=== PATIENT | female | born 1935 | race American Indian/Alaskan Native ===

== ENCOUNTER 2016-08-09 17:29 | Inpatient (IN) | payer MEDICARE ==
[2016-08-09 17:34] VITALS: BMI 16.6
--- NOTE | 2016-08-09 18:07 | ED PDOC ---
Arrival/HPI - General Historian: Patient <Sawyer Phipps - Last Filed: 08/09/16 19:44> - History of Present Illness Symptom Onset: Sudden Symptom Course: Improving Activities at Onset: Rest Context: Home <Samina Alejandro - Last Filed: 08/09/16 19:49> - General Chief Complaint: Syncope Time Seen by Provider: 08/09/16 17:47 - History of Present Illness Narrative History of Present Illness (Text): 08/09/16 18:04 This is an 80 yo F with an extensive PMH that includes HTN, HLD, afib on coumadin, renal cell cancer s/p nephrectomy that presents s/p witnessed syncopal episode. She states that she has been feeling weaker with decreased PO intake lately and this morning she stayed home from jehov[employer] witness to rest. She had friends visit her and while they were there she syncopized upon standing when getting out of bed. She states she remembers feeling dizzy with the room spinning. She also claims that she did not hit her head. Currently she feels back to baseline. Denies SEGUNDO, vision changes, numbness/tingling, chest pain, sob , nausea, vomiting or urinary symptoms. PMD: Amador Crum (Sawyer Phipps) Past Medical History - Provider Review Nursing Documentation Reviewed: Yes - Infectious Disease Hx of Infectious Diseases: None - Reproductive Menopause: Yes - Cardiac Hx Cardiac Disorders: Yes Hx Atrial Fibrillation: Yes Hx Hypertension: Yes - Pulmonary Hx Respiratory Disorders: No - Neurological Hx Neurological Disorder: No - HEENT Hx HEENT Disorder: No - Renal Hx Renal Disorder: Yes Hx Renal Cancer: Yes Other/Comment: Right nephrectomy - Endocrine/Metabolic Hx Endocrine Disorders: No - Hematological/Oncological Hx Blood Disorders: No - Integumentary Hx Dermatological Disorder: No - Musculoskeletal/Rheumatological Hx Arthritis: Yes - Gastrointestinal Hx Gastrointestinal Disorders: No - Genitourinary/Gynecological Hx Genitourinary Disorders: No - Psychiatric Hx Psychophysiologic Disorder: Yes Hx Anxiety: Yes Hx Substance Use: No - Surgical History Other/Comment: Right nephrectomy - Anesthesia Hx Anesthesia: Yes Hx Anesthesia Reactions: No Hx Malignant Hyperthermia: No <MoiseSawyer - Last Filed: 08/09/16 19:44> Family/Social History - Physician Review Nursing Documentation Reviewed: Yes Family/Social History: Unknown Family HX Smoking Status: Former Smoker Hx Alcohol Use: No Hx Substance Use: No <Sawyer Phipps - Last Filed: 08/09/16 19:44> Allergies/Home Meds <Sawyer Phipps - Last Filed: 08/09/16 19:44> <Samina Alejandro - Last Filed: 08/09/16 19:49> Allergies/Adverse Reactions: Allergies No Known Allergies Allergy (Verified 08/09/16 17:34) Home Medications: Home Meds Medication Instructions Recorded Confirmed Atorvastatin [Lipitor] 20 mg PO DAILY 02/12/15 08/09/16 Review of Systems - Review of Systems Constitutional: Normal. absent: Fevers Eyes: Normal. absent: Vision Changes, Eye Pain ENT: Normal Respiratory: Normal. absent: SOB, Cough Cardiovascular: Normal. absent: Chest Pain, Palpitations Gastrointestinal: Normal. absent: Abdominal Pain, Nausea, Vomiting Genitourinary Female: Normal. absent: Dysuria, Frequency Musculoskeletal: Normal Skin: Normal. absent: Rash, Pruritis Neurological: Normal. absent: Headache, Dizziness Endocrine: Normal Hemo/Lymphatic: Normal Psychiatric: Normal <Sawyer Phipps - Last Filed: 08/09/16 19:44> Physical Exam Vital Signs Reviewed: Yes Temperature: Afebrile Blood Pressure: Hypotensive Pulse: Regular Respiratory Rate: Normal Appearance: Positive for: Well-Appearing, Non-Toxic, Comfortable Pain Distress: None Mental Status: Positive for: Alert and Oriented X 3 - Systems Exam Head: Present: Atraumatic, Normocephalic Pupils: Present: PERRL Respiratory/Chest: Present: Clear to Auscultation, Good Air Exchange. No: Respiratory Distress Cardiovascular: Present: Regular Rate and Rhythm, Normal S1, S2 Abdomen: Present: Normal Bowel Sounds. No: Tenderness, Distention Upper Extremity: Present: NORMAL PULSES Lower Extremity: Present: NORMAL PULSES. No: Swelling Neurological: Present: Speech Normal, Motor Func Grossly Intact Skin: Present: Warm, Dry Psychiatric: Present: Alert, Oriented x 3 <Sawyer Phipps - Last Filed: 08/09/16 19:44> Medical Decision Making <Sawyer Phipps - Last Filed: 08/09/16 19:44> <Samina Alejandro - Last Filed: 08/09/16 19:49> ED Course and Treatment: 08/09/16 18:20 This is an 80 F with extensive PMH that presents s/p syncopal event. Pt hemodynamically stable and asymptomatic currently Plan: - Labs - CXR, EKG - Head CT - UA - IVF - Reassess and dispo EKG - NSR with 1st degree AV block, RBB, no sig changes from previous EKG 08/09/16 19:37 CXR - No acute infiltrates or pleural effusions. HGB low. Stool guaiac test negative but she reports she has had some dark stools recently. Ordered type and screen Elevated BUN/Cr as well Case discussed with PMD Dr Crum who agrees with admission for further work up. Will admit to telemetry. (Sawyer Phipps) Patient Seen With Resident: In agreement with resident note which contains more details about the patient. Patient was seen and evaluated with resident. Came up with plan and treatment together. 08/09/16 19:46 Patient with noted history of syncope - vitals are unremarkable and ekg is unchanged with no focal acute findings on exam. Labs show acute on chronic renal insufficiency with Hgb down to 8.2 from higher baseline. She is guaiac negative, as rectal was performed by resident Dr. Phipps. Patient is on IVF here in the emergency department. Type and screen sent for possible transfusion. Will admit for syncope, renal insufficiency, and anema. Discussed with Dr. Crum. (Samina Alejandro) - Lab Interpretations Lab Results: 08/09/16 18:40 08/09/16 18:40 Lab Results 08/09/16 18:40: TSH 3rd Generation 0.37 L 08/09/16 18:40: Sodium 143, Potassium 5.2 H, Chloride 104, Carbon Dioxide 28, Anion Gap 16, BUN 49 H, Creatinine 2.2 H, Est GFR ( Amer) 26, Est GFR ( Non-Af Amer) 21, Random Glucose 109, Calcium 9.5, Total Bilirubin 0.5, AST 26, ALT 23, Alkaline Phosphatase 73, Lactate Dehydrogenase 496, Total Creatine Kinase 45, Troponin I 0.05 D, NT-Pro-B Natriuret Pep 2060 H, Total Protein 8.3 , Albumin 4.1, Globulin 4.2, Albumin/Globulin Ratio 1.0 L, Lipase 232 08/09/16 18:40: Urine Color Light yellow, Urine Appearance Clear, Urine pH 6.0, Ur Specific Anderson 1.020, Urine Protein 100 H, Urine Glucose (UA) Negative, Urine Ketones Negative, Urine Blood Negative, Urine Nitrate Negative, Urine Bilirubin Negative, Urine Urobilinogen 0.2, Ur Leukocyte Esterase Moderate H, Urine RBC 2 - 5, Urine WBC 5 - 10, Ur Epithelial Cells 6 - 8, Urine Bacteria Mod 08/09/16 18:40: PT 12.7 H, INR 1.18 H, APTT 24.3 08/09/16 18:40: WBC 4.6 D, RBC 3.65, Hgb 8.2 L, Hct 26.5 L, MCV 72.6 L, MCH 22.5 L, MCHC 30.9 L, RDW 20.6 H, Plt Count 261, MPV 9.4, Gran % 67.5, Lymph % ( Auto) 20.9 L, Kershaw % (Auto) 8.5 H, Eos % (Auto) 2.4, Baso % (Auto) 0.7, Gran # 3.10, Lymph # 1.0 L, Kershaw # 0.4, Eos # 0.1, Baso # 0.03 - RAD Interpretation Radiology Orders: 08/09/16 18:01 HEAD W/O CONTRAST [CT] Stat CHEST PORTABLE [RAD] Stat - Medication Orders Current Medication Orders: Sodium Chloride (Sodium Chloride 0.9%) 1,000 mls @ 100 mls/hr IV .Q10H STA Stop: 08/10/16 05:33 Ceftriaxone Sodium (Rocephin 1 Gram Ivpb) 1 g in 100 mls @ 200 mls/hr IV ONCE STA PRN Reason: Protocol Stop: 08/09/16 20:04 Discontinued Medications Sodium Chloride (Sodium Chloride 0.9%) 500 mls @ 999 mls/hr IV .Q31M STA Stop: 08/09/16 18:45 Last Admin: 08/09/16 19:21 Dose: 999 mls/hr Disposition/Present on Arrival - Present on Arrival Any Indicators Present on Arrival: No History of DVT/PE: No History of Uncontrolled Diabetes: No Urinary Catheter: No History of Decub. Ulcer: No History Surgical Site Infection Following: None - Disposition Have Diagnosis and Disposition been Completed?: Yes Disposition Time: 19:43 Patient Plan: Telemetry <Sawyer Phipps - Last Filed: 08/09/16 19:44> - Present on Arrival Any Indicators Present on Arrival: No - Disposition Have Diagnosis and Disposition been Completed?: Yes Disposition Time: 19:30 Patient Plan: Admission, Telemetry <Samina Alejandro - Last Filed: 08/09/16 19:49> - Disposition Diagnosis: Syncope, Acute on chronic renal insufficiency, Anemia Disposition: HOSPITALIZED Patient Problems: Current Active Problems Problem Status Onset Syncope Acute Condition: FAIR
[2016-08-09] MEDS ORDERED: Sodium Chloride 0.9% 500 ML IV STA (18:15)
[2016-08-09 18:48] LABS: ADD MANUAL DIFF? NO
[2016-08-09 18:53] LABS: BASO # 0.03 K/mm3 (0.0-2.0); BASO % 0.7 % (0.0-3.0); EOS # 0.1 (0.0-0.7); EOS % 2.4 % (1.5-5.0); GRAN % 67.5 % (50.0-68.0); HEMATOCRIT 26.5 % (36.0-48.0); LYMPH % 20.9 % (22.0-35.0); MEAN CELL VOLUME 72.6 fL (80.0-105.0); MEAN CORPUSCULAR HEMOGLOBIN 22.5 pg (25.0-35.0); MEAN CORPUSCULAR HGB CONC 30.9 g/dl (31.0-37.0); MEAN PLATELET VOLUME 9.4 fl (7.0-11.0); MONO # 0.4 (0.1-0.6); MONO % 8.5 % (1.0-6.0); PLATELET COUNT 261 10^3/uL (120.0-450.0); RED CELL DISTRIBUTION WIDTH 20.6 % (11.5-14.5); WHITE BLOOD COUNT 4.6 10^3/ul (4.5-11.0)
[2016-08-09 18:54] LABS: URINE APPEARANCE CLEAR (CLEAR); URINE BILIRUBIN NEGATIVE (NEGATIVE); URINE BLOOD NEGATIVE (NEGATIVE); URINE COLOR LIGHT YELLOW (YELLOW); URINE GLUCOSE (UA) NEGATIVE (NEGATIVE); URINE KETONE NEGATIVE (NEGATIVE); URINE LEUKOCYTE ESTERASE MODERATE Leu/uL (NEGATIVE); URINE PROTEIN 100 mg/dL (<30 mg/dL); URINE UROBILINOGEN 0.2 E.U./dL (<1 E.U./dL)
[2016-08-09 19:04] LABS: INR 1.18 (0.93-1.08); PARTIAL THROMBOPLASTIN TIME 24.3 Seconds (23.7-30.8)
[2016-08-09 19:05] LABS: BILIRUBIN,TOTAL 0.5 mg/dL (0.2-1.3); CALCIUM 9.5 mg/dL (8.4-10.5); POTASSIUM 5.2 mmol/L (3.6-5.0); TOTAL PROTEIN 8.3 g/dL (5.8-8.3)
[2016-08-09 19:16] LABS: TROPONIN I 0.05 ng/mL
[2016-08-09 19:17] LABS: URINE BACTERIA MOD (NEG)
[2016-08-09] MEDS ORDERED: Sodium Chloride 0.9% 1,000 ML IV STA (19:34)
[2016-08-09] MEDS ORDERED: cefTRIAXone 1 gm 1 G/100 ML BAG IV STA (19:35)
--- NOTE | 2016-08-10 00:56 | CP.PCM.PN ---
Subjective - Date & Time of Evaluation Date of Evaluation: 08/10/16 Time of Evaluation: 00:48 - Subjective Subjective: Patient was seen at bedside for her complaint of left leg pain. Complains of left mid thigh pain, mild pain, has been present for about one year ,has been getting oxycodone for pain, from her doctor, . Gives history of arthritis. Denies history of injury to left leg. Has no other complaints. Medical record was reviewed. This 80 year old woman is here after a syncopal episode, weakness, dizziness. Has PMH of HTN, atrial fibrillation, HLD, renal cell cancer, on coumadin, rightnephrectomy,arthritis,dyslipidemia,CVA. Objective - Vital Signs/Intake and Output Vital Signs (last 24 hours): Temp Pulse Resp BP Pulse Ox 97.8 F 70 16 118/63 100 08/09/16 17:58 08/09/16 22:38 08/09/16 22:38 08/09/16 22:38 08/09/16 22:38 - Medications Medications: Current Medications Sodium Chloride (Sodium Chloride 0.9%) 1,000 mls @ 100 mls/hr IV .Q10H STA Stop: 08/10/16 05:33 Last Admin: 08/09/16 20:09 Dose: 100 mls/hr - Labs Labs: PT 12.7 Seconds (9.9-11.8) H 08/09/16 18:40 INR 1.18 (0.93-1.08) H 08/09/16 18:40 APTT 24.3 Seconds (23.7-30.8) 08/09/16 18:40 - Constitutional Appears: Well, No Acute Distress - Head Exam Head Exam: ATRAUMATIC, NORMAL INSPECTION, NORMOCEPHALIC - Eye Exam Eye Exam: Normal appearance - ENT Exam ENT Exam: Normal External Ear Exam - Neck Exam Neck Exam: Normal Inspection - Respiratory Exam Respiratory Exam: NORMAL BREATHING PATTERN - Cardiovascular Exam Cardiovascular Exam: absent: JVD - GI/Abdominal Exam GI & Abdominal Exam: absent: Distended - Rectal Exam Rectal Exam: Deferred - Extremities Exam Extremities Exam: Normal Inspection. absent: Calf Tenderness, Pedal Edema Additional comments: Left thigh- non tender. Left calf - non tender. Left dorsalis pedis, posterior tibialis anterior pulse good. Skin warm. - Back Exam Back Exam: NORMAL INSPECTION - Neurological Exam Neurological Exam: Alert, Oriented x3 - Psychiatric Exam Psychiatric exam: Normal Affect, Normal Mood - Skin Skin Exam: Normal Color Assessment and Plan - Assessment and Plan (Free Text) Assessment: Left leg pain. Syncope. Arthritis. HTN. HLD. Atrial fibrillation. Renal cell cancer. Plan: Tylenol 650 mg po stat. More potent analgesic if that does not help. Continue present management.
[2016-08-10 01:41] LABS: TROPONIN I 0.06 ng/mL
--- NOTE | 2016-08-10 07:31 | CT ---
PROCEDURE: CT HEAD WITHOUT CONTRAST. HISTORY: Syncope COMPARISON: None available. TECHNIQUE: Axial computed tomography images were obtained through the head/brain without intravenous contrast. Radiation dose: Total exam DLP = 774.23 mGy-cm. This CT exam was performed using one or more of the following dose reduction techniques: Automated exposure control, adjustment of the mA and/or kV according to patient size, and/or use of iterative reconstruction technique. FINDINGS: HEMORRHAGE: No intracranial hemorrhage. BRAIN: There are mild chronic microangiopathic changes. There is no mass, mass effect or abnormal extra-axial fluid collection. There are coarse atherosclerotic calcifications in the cavernous carotid arteries. VENTRICLES: There is mild age-related global parenchymal volume loss and proportionate enlargement of the ventricles and cortical sulci. CALVARIUM: The skull base and calvarium are normal. PARANASAL SINUSES: There is a retention cyst/ polyp in the right maxillary sinus. The remaining included paranasal sinuses are predominantly clear. MASTOID AIR CELLS: Predominantly clear. OTHER FINDINGS: None. IMPRESSION: No acute intracranial abnormality. Age-related involutional changes and mild chronic microangiopathic changes. A preliminary report was provided by [facility].
--- NOTE | 2016-08-10 09:01 | RAD ---
HISTORY: Syncope COMPARISON: 04/09/2016. FINDINGS: LUNGS: The lungs are well inflated and clear. PLEURA: No significant pleural effusion identified, no pneumothorax apparent. CARDIOVASCULAR: There is moderate cardiomegaly. OSSEOUS STRUCTURES: No significant abnormalities. VISUALIZED UPPER ABDOMEN: Normal. OTHER FINDINGS: None. IMPRESSION: No active pulmonary disease. Moderate cardiomegaly.
[2016-08-10] MEDS: cefTRIAXone 1 gm 1 GM/100 ML BAG IVPB SCH (10:26)
[2016-08-10] MEDS ORDERED: Sodium Chloride 0.45% 1,000 ML IV SCH (10:30)
[2016-08-10 11:53] LABS: MEAN CELL VOLUME 72.9 fL (80.0-105.0); MEAN CORPUSCULAR HEMOGLOBIN 22.3 pg (25.0-35.0); MEAN CORPUSCULAR HGB CONC 30.6 g/dl (31.0-37.0); MEAN PLATELET VOLUME 9.9 fl (7.0-11.0); PLATELET COUNT 216 10^3/uL (120.0-450.0); RED CELL DISTRIBUTION WIDTH 21.7 % (11.5-14.5); WHITE BLOOD COUNT 4.6 10^3/ul (4.5-11.0)
[2016-08-10] MEDS: Sodium Chloride 0.45% 1,000 ML IV SCH (12:00)
[2016-08-10 12:01] LABS: HEMATOCRIT 22.9 % (36.0-48.0)
[2016-08-10 12:06] LABS: INR 1.14 (0.93-1.08)
[2016-08-10 12:10] LABS: ALB/GLOB RATIO 0.9 (1.1-1.8); BILIRUBIN,TOTAL 0.4 mg/dL (0.2-1.3); CALCIUM 8.8 mg/dL (8.4-10.5); POTASSIUM 4.5 mmol/L (3.6-5.0); TOTAL PROTEIN 7.3 g/dL (5.8-8.3)
[2016-08-10 13:32] LABS: RETIC% 1.84 % (0.5-1.5)
--- NOTE | 2016-08-10 13:52 | CARD ---
APPROVED REPORT EKG Measurement Heart [id number] DC 250P99 [id number] <Conclusion> Sinus rhythm with 1st degree AV block Right bundle branch block Left anterior fascicular block Bifascicular block Left ventricular hypertrophy with repolarization abnormality Anteroseptal infarct, age undetermined Abnormal ECG
[2016-08-10 19:55] LABS: FOLATE 9.7 ng/mL
--- NOTE | 2016-08-10 20:51 | CP.PCM.HP ---
History of Present Illness - History of Present Illness History of Present Illness: Internal Medicine/Infectious Disease H&P: August 10, 2016 History of Present Illness: 80 yo AA female with syncopal episode at home witnessed in front of friends. The patient found to be anemic in hospital. Unclear if the patient is taking her medications at home. The patient has worsening signs of dementia. It is known that she refuses her memory medications at home. She live alone but had family nearby. Transfused two units of PRBCs today. PMHx: Hypertension, Anxiety, history of renal cancer/mass, sciatica, hypercholesterolemia, prior tobacco use history, atrial fibrillation. Last hospitalization showed ventricular fibrillation although it appears that occurred only once. Mass in right kidney that led to nephrectomy done by Dr. Hannon several years ago. PSHx: Nephrectomy, right side Allergies: NKDA Social Hx: No recent tobacco, EtOH, or illicit drug use. Recent loss of her brother ( occurred almost a year ago). Prior tobacco user. Active Medications Atorvastatin Calcium (Lipitor) 20 mg PO DIN [facility] Last Admin: 08/10/16 16:55 Dose: 20 mg Donepezil HCl (Aricept) 10 mg PO HS ISAI Famotidine (Pepcid) 40 mg PO HS ISAI Ceftriaxone Sodium (Rocephin 1 Gram Ivpb) 1 gm in 100 mls @ 100 mls/hr IVPB DAILY ISAI PRN Reason: Protocol Last Admin: 08/10/16 10:26 Dose: 100 mls/hr Sodium Chloride (Sodium Chloride 0.45%) 1,000 mls @ 70 mls/hr IV .[id number] [facility] Last Admin: 08/10/16 12:00 Dose: 70 mls/hr Meclizine HCl (Antivert) 12.5 mg PO BID PRN PRN Reason: Dizziness Last Admin: 08/10/16 10:26 Dose: 12.5 mg Metoprolol Tartrate (Lopressor) 50 mg PO BID [facility] Last Admin: 08/10/16 10:37 Dose: Not Given Family Hx: CAD in multiple family members ROS: no fevers, chills, nausea, vomiting, diarrhea, headaches, dizziness, chest pain , abdominal pain, melena, hematuria, hematemesis, hematochezia, SOB, wheezing, vision loss, loss of consciousness, hearing loss. She has anxiety. Present on Admission - Present on Admission Any Indicators Present on Admission: No History of DVT/PE: No History of Uncontrolled Diabetes: No Urinary Catheter: No Decubitus Ulcer Present: No - Notes: Notes:: nephrectomy Review of Systems - Review of Systems Systems not reviewed;Unavailable: Altered Mental Status Past Patient History - Infectious Disease Hx of Infectious Diseases: None - Tetanus Immunizations Tetanus Immunization: >10 years Ago - Past Medical History & Family History Past Medical History?: Yes - Past Social History Smoking Status: Former Smoker Chewing Tobacco Use: No Cigar Use: No Alcohol: None Drugs: Denies - CARDIAC Hx Cardiac Disorders: Yes Hx Hypertension: Yes - PULMONARY Hx Respiratory Disorders: No - NEUROLOGICAL Hx Neurological Disorder: No - HEENT Hx HEENT Problems: No - RENAL Hx Chronic Kidney Disease: Yes Hx Renal (Kidney) Cancer: Yes Other/Comment: Right nephrectomy - ENDOCRINE/METABOLIC Hx Endocrine Disorders: No - HEMATOLOGICAL/ONCOLOGICAL Hx Blood Disorders: No - INTEGUMENTARY Hx Dermatological Problems: No - MUSCULOSKELETAL/RHEUMATOLOGICAL Hx Falls: No - GASTROINTESTINAL Hx Gastrointestinal Disorders: No - GENITOURINARY/GYNECOLOGICAL Hx Genitourinary Disorders: No - PSYCHIATRIC Hx Psychophysiologic Disorder: Yes Hx Anxiety: Yes Hx Substance Use: No - SURGICAL HISTORY Other/Comment: Right nephrectomy - ANESTHESIA Hx Anesthesia: Yes Hx Anesthesia Reactions: No Hx Malignant Hyperthermia: No Meds Allergies/Adverse Reactions: Allergies Allergy/AdvReac Type Severity Reaction Status Date / Time No Known Allergies Allergy Verified 08/09/16 17:34 Physical Exam - Constitutional Appears: Non-toxic, No Acute Distress, Confused, Chronically Ill - Head Exam Head Exam: ATRAUMATIC, NORMOCEPHALIC - Eye Exam Eye Exam: EOMI, PERRL Pupil Exam: NORMAL ACCOMODATION, PERRL - ENT Exam ENT Exam: Mucous Membranes Moist, Normal External Ear Exam, TM's Normal Bilaterally - Neck Exam Neck exam: Negative for: Lymphadenopathy - Respiratory Exam Respiratory Exam: Clear to Auscultation Bilateral, NORMAL BREATHING PATTERN. absent: Rales, Rhonchi, Wheezes - Cardiovascular Exam Cardiovascular Exam: REGULAR RHYTHM, RRR, +S1, +S2 - GI/Abdominal Exam GI & Abdominal Exam: Normal Bowel Sounds, Soft. absent: Distended, Tenderness - Extremities Exam Extremities exam: Positive for: full ROM, normal inspection - Neurological Exam Neurological exam: Alert, CN II-XII Intact, Normal Gait, Oriented x3 - Psychiatric Exam Psychiatric exam: Normal Affect, Normal Mood - Skin Skin Exam: Intact, Normal Color Results - Vital Signs Recent Vital Signs: Last Vital Signs Temp 98.5 F 08/10/16 18:53 Pulse 72 08/10/16 18:53 Resp 18 08/10/16 18:53 BP 141/70 08/10/16 18:53 Pulse Ox 100 08/10/16 05:48 - Labs Result Diagrams: 08/10/16 11:20 08/10/16 11:20 Labs: Laboratory Results - last 24 hr 08/09/16 08/09/16 08/10/16 20:30 21:55 00:59 WBC RBC Hgb Hct MCV MCH MCHC RDW Plt Count MPV Retic Count PT INR Sodium Potassium Chloride Carbon Dioxide Anion Gap BUN Creatinine Est GFR ( Amer) Est GFR (Non-Af Amer) Random Glucose Calcium Ferritin Total Bilirubin AST ALT Alkaline Phosphatase Lactate Dehydrogenase 457 Total Creatine Kinase 42 Troponin I 0.06 NT-Pro-B Natriuret Pep Total Protein Albumin Globulin Albumin/Globulin Ratio Vitamin B12 Folate Digoxin 2.0 Blood Type AB POSITIVE Antibody Screen Negative Crossmatch See Detail BBK History Checked Patient has bt 08/10/16 08/10/16 08/10/16 11:20 11:20 11:20 WBC 4.6 RBC 3.14 L Hgb 7.0 L Hct 22.9 L MCV 72.9 L MCH 22.3 L MCHC 30.6 L RDW 21.7 H Plt Count 216 MPV 9.9 Retic Count 1.84 H PT 12.3 H INR 1.14 H Sodium 141 Potassium 4.5 Chloride 107 Carbon Dioxide 24 Anion Gap 15 BUN 40 H Creatinine 1.9 H Est GFR ( Amer) 31 Est GFR (Non-Af Amer) 25 Random Glucose 148 H Calcium 8.8 Ferritin 9.1 Total Bilirubin 0.4 AST 22 ALT 24 Alkaline Phosphatase 65 Lactate Dehydrogenase Total Creatine Kinase Troponin I NT-Pro-B Natriuret Pep 2050 H Total Protein 7.3 Albumin 3.5 Globulin 3.8 Albumin/Globulin Ratio 0.9 L Vitamin B12 443 Folate 9.7 Digoxin Blood Type Antibody Screen Crossmatch BBK History Checked Assessment & Plan - Assessment and Plan (Free Text) Assessment: 80 yo AA female with failing memory at home presenting with witnessed syncopal episode at home in front of friends. Brought to [facility]. Patient found to be anemic with loss of a few pounds compared to visit in the office a few weeks ago. Patient with known renal insufficiency following with Dr. Garduno/Gamaliel. Anemia and previous renal mass followed by Heme/Onc Dr. Sanchez. Syncope evaluation with Dr. Olviera of Neurology and Dr. Fonseca of Cardiology. 2 units of PRBCs given for current anemia. Patient is significant dementia history that has worsened in the past 6-9 months. Patient known to miss doses of medication and sometimes takes medications twice. She lives alone but with some family nearby. - Date & Time Date: 08/10/16 Decision To Admit - Pt Status Changed To: Hospital Disposition Of: Inpatient Admission - Admit Certification Admit to Inpatient:: After my assessment, the patient will require hospitalization for at least two midnights. This is because of the severity of symptoms shown, intensity of services needed, and/or the medical risk in this patient being treated as an outpatient. - . Bed Request Type: Med/Surg Admitting Physician: Amador Crum
[2016-08-11] MEDS: Sodium Chloride 0.45% 1,000 ML IV SCH ×4 (05:13→23:53)
[2016-08-11 07:05] LABS: HEMATOCRIT 30.8 % (36.0-48.0); MEAN CELL VOLUME 75.9 fL (80.0-105.0); MEAN CORPUSCULAR HEMOGLOBIN 23.9 pg (25.0-35.0); MEAN CORPUSCULAR HGB CONC 31.5 g/dl (31.0-37.0); RED CELL DISTRIBUTION WIDTH 20.6 % (11.5-14.5); WHITE BLOOD COUNT 6.2 10^3/ul (4.5-11.0)
[2016-08-11 07:10] LABS: CALCIUM 8.6 mg/dL (8.4-10.5); POTASSIUM 4.8 mmol/L (3.6-5.0)
--- NOTE | 2016-08-11 08:44 | CP.PCM.CON ---
History of Present Illness - History of Present Illness History of Present Illness: 80 year old female with a history of HTN, HL, afib, renal cell carcinoma s/p surgery, admitted with syncopal episode, found to be anemic. She reports to feeling dizzy while getting ready for worship and eventually passed out for a few seconds. Her friends witnessed the event and called EMS. In the ER she was found to have a hgb of 7 and was transfused PRBC. She denies abnormal bleeding and bruising but notes her stools are sometimes black. She is also more forgetful and is unsure if she is still taking blood thinners for her afib. Past medical history: HTN, HL, afib on coumadin, renal cell carcinoma s/p surgery Past surgical history: Renal cell carcinoma resection Family history: Denies hematologic and oncologic problems Social history: Denies tobacco, alcohol, and illicit drug use. Allergies: NKA Review of systems: All remaining review of systems including HEENT, cardiovascular, respiratory, gastrointestinal, genitourinary, musculoskeletal, dermatologic, neurologic, and psychiatric are negative unless mentioned in the HPI. Past Patient History - Infectious Disease Hx of Infectious Diseases: None - Tetanus Immunizations Tetanus Immunization: >10 years Ago - Past Medical History & Family History Past Medical History?: Yes - Past Social History Smoking Status: Former Smoker Chewing Tobacco Use: No Cigar Use: No Alcohol: None Drugs: Denies - CARDIAC Hx Cardiac Disorders: Yes Hx Hypertension: Yes - PULMONARY Hx Respiratory Disorders: No - NEUROLOGICAL Hx Neurological Disorder: No - HEENT Hx HEENT Problems: No - RENAL Hx Chronic Kidney Disease: Yes Hx Renal (Kidney) Cancer: Yes Other/Comment: Right nephrectomy - ENDOCRINE/METABOLIC Hx Endocrine Disorders: No - HEMATOLOGICAL/ONCOLOGICAL Hx Blood Disorders: No - INTEGUMENTARY Hx Dermatological Problems: No - MUSCULOSKELETAL/RHEUMATOLOGICAL Hx Falls: No - GASTROINTESTINAL Hx Gastrointestinal Disorders: No - GENITOURINARY/GYNECOLOGICAL Hx Genitourinary Disorders: No - PSYCHIATRIC Hx Psychophysiologic Disorder: Yes Hx Anxiety: Yes Hx Substance Use: No - SURGICAL HISTORY Other/Comment: Right nephrectomy - ANESTHESIA Hx Anesthesia: Yes Hx Anesthesia Reactions: No Hx Malignant Hyperthermia: No Meds Allergies/Adverse Reactions: Allergies Allergy/AdvReac Type Severity Reaction Status Date / Time No Known Allergies Allergy Verified 08/09/16 17:34 - Medications Medications: Current Medications Atorvastatin Calcium (Lipitor) 20 mg PO DIN [facility] Last Admin: 08/10/16 16:55 Dose: 20 mg Digoxin (Lanoxin) 0.125 mg PO 1400 [facility] Donepezil HCl (Aricept) 10 mg PO HS [facility] Last Admin: 08/10/16 22:14 Dose: 10 mg Famotidine (Pepcid) 40 mg PO HS [facility] Last Admin: 08/10/16 22:14 Dose: 40 mg Ceftriaxone Sodium (Rocephin 1 Gram Ivpb) 1 gm in 100 mls @ 100 mls/hr IVPB DAILY [facility] PRN Reason: Protocol Last Admin: 08/10/16 10:26 Dose: 100 mls/hr Sodium Chloride (Sodium Chloride 0.45%) 1,000 mls @ 70 mls/hr IV .[id number] [facility] Last Admin: 08/11/16 05:13 Dose: 70 mls/hr Meclizine HCl (Antivert) 12.5 mg PO BID PRN PRN Reason: Dizziness Last Admin: 08/10/16 10:26 Dose: 12.5 mg Metoprolol Tartrate (Lopressor) 50 mg PO BID [facility] Last Admin: 08/10/16 10:37 Dose: Not Given Oxycodone/Acetaminophen (Percocet 5/325 Mg Tab) 1 tab PO Q6 PRN PRN Reason: Pain, moderate (4-7) Stop: 08/14/16 12:01 Physical Exam - Head Exam Head Exam: ATRAUMATIC - Eye Exam Eye Exam: Normal appearance - ENT Exam ENT Exam: Mucous Membranes Dry - Respiratory Exam Respiratory Exam: NORMAL BREATHING PATTERN - Cardiovascular Exam Cardiovascular Exam: +S1, +S2 - GI/Abdominal Exam GI & Abdominal Exam: Normal Bowel Sounds - Extremities Exam Extremities exam: Positive for: normal inspection - Neurological Exam Neurological exam: Oriented x3 - Psychiatric Exam Psychiatric exam: Normal Affect, Normal Mood - Skin Skin Exam: Warm Results - Vital Signs Recent Vital Signs: Last Vital Signs Temp 98.4 F 08/11/16 05:53 Pulse 104 H 08/11/16 05:53 Resp 18 08/11/16 05:53 BP 138/78 08/11/16 05:53 Pulse Ox 99 08/11/16 05:53 - Labs Result Diagrams: 08/12/16 06:30 08/12/16 06:30 Labs: Laboratory Results - last 24 hr 08/09/16 08/10/16 08/10/16 21:55 11:20 11:20 WBC 4.6 RBC 3.14 L Hgb 7.0 L Hct 22.9 L MCV 72.9 L MCH 22.3 L MCHC 30.6 L RDW 21.7 H Plt Count 216 MPV 9.9 Retic Count 1.84 H PT 12.3 H INR 1.14 H Sodium Potassium Chloride Carbon Dioxide Anion Gap BUN Creatinine Est GFR ( Amer) Est GFR (Non-Af Amer) Random Glucose Calcium Ferritin Total Bilirubin AST ALT Alkaline Phosphatase NT-Pro-B Natriuret Pep Total Protein Albumin Globulin Albumin/Globulin Ratio Vitamin B12 Folate Blood Type AB POSITIVE Antibody Screen Negative Crossmatch See Detail BBK History Checked Patient has bt 08/10/16 08/11/16 08/11/16 11:20 06:40 06:40 WBC 6.2 D RBC 4.06 Hgb 9.7 L Hct 30.8 L MCV 75.9 L MCH 23.9 L MCHC 31.5 RDW 20.6 H Plt Count 164 MPV 9.0 Retic Count PT INR Sodium 141 140 Potassium 4.5 4.8 Chloride 107 110 H Carbon Dioxide 24 22 Anion Gap 15 13 BUN 40 H 32 H Creatinine 1.9 H 1.6 H Est GFR ( Amer) 31 38 Est GFR (Non-Af Amer) 25 31 Random Glucose 148 H 96 Calcium 8.8 8.6 Ferritin 9.1 Total Bilirubin 0.4 AST 22 ALT 24 Alkaline Phosphatase 65 NT-Pro-B Natriuret Pep 2050 H Total Protein 7.3 Albumin 3.5 Globulin 3.8 Albumin/Globulin Ratio 0.9 L Vitamin B12 443 Folate 9.7 Blood Type Antibody Screen Crossmatch BBK History Checked Assessment & Plan (1) Anemia Assessment and Plan: work up consistent with iron deficiency likely occult GI bood loss; GI evaluation element of CKD s/p PRBC transfusion will start parenteral iron Thank you for this interesting consult. Status: Acute
[2016-08-11] MEDS: Oxycodone/Acetaminophen 5/325 mg Tab PO PRN ×2 (08:47→17:29)
[2016-08-11] MEDS: cefTRIAXone 1 gm 1 GM/100 ML BAG IVPB SCH (10:29)
[2016-08-11] MEDS ORDERED: Oxycodone/Acetaminophen 5/325 mg Tab PO SCH (12:00)
--- NOTE | 2016-08-11 13:36 | CON ---
DATE: 08/11/2016 HISTORY OF PRESENT ILLNESS: The patient is an 80-year-old woman who had an episode of dizziness with syncope. This is after a day of no p.o. intake including fluids. PAST MEDICAL HISTORY: Includes atrial fibrillation treated with anticoagulation, history of hyperten mariam, as well as a history of renal cell cancer treated with nephrectomy. She has had multiple synco pal episodes in the past. Workup has been nonfruitful. Her past medical history is notable for an echocardiogram that shows a dilated cardiomyopathy with an ejection fraction of 40% to 45% over a year ago. There is significant pulmonary hypertension noted. The patient denies chest pain, denies shortness of breath, no edema in the lower extremities. SOCIAL HISTORY: Without smoking. REVIEW OF SYSTEMS: A 14-point review of systems was reviewed. No cardiac symptomatology noted. PHYSICAL EXAMINATION: VITAL SIGNS: Blood pressure is 131/67, heart rate is in the 70s, atrial fibrillation. NECK: Negative JVD. LUNGS: Without rales. HEART: Reveals S1, S2. EXTREMITIES: Without edema. There are some orthostatic changes noted. LABORATORIES: Reveal hemoglobin of 9.7. Chemistries: The BUN and creatinine was 49/2.2 on admissio n and has improved with hydration to 33/1.6. IMPRESSION: 1. Syncope. 2. Likely dehydration. 3. Cardiomyopathy. 4. History of renal cell cancer. 5. Atrial fibrillation. 6. Hypertension. Given these findings, I have discussed with the patient and family about the need for hydration despi te poor p.o. intake. We will obtain an echocardiogram to evaluate the left ventricular function and rule out left ventricular outflow obstruction. Oswald Fonseca MD cc: [id number] TT: 08/11/2016 13:36:08 Confirmation # [id number] Dictation # [id number] kaela
--- NOTE | 2016-08-11 13:38 | CP.PCM.CON ---
History of Present Illness - History of Present Illness History of Present Illness: Initial Nephrology Consultation: Assessment: Acute kidney injury likely hemodynamic: improved Chronic Kidney Disease Stage 3 with ? proteinuria possibly due to HTN, age related decline, and s/p Rt nephrectomy due to hx of RCC Anemia s/p PRBC, Hypertension Plan Hypertension control with meds as ordered. Patient not on ACEI/ARB but BP controlled at this time Monitor Input/Output, daily weights and renal function with basic metabolic panel She is already on statin Check spot protein/creatinine and albumin/creatinine ratio Check for 25-OH vitamin D, iPTH, phosphorus level anemia management as per heme/onc. check iron indices Dose meds/antibiotics for reduced GFR. Avoid fleets enema/magnesium based laxatives. Avoid nephrotoxins/NSAIDs/ iodinated contrast (unless needed emergently) Further work up for anemia/dizziness as per primary team Thanks for allowing me to participate in care of your patient. Will follow patient with you. Please call if any Qs Dr Jt Lemon Office: [phone] Chief Complaint; dizziness HPI: Pt is a 80 y/o F with hx of hypertension (20 years) , renal cell cancer s/ p unilateral total nephrectomy, CKD stage 3 with baseline cr 1.4-1.7 since 2017 , anemia, A fib came with anemia and dizziness ? syncope. found to have anemia and got PRBC transfusion renal consult for elevated creatinine eval. Denies chest pain, palpitation, shortness of breath, leg swelling Denies blood or bubbles in urine denies NSAIDs. she feels better now. ROS: Constitutional Symptoms: Denies fever. No chills. No Recent Weight Changes Eyes: denies change in vision, denies watery eyes, denies double vision Ears/Nose/Mouth/Throat: Denies Abnormal Taste. No Bad breath or Bad Taste. Cardiovascular: No chest pain. There is no shortness of breath. No palpitations. Pulmonary: No shortness of breath or cough. Gastrointestinal: denies abdominal pain No nausea. No vomiting. Denies change in bowel habits. Denies Bleeding Genitourinary: No Change in force of strain when urinating. No increase in urinary frequency. No pain while urinating. Denies blood in urine. Neurological: Denies headaches. felt dizzy Dermatological: No Rash or Bruising or ulcers. Endocrine: had Fatigue.tiredness on wednesday and denies Heat/Cold Intolerance. Physical Examination: General Appearance: Comfortable, in no acute respiratory distress, co-operative Vitals reviewed and noted as below Head; Atraumatic, normocephalic ENT: no ulcers no thrush. Tongue is midline. Oropharynx: no rash or ulcers. EYES: Pupils are equal, round and reactive to light accommodation. Eye muscles and extraocular movement intact. Sclera is anicteric. Neck; supple no lymphadenopathy, no thyromegaly or bruit. has neck collar Lungs: Normal respiratory rate/effort. Breath sounds bilateral equal and clear Heart: Normal rate. s1s2 normal. No rub or gallop. Extremities:no edema. No varicose veins Neurological: Patient is Ao x 3 no focal deficit Skin: Warm and dry. Normal turgor. No rash. Palpitation: Normal elasticity for age Abdomen: Abdomen is soft. Bowel sounds +. There is no abdominal tenderness, no guarding/rigidity or organomegaly. Psych: normal insight and normal affect/mood MSK: no joint tenderness or swelling. Digits and nails normal, no deformity : kidney or bladder not palpable Labs/imaging reviewed. Past medical history, past surgical history, family history, social history, allergy reviewed and noted as below work up: CT head and CXR unremarkable BNP 2049 UA: [address] 2017: s/p Rt nephrectomy, left kidney unremarkable Past Patient History - Infectious Disease Hx of Infectious Diseases: None - Tetanus Immunizations Tetanus Immunization: >10 years Ago - Past Medical History & Family History Past Medical History?: Yes - Past Social History Smoking Status: Former Smoker Chewing Tobacco Use: No Cigar Use: No Alcohol: None Drugs: Denies - CARDIAC Hx Cardiac Disorders: Yes Hx Hypertension: Yes - PULMONARY Hx Respiratory Disorders: No - NEUROLOGICAL Hx Neurological Disorder: No - HEENT Hx HEENT Problems: No - RENAL Hx Chronic Kidney Disease: Yes Hx Renal (Kidney) Cancer: Yes Other/Comment: Right nephrectomy - ENDOCRINE/METABOLIC Hx Endocrine Disorders: No - HEMATOLOGICAL/ONCOLOGICAL Hx Blood Disorders: No - INTEGUMENTARY Hx Dermatological Problems: No - MUSCULOSKELETAL/RHEUMATOLOGICAL Hx Falls: No - GASTROINTESTINAL Hx Gastrointestinal Disorders: No - GENITOURINARY/GYNECOLOGICAL Hx Genitourinary Disorders: No - PSYCHIATRIC Hx Psychophysiologic Disorder: Yes Hx Anxiety: Yes Hx Substance Use: No - SURGICAL HISTORY Other/Comment: Right nephrectomy - ANESTHESIA Hx Anesthesia: Yes Hx Anesthesia Reactions: No Hx Malignant Hyperthermia: No Meds Allergies/Adverse Reactions: Allergies Allergy/AdvReac Type Severity Reaction Status Date / Time No Known Allergies Allergy Verified 08/09/16 17:34 - Medications Medications: Current Medications Atorvastatin Calcium (Lipitor) 20 mg PO DIN [facility] Last Admin: 08/10/16 16:55 Dose: 20 mg Digoxin (Lanoxin) 0.125 mg PO 1400 [facility] Docusate Sodium (Colace) 100 mg PO BID [facility] Donepezil HCl (Aricept) 10 mg PO HS [facility] Last Admin: 08/10/16 22:14 Dose: 10 mg Famotidine (Pepcid) 40 mg PO HS [facility] Last Admin: 08/10/16 22:14 Dose: 40 mg Ceftriaxone Sodium (Rocephin 1 Gram Ivpb) 1 gm in 100 mls @ 100 mls/hr IVPB DAILY [facility] PRN Reason: Protocol Last Admin: 08/11/16 10:29 Dose: 100 mls/hr Sodium Chloride (Sodium Chloride 0.45%) 1,000 mls @ 70 mls/hr IV .[id number] [facility] Last Admin: 08/11/16 05:13 Dose: 70 mls/hr Iron Sucrose 200 mg/ Sodium (Chloride) 110 mls @ 110 mls/hr IVPB DAILY [facility] Stop: 08/16/16 10:01 Last Admin: 08/11/16 10:29 Dose: 110 mls/hr Meclizine HCl (Antivert) 12.5 mg PO BID PRN PRN Reason: Dizziness Last Admin: 08/10/16 10:26 Dose: 12.5 mg Metoprolol Tartrate (Lopressor) 50 mg PO BID [facility] Last Admin: 08/11/16 10:30 Dose: 50 mg Oxycodone/Acetaminophen (Percocet 5/325 Mg Tab) 1 tab PO Q6 PRN PRN Reason: Pain, moderate (4-7) Stop: 08/14/16 12:01 Last Admin: 08/11/16 08:47 Dose: 1 tab Pantoprazole Sodium (Protonix Ec Tab) 40 mg PO ACB [facility] Results - Vital Signs Recent Vital Signs: Last Vital Signs Temp 98 F 08/11/16 12:00 Pulse 71 08/11/16 12:00 Resp 20 08/11/16 12:00 BP 131/67 08/11/16 12:00 Pulse Ox 99 08/11/16 05:53 - Labs Result Diagrams: 08/11/16 06:40 08/11/16 06:40 Labs: Laboratory Results - last 24 hr 08/09/16 08/10/16 08/10/16 21:55 11:20 11:20 WBC RBC Hgb Hct MCV MCH MCHC RDW Plt Count MPV Retic Count 1.84 H Sodium Potassium Chloride Carbon Dioxide Anion Gap BUN Creatinine Est GFR ( Amer) Est GFR (Non-Af Amer) Random Glucose Calcium Ferritin 9.1 Vitamin B12 443 Folate 9.7 Blood Type AB POSITIVE Antibody Screen Negative Crossmatch See Detail BBK History Checked Patient has bt 08/11/16 08/11/16 06:40 06:40 WBC 6.2 D RBC 4.06 Hgb 9.7 L Hct 30.8 L MCV 75.9 L MCH 23.9 L MCHC 31.5 RDW 20.6 H Plt Count 164 MPV 9.0 Retic Count Sodium 140 Potassium 4.8 Chloride 110 H Carbon Dioxide 22 Anion Gap 13 BUN 32 H Creatinine 1.6 H Est GFR ( Amer) 38 Est GFR (Non-Af Amer) 31 Random Glucose 96 Calcium 8.6 Ferritin Vitamin B12 Folate Blood Type Antibody Screen Crossmatch BBK History Checked
[2016-08-11] MEDS: Digoxin 125 mcg (0.125 mg) Tab PO SCH (14:23)
--- NOTE | 2016-08-11 17:38 | CON ---
DATE: 08/11/2016 CHIEF COMPLAINT: Syncope. HISTORY OF PRESENT ILLNESS: This is an 80-year-old woman, -Cypriot, history of hypertension for 20 years, renal cell cancer, status post unilateral nephrectomy, chronic kidney disease stage III , baseline creatinine 1.4 to 1.7 since 2017, history of anemia, AFib. Came with dizziness and a ques tionable syncopal event. Found to have low hemoglobin of 7. Status post transfusion and is now at 9 .7. She has history of cardiomyopathy with an EF of 40% to 45% and transient drop in blood pressures . She had some transient cerebral hypoperfusion looking at her vital signs currently. CT head showe d no acute intracranial abnormality. She is moving around, getting transfused and she was slightly d ehydrated ____ got some fluids. Cardiology is on board and reviewed and appreciated. PAST MEDICAL HISTORY: History of cardiomyopathy, chronic kidney stage III, hypertension, history of basal cell carcinoma status post nephrectomy, chronic kidney disease stage III, history of hyperchole sterolemia, atrial fibrillation. REVIEW OF SYSTEMS: A 14-point review of systems negative except for the HPI. FAMILY HISTORY: Noncontributory. SOCIAL HISTORY: No illicit drug use, smoking, or ETOH abuse. MEDICATIONS: Reviewed via nurse's reconciliation sheet. ALLERGIES: No known drug allergies. PHYSICAL EXAMINATION: VITAL SIGNS: Temperature of 98, pulse rate 71, blood pressure 131/67, respiratory rate 20, and oxyge n saturation 98% via room air. GENERAL: The patient is sitting up in bed in no acute distress. HEENT: Atraumatic, normocephalic. PERRLA. Extraocular muscles intact. NECK: Supple, no JVD, no adenopathy noted. LUNGS: Clear to auscultation. No adventitious sounds. HEART: S1, S2, normal rate and rhythm. No murmurs, rubs, or gallops. ABDOMEN: Soft, nontender, nondistended. Bowel sounds present. EXTREMITIES: No clubbing, no cyanosis. Peripheral pulses 2+ felt bilaterally. NEUROLOGIC: The patient is alert, orientated to person, place, month and year. Recall after 5 minut es is 0/3. Poor attention span, slow thought process. Judgment is fair. Cranial nerves II-XII inta ct. Speech is fluent without any errors. MOTOR: Slight increased tone throughout. Moves all extremities equally. No pronator drift seen. SENSORY: Light touch, pinprick, proprioception, vibration is intact. DTRs are 1+ throughout. COORDINATION: [id number] intact. Gait is slightly wide based, but Romberg negative. LABORATORY DATA: Hemoglobin is 9.7, hematocrit 30.8, platelet count of 164. Sodium is 140, potassiu m ____, chloride of 110, carbon dioxide 22, BUN of 33, creatinine 1.6, random glucose of 96. ASSESSMENT AND PLAN: This is an 80-year-old -Cypriot woman with history of anxiety, hyperten mariam, renal cell cancer, status post right nephrectomy, sciatica, hypercholesterolemia, history of pr ior tobacco, history of atrial fibrillation, history of cardiomyopathy, dilated, who had a syncopal e vent at home. Was found to have symptomatic anemia with an initial hemoglobin of 7 and transfused pa cked red blood cells and now hemoglobin is 9.7. She had transient cerebral hypoperfusion with drop i n systolic and diastolic blood pressures. Syncopal event was likely secondary to symptomatic anemia superimposed on underlying transient cerebral hypoperfusion superimposed on underlying mild dehydrati on. At this time, recommend: 1. Transfuse 2 PRBCs. 2. Hydrate the patient carefully. 3. Avoid any sedating medications. 4. She has evidence for orthostatic changes from lying to sitting. Recommend fluids and follow up w the [facility] cardiology. 5. She is to continue with her Aricept 10 mg p.o. q. daily for her cognitive impairment and continue with current present management and PT evaluation. At this time, continue with current present [facility] management. No further neurological workup needed at this time. We will sign off. Jayro Olivera MD cc: [id number] TT: 08/11/2016 17:38:28 Confirmation # [id number] Dictation # [id number]
--- NOTE | 2016-08-11 21:01 | CP.PCM.PN ---
Subjective - Date & Time of Evaluation Date of Evaluation: 08/11/16 Time of Evaluation: 19:30 - Subjective Subjective: Internal Medicine/Infectious Disease Follow Up: August 11, 2016 80 yo AA female with syncopal episode at home witnessed in front of friends. The patient found to be anemic in hospital. Unclear if the patient is taking her medications at home. The patient has worsening signs of dementia. It is known that she refuses her memory medications at home. She live alone but had family nearby. Transfused two units of PRBCs yesterday. For cardiac workup. GI evaluation pending. Guiaic pending. Chronic Kidney Disease stage III. Cleared by Neurology. Patient denies any complaints currently. Objective - Vital Signs/Intake and Output Vital Signs (last 24 hours): Temp Pulse Resp BP Pulse Ox 97.7 F 70 18 160/92 H 99 08/11/16 18:00 08/11/16 18:00 08/11/16 18:00 08/11/16 18:00 08/11/16 05:53 Intake and Output: 08/11/16 08/12/16 18:59 06:59 Intake Total 600 Output Total 400 Balance 200 - Medications Medications: Current Medications Atorvastatin Calcium (Lipitor) 20 mg PO DIN [facility] Last Admin: 08/11/16 17:26 Dose: 20 mg Digoxin (Lanoxin) 0.125 mg PO 1400 [facility] Last Admin: 08/11/16 14:23 Dose: 0.125 mg Docusate Sodium (Colace) 100 mg PO BID [facility] Last Admin: 08/11/16 17:27 Dose: Not Given Donepezil HCl (Aricept) 10 mg PO HS [facility] Last Admin: 08/10/16 22:14 Dose: 10 mg Famotidine (Pepcid) 40 mg PO HS [facility] Last Admin: 08/10/16 22:14 Dose: 40 mg Ceftriaxone Sodium (Rocephin 1 Gram Ivpb) 1 gm in 100 mls @ 100 mls/hr IVPB DAILY [facility] PRN Reason: Protocol Last Admin: 08/11/16 10:29 Dose: 100 mls/hr Sodium Chloride (Sodium Chloride 0.45%) 1,000 mls @ 70 mls/hr IV .[id number] [facility] Last Admin: 08/11/16 20:32 Dose: Not Given Iron Sucrose 200 mg/ Sodium (Chloride) 110 mls @ 110 mls/hr IVPB DAILY [facility] Stop: 08/16/16 10:01 Last Admin: 08/11/16 10:29 Dose: 110 mls/hr Meclizine HCl (Antivert) 12.5 mg PO BID PRN PRN Reason: Dizziness Last Admin: 08/10/16 10:26 Dose: 12.5 mg Metoprolol Tartrate (Lopressor) 50 mg PO BID [facility] Last Admin: 08/11/16 17:26 Dose: 50 mg Oxycodone/Acetaminophen (Percocet 5/325 Mg Tab) 1 tab PO Q6 PRN PRN Reason: Pain, moderate (4-7) Stop: 08/14/16 12:01 Last Admin: 08/11/16 17:29 Dose: 1 tab Pantoprazole Sodium (Protonix Ec Tab) 40 mg PO ACB [facility] - Labs Labs: 08/11/16 06:40 08/11/16 06:40 PT 12.3 Seconds (9.9-11.8) H 08/10/16 11:20 INR 1.14 (0.93-1.08) H 08/10/16 11:20 APTT 24.3 Seconds (23.7-30.8) 08/09/16 18:40 - Constitutional Appears: Non-toxic, No Acute Distress, Chronically Ill - Head Exam Head Exam: ATRAUMATIC, NORMOCEPHALIC - Eye Exam Eye Exam: EOMI, PERRL Pupil Exam: NORMAL ACCOMODATION, PERRL - ENT Exam ENT Exam: Mucous Membranes Moist, Normal External Ear Exam, TM's Normal Bilaterally - Neck Exam Neck Exam: Full ROM, Normal Inspection - Respiratory Exam Respiratory Exam: Clear to Ausculation Bilateral, NORMAL BREATHING PATTERN. absent: Rales, Rhonchi, Wheezes - Cardiovascular Exam Cardiovascular Exam: REGULAR RHYTHM, RRR, +S1, +S2 - GI/Abdominal Exam GI & Abdominal Exam: Soft, Normal Bowel Sounds. absent: Distended, Tenderness - Extremities Exam Extremities Exam: Full ROM, Normal Inspection - Neurological Exam Neurological Exam: Alert, Awake, CN II-XII Intact Additional comments: AAO x 2-3 - Psychiatric Exam Psychiatric exam: Normal Affect, Normal Mood - Skin Skin Exam: Intact, Normal Color Assessment and Plan - Assessment and Plan (Free Text) Assessment: 80 yo AA female with failing memory at home presenting with witnessed syncopal episode at home in front of friends. [place] [facility] [place]. Patient found to be anemic with loss of a few pounds compared to visit in the office a few weeks ago. Patient with known renal insufficiency following with Dr. Garduno/Gamaliel. Anemia and previous renal mass followed by Heme/Onc Dr. Sanchez. Syncope evaluation with Dr. Olivera of Neurology and Dr. Fonseca of Cardiology. GI evaluation with Dr. Gaytan as well. 2 units of PRBCs given for current anemia. Patient is significant dementia history that has worsened in the past 6-9 months. Patient known to miss doses of medication and sometimes takes medications twice. She lives alone but with some family nearby. Supportive care. Cardiac workup in progress.
[2016-08-12] MEDS: Sodium Chloride 0.45% 1,000 ML IV SCH (05:41)
[2016-08-12] MEDS: Oxycodone/Acetaminophen 5/325 mg Tab PO PRN (06:25)
[2016-08-12 06:54] LABS: ADD MANUAL DIFF? NO
[2016-08-12 07:15] LABS: BASO # 0.02 K/mm3 (0.0-2.0); BASO % 0.3 % (0.0-3.0); EOS # 0.2 (0.0-0.7); EOS % 3.5 % (1.5-5.0); GRAN # 4.49 (1.4-6.5); GRAN % 70.4 % (50.0-68.0); HEMATOCRIT 32.2 % (36.0-48.0); LYMPH # 1.3 (1.2-3.4); LYMPH % 20.3 % (22.0-35.0); MEAN CELL VOLUME 76.5 fL (80.0-105.0); MEAN CORPUSCULAR HGB CONC 31.4 g/dl (31.0-37.0); MEAN PLATELET VOLUME 9.6 fl (7.0-11.0); MONO # 0.4 (0.1-0.6); MONO % 5.5 % (1.0-6.0); PLATELET COUNT 168 10^3/uL (120.0-450.0); RED CELL DISTRIBUTION WIDTH 20.8 % (11.5-14.5); WHITE BLOOD COUNT 6.4 10^3/ul (4.5-11.0)
[2016-08-12 07:27] LABS: CALCIUM 8.7 mg/dL (8.4-10.5); POTASSIUM 4.5 mmol/L (3.6-5.0)
--- NOTE | 2016-08-12 07:38 | CON ---
DATE: 08/11/2016 This patient was seen and evaluated earlier today. This is an 80-year-old patient with a past medica l history of atrial fibrillation on warfarin, and was found to have a syncopal episode at home and br ought to the hospital. The patient was found to be anemic with a hemoglobin of 7.0. The patient den ies having bright red blood per rectum or melena or vomiting blood. Denies any abdominal pain. The patient received 2 units of packed RBCs; now the hemoglobin has improved to 9.7. The patient was hos pitalized in 10/2015 with rectal bleeding and she had an endoscopy and a colonoscopy done. Upper GI e ndoscopy revealed no source of blood loss but the colonoscopy revealed diverticulosis and also 2 lito odysplasias noticed in the cecum; they were cauterized with BICAP. The patient is on warfarin, not o n any iron supplement. OTHER PAST MEDICAL HISTORY: Is significant as above, history of renal cell carcinoma status post nep hrectomy, history of chronic kidney disease, cardiomyopathy, hypertension, and pulmonary hypertension . SOCIAL HISTORY: Denies for ex-smoker. Denies alcohol. ALLERGIES: No known drug allergy. REVIEW OF SYSTEMS: Positives as above. Other systems reviewed and negative. PHYSICAL EXAMINATION: GENERAL: The patient is lying on the bed, not in acute distress. VITAL SIGNS: Temperature 98, afebrile; blood pressure 131/67, respirations 20, O2 saturation ____. HEENT: Atraumatic, anicteric. NECK: Supple. HEART: S1, S2 heard, irregular. LUNGS: vesicular breath sounds. ABDOMEN: Soft. There is no mass palpable. No tenderness. EXTREMITIES: No edema, no cyanosis. NEUROLOGIC: Alert, moves all the extremities. LABORATORY DATA: Hemoglobin post-transfusion 9.7, platelets 164, WBC 6.2. Chemistry is essentially the BUN 32, creatinine 1.6. The patient's creatinine was 1.9 when she came in; creatinine was 2.2, B UN was 49. INR is 1.14. IMPRESSION: This 80-year-old patient with a history of atrial fibrillation on warfarin, was admitted with a syncopal episode. The patient was also dehydrated and given IV fluids and the patient was al so anemic and given 2 units of packed RBC. The patient did have a history of angiodysplasia of the c ecum, which was cauterized in 10/2015. The likely cause of the anemia could be due to chronic blood l oss, may be from the angiodysplasias. This patient will need to be on anticoagulation for a long adams e. Would also benefit from the long-term therapy with iron. There may be small arteriovenous malfor mations in the small bowel that could also be contributory. The reasonable thing to do for this joyce ent is to consider push endoscopy and also colonoscopy to further evaluate the colon before con sidering restarting the anticoagulation. The patient is also followed by cardiology and neurology. We will discuss with the primary prior to the GI workup. The patient did have a CAT scan done of the abdomen and pelvis with p.o. contrast about 4 months ago, which showed status post right nephrectomy , no recurrent tumor or metastatic disease. We will continue to closely follow up her care and sugge st further management based on the clinical course. Ryan Gaytan MD cc: [id number] TT: 08/11/2016 21:04:37 Confirmation # [id number] Dictation # [id number] kaela
[2016-08-12] MEDS: Pantoprazole 40 mg EC Tab PO SCH (07:52)
--- NOTE | 2016-08-12 09:13 | PN ---
DATE: 08/12/2016 The patient is feeling better after taking p.o. fluids and food. PHYSICAL EXAMINATION: VITAL SIGNS: Blood pressure is 148/90, heart rate is in the 70s, first degree heart block. NECK: Negative JVD. LUNGS: Without rales. HEART: Reveals S1, S2 with a II/ systolic ejection murmur. EXTREMITIES: Without edema. LABORATORIES: BUN and creatinine are much improved after hydration to 24 and 1.5. Hemoglobin is 10. 1. Preliminary echocardiogram reveals good LV function, no aortic stenosis, mitral regurgitation and tri cuspid regurg noted. IMPRESSION: 1. Status post syncope, likely due to dehydration. 2. No evidence for cardiac cause of syncope. 3. Anemia. 4. Hypertension. 5. Mitral regurgitation. 6. Tricuspid regurgitation. Given these findings, no further cardiac workup is necessary. We will discontinue telemetry. We will sign off the case today. Oswald Fonseca MD cc: [id number] TT: 08/12/2016 09:12:34 Confirmation # [id number] Dictation # [id number] tn
--- NOTE | 2016-08-12 09:17 | PN ---
DATE: 08/12/2016 Seen and examined at the bedside this morning. No acute overnight events are reported. The patient denies any nausea, vomiting, or abdominal pain. No reports of any overt GI bleed. VITAL SIGNS: Temperature 98, blood pressure 148/89, pulse 71, respirations 18, 99 on room air. LABORATORY DATA: WBC 6.4, H and H are hemoglobin 10.1 and hematocrit 32.2, platelets are 168. Sodiu m 136, K 4.5, BUN is 24, creatinine is 1.5. Iron is 330, TIBC, 364, percent saturation is 91. Roseanne tin is pending as well as vitamin D. PHYSICAL EXAMINATION: HEENT: Sclerae are anicteric. NECK: Supple. CARDIAC: S1, S2. LUNGS: With clear breath sounds. No rales or wheeze. ABDOMEN: With bowel sounds. Soft, nontender. No rebound or guarding. EXTREMITIES: Positive pulses. No edema. ASSESSMENT: This is an 80-year-old female with a history of atrial fibrillation, on Coumadin; status post syncopal episode. The patient was found to be dehydrated and given IV fluids. She does have a history of angiodysplasia in the cecum; she had cauterization done in 10/2015. History of diverticu losis, rule out gastrointestinal bleed. Her last endoscopy was negative for any blood loss at that t samia. The patient with anemia, status post blood transfusion. Other comorbidities are history of yuli al carcinoma status post nephrectomy and chronic kidney disease, pulmonary hypertension, cardiomyopat hy. PLAN: Continue to monitor H and H. She is getting iron, iron IV infusions. The patient does have h istory of dementia. Continue GI prophylaxis. She is on Pepcid. The patient is also on Pepcid in th e evening and Protonix in the morning. The patient is being seen by hematology, cardiology and neuro logy for evaluations. We will consider endoscopy evaluation when optimal. The patient was seen and discussed with Dr. Gaytan. Elyse BORRERO cc: [id number] TT: 08/12/2016 09:16:39 Confirmation # [id number] Dictation # [id number] mn
[2016-08-12] MEDS: cefTRIAXone 1 gm 1 GM/100 ML BAG IVPB SCH (10:26)
[2016-08-12 12:16] LABS: VITAMIN D 25 OH TOTAL 20.5 NG/ML (30.0-100.0)
--- NOTE | 2016-08-12 12:35 | CP.PCM.PN ---
Subjective - Date & Time of Evaluation Date of Evaluation: 08/12/16 Time of Evaluation: 12:29 - Subjective Subjective: Follow up Nephrology Consultation: Assessment: Acute kidney injury likely hemodynamic: improved Chronic Kidney Disease Stage 3 with ? proteinuria possibly due to HTN, age related decline, and s/p Rt nephrectomy due to hx of RCC Anemia s/p PRBC, Hypertension Vit D insufficiency Plan Hypertension control with meds as ordered. Patient not on ACEI/ARB but BP mostly controlled at this time. may add losartan 25 mg/day if needed for BP >150 /90 mm Hg She is already on statin will add vit D supplement 1000 unit/day she is getting IV iron ordered spot protein/creatinine and albumin/creatinine ratio anemia management as per heme/onc. Dose meds/antibiotics for reduced GFR ~ 40. Avoid fleets enema/magnesium based laxatives. Avoid nephrotoxins/NSAIDs/ iodinated contrast (unless needed emergently) Further work up for anemia/dizziness as per primary team Thanks for allowing me to participate in care of your patient. Will follow patient with you. Please call if any Qs Dr Jt Lemon Office: [phone] HPI: Pt is a 80 y/o F with hx of hypertension (20 years) , renal cell cancer s/ p unilateral total nephrectomy, CKD stage 3 with baseline cr 1.4-1.7 since 2017 , anemia, A fib came with anemia and dizziness ? syncope. found to have anemia and got PRBC transfusion renal consult for elevated creatinine eval. Subjective: noted events overnight Denies chest pain, palpitation, shortness of breath, leg swelling Denies blood or bubbles in urine denies NSAIDs. Physical Examination: General Appearance: Comfortable, in no acute respiratory distress, co-operative Vitals reviewed and noted as below Lungs: Normal respiratory rate/effort. Breath sounds bilateral equal and clear Heart: Normal rate. s1s2 normal. No rub or gallop. Extremities:no edema. No varicose veins Neurological: Patient is Ao x 3 no focal deficit Skin: Warm and dry. Normal turgor. No rash. Palpitation: Normal elasticity for age Abdomen: Abdomen is soft. Bowel sounds +. There is no abdominal tenderness, no guarding/rigidity or organomegaly. : kidney or bladder not palpable Labs/imaging reviewed. Past medical history, past surgical history, family history, social history, allergy reviewed work up: CT head and CXR unremarkable BNP 0 UA: [address] 2017: s/p Rt nephrectomy, left kidney unremarkable TSAT 91% Ferritin 9 Vit D 21 PTH pending Objective - Vital Signs/Intake and Output Vital Signs (last 24 hours): Temp Pulse Resp BP Pulse Ox 97.7 F 70 16 123/65 99 08/12/16 12:00 08/12/16 12:00 08/12/16 12:00 08/12/16 12:00 08/12/16 06:00 Intake and Output: 08/12/16 08/12/16 06:59 18:59 Intake Total 1200 Output Total 550 Balance 650 - Medications Medications: Current Medications Atorvastatin Calcium (Lipitor) 20 mg PO DIN [facility] Last Admin: 08/11/16 17:26 Dose: 20 mg Digoxin (Lanoxin) 0.125 mg PO 1400 [facility] Last Admin: 08/11/16 14:23 Dose: 0.125 mg Docusate Sodium (Colace) 100 mg PO BID [facility] Last Admin: 08/12/16 10:26 Dose: 100 mg Donepezil HCl (Aricept) 10 mg PO HS [facility] Last Admin: 08/11/16 21:57 Dose: 10 mg Ceftriaxone Sodium (Rocephin 1 Gram Ivpb) 1 gm in 100 mls @ 100 mls/hr IVPB DAILY [facility] PRN Reason: Protocol Last Admin: 08/12/16 10:26 Dose: 100 mls/hr Iron Sucrose 200 mg/ Sodium (Chloride) 110 mls @ 110 mls/hr IVPB DAILY [facility] Stop: 08/16/16 10:01 Last Admin: 08/12/16 11:48 Dose: 110 mls/hr Meclizine HCl (Antivert) 12.5 mg PO BID PRN PRN Reason: Dizziness Last Admin: 08/10/16 10:26 Dose: 12.5 mg Metoprolol Tartrate (Lopressor) 25 mg PO BID [facility] Last Admin: 08/12/16 10:26 Dose: 25 mg Oxycodone/Acetaminophen (Percocet 5/325 Mg Tab) 1 tab PO Q6 PRN PRN Reason: Pain, moderate (4-7) Stop: 08/14/16 12:01 Last Admin: 08/12/16 06:25 Dose: 1 tab Pantoprazole Sodium (Protonix Ec Tab) 40 mg PO ACB [facility] Last Admin: 08/12/16 07:52 Dose: 40 mg - Labs Labs: 08/12/16 06:30 08/12/16 06:30 PT 12.3 Seconds (9.9-11.8) H 08/10/16 11:20 INR 1.14 (0.93-1.08) H 08/10/16 11:20 APTT 24.3 Seconds (23.7-30.8) 08/09/16 18:40
--- NOTE | 2016-08-12 12:51 | CP.PCM.PN ---
Subjective - Date & Time of Evaluation Date of Evaluation: 08/12/16 Time of Evaluation: 11:45 - Subjective Subjective: Feeling better Objective - Vital Signs/Intake and Output Vital Signs (last 24 hours): Temp Pulse Resp BP Pulse Ox 97.7 F 70 16 123/65 99 08/12/16 12:00 08/12/16 12:00 08/12/16 12:00 08/12/16 12:00 08/12/16 06:00 Intake and Output: 08/12/16 08/12/16 06:59 18:59 Intake Total 1200 Output Total 550 Balance 650 - Medications Medications: Current Medications Atorvastatin Calcium (Lipitor) 20 mg PO DIN [facility] Last Admin: 08/11/16 17:26 Dose: 20 mg Cholecalciferol (Vitamin D) 1,000 iu PO DAILY [facility] Digoxin (Lanoxin) 0.125 mg PO 1400 [facility] Last Admin: 08/11/16 14:23 Dose: 0.125 mg Docusate Sodium (Colace) 100 mg PO BID [facility] Last Admin: 08/12/16 10:26 Dose: 100 mg Donepezil HCl (Aricept) 10 mg PO HS [facility] Last Admin: 08/11/16 21:57 Dose: 10 mg Ceftriaxone Sodium (Rocephin 1 Gram Ivpb) 1 gm in 100 mls @ 100 mls/hr IVPB DAILY [facility] PRN Reason: Protocol Last Admin: 08/12/16 10:26 Dose: 100 mls/hr Iron Sucrose 200 mg/ Sodium (Chloride) 110 mls @ 110 mls/hr IVPB DAILY [facility] Stop: 08/16/16 10:01 Last Admin: 08/12/16 11:48 Dose: 110 mls/hr Meclizine HCl (Antivert) 12.5 mg PO BID PRN PRN Reason: Dizziness Last Admin: 08/10/16 10:26 Dose: 12.5 mg Metoprolol Tartrate (Lopressor) 25 mg PO BID [facility] Last Admin: 08/12/16 10:26 Dose: 25 mg Oxycodone/Acetaminophen (Percocet 5/325 Mg Tab) 1 tab PO Q6 PRN PRN Reason: Pain, moderate (4-7) Stop: 08/14/16 12:01 Last Admin: 08/12/16 06:25 Dose: 1 tab Pantoprazole Sodium (Protonix Ec Tab) 40 mg PO ACB [facility] Last Admin: 08/12/16 07:52 Dose: 40 mg - Labs Labs: 08/12/16 06:30 08/12/16 06:30 PT 12.3 Seconds (9.9-11.8) H 08/10/16 11:20 INR 1.14 (0.93-1.08) H 08/10/16 11:20 APTT 24.3 Seconds (23.7-30.8) 08/09/16 18:40 - Head Exam Head Exam: ATRAUMATIC - Eye Exam Eye Exam: Normal appearance - ENT Exam ENT Exam: Mucous Membranes Dry - Respiratory Exam Respiratory Exam: NORMAL BREATHING PATTERN - Cardiovascular Exam Cardiovascular Exam: +S1, +S2 - GI/Abdominal Exam GI & Abdominal Exam: Normal Bowel Sounds - Extremities Exam Extremities Exam: Normal Inspection - Neurological Exam Neurological Exam: Oriented x3 - Psychiatric Exam Psychiatric exam: Normal Affect, Normal Mood - Skin Skin Exam: Warm Assessment and Plan (1) Anemia Assessment & Plan: Iron deficiency anemia rule out occult GI blood loss; GI evaluation s/p PRBC transfusion on IV iron element of anemia of CKD Status: Acute
[2016-08-12] MEDS: Digoxin 125 mcg (0.125 mg) Tab PO SCH (15:11)
--- NOTE | 2016-08-12 16:48 | CP.PCM.PN ---
Subjective - Date & Time of Evaluation Date of Evaluation: 08/12/16 Time of Evaluation: 14:15 - Subjective Subjective: Internal Medicine/Infectious Disease Follow Up: August 12, 2016 80 yo AA female with syncopal episode at home witnessed in front of friends. The patient found to be anemic in hospital. Unclear if the patient is taking her medications at home. The patient has worsening signs of dementia. It is known that she refuses her memory medications at home. She live alone but had family nearby. Transfused two units of PRBCs yesterday. For cardiac workup. GI evaluation pending. Guiaic pending. Chronic Kidney Disease stage III. Cleared by Neurology and Cardiology. Followed by Hematology and Gastroenterology. Patient denies any complaints currently. Objective - Vital Signs/Intake and Output Vital Signs (last 24 hours): Temp Pulse Resp BP Pulse Ox 97.7 F 70 16 123/65 99 08/12/16 12:00 08/12/16 12:00 08/12/16 12:00 08/12/16 12:00 08/12/16 06:00 Intake and Output: 08/12/16 08/12/16 06:59 18:59 Intake Total 1200 Output Total 550 Balance 650 - Medications Medications: Current Medications Atorvastatin Calcium (Lipitor) 20 mg PO DIN [facility] Last Admin: 08/11/16 17:26 Dose: 20 mg Cholecalciferol (Vitamin D) 1,000 iu PO DAILY [facility] Digoxin (Lanoxin) 0.125 mg PO 1400 [facility] Last Admin: 08/12/16 15:11 Dose: 0.125 mg Docusate Sodium (Colace) 100 mg PO BID [facility] Last Admin: 08/12/16 10:26 Dose: 100 mg Donepezil HCl (Aricept) 10 mg PO HS [facility] Last Admin: 08/11/16 21:57 Dose: 10 mg Ceftriaxone Sodium (Rocephin 1 Gram Ivpb) 1 gm in 100 mls @ 100 mls/hr IVPB DAILY [facility] PRN Reason: Protocol Last Admin: 08/12/16 10:26 Dose: 100 mls/hr Iron Sucrose 200 mg/ Sodium (Chloride) 110 mls @ 110 mls/hr IVPB DAILY [facility] Stop: 08/16/16 10:01 Last Admin: 08/12/16 11:48 Dose: 110 mls/hr Meclizine HCl (Antivert) 12.5 mg PO BID PRN PRN Reason: Dizziness Last Admin: 08/10/16 10:26 Dose: 12.5 mg Metoprolol Tartrate (Lopressor) 25 mg PO BID [facility] Last Admin: 08/12/16 10:26 Dose: 25 mg Oxycodone/Acetaminophen (Percocet 5/325 Mg Tab) 1 tab PO Q6 PRN PRN Reason: Pain, moderate (4-7) Stop: 08/14/16 12:01 Last Admin: 08/12/16 06:25 Dose: 1 tab Pantoprazole Sodium (Protonix Ec Tab) 40 mg PO ACB [facility] Last Admin: 08/12/16 07:52 Dose: 40 mg - Labs Labs: 08/12/16 06:30 08/12/16 06:30 PT 12.3 Seconds (9.9-11.8) H 08/10/16 11:20 INR 1.14 (0.93-1.08) H 08/10/16 11:20 APTT 24.3 Seconds (23.7-30.8) 08/09/16 18:40 - Constitutional Appears: Non-toxic, No Acute Distress, Chronically Ill - Head Exam Head Exam: ATRAUMATIC, NORMOCEPHALIC - Eye Exam Eye Exam: EOMI, PERRL Pupil Exam: NORMAL ACCOMODATION, PERRL - ENT Exam ENT Exam: Mucous Membranes Moist, Normal External Ear Exam, TM's Normal Bilaterally - Neck Exam Neck Exam: Full ROM, Normal Inspection - Respiratory Exam Respiratory Exam: Clear to Ausculation Bilateral, NORMAL BREATHING PATTERN. absent: Rales, Rhonchi, Wheezes - Cardiovascular Exam Cardiovascular Exam: REGULAR RHYTHM, RRR, +S1, +S2 - GI/Abdominal Exam GI & Abdominal Exam: Soft, Normal Bowel Sounds. absent: Distended, Tenderness - Extremities Exam Extremities Exam: Full ROM, Normal Inspection - Neurological Exam Neurological Exam: Alert, Awake, CN II-XII Intact, Oriented x3 Additional comments: AAO x 2-3 - Psychiatric Exam Psychiatric exam: Normal Affect, Normal Mood - Skin Skin Exam: Intact, Normal Color Assessment and Plan - Assessment and Plan (Free Text) Assessment: 80 yo AA female with failing memory at home presenting with witnessed syncopal episode at home in front of friends. Brought to [facility] [place] [place] for further evaluation. Patient found to be anemic with loss of a few pounds compared to visit in the office a few weeks ago. Patient with known renal insufficiency following with Dr. Garduno/Gamaliel. Anemia and previous renal mass followed by Heme/Onc Dr. Sanchez. Syncope evaluation with Dr. Olivera of Neurology and Dr. Fonseca of Cardiology. GI evaluation with Dr. Gaytan as well. 2 units of PRBCs given for current anemia. Patient is significant dementia history that has worsened in the past 6-9 months. Patient known to miss doses of medication and sometimes takes medications twice. She lives alone but with some family nearby. Supportive care. Cleared by Neurology and Cardiology. Followed by Hematology and Nephrology. Gastroenterology following. When cleared by Gastroenterology, will discharge home. Will see on risk versus benefit for anticoagulation.
--- NOTE | 2016-08-12 19:10 | PN ---
DATE: 08/12/2016 ADDENDUM This is an addendum to the GI progress report dictated by Elyse Moran APN. The patient's previous r ecord was reviewed and discussed with also Dr. Crum. The patient did have a nephrectomy for a renal tu mor. Not proven to be malignancy for definite. The patient's previous GI workup was reviewed. The plan is to consider the long-term anticoagulation. In that condition it is reasonable to do the GI w orkup, but the problem is the patient admitted with acute kidney injury on the top of chronic kidney disease. It is reasonable to hydrate the patient to preparing the patient for a colonoscopy. The luc black's INR is subtherapeutic at the present time. We will review the labs in the morning and then c onsider preparing for a colonoscopy for Wednesday. We will change the diet to a clear liquid diet. The patient has a history of angiodysplasia in the cecum, which was cauterized. There is a possibility that the patient may have smaller angiodysplasias which could be also a contributory factor. She tommy l be scheduled for the push enteroscopy and also colonoscopic evaluation. We will discuss with the p nickie again in the a.m. Thank you very much for allowing us to participate in the care of the patient. Ryan Gaytan MD cc: [id number] TT: 08/12/2016 19:09:39 Confirmation # [id number] Dictation # [id number] mone
--- NOTE | 2016-08-13 09:50 | CARD ---
APPROVED REPORT EXAM: Two-dimensional and M-mode echocardiogram with Doppler and color Doppler. Other Information Quality : AverageRhythm : INDICATION Syncope 2D DIMENSIONS IVSd1.4 (0.7-1.1cm)LVDd3.3 (3.9-5.9cm) PWd1.3 (0.7-1.1cm)LVDs2.0 (2.5-4.0cm) FS (%) 41.0 %LVEF (%)73.0 (>50%) M-Mode DIMENSIONS Left Atrium (MM)4.50 (2.5-4.0cm)Aortic Root3.20 (2.2-3.7cm) Aortic Cusp Exc.1.50 (1.5-2.0cm) Aortic Valve AoV Peak Wuikhanw879.0cm/sAoV VTI20.4cmLVOT Peak Qirfvrhv18.7cm/s LVOT VTI17.30cm Mitral Valve MV E Chplrboa870.0cm/sMV E Peak Gr.111mmHgMV A Kfokpipr98.1cm/s E/A ratio2.9 TDI Lateral E' Peak V5.46cm/sMedial E' Peak V3.81cm/sE/Lateral E'27.5 E/Medial E'39.4 Tricuspid Valve TR Peak Zdwssqbb757ur/sRAP [id number] Peak Gr.71mmHg EFTS38wqHi LEFT VENTRICLE The left ventricle is normal size. There is moderate to severe concentric left ventricular hypertrophy. The left ventricular function is normal. The left ventricular ejection fraction is within the normal range. There is normal LV segmental wall motion. RIGHT VENTRICLE The right ventricle is normal size. ATRIA The left atrium is moderately dilated. The right atrium is moderately dilated. The interatrial septum is intact with no evidence for an atrial septal defect. AORTIC VALVE The aortic valve is mildly to moderately calcified. MITRAL VALVE The mitral valve is mildly thickened but opens well. Mitral regurgitation is mild. TRICUSPID VALVE The tricuspid valve is normal in structure. There is moderate tricuspid regurgitation. There is severe pulmonary hypertension. PULMONIC VALVE The pulmonary valve is normal in structure. GREAT VESSELS The aortic root is normal in size. PERICARDIAL EFFUSION There is no pericardial effusion. <Conclusion> The left ventricle is normal size. There is moderate to severe concentric left ventricular hypertrophy. The left ventricular function is normal. Mitral regurgitation is mild. There is moderate tricuspid regurgitation. There is severe pulmonary hypertension.
[2016-08-13] MEDS: Pantoprazole 40 mg EC Tab PO SCH (10:15)
[2016-08-13] MEDS: cefTRIAXone 1 gm 1 GM/100 ML BAG IVPB SCH (12:45)
--- NOTE | 2016-08-13 13:16 | PN ---
DATE: 08/13/2016 Denies any nausea, vomiting, or abdominal pain. No acute overnight events reported. VITAL SIGNS: Temperature is 98.3, blood pressure is 176/101, pulse rate is 75, respirations 20, 100% room air. No new labs are noted for today. PHYSICAL EXAMINATION: HEENT: Sclera is anicteric. NECK: Supple. CARDIAC: S1, S2. LUNG SOUNDS: With decreased breath sounds, but clear, no rales or wheeze, good air entry. ABDOMEN: With bowel sounds, soft, nontender. EXTREMITIES: No edema. NEUROLOGIC: Awake, alert, oriented. ASSESSMENT: An 80-year-old female with history of atrial fibrillation on Coumadin, had syncopal epis ode, status post dehydration. The patient found to have anemia. She does have a history of angiodys plasia in the cecum, history of diverticulosis, history of renal mass, negative for cancer, status po st nephrectomy, chronic kidney disease, pulmonary hypertension and cardiomyopathy. PLAN: Discussed with patient again. She is going to be prepared for endoscopy and colonoscopy tomor row. On clear liquid diet. Start GoLYTELY prep in the afternoon and n.p.o. after midnight except me dications. We will repeat her labs in the a.m. Continue GI prophylaxis. The patient is on IV iron and is started on gentle hydration of half normal saline at 50 mL an hour. The patient was seen and case discussed with Dr. Gaytan. Elyse BORRERO cc: 451 TT: 08/13/2016 13:15:47 Confirmation # [id number] Dictation # [id number]
--- NOTE | 2016-08-13 14:07 | PN ---
DATE: 08/13/2016 The patient is without distress. PHYSICAL EXAMINATION: VITAL SIGNS: Blood pressure 176/101, the heart rate is in the 70s. NECK: Negative JVD. LUNGS: Without rales. HEART: Reveals S1, S2. EXTREMITIES: Without edema. LABORATORIES: Hemoglobin is 10.1. Chemistries are unremarkable. IMPRESSION: 1. Status post syncope. 2. Anemia. 3. Chronic atrial fibrillation. 4. Anemia. 5. Hypertension. PLAN: Given these findings, I agree with adding Cozaar for better blood pressure control. The patient is for endoscopy. Oswald Fonseca MD cc: [id number] TT: 08/13/2016 14:07:20 Confirmation # [id number] Dictation # [id number] jodee
--- NOTE | 2016-08-13 14:11 | CP.PCM.PN ---
Subjective - Date & Time of Evaluation Date of Evaluation: 08/13/16 Time of Evaluation: 14:09 - Subjective Subjective: Follow up Nephrology Consultation: Assessment: Acute kidney injury likely hemodynamic: improved Chronic Kidney Disease Stage 3 with ? proteinuria possibly due to HTN, age related decline, and s/p Rt nephrectomy due to hx of RCC Anemia s/p PRBC, Hypertension Vit D insufficiency with secondary hyperparathyroidism Plan Hypertension control with meds as ordered. added losartan 50 mg/day She is already on statin started on vit D supplement 1000 unit/day she is getting IV iron ordered spot protein/creatinine and albumin/creatinine ratio anemia management as per heme/onc. planned for colonoscopy tomorrow, stable from renal perspective. Dose meds/antibiotics for reduced GFR ~ 40. Avoid fleets enema/magnesium based laxatives. Avoid nephrotoxins/NSAIDs/ iodinated contrast (unless needed emergently) Further work up for anemia/dizziness as per primary team Thanks for allowing me to participate in care of your patient. Will follow patient with you. Please call if any Qs Dr Jt Lemon Office: [phone] HPI: Pt is a 80 y/o F with hx of hypertension (20 years) , renal cell cancer s/ p unilateral total nephrectomy, CKD stage 3 with baseline cr 1.4-1.7 since 2017 , anemia, A fib came with anemia and dizziness ? syncope. found to have anemia and got PRBC transfusion renal consult for elevated creatinine eval. Subjective: noted events overnight Denies chest pain, palpitation, shortness of breath, leg swelling Denies blood or bubbles in urine denies NSAIDs. going for colonoscopy tomorrow Physical Examination: General Appearance: Comfortable, in no acute respiratory distress, co-operative Vitals reviewed and noted as below Lungs: Normal respiratory rate/effort. Breath sounds bilateral equal and clear Heart: Normal rate. s1s2 normal. No rub or gallop. Extremities:no edema. No varicose veins Neurological: Patient is Ao x 3 no focal deficit Skin: Warm and dry. Normal turgor. No rash. Palpitation: Normal elasticity for age Abdomen: Abdomen is soft. Bowel sounds +. There is no abdominal tenderness, no guarding/rigidity or organomegaly. : kidney or bladder not palpable Labs/imaging reviewed. Past medical history, past surgical history, family history, social history, allergy reviewed work up: CT head and CXR unremarkable BNP 0 UA: [address] 2017: s/p Rt nephrectomy, left kidney unremarkable TSAT 91% Ferritin 9 Vit D 21 PTH 229 Objective - Vital Signs/Intake and Output Vital Signs (last 24 hours): Temp Pulse Resp BP Pulse Ox 98.3 F 75 20 176/101 H 100 08/13/16 07:30 08/13/16 07:30 08/13/16 07:30 08/13/16 07:30 08/13/16 07:30 Intake and Output: 08/13/16 08/13/16 06:59 18:59 Intake Total 180 Balance 180 - Medications Medications: Current Medications Atorvastatin Calcium (Lipitor) 20 mg PO DIN [facility] Last Admin: 08/12/16 17:13 Dose: 20 mg Bisacodyl (Dulcolax) 10 mg PO ONCE ONE Stop: 08/14/16 06:01 Cholecalciferol (Vitamin D) 1,000 iu PO DAILY [facility] Digoxin (Lanoxin) 0.125 mg PO 1400 [facility] Last Admin: 08/12/16 15:11 Dose: 0.125 mg Docusate Sodium (Colace) 100 mg PO BID [facility] Last Admin: 08/12/16 17:13 Dose: 100 mg Donepezil HCl (Aricept) 10 mg PO HS [facility] Last Admin: 08/12/16 21:31 Dose: 10 mg Ceftriaxone Sodium (Rocephin 1 Gram Ivpb) 1 gm in 100 mls @ 100 mls/hr IVPB DAILY [facility] PRN Reason: Protocol Last Admin: 08/12/16 10:26 Dose: 100 mls/hr Iron Sucrose 200 mg/ Sodium (Chloride) 110 mls @ 110 mls/hr IVPB DAILY [facility] Stop: 08/16/16 10:01 Last Admin: 08/12/16 11:48 Dose: 110 mls/hr Sodium Chloride (Sodium Chloride 0.45%) 1,000 mls @ 50 mls/hr IV .Q20H [facility] Losartan Potassium (Cozaar) 50 mg PO DAILY [facility] Meclizine HCl (Antivert) 12.5 mg PO BID PRN PRN Reason: Dizziness Last Admin: 08/10/16 10:26 Dose: 12.5 mg Metoprolol Tartrate (Lopressor) 25 mg PO BID [facility] Last Admin: 08/13/16 05:32 Dose: 25 mg Oxycodone/Acetaminophen (Percocet 5/325 Mg Tab) 1 tab PO Q6 PRN PRN Reason: Pain, moderate (4-7) Stop: 08/14/16 12:01 Last Admin: 08/12/16 06:25 Dose: 1 tab Pantoprazole Sodium (Protonix Ec Tab) 40 mg PO ACB [facility] Last Admin: 08/12/16 07:52 Dose: 40 mg Polyethylene Glycol/Electrolytes (Golytely) 4,000 ml PO ONCE ONE Stop: 08/13/16 15:01 - Labs Labs: 08/12/16 06:30 08/12/16 06:30 PT 12.3 Seconds (9.9-11.8) H 08/10/16 11:20 INR 1.14 (0.93-1.08) H 08/10/16 11:20 APTT 24.3 Seconds (23.7-30.8) 08/09/16 18:40
--- NOTE | 2016-08-13 14:46 | CP.PCM.PN ---
Subjective - Date & Time of Evaluation Date of Evaluation: 08/13/16 Time of Evaluation: 14:00 - Subjective Subjective: No complaints, feeling better Objective - Vital Signs/Intake and Output Vital Signs (last 24 hours): Temp Pulse Resp BP Pulse Ox 98.3 F 75 20 176/101 H 100 08/13/16 07:30 08/13/16 07:30 08/13/16 07:30 08/13/16 07:30 08/13/16 07:30 Intake and Output: 08/13/16 08/13/16 06:59 18:59 Intake Total 180 Balance 180 - Medications Medications: Current Medications Atorvastatin Calcium (Lipitor) 20 mg PO DIN [facility] Last Admin: 08/12/16 17:13 Dose: 20 mg Bisacodyl (Dulcolax) 10 mg PO ONCE ONE Stop: 08/14/16 06:01 Cholecalciferol (Vitamin D) 1,000 iu PO DAILY [facility] Digoxin (Lanoxin) 0.125 mg PO 1400 [facility] Last Admin: 08/12/16 15:11 Dose: 0.125 mg Docusate Sodium (Colace) 100 mg PO BID [facility] Last Admin: 08/12/16 17:13 Dose: 100 mg Donepezil HCl (Aricept) 10 mg PO HS [facility] Last Admin: 08/12/16 21:31 Dose: 10 mg Ceftriaxone Sodium (Rocephin 1 Gram Ivpb) 1 gm in 100 mls @ 100 mls/hr IVPB DAILY [facility] PRN Reason: Protocol Last Admin: 08/12/16 10:26 Dose: 100 mls/hr Iron Sucrose 200 mg/ Sodium (Chloride) 110 mls @ 110 mls/hr IVPB DAILY [facility] Stop: 08/16/16 10:01 Last Admin: 08/12/16 11:48 Dose: 110 mls/hr Sodium Chloride (Sodium Chloride 0.45%) 1,000 mls @ 50 mls/hr IV .Q20H [facility] Losartan Potassium (Cozaar) 50 mg PO DAILY [facility] Meclizine HCl (Antivert) 12.5 mg PO BID PRN PRN Reason: Dizziness Last Admin: 08/10/16 10:26 Dose: 12.5 mg Metoprolol Tartrate (Lopressor) 25 mg PO BID [facility] Last Admin: 08/13/16 05:32 Dose: 25 mg Oxycodone/Acetaminophen (Percocet 5/325 Mg Tab) 1 tab PO Q6 PRN PRN Reason: Pain, moderate (4-7) Stop: 08/14/16 12:01 Last Admin: 08/12/16 06:25 Dose: 1 tab Pantoprazole Sodium (Protonix Ec Tab) 40 mg PO ACB [facility] Last Admin: 08/12/16 07:52 Dose: 40 mg Polyethylene Glycol/Electrolytes (Golytely) 4,000 ml PO ONCE ONE Stop: 08/13/16 15:01 - Labs Labs: 08/12/16 06:30 08/12/16 06:30 PT 12.3 Seconds (9.9-11.8) H 08/10/16 11:20 INR 1.14 (0.93-1.08) H 08/10/16 11:20 APTT 24.3 Seconds (23.7-30.8) 08/09/16 18:40 - Head Exam Head Exam: ATRAUMATIC - Eye Exam Eye Exam: Normal appearance - ENT Exam ENT Exam: Mucous Membranes Dry - Respiratory Exam Respiratory Exam: NORMAL BREATHING PATTERN - Cardiovascular Exam Cardiovascular Exam: +S1, +S2 - GI/Abdominal Exam GI & Abdominal Exam: Normal Bowel Sounds - Extremities Exam Extremities Exam: Normal Inspection - Neurological Exam Neurological Exam: Oriented x3 - Psychiatric Exam Psychiatric exam: Normal Affect, Normal Mood - Skin Skin Exam: Warm Assessment and Plan (1) Anemia Assessment & Plan: iron deficiency s/p PRBC transfusion IV iron endoscopy per GI element of anemia of CKD Status: Acute
[2016-08-13] MEDS ORDERED: Peg-Electrolyte Oral Soln 4L (Golytely) PO ONE (15:00)
[2016-08-13] MEDS: Digoxin 125 mcg (0.125 mg) Tab PO SCH (18:27)
--- NOTE | 2016-08-13 19:15 | CP.PCM.PN ---
Subjective - Date & Time of Evaluation Date of Evaluation: 08/13/16 Time of Evaluation: 18:15 - Subjective Subjective: Internal Medicine/Infectious Disease Follow Up: August 13, 2016 80 yo AA female with syncopal episode at home witnessed in front of friends. The patient found to be anemic in hospital. Unclear if the patient is taking her medications at home. The patient has worsening signs of dementia. It is known that she refuses her memory medications at home. She live alone but had family nearby. Transfused two units of PRBCs yesterday. For cardiac workup. GI evaluation pending. Guiaic pending. Chronic Kidney Disease stage III. Cleared by Neurology and Cardiology. Followed by Hematology and Gastroenterology. For colonoscopy tomorrow. Patient denies any complaints currently. Objective - Vital Signs/Intake and Output Vital Signs (last 24 hours): Temp Pulse Resp BP Pulse Ox 98 F 72 20 139/72 100 08/13/16 16:00 08/13/16 18:27 08/13/16 16:00 08/13/16 18:27 08/13/16 16:00 - Medications Medications: Current Medications Atorvastatin Calcium (Lipitor) 20 mg PO DIN [facility] Last Admin: 08/13/16 18:27 Dose: 20 mg Bisacodyl (Dulcolax) 10 mg PO ONCE ONE Stop: 08/14/16 06:01 Cholecalciferol (Vitamin D) 1,000 iu PO DAILY [facility] Last Admin: 08/13/16 10:15 Dose: 1,000 iu Digoxin (Lanoxin) 0.125 mg PO 1400 [facility] Last Admin: 08/13/16 18:27 Dose: 0.125 mg Docusate Sodium (Colace) 100 mg PO BID [facility] Last Admin: 08/13/16 18:27 Dose: Not Given Donepezil HCl (Aricept) 10 mg PO HS [facility] Last Admin: 08/12/16 21:31 Dose: 10 mg Ceftriaxone Sodium (Rocephin 1 Gram Ivpb) 1 gm in 100 mls @ 100 mls/hr IVPB DAILY [facility] PRN Reason: Protocol Last Admin: 08/13/16 12:45 Dose: 100 mls/hr Iron Sucrose 200 mg/ Sodium (Chloride) 110 mls @ 110 mls/hr IVPB DAILY [facility] Stop: 08/16/16 10:01 Last Admin: 08/13/16 11:45 Dose: 110 mls/hr Sodium Chloride (Sodium Chloride 0.45%) 1,000 mls @ 50 mls/hr IV .Q20H [facility] Losartan Potassium (Cozaar) 50 mg PO DAILY [facility] Last Admin: 08/13/16 15:32 Dose: 50 mg Meclizine HCl (Antivert) 12.5 mg PO BID PRN PRN Reason: Dizziness Last Admin: 08/10/16 10:26 Dose: 12.5 mg Metoprolol Tartrate (Lopressor) 25 mg PO BID [facility] Last Admin: 08/13/16 18:27 Dose: 25 mg Oxycodone/Acetaminophen (Percocet 5/325 Mg Tab) 1 tab PO Q6 PRN PRN Reason: Pain, moderate (4-7) Stop: 08/14/16 12:01 Last Admin: 08/12/16 06:25 Dose: 1 tab Pantoprazole Sodium (Protonix Ec Tab) 40 mg PO ACB [facility] Last Admin: 08/13/16 10:15 Dose: 40 mg - Labs Labs: 08/12/16 06:30 08/12/16 06:30 PT 12.3 Seconds (9.9-11.8) H 08/10/16 11:20 INR 1.14 (0.93-1.08) H 08/10/16 11:20 APTT 24.3 Seconds (23.7-30.8) 08/09/16 18:40 - Constitutional Appears: Non-toxic, No Acute Distress, Chronically Ill - Head Exam Head Exam: ATRAUMATIC, NORMOCEPHALIC - Eye Exam Eye Exam: EOMI, PERRL Pupil Exam: NORMAL ACCOMODATION, PERRL - ENT Exam ENT Exam: Mucous Membranes Moist, Normal External Ear Exam, TM's Normal Bilaterally - Neck Exam Neck Exam: Full ROM, Normal Inspection - Respiratory Exam Respiratory Exam: Clear to Ausculation Bilateral, NORMAL BREATHING PATTERN. absent: Rales, Rhonchi, Wheezes - Cardiovascular Exam Cardiovascular Exam: REGULAR RHYTHM, RRR, +S1, +S2 - GI/Abdominal Exam GI & Abdominal Exam: Soft, Normal Bowel Sounds. absent: Distended, Tenderness - Extremities Exam Extremities Exam: Full ROM, Normal Capillary Refill - Neurological Exam Neurological Exam: Alert, Awake, CN II-XII Intact Additional comments: AAO x 2-3 - Psychiatric Exam Psychiatric exam: Normal Affect, Normal Mood - Skin Skin Exam: Intact, Normal Color Assessment and Plan - Assessment and Plan (Free Text) Assessment: 80 yo AA female with failing memory at home presenting with witnessed syncopal episode at home in front of friends. Brought to [facility] for further evaluation. Patient found to be anemic with loss of a few pounds compared to visit in the office a few weeks ago. Patient with known renal insufficiency following with Dr. Garduno/Gamaliel. Anemia and previous renal mass followed by Heme/Onc Dr. Sanchez. Syncope evaluation with Dr. Olivera of Neurology and Dr. Fonseca of Cardiology. GI evaluation with Dr. Gaytan as well. 2 units of PRBCs given for current anemia. Patient is significant dementia history that has worsened in the past 6-9 months. Patient known to miss doses of medication and sometimes takes medications twice. She lives alone but with some family nearby. For colonoscopy tomorrow. Supportive care. Cleared by Neurology and Cardiology. Followed by Hematology and Nephrology. Gastroenterology following.
[2016-08-13] MEDS ORDERED: Magnesium Citrate Oral SOL (300 ml) PO ONE (21:00)
[2016-08-13] MEDS: Sodium Chloride 0.45% 1,000 ML IV SCH (22:50)
--- NOTE | 2016-08-13 23:03 | PN ---
DATE: 08/13/2016 ADDENDUM This is an addendum to the GI progress report dictated by Elyse Moran APN. Discussed with the patient at length. The patient needs to be on long-term anticoagulation. Did come with dehydration with acute kidney injury on top of chronic kidney disease. The patient did have significant drop in blood count and history of anemia, history of GI bleeding in the past status post BICAP treatment of angiodysplasia. Poorly noncompliant with followup. I discuss with Dr. Crum. The reasonable thing is to consider inpatient GI evaluation and further optimization. The patient has been restarted on IV fluids now and will be prepared for a colonoscopy and she is scheduled for both EGD and colonoscopy in the a.m. Thank you very much for allowing us to participate in the care of the patient. Ryan Gaytan MD cc: [phone] TT: 08/13/2016 23:03:01 Confirmation # [id number] Dictation # [id number] ln MTDD
[2016-08-14] MEDS: Oxycodone/Acetaminophen 5/325 mg Tab PO PRN ×3 (00:40→18:19)
[2016-08-14] MEDS ORDERED: Bisacodyl 5mg EC Tab PO ONE (06:00)
[2016-08-14 06:49] LABS: ADD MANUAL DIFF? NO
[2016-08-14 07:08] LABS: BASO # 0.02 K/mm3 (0.0-2.0); BASO % 0.3 % (0.0-3.0); EOS # 0.2 (0.0-0.7); EOS % 3.3 % (1.5-5.0); GRAN # 4.59 (1.4-6.5); GRAN % 71.8 % (50.0-68.0); HEMATOCRIT 29.1 % (36.0-48.0); LYMPH # 1.1 (1.2-3.4); LYMPH % 17.3 % (22.0-35.0); MEAN CELL VOLUME 76.2 fL (80.0-105.0); MEAN CORPUSCULAR HEMOGLOBIN 23.3 pg (25.0-35.0); MEAN CORPUSCULAR HGB CONC 30.6 g/dl (31.0-37.0); MEAN PLATELET VOLUME 9.3 fl (7.0-11.0); MONO # 0.5 (0.1-0.6); MONO % 7.3 % (1.0-6.0); PLATELET COUNT 129 10^3/uL (120.0-450.0); RED CELL DISTRIBUTION WIDTH 21.9 % (11.5-14.5); WHITE BLOOD COUNT 6.4 10^3/ul (4.5-11.0)
[2016-08-14 07:15] LABS: ALB/GLOB RATIO 0.9 (1.1-1.8); BILIRUBIN,TOTAL 0.6 mg/dL (0.2-1.3); CALCIUM 8.6 mg/dL (8.4-10.5); POTASSIUM 4.7 mmol/L (3.6-5.0); TOTAL PROTEIN 6.4 g/dL (5.8-8.3)
[2016-08-14] MEDS: Pantoprazole 40 mg EC Tab PO SCH (07:55)
[2016-08-14] MEDS ORDERED: Propofol 10 mg/ml Inj (20 ML) ONE (13:58)
[2016-08-14] MEDS: Digoxin 125 mcg (0.125 mg) Tab PO SCH (14:11)
[2016-08-14] MEDS ORDERED: Sodium Chloride 0.9% 1,000 ML IV SCH (15:15)
--- NOTE | 2016-08-14 16:41 | CP.PCM.PN ---
Subjective - Date & Time of Evaluation Date of Evaluation: 08/14/16 Time of Evaluation: 16:38 - Subjective Subjective: Follow up Nephrology Consultation: Assessment: Acute kidney injury likely hemodynamic: improved Chronic Kidney Disease Stage 3 with ? proteinuria possibly due to HTN, age related decline, and s/p Rt nephrectomy due to hx of RCC Anemia s/p PRBC, Hypertension uncontrolled Vit D insufficiency with secondary hyperparathyroidism Plan Hypertension control with meds as ordered. added norvasc 5 mg/day, increased losartan 100 mg/day and PRN hydralazine. She is already on statin started on vit D supplement 1000 unit/day she is getting IV iron ordered spot protein/creatinine and albumin/creatinine ratio Dose meds/antibiotics for reduced GFR ~ 40. Avoid fleets enema/magnesium based laxatives. Avoid nephrotoxins/NSAIDs/ iodinated contrast (unless needed emergently) Further work up for anemia/dizziness as per primary team Thanks for allowing me to participate in care of your patient. Will follow patient with you. Please call if any Qs Dr Jt Lemon Office: [phone] HPI: Pt is a 80 y/o F with hx of hypertension (20 years) , renal cell cancer s/ p unilateral total nephrectomy, CKD stage 3 with baseline cr 1.4-1.7 since 2017 , anemia, A fib came with anemia and dizziness ? syncope. found to have anemia and got PRBC transfusion renal consult for elevated creatinine eval. Subjective: noted events overnight Denies chest pain, palpitation, shortness of breath, leg swelling Denies blood or bubbles in urine denies NSAIDs. had colonoscopy today Physical Examination: General Appearance: Comfortable, in no acute respiratory distress, co-operative Vitals reviewed and noted as below Lungs: Normal respiratory rate/effort. Breath sounds bilateral equal and clear Heart: Normal rate. s1s2 normal. No rub or gallop. Skin: Warm and dry. Normal turgor. No rash. Palpitation: Normal elasticity for age Abdomen: Abdomen is soft. Bowel sounds +. There is no abdominal tenderness, no guarding/rigidity or organomegaly. : kidney or bladder not palpable Labs/imaging reviewed. Past medical history, past surgical history, family history, social history, allergy reviewed work up: CT head and CXR unremarkable BNP 2050 UA: [address] 2017: s/p Rt nephrectomy, left kidney unremarkable TSAT 91% Ferritin 9 Vit D 21 PTH 229 Objective - Vital Signs/Intake and Output Vital Signs (last 24 hours): Temp Pulse Resp BP Pulse Ox 98.8 F 77 16 181/76 H 98 08/14/16 16:01 08/14/16 16:01 08/14/16 16:01 08/14/16 16:01 08/14/16 16:01 Intake and Output: 08/14/16 08/14/16 06:59 18:59 Intake Total 1520 Balance 1520 - Medications Medications: Current Medications Amlodipine Besylate (Norvasc) 5 mg PO DAILY [facility] Atorvastatin Calcium (Lipitor) 20 mg PO DIN [facility] Last Admin: 08/13/16 18:27 Dose: 20 mg Cholecalciferol (Vitamin D) 1,000 iu PO DAILY [facility] Last Admin: 08/13/16 10:15 Dose: 1,000 iu Digoxin (Lanoxin) 0.125 mg PO 1400 [facility] Last Admin: 08/13/16 18:27 Dose: 0.125 mg Docusate Sodium (Colace) 100 mg PO BID [facility] Last Admin: 08/14/16 11:10 Dose: Not Given Donepezil HCl (Aricept) 10 mg PO HS [facility] Last Admin: 08/13/16 22:39 Dose: 10 mg Hydralazine HCl (Apresoline) 25 mg PO QID PRN PRN Reason: Other Ceftriaxone Sodium (Rocephin 1 Gram Ivpb) 1 gm in 100 mls @ 100 mls/hr IVPB DAILY [facility] PRN Reason: Protocol Last Admin: 08/13/16 12:45 Dose: 100 mls/hr Iron Sucrose 200 mg/ Sodium (Chloride) 110 mls @ 110 mls/hr IVPB DAILY [facility] Stop: 08/16/16 10:01 Last Admin: 08/13/16 11:45 Dose: 110 mls/hr Sodium Chloride (Sodium Chloride 0.45%) 1,000 mls @ 50 mls/hr IV .Q20H [facility] Last Admin: 08/13/16 22:50 Dose: 50 mls/hr Sodium Chloride (Sodium Chloride 0.9%) 1,000 mls @ 75 mls/hr IV .[id number] [facility] Stop: 08/14/16 17:16 Losartan Potassium (Cozaar) 50 mg PO DAILY [facility] Stop: 08/14/16 16:46 Losartan Potassium (Cozaar) 100 mg PO DAILY [facility] Meclizine HCl (Antivert) 12.5 mg PO BID PRN PRN Reason: Dizziness Last Admin: 08/10/16 10:26 Dose: 12.5 mg Metoprolol Tartrate (Lopressor) 25 mg PO BID [facility] Last Admin: 08/14/16 06:08 Dose: 25 mg Pantoprazole Sodium (Protonix Ec Tab) 40 mg PO ACB [facility] Last Admin: 08/13/16 10:15 Dose: 40 mg - Labs Labs: 08/14/16 06:30 08/14/16 06:30 PT 12.3 Seconds (9.9-11.8) H 08/10/16 11:20 INR 1.14 (0.93-1.08) H 08/10/16 11:20 APTT 24.3 Seconds (23.7-30.8) 08/09/16 18:40
--- NOTE | 2016-08-14 16:42 | CP.PCM.PN ---
Subjective - Date & Time of Evaluation Date of Evaluation: 08/14/16 Time of Evaluation: 15:15 - Subjective Subjective: Internal Medicine/Infectious Disease Follow Up: August 14, 2016 80 yo AA female with syncopal episode at home witnessed in front of friends. The patient found to be anemic in hospital. Unclear if the patient is taking her medications at home. The patient has worsening signs of dementia. It is known that she refuses her memory medications at home. She live alone but had family nearby. Transfused two units of PRBCs yesterday. For cardiac workup. GI evaluation pending. Guiaic pending. Chronic Kidney Disease stage III. Cleared by Neurology and Cardiology. Followed by Hematology and Gastroenterology. In recovery s/p colonoscopy. Will discuss findings with Dr. Gaytan. Discussed renal issues with Dr. Lemon especially difficult to control blood pressure. Patient denies any complaints currently is groggy after procedure. Objective - Vital Signs/Intake and Output Vital Signs (last 24 hours): Temp Pulse Resp BP Pulse Ox 98.8 F 77 16 181/76 H 98 08/14/16 16:01 08/14/16 16:01 08/14/16 16:01 08/14/16 16:01 08/14/16 16:01 Intake and Output: 08/14/16 08/14/16 06:59 18:59 Intake Total 1520 Balance 1520 - Medications Medications: Current Medications Amlodipine Besylate (Norvasc) 5 mg PO DAILY [facility] Atorvastatin Calcium (Lipitor) 20 mg PO DIN [facility] Last Admin: 08/13/16 18:27 Dose: 20 mg Cholecalciferol (Vitamin D) 1,000 iu PO DAILY [facility] Last Admin: 08/13/16 10:15 Dose: 1,000 iu Digoxin (Lanoxin) 0.125 mg PO 1400 [facility] Last Admin: 08/13/16 18:27 Dose: 0.125 mg Docusate Sodium (Colace) 100 mg PO BID [facility] Last Admin: 08/14/16 11:10 Dose: Not Given Donepezil HCl (Aricept) 10 mg PO HS [facility] Last Admin: 08/13/16 22:39 Dose: 10 mg Hydralazine HCl (Apresoline) 25 mg PO QID PRN PRN Reason: Other Ceftriaxone Sodium (Rocephin 1 Gram Ivpb) 1 gm in 100 mls @ 100 mls/hr IVPB DAILY [facility] PRN Reason: Protocol Last Admin: 08/13/16 12:45 Dose: 100 mls/hr Iron Sucrose 200 mg/ Sodium (Chloride) 110 mls @ 110 mls/hr IVPB DAILY [facility] Stop: 08/16/16 10:01 Last Admin: 08/13/16 11:45 Dose: 110 mls/hr Sodium Chloride (Sodium Chloride 0.45%) 1,000 mls @ 50 mls/hr IV .Q20H [facility] Last Admin: 08/13/16 22:50 Dose: 50 mls/hr Sodium Chloride (Sodium Chloride 0.9%) 1,000 mls @ 75 mls/hr IV .[id number] [facility] Stop: 08/14/16 17:16 Losartan Potassium (Cozaar) 50 mg PO DAILY [facility] Last Admin: 08/13/16 15:32 Dose: 50 mg Meclizine HCl (Antivert) 12.5 mg PO BID PRN PRN Reason: Dizziness Last Admin: 08/10/16 10:26 Dose: 12.5 mg Metoprolol Tartrate (Lopressor) 25 mg PO BID [facility] Last Admin: 08/14/16 06:08 Dose: 25 mg Pantoprazole Sodium (Protonix Ec Tab) 40 mg PO ACB [facility] Last Admin: 08/13/16 10:15 Dose: 40 mg - Labs Labs: 08/14/16 06:30 08/14/16 06:30 PT 12.3 Seconds (9.9-11.8) H 08/10/16 11:20 INR 1.14 (0.93-1.08) H 08/10/16 11:20 APTT 24.3 Seconds (23.7-30.8) 08/09/16 18:40 - Constitutional Appears: Non-toxic, No Acute Distress, Chronically Ill - Head Exam Head Exam: ATRAUMATIC, NORMOCEPHALIC - Eye Exam Eye Exam: EOMI, PERRL Pupil Exam: NORMAL ACCOMODATION, PERRL - ENT Exam ENT Exam: Mucous Membranes Moist, Normal External Ear Exam, TM's Normal Bilaterally - Neck Exam Neck Exam: Full ROM, Normal Inspection - Respiratory Exam Respiratory Exam: Clear to Ausculation Bilateral, NORMAL BREATHING PATTERN. absent: Rales, Rhonchi, Wheezes - Cardiovascular Exam Cardiovascular Exam: REGULAR RHYTHM, RRR, +S1, +S2 - GI/Abdominal Exam GI & Abdominal Exam: Soft, Normal Bowel Sounds. absent: Distended, Tenderness - Extremities Exam Extremities Exam: Full ROM, Normal Capillary Refill, Normal Inspection - Neurological Exam Neurological Exam: Alert, Awake, CN II-XII Intact Additional comments: AAO x 2-3 - Psychiatric Exam Psychiatric exam: Normal Affect, Normal Mood - Skin Skin Exam: Intact, Normal Color Assessment and Plan - Assessment and Plan (Free Text) Assessment: 80 yo AA female with failing memory at home presenting with witnessed syncopal episode at home in front of friends. Brought to [facility] [facility] for further evaluation. Patient found to be anemic with loss of a few pounds compared to visit in the office a few weeks ago. Patient with known renal insufficiency following with Dr. Garduno/Gamaliel. Anemia and previous renal mass followed by Heme/Onc Dr. Sanchez. Syncope evaluation with Dr. Olivera of Neurology and Dr. Fonseca of Cardiology. GI evaluation with Dr. Gaytan as well. 2 units of PRBCs given for current anemia. Patient is significant dementia history that has worsened in the past 6-9 months. Patient known to miss doses of medication and sometimes takes medications twice. She lives alone but with some family nearby. Coloscopy just done... awaiting results... will talk to Dr. Gaytan. Supportive care. Cleared by Neurology and Cardiology. Followed by Hematology and Nephrology. Gastroenterology following.
[2016-08-14] MEDS: cefTRIAXone 1 gm 1 GM/100 ML BAG IVPB SCH (17:45)
--- NOTE | 2016-08-14 21:16 | CP.PCM.PN ---
Subjective - Date & Time of Evaluation Date of Evaluation: 08/14/16 Time of Evaluation: 18:00 - Subjective Subjective: S/p colonoscopy Objective - Vital Signs/Intake and Output Vital Signs (last 24 hours): Temp Pulse Resp BP Pulse Ox 98.8 F 77 16 181/76 H 98 08/14/16 16:01 08/14/16 18:21 08/14/16 16:01 08/14/16 18:21 08/14/16 16:01 - Medications Medications: Current Medications Amlodipine Besylate (Norvasc) 5 mg PO DAILY [facility] Atorvastatin Calcium (Lipitor) 20 mg PO DIN [facility] Last Admin: 08/13/16 18:27 Dose: 20 mg Cholecalciferol (Vitamin D) 1,000 iu PO DAILY [facility] Last Admin: 08/13/16 10:15 Dose: 1,000 iu Digoxin (Lanoxin) 0.125 mg PO 1400 [facility] Last Admin: 08/13/16 18:27 Dose: 0.125 mg Docusate Sodium (Colace) 100 mg PO BID [facility] Last Admin: 08/14/16 18:19 Dose: Not Given Donepezil HCl (Aricept) 10 mg PO HS [facility] Last Admin: 08/13/16 22:39 Dose: 10 mg Hydralazine HCl (Apresoline) 25 mg PO QID PRN PRN Reason: Other Ceftriaxone Sodium (Rocephin 1 Gram Ivpb) 1 gm in 100 mls @ 100 mls/hr IVPB DAILY [facility] PRN Reason: Protocol Last Admin: 08/13/16 12:45 Dose: 100 mls/hr Iron Sucrose 200 mg/ Sodium (Chloride) 110 mls @ 110 mls/hr IVPB DAILY [facility] Stop: 08/16/16 10:01 Last Admin: 08/13/16 11:45 Dose: 110 mls/hr Sodium Chloride (Sodium Chloride 0.45%) 1,000 mls @ 50 mls/hr IV .Q20H [facility] Last Admin: 08/13/16 22:50 Dose: 50 mls/hr Losartan Potassium (Cozaar) 100 mg PO DAILY [facility] Meclizine HCl (Antivert) 12.5 mg PO BID PRN PRN Reason: Dizziness Last Admin: 08/10/16 10:26 Dose: 12.5 mg Metoprolol Tartrate (Lopressor) 25 mg PO BID [facility] Last Admin: 08/14/16 18:21 Dose: 25 mg Oxycodone/Acetaminophen (Percocet 5/325 Mg Tab) 1 tab PO Q6H PRN PRN Reason: Pain, moderate (4-7) Stop: 08/17/16 17:14 Last Admin: 08/14/16 18:19 Dose: 1 tab Pantoprazole Sodium (Protonix Ec Tab) 40 mg PO ACB [facility] Last Admin: 08/13/16 10:15 Dose: 40 mg - Labs Labs: 08/14/16 06:30 08/14/16 06:30 PT 12.3 Seconds (9.9-11.8) H 08/10/16 11:20 INR 1.14 (0.93-1.08) H 08/10/16 11:20 APTT 24.3 Seconds (23.7-30.8) 08/09/16 18:40 - Head Exam Head Exam: ATRAUMATIC - Eye Exam Eye Exam: Normal appearance - ENT Exam ENT Exam: Mucous Membranes Dry - Respiratory Exam Respiratory Exam: NORMAL BREATHING PATTERN - Cardiovascular Exam Cardiovascular Exam: +S1, +S2 - GI/Abdominal Exam GI & Abdominal Exam: Normal Bowel Sounds - Extremities Exam Extremities Exam: Normal Inspection Assessment and Plan (1) Anemia Assessment & Plan: iron deficiency s/p PRBC transfusion and IV iron s/p colonoscopy; f/u results Status: Acute
[2016-08-15] MEDS: Sodium Chloride 0.45% 1,000 ML IV SCH (03:50)
[2016-08-15] MEDS: Oxycodone/Acetaminophen 5/325 mg Tab PO PRN ×3 (05:35→19:04)
[2016-08-15] MEDS: Pantoprazole 40 mg EC Tab PO SCH (08:17)
[2016-08-15] MEDS: cefTRIAXone 1 gm 1 GM/100 ML BAG IVPB SCH (11:12)
[2016-08-15] MEDS: Digoxin 125 mcg (0.125 mg) Tab PO SCH (13:54)
--- NOTE | 2016-08-15 18:05 | PN ---
DATE: 08/15/2016 SUBJECTIVE: This patient was seen and evaluated earlier today. The patient remains still on a liqui d diet. No complaints of any abdominal pain. PHYSICAL EXAMINATION: VITAL SIGNS: Temperature 98.4, pulse is 75, blood pressure 136/80. HEENT: Atraumatic, anicteric. NECK: Supple. HEART: S1, S2 heard. LUNGS: Bilateral air entry present. ABDOMEN: Soft. There is no mass palpable. No tenderness. LABORATORY DATA: Hemoglobin, no recent labs today. IMPRESSION: This is an 80-year-old patient with a history of atrial fibrillation, admitted with anem ia as well as syncopal episode, history of angiodysplasias in the past, status post BICAP treatment i n the past, had recently undergone an upper GI endoscopy and also colonoscopy yesterday. The scope w as advanced only this time to the ascending colon. Multiple angiodysplasias were seen. Not am enable for endoscopic therapy at that time. 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 The patient also was found to have gastric ulcerations. I did discuss with Dr. Crum earlier yesterday. The plan is to continue the proton pump inhibitor, close followup of the hemoglobin and hematocrit. If the anticoagulation needs to be started, needs to be s tarted on heparin with close monitoring of the hemoglobin and hematocrit. The aspects of that, patient would benefit from long-term iron supplement. Thank you very much for allowing us to participate in the care of the patient. Ryan Gaytan MD cc: [id number] TT: 08/15/2016 18:04:34 Confirmation # [id number] Dictation # [id number] dn
--- NOTE | 2016-08-15 20:32 | CP.PCM.PN ---
Subjective - Date & Time of Evaluation Date of Evaluation: 08/15/16 Time of Evaluation: 13:15 - Subjective Subjective: No complaints Objective - Vital Signs/Intake and Output Vital Signs (last 24 hours): Temp Pulse Resp BP Pulse Ox 97.3 F L 74 20 143/75 99 08/15/16 16:00 08/15/16 16:00 08/15/16 16:00 08/15/16 16:00 08/15/16 16:00 Intake and Output: 08/15/16 08/16/16 18:59 06:59 Intake Total 120 Balance 120 - Medications Medications: Current Medications Amlodipine Besylate (Norvasc) 5 mg PO DAILY [facility] Last Admin: 08/15/16 09:18 Dose: 5 mg Atorvastatin Calcium (Lipitor) 20 mg PO DIN [facility] Last Admin: 08/15/16 17:24 Dose: 20 mg Cholecalciferol (Vitamin D) 1,000 iu PO DAILY [facility] Last Admin: 08/15/16 09:18 Dose: 1,000 iu Digoxin (Lanoxin) 0.125 mg PO 1400 [facility] Last Admin: 08/15/16 13:54 Dose: 0.125 mg Docusate Sodium (Colace) 100 mg PO BID [facility] Last Admin: 08/15/16 17:23 Dose: 100 mg Donepezil HCl (Aricept) 10 mg PO HS [facility] Last Admin: 08/14/16 22:18 Dose: 10 mg Hydralazine HCl (Apresoline) 25 mg PO QID PRN PRN Reason: Other Ceftriaxone Sodium (Rocephin 1 Gram Ivpb) 1 gm in 100 mls @ 100 mls/hr IVPB DAILY [facility] PRN Reason: Protocol Last Admin: 08/15/16 11:12 Dose: 100 mls/hr Iron Sucrose 200 mg/ Sodium (Chloride) 110 mls @ 110 mls/hr IVPB DAILY [facility] Stop: 08/16/16 10:01 Last Admin: 08/15/16 09:17 Dose: 110 mls/hr Losartan Potassium (Cozaar) 100 mg PO DAILY [facility] Last Admin: 08/15/16 09:18 Dose: 100 mg Meclizine HCl (Antivert) 12.5 mg PO BID PRN PRN Reason: Dizziness Last Admin: 08/10/16 10:26 Dose: 12.5 mg Metoprolol Tartrate (Lopressor) 25 mg PO BID [facility] Last Admin: 08/15/16 17:24 Dose: 25 mg Oxycodone/Acetaminophen (Percocet 5/325 Mg Tab) 1 tab PO Q6H PRN PRN Reason: Pain, moderate (4-7) Stop: 08/17/16 17:14 Last Admin: 08/15/16 19:04 Dose: 1 tab Pantoprazole Sodium (Protonix Ec Tab) 40 mg PO ACB [facility] Last Admin: 08/15/16 08:17 Dose: 40 mg - Labs Labs: 08/14/16 06:30 08/14/16 06:30 PT 12.3 Seconds (9.9-11.8) H 08/10/16 11:20 INR 1.14 (0.93-1.08) H 08/10/16 11:20 APTT 24.3 Seconds (23.7-30.8) 08/09/16 18:40 - Head Exam Head Exam: ATRAUMATIC - Eye Exam Eye Exam: Normal appearance - ENT Exam ENT Exam: Mucous Membranes Dry - Respiratory Exam Respiratory Exam: NORMAL BREATHING PATTERN - Cardiovascular Exam Cardiovascular Exam: +S1, +S2 - GI/Abdominal Exam GI & Abdominal Exam: Normal Bowel Sounds - Extremities Exam Extremities Exam: Normal Inspection Assessment and Plan (1) Anemia Assessment & Plan: iron deficiency from GI bleeding; s/p endoscopy s/p PRBC transfusion IV iron mild CKD Status: Acute
[2016-08-15] MEDS ORDERED: Heparin25000 units/250ml 1/2NS 25,000 UNITS/250 ML BAG IV PRN (21:40)
--- NOTE | 2016-08-15 23:25 | CP.PCM.PN ---
Subjective - Date & Time of Evaluation Date of Evaluation: 08/15/16 Time of Evaluation: 23:00 - Subjective Subjective: Internal Medicine/Infectious Disease Follow Up: August 15, 2016 80 yo AA female with syncopal episode at home witnessed in front of friends. The patient found to be anemic in hospital. Unclear if the patient is taking her medications at home. The patient has worsening signs of dementia. It is known that she refuses her memory medications at home. She live alone but had family nearby. Transfused two units of PRBCs yesterday. For cardiac workup. GI evaluation pending. Guiaic pending. Chronic Kidney Disease stage III. Cleared by Neurology and Cardiology. Followed by Hematology and Gastroenterology. In recovery s/p colonoscopy. Discussed with Dr. Gaytan. Discussed renal issues with Dr. Lemon especially difficult to control blood pressure. The patient with decrease in Hgb. Started heparin. TCU evaluation. Patient denies any complaints currently is groggy after procedure. Objective - Vital Signs/Intake and Output Vital Signs (last 24 hours): Temp Pulse Resp BP Pulse Ox 97.3 F L 74 20 143/75 99 08/15/16 16:00 08/15/16 16:00 08/15/16 16:00 08/15/16 16:00 08/15/16 16:00 Intake and Output: 08/15/16 08/16/16 18:59 06:59 Intake Total 120 Balance 120 - Medications Medications: Current Medications Amlodipine Besylate (Norvasc) 5 mg PO DAILY [facility] Last Admin: 08/15/16 09:18 Dose: 5 mg Atorvastatin Calcium (Lipitor) 20 mg PO DIN [facility] Last Admin: 08/15/16 17:24 Dose: 20 mg Cholecalciferol (Vitamin D) 1,000 iu PO DAILY [facility] Last Admin: 08/15/16 09:18 Dose: 1,000 iu Digoxin (Lanoxin) 0.125 mg PO 1400 [facility] Last Admin: 08/15/16 13:54 Dose: 0.125 mg Docusate Sodium (Colace) 100 mg PO BID [facility] Last Admin: 08/15/16 17:23 Dose: 100 mg Donepezil HCl (Aricept) 10 mg PO HS [facility] Last Admin: 08/15/16 21:17 Dose: 10 mg Hydralazine HCl (Apresoline) 25 mg PO QID PRN PRN Reason: Other Ceftriaxone Sodium (Rocephin 1 Gram Ivpb) 1 gm in 100 mls @ 100 mls/hr IVPB DAILY [facility] PRN Reason: Protocol Last Admin: 08/15/16 11:12 Dose: 100 mls/hr Iron Sucrose 200 mg/ Sodium (Chloride) 110 mls @ 110 mls/hr IVPB DAILY [facility] Stop: 08/16/16 10:01 Last Admin: 08/15/16 09:17 Dose: 110 mls/hr Heparin Sodium/Sodium Chloride (Heparin 70495 Units/250ml 1/2 Normal Saline) 25 ,000 units in 250 mls @ 10.581 mls/hr IV .[id number] PRN; Protocol; 18 UNITS/KG/HR PRN Reason: ADJUST RATE PER PROTOCOL Last Admin: 08/15/16 23:01 Dose: 18 units/kg/hr, 10.581 mls/hr Losartan Potassium (Cozaar) 100 mg PO DAILY [facility] Last Admin: 08/15/16 09:18 Dose: 100 mg Meclizine HCl (Antivert) 12.5 mg PO BID PRN PRN Reason: Dizziness Last Admin: 08/10/16 10:26 Dose: 12.5 mg Metoprolol Tartrate (Lopressor) 25 mg PO BID [facility] Last Admin: 08/15/16 17:24 Dose: 25 mg Oxycodone/Acetaminophen (Percocet 5/325 Mg Tab) 1 tab PO Q6H PRN PRN Reason: Pain, moderate (4-7) Stop: 08/17/16 17:14 Last Admin: 08/15/16 19:04 Dose: 1 tab Pantoprazole Sodium (Protonix Ec Tab) 40 mg PO ACB [facility] Last Admin: 08/15/16 08:17 Dose: 40 mg - Labs Labs: 08/14/16 06:30 08/14/16 06:30 PT 12.3 Seconds (9.9-11.8) H 08/10/16 11:20 INR 1.14 (0.93-1.08) H 08/10/16 11:20 APTT 24.3 Seconds (23.7-30.8) 08/09/16 18:40 - Constitutional Appears: Non-toxic, No Acute Distress, Chronically Ill - Head Exam Head Exam: ATRAUMATIC, NORMOCEPHALIC - Eye Exam Eye Exam: EOMI, PERRL Pupil Exam: NORMAL ACCOMODATION, PERRL - ENT Exam ENT Exam: Mucous Membranes Moist, Normal External Ear Exam, TM's Normal Bilaterally - Neck Exam Neck Exam: Full ROM, Normal Inspection - Respiratory Exam Respiratory Exam: Clear to Ausculation Bilateral, NORMAL BREATHING PATTERN. absent: Rales, Rhonchi, Wheezes - Cardiovascular Exam Cardiovascular Exam: REGULAR RHYTHM, RRR, +S1, +S2 - GI/Abdominal Exam GI & Abdominal Exam: Soft, Normal Bowel Sounds. absent: Distended, Tenderness - Extremities Exam Extremities Exam: Full ROM, Normal Inspection - Neurological Exam Neurological Exam: Alert, Awake, CN II-XII Intact, Oriented x3 - Psychiatric Exam Psychiatric exam: Normal Affect, Normal Mood - Skin Skin Exam: Intact, Normal Color Assessment and Plan - Assessment and Plan (Free Text) Assessment: 80 yo AA female with failing memory at home presenting with witnessed syncopal episode at home in front of friends. Brought to [facility] for further evaluation. Patient found to be anemic with loss of a few pounds compared to visit in the office a few weeks ago. Patient with known renal insufficiency following with Dr. Garduno/Gamaliel. Anemia and previous renal mass followed by Heme/Onc Dr. Sanchez. Syncope evaluation with Dr. Olivera of Neurology and Dr. Fonseca of Cardiology. GI evaluation with Dr. Gaytan as well. 2 units of PRBCs given for current anemia. Patient is significant dementia history that has worsened in the past 6-9 months. Patient known to miss doses of medication and sometimes takes medications twice. She lives alone but with some family nearby. Coloscopy done... discussed with Dr. Gaytan. Heparin started. TCU evaluation. Hgb dropped today over 1 pt. Supportive care. Cleared by Neurology and Cardiology. Followed by Hematology and Nephrology. Gastroenterology following.
[2016-08-16 00:09] LABS: URINE BILIRUBIN NEGATIVE (NEGATIVE); URINE BLOOD SMALL (NEGATIVE); URINE GLUCOSE (UA) NEGATIVE (NEGATIVE); URINE KETONE NEGATIVE (NEGATIVE); URINE LEUKOCYTE ESTERASE NEGATIVE Leu/uL (NEGATIVE); URINE PROTEIN 30 mg/dL (<30 mg/dL); URINE UROBILINOGEN 0.2 E.U./dL (<1 E.U./dL)
[2016-08-16 00:19] LABS: URINE APPEARANCE CLEAR (CLEAR); URINE COLOR YELLOW (YELLOW)
[2016-08-16 00:42] LABS: URINE EPITHELIAL CELLS 0 - 2 /hpf (0-5); URINE RBC 0 - 2 /hpf (0-2); URINE WBC 0 - 2 /hpf (0-6)
[2016-08-16 00:43] LABS: URINE BACTERIA SMALL (NEG)
[2016-08-16] MEDS: Oxycodone/Acetaminophen 5/325 mg Tab PO PRN ×2 (01:43→09:05)
[2016-08-16 05:28] LABS: HEMATOCRIT 30.1 % (36.0-48.0); MEAN CELL VOLUME 76.6 fL (80.0-105.0); MEAN CORPUSCULAR HEMOGLOBIN 24.2 pg (25.0-35.0); MEAN CORPUSCULAR HGB CONC 31.6 g/dl (31.0-37.0); MEAN PLATELET VOLUME 9.3 fl (7.0-11.0); WHITE BLOOD COUNT 8.7 10^3/ul (4.5-11.0)
[2016-08-16 05:36] LABS: CALCIUM 8.4 mg/dL (8.4-10.5)
[2016-08-16 06:26] LABS: INR 1.18 (0.93-1.08)
[2016-08-16 06:33] LABS: PARTIAL THROMBOPLASTIN TIME 153.6 Seconds (23.7-30.8)
[2016-08-16 07:18] VITALS: RESP 18; TEMP 98.2; O2SAT 93
[2016-08-16] MEDS: cefTRIAXone 1 gm 1 GM/100 ML BAG IVPB SCH (09:37)
[2016-08-16] MEDS: Pantoprazole 40 mg EC Tab PO SCH (09:38)
[2016-08-16 09:43] VITALS: PULSE 94
[2016-08-16 11:57] VITALS: BP 139/70
[2016-08-16] MEDS: Digoxin 125 mcg (0.125 mg) Tab PO SCH (15:18)
[2016-08-16 15:22] VITALS: PULSE 82
--- NOTE | 2016-08-16 17:24 | PN ---
DATE: 08/16/2016 SUBJECTIVE: This patient was seen and evaluated earlier. The patient is now tolerating the diet, on IV heparin now. PHYSICAL EXAMINATION: VITAL SIGNS: Temperature is 98.2, blood pressure is 139/70, pulse 84. HEENT: Atraumatic, anicteric. NECK: Supple. HEART: S1, S2 heard. LUNGS: Bilateral air entry present. ABDOMEN: Soft. There is no mass palpable. No tenderness. EXTREMITIES: No edema. LABORATORY DATA: Hemoglobin 9.5, hematocrit 30.1, WBC is 8.7, and platelets 135. BUN 13, creatinine 1.2. IMPRESSION: This is an 80-year-old patient with severe anemia, admitted with anemia and a syncopal e pisode. The patient was started on a diet, tolerating. The heparin was discontinued. The patient i s planned to be discharged to home. The patient needs to have close follow up of the hemoglobin and hematocrit with the anticoagulation is resumed. Would benefit from a repeat endoscopy in about 2 mo nths' time to assess the clearing of the ulcer. Ryan Gaytan MD cc: [id number] TT: 08/16/2016 17:23:19 Confirmation # [id number] Dictation # [id number] dn
--- NOTE | 2016-08-16 20:12 | CP.PCM.DIS ---
Provider - Provider Date of Admission: 08/09/16 19:31 Attending physician: Amador Crum MD Primary care physician: Amador Crum MD Consults: Neurology, Cardiology, Heme/Onc, Nephrology, Gastroenterology Time Spent in preparation of Discharge (in minutes): 30 Diagnosis - Discharge Diagnosis (1) GI bleed Status: Acute Priority: High Comment: performed colonoscopy and held anticoagulation. Hospital Course - Lab Results Lab Results: Micro Results 08/09/16 20:30 Blood-Venous Blood Culture - Final NO GROWTH AFTER 5 DAYS 08/09/16 20:30 Blood-Venous Gram Stain - Final TEST NOT PERFORMED 08/09/16 20:00 Blood-Venous Blood Culture - Final NO GROWTH AFTER 5 DAYS 08/09/16 20:00 Blood-Venous Gram Stain - Final TEST NOT PERFORMED Most Recent Lab Values WBC 8.7 10^3/ul (4.5-11.0) D 08/16/16 05:15 RBC 3.93 10^6/uL (3.5-6.1) 08/16/16 05:15 Hgb 9.5 gm/dL (12.0-16.0) L 08/16/16 05:15 Hct 30.1 % (36.0-48.0) L 08/16/16 05:15 MCV 76.6 fL (80.0-105.0) L 08/16/16 05:15 MCH 24.2 pg (25.0-35.0) L 08/16/16 05:15 MCHC 31.6 g/dl (31.0-37.0) 08/16/16 05:15 RDW 23.0 % (11.5-14.5) H 08/16/16 05:15 Plt Count 135 10^3/uL (120.0-450.0) 08/16/16 05:15 MPV 9.3 fl (7.0-11.0) 08/16/16 05:15 Gran % 71.8 % (50.0-68.0) H 08/14/16 06:30 Lymph % (Auto) 17.3 % (22.0-35.0) L 08/14/16 06:30 Alfalfa % (Auto) 7.3 % (1.0-6.0) H 08/14/16 06:30 Eos % (Auto) 3.3 % (1.5-5.0) 08/14/16 06:30 Baso % (Auto) 0.3 % (0.0-3.0) 08/14/16 06:30 Gran # 4.59 (1.4-6.5) 08/14/16 06:30 Lymph # 1.1 (1.2-3.4) L 08/14/16 06:30 Alfalfa # 0.5 (0.1-0.6) 08/14/16 06:30 Eos # 0.2 (0.0-0.7) 08/14/16 06:30 Baso # 0.02 K/mm3 (0.0-2.0) 08/14/16 06:30 Retic Count 1.84 % (0.5-1.5) H 08/10/16 11:20 PT 12.7 Seconds (9.9-11.8) H 08/16/16 05:15 INR 1.18 (0.93-1.08) H 08/16/16 05:15 APTT 150.1 Seconds (23.7-30.8) H* 08/16/16 14:21 Sodium 137 mmol/L (132-148) 08/16/16 05:15 Potassium 4.0 mmol/L (3.6-5.0) 08/16/16 05:15 Chloride 109 mmol/L (95-110) 08/16/16 05:15 Carbon Dioxide 19 mmol/L (21-33) L 08/16/16 05:15 Anion Gap 13 (10-20) 08/16/16 05:15 BUN 13 mg/dL (7-21) 08/16/16 05:15 Creatinine 1.2 mg/dL (0.5-1.4) 08/16/16 05:15 Est GFR ( Amer) 52 08/16/16 05:15 Est GFR (Non-Af Amer) 43 08/16/16 05:15 POC Glucose (mg/dL) 238 mg/dL (65-110) H 08/09/16 17:43 Random Glucose 92 mg/dL (70-110) 08/16/16 05:15 Calcium 8.4 mg/dL (8.4-10.5) 08/16/16 05:15 Iron 330 ug/dL (45-180) H 08/12/16 06:30 TIBC 364 ug/dL (265-497) 08/12/16 06:30 % Saturation 91 % (20-55) H 08/12/16 06:30 Ferritin 88.7 ng/mL 08/12/16 06:30 Total Bilirubin 0.6 mg/dL (0.2-1.3) 08/14/16 06:30 AST 35 U/L (15-39) 08/14/16 06:30 ALT 31 U/L (7-56) 08/14/16 06:30 Alkaline Phosphatase 81 U/L (38-133) 08/14/16 06:30 Lactate Dehydrogenase 457 U/L (333-699) 08/10/16 00:59 Total Creatine Kinase 42 U/L (35-230) 08/10/16 00:59 Troponin I 0.06 ng/mL 08/10/16 00:59 NT-Pro-B Natriuret Pep 2050 pg/mL (0-450) H 08/10/16 11:20 Total Protein 6.4 g/dL (5.8-8.3) 08/14/16 06:30 Albumin 3.0 g/dL (3.0-4.8) 08/14/16 06:30 Globulin 3.4 gm/dL 08/14/16 06:30 Albumin/Globulin Ratio 0.9 (1.1-1.8) L 08/14/16 06:30 Lipase 232 U/L (23-300) 08/09/16 18:40 Vitamin B12 443 pg/mL (239-931) 08/10/16 11:20 25-OH Vitamin D Total 20.5 NG/ML (30.0-100.0) L 08/12/16 06:30 Folate 9.7 ng/mL 08/10/16 11:20 TSH 3rd Generation 0.37 mIU/mL (0.46-4.68) L 08/09/16 18:40 PTH Intact Whole Molec 229 pg/mL (14-64) H 08/12/16 06:30 Urine Color Yellow (YELLOW) 08/15/16 11:59 Urine Appearance Clear (CLEAR) 08/15/16 11:59 Urine pH 6.0 (4.7-8.0) 08/15/16 11:59 Ur Specific [place] 1.020 (1.005-1.035) 08/15/16 11:59 Urine Protein 30 mg/dL (<30 mg/dL) H 08/15/16 11:59 Urine Glucose (UA) Negative mg/dL (NEGATIVE) 08/15/16 11:59 Urine Ketones Negative mg/dL (NEGATIVE) 08/15/16 11:59 Urine Blood Small (NEGATIVE) H 08/15/16 11:59 Urine Nitrate Negative (NEGATIVE) 08/15/16 11:59 Urine Bilirubin Negative (NEGATIVE) 08/15/16 11:59 Urine Urobilinogen 0.2 E.U./dL (<1 E.U./dL) 08/15/16 11:59 Ur Leukocyte Esterase Negative Chidi/uL (NEGATIVE) 08/15/16 11:59 Urine RBC 0 - 2 /hpf (0-2) 08/15/16 11:59 Urine WBC 0 - 2 /hpf (0-6) 08/15/16 11:59 Ur Epithelial Cells 0 - 2 /hpf (0-5) 08/15/16 11:59 Urine Bacteria Small (NEG) 08/15/16 11:59 Digoxin 2.0 ng/mL (0.8-2.0) 08/09/16 20:30 Blood Type AB POSITIVE 08/09/16 21:55 Antibody Screen Negative 08/09/16 21:55 Crossmatch See Detail 08/09/16 21:55 BBK History Checked Patient has bt 08/09/16 21:55 - Hospital Course Hospital Course: Internal Medicine/Infectious Disease Follow Up: August 16, 2016 80 yo AA female with syncopal episode at home witnessed in front of friends. The patient found to be anemic in hospital. Unclear if the patient is taking her medications at home. The patient has worsening signs of dementia. It is known that she refuses her memory medications at home. She live alone but had family nearby. Transfused two units of PRBCs yesterday. For cardiac workup. GI evaluation pending. Guiaic pending. Chronic Kidney Disease stage III. Cleared by Neurology and Cardiology. Followed by Hematology and Gastroenterology. In recovery s/p colonoscopy. Discussed with Dr. Gaytan. Patient found to have gastric ulcerations and AV malformations. Discussed renal issues with Dr. Lemon especially difficult to control blood pressure. The patient with decrease in Hgb. Started heparin. TCU evaluation. - Date & Time of H&P Date of H&P: 08/10/16 Time of H&P: 20:22 Discharge Exam - Head Exam Head Exam: ATRAUMATIC, NORMOCEPHALIC - Eye Exam Eye Exam: EOMI, PERRL Pupil Exam: NORMAL ACCOMODATION, PERRL - ENT Exam ENT Exam: Mucous Membranes Moist, Normal External Ear Exam, TM's Normal Bilaterally - Neck Exam Neck exam: Full Rom, Normal Inspection - Respiratory Exam Respiratory Exam: Clear to PA & Lateral, NORMAL BREATHING PATTERN. absent: Rales, Rhonchi, Wheezes - Cardiovascular Exam Cardiovascular Exam: REGULAR RHYTHM, RRR, +S1, +S2 - GI/Abdominal Exam GI & Abdominal Exam: Normal Bowel Sounds, Soft. absent: Distended, Tenderness - Extremities Exam Extremities exam: full ROM, normal inspection - Neurological Exam Neurological exam: Alert, Normal Gait - Skin Skin Exam: Intact, Normal Color Discharge Plan - Follow Up Plan Condition: FAIR Disposition: REHAB FACILITY/REHAB UNIT Instructions: Heart Healthy Diet (DC), Syncope (DC), Anemia (DC), Hypertension (DC), Hypertension (GEN), Renal Failure Diet (DC) Additional Instructions: patient being discharged to TCU.
== END 2016-08-16 16:01 | DRG 378 ==
LOC: ED 17:29 → ERH 19:31 → 2RNO 22:45 → 5RNO 08-12 22:59
PROVIDERS: ADMIT Internal Medicine Infectious Disease; ATTEND Internal Medicine Infectious Disease
PROC: 30233N1 Transfusion of Nonautologous Red Blood Cells into Peripheral Vein, Percutaneous Approach (ICD-10-PCS; 2016-08-10)
PROC: 0W3P8ZZ Control Bleeding in Gastrointestinal Tract, Via Natural or Artificial Opening Endoscopic (ICD-10-PCS; principal; 2016-08-14 15:30)
PROC: 0DB68ZX Excision of Stomach, Via Natural or Artificial Opening Endoscopic, Diagnostic (ICD-10-PCS; 2016-08-14 15:30)
DX: K55.21 Angiodysplasia of colon with hemorrhage (principal); D50.0 Iron deficiency anemia secondary to blood loss (chronic); N17.9 Acute kidney failure, unspecified; I42.0 Dilated cardiomyopathy; K25.9 Gastric ulcer, unspecified as acute or chronic, without hemorrhage or perforation; F03.90 Unspecified dementia, unspecified severity, without behavioral disturbance, psychotic disturbance, mood disturbance, and anxiety; I27.2 Other secondary pulmonary hypertension; I48.2 Chronic atrial fibrillation; E86.0 Dehydration; I12.9 Hypertensive chronic kidney disease with stage 1 through stage 4 chronic kidney disease, or unspecified chronic kidney disease; N25.81 Secondary hyperparathyroidism of renal origin; N18.3 Chronic kidney disease, stage 3 (moderate); E55.9 Vitamin D deficiency, unspecified; I08.1 Rheumatic disorders of both mitral and tricuspid valves; K55.20 Angiodysplasia of colon without hemorrhage; E78.5 Hyperlipidemia, unspecified; K57.30 Diverticulosis of large intestine without perforation or abscess without bleeding; E78.00 Pure hypercholesterolemia, unspecified; K64.8 Other hemorrhoids; F41.9 Anxiety disorder, unspecified; M19.90 Unspecified osteoarthritis, unspecified site; Z79.01 Long term (current) use of anticoagulants; Z85.528 Personal history of other malignant neoplasm of kidney; Z90.5 Acquired absence of kidney; Z85.828 Personal history of other malignant neoplasm of skin; Z86.73 Personal history of transient ischemic attack (TIA), and cerebral infarction without residual deficits; Z91.19 Patient's noncompliance with other medical treatment and regimen; Z82.49 Family history of ischemic heart disease and other diseases of the circulatory system

== ENCOUNTER 2016-08-16 16:01 | Inpatient (IN) | payer OTHER, MEDICARE ==
--- NOTE | 2016-08-16 19:24 | CP.PCM.HP ---
History of Present Illness - History of Present Illness History of Present Illness: Internal Medicine/Infectious Disease H&P: August 16, 2016 80 yo AA female with syncopal episode at home witnessed in front of friends. The patient found to be anemic in hospital. Unclear if the patient is taking her medications at home. The patient has worsening signs of dementia. It is known that she refuses her memory medications at home. She live alone but had family nearby. Transfused two units of PRBCs yesterday. For cardiac workup. GI evaluation pending. Guiaic pending. Chronic Kidney Disease stage III. Cleared by Neurology and Cardiology. Followed by Hematology and Gastroenterology. In recovery s/p colonoscopy. Discussed with Dr. Gaytan. Discussed renal issues with Dr. Lemon especially difficult to control blood pressure. The patient with decrease in Hgb. Started heparin. In TCU. Heparin on hold to adjust levels... watch for bleeding. Checking CBC values. PMHx: Hypertension, Anxiety, history of renal cancer/mass, sciatica, hypercholesterolemia, prior tobacco use history, atrial fibrillation. Last hospitalization showed ventricular fibrillation although it appears that occurred only once. Mass in right kidney that led to nephrectomy done by Dr. Hannon several years ago. PSHx: Nephrectomy, right side Allergies: NKDA Social Hx: No recent tobacco, EtOH, or illicit drug use. Recent loss of her brother ( occurred almost a year ago). Prior tobacco user. Active Medications Amlodipine Besylate (Norvasc) 5 mg PO DAILY [facility] PRN Reason: Protocol Atorvastatin Calcium (Lipitor) 20 mg PO DIN [facility] PRN Reason: Protocol Cholecalciferol (Vitamin D) 1,000 iu PO DAILY [facility] PRN Reason: Protocol Digoxin (Lanoxin) 0.125 mg PO 1400 [facility] PRN Reason: Protocol Docusate Sodium (Colace) 100 mg PO BID [facility] PRN Reason: Protocol Donepezil HCl (Aricept) 5 mg PO HS [facility] PRN Reason: Protocol Hydralazine HCl (Apresoline) 25 mg PO QID PRN; Protocol PRN Reason: Systolic Blood Pressure Heparin Sodium/Sodium Chloride (Heparin 42626 Units/250ml 1/2 Normal Saline) 25 ,000 units in 250 mls @ 6.831 mls/hr IV .Q24H PRN; Protocol; 11.62 UNITS/KG/HR PRN Reason: ADJUST RATE PER PROTOCOL Losartan Potassium (Cozaar) 100 mg PO DAILY [facility] PRN Reason: Protocol Meclizine HCl (Antivert) 12.5 mg PO BID PRN; Protocol PRN Reason: Dizziness Metoprolol Tartrate (Lopressor) 25 mg PO BID [facility] PRN Reason: Protocol Oxycodone/Acetaminophen (Percocet 5/325 Mg Tab) 1 tab PO Q6H PRN; Protocol PRN Reason: Pain, moderate (4-7) Pantoprazole Sodium (Protonix Ec Tab) 40 mg PO 0600 [facility] PRN Reason: Protocol Family Hx: CAD in multiple family members ROS: no fevers, chills, nausea, vomiting, diarrhea, headaches, dizziness, chest pain , abdominal pain, melena, hematuria, hematemesis, hematochezia, SOB, wheezing, vision loss, loss of consciousness, hearing loss. She has anxiety. Present on Admission - Present on Admission Any Indicators Present on Admission: No Past Patient History - Infectious Disease Hx of Infectious Diseases: None - Tetanus Immunizations Tetanus Immunization: >10 years Ago - Past Medical History & Family History Past Medical History?: Yes - Past Social History Smoking Status: Former Smoker Chewing Tobacco Use: No - CARDIAC Hx Cardiac Disorders: Yes Hx Hypertension: Yes - PULMONARY Hx Respiratory Disorders: No - NEUROLOGICAL Hx Neurological Disorder: No - HEENT Hx HEENT Problems: No - RENAL Hx Chronic Kidney Disease: Yes Hx Renal (Kidney) Cancer: Yes Other/Comment: Right nephrectomy - ENDOCRINE/METABOLIC Hx Endocrine Disorders: No - HEMATOLOGICAL/ONCOLOGICAL Hx Blood Transfusions: Yes Hx Blood Transfusion Reaction: No - INTEGUMENTARY Hx Dermatological Problems: No - MUSCULOSKELETAL/RHEUMATOLOGICAL Hx Falls: No - GASTROINTESTINAL Hx Gastrointestinal Disorders: No - GENITOURINARY/GYNECOLOGICAL Hx Genitourinary Disorders: No - PSYCHIATRIC Hx Psychophysiologic Disorder: Yes Hx Anxiety: Yes Hx Substance Use: No - SURGICAL HISTORY Hx Surgeries: Yes - ANESTHESIA Hx Anesthesia Reactions: No Hx Malignant Hyperthermia: No Meds Allergies/Adverse Reactions: Allergies Allergy/AdvReac Type Severity Reaction Status Date / Time No Known Allergies Allergy Verified 08/09/16 17:34 Physical Exam - Constitutional Appears: Non-toxic, No Acute Distress, Chronically Ill - Head Exam Head Exam: ATRAUMATIC, NORMOCEPHALIC - Eye Exam Eye Exam: EOMI, PERRL Pupil Exam: NORMAL ACCOMODATION, PERRL - ENT Exam ENT Exam: Mucous Membranes Moist, Normal External Ear Exam, TM's Normal Bilaterally - Neck Exam Neck exam: Positive for: Full Rom, Normal Inspection - Respiratory Exam Respiratory Exam: Clear to Auscultation Bilateral, NORMAL BREATHING PATTERN. absent: Rales, Rhonchi, Wheezes - Cardiovascular Exam Cardiovascular Exam: REGULAR RHYTHM, RRR, +S1, +S2 - GI/Abdominal Exam GI & Abdominal Exam: Normal Bowel Sounds, Soft. absent: Distended, Tenderness - Extremities Exam Extremities exam: Positive for: full ROM, normal inspection - Neurological Exam Neurological exam: Alert, CN II-XII Intact, Oriented x3 - Psychiatric Exam Psychiatric exam: Normal Affect, Normal Mood - Skin Skin Exam: Intact, Normal Color Results - Vital Signs Recent Vital Signs: Last Vital Signs Temp 98 F 08/16/16 17:00 Pulse 69 08/16/16 17:00 Resp 18 08/16/16 17:00 BP 146/91 H 08/16/16 17:00 Pulse Ox 96 08/16/16 17:00 Assessment & Plan - Assessment and Plan (Free Text) Assessment: 80 yo AA female with failing memory at home presenting with witnessed syncopal episode at home in front of friends. Brought to [facility] for further evaluation. Patient found to be anemic with loss of a few pounds compared to visit in the office a few weeks ago. Patient with known renal insufficiency following with Dr. Garduno/Gamaliel. Anemia and previous renal mass followed by Heme/Onc Dr. Sanchez. Syncope evaluation with Dr. Olivera of Neurology and Dr. Fonseca of Cardiology. GI evaluation with Dr. Gaytan as well. 2 units of PRBCs given for current anemia. Patient is significant dementia history that has worsened in the past 6-9 months. Patient known to miss doses of medication and sometimes takes medications twice. She lives alone but with some family nearby. Coloscopy done... discussed with Dr. Gaytan. Heparin started. Transferred to TCU. Hgb stable. Heparin on hold for elevated PTT. Supportive care. Cleared by Neurology and Cardiology. Followed by Hematology and Nephrology. Gastroenterology following.
[2016-08-16] MEDS: Oxycodone/Acetaminophen 5/325 mg Tab PO PRN (19:59)
--- NOTE | 2016-08-16 20:40 | CON ---
DATE: 08/16/2016 CHIEF COMPLAINT: History of recent syncope on 08/09/2016. HISTORY OF PRESENT ILLNESS: This is an 80-year-old -[place] woman with past medical history of hypertension for 20 years, renal cell cancer status post right nephrectomy, sciatica, hypercholest erolemia, history of prior tobacco use, history of atrial fibrillation on anticoagulation, history of dilated cardiomyopathy, who recently had a syncopal event on 08/09/2016 while she was at home. She was found to have symptomatic anemia. Her initial hemoglobin was 7, was transfused PRBCs and her hem oglobin eventually became stabilized and she had transient cerebral hypoperfusion to the brain with d rop in her systolic and diastolic blood pressure all contributing to her underlying syncopal event. GI was consulted and found to have some angiodysplasia indicating a possible risk for bleed in the GI tract from her being on anticoagulation, but she has afib which puts her at more risk for strokes. I was called to evaluate. She is on TRCU for underlying management for physical therapy for her deco nditioned state. Her hemoglobin is 9.5. She is getting 2 units of PRBCs right now, no further synco pal events. PAST MEDICAL HISTORY: History of renal cell carcinoma, status post right nephrectomy, sciatica, hype rcholesterolemia, history of prior tobacco use, history of afib, history of dilated cardiomyopathy. REVIEW OF SYSTEMS: A 14-point review of systems is negative except for HPI. SOCIAL HISTORY: No illicit drug use, smoking, or EtOH abuse. FAMILY HISTORY: Noncontributory. MEDICATIONS: Reviewed via nurse's reconciliation sheet. ALLERGIES: No known drug allergies. PHYSICAL EXAMINATION: VITAL SIGNS: Temperature 98, pulse rate is 69, blood pressure 146/91, respiratory rate of 18, oxygen 96% via room air. GENERAL: The patient is sitting up in bed, in no acute distress. HEENT: Atraumatic, normocephalic. PERRLA. Extraocular muscles intact. NECK: Supple, no JVD, no adenopathy noted. LUNGS: Clear to auscultation. No adventitious sounds. HEART: S1, S2, normal rate and rhythm. No murmurs, rubs, or gallops. ABDOMEN: Soft, nontender, nondistended. Bowel sounds are present. EXTREMITIES: No clubbing, no cyanosis. Peripheral pulses 2+ felt bilaterally. NEUROLOGIC: The patient is alert, oriented to person, place, month and year. Speech is fluent witho ut any errors. Recall after 5 minutes is 0/3. Poor attention span, slow thought process. Judgment is fair. Cranial nerves II-XII intact. Speech is fluent without any errors. Motor: Slight increas ed tone throughout. Moves all extremities equally. No pronator drift seen. Sensory: Light touch, p inprick, proprioception and vibration intact. DTRs was 1+ throughout. Coordination: Onstei-un-dbvh intact. Gait: Slightly wide-based, but Romberg negative. LABORATORIES: Sodium is 137, potassium 4, chloride of 109, carbon dioxide 19, BUN of 13, creatinine 1.2, random glucose of 92. ASSESSMENT AND PLAN: This is an 80-year-old -[place] woman with history of anxiety, hyperten mariam, renal cell cancer status post nephrectomy, sciatica, hypercholesterolemia, history of tobacco u se, history of atrial fibrillation on anticoagulation, history of dilated cardiomyopathy, had a synco pal event at home. During the hospital course was found to have symptomatic anemia, initially with a hemoglobin of 7, was transfused packed red blood cells and hemoglobin was brought back up. She had transient cerebral hypoperfusion with a drop in systolic and diastolic blood pressures which all in c ombination correspond to a syncopal event. She underwent GI evaluation for anemia where she was foun d to have some angiodysplasia where there is risk for GI bleeding for being on Coumadin, but neurolog ical clearance. At this time, I believe that given the risk of atrial fibrillation which is paroxysm al she would need to be on anticoagulation if she is not on any antiplatelet, as antiplatelet has a h igh risk of bleeding from angiodysplasia compared to an anticoagulant. I feel like we should take th e risks for benefit ratio in terms of her risk for stroke could be higher given her past medical hist ory and if cardiology clears as well as GI that I am okay with her being on anticoagulation. At this time, continue with physical and occupational therapy for deconditioned state and hydrate and contin ue to follow her H and H. Thank you for this consult. Please re-consult if necessary. Jayro Olivera MD cc: [phone] TT: 08/16/2016 20:39:47 Confirmation # [id number] Dictation # [id number] mn
[2016-08-17] MEDS: Pantoprazole 40 mg EC Tab PO SCH (05:32)
[2016-08-17] MEDS: Oxycodone/Acetaminophen 5/325 mg Tab PO PRN ×2 (06:42→13:00)
[2016-08-17 07:27] LABS: ADD MANUAL DIFF? NO
[2016-08-17 07:34] LABS: BASO # 0.05 K/mm3 (0.0-2.0); BASO % 0.7 % (0.0-3.0); EOS # 0.3 (0.0-0.7); EOS % 4.8 % (1.5-5.0); GRAN # 4.62 (1.4-6.5); GRAN % 67.6 % (50.0-68.0); HEMATOCRIT 29.3 % (36.0-48.0); LYMPH # 1.4 (1.2-3.4); LYMPH % 19.9 % (22.0-35.0); MEAN CELL VOLUME 76.7 fL (80.0-105.0); MEAN CORPUSCULAR HEMOGLOBIN 24.1 pg (25.0-35.0); MEAN CORPUSCULAR HGB CONC 31.4 g/dl (31.0-37.0); MEAN PLATELET VOLUME 9.8 fl (7.0-11.0); MONO # 0.5 (0.1-0.6); PLATELET COUNT 157 10^3/uL (120.0-450.0); RED CELL DISTRIBUTION WIDTH 23.5 % (11.5-14.5); WHITE BLOOD COUNT 6.8 10^3/ul (4.5-11.0)
[2016-08-17 07:49] LABS: INR 1.13 (0.93-1.08); PARTIAL THROMBOPLASTIN TIME 57.6 Seconds (23.7-30.8)
[2016-08-17 08:37] LABS: NEUTROPHIL 83 % (50.0-70.0)
[2016-08-17 08:39] LABS: EOSINOPHIL 6 % (0.0-3.0)
[2016-08-17 08:40] LABS: CORRECTED WBC 6.1 K/mm3 (4.5-11.0); HYPOCHROMIA 1+; MICROCYTOSIS SLIGHT; NUCLEATED RED BLOOD CELL 12 %; OVALOCYTES SLIGHT; PLATELET ESTIMATE NORMAL (NORMAL); POIKILOCYTOSIS SLIGHT
--- NOTE | 2016-08-17 14:18 | CP.PCM.PN ---
Subjective - Date & Time of Evaluation Date of Evaluation: 08/17/16 Time of Evaluation: 14:16 - Subjective Subjective: Follow up Nephrology Consultation: Assessment: Acute kidney injury likely hemodynamic: resolved Chronic Kidney Disease Stage 3 with ? proteinuria possibly due to HTN, age related decline, and s/p Rt nephrectomy due to hx of RCC Anemia s/p PRBC, Hypertension better controlled Vit D insufficiency with secondary hyperparathyroidism Plan Hypertension control with meds as ordered. She is already on statin started on vit D supplement 1000 unit/day ordered spot protein/creatinine and albumin/creatinine ratio Dose meds/antibiotics for reduced GFR ~ 40. Avoid fleets enema/magnesium based laxatives. Avoid nephrotoxins/NSAIDs/ iodinated contrast (unless needed emergently) Further work up as per primary team Thanks for allowing me to participate in care of your patient. Will follow patient with you. Please call if any Qs Dr Jt Lemon Office: [phone] HPI: Pt is a 80 y/o F with hx of hypertension (20 years) , renal cell cancer s/ p unilateral total nephrectomy, CKD stage 3 with baseline cr 1.4-1.7 since 2017 , anemia, A fib came with anemia and dizziness ? syncope. found to have anemia and got PRBC transfusion renal consult for elevated creatinine eval. Subjective: noted events overnight Denies chest pain, palpitation, shortness of breath, leg swelling Denies blood or bubbles in urine denies NSAIDs. had colonoscopy wednesday Physical Examination: General Appearance: Comfortable, in no acute respiratory distress, co-operative Vitals reviewed and noted as below Lungs: Normal respiratory rate/effort. Breath sounds bilateral equal and clear Heart: Normal rate. s1s2 normal. No rub or gallop. Skin: Warm and dry. Normal turgor. No rash. Palpitation: Normal elasticity for age Abdomen: Abdomen is soft. Bowel sounds +. There is no abdominal tenderness, no guarding/rigidity or organomegaly. : kidney or bladder not palpable Labs/imaging reviewed. Past medical history, past surgical history, family history, social history, allergy reviewed work up: CT head and CXR unremarkable BNP 2049 UA: [address] 2017: s/p Rt nephrectomy, left kidney unremarkable TSAT 91% Ferritin 9 Vit D 21 PTH 229 Objective - Vital Signs/Intake and Output Vital Signs (last 24 hours): Temp Pulse Resp BP Pulse Ox 98.1 F 51 L 16 122/54 L 94 L 08/17/16 10:00 08/17/16 10:00 08/17/16 10:00 08/17/16 10:00 08/17/16 10:00 Intake and Output: 08/17/16 08/17/16 06:59 18:59 Intake Total 420 Balance 420 - Medications Medications: Current Medications Alprazolam (Xanax) 0.5 mg PO Q12H PRN; Protocol PRN Reason: Anxiety Last Admin: 08/17/16 11:11 Dose: 0.5 mg Amlodipine Besylate (Norvasc) 5 mg PO DAILY [facility] PRN Reason: Protocol Last Admin: 08/17/16 09:49 Dose: 5 mg Atorvastatin Calcium (Lipitor) 20 mg PO DIN [facility] PRN Reason: Protocol Cholecalciferol (Vitamin D) 1,000 iu PO DAILY [facility] PRN Reason: Protocol Last Admin: 08/17/16 09:49 Dose: 1,000 iu Digoxin (Lanoxin) 0.125 mg PO 1400 [facility] PRN Reason: Protocol Docusate Sodium (Colace) 100 mg PO BID [facility] PRN Reason: Protocol Last Admin: 08/17/16 09:47 Dose: 100 mg Donepezil HCl (Aricept) 5 mg PO HS [facility] PRN Reason: Protocol Last Admin: 08/16/16 22:13 Dose: 5 mg Hydralazine HCl (Apresoline) 25 mg PO QID PRN; Protocol PRN Reason: Systolic Blood Pressure Heparin Sodium/Sodium Chloride (Heparin 65052 Units/250ml 1/2 Normal Saline) 25 ,000 units in 250 mls @ 6.831 mls/hr IV .Q24H PRN; Protocol; 11.62 UNITS/KG/HR PRN Reason: ADJUST RATE PER PROTOCOL Losartan Potassium (Cozaar) 100 mg PO DAILY [facility] PRN Reason: Protocol Last Admin: 08/17/16 09:48 Dose: 100 mg Meclizine HCl (Antivert) 12.5 mg PO BID PRN; Protocol PRN Reason: Dizziness Metoprolol Tartrate (Lopressor) 25 mg PO BID [facility] PRN Reason: Protocol Last Admin: 08/17/16 09:48 Dose: 25 mg Oxycodone/Acetaminophen (Percocet 5/325 Mg Tab) 1 tab PO Q6H PRN; Protocol PRN Reason: Pain, moderate (4-7) Last Admin: 08/17/16 13:00 Dose: 1 tab Pantoprazole Sodium (Protonix Ec Tab) 40 mg PO 0600 [facility] PRN Reason: Protocol Last Admin: 08/17/16 05:32 Dose: 40 mg - Labs Labs: 08/17/16 07:00 PT 12.2 Seconds (9.9-11.8) H 08/17/16 07:00 INR 1.13 (0.93-1.08) H 08/17/16 07:00 APTT 57.6 Seconds (23.7-30.8) H 08/17/16 07:00
[2016-08-17] MEDS: Digoxin 125 mcg (0.125 mg) Tab PO SCH (14:42)
--- NOTE | 2016-08-17 16:21 | PN ---
DATE: 08/17/2016 Seen and examined at the bedside earlier today. No acute overnight events reported. The patient is currently on heparin. No reports of any overt GI bleed. VITAL SIGNS: Temperature is 98.1, blood pressure 122/54, pulse 51, respirations 16, 94 on room air. PHYSICAL EXAMINATION: HEENT: Sclerae are anicteric. NECK: Supple. CARDIAC: S1, S2. LUNGS: Decreased breath sounds, but good air entry. No rales or wheeze. ABDOMEN: With bowel sounds, soft. No tenderness. No rebound, guarding, or organomegaly. ASSESSMENT: This is an 80-year-old female who came with syncopal episode and found to have severe an emia, status post blood transfusion. She has history of AVMs. The patient underwent an endoscopy an d colonoscopy and found to have peptic ulcer disease and AVMs that were BICAP'd. The patient also stroud s a history of atrial fibrillation as well as history of renal mass and a right nephrectomy. PLAN: The patient is back on her heparin drip per protocol for anticoagulation and should continue t o follow her H and H closely and signs for any overt GI bleed. The patient is on stool softeners. C ontinue GI prophylaxis. She is on Protonix 40 daily. The patient also needs a repeat endoscopy to f ollow up the ulcers in 2 months' time. The patient was seen and case discussed with Dr. Gaytan. Elyse BORRERO cc: [id number] TT: 08/17/2016 16:07:42 Confirmation # [id number] Dictation # [id number] mn
--- NOTE | 2016-08-17 18:48 | CP.PCM.PN ---
Subjective - Date & Time of Evaluation Date of Evaluation: 08/17/16 Time of Evaluation: 17:30 - Subjective Subjective: Internal Medicine/Infectious Disease H&P: August 17, 2016 80 yo AA female with syncopal episode at home witnessed in front of friends. The patient found to be anemic in hospital. Unclear if the patient is taking her medications at home. The patient has worsening signs of dementia. It is known that she refuses her memory medications at home. She live alone but had family nearby. Transfused two units of PRBCs yesterday. For cardiac workup. GI evaluation pending. Guiaic pending. Chronic Kidney Disease stage III. Cleared by Neurology and Cardiology. Followed by Hematology and Gastroenterology. In recovery s/p colonoscopy. Discussed with Dr. Gaytan. Discussed renal issues with Dr. Lemon especially difficult to control blood pressure. The patient with decrease in Hgb. Started heparin. In TCU. Heparin restarted and adjusting levels... watch for bleeding. Checking CBC values. To restart Coumadin. Hgb is holding steady. Supportive care. Objective - Vital Signs/Intake and Output Vital Signs (last 24 hours): Temp Pulse Resp BP Pulse Ox 97.2 F L 74 18 119/74 100 08/17/16 16:00 08/17/16 17:25 08/17/16 16:00 08/17/16 17:25 08/17/16 16:00 Intake and Output: 08/17/16 08/17/16 06:59 18:59 Intake Total 420 Balance 420 - Medications Medications: Current Medications Alprazolam (Xanax) 0.5 mg PO Q12H PRN; Protocol PRN Reason: Anxiety Last Admin: 08/17/16 11:11 Dose: 0.5 mg Amlodipine Besylate (Norvasc) 5 mg PO DAILY [facility] PRN Reason: Protocol Last Admin: 08/17/16 09:49 Dose: 5 mg Atorvastatin Calcium (Lipitor) 20 mg PO DIN [facility] PRN Reason: Protocol Last Admin: 08/17/16 17:25 Dose: 20 mg Cholecalciferol (Vitamin D) 1,000 iu PO DAILY [facility] PRN Reason: Protocol Last Admin: 08/17/16 09:49 Dose: 1,000 iu Digoxin (Lanoxin) 0.125 mg PO 1400 [facility] PRN Reason: Protocol Last Admin: 08/17/16 14:42 Dose: Not Given Docusate Sodium (Colace) 100 mg PO BID [facility] PRN Reason: Protocol Last Admin: 08/17/16 17:24 Dose: 100 mg Donepezil HCl (Aricept) 5 mg PO HS [facility] PRN Reason: Protocol Last Admin: 08/16/16 22:13 Dose: 5 mg Hydralazine HCl (Apresoline) 25 mg PO QID PRN; Protocol PRN Reason: Systolic Blood Pressure Heparin Sodium/Sodium Chloride (Heparin 15765 Units/250ml 1/2 Normal Saline) 25 ,000 units in 250 mls @ 6.831 mls/hr IV .Q24H PRN; Protocol; 11.62 UNITS/KG/HR PRN Reason: ADJUST RATE PER PROTOCOL Losartan Potassium (Cozaar) 100 mg PO DAILY [facility] PRN Reason: Protocol Last Admin: 08/17/16 09:48 Dose: 100 mg Meclizine HCl (Antivert) 12.5 mg PO BID PRN; Protocol PRN Reason: Dizziness Metoprolol Tartrate (Lopressor) 25 mg PO BID [facility] PRN Reason: Protocol Last Admin: 08/17/16 17:25 Dose: 25 mg Oxycodone/Acetaminophen (Percocet 5/325 Mg Tab) 1 tab PO Q6H PRN; Protocol PRN Reason: Pain, moderate (4-7) Last Admin: 08/17/16 13:00 Dose: 1 tab Pantoprazole Sodium (Protonix Ec Tab) 40 mg PO 0600 [facility] PRN Reason: Protocol Last Admin: 08/17/16 05:32 Dose: 40 mg Warfarin Sodium (Coumadin) 4 mg PO 1800 [facility] PRN Reason: Protocol - Labs Labs: 08/17/16 07:00 PT 12.2 Seconds (9.9-11.8) H 08/17/16 07:00 INR 1.13 (0.93-1.08) H 08/17/16 07:00 APTT 50.5 Seconds (23.7-30.8) H 08/17/16 14:05 - Constitutional Appears: Non-toxic, No Acute Distress, Chronically Ill - Head Exam Head Exam: ATRAUMATIC, NORMOCEPHALIC - Eye Exam Eye Exam: EOMI, PERRL Pupil Exam: NORMAL ACCOMODATION, PERRL - ENT Exam ENT Exam: Mucous Membranes Moist, Normal External Ear Exam, TM's Normal Bilaterally - Neck Exam Neck Exam: Full ROM, Normal Inspection - Respiratory Exam Respiratory Exam: Clear to Ausculation Bilateral, NORMAL BREATHING PATTERN. absent: Rales, Rhonchi, Wheezes - Cardiovascular Exam Cardiovascular Exam: REGULAR RHYTHM, RRR, +S1, +S2 - GI/Abdominal Exam GI & Abdominal Exam: Soft, Normal Bowel Sounds. absent: Distended, Tenderness - Extremities Exam Extremities Exam: Full ROM, Normal Inspection - Neurological Exam Neurological Exam: Alert, Awake, CN II-XII Intact, Oriented x3 - Psychiatric Exam Psychiatric exam: Normal Affect, Normal Mood - Skin Skin Exam: Intact, Normal Color Assessment and Plan - Assessment and Plan (Free Text) Assessment: 80 yo AA female with failing memory at home presenting with witnessed syncopal episode at home in front of friends. [place] [facility] [place]. Patient found to be anemic with loss of a few pounds compared to visit in the office a few weeks ago. Patient with known renal insufficiency following with Dr. Garduno/Gamaliel. Anemia and previous renal mass followed by Heme/Onc Dr. Sanchez. Syncope evaluation with Dr. Olivera of Neurology and Dr. Fonseca of Cardiology. GI evaluation with Dr. Gaytan as well. 2 units of PRBCs given for current anemia. Patient is significant dementia history that has worsened in the past 6-9 months. Patient known to miss doses of medication and sometimes takes medications twice. She lives alone but with some family nearby. Coloscopy done... discussed with Dr. Gaytan. Heparin started. Transferred to TCU. Hgb stable. Heparin restarted. Coumadin to restart. Supportive care. Cleared by Neurology and Cardiology. Followed by Hematology and Nephrology. Gastroenterology following. Patient remains forgetful.
--- NOTE | 2016-08-17 18:59 | PN ---
DATE: 08/17/2016 ADDENDUM This is an addendum to the GI progress report dictated by Elyse Moran APN. The patient is presently on IV heparin. The patient did have the endoscopy and also colonoscopy done up to ascending colon. Multiple hairline AVMs are noticed. One AVM in the hepatic flexure was treated. Other AVMs are too small and diffuse, not treated. The patient did have a gastric ulcer biopsy, pathology is still pen ding. We will continue to closely follow up the patient. We need to follow up the hemoglobin and he matocrit and follow up the pathology. Thank you very much for allowing us to participate in the care of the patient. The patient would amilcar efit from repeating the EGD in about 2 months' time to evaluate the healing of the ulcer and biopsy f robbi. Thank you very much for allowing us to participate in the care of the patient. Ryan Gaytan MD cc: [id number] TT: 08/17/2016 18:58:53 Confirmation # [id number] Dictation # [id number] mone
[2016-08-18] MEDS: Oxycodone/Acetaminophen 5/325 mg Tab PO PRN ×2 (03:01→17:21)
[2016-08-18] MEDS: Pantoprazole 40 mg EC Tab PO SCH (05:54)
[2016-08-18 07:01] LABS: HEMATOCRIT 29.8 % (36.0-48.0); MEAN CELL VOLUME 77.4 fL (80.0-105.0); MEAN CORPUSCULAR HEMOGLOBIN 24.7 pg (25.0-35.0); MEAN CORPUSCULAR HGB CONC 31.9 g/dl (31.0-37.0); MEAN PLATELET VOLUME 9.7 fl (7.0-11.0); RED CELL DISTRIBUTION WIDTH 24.2 % (11.5-14.5)
[2016-08-18 07:21] LABS: INR 1.06 (0.93-1.08); PARTIAL THROMBOPLASTIN TIME 49.8 Seconds (23.7-30.8)
--- NOTE | 2016-08-18 12:52 | CP.PCM.PN ---
Subjective - Date & Time of Evaluation Date of Evaluation: 08/18/16 Time of Evaluation: 12:51 - Subjective Subjective: Follow up Nephrology Consultation: Assessment: Acute kidney injury likely hemodynamic: resolved Chronic Kidney Disease Stage 3 with ? proteinuria possibly due to HTN, age related decline, and s/p Rt nephrectomy due to hx of RCC Anemia s/p PRBC, Hypertension better controlled Vit D insufficiency with secondary hyperparathyroidism Plan Hypertension control with meds as ordered. increased norvasc to 10 mg/day She is already on statin started on vit D supplement 1000 unit/day ordered spot protein/creatinine and albumin/creatinine ratio Dose meds/antibiotics for reduced GFR ~ 40. Avoid fleets enema/magnesium based laxatives. Avoid nephrotoxins/NSAIDs/ iodinated contrast (unless needed emergently) Further work up as per primary team Thanks for allowing me to participate in care of your patient. Will follow patient with you. Please call if any Qs Dr Jt Lemon Office: [phone] HPI: Pt is a 80 y/o F with hx of hypertension (20 years) , renal cell cancer s/ p unilateral total nephrectomy, CKD stage 3 with baseline cr 1.4-1.7 since 2017 , anemia, A fib came with anemia and dizziness ? syncope. found to have anemia and got PRBC transfusion renal consult for elevated creatinine eval and HTN control Subjective: noted events overnight Denies chest pain, palpitation, shortness of breath, leg swelling Denies blood or bubbles in urine denies NSAIDs. had colonoscopy wednesday wants to go home Physical Examination: General Appearance: Comfortable, in no acute respiratory distress, co-operative Vitals reviewed and noted as below Lungs: Normal respiratory rate/effort. Breath sounds bilateral equal and clear Heart: Normal rate. s1s2 normal. No rub or gallop. Skin: Warm and dry. Normal turgor. No rash. Palpitation: Normal elasticity for age Abdomen: Abdomen is soft. Bowel sounds +. There is no abdominal tenderness, no guarding/rigidity or organomegaly. : kidney or bladder not palpable Labs/imaging reviewed. Past medical history, past surgical history, family history, social history, allergy reviewed work up: CT head and CXR unremarkable BNP 2050 UA: [address] 2017: s/p Rt nephrectomy, left kidney unremarkable TSAT 91% Ferritin 9 Vit D 21 PTH 229 Objective - Vital Signs/Intake and Output Vital Signs (last 24 hours): Temp Pulse Resp BP Pulse Ox 97.2 F L 93 H 18 191/91 H 100 08/17/16 16:00 08/18/16 10:10 08/17/16 16:00 08/18/16 10:10 08/17/16 16:00 - Medications Medications: Current Medications Alprazolam (Xanax) 0.5 mg PO Q12H PRN; Protocol PRN Reason: Anxiety Last Admin: 08/17/16 11:11 Dose: 0.5 mg Amlodipine Besylate (Norvasc) 5 mg PO ONCE [facility] Amlodipine Besylate (Norvasc) 10 mg PO DAILY [facility] PRN Reason: Protocol Atorvastatin Calcium (Lipitor) 20 mg PO DIN [facility] PRN Reason: Protocol Last Admin: 08/17/16 17:25 Dose: 20 mg Cholecalciferol (Vitamin D) 1,000 iu PO DAILY [facility] PRN Reason: Protocol Last Admin: 08/18/16 10:11 Dose: 1,000 iu Digoxin (Lanoxin) 0.125 mg PO 1400 [facility] PRN Reason: Protocol Last Admin: 08/17/16 14:42 Dose: Not Given Docusate Sodium (Colace) 100 mg PO BID [facility] PRN Reason: Protocol Last Admin: 08/18/16 10:09 Dose: 100 mg Donepezil HCl (Aricept) 5 mg PO HS [facility] PRN Reason: Protocol Last Admin: 08/17/16 21:41 Dose: 5 mg Hydralazine HCl (Apresoline) 25 mg PO QID PRN; Protocol PRN Reason: Systolic Blood Pressure Heparin Sodium/Sodium Chloride (Heparin 61388 Units/250ml 1/2 Normal Saline) 25 ,000 units in 250 mls @ 6.831 mls/hr IV .Q24H PRN; Protocol; 11.62 UNITS/KG/HR PRN Reason: ADJUST RATE PER PROTOCOL Linezolid (Zyvox 600mg/300ml D5w) 600 mg in 300 mls @ 200 mls/hr IVPB 0600, 1800 [facility] PRN Reason: Protocol Stop: 08/22/16 07:29 Losartan Potassium (Cozaar) 100 mg PO DAILY [facility] PRN Reason: Protocol Last Admin: 08/18/16 10:10 Dose: 100 mg Meclizine HCl (Antivert) 12.5 mg PO BID PRN; Protocol PRN Reason: Dizziness Metoprolol Tartrate (Lopressor) 25 mg PO BID [facility] PRN Reason: Protocol Last Admin: 08/18/16 10:10 Dose: 25 mg Oxycodone/Acetaminophen (Percocet 5/325 Mg Tab) 1 tab PO Q6H PRN; Protocol PRN Reason: Pain, moderate (4-7) Last Admin: 08/18/16 03:01 Dose: 1 tab Pantoprazole Sodium (Protonix Ec Tab) 40 mg PO 0600 [facility] PRN Reason: Protocol Last Admin: 08/18/16 05:54 Dose: 40 mg Warfarin Sodium (Coumadin) 4 mg PO 1800 [facility] PRN Reason: Protocol - Labs Labs: 08/18/16 06:30 PT 11.5 Seconds (9.9-11.8) 08/18/16 06:30 INR 1.06 (0.93-1.08) 08/18/16 06:30 APTT 49.8 Seconds (23.7-30.8) H 08/18/16 06:30
[2016-08-18] MEDS: Linezolid 600 mg in D5W 300 ml 600 MG/300 ML BAG IVPB SCH (12:56)
[2016-08-18] MEDS: Digoxin 125 mcg (0.125 mg) Tab PO SCH (13:23)
--- NOTE | 2016-08-18 16:40 | CP.PCM.CON ---
History of Present Illness - History of Present Illness History of Present Illness: 80 year old female with a history of HTN, HL, afib, renal cell carcinoma s/p surgery, recently discharged to TCU after a syncopal episode and iron deficiency anemia. She underwent PRBC transfusion support and parenteral iron. She underwent GI work up and endoscopy which revealed multiple AVMs and gastric ulcer s/p biopsy. SHe is curently feeling better and notes her appetite is improved. Past medical history: HTN, HL, afib, renal cell carcinoma s/p surgery Past surgical history: Renal cell carcinoma resection Family history: Denies hematologic and oncologic problems Social history: Denies tobacco, alcohol, and illicit drug use. Allergies: NKA Review of systems: All remaining review of systems including HEENT, cardiovascular, respiratory, gastrointestinal, genitourinary, musculoskeletal, dermatologic, neurologic, and psychiatric are negative unless mentioned in the HPI. Past Patient History - Infectious Disease Hx of Infectious Diseases: None - Tetanus Immunizations Tetanus Immunization: >10 years Ago - Past Medical History & Family History Past Medical History?: Yes - Past Social History Smoking Status: Former Smoker - CARDIAC Hx Cardiac Disorders: Yes Hx Hypertension: Yes - PULMONARY Hx Respiratory Disorders: No - NEUROLOGICAL HX Cerebrovascular Accident: Yes - HEENT Hx HEENT Problems: No - RENAL Hx Chronic Kidney Disease: Yes Hx Renal (Kidney) Cancer: Yes Other/Comment: Right nephrectomy - ENDOCRINE/METABOLIC Hx Endocrine Disorders: No - HEMATOLOGICAL/ONCOLOGICAL Hx Blood Disorders: No - INTEGUMENTARY Hx Dermatological Problems: No - MUSCULOSKELETAL/RHEUMATOLOGICAL Hx Arthritis: Yes - GASTROINTESTINAL Hx Gastrointestinal Disorders: No - GENITOURINARY/GYNECOLOGICAL Hx Genitourinary Disorders: No - PSYCHIATRIC Hx Psychophysiologic Disorder: Yes Hx Anxiety: Yes - SURGICAL HISTORY Hx Surgeries: Yes - ANESTHESIA Hx Anesthesia Reactions: No Hx Malignant Hyperthermia: No Meds Allergies/Adverse Reactions: Allergies Allergy/AdvReac Type Severity Reaction Status Date / Time No Known Allergies Allergy Verified 08/09/16 17:34 - Medications Medications: Current Medications Alprazolam (Xanax) 0.5 mg PO Q12H PRN; Protocol PRN Reason: Anxiety Last Admin: 08/17/16 11:11 Dose: 0.5 mg Amlodipine Besylate (Norvasc) 5 mg PO ONCE [facility]AI Last Admin: 08/18/16 12:51 Dose: 5 mg Amlodipine Besylate (Norvasc) 10 mg PO DAILY [facility] PRN Reason: Protocol Atorvastatin Calcium (Lipitor) 20 mg PO DIN [facility] PRN Reason: Protocol Last Admin: 08/17/16 17:25 Dose: 20 mg Cholecalciferol (Vitamin D) 1,000 iu PO DAILY [facility] PRN Reason: Protocol Last Admin: 08/18/16 10:11 Dose: 1,000 iu Digoxin (Lanoxin) 0.125 mg PO 1400 [facility] PRN Reason: Protocol Last Admin: 08/18/16 13:23 Dose: 0.125 mg Docusate Sodium (Colace) 100 mg PO BID [facility] PRN Reason: Protocol Last Admin: 08/18/16 10:09 Dose: 100 mg Donepezil HCl (Aricept) 5 mg PO HS [facility] PRN Reason: Protocol Last Admin: 08/17/16 21:41 Dose: 5 mg Hydralazine HCl (Apresoline) 25 mg PO QID PRN; Protocol PRN Reason: Systolic Blood Pressure Heparin Sodium/Sodium Chloride (Heparin 92514 Units/250ml 1/2 Normal Saline) 25 ,000 units in 250 mls @ 6.831 mls/hr IV .Q24H PRN; Protocol; 11.62 UNITS/KG/HR PRN Reason: ADJUST RATE PER PROTOCOL Linezolid (Zyvox 600mg/300ml D5w) 600 mg in 300 mls @ 200 mls/hr IVPB 0600, 1800 [facility] PRN Reason: Protocol Stop: 08/22/16 07:29 Last Admin: 08/18/16 12:56 Dose: 200 mls/hr Losartan Potassium (Cozaar) 100 mg PO DAILY [facility] PRN Reason: Protocol Last Admin: 08/18/16 10:10 Dose: 100 mg Meclizine HCl (Antivert) 12.5 mg PO BID PRN; Protocol PRN Reason: Dizziness Metoprolol Tartrate (Lopressor) 25 mg PO BID [facility] PRN Reason: Protocol Last Admin: 08/18/16 10:10 Dose: 25 mg Oxycodone/Acetaminophen (Percocet 5/325 Mg Tab) 1 tab PO Q6H PRN; Protocol PRN Reason: Pain, moderate (4-7) Last Admin: 08/18/16 03:01 Dose: 1 tab Pantoprazole Sodium (Protonix Ec Tab) 40 mg PO 0600 [facility] PRN Reason: Protocol Last Admin: 08/18/16 05:54 Dose: 40 mg Warfarin Sodium (Coumadin) 4 mg PO 1800 [facility] PRN Reason: Protocol Physical Exam - Head Exam Head Exam: ATRAUMATIC - Eye Exam Eye Exam: Normal appearance - ENT Exam ENT Exam: Mucous Membranes Dry - Respiratory Exam Respiratory Exam: NORMAL BREATHING PATTERN - Cardiovascular Exam Cardiovascular Exam: +S1, +S2 - GI/Abdominal Exam GI & Abdominal Exam: Normal Bowel Sounds - Extremities Exam Extremities exam: Positive for: normal inspection - Neurological Exam Neurological exam: Oriented x3 - Psychiatric Exam Psychiatric exam: Normal Affect, Normal Mood - Skin Skin Exam: Warm Results - Vital Signs Recent Vital Signs: Last Vital Signs Temp 97.2 F L 08/17/16 16:00 Pulse 91 H 08/18/16 12:51 Resp 18 08/17/16 16:00 BP 191/95 H 08/18/16 12:51 Pulse Ox 100 08/17/16 16:00 - Labs Result Diagrams: 08/18/16 06:30 Labs: Laboratory Results - last 24 hr 08/17/16 08/18/16 08/18/16 22:10 06:30 06:30 WBC 7.0 RBC 3.85 Hgb 9.5 L Hct 29.8 L MCV 77.4 L MCH 24.7 L MCHC 31.9 RDW 24.2 H Plt Count 187 MPV 9.7 PT 11.5 INR 1.06 APTT 53.7 H 49.8 H Assessment & Plan (1) Anemia Assessment and Plan: work up consistent with iron deficiency anemia s/p PRBC transfusion and parenteral iron H/H stable on anticoagulation outpatient evaluation of iron stores and PRN Venofer Status: Acute
--- NOTE | 2016-08-18 19:35 | CP.PCM.PN ---
Subjective - Date & Time of Evaluation Date of Evaluation: 08/18/16 Time of Evaluation: 18:30 - Subjective Subjective: Internal Medicine/Infectious Disease Follow Up: August 18, 2016 80 yo AA female with syncopal episode at home witnessed in front of friends. The patient found to be anemic in hospital. Unclear if the patient is taking her medications at home. The patient has worsening signs of dementia. It is known that she refuses her memory medications at home. She live alone but had family nearby. Transfused two units of PRBCs yesterday. For cardiac workup. GI evaluation pending. Guiaic pending. Chronic Kidney Disease stage III. Cleared by Neurology and Cardiology. Followed by Hematology and Gastroenterology. In recovery s/p colonoscopy. Discussed with Dr. Gaytan. Discussed renal issues with Dr. Lemon especially difficult to control blood pressure. The patient with decrease in Hgb. Started heparin. In TCU. Heparin restarted and adjusting levels... watch for bleeding. Checking CBC values. To restart Coumadin. Hgb is holding steady. Supportive care. Objective - Vital Signs/Intake and Output Vital Signs (last 24 hours): Temp Pulse Resp BP Pulse Ox 98.3 F 79 15 126/59 L 92 L 08/18/16 16:00 08/18/16 16:00 08/18/16 16:00 08/18/16 16:00 08/18/16 16:00 - Medications Medications: Current Medications Alprazolam (Xanax) 0.5 mg PO Q12H PRN; Protocol PRN Reason: Anxiety Last Admin: 08/17/16 11:11 Dose: 0.5 mg Amlodipine Besylate (Norvasc) 5 mg PO ONCE [facility]AI Last Admin: 08/18/16 12:51 Dose: 5 mg Amlodipine Besylate (Norvasc) 10 mg PO DAILY [facility] PRN Reason: Protocol Atorvastatin Calcium (Lipitor) 20 mg PO DIN [facility] PRN Reason: Protocol Last Admin: 08/18/16 17:23 Dose: 20 mg Cholecalciferol (Vitamin D) 1,000 iu PO DAILY [facility] PRN Reason: Protocol Last Admin: 08/18/16 10:11 Dose: 1,000 iu Digoxin (Lanoxin) 0.125 mg PO 1400 [facility] PRN Reason: Protocol Last Admin: 08/18/16 13:23 Dose: 0.125 mg Docusate Sodium (Colace) 100 mg PO BID [facility] PRN Reason: Protocol Last Admin: 08/18/16 17:21 Dose: 100 mg Donepezil HCl (Aricept) 5 mg PO HS [facility] PRN Reason: Protocol Last Admin: 08/17/16 21:41 Dose: 5 mg Hydralazine HCl (Apresoline) 25 mg PO QID PRN; Protocol PRN Reason: Systolic Blood Pressure Heparin Sodium/Sodium Chloride (Heparin 91389 Units/250ml 1/2 Normal Saline) 25 ,000 units in 250 mls @ 6.831 mls/hr IV .Q24H PRN; Protocol; 11.62 UNITS/KG/HR PRN Reason: ADJUST RATE PER PROTOCOL Linezolid (Zyvox 600mg/300ml D5w) 600 mg in 300 mls @ 200 mls/hr IVPB 0600, 1800 [facility] PRN Reason: Protocol Stop: 08/22/16 07:29 Last Admin: 08/18/16 12:56 Dose: 200 mls/hr Losartan Potassium (Cozaar) 100 mg PO DAILY [facility] PRN Reason: Protocol Last Admin: 08/18/16 10:10 Dose: 100 mg Meclizine HCl (Antivert) 12.5 mg PO BID PRN; Protocol PRN Reason: Dizziness Metoprolol Tartrate (Lopressor) 25 mg PO BID [facility] PRN Reason: Protocol Last Admin: 08/18/16 17:20 Dose: 25 mg Oxycodone/Acetaminophen (Percocet 5/325 Mg Tab) 1 tab PO Q6H PRN; Protocol PRN Reason: Pain, moderate (4-7) Last Admin: 08/18/16 17:21 Dose: 1 tab Pantoprazole Sodium (Protonix Ec Tab) 40 mg PO 0600 [facility] PRN Reason: Protocol Last Admin: 08/18/16 05:54 Dose: 40 mg Warfarin Sodium (Coumadin) 4 mg PO 1800 [facility] PRN Reason: Protocol Last Admin: 08/18/16 17:22 Dose: 4 mg - Labs Labs: 08/18/16 06:30 PT 11.5 Seconds (9.9-11.8) 08/18/16 06:30 INR 1.06 (0.93-1.08) 08/18/16 06:30 APTT 49.8 Seconds (23.7-30.8) H 08/18/16 06:30 - Constitutional Appears: Non-toxic, No Acute Distress, Chronically Ill - Head Exam Head Exam: ATRAUMATIC, NORMOCEPHALIC - Eye Exam Eye Exam: EOMI, PERRL Pupil Exam: NORMAL ACCOMODATION, PERRL - ENT Exam ENT Exam: Mucous Membranes Moist, Normal External Ear Exam, TM's Normal Bilaterally - Neck Exam Neck Exam: Full ROM, Normal Inspection - Respiratory Exam Respiratory Exam: Clear to Ausculation Bilateral, NORMAL BREATHING PATTERN. absent: Rales, Rhonchi, Wheezes - Cardiovascular Exam Cardiovascular Exam: REGULAR RHYTHM, RRR, +S1, +S2 - GI/Abdominal Exam GI & Abdominal Exam: Soft, Normal Bowel Sounds. absent: Distended, Tenderness - Extremities Exam Extremities Exam: Full ROM, Normal Inspection - Neurological Exam Neurological Exam: Alert, Awake, CN II-XII Intact, Oriented x3 - Psychiatric Exam Psychiatric exam: Normal Affect, Normal Mood - Skin Skin Exam: Intact, Normal Color Assessment and Plan - Assessment and Plan (Free Text) Assessment: 80 yo AA female with failing memory at home presenting with witnessed syncopal episode at home in front of friends. Brought to [facility] for further evaluation. Patient found to be anemic with loss of a few pounds compared to visit in the office a few weeks ago. Patient with known renal insufficiency following with Dr. Garduno/Gamaliel. Anemia and previous renal mass followed by Heme/Onc Dr. Sanchez. Syncope evaluation with Dr. Olivera of Neurology and Dr. Fonseca of Cardiology. GI evaluation with Dr. Gaytan as well. 2 units of PRBCs given for current anemia. Patient is significant dementia history that has worsened in the past 6-9 months. Patient known to miss doses of medication and sometimes takes medications twice. She lives alone but with some family nearby. Coloscopy done... discussed with Dr. Gaytan. Heparin started. Transferred to TCU. Hgb stable. Heparin continued. Coumadin restarted. Supportive care. Cleared by Neurology and Cardiology. Followed by Hematology and Nephrology. Gastroenterology following. Patient remains forgetful.
[2016-08-19] MEDS: Oxycodone/Acetaminophen 5/325 mg Tab PO PRN ×4 (04:07→21:53)
[2016-08-19] MEDS: Heparin25000 units/250ml 1/2NS 25,000 UNITS/250 ML BAG IV PRN (04:17)
[2016-08-19] MEDS: Pantoprazole 40 mg EC Tab PO SCH (05:50)
[2016-08-19] MEDS: Linezolid 600 mg in D5W 300 ml 600 MG/300 ML BAG IVPB SCH ×2 (05:50→17:26)
[2016-08-19 07:09] LABS: ADD MANUAL DIFF? NO
[2016-08-19 07:22] LABS: BASO # 0.03 K/mm3 (0.0-2.0); BASO % 0.5 % (0.0-3.0); EOS # 0.2 (0.0-0.7); EOS % 3.7 % (1.5-5.0); GRAN # 3.83 (1.4-6.5); GRAN % 65.2 % (50.0-68.0); HEMATOCRIT 28.8 % (36.0-48.0); LYMPH # 1.3 (1.2-3.4); LYMPH % 22.8 % (22.0-35.0); MEAN CELL VOLUME 77.6 fL (80.0-105.0); MEAN CORPUSCULAR HEMOGLOBIN 24.8 pg (25.0-35.0); MEAN CORPUSCULAR HGB CONC 31.9 g/dl (31.0-37.0); MEAN PLATELET VOLUME 9.6 fl (7.0-11.0); MONO # 0.5 (0.1-0.6); MONO % 7.8 % (1.0-6.0); PLATELET COUNT 212 10^3/uL (120.0-450.0); RED CELL DISTRIBUTION WIDTH 25.2 % (11.5-14.5); WHITE BLOOD COUNT 5.9 10^3/ul (4.5-11.0)
[2016-08-19 07:27] LABS: INR 1.06 (0.93-1.08); PARTIAL THROMBOPLASTIN TIME 44.2 Seconds (23.7-30.8)
--- NOTE | 2016-08-19 13:40 | PN ---
DATE: 08/19/2016 SUBJECTIVE: The patient is in the TCU. Her diarrhea has resolved. She is feeling well. PHYSICAL EXAMINATION: VITAL SIGNS: Blood pressure is 141/67, heart rate is in the 70s, atrial fibrillation. NECK: Negative JVD. LUNGS: Without rales. HEART: Revealed S1, S2. EXTREMITIES: Without edema. LABORATORY DATA: Hemoglobin is 9.2. Chemistries are unremarkable. IMPRESSION: 1. Resolution of diarrhea from Clostridium difficile after fecal transplant. 2. Atrial fibrillation. 3. Anemia. 4. Hypertension. PLAN: Given these findings, the patient is doing remarkably well. She is participating with physica [employer] therapy well. Oswald Fonseca MD cc: [id number] TT: 08/19/2016 13:39:59 Confirmation # [id number] Dictation # [id number] jodee
[2016-08-19] MEDS: Digoxin 125 mcg (0.125 mg) Tab PO SCH (14:08)
--- NOTE | 2016-08-19 14:25 | PN ---
DATE: 08/19/2016 Seen and examined at the bedside this morning. The patient denies any nausea, vomiting, abdominal pa in or any overt GI bleed. She is moving her bowels, formed stool. Does not notice any melena or linh ght red blood and tolerating oral intake. VITAL SIGNS: Temperature is 98.7, blood pressure 141/67, pulse 74, respirations 20, 95 on room air. LABORATORY DATA: WBC is 5.9, hemoglobin is 9.2, hematocrit 28.8, platelets are 212. PT is 11.4, INR is 1.06, PTT 44.2. The patient's hemoglobin has remained stable, steady. PHYSICAL EXAMINATION: HEENT: Sclerae are anicteric. NECK: Supple. CARDIAC: S1, S2. LUNGS: Sounds are clear. ABDOMEN: With bowel sounds, soft, nontender. EXTREMITIES: No edema. NEUROLOGIC: Awake, alert, and oriented. ASSESSMENT: This is an 80-year-old female who came with syncopal episode, found to have severe anemi a, status post blood transfusion. She had EGD, colonoscopy, found to have peptic ulcer disease and a rteriovenous malformation, status post BICAP. She also has atrial fibrillation and is back on Coumad in, history of renal mass with right nephrectomy. PLAN: Continue to follow H and H, which has remained stable. No signs of overt GI bleed. She is cu rrently on heparin drip and on Coumadin. Continue PPI. The patient is also on IV antibiotics, is on bowel regimen, stool softener. The patient, in view of peptic ulcers, would benefit from repeating endoscopy in 2 months' time to evaluate healing of ulcers. The patient was seen and discussed with Dr. Gaytan. Elyse BORRERO cc: [id number] TT: 08/19/2016 14:24:33 Confirmation # [id number] Dictation # [id number] jodee
--- NOTE | 2016-08-19 14:39 | CP.PCM.PN ---
Subjective - Date & Time of Evaluation Date of Evaluation: 08/19/16 Time of Evaluation: 11:15 - Subjective Subjective: Follow up Nephrology Consultation: Assessment: Acute kidney injury likely hemodynamic: resolved Chronic Kidney Disease Stage 3 with ? proteinuria possibly due to HTN, age related decline, and s/p Rt nephrectomy due to hx of RCC Anemia s/p PRBC, Hypertension uncontrolled Vit D insufficiency with secondary hyperparathyroidism Plan Hypertension control with meds as ordered. increased norvasc to 10 mg/day, on losartan 100 mg/day She is already on statin started on vit D supplement 1000 unit/day, iron 324 mg TID ordered spot protein/creatinine and albumin/creatinine ratio Dose meds/antibiotics for reduced GFR ~ 40. Avoid fleets enema/magnesium based laxatives. Avoid nephrotoxins/NSAIDs Further work up as per primary team Thanks for allowing me to participate in care of your patient. Will follow patient with you. Please call if any Qs Dr Jt Lemon Office: [phone] HPI: Pt is a 80 y/o F with hx of hypertension (20 years) , renal cell cancer s/ p unilateral total nephrectomy, CKD stage 3 with baseline cr 1.4-1.7 since 2017 , anemia, A fib came with anemia and dizziness ? syncope. found to have anemia and got PRBC transfusion renal consult for elevated creatinine eval and HTN control Subjective: noted events overnight Denies chest pain, palpitation, shortness of breath, leg swelling Denies blood or bubbles in urine denies NSAIDs. had colonoscopy wednesday Physical Examination: General Appearance: Comfortable, in no acute respiratory distress, co-operative Vitals reviewed and noted as below Lungs: Normal respiratory rate/effort. Breath sounds bilateral equal and clear Heart: Normal rate. s1s2 normal. No rub or gallop. Skin: Warm and dry. Normal turgor. No rash. Palpitation: Normal elasticity for age Abdomen: Abdomen is soft. Bowel sounds +. There is no abdominal tenderness, no guarding/rigidity or organomegaly. : kidney or bladder not palpable Labs/imaging reviewed. Past medical history, past surgical history, family history, social history, allergy reviewed work up: CT head and CXR unremarkable BNP 2050 UA: [address] 2017: s/p Rt nephrectomy, left kidney unremarkable TSAT 91% Ferritin 9 Vit D 21 PTH 229 Objective - Vital Signs/Intake and Output Vital Signs (last 24 hours): Temp Pulse Resp BP Pulse Ox 98.7 F 74 20 141/67 95 08/19/16 10:00 08/19/16 10:00 08/19/16 10:00 08/19/16 10:00 08/19/16 10:00 Intake and Output: 08/19/16 08/19/16 06:59 18:59 Intake Total 0 Balance 0 - Medications Medications: Current Medications Alprazolam (Xanax) 0.5 mg PO Q12H PRN; Protocol PRN Reason: Anxiety Last Admin: 08/19/16 01:39 Dose: 0.5 mg Amlodipine Besylate (Norvasc) 5 mg PO ONCE [facility] Last Admin: 08/19/16 12:51 Dose: 5 mg Amlodipine Besylate (Norvasc) 10 mg PO DAILY [facility] PRN Reason: Protocol Last Admin: 08/19/16 09:41 Dose: 10 mg Atorvastatin Calcium (Lipitor) 20 mg PO DIN [facility] PRN Reason: Protocol Last Admin: 08/18/16 17:23 Dose: 20 mg Cholecalciferol (Vitamin D) 1,000 iu PO DAILY [facility] PRN Reason: Protocol Last Admin: 08/19/16 09:37 Dose: 1,000 iu Digoxin (Lanoxin) 0.125 mg PO 1400 [facility] PRN Reason: Protocol Last Admin: 08/19/16 14:08 Dose: 0.125 mg Docusate Sodium (Colace) 100 mg PO BID [facility] PRN Reason: Protocol Last Admin: 08/19/16 09:37 Dose: 100 mg Donepezil HCl (Aricept) 5 mg PO HS [facility] PRN Reason: Protocol Last Admin: 08/18/16 23:05 Dose: 5 mg Hydralazine HCl (Apresoline) 25 mg PO QID PRN; Protocol PRN Reason: Systolic Blood Pressure Heparin Sodium/Sodium Chloride (Heparin 14155 Units/250ml 1/2 Normal Saline) 25 ,000 units in 250 mls @ 6.831 mls/hr IV .Q24H PRN; Protocol; 11.62 UNITS/KG/HR PRN Reason: ADJUST RATE PER PROTOCOL Last Titration: 08/19/16 07:56 Dose: 13.6 units/kg/hr, 8 mls/hr Linezolid (Zyvox 600mg/300ml D5w) 600 mg in 300 mls @ 200 mls/hr IVPB 0600, 1800 [facility] PRN Reason: Protocol Stop: 08/22/16 07:29 Last Admin: 08/19/16 05:50 Dose: 200 mls/hr Losartan Potassium (Cozaar) 100 mg PO DAILY [facility] PRN Reason: Protocol Last Admin: 08/19/16 09:36 Dose: 100 mg Meclizine HCl (Antivert) 12.5 mg PO BID PRN; Protocol PRN Reason: Dizziness Metoprolol Tartrate (Lopressor) 25 mg PO BID [facility] PRN Reason: Protocol Last Admin: 08/19/16 09:36 Dose: 25 mg Oxycodone/Acetaminophen (Percocet 5/325 Mg Tab) 1 tab PO Q6H PRN; Protocol PRN Reason: Pain, moderate (4-7) Last Admin: 08/19/16 09:46 Dose: 1 tab Pantoprazole Sodium (Protonix Ec Tab) 40 mg PO 0600 [facility] PRN Reason: Protocol Last Admin: 08/19/16 05:50 Dose: 40 mg Warfarin Sodium (Coumadin) 4 mg PO 1800 [facility] PRN Reason: Protocol Last Admin: 08/18/16 17:22 Dose: 4 mg - Labs Labs: 08/19/16 05:30 PT 11.4 Seconds (9.9-11.8) 08/19/16 05:30 INR 1.06 (0.93-1.08) 08/19/16 05:30 APTT 44.2 Seconds (23.7-30.8) H 08/19/16 05:30
--- NOTE | 2016-08-19 15:53 | CP.PCM.PN ---
Subjective - Date & Time of Evaluation Date of Evaluation: 08/19/16 Time of Evaluation: 14:00 - Subjective Subjective: Internal Medicine/Infectious Disease Follow Up: August 19, 2016 80 yo AA female with syncopal episode at home witnessed in front of friends. The patient found to be anemic in hospital. Unclear if the patient is taking her medications at home. The patient has worsening signs of dementia. It is known that she refuses her memory medications at home. She live alone but had family nearby. Transfused two units of PRBCs yesterday. For cardiac workup. GI evaluation pending. Guiaic pending. Chronic Kidney Disease stage III. Cleared by Neurology and Cardiology. Followed by Hematology and Gastroenterology. In recovery s/p colonoscopy. Discussed with Dr. Gaytan. Discussed renal issues with Dr. Lemon especially difficult to control blood pressure. The patient with decrease in Hgb. Started heparin. In TCU. Heparin restarted and adjusting levels... watch for bleeding. Checking CBC values. Increasing Coumadin doses. Hgb is holding steady. Supportive care. VRE in urine cultures. Zyvox started for therapy yesterday. Objective - Vital Signs/Intake and Output Vital Signs (last 24 hours): Temp Pulse Resp BP Pulse Ox 98.7 F 74 20 141/67 95 08/19/16 10:00 08/19/16 10:00 08/19/16 10:00 08/19/16 10:00 08/19/16 10:00 Intake and Output: 08/19/16 08/19/16 06:59 18:59 Intake Total 0 Balance 0 - Medications Medications: Current Medications Alprazolam (Xanax) 0.5 mg PO Q12H PRN; Protocol PRN Reason: Anxiety Last Admin: 08/19/16 01:39 Dose: 0.5 mg Amlodipine Besylate (Norvasc) 5 mg PO ONCE [facility] Last Admin: 08/19/16 12:51 Dose: 5 mg Amlodipine Besylate (Norvasc) 10 mg PO DAILY [facility] PRN Reason: Protocol Last Admin: 08/19/16 09:41 Dose: 10 mg Atorvastatin Calcium (Lipitor) 20 mg PO DIN [facility] PRN Reason: Protocol Last Admin: 08/18/16 17:23 Dose: 20 mg Cholecalciferol (Vitamin D) 1,000 iu PO DAILY [facility] PRN Reason: Protocol Last Admin: 08/19/16 09:37 Dose: 1,000 iu Digoxin (Lanoxin) 0.125 mg PO 1400 [facility] PRN Reason: Protocol Last Admin: 08/19/16 14:08 Dose: 0.125 mg Docusate Sodium (Colace) 100 mg PO BID [facility] PRN Reason: Protocol Last Admin: 08/19/16 09:37 Dose: 100 mg Donepezil HCl (Aricept) 5 mg PO HS [facility] PRN Reason: Protocol Last Admin: 08/18/16 23:05 Dose: 5 mg Ferrous Gluconate (Fergon) 324 mg PO TID [facility] Hydralazine HCl (Apresoline) 25 mg PO QID PRN; Protocol PRN Reason: Systolic Blood Pressure Heparin Sodium/Sodium Chloride (Heparin 72812 Units/250ml 1/2 Normal Saline) 25 ,000 units in 250 mls @ 6.831 mls/hr IV .Q24H PRN; Protocol; 11.62 UNITS/KG/HR PRN Reason: ADJUST RATE PER PROTOCOL Last Titration: 08/19/16 07:56 Dose: 13.6 units/kg/hr, 8 mls/hr Linezolid (Zyvox 600mg/300ml D5w) 600 mg in 300 mls @ 200 mls/hr IVPB 0600, 1800 [facility] PRN Reason: Protocol Stop: 08/22/16 07:29 Last Admin: 08/19/16 05:50 Dose: 200 mls/hr Losartan Potassium (Cozaar) 100 mg PO DAILY [facility] PRN Reason: Protocol Last Admin: 08/19/16 09:36 Dose: 100 mg Meclizine HCl (Antivert) 12.5 mg PO BID PRN; Protocol PRN Reason: Dizziness Metoprolol Tartrate (Lopressor) 25 mg PO BID [facility] PRN Reason: Protocol Last Admin: 08/19/16 09:36 Dose: 25 mg Oxycodone/Acetaminophen (Percocet 5/325 Mg Tab) 1 tab PO Q6H PRN; Protocol PRN Reason: Pain, moderate (4-7) Last Admin: 08/19/16 09:46 Dose: 1 tab Pantoprazole Sodium (Protonix Ec Tab) 40 mg PO 0600 [facility] PRN Reason: Protocol Last Admin: 08/19/16 05:50 Dose: 40 mg Warfarin Sodium (Coumadin) 7.5 mg PO 1600 [facility] PRN Reason: Protocol - Labs Labs: 08/19/16 05:30 PT 11.4 Seconds (9.9-11.8) 08/19/16 05:30 INR 1.06 (0.93-1.08) 08/19/16 05:30 APTT 80.1 Seconds (23.7-30.8) H* 08/19/16 14:00 - Constitutional Appears: Non-toxic, No Acute Distress, Chronically Ill - Head Exam Head Exam: ATRAUMATIC, NORMOCEPHALIC - Eye Exam Eye Exam: EOMI, PERRL Pupil Exam: NORMAL ACCOMODATION, PERRL - ENT Exam ENT Exam: Mucous Membranes Moist, Normal External Ear Exam, TM's Normal Bilaterally - Neck Exam Neck Exam: Full ROM, Normal Inspection - Respiratory Exam Respiratory Exam: Clear to Ausculation Bilateral, NORMAL BREATHING PATTERN. absent: Rales, Rhonchi, Wheezes - Cardiovascular Exam Cardiovascular Exam: REGULAR RHYTHM, RRR, +S1, +S2 - GI/Abdominal Exam GI & Abdominal Exam: Soft, Normal Bowel Sounds. absent: Distended, Tenderness - Extremities Exam Extremities Exam: Full ROM, Normal Inspection - Back Exam Back Exam: Full ROM, NORMAL INSPECTION - Neurological Exam Neurological Exam: Alert, Awake, CN II-XII Intact, Oriented x3 Additional comments: can be forgetful. - Psychiatric Exam Psychiatric exam: Normal Affect, Normal Mood - Skin Skin Exam: Intact, Normal Color Assessment and Plan - Assessment and Plan (Free Text) Assessment: 80 yo AA female with failing memory at home presenting with witnessed syncopal episode at home in front of friends. Brought to [facility] for further evaluation. Patient found to be anemic with loss of a few pounds compared to visit in the office a few weeks ago. Patient with known renal insufficiency following with Dr. Garduno/Gamaliel. Anemia and previous renal mass followed by Heme/Onc Dr. Sanchez. Syncope evaluation with Dr. Olivera of Neurology and Dr. Fonseca of Cardiology. GI evaluation with Dr. Gaytan as well. 2 units of PRBCs given for current anemia. Patient is significant dementia history that has worsened in the past 6-9 months. Patient known to miss doses of medication and sometimes takes medications twice. She lives alone but with some family nearby. Coloscopy done... discussed with Dr. Lukas. Heparin started. Transferred to TCU. Hgb stable. Heparin continued. Coumadin restarted. Increased coumadin dosing. VRE found in the urine. Zyvox started for treatment yesterday. Supportive care. Cleared by Neurology and Cardiology. Followed by Hematology and Nephrology. Gastroenterology following. Patient remains forgetful.
[2016-08-20] MEDS: Linezolid 600 mg in D5W 300 ml 600 MG/300 ML BAG IVPB SCH ×2 (05:07→17:26)
[2016-08-20] MEDS: Pantoprazole 40 mg EC Tab PO SCH (05:08)
[2016-08-20] MEDS: Oxycodone/Acetaminophen 5/325 mg Tab PO PRN ×3 (05:23→21:29)
[2016-08-20] MEDS: Heparin25000 units/250ml 1/2NS 25,000 UNITS/250 ML BAG IV PRN (06:37)
[2016-08-20 07:25] LABS: INR 1.18 (0.93-1.08); PARTIAL THROMBOPLASTIN TIME 67.4 Seconds (23.7-30.8)
[2016-08-20] MEDS: Digoxin 125 mcg (0.125 mg) Tab PO SCH (13:58)
--- NOTE | 2016-08-20 14:19 | CP.PCM.PN ---
Subjective - Date & Time of Evaluation Date of Evaluation: 08/20/16 Time of Evaluation: 10:00 - Subjective Subjective: Follow up Nephrology Consultation: Assessment: Acute kidney injury likely hemodynamic: resolved Chronic Kidney Disease Stage 3 with ? proteinuria possibly due to HTN, age related decline, and s/p Rt nephrectomy due to hx of RCC Anemia s/p PRBC, Hypertension uncontrolled Vit D insufficiency with secondary hyperparathyroidism Plan Hypertension control with meds as ordered. increased norvasc to 10 mg/day, on losartan 100 mg/day and lopressor 25 bid, prn hydralazine. She is already on statin started on vit D supplement 1000 unit/day, iron 324 mg TID Re-ordered spot protein/creatinine and albumin/creatinine ratio Dose meds/antibiotics for reduced GFR ~ 40. Avoid fleets enema/magnesium based laxatives. Avoid nephrotoxins/NSAIDs Further work up as per primary team Thanks for allowing me to participate in care of your patient. Will follow patient with you. Please call if any Qs Dr Jt Lemon Office: [phone] HPI: Pt is a 80 y/o F with hx of hypertension (20 years) , renal cell cancer s/ p unilateral total nephrectomy, CKD stage 3 with baseline cr 1.4-1.7 since 2017 , anemia, A fib came with anemia and dizziness ? syncope. found to have anemia and got PRBC transfusion renal consult for elevated creatinine eval and HTN control Subjective: noted events overnight Denies chest pain, palpitation, shortness of breath, leg swelling Denies blood or bubbles in urine denies NSAIDs. had colonoscopy wednesday Physical Examination: General Appearance: Comfortable, in no acute respiratory distress, co-operative Vitals reviewed and noted as below Lungs: Normal respiratory rate/effort. Breath sounds bilateral equal and few basal crackles Heart: Normal rate. s1s2 normal. No rub or gallop. Skin: Warm and dry. Normal turgor. No rash. Palpitation: Normal elasticity for age Abdomen: Abdomen is soft. Bowel sounds +. There is no abdominal tenderness, no guarding/rigidity or organomegaly. : kidney or bladder not palpable Labs/imaging reviewed. Past medical history, past surgical history, family history, social history, allergy reviewed work up: CT head and CXR unremarkable BNP 0 UA: [address] 2017: s/p Rt nephrectomy, left kidney unremarkable TSAT 91% Ferritin 9 Vit D 21 PTH 229 Objective - Vital Signs/Intake and Output Vital Signs (last 24 hours): Temp Pulse Resp BP Pulse Ox 97.8 F 84 14 138/81 97 08/19/16 16:00 08/20/16 10:36 08/19/16 16:00 08/20/16 10:36 08/19/16 16:00 Intake and Output: 08/20/16 08/20/16 06:59 18:59 Intake Total 250 Balance 250 - Medications Medications: Current Medications Alprazolam (Xanax) 0.5 mg PO Q12H PRN; Protocol PRN Reason: Anxiety Last Admin: 08/20/16 05:07 Dose: 0.5 mg Amlodipine Besylate (Norvasc) 10 mg PO DAILY [facility] PRN Reason: Protocol Last Admin: 08/20/16 10:36 Dose: 10 mg Atorvastatin Calcium (Lipitor) 20 mg PO DIN [facility] PRN Reason: Protocol Last Admin: 08/19/16 17:25 Dose: 20 mg Cholecalciferol (Vitamin D) 1,000 iu PO DAILY [facility] PRN Reason: Protocol Last Admin: 08/20/16 10:37 Dose: 1,000 iu Digoxin (Lanoxin) 0.125 mg PO 1400 [facility] PRN Reason: Protocol Last Admin: 08/20/16 13:58 Dose: 0.125 mg Docusate Sodium (Colace) 100 mg PO BID [facility] PRN Reason: Protocol Last Admin: 08/20/16 10:35 Dose: 100 mg Donepezil HCl (Aricept) 5 mg PO HS [facility] PRN Reason: Protocol Last Admin: 08/19/16 21:42 Dose: 5 mg Ferrous Gluconate (Fergon) 324 mg PO TID [facility] Last Admin: 08/20/16 13:58 Dose: 324 mg Hydralazine HCl (Apresoline) 25 mg PO QID PRN; Protocol PRN Reason: Systolic Blood Pressure Heparin Sodium/Sodium Chloride (Heparin 31291 Units/250ml 1/2 Normal Saline) 25 ,000 units in 250 mls @ 6.831 mls/hr IV .Q24H PRN; Protocol; 11.62 UNITS/KG/HR PRN Reason: ADJUST RATE PER PROTOCOL Last Admin: 08/20/16 06:37 Dose: 13.6 units/kg/hr, 7.995 mls/hr Linezolid (Zyvox 600mg/300ml D5w) 600 mg in 300 mls @ 200 mls/hr IVPB 0600, 1800 [facility] PRN Reason: Protocol Stop: 08/22/16 07:29 Last Admin: 08/20/16 05:07 Dose: 200 mls/hr Losartan Potassium (Cozaar) 100 mg PO DAILY [facility] PRN Reason: Protocol Last Admin: 08/20/16 10:35 Dose: 100 mg Meclizine HCl (Antivert) 12.5 mg PO BID PRN; Protocol PRN Reason: Dizziness Metoprolol Tartrate (Lopressor) 25 mg PO BID [facility] PRN Reason: Protocol Last Admin: 08/20/16 10:36 Dose: 25 mg Oxycodone/Acetaminophen (Percocet 5/325 Mg Tab) 1 tab PO Q6H PRN; Protocol PRN Reason: Pain, moderate (4-7) Last Admin: 08/20/16 05:23 Dose: 1 tab Pantoprazole Sodium (Protonix Ec Tab) 40 mg PO 0600 [facility] PRN Reason: Protocol Last Admin: 08/20/16 05:08 Dose: 40 mg Warfarin Sodium (Coumadin) 7.5 mg PO 1600 [facility] PRN Reason: Protocol Last Admin: 08/19/16 17:25 Dose: 7.5 mg - Labs Labs: 08/19/16 05:30 PT 12.7 Seconds (9.9-11.8) H 08/20/16 06:10 INR 1.18 (0.93-1.08) H 08/20/16 06:10 APTT 67.4 Seconds (23.7-30.8) H 08/20/16 06:10
--- NOTE | 2016-08-20 18:47 | CP.PCM.PN ---
Subjective - Date & Time of Evaluation Date of Evaluation: 08/20/16 Time of Evaluation: 16:45 - Subjective Subjective: Internal Medicine/Infectious Disease Follow Up: August 19, 2016 80 yo AA female with syncopal episode at home witnessed in front of friends. The patient found to be anemic in hospital. Unclear if the patient is taking her medications at home. The patient has worsening signs of dementia. It is known that she refuses her memory medications at home. She live alone but had family nearby. Transfused two units of PRBCs yesterday. For cardiac workup. GI evaluation pending. Guiaic pending. Chronic Kidney Disease stage III. Cleared by Neurology and Cardiology. Followed by Hematology and Gastroenterology. In recovery s/p colonoscopy. Discussed with Dr. Gaytan. Discussed renal issues with Dr. Lemon especially difficult to control blood pressure. The patient with decrease in Hgb. Started heparin. In TCU. Heparin restarted and adjusting levels... watch for bleeding. Checking CBC values. Increasing Coumadin doses. Hgb is holding steady. Supportive care. VRE in urine cultures. Zyvox day 3. Still trying to increase Coumadin to therapeutic levels. Current meds: Active Medications Alprazolam (Xanax) 0.5 mg PO Q12H PRN; Protocol PRN Reason: Anxiety Last Admin: 08/20/16 05:07 Dose: 0.5 mg Amlodipine Besylate (Norvasc) 10 mg PO DAILY [facility] PRN Reason: Protocol Last Admin: 08/20/16 10:36 Dose: 10 mg Atorvastatin Calcium (Lipitor) 20 mg PO DIN [facility] PRN Reason: Protocol Last Admin: 08/20/16 17:23 Dose: 20 mg Cholecalciferol (Vitamin D) 1,000 iu PO DAILY [facility] PRN Reason: Protocol Last Admin: 08/20/16 10:37 Dose: 1,000 iu Digoxin (Lanoxin) 0.125 mg PO 1400 [facility] PRN Reason: Protocol Last Admin: 08/20/16 13:58 Dose: 0.125 mg Docusate Sodium (Colace) 100 mg PO BID [facility] PRN Reason: Protocol Last Admin: 08/20/16 17:23 Dose: 100 mg Donepezil HCl (Aricept) 5 mg PO HS [facility] PRN Reason: Protocol Last Admin: 08/19/16 21:42 Dose: 5 mg Ferrous Gluconate (Fergon) 324 mg PO TID [facility] Last Admin: 08/20/16 17:23 Dose: 324 mg Hydralazine HCl (Apresoline) 25 mg PO QID PRN; Protocol PRN Reason: Systolic Blood Pressure Heparin Sodium/Sodium Chloride (Heparin 88378 Units/250ml 1/2 Normal Saline) 25 ,000 units in 250 mls @ 6.831 mls/hr IV .Q24H PRN; Protocol; 11.62 UNITS/KG/HR PRN Reason: ADJUST RATE PER PROTOCOL Last Admin: 08/20/16 06:37 Dose: 13.6 units/kg/hr, 7.995 mls/hr Linezolid (Zyvox 600mg/300ml D5w) 600 mg in 300 mls @ 200 mls/hr IVPB 0600, 1800 [facility] PRN Reason: Protocol Stop: 08/22/16 07:29 Last Admin: 08/20/16 17:26 Dose: 200 mls/hr Losartan Potassium (Cozaar) 100 mg PO DAILY [facility] PRN Reason: Protocol Last Admin: 08/20/16 10:35 Dose: 100 mg Meclizine HCl (Antivert) 12.5 mg PO BID PRN; Protocol PRN Reason: Dizziness Metoprolol Tartrate (Lopressor) 25 mg PO BID [facility] PRN Reason: Protocol Last Admin: 08/20/16 17:23 Dose: 25 mg Oxycodone/Acetaminophen (Percocet 5/325 Mg Tab) 1 tab PO Q6H PRN; Protocol PRN Reason: Pain, moderate (4-7) Last Admin: 08/20/16 15:54 Dose: 1 tab Pantoprazole Sodium (Protonix Ec Tab) 40 mg PO 0600 [facility] PRN Reason: Protocol Last Admin: 08/20/16 05:08 Dose: 40 mg Warfarin Sodium (Coumadin) 7.5 mg PO 1600 [facility] PRN Reason: Protocol Last Admin: 08/20/16 17:22 Dose: 7.5 mg Objective - Vital Signs/Intake and Output Vital Signs (last 24 hours): Temp Pulse Resp BP Pulse Ox 98.7 F 73 18 127/75 96 08/20/16 16:00 08/20/16 17:23 08/20/16 16:00 08/20/16 17:23 08/20/16 16:00 Intake and Output: 08/20/16 08/20/16 06:59 18:59 Intake Total 250 Balance 250 - Medications Medications: Current Medications Alprazolam (Xanax) 0.5 mg PO Q12H PRN; Protocol PRN Reason: Anxiety Last Admin: 08/20/16 05:07 Dose: 0.5 mg Amlodipine Besylate (Norvasc) 10 mg PO DAILY [facility] PRN Reason: Protocol Last Admin: 08/20/16 10:36 Dose: 10 mg Atorvastatin Calcium (Lipitor) 20 mg PO DIN [facility] PRN Reason: Protocol Last Admin: 08/20/16 17:23 Dose: 20 mg Cholecalciferol (Vitamin D) 1,000 iu PO DAILY [facility] PRN Reason: Protocol Last Admin: 08/20/16 10:37 Dose: 1,000 iu Digoxin (Lanoxin) 0.125 mg PO 1400 [facility] PRN Reason: Protocol Last Admin: 08/20/16 13:58 Dose: 0.125 mg Docusate Sodium (Colace) 100 mg PO BID [facility] PRN Reason: Protocol Last Admin: 08/20/16 17:23 Dose: 100 mg Donepezil HCl (Aricept) 5 mg PO HS [facility] PRN Reason: Protocol Last Admin: 08/19/16 21:42 Dose: 5 mg Ferrous Gluconate (Fergon) 324 mg PO TID [facility] Last Admin: 08/20/16 17:23 Dose: 324 mg Hydralazine HCl (Apresoline) 25 mg PO QID PRN; Protocol PRN Reason: Systolic Blood Pressure Heparin Sodium/Sodium Chloride (Heparin 01285 Units/250ml 1/2 Normal Saline) 25 ,000 units in 250 mls @ 6.831 mls/hr IV .Q24H PRN; Protocol; 11.62 UNITS/KG/HR PRN Reason: ADJUST RATE PER PROTOCOL Last Admin: 08/20/16 06:37 Dose: 13.6 units/kg/hr, 7.995 mls/hr Linezolid (Zyvox 600mg/300ml D5w) 600 mg in 300 mls @ 200 mls/hr IVPB 0600, 1800 [facility] PRN Reason: Protocol Stop: 08/22/16 07:29 Last Admin: 08/20/16 17:26 Dose: 200 mls/hr Losartan Potassium (Cozaar) 100 mg PO DAILY [facility] PRN Reason: Protocol Last Admin: 08/20/16 10:35 Dose: 100 mg Meclizine HCl (Antivert) 12.5 mg PO BID PRN; Protocol PRN Reason: Dizziness Metoprolol Tartrate (Lopressor) 25 mg PO BID [facility] PRN Reason: Protocol Last Admin: 08/20/16 17:23 Dose: 25 mg Oxycodone/Acetaminophen (Percocet 5/325 Mg Tab) 1 tab PO Q6H PRN; Protocol PRN Reason: Pain, moderate (4-7) Last Admin: 08/20/16 15:54 Dose: 1 tab Pantoprazole Sodium (Protonix Ec Tab) 40 mg PO 0600 [facility] PRN Reason: Protocol Last Admin: 08/20/16 05:08 Dose: 40 mg Warfarin Sodium (Coumadin) 7.5 mg PO 1600 [facility] PRN Reason: Protocol Last Admin: 08/20/16 17:22 Dose: 7.5 mg - Labs Labs: 08/19/16 05:30 PT 12.7 Seconds (9.9-11.8) H 08/20/16 06:10 INR 1.18 (0.93-1.08) H 08/20/16 06:10 APTT 67.4 Seconds (23.7-30.8) H 08/20/16 06:10 - Constitutional Appears: Non-toxic, No Acute Distress, Chronically Ill - Head Exam Head Exam: ATRAUMATIC, NORMOCEPHALIC - Eye Exam Eye Exam: EOMI, PERRL Pupil Exam: NORMAL ACCOMODATION, PERRL - ENT Exam ENT Exam: Mucous Membranes Moist, Normal External Ear Exam, TM's Normal Bilaterally - Neck Exam Neck Exam: Full ROM, Normal Inspection. absent: Lymphadenopathy - Respiratory Exam Respiratory Exam: Clear to Ausculation Bilateral, NORMAL BREATHING PATTERN. absent: Rales, Rhonchi, Wheezes - Cardiovascular Exam Cardiovascular Exam: REGULAR RHYTHM, RRR, +S1, +S2 - GI/Abdominal Exam GI & Abdominal Exam: Soft, Normal Bowel Sounds. absent: Distended, Tenderness - Extremities Exam Extremities Exam: Full ROM, Normal Inspection - Neurological Exam Neurological Exam: Alert, Awake, CN II-XII Intact, Oriented x3 Additional comments: Can be forgetful - Psychiatric Exam Psychiatric exam: Normal Affect, Normal Mood - Skin Skin Exam: Intact, Normal Color Assessment and Plan - Assessment and Plan (Free Text) Assessment: 80 yo AA female with failing memory at home presenting with witnessed syncopal episode at home in front of friends. Brought to [facility] [place] for further evaluation. Patient found to be anemic with loss of a few pounds compared to visit in the office a few weeks ago. Patient with known renal insufficiency following with Dr. Garduno/Gamaliel. Anemia and previous renal mass followed by Heme/Onc Dr. Sanchez. Syncope evaluation with Dr. Olivera of Neurology and Dr. Fonseca of Cardiology. GI evaluation with Dr. Gaytan as well. 2 units of PRBCs given for current anemia. Patient is significant dementia history that has worsened in the past 6-9 months. Patient known to miss doses of medication and sometimes takes medications twice. She lives alone but with some family nearby. Coloscopy done... discussed with Dr. Gaytan. Heparin started. Transferred to TCU. Hgb stable. Heparin continued. Coumadin restarted. Increased coumadin dosing as INR has been very slow to reach therapeutic levels. Supportive care. VRE found in the urine. Zyvox started for treatment now on day 3. Supportive care. Cleared by Neurology and Cardiology. Followed by Hematology and Nephrology. Gastroenterology following. Patient remains forgetful.
[2016-08-21] MEDS: Linezolid 600 mg in D5W 300 ml 600 MG/300 ML BAG IVPB SCH (05:10)
[2016-08-21] MEDS: Pantoprazole 40 mg EC Tab PO SCH (05:10)
[2016-08-21] MEDS: Oxycodone/Acetaminophen 5/325 mg Tab PO PRN ×3 (05:14→21:22)
[2016-08-21 07:11] LABS: ADD MANUAL DIFF? NO; BASO # 0.03 K/mm3 (0.0-2.0); BASO % 0.5 % (0.0-3.0); EOS # 0.2 (0.0-0.7); EOS % 3.1 % (1.5-5.0); GRAN # 4.05 (1.4-6.5); GRAN % 73.1 % (50.0-68.0); HEMATOCRIT 29.2 % (36.0-48.0); LYMPH # 0.9 (1.2-3.4); LYMPH % 16.6 % (22.0-35.0); MEAN CELL VOLUME 79.3 fL (80.0-105.0); MEAN CORPUSCULAR HEMOGLOBIN 24.5 pg (25.0-35.0); MEAN CORPUSCULAR HGB CONC 30.8 g/dl (31.0-37.0); MEAN PLATELET VOLUME 9.5 fl (7.0-11.0); MONO # 0.4 (0.1-0.6); MONO % 6.7 % (1.0-6.0); PLATELET COUNT 277 10^3/uL (120.0-450.0); RED CELL DISTRIBUTION WIDTH 26.7 % (11.5-14.5); WHITE BLOOD COUNT 5.5 10^3/ul (4.5-11.0)
[2016-08-21 07:21] LABS: INR 1.97 (0.93-1.08); PARTIAL THROMBOPLASTIN TIME 69.2 Seconds (23.7-30.8)
--- NOTE | 2016-08-21 09:45 | CP.PCM.PN ---
Subjective - Date & Time of Evaluation Date of Evaluation: 08/20/16 Time of Evaluation: 20:00 - Subjective Subjective: No complaints. Objective - Vital Signs/Intake and Output Vital Signs (last 24 hours): Temp Pulse Resp BP Pulse Ox 98.7 F 72 18 133/65 96 08/20/16 16:00 08/21/16 08:01 08/20/16 16:00 08/21/16 08:01 08/20/16 16:00 - Medications Medications: Current Medications Alprazolam (Xanax) 0.5 mg PO Q12H PRN; Protocol PRN Reason: Anxiety Last Admin: 08/20/16 18:41 Dose: 0.5 mg Amlodipine Besylate (Norvasc) 10 mg PO DAILY [facility] PRN Reason: Protocol Last Admin: 08/20/16 10:36 Dose: 10 mg Atorvastatin Calcium (Lipitor) 20 mg PO DIN [facility] PRN Reason: Protocol Last Admin: 08/20/16 17:23 Dose: 20 mg Cholecalciferol (Vitamin D) 1,000 iu PO DAILY [facility] PRN Reason: Protocol Last Admin: 08/20/16 10:37 Dose: 1,000 iu Digoxin (Lanoxin) 0.125 mg PO 1400 [facility] PRN Reason: Protocol Last Admin: 08/20/16 13:58 Dose: 0.125 mg Docusate Sodium (Colace) 100 mg PO BID [facility] PRN Reason: Protocol Last Admin: 08/20/16 17:23 Dose: 100 mg Donepezil HCl (Aricept) 5 mg PO HS [facility] PRN Reason: Protocol Last Admin: 08/20/16 21:23 Dose: 5 mg Ferrous Gluconate (Fergon) 324 mg PO TID [facility] Last Admin: 08/20/16 17:23 Dose: 324 mg Hydralazine HCl (Apresoline) 25 mg PO QID PRN; Protocol PRN Reason: Systolic Blood Pressure Heparin Sodium/Sodium Chloride (Heparin 29938 Units/250ml 1/2 Normal Saline) 25 ,000 units in 250 mls @ 6.831 mls/hr IV .Q24H PRN; Protocol; 11.62 UNITS/KG/HR PRN Reason: ADJUST RATE PER PROTOCOL Last Admin: 08/20/16 06:37 Dose: 13.6 units/kg/hr, 7.995 mls/hr Linezolid (Zyvox 600mg/300ml D5w) 600 mg in 300 mls @ 200 mls/hr IVPB 0600, 1800 [facility] PRN Reason: Protocol Stop: 08/22/16 07:29 Last Admin: 08/21/16 05:10 Dose: 200 mls/hr Losartan Potassium (Cozaar) 100 mg PO DAILY [facility] PRN Reason: Protocol Last Admin: 08/20/16 10:35 Dose: 100 mg Meclizine HCl (Antivert) 12.5 mg PO BID PRN; Protocol PRN Reason: Dizziness Metoprolol Tartrate (Lopressor) 25 mg PO BID [facility] PRN Reason: Protocol Last Admin: 08/21/16 08:01 Dose: 25 mg Oxycodone/Acetaminophen (Percocet 5/325 Mg Tab) 1 tab PO Q6H PRN; Protocol PRN Reason: Pain, moderate (4-7) Last Admin: 08/21/16 05:14 Dose: 1 tab Pantoprazole Sodium (Protonix Ec Tab) 40 mg PO 0600 [facility] PRN Reason: Protocol Last Admin: 08/21/16 05:10 Dose: 40 mg Warfarin Sodium (Coumadin) 7.5 mg PO 1600 [facility] PRN Reason: Protocol Last Admin: 08/20/16 17:22 Dose: 7.5 mg - Labs Labs: 08/21/16 05:00 PT 21.3 Seconds (9.9-11.8) H 08/21/16 07:00 INR 1.97 (0.93-1.08) H 08/21/16 07:00 APTT 69.2 Seconds (23.7-30.8) H 08/21/16 07:00 - Head Exam Head Exam: ATRAUMATIC - Eye Exam Eye Exam: Normal appearance - ENT Exam ENT Exam: Mucous Membranes Dry - Respiratory Exam Respiratory Exam: NORMAL BREATHING PATTERN - Cardiovascular Exam Cardiovascular Exam: +S1, +S2 - GI/Abdominal Exam GI & Abdominal Exam: Normal Bowel Sounds - Extremities Exam Extremities Exam: Normal Inspection Assessment and Plan (1) Anemia Assessment & Plan: iron deficiency 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
--- NOTE | 2016-08-21 11:39 | CP.PCM.PN ---
Subjective - Date & Time of Evaluation Date of Evaluation: 08/21/16 Time of Evaluation: 11:37 - Subjective Subjective: Follow up Nephrology Consultation: Assessment: Acute kidney injury likely hemodynamic: resolved Chronic Kidney Disease Stage 3 (N18.3) with ? proteinuria possibly due to HTN, age related decline, and s/p Rt nephrectomy due to hx of RCC Anemia s/p PRBC, Hypertension controlled (I12.9) Vit D insufficiency with secondary hyperparathyroidism Plan Hypertension control with meds as ordered. norvasc 10 mg/day, on losartan 100 mg /day and lopressor 25 bid, prn hydralazine. She is already on statin started on vit D supplement 1000 unit/day, iron 324 mg TID Re-ordered spot protein/creatinine and albumin/creatinine ratio Dose meds/antibiotics for reduced GFR ~ 40. Avoid fleets enema/magnesium based laxatives. Avoid nephrotoxins/NSAIDs Further work up as per primary team Thanks for allowing me to participate in care of your patient. Will follow patient with you. Please call if any Qs Dr Jt Lemon Office: [phone] HPI: Pt is a 80 y/o F with hx of hypertension (20 years) , renal cell cancer s/ p unilateral total nephrectomy, CKD stage 3 with baseline cr 1.4-1.7 since 2017 , anemia, A fib came with anemia and dizziness ? syncope. found to have anemia and got PRBC transfusion renal consult for elevated creatinine eval and HTN control Subjective: noted events overnight Denies chest pain, palpitation, shortness of breath, leg swelling Denies blood or bubbles in urine denies NSAIDs. had colonoscopy Physical Examination: General Appearance: Comfortable, in no acute respiratory distress, co-operative Vitals reviewed and noted as below Lungs: Normal respiratory rate/effort. Breath sounds bilateral equal and few basal crackles Heart: Normal rate. s1s2 normal. No rub or gallop. Skin: Warm and dry. Normal turgor. No rash. Palpitation: Normal elasticity for age Abdomen: Abdomen is soft. Bowel sounds +. There is no abdominal tenderness, no guarding/rigidity or organomegaly. : kidney or bladder not palpable Labs/imaging reviewed. Past medical history, past surgical history, family history, social history, allergy reviewed work up: CT head and CXR unremarkable BNP 2049 UA: [address] 2017: s/p Rt nephrectomy, left kidney unremarkable TSAT 91% Ferritin 9 Vit D 21 PTH 229 Objective - Vital Signs/Intake and Output Vital Signs (last 24 hours): Temp Pulse Resp BP Pulse Ox 98.7 F 70 18 128/68 94 L 08/21/16 10:00 08/21/16 10:00 08/21/16 10:00 08/21/16 10:09 08/21/16 10:00 - Medications Medications: Current Medications Alprazolam (Xanax) 0.5 mg PO Q12H PRN; Protocol PRN Reason: Anxiety Last Admin: 08/21/16 10:09 Dose: 0.5 mg Amlodipine Besylate (Norvasc) 10 mg PO DAILY [facility] PRN Reason: Protocol Last Admin: 08/21/16 10:09 Dose: 10 mg Atorvastatin Calcium (Lipitor) 20 mg PO DIN [facility] PRN Reason: Protocol Last Admin: 08/20/16 17:23 Dose: 20 mg Cholecalciferol (Vitamin D) 1,000 iu PO DAILY [facility] PRN Reason: Protocol Last Admin: 08/21/16 10:09 Dose: 1,000 iu Digoxin (Lanoxin) 0.125 mg PO 1400 [facility] PRN Reason: Protocol Last Admin: 08/20/16 13:58 Dose: 0.125 mg Docusate Sodium (Colace) 100 mg PO BID [facility] PRN Reason: Protocol Last Admin: 08/21/16 10:08 Dose: 100 mg Donepezil HCl (Aricept) 5 mg PO HS [facility] PRN Reason: Protocol Last Admin: 08/20/16 21:23 Dose: 5 mg Ferrous Gluconate (Fergon) 324 mg PO TID [facility] Last Admin: 08/21/16 10:08 Dose: 324 mg Hydralazine HCl (Apresoline) 25 mg PO QID PRN; Protocol PRN Reason: Systolic Blood Pressure Heparin Sodium/Sodium Chloride (Heparin 43591 Units/250ml 1/2 Normal Saline) 25 ,000 units in 250 mls @ 6.831 mls/hr IV .Q24H PRN; Protocol; 11.62 UNITS/KG/HR PRN Reason: ADJUST RATE PER PROTOCOL Last Admin: 08/20/16 06:37 Dose: 13.6 units/kg/hr, 7.995 mls/hr Linezolid (Zyvox 600mg/300ml D5w) 600 mg in 300 mls @ 200 mls/hr IVPB 0600, 1800 [facility] PRN Reason: Protocol Stop: 08/22/16 07:29 Last Admin: 08/21/16 05:10 Dose: 200 mls/hr Losartan Potassium (Cozaar) 100 mg PO DAILY [facility] PRN Reason: Protocol Last Admin: 08/21/16 10:08 Dose: 100 mg Meclizine HCl (Antivert) 12.5 mg PO BID PRN; Protocol PRN Reason: Dizziness Metoprolol Tartrate (Lopressor) 25 mg PO BID [facility] PRN Reason: Protocol Last Admin: 08/21/16 10:09 Dose: Not Given Oxycodone/Acetaminophen (Percocet 5/325 Mg Tab) 1 tab PO Q6H PRN; Protocol PRN Reason: Pain, moderate (4-7) Last Admin: 08/21/16 05:14 Dose: 1 tab Pantoprazole Sodium (Protonix Ec Tab) 40 mg PO 0600 [facility] PRN Reason: Protocol Last Admin: 08/21/16 05:10 Dose: 40 mg Warfarin Sodium (Coumadin) 7.5 mg PO 1600 [facility] PRN Reason: Protocol Last Admin: 08/20/16 17:22 Dose: 7.5 mg - Labs Labs: 08/21/16 05:00 PT 21.3 Seconds (9.9-11.8) H 08/21/16 07:00 INR 1.97 (0.93-1.08) H 08/21/16 07:00 APTT 69.2 Seconds (23.7-30.8) H 08/21/16 07:00
[2016-08-21] MEDS: Heparin25000 units/250ml 1/2NS 25,000 UNITS/250 ML BAG IV PRN (13:45)
[2016-08-21] MEDS: Digoxin 125 mcg (0.125 mg) Tab PO SCH (13:52)
--- NOTE | 2016-08-21 16:43 | CP.PCM.PN ---
Subjective - Date & Time of Evaluation Date of Evaluation: 08/21/16 Time of Evaluation: 15:00 - Subjective Subjective: Internal Medicine/Infectious Disease Follow Up: August 21, 2016 80 yo AA female with syncopal episode at home witnessed in front of friends. The patient found to be anemic in hospital. Unclear if the patient is taking her medications at home. The patient has worsening signs of dementia. It is known that she refuses her memory medications at home. She live alone but had family nearby. Transfused two units of PRBCs yesterday. For cardiac workup. GI evaluation pending. Guiaic pending. Chronic Kidney Disease stage III. Cleared by Neurology and Cardiology. Followed by Hematology and Gastroenterology. In recovery s/p colonoscopy. Discussed with Dr. Gaytan. Discussed renal issues with Dr. Lemon especially difficult to control blood pressure. The patient with decrease in Hgb. Started heparin. In TCU. Heparin restarted and adjusting levels... watch for bleeding. Checking CBC values. Increasing Coumadin doses. Hgb is holding steady. Supportive care. VRE in urine cultures. Zyvox day 4. Would need 5-7 days of treatment in total. Still trying to increase Coumadin to therapeutic levels. Hgb has been stable. Objective - Vital Signs/Intake and Output Vital Signs (last 24 hours): Temp Pulse Resp BP Pulse Ox 98.7 F 70 18 128/68 94 L 08/21/16 10:00 08/21/16 10:00 08/21/16 10:00 08/21/16 10:09 08/21/16 10:00 Intake and Output: 08/21/16 08/21/16 06:59 18:59 Intake Total 250 Balance 250 - Medications Medications: Current Medications Alprazolam (Xanax) 0.5 mg PO Q12H PRN; Protocol PRN Reason: Anxiety Last Admin: 08/21/16 10:09 Dose: 0.5 mg Amlodipine Besylate (Norvasc) 10 mg PO DAILY [facility] PRN Reason: Protocol Last Admin: 08/21/16 10:09 Dose: 10 mg Atorvastatin Calcium (Lipitor) 20 mg PO DIN [facility] PRN Reason: Protocol Last Admin: 08/20/16 17:23 Dose: 20 mg Cholecalciferol (Vitamin D) 1,000 iu PO DAILY [facility] PRN Reason: Protocol Last Admin: 08/21/16 10:09 Dose: 1,000 iu Digoxin (Lanoxin) 0.125 mg PO 1400 [facility] PRN Reason: Protocol Last Admin: 08/21/16 13:52 Dose: 0.125 mg Docusate Sodium (Colace) 100 mg PO BID [facility] PRN Reason: Protocol Last Admin: 08/21/16 10:08 Dose: 100 mg Donepezil HCl (Aricept) 5 mg PO HS [facility] PRN Reason: Protocol Last Admin: 08/20/16 21:23 Dose: 5 mg Ferrous Gluconate (Fergon) 324 mg PO TID [facility] Last Admin: 08/21/16 13:52 Dose: 324 mg Hydralazine HCl (Apresoline) 25 mg PO QID PRN; Protocol PRN Reason: Systolic Blood Pressure Heparin Sodium/Sodium Chloride (Heparin 83726 Units/250ml 1/2 Normal Saline) 25 ,000 units in 250 mls @ 6.831 mls/hr IV .Q24H PRN; Protocol; 11.62 UNITS/KG/HR PRN Reason: ADJUST RATE PER PROTOCOL Last Admin: 08/21/16 13:45 Dose: 13.6 units/kg/hr, 7.995 mls/hr Linezolid (Zyvox) 600 mg PO 0600,1800 [facility] Stop: 08/22/16 06:01 Losartan Potassium (Cozaar) 100 mg PO DAILY [facility] PRN Reason: Protocol Last Admin: 08/21/16 10:08 Dose: 100 mg Meclizine HCl (Antivert) 12.5 mg PO BID PRN; Protocol PRN Reason: Dizziness Metoprolol Tartrate (Lopressor) 25 mg PO BID [facility] PRN Reason: Protocol Last Admin: 08/21/16 10:09 Dose: Not Given Oxycodone/Acetaminophen (Percocet 5/325 Mg Tab) 1 tab PO Q6H PRN; Protocol PRN Reason: Pain, moderate (4-7) Last Admin: 08/21/16 13:54 Dose: 1 tab Pantoprazole Sodium (Protonix Ec Tab) 40 mg PO 0600 [facility] PRN Reason: Protocol Last Admin: 08/21/16 05:10 Dose: 40 mg Warfarin Sodium (Coumadin) 7.5 mg PO 1600 [facility] PRN Reason: Protocol Last Admin: 08/20/16 17:22 Dose: 7.5 mg - Labs Labs: 06/16/17 05:00 PT 21.3 Seconds (9.9-11.8) H 08/21/16 07:00 INR 1.97 (0.93-1.08) H 08/21/16 07:00 APTT 69.2 Seconds (23.7-30.8) H 08/21/16 07:00 - Constitutional Appears: Non-toxic, No Acute Distress, Chronically Ill - Head Exam Head Exam: ATRAUMATIC, NORMOCEPHALIC - Eye Exam Eye Exam: EOMI, PERRL Pupil Exam: NORMAL ACCOMODATION, PERRL - ENT Exam ENT Exam: Mucous Membranes Moist, Normal External Ear Exam, TM's Normal Bilaterally - Neck Exam Neck Exam: Full ROM, Normal Inspection - Respiratory Exam Respiratory Exam: Clear to Ausculation Bilateral, NORMAL BREATHING PATTERN. absent: Rales, Rhonchi, Wheezes - Cardiovascular Exam Cardiovascular Exam: REGULAR RHYTHM, RRR, +S1, +S2 - GI/Abdominal Exam GI & Abdominal Exam: Soft, Normal Bowel Sounds. absent: Distended, Tenderness - Extremities Exam Extremities Exam: Full ROM, Normal Inspection - Neurological Exam Neurological Exam: Alert, Awake, CN II-XII Intact, Oriented x3 Additional comments: Can be forgetful - Psychiatric Exam Psychiatric exam: Normal Affect, Normal Mood - Skin Skin Exam: Intact, Normal Color Assessment and Plan - Assessment and Plan (Free Text) Assessment: 80 yo AA female with failing memory at home presenting with witnessed syncopal episode at home in front of friends. Brought to [facility] for further evaluation. Patient found to be anemic with loss of a few pounds compared to visit in the office a few weeks ago. Patient with known renal insufficiency following with Dr. Garduno/Gamaliel. Anemia and previous renal mass followed by Heme/Onc Dr. Sanchez. Syncope evaluation with Dr. Olivera of Neurology and Dr. Fonseca of Cardiology. GI evaluation with Dr. Gaytan as well. 2 units of PRBCs given for current anemia. Patient is significant dementia history that has worsened in the past 6-9 months. Patient known to miss doses of medication and sometimes takes medications twice. She lives alone but with some family nearby. Coloscopy done... discussed with Dr. Gaytan. Heparin started. Transferred to TCU. Hgb stable. Heparin continued. Coumadin restarted. Increased coumadin dosing as INR has been very slow to reach therapeutic levels. Supportive care. Plan to discharge once therapeutics. Checking for any GI bleeds during this time. VRE found in the urine. Zyvox started for treatment now on day 4. To complete 5-7 days of Zyvox in total. Zyvox switched to PO today. Supportive care. Cleared by Neurology and Cardiology. Followed by Hematology and Nephrology. Gastroenterology following. Patient remains forgetful. I will be away from 08/22 to 08/30, Dr. Bryan will be covering for me during this time.
--- NOTE | 2016-08-22 00:01 | PN ---
DATE: 08/21/2016 SUBJECTIVE: This patient was seen and evaluated earlier. The patient had status post inferior vena cava filter placement. PHYSICAL EXAMINATION: VITAL SIGNS: Temperature is 97.9, pulse 70, blood pressure 115/66. HEENT: Atraumatic, anicteric. NECK: Supple. HEART: S1, S2 heard. LUNGS: Bilateral air entry present. ABDOMEN: Soft. There is no tenderness. LABORATORY DATA: Hemoglobin 8.7, hematocrit 38.3. Coagulation: INR is 2.211. IMPRESSION: 1. Anemia. 2. Occult gastrointestinal bleeding. 3. Pulmonary embolism. 4. History of pneumonia. 5. History of cellulitis. 6. History of CHF. RECOMMENDATIONS: 1. Followup of the hemoglobin and hematocrit. 2. Empiric therapy with the PPI. 3. The patient's endoscopy scheduled earlier was canceled because felt to be higher risk as the joyce ent did have desaturation at that time. Thank you very much for allowing us to participate in the care of the patient. Ryan Gaytan MD cc: [id number] TT: 08/22/2016 00:01:14 Confirmation # [id number] Dictation # [id number] an
--- NOTE | 2016-08-22 00:06 | PN ---
DATE: 08/21/2016 This patient was seen and evaluated earlier today. The patient is on Coumadin now. No complaints of abdominal pain, tolerating the diet. PHYSICAL EXAMINATION: VITAL SIGNS: Afebrile, blood pressure is 128/68, respirations 18, pulse 70, O2 saturation is 94%. HEENT: Atraumatic. NECK: Supple. HEART: S1, S2 heard. LUNGS: Bilateral air entry present. ABDOMEN: Soft. There is no mass palpable. EXTREMITIES: No tenderness. IMPRESSION: This 80-year-old patient was found to be anemic with occult blood positive. Endoscopy r evealed a gastric ulcer and also colonic angiodysplasias. One angiodysplasia in the hepatic flexure was treated. There are also multiple small hairline angiodysplasias noticed in the right colon. The patient has a history of atrial fibrillation. The plan was to continue the anticoagulation with wong se followup of the hemoglobin and hematocrit. The patient's stool for occult blood was positive, but hemoglobin more or less remained stable. Would recommend to continue the anticoagulation with close followup of the hemoglobin and hematocrit. If there is any significant drop would consider di scontinuing it. These small hairline angiodysplasias in the right colon are not amenable for endosc opic management at the present time. Thank you very much for allowing us to participate in the care of the patient. Ryan Gaytan MD cc: [id number] TT: 08/22/2016 00:05:43 Confirmation # [id number] Dictation # [id number] an
[2016-08-22] MEDS: Oxycodone/Acetaminophen 5/325 mg Tab PO PRN ×3 (04:51→19:56)
[2016-08-22] MEDS: Pantoprazole 40 mg EC Tab PO SCH (05:42)
[2016-08-22 08:51] LABS: HEMATOCRIT 29.9 % (36.0-48.0); MEAN CELL VOLUME 79.5 fL (80.0-105.0); MEAN CORPUSCULAR HGB CONC 31.4 g/dl (31.0-37.0); MEAN PLATELET VOLUME 8.9 fl (7.0-11.0); RED CELL DISTRIBUTION WIDTH 27.2 % (11.5-14.5)
[2016-08-22 08:57] LABS: INR 1.82 (0.93-1.08); PARTIAL THROMBOPLASTIN TIME 36.6 Seconds (23.7-30.8)
[2016-08-22] MEDS: Digoxin 125 mcg (0.125 mg) Tab PO SCH (13:09)
--- NOTE | 2016-08-22 13:44 | PN ---
DATE: 08/22/2016 The patient seen and examined in TCU. Currently being treated for GI bleed as well as anemia. At th is point, she is currently stable. No complaints of any chest pain, no nausea, vomiting. No shortne ss of breath; however, has had multiple episodes of red blood in stool at this point. PHYSICAL EXAMINATION: VITAL SIGNS: Blood pressure is 132/61, pulse rate of 75, temperature is 99 orally. O2 saturation is within normal limits. HEENT: Normocephalic, atraumatic. Pale conjunctivae. Nonicteric sclerae. NECK: No JVD, no thyromegaly. CARDIOVASCULAR: Irregular rate and rhythm. S1, S2 appreciated. No S3 noted. LUNGS: Bilateral air entry is positive with decreased breath sounds at the bases at this point. ABDOMEN: Nondistended, nontender. Positive bowel sounds. EXTREMITIES: Peripheral pulses +2 with no pitting edema. LABORATORY DATA: WBCs of 6.0, hemoglobin of 9.4, hematocrit of 29.9, platelets of 300.0, INR current ly is 1.82. Chemistry within normal limits. Urine is within normal limits; however, she did have sto ol occult blood that was positive. ASSESSMENT: 1. Syncope. 2. Gastrointestinal bleed. 3. Anemia. 4. Coronary artery disease with atrial fibrillation. PLAN: At this time, did note a consult with Dr. Garduno as well as Dr. Suresh for anemia, Dr. Jarod koenig or syncope and Dr. Gaytan. At this point, we will hold her Coumadin due to gastrointestinal bleed and will call in for Dr. Oswald Lee for possible IVC filter. We will continue her pain medication a s well as medication reconciliation. Khari Maldonado MD cc: [id number] TT: 08/22/2016 13:43:33 Confirmation # [id number] Dictation # [id number] dn
--- NOTE | 2016-08-23 00:09 | PN ---
DATE: 08/22/2016 SUBJECTIVE: This patient was seen and evaluated earlier. PHYSICAL EXAMINATION: GENERAL: The patient is lying on the bed, not in acute distress. VITAL SIGNS: Pulse of 76, blood pressure 132/82, ____ and respirations 18. HEENT: Atraumatic and anicteric. NECK: Supple. HEART: S1, S2 heard. LUNGS: Bilateral air entry present. ABDOMEN: Soft. There is no mass palpable. No tenderness. EXTREMITIES: No edema. LABORATORY DATA: Hemoglobin has gone up to 9.4 with hematocrit 28.9. IMPRESSION: Paroxysmal atrial fibrillation. The patient had a syncopal episode and history of atria l fibrillation, initially was on anticoagulation and presently on hold. The patient was on ____ anti coagulation which has been on hold now. The patient did receive some vitamin K. The patient had an upper endoscopy and a colonoscopy done earlier. EGD revealed gastric ulcers. Colonoscopy revealed a ngiodysplasias. One of the angiodysplasias was treated. The anticoagulation is continued. Will need close monitoring the hemoglobin and hematocrit. The patient will need a repeat endoscopy in about 2 months' time to evaluate the healing of the ulcer. Thank you very much for allowing us to participate in the care of the patient. Ryan Gaytan MD cc: [id number] TT: 08/23/2016 00:08:51 Confirmation # [id number] Dictation # [id number] sn
[2016-08-23] MEDS: Oxycodone/Acetaminophen 5/325 mg Tab PO PRN ×4 (02:08→21:31)
[2016-08-23] MEDS: Pantoprazole 40 mg EC Tab PO SCH (05:27)
[2016-08-23 08:28] LABS: ADD MANUAL DIFF? NO
[2016-08-23 08:52] LABS: INR 1.26 (0.93-1.08)
[2016-08-23 09:00] LABS: ALB/GLOB RATIO 0.8 (1.1-1.8); BILIRUBIN,TOTAL 0.7 mg/dL (0.2-1.3); CALCIUM 8.9 mg/dL (8.4-10.5); POTASSIUM 4.2 mmol/L (3.6-5.0); TOTAL PROTEIN 7.2 g/dL (5.8-8.3)
[2016-08-23 09:32] LABS: BASO # 0.02 K/mm3 (0.0-2.0); BASO % 0.3 % (0.0-3.0); EOS # 0.1 (0.0-0.7); EOS % 1.3 % (1.5-5.0); GRAN # 5.54 (1.4-6.5); GRAN % 82.1 % (50.0-68.0); HEMATOCRIT 29.8 % (36.0-48.0); LYMPH # 0.7 (1.2-3.4); MEAN CELL VOLUME 79.5 fL (80.0-105.0); MEAN CORPUSCULAR HEMOGLOBIN 25.3 pg (25.0-35.0); MEAN CORPUSCULAR HGB CONC 31.9 g/dl (31.0-37.0); MEAN PLATELET VOLUME 8.6 fl (7.0-11.0); MONO # 0.4 (0.1-0.6); MONO % 5.3 % (1.0-6.0); PLATELET COUNT 304 10^3/uL (120.0-450.0); RED CELL DISTRIBUTION WIDTH 27.6 % (11.5-14.5); WHITE BLOOD COUNT 6.8 10^3/ul (4.5-11.0)
--- NOTE | 2016-08-23 11:45 | PN ---
DATE: 08/23/2016 The patient is seen and examined in the TCU. Currently is comfortable. No complaints of any chest p ain, no shortness of breath, no nausea, no vomiting. PHYSICAL EXAMINATION: VITAL SIGNS: Blood pressure is currently 128/65, pulse rate of 76. HEENT: Normocephalic, atraumatic. Pale conjunctivae, nonicteric sclerae. CARDIOVASCULAR: Irregular rate and rhythm. S1, S2 appreciated. No S3 noted. LUNGS: Bilateral air entry is positive. No wheezes or rhonchi. ABDOMEN: Nondistended, nontender. Positive bowel sounds. EXTREMITIES: Peripheral pulses +2 with no pitting edema. LABORATORY DATA: At this point, hemoglobin is currently 9.4, hematocrit of 29.9. INR is 1.26 down f rom 1.82. Chemistry within normal limits. She does have a Hemoccult positive, which was ordered. ASSESSMENT: 1. Syncope. 2. Gastrointestinal bleed. 3. Anemia. 4. History of paroxysmal atrial fibrillation. PLAN: At this time, we will consider discussing with Dr. Oswald Lee for possible IVC filter. GI is on board. We have been evaluating her. We will follow up in the morning for possible evaluation fo r IVC filter, and we will follow up the patient's CBC in the morning. Khari Maldonado MD cc: [id number] TT: 08/23/2016 11:44:58 Confirmation # [id number] Dictation # [id number] mone
[2016-08-23] MEDS: Digoxin 125 mcg (0.125 mg) Tab PO SCH (13:45)
--- NOTE | 2016-08-23 16:58 | PN ---
DATE: 08/23/2016 ADDENDUM This patient was seen and evaluated earlier today. The patient has no specific GI complaints. PHYSICAL EXAMINATION: VITAL SIGNS: He is afebrile. Temperature is 99.1, pulse 70, blood pressure is 135/61. HEENT: Atraumatic, anicteric. NECK: Supple. HEART: S1, S2 heard. LUNGS: Bilateral air entry present. ABDOMEN: Soft. There is no tenderness. LABORATORY DATA: No labs today except chemistry: BUN 16, creatinine is 1.3. IMPRESSION: This is an 80-year-old patient with a past medical history of paroxysmal atrial fibrilla tion, initially admitted following a syncopal episode. The patient was found to be anemic with a sto ol for occult blood positive. The patient did have a transfusion. Had an esophagogastroduodenoscopy and colonoscopy done. Esophagogastroduodenoscopy showed a gastric ulcer and colonoscopy had angiody splasia. One of the angiodysplasias was cauterized. There were a few angiodysplasias noticed in the ascending colon. The patient was initially started on heparin, then Coumadin, which has been now discontinued. Dr. Maldonado's notes reviewed. We will discuss with Dr. Maldonado who is covering fo r Dr. Crum. Continue to closely follow up the hemoglobin and hematocrit. Thank you very much for allowing us to participate in the care of the patient. Ryan Gaytan MD cc: [id number] TT: 08/23/2016 16:57:42 Confirmation # [id number] Dictation # [id number] jodee
[2016-08-24] MEDS: Oxycodone/Acetaminophen 5/325 mg Tab PO PRN ×3 (02:31→16:11)
[2016-08-24] MEDS: Pantoprazole 40 mg EC Tab PO SCH (05:18)
[2016-08-24 07:03] LABS: ADD MANUAL DIFF? NO
[2016-08-24 07:20] LABS: BASO # 0.02 K/mm3 (0.0-2.0); BASO % 0.3 % (0.0-3.0); EOS # 0.1 (0.0-0.7); EOS % 1.1 % (1.5-5.0); GRAN # 6.05 (1.4-6.5); HEMATOCRIT 29.3 % (36.0-48.0); LYMPH # 0.9 (1.2-3.4); LYMPH % 12.5 % (22.0-35.0); MEAN CELL VOLUME 79.8 fL (80.0-105.0); MEAN CORPUSCULAR HEMOGLOBIN 24.8 pg (25.0-35.0); MEAN CORPUSCULAR HGB CONC 31.1 g/dl (31.0-37.0); MEAN PLATELET VOLUME 9.5 fl (7.0-11.0); MONO # 0.4 (0.1-0.6); MONO % 5.1 % (1.0-6.0); PLATELET COUNT 369 10^3/uL (120.0-450.0); WHITE BLOOD COUNT 7.5 10^3/ul (4.5-11.0)
[2016-08-24 07:24] LABS: ALB/GLOB RATIO 0.8 (1.1-1.8); BILIRUBIN,TOTAL 0.7 mg/dL (0.2-1.3); POTASSIUM 4.1 mmol/L (3.6-5.0)
--- NOTE | 2016-08-24 11:14 | CP.PCM.PN ---
Subjective - Date & Time of Evaluation Date of Evaluation: 08/24/16 Time of Evaluation: 11:12 - Subjective Subjective: Follow up Nephrology Consultation: Assessment: Acute kidney injury likely hemodynamic: resolved Chronic Kidney Disease Stage 3 (N18.3) with ? proteinuria possibly due to HTN, age related decline, and s/p Rt nephrectomy due to hx of RCC Anemia s/p PRBC, Hypertension controlled (I12.9) Vit D insufficiency with secondary hyperparathyroidism Plan Hypertension control with meds as ordered. norvasc 10 mg/day, on losartan 100 mg /day and lopressor 25 bid, prn hydralazine. She is already on statin started on vit D supplement 1000 unit/day, iron 324 mg TID Re-ordered spot protein/creatinine and albumin/creatinine ratio Dose meds/antibiotics for reduced GFR ~ 40. Avoid fleets enema/magnesium based laxatives. Avoid nephrotoxins/NSAIDs Further work up as per primary team Thanks for allowing me to participate in care of your patient. Will follow patient with you. Please call if any Qs Dr Jt Lemon Office: [phone] HPI: Pt is a 80 y/o F with hx of hypertension (20 years) , renal cell cancer s/ p unilateral total nephrectomy, CKD stage 3 with baseline cr 1.4-1.7 since 2017 , anemia, A fib came with anemia and dizziness ? syncope. found to have anemia and got PRBC transfusion renal consult for elevated creatinine eval and HTN control Subjective: noted events overnight Denies chest pain, palpitation, shortness of breath, leg swelling had colonoscopy Physical Examination: General Appearance: Comfortable, in no acute respiratory distress, co-operative Vitals reviewed and noted as below Lungs: Normal respiratory rate/effort. Breath sounds bilateral equal and few basal crackles Heart: Normal rate. s1s2 normal. No rub or gallop. Skin: Warm and dry. Normal turgor. No rash. Palpitation: Normal elasticity for age Abdomen: Abdomen is soft. Bowel sounds +. There is no abdominal tenderness, no guarding/rigidity or organomegaly. : kidney or bladder not palpable Labs/imaging reviewed. Past medical history, past surgical history, family history, social history, allergy reviewed work up: CT head and CXR unremarkable BNP 0 UA: [address] 2017: s/p Rt nephrectomy, left kidney unremarkable TSAT 91% Ferritin 9 Vit D 21 PTH 229 Objective - Vital Signs/Intake and Output Vital Signs (last 24 hours): Temp Pulse Resp BP Pulse Ox 98.7 F 73 20 128/83 95 08/24/16 10:00 08/24/16 10:05 08/24/16 10:00 08/24/16 10:06 08/24/16 10:00 - Medications Medications: Current Medications Alprazolam (Xanax) 0.5 mg PO Q12H PRN; Protocol PRN Reason: Anxiety Last Admin: 08/23/16 00:32 Dose: 0.5 mg Amlodipine Besylate (Norvasc) 10 mg PO DAILY [facility] PRN Reason: Protocol Last Admin: 08/24/16 10:06 Dose: 10 mg Atorvastatin Calcium (Lipitor) 20 mg PO DIN [facility] PRN Reason: Protocol Last Admin: 08/23/16 17:03 Dose: 20 mg Cholecalciferol (Vitamin D) 1,000 iu PO DAILY [facility] PRN Reason: Protocol Last Admin: 08/24/16 10:06 Dose: 1,000 iu Digoxin (Lanoxin) 0.125 mg PO 1400 [facility] PRN Reason: Protocol Last Admin: 08/23/16 13:45 Dose: 0.125 mg Docusate Sodium (Colace) 100 mg PO BID [facility] PRN Reason: Protocol Last Admin: 08/24/16 10:04 Dose: 100 mg Donepezil HCl (Aricept) 5 mg PO HS [facility] PRN Reason: Protocol Last Admin: 08/23/16 21:31 Dose: 5 mg Ferrous Gluconate (Fergon) 324 mg PO TID [facility] Last Admin: 08/24/16 10:05 Dose: 324 mg Hydralazine HCl (Apresoline) 25 mg PO QID PRN; Protocol PRN Reason: Systolic Blood Pressure Losartan Potassium (Cozaar) 100 mg PO DAILY [facility] PRN Reason: Protocol Last Admin: 08/24/16 10:05 Dose: 100 mg Meclizine HCl (Antivert) 12.5 mg PO BID PRN; Protocol PRN Reason: Dizziness Metoprolol Tartrate (Lopressor) 25 mg PO BID [facility] PRN Reason: Protocol Last Admin: 08/24/16 10:05 Dose: 25 mg Oxycodone/Acetaminophen (Percocet 5/325 Mg Tab) 1 tab PO Q6H PRN; Protocol PRN Reason: Pain, moderate (4-7) Last Admin: 08/24/16 08:20 Dose: 1 tab Pantoprazole Sodium (Protonix Ec Tab) 40 mg PO 0600 [facility] PRN Reason: Protocol Last Admin: 08/24/16 05:18 Dose: 40 mg - Labs Labs: 08/24/16 06:15 08/24/16 06:15 PT 13.6 Seconds (9.9-11.8) H 08/23/16 08:26 INR 1.26 (0.93-1.08) H 08/23/16 08:26 APTT 36.6 Seconds (23.7-30.8) H 08/22/16 08:39
--- NOTE | 2016-08-24 13:12 | PN ---
DATE: 08/24/2016 The patient is in a chair, comfortable, without shortness of breath in the TCU. PHYSICAL EXAMINATION: VITAL SIGNS: Blood pressure 128/83. The heart rate is in the 70s. NECK: Negative JVD. LUNGS: Without rales. HEART: Reveals S1, S2. EXTREMITIES: Without edema. LABORATORY DATA: The hemoglobin is 9.1. Chemistries are unremarkable other than a glucose of 148. IMPRESSION: 1. Resolution of Clostridium difficile. 2. Atrial fibrillation. 3. Anemia. 4. History of gastrointestinal bleed. 5. Hypertension. Given these findings, the patient is hemodynamically doing well. I am concerned that the patient may not be able to be anticoagulated safely given her multiple comorbidities. Oswald Fonseca MD cc: [id number] TT: 08/24/2016 13:11:51 Confirmation # [id number] Dictation # [id number] mn
[2016-08-24] MEDS: Digoxin 125 mcg (0.125 mg) Tab PO SCH (13:39)
--- NOTE | 2016-08-24 14:16 | PN ---
DATE: 08/24/2016 Seen and examined at the bedside earlier today. The patient denies any nausea, vomiting, abdominal p ain. No acute overnight events reported. Tolerating oral intake and moving her bowels. No reports of any overt GI bleed. VITAL SIGNS: Temperature is 98.7, blood pressure is 128/83, pulse 73, respirations 20, 95% nasal can nula. LABORATORIES: WBC is 7.5, H and H is 9.1 and 29.3, platelets are 369. Sodium is 136, K 4.1, BUN is 18, creatinine is 1.3. Total bilirubin is 0.7, AST 46, ALT 62, alk phos is 115. AST/ALT are improvi ng. PHYSICAL EXAMINATION: HEENT: Sclera is anicteric. NECK: Supple. CARDIAC: S1, S2. LUNG SOUNDS: With decreased breath sounds at the bases, but good air entry, no rales or wheeze. ABDOMEN: With bowel sounds, soft, nontender, no rebound or guarding. ASSESSMENT: An 80-year-old patient with a past medical history of paroxysmal atrial fibrillation, ca me status post syncopal episode. The patient was found to have anemia and was guaiac positive. She had endoscopy, which showed gastric ulcers and colonoscopy with angiodysplasia and had cautery. She also did have a blood transfusion. The patient also history of renal mass with a right nephrectomy. PLAN: Continue to monitor H and H. The patient is currently off anticoagulants. Continue iron supp lements and stool softener. The patient is on Lopressor. The patient was seen and case discussed with Dr. Gaytan. Elyse Sandersones GISSELL cc: [id number] TT: 08/24/2016 14:16:30 Confirmation # [id number] Dictation # [id number]
--- NOTE | 2016-08-24 20:30 | PN ---
DATE: 08/24/2016 ADDENDUM: This is an addendum to the GI progress report dictated by Elyse Moran APN. I did discuss with Dr. Maldonado earlier. On examination, the patient comfortable, no complaints of any abdominal pain. The patient is off the anticoagulation now. The patient has guaiac positive stool, anemia. The patient is off the anticoa gulation. History of atrial fibrillation. The patient had an endoscopy that showed gastric ulcer. Colonoscopy had angiodysplasia . Discussed with Dr. Maldonado the concern about recurrent fall, r isk of fall. The patient did have a near syncopal episode while in the druze. the risk of fa ll with anticoagulation and compliance was a concern. RECOMMENDATIONS: Would recommend GI perspective the patient needs to be closely followed up of the h emoglobin and hematocrit if the anticoagulation is resumed. Thank you very much for allowing us to participate in the care of the patient. Ryan Gaytan MD cc: [id number] TT: 08/24/2016 20:29:26 Confirmation # [id number] Dictation # [id number] mn
--- NOTE | 2016-08-24 22:59 | CP.PCM.PN ---
Subjective - Date & Time of Evaluation Date of Evaluation: 08/24/16 Time of Evaluation: 18:15 - Subjective Subjective: Appears comfortable anticoagulation held due to GI bleeding Objective - Vital Signs/Intake and Output Vital Signs (last 24 hours): Temp Pulse Resp BP Pulse Ox 98.6 F 76 20 123/66 98 08/24/16 16:00 08/24/16 17:37 08/24/16 16:00 08/24/16 17:37 08/24/16 16:00 - Medications Medications: Current Medications Alprazolam (Xanax) 0.5 mg PO Q12H PRN; Protocol PRN Reason: Anxiety Last Admin: 08/23/16 00:32 Dose: 0.5 mg Amlodipine Besylate (Norvasc) 10 mg PO DAILY [facility] PRN Reason: Protocol Last Admin: 08/24/16 10:06 Dose: 10 mg Atorvastatin Calcium (Lipitor) 20 mg PO DIN [facility] PRN Reason: Protocol Last Admin: 08/24/16 17:36 Dose: 20 mg Cholecalciferol (Vitamin D) 1,000 iu PO DAILY [facility] PRN Reason: Protocol Last Admin: 08/24/16 10:06 Dose: 1,000 iu Digoxin (Lanoxin) 0.125 mg PO 1400 [facility] PRN Reason: Protocol Last Admin: 08/24/16 13:39 Dose: 0.125 mg Docusate Sodium (Colace) 100 mg PO BID [facility] PRN Reason: Protocol Last Admin: 08/24/16 17:36 Dose: 100 mg Donepezil HCl (Aricept) 5 mg PO HS [facility] PRN Reason: Protocol Last Admin: 08/24/16 21:35 Dose: 5 mg Ferrous Gluconate (Fergon) 324 mg PO TID [facility] Last Admin: 08/24/16 17:37 Dose: 324 mg Hydralazine HCl (Apresoline) 25 mg PO QID PRN; Protocol PRN Reason: Systolic Blood Pressure Losartan Potassium (Cozaar) 100 mg PO DAILY [facility] PRN Reason: Protocol Last Admin: 08/24/16 10:05 Dose: 100 mg Meclizine HCl (Antivert) 12.5 mg PO BID PRN; Protocol PRN Reason: Dizziness Metoprolol Tartrate (Lopressor) 25 mg PO BID [facility] PRN Reason: Protocol Last Admin: 08/24/16 17:37 Dose: 25 mg Oxycodone/Acetaminophen (Percocet 5/325 Mg Tab) 1 tab PO Q6H PRN; Protocol PRN Reason: Pain, moderate (4-7) Last Admin: 08/24/16 16:11 Dose: 1 tab Pantoprazole Sodium (Protonix Ec Tab) 40 mg PO 0600 [facility] PRN Reason: Protocol Last Admin: 08/24/16 05:18 Dose: 40 mg - Labs Labs: 08/24/16 06:15 08/24/16 06:15 PT 13.6 Seconds (9.9-11.8) H 08/23/16 08:26 INR 1.26 (0.93-1.08) H 08/23/16 08:26 APTT 36.6 Seconds (23.7-30.8) H 08/22/16 08:39 - Head Exam Head Exam: ATRAUMATIC - Eye Exam Eye Exam: Normal appearance - ENT Exam ENT Exam: Mucous Membranes Dry - Respiratory Exam Respiratory Exam: NORMAL BREATHING PATTERN - Cardiovascular Exam Cardiovascular Exam: +S1, +S2 - GI/Abdominal Exam GI & Abdominal Exam: Normal Bowel Sounds - Extremities Exam Extremities Exam: Normal Inspection Assessment and Plan (1) Anemia Assessment & Plan: iron deficiency from chronic GI blood loss anticoagulation for afib held treated with prior PRBC transfusion and IV iron currently on oral iron will repeat ferritin and redose IV iron if needed element of anemia of CKD Status: Acute
[2016-08-25] MEDS: Oxycodone/Acetaminophen 5/325 mg Tab PO PRN ×3 (02:00→15:53)
[2016-08-25] MEDS: Pantoprazole 40 mg EC Tab PO SCH (06:02)
[2016-08-25 11:22] VITALS: RESP 18
--- NOTE | 2016-08-25 13:06 | CP.PCM.PN ---
Subjective - Date & Time of Evaluation Date of Evaluation: 08/25/16 Time of Evaluation: 13:05 - Subjective Subjective: Follow up Nephrology Consultation: Assessment: Chronic Kidney Disease Stage 3 (N18.3) with ? proteinuria possibly due to HTN, age related decline, and s/p Rt nephrectomy due to hx of RCC Anemia s/p PRBC, Hypertension controlled (I12.9) Vit D insufficiency with secondary hyperparathyroidism Acute kidney injury likely hemodynamic: resolved Plan Hypertension control with meds as ordered. norvasc 10 mg/day, on losartan 100 mg /day and lopressor 25 bid, prn hydralazine. She is already on statin started on vit D supplement 1000 unit/day, iron 324 mg TID Re-ordered spot protein/creatinine and albumin/creatinine ratio Dose meds/antibiotics for reduced GFR ~ 40. Avoid fleets enema/magnesium based laxatives. Avoid nephrotoxins/NSAIDs Further work up as per primary team Thanks for allowing me to participate in care of your patient. Will follow patient with you. Please call if any Qs Dr Jt Lemon Office: [phone] HPI: Pt is a 80 y/o F with hx of hypertension (20 years) , renal cell cancer s/ p unilateral total nephrectomy, CKD stage 3 with baseline cr 1.4-1.7 since 2017 , anemia, A fib came with anemia and dizziness ? syncope. found to have anemia and got PRBC transfusion renal consult for elevated creatinine eval and HTN control Subjective: noted events overnight Denies chest pain, palpitation, shortness of breath, leg swelling had colonoscopy Physical Examination: General Appearance: Comfortable, in no acute respiratory distress, co-operative Vitals reviewed and noted as below Lungs: Normal respiratory rate/effort. Breath sounds bilateral equal and few basal crackles Heart: Normal rate. s1s2 normal. No rub or gallop. Skin: Warm and dry. Normal turgor. No rash. Palpitation: Normal elasticity for age Abdomen: Abdomen is soft. Bowel sounds +. There is no abdominal tenderness, no guarding/rigidity or organomegaly. : kidney or bladder not palpable Labs/imaging reviewed. Past medical history, past surgical history, family history, social history, allergy reviewed work up: CT head and CXR unremarkable BNP 0 UA: [address] 2017: s/p Rt nephrectomy, left kidney unremarkable TSAT 91% Ferritin 9 Vit D 21 PTH 229 Objective - Vital Signs/Intake and Output Vital Signs (last 24 hours): Temp Pulse Resp BP Pulse Ox 98.5 F 72 18 130/76 98 08/25/16 10:00 08/25/16 10:11 08/25/16 10:00 08/25/16 10:11 08/25/16 10:00 - Medications Medications: Current Medications Alprazolam (Xanax) 0.5 mg PO Q12H PRN; Protocol PRN Reason: Anxiety Last Admin: 08/23/16 00:32 Dose: 0.5 mg Amlodipine Besylate (Norvasc) 10 mg PO DAILY [facility] PRN Reason: Protocol Last Admin: 08/25/16 10:11 Dose: 10 mg Atorvastatin Calcium (Lipitor) 20 mg PO DIN [facility] PRN Reason: Protocol Last Admin: 08/24/16 17:36 Dose: 20 mg Cholecalciferol (Vitamin D) 1,000 iu PO DAILY [facility] PRN Reason: Protocol Last Admin: 08/25/16 10:11 Dose: 1,000 iu Digoxin (Lanoxin) 0.125 mg PO 1400 [facility] PRN Reason: Protocol Last Admin: 08/24/16 13:39 Dose: 0.125 mg Docusate Sodium (Colace) 100 mg PO BID [facility] PRN Reason: Protocol Last Admin: 08/25/16 10:10 Dose: 100 mg Donepezil HCl (Aricept) 5 mg PO HS [facility] PRN Reason: Protocol Last Admin: 08/24/16 21:35 Dose: 5 mg Ferrous Gluconate (Fergon) 324 mg PO TID [facility] Last Admin: 08/25/16 10:11 Dose: 324 mg Hydralazine HCl (Apresoline) 25 mg PO QID PRN; Protocol PRN Reason: Systolic Blood Pressure Losartan Potassium (Cozaar) 100 mg PO DAILY [facility] PRN Reason: Protocol Last Admin: 08/25/16 10:10 Dose: 100 mg Meclizine HCl (Antivert) 12.5 mg PO BID PRN; Protocol PRN Reason: Dizziness Metoprolol Tartrate (Lopressor) 25 mg PO BID [facility] PRN Reason: Protocol Last Admin: 08/25/16 10:11 Dose: 25 mg Oxycodone/Acetaminophen (Percocet 5/325 Mg Tab) 1 tab PO Q6H PRN; Protocol PRN Reason: Pain, moderate (4-7) Last Admin: 08/25/16 08:19 Dose: 1 tab Pantoprazole Sodium (Protonix Ec Tab) 40 mg PO 0600 [facility] PRN Reason: Protocol Last Admin: 08/25/16 06:02 Dose: 40 mg - Labs Labs: 08/24/16 06:15 08/24/16 06:15 PT 13.6 Seconds (9.9-11.8) H 08/23/16 08:26 INR 1.26 (0.93-1.08) H 08/23/16 08:26 APTT 36.6 Seconds (23.7-30.8) H 08/22/16 08:39
[2016-08-25] MEDS: Digoxin 125 mcg (0.125 mg) Tab PO SCH (14:18)
[2016-08-25 14:20] VITALS: PULSE 76
--- NOTE | 2016-08-25 16:04 | CP.PCM.DIS ---
Provider - Provider Date of Admission: 08/16/16 16:01 Attending physician: Amador Crum MD Primary care physician: Amador Crum MD Consults: Nephro: Garduno Cardio: Raymundo Neuro: Kelsey Olivera Heme-onc: Daniel GI: Lukas IR: Oswald Lee Time Spent in preparation of Discharge (in minutes): 50 Hospital Course - Lab Results Lab Results: Most Recent Lab Values WBC 7.5 10^3/ul (4.5-11.0) 08/24/16 06:15 RBC 3.67 10^6/uL (3.5-6.1) 08/24/16 06:15 Hgb 9.1 gm/dL (12.0-16.0) L 08/24/16 06:15 Hct 29.3 % (36.0-48.0) L 08/24/16 06:15 MCV 79.8 fL (80.0-105.0) L 08/24/16 06:15 MCH 24.8 pg (25.0-35.0) L 08/24/16 06:15 MCHC 31.1 g/dl (31.0-37.0) 08/24/16 06:15 RDW 28.0 % (11.5-14.5) H 08/24/16 06:15 Plt Count 369 10^3/uL (120.0-450.0) 08/24/16 06:15 MPV 9.5 fl (7.0-11.0) 08/24/16 06:15 Gran % 81.0 % (50.0-68.0) H 08/24/16 06:15 Lymph % (Auto) 12.5 % (22.0-35.0) L 08/24/16 06:15 [place] % (Auto) 5.1 % (1.0-6.0) 08/24/16 06:15 Eos % (Auto) 1.1 % (1.5-5.0) L 08/24/16 06:15 Baso % (Auto) 0.3 % (0.0-3.0) 08/24/16 06:15 Gran # 6.05 (1.4-6.5) 08/24/16 06:15 Lymph # 0.9 (1.2-3.4) L 08/24/16 06:15 [place] # 0.4 (0.1-0.6) 08/24/16 06:15 Eos # 0.1 (0.0-0.7) 08/24/16 06:15 Baso # 0.02 K/mm3 (0.0-2.0) 08/24/16 06:15 Corrected WBC (Man) 6.1 K/mm3 (4.5-11.0) 08/17/16 07:00 Neutrophils % (Manual) 83 % (50.0-70.0) H 08/17/16 07:00 Lymphocytes % (Manual) 9 % (22.0-35.0) L 08/17/16 07:00 Monocytes % (Manual) 2 % (1.0-6.0) 08/17/16 07:00 Eosinophils % (Manual) 6 % (0.0-3.0) H 08/17/16 07:00 Nucleated RBC % 12 % 08/17/16 07:00 Platelet Evaluation Normal (NORMAL) 08/17/16 07:00 Hypochromasia 1+ 08/17/16 07:00 Poikilocytosis (manual Slight 08/17/16 07:00 Microcytosis (manual) Slight 08/17/16 07:00 Ovalocytes Slight 08/17/16 07:00 PT 13.6 Seconds (9.9-11.8) H 08/23/16 08:26 INR 1.26 (0.93-1.08) H 08/23/16 08:26 APTT 36.6 Seconds (23.7-30.8) H 08/22/16 08:39 Sodium 136 mmol/L (132-148) 08/24/16 06:15 Potassium 4.1 mmol/L (3.6-5.0) 08/24/16 06:15 Chloride 106 mmol/L (95-110) 08/24/16 06:15 Carbon Dioxide 23 mmol/L (21-33) 08/24/16 06:15 Anion Gap 11 (10-20) 08/24/16 06:15 BUN 18 mg/dL (7-21) 08/24/16 06:15 Creatinine 1.3 mg/dL (0.5-1.4) 08/24/16 06:15 Est GFR ( Amer) 48 08/24/16 06:15 Est GFR (Non-Af Amer) 39 08/24/16 06:15 POC Glucose (mg/dL) 108 mg/dL (65-110) 08/18/16 17:19 Random Glucose 148 mg/dL (70-110) H 08/24/16 06:15 Calcium 9.0 mg/dL (8.4-10.5) 08/24/16 06:15 Ferritin 566.0 ng/mL 08/25/16 06:30 Total Bilirubin 0.7 mg/dL (0.2-1.3) 08/24/16 06:15 AST 46 U/L (15-39) H 08/24/16 06:15 ALT 62 U/L (7-56) H 08/24/16 06:15 Alkaline Phosphatase 115 U/L (38-133) 08/24/16 06:15 Total Protein 7.0 g/dL (5.8-8.3) 08/24/16 06:15 Albumin 3.2 g/dL (3.0-4.8) 08/24/16 06:15 Globulin 3.8 gm/dL 08/24/16 06:15 Albumin/Globulin Ratio 0.8 (1.1-1.8) L 08/24/16 06:15 Ur Random Creatinine 65 mg/dL 08/25/16 06:20 Stool Occult Blood Positive (NEGATIVE) H 08/21/16 10:30 - Hospital Course Hospital Course: This is an 80 yo AA F with PMH of HTN, Anxiety, history of renal cancer/mass s/ p R nephrectomy, sciatica, hypercholesterolemia, prior tobacco use history, and atrial fibrillation who initially presented to [facility] due to a syncopal episode determined to be 2/2 blood loss anemia. Patient was later discharged to the TCU for conditioning and further workup, during which time she was restarted on anticoagulation (Coumadin bridged by heparin). However, she developed bright red blood per rectum, so her anticoagulation was stopped, and GI assessed the patient for EGD/Colonoscopy. Multiple hairline AVMs were found on colonoscopy, as well as one that was amenable to cauterization. Post endoscopy/colonoscopy, the patient was restarted on anticoagulation therapy, but redeveloped bleeding, so all anticoagulation was stopped. IR was consulted for possible IVC filter placement given patient's inability to tolerate anticoagulation, but it was decided that the risks of IVC filter placement did not outweigh the benefits. Patient continues to have all Anticoagulation held, and her H&H has been stable since that time, with no further reports of rectal bleeding. Patient was instructed to stop taking her home Warfarin, and to follow up with her PMD within 1 week of discharge. She was also instructed to call the office or present to the ED if she experienced any new near-syncopal/syncopal symptoms, or if she developed persistent bleeding per rectum. She expressed understanding and agreement. All medications were transmitted to the in-house pharmacy so as to be available to the patient on discharge. She was instructed to take all medications as prescribed (except for the Warfarin). Patient expressed understanding and agreement. Patient was then discharged. Patient discussed and reviewed with attending. Discharge Exam - Head Exam Head Exam: ATRAUMATIC, NORMAL INSPECTION, NORMOCEPHALIC - Eye Exam Eye Exam: EOMI, Normal appearance. absent: Conjunctival injection, Scleral icterus Pupil Exam: absent: Irregular, Unequal - ENT Exam ENT Exam: Mucous Membranes Moist. absent: Mucous Membranes Dry - Neck Exam Neck exam: Normal Inspection - Respiratory Exam Respiratory Exam: Clear to PA & Lateral, NORMAL BREATHING PATTERN, UNREMARKABLE. absent: Rales, Rhonchi, Wheezes, Respiratory Distress - Cardiovascular Exam Cardiovascular Exam: REGULAR RHYTHM, RRR, +S1, +S2. absent: Bradycardia, Tachycardia, Irregular Rhythm, +S4 - GI/Abdominal Exam GI & Abdominal Exam: Normal Bowel Sounds, Soft, Unremarkable. absent: Diminished Bowel Sounds, Distended, Firm, Hyperactive Bowel Sounds, Hypoactive Bowel Sounds, Rigid, Tenderness - Extremities Exam Additional comments: No calf tenderness, pedal edema, or erythema bilaterally +1 dorsalis pedis pulses bilaterally, +2 radial pulses bilaterally - Neurological Exam Additional comments: Awake and alert, oriented to self and location, no oriented to year, high functioning (not oriented to year, but knows to check the paper to see the date) - Psychiatric Exam Psychiatric exam: Normal Affect, Normal Mood Additional comments: high functioning (not oriented to year, but knows to check the paper to see the date) - Skin Skin Exam: Dry, Intact, Normal Color (some chronic age-related skin changes in bilateral lower extremities), Warm Discharge Plan - Discharge Medications Prescriptions: Atorvastatin [Lipitor] 20 mg PO DAILY #30 Digoxin [Lanoxin] 0.125 mg PO DAILY #30 tab Docusate Sodium [Colace] 100 mg PO BID #60 capsule Donepezil [Aricept] 10 mg PO HS #30 tab Ferrous Gluconate [Fergon] 324 mg PO TID #90 tab Furosemide [Lasix] 20 mg PO DAILY #30 tab Metoprolol Tartrate [Lopressor] 50 mg PO BID #60 tab Pantoprazole [Protonix] 40 mg PO DAILY #30 ect - Follow Up Plan Condition: GOOD Disposition: HOME/ ROUTINE Patient education suggested?: Yes Instructions: Atrial Fibrillation (DC), Pain Management in the Elderly (DC), Heart Healthy Diet (DC), Syncope (DC), Chronic Hypertension (DC), Anxiety (DC), Fall Prevention (DC) Additional Instructions: Please stop taking your Coumadin/Warfarin (blood thinner medication). Do not resume any blood thinning medication until directed to do so by your Primary Medical Doctor. Please take all medications provided as prescribed. Please follow up with your Primary Medical Doctor (Dr. Crum) within 1 week of discharge Please go to your PMD's office or present to the ED with persisting or worsening symptoms of weakness, dizziness, or nearly passing out. Referrals: Amador Crum MD [Primary Care Provider] - 1 Week
[2016-08-25 16:17] VITALS: BP 125/65; PULSE 76; TEMP 98.2; O2SAT 95
--- NOTE | 2016-08-25 20:06 | CP.PCM.PN ---
Subjective - Date & Time of Evaluation Date of Evaluation: 08/25/16 Time of Evaluation: 13:00 - Subjective Subjective: No complaints. Objective - Vital Signs/Intake and Output Vital Signs (last 24 hours): Temp Pulse Resp BP Pulse Ox 98.2 F 76 18 125/65 95 08/25/16 16:00 08/25/16 18:15 08/25/16 16:00 08/25/16 18:15 08/25/16 16:00 - Medications Medications: Current Medications Alprazolam (Xanax) 0.5 mg PO Q12H PRN; Protocol PRN Reason: Anxiety Last Admin: 08/23/16 00:32 Dose: 0.5 mg Amlodipine Besylate (Norvasc) 10 mg PO DAILY [facility] PRN Reason: Protocol Last Admin: 08/25/16 10:11 Dose: 10 mg Atorvastatin Calcium (Lipitor) 20 mg PO DIN [facility] PRN Reason: Protocol Last Admin: 08/25/16 18:15 Dose: 20 mg Cholecalciferol (Vitamin D) 1,000 iu PO DAILY [facility] PRN Reason: Protocol Last Admin: 08/25/16 10:11 Dose: 1,000 iu Digoxin (Lanoxin) 0.125 mg PO 1400 [facility] PRN Reason: Protocol Last Admin: 08/25/16 14:18 Dose: 0.125 mg Docusate Sodium (Colace) 100 mg PO BID [facility] PRN Reason: Protocol Last Admin: 08/25/16 18:14 Dose: 100 mg Donepezil HCl (Aricept) 5 mg PO HS [facility] PRN Reason: Protocol Last Admin: 08/24/16 21:35 Dose: 5 mg Ferrous Gluconate (Fergon) 324 mg PO TID [facility] Last Admin: 08/25/16 18:16 Dose: 324 mg Hydralazine HCl (Apresoline) 25 mg PO QID PRN; Protocol PRN Reason: Systolic Blood Pressure Losartan Potassium (Cozaar) 100 mg PO DAILY [facility] PRN Reason: Protocol Last Admin: 08/25/16 10:10 Dose: 100 mg Meclizine HCl (Antivert) 12.5 mg PO BID PRN; Protocol PRN Reason: Dizziness Metoprolol Tartrate (Lopressor) 25 mg PO BID [facility] PRN Reason: Protocol Last Admin: 08/25/16 18:15 Dose: 25 mg Oxycodone/Acetaminophen (Percocet 5/325 Mg Tab) 1 tab PO Q6H PRN; Protocol PRN Reason: Pain, moderate (4-7) Last Admin: 08/25/16 15:53 Dose: 1 tab Pantoprazole Sodium (Protonix Ec Tab) 40 mg PO 0600 [facility] PRN Reason: Protocol Last Admin: 08/25/16 06:02 Dose: 40 mg - Labs Labs: 08/24/16 06:15 08/24/16 06:15 PT 13.6 Seconds (9.9-11.8) H 08/23/16 08:26 INR 1.26 (0.93-1.08) H 08/23/16 08:26 APTT 36.6 Seconds (23.7-30.8) H 08/22/16 08:39 - Head Exam Head Exam: ATRAUMATIC - Eye Exam Eye Exam: Normal appearance - ENT Exam ENT Exam: Mucous Membranes Dry - Respiratory Exam Respiratory Exam: NORMAL BREATHING PATTERN - Cardiovascular Exam Cardiovascular Exam: +S1, +S2 - GI/Abdominal Exam GI & Abdominal Exam: Normal Bowel Sounds - Extremities Exam Extremities Exam: Normal Inspection Assessment and Plan (1) Anemia Assessment & Plan: iron deficiency and CKD s/p PRBC transfusion and parenteral iron outpatient iron Status: Acute
== END 2016-08-25 19:50 | disposition home health service (06) | DRG 394 ==
LOC: TRCU 16:01
PROVIDERS: ADMIT Internal Medicine Infectious Disease; ATTEND Internal Medicine Infectious Disease
PROC: F07Z9ZZ Gait Training/Functional Ambulation Treatment (ICD-10-PCS; principal; 2016-08-18)
PROC: F07Z8ZZ Transfer Training Treatment (ICD-10-PCS; 2016-08-18)
PROC: F08Z2ZZ Grooming/Personal Hygiene Treatment (ICD-10-PCS; 2016-08-18)
PROC: F07L6YZ Therapeutic Exercise Treatment of Musculoskeletal System - Lower Back / Lower Extremity using Other Equipment (ICD-10-PCS; 2016-08-19)
PROC: F08Z1ZZ Dressing Techniques Treatment (ICD-10-PCS; 2016-08-19)
DX: K55.20 Angiodysplasia of colon without hemorrhage (principal); K25.9 Gastric ulcer, unspecified as acute or chronic, without hemorrhage or perforation; D50.0 Iron deficiency anemia secondary to blood loss (chronic); I42.0 Dilated cardiomyopathy; I48.0 Paroxysmal atrial fibrillation; N25.81 Secondary hyperparathyroidism of renal origin; I13.0 Hypertensive heart and chronic kidney disease with heart failure and stage 1 through stage 4 chronic kidney disease, or unspecified chronic kidney disease; I50.9 Heart failure, unspecified; N18.3 Chronic kidney disease, stage 3 (moderate); F03.90 Unspecified dementia, unspecified severity, without behavioral disturbance, psychotic disturbance, mood disturbance, and anxiety; E78.00 Pure hypercholesterolemia, unspecified; F41.9 Anxiety disorder, unspecified; E55.9 Vitamin D deficiency, unspecified; I25.10 Atherosclerotic heart disease of native coronary artery without angina pectoris; D63.1 Anemia in chronic kidney disease; Z72.0 Tobacco use; R55 Syncope and collapse; Z90.5 Acquired absence of kidney; Z85.528 Personal history of other malignant neoplasm of kidney; Z79.01 Long term (current) use of anticoagulants

== ENCOUNTER 2016-08-26 05:45 | Inpatient (IN) | payer MEDICARE ==
--- NOTE | 2016-08-26 06:13 | ED PDOC ---
Arrival/HPI <Meek Barr - Last Filed: 08/26/16 12:54> - General Historian: Patient - History of Present Illness Time/Duration: Prior to Arrival <Marsha Wooten - Last Filed: 08/26/16 19:16> <Alberto Marroquin - Last Filed: 08/27/16 05:08> - General Chief Complaint: Shortness Of Breath Time Seen by Provider: 08/26/16 05:48 - History of Present Illness Narrative History of Present Illness (Text): 08/26/16 06:08 80 yo AA F with PMH of a. fib, GI bleed, HTN, Anxiety, history of renal cancer/ mass s/p R nephrectomy, sciatica, hypercholesterolemia presented to ED with SOB. Patient was discharged from TCU yesterday after being treated for GI bleed and a. fib. Patient states that the SOB started in the evening while she was at rest. It continued throughout the night and she was unable to sleep. Patient states that it was somewhat better when sitting up. She states that she did previously have sob while in the hospital but it was improved with O2. She denies any fever, chill, abd pain, n/v. She does report chronic pain on her left side. PMD: Dr. Crum (Marsha Wooten) Past Medical History - Provider Review Nursing Documentation Reviewed: Yes - Infectious Disease Hx of Infectious Diseases: None - Tetanus Immunization Tetanus Immunization: >10 years Ago - Cardiac Hx Cardiac Disorders: Yes Hx Hypertension: Yes - Pulmonary Hx Respiratory Disorders: No - Neurological HX Cerebrovascular Accident: Yes - HEENT Hx HEENT Disorder: No - Renal Hx Renal Disorder: Yes Hx Renal Cancer: Yes Other/Comment: Right nephrectomy - Endocrine/Metabolic Hx Endocrine Disorders: No - Hematological/Oncological Hx Blood Disorders: No - Integumentary Hx Dermatological Disorder: No - Musculoskeletal/Rheumatological Hx Arthritis: Yes - Gastrointestinal Hx Gastrointestinal Disorders: No - Genitourinary/Gynecological Hx Genitourinary Disorders: No - Psychiatric Hx Psychophysiologic Disorder: Yes Hx Anxiety: Yes Hx Substance Use: No - Surgical History Other/Comment: Right nephrectomy - Anesthesia Hx Anesthesia Reactions: No Hx Malignant Hyperthermia: No <Marsha Wooten - Last Filed: 08/26/16 19:16> Family/Social History - Physician Review Nursing Documentation Reviewed: Yes Family/Social History: CAD/NE Smoking Status: Former Smoker Hx Alcohol Use: No Hx Substance Use: No <Marsha Wooten - Last Filed: 08/26/16 19:16> Allergies/Home Meds <Meek Barr - Last Filed: 08/26/16 12:54> <Marsha Wooten - Last Filed: 08/26/16 19:16> <Alberto Marroquin - Last Filed: 08/27/16 05:08> Allergies/Adverse Reactions: Allergies No Known Allergies Allergy (Verified 08/19/16 23:01) Home Medications: Home Meds Medication Instructions Recorded Confirmed oxyCODONE/Acetaminophen [Percocet 1 tab PO Q6 PRN 08/26/16 08/26/16 5/325 mg Tab] Review of Systems - Review of Systems Constitutional: Normal. absent: Fatigue, Fevers Eyes: Normal. absent: Vision Changes ENT: Normal. absent: Sore Throat, Rhinorrhea, Sinus Congestion Respiratory: SOB. absent: Cough, Wheezing Cardiovascular: Normal. absent: Chest Pain, Palpitations, Edema, Calf Pain, Syncope Gastrointestinal: Normal. absent: Abdominal Pain, Constipation, Diarrhea, Nausea, Vomiting Genitourinary Female: Normal. absent: Dysuria, Frequency, Hematuria Musculoskeletal: Normal, Myalgias. absent: Arthralgias, Back Pain Skin: Normal. absent: Rash, Pruritis, Laceration Neurological: Normal. absent: Headache, Dizziness Endocrine: Normal. absent: Diaphoresis Hemo/Lymphatic: Normal. absent: Adenopathy, Easy Bleeding, Easy Bruising Psychiatric: Normal <Marsha Wooten - Last Filed: 08/26/16 19:16> Physical Exam - Systems Exam Head: Present: Atraumatic, Normocephalic Pupils: Present: PERRL Extroacular Muscles: Present: EOMI. No: Gaze Palsy, Entrapment Conjunctiva: Present: Normal Mouth: Present: Moist Mucous Membranes Neck: Present: Normal Range of Motion Respiratory/Chest: Present: Clear to Auscultation, Good Air Exchange, Rhonchi. No: Respiratory Distress, Accessory Muscle Use, Wheezes, Rales, Tachypneic Cardiovascular: Present: Irregular Rhythm (a. fib). No: Murmurs, Tachycardic, Bradycardic Abdomen: Present: Normal Bowel Sounds. No: Tenderness, Distention, Peritoneal Signs Back: Present: Normal Inspection Upper Extremity: Present: Normal Inspection. No: Cyanosis, Edema Lower Extremity: Present: Normal Inspection. No: Edema Neurological: Present: GCS=15, CN II-XII Intact, Speech Normal Skin: Present: Warm, Dry, Normal Color. No: Rashes Psychiatric: Present: Alert, Oriented x 3, Normal Insight, Normal Concentration <Marsha Wooten - Last Filed: 08/26/16 19:16> Medical Decision Making <Meek Barr - Last Filed: 08/26/16 12:54> - EKG Interpretation Interpreted by ED Physician: Yes Type: 12 lead EKG <JeMarsha - Last Filed: 08/26/16 19:16> <Alberto Marroquin - Last Filed: 08/27/16 05:08> ED Course and Treatment: 08/26/16 07:00 Patient signed out to me by Dr. Marroquin pending final disposition. 08/26/16 12:54 Dr. Maldonado at bedside, accepts patient (Meek Barr) 08/26/16 06:16 Impression: 80 yo AA F with PMH of a. fib, GI bleed, HTN, Anxiety, history of renal cancer/ mass s/p R nephrectomy, sciatica, hypercholesterolemia presented with SOB. differential diagnoses include but not limited to: - CHF exacerbation, PNE Plan - O2 - cbc, cmp - cardiac iso, bnp - cxr - ekg - EKG showed rate 92 bpm, a. flutter with RBBB, and left anterior fascicular block, unchanged from previous EKG. (JeMarsha) Patient Seen With Resident: In agreement with resident note which contains more details about the patient. Patient was seen and evaluated with resident. Came up with plan and treatment together. 08/26/16 06:32 (Alberto Marroquin) - Lab Interpretations Lab Results: 08/26/16 06:45 08/26/16 07:05 Lab Results 08/26/16 07:05: Iron 26 L, TIBC 296, % Saturation 9 L 08/26/16 07:05: Free T4 1.63, Thyroxine (T4) 11.0, Total T3 1.24, TSH 3rd Generation 0.56 08/26/16 07:05: Ferritin 540.0, Vitamin B12 411 08/26/16 07:05: Procalcitonin 0.18 L 08/26/16 07:05: Digoxin 1.1 08/26/16 07:05: Sodium 136, Potassium 4.2, Chloride 104, Carbon Dioxide 25, Anion Gap 11, BUN 20, Creatinine 1.4, Est GFR ( Amer) 44, Est GFR (Non- Af Amer) 36, Random Glucose 111 H, Calcium 9.1, Total Bilirubin 0.7, AST 41 H, ALT 44, Alkaline Phosphatase 126, Lactate Dehydrogenase 620, Total Creatine Kinase 43, Troponin I 0.06, NT-Pro-B Natriuret Pep 5030 H, Total Protein 7.2, Albumin 3.2, Globulin 4.0, Albumin/Globulin Ratio 0.8 L 08/26/16 06:45: WBC 7.5, RBC 3.80, Hgb 9.6 L, Hct 30.7 L, MCV 80.8, MCH 25.3, MCHC 31.3, RDW 28.6 H, Plt Count 379, MPV 9.3, Neutrophils % (Manual) 81 H, Lymphocytes % (Manual) 14 L, Monocytes % (Manual) 4, Eosinophils % (Manual) 1, Platelet Evaluation Normal, Hypochromasia 1+, Poikilocytosis (manual Slight, Anisocytosis (manual) 1+, Microcytosis (manual) 1+, Tear Drop Cells Slight, Ovalocytes Slight, [place] Cells Slight 08/26/16 06:20: Urine Color Yellow, Urine Appearance Sl cloudy, Urine pH 6.0, Ur Specific [place] 1.015, Urine Protein 100 H, Urine Glucose (UA) Negative, Urine Ketones Negative, Urine Blood Small H, Urine Nitrate Negative, Urine Bilirubin Negative, Urine Urobilinogen 0.2, Ur Leukocyte Esterase Small H, Urine RBC 1 - 3, Urine WBC 1 - 3, Ur Epithelial Cells 1 - 3, Urine Bacteria Few - RAD Interpretation Radiology Orders: 08/26/16 06:04 CHEST PORTABLE [RAD] Stat - EKG Interpretation EKG Interpretation (Text): 08/26/16 06:20 rate 92 bpm a. flutter with RBBB, and left anterior fascicular block, unchanged from previous EKG. (Je,Marsha) - Medication Orders Current Medication Orders: Atorvastatin Calcium (Lipitor) 20 mg PO DAILY [facility] Last Admin: 08/26/16 10:52 Dose: 20 mg Digoxin (Lanoxin) 0.125 mg PO DAILY [facility] Last Admin: 08/26/16 10:51 Dose: 0.125 mg Donepezil HCl (Aricept) 10 mg PO HS [facility] Last Admin: 08/26/16 21:26 Dose: Not Given Non-Admin Reason: Patient Refused Ferrous Gluconate (Fergon) 324 mg PO TID [facility] Last Admin: 08/26/16 18:21 Dose: 324 mg Furosemide (Lasix) 20 mg PO DAILY [facility] Ceftriaxone Sodium (Rocephin 1 Gram Ivpb) 1 gm in 100 mls @ 100 mls/hr IVPB DAILY [facility] PRN Reason: Protocol Last Admin: 08/26/16 21:02 Dose: 100 mls/hr Metoprolol Tartrate (Lopressor) 50 mg PO BID [facility] Last Admin: 08/26/16 18:21 Dose: 50 mg Oxycodone HCl (Oxycodone Immediate Release Tab) 5 mg PO Q6H PRN PRN Reason: Pain, severe (8-10) Last Admin: 08/26/16 23:47 Dose: 5 mg Pantoprazole Sodium (Protonix Ec Tab) 40 mg PO DAILY [facility] Last Admin: 08/26/16 10:51 Dose: 40 mg Tramadol HCl (Ultram) 50 mg PO TID PRN PRN Reason: Pain, moderate (4-7) Last Admin: 08/26/16 19:24 Dose: 50 mg Discontinued Medications Furosemide (Lasix) 20 mg IVP ONCE ONE Stop: 08/26/16 06:19 Last Admin: 08/26/16 09:28 Dose: 20 mg Pneumococcal Polyvalent Vaccine (Pneumovax 23 Vaccine) 0.5 ml IM .ONCE ONE Stop: 08/26/16 13:43 Last Admin: 08/26/16 15:04 Dose: - PA / GROCERY BU[employer]ER / Resident Statement KRISTINA has reviewed & agrees with the documentation as recorded. KRISTINA has examined the patient and agrees with the treatment plan. <Alberto Marroquin - Last Filed: 08/27/16 05:08> Disposition/Present on Arrival <Meek Barr - Last Filed: 08/26/16 12:54> - Present on Arrival Any Indicators Present on Arrival: No History of DVT/PE: No History of Uncontrolled Diabetes: No Urinary Catheter: No History of Decub. Ulcer: No History Surgical Site Infection Following: None - Disposition Have Diagnosis and Disposition been Completed?: Yes Disposition Time: 07:00 Patient Plan: Admission <Marsha Wooten - Last Filed: 08/26/16 19:16> - Present on Arrival Any Indicators Present on Arrival: No - Disposition Have Diagnosis and Disposition been Completed?: Yes <Alberto Marroquin - Last Filed: 08/27/16 05:08> - Disposition Diagnosis: CHF exacerbation Disposition: HOSPITALIZED Patient Problems: Current Active Problems Problem Status Onset CHF exacerbation Acute Condition: FAIR
[2016-08-26 06:35] LABS: URINE BILIRUBIN NEGATIVE (NEGATIVE); URINE BLOOD SMALL (NEGATIVE); URINE GLUCOSE (UA) NEGATIVE (NEGATIVE); URINE KETONE NEGATIVE (NEGATIVE); URINE LEUKOCYTE ESTERASE SMALL Leu/uL (NEGATIVE); URINE PROTEIN 100 mg/dL (<30 mg/dL); URINE UROBILINOGEN 0.2 E.U./dL (<1 E.U./dL)
[2016-08-26 06:39] LABS: URINE APPEARANCE SL CLOUDY (CLEAR); URINE COLOR YELLOW (YELLOW)
[2016-08-26 06:55] LABS: HEMATOCRIT 30.7 % (36.0-48.0); MEAN CELL VOLUME 80.8 fL (80.0-105.0); MEAN CORPUSCULAR HEMOGLOBIN 25.3 pg (25.0-35.0); MEAN CORPUSCULAR HGB CONC 31.3 g/dl (31.0-37.0); MEAN PLATELET VOLUME 9.3 fl (7.0-11.0); PLATELET COUNT 379 10^3/uL (120.0-450.0); RED CELL DISTRIBUTION WIDTH 28.6 % (11.5-14.5); WHITE BLOOD COUNT 7.5 10^3/ul (4.5-11.0)
[2016-08-26 06:58] LABS: URINE BACTERIA FEW (NEG)
[2016-08-26 07:01] LABS: ADD MANUAL DIFF? YES
[2016-08-26 08:01] LABS: ALB/GLOB RATIO 0.8 (1.1-1.8); BILIRUBIN,TOTAL 0.7 mg/dL (0.2-1.3); CALCIUM 9.1 mg/dL (8.4-10.5); POTASSIUM 4.2 mmol/L (3.6-5.0); TOTAL PROTEIN 7.2 g/dL (5.8-8.3)
[2016-08-26 08:13] LABS: TROPONIN I 0.06 ng/mL
[2016-08-26 08:33] LABS: NEUTROPHIL 81 % (50.0-70.0)
[2016-08-26 08:34] LABS: ANISOCYTOSIS 1+; EOSINOPHIL 1 % (0.0-3.0); HYPOCHROMIA 1+; MICROCYTOSIS 1+; PLATELET ESTIMATE NORMAL (NORMAL); TEAR DROP CELLS SLIGHT
[2016-08-26 08:35] LABS: BURR CELLS SLIGHT; OVALOCYTES SLIGHT; POIKILOCYTOSIS SLIGHT
[2016-08-26 09:40] LABS: INR 2.18 (0.93-1.08); PARTIAL THROMBOPLASTIN TIME 40.1 Seconds (23.7-30.8)
--- NOTE | 2016-08-26 09:41 | RAD ---
HISTORY: Shortness of breath COMPARISON: 08/09/2016. FINDINGS: LUNGS: The lungs are hyperinflated and there is peribronchial thickening with chronic changes in both lungs. . There is no focal consolidation. There is bibasilar subsegmental atelectasis, more confluent on the left. There is mild pulmonary venous congestion. PLEURA: No significant pleural effusion identified, no pneumothorax apparent. CARDIOVASCULAR: There is persistent moderate cardiomegaly. OSSEOUS STRUCTURES: Arch. VISUALIZED UPPER ABDOMEN: Normal. OTHER FINDINGS: None. IMPRESSION: 1. Persistent moderate cardiomegaly and mild pulmonary venous congestion 2. COPD. Bibasilar atelectasis, more confluent on the left. Left lower lobe pneumonia cannot be excluded. Follow-up is advised.
[2016-08-26] MEDS: Digoxin 125 mcg (0.125 mg) Tab PO SCH (10:51)
[2016-08-26] MEDS: Pantoprazole 40 mg EC Tab PO SCH (10:51)
[2016-08-26 11:42] LABS: IRON 26 ug/dL (45-180)
[2016-08-26 11:54] LABS: FREE T4 1.63 ng/dL (0.78-2.19)
[2016-08-26 12:07] LABS: T3 1.24 ng/mL (0.97-1.69); THYROID STIMULATING HORMONE 0.56 mIU/mL (0.46-4.68)
--- NOTE | 2016-08-26 13:02 | US ---
PROCEDURE: Bilateral lower extremity venous duplex Doppler. HISTORY: tachypnic, short of breath, r/o DVT COMPARISON: None available. TECHNIQUE: Bilateral common femoral, superficial femoral, popliteal and posterior tibial veins were evaluated. Flow was assessed with color Doppler, compressibility, assessment of phasic flow and augmentation response. FINDINGS: COMMON FEMORAL VEIN: Right CFV: Unremarkable. Left CFV: Unremarkable. SUPERFICIAL FEMORAL VEIN: Right SFV: Unremarkable. Left SFV: Unremarkable. POPLITEAL VEIN: Right Popliteal: Unremarkable. Left Popliteal: Unremarkable. POSTERIOR TIBIAL VEIN: Right PTV: Unremarkable. Left PTV: Unremarkable. OTHER FINDINGS: None. IMPRESSION: No evidence of deep venous thrombosis.
[2016-08-26 13:42] VITALS: BMI 23.3
[2016-08-26] MEDS ORDERED: Pneumococcal 23-Valent Vaccine IM ONE (13:42)
--- NOTE | 2016-08-26 15:29 | CARD ---
APPROVED REPORT EKG Measurement Heart [id number] <Conclusion> Atrial flutter with variable AV block with premature ventricular or aberrantly conducted complexes Right bundle branch block Left anterior fascicular block Bifascicular block Left ventricular hypertrophy with repolarization abnormality Cannot rule out Septal infarct, age undetermined Abnormal ECG
--- NOTE | 2016-08-26 18:15 | CP.PCM.HP ---
History of Present Illness - History of Present Illness History of Present Illness: Internal Medicine H&P for Dr. Akins/Dr. Maldonado service (covering for Dr. Crum) . CC: shortness of breath HPI: This is an 80 yo AA F with PMH of HTN, Anxiety, history of renal cancer/ mass s/p R nephrectomy, sciatica, hypercholesterolemia, prior tobacco use history, and atrial fibrillation who was just discharged from [facility] after syncopal episode 2/2 blood loss anemia who represents to [facility] ED this AM with complaints of shortness of breath. As per ED staff, patient desatted on room air to mid 80's, but corrected to normal with supplemental O2. Patient has poor insight into condition and is demented as baseline (AAOx2, self and location only), so ROS and history limited. She denies shortness of breath, chest pain, weakness, syncopal/near-syncopal episode, or other complaints. Per ED charting the SOB began overnight after discharge, and persisted today, improved when sitting up. Her BNP on arrival was 5030 (2050 on 08/10). Of note, during last admission, patient was unable to be restarted on her anticoagulation (coumadin) due to recurrence of rectal bleeding both times restarting anticoagulation was attempted. IVC filter was not placed as per IR, instead anticoagulation was held (last dose of coumadin on 08/22, given 2 doses of vitamin K then) and patient was instructed not to resume on discharge. However, her INR today in the ED was 2.18 (was 1.26 on 08/23). PMH: as above PSH: R-Nephrectomy SHx: Prior tobacco use (as per charting, pt has no recall of tobacco use), denies EtOH/illicits FHx: CAD/NE as per ED charting (patient does not recall) PMD: Dr. Crum Present on Admission - Present on Admission Any Indicators Present on Admission: No History of DVT/PE: No History of Uncontrolled Diabetes: No Review of Systems - Review of Systems Systems not reviewed;Unavailable: Other (patient with some dementia, has no recall of symptoms or reason for presentation) Past Patient History - Infectious Disease Hx of Infectious Diseases: None - Tetanus Immunizations Tetanus Immunization: >10 years Ago - Past Medical History & Family History Past Medical History?: Yes - Past Social History Smoking Status: Former Smoker - CARDIAC Hx Cardiac Disorders: Yes Hx Cardia Arrhythmia: Yes Hx Congestive Heart Failure: Yes Hx Hypercholesterolemia: Yes Hx Hypertension: Yes - PULMONARY Hx Respiratory Disorders: No - NEUROLOGICAL Hx Neurological Disorder: Yes (syncope) HX Cerebrovascular Accident: Yes (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 r nephrectomy dr young) Hx Chemotherapy: (uncertain) - INTEGUMENTARY Hx Dermatological Problems: Yes Other/Comment: discolored dry skin ble - MUSCULOSKELETAL/RHEUMATOLOGICAL Hx Arthritis: Yes Hx Back Pain: Yes (sciatica) Hx Falls: Yes (past) Hx Unsteady Gait: Yes - GASTROINTESTINAL Hx Gastrointestinal Disorders: Yes (gi bleed) Hx Gastroesophageal Reflux: Yes Other/Comment: colonoscopy 08/14/16 dx redundant colon, diverticulosis, antral ulcer, avm colon - GENITOURINARY/GYNECOLOGICAL Hx Genitourinary Disorders: No - PSYCHIATRIC Hx Psychophysiologic Disorder: Yes Hx Anxiety: Yes - SURGICAL HISTORY Other/Comment: Right nephrectomy - ANESTHESIA Hx Anesthesia Reactions: No Hx Malignant Hyperthermia: No Meds Allergies/Adverse Reactions: Allergies Allergy/AdvReac Type Severity Reaction Status Date / Time No Known Allergies Allergy Verified 08/19/16 23:01 Physical Exam - Constitutional Appears: Well, Non-toxic, No Acute Distress, Other (Resting comfortably in bed) - Additional Findings Additional findings: - Head Exam Head Exam: ATRAUMATIC, NORMAL INSPECTION, NORMOCEPHALIC - Eye Exam Eye Exam: EOMI, Normal appearance. absent: Conjunctival injection, Scleral icterus Pupil Exam: absent: Irregular, Unequal - ENT Exam ENT Exam: Mucous Membranes Moist. absent: Mucous Membranes Dry - Neck Exam Neck exam: Normal Inspection - Respiratory Exam Respiratory Exam: Clear to PA & Lateral, Normal breathing pattern at rest but unable to take full deep breaths when instructed for ausculatation, Wearing NC at 2L. absent: Rales, Rhonchi, Wheezes, Respiratory Distress, [place] Cyanosis, Tachypnea - Cardiovascular Exam Cardiovascular Exam: REGULAR RHYTHM, RRR, +S1, +S2. absent: Bradycardia, Tachycardia, Irregular Rhythm, +S4 - GI/Abdominal Exam GI & Abdominal Exam: Normal Bowel Sounds, Soft, Unremarkable. absent: Diminished Bowel Sounds, Distended, Firm, Hyperactive Bowel Sounds, Hypoactive Bowel Sounds, Rigid, Tenderness - Extremities Exam Extremities Exam: No calf tenderness/pedal edema/erythema bilaterally, +1 dorsalis pedis pulses bilaterally, +2 radial pulses bilaterally - Neurological Exam Neurological Exam: Awake and alert, oriented to self and location but not to year, moving all extremities spontaneously - Psychiatric Exam Psychiatric exam: Normal Affect, Normal Mood, high functioning dementia (not oriented to year, but knows to check the paper to see the date) - Skin Skin Exam: Dry, Intact, Normal Color (some chronic age-related skin changes in bilateral lower extremities), Warm Results - Vital Signs Recent Vital Signs: Last Vital Signs Temp 98.7 F 08/26/16 13:19 Pulse 83 08/26/16 13:19 Resp 16 08/26/16 13:19 BP 136/78 08/26/16 13:19 Pulse Ox 92 L 08/26/16 10:55 - Labs Result Diagrams: 08/26/16 06:45 08/26/16 07:05 Labs: Laboratory Results - last 24 hr 08/26/16 08/26/16 09:00 09:22 PT 23.5 H INR 2.18 H APTT 40.1 H D-Dimer, Quantitative 0.97 H Assessment & Plan - Assessment and Plan (Free Text) Assessment: This is an 80 yo AA F with PMH of HTN, Anxiety, history of renal cancer/mass s/ p R nephrectomy, sciatica, hypercholesterolemia, prior tobacco use history, and atrial fibrillation who was just discharged from [facility] after syncopal episode 2/2 blood loss anemia who represents to [facility] ED this AM with complaints of shortness of breath. Plan: 1) Dyspnea with O2 desaturation on room air -unclear etiology, PE vs 2/2 anemia vs deconditioning vs hypovolemia/ hypotension vs CHF vs COPD vs infectious etiology -Patient previously on anticoagulation for afib/aflutter, but stopped during last admission due to persisting bleed on AC, last dose of coumadin (7.5mg) on , got 2x doses of Vitamin K 5mg after. INR on 08/23 1.28, INR in ED today 2.18; repeat coags in AM and f/u, risk of patient taking meds from home supply despite instructions otherwise -BP in ED on arrival 103/66, but improved to 145/75 within 1 hour, remains 130's -140's/70's since admission -Hgb stable, was 9.6 in ED, 9.1 on 08/24 (last check in TCU) -Unclear tobacco history, reported in prior charting as tobacco history, not active user, but patient has no recall regarding tobacco use -D-dimer 0.97 -Trop #1 0.06, two more trending q8 -EKG shows aflutter with variable AV block, RBBB, Left anterior fasicular block ; when compared to EKG 08/09/16, appears unchanged -Echo on 08/13/16: LVEF 73%, mod-severe LVH, Mild MR, Mod TR, Severe Pulm HTN, moderate LA and RA dilation, no wall motion abnormalities reported -LE Duplex obtained, negative for DVT -Given R-nephrectomy and Cr 1.4 in ED (was 1.3 at last check in TCU), would seek to avoid contrast exposure, but patient's breathing pattern currently suggests she would not be able to have reliable V/Q scan, and given elevated BNP (>5000) concerned about trying to prehydrate before IV contrast study; patient is hemodynamically stable and satting well on 2L NC so not emergent, will defer to Pulm for appropriate scan -Pulm (Dr. Smith) consulted, appreciate all recs -Cardio (Dr. Fonseca) consulted, appreciate all recs -continue home lasix, got 1x 20mg IV Lasix in the ED -Continue supplemental O2 as needed, maintain SaO2 > 90% -ABG in AM, f/u -6 minute walk test with pulse ox ordered -Urine notable for small leuk esterase, no white count and afebrile, but will cover empirically with rocephin, blood/urine cultures and procal ordered -Continue home Metoprolol, Digoxin, Iron -Iron and thyroid panels ordered, B12/folate levels ordered 2) Dementia -continue aricept 3) HTN -continue metoprolol and lasix 4) Anemia -appears stable, continue to monitor -no indication to transfuse at this time, type and cross ordered in case of bleed -stool occult ordered 5) HLD -continue statin Dispo: Telemetry obs, pending Cardio and Pulm input FEN: Heart-healthy diet Access: Peripheral IV Consults: Pulm and Cardio Ppx: Protonix covers GI, SCDs for DVT (avoid AC given recurrent bleeds) Patient seen, reviewed, and discussed with attending, Dr. Maldonado. - Date & Time Date: 08/26/16 Time: 09:00 Decision To Admit - Pt Status Changed To: Hospital Disposition Of: Observation - . Bed Request Type: Telemetry
[2016-08-26] MEDS: cefTRIAXone 1 gm 1 GM/100 ML BAG IVPB SCH (21:02)
[2016-08-26] MEDS: oxyCODONE 5 mg Immediate Release Tab PO PRN (23:47)
[2016-08-27 03:25] LABS: ADD MANUAL DIFF? NO
[2016-08-27 03:32] LABS: BASO # 0.06 K/mm3 (0.0-2.0); EOS # 0.2 (0.0-0.7); EOS % 3.6 % (1.5-5.0); GRAN # 4.17 (1.4-6.5); GRAN % 71.4 % (50.0-68.0); HEMATOCRIT 31.1 % (36.0-48.0); LYMPH % 16.8 % (22.0-35.0); MEAN CORPUSCULAR HEMOGLOBIN 25.3 pg (25.0-35.0); MEAN CORPUSCULAR HGB CONC 31.2 g/dl (31.0-37.0); MEAN PLATELET VOLUME 8.3 fl (7.0-11.0); MONO # 0.4 (0.1-0.6); MONO % 7.2 % (1.0-6.0); PLATELET COUNT 446 10^3/uL (120.0-450.0); RED CELL DISTRIBUTION WIDTH 28.5 % (11.5-14.5); WHITE BLOOD COUNT 5.8 10^3/ul (4.5-11.0)
[2016-08-27 03:37] LABS: ALB/GLOB RATIO 0.8 (1.1-1.8); BILIRUBIN,TOTAL 0.7 mg/dL (0.2-1.3); CALCIUM 9.2 mg/dL (8.4-10.5); MAGNESIUM 1.7 mg/dL (1.7-2.2); PHOSPHOROUS 3.1 mg/dL (2.5-4.5); POTASSIUM 4.3 mmol/L (3.6-5.0); TOTAL PROTEIN 7.7 g/dL (5.8-8.3)
[2016-08-27 03:48] LABS: TROPONIN I 0.06 ng/mL
[2016-08-27 05:48] LABS: ARTERIAL BLOOD GAS HCO3 28.5 mmol/L (21-28); ARTERIAL BLOOD GAS O2 CAPACITY 18.3 mL/dl (16-24); ARTERIAL BLOOD GAS O2 CONTENT 18.1 ML/dl (15-23); ARTERIAL BLOOD HGB O2 SAT 95.9 % (95.0-98.0); HHB 0.9 % (0-5); METHEMOGLOBIN 1.2 % (0.0-3.0)
[2016-08-27] MEDS: oxyCODONE 5 mg Immediate Release Tab PO PRN ×3 (07:40→21:32)
[2016-08-27] MEDS: cefTRIAXone 1 gm 1 GM/100 ML BAG IVPB SCH (09:15)
[2016-08-27] MEDS: Digoxin 125 mcg (0.125 mg) Tab PO SCH (09:15)
[2016-08-27] MEDS: Pantoprazole 40 mg EC Tab PO SCH (09:15)
--- NOTE | 2016-08-27 09:32 | CON ---
DATE: 08/27/2016 PULMONARY CONSULTATION We were asked by Dr. Akins, radiation control health physicist, to evaluate and treat this 80-year- old female who was admitted with complaint of chest pain and chest tightness. The patient underwent chest x-ray, CT scan of chest, and extremity ultrasound. HISTORY OF PRESENT ILLNESS: The patient with known history of smoking, history of renal cell cancer, history of hypertension, anxiety, nephrectomy, and atrial fibrillation. She was discharged from [facility] after syncopal episode a few months ago. She came to Emergency Room with complaints of shortness of breath. Her oxygen saturation on admission was in the mid 80s. She denied cough. Denied sputum production. Complains of shortness of breath and weakness. Also reported a history of problems with anticoagulation due to bleeding. SOCIAL HISTORY: Prior tobacco use. No alcohol, no drugs. FAMILY HISTORY: Negative for inherited diseases. PAST MEDICAL HISTORY: As above. REVIEW OF SYSTEMS: Conducted by reviewing all sources. GENERAL: No fever. Positive fatigue. RESPIRATORY: Positive for shortness of breath. CARDIOVASCULAR: Positive for atrial fibrillation. RENAL: Positive for nephrectomy due to kidney cancer. GASTROINTESTINAL: Where there is a history of recurrent GI bleeding. SKIN: No rashes. Dry; intact NEUROLOGIC: No memory loss All other systems negative ALLERGIES: No known allergies. PHYSICAL EXAMINATION: GENERAL: She is awake, alert, in no acute distress. HEAD, EARS, NOSE, AND THROAT: Atraumatic and normocephalic. NECK: Supple with no jugular vein distention. CARDIOVASCULAR: Irregular. HEART: S1, S2. PULMONARY: Clear to auscultation. Few basilar rhonchi. No wheezes. GASTROINTESTINAL: Soft, nontender. No organomegaly. EXTREMITIES: No pedal edema. SKIN: No acute skin rashes. NEUROLOGIC: Limited at the present time. VITAL SIGNS: Temperature 98, pulse 83, respirations 16, blood pressure 130/70. Pulse oximetry is 92. ASSESSMENT AND PLAN: The patient had a chest x-ray, which was nonrevealing - negative for congestive heart failure or infiltrates. CT scan is being done right now. I will review the CT scan of the chest when available and advise. In the interim, the patient was started on appropriate bronchodilator, nasal oxygen, and antibiotics. ASSESSMENT: 1. Hypoxia. 2. Rule out chronic obstructive pulmonary disease. 3. Low probability of pulmonary emboli. Advised to continue with current medical therapy, and review the latest labs and CT scan of chest. There is no report on the chart. Will continue with pulmonary intervention. Driss Alas MD cc: [id number] TT: 08/27/2016 09:31:19 Confirmation # [id number] Dictation # [id number] [id number]
--- NOTE | 2016-08-27 10:38 | PN ---
DATE: 08/27/2016 CARDIOLOGY FOLLOWUP The patient was transferred from the TCU for dyspnea. PAST MEDICAL HISTORY: Notable for history of chronic atrial fibrillation, Clostridium difficile diar lizzie, which was treated with gastric fecal transplant. The patient's Lasix was decreased because of her diarrhea and prerenal azotemia, which are now improv ed. Her cardiac workup, during this admission, reveals an echocardiogram that shows an ejection fraction of 73%. There is severe pulmonary hypertension noted. Her proBNP was elevated. PHYSICAL EXAMINATION: VITAL SIGNS: Blood pressure is 127/88. The heart rate is in the 70s, atrial fibrillation. NECK: Negative JVD. LUNGS: Decreased breath sounds. HEART: Revealed S1, S2. EXTREMITIES: Without edema. LABORATORIES: Noted. IMPRESSION: 1. Mild congestive heart failure. 2. Normal left ventricular function. 3. Chronic atrial fibrillation. 4. Severe pulmonary hypertension. PLAN: Given these findings, we will give a trial of IV Lasix for the next day or 2. Need to rule ou t exacerbation of COPD. Oswald Fonseca MD cc: [id number] TT: 08/27/2016 10:38:05 Confirmation # [id number] Dictation # [id number] amisha
[2016-08-27] MEDS: Nystatin 100,000 Units/gm Topical Pow(15 gm) TOP SCH ×2 (10:40→17:21)
--- NOTE | 2016-08-27 11:48 | RAD ---
HISTORY: shortness of breath COMPARISON: 08/26/2016 FINDINGS: LUNGS: There is mild pulmonary venous congestion. There is no focal consolidation. PLEURA: Suspect small right pleural effusion. No significant left pleural effusion identified, no pneumothorax apparent. CARDIOVASCULAR: The heart is enlarged. There is interval prominence of the aortic arch and a aortic arch calcification appears positioned more medially. OSSEOUS STRUCTURES: No significant abnormalities. VISUALIZED UPPER ABDOMEN: Normal. OTHER FINDINGS: None. IMPRESSION: Interval prominence of the aortic arch with medial position of the aortic arch calcification. Aortic aneurysm/dissection cannot be entirely excluded. If there is a clinical concern, a CT angiogram of the aorta may be performed for further evaluation. Persistent mild cardiomegaly, pulmonary venous congestion and right pleural effusion. Findings were discussed with nurse Rose on 08/27/2016 at 11:40 a.m.
--- NOTE | 2016-08-27 12:18 | CON ---
DATE: 08/27/2016 GI CONSULT Seen and examined at the bedside earlier this morning. REQUEST FOR CONSULT: For history of GI bleed with anticoagulation. HISTORY OF PRESENT ILLNESS: This is an 80-year-old female with a past medical history of renal cell carcinoma status post nephrectomy, history of atrial fibrillation, angiodysplasia, and peptic ulcer ankush fernández, was recently discharged from [facility], originally admitted for a syncopal episode secondary to blood loss from anemia. During her hospital stay, the patient underwent and was found to have low hemoglobin, was guaiac posi tive with a history of atrial fibrillation on Coumadin. She was guaiac positive, and underwent an en doscopy and a colonoscopy on 08/14/2016. On colonoscopy, she was found to have angioectasia in the hepatic flexure, as well as angioectasia in the ascending colon. This had multiple hairline patchy angioectasia and not amenable for endo thera py. On endoscopy, she was found to have a few nonbleeding gastric ulcers, and she was restarted on her an ticoagulants, but there was concern of falls and compliance, also risks of recurrent bleeding. So th e patient's Coumadin was not restarted. Her hemoglobin did remain stable. Even after discharge, no complaints of any melena or bright red blood. The patient comes to the Emergency Room at this time with complaints of shortness of breath. In the Emergency Room, her O2 saturation was noted to be in the 80s. She was given O2 with relief. The patient denies any nausea, vomiting, any hematemesis or bleeding per rectum. No complaints of ab dominal pain. PAST MEDICAL HISTORY: As stated above, history of renal cell carcinoma status post nephrectomy, hist ory of chronic kidney disease, peptic ulcer disease, angiodysplasia, cardiomyopathy, hypertension, pu lmonary hypertension. SURGICAL HISTORY: As stated above, she had a right nephrectomy - the patient history of gallstones. SOCIAL HISTORY: The patient was a former smoker. Denies ETOH or drug use. FAMILY HISTORY: Noncontributory at this time. ALLERGIES: No known drug allergies. REVIEW OF SYSTEMS: Systems reviewed with positive findings, see HPI. VITAL SIGNS: Temperature is 98.0, blood pressure 127/88, pulse 77, respirations 18, 100% on room air . LABORATORY DATA: Today, WBC is 5.8. The hemoglobin is 9.7; on admission, it was 9.6. Hematocrit 31 .1, platelets of 446. PT on admission on 08/26 is 2____.5. INR is 2.18. PTT is 40.1. D-dimer was 0.97. Sodium 138, K 4.3. BUN 22. Creatinine is 1.4. Total bilirubin 0.7, AST 37, ALT 47. Alk phos is 12 8. Troponin is negative x 2. The patient had digoxin level drawn; it was 1.1. DIAGNOSTICS: She had a chest x-ray, and that showed persistent moderate cardiomegaly, persistent mod erate cardiomegaly and mild pulmonary venous congestion, COPD, bibasilar atelectasis. Left lower lob e pneumonia cannot be excluded. Extremity ultrasound: No evidence of DVT. The patient did have a CT scan of the chest, and that report is pending. PHYSICAL EXAMINATION: HEENT: Sclerae are anicteric. NECK: Supple. CARDIAC: S1, S2. LUNGS: Lung sounds with decreased breath sounds at the bases, but good air entry. No rales or wheez e. ABDOMEN: With bowel sounds, soft, not distended, nontender on palpation. No rebound, guarding, or o rganomegaly. NEUROLOGIC: Awake, alert, oriented. ASSESSMENT: This is an 80-year-old female with history of renal cancer/mass status post right nephre ctomy, atrial fibrillation, hypertension, anemia, status post recent EGD, colonoscopy with peptic ulc er disease and angiodysplasia, recently released from [facility] post-syncopal episod e secondary to anemia. The patient returns back to the Emergency Room with complaints of shortness o f breath. Rule out any pulmonary embolus, her chest CT result is pending. The patient is not in any respiratory distress now. She does have history of atrial fibrillation rule out congestive heart fa ilure versus chronic obstructive pulmonary disease, anemia, although her hemoglobin and hematocrit stroud ve been stable. No overt gastrointestinal bleed. History of cardiomyopathy, hypertension, chronic k idney disease, and pulmonary hypertension. PLAN: Continue to monitor her H and H. The patient remains on iron supplements. Continue PPI on Pro tonix daily, and follow up CT scan of the chest, as per cardiology, pulmonary. Thank you for this consult and for allowing us to participate in your patient's care. We will make f nikita recommendations based upon the patient's clinical course. The patient was seen and case discu ssed with Dr. Gaytan. Elyse BORRERO cc: [id number] TT: 08/27/2016 12:17:45 Confirmation # [id number] Dictation # [id number] amisha
--- NOTE | 2016-08-27 12:49 | CP.PCM.PN ---
Subjective - Date & Time of Evaluation Date of Evaluation: 08/27/16 Time of Evaluation: 07:15 - Subjective Subjective: Internal Medicine Progress Note for Dr. Akins/Dr. Maldonado service Patient seen and examined at bedside. Today is hospital day 2. Denies any complaints today, remains pleasantly disoriented today (oriented to self and location, not to time). Per discussion with vp digital marketing social media and crm/case management, some local family sees patient regularly in the week, but not every day. They state patient makes her own decisions; they have no role in her healthcare. Patient adamantly refusing any temporary or long-term care placement, but continues to have poor understanding/insight into her conditions and health status. Addendum: CXR today reviewed by radiology, and in comparison to yesterday's CXR , is concerning for possible Aortic arch dissection. After discussion with Nephrology, patient to receive CTA to assess for dissection despite single kidney with Cr of 1.4, as this is an emergent situation. Nephrology to follow. Objective - Vital Signs/Intake and Output Vital Signs (last 24 hours): Temp Pulse Resp BP Pulse Ox 97.4 F L 77 18 129/73 95 08/27/16 12:00 08/27/16 12:00 08/27/16 12:00 08/27/16 12:00 08/27/16 11:09 Intake and Output: 08/27/16 08/27/16 06:59 18:59 Intake Total 120 Output Total 100 Balance 20 - Medications Medications: Current Medications Atorvastatin Calcium (Lipitor) 20 mg PO DAILY [facility] Last Admin: 08/27/16 09:15 Dose: 20 mg Digoxin (Lanoxin) 0.125 mg PO DAILY [facility] Last Admin: 08/27/16 09:15 Dose: 0.125 mg Donepezil HCl (Aricept) 10 mg PO HS [facility] Last Admin: 08/26/16 21:26 Dose: Not Given Ferrous Gluconate (Fergon) 324 mg PO TID [facility] Last Admin: 08/27/16 09:15 Dose: 324 mg Furosemide (Lasix) 40 mg IVP DAILY [facility] Last Admin: 08/27/16 11:00 Dose: 40 mg Ceftriaxone Sodium (Rocephin 1 Gram Ivpb) 1 gm in 100 mls @ 100 mls/hr IVPB DAILY [facility] PRN Reason: Protocol Last Admin: 08/27/16 09:15 Dose: 100 mls/hr Metoprolol Tartrate (Lopressor) 50 mg PO BID [facility] Last Admin: 08/27/16 09:15 Dose: 50 mg Nystatin (Nystop Topical Powder) 0 gm TOP BID [facility] Last Admin: 08/27/16 10:40 Dose: 1 applic Oxycodone HCl (Oxycodone Immediate Release Tab) 5 mg PO Q6H PRN PRN Reason: Pain, severe (8-10) Last Admin: 08/27/16 07:40 Dose: 5 mg Pantoprazole Sodium (Protonix Ec Tab) 40 mg PO DAILY [facility] Last Admin: 08/27/16 09:15 Dose: 40 mg Tramadol HCl (Ultram) 50 mg PO TID PRN PRN Reason: Pain, moderate (4-7) Last Admin: 08/26/16 19:24 Dose: 50 mg - Labs Labs: 08/27/16 03:20 08/27/16 03:20 PT 23.5 Seconds (9.9-11.8) H 08/26/16 09:00 INR 2.18 (0.93-1.08) H 08/26/16 09:00 APTT 40.1 Seconds (23.7-30.8) H 08/26/16 09:00 - Additional Findings Additional findings: - Constitutional Appears: Well, Non-toxic, No Acute Distress, Other (Resting comfortably in bed) - Head Exam Head Exam: ATRAUMATIC, NORMAL INSPECTION, NORMOCEPHALIC - Eye Exam Eye Exam: EOMI, Normal appearance. absent: Conjunctival injection, Scleral icterus Pupil Exam: absent: Irregular, Unequal - ENT Exam ENT Exam: Mucous Membranes Moist. absent: Mucous Membranes Dry - Neck Exam Neck exam: Normal Inspection - Respiratory Exam Respiratory Exam: Clear to PA & Lateral, Normal breathing pattern at rest but unable to take full deep breaths when instructed for ausculatation, Wearing NC at 2L. absent: Rales, Rhonchi, Wheezes, Respiratory Distress, Naren Cyanosis, Tachypnea - Cardiovascular Exam Cardiovascular Exam: REGULAR RHYTHM, RRR, +S1, +S2. absent: Bradycardia, Tachycardia, Irregular Rhythm, +S4 - GI/Abdominal Exam GI & Abdominal Exam: Normal Bowel Sounds, Soft, Unremarkable. absent: Diminished Bowel Sounds, Distended, Firm, Hyperactive Bowel Sounds, Hypoactive Bowel Sounds, Rigid, Tenderness - Extremities Exam Extremities Exam: No calf tenderness/pedal edema/erythema bilaterally, +1 dorsalis pedis pulses bilaterally, +2 radial pulses bilaterally - Neurological Exam Neurological Exam: Awake and alert, oriented to self and location but not to year, moving all extremities spontaneously - Psychiatric Exam Psychiatric exam: Normal Affect, Normal Mood, Some disorientation (not oriented to year, but knows to check the paper to see the date; poor understanding/ insight into medical conditions), forgetful/confused intermittently, poor historian, possible dementia - Skin Skin Exam: Dry, Intact, Normal Color (some chronic age-related skin changes in bilateral lower extremities), Warm Assessment and Plan - Assessment and Plan (Free Text) Assessment: This is an 80 yo AA F with PMH of HTN, Anxiety, history of renal cancer/mass s/ p R nephrectomy, sciatica, hypercholesterolemia, prior tobacco use history, and atrial fibrillation who was just discharged from [facility] after syncopal episode 2/2 blood loss anemia who represents to [facility] ED this AM with complaints of shortness of breath with desaturations on room air. Plan: 1) Widening aortic arch on CXR -As per radiology, arch widened on CXR today as compared to yesterday -acute concern for possible aortic dissection, radiology recs CTA -Discussed with Nephrology (Dr. Lemon) needing CTA despite R-nephrectomy and persisting Cr of 1.4; as per Nephro, ok to obtain CTA given severity of possible condition, will follow the patient as well -CTA chest/abd/pelvis ordered STAT, will f/u -Currently hemodynamically stable, BP 120's/70's-80s this AM; need to actively avoid BP > 140's if this is dissection, adding PRN hydralazine for SBP > 140 2) Dyspnea with O2 desaturation on room air -unclear etiology, PE vs 2/2 anemia vs deconditioning vs CHF vs COPD vs infectious etiology -Patient previously on anticoagulation for afib/aflutter, but stopped during last admission due to persisting bleed on AC, last dose of coumadin (7.5mg) on , got 2x doses of Vitamin K 5mg after. INR on 08/23 1.28, INR in ED 2.18; coags this AM -Hgb stable, was 9.6 in ED, 9.7 today -As per Family members, former smoker, no use in > 1 year -D-dimer 0.97 -Trops 0.06, 0.05, 0.06 -ED EKG: aflutter with variable AV block, RBBB, Left ant fasicular block; when compared to EKG 08/09/16, appears unchanged; similar EKG today with 4:1 block -Echo on 08/13/16: LVEF 73%, mod-severe LVH, Mild MR, Mod TR, Severe Pulm HTN, moderate LA and RA dilation, no wall motion abnormalities reported -LE Duplex obtained, negative for DVT -Pending CTA due to concern for possible dissection/aneurysm, will f/u -Pulm (Dr. Smith), Cardio (Dr. Fonseca), GI (Dr. Gaytan), and Nephro (Dr. Lemon ) consulted, appreciate all recs -continue home lasix, got 1x 20mg IV Lasix in the ED -Continue supplemental O2 as needed, maintain SaO2 > 90%; AM ABG reviewed, unremarkable -6 minute walk test with pulse ox ordered -Crackles at bases on lung exam, covered with empiric rocephin, if worsening leukocytosis/fevers/saturation will consider adding doxycycline (no zithromax due to borderline prolonged QTc and arrhythmia) -Urine notable for small leuk esterase, continue empiric coverage with rocephin , blood/urine cultures pending, procal 0.18 -Continue home Metoprolol, Digoxin, Iron -Iron and Iron sat low, elevated Ferritin, and elevated RDW, consistent with iron def. anemia -Normal range thyroid panel -B12 normal range, folate pending 3) Dementia -continue aricept -question as to degree of dementia, if patient has capacity for informed medical decision making; Psych consulted (Dr. Rabago), appreciate their recs 4) HTN -continue metoprolol and lasix 5) Anemia -appears stable, continue to monitor -no indication to transfuse at this time, type and screen ordered in case of bleed -stool occult ordered 5) HLD -continue statin Dispo: Telemetry, pending CTA to assess for dissection, pending Pulm input, pending placement FEN: Heart-healthy diet Access: Peripheral IV Consults: Pulm, Cardio, Nephro, Psych Ppx: Protonix covers GI, SCDs for DVT (avoid AC given recurrent bleeds) Patient seen, reviewed, and discussed with attending, Dr. Maldonado.
[2016-08-27 13:40] LABS: INR 1.86 (0.93-1.08)
--- NOTE | 2016-08-27 13:48 | CT ---
PROCEDURE: CT Angiography Chest, Abdomen and Pelvis with and without intravenous contrast HISTORY: r/o aortic dissection COMPARISON: None. TECHNIQUE: Contiguous axial images of the chest, abdomen and pelvis were obtained in the phase of aortic enhancement. A noncontrast enhanced CT of the chest was also obtained to evaluate for possible intramural thrombus. Coronal and sagittal reformats were generated. This CT exam was performed using one or more of the following dose reduction techniques: Automated exposure control, adjustment of the mA and/or kV according to patient size, and/or use of iterative reconstruction technique. Intravenous contrast dose: 150 cc of Omnipaque 300 Radiation dose: Total exam DLP = 912 mGy-cm. FINDINGS: CT ANGIOGRAPHY OF THE CHEST WITH & WITHOUT CONTRAST: AORTA (CHEST AND ABDOMEN): The thoracic and abdominal aorta are unremarkable, without aneurysm, dissection or rupture. No intramural thrombus identified in the thoracic aorta on the non-contrast ct of the chest. The celiac axis, superior mesenteric artery, inferior mesenteric artery and the renal arteries are widely patent. The pelvic arteries are unremarkable. LUNGS: Clear. No nodule, mass or consolidation. MEDIASTINUM: Unremarkable. Normal caliber aorta and pulmonary arterial trunk. No aortic dissection. Normal size heart. LYMPH NODES: Unremarkable. PLEURA: Small bilateral pleural effusions with mild compressive atelectasis at the lung bases. BONES: Unremarkable. OTHER FINDINGS: None. CT ANGIOGRAPHY OF THE ABDOMEN AND PELVIS WITH CONTRAST: LIVER: Unremarkable. No gross lesion or ductal dilatation. GALLBLADDER AND BILE DUCTS: Unremarkable. PANCREAS: Unremarkable. No gross lesion or ductal dilatation. SPLEEN: Unremarkable. ADRENALS: Unremarkable. No mass. KIDNEYS AND URETERS: Unremarkable. No hydronephrosis. No solid mass. VASCULATURE: Unremarkable. No aortic aneurysm. STOMACH AND BOWEL: Unremarkable. No obstruction. No gross mural thickening. APPENDIX: Normal appendix. PERITONEUM: Unremarkable. No free fluid. No free air. LYMPH NODES: Unremarkable. No enlarged lymph nodes. BLADDER: Unremarkable. REPRODUCTIVE: Unremarkable. BONES: No acute fracture. OTHER FINDINGS: None. IMPRESSION: Small bilateral pleural effusions with compressive atelectasis. No aortic dissection or aneurysm.
--- NOTE | 2016-08-27 14:54 | CP.PCM.CON ---
History of Present Illness - History of Present Illness History of Present Illness: Initial Nephrology Consultation: Assessment: Chronic Kidney Disease Stage 3 (N18.3) with ? proteinuria possibly due to HTN, age related decline, and s/p Rt nephrectomy due to hx of RCC Anemia chronic, Hypertension controlled (I12.9) Vit D insufficiency with secondary hyperparathyroidism Hypoxia ? CHF with severe pulmonary HTN (RVSP 81 mm Hg) and moderate to severe LVH hx of dementia Plan She was in need of CTA to r/o dissection and risk of missed diagnosis were grave as compared to risk of contrast nephropathy hence agreed with team to proceed with CTA without prior preventive preparation. Post-procedure IVF would have been ideal but with her CHF and pleural effusion, could be detrimental hence no IVF. consider to hold her lasix 24-48 hrs post CTA. Hypertension control with meds as ordered. lopressor 50 mg bid, prn hydralazine. hold losartan at this time She is already on statin started on vit D supplement 1000 unit/day, iron 324 mg TID ordered spot protein/creatinine and albumin/creatinine ratio Dose meds/antibiotics for reduced GFR ~ 40. Avoid fleets enema/magnesium based laxatives. Avoid nephrotoxins/NSAIDs anemia management as per jazlyn Further work up as per primary team Thanks for allowing me to participate in care of your patient. Will follow patient with you. Please call if any Qs Dr Jt Lemon Office: [phone] Chief Complaint: Shortness of breath Reason for consult: CKD and need for contrast study HPI: Pt is a 80 y/o F with hx of hypertension (20 years) , renal cell cancer s/ p unilateral total nephrectomy, CKD stage 3 with baseline cr 1.4-1.7 since 2017 , anemia, A fib recently admitted with dizziness ? syncope. found to have anemia and got PRBC transfusion and had GI work up with EGD/colonoscopy. she was seen by jazlyn and given IV iron. later she got d/c to rehab and then home. She came with shortness of breath and hypoxia, seen by cardio, pulmonary. has abnormal CXR concerns for aortic aneurysm/dissection and plan for STAT CTA study hence renal consulted since she has CKD and will need contrast exposure. I went to see her but she went for CTA so I evaluated her after she is back from imaging she feels fien now. denies SOB/chest pain/nausea or urinary complaints ROS: Constitutional Symptoms: Denies fever. No chills. No Recent Weight Changes Eyes: denies change in vision, denies watery eyes, denies double vision Ears/Nose/Mouth/Throat: Denies Abnormal Taste. No Bad breath or Bad Taste. Cardiovascular: No chest pain. There is improved shortness of breath. No palpitations. Pulmonary: improved shortness of breath no cough. Gastrointestinal: denies abdominal pain No nausea. No vomiting. Denies change in bowel habits. Denies Bleeding Genitourinary: No Change in force of strain when urinating. No increase in urinary frequency. No pain while urinating. Denies blood in urine. Neurological: Denies headaches. No dizziness. Denies loss of balance. Denies weakness, denies tingling/numbness Dermatological: No Rash or Bruising or ulcers. Psychiatric: Denies Anxiety. No depression. Denies hallucinations. Rheumatological: No joint pain. Denies Joint swelling Endocrine: Denies over tiredness. Denies Fatigue and Heat/Cold Intolerance. Physical Examination: General Appearance: Comfortable, in no acute respiratory distress, co-operative . Vitals reviewed and noted as below Head; Atraumatic, normocephalic ENT: no ulcers no thrush. Tongue is midline. Oropharynx: no rash or ulcers. EYES: Pupils are equal, round and reactive to light accommodation. Eye muscles and extraocular movement intact. Sclera is anicteric. Neck; supple no lymphadenopathy, no thyromegaly or bruit Lungs: Normal respiratory rate/effort. Breath sounds bilateral equal and clear Heart: Normal rate. s1s2 normal. No rub or gallop. Extremities: no edema. No varicose veins Neurological: Patient is alert, awake and oriented but forgetful. No focal deficit. Strength bilateral appropriate and equal Skin: Warm and dry. Normal turgor. No rash. Palpitation: Normal elasticity for age Abdomen: Abdomen is soft. Bowel sounds +. There is no abdominal tenderness, no guarding/rigidity or organomegaly Psych: lack insight and has normal affect/mood MSK: no joint tenderness or swelling. Digits and nails normal, no deformity : kidney or bladder not palpable Labs/imaging/EKG reviewed. Past medical history, past surgical history,social history, allergy reviewed and noted as below FAMILy HX; no hx of CKD. non contributory work up: UA: [address] 2017: s/p Rt nephrectomy, left kidney unremarkable TSAT 1% Ferritin 540 Vit D 21 PTH 229 CTA: no aneurysm or dissection but has pleural effusion Past Patient History - Infectious Disease Hx of Infectious Diseases: None - Tetanus Immunizations Tetanus Immunization: >10 years Ago - Past Medical History & Family History Past Medical History?: Yes - Past Social History Smoking Status: Former Smoker - CARDIAC Hx Cardiac Disorders: Yes Hx Hypertension: Yes - PULMONARY Hx Respiratory Disorders: No - NEUROLOGICAL HX Cerebrovascular Accident: Yes - HEENT Hx HEENT Problems: No - RENAL Hx Chronic Kidney Disease: Yes Hx Renal (Kidney) Cancer: Yes Other/Comment: Right nephrectomy - ENDOCRINE/METABOLIC Hx Endocrine Disorders: No - HEMATOLOGICAL/ONCOLOGICAL Hx Blood Disorders: No - INTEGUMENTARY Hx Dermatological Problems: No - MUSCULOSKELETAL/RHEUMATOLOGICAL Hx Arthritis: Yes - GASTROINTESTINAL Hx Gastrointestinal Disorders: No - GENITOURINARY/GYNECOLOGICAL Hx Genitourinary Disorders: No - PSYCHIATRIC Hx Psychophysiologic Disorder: Yes Hx Anxiety: Yes Hx Substance Use: No - SURGICAL HISTORY Other/Comment: Right nephrectomy - ANESTHESIA Hx Anesthesia Reactions: No Hx Malignant Hyperthermia: No Meds Allergies/Adverse Reactions: Allergies Allergy/AdvReac Type Severity Reaction Status Date / Time No Known Allergies Allergy Verified 08/19/16 23:01 - Medications Medications: Current Medications Atorvastatin Calcium (Lipitor) 20 mg PO DAILY [facility] Last Admin: 08/27/16 09:15 Dose: 20 mg Digoxin (Lanoxin) 0.125 mg PO DAILY [facility] Last Admin: 08/27/16 09:15 Dose: 0.125 mg Donepezil HCl (Aricept) 10 mg PO HS [facility] Last Admin: 08/26/16 21:26 Dose: Not Given Ferrous Gluconate (Fergon) 324 mg PO TID [facility] Last Admin: 08/27/16 09:15 Dose: 324 mg Furosemide (Lasix) 40 mg IVP DAILY [facility] Last Admin: 08/27/16 11:00 Dose: 40 mg Hydralazine HCl (Apresoline) 5 mg IVP Q6 [facility] Ceftriaxone Sodium (Rocephin 1 Gram Ivpb) 1 gm in 100 mls @ 100 mls/hr IVPB DAILY [facility] PRN Reason: Protocol Last Admin: 08/27/16 09:15 Dose: 100 mls/hr Metoprolol Tartrate (Lopressor) 50 mg PO BID [facility] Last Admin: 08/27/16 09:15 Dose: 50 mg Nystatin (Nystop Topical Powder) 0 gm TOP BID [facility] Last Admin: 08/27/16 10:40 Dose: 1 applic Oxycodone HCl (Oxycodone Immediate Release Tab) 5 mg PO Q6H PRN PRN Reason: Pain, severe (8-10) Last Admin: 08/27/16 07:40 Dose: 5 mg Pantoprazole Sodium (Protonix Ec Tab) 40 mg PO DAILY [facility] Last Admin: 08/27/16 09:15 Dose: 40 mg Tramadol HCl (Ultram) 50 mg PO TID PRN PRN Reason: Pain, moderate (4-7) Last Admin: 08/26/16 19:24 Dose: 50 mg Results - Vital Signs Recent Vital Signs: Last Vital Signs Temp 97.4 F L 08/27/16 12:00 Pulse 77 08/27/16 12:00 Resp 18 08/27/16 12:00 BP 129/73 08/27/16 12:00 Pulse Ox 95 08/27/16 11:09 - Labs Result Diagrams: 08/27/16 03:20 08/27/16 03:20
--- NOTE | 2016-08-27 16:28 | CT ---
PROCEDURE: CT Chest without contrast HISTORY: shortness of breath, elevated BNP COMPARISON: Chest radiograph from 08/26/2016 TECHNIQUE: Contiguous axial images were obtained through the chest without intravenous contrast enhancement. Sagittal and coronal reconstructions were performed. Radiation dose (DLP): 263.29 mGy-cm. This CT exam was performed using one or more of the following dose reduction techniques: Automated exposure control, adjustment of the mA and/or kV according to patient size, and/or use of iterative reconstruction technique. FINDINGS: LUNGS: There is no focal consolidation. There is subsegmental atelectasis in the left lower lobe. There is mild biapical pleural parenchymal scarring. There are no endobronchial lesions. MEDIASTINUM: The aorta is not dilated. There is mild cardiomegaly. There are advanced atherosclerotic calcifications in the coronary arteries with No pericardial effusion. Main pulmonary artery unremarkable. No vascular congestion. No pathologic lymphadenopathy. Subcentimeter mediastinal lymph nodes are likely reactive in etiology. PLEURA: There are moderate bilateral pleural effusions with compressive atelectasis in the lower lobes. No pneumothorax. BONES: No fracture. No destructive lesion. Multilevel degenerative changes in the spine. UPPER ABDOMEN: Grossly unremarkable. OTHER FINDINGS: None. IMPRESSION: 1. No evidence of consolidation, mass or pneumothorax. 2. Moderate bilateral pleural effusions with compressive atelectasis in the lower lobes.
--- NOTE | 2016-08-27 23:47 | CARD ---
APPROVED REPORT EKG Measurement Heart [id number] P96 [id number] <Conclusion> Atrial flutter with 4:1 AV conduction Right bundle branch block Left anterior fascicular block Bifascicular block Left ventricular hypertrophy with repolarization abnormality Cannot rule out Septal infarct, age undetermined Abnormal ECG
[2016-08-28 07:27] LABS: ADD MANUAL DIFF? NO
[2016-08-28 07:31] LABS: BASO # 0.07 K/mm3 (0.0-2.0); BASO % 1.1 % (0.0-3.0); EOS # 0.2 (0.0-0.7); EOS % 3.3 % (1.5-5.0); GRAN # 4.67 (1.4-6.5); GRAN % 70.5 % (50.0-68.0); HEMATOCRIT 30.3 % (36.0-48.0); LYMPH # 1.2 (1.2-3.4); LYMPH % 17.8 % (22.0-35.0); MEAN CORPUSCULAR HEMOGLOBIN 25.1 pg (25.0-35.0); MONO # 0.5 (0.1-0.6); MONO % 7.3 % (1.0-6.0); PLATELET COUNT 459 10^3/uL (120.0-450.0); RED CELL DISTRIBUTION WIDTH 28.4 % (11.5-14.5); WHITE BLOOD COUNT 6.6 10^3/ul (4.5-11.0)
[2016-08-28 07:58] LABS: ALB/GLOB RATIO 0.8 (1.1-1.8); BILIRUBIN,TOTAL 0.6 mg/dL (0.2-1.3); CALCIUM 9.1 mg/dL (8.4-10.5); MAGNESIUM 1.7 mg/dL (1.7-2.2); PHOSPHOROUS 2.6 mg/dL (2.5-4.5); POTASSIUM 4.4 mmol/L (3.6-5.0); TOTAL PROTEIN 7.2 g/dL (5.8-8.3)
[2016-08-28] MEDS: oxyCODONE 5 mg Immediate Release Tab PO PRN ×2 (08:02→21:33)
[2016-08-28] MEDS ORDERED: Cholecalciferol 400 Intl Units Tab PO SCH (10:00)
--- NOTE | 2016-08-28 10:23 | PN ---
DATE: 08/28/2016 The patient is feeling well. She is off oxygen. She denies shortness of breath. PHYSICAL EXAMINATION: VITAL SIGNS: Blood pressure is 129/65, the heart rate is in the 70s, sinus rhythm. NECK: Negative JVD. LUNGS: Without rales. HEART: Revealed S1, S2. EXTREMITIES: Without edema. LABORATORIES: BUN and creatinine are 27 and 1.7, potassium is 4.4. Hemoglobin is 9.4. IMPRESSION: 1. Mild congestive heart failure, which is now resolved. 2. First degree heart block. 3. Anemia. 4. Paroxysmal atrial fibrillation. The patient is now in normal sinus rhythm. 5. Pulmonary hypertension. Given these findings, we will discontinue the IV Lasix. We will change to p.o. Lasix 40 daily. We will discontinue the beta blockers, especially given her first degree heart block. Oswald Fonseca MD cc: [id number] TT: 08/28/2016 10:23:42 Confirmation # [id number] Dictation # [id number]
[2016-08-28] MEDS ORDERED: Digoxin 125 mcg (0.125 mg) Tab ONE (10:27)
[2016-08-28] MEDS ORDERED: Pantoprazole 40 mg EC Tab PO ONE (10:27)
[2016-08-28] MEDS ORDERED: cefTRIAXone 1 gm 1 GM/100 ML BAG IVPB ONE (10:28)
[2016-08-28] MEDS: Digoxin 125 mcg (0.125 mg) Tab PO SCH (10:30)
[2016-08-28] MEDS: Pantoprazole 40 mg EC Tab PO SCH (10:31)
[2016-08-28] MEDS: Nystatin 100,000 Units/gm Topical Pow(15 gm) TOP SCH ×2 (10:31→18:15)
[2016-08-28] MEDS: cefTRIAXone 1 gm 1 GM/100 ML BAG IVPB SCH (10:32)
--- NOTE | 2016-08-28 10:39 | PN ---
DATE: 08/28/2016 The patient was seen by Dr. Alas in consultation yesterday. The evaluation has been reviewed. The patient has had hypoxia with low probability for pulmonary emboli. She is on medical therapy at this time. She probably has some chronic obstructive pulmonary disease. After speaking to Dr. Alas about this case, she came in to the hospital with hypertension, anxiety, atrial fibrillation. She was recently discharged from [facility] for syncope. She is resting comfortably today with no acute distress. PHYSICAL EXAMINATION: GENERAL: She is awake and alert, in no distress. HEENT: Normal. NECK: Supple, no JVD, no lymphadenopathy. CARDIOVASCULAR: Regular rhythm. S1, S2 without murmur, gallop or rub. PULMONARY: Lungs are clear to percussion and auscultation. I do not auscultate any adventitious sounds at this time. ABDOMEN: Soft, bowel sounds normoactive without mass, guarding, rebound or organomegaly. EXTREMITIES: Reveal no edema. No swelling, no clubbing or cyanosis. There is no Homans sign. SKIN: No acute rash or excoriation. NEUROLOGIC: Stable. Motor, sensory and coordination appear to be normal. Deep tendon reflexes normal as well. ASSESSMENT: There are a few abnormalities. To determine an exact etiology at this time, we will review the CAT scan and discuss with Dr. Akins. We will adjust our notes once these films are reviewed and decide on the need further intervention. Thank you for the opportunity to evaluate this patient. Matt Clifton MD cc: [id number] TT: 08/28/2016 10:38:16 Confirmation # [id number] Dictation # [id number] [id number]
--- NOTE | 2016-08-28 11:27 | CP.PCM.PN ---
Subjective - Date & Time of Evaluation Date of Evaluation: 08/28/16 Time of Evaluation: 11:23 - Subjective Subjective: FOllow up Nephrology Consultation: Assessment: Acute Kidney Injury likely contrast nephropathy and hemodynamic Chronic Kidney Disease Stage 3 (N18.3) with ? proteinuria possibly due to HTN, age related decline, and s/p Rt nephrectomy due to hx of RCC Anemia chronic, Hypertension controlled (I12.9) Vit D insufficiency with secondary hyperparathyroidism Hypoxia ? CHF with severe pulmonary HTN (RVSP 81 mm Hg) and moderate to severe LVH hx of dementia Plan hold her lasix 24-48 hrs post CTA due to rise in serum creatinine Hypertension control with meds as ordered. lopressor 25 mg bid, prn hydralazine. hold losartan at this time. may add norvasc 5 mg/day if needed but BP controlled at this time She is already on statin started on vit D supplement 1000 unit/day, iron 324 mg TID ordered spot protein/creatinine and albumin/creatinine ratio Dose meds/antibiotics for reduced GFR. Avoid fleets enema/magnesium based laxatives. Avoid nephrotoxins/NSAIDs anemia management as per jazlyn Further work up as per primary team Thanks for allowing me to participate in care of your patient. Will follow patient with you. Please call if any Qs Dr Jt Lemon Office: [phone] Reason for consult: CKD and need for contrast study, PATRICIA HPI: Pt is a 80 y/o F with hx of hypertension (20 years) , renal cell cancer s/ p unilateral total nephrectomy, CKD stage 3 with baseline cr 1.4-1.7 since 2017 , anemia, A fib recently admitted with dizziness ? syncope. found to have anemia and got PRBC transfusion and had GI work up with EGD/colonoscopy. she was seen by heme and given IV iron. later she got d/c to rehab and then home. She came with shortness of breath and hypoxia, seen by cardio, pulmonary. has abnormal CXR concerns for aortic aneurysm/dissection and plan for STAT CTA study hence renal consulted since she has CKD and needed contrast exposure. ROS: she feels fine now. denies SOB/chest pain/nausea or urinary complaints Physical Examination: General Appearance: Comfortable, in no acute respiratory distress, co-operative . Vitals reviewed and noted as below Lungs: Normal respiratory rate/effort. Breath sounds bilateral equal and clear except few basal crackle Heart: Normal rate. s1s2 normal. No rub or gallop. Extremities: no edema. No varicose veins Neurological: Patient is alert, awake and oriented but forgetful. No focal deficit. Strength bilateral appropriate and equal Skin: Warm and dry. Normal turgor. No rash. Palpitation: Normal elasticity for age Abdomen: Abdomen is soft. Bowel sounds +. There is no abdominal tenderness, no guarding/rigidity or organomegaly Psych: lack insight and has normal affect/mood MSK: no joint tenderness or swelling. Digits and nails normal, no deformity : kidney or bladder not palpable Labs/imaging/EKG reviewed. Past medical history, past surgical history,social history, allergy reviewed and noted as below FAMILy HX; no hx of CKD. non contributory work up: UA: [address] 2017: s/p Rt nephrectomy, left kidney unremarkable TSAT 9% Ferritin 540 Vit D 21 PTH 229 CTA: no aneurysm or dissection but has pleural effusion Objective - Vital Signs/Intake and Output Vital Signs (last 24 hours): Temp Pulse Resp BP Pulse Ox 98.3 F 78 20 135/54 L 99 08/28/16 06:00 08/28/16 10:31 08/28/16 06:00 08/28/16 10:31 08/28/16 06:00 Intake and Output: 08/28/16 08/28/16 06:59 18:59 Intake Total 240 Output Total 500 Balance -260 - Medications Medications: Current Medications Atorvastatin Calcium (Lipitor) 20 mg PO DAILY [facility] Last Admin: 08/28/16 10:30 Dose: 20 mg Cholecalciferol (Vitamin D) 1,000 iu PO DAILY [facility] Last Admin: 08/28/16 10:32 Dose: 1,000 iu Digoxin (Lanoxin) 0.125 mg PO DAILY [facility] Last Admin: 08/28/16 10:30 Dose: 0.125 mg Donepezil HCl (Aricept) 10 mg PO HS [facility] Last Admin: 08/27/16 21:33 Dose: Not Given Ferrous Gluconate (Fergon) 324 mg PO TID [facility] Last Admin: 08/28/16 10:30 Dose: 324 mg Furosemide (Lasix) 40 mg PO DAILY [facility] Hydralazine HCl (Apresoline) 5 mg IVP Q6 [facility] Last Admin: 08/27/16 17:20 Dose: Not Given Ceftriaxone Sodium (Rocephin 1 Gram Ivpb) 1 gm in 100 mls @ 100 mls/hr IVPB DAILY [facility] PRN Reason: Protocol Last Admin: 08/28/16 10:32 Dose: 100 mls/hr Metoprolol Tartrate (Lopressor) 25 mg PO BID [facility] Last Admin: 08/28/16 10:31 Dose: 25 mg Nystatin (Nystop Topical Powder) 0 gm TOP BID [facility] Last Admin: 08/28/16 10:31 Dose: 1 applic Oxycodone HCl (Oxycodone Immediate Release Tab) 5 mg PO Q6H PRN PRN Reason: Pain, severe (8-10) Last Admin: 08/28/16 08:02 Dose: 5 mg Pantoprazole Sodium (Protonix Ec Tab) 40 mg PO DAILY [facility] Last Admin: 08/28/16 10:31 Dose: 40 mg Tramadol HCl (Ultram) 50 mg PO TID PRN PRN Reason: Pain, moderate (4-7) Last Admin: 08/26/16 19:24 Dose: 50 mg - Labs Labs: 08/28/16 05:30 08/28/16 05:30 PT 20.1 Seconds (9.9-11.8) H 08/27/16 13:15 INR 1.86 (0.93-1.08) H 08/27/16 13:15 APTT 37.0 Seconds (23.7-30.8) H 08/27/16 13:15
--- NOTE | 2016-08-28 14:36 | CON ---
DATE: 08/28/2016 HISTORY OF PRESENT ILLNESS: Shortly, the patient is an 80-year-old with reported history of dementia . The patient has multiple medical issues including atrial fibrillation, gastrointestinal bleed, hyp ertension. The patient also has history of renal cancer mass status post right nephrectomy. The john rodrigues has hypercholesterolemia and sciatica. The patient was recently discharged from the [facility] and was readmitted on the medical side for evaluation of shortness of breath. Circumstan rae of the patient's admission on the medical side this time is uncertain. What this technical report writer meant is , this technical report writer is not sure who called 911 and how the patient ended up in the hospital because Emergen cy Room documentation did not indicate that. Psych consult was called for evaluation of capacity to make decisions about her treatment plan. The patient was seen and examined today. The patient prese nted to be alert, pleasant and cooperative. The patient was oriented in self, place. The patient kn ows that she is in the hospital, knows that now is August, but she is not aware about the year. The luc black reported she lives alone. She does not have family who lives with her, but patient reported to have her [id number] who lives nearby. The patient reported that she has 2 kids and they are melissa ng not in [place]. The patient said that she is functioning well. She lives independently. The patient reported no episodes of being lost in the community. The patient said that she is paying all of her rent, all of her expenses as well as able to cook, and able to do shopping by herself. The p atravi said that she does not want to have extra help at home. The patient denied being depressed, d enied hearing voices, denied seeing things. The patient also denied thoughts of harming herself or o thers. The patient denied using drugs. Reported to have good appetite and sleep. This technical report writer is no t sure how true is this information, and patient lives independently and collateral information needs to be obtained from the family. The patient denied history of mental illness and denied history of being admitted to the psychiatric inpatient unit. VITAL SIGNS: Reviewed. LABORATORIES: Reviewed. MENTAL STATUS EXAMINATION: The patient presented to be alert, pleasant, cooperative, oriented to ino f, place, but was not sure what year now. The patient's eye contact was fair. Speech was kind of ov er-productive. The patient is hard of hearing. Mood described as, "I'm not depressed, why should I be depressed?"." Affect was reactive, mood congruent. Thought process: The patient seemed to confa bulate a little bit, but seems to be logical. Thought content: The patient denied visual, auditory, tactile hallucinations. Denied paranoid ideations. The patient denied thoughts of harming herself or others, denied intent or plan. Insight and judgment: The patient had a basic understanding of he r circumstances of her admission on the medical side. Impulses are well controlled. IMPRESSION: As per history, the patient has dementia. As per Dr. Crum's note, dementia is progressive ly worsening lately. The patient has multiple medical issues including acute kidney injury with chronic disease manager collins kidney disease, anemia, vitamin D deficiency, hypoxia, congestive heart failure with severe pulmo nary hypertension, history of dementia, syncopal episode. PLAN: This technical report writer is not sure what the patient's functionality is at home. The patient has reported history of dementia. The patient is an 80-year-old, lives independently. This technical report writer suggests fami ly involvement as per case loader operator, with whom this technical report writer had prolonged conversation. The patient's son is coming in order to have family meeting. This technical report writer also had prolonged conversation with medi ismael resident and as per medical staff specialist, the patient seems to be confabulating and there is mismatch with history of the patient being admitted to the medical side. On top of that, in regard to medica tions, the medical team is not sure if patient is able to manage her medications correctly. Meanwhil e, the patient also does not have an advanced directive. needs to be involved. Family dialogu e needs to be initiated. Meanwhile, the patient is compliant with the treatment and not agitated, no t aggressive, but family needs to be involved in order to figure out about advanced directives, about a power of senior attorney, but capacity to make decisions at present moment will not be able to be determi debra because additional information needs to be obtained from the family and family meeting needs to b e scheduled. The case was discussed with the case management as well as medical staff specialist. Should yo u have any questions, give me a call back. Dr. Herring will be covering over the weekend as well as Dr Mariia Briseno will be back next week. Should you have any questions, give me a call back. Thank you very much for letting me participate in the care of your patient. Clarita Rabago MD cc: [id number] TT: 08/28/2016 14:35:24 Confirmation # [id number] Dictation # [id number]
--- NOTE | 2016-08-28 15:15 | PN ---
DATE: 08/28/2016 SUBJECTIVE: The patient was seen and examined earlier today. The patient denies any further shortne ss of breath. No complaints of nausea, vomiting or abdominal pain. The patient had CT angio yesterd ay showing small bilateral pleural effusions. The patient reports having good bowel movement. No re ports of any bleeding. VITAL SIGNS: Temperature 98.3, blood pressure is 135/54, pulse 78, respirations 20, 99 on room air. LABORATORY DATA: WBC is 6.6, H and H are hemoglobin 9.4, hematocrit is 30.3, platelets are 459. Sod ium 138, K is 4.4, BUN 27, creatinine is 1.7. Total bilirubin is 0.6, AST 35, ALT 41, alk phos is 12 6. The patient's urine is positive for enterobacter. PHYSICAL EXAMINATION: HEENT: Sclerae are anicteric. NECK: Supple. CARDIAC: S1 and S2. LUNGS: Sounds are clear. ABDOMEN: With bowel sounds. Soft, no tenderness. No rebound or guarding. EXTREMITIES: No edema. ASSESSMENT: An 80-year-old female with history of renal cell carcinoma status post nephrectomy, hist ory of chronic kidney disease, peptic ulcer disease, angiodysplasia. Came with complaints of shortne ss of breath. She had a CT angio showing small bilateral pleural effusion. History of anemia, synco pe, history of cardiomyopathy, pulmonary hypertension. The patient went for a lung scan; results are pending - rule out pulmonary embolism. PLAN: Continue to monitor H and H. Also, she has a urinary tract infection. She is on Rocephin, is on iron supplements, Lopressor and PPI as per pulmonology and cardiology and renal. The patient was seen and case discussed with Dr. Gaytan. Elyse BORRERO cc: [id number] TT: 08/28/2016 15:14:24 Confirmation # [id number] Dictation # [id number] mn
--- NOTE | 2016-08-28 16:49 | CP.PCM.PN ---
Subjective - Date & Time of Evaluation Date of Evaluation: 08/28/16 Time of Evaluation: 07:30 - Subjective Subjective: Internal Medicine Progress Note for Dr. Akins/Dr. Maldonado service Patient seen and examined at bedside. Today is hospital day 3. No acute events overnight. Denies any complaints today, remains pleasantly disoriented ( oriented to self and location, not to time). Patient agitated later in afternoon, insisting that she is independent and in charge of all medical decision making. She is concerned that her sons (both live out of state) are trying to go behind her back, and she wants all conversations with family to go through her. Objective - Vital Signs/Intake and Output Vital Signs (last 24 hours): Temp Pulse Resp BP Pulse Ox 98.3 F 78 20 135/54 L 99 08/28/16 06:00 08/28/16 10:31 08/28/16 06:00 08/28/16 10:31 08/28/16 06:00 Intake and Output: 08/28/16 08/28/16 06:59 18:59 Intake Total 240 Output Total 500 Balance -260 - Medications Medications: Current Medications Atorvastatin Calcium (Lipitor) 20 mg PO DAILY [facility] Last Admin: 08/28/16 10:30 Dose: 20 mg Cholecalciferol (Vitamin D) 1,000 iu PO DAILY [facility] Last Admin: 08/28/16 10:32 Dose: 1,000 iu Digoxin (Lanoxin) 0.125 mg PO DAILY [facility] Last Admin: 08/28/16 10:30 Dose: 0.125 mg Donepezil HCl (Aricept) 10 mg PO HS [facility] Last Admin: 08/27/16 21:33 Dose: Not Given Ferrous Gluconate (Fergon) 324 mg PO TID [facility] Last Admin: 08/28/16 14:09 Dose: 324 mg Furosemide (Lasix) 40 mg PO DAILY [facility] Hydralazine HCl (Apresoline) 5 mg IVP Q6 [facility] Last Admin: 08/28/16 13:50 Dose: Not Given Ceftriaxone Sodium (Rocephin 1 Gram Ivpb) 1 gm in 100 mls @ 100 mls/hr IVPB DAILY [facility] PRN Reason: Protocol Last Admin: 08/28/16 10:32 Dose: 100 mls/hr Metoprolol Tartrate (Lopressor) 25 mg PO BID [facility] Last Admin: 08/28/16 10:31 Dose: 25 mg Nystatin (Nystop Topical Powder) 0 gm TOP BID [facility] Last Admin: 08/28/16 10:31 Dose: 1 applic Oxycodone HCl (Oxycodone Immediate Release Tab) 5 mg PO Q6H PRN PRN Reason: Pain, severe (8-10) Last Admin: 08/28/16 08:02 Dose: 5 mg Pantoprazole Sodium (Protonix Ec Tab) 40 mg PO DAILY [facility] Last Admin: 08/28/16 10:31 Dose: 40 mg Tramadol HCl (Ultram) 50 mg PO TID PRN PRN Reason: Pain, moderate (4-7) Last Admin: 08/26/16 19:24 Dose: 50 mg - Labs Labs: 08/28/16 05:30 08/28/16 05:30 PT 20.1 Seconds (9.9-11.8) H 08/27/16 13:15 INR 1.86 (0.93-1.08) H 08/27/16 13:15 APTT 37.0 Seconds (23.7-30.8) H 08/27/16 13:15 - Additional Findings Additional findings: - Constitutional Appears: Well, Non-toxic, No Acute Distress, Other (Resting comfortably in bed) - Head Exam Head Exam: ATRAUMATIC, NORMAL INSPECTION, NORMOCEPHALIC - Eye Exam Eye Exam: EOMI, Normal appearance. absent: Conjunctival injection, Scleral icterus Pupil Exam: absent: Irregular, Unequal - ENT Exam ENT Exam: Mucous Membranes Moist. absent: Mucous Membranes Dry - Neck Exam Neck exam: Normal Inspection - Respiratory Exam Respiratory Exam: Clear to PA & Lateral, Normal breathing pattern at rest but unable to take full deep breaths when instructed for ausculatation, Wearing NC at 2L. absent: Rales, Rhonchi, Wheezes, Respiratory Distress, Naren Cyanosis, Tachypnea - Cardiovascular Exam Cardiovascular Exam: REGULAR RHYTHM, RRR, +S1, +S2. absent: Bradycardia, Tachycardia, Irregular Rhythm, +S4 - GI/Abdominal Exam GI & Abdominal Exam: Normal Bowel Sounds, Soft, Unremarkable. absent: Diminished Bowel Sounds, Distended, Firm, Hyperactive Bowel Sounds, Hypoactive Bowel Sounds, Rigid, Tenderness, Pulsatile mass - Extremities Exam Extremities Exam: No calf tenderness/pedal edema/erythema bilaterally, +1 dorsalis pedis pulses bilaterally, +2 radial pulses bilaterally - Neurological Exam Neurological Exam: Awake and alert, oriented to self and location but not to year, moving all extremities spontaneously - Psychiatric Exam Psychiatric exam: Normal Affect, Normal Mood, Some disorientation (not oriented to year, but knows to check the paper to see the date; poor understanding/ insight into medical conditions), forgetful/confused intermittently, poor historian, some agitation 2/2 concern that family is attempting to manage her affairs behind her back - Skin Skin Exam: Dry, Intact, Normal Color (some chronic age-related skin changes in bilateral lower extremities), Warm Assessment and Plan - Assessment and Plan (Free Text) Assessment: This is an 80 yo AA F with PMH of HTN, Anxiety, history of renal cancer/mass s/ p R nephrectomy, sciatica, hypercholesterolemia, prior tobacco use history, and atrial fibrillation who was just discharged from [facility] after syncopal episode 2/2 blood loss anemia who represents to [facility] ED this AM with complaints of shortness of breath with desaturations on room air. She is s/p CTA study 1 day prior due to concern for acute aortic dissection, and is undergoing close monitoring of renal function given history of CKD and R-nephrectomy in setting of recent contrast study. Plan: 1) Dyspnea with O2 desaturation on room air -unclear etiology, PE vs 2/2 anemia vs deconditioning vs CHF vs COPD vs infectious etiology -Patient previously on anticoagulation for afib/aflutter, but stopped during last admission due to persisting bleed on AC, last dose of coumadin (7.5mg) on , got 2x doses of Vitamin K 5mg after. INR on 08/23 1.28, INR in ED 2.18; repeat INR 1.86 -Hgb stable, was 9.6 in ED, 9.4 today (9.7 yesterday) -As per Family members, former smoker, no use in > 1 year -D-dimer 0.97, Trops 0.06 -> 0.05 -> 0.06 -CTA negative for PE, negative for dissection -ED EKG: aflutter with variable AV block, RBBB, Left ant fasicular block; when compared to EKG 08/09/16, appears unchanged -Echo on 08/13/16: LVEF 73%, mod-severe LVH, Mild MR, Mod TR, Severe Pulm HTN, moderate LA and RA dilation, no wall motion abnormalities reported -LE Duplex obtained, negative for DVT -6 minute walk test with pulse ox ordered -Urine notable for small leuk esterase, urine culture positive for Enterobacter Cloacae resistant to Rocephin, starting on Cefepime -Cefepime covers for possible pneumonia -Blood cultures negative x24 hours, procal 0.18 -Continue Digoxin, Iron; Metoprolol decreased to 25mg PO BID as per Cardio -Continue supplemental O2 as needed, maintain SaO2 > 90%; AM ABG reviewed, unremarkable -Iron and Iron sat low, elevated Ferritin, and elevated RDW, consistent with iron def. anemia -Normal range thyroid panel -B12 normal range, folate pending -As per Nephro, holding Lasix for 24-48 hours given increased Cr after CTA -Pulm (Dr. Smith), Cardio (Dr. Fonseca), GI (Dr. Gaytan), and Nephro (Dr. Lemon ) consulted, appreciate all recs 2) Dementia -continue aricept; reports in prior charting that patient refuses to take at home due to feeling that her memory is fine -question as to degree of dementia, if patient has capacity for informed medical decision making; Psych consulted (Dr. Rabago), appreciate their recs -As per Psych, there may be an element of confabulation present, need colateral information from family to further assess and determine patient's decision making capabilities. -Discussed with patient's son Benjamin in [facility] (Cell ), family discussion recommended by phone conference, he will reach out to other family members, determine a time convenient for them -As per Psych's recs, Palliative care consult placed, appreciate all assistance 3) PATRICIA on CKD -Cr 1.7 today, was 1.4 yesterday; likely 2/2 contrast-study yesterday -Nephro (Dr. Lemon) following, appreciate all recs; hold Lasix for 24-48 hours, continue to monitor 4) Widening aortic arch on CXR: RESOLVED -As per radiology, arch widened on CXR 08/27 as compared to 08/26 -CTA negative for acute dissection -Discussed with Nephrology (Dr. Lemon) needing CTA despite R-nephrectomy and persisting Cr of 1.4; as per Nephro, ok to obtain CTA given severity of possible condition, will follow the patient as well 5) HTN -holding Lasix for 24-48 hrs per Nephro, Metoprolol decreased as per Cardio 6) Anemia -appears stable, continue to monitor -no indication to transfuse at this time, type and screen ordered in case of bleed -stool occult ordered 7) HLD -continue statin Dispo: Med/Surg, Pending family conference with [place]/Psych/Palliative services, continue monitoring of renal fxn s/p contrast study FEN: Heart-healthy diet Access: Peripheral IV Consults: Pulm, Cardio, Nephro, Psych, Palliative Ppx: Protonix covers GI, SCDs for DVT (avoid AC given recurrent bleeds) Patient seen, reviewed, and discussed with attending, Dr. Maldonado.
--- NOTE | 2016-08-28 18:34 | NM ---
COMPARISON: Comparison is made to the previous study dated 02/12/2015 TECHNIQUE: 30 mCi technetium 99-m DTPA aerosol 3.6 mCI technetium 99-m MAA administered intravenously. FINDINGS: VENTILATION COMPONENT: Markedly heterogeneous suggestive of COPD PERFUSION COMPONENT: No evidence of segmental or subsegmental perfusion defect to suggest PE. IMPRESSION: Lowprobability ventilation perfusion scan for pulmonary embolism.
[2016-08-28] MEDS: Cefepime 1gm in NS 100ml 1 GM/100 ML BAG IVPB SCH (21:27)
[2016-08-29 02:09] LABS: URINE BILIRUBIN NEGATIVE (NEGATIVE); URINE BLOOD TRACE-LYSED (NEGATIVE); URINE GLUCOSE (UA) NEGATIVE (NEGATIVE); URINE KETONE NEGATIVE (NEGATIVE); URINE LEUKOCYTE ESTERASE NEGATIVE Leu/uL (NEGATIVE); URINE PROTEIN 100 mg/dL (<30 mg/dL); URINE UROBILINOGEN 0.2 E.U./dL (<1 E.U./dL)
[2016-08-29 02:16] LABS: URINE APPEARANCE CLEAR (CLEAR); URINE COLOR YELLOW (YELLOW)
[2016-08-29 02:21] LABS: URINE BACTERIA RARE (NEG)
[2016-08-29 05:32] LABS: CREATININE, RANDOM URINE 81 mg/dL (20-320)
[2016-08-29 06:48] LABS: BASO # 0.05 K/mm3 (0.0-2.0); BASO % 0.6 % (0.0-3.0); EOS # 0.2 (0.0-0.7); EOS % 2.6 % (1.5-5.0); GRAN # 7.01 (1.4-6.5); GRAN % 77.1 % (50.0-68.0); LYMPH # 1.2 (1.2-3.4); LYMPH % 13.1 % (22.0-35.0); MEAN CELL VOLUME 81.4 fL (80.0-105.0); MEAN CORPUSCULAR HEMOGLOBIN 25.2 pg (25.0-35.0); MONO # 0.6 (0.1-0.6); MONO % 6.6 % (1.0-6.0); PLATELET COUNT 469 10^3/uL (120.0-450.0); RED CELL DISTRIBUTION WIDTH 28.3 % (11.5-14.5); WHITE BLOOD COUNT 9.1 10^3/ul (4.5-11.0)
[2016-08-29 06:55] LABS: ALB/GLOB RATIO 0.8 (1.1-1.8); BILIRUBIN,TOTAL 0.7 mg/dL (0.2-1.3); CALCIUM 8.9 mg/dL (8.4-10.5); MAGNESIUM 1.7 mg/dL (1.7-2.2); PHOSPHOROUS 2.3 mg/dL (2.5-4.5); POTASSIUM 4.5 mmol/L (3.6-5.0); TOTAL PROTEIN 7.6 g/dL (5.8-8.3)
[2016-08-29 06:57] LABS: ADD MANUAL DIFF? NO
--- NOTE | 2016-08-29 08:19 | PN ---
DATE: 08/28/2016 ADDENDUM This is an addendum to the GI progress report dictated by Elyse Moran APN. Discussed with nursing staff. CT was reviewed. On examination, abdomen soft. There is no tenderness, tolerating a diet. off anticoagulation. Hct stable. No bleeding per rectum or melena, no abdominal pain. We will continue to closely follow up. Thank you very much for allowing us to participate in the care of the patient. Ryan Gaytan MD cc: [id number] TT: 08/29/2016 08:18:32 Confirmation # [id number] Dictation # [id number] tn MTDD
--- NOTE | 2016-08-29 08:50 | CP.PCM.PN ---
Subjective - Date & Time of Evaluation Date of Evaluation: 08/29/16 Time of Evaluation: 07:40 - Subjective Subjective: Internal Medicine Progress Note for Dr. Akins/Dr. Maldonado service Patient seen and examined at bedside. Today is hospital day 4. Overnight, patient developed tachycardia up to 150's, but as per nursing denied any symptomatic complaints at that time. Tachycardia was resolved with 25mg PO Metoprolol given stat (HR 75 on recheck 1 hr later). Denies any complaints today, but seemingly subdued today in the morning; more awake and alert this afternoon on repeat exam. Remains disoriented (oriented to self and location, not to time, knows who the president is). Denies chest pain, palpitations, shortness of breath, or nausea/emesis. Objective - Vital Signs/Intake and Output Vital Signs (last 24 hours): Temp Pulse Resp BP Pulse Ox 97.7 F 75 20 119/69 100 08/28/16 16:00 08/29/16 06:00 08/28/16 16:00 08/29/16 06:19 08/28/16 16:00 Intake and Output: 08/29/16 08/29/16 06:59 18:59 Intake Total 640 Output Total 250 Balance 390 - Medications Medications: Current Medications Atorvastatin Calcium (Lipitor) 20 mg PO DAILY [facility] Last Admin: 08/28/16 10:30 Dose: 20 mg Cholecalciferol (Vitamin D) 1,000 iu PO DAILY [facility] Last Admin: 08/28/16 10:32 Dose: 1,000 iu Digoxin (Lanoxin) 0.125 mg PO DAILY [facility] Last Admin: 08/28/16 10:30 Dose: 0.125 mg Donepezil HCl (Aricept) 10 mg PO [facility] Last Admin: 08/28/16 21:28 Dose: 10 mg Ferrous Gluconate (Fergon) 324 mg PO TID [facility] Last Admin: 08/28/16 17:56 Dose: 324 mg Furosemide (Lasix) 40 mg PO DAILY [facility] Hydralazine HCl (Apresoline) 5 mg IVP Q6 [facility] Last Admin: 08/29/16 06:19 Dose: Not Given Cefepime HCl (Maxipime 1gm) 1 gm in 100 mls @ 100 mls/hr IVPB [facility] PRN Reason: Protocol Last Admin: 08/28/16 21:27 Dose: 100 mls/hr Metoprolol Tartrate (Lopressor) 25 mg PO BID [facility] Last Admin: 08/28/16 17:55 Dose: 25 mg Nystatin (Nystop Topical Powder) 0 gm TOP BID [facility] Last Admin: 08/28/16 18:15 Dose: 1 applic Oxycodone HCl (Oxycodone Immediate Release Tab) 5 mg PO Q6H PRN PRN Reason: Pain, severe (8-10) Last Admin: 08/28/16 21:33 Dose: 5 mg Pantoprazole Sodium (Protonix Ec Tab) 40 mg PO DAILY [facility] Last Admin: 08/28/16 10:31 Dose: 40 mg Tramadol HCl (Ultram) 50 mg PO TID PRN PRN Reason: Pain, moderate (4-7) Last Admin: 08/26/16 19:24 Dose: 50 mg - Labs Labs: 08/29/16 06:36 08/29/16 06:36 PT 20.1 Seconds (9.9-11.8) H 08/27/16 13:15 INR 1.86 (0.93-1.08) H 08/27/16 13:15 APTT 37.0 Seconds (23.7-30.8) H 08/27/16 13:15 - Additional Findings Additional findings: - Constitutional Appears: Well, Non-toxic, No Acute Distress, Other (Resting comfortably in bed) - Head Exam Head Exam: ATRAUMATIC, NORMAL INSPECTION, NORMOCEPHALIC - Eye Exam Eye Exam: EOMI, Normal appearance. absent: Conjunctival injection, Scleral icterus Pupil Exam: absent: Irregular, Unequal - ENT Exam ENT Exam: Mucous Membranes Moist. absent: Mucous Membranes Dry - Neck Exam Neck exam: Normal Inspection - Respiratory Exam Respiratory Exam: Clear to PA & Lateral, Normal breathing pattern at rest but unable to take full deep breaths when instructed for ausculatation, Wearing NC at 2L. absent: Rales, Rhonchi, Wheezes, Respiratory Distress, Naren Cyanosis, Tachypnea - Cardiovascular Exam Cardiovascular Exam: REGULAR RHYTHM, RRR, +S1, +S2. absent: Bradycardia, Tachycardia, Irregular Rhythm, +S4 - GI/Abdominal Exam GI & Abdominal Exam: Normal Bowel Sounds, Soft, Unremarkable. absent: Diminished Bowel Sounds, Distended, Firm, Hyperactive Bowel Sounds, Hypoactive Bowel Sounds, Rigid, Tenderness, Pulsatile mass - Extremities Exam Extremities Exam: No calf tenderness/pedal edema/erythema bilaterally, +1 dorsalis pedis pulses bilaterally, +2 radial pulses bilaterally - Neurological Exam Neurological Exam: Awake and alert, moving all extremities spontaneously, Following all commands - Psychiatric Exam Psychiatric exam: Subdued mood, Normal affect, Some disorientation (not oriented to year, but knows to check the paper to see the date; poor understanding/insight into medical conditions), forgetful/confused intermittently, poor historian - Skin Skin Exam: Dry, Intact, Normal Color (some chronic age-related skin changes in bilateral lower extremities), Warm Assessment and Plan - Assessment and Plan (Free Text) Assessment: This is an 80 yo AA F with PMH of HTN, Anxiety, history of renal cancer/mass s/ p R nephrectomy, sciatica, hypercholesterolemia, prior tobacco use history, and atrial fibrillation readmitted to [facility] after discharge 1 day prior with shortness of breath with desaturations on room air. She is 2 days s/p CTA study due to concern for acute aortic dissection, and is undergoing close monitoring of renal function given history of CKD and R-nephrectomy in setting of recent contrast study. Plan: 1) Dyspnea with O2 desaturation on room air -unclear etiology, 2/2 anemia vs deconditioning vs CHF vs COPD vs infectious etiology -Patient previously on anticoagulation for afib/aflutter, but stopped during last admission due to persisting bleed on AC, last dose of coumadin (7.5mg) on , got 2x doses of Vitamin K 5mg after. INR on 08/23 1.28, INR in ED 2.18; repeat INR 1.86 -Hgb stable, was 9.6 in ED, 9.6 today (9.4 yesterday) -former smoker, no use in > 1 year -D-dimer 0.97, Trops 0.06 -> 0.05 -> 0.06; unlikely ACS -ED EKG: aflutter with variable AV block, RBBB, Left ant fasicular block; when compared to EKG 08/09/16, appears unchanged; repeat EKG ordered due to overnight tachycardic episode, f/u -Echo on 08/13/16: LVEF 73%, mod-severe LVH, Mild MR, Mod TR, Severe Pulm HTN, moderate LA and RA dilation, no wall motion abnormalities reported -LE Duplex obtained, negative for DVT; CTA negative for PE, negative for dissection -6 minute walk test with pulse ox ordered -Urine notable for small leuk esterase, urine culture positive for Enterobacter Cloacae resistant to Rocephin, continue Cefepime -Cefepime covers for possible pneumonia -Blood cultures negative x48 hours, procal 0.18 -Continue Digoxin, Iron; Metoprolol decreased to 25mg PO BID as per Cardio -Continue supplemental O2 as needed, maintain SaO2 > 90%; AM ABG reviewed, unremarkable -Iron and Iron sat low, elevated Ferritin, and elevated RDW, consistent with iron def. anemia -Normal range thyroid panel, b12, and folate -As per Nephro, holding Lasix for 24-48 hours given increased Cr after CTA -Pulm (Dr. Smith), Cardio (Dr. Fonseca), GI (Dr. Gaytan), and Nephro (Dr. Lemon ) consulted, appreciate all recs 2) Dementia -continue aricept; reports in prior charting that patient refuses to take at home due to feeling that her memory is fine -question as to degree of dementia, if patient has capacity for informed medical decision making; Psych consulted (Dr. Rabago), appreciate their recs -As per Psych, there may be an element of confabulation present, need colateral information from family to further assess and determine patient's decision making capabilities. -Discussed with patient's son Benjamin in [facility] (Cell ), family discussion recommended by phone conference, he will reach out to other family members, determine a time convenient for them -As per Psych's recs, Palliative care consult placed, appreciate all assistance 3) PATRICIA on CKD -Cr 1.5 today, was 1.7 yesterday; likely 2/2 contrast-study yesterday -Nephro (Dr. Lemon) following, appreciate all recs; hold Lasix for 24-48 hours, continue to monitor 4) Widening aortic arch on CXR: RESOLVED -As per radiology, arch widened on CXR 08/27 as compared to 08/26 -CTA negative for acute dissection -Discussed with Nephrology (Dr. Lemon) needing CTA despite R-nephrectomy and persisting Cr of 1.4; as per Nephro, ok to obtain CTA given severity of possible condition, will follow the patient as well 5) HTN -holding Lasix for 24-48 hrs per Nephro, Metoprolol decreased as per Cardio 6) Anemia -appears stable, continue to monitor -no indication to transfuse at this time, type and screen ordered in case of bleed -stool occult ordered 7) HLD -continue statin Dispo: Med/Surg, Pending family conference with [employer] [facility]/Psych/Palliative services, continue monitoring of renal fxn s/p contrast study FEN: Heart-healthy diet Access: Peripheral IV Consults: Pulm, Cardio, Nephro, Psych, Palliative Ppx: Protonix covers GI, SCDs for DVT (avoid AC given recurrent bleeds) Patient seen, reviewed, and discussed with attending, Dr. Maldonado.
--- NOTE | 2016-08-29 09:28 | PN ---
DATE: 08/29/2016 The patient was seen and examined at bedside. She is not in any respiratory distress. She is receiv ing cefepime intravenously. She is not on oxygen. PHYSICAL EXAMINATION: VITAL SIGNS: Temperature is 98.4, respirations 20, blood pressure 134/75, pulse oximetry is 95 on ro om air. HEAD, EARS, NOSE AND THROAT: Within normal limits. NECK: Supple with no jugular vein distensions. CARDIOVASCULAR: S1, S2, no S3. PULMONARY: Diminished breath sounds at both lung bases with no wheezing. GASTROINTESTINAL: Soft, nontender. No organomegaly. EXTREMITIES: No edema, no cyanosis. SKIN: Clear with no skin rash, no cyanosis. NEUROLOGIC: No focal deficits. The patient's pulmonary status has improved. She is no longer short of breath. The lungs appear rel atively clear on auscultation. Her chest x-ray on admission was nonrevealing, negative for congestiv e heart failure or infiltrate. ASSESSMENT AND PLAN: Mild hypoxia on admission, rule out chronic obstructive pulmonary disease and l ow probability of pulmonary emboli. We will recheck the patient on a p.r.n. basis. Driss Alas MD cc: [id number] TT: 08/29/2016 09:26:58 Confirmation # [id number] Dictation # [id number] amisha
[2016-08-29] MEDS: Digoxin 125 mcg (0.125 mg) Tab PO SCH (09:55)
[2016-08-29] MEDS: Nystatin 100,000 Units/gm Topical Pow(15 gm) TOP SCH ×2 (09:58→17:28)
[2016-08-29] MEDS: Pantoprazole 40 mg EC Tab PO SCH (09:58)
--- NOTE | 2016-08-29 13:53 | CARD ---
APPROVED REPORT EKG Measurement Heart [id number] NM P94 [id number] <Conclusion> Atrial flutter with 4:1 AV conduction Right bundle branch block Left anterior fascicular block Bifascicular block Left ventricular hypertrophy with repolarization abnormality Cannot rule out Septal infarct, age undetermined Abnormal ECG
[2016-08-29] MEDS: oxyCODONE 5 mg Immediate Release Tab PO PRN ×2 (15:02→21:28)
[2016-08-29] MEDS: Cefepime 1gm in NS 100ml 1 GM/100 ML BAG IVPB SCH (21:29)
[2016-08-30] MEDS: oxyCODONE 5 mg Immediate Release Tab PO PRN (05:19)
[2016-08-30 07:21] LABS: ADD MANUAL DIFF? NO
[2016-08-30 07:32] LABS: BASO # 0.04 K/mm3 (0.0-2.0); BASO % 0.4 % (0.0-3.0); EOS # 0.1 (0.0-0.7); EOS % 1.1 % (1.5-5.0); GRAN # 6.97 (1.4-6.5); GRAN % 77.9 % (50.0-68.0); HEMATOCRIT 31.8 % (36.0-48.0); LYMPH # 1.2 (1.2-3.4); LYMPH % 13.6 % (22.0-35.0); MEAN CELL VOLUME 80.9 fL (80.0-105.0); MEAN CORPUSCULAR HEMOGLOBIN 26.2 pg (25.0-35.0); MEAN CORPUSCULAR HGB CONC 32.4 g/dl (31.0-37.0); MEAN PLATELET VOLUME 8.9 fl (7.0-11.0); MONO # 0.6 (0.1-0.6); PLATELET COUNT 445 10^3/uL (120.0-450.0); RED CELL DISTRIBUTION WIDTH 27.9 % (11.5-14.5)
[2016-08-30 07:47] LABS: MAGNESIUM 1.8 mg/dL (1.7-2.2); PHOSPHOROUS 3.5 mg/dL (2.5-4.5)
--- NOTE | 2016-08-30 09:05 | PN ---
DATE: 08/30/2016 The patient was seen and examined at bedside. She states she is not short of breath. She complains of occasional cough. I reviewed today's laboratory data. WBCs are 9.0, hemoglobin of 10.3, and platelet count is 445,000. PHYSICAL EXAMINATION: VITAL SIGNS: Her temperature is 98, pulse 74, respirations 18, pulse oximetry is 98% on nasal cannul a, blood pressure is 123/75. HEAD, EARS, NOSE AND THROAT: Within normal limits. NECK: Supple with no jugular vein distention. CHEST: Symmetrical. CARDIOVASCULAR: S1, S2, no S3, regular. PULMONARY: Diminished breath sounds at both lung bases. No wheezing. GASTROINTESTINAL: Soft, nontender, no organomegaly. EXTREMITIES: No edema, no cyanosis. SKIN: Clear with no skin rashes, no cyanosis. NEUROLOGIC: Limited at present time. ASSESSMENT AND PLAN: Mild hypoxia on admission, rule out chronic obstructive pulmonary disease, low probability of pulmonary emboli. The chest x-ray on admission was nonrevealing. I reviewed the x-ra y and found it negative for congestive heart failure and no infiltrates. [facility] and recheck on a p.r.n. basis. Driss Alas MD cc: [id number] TT: 08/30/2016 09:04:23 Confirmation # [id number] Dictation # [id number] en
[2016-08-30] MEDS: Digoxin 125 mcg (0.125 mg) Tab PO SCH (09:40)
[2016-08-30] MEDS: Pantoprazole 40 mg EC Tab PO SCH (09:40)
[2016-08-30] MEDS: Nystatin 100,000 Units/gm Topical Pow(15 gm) TOP SCH ×2 (09:42→18:00)
[2016-08-30] MEDS: Cefepime 1gm in NS 100ml 1 GM/100 ML BAG IVPB SCH (21:45)
[2016-08-31 00:51] VITALS: O2SAT 100
[2016-08-31] MEDS ORDERED: DiphenhydrAMINE 50 mg/ml Inj IVP ONE (01:50)
[2016-08-31 07:27] LABS: ADD MANUAL DIFF? NO
[2016-08-31 07:33] LABS: BASO # 0.06 K/mm3 (0.0-2.0); BASO % 0.8 % (0.0-3.0); EOS # 0.3 (0.0-0.7); GRAN # 4.43 (1.4-6.5); GRAN % 59.8 % (50.0-68.0); HEMATOCRIT 32.1 % (36.0-48.0); LYMPH % 26.5 % (22.0-35.0); MEAN CELL VOLUME 81.5 fL (80.0-105.0); MEAN CORPUSCULAR HEMOGLOBIN 25.1 pg (25.0-35.0); MEAN CORPUSCULAR HGB CONC 30.8 g/dl (31.0-37.0); MEAN PLATELET VOLUME 9.1 fl (7.0-11.0); MONO # 0.7 (0.1-0.6); MONO % 8.9 % (1.0-6.0); PLATELET COUNT 462 10^3/uL (120.0-450.0); RED CELL DISTRIBUTION WIDTH 27.4 % (11.5-14.5); WHITE BLOOD COUNT 7.4 10^3/ul (4.5-11.0)
[2016-08-31 07:50] LABS: MAGNESIUM 1.9 mg/dL (1.7-2.2); PHOSPHOROUS 3.9 mg/dL (2.5-4.5)
[2016-08-31 08:07] VITALS: RESP 18
--- NOTE | 2016-08-31 08:27 | PN ---
DATE: 08/31/2016 PULMONARY NOTE SUBJECTIVE: The patient appears comfortable this morning. She is not short of breath at rest. PHYSICAL EXAMINATION: VITAL SIGNS: Temperature is 98.1, pulse 72, respirations 18, blood pressure 124 /68. Oxygen saturation on nasal cannula is 100%. HEENT: Normocephalic, atraumatic. No JVD. CARDIOVASCULAR: Systolic ejection murmur at the lower left sternal border. Questionable S3 gallop. LUNGS: Decreased breath sounds at the bases. Otherwise, clear. EXTREMITIES: Mild edema. No cyanosis, no clubbing. Calves are nontender to palpation. GASTROINTESTINAL: Abdomen is soft, nontender, nondistended. Bowel sounds are positive. SKIN: No acute rash. NEUROLOGIC: Limited at the present time. IMPRESSION: 1. Mild congestive heart failure. 2. Small bilateral pleural effusions. 3. Cardiac arrhythmias. 4. Rule out chronic obstructive pulmonary disease. 5. Anemia. PLAN: The patient appears very comfortable this morning. She is not short of breath at rest. She states she is feeling much better overall. On physical exam, no significant bronchospasm is noted. In addition, the oxygen saturation on nasal cannula is now 100%. I would continue with the treatment for congestive heart failure, as per cardiology. Input by Dr. Fonseca as noted. The patient remains on Lasix/afterload reduction. GI evaluation is also ongoing. Input by Dr. Gaytan is also noted. Clinical status of the patient is certainly improved - compared to the initial presentation. I would like to obtain a pulmonary function test - in the near future - when the patient is at a quiescence stage. I will discuss the above with the attending physician. Jake Smith MD cc: [id number] TT: 08/31/2016 08:27:05 Confirmation # [id number] Dictation # [id number] [id number] CONSTANZA
--- NOTE | 2016-08-31 08:30 | PN ---
DATE: 08/30/2016 The patient seen and examined at bedside. Currently, is complaining of mild shortness of breath. Enriquez s not been ambulating at this point, but no chest pain, no nausea, no vomiting. PHYSICAL EXAMINATION: VITAL SIGNS: Blood pressure is 128/75, pulse rate of 75, temperature is 98.8, O2 saturation is 98 on 2 liters nasal cannula. HEENT: Normocephalic, atraumatic. CARDIOVASCULAR: Regular rate and rhythm. S1, S2 appreciated. No S3 noted. LUNGS: Bilateral air entry is decreased at the base with some mild crackles. ABDOMEN: Nondistended, nontender. Positive bowel sounds. EXTREMITIES: Pulses +2, no pitting edema. LABORATORY DATA: WBCs of 9.0, hemoglobin of 10.3, hematocrit of 31.8, platelets of 445. Chemistry w ithin normal limits except for creatinine of 1.5. Blood cultures are negative at this point. She di d have a V/Q scan done, which showed low probability. ASSESSMENT: 1. Shortness of breath. 2. Hypoxia. 3. Congestive heart failure. 4. Acute renal insufficiency. 5. Urinary tract infection. 6. Hypertension. 7. Anemia. PLAN: At this time, we will work her up for physical therapy and at that point, we will send her for subacute rehab if accepted. At this point, we will continue her current treatment that she is receiv ing, which includes her digoxin, her Lasix, her pain medication, as well as cefepime at this point. Khari Maldonado MD cc: [id number] TT: 08/30/2016 14:22:58 Confirmation # [id number] Dictation # [id number] jodee
[2016-08-31 09:15] VITALS: TEMP 98.5
[2016-08-31] MEDS: Digoxin 125 mcg (0.125 mg) Tab PO SCH (10:27)
--- NOTE | 2016-08-31 10:27 | CP.PCM.CON ---
History of Present Illness - History of Present Illness History of Present Illness: Palliative consult requested By Dr Yovany Vital Attending Dr Nakul Akins Reason: Goals of care 80 year old female who became short of breath and hypoxic. O2 saturation stabilized after she was given oxygen therapy. She was recently discharged from acute care(08/16/16) after being treated for GI bleed and rapid atrial fibrillation. PMHx: renal cancer s/p right nephrectomy,CHF, PAT, pulminary hypertension, CVA, HTN,dementia, GI bleed,Clostridium difficile ,sciatica Social History: Former smoker, no alcohol or drug use.Lives alone Family History: Unknown, patient is poor historian. Advance Care Planning: The patient does not have an Advanced Directive Review of Systems: A 14 point review of systems is negative. Past Patient History - Infectious Disease Hx of Infectious Diseases: None - Tetanus Immunizations Tetanus Immunization: >10 years Ago - Past Medical History & Family History Past Medical History?: Yes - Past Social History Smoking Status: Former Smoker - CARDIAC Hx Cardiac Disorders: Yes Hx Hypertension: Yes - PULMONARY Hx Respiratory Disorders: No - NEUROLOGICAL HX Cerebrovascular Accident: Yes - HEENT Hx HEENT Problems: No - RENAL Hx Chronic Kidney Disease: Yes Hx Renal (Kidney) Cancer: Yes Other/Comment: Right nephrectomy - ENDOCRINE/METABOLIC Hx Endocrine Disorders: No - HEMATOLOGICAL/ONCOLOGICAL Hx Blood Disorders: No - INTEGUMENTARY Hx Dermatological Problems: No - MUSCULOSKELETAL/RHEUMATOLOGICAL Hx Arthritis: Yes - GASTROINTESTINAL Hx Gastrointestinal Disorders: No - GENITOURINARY/GYNECOLOGICAL Hx Genitourinary Disorders: No - PSYCHIATRIC Hx Psychophysiologic Disorder: Yes Hx Anxiety: Yes Hx Substance Use: No - SURGICAL HISTORY Other/Comment: Right nephrectomy - ANESTHESIA Hx Anesthesia Reactions: No Hx Malignant Hyperthermia: No Meds Allergies/Adverse Reactions: Allergies Allergy/AdvReac Type Severity Reaction Status Date / Time No Known Allergies Allergy Verified 08/19/16 23:01 - Medications Medications: Current Medications Atorvastatin Calcium (Lipitor) 20 mg PO DAILY [facility] Last Admin: 08/30/16 09:40 Dose: 20 mg Cholecalciferol (Vitamin D) 1,000 iu PO DAILY [facility] Last Admin: 08/30/16 09:41 Dose: 1,000 iu Digoxin (Lanoxin) 0.125 mg PO DAILY [facility] Last Admin: 08/30/16 09:40 Dose: 0.125 mg Donepezil HCl (Aricept) 10 mg PO HS [facility] Last Admin: 08/30/16 21:43 Dose: 10 mg Ferrous Gluconate (Fergon) 324 mg PO TID [facility] Last Admin: 08/30/16 18:00 Dose: 324 mg Furosemide (Lasix) 40 mg PO DAILY [facility] Last Admin: 08/30/16 09:41 Dose: 40 mg Hydralazine HCl (Apresoline) 5 mg IVP Q6 [facility] Last Admin: 08/31/16 06:17 Dose: Not Given Cefepime HCl (Maxipime 1gm) 1 gm in 100 mls @ 100 mls/hr IVPB [facility] PRN Reason: Protocol Last Admin: 08/30/16 21:45 Dose: 100 mls/hr Metoprolol Tartrate (Lopressor) 25 mg PO BID [facility] Last Admin: 08/30/16 18:00 Dose: 25 mg Nystatin (Nystop Topical Powder) 0 gm TOP BID [facility] Last Admin: 08/30/16 18:00 Dose: 1 applic Pantoprazole Sodium (Protonix Ec Tab) 40 mg PO DAILY [facility] Last Admin: 08/30/16 09:40 Dose: 40 mg Tramadol HCl (Ultram) 50 mg PO TID PRN PRN Reason: Pain, moderate (4-7) Last Admin: 08/30/16 21:43 Dose: 50 mg Physical Exam - Constitutional Appears: No Acute Distress - Head Exam Head Exam: NORMOCEPHALIC - Eye Exam Eye Exam: Normal appearance Pupil Exam: NORMAL ACCOMODATION - ENT Exam ENT Exam: Mucous Membranes Moist, Normal Oropharynx - Neck Exam Neck exam: Positive for: Normal Inspection - Respiratory Exam Respiratory Exam: Clear to Auscultation Bilateral, NORMAL BREATHING PATTERN - Cardiovascular Exam Cardiovascular Exam: REGULAR RHYTHM, +S1, +S2 - GI/Abdominal Exam GI & Abdominal Exam: Normal Bowel Sounds, Soft Additional comments: no tenderness - Extremities Exam Extremities exam: Positive for: full ROM, normal inspection - Back Exam Back exam: NORMAL INSPECTION - Neurological Exam Neurological exam: Alert Additional comments: oriented to place and self - Skin Skin Exam: Dry, Warm - Additional Findings Additional findings: Palliative performance scale rating 60% Results - Vital Signs Recent Vital Signs: Last Vital Signs Temp 98.5 F 08/31/16 09:15 Pulse 74 08/31/16 09:15 Resp 18 08/31/16 09:15 BP 134/69 08/31/16 09:15 Pulse Ox 100 08/31/16 09:15 - Labs Result Diagrams: 08/31/16 07:00 08/29/16 06:36 Labs: Laboratory Results - last 24 hr 08/31/16 08/31/16 07:00 07:00 WBC 7.4 RBC 3.94 Hgb 9.9 L Hct 32.1 L MCV 81.5 MCH 25.1 MCHC 30.8 L RDW 27.4 H Plt Count 462 H MPV 9.1 Gran % 59.8 Lymph % (Auto) 26.5 [place] % (Auto) 8.9 H Eos % (Auto) 4.0 Baso % (Auto) 0.8 Gran # 4.43 Lymph # 2.0 [place] # 0.7 H Eos # 0.3 Baso # 0.06 Phosphorus 3.9 Magnesium 1.9 Assessment & Plan - Assessment and Plan (Free Text) Assessment: 80 year old female admitted with shortness of breath and hypoxemia which has since resolved. She has a history of recent GI bleed, atrial fibrillation with RVR, dementia, CVA, RCC s/p right nephrectomy. The patient is alert and oriented to place and self. She is forgetful. She was able to focus on the conversation at hand and did ask for clarification of things when she did not understand. The patient and I spoke about advance care planning. I explained the purpose of an Advanced Directive. She states she does not have a directive nor does she have a health care proxy. We spoke specifically about resuscitation wishes. Benefits and burdens of CPR/intubation explained .The patient states she would not want to have CPR or to be intubated. I asked if she wanted to assign a health care proxy. She is unsure of whom she would designate as her health care surrogate. I will speak with her again tomorrow. If she is consistent in her wishes, I will complete a POLST with her. Time spent in goals of care and advance care planning discussion, 30 minutes Plan: Will assist with advance care planning
[2016-08-31] MEDS: Pantoprazole 40 mg EC Tab PO SCH (10:28)
[2016-08-31] MEDS: Nystatin 100,000 Units/gm Topical Pow(15 gm) TOP SCH (10:28)
[2016-08-31 10:30] VITALS: PULSE 69
--- NOTE | 2016-08-31 10:39 | PN ---
DATE: 08/31/2016 The patient is asymptomatic. PHYSICAL EXAMINATION: VITAL SIGNS: Blood pressure is 134/69, heart rate is in the 70s. NECK: Negative JVD. LUNGS: Without rales. HEART: Reveals S1, S2. EXTREMITIES: Without edema. LABORATORIES: The hemoglobin is 9.9. Chemistries: BUN and creatinine are 26 and 1.5. IMPRESSION: 1. Resolution of Clostridium difficile after fecal transplantation. 2. Congestive heart failure symptoms are resolved. 3. Paroxysmal atrial fibrillation, now back in normal sinus rhythm. 4. Pulmonary hypertension. 5. Anemia. Given these findings, we will discontinue her metoprolol. Given her first degree heart block, we tommy l continue low-dose digoxin. Lasix is once a day. Oswald Fonseca MD cc: [id number] TT: 08/31/2016 10:38:57 Confirmation # [id number] Dictation # [id number] en
--- NOTE | 2016-08-31 14:20 | CP.PCM.PN ---
Subjective - Date & Time of Evaluation Date of Evaluation: 08/31/16 Time of Evaluation: 11:30 - Subjective Subjective: Follow up Nephrology Consultation: Assessment: Acute Kidney Injury likely contrast nephropathy and hemodynamic: resolving Chronic Kidney Disease Stage 3 (N18.3) with 1,3 gram proteinuria possibly due to HTN, age related decline, and s/p Rt nephrectomy due to hx of RCC Anemia chronic, Hypertension controlled (I12.9) Vit D insufficiency with secondary hyperparathyroidism Hypoxia ? CHF with severe pulmonary HTN (RVSP 81 mm Hg) and moderate to severe LVH hx of dementia Plan continue with her lasix Hypertension control with meds as ordered. resume losartan 50 mg at this time. she is off beta-khloe due to AV block as per cardiology She is already on statin started on vit D supplement 1000 unit/day, iron 324 mg TID Dose meds/antibiotics for reduced GFR. Avoid fleets enema/magnesium based laxatives. Avoid nephrotoxins/NSAIDs anemia management as per jazlyn Further work up as per primary team Thanks for allowing me to participate in care of your patient. Will follow patient with you. Please call if any Qs Dr Jt Lemon Office: [phone] Reason for consult: CKD and need for contrast study, PATRICIA HPI: Pt is a 80 y/o F with hx of hypertension (20 years) , renal cell cancer s/ p unilateral total nephrectomy, CKD stage 3 with baseline cr 1.4-1.7 since 2017 , anemia, A fib recently admitted with dizziness ? syncope. found to have anemia and got PRBC transfusion and had GI work up with EGD/colonoscopy. she was seen by [facility] and given IV iron. later she got d/c to rehab and then home. She came with shortness of breath and hypoxia, seen by cardio, pulmonary. has abnormal CXR concerns for aortic aneurysm/dissection and plan for STAT CTA study hence renal consulted since she has CKD and needed contrast exposure. ROS: she feels fine now. denies SOB/chest pain/nausea or urinary complaints Physical Examination: General Appearance: Comfortable, in no acute respiratory distress, co-operative . Vitals reviewed and noted as below Lungs: Normal respiratory rate/effort. Breath sounds bilateral equal and clear except few basal crackle Heart: Normal rate. s1s2 normal. No rub or gallop. Extremities: no edema. No varicose veins Neurological: Patient is alert, awake and oriented but forgetful. No focal deficit. Strength bilateral appropriate and equal Skin: Warm and dry. Normal turgor. No rash. Palpitation: Normal elasticity for age Abdomen: Abdomen is soft. Bowel sounds +. There is no abdominal tenderness, no guarding/rigidity or organomegaly Psych: lack insight and has normal affect/mood MSK: no joint tenderness or swelling. Digits and nails normal, no deformity : kidney or bladder not palpable Labs/imaging/EKG reviewed. Past medical history, past surgical history,social history, allergy reviewed and noted as below FAMILy HX; no hx of CKD. non contributory work up: UA: [address] 2017: s/p Rt nephrectomy, left kidney unremarkable TSAT 9% Ferritin 540 Vit D 21 PTH 229 CTA: no aneurysm or dissection but has pleural effusion Objective - Vital Signs/Intake and Output Vital Signs (last 24 hours): Temp Pulse Resp BP Pulse Ox 98.5 F 74 18 134/69 100 08/31/16 09:15 08/31/16 09:15 08/31/16 09:15 08/31/16 10:27 08/31/16 09:15 Intake and Output: 08/31/16 08/31/16 06:59 18:59 Intake Total 780 Output Total 500 Balance 280 - Medications Medications: Current Medications Atorvastatin Calcium (Lipitor) 20 mg PO DAILY [facility] Last Admin: 08/31/16 10:28 Dose: 20 mg Cholecalciferol (Vitamin D) 1,000 iu PO DAILY [facility] Last Admin: 08/31/16 10:28 Dose: 1,000 iu Digoxin (Lanoxin) 0.125 mg PO DAILY [facility] Last Admin: 08/31/16 10:27 Dose: 0.125 mg Donepezil HCl (Aricept) 10 mg PO HS [facility] Last Admin: 08/30/16 21:43 Dose: 10 mg Ferrous Gluconate (Fergon) 324 mg PO TID [facility] Last Admin: 08/31/16 10:27 Dose: 324 mg Furosemide (Lasix) 40 mg PO DAILY [facility] Last Admin: 08/31/16 10:27 Dose: 40 mg Hydralazine HCl (Apresoline) 5 mg IVP Q6 [facility] Last Admin: 08/31/16 06:17 Dose: Not Given Cefepime HCl (Maxipime 1gm) 1 gm in 100 mls @ 100 mls/hr IVPB [facility] PRN Reason: Protocol Last Admin: 08/30/16 21:45 Dose: 100 mls/hr Losartan Potassium (Cozaar) 50 mg PO DAILY [facility] Nystatin (Nystop Topical Powder) 0 gm TOP BID [facility] Last Admin: 08/31/16 10:28 Dose: 1 applic Pantoprazole Sodium (Protonix Ec Tab) 40 mg PO DAILY [facility] Last Admin: 08/31/16 10:28 Dose: 40 mg Tramadol HCl (Ultram) 50 mg PO TID PRN PRN Reason: Pain, moderate (4-7) Last Admin: 08/30/16 21:43 Dose: 50 mg - Labs Labs: 08/31/16 07:00 08/29/16 06:36 PT 20.1 Seconds (9.9-11.8) H 08/27/16 13:15 INR 1.86 (0.93-1.08) H 08/27/16 13:15 APTT 37.0 Seconds (23.7-30.8) H 08/27/16 13:15
--- NOTE | 2016-08-31 14:39 | PN ---
DATE: 08/31/2016 Seen and examined at the bedside earlier today. The patient has no new complaints. She did report h aving a bowel movement that was formed. No reports of any melena or bright red blood. She has O2 on p.r.n. Denies any shortness of breath or chest pain. VITAL SIGNS: Temperature is 98.5, blood pressure 134/69, pulse 74, respirations 18, 100% nasal cannu la. LABORATORIES: Today, H and H is 9.9, hematocrit is 32.1, platelets of 462. Her phos is 3.9, mag 1.9 . PHYSICAL EXAMINATION: HEENT: Sclera is anicteric. NECK: Supple. CARDIAC: S1, S2. LUNG SOUNDS: Decreased breath sounds at the bases, but no wheezing. ABDOMEN: With bowel sounds, soft, not distended, nontender on palpation. EXTREMITIES: No edema. NEUROLOGIC: Awake, alert, and oriented. ASSESSMENT: An 80-year-old female with history of renal cell carcinoma, status post nephrectomy, chr onic kidney disease, peptic ulcer disease and angiodysplasia. Came with shortness of breath. CT ang io showing small bilateral pleural effusion. Also had lung scan that showed low probability for pulm onary embolism, with anemia. H and H has been stable. She just had recent colonoscopy, found to hav e angiodysplasia bipolar coagulation probe and some ulcers, history of pulmonary hypertension a nd urinary tract infection. PLAN: Continue to monitor H and H. It has been steady. The patient is on IV antibiotics, cefepime. She is on iron supplements, on PPI. History of atrial fibrillation, now in sinus. The patient is waiting for subacute rehab. The patient was seen and case discussed with Dr. Gaytan. Elyse BORRERO cc: [id number] TT: 08/31/2016 14:38:34 Confirmation # [id number] Dictation # [id number] en
--- NOTE | 2016-08-31 16:30 | IP.NPCORE ---
Heart Failure Core Measure - Heart Failure Ejection Fraction: 40 % or Greater Left Ventricular Function to be assessed after discharge: No [id number] Inhibitor Prescribed: No Contraindication/Reason for not providing: patient ef normal, >40%, currently on ARB Beta-Adrian Prescribed: Bisoprolol, Carvedilol, Metoprolol Succinate (patient on Metoprolol 25mg bid), None Contraindication/Reason for not providing: patient is on beta adrian, Metoprolol tartrate 25 mg bid Angiotensin II Receptor Adrian Prescribed: Yes AnticoagulationTherapy for Atrial Fibrillation/Atrialflutter: No Contraindication/Reason for not providing: not being treated for afib, Aldosterone Antagonist Prescribed: No Contraindication/Reason for not providing: not systolic chf, appears to be diastolic with normal ef Hydralazine Nitrate Prescribed: Yes Implantable Cardioverter Defibrillator Therapy: No Contraindication/Reason for not providing: ef > 40% not indicated Cardiac Resynchronization Therapy Prescribed: No Contraindication/Reason for not providing: ef >40% - Follow up Will be discharged to: Home Follow Up Date (must be within 7 days from discharge): 09/04/16 Follow Up Time: 09:00
[2016-08-31 16:31] VITALS: BP 140/72; PULSE 80
--- NOTE | 2016-08-31 22:11 | CP.PCM.DIS ---
Provider - Provider Date of Admission: 08/27/16 14:18 Attending physician: Alberto Akins MD Primary care physician: Amador Crum MD Consults: Cardio: Raymundo Pulm: Luis GI: Lukas Nephro: Xochilt Psych: [place]urton Palliatve: Paramonte Time Spent in preparation of Discharge (in minutes): 45 Diagnosis - Discharge Diagnosis (1) A-fib Status: Chronic Priority: Medium Comment: No anticoagulation due to bleeding risk (2) Acute on chronic renal insufficiency Status: Acute Priority: High Comment: Secondary to necessary contrast-study (3) Anemia Status: Chronic Priority: Medium (4) CHF exacerbation Status: Suspected Priority: High (5) Dyspnea Status: Resolved Priority: Medium Hospital Course - Lab Results Lab Results: Most Recent Lab Values WBC 7.4 10^3/ul (4.5-11.0) 08/31/16 07:00 RBC 3.94 10^6/uL (3.5-6.1) 08/31/16 07:00 Hgb 9.9 gm/dL (12.0-16.0) L 08/31/16 07:00 Hct 32.1 % (36.0-48.0) L 08/31/16 07:00 MCV 81.5 fL (80.0-105.0) 08/31/16 07:00 MCH 25.1 pg (25.0-35.0) 08/31/16 07:00 MCHC 30.8 g/dl (31.0-37.0) L 08/31/16 07:00 RDW 27.4 % (11.5-14.5) H 08/31/16 07:00 Plt Count 462 10^3/uL (120.0-450.0) H 08/31/16 07:00 MPV 9.1 fl (7.0-11.0) 08/31/16 07:00 Gran % 59.8 % (50.0-68.0) 08/31/16 07:00 Lymph % (Auto) 26.5 % (22.0-35.0) 08/31/16 07:00 [place] % (Auto) 8.9 % (1.0-6.0) H 08/31/16 07:00 Eos % (Auto) 4.0 % (1.5-5.0) 08/31/16 07:00 Baso % (Auto) 0.8 % (0.0-3.0) 08/31/16 07:00 Gran # 4.43 (1.4-6.5) 08/31/16 07:00 Lymph # 2.0 (1.2-3.4) 08/31/16 07:00 [place] # 0.7 (0.1-0.6) H 08/31/16 07:00 Eos # 0.3 (0.0-0.7) 08/31/16 07:00 Baso # 0.06 K/mm3 (0.0-2.0) 08/31/16 07:00 Neutrophils % (Manual) 81 % (50.0-70.0) H 08/26/16 06:45 Lymphocytes % (Manual) 14 % (22.0-35.0) L 08/26/16 06:45 Monocytes % (Manual) 4 % (1.0-6.0) 08/26/16 06:45 Eosinophils % (Manual) 1 % (0.0-3.0) 08/26/16 06:45 Platelet Evaluation Normal (NORMAL) 08/26/16 06:45 Hypochromasia 1+ 08/26/16 06:45 Poikilocytosis (manual Slight 08/26/16 06:45 Anisocytosis (manual) 1+ 08/26/16 06:45 Microcytosis (manual) 1+ 08/26/16 06:45 Tear Drop Cells Slight 08/26/16 06:45 Ovalocytes Slight 08/26/16 06:45 Muir Cells Slight 08/26/16 06:45 PT 20.1 Seconds (9.9-11.8) H 08/27/16 13:15 INR 1.86 (0.93-1.08) H 08/27/16 13:15 APTT 37.0 Seconds (23.7-30.8) H 08/27/16 13:15 D-Dimer, Quantitative 0.97 mg/L FEU (0-0.50) H 08/26/16 09:22 pCO2 46 mm/Hg (35-45) H 08/27/16 05:40 pO2 117.0 mm/Hg (80-100) H 08/27/16 05:40 HCO3 28.5 mmol/L (21-28) H 08/27/16 05:40 ABG pH 7.40 (7.35-7.45) 08/27/16 05:40 ABG Total CO2 29.9 mmol.L (22-28) H 08/27/16 05:40 ABG O2 Saturation 99.1 % (95-98) H 08/27/16 05:40 ABG O2 Content 18.1 ML/dl (15-23) 08/27/16 05:40 ABG Base Excess 3.0 mmol/L (-2.0-3.0) 08/27/16 05:40 ABG Hemoglobin 13.3 g/dL (11.7-17.4) 08/27/16 05:40 ABG Carboxyhemoglobin 2.0 % (0.5-1.5) H 08/27/16 05:40 POC ABG HHb (Measured) 0.9 % (0-5) 08/27/16 05:40 ABG Methemoglobin 1.2 % (0.0-3.0) 08/27/16 05:40 ABG O2 Capacity 18.3 mL/dl (16-24) 08/27/16 05:40 Hgb O2 Saturation 95.9 % (95.0-98.0) 08/27/16 05:40 FiO2 36.0 % 08/27/16 05:40 Sodium 136 mmol/L (132-148) 08/29/16 06:36 Potassium 4.5 mmol/L (3.6-5.0) 08/29/16 06:36 Chloride 101 mmol/L (98-107) 08/29/16 06:36 Carbon Dioxide 25 mmol/L (21-33) 08/29/16 06:36 Anion Gap 15 (10-20) 08/29/16 06:36 BUN 26 mg/dL (7-21) H 08/29/16 06:36 Creatinine 1.5 mg/dL (0.5-1.4) H 08/29/16 06:36 Est GFR ( Amer) 40 08/29/16 06:36 Est GFR (Non-Af Amer) 33 08/29/16 06:36 Random Glucose 102 mg/dL (70-110) 08/29/16 06:36 Calcium 8.9 mg/dL (8.4-10.5) 08/29/16 06:36 Phosphorus 3.9 mg/dL (2.5-4.5) 08/31/16 07:00 Magnesium 1.9 mg/dL (1.7-2.2) 08/31/16 07:00 Iron 26 ug/dL (45-180) L 08/26/16 07:05 TIBC 296 ug/dL (265-497) 08/26/16 07:05 % Saturation 9 % (20-55) L 08/26/16 07:05 Ferritin 540.0 ng/mL 08/26/16 07:05 Total Bilirubin 0.7 mg/dL (0.2-1.3) 08/29/16 06:36 AST 37 U/L (15-39) 08/29/16 06:36 ALT 35 U/L (7-56) 08/29/16 06:36 Alkaline Phosphatase 117 U/L (38-133) 08/29/16 06:36 Lactate Dehydrogenase 620 U/L (333-699) 08/26/16 07:05 Total Creatine Kinase 43 U/L (35-230) 08/26/16 07:05 Troponin I 0.06 ng/mL 08/27/16 03:20 NT-Pro-B Natriuret Pep 5030 pg/mL (0-450) H 08/26/16 07:05 Total Protein 7.6 g/dL (5.8-8.3) 08/29/16 06:36 Albumin 3.4 g/dL (3.0-4.8) 08/29/16 06:36 Globulin 4.2 gm/dL 08/29/16 06:36 Albumin/Globulin Ratio 0.8 (1.1-1.8) L 08/29/16 06:36 Vitamin B12 411 pg/mL (239-931) 08/26/16 07:05 RBC Folate 827 ng/mL RBC (>280) 08/26/16 07:05 Procalcitonin 0.18 NG/ML (0.19-0.49) L 08/26/16 07:05 Free T4 1.63 ng/dL (0.78-2.19) 08/26/16 07:05 Thyroxine (T4) 11.0 ug/dL (5.5-11.0) 08/26/16 07:05 Total T3 1.24 ng/mL (0.97-1.69) 08/26/16 07:05 TSH 3rd Generation 0.56 mIU/mL (0.46-4.68) 08/26/16 07:05 Urine Color Yellow (YELLOW) 08/29/16 01:45 Urine Appearance Clear (CLEAR) 08/29/16 01:45 Urine pH 7.0 (4.7-8.0) 08/29/16 01:45 Ur Specific [place] 1.015 (1.005-1.035) 08/29/16 01:45 Urine Protein 100 mg/dL (<30 mg/dL) H 08/29/16 01:45 Urine Glucose (UA) Negative mg/dL (NEGATIVE) 08/29/16 01:45 Urine Ketones Negative mg/dL (NEGATIVE) 08/29/16 01:45 Urine Blood Trace-lysed (NEGATIVE) H 08/29/16 01:45 Urine Nitrate Negative (NEGATIVE) 08/29/16 01:45 Urine Bilirubin Negative (NEGATIVE) 08/29/16 01:45 Urine Urobilinogen 0.2 E.U./dL (<1 E.U./dL) 08/29/16 01:45 Ur Leukocyte Esterase Negative Chidi/uL (NEGATIVE) 08/29/16 01:45 Urine RBC 1 - 3 /hpf (0-2) 08/29/16 01:45 Urine WBC 1 - 3 /hpf (0-6) 08/29/16 01:45 Ur Epithelial Cells 1 - 3 /hpf (0-5) 08/29/16 01:45 Urine Bacteria Rare (NEG) 08/29/16 01:45 Ur Random Creatinine 82 mg/dL 08/29/16 01:45 U Random Total Protein 1355 mg/g creat (21-161) H 08/28/16 04:44 Urine Microalbumin 298.2 mg/L (0.0-16.6) H 08/28/16 04:44 Digoxin 1.1 ng/mL (0.8-2.0) 08/26/16 07:05 Blood Type AB POSITIVE 08/27/16 13:55 Antibody Screen Negative 08/27/16 13:55 BBK History Checked Patient has bt 08/27/16 13:55 - Hospital Course Hospital Course: This is an 80 yo AA F with PMH of HTN, Anxiety, history of renal cancer/mass s/ p R nephrectomy, sciatica, hypercholesterolemia, prior tobacco use history, and atrial fibrillation readmitted to [facility] after discharge 1 day prior with shortness of breath with desaturations on room air. While here, suspicion was raised for possible acute aortic dissection by radiology, so after discussion with Nephro, a CTA was obtained despite patient having only one kidney in the setting of CKD. While here, she was also seen by Cardio, Pulm, GI, Nephro, Psych, and Palliative. As per Cardio, patient's metoprolol was stopped due to pauses. As per Nephro, she was restarted on Losartan 50mg PO daily for blood pressure control. As per GI, patient should follow up as an outpatient for repeat scoping in ~1 month. As per Pulm, patient should obtain PFTs as an outpatient in the future for further pulmonary assessment. While here, patient initially continued to exhibit some disorientation (always oriented to self and location, but frequently not oriented to year, and unclear as to her causes/ presentations for prior admissions), so Psych was asked to assess for capacity. As per Psych, collateral information from family would be required for further assessment. However, later in the admission, patient regained full orientation, and was cleared to return home. She was also found to have Enterococcus faecalis in her urine, resistant to Rocephin, so she was switched to Cefepime while inpatient, and transitioned to PO Cipro at time of discharge. She was instructed to continue to hold home anticoagulation with coumadin, to stop taking her metoprolol, to take a 1-week course of ciprofloxacin for her UTI , and to resume her Losartan for blood pressure (new script provided). Scripts were electronically transmitted to the in-house pharmacy for availability on discharge. Patient was also instructed to follow up with her PMD (Dr. Crum) within 1 week of discharge. She expressed understanding and agreement with these instructions. All questions were answered to her satisfaction, and then patient was discharged. Patient seen, examined, and discussed with attending, Dr. Maldonado. Discharge Exam - Additional Findings Additional findings: - Constitutional Appears: Well, Non-toxic, No Acute Distress, Other (Resting comfortably in bed) - Head Exam Head Exam: ATRAUMATIC, NORMAL INSPECTION, NORMOCEPHALIC - Eye Exam Eye Exam: EOMI, Normal appearance. absent: Conjunctival injection, Scleral icterus Pupil Exam: absent: Irregular, Unequal - ENT Exam ENT Exam: Mucous Membranes Moist. absent: Mucous Membranes Dry - Neck Exam Neck exam: Normal Inspection - Respiratory Exam Respiratory Exam: Clear to PA & Lateral, Normal breathing pattern at rest but unable to take full deep breaths when instructed for ausculatation, Wearing NC at 2L. absent: Rales, Rhonchi, Wheezes, Respiratory Distress, Naren Cyanosis, Tachypnea - Cardiovascular Exam Cardiovascular Exam: REGULAR RHYTHM, RRR, +S1, +S2. absent: Bradycardia, Tachycardia, Irregular Rhythm, +S4 - GI/Abdominal Exam GI & Abdominal Exam: Normal Bowel Sounds, Soft, Unremarkable. absent: Diminished Bowel Sounds, Distended, Firm, Hyperactive Bowel Sounds, Hypoactive Bowel Sounds, Rigid, Tenderness, Pulsatile mass - Extremities Exam Extremities Exam: No calf tenderness/pedal edema/erythema bilaterally, +1 dorsalis pedis pulses bilaterally, +2 radial pulses bilaterally - Neurological Exam Neurological Exam: Awake and alert, moving all extremities spontaneously, Following all commands - Psychiatric Exam Psychiatric exam: Normal affect, Normal mood, some forgetfulness - Skin Skin Exam: Dry, Intact, Normal Color (some chronic age-related skin changes in bilateral lower extremities), Warm Discharge Plan - Discharge Medications Prescriptions: Ciprofloxacin HCl [Cipro] 500 mg PO Q12 #14 tablet Losartan [Cozaar] 50 mg PO DAILY #30 tab - Follow Up Plan Condition: FAIR Disposition: HOME/ ROUTINE Instructions: Atrial Flutter (DC), Atrial Fibrillation (DC), Urinary Tract Infection in Women (DC), Chronic Kidney Disease (DC), Impaired Kidney Function ( DC) Additional Instructions: Stop taking your home Metoprolol (also called Lopressor). Do NOT resume your Warfarin (also called Coumadin). Restart Losartan 50mg once a day; a prescription has been filled for 1 month. You have been given a prescription for Ciprofloxacin (an antibiotic). Take 1 pill twice a day, for 7 days. Take with food. Do not stop taking the antibiotic early. Take all other medications as prescribed. Please follow up with your Primary Medical Doctor (Dr. Crum) within 1 week. Follow up with Dr. Gaytan (GI) in one month. If you experience worsening shortness of breath, or other concerning symptoms, please call your PMD's office or return to the hospital immediately. Referrals: Amador Crum MD [Primary Care Provider] - 7 Days Ryan Gaytan MD [Medical Doctor] - 4 Week
--- NOTE | 2016-09-01 01:05 | PN ---
DATE: 08/31/2016 ADDENDUM: SUBJECTIVE: This patient was seen and evaluated earlier. This is an addendum to gastrointestinal pr ogress report dictated by Elyse Moran APN. The patient is scheduled to be discharged today. Discus sed with the patient at length today. PHYSICAL EXAMINATION: ABDOMEN: Soft. There is no mass palpable. IMPRESSION AND PLAN: Discussed with the patient at length. History of gastric ulcers. Needs a repe at endoscopy in about 6-8 weeks' time. Advised to continue the PPI and given the contact information for her to schedule the procedure for the repeat endoscopy. Thank you very much for allowing us to participate in the care of the patient Ryan Gaytan MD cc: [id number] TT: 09/01/2016 01:04:16 Confirmation # [id number] Dictation # [id number]
== END 2016-08-31 18:02 | disposition home or self-care (01) | DRG 292 ==
LOC: ED 05:45 → ERH 08:27 → 2RSO 13:53 → OBSVTOIN 08-27 14:18 → 2RSO 08-27 23:32 → 3RNO 08-28 13:30
PROVIDERS: ADMIT Internal Medicine; ATTEND Internal Medicine
DX: I13.0 Hypertensive heart and chronic kidney disease with heart failure and stage 1 through stage 4 chronic kidney disease, or unspecified chronic kidney disease (principal); I50.30 Unspecified diastolic (congestive) heart failure; N17.9 Acute kidney failure, unspecified; F03.90 Unspecified dementia, unspecified severity, without behavioral disturbance, psychotic disturbance, mood disturbance, and anxiety; I27.2 Other secondary pulmonary hypertension; I48.92 Unspecified atrial flutter; I42.9 Cardiomyopathy, unspecified; N39.0 Urinary tract infection, site not specified; I45.2 Bifascicular block; N25.81 Secondary hyperparathyroidism of renal origin; I50.9 Heart failure, unspecified; I48.0 Paroxysmal atrial fibrillation; N18.3 Chronic kidney disease, stage 3 (moderate); J44.9 Chronic obstructive pulmonary disease, unspecified; F41.9 Anxiety disorder, unspecified; E78.00 Pure hypercholesterolemia, unspecified; M54.30 Sciatica, unspecified side; E78.5 Hyperlipidemia, unspecified; R09.02 Hypoxemia; K55.20 Angiodysplasia of colon without hemorrhage; D50.0 Iron deficiency anemia secondary to blood loss (chronic); Z85.528 Personal history of other malignant neoplasm of kidney; I44.0 Atrioventricular block, first degree; Z90.5 Acquired absence of kidney; B96.89 Other specified bacterial agents as the cause of diseases classified elsewhere; E55.9 Vitamin D deficiency, unspecified; I48.2 Chronic atrial fibrillation; Z79.01 Long term (current) use of anticoagulants; Z87.891 Personal history of nicotine dependence

== ENCOUNTER 2016-09-03 09:35 | Observation (INO) | payer MEDICARE ==
[2016-09-03 09:35] VITALS: PULSE 69
[2016-09-03 09:43] VITALS: BMI 22.8
--- NOTE | 2016-09-03 10:02 | ED PDOC ---
Arrival/HPI - General Historian: Patient - History of Present Illness Time/Duration: 4-6 hours Symptom Onset: Sudden Symptom Course: Worsening Context: Home <Bri Esparza - Last Filed: 09/03/16 14:43> <Huan Szymanski - Last Filed: 09/03/16 16:19> - General Chief Complaint: Shortness Of Breath Time Seen by Provider: 09/03/16 09:38 - History of Present Illness Narrative History of Present Illness (Text): 09/03/16 10:14 Patient is an 80 y/o with pmh of afib, RCC s/p right nephrectomy, HTN, PATRICIA on CKD, sciatica, hypercholesterolemia, Anemia and chf presenting with sob. Patient was recently discharged home on 08/31/16), patient states when he got home, things were fine until last night when she was sleeping she felt sob. The sob continued this AM, thus patient decided to come in. Patient denies cp, n/v/d , denies abdominal pain, denies dysuria. Denies cough. (Bri Esparza) Past Medical History - Provider Review Nursing Documentation Reviewed: Yes - Travel History Have you recently traveled outside [place] w/in the past 3 mons?: No - Infectious Disease Hx of Infectious Diseases: None - Tetanus Immunization Tetanus Immunization: >10 years Ago - Reproductive Menopause: Yes - Cardiac Hx Cardiac Disorders: Yes Hx Hypertension: Yes - Pulmonary Hx Respiratory Disorders: No - Neurological HX Cerebrovascular Accident: Yes - HEENT Hx HEENT Disorder: No - Renal Hx Renal Disorder: Yes Hx Renal Cancer: Yes Other/Comment: Right nephrectomy - Endocrine/Metabolic Hx Endocrine Disorders: No - Hematological/Oncological Hx Blood Disorders: No - Integumentary Hx Dermatological Disorder: No - Musculoskeletal/Rheumatological Hx Arthritis: Yes - Gastrointestinal Hx Gastrointestinal Disorders: No - Genitourinary/Gynecological Hx Genitourinary Disorders: No - Psychiatric Hx Psychophysiologic Disorder: Yes Hx Anxiety: Yes Hx Substance Use: No - Surgical History Other/Comment: Right nephrectomy - Anesthesia Hx Anesthesia: Yes Hx Anesthesia Reactions: No Hx Malignant Hyperthermia: No <Bri Esparza - Last Filed: 09/03/16 14:43> Family/Social History - Physician Review Nursing Documentation Reviewed: Yes Family/Social History: Hypertension, CAD/DE Smoking Status: Former Smoker Hx Alcohol Use: No Hx Substance Use: No <IsaiasBri - Last Filed: 09/03/16 14:43> Allergies/Home Meds <NildageraldineBri - Last Filed: 09/03/16 14:43> <Huan Szymanski Britta - Last Filed: 09/03/16 16:19> Allergies/Adverse Reactions: Allergies No Known Allergies Allergy (Verified 09/03/16 14:05) Home Medications: Home Meds Medication Instructions Recorded Confirmed oxyCODONE/Acetaminophen [Percocet 1 tab PO Q6 PRN 08/26/16 09/03/16 5/325 mg Tab] Review of Systems - Review of Systems Constitutional: Normal Eyes: Normal ENT: Normal Respiratory: SOB. absent: Cough, Sputum, Wheezing Cardiovascular: Normal Gastrointestinal: Normal Genitourinary Female: Normal Musculoskeletal: Normal Skin: Normal Neurological: Normal Endocrine: Normal Hemo/Lymphatic: Normal Psychiatric: Normal <NildaluciaBri banuelos - Last Filed: 09/03/16 14:43> Physical Exam Temperature: Afebrile Blood Pressure: Normal Pulse: Regular Respiratory Rate: Normal Appearance: Positive for: Well-Appearing, Non-Toxic, Comfortable Pain Distress: None Mental Status: Positive for: Alert and Oriented X 3 - Systems Exam Head: Present: Atraumatic, Normocephalic Mouth: Present: Dry Neck: Present: Normal Range of Motion. No: JVD Respiratory/Chest: Present: Clear to Auscultation, Good Air Exchange. No: Respiratory Distress, Accessory Muscle Use, Wheezes, Rales, Retracting, Rhonchi , Tachypneic Cardiovascular: Present: Regular Rate and Rhythm, Normal S1, S2. No: Murmurs, Tachycardic, Bradycardic Abdomen: Present: Normal Bowel Sounds. No: Tenderness, Distention, Rebound, Guarding Upper Extremity: Present: Normal Inspection. No: Cyanosis, Edema Lower Extremity: Present: Normal Inspection. No: Edema Neurological: Present: GCS=15 Skin: Present: Warm, Dry, Rashes, Normal Color Psychiatric: Present: Alert, Oriented x 3, Normal Insight, Normal Concentration <Aliyah Esparzala - Last Filed: 09/03/16 14:43> Medical Decision Making Re-evaluation Time: 11:45 Reassessment Condition: Improving,but remains with symptoms - RAD Interpretation [employer]aire[employer]: Radiologist - EKG Interpretation Interpreted by ED Physician: Yes Type: 12 lead EKG Comparison: Similar to previous EKG (except more pronouced V2 St depression) <Bri Esparza - Last Filed: 09/03/16 14:43> <Huan Szymanski - Last Filed: 09/03/16 16:19> ED Course and Treatment: 09/03/16 10:25 Patient is an 80 y/o with pmh of afib, RCC s/p right nephrectomy, HTN, PATRICIA on CKD, sciatica, hypercholesterolemia, Anemia and CHF presenting with sob. Differentials: chf exacerbation, pneumonia, bronchitis. r/o PE Plan: cbc, cmp, pt/ptt, cardiac iso, bnp chest x-ray and ekg and reevaluate. 09/03/16 11:34 probnp 3120, troponin of 0.09, ekg with no significant changes from prior ekg ( 08/29/16) , with more pronounced V2 ST depression on EKG. No active disease on chest x-ray. 09/03/16 12:[address] Crum, patient to be admitted for observation under Dr Crum's service. (Bri Esparza) Patient Seen With Resident: In agreement with resident note. Patient was seen and evaluated with resident, came up with plan and treatment together. (Huan Szymanski) - Lab Interpretations Lab Results: 09/03/16 10:46 09/03/16 10:46 Lab Results 09/03/16 11:50: Urine Color Yellow, Urine Appearance Clear, Urine pH 6.0, Ur Specific [place] 1.025, Urine Protein 100 H, Urine Glucose (UA) Negative, Urine Ketones Negative, Urine Blood Small H, Urine Nitrate Negative, Urine Bilirubin Negative, Urine Urobilinogen 0.2, Ur Leukocyte Esterase Trace H, Urine RBC 5 - 10, Urine WBC 2 - 5, Ur Epithelial Cells 6 - 8, Amorphous Sediment Few, Urine Bacteria Many, Coarse Granular Casts Small H, Urine Other Fiber 09/03/16 10:46: PT 12.3 H, INR 1.14 H, APTT 27.3 09/03/16 10:46: Sodium 142, Potassium 4.2, Chloride 105, Carbon Dioxide 25, Anion Gap 16, BUN 37 H, Creatinine 1.9 H, Est GFR ( Amer) 31, Est GFR ( Non-Af Amer) 25, Random Glucose 113 H, Calcium 9.7, Total Bilirubin 0.5, AST 44 H, ALT 38, Alkaline Phosphatase 122, Lactate Dehydrogenase 541, Total Creatine Kinase 34 L, Troponin I 0.09 D, NT-Pro-B Natriuret Pep 3120 H, Total Protein 8.6 H, Albumin 3.9, Globulin 4.8, Albumin/Globulin Ratio 0.8 L 09/03/16 10:46: WBC 7.2, RBC 4.37, Hgb 11.3 L, Hct 35.4 L, MCV 81.0, MCH 25.9, MCHC 31.9, RDW 26.2 H, Plt Count 411, MPV 9.5, Gran % 58.8, Lymph % (Auto) 29.9 , [place] % (Auto) 8.4 H, Eos % (Auto) 1.9, Baso % (Auto) 1.0, Gran # 4.24, Lymph # 2.2, [place] # 0.6, Eos # 0.1, Baso # 0.07 - RAD Interpretation Narrative RAD Interpretations (Text): 09/03/16 12:19 No active disease. (Bri Esparza) Radiology Orders: 09/03/16 10:01 CHEST ONE VIEW [RAD] Stat - Medication Orders Current Medication Orders: Furosemide (Lasix) 40 mg IVP DAILY ISAI Last Admin: 09/03/16 15:49 Dose: 40 mg <Bri Esparza - Last Filed: 09/03/16 14:43> - Scribe Statement The provider has reviewed the documentation as recorded by the Scribe <Huan Szymanski - Last Filed: 09/03/16 16:19> - Scribe Statement Mumtaz Fuentes Provider Scribe Attestation: All medical record entries made by the Scribe were at my direction and personally dictated by me. I have reviewed the chart and agree that the record accurately reflects my personal performance of the history, physical exam, medical decision making, and the department course for this patient. I have also personally directed, reviewed, and agree with the discharge instructions and disposition. (Huan Szymanski) Disposition/Present on Arrival - Present on Arrival Any Indicators Present on Arrival: No History of DVT/PE: No History of Uncontrolled Diabetes: No Urinary Catheter: No History of Decub. Ulcer: No History Surgical Site Infection Following: None - Disposition Have Diagnosis and Disposition been Completed?: Yes Disposition Time: 12:15 Patient Plan: Observation, Telemetry <Bri Esparza - Last Filed: 09/03/16 14:43> <Huan Szymanski - Last Filed: 09/03/16 16:19> - Disposition Diagnosis: SOB (shortness of breath), CHF (congestive heart failure) Disposition: HOSPITALIZED Patient Problems: Current Active Problems Problem Status Onset CHF (congestive heart failure) Acute SOB (shortness of breath) Acute Condition: STABLE
--- NOTE | 2016-09-03 10:48 | RAD ---
PROCEDURE: CHEST RADIOGRAPH, 1 VIEW HISTORY: sob COMPARISON: 08/27/2016 FINDINGS: LUNGS: Clear. PLEURA: No pneumothorax or pleural fluid seen. CARDIOVASCULAR: Mild cardiomegaly and aortic tortuosity OSSEOUS STRUCTURES: No significant abnormalities. VISUALIZED UPPER ABDOMEN: Normal. OTHER FINDINGS: None. IMPRESSION: No active disease.
[2016-09-03 10:49] LABS: BASO # 0.07 K/mm3 (0.0-2.0); EOS # 0.1 (0.0-0.7); EOS % 1.9 % (1.5-5.0); GRAN # 4.24 (1.4-6.5); GRAN % 58.8 % (50.0-68.0); HEMOGLOBIN 11.3 gm/dL (12.0-16.0); LYMPH # 2.2 (1.2-3.4); LYMPH % 29.9 % (22.0-35.0); MEAN CORPUSCULAR HEMOGLOBIN 25.9 pg (25.0-35.0); MEAN CORPUSCULAR HGB CONC 31.9 g/dl (31.0-37.0); MEAN PLATELET VOLUME 9.5 fl (7.0-11.0); MONO # 0.6 (0.1-0.6); MONO % 8.4 % (1.0-6.0); PLATELET COUNT 411 10^3/uL (120.0-450.0); RBC 4.37 10^6/uL (3.5-6.1); RED CELL DISTRIBUTION WIDTH 26.2 % (11.5-14.5); WHITE BLOOD COUNT 7.2 10^3/ul (4.5-11.0)
[2016-09-03 10:59] LABS: ALB/GLOB RATIO 0.8 (1.1-1.8); ALBUMIN 3.9 g/dL (3.0-4.8); CALCIUM 9.7 mg/dL (8.4-10.5)
[2016-09-03 11:00] LABS: INR 1.14 (0.93-1.08); PARTIAL THROMBOPLASTIN TIME 27.3 Seconds (23.7-30.8); PROTHROMBIN TIME 12.3 Seconds (9.9-11.8)
[2016-09-03 11:11] LABS: TROPONIN I 0.09 ng/mL
[2016-09-03 11:59] LABS: URINE APPEARANCE CLEAR (CLEAR); URINE BILIRUBIN NEGATIVE (NEGATIVE); URINE BLOOD SMALL (NEGATIVE); URINE COLOR YELLOW (YELLOW); URINE GLUCOSE (UA) NEGATIVE (NEGATIVE); URINE LEUKOCYTE ESTERASE TRACE Leu/uL (NEGATIVE); URINE NITRATE NEGATIVE (NEGATIVE); URINE PROTEIN 100 mg/dL (<30 mg/dL); URINE UROBILINOGEN 0.2 E.U./dL (<1 E.U./dL)
[2016-09-03 12:57] LABS: URINE BACTERIA MANY (NEG)
[2016-09-03 12:59] LABS: URINE AMORPHOUS SEDIMENT FEW; URINE COARSE GRANULAR CAST SMALL /hpf (0-2)
--- NOTE | 2016-09-03 15:43 | CP.PCM.CON ---
History of Present Illness - History of Present Illness History of Present Illness: Cardiology consult 09/03/16 the patient is an 80 y old woman who presents with SOB PMH Pt was recently discharged for antibiotic caused diarrhea, which resolved with fecal transplant. Her cardiac evaluation reveals EF of 75% with severe pulmonary hypertension Hx of hypertension, neg DM No pedal edema. no angina SH: former smoker ROS....14 pt ROS ....Sob which is now resolved. No angina PE woman in NAD BP 114/80 HR 90 reg neck: pos JVD lungs decreased BS, no rales noted Cor: S1S2 w 04/13 sys m Ext: No edema Labs: EKG LAHB, RBBB NS ST T changes Neg trop elevated bnp Impressions: Acute diastolic CHF Pulmonary Hypertension Hypertension COPD Hx of fecal transplant Plan IV lasix 40 BID for 48hrs Past Patient History - Infectious Disease Hx of Infectious Diseases: None - Tetanus Immunizations Tetanus Immunization: >10 years Ago - Past Medical History & Family History Past Medical History?: Yes - Past Social History Smoking Status: Former Smoker - CARDIAC Hx Cardiac Disorders: Yes Hx Hypertension: Yes - PULMONARY Hx Respiratory Disorders: No - NEUROLOGICAL HX Cerebrovascular Accident: Yes - HEENT Hx HEENT Problems: No - RENAL Hx Chronic Kidney Disease: Yes Hx Renal (Kidney) Cancer: Yes Other/Comment: Right nephrectomy - ENDOCRINE/METABOLIC Hx Endocrine Disorders: No - HEMATOLOGICAL/ONCOLOGICAL Hx Blood Disorders: No - INTEGUMENTARY Hx Dermatological Problems: No - MUSCULOSKELETAL/RHEUMATOLOGICAL Hx Arthritis: Yes - GASTROINTESTINAL Hx Gastrointestinal Disorders: No - GENITOURINARY/GYNECOLOGICAL Hx Genitourinary Disorders: No - PSYCHIATRIC Hx Psychophysiologic Disorder: Yes Hx Anxiety: Yes Hx Substance Use: No - SURGICAL HISTORY Other/Comment: Right nephrectomy - ANESTHESIA Hx Anesthesia: Yes Hx Anesthesia Reactions: No Hx Malignant Hyperthermia: No Meds Allergies/Adverse Reactions: Allergies Allergy/AdvReac Type Severity Reaction Status Date / Time No Known Allergies Allergy Verified 09/03/16 14:05 - Medications Medications: Current Medications Furosemide (Lasix) 40 mg IVP DAILY [facility] Results - Vital Signs Recent Vital Signs: Last Vital Signs Temp 98 F 09/03/16 13:30 Pulse 95 H 09/03/16 15:14 Resp 16 09/03/16 13:30 BP 114/72 09/03/16 13:30 Pulse Ox 99 09/03/16 13:30 - Labs Result Diagrams: 09/03/16 10:46 09/03/16 10:46
[2016-09-03] MEDS ORDERED: Pneumococcal 23-Valent Vaccine IM ONE (17:09)
--- NOTE | 2016-09-03 18:45 | CP.PCM.HP ---
History of Present Illness - History of Present Illness History of Present Illness: Internal Medicine/Infectious Disease H&P: September 03, 2016 80 yo AA female presenting with SOB at home brought in for observation at this time. Recent discharged from the hospital last week. PMHx: Hypertension, Anxiety, history of renal cancer/mass, sciatica, hypercholesterolemia, prior tobacco use history, atrial fibrillation. Last hospitalization showed ventricular fibrillation although it appears that occurred only once. Mass in right kidney that led to nephrectomy done by Dr. Hannon several years ago. PSHx: Nephrectomy, right side Allergies: NKDA Social Hx: No recent tobacco, EtOH, or illicit drug use. Recent loss of her brother ( occurred almost a year ago). Prior tobacco user. Active Medications Furosemide (Lasix) 40 mg IVP DAILY [facility] Last Admin: 09/03/16 15:49 Dose: 40 mg Family Hx: CAD in multiple family members ROS: no fevers, chills, nausea, vomiting, diarrhea, headaches, dizziness, chest pain , abdominal pain, melena, hematuria, hematemesis, hematochezia, SOB, wheezing, vision loss, loss of consciousness, hearing loss. She has anxiety. Present on Admission - Present on Admission Any Indicators Present on Admission: No Review of Systems - Review of Systems Systems not reviewed;Unavailable: Respiratory Distress - Constitutional Constitutional: As Per HPI - EENT Eyes: Requires Corrective Lenses Ears: As Per HPI Nose/Mouth/Throat: As Per HPI - Breasts Breasts: As Per HPI - Cardiovascular Cardiovascular: As Per HPI - Respiratory Respiratory: As Per HPI, Dyspnea ( ) - Gastrointestinal Gastrointestinal: As Per HPI - Menstruation Menstruation: Menopausal - Musculoskeletal Musculoskeletal: As Per HPI - Integumentary Integumentary: As Per HPI - Neurological Neurological: As Per HPI - Psychiatric Psychiatric: As Per HPI - Endocrine Endocrine: As Per HPI - Hematologic/Lymphatic Hematologic: Easy Bleeding, Easy Bruising Past Patient History - Infectious Disease Hx of Infectious Diseases: None - Tetanus Immunizations Tetanus Immunization: >10 years Ago - Past Medical History & Family History Past Medical History?: Yes - Past Social History Smoking Status: Former Smoker - CARDIAC Hx Cardiac Disorders: Yes Hx Cardia Arrhythmia: Yes (AFIB) Hx Congestive Heart Failure: Yes Hx Hypercholesterolemia: Yes Hx Hypertension: Yes - PULMONARY Hx Respiratory Disorders: Yes (SMOKES CIGARETTES) - NEUROLOGICAL Hx Neurological Disorder: Yes (SYNCOPE) HX Cerebrovascular Accident: Yes - HEENT Hx HEENT Problems: No - RENAL Hx Chronic Kidney Disease: Yes Hx Renal (Kidney) Cancer: Yes Other/Comment: Right nephrectomy - ENDOCRINE/METABOLIC Hx Endocrine Disorders: No - HEMATOLOGICAL/ONCOLOGICAL Hx Blood Disorders: Yes Hx Cancer: Yes (RENAL CELL CA) - INTEGUMENTARY Hx Dermatological Problems: No - MUSCULOSKELETAL/RHEUMATOLOGICAL Hx Arthritis: Yes Hx Falls: Yes - GASTROINTESTINAL Hx Gastrointestinal Disorders: Yes (CONSTIPATION) Hx Gastroesophageal Reflux: Yes - GENITOURINARY/GYNECOLOGICAL Hx Genitourinary Disorders: No - PSYCHIATRIC Hx Psychophysiologic Disorder: Yes Hx Anxiety: Yes Hx Substance Use: No - SURGICAL HISTORY Hx Surgeries: Yes Other/Comment: Right nephrectomy - ANESTHESIA Hx Anesthesia: Yes Hx Anesthesia Reactions: No Hx Malignant Hyperthermia: No Meds Allergies/Adverse Reactions: Allergies Allergy/AdvReac Type Severity Reaction Status Date / Time No Known Allergies Allergy Verified 09/03/16 14:05 Physical Exam - Constitutional Appears: Non-toxic, No Acute Distress, Chronically Ill - Head Exam Head Exam: ATRAUMATIC, NORMOCEPHALIC - Eye Exam Eye Exam: EOMI, PERRL Pupil Exam: NORMAL ACCOMODATION, PERRL - ENT Exam ENT Exam: Mucous Membranes Moist, Normal External Ear Exam, TM's Normal Bilaterally - Neck Exam Neck exam: Positive for: Full Rom, Normal Inspection - Respiratory Exam Respiratory Exam: Clear to Auscultation Bilateral, NORMAL BREATHING PATTERN. absent: Rales, Rhonchi - Cardiovascular Exam Cardiovascular Exam: REGULAR RHYTHM, JVD, Systolic Murmur - GI/Abdominal Exam GI & Abdominal Exam: Normal Bowel Sounds, Soft. absent: Distended, Tenderness - Extremities Exam Extremities exam: Positive for: full ROM, normal inspection - Neurological Exam Neurological exam: Alert, CN II-XII Intact, Oriented x3 - Psychiatric Exam Psychiatric exam: Normal Affect, Normal Mood - Skin Skin Exam: Intact, Normal Color Results - Vital Signs Recent Vital Signs: Last Vital Signs Temp 98 F 09/03/16 17:53 Pulse 104 H 09/03/16 18:00 Resp 14 09/03/16 16:46 BP 110/49 L 09/03/16 17:53 Pulse Ox 99 09/03/16 13:30 - Labs Result Diagrams: 09/03/16 10:46 09/03/16 10:46 Assessment & Plan - Assessment and Plan (Free Text) Assessment: 80 yo AA female with SOB with extensive past medical history with Acute diastolic CHF, Pulmonary hypertension, Hypertension, COPD, ulcers in the intestine (no fecal transplant history). Started on diurectics. Awaiting pulmonology evaluation. Supportive care. Monitor patient. In fluid overload leading to respiratory distress. Continue medications for hypertension, hyperlipidemia, Atrial fibrillation, and gastric ulcers.
[2016-09-03] MEDS: Oxycodone/Acetaminophen 5/325 mg Tab PO PRN (21:02)
[2016-09-04 00:22] VITALS: O2SAT 100
[2016-09-04] MEDS: Oxycodone/Acetaminophen 5/325 mg Tab PO PRN (05:11)
[2016-09-04] MEDS ORDERED: Pantoprazole 40 mg EC Tab PO SCH (06:00)
[2016-09-04 07:52] LABS: INR 1.15 (0.93-1.08); PARTIAL THROMBOPLASTIN TIME 30.1 Seconds (23.7-30.8); PROTHROMBIN TIME 12.4 Seconds (9.9-11.8)
[2016-09-04 08:03] LABS: ALB/GLOB RATIO 0.9 (1.1-1.8); ALBUMIN 3.6 g/dL (3.0-4.8); CALCIUM 9.1 mg/dL (8.4-10.5)
--- NOTE | 2016-09-04 11:02 | CP.PCM.PN ---
Subjective - Date & Time of Evaluation Date of Evaluation: 09/04/16 Time of Evaluation: 10:30 - Subjective Subjective: Cardiology fu c/o of dyspnea BP 130/ 100 Hr AFib at 116 neck jvd lungs decreased BS cor neg m ext without edema labs noted Impressions Pulmonary hypertension Afib hx of c diff resolution of CHF Plan add diltiazem for better HR control cont IV lasix Objective - Vital Signs/Intake and Output Vital Signs (last 24 hours): Temp Pulse Resp BP Pulse Ox 98.4 F 106 H 20 123/62 100 09/04/16 05:54 09/04/16 10:33 09/04/16 05:54 09/04/16 10:33 09/04/16 05:54 Intake and Output: 09/04/16 09/04/16 06:59 18:59 Intake Total 420 Output Total 600 Balance -180 - Medications Medications: Current Medications Amlodipine Besylate (Norvasc) 5 mg PO DAILY [facility] Last Admin: 09/04/16 10:33 Dose: 5 mg Atorvastatin Calcium (Lipitor) 20 mg PO DIN [facility] Last Admin: 09/03/16 19:50 Dose: 20 mg Cholecalciferol (Vitamin D) 1,000 iu PO DAILY [facility] Last Admin: 09/04/16 10:32 Dose: 1,000 iu Digoxin (Lanoxin) 0.125 mg PO 1400 [facility] Diltiazem HCl (Cardizem) 60 mg PO TID [facility] Docusate Sodium (Colace) 100 mg PO BID [facility] Last Admin: 09/04/16 10:32 Dose: 100 mg Donepezil HCl (Aricept) 5 mg PO HS [facility] Last Admin: 09/03/16 21:02 Dose: 5 mg Furosemide (Lasix) 40 mg IVP DAILY [facility] Last Admin: 09/04/16 10:11 Dose: 40 mg Hydralazine HCl (Apresoline) 25 mg PO QID [facility] Last Admin: 09/04/16 10:32 Dose: 25 mg Losartan Potassium (Cozaar) 100 mg PO DAILY [facility] Last Admin: 09/04/16 10:32 Dose: 100 mg Metoprolol Tartrate (Lopressor) 25 mg PO BID [facility] Last Admin: 09/04/16 10:33 Dose: 25 mg Oxycodone/Acetaminophen (Percocet 5/325 Mg Tab) 1 tab PO Q6H PRN PRN Reason: Pain, moderate (4-7) Stop: 09/06/16 20:14 Last Admin: 09/04/16 05:11 Dose: 1 tab Pantoprazole Sodium (Protonix Ec Tab) 40 mg PO 0600 [facility] Last Admin: 09/04/16 05:11 Dose: 40 mg - Labs Labs: 09/04/16 06:35 PT 12.4 Seconds (9.9-11.8) H 09/04/16 06:30 INR 1.15 (0.93-1.08) H 09/04/16 06:30 APTT 30.1 Seconds (23.7-30.8) 09/04/16 06:30 Assessment and Plan - Assessment and Plan (Free Text) Assessment: bbbb
[2016-09-04 11:32] VITALS: BP 117/76; PULSE 91; RESP 16; TEMP 97
--- NOTE | 2016-09-04 11:46 | CARD ---
APPROVED REPORT EKG Measurement Heart [id number] <Conclusion> Atrial flutter Right bundle branch block Left anterior fascicular block Bifascicular block Left ventricular hypertrophy with repolarization abnormality Cannot rule out Septal infarct, age undetermined Abnormal ECG
[2016-09-04] MEDS ORDERED: Digoxin 125 mcg (0.125 mg) Tab PO SCH (14:00)
== END 2016-09-04 13:38 ==
LOC: ED 09:35 → ERH 12:25 → 2RSO 13:38
PROVIDERS: ADMIT Internal Medicine Infectious Disease; ATTEND Internal Medicine Infectious Disease
DX: I13.0 Hypertensive heart and chronic kidney disease with heart failure and stage 1 through stage 4 chronic kidney disease, or unspecified chronic kidney disease (principal); I50.31 Acute diastolic (congestive) heart failure; I48.91 Unspecified atrial fibrillation; N17.9 Acute kidney failure, unspecified; N18.9 Chronic kidney disease, unspecified; I27.2 Other secondary pulmonary hypertension; J44.9 Chronic obstructive pulmonary disease, unspecified; K25.9 Gastric ulcer, unspecified as acute or chronic, without hemorrhage or perforation; M54.30 Sciatica, unspecified side; E78.5 Hyperlipidemia, unspecified; E78.00 Pure hypercholesterolemia, unspecified; D64.9 Anemia, unspecified; Z87.891 Personal history of nicotine dependence; Z85.528 Personal history of other malignant neoplasm of kidney; Z82.49 Family history of ischemic heart disease and other diseases of the circulatory system; Z86.73 Personal history of transient ischemic attack (TIA), and cerebral infarction without residual deficits; Z90.5 Acquired absence of kidney; M19.90 Unspecified osteoarthritis, unspecified site; F41.9 Anxiety disorder, unspecified; R40.2412 Glasgow coma scale score 13-15, at arrival to emergency department; R55 Syncope and collapse; K59.00 Constipation, unspecified
CPT/HCPCS: 36415; 71010; 80053; 80162; 81001; 82550; 83615; 83880; 84484; 85025; 85610; 85730; 87086; 93005; 96374; 96376; 99285; G0378; J1940

== ENCOUNTER 2016-09-04 13:40 | Inpatient (IN) | payer OTHER, MEDICARE ==
[2016-09-04 14:18] VITALS: BMI 20.4
[2016-09-04] MEDS: Lubricant Eye Drops UD OU PRN (16:27)
[2016-09-04] MEDS: Digoxin 125 mcg (0.125 mg) Tab PO SCH (16:44)
--- NOTE | 2016-09-04 16:53 | CP.PCM.HP ---
History of Present Illness - History of Present Illness History of Present Illness: Internal Medicine/Infectious Disease H&P: September 04, 2016 80 yo AA female presenting with SOB at home brought in for observation at this time. Recent discharged from the hospital last week. Improved after admission with diuretics. Transferred to [facility] for further care. PMHx: Hypertension, Anxiety, history of renal cancer/mass, sciatica, hypercholesterolemia, prior tobacco use history, atrial fibrillation. Last hospitalization showed ventricular fibrillation although it appears that occurred only once. Mass in right kidney that led to nephrectomy done by Dr. Hannon several years ago. PSHx: Nephrectomy, right side Allergies: NKDA Social Hx: No recent tobacco, EtOH, or illicit drug use. Recent loss of her brother ( occurred almost a year ago). Prior tobacco user. Active Medications Amlodipine Besylate (Norvasc) 5 mg PO DAILY [facility] PRN Reason: Protocol Artificial Tears (Refresh Opth Soln) 0 ml OU QID PRN; Protocol PRN Reason: Dry eyes Last Admin: 09/04/16 16:27 Dose: 0.3 ml Atorvastatin Calcium (Lipitor) 20 mg PO 1800 [facility] PRN Reason: Protocol Cholecalciferol (Vitamin D) 1,000 iu PO DAILY [facility] PRN Reason: Protocol Digoxin (Lanoxin) 0.125 mg PO 1400 [facility] PRN Reason: Protocol Diltiazem HCl (Cardizem) 60 mg PO TID [facility] PRN Reason: Protocol Docusate Sodium (Colace) 100 mg PO BID [facility] PRN Reason: Protocol Donepezil HCl (Aricept) 10 mg PO HS [facility] PRN Reason: Protocol Furosemide (Lasix) 40 mg IVP DAILY [facility] PRN Reason: Protocol Hydralazine HCl (Apresoline) 25 mg PO QID [facility] PRN Reason: Protocol Losartan Potassium (Cozaar) 100 mg PO DAILY [facility] PRN Reason: Protocol Metoprolol Tartrate (Lopressor) 25 mg PO 0800,1800 [facility] PRN Reason: Protocol Oxycodone/Acetaminophen (Percocet 5/325 Mg Tab) 1 tab PO Q6 PRN; Protocol PRN Reason: Pain, moderate (4-7) Stop: 09/07/16 14:30 Pantoprazole Sodium (Protonix Ec Tab) 40 mg PO 0630 [facility] PRN Reason: Protocol Family Hx: CAD in multiple family members ROS: no fevers, chills, nausea, vomiting, diarrhea, headaches, dizziness, chest pain , abdominal pain, melena, hematuria, hematemesis, hematochezia, SOB, wheezing, vision loss, loss of consciousness, hearing loss. She has anxiety. Present on Admission - Present on Admission Any Indicators Present on Admission: No Review of Systems - Review of Systems Systems not reviewed;Unavailable: Respiratory Distress - Constitutional Constitutional: As Per HPI - EENT Eyes: As Per HPI Ears: As Per HPI Nose/Mouth/Throat: As Per HPI - Breasts Breasts: As Per HPI - Cardiovascular Cardiovascular: As Per HPI - Respiratory Respiratory: As Per HPI, Dyspnea - Gastrointestinal Gastrointestinal: As Per HPI - Genitourinary Genitourinary: As Per HPI - Reproductive: Female Reproductive:Female: Menopausal - Menstruation Menstruation: Menopausal - Musculoskeletal Musculoskeletal: As Per HPI - Integumentary Integumentary: As Per HPI - Neurological Neurological: As Per HPI - Psychiatric Psychiatric: As Per HPI - Endocrine Endocrine: As Per HPI - Hematologic/Lymphatic Hematologic: As Per HPI Past Patient History - Infectious Disease Hx of Infectious Diseases: None - Tetanus Immunizations Tetanus Immunization: >10 years Ago - Past Medical History & Family History Past Medical History?: Yes - Past Social History Smoking Status: Former Smoker - CARDIAC Hx Cardiac Disorders: Yes Hx Cardia Arrhythmia: Yes (AFIB) Hx Congestive Heart Failure: Yes Hx Hypercholesterolemia: Yes Hx Hypertension: Yes - PULMONARY Hx Respiratory Disorders: Yes (SMOKES CIGARETTES) - NEUROLOGICAL Hx Neurological Disorder: Yes (SYNCOPE) HX Cerebrovascular Accident: Yes - HEENT Hx HEENT Problems: No - RENAL Hx Chronic Kidney Disease: Yes Hx Renal (Kidney) Cancer: Yes Other/Comment: Right nephrectomy - ENDOCRINE/METABOLIC Hx Endocrine Disorders: No - HEMATOLOGICAL/ONCOLOGICAL Hx Blood Disorders: Yes Hx Cancer: Yes (RENAL CELL CA) - INTEGUMENTARY Hx Dermatological Problems: No - MUSCULOSKELETAL/RHEUMATOLOGICAL Hx Falls: No - GASTROINTESTINAL Hx Gastrointestinal Disorders: No - GENITOURINARY/GYNECOLOGICAL Hx Genitourinary Disorders: No Hx Reproductive Disorders: No - PSYCHIATRIC Hx Psychophysiologic Disorder: Yes Hx Anxiety: Yes Hx Substance Use: No - SURGICAL HISTORY Hx Surgeries: Yes Other/Comment: Right nephrectomy - ANESTHESIA Hx Anesthesia: Yes Hx Anesthesia Reactions: No Hx Malignant Hyperthermia: No Meds Allergies/Adverse Reactions: Allergies Allergy/AdvReac Type Severity Reaction Status Date / Time No Known Allergies Allergy Verified 09/03/16 14:05 Physical Exam - Constitutional Appears: Non-toxic, No Acute Distress, Chronically Ill - Head Exam Head Exam: ATRAUMATIC, NORMOCEPHALIC - Eye Exam Eye Exam: EOMI, PERRL Pupil Exam: NORMAL ACCOMODATION, PERRL - ENT Exam ENT Exam: Mucous Membranes Moist, Normal External Ear Exam, TM's Normal Bilaterally - Neck Exam Neck exam: Positive for: Full Rom, Normal Inspection - Respiratory Exam Respiratory Exam: Decreased Breath Sounds, Clear to Auscultation Bilateral, NORMAL BREATHING PATTERN. absent: Rales, Rhonchi, Wheezes - Cardiovascular Exam Cardiovascular Exam: Irregular Rhythm, +S1, +S2 - GI/Abdominal Exam GI & Abdominal Exam: Normal Bowel Sounds, Soft. absent: Distended, Tenderness - Extremities Exam Extremities exam: Positive for: full ROM, normal inspection - Neurological Exam Neurological exam: Alert, CN II-XII Intact, Oriented x3 - Psychiatric Exam Psychiatric exam: Normal Affect, Normal Mood - Skin Skin Exam: Intact, Normal Color Results - Vital Signs Recent Vital Signs: Last Vital Signs Temp 97.8 F 09/04/16 14:01 Pulse 74 09/04/16 14:01 Resp 18 09/04/16 14:01 BP 105/57 L 09/04/16 14:01 Pulse Ox Assessment & Plan - Assessment and Plan (Free Text) Assessment: 80 yo AA female with SOB with extensive past medical history with Acute diastolic CHF, Pulmonary hypertension, Hypertension, COPD, ulcers in the intestine (no fecal transplant history). Started on diurectics. Awaiting pulmonology evaluation. Supportive care. Monitor patient. In fluid overload leading to respiratory distress. Still with issues with hypertension. The patient was started on Cardizem (diltiazem) 60 mg PO TID to improve hypertension control. Spoke with the patient's son this afternoon. Continue medications for hypertension, hyperlipidemia, Atrial fibrillation, and gastric ulcers.
[2016-09-04] MEDS: Oxycodone/Acetaminophen 5/325 mg Tab PO PRN (20:09)
[2016-09-05] MEDS: Oxycodone/Acetaminophen 5/325 mg Tab PO PRN ×3 (01:51→22:35)
[2016-09-05] MEDS: Pantoprazole 40 mg EC Tab PO SCH (05:57)
--- NOTE | 2016-09-05 22:00 | CP.PCM.PN ---
Subjective - Date & Time of Evaluation Date of Evaluation: 09/05/16 Time of Evaluation: 17:15 - Subjective Subjective: Internal Medicine/Infectious Disease H&P: September 05, 2016 80 yo AA female presenting with SOB at home brought in for observation at this time. Recent discharged from the hospital last week. Improved after admission with diuretics. Transferred to [facility] for further care. Spoke with Dr. Gaytan today. Objective - Vital Signs/Intake and Output Vital Signs (last 24 hours): Temp Pulse Resp BP Pulse Ox 99.1 F 72 16 106/55 L 98 09/05/16 06:00 09/05/16 21:26 09/05/16 06:00 09/05/16 21:26 09/04/16 16:00 - Medications Medications: Current Medications Amlodipine Besylate (Norvasc) 5 mg PO DAILY [facility] PRN Reason: Protocol Last Admin: 09/05/16 10:25 Dose: Not Given Artificial Tears (Refresh Opth Soln) 0 ml OU QID PRN; Protocol PRN Reason: Dry eyes Last Admin: 09/04/16 16:27 Dose: 0.3 ml Atorvastatin Calcium (Lipitor) 20 mg PO 1800 [facility] PRN Reason: Protocol Last Admin: 09/04/16 19:05 Dose: 20 mg Cholecalciferol (Vitamin D) 1,000 iu PO DAILY [facility] PRN Reason: Protocol Last Admin: 09/05/16 10:23 Dose: 1,000 iu Digoxin (Lanoxin) 0.125 mg PO 1400 [facility] PRN Reason: Protocol Last Admin: 09/04/16 16:44 Dose: 0.125 mg Diltiazem HCl (Cardizem) 60 mg PO TID [facility] PRN Reason: Protocol Last Admin: 09/05/16 10:26 Dose: Not Given Docusate Sodium (Colace) 100 mg PO BID [facility] PRN Reason: Protocol Last Admin: 09/05/16 10:21 Dose: 100 mg Donepezil HCl (Aricept) 10 mg PO HS [facility] PRN Reason: Protocol Last Admin: 09/05/16 21:26 Dose: 10 mg Furosemide (Lasix) 40 mg IVP DAILY [facility] PRN Reason: Protocol Last Admin: 09/05/16 10:25 Dose: Not Given Hydralazine HCl (Apresoline) 25 mg PO QID [facility] PRN Reason: Protocol Last Admin: 09/05/16 21:26 Dose: Not Given Losartan Potassium (Cozaar) 100 mg PO DAILY [facility] PRN Reason: Protocol Last Admin: 09/05/16 10:27 Dose: Not Given Metoprolol Tartrate (Lopressor) 25 mg PO 0800,1800 [facility] PRN Reason: Protocol Last Admin: 09/05/16 08:31 Dose: 25 mg Oxycodone/Acetaminophen (Percocet 5/325 Mg Tab) 1 tab PO Q6 PRN; Protocol PRN Reason: Pain, moderate (4-7) Stop: 09/07/16 14:30 Last Admin: 09/05/16 10:23 Dose: 1 tab Pantoprazole Sodium (Protonix Ec Tab) 40 mg PO 0630 [facility] PRN Reason: Protocol Last Admin: 09/05/16 05:57 Dose: 40 mg - Constitutional Appears: Non-toxic, No Acute Distress, Chronically Ill - Head Exam Head Exam: ATRAUMATIC, NORMOCEPHALIC - Eye Exam Eye Exam: EOMI, PERRL Pupil Exam: NORMAL ACCOMODATION, PERRL - ENT Exam ENT Exam: Mucous Membranes Moist, Normal External Ear Exam, TM's Normal Bilaterally - Neck Exam Neck Exam: Full ROM, Normal Inspection - Respiratory Exam Respiratory Exam: Clear to Ausculation Bilateral, Respiratory Distress. absent : Rales, Rhonchi, Wheezes - Cardiovascular Exam Cardiovascular Exam: REGULAR RHYTHM, RRR, +S1, +S2 - GI/Abdominal Exam GI & Abdominal Exam: Soft, Normal Bowel Sounds. absent: Distended, Tenderness - Extremities Exam Extremities Exam: Full ROM, Normal Inspection - Neurological Exam Neurological Exam: Alert, Awake, CN II-XII Intact, Oriented x3 - Psychiatric Exam Psychiatric exam: Normal Affect, Normal Mood - Skin Skin Exam: Intact, Normal Color Assessment and Plan - Assessment and Plan (Free Text) Assessment: 80 yo AA female with SOB with extensive past medical history with Acute diastolic CHF, Pulmonary hypertension, Hypertension, COPD, ulcers in the intestine (no fecal transplant history). Started on diurectics. Awaiting pulmonology evaluation. Supportive care. Monitor patient. In fluid overload leading to respiratory distress. Still with issues with hypertension. The patient was started on Cardizem (diltiazem) 60 mg PO TID to improve hypertension control. Spoke with the patient's son yesterday afternoon. Discussed with Dr. Gaytan regarding risk benefits for anticoagulation. Continue medications for hypertension, hyperlipidemia, Atrial fibrillation, and gastric ulcers.
[2016-09-06] MEDS: Pantoprazole 40 mg EC Tab PO SCH (05:48)
[2016-09-06] MEDS: Oxycodone/Acetaminophen 5/325 mg Tab PO PRN ×2 (09:04→17:52)
[2016-09-06] MEDS: Lubricant Eye Drops UD OU PRN (12:28)
[2016-09-06] MEDS: Digoxin 125 mcg (0.125 mg) Tab PO SCH (14:08)
[2016-09-06] MEDS: Clotrimazole/Betamethasone Cream(15 gm) TOP SCH (17:46)
--- NOTE | 2016-09-06 18:35 | CP.PCM.PN ---
Subjective - Date & Time of Evaluation Date of Evaluation: 09/06/16 Time of Evaluation: 18:00 - Subjective Subjective: Internal Medicine/Infectious Disease Follow Up: September 06, 2016 80 yo AA female presenting with SOB at home brought in for observation at this time. Recent discharged from the hospital last week. Improved after admission with diuretics. Transferred to [facility] for further care. New rash in pelvic area that appears fungal. Lotrisome started. Objective - Vital Signs/Intake and Output Vital Signs (last 24 hours): Temp Pulse Resp BP Pulse Ox 98.3 F 72 12 104/52 L 98 09/06/16 11:32 09/06/16 11:32 09/06/16 11:32 09/06/16 17:49 09/04/16 16:00 - Medications Medications: Current Medications Amlodipine Besylate (Norvasc) 5 mg PO DAILY [facility] PRN Reason: Protocol Last Admin: 09/06/16 09:03 Dose: Not Given Artificial Tears (Refresh Opth Soln) 0 ml OU QID PRN; Protocol PRN Reason: Dry eyes Last Admin: 09/06/16 12:28 Dose: 1 ml Atorvastatin Calcium (Lipitor) 20 mg PO 1800 [facility] PRN Reason: Protocol Last Admin: 09/06/16 17:46 Dose: 20 mg Betamethasone/Clotrimazole (Lotrisone) 0 gm TOP BID [facility] Last Admin: 09/06/16 17:46 Dose: 1 applic Cholecalciferol (Vitamin D) 1,000 iu PO DAILY [facility] PRN Reason: Protocol Last Admin: 09/06/16 09:03 Dose: 1,000 iu Digoxin (Lanoxin) 0.125 mg PO 1400 [facility] PRN Reason: Protocol Last Admin: 09/06/16 14:08 Dose: 0.125 mg Diltiazem HCl (Cardizem) 60 mg PO TID [facility] PRN Reason: Protocol Last Admin: 09/06/16 17:49 Dose: Not Given Docusate Sodium (Colace) 100 mg PO BID [facility] PRN Reason: Protocol Last Admin: 09/06/16 17:45 Dose: 100 mg Donepezil HCl (Aricept) 10 mg PO HS [facility] PRN Reason: Protocol Last Admin: 09/05/16 21:26 Dose: 10 mg Furosemide (Lasix) 40 mg IVP DAILY [facility] PRN Reason: Protocol Last Admin: 09/06/16 09:02 Dose: Not Given Hydralazine HCl (Apresoline) 25 mg PO QID [facility] PRN Reason: Protocol Last Admin: 09/06/16 17:48 Dose: Not Given Losartan Potassium (Cozaar) 100 mg PO DAILY [facility] PRN Reason: Protocol Last Admin: 09/06/16 09:02 Dose: Not Given Metoprolol Tartrate (Lopressor) 25 mg PO 0800,1800 [facility] PRN Reason: Protocol Last Admin: 09/06/16 17:49 Dose: Not Given Oxycodone/Acetaminophen (Percocet 5/325 Mg Tab) 1 tab PO Q6 PRN; Protocol PRN Reason: Pain, moderate (4-7) Stop: 09/07/16 14:30 Last Admin: 09/06/16 17:52 Dose: 1 tab Pantoprazole Sodium (Protonix Ec Tab) 40 mg PO 0630 [facility] PRN Reason: Protocol Last Admin: 09/06/16 05:48 Dose: 40 mg - Constitutional Appears: Non-toxic, No Acute Distress, Chronically Ill - Head Exam Head Exam: ATRAUMATIC, NORMOCEPHALIC - Eye Exam Eye Exam: EOMI, PERRL Pupil Exam: NORMAL ACCOMODATION, PERRL - ENT Exam ENT Exam: Mucous Membranes Moist, Normal External Ear Exam, TM's Normal Bilaterally - Neck Exam Neck Exam: Full ROM, Normal Inspection - Respiratory Exam Respiratory Exam: Clear to Ausculation Bilateral, NORMAL BREATHING PATTERN. absent: Rales, Rhonchi, Wheezes - Cardiovascular Exam Cardiovascular Exam: REGULAR RHYTHM, RRR, +S1, +S2 - GI/Abdominal Exam GI & Abdominal Exam: Soft, Normal Bowel Sounds. absent: Distended, Tenderness - Extremities Exam Extremities Exam: Full ROM, Normal Inspection - Neurological Exam Neurological Exam: Alert, Awake, CN II-XII Intact Additional comments: AAO x 2-3 - Psychiatric Exam Psychiatric exam: Normal Affect, Normal Mood - Skin Skin Exam: Intact, Normal Color Additional comments: new rash in pelvic area... appears to be tinea. Assessment and Plan - Assessment and Plan (Free Text) Assessment: 80 yo AA female with SOB with extensive past medical history with Acute diastolic CHF, Pulmonary hypertension, Hypertension, COPD, ulcers in the intestine (no fecal transplant history). Started on diurectics. Awaiting pulmonology evaluation. Supportive care. Monitor patient. In fluid overload leading to respiratory distress. Still with issues with hypertension. The patient was started on Cardizem (diltiazem) 60 mg PO TID to improve hypertension control. Spoke with the patient's son yesterday afternoon. Discussed with Dr. Gaytan regarding risk benefits for anticoagulation. New rash in pelvic area. Started on Lotrisome cream for treatment. Continue medications for hypertension, hyperlipidemia, Atrial fibrillation, and gastric ulcers.
[2016-09-07] MEDS: Oxycodone/Acetaminophen 5/325 mg Tab PO PRN ×2 (02:28→21:04)
[2016-09-07] MEDS: Pantoprazole 40 mg EC Tab PO SCH (05:43)
[2016-09-07] MEDS: Clotrimazole/Betamethasone Cream(15 gm) TOP SCH ×2 (09:52→17:26)
[2016-09-07] MEDS: Digoxin 125 mcg (0.125 mg) Tab PO SCH (13:30)
[2016-09-07] MEDS: Lubricant Eye Drops UD OU PRN (13:31)
--- NOTE | 2016-09-07 18:05 | CP.PCM.PN ---
Subjective - Date & Time of Evaluation Date of Evaluation: 09/07/16 Time of Evaluation: 17:15 - Subjective Subjective: Internal Medicine/Infectious Disease Follow Up: September 07, 2016 80 yo AA female presenting with SOB at home brought in for observation at this time. Recent discharged from the hospital last week. Improved after admission with diuretics. Transferred to [facility] for further care. New rash in pelvic area that appears fungal. Lotrisome started yesterday. Objective - Vital Signs/Intake and Output Vital Signs (last 24 hours): Temp Pulse Resp BP Pulse Ox 97.8 F 72 18 105/53 L 98 09/07/16 10:39 09/07/16 17:25 09/07/16 10:39 09/07/16 17:25 09/04/16 16:00 - Medications Medications: Current Medications Amlodipine Besylate (Norvasc) 5 mg PO DAILY [facility] PRN Reason: Protocol Last Admin: 09/07/16 12:00 Dose: 5 mg Artificial Tears (Refresh Opth Soln) 0 ml OU QID PRN; Protocol PRN Reason: Dry eyes Last Admin: 09/07/16 13:31 Dose: 0.3 ml Atorvastatin Calcium (Lipitor) 20 mg PO 1800 [facility] PRN Reason: Protocol Last Admin: 09/06/16 17:46 Dose: 20 mg Betamethasone/Clotrimazole (Lotrisone) 0 gm TOP BID [facility] Last Admin: 09/07/16 17:26 Dose: 1 applic Cholecalciferol (Vitamin D) 1,000 iu PO DAILY [facility] PRN Reason: Protocol Last Admin: 09/07/16 09:53 Dose: 1,000 iu Digoxin (Lanoxin) 0.125 mg PO 1400 [facility] PRN Reason: Protocol Last Admin: 09/07/16 13:30 Dose: 0.125 mg Diltiazem HCl (Cardizem) 60 mg PO TID [facility] PRN Reason: Protocol Last Admin: 09/07/16 17:25 Dose: Not Given Docusate Sodium (Colace) 100 mg PO BID [facility] PRN Reason: Protocol Last Admin: 09/07/16 17:26 Dose: 100 mg Donepezil HCl (Aricept) 10 mg PO HS [facility] PRN Reason: Protocol Last Admin: 09/06/16 21:23 Dose: 10 mg Furosemide (Lasix) 40 mg PO DAILY [facility] Last Admin: 09/07/16 12:00 Dose: 40 mg Hydralazine HCl (Apresoline) 25 mg PO QID [facility] PRN Reason: Protocol Last Admin: 09/07/16 17:25 Dose: Not Given Losartan Potassium (Cozaar) 100 mg PO DAILY [facility] PRN Reason: Protocol Last Admin: 09/07/16 09:51 Dose: 100 mg Metoprolol Tartrate (Lopressor) 25 mg PO 0800,1800 [facility] PRN Reason: Protocol Last Admin: 09/07/16 09:00 Dose: Not Given Pantoprazole Sodium (Protonix Ec Tab) 40 mg PO 0630 [facility] PRN Reason: Protocol Last Admin: 09/07/16 05:43 Dose: 40 mg - Constitutional Appears: Non-toxic, No Acute Distress, Chronically Ill - Head Exam Head Exam: ATRAUMATIC, NORMOCEPHALIC - Eye Exam Eye Exam: EOMI, PERRL Pupil Exam: NORMAL ACCOMODATION, PERRL - ENT Exam ENT Exam: Mucous Membranes Moist, Normal External Ear Exam, TM's Normal Bilaterally - Neck Exam Neck Exam: Full ROM, Normal Inspection - Respiratory Exam Respiratory Exam: Clear to Ausculation Bilateral, NORMAL BREATHING PATTERN. absent: Rales, Rhonchi, Wheezes - Cardiovascular Exam Cardiovascular Exam: REGULAR RHYTHM, RRR, +S1, +S2 - GI/Abdominal Exam GI & Abdominal Exam: Soft, Normal Bowel Sounds. absent: Distended, Tenderness - Extremities Exam Extremities Exam: Full ROM, Normal Inspection - Neurological Exam Neurological Exam: Alert, Awake, CN II-XII Intact, Oriented x3 - Psychiatric Exam Psychiatric exam: Normal Affect, Normal Mood - Skin Skin Exam: Intact, Normal Color Assessment and Plan - Assessment and Plan (Free Text) Assessment: 80 yo AA female with SOB with extensive past medical history with Acute diastolic CHF, Pulmonary hypertension, Hypertension, COPD, ulcers in the intestine (no fecal transplant history). Started on diurectics. Awaiting pulmonology evaluation. Supportive care. Monitor patient. In fluid overload leading to respiratory distress. Still with issues with hypertension. The patient was started on Cardizem (diltiazem) 60 mg PO TID to improve hypertension control. She appears to be tolerating Spoke with the patient's son yesterday afternoon. Discussed with Dr. Gaytan regarding risk benefits for anticoagulation. New rash in pelvic area. Started on Lotrisome cream for treatment yesterday. Continue medications for hypertension, hyperlipidemia, Atrial fibrillation, and gastric ulcers.
[2016-09-08] MEDS: Pantoprazole 40 mg EC Tab PO SCH (05:52)
[2016-09-08] MEDS: Clotrimazole/Betamethasone Cream(15 gm) TOP SCH ×2 (10:56→17:23)
[2016-09-08] MEDS: Oxycodone/Acetaminophen 5/325 mg Tab PO PRN ×2 (14:55→21:33)
[2016-09-08] MEDS: Digoxin 125 mcg (0.125 mg) Tab PO SCH (15:00)
--- NOTE | 2016-09-08 16:45 | CP.PCM.PN ---
Subjective - Date & Time of Evaluation Date of Evaluation: 09/08/16 Time of Evaluation: 16:00 - Subjective Subjective: Internal Medicine/Infectious Disease Follow Up: September 08, 2016 80 yo AA female presenting with SOB at home brought in for observation at this time. Recent discharged from the hospital last week. Improved after admission with diuretics. Transferred to [facility] for further care. New rash in pelvic area that appears fungal. Lotrisome in use. No further complaints. Objective - Vital Signs/Intake and Output Vital Signs (last 24 hours): Temp Pulse Resp BP Pulse Ox 97.9 F 71 18 99/57 L 99 09/08/16 16:00 09/08/16 16:00 09/08/16 16:00 09/08/16 16:00 09/08/16 16:00 - Medications Medications: Current Medications Alprazolam (Xanax) 0.5 mg PO HS PRN; Protocol PRN Reason: Anxiety Amlodipine Besylate (Norvasc) 5 mg PO DAILY [facility] PRN Reason: Protocol Last Admin: 09/08/16 10:55 Dose: 5 mg Artificial Tears (Refresh Opth Soln) 0 ml OU QID PRN; Protocol PRN Reason: Dry eyes Last Admin: 09/07/16 13:31 Dose: 0.3 ml Atorvastatin Calcium (Lipitor) 20 mg PO 1800 [facility] PRN Reason: Protocol Last Admin: 09/07/16 18:00 Dose: 20 mg Betamethasone/Clotrimazole (Lotrisone) 0 gm TOP BID [facility] Last Admin: 09/08/16 10:56 Dose: 1 applic Cholecalciferol (Vitamin D) 1,000 iu PO DAILY [facility] PRN Reason: Protocol Last Admin: 09/08/16 10:55 Dose: 1,000 iu Digoxin (Lanoxin) 0.125 mg PO 1400 [facility] PRN Reason: Protocol Last Admin: 09/08/16 15:00 Dose: Not Given Diltiazem HCl (Cardizem) 60 mg PO TID [facility] PRN Reason: Protocol Last Admin: 09/08/16 14:16 Dose: Not Given Docusate Sodium (Colace) 100 mg PO BID [facility] PRN Reason: Protocol Last Admin: 09/08/16 10:51 Dose: 100 mg Donepezil HCl (Aricept) 10 mg PO HS [facility] PRN Reason: Protocol Last Admin: 09/07/16 21:04 Dose: 10 mg Furosemide (Lasix) 40 mg PO DAILY [facility] Last Admin: 09/08/16 12:55 Dose: 40 mg Hydralazine HCl (Apresoline) 25 mg PO QID [facility] PRN Reason: Protocol Last Admin: 09/08/16 14:16 Dose: Not Given Losartan Potassium (Cozaar) 100 mg PO DAILY [facility] PRN Reason: Protocol Last Admin: 09/08/16 10:52 Dose: 100 mg Metoprolol Tartrate (Lopressor) 25 mg PO 0800,1800 [facility] PRN Reason: Protocol Last Admin: 09/08/16 08:01 Dose: 25 mg Oxycodone/Acetaminophen (Percocet 5/325 Mg Tab) 1 tab PO Q6H PRN PRN Reason: Pain, moderate (4-7) Stop: 09/10/16 20:48 Last Admin: 09/08/16 14:55 Dose: 1 tab Pantoprazole Sodium (Protonix Ec Tab) 40 mg PO 0630 [facility] PRN Reason: Protocol Last Admin: 09/08/16 05:52 Dose: 40 mg - Constitutional Appears: Non-toxic, No Acute Distress, Chronically Ill - Head Exam Head Exam: ATRAUMATIC, NORMOCEPHALIC - Eye Exam Eye Exam: EOMI, PERRL Pupil Exam: NORMAL ACCOMODATION, PERRL - ENT Exam ENT Exam: Mucous Membranes Moist, Normal External Ear Exam, TM's Normal Bilaterally - Neck Exam Neck Exam: Full ROM, Normal Inspection - Respiratory Exam Respiratory Exam: Clear to Ausculation Bilateral, NORMAL BREATHING PATTERN. absent: Rales, Rhonchi, Wheezes - Cardiovascular Exam Cardiovascular Exam: REGULAR RHYTHM, RRR, +S1, +S2 - GI/Abdominal Exam GI & Abdominal Exam: Soft, Normal Bowel Sounds. absent: Distended, Tenderness - Extremities Exam Extremities Exam: Full ROM, Normal Inspection - Neurological Exam Neurological Exam: Alert, Awake, CN II-XII Intact, Oriented x3 - Psychiatric Exam Psychiatric exam: Normal Affect, Normal Mood - Skin Skin Exam: Intact, Normal Color Assessment and Plan - Assessment and Plan (Free Text) Assessment: 80 yo AA female with SOB with extensive past medical history with Acute diastolic CHF, Pulmonary hypertension, Hypertension, COPD, ulcers in the intestine (no fecal transplant history). Started on diurectics. Awaiting pulmonology evaluation. Supportive care. Monitor patient. In fluid overload leading to respiratory distress. Still with issues with hypertension. The patient was started on Cardizem (diltiazem) 60 mg PO TID to improve hypertension control. She appears to be tolerating Spoke with the patient's son yesterday afternoon. Discussed with Dr. Gaytan regarding risk benefits for anticoagulation. New rash in pelvic area. Continuing with Lotrisome cream for treatment. Patient received dose of Xanax for anxiety issues. Continue medications for hypertension, hyperlipidemia, Atrial fibrillation, and gastric ulcers.
[2016-09-09] MEDS: Oxycodone/Acetaminophen 5/325 mg Tab PO PRN (05:15)
[2016-09-09] MEDS: Pantoprazole 40 mg EC Tab PO SCH (05:50)
[2016-09-09] MEDS: Clotrimazole/Betamethasone Cream(15 gm) TOP SCH ×2 (11:13→17:37)
[2016-09-09] MEDS: Digoxin 125 mcg (0.125 mg) Tab PO SCH (14:34)
--- NOTE | 2016-09-09 17:27 | CP.PCM.PN ---
Subjective - Date & Time of Evaluation Date of Evaluation: 09/09/16 Time of Evaluation: 16:30 - Subjective Subjective: Internal Medicine/Infectious Disease Follow Up: September 09, 2016 80 yo AA female presenting with SOB at home brought in for observation at this time. Recent discharged from the hospital last week. Improved after admission with diuretics. Transferred to [facility] for further care. New rash in pelvic area that appears fungal. Lotrisome in use. No further complaints. Objective - Vital Signs/Intake and Output Vital Signs (last 24 hours): Temp Pulse Resp BP Pulse Ox 98 F 55 L 14 105/61 95 09/09/16 16:00 09/09/16 16:00 09/09/16 16:00 09/09/16 16:00 09/09/16 10:00 - Medications Medications: Current Medications Alprazolam (Xanax) 0.5 mg PO HS PRN; Protocol PRN Reason: Anxiety Last Admin: 09/09/16 11:30 Dose: 0.5 mg Amlodipine Besylate (Norvasc) 5 mg PO DAILY [facility] PRN Reason: Protocol Last Admin: 09/09/16 11:14 Dose: 5 mg Artificial Tears (Refresh Opth Soln) 0 ml OU QID PRN; Protocol PRN Reason: Dry eyes Last Admin: 09/07/16 13:31 Dose: 0.3 ml Atorvastatin Calcium (Lipitor) 20 mg PO 1800 [facility] PRN Reason: Protocol Last Admin: 09/08/16 17:22 Dose: 20 mg Betamethasone/Clotrimazole (Lotrisone) 0 gm TOP BID [facility] Last Admin: 09/09/16 11:13 Dose: 1 applic Cholecalciferol (Vitamin D) 1,000 iu PO DAILY [facility] PRN Reason: Protocol Last Admin: 09/09/16 11:14 Dose: 1,000 iu Digoxin (Lanoxin) 0.125 mg PO 1400 [facility] PRN Reason: Protocol Last Admin: 09/08/16 15:00 Dose: Not Given Diltiazem HCl (Cardizem) 60 mg PO TID [facility] PRN Reason: Protocol Last Admin: 09/09/16 11:11 Dose: 60 mg Docusate Sodium (Colace) 100 mg PO BID [facility] PRN Reason: Protocol Last Admin: 09/09/16 11:11 Dose: 100 mg Donepezil HCl (Aricept) 10 mg PO HS [facility] PRN Reason: Protocol Last Admin: 09/08/16 21:33 Dose: 10 mg Furosemide (Lasix) 40 mg PO DAILY [facility] Last Admin: 09/09/16 11:12 Dose: 40 mg Hydralazine HCl (Apresoline) 25 mg PO QID [facility] PRN Reason: Protocol Last Admin: 09/09/16 14:36 Dose: Not Given Losartan Potassium (Cozaar) 100 mg PO DAILY [facility] PRN Reason: Protocol Last Admin: 09/09/16 11:12 Dose: 100 mg Metoprolol Tartrate (Lopressor) 25 mg PO 0800,1800 [facility] PRN Reason: Protocol Last Admin: 09/09/16 08:38 Dose: 25 mg Oxycodone/Acetaminophen (Percocet 5/325 Mg Tab) 1 tab PO Q6H PRN PRN Reason: Pain, moderate (4-7) Stop: 09/10/16 20:48 Last Admin: 09/09/16 05:15 Dose: 1 tab Pantoprazole Sodium (Protonix Ec Tab) 40 mg PO 0630 [facility] PRN Reason: Protocol Last Admin: 09/09/16 05:50 Dose: 40 mg - Constitutional Appears: Non-toxic, No Acute Distress, Chronically Ill - Head Exam Head Exam: ATRAUMATIC, NORMOCEPHALIC - Eye Exam Eye Exam: EOMI, PERRL Pupil Exam: NORMAL ACCOMODATION, PERRL - ENT Exam ENT Exam: Mucous Membranes Moist, Normal External Ear Exam, TM's Normal Bilaterally - Neck Exam Neck Exam: Full ROM, Normal Inspection - Respiratory Exam Respiratory Exam: Clear to Ausculation Bilateral, NORMAL BREATHING PATTERN. absent: Rales, Rhonchi, Wheezes - Cardiovascular Exam Cardiovascular Exam: REGULAR RHYTHM, RRR, +S1, +S2 - GI/Abdominal Exam GI & Abdominal Exam: Soft, Normal Bowel Sounds. absent: Distended, Tenderness - Extremities Exam Extremities Exam: Full ROM, Normal Inspection - Neurological Exam Neurological Exam: Alert, Awake, CN II-XII Intact, Oriented x3 - Psychiatric Exam Psychiatric exam: Normal Affect, Normal Mood - Skin Skin Exam: Intact, Normal Color Assessment and Plan - Assessment and Plan (Free Text) Assessment: 80 yo AA female with SOB with extensive past medical history with Acute diastolic CHF, Pulmonary hypertension, Hypertension, COPD, ulcers in the intestine (no fecal transplant history). Started on diurectics. Awaiting pulmonology evaluation. Supportive care. Monitor patient. In fluid overload leading to respiratory distress. Still with issues with hypertension. The patient was started on Cardizem (diltiazem) 60 mg PO TID to improve hypertension control. She appears to be tolerating Spoke with the patient's son yesterday afternoon. Discussed with Dr. Gaytan regarding risk benefits for anticoagulation. New rash in pelvic area. Continuing with Lotrisome cream for treatment. Rash appears to have resolved. Patient received dose of Xanax for anxiety issues. Continue medications for hypertension, hyperlipidemia, Atrial fibrillation, and gastric ulcers.
[2016-09-10] MEDS: Pantoprazole 40 mg EC Tab PO SCH (05:46)
[2016-09-10] MEDS: Clotrimazole/Betamethasone Cream(15 gm) TOP SCH ×2 (09:58→17:26)
[2016-09-10] MEDS: Oxycodone/Acetaminophen 5/325 mg Tab PO PRN ×2 (10:15→16:00)
[2016-09-10] MEDS: Digoxin 125 mcg (0.125 mg) Tab PO SCH (13:20)
--- NOTE | 2016-09-10 19:39 | CP.PCM.PN ---
Subjective - Date & Time of Evaluation Date of Evaluation: 09/10/16 Time of Evaluation: 19:00 - Subjective Subjective: Internal Medicine/Infectious Disease Follow Up: September 10, 2016 80 yo AA female presenting with SOB at home brought in for observation at this time. Recent discharged from the hospital last week. Improved after admission with diuretics. In TRCU for further care. New rash in pelvic area that appears fungal. Lotrisome in use which has resolved the rash. No further complaints. Objective - Vital Signs/Intake and Output Vital Signs (last 24 hours): Temp Pulse Resp BP Pulse Ox 97.7 F 69 18 96/53 L 96 09/10/16 16:00 09/10/16 16:00 09/10/16 16:00 09/10/16 16:00 09/10/16 16:00 - Medications Medications: Current Medications Alprazolam (Xanax) 0.5 mg PO HS PRN; Protocol PRN Reason: Anxiety Last Admin: 09/10/16 16:00 Dose: 0.5 mg Amlodipine Besylate (Norvasc) 5 mg PO DAILY [facility] PRN Reason: Protocol Last Admin: 09/10/16 09:59 Dose: 5 mg Artificial Tears (Refresh Opth Soln) 0 ml OU QID PRN; Protocol PRN Reason: Dry eyes Last Admin: 09/07/16 13:31 Dose: 0.3 ml Atorvastatin Calcium (Lipitor) 20 mg PO 1800 [facility] PRN Reason: Protocol Last Admin: 09/10/16 17:25 Dose: 20 mg Betamethasone/Clotrimazole (Lotrisone) 0 gm TOP BID [facility] Last Admin: 09/10/16 17:26 Dose: 1 applic Cholecalciferol (Vitamin D) 1,000 iu PO DAILY [facility] PRN Reason: Protocol Last Admin: 09/10/16 09:59 Dose: 1,000 iu Digoxin (Lanoxin) 0.125 mg PO 1400 [facility] PRN Reason: Protocol Last Admin: 09/10/16 13:20 Dose: Not Given Diltiazem HCl (Cardizem) 60 mg PO TID [facility] PRN Reason: Protocol Last Admin: 09/10/16 17:25 Dose: Not Given Docusate Sodium (Colace) 100 mg PO BID [facility] PRN Reason: Protocol Last Admin: 09/10/16 17:24 Dose: 100 mg Donepezil HCl (Aricept) 10 mg PO HS [facility] PRN Reason: Protocol Last Admin: 09/09/16 22:09 Dose: 10 mg Furosemide (Lasix) 40 mg PO DAILY [facility] Last Admin: 09/10/16 09:59 Dose: 40 mg Hydralazine HCl (Apresoline) 25 mg PO QID [facility] PRN Reason: Protocol Last Admin: 09/10/16 17:25 Dose: Not Given Losartan Potassium (Cozaar) 100 mg PO DAILY [facility] PRN Reason: Protocol Last Admin: 09/10/16 10:01 Dose: 100 mg Metoprolol Tartrate (Lopressor) 25 mg PO 0800,1800 [facility] PRN Reason: Protocol Last Admin: 09/10/16 17:26 Dose: Not Given Oxycodone/Acetaminophen (Percocet 5/325 Mg Tab) 1 tab PO Q6H PRN PRN Reason: Pain, moderate (4-7) Stop: 09/10/16 20:48 Last Admin: 09/10/16 16:00 Dose: 1 tab Pantoprazole Sodium (Protonix Ec Tab) 40 mg PO 0630 [facility] PRN Reason: Protocol Last Admin: 09/10/16 05:46 Dose: 40 mg - Constitutional Appears: Non-toxic, No Acute Distress, Chronically Ill - Head Exam Head Exam: ATRAUMATIC, NORMOCEPHALIC - Eye Exam Eye Exam: EOMI, PERRL Pupil Exam: NORMAL ACCOMODATION, PERRL - ENT Exam ENT Exam: Mucous Membranes Moist, Normal External Ear Exam, TM's Normal Bilaterally - Neck Exam Neck Exam: Full ROM, Normal Inspection - Respiratory Exam Respiratory Exam: Clear to Ausculation Bilateral, NORMAL BREATHING PATTERN. absent: Rales, Rhonchi, Wheezes - Cardiovascular Exam Cardiovascular Exam: REGULAR RHYTHM, RRR, +S1, +S2 - GI/Abdominal Exam GI & Abdominal Exam: Soft, Normal Bowel Sounds. absent: Distended, Tenderness - Extremities Exam Extremities Exam: Full ROM, Normal Inspection - Neurological Exam Neurological Exam: Alert, Awake, CN II-XII Intact Additional comments: AAO x 2-3 - Psychiatric Exam Psychiatric exam: Normal Affect, Normal Mood - Skin Skin Exam: Intact, Normal Color Assessment and Plan - Assessment and Plan (Free Text) Assessment: 80 yo AA female with SOB with extensive past medical history with Acute diastolic CHF, Pulmonary hypertension, Hypertension, COPD, ulcers in the intestine (no fecal transplant history). Started on diurectics. Awaiting pulmonology evaluation. Supportive care. Monitor patient. In fluid overload leading to respiratory distress. Still with issues with hypertension. The patient was started on Cardizem (diltiazem) 60 mg PO TID to improve hypertension control. She appears to be tolerating Spoke with the patient's son. Discussed with Dr. Gaytan regarding risk benefits for anticoagulation. New rash in pelvic area. Continuing with Lotrisome cream for treatment. Rash appears to have resolved. Patient received dose of Xanax for anxiety issues. Potential discharge this weekend. Continue medications for hypertension, hyperlipidemia, Atrial fibrillation, and gastric ulcers.
[2016-09-10] MEDS ORDERED: Oxycodone/Acetaminophen 5/325 mg Tab PO STA (23:28)
[2016-09-11] MEDS: Pantoprazole 40 mg EC Tab PO SCH (05:53)
[2016-09-11] MEDS: Clotrimazole/Betamethasone Cream(15 gm) TOP SCH ×2 (11:51→17:30)
[2016-09-11] MEDS: Digoxin 125 mcg (0.125 mg) Tab PO SCH ×2 (13:41→13:42)
[2016-09-11] MEDS: Oxycodone/Acetaminophen 5/325 mg Tab PO PRN (13:49)
--- NOTE | 2016-09-11 16:57 | CP.PCM.PN ---
Subjective - Date & Time of Evaluation Date of Evaluation: 09/11/16 Time of Evaluation: 16:30 - Subjective Subjective: Internal Medicine/Infectious Disease Follow Up: September 11, 2016 80 yo AA female presenting with SOB at home brought in for observation at this time. Recent discharged from the hospital last week. Improved after admission with diuretics. In TRCU for further care. New rash in pelvic area that appears fungal. Lotrisome in use which has resolved the rash. No further complaints. She is taking perocet about twice a day. Objective - Vital Signs/Intake and Output Vital Signs (last 24 hours): Temp Pulse Resp BP Pulse Ox 97.5 F L 70 18 114/62 98 09/11/16 10:00 09/11/16 10:00 09/11/16 10:00 09/11/16 10:00 09/11/16 10:00 Intake and Output: 09/11/16 09/11/16 06:59 18:59 Intake Total 480 Output Total 1200 Balance -720 - Medications Medications: Current Medications Alprazolam (Xanax) 0.5 mg PO HS PRN; Protocol PRN Reason: Anxiety Last Admin: 09/10/16 16:00 Dose: 0.5 mg Amlodipine Besylate (Norvasc) 5 mg PO DAILY [facility] PRN Reason: Protocol Last Admin: 09/11/16 09:45 Dose: 5 mg Artificial Tears (Refresh Opth Soln) 0 ml OU QID PRN; Protocol PRN Reason: Dry eyes Last Admin: 09/07/16 13:31 Dose: 0.3 ml Atorvastatin Calcium (Lipitor) 20 mg PO 1800 [facility] PRN Reason: Protocol Last Admin: 09/10/16 17:25 Dose: 20 mg Betamethasone/Clotrimazole (Lotrisone) 0 gm TOP BID [facility] Last Admin: 09/11/16 11:51 Dose: 1 applic Cholecalciferol (Vitamin D) 1,000 iu PO DAILY [facility] PRN Reason: Protocol Last Admin: 09/11/16 09:46 Dose: 1,000 iu Digoxin (Lanoxin) 0.125 mg PO 1400 [facility] PRN Reason: Protocol Last Admin: 09/11/16 13:42 Dose: 0.125 mg Diltiazem HCl (Cardizem) 60 mg PO TID [facility] PRN Reason: Protocol Last Admin: 09/11/16 13:40 Dose: 60 mg Docusate Sodium (Colace) 100 mg PO BID [facility] PRN Reason: Protocol Last Admin: 09/11/16 09:46 Dose: 100 mg Donepezil HCl (Aricept) 10 mg PO HS [facility] PRN Reason: Protocol Last Admin: 09/10/16 21:39 Dose: Not Given Furosemide (Lasix) 40 mg PO DAILY [facility] Last Admin: 09/11/16 09:45 Dose: 40 mg Hydralazine HCl (Apresoline) 25 mg PO QID [facility] PRN Reason: Protocol Last Admin: 09/11/16 13:40 Dose: 25 mg Losartan Potassium (Cozaar) 100 mg PO DAILY [facility] PRN Reason: Protocol Last Admin: 09/11/16 09:46 Dose: 100 mg Metoprolol Tartrate (Lopressor) 25 mg PO 0800,1800 [facility] PRN Reason: Protocol Last Admin: 09/11/16 09:48 Dose: 25 mg Oxycodone/Acetaminophen (Percocet 5/325 Mg Tab) 1 tab PO Q6H PRN PRN Reason: Pain, moderate (4-7) Stop: 09/14/16 12:39 Last Admin: 09/11/16 13:49 Dose: 1 tab Pantoprazole Sodium (Protonix Ec Tab) 40 mg PO 0630 [facility] PRN Reason: Protocol Last Admin: 09/11/16 05:53 Dose: 40 mg - Constitutional Appears: Non-toxic, No Acute Distress, Chronically Ill - Head Exam Head Exam: ATRAUMATIC, NORMOCEPHALIC - Eye Exam Eye Exam: EOMI, PERRL Pupil Exam: NORMAL ACCOMODATION, PERRL - ENT Exam ENT Exam: Mucous Membranes Moist, Normal External Ear Exam, TM's Normal Bilaterally - Neck Exam Neck Exam: Full ROM, Normal Inspection - Respiratory Exam Respiratory Exam: Clear to Ausculation Bilateral, NORMAL BREATHING PATTERN. absent: Rales, Rhonchi, Wheezes - Cardiovascular Exam Cardiovascular Exam: REGULAR RHYTHM, RRR, +S1, +S2 - GI/Abdominal Exam GI & Abdominal Exam: Soft, Normal Bowel Sounds. absent: Distended, Tenderness - Extremities Exam Extremities Exam: Full ROM, Normal Inspection - Neurological Exam Neurological Exam: Alert, Awake, CN II-XII Intact, Oriented x3 - Psychiatric Exam Psychiatric exam: Normal Affect, Normal Mood - Skin Skin Exam: Intact, Normal Color Assessment and Plan - Assessment and Plan (Free Text) Assessment: 80 yo AA female with SOB with extensive past medical history with Acute diastolic CHF, Pulmonary hypertension, Hypertension, COPD, ulcers in the intestine (no fecal transplant history). Started on diurectics. Awaiting pulmonology evaluation. Supportive care. Monitor patient. In fluid overload leading to respiratory distress. Still with issues with hypertension. The patient was started on Cardizem (diltiazem) 60 mg PO TID to improve hypertension control. She appears to be tolerating Spoke with the patient's son. Discussed with Dr. Gaytan regarding risk benefits for anticoagulation. New rash in pelvic area. Continuing with Lotrisome cream for treatment. Rash appears to have resolved. Patient received dose of Xanax for anxiety issues. Potential discharge this weekend. Continue medications for hypertension, hyperlipidemia, Atrial fibrillation, and gastric ulcers.
[2016-09-12] MEDS: Pantoprazole 40 mg EC Tab PO SCH (06:21)
[2016-09-12] MEDS: Clotrimazole/Betamethasone Cream(15 gm) TOP SCH ×2 (10:24→17:35)
[2016-09-12] MEDS: Oxycodone/Acetaminophen 5/325 mg Tab PO PRN (11:45)
[2016-09-12] MEDS: Digoxin 125 mcg (0.125 mg) Tab PO SCH (14:26)
[2016-09-12 14:27] VITALS: PULSE 64
[2016-09-12 16:04] VITALS: RESP 20; O2SAT 99
[2016-09-12 16:22] VITALS: BP 102/54; PULSE 63; TEMP 98
--- NOTE | 2016-09-12 17:17 | CP.PCM.DIS ---
Provider - Provider Date of Admission: 09/04/16 13:40 Attending physician: Amador Crum MD Primary care physician: Amador Crum MD Consults: MD Virgilio Patricio MD Time Spent in preparation of Discharge (in minutes): 45 Hospital Course - Lab Results Lab Results: Most Recent Lab Values POC Glucose (mg/dL) 141 mg/dL (65-110) H 09/11/16 11:16 - Hospital Course Hospital Course: Internal Medicine/Infectious Disease Follow Up: September 12, 2016 80 yo AA female presenting with SOB at home brought in for observation at this time. Recent discharged from the hospital last week. Improved after admission with diuretics. In TRCU for further care. New rash in pelvic area that appears fungal. Lotrisome in use which has resolved the rash. No further complaints. She is taking perocet about twice a day. - Date & Time of H&P Date of H&P: 09/04/16 Discharge Exam - Head Exam Head Exam: ATRAUMATIC, NORMOCEPHALIC - Eye Exam Eye Exam: EOMI, PERRL Pupil Exam: NORMAL ACCOMODATION, PERRL - ENT Exam ENT Exam: Mucous Membranes Moist, Normal External Ear Exam, TM's Normal Bilaterally - Neck Exam Neck exam: Full Rom, Normal Inspection - Respiratory Exam Respiratory Exam: Clear to PA & Lateral, NORMAL BREATHING PATTERN. absent: Rales, Rhonchi, Wheezes - Cardiovascular Exam Cardiovascular Exam: REGULAR RHYTHM, RRR, +S1, +S2 - GI/Abdominal Exam GI & Abdominal Exam: Normal Bowel Sounds, Soft. absent: Distended, Tenderness - Extremities Exam Extremities exam: full ROM, normal inspection - Neurological Exam Neurological exam: Alert, CN II-XII Intact, Oriented x3 - Psychiatric Exam Psychiatric exam: Normal Affect, Normal Mood - Skin Skin Exam: Intact, Normal Color Discharge Plan - Follow Up Plan Condition: GOOD Disposition: HOME/ ROUTINE Instructions: Renal Failure Diet (DC), Heart Failure (DC), Heart Failure (GEN) , Pacemaker (DC), Pacemaker (GEN), Pulmonary Edema (DC), Pulmonary Edema (GEN), Ascites (DC), Ascites (GEN) Additional Instructions: Please take your medications as prescribed by your doctor. Referrals: Amador Crum MD [Primary Care Provider] -
--- NOTE | 2016-09-16 15:38 | CP.PCM.CON ---
History of Present Illness - History of Present Illness History of Present Illness: The patient is an 80 y/o woman in the TCU. She denies shortness of breath; no chest pains. Review of Systems - Cardiovascular Cardiovascular: absent: Chest Pain - Respiratory Respiratory: absent: Dyspnea Past Patient History - Infectious Disease Hx of Infectious Diseases: None - Tetanus Immunizations Tetanus Immunization: >10 years Ago - Past Medical History & Family History Past Medical History?: Yes - Past Social History Smoking Status: Former Smoker - CARDIAC Hx Cardiac Disorders: Yes Hx Hypertension: Yes - PULMONARY Hx Respiratory Disorders: Yes (SMOKES CIGARETTES) - NEUROLOGICAL HX Cerebrovascular Accident: Yes - HEENT Hx HEENT Problems: No - RENAL Hx Chronic Kidney Disease: Yes Hx Renal (Kidney) Cancer: Yes Other/Comment: Right nephrectomy - ENDOCRINE/METABOLIC Hx Endocrine Disorders: No - HEMATOLOGICAL/ONCOLOGICAL Hx Blood Disorders: Yes Hx Cancer: Yes (RENAL CELL CA) - INTEGUMENTARY Hx Dermatological Problems: No - MUSCULOSKELETAL/RHEUMATOLOGICAL Hx Arthritis: Yes - GASTROINTESTINAL Hx Gastrointestinal Disorders: No - GENITOURINARY/GYNECOLOGICAL Hx Genitourinary Disorders: No Hx Reproductive Disorders: No - PSYCHIATRIC Hx Psychophysiologic Disorder: Yes Hx Anxiety: Yes Hx Substance Use: No - SURGICAL HISTORY Hx Surgeries: Yes Other/Comment: Right nephrectomy - ANESTHESIA Hx Anesthesia: Yes Hx Anesthesia Reactions: No Hx Malignant Hyperthermia: No Meds Home Medications: Home Medication List Medication Instructions Recorded Confirmed Type ALPRAZolam [Xanax] 0.5 mg PO DAILY PRN #30 tab 09/12/16 Rx Atorvastatin [Lipitor] 20 mg PO DAILY #30 09/12/16 Rx Digoxin [Lanoxin] 0.125 mg PO DAILY #30 tab 09/12/16 Rx Donepezil [Aricept] 10 mg PO HS #30 tab 09/12/16 Rx Furosemide [Lasix] 40 mg PO DAILY #30 tab 09/12/16 Rx Metoprolol Tartrate [Lopressor] 25 mg PO BID #60 tab 09/12/16 Rx Pantoprazole [Protonix EC Tab] 40 mg PO DAILY #30 ect 09/12/16 Rx amLODIPine [Norvasc] 5 mg PO DAILY #30 tab 09/12/16 Rx hydrALAZINE [Apresoline] 25 mg PO QID #120 tab 09/12/16 Rx oxyCODONE/Acetaminophen [Percocet 1 tab PO Q12 PRN #20 09/12/16 Rx 5/325 mg Tab] oxyCODONE/Acetaminophen [Percocet 1 tab PO Q12 PRN #20 tab 09/12/16 Rx 5/325 mg Tab] Allergies/Adverse Reactions: Allergies Allergy/AdvReac Type Severity Reaction Status Date / Time No Known Allergies Allergy Verified 09/03/16 14:05 Physical Exam - Neck Exam Additional comments: Negative JVD - Respiratory Exam Respiratory Exam: absent: Rales - Cardiovascular Exam Cardiovascular Exam: +S1, +S2 - Extremities Exam Extremities exam: Negative for: pedal edema Results - Vital Signs Recent Vital Signs: 09/07/16: BP: 132/70. HR: 70s. Last Vital Signs Temp 98 F 09/12/16 16:00 Pulse 63 09/12/16 17:34 Resp 20 09/12/16 16:00 BP 102/54 L 09/12/16 17:34 Pulse Ox 99 09/12/16 16:00 - Labs Labs: 09/07/16: Laboratories reveal hemoglobin that has not been measured for several days. No chemistries were done. Assessment & Plan (1) CHF (congestive heart failure) Status: Acute Comment: resolution (2) Pulmonary hypertension Status: Acute (3) COPD, severe Status: Acute (4) Anemia Status: Chronic Priority: Medium (5) HTN (hypertension) Status: Chronic Priority: Medium - Assessment and Plan (Free Text) Plan: Given these findings, we will continue her Digoxin and will change her Lasix to PO. - Date & Time Date: 09/07/16
== END 2016-09-12 19:23 | disposition home or self-care (01) | DRG 293 ==
LOC: TRCU 13:40
PROVIDERS: ADMIT Internal Medicine Infectious Disease; ATTEND Internal Medicine Infectious Disease
PROC: F07Z9FZ Gait Training/Functional Ambulation Treatment using Assistive, Adaptive, Supportive or Protective Equipment (ICD-10-PCS; principal; 2016-09-07)
PROC: F07M6ZZ Therapeutic Exercise Treatment of Musculoskeletal System - Whole Body (ICD-10-PCS; 2016-09-07)
PROC: F08Z4ZZ Home Management Treatment (ICD-10-PCS; 2016-09-07)
DX: I11.0 Hypertensive heart disease with heart failure (principal); I27.2 Other secondary pulmonary hypertension; J44.9 Chronic obstructive pulmonary disease, unspecified; K25.9 Gastric ulcer, unspecified as acute or chronic, without hemorrhage or perforation; I48.91 Unspecified atrial fibrillation; B35.6 Tinea cruris; R55 Syncope and collapse; E78.5 Hyperlipidemia, unspecified; E78.00 Pure hypercholesterolemia, unspecified; I50.31 Acute diastolic (congestive) heart failure; F41.9 Anxiety disorder, unspecified; Z79.899 Other long term (current) drug therapy; Z85.528 Personal history of other malignant neoplasm of kidney; Z82.49 Family history of ischemic heart disease and other diseases of the circulatory system; F17.210 Nicotine dependence, cigarettes, uncomplicated; Z90.5 Acquired absence of kidney

== ENCOUNTER 2016-10-30 23:25 | Inpatient (IN) | payer MEDICARE ==
[2016-10-30 23:32] VITALS: BMI 24.9
[2016-10-31] MEDS ORDERED: Sodium Chloride 0.9% 1,000 ML IV STA ×2 (00:09→02:07)
--- NOTE | 2016-10-31 00:14 | ED PDOC ---
Arrival/HPI - General Chief Complaint: GI Problem Time Seen by Provider: 10/30/16 23:32 Historian: Patient - History of Present Illness Narrative History of Present Illness (Text): 10/31/16 00:03 A 80 year old female, whose past medical history includes afib, RCC s/p right nephrectomy, HTN, PATRICIA on CKD, sciatica, hypercholesterolemia, Anemia and CHF, presents to the emergency department complaining of diarrhea prior to arrival. Patient reports experiencing abdominal cramping but denies any fever, chills, nausea, vomiting, constipation, or any other complaints. Time/Duration: Prior to Arrival Symptom Onset: Sudden Symptom Course: Unchanged Quality: Cramping Activities at Onset: Rest, Light Past Medical History - Provider Review Nursing Documentation Reviewed: Yes - Infectious Disease Hx of Infectious Diseases: None - Tetanus Immunization Tetanus Immunization: >10 years Ago - Cardiac Hx Cardiac Disorders: Yes Hx Hypertension: Yes - Pulmonary Hx Respiratory Disorders: Yes (SMOKES CIGARETTES) - Neurological HX Cerebrovascular Accident: Yes - HEENT Hx HEENT Disorder: No - Renal Hx Renal Disorder: Yes Hx Renal Cancer: Yes Other/Comment: Right nephrectomy - Endocrine/Metabolic Hx Endocrine Disorders: No - Hematological/Oncological Hx Blood Disorders: Yes Hx Cancer: Yes (RENAL CELL CA) - Integumentary Hx Dermatological Disorder: No - Musculoskeletal/Rheumatological Hx Arthritis: Yes - Gastrointestinal Hx Gastrointestinal Disorders: No - Genitourinary/Gynecological Hx Genitourinary Disorders: No Hx Reproductive Disorders: No - Psychiatric Hx Psychophysiologic Disorder: Yes Hx Anxiety: Yes Hx Substance Use: No - Surgical History Other/Comment: Right nephrectomy - Anesthesia Hx Anesthesia: Yes Hx Anesthesia Reactions: No Hx Malignant Hyperthermia: No Family/Social History - Physician Review Nursing Documentation Reviewed: Yes Family/Social History: No Known Family HX Smoking Status: Former Smoker Hx Alcohol Use: No Hx Substance Use: No Allergies/Home Meds Allergies/Adverse Reactions: Allergies No Known Allergies Allergy (Verified 10/30/16 23:32) Home Medications: Home Meds Medication Instructions Recorded Confirmed ALPRAZolam [Xanax] 0.5 mg PO BID PRN 10/31/16 10/31/16 Metoprolol Tartrate [Lopressor] 100 mg PO BID 10/31/16 10/31/16 Warfarin [Coumadin] 3 mg PO DAILY 10/31/16 10/31/16 Review of Systems - Physician Review All systems were reviewed & negative as marked: Yes - Review of Systems Constitutional: absent: Fevers, Night Sweats Gastrointestinal: Abdominal Pain (cramping sensation), Diarrhea. absent: Constipation, Nausea, Vomiting Physical Exam Vital Signs Reviewed: Yes Vital Signs Temp Pulse Resp BP Pulse Ox 10/31/16 02:50 62 18 137/78 98 10/30/16 23:33 97.7 F 50 L 17 152/60 H 98 Temperature: Afebrile Blood Pressure: Normal Pulse: Bradycardic Respiratory Rate: Normal Appearance: Positive for: Well-Appearing Pain Distress: None Mental Status: Positive for: Alert and Oriented X 3 - Systems Exam Head: Present: Atraumatic, Normocephalic Pupils: Present: PERRL Extroacular Muscles: Present: EOMI Conjunctiva: Present: Normal Mouth: Present: Moist Mucous Membranes Neck: Present: Normal Range of Motion Respiratory/Chest: Present: Clear to Auscultation, Good Air Exchange. No: Respiratory Distress, Accessory Muscle Use Cardiovascular: Present: Regular Rate and Rhythm, Normal S1, S2. No: Murmurs Abdomen: Present: Normal Bowel Sounds. No: Tenderness, Distention, Peritoneal Signs Back: Present: Normal Inspection Upper Extremity: Present: Normal Inspection. No: Cyanosis, Edema Lower Extremity: Present: Normal Inspection. No: Edema Neurological: Present: GCS=15, CN II-XII Intact, Speech Normal Skin: Present: Warm, Dry, Normal Color. No: Rashes Psychiatric: Present: Alert, Oriented x 3, Normal Insight, Normal Concentration Medical Decision Making ED Course and Treatment: 10/31/16 00:09 Impression: 80 year old female with diarrhea and abdominal cramping. Normal physical exam. Plan: -- EKG -- Abd/Pelvis CT -- Labs -- IV Fluids -- Blood Culture -- Urinalysis -- Reassess and disposition Prior Visits: Notes and results from previous visits were reviewed. Patient was last seen in the emergency department on 09/03/2016 for shortness of breath. Patient was admitted. Progress Notes: 10/31/16 00:37 EKG: Ordered, reviewed, and independently interpreted the EKG. Rate : 56 BPM Rhythm : Atrial flutter with variable AV block, RBBB, Left anterior fascicular block, Bifascicular block. Interpretation : Left ventricular hypertrophy with repolarization abnormality. Anterolateral infarct, age undetermined. Abnormal ECG. Comparison : No previous EKG for comparison. 10/31/2016 01:26 Abd/Pelvis CT FINDINGS: Lower thorax: The bilateral lung bases are clear. ABDOMEN: Liver: No acute findings Gallbladder and bile ducts: Multiple stones are identified within the gallbladder, which is otherwise unremarkable. No intra-extrahepatic biliary ductal dilation. Pancreas: Limited evaluation secondary to the lack of intravenous contrast. Spleen: No acute findings. Adrenals: No acute findings. Kidneys and ureters: The right kidney is absent. No obstructing stones. No hydronephrosis. PELVIS: Bladder: No acute findings. Reproductive: The uterus is surgically absent. Appendix: The appendix is not definitively visualized, however no pericecal inflammatory changes identified to suggest the presence of acute appendicitis. ABDOMEN and PELVIS: Stomach and bowel: No acute findings. Fat containing umbilical hernia is noted. Peritoneum: No acute findings. Lymph nodes: Limited evaluation without intravenous contrast. Vasculature: Heavily calcified atherosclerotic disease. Bones: No acute fracture. Levoscoliotic curvature of the lumbar spine is detected. Moderate degenerative disease is noted, with osteophyte formation, disc space narrowing, endplate changes and vacuum phenomena. IMPRESSION: Absence of the right kidney. Cholelithiasis. Multiple nonacute findings, as detailed above. Dictated and Authenticated by: Marcela Holden MD 10/31/16 02:[address] Crum. will admit for pancreatitis 11/04/16 01:10 - Lab Interpretations Microbiology Results: Microbiology Results 10/31/16 00:50 Blood-Venous Blood Culture - Preliminary NO GROWTH AFTER 3 DAYS 10/31/16 00:30 Blood-Venous Blood Culture - Preliminary NO GROWTH AFTER 3 DAYS Lab Results: 10/31/16 00:30 10/31/16 00:30 Lab Results 10/31/16 00:30: Sodium 144, Potassium 5.5 H, Chloride 109 H, Carbon Dioxide 24, Anion Gap 17, BUN 65 H, Creatinine 1.9 H, Est GFR ( Amer) 31, Est GFR ( Non-Af Amer) 25, Random Glucose 91, Calcium 9.3, Total Bilirubin 0.2, AST 34, ALT 28, Alkaline Phosphatase 69, Lactate Dehydrogenase 658, Total Creatine Kinase 56, Troponin I 0.04 D, Total Protein 8.0, Albumin 4.0, Globulin 4.0, Albumin/Globulin Ratio 1.0 L, Amylase 184 H, Lipase 528 H 10/31/16 00:30: PT 45.1 H*, INR 4.18 H*, APTT 39.8 H 10/31/16 00:30: WBC 6.2, RBC 3.95, Hgb 10.7 L, Hct 34.5 L, MCV 87.3, MCH 27.1, MCHC 31.0, RDW 22.6 H, Plt Count 232, MPV 10.3, Gran % 57.2, Lymph % (Auto) 32.6 , Harding % (Auto) 8.3 H, Eos % (Auto) 1.6, Baso % (Auto) 0.3, Gran # 3.52, Lymph # 2.0, Harding # 0.5, Eos # 0.1, Baso # 0.02 I have reviewed the lab results: Yes - RAD Interpretation Radiology Orders: 10/31/16 00:09 ABD & PELVIS W/O PO OR IV CONT [CT] Stat - Medication Orders Current Medication Orders: Discontinued Medications Acetaminophen (Tylenol 325mg Tab) 650 mg PO Q4H PRN PRN Reason: Pain, Mild (1-3) Last Admin: 11/02/16 21:27 Dose: 650 mg Alprazolam (Xanax) 0.5 mg PO HS PRN; Protocol PRN Reason: Anxiety Last Admin: 11/02/16 21:28 Dose: 0.5 mg Amlodipine Besylate (Norvasc) 5 mg PO DAILY REPLACED BY [facility] Last Admin: 11/03/16 10:31 Dose: 5 mg Atorvastatin Calcium (Lipitor) 20 mg PO DIN REPLACED BY [facility] Last Admin: 11/02/16 17:19 Dose: 20 mg Digoxin (Lanoxin) 0.125 mg PO 1400 REPLACED BY [facility] Last Admin: 11/03/16 13:58 Dose: 0.125 mg Diltiazem HCl (Cardizem) 60 mg PO Q8 REPLACED BY [facility] Last Admin: 11/03/16 06:54 Dose: Not Given Non-Admin Reason: BP Parameters Not Met Diphenhydramine HCl (Benadryl) 25 mg PO STAT STA Stop: 11/03/16 01:12 Last Admin: 11/03/16 01:22 Dose: 25 mg Donepezil HCl (Aricept) 10 mg PO HS REPLACED BY [facility] Last Admin: 11/02/16 21:25 Dose: 10 mg Sodium Chloride (Sodium Chloride 0.9%) 1,000 mls @ 100 mls/hr IV .Q10H STA Stop: 10/31/16 10:08 Last Admin: 10/31/16 00:35 Dose: 100 mls/hr Sodium Chloride (Sodium Chloride 0.9%) 1,000 mls @ 100 mls/hr IV .Q10H STA Stop: 10/31/16 12:06 Last Admin: 10/31/16 02:37 Dose: Sodium Chloride (Sodium Chloride 0.45%) 1,000 mls @ 75 mls/hr IV .[id number] REPLACED BY [facility] Last Admin: 11/02/16 23:00 Dose: 75 mls/hr Losartan Potassium (Cozaar) 100 mg PO DAILY REPLACED BY [facility] Last Admin: 11/03/16 10:31 Dose: 100 mg Ondansetron HCl (Zofran Inj) 4 mg IVP Q6H PRN PRN Reason: Nausea/Vomiting Oxycodone/Acetaminophen (Percocet 5/325 Mg Tab) 1 tab PO STAT STA Stop: 11/01/16 06:50 Last Admin: 11/01/16 07:04 Dose: 1 tab Oxycodone/Acetaminophen (Percocet 5/325 Mg Tab) 1 tab PO Q12H PRN PRN Reason: Pain, severe (8-10) Stop: 11/04/16 11:23 Last Admin: 11/03/16 06:06 Dose: 1 tab Pantoprazole Sodium (Protonix Ec Tab) 40 mg PO 0600 REPLACED BY [facility] Last Admin: 11/03/16 06:06 Dose: 40 mg Sodium Polystyrene Sulfonate (Kayexalate Oral Susp) 15 gm PO STAT STA Stop: 10/31/16 02:45 Last Admin: 10/31/16 02:53 Dose: 15 gm - Scribe Statement The provider has reviewed the documentation as recorded by the [facility] Provider Luliibe Attestation: All medical record entries made by the Luliibnoemi were at my direction and personally dictated by me. I have reviewed the chart and agree that the record accurately reflects my personal performance of the history, physical exam, medical decision making, and the department course for this patient. I have also personally directed, reviewed, and agree with the discharge instructions and disposition. Disposition/Present on Arrival - Present on Arrival Any Indicators Present on Arrival: No History of DVT/PE: No History of Uncontrolled Diabetes: No Urinary Catheter: No History of Decub. Ulcer: No History Surgical Site Infection Following: None - Disposition Have Diagnosis and Disposition been Completed?: Yes Diagnosis: Pancreatitis Disposition: HOSPITALIZED Disposition Time: 02:00 Condition: GOOD
[2016-10-31 01:04] LABS: BASO # 0.02 K/mm3 (0.0-2.0); BASO % 0.3 % (0.0-3.0); EOS # 0.1 (0.0-0.7); EOS % 1.6 % (1.5-5.0); GRAN # 3.52 (1.4-6.5); GRAN % 57.2 % (50.0-68.0); HEMATOCRIT 34.5 % (36.0-48.0); LYMPH % 32.6 % (22.0-35.0); MEAN CELL VOLUME 87.3 fl (80.0-105.0); MEAN CORPUSCULAR HEMOGLOBIN 27.1 pg (25.0-35.0); MEAN PLATELET VOLUME 10.3 fl (7.0-11.0); MONO # 0.5 (0.1-0.6); MONO % 8.3 % (1.0-6.0); RED CELL DISTRIBUTION WIDTH 22.6 % (11.5-14.5); WHITE BLOOD COUNT 6.2 10^3/ul (4.5-11.0)
[2016-10-31 01:09] LABS: BILIRUBIN,TOTAL 0.2 mg/dL (0.2-1.3); CALCIUM 9.3 mg/dL (8.4-10.5); POTASSIUM 5.5 mmol/L (3.6-5.0)
[2016-10-31 01:16] LABS: PARTIAL THROMBOPLASTIN TIME 39.8 Seconds (23.7-30.8)
[2016-10-31 01:19] LABS: INR 4.18 (0.93-1.08)
[2016-10-31 01:20] LABS: TROPONIN I 0.04 ng/mL
--- NOTE | 2016-10-31 01:27 | CT ---
EXAM: CT Abdomen and Pelvis Without Intravenous Contrast CLINICAL HISTORY: 80 years old, female; Pain; Abdominal pain; Additional info: Abd pain TECHNIQUE: Axial computed tomography images of the abdomen and pelvis without intravenous contrast. All CT scans at this facility use one or more dose reduction techniques, viz.: automated exposure control; ma/kV adjustment per patient size (including targeted exams where dose is matched to indication; i.e. head); or iterative reconstruction technique. Coronal and sagittal reformatted images were created and reviewed. COMPARISON: CT - ABD PELVIS PO CONTRAST ONLY 04/11/2016 1:45:25 PM FINDINGS: Lower thorax: The bilateral lung bases are clear. ABDOMEN: Liver: No acute findings Gallbladder and bile ducts: Multiple stones are identified within the gallbladder, which is otherwise unremarkable. No intra-extrahepatic biliary ductal dilation. Pancreas: Limited evaluation secondary to the lack of intravenous contrast. Spleen: No acute findings. Adrenals: No acute findings. Kidneys and ureters: The right kidney is absent. No obstructing stones. No hydronephrosis. PELVIS: Bladder: No acute findings. Reproductive: The uterus is surgically absent. Appendix: The appendix is not definitively visualized, however no pericecal inflammatory changes identified to suggest the presence of acute appendicitis. ABDOMEN and PELVIS: Stomach and bowel: No acute findings. Fat containing umbilical hernia is noted. Peritoneum: No acute findings. Lymph nodes: Limited evaluation without intravenous contrast. Vasculature: Heavily calcified atherosclerotic disease. Bones: No acute fracture. Levoscoliotic curvature of the lumbar spine is detected. Moderate degenerative disease is noted, with osteophyte formation, disc space narrowing, endplate changes and vacuum phenomena. IMPRESSION: Absence of the right kidney. Cholelithiasis. Multiple nonacute findings, as detailed above.
[2016-10-31] MEDS ORDERED: Sod Polystyrene Sulf 15 gm/60 ml Oral Susp PO STA (02:44)
[2016-10-31 15:55] LABS: MEAN CELL VOLUME 87.9 fl (80.0-105.0); MEAN CORPUSCULAR HEMOGLOBIN 27.4 pg (25.0-35.0); MEAN CORPUSCULAR HGB CONC 31.2 g/dl (31.0-37.0); RED CELL DISTRIBUTION WIDTH 22.7 % (11.5-14.5); WHITE BLOOD COUNT 5.2 10^3/ul (4.5-11.0)
[2016-10-31 16:03] LABS: BILIRUBIN,TOTAL 0.4 mg/dL (0.2-1.3); POTASSIUM 4.9 mmol/L (3.6-5.0); TOTAL PROTEIN 7.9 g/dL (5.8-8.3)
[2016-10-31 16:06] LABS: PARTIAL THROMBOPLASTIN TIME 40.8 Seconds (23.7-30.8)
[2016-10-31 16:20] LABS: INR 3.96 (0.93-1.08)
[2016-10-31] MEDS ORDERED: Digoxin 0.05 mg/mL Elixir 5mL PO SCH (17:15)
--- NOTE | 2016-10-31 17:55 | CP.PCM.HP ---
History of Present Illness - History of Present Illness History of Present Illness: Internal Medicine/Infectious Disease H&P: October 31, 2016 80 yo AA female presenting with diarrhea and abdominal pain/cramping. No other complaints. When laboratories performed, the patient was found to have abnormal electrolytes and significant dehydration. Elevated Amylase and Lipase. Decreased renal function. PMHx: Hypertension, Anxiety, history of renal cancer/mass, sciatica, hypercholesterolemia, prior tobacco use history, atrial fibrillation. Last hospitalization showed ventricular fibrillation although it appears that occurred only once. Mass in right kidney that led to nephrectomy done by Dr. Hannon several years ago. PSHx: Nephrectomy, right side Allergies: NKDA Social Hx: No recent tobacco, EtOH, or illicit drug use. Recent loss of her brother ( occurred almost a year ago). Prior tobacco user. Active Medications Acetaminophen (Tylenol 325mg Tab) 650 mg PO Q4H PRN PRN Reason: Pain, Mild (1-3) Last Admin: 10/31/16 08:21 Dose: 650 mg Alprazolam (Xanax) 0.5 mg PO HS PRN; Protocol PRN Reason: Anxiety Amlodipine Besylate (Norvasc) 5 mg PO DAILY [facility] Atorvastatin Calcium (Lipitor) 20 mg PO DIN [facility] Digoxin (Lanoxin) 0.125 mg PO 1400 [facility] Diltiazem HCl (Cardizem) 60 mg PO Q8 [facility] Donepezil HCl (Aricept) 10 mg PO HS [facility] Sodium Chloride (Sodium Chloride 0.45%) 1,000 mls @ 75 mls/hr IV .[id number] [facility] Losartan Potassium (Cozaar) 100 mg PO DAILY [facility] Ondansetron HCl (Zofran Inj) 4 mg IVP Q6H PRN PRN Reason: Nausea/Vomiting Pantoprazole Sodium (Protonix Ec Tab) 40 mg PO 0600 [facility] Family Hx: CAD in multiple family members ROS: no fevers, chills, nausea, vomiting, diarrhea, headaches, dizziness, chest pain , abdominal pain, melena, hematuria, hematemesis, hematochezia, SOB, wheezing, vision loss, loss of consciousness, hearing loss. She has anxiety. Present on Admission - Present on Admission Any Indicators Present on Admission: No Past Patient History - Infectious Disease Hx of Infectious Diseases: None - Tetanus Immunizations Tetanus Immunization: >10 years Ago - Past Medical History & Family History Past Medical History?: Yes - Past Social History Smoking Status: Former Smoker - CARDIAC Hx Cardiac Disorders: Yes (a-fib) Hx Congestive Heart Failure: Yes Hx Hypercholesterolemia: Yes Hx Hypertension: Yes - PULMONARY Hx Respiratory Disorders: Yes (SMOKES CIGARETTES) - NEUROLOGICAL HX Cerebrovascular Accident: Yes - HEENT Hx HEENT Problems: No - RENAL Hx Chronic Kidney Disease: Yes Hx Renal (Kidney) Cancer: Yes Hx Renal Failure: Yes (ckd) Other/Comment: Right nephrectomy - ENDOCRINE/METABOLIC Hx Endocrine Disorders: No - HEMATOLOGICAL/ONCOLOGICAL Hx Blood Disorders: Yes Hx Cancer: Yes (RENAL CELL CA) - INTEGUMENTARY Hx Dermatological Problems: No - MUSCULOSKELETAL/RHEUMATOLOGICAL Hx Falls: No - GASTROINTESTINAL Hx Gastrointestinal Disorders: No - GENITOURINARY/GYNECOLOGICAL Hx Genitourinary Disorders: No - PSYCHIATRIC Hx Anxiety: Yes - SURGICAL HISTORY Other/Comment: Right nephrectomy - ANESTHESIA Hx Anesthesia: Yes Hx Anesthesia Reactions: No Hx Malignant Hyperthermia: No Meds Allergies/Adverse Reactions: Allergies Allergy/AdvReac Type Severity Reaction Status Date / Time No Known Allergies Allergy Verified 10/30/16 23:32 Physical Exam - Constitutional Appears: Non-toxic, No Acute Distress, Chronically Ill - Head Exam Head Exam: ATRAUMATIC, NORMOCEPHALIC - Eye Exam Eye Exam: EOMI, PERRL Pupil Exam: NORMAL ACCOMODATION, PERRL - ENT Exam ENT Exam: Mucous Membranes Moist, Normal External Ear Exam, TM's Normal Bilaterally - Neck Exam Neck exam: Positive for: Full Rom, Normal Inspection - Respiratory Exam Respiratory Exam: Clear to Auscultation Bilateral, NORMAL BREATHING PATTERN. absent: Rales, Rhonchi, Wheezes - Cardiovascular Exam Cardiovascular Exam: REGULAR RHYTHM, RRR, +S1, +S2 - GI/Abdominal Exam GI & Abdominal Exam: Normal Bowel Sounds, Soft. absent: Distended, Tenderness - Extremities Exam Extremities exam: Positive for: full ROM, normal inspection - Neurological Exam Neurological exam: Alert, CN II-XII Intact, Oriented x3 - Psychiatric Exam Psychiatric exam: Normal Affect, Normal Mood - Skin Skin Exam: Intact, Normal Color Results - Vital Signs Recent Vital Signs: Last Vital Signs Temp 97.8 F 10/31/16 03:09 Pulse 56 L 10/31/16 03:09 Resp 20 10/31/16 03:09 BP 149/73 10/31/16 03:09 Pulse Ox 98 10/31/16 02:50 - Labs Result Diagrams: 10/31/16 15:05 10/31/16 15:05 Labs: Laboratory Results - last 24 hr 10/31/16 10/31/16 10/31/16 15:05 15:05 15:05 WBC 5.2 RBC 3.87 Hgb 10.6 L Hct 34.0 L MCV 87.9 MCH 27.4 MCHC 31.2 RDW 22.7 H Plt Count 224 MPV 10.0 PT 42.8 H* INR 3.96 H* APTT 40.8 H Sodium 147 Potassium 4.9 Chloride 114 H Carbon Dioxide 23 Anion Gap 15 BUN 51 H Creatinine 1.6 H Est GFR ( Amer) 38 Est GFR (Non-Af Amer) 31 Random Glucose 85 Calcium 9.0 Total Bilirubin 0.4 AST 34 ALT 28 Alkaline Phosphatase 71 Total Protein 7.9 Albumin 3.9 Globulin 4.0 Albumin/Globulin Ratio 1.0 L Assessment & Plan - Assessment and Plan (Free Text) Assessment: 80 with diarrhea and abdominal cramping. Found to be dehydrated. Multiple electrolyte abnormalities and elevated amylase and lipase levels. Supportive care. GI evaluation. CT of the abdomen showed no particular abnormalities. Recheck labs in the morning. Discharge planning. Thank you for allowing me to participate in the care of the patient, we will follow with you. Decision To Admit - Pt Status Changed To: Hospital Disposition Of: Inpatient Admission - Admit Certification Admit to Inpatient:: After my assessment, the patient will require hospitalization for at least two midnights. This is because of the severity of symptoms shown, intensity of services needed, and/or the medical risk in this patient being treated as an outpatient. - . Bed Request Type: Med/Surg Admitting Physician: Amador Crum
[2016-10-31] MEDS: Sodium Chloride 0.45% 1,000 ML IV SCH (18:11)
--- NOTE | 2016-11-01 01:32 | CARD ---
APPROVED REPORT EKG Measurement Heart [id number] <Conclusion> Atrial flutter with variable AV block Right bundle branch block Left anterior fascicular block Bifascicular block Left ventricular hypertrophy with repolarization abnormality Anterolateral infarct, age undetermined Abnormal ECG
[2016-11-01 03:14] LABS: URINE BILIRUBIN NEGATIVE (NEGATIVE); URINE BLOOD NEGATIVE (NEGATIVE); URINE GLUCOSE (UA) NEGATIVE (NEGATIVE); URINE KETONE NEGATIVE (NEGATIVE); URINE LEUKOCYTE ESTERASE SMALL Leu/uL (NEGATIVE); URINE PROTEIN 30 mg/dL (<30 mg/dL); URINE UROBILINOGEN 0.2 E.U./dL (<1 E.U./dL)
[2016-11-01 03:18] LABS: URINE APPEARANCE SL CLOUDY (CLEAR); URINE COLOR YELLOW (YELLOW)
[2016-11-01 03:29] LABS: URINE BACTERIA RARE (NEG); URINE EPITHELIAL CELLS 0 - 2 /hpf (0-5); URINE RBC 0 - 2 /hpf (0-2)
[2016-11-01] MEDS: Pantoprazole 40 mg EC Tab PO SCH (06:00)
[2016-11-01 06:31] LABS: HEMATOCRIT 29.4 % (36.0-48.0); MEAN CELL VOLUME 86.5 fl (80.0-105.0); MEAN CORPUSCULAR HEMOGLOBIN 27.4 pg (25.0-35.0); MEAN CORPUSCULAR HGB CONC 31.6 g/dl (31.0-37.0); PLATELET COUNT 246 10^3/uL (120.0-450.0); RED CELL DISTRIBUTION WIDTH 23.3 % (11.5-14.5); WHITE BLOOD COUNT 5.5 10^3/ul (4.5-11.0)
[2016-11-01] MEDS ORDERED: Oxycodone/Acetaminophen 5/325 mg Tab PO STA (06:49)
--- NOTE | 2016-11-01 07:02 | CP.PCM.PN ---
Subjective - Date & Time of Evaluation Date of Evaluation: 11/01/16 Time of Evaluation: 07:00 - Subjective Subjective: She complains of pain in left thigh and hip. Denies injury.Admits to have arthritis. States that she always gets percocet from her Doctor, . Has no other complaints now. Medical record was reviewed. This 80 year old woman was admitted with cramping abdominal pain, diarrhoea, dehydration, renal insufficiency. Has PMH of HTN, renal cancer/mass, anxiety, sciatica, HLD,atrial fibrillation, right nephrectomy. Objective - Vital Signs/Intake and Output Vital Signs (last 24 hours): Temp Pulse Resp BP Pulse Ox 98.7 F 63 20 136/66 100 10/31/16 23:34 11/01/16 06:01 10/31/16 23:34 11/01/16 06:01 10/31/16 23:34 Intake and Output: 11/01/16 11/01/16 06:59 18:59 Intake Total 1800 Balance 1800 - Medications Medications: Current Medications Acetaminophen (Tylenol 325mg Tab) 650 mg PO Q4H PRN PRN Reason: Pain, Mild (1-3) Last Admin: 11/01/16 02:53 Dose: 650 mg Alprazolam (Xanax) 0.5 mg PO HS PRN; Protocol PRN Reason: Anxiety Last Admin: 10/31/16 22:34 Dose: 0.5 mg Amlodipine Besylate (Norvasc) 5 mg PO DAILY [facility] Last Admin: 10/31/16 18:10 Dose: 5 mg Atorvastatin Calcium (Lipitor) 20 mg PO DIN [facility] Last Admin: 10/31/16 18:10 Dose: 20 mg Digoxin (Lanoxin) 0.125 mg PO 1400 [facility] Diltiazem HCl (Cardizem) 60 mg PO Q8 [facility] Last Admin: 11/01/16 06:01 Dose: 60 mg Donepezil HCl (Aricept) 10 mg PO HS [facility] Last Admin: 10/31/16 21:44 Dose: 10 mg Sodium Chloride (Sodium Chloride 0.45%) 1,000 mls @ 75 mls/hr IV .[id number] [facility] Last Admin: 10/31/16 18:11 Dose: 75 mls/hr Losartan Potassium (Cozaar) 100 mg PO DAILY [facility] Last Admin: 10/31/16 18:10 Dose: 100 mg Ondansetron HCl (Zofran Inj) 4 mg IVP Q6H PRN PRN Reason: Nausea/Vomiting Pantoprazole Sodium (Protonix Ec Tab) 40 mg PO 0600 [facility] Last Admin: 11/01/16 06:00 Dose: 40 mg - Labs Labs: 11/01/16 06:00 10/31/16 15:05 PT 42.8 Seconds (9.9-11.8) H* 10/31/16 15:05 INR 3.96 (0.93-1.08) H* 10/31/16 15:05 APTT 40.8 Seconds (23.7-30.8) H 10/31/16 15:05 Laboratory Last Values WBC 5.5 10^3/ul (4.5-11.0) 11/01/16 06:00 RBC 3.40 10^6/uL (3.5-6.1) L 11/01/16 06:00 Hgb 9.3 g/dL (12.0-16.0) L 11/01/16 06:00 Hct 29.4 % (36.0-48.0) L 11/01/16 06:00 MCV 86.5 fl (80.0-105.0) 11/01/16 06:00 MCH 27.4 pg (25.0-35.0) 11/01/16 06:00 MCHC 31.6 g/dl (31.0-37.0) 11/01/16 06:00 RDW 23.3 % (11.5-14.5) H 11/01/16 06:00 Plt Count 246 10^3/uL (120.0-450.0) 11/01/16 06:00 MPV 10.0 fl (7.0-11.0) 10/31/16 15:05 Gran % 57.2 % (50.0-68.0) 10/31/16 00:30 Lymph % (Auto) 32.6 % (22.0-35.0) 10/31/16 00:30 [place] % (Auto) 8.3 % (1.0-6.0) H 10/31/16 00:30 Eos % (Auto) 1.6 % (1.5-5.0) 10/31/16 00:30 Baso % (Auto) 0.3 % (0.0-3.0) 10/31/16 00:30 Gran # 3.52 (1.4-6.5) 10/31/16 00:30 Lymph # 2.0 (1.2-3.4) 10/31/16 00:30 [place] # 0.5 (0.1-0.6) 10/31/16 00:30 Eos # 0.1 (0.0-0.7) 10/31/16 00:30 Baso # 0.02 K/mm3 (0.0-2.0) 10/31/16 00:30 PT 42.8 Seconds (9.9-11.8) H* 10/31/16 15:05 INR 3.96 (0.93-1.08) H* 10/31/16 15:05 APTT 40.8 Seconds (23.7-30.8) H 10/31/16 15:05 Sodium 147 mmol/L (132-148) 10/31/16 15:05 Potassium 4.9 mmol/L (3.6-5.0) 10/31/16 15:05 Chloride 114 mmol/L (98-107) H 10/31/16 15:05 Carbon Dioxide 23 mmol/L (21-33) 10/31/16 15:05 Anion Gap 15 (10-20) 10/31/16 15:05 BUN 51 mg/dL (7-21) H 10/31/16 15:05 Creatinine 1.6 mg/dL (0.5-1.4) H 10/31/16 15:05 Est GFR ( Amer) 38 10/31/16 15:05 Est GFR (Non-Af Amer) 31 10/31/16 15:05 Random Glucose 85 mg/dL (70-110) 10/31/16 15:05 Calcium 9.0 mg/dL (8.4-10.5) 10/31/16 15:05 Total Bilirubin 0.4 mg/dL (0.2-1.3) 10/31/16 15:05 AST 34 U/L (15-39) 10/31/16 15:05 ALT 28 U/L (7-56) 10/31/16 15:05 Alkaline Phosphatase 71 U/L (38-133) 10/31/16 15:05 Lactate Dehydrogenase 658 U/L (333-699) 10/31/16 00:30 Total Creatine Kinase 56 U/L (35-230) 10/31/16 00:30 Troponin I 0.04 ng/mL D 10/31/16 00:30 Total Protein 7.9 g/dL (5.8-8.3) 10/31/16 15:05 Albumin 3.9 g/dL (3.0-4.8) 10/31/16 15:05 Globulin 4.0 gm/dL 10/31/16 15:05 Albumin/Globulin Ratio 1.0 (1.1-1.8) L 10/31/16 15:05 Amylase 184 U/L (35-125) H 10/31/16 00:30 Lipase 528 U/L (23-300) H 10/31/16 00:30 Urine Color Yellow (YELLOW) 11/01/16 03:00 Urine Appearance Sl cloudy (CLEAR) 11/01/16 03:00 Urine pH 6.0 (4.7-8.0) 11/01/16 03:00 Ur Specific [place] 1.020 (1.005-1.035) 11/01/16 03:00 Urine Protein 30 mg/dL (<30 mg/dL) H 11/01/16 03:00 Urine Glucose (UA) Negative mg/dL (NEGATIVE) 11/01/16 03:00 Urine Ketones Negative mg/dL (NEGATIVE) 11/01/16 03:00 Urine Blood Negative (NEGATIVE) 11/01/16 03:00 Urine Nitrate Negative (NEGATIVE) 11/01/16 03:00 Urine Bilirubin Negative (NEGATIVE) 11/01/16 03:00 Urine Urobilinogen 0.2 E.U./dL (<1 E.U./dL) 11/01/16 03:00 Ur Leukocyte Esterase Small Chidi/uL (NEGATIVE) H 11/01/16 03:00 Urine RBC 0 - 2 /hpf (0-2) 11/01/16 03:00 Urine WBC 2 - 5 /hpf (0-6) 11/01/16 03:00 Ur Epithelial Cells 0 - 2 /hpf (0-5) 11/01/16 03:00 Urine Bacteria Rare (NEG) 11/01/16 03:00 Digoxin 1.3 ng/mL (0.8-2.0) 10/31/16 15:05 - Constitutional Appears: Well, No Acute Distress - Head Exam Head Exam: ATRAUMATIC, NORMAL INSPECTION, NORMOCEPHALIC - Eye Exam Eye Exam: Normal appearance - ENT Exam ENT Exam: Normal External Ear Exam - Neck Exam Neck Exam: Normal Inspection - Respiratory Exam Respiratory Exam: NORMAL BREATHING PATTERN - Cardiovascular Exam Cardiovascular Exam: absent: JVD - GI/Abdominal Exam GI & Abdominal Exam: absent: Distended - Rectal Exam Rectal Exam: Deferred - Exam Additional comments: Deferred. - Extremities Exam Extremities Exam: Normal Inspection - Back Exam Back Exam: NORMAL INSPECTION - Neurological Exam Neurological Exam: Alert, Oriented x3 - Psychiatric Exam Psychiatric exam: Normal Affect, Normal Mood - Skin Skin Exam: Normal Color Assessment and Plan - Assessment and Plan (Free Text) Assessment: Left leg pain. Anemia. Coagulopathy. Renal insufficiency. Dehydration. Right renal mass, S/P nephrectomy. Ex tobacco user. Plan: Percocet I PO now. Continue present management.
[2016-11-01] MEDS: Sodium Chloride 0.45% 1,000 ML IV SCH (07:07)
[2016-11-01 07:21] LABS: BILIRUBIN,TOTAL 0.3 mg/dL (0.2-1.3); CALCIUM 8.3 mg/dL (8.4-10.5); POTASSIUM 4.6 mmol/L (3.6-5.0); TOTAL PROTEIN 6.3 g/dL (5.8-8.3)
[2016-11-01] MEDS: Digoxin 125 mcg (0.125 mg) Tab PO SCH (14:32)
--- NOTE | 2016-11-01 18:41 | CP.PCM.PN ---
Subjective - Date & Time of Evaluation Date of Evaluation: 11/01/16 Time of Evaluation: 17:30 - Subjective Subjective: Internal Medicine/Infectious Disease H&P: November 01, 2016 80 yo AA female presenting with diarrhea and abdominal pain/cramping. No other complaints. When laboratories performed, the patient was found to have abnormal electrolytes and significant dehydration. Elevated Amylase and Lipase. Decreased renal function. Amylase and Lipase improving. Renal function showing improvement towards her normal. No new complaints. Objective - Vital Signs/Intake and Output Vital Signs (last 24 hours): Temp Pulse Resp BP Pulse Ox 97.7 F 63 18 110/62 98 11/01/16 17:22 11/01/16 17:22 11/01/16 17:22 11/01/16 17:22 11/01/16 17:22 Intake and Output: 11/01/16 11/01/16 06:59 18:59 Intake Total 1800 580 Balance 1800 580 - Medications Medications: Current Medications Acetaminophen (Tylenol 325mg Tab) 650 mg PO Q4H PRN PRN Reason: Pain, Mild (1-3) Last Admin: 11/01/16 02:53 Dose: 650 mg Alprazolam (Xanax) 0.5 mg PO HS PRN; Protocol PRN Reason: Anxiety Last Admin: 10/31/16 22:34 Dose: 0.5 mg Amlodipine Besylate (Norvasc) 5 mg PO DAILY [facility] Last Admin: 11/01/16 10:14 Dose: 5 mg Atorvastatin Calcium (Lipitor) 20 mg PO DIN [facility] Last Admin: 11/01/16 17:34 Dose: 20 mg Digoxin (Lanoxin) 0.125 mg PO 1400 [facility] Last Admin: 11/01/16 14:32 Dose: 0.125 mg Diltiazem HCl (Cardizem) 60 mg PO Q8 [facility] Last Admin: 11/01/16 14:31 Dose: 60 mg Donepezil HCl (Aricept) 10 mg PO HS [facility] Last Admin: 10/31/16 21:44 Dose: 10 mg Sodium Chloride (Sodium Chloride 0.45%) 1,000 mls @ 75 mls/hr IV .[id number] [facility] Last Admin: 11/01/16 07:07 Dose: 75 mls/hr Losartan Potassium (Cozaar) 100 mg PO DAILY [facility] Last Admin: 11/01/16 10:14 Dose: 100 mg Ondansetron HCl (Zofran Inj) 4 mg IVP Q6H PRN PRN Reason: Nausea/Vomiting Oxycodone/Acetaminophen (Percocet 5/325 Mg Tab) 1 tab PO Q12H PRN PRN Reason: Pain, severe (8-10) Stop: 11/04/16 11:23 Pantoprazole Sodium (Protonix Ec Tab) 40 mg PO 0600 [facility] Last Admin: 11/01/16 06:00 Dose: 40 mg - Labs Labs: 11/01/16 06:00 11/01/16 06:55 PT 42.8 Seconds (9.9-11.8) H* 10/31/16 15:05 INR 3.96 (0.93-1.08) H* 10/31/16 15:05 APTT 40.8 Seconds (23.7-30.8) H 10/31/16 15:05 - Constitutional Appears: Non-toxic, No Acute Distress, Chronically Ill - Head Exam Head Exam: ATRAUMATIC, NORMOCEPHALIC - Eye Exam Eye Exam: EOMI, PERRL Pupil Exam: NORMAL ACCOMODATION, PERRL - ENT Exam ENT Exam: Mucous Membranes Moist, Normal External Ear Exam, TM's Normal Bilaterally - Neck Exam Neck Exam: Full ROM, Normal Inspection - Respiratory Exam Respiratory Exam: Clear to Ausculation Bilateral, NORMAL BREATHING PATTERN. absent: Rales, Rhonchi, Wheezes - Cardiovascular Exam Cardiovascular Exam: REGULAR RHYTHM, RRR, +S1, +S2 - GI/Abdominal Exam GI & Abdominal Exam: Soft, Normal Bowel Sounds. absent: Distended, Tenderness - Extremities Exam Extremities Exam: Full ROM, Normal Inspection - Neurological Exam Neurological Exam: Alert, Awake, CN II-XII Intact, Oriented x3 - Psychiatric Exam Psychiatric exam: Normal Affect, Normal Mood - Skin Skin Exam: Intact, Normal Color Assessment and Plan - Assessment and Plan (Free Text) Assessment: 80 with diarrhea and abdominal cramping. Found to be dehydrated. Multiple electrolyte abnormalities and elevated amylase and lipase levels. Supportive care. Awaiting GI evaluation. CT of the abdomen showed no particular abnormalities. Recheck labs in the morning. Discharge planning. Continue IV fluids. Monitor oral intake. Electrolytes improving. Thank you for allowing me to participate in the care of the patient, we will follow with you.
[2016-11-01] MEDS: Oxycodone/Acetaminophen 5/325 mg Tab PO PRN (20:37)
[2016-11-02] MEDS: Sodium Chloride 0.45% 1,000 ML IV SCH ×3 (02:08→23:00)
[2016-11-02 02:57] VITALS: RESP 20
[2016-11-02] MEDS: Pantoprazole 40 mg EC Tab PO SCH (05:56)
[2016-11-02 07:18] LABS: HEMATOCRIT 29.4 % (36.0-48.0); MEAN CELL VOLUME 85.5 fl (80.0-105.0); MEAN CORPUSCULAR HEMOGLOBIN 26.7 pg (25.0-35.0); MEAN CORPUSCULAR HGB CONC 31.3 g/dl (31.0-37.0); PLATELET COUNT 220 10^3/uL (120.0-450.0); RED CELL DISTRIBUTION WIDTH 22.3 % (11.5-14.5); WHITE BLOOD COUNT 8.1 10^3/ul (4.5-11.0)
[2016-11-02 07:26] LABS: INR 2.43 (0.93-1.08); PARTIAL THROMBOPLASTIN TIME 36.1 Seconds (23.7-30.8)
[2016-11-02 07:32] LABS: BILIRUBIN,TOTAL 0.3 mg/dL (0.2-1.3); CALCIUM 8.4 mg/dL (8.4-10.5); POTASSIUM 4.6 mmol/L (3.6-5.0); TOTAL PROTEIN 6.7 g/dL (5.8-8.3)
--- NOTE | 2016-11-02 09:12 | US ---
HISTORY: PANCREATITIS COMPARISON: CT abdomen and pelvis from 10/31/2016 TECHNIQUE: Grayscale imaging was performed. FINDINGS: LIVER: Measures 12.9 cm. Normal echogenicity of the liver parenchyma. No mass. No intrahepatic bile duct dilatation. GALLBLADDER: There are multiple gallstones. No gallbladder wall thickening, pericholecystic fluid or positive sonographic Benson's sign. COMMON BILE DUCT: Measures 6.4 mm. There is mild diffuse dilatation of the common bile duct however in keeping with patient's age. PANCREAS: Pancreas is normal in size and echotexture without evidence of ductal dilatation or pseudocyst. RIGHT KIDNEY: Surgically absent. LEFT KIDNEY: Measures 10.6cm. Normal echogenicity. No calculus, mass, or hydronephrosis. There is a 2.7 x 1.9 x 2.5 cm cyst in the upper pole, a 1.2 x 1.0 x 1.1 cm cyst in the upper pole and a 1.2 x 0.8 x 1.1 cm cyst in the interpolar region. SPLEEN: Normal in size and contour. No mass. AORTA: No aneurysmal dilatation. IVC: Unremarkable. OTHER FINDINGS: None. IMPRESSION: 1. Cholelithiasis. 2. Status post right nephrectomy. 3. Three simple cysts in the left kidney, the largest in the upper pole measures 2.7 cm. No nephrolithiasis or hydronephrosis.
--- NOTE | 2016-11-02 09:59 | PQF RENAL ---
This form is a permanent part of the medical record Dr. Crum, Your H&P notes patient has hx renal cell cancer, s/p nephrectomy with CKD. BUN/ creatinine on admission elevated due to dehydration. Could you be more specific about stage of CKD? Clarification of your documentation is requested to better reflect the severity of illness and intensity of treatment of your patient. Indicators present [] Oliguria/anuria [] Edema/weight gain [] Hyponatremia [] Confusion/mental status changes [] Increased Blood Urea Nitrogen/Creatinine [] Increased Potassium/Decreased potassium [] Anemia (male <13.5, female <12.0) [] Proteinuria [] Metabolic Acidosis OR Alkalosis [] Hypotension/shock [] Decreased GFR [] Other: [] Location in the medical record that reflects the above clinical findings: PHYSICIAN'S RESPONSE Based on your medical judgment of the clinical indicators outlined above, are you treating this patient for a known or suspected: [] Acute Renal Failure [] Acute Kidney Injury [] Azotemia/prerenal azotemia [] Chronic kidney disease Stage I [] Stage II [] Stage III [X] Stage IV [] [] Other condition/diagnosis:[] [] If Unable to Determine, please check the box, sign and date. Present On Admission (POA) Indicator: [] Present at the time of admission [] Not present at the time of admission [] Clinically Undetermined In responding to this query, please exercise your independent professional judgment. The fact that a question is asked does not imply that any particular answer is desired or expected. Thank you for your clarification on this documentation. If you have any questions please call:[ ] * Thank you, [ ]Kelsey Hassan [facility] #[id number] rigging up worker Chronic Kidney Disease Stages *[employer]* Stage I GFR >90 Stage II GFR 60-89 Stage III GFR 30-59 Stage IV GFR 15-29 Stage V~~~~~~~~~~ GFR <15~~~~~~~~~~~~~ MTDD
--- NOTE | 2016-11-02 13:21 | CP.PCM.PN ---
<Elyse Moran - Last Filed: 11/02/16 13:22> Subjective - Date & Time of Evaluation Date of Evaluation: 11/02/16 Time of Evaluation: 09:15 - Subjective Subjective: S&E at bedside, patient complain of diarrhea. No reports of overt GI bleed.Denies abdominal pain, last BM was last night. Tolerating oral intake. Abdominal ultrasound report reviewed: showed gallbladder stone, simple renal cysts, CBD measures 6.4 mm, slight dilation and consistent with patient's age. Objective - Vital Signs/Intake and Output Vital Signs (last 24 hours): Temp Pulse Resp BP Pulse Ox 97.9 F 62 20 130/65 95 11/02/16 08:44 11/02/16 10:00 11/02/16 08:44 11/02/16 10:00 11/02/16 08:44 Intake and Output: 11/02/16 11/02/16 06:59 18:59 Intake Total 1800 Balance 1800 - Medications Medications: Current Medications Acetaminophen (Tylenol 325mg Tab) 650 mg PO Q4H PRN PRN Reason: Pain, Mild (1-3) Last Admin: 11/01/16 02:53 Dose: 650 mg Alprazolam (Xanax) 0.5 mg PO HS PRN; Protocol PRN Reason: Anxiety Last Admin: 11/02/16 02:12 Dose: 0.5 mg Amlodipine Besylate (Norvasc) 5 mg PO DAILY [facility] Last Admin: 11/02/16 10:00 Dose: 5 mg Atorvastatin Calcium (Lipitor) 20 mg PO DIN [facility] Last Admin: 11/01/16 17:34 Dose: 20 mg Digoxin (Lanoxin) 0.125 mg PO 1400 [facility] Last Admin: 11/01/16 14:32 Dose: 0.125 mg Diltiazem HCl (Cardizem) 60 mg PO Q8 [facility] Last Admin: 11/02/16 05:55 Dose: 60 mg Donepezil HCl (Aricept) 10 mg PO HS [facility] Last Admin: 11/01/16 21:03 Dose: 10 mg Sodium Chloride (Sodium Chloride 0.45%) 1,000 mls @ 75 mls/hr IV .[id number] [facility] Last Admin: 11/02/16 02:08 Dose: 75 mls/hr Losartan Potassium (Cozaar) 100 mg PO DAILY [facility] Last Admin: 11/02/16 10:04 Dose: 100 mg Ondansetron HCl (Zofran Inj) 4 mg IVP Q6H PRN PRN Reason: Nausea/Vomiting Oxycodone/Acetaminophen (Percocet 5/325 Mg Tab) 1 tab PO Q12H PRN PRN Reason: Pain, severe (8-10) Stop: 11/04/16 11:23 Last Admin: 11/01/16 20:37 Dose: 1 tab Pantoprazole Sodium (Protonix Ec Tab) 40 mg PO 0600 [facility] Last Admin: 11/02/16 05:56 Dose: 40 mg - Labs Labs: 11/02/16 05:50 11/02/16 05:50 PT 26.2 Seconds (9.9-11.8) H 11/02/16 05:50 INR 2.43 (0.93-1.08) H 11/02/16 05:50 APTT 36.1 Seconds (23.7-30.8) H 11/02/16 05:50 - Constitutional Appears: No Acute Distress - Head Exam Head Exam: NORMOCEPHALIC - Eye Exam Eye Exam: Normal appearance. absent: Scleral icterus - ENT Exam ENT Exam: Mucous Membranes Moist - Neck Exam Neck Exam: Normal Inspection - Respiratory Exam Respiratory Exam: Decreased Breath Sounds, NORMAL BREATHING PATTERN. absent: Rales, Wheezes, Respiratory Distress - Cardiovascular Exam Cardiovascular Exam: +S1, +S2 - GI/Abdominal Exam GI & Abdominal Exam: Soft, Normal Bowel Sounds. absent: Distended, Guarding, Tenderness, Rebound - Extremities Exam Extremities Exam: Normal Capillary Refill. absent: Calf Tenderness - Neurological Exam Neurological Exam: Alert, Awake, Oriented x3 - Skin Skin Exam: Dry, Warm Assessment and Plan - Assessment and Plan (Free Text) Assessment: Assessment: Dehydration Pancreatitis, elevated amylase lipase, patient no abdominal pain. History of gastric ulcer Coagulopathy, currently off Coumadin History of renal cancer/mass History of hypertension History of atrial fibrillation Plan: Pending stool for C. difficile Continue IV fluids Continue regular diet as tolerated Continue PPI Consider endoscopy if INR is optimal, recheck PT/INR in a.m. NPO 12 midnight for possible egd Seen and discussed with Dr. Gaytan <Ryan Gaytan V - Last Filed: 11/02/16 22:57> Objective - Vital Signs/Intake and Output Vital Signs (last 24 hours): Temp Pulse Resp BP Pulse Ox 97.3 F L 61 20 152/67 H 98 11/02/16 16:00 11/02/16 21:19 11/02/16 16:00 11/02/16 21:19 11/02/16 16:00 Intake and Output: 11/02/16 11/03/16 18:59 06:59 Intake Total 420 Balance 420 - Medications Medications: Current Medications Acetaminophen (Tylenol 325mg Tab) 650 mg PO Q4H PRN PRN Reason: Pain, Mild (1-3) Last Admin: 11/02/16 21:27 Dose: 650 mg Alprazolam (Xanax) 0.5 mg PO HS PRN; Protocol PRN Reason: Anxiety Last Admin: 11/02/16 21:28 Dose: 0.5 mg Amlodipine Besylate (Norvasc) 5 mg PO DAILY [facility] Last Admin: 11/02/16 10:00 Dose: 5 mg Atorvastatin Calcium (Lipitor) 20 mg PO DIN [facility] Last Admin: 11/02/16 17:19 Dose: 20 mg Digoxin (Lanoxin) 0.125 mg PO 1400 [facility] Last Admin: 11/02/16 15:27 Dose: 0.125 mg Diltiazem HCl (Cardizem) 60 mg PO Q8 [facility] Last Admin: 11/02/16 21:19 Dose: 60 mg Donepezil HCl (Aricept) 10 mg PO HS [facility] Last Admin: 11/02/16 21:25 Dose: 10 mg Sodium Chloride (Sodium Chloride 0.45%) 1,000 mls @ 75 mls/hr IV .[id number] [facility] Last Admin: 11/02/16 17:22 Dose: 75 mls/hr Losartan Potassium (Cozaar) 100 mg PO DAILY [facility] Last Admin: 11/02/16 10:04 Dose: 100 mg Ondansetron HCl (Zofran Inj) 4 mg IVP Q6H PRN PRN Reason: Nausea/Vomiting Oxycodone/Acetaminophen (Percocet 5/325 Mg Tab) 1 tab PO Q12H PRN PRN Reason: Pain, severe (8-10) Stop: 11/04/16 11:23 Last Admin: 11/02/16 15:32 Dose: 1 tab Pantoprazole Sodium (Protonix Ec Tab) 40 mg PO 0600 [facility] Last Admin: 11/02/16 05:56 Dose: 40 mg - Labs Labs: 11/02/16 05:50 11/02/16 05:50 PT 26.2 Seconds (9.9-11.8) H 11/02/16 05:50 INR 2.43 (0.93-1.08) H 11/02/16 05:50 APTT 36.1 Seconds (23.7-30.8) H 11/02/16 05:50 Attending/Attestation - Attestation Notes (Text): 11/02/16 22:57 p
[2016-11-02] MEDS: Digoxin 125 mcg (0.125 mg) Tab PO SCH (15:27)
[2016-11-02] MEDS: Oxycodone/Acetaminophen 5/325 mg Tab PO PRN (15:32)
--- NOTE | 2016-11-02 23:50 | CP.PCM.PN ---
Subjective - Date & Time of Evaluation Date of Evaluation: 11/02/16 Time of Evaluation: 23:00 - Subjective Subjective: Internal Medicine/Infectious Disease Follow Up: November 02, 2016 80 yo AA female presenting with diarrhea and abdominal pain/cramping. No other complaints. When laboratories performed, the patient was found to have abnormal electrolytes and significant dehydration. Elevated Amylase and Lipase. Decreased renal function. Amylase and Lipase improving. Renal function showing improvement towards her normal. No new complaints. Abdominal Ultrasound showing cholelithiasis. Supportive care. Potential EGD in AM. Objective - Vital Signs/Intake and Output Vital Signs (last 24 hours): Temp Pulse Resp BP Pulse Ox 97.3 F L 61 20 152/67 H 98 11/02/16 16:00 11/02/16 21:19 11/02/16 16:00 11/02/16 21:19 11/02/16 16:00 Intake and Output: 11/02/16 11/03/16 18:59 06:59 Intake Total 420 Balance 420 - Medications Medications: Current Medications Acetaminophen (Tylenol 325mg Tab) 650 mg PO Q4H PRN PRN Reason: Pain, Mild (1-3) Last Admin: 11/02/16 21:27 Dose: 650 mg Alprazolam (Xanax) 0.5 mg PO HS PRN; Protocol PRN Reason: Anxiety Last Admin: 11/02/16 21:28 Dose: 0.5 mg Amlodipine Besylate (Norvasc) 5 mg PO DAILY [facility] Last Admin: 11/02/16 10:00 Dose: 5 mg Atorvastatin Calcium (Lipitor) 20 mg PO DIN [facility] Last Admin: 11/02/16 17:19 Dose: 20 mg Digoxin (Lanoxin) 0.125 mg PO 1400 [facility] Last Admin: 11/02/16 15:27 Dose: 0.125 mg Diltiazem HCl (Cardizem) 60 mg PO Q8 [facility] Last Admin: 11/02/16 21:19 Dose: 60 mg Donepezil HCl (Aricept) 10 mg PO HS [facility] Last Admin: 11/02/16 21:25 Dose: 10 mg Sodium Chloride (Sodium Chloride 0.45%) 1,000 mls @ 75 mls/hr IV .[id number] [facility] Last Admin: 11/02/16 17:22 Dose: 75 mls/hr Losartan Potassium (Cozaar) 100 mg PO DAILY [facility] Last Admin: 11/02/16 10:04 Dose: 100 mg Ondansetron HCl (Zofran Inj) 4 mg IVP Q6H PRN PRN Reason: Nausea/Vomiting Oxycodone/Acetaminophen (Percocet 5/325 Mg Tab) 1 tab PO Q12H PRN PRN Reason: Pain, severe (8-10) Stop: 11/04/16 11:23 Last Admin: 11/02/16 15:32 Dose: 1 tab Pantoprazole Sodium (Protonix Ec Tab) 40 mg PO 0600 [facility] Last Admin: 11/02/16 05:56 Dose: 40 mg - Labs Labs: 11/02/16 05:50 11/02/16 05:50 PT 26.2 Seconds (9.9-11.8) H 11/02/16 05:50 INR 2.43 (0.93-1.08) H 11/02/16 05:50 APTT 36.1 Seconds (23.7-30.8) H 11/02/16 05:50 - Constitutional Appears: Non-toxic, No Acute Distress, Chronically Ill - Head Exam Head Exam: ATRAUMATIC, NORMOCEPHALIC - Eye Exam Eye Exam: EOMI, PERRL Pupil Exam: NORMAL ACCOMODATION, PERRL - ENT Exam ENT Exam: Mucous Membranes Moist, Normal External Ear Exam, TM's Normal Bilaterally - Neck Exam Neck Exam: Full ROM, Normal Inspection - Respiratory Exam Respiratory Exam: Clear to Ausculation Bilateral, NORMAL BREATHING PATTERN. absent: Rales, Rhonchi, Wheezes - Cardiovascular Exam Cardiovascular Exam: REGULAR RHYTHM, RRR, +S1, +S2 - GI/Abdominal Exam GI & Abdominal Exam: Soft, Normal Bowel Sounds. absent: Distended, Tenderness - Extremities Exam Extremities Exam: Full ROM, Normal Inspection - Neurological Exam Neurological Exam: Alert, Awake, CN II-XII Intact, Oriented x3 - Psychiatric Exam Psychiatric exam: Normal Affect, Normal Mood - Skin Skin Exam: Intact, Normal Color Assessment and Plan - Assessment and Plan (Free Text) Assessment: 80 with diarrhea and abdominal cramping. Found to be dehydrated. Multiple electrolyte abnormalities and elevated amylase and lipase levels. Supportive care. Awaiting GI evaluation. CT of the abdomen showed no particular abnormalities. Recheck labs in the morning. Discharge planning. Continue IV fluids. Monitor oral intake. Electrolytes improving. Amylase and Lipase levels very slowly improving. Abdominal ultrasound showing cholelithiasis. Possible EGD in AM. Supportive care. Thank you for allowing me to participate in the care of the patient, we will follow with you.
[2016-11-03] MEDS ORDERED: DiphenhydrAMINE 12.5 mg/5 ml LIQ UD (5 ml) PO STA (01:11)
--- NOTE | 2016-11-03 01:11 | CP.PCM.PN ---
Subjective - Date & Time of Evaluation Date of Evaluation: 11/03/16 Time of Evaluation: 01:10 - Subjective Subjective: S:Nurse calls and tells that patient is upset ,crying , wants something to sleep, received xanax earlier, not helping. Seen at bedside. Has no other complaints. States that she might be anxzious. Denies that she has pain anywhere. Medical record was reviewed. O: Last Vital Signs 3 Temp 97.3 F L 11/02/16 16:00 Pulse 61 11/02/16 21:19 Resp 20 11/02/16 16:00 BP 152/67 H 11/02/16 21:19 Pulse Ox 98 11/02/16 16:00 Awake, alert. Not in distress. LUNGS:Normal breathing pattern. NEURO: Speech normal. A:Adjustment insomnia. P:Benadryl 25 mg PO STAT. Objective - Vital Signs/Intake and Output Vital Signs (last 24 hours): Temp Pulse Resp BP Pulse Ox 97.3 F L 61 20 152/67 H 98 11/02/16 16:00 11/02/16 21:19 11/02/16 16:00 11/02/16 21:19 11/02/16 16:00 Intake and Output: 11/02/16 11/03/16 18:59 06:59 Intake Total 420 Balance 420 - Medications Medications: Current Medications Acetaminophen (Tylenol 325mg Tab) 650 mg PO Q4H PRN PRN Reason: Pain, Mild (1-3) Last Admin: 11/02/16 21:27 Dose: 650 mg Alprazolam (Xanax) 0.5 mg PO HS PRN; Protocol PRN Reason: Anxiety Last Admin: 11/02/16 21:28 Dose: 0.5 mg Amlodipine Besylate (Norvasc) 5 mg PO DAILY [facility] Last Admin: 11/02/16 10:00 Dose: 5 mg Atorvastatin Calcium (Lipitor) 20 mg PO DIN [facility] Last Admin: 11/02/16 17:19 Dose: 20 mg Digoxin (Lanoxin) 0.125 mg PO 1400 [facility] Last Admin: 11/02/16 15:27 Dose: 0.125 mg Diltiazem HCl (Cardizem) 60 mg PO Q8 [facility] Last Admin: 11/02/16 21:19 Dose: 60 mg Donepezil HCl (Aricept) 10 mg PO HS [facility] Last Admin: 11/02/16 21:25 Dose: 10 mg Sodium Chloride (Sodium Chloride 0.45%) 1,000 mls @ 75 mls/hr IV .[id number] [facility] Last Admin: 11/02/16 17:22 Dose: 75 mls/hr Losartan Potassium (Cozaar) 100 mg PO DAILY [facility] Last Admin: 11/02/16 10:04 Dose: 100 mg Ondansetron HCl (Zofran Inj) 4 mg IVP Q6H PRN PRN Reason: Nausea/Vomiting Oxycodone/Acetaminophen (Percocet 5/325 Mg Tab) 1 tab PO Q12H PRN PRN Reason: Pain, severe (8-10) Stop: 11/04/16 11:23 Last Admin: 11/02/16 15:32 Dose: 1 tab Pantoprazole Sodium (Protonix Ec Tab) 40 mg PO 0600 [facility] Last Admin: 11/02/16 05:56 Dose: 40 mg - Labs Labs: 11/02/16 05:50 11/02/16 05:50 PT 26.2 Seconds (9.9-11.8) H 11/02/16 05:50 INR 2.43 (0.93-1.08) H 11/02/16 05:50 APTT 36.1 Seconds (23.7-30.8) H 11/02/16 05:50
[2016-11-03] MEDS: Pantoprazole 40 mg EC Tab PO SCH (06:06)
[2016-11-03] MEDS: Oxycodone/Acetaminophen 5/325 mg Tab PO PRN (06:06)
[2016-11-03 07:06] LABS: INR 2.1 (0.93-1.08)
[2016-11-03 07:07] LABS: BILIRUBIN,TOTAL 0.7 mg/dL (0.2-1.3); POTASSIUM 5.1 mmol/L (3.6-5.0); TOTAL PROTEIN 7.4 g/dL (5.8-8.3)
--- NOTE | 2016-11-03 11:48 | CP.PCM.PN ---
Subjective - Date & Time of Evaluation Date of Evaluation: 11/03/16 Time of Evaluation: 09:55 - Subjective Subjective: Seen and examined at the bedside this morning, chart reviewed. The patient denies nausea, vomiting, or abdominal pain. She is tolerating oral intake, denies any episode of diarrhea. She had soft BM, no reports of overt GI bleed or acute overnight events. EGD cancelled, INR elevated. Objective - Vital Signs/Intake and Output Vital Signs (last 24 hours): Temp Pulse Resp BP Pulse Ox 98.7 F 80 20 140/53 L 96 11/03/16 08:31 11/03/16 08:31 11/03/16 08:31 11/03/16 08:31 11/03/16 08:31 Intake and Output: 11/03/16 11/03/16 06:59 18:59 Intake Total 480 Balance 480 - Medications Medications: Current Medications Acetaminophen (Tylenol 325mg Tab) 650 mg PO Q4H PRN PRN Reason: Pain, Mild (1-3) Last Admin: 11/02/16 21:27 Dose: 650 mg Alprazolam (Xanax) 0.5 mg PO HS PRN; Protocol PRN Reason: Anxiety Last Admin: 11/02/16 21:28 Dose: 0.5 mg Amlodipine Besylate (Norvasc) 5 mg PO DAILY [facility] Last Admin: 11/03/16 10:31 Dose: 5 mg Atorvastatin Calcium (Lipitor) 20 mg PO DIN [facility] Last Admin: 11/02/16 17:19 Dose: 20 mg Digoxin (Lanoxin) 0.125 mg PO 1400 [facility] Last Admin: 11/02/16 15:27 Dose: 0.125 mg Diltiazem HCl (Cardizem) 60 mg PO Q8 [facility] Last Admin: 11/03/16 06:54 Dose: Not Given Donepezil HCl (Aricept) 10 mg PO HS [facility] Last Admin: 11/02/16 21:25 Dose: 10 mg Sodium Chloride (Sodium Chloride 0.45%) 1,000 mls @ 75 mls/hr IV .[id number] [facility] Last Admin: 11/02/16 23:00 Dose: 75 mls/hr Losartan Potassium (Cozaar) 100 mg PO DAILY [facility] Last Admin: 11/03/16 10:31 Dose: 100 mg Ondansetron HCl (Zofran Inj) 4 mg IVP Q6H PRN PRN Reason: Nausea/Vomiting Oxycodone/Acetaminophen (Percocet 5/325 Mg Tab) 1 tab PO Q12H PRN PRN Reason: Pain, severe (8-10) Stop: 11/04/16 11:23 Last Admin: 11/03/16 06:06 Dose: 1 tab Pantoprazole Sodium (Protonix Ec Tab) 40 mg PO 0600 [facility] Last Admin: 11/03/16 06:06 Dose: 40 mg - Labs Labs: 11/02/16 05:50 11/03/16 06:40 PT 22.7 Seconds (9.9-11.8) H 11/03/16 06:40 INR 2.10 (0.93-1.08) H 11/03/16 06:40 APTT 36.1 Seconds (23.7-30.8) H 11/02/16 05:50 - Constitutional Appears: No Acute Distress - Head Exam Head Exam: NORMOCEPHALIC - Eye Exam Eye Exam: Normal appearance. absent: Scleral icterus - ENT Exam ENT Exam: Mucous Membranes Moist - Neck Exam Neck Exam: Normal Inspection - Respiratory Exam Respiratory Exam: NORMAL BREATHING PATTERN. absent: Respiratory Distress - Cardiovascular Exam Cardiovascular Exam: +S1, +S2 - GI/Abdominal Exam GI & Abdominal Exam: Soft, Normal Bowel Sounds. absent: Guarding, Tenderness, Rebound - Extremities Exam Extremities Exam: Normal Capillary Refill. absent: Calf Tenderness, Pedal Edema - Neurological Exam Neurological Exam: Alert, Awake, Oriented x3 - Skin Skin Exam: Dry, Warm Assessment and Plan - Assessment and Plan (Free Text) Assessment: Assessment: s/p Dehydration Pancreatitis, elevated amylase lipase, patient no abdominal pain. History of gastric ulcer Coagulopathy, currently off Coumadin History of renal cancer/mass History of hypertension History of atrial fibrillation Plan: Pending stool for C. difficile Continue IV fluids Continue regular diet as tolerated Continue PPI elective outpatient EGD FU gastric ulcer Seen and discussed with Dr. Gaytan
[2016-11-03] MEDS: Digoxin 125 mcg (0.125 mg) Tab PO SCH (13:58)
[2016-11-03 14:02] VITALS: PULSE 64
--- NOTE | 2016-11-03 18:19 | CP.PCM.DIS ---
Provider - Provider Date of Admission: 10/31/16 02:05 Attending physician: Amador Crum MD Primary care physician: Amador Crum MD Consults: Ryan Gaytan MD Time Spent in preparation of Discharge (in minutes): 45 Hospital Course - Lab Results Lab Results: Most Recent Lab Values WBC 8.1 10^3/ul (4.5-11.0) D 11/02/16 05:50 RBC 3.44 10^6/uL (3.5-6.1) L 11/02/16 05:50 Hgb 9.2 g/dL (12.0-16.0) L 11/02/16 05:50 Hct 29.4 % (36.0-48.0) L 11/02/16 05:50 MCV 85.5 fl (80.0-105.0) 11/02/16 05:50 MCH 26.7 pg (25.0-35.0) 11/02/16 05:50 MCHC 31.3 g/dl (31.0-37.0) 11/02/16 05:50 RDW 22.3 % (11.5-14.5) H 11/02/16 05:50 Plt Count 220 10^3/uL (120.0-450.0) 11/02/16 05:50 MPV 10.0 fl (7.0-11.0) 10/31/16 15:05 Gran % 57.2 % (50.0-68.0) 10/31/16 00:30 Lymph % (Auto) 32.6 % (22.0-35.0) 10/31/16 00:30 [place] % (Auto) 8.3 % (1.0-6.0) H 10/31/16 00:30 Eos % (Auto) 1.6 % (1.5-5.0) 10/31/16 00:30 Baso % (Auto) 0.3 % (0.0-3.0) 10/31/16 00:30 Gran # 3.52 (1.4-6.5) 10/31/16 00:30 Lymph # 2.0 (1.2-3.4) 10/31/16 00:30 [place] # 0.5 (0.1-0.6) 10/31/16 00:30 Eos # 0.1 (0.0-0.7) 10/31/16 00:30 Baso # 0.02 K/mm3 (0.0-2.0) 10/31/16 00:30 PT 22.7 Seconds (9.9-11.8) H 11/03/16 06:40 INR 2.10 (0.93-1.08) H 11/03/16 06:40 APTT 36.1 Seconds (23.7-30.8) H 11/02/16 05:50 Sodium 145 mmol/L (132-148) 11/03/16 06:40 Potassium 5.1 mmol/L (3.6-5.0) H 11/03/16 06:40 Chloride 114 mmol/L (98-107) H 11/03/16 06:40 Carbon Dioxide 20 mmol/L (21-33) L 11/03/16 06:40 Anion Gap 16 (10-20) 11/03/16 06:40 BUN 24 mg/dL (7-21) H 11/03/16 06:40 Creatinine 1.3 mg/dL (0.5-1.4) 11/03/16 06:40 Est GFR ( Amer) 48 11/03/16 06:40 Est GFR (Non-Af Amer) 39 11/03/16 06:40 Random Glucose 113 mg/dL (70-110) H 11/03/16 06:40 Calcium 9.0 mg/dL (8.4-10.5) 11/03/16 06:40 Total Bilirubin 0.7 mg/dL (0.2-1.3) 11/03/16 06:40 AST 28 U/L (15-39) 11/03/16 06:40 ALT 26 U/L (7-56) 11/03/16 06:40 Alkaline Phosphatase 69 U/L (38-133) 11/03/16 06:40 Lactate Dehydrogenase 658 U/L (333-699) 10/31/16 00:30 Total Creatine Kinase 56 U/L (35-230) 10/31/16 00:30 Troponin I 0.04 ng/mL D 10/31/16 00:30 Total Protein 7.4 g/dL (5.8-8.3) 11/03/16 06:40 Albumin 3.7 g/dL (3.0-4.8) 11/03/16 06:40 Globulin 3.7 gm/dL 11/03/16 06:40 Albumin/Globulin Ratio 1.0 (1.1-1.8) L 11/03/16 06:40 Amylase 127 U/L (35-125) H 11/03/16 06:40 Lipase 144 U/L (23-300) 11/03/16 06:40 Urine Color Yellow (YELLOW) 11/01/16 03:00 Urine Appearance Sl cloudy (CLEAR) 11/01/16 03:00 Urine pH 6.0 (4.7-8.0) 11/01/16 03:00 Ur Specific [place] 1.020 (1.005-1.035) 11/01/16 03:00 Urine Protein 30 mg/dL (<30 mg/dL) H 11/01/16 03:00 Urine Glucose (UA) Negative mg/dL (NEGATIVE) 11/01/16 03:00 Urine Ketones Negative mg/dL (NEGATIVE) 11/01/16 03:00 Urine Blood Negative (NEGATIVE) 11/01/16 03:00 Urine Nitrate Negative (NEGATIVE) 11/01/16 03:00 Urine Bilirubin Negative (NEGATIVE) 11/01/16 03:00 Urine Urobilinogen 0.2 E.U./dL (<1 E.U./dL) 11/01/16 03:00 Ur Leukocyte Esterase Small Chidi/uL (NEGATIVE) H 11/01/16 03:00 Urine RBC 0 - 2 /hpf (0-2) 11/01/16 03:00 Urine WBC 2 - 5 /hpf (0-6) 11/01/16 03:00 Ur Epithelial Cells 0 - 2 /hpf (0-5) 11/01/16 03:00 Urine Bacteria Rare (NEG) 11/01/16 03:00 Digoxin 1.3 ng/mL (0.8-2.0) 10/31/16 15:05 - Hospital Course Hospital Course: Internal Medicine/Infectious Disease Follow Up and Discharge Summary: November 03, 2016 80 yo AA female presenting with diarrhea and abdominal pain/cramping. No other complaints. When laboratories performed, the patient was found to have abnormal electrolytes and significant dehydration. Elevated Amylase and Lipase. Decreased renal function. Amylase and Lipase improving. Renal function showing improvement towards her normal. No new complaints. Abdominal Ultrasound showing cholelithiasis. Supportive care. EGD could not be done due to elevated PT/INR. 80 with diarrhea and abdominal cramping. Found to be dehydrated. Multiple electrolyte abnormalities and elevated amylase and lipase levels. Supportive care. Awaiting GI evaluation. CT of the abdomen showed no particular abnormalities. Recheck labs in the morning. Discharge planning. Continue IV fluids. Monitor oral intake. Electrolytes improving. Amylase and Lipase levels very slowly improving. Abdominal ultrasound showing cholelithiasis. Supportive care. Follow Up in office in 1 week. Discharge Exam - Head Exam Head Exam: ATRAUMATIC, NORMOCEPHALIC - Eye Exam Eye Exam: EOMI, PERRL Pupil Exam: NORMAL ACCOMODATION, PERRL - ENT Exam ENT Exam: Mucous Membranes Moist, Normal External Ear Exam, TM's Normal Bilaterally - Neck Exam Neck exam: Full Rom, Normal Inspection - Respiratory Exam Respiratory Exam: Clear to PA & Lateral, Rales, NORMAL BREATHING PATTERN. absent: Rhonchi, Wheezes - Cardiovascular Exam Cardiovascular Exam: REGULAR RHYTHM, RRR, +S1, +S2 - GI/Abdominal Exam GI & Abdominal Exam: Normal Bowel Sounds, Soft. absent: Distended, Tenderness - Extremities Exam Extremities exam: full ROM, normal inspection - Neurological Exam Neurological exam: Alert, CN II-XII Intact, Oriented x3 - Psychiatric Exam Psychiatric exam: Normal Affect, Normal Mood - Skin Skin Exam: Intact, Normal Color Discharge Plan - Discharge Medications Prescriptions: Pantoprazole [Protonix EC Tab] 40 mg PO 0600 #30 ect - Follow Up Plan Condition: GOOD Disposition: HOME/ ROUTINE Instructions: Dehydration (DC), Heart Healthy Diet (DC), Acute Diarrhea (GEN) Additional Instructions: Folllow-up with Dr. Amador Crum within one week. Call office to make appointment . Come back to the ER if you experience sudden pain or fever. Referrals: Amador Crum MD [Family Provider] -
[2016-11-03 18:43] VITALS: BP 150/75; PULSE 89; TEMP 98.4; O2SAT 94
== END 2016-11-03 18:47 | disposition home health service (06) | DRG 640 ==
LOC: ED 23:25 → ERH 10-31 02:05 → 5RNO 10-31 02:58
PROVIDERS: ADMIT Internal Medicine Infectious Disease; ATTEND Internal Medicine Infectious Disease
DX: E86.0 Dehydration (principal); K85.90 Acute pancreatitis without necrosis or infection, unspecified; I48.91 Unspecified atrial fibrillation; I13.0 Hypertensive heart and chronic kidney disease with heart failure and stage 1 through stage 4 chronic kidney disease, or unspecified chronic kidney disease; N18.3 Chronic kidney disease, stage 3 (moderate); I50.9 Heart failure, unspecified; D64.9 Anemia, unspecified; F41.9 Anxiety disorder, unspecified; F51.02 Adjustment insomnia; K80.20 Calculus of gallbladder without cholecystitis without obstruction; M54.30 Sciatica, unspecified side; E78.00 Pure hypercholesterolemia, unspecified; R79.1 Abnormal coagulation profile; Z79.01 Long term (current) use of anticoagulants; Z85.528 Personal history of other malignant neoplasm of kidney; Z87.11 Personal history of peptic ulcer disease

== ENCOUNTER 2016-12-17 10:55 | Inpatient (IN) | payer MEDICARE ==
--- NOTE | 2016-12-17 11:28 | ED PDOC ---
Arrival/HPI - General Time Seen by Provider: 12/17/16 11:09 Historian: Patient - History of Present Illness Narrative History of Present Illness (Text): 12/17/16 11:16 A 81 year old female, whose past medical history includes atrial fibrillation ( takes Coumadin), renal mass s/p right nephrectomy, hypertension, PATRICIA on CKD, sciatica, hyperlipidemia, anemia, and CHF, presents to the emergency department complaining of generalized weakness and left hip pain. Patient reports she has been experiencing symptoms for a few days now. She describes as feeling "terrible and not right". Also, patient regularly experiences shortness of breath during early mornings or late evenings and has been for years. Patient denies of any chest pain, palpitations, cough, abdominal pain, appetite changes , rhinorrhea, sinus congestion, back pain, urinary output changes, or any other complaints. She also notes she has no allergies to any food or medications. PMD: Dr. Crum Time/Duration: > week (few days) Symptom Onset: Sudden Symptom Course: Unchanged Past Medical History - Provider Review Nursing Documentation Reviewed: Yes - Infectious Disease Hx of Infectious Diseases: None - Tetanus Immunization Tetanus Immunization: >10 years Ago - Cardiac Hx Cardiac Disorders: Yes Hx Hypertension: Yes - Pulmonary Hx Respiratory Disorders: Yes (SMOKES CIGARETTES) - Neurological HX Cerebrovascular Accident: Yes - HEENT Hx HEENT Disorder: No - Renal Hx Renal Disorder: Yes Hx Renal Cancer: Yes Other/Comment: Right nephrectomy - Endocrine/Metabolic Hx Endocrine Disorders: No - Hematological/Oncological Hx Blood Disorders: Yes Hx Cancer: Yes (RENAL CELL CA) - Integumentary Hx Dermatological Disorder: No - Musculoskeletal/Rheumatological Hx Arthritis: Yes - Gastrointestinal Hx Gastrointestinal Disorders: No - Genitourinary/Gynecological Hx Genitourinary Disorders: No Hx Reproductive Disorders: No - Psychiatric Hx Psychophysiologic Disorder: Yes Hx Anxiety: Yes Hx Substance Use: No - Surgical History Other/Comment: Right nephrectomy - Anesthesia Hx Anesthesia: Yes Hx Anesthesia Reactions: No Hx Malignant Hyperthermia: No Family/Social History - Physician Review Nursing Documentation Reviewed: Yes Family/Social History: No Known Family HX Smoking Status: Former Smoker Hx Alcohol Use: No Hx Substance Use: No Allergies/Home Meds Allergies/Adverse Reactions: Allergies No Known Allergies Allergy (Verified 10/30/16 23:32) Home Medications: Home Meds Medication Instructions Recorded Confirmed ALPRAZolam [Xanax] 0.5 mg PO BID PRN 10/31/16 12/17/16 Metoprolol Tartrate [Lopressor] 100 mg PO BID 10/31/16 12/17/16 Warfarin [Coumadin] 3 mg PO DAILY 10/31/16 12/17/16 Review of Systems - Physician Review All systems were reviewed & negative as marked: Yes - Review of Systems Constitutional: Other (generalized weakness) ENT: absent: Rhinorrhea, Sinus Congestion Respiratory: SOB (regularly during early mornings and late evenings). absent: Cough Cardiovascular: absent: Chest Pain Gastrointestinal: absent: Abdominal Pain, Appetite Changes Musculoskeletal: Other (left hip pain). absent: Back Pain Physical Exam Vital Signs Temp Pulse Resp BP Pulse Ox 12/17/16 11:31 98.7 F 64 18 161/87 H 100 Appearance: Positive for: Well-Appearing Pain Distress: None Mental Status: Positive for: Alert and Oriented X 3 - Systems Exam Head: Present: Atraumatic, Normocephalic Pupils: Present: PERRL Extroacular Muscles: Present: EOMI Conjunctiva: Present: Normal Mouth: Present: Moist Mucous Membranes Neck: Present: Normal Range of Motion Respiratory/Chest: Present: Clear to Auscultation, Good Air Exchange. No: Respiratory Distress, Accessory Muscle Use Cardiovascular: Present: Regular Rate and Rhythm, Normal S1, S2. No: Murmurs Abdomen: Present: Normal Bowel Sounds. No: Tenderness, Distention, Peritoneal Signs Back: Present: Normal Inspection Upper Extremity: Present: Normal Inspection. No: Cyanosis, Edema Lower Extremity: Present: Normal Inspection. No: Edema Neurological: Present: GCS=15, CN II-XII Intact, Speech Normal Skin: Present: Warm, Dry, Normal Color. No: Rashes Psychiatric: Present: Alert, Oriented x 3, Normal Insight, Normal Concentration Medical Decision Making ED Course and Treatment: 12/17/16 11:20 Impression: 81 year old female with generalized weakness and left hip pain. No acute findings on physical exam. Differential Diagnosis included but are not limited to: Electrolyte Abnormality vs. Dehydration vs. Chronic Arthritis pain Plan: -- EKG -- Chest X-ray -- Labs -- Urinalysis -- Reassess and disposition Prior Visits: Notes and results from previous visits were reviewed. Patient was last seen here in the emergency department on 10/31/2016 for diarrhea and abdominal pain. Patient was admitted. Progress Notes: EKG: Ordered, reviewed, and independently interpreted the EKG. Rate : 63 BPM Rhythm : Atrial flutter with 4:1 AV block Interpretation : Right Bundle Branch Block, left anterior fascicular block, left ventricular hypertrophy with repolarization abnormality Comparison : No change from previous EKG on 10/31/2016. 12/17/2016 12:49 Chest X-ray IMPRESSION: No active disease. Dictator: Kayden Pepe MD 12/17/16 14:53 Patient's labs reviewed. Troponin and BNP elevated. Creatinine elevated. Case discussed with Dr. Crum who agrees to place on telemetry observation. Case discussed with Dr. Fonseca, whom does not recommend any medications at this time. Patient is on Coumadin. \\ - Lab Interpretations Lab Results: 12/17/16 11:35 12/17/16 13:10 Lab Results 12/17/16 13:10: Sodium 144, Potassium 4.7, Chloride 111 H, Carbon Dioxide 20 L, Anion Gap 18, BUN 36 H, Creatinine 1.4 H, Est GFR ( Amer) 44, Est GFR ( Non-Af Amer) 36, Random Glucose 94, Calcium 9.3, Magnesium 1.9, Total Bilirubin 0.5, AST 29, ALT 35, Alkaline Phosphatase 76, Lactate Dehydrogenase 635, Total Creatine Kinase 58, Troponin I 0.34 H* D, NT-Pro-B Natriuret Pep 2090 H, Total Protein 7.8, Albumin 4.1, Globulin 3.7, Albumin/Globulin Ratio 1.1 12/17/16 11:35: PT 22.6 H, INR 2.09 H, APTT 31.1 H 12/17/16 11:35: WBC 5.4 D, RBC 3.94, Hgb 10.8 L, Hct 34.9 L, MCV 88.6 D, MCH 27.4, MCHC 30.9 L, RDW 18.4 H, Plt Count 217, MPV 10.6, Gran % 60.8, Lymph % ( Auto) 29.2, Yates % (Auto) 7.6 H, Eos % (Auto) 2.2, Baso % (Auto) 0.2, Gran # 3.30, Lymph # 1.6, Yates # 0.4, Eos # 0.1, Baso # 0.01 I have reviewed the lab results: Yes - RAD Interpretation Radiology Orders: 12/17/16 11:24 CHEST PORTABLE [RAD] Stat - Medication Orders Current Medication Orders: Discontinued Medications Tramadol HCl (Ultram) 50 mg PO STAT STA Stop: 12/17/16 11:48 Last Admin: 12/17/16 12:15 Dose: 50 mg MAR Pain Assessment Document 12/17/16 12:15 EQ (Rec: 12/17/16 14:09 EQ [id number]) Pain Reassessment Is this a pain reassessment? Yes - Scribe Statement The provider has reviewed the documentation as recorded by the Main [facility] Provider Scribe Attestation: All medical record entries made by the Scribe were at my direction and personally dictated by me. I have reviewed the chart and agree that the record accurately reflects my personal performance of the history, physical exam, medical decision making, and the department course for this patient. I have also personally directed, reviewed, and agree with the discharge instructions and disposition. Disposition/Present on Arrival - Present on Arrival Any Indicators Present on Arrival: No History of DVT/PE: No History of Uncontrolled Diabetes: No Urinary Catheter: No History Surgical Site Infection Following: None - Disposition Have Diagnosis and Disposition been Completed?: Yes Diagnosis: NSTEMI (non-ST elevated myocardial infarction), Hip pain Disposition: HOSPITALIZED Disposition Time: 17:12 Patient Plan: Admission Condition: FAIR
[2016-12-17 12:48] LABS: BASO # 0.01 K/mm3 (0.0-2.0); BASO % 0.2 % (0.0-3.0); EOS # 0.1 (0.0-0.7); EOS % 2.2 % (1.5-5.0); GRAN # 3.3 (1.4-6.5); GRAN % 60.8 % (50.0-68.0); HEMATOCRIT 34.9 % (36.0-48.0); LYMPH # 1.6 (1.2-3.4); LYMPH % 29.2 % (22.0-35.0); MEAN CELL VOLUME 88.6 fl (80.0-105.0); MEAN CORPUSCULAR HEMOGLOBIN 27.4 pg (25.0-35.0); MEAN CORPUSCULAR HGB CONC 30.9 g/dl (31.0-37.0); MEAN PLATELET VOLUME 10.6 fl (7.0-11.0); MONO # 0.4 (0.1-0.6); MONO % 7.6 % (1.0-6.0); RED CELL DISTRIBUTION WIDTH 18.4 % (11.5-14.5); WHITE BLOOD COUNT 5.4 10^3/ul (4.5-11.0)
--- NOTE | 2016-12-17 12:52 | RAD ---
HISTORY: sob COMPARISON: 09/03/2016 FINDINGS: LUNGS: No active pulmonary disease. PLEURA: No significant pleural effusion identified, no pneumothorax apparent. CARDIOVASCULAR: Moderate cardiomegaly OSSEOUS STRUCTURES: No significant abnormalities. VISUALIZED UPPER ABDOMEN: Normal. OTHER FINDINGS: None. IMPRESSION: No active disease.
[2016-12-17 12:53] LABS: INR 2.09 (0.93-1.08); PARTIAL THROMBOPLASTIN TIME 31.1 Seconds (23.7-30.8)
[2016-12-17 13:35] LABS: ALB/GLOB RATIO 1.1 (1.1-1.8); BILIRUBIN,TOTAL 0.5 mg/dL (0.2-1.3); CALCIUM 9.3 mg/dL (8.4-10.5); MAGNESIUM 1.9 mg/dL (1.7-2.2); POTASSIUM 4.7 mmol/L (3.6-5.0); TOTAL PROTEIN 7.8 g/dL (5.8-8.3)
[2016-12-17 14:06] LABS: TROPONIN I 0.34 ng/mL
[2016-12-17 17:27] LABS: URINE BILIRUBIN NEGATIVE (NEGATIVE); URINE BLOOD NEGATIVE (NEGATIVE); URINE GLUCOSE (UA) NEGATIVE (NEGATIVE); URINE KETONE NEGATIVE (NEGATIVE); URINE LEUKOCYTE ESTERASE NEGATIVE Leu/uL (NEGATIVE); URINE PROTEIN 30 mg/dL (<30 mg/dL); URINE UROBILINOGEN 0.2 E.U./dL (<1 E.U./dL)
[2016-12-17 17:30] LABS: URINE APPEARANCE SL CLOUDY (CLEAR); URINE COLOR YELLOW (YELLOW)
--- NOTE | 2016-12-17 17:37 | CARD ---
APPROVED REPORT EKG Measurement Heart [id number] P255 [id number] <Conclusion> Atrial flutter with 4:1 AV conduction Right bundle branch block Left anterior fascicular block Bifascicular block Left ventricular hypertrophy with repolarization abnormality Anteroseptal infarct, age undetermined Abnormal ECG
[2016-12-17 17:41] LABS: URINE EPITHELIAL CELLS 0 - 2 /hpf (0-5); URINE RBC 0 - 2 /hpf (0-2)
--- NOTE | 2016-12-17 18:31 | CP.PCM.HP ---
History of Present Illness - History of Present Illness History of Present Illness: Internal Medicine/Infectious Disease H&P: December 17, 2016 81 yo AA female presenting with generalized weakness, left hip pain, and fatigue. She can only say that she "feels terrible and not right". She states that the symptoms have been there for a few days. The patient's hip pain has been present for several weeks now and noted in her visits to my office. Found to have an elevated troponin in ER. PMHx: Hypertension, Anxiety, history of renal cancer/mass, sciatica, hypercholesterolemia, prior tobacco use history, atrial fibrillation. Last hospitalization showed ventricular fibrillation although it appears that occurred only once. Mass in right kidney that led to nephrectomy done by Dr. Hannon several years ago. PSHx: Nephrectomy, right side Allergies: NKDA Social Hx: No recent tobacco, EtOH, or illicit drug use. Recent loss of her brother ( occurred almost a year ago). Prior tobacco user. Active Medications Aspirin (Aspirin Chewable) 81 mg PO DAILY ISAI Metoprolol Tartrate (Lopressor) 50 mg PO BID ISAI Warfarin Sodium (Coumadin) 3 mg PO 1800 ISAI PRN Reason: Protocol Family Hx: CAD in multiple family members ROS: no fevers, chills, nausea, vomiting, diarrhea, headaches, dizziness, chest pain , abdominal pain, melena, hematuria, hematemesis, hematochezia, SOB, wheezing, vision loss, loss of consciousness, hearing loss. She has anxiety. Present on Admission - Present on Admission Any Indicators Present on Admission: No Past Patient History - Infectious Disease Hx of Infectious Diseases: None - Tetanus Immunizations Tetanus Immunization: >10 years Ago - Past Medical History & Family History Past Medical History?: Yes - Past Social History Smoking Status: Former Smoker - CARDIAC Hx Cardiac Disorders: Yes Hx Hypertension: Yes - PULMONARY Hx Respiratory Disorders: Yes (SMOKES CIGARETTES) - NEUROLOGICAL HX Cerebrovascular Accident: Yes - HEENT Hx HEENT Problems: No - RENAL Hx Chronic Kidney Disease: Yes Hx Renal (Kidney) Cancer: Yes Other/Comment: Right nephrectomy - ENDOCRINE/METABOLIC Hx Endocrine Disorders: No - HEMATOLOGICAL/ONCOLOGICAL Hx Blood Disorders: Yes Hx Cancer: Yes (RENAL CELL CA) - INTEGUMENTARY Hx Dermatological Problems: No - MUSCULOSKELETAL/RHEUMATOLOGICAL Hx Arthritis: Yes - GASTROINTESTINAL Hx Gastrointestinal Disorders: No - GENITOURINARY/GYNECOLOGICAL Hx Genitourinary Disorders: No Hx Reproductive Disorders: No - PSYCHIATRIC Hx Psychophysiologic Disorder: Yes Hx Anxiety: Yes Hx Substance Use: No - SURGICAL HISTORY Other/Comment: Right nephrectomy - ANESTHESIA Hx Anesthesia: Yes Hx Anesthesia Reactions: No Hx Malignant Hyperthermia: No Meds Allergies/Adverse Reactions: Allergies Allergy/AdvReac Type Severity Reaction Status Date / Time No Known Allergies Allergy Verified 10/30/16 23:32 Physical Exam - Constitutional Appears: Non-toxic, No Acute Distress, Chronically Ill - Head Exam Head Exam: NORMOCEPHALIC - Eye Exam Eye Exam: EOMI, PERRL Pupil Exam: NORMAL ACCOMODATION, PERRL - ENT Exam ENT Exam: Mucous Membranes Moist, Normal External Ear Exam, TM's Normal Bilaterally - Neck Exam Neck exam: Positive for: Full Rom, Normal Inspection - Respiratory Exam Respiratory Exam: Clear to Auscultation Bilateral, NORMAL BREATHING PATTERN. absent: Rales, Rhonchi, Wheezes - Cardiovascular Exam Cardiovascular Exam: REGULAR RHYTHM, RRR, +S1, +S2 - GI/Abdominal Exam GI & Abdominal Exam: Normal Bowel Sounds, Soft. absent: Distended, Tenderness - Extremities Exam Extremities exam: Positive for: full ROM - Neurological Exam Neurological exam: Alert, CN II-XII Intact, Oriented x3 - Psychiatric Exam Psychiatric exam: Agitated, Anxious - Skin Skin Exam: Intact, Normal Color Results - Vital Signs Recent Vital Signs: Last Vital Signs Temp 98.7 F 12/17/16 11:31 Pulse 65 12/17/16 17:12 Resp 18 12/17/16 17:12 BP 158/97 H 12/17/16 17:12 Pulse Ox 100 12/17/16 17:12 - Labs Result Diagrams: 12/17/16 11:35 12/17/16 13:10 Labs: Laboratory Results - last 24 hr 12/17/16 17:17 Urine Color Yellow Urine Appearance Sl cloudy Urine pH 6.0 Ur Specific [place] 1.020 Urine Protein 30 H Urine Glucose (UA) Negative Urine Ketones Negative Urine Blood Negative Urine Nitrate Negative Urine Bilirubin Negative Urine Urobilinogen 0.2 Ur Leukocyte Esterase Negative Urine RBC 0 - 2 Urine WBC 1 - 3 Ur Epithelial Cells 0 - 2 Assessment & Plan - Assessment and Plan (Free Text) Assessment: 81 yo AA female feeling generally unwell with left hip pain and fatigue. The patient is awake and alert. Troponin found to be elevated somewhat. Patient's past medical history includes HTN, Anxiety, Renal Insufficiency, history of renal mass, ventricular fibrillation, and atrial fibrillation. Dr. Fonseca called for cardiology consult. Serial troponins. Patient may need home services in general. Supportive care. Continue home medications.
[2016-12-17 23:47] VITALS: BMI 24.1
[2016-12-17] MEDS ORDERED: Pneumococcal 23-Valent Vaccine IM ONE (23:47)
[2016-12-17] MEDS ORDERED: Influenza Vaccine 60 mcg/0.5 mL SYR (4YR UP) IM ONE (23:47)
--- NOTE | 2016-12-18 04:47 | CON ---
DATE: 12/17/2016 CARDIOLOGY CONSULTATION HISTORY OF PRESENT ILLNESS: The patient is an 81-year-old woman who presents with mild dyspnea and left hip pain. She denies chest pain. PAST MEDICAL HISTORY: The patient's past medical history is notable for history of atrial fibrillation/atrial flutter, severe pulmonary hypertension, renal insufficiency, hyperlipidemia, as well as history of right and right nephrectomy for renal mass. MEDICATIONS: Her home medications includes Coumadin as well as beta blockers and digoxin for heart rate control for atrial flutter, as well as Lipitor for her hypercholesterolemia. SOCIAL HISTORY: She is a former smoker but denies it now. REVIEW OF SYSTEMS: A 14-point review of systems was free of cardiac symptomatology. PHYSICAL EXAMINATION: VITAL SIGNS: Blood pressure is 158/97 and heart rates in the 60s. GENERAL: The patient is in no acute distress and complaining of hunger. NECK: Negative JVD. LUNGS: Without rales. HEART: Reveals S1 and S2. EXTREMITIES: Without edema. LABORATORY DATA: Hemoglobin is 10.8. Chemistries: BUN and creatinine are 36 and 1.4. Her troponin is 0.34. Her INR is 2.09. IMPRESSION 1. Heu-AP-[id number] elevation myocardial infarction. 2. Mild dyspnea. 3. Severe pulmonary hypertension. 4. Renal insufficiency. 5. Chronic atrial fibrillation on Coumadin 6. Hypertension. PLAN: 1. Given these findings, her borderline elevated troponin likely represents a non-STEMI. 2. We will add an aspirin to her regimen. We will continue anticoagulation at this time. Given her comorbidities, we will treat her acute coronary syndrome medically. Oswald Fonseca MD
[2016-12-18] MEDS: Pantoprazole 40 mg EC Tab PO SCH (05:42)
[2016-12-18] MEDS: POLYETHYLENE GLYCOL 3350 17 GM/Dose PACKET PO SCH ×2 (09:58→10:00)
[2016-12-18] MEDS: Simethicone 80 mg Chewtab PO PRN (11:33)
[2016-12-18] MEDS ORDERED: Oxycodone/Acetaminophen 5/325 mg Tab PO ONE (13:42)
--- NOTE | 2016-12-18 15:39 | CP.PCM.PN ---
Subjective - Date & Time of Evaluation Date of Evaluation: 12/18/16 Time of Evaluation: 14:00 - Subjective Subjective: Internal Medicine/Infectious Disease Follow Up: December 18, 2016 81 yo AA female presenting with generalized weakness, left hip pain, and fatigue. She can only say that she "feels terrible and not right". She states that the symptoms have been there for a few days. The patient's hip pain has been present for several weeks now and noted in her visits to my office. Found to have an elevated troponin in ER. Repeat troponin 0.24. ASA added to regimen. Monitor PT/PTT as patient on Coumadin. Objective - Vital Signs/Intake and Output Vital Signs (last 24 hours): Temp Pulse Resp BP Pulse Ox 98.3 F 56 L 16 155/76 H 100 12/18/16 11:23 12/18/16 14:00 12/18/16 11:23 12/18/16 11:23 12/18/16 05:56 Intake and Output: 12/18/16 12/18/16 06:59 18:59 Intake Total 240 Output Total 0 Balance 240 - Medications Medications: Current Medications Acetaminophen (Tylenol 325mg Tab) 650 mg PO Q4H PRN PRN Reason: Pain, moderate (4-7) Last Admin: 12/18/16 11:34 Dose: 650 mg Alprazolam (Xanax) 0.5 mg PO BID PRN; Protocol PRN Reason: Anxiety Last Admin: 12/17/16 21:59 Dose: 0.5 mg Aspirin (Aspirin Chewable) 81 mg PO DAILY [facility] Last Admin: 12/18/16 09:58 Dose: 81 mg Atorvastatin Calcium (Lipitor) 20 mg PO DIN [facility] Last Admin: 12/17/16 18:53 Dose: 20 mg Digoxin (Lanoxin) 0.125 mg PO 1400 ISAI Donepezil HCl (Aricept) 10 mg PO HS [facility] Last Admin: 12/17/16 21:59 Dose: 10 mg Metoprolol Tartrate (Lopressor) 50 mg PO BID [facility] Last Admin: 12/18/16 09:58 Dose: 50 mg Pantoprazole Sodium (Protonix Ec Tab) 40 mg PO 0600 [facility] Last Admin: 12/18/16 05:42 Dose: 40 mg Polyethylene Glycol (Miralax) 17 gm PO DAILY [facility] Last Admin: 12/18/16 10:00 Dose: Not Given Simethicone (Mylicon Chew Tab) 80 mg PO PCHS PRN PRN Reason: GI distress Last Admin: 12/18/16 11:33 Dose: 80 mg Warfarin Sodium (Coumadin) 3 mg PO 1800 ISAI PRN Reason: Protocol Last Admin: 12/17/16 18:53 Dose: 3 mg - Labs Labs: PT 22.6 Seconds (9.9-11.8) H 12/17/16 11:35 INR 2.09 (0.93-1.08) H 12/17/16 11:35 APTT 31.1 Seconds (23.7-30.8) H 12/17/16 11:35 - Constitutional Appears: Non-toxic, No Acute Distress, Chronically Ill - Head Exam Head Exam: ATRAUMATIC, NORMOCEPHALIC - Eye Exam Eye Exam: EOMI, PERRL Pupil Exam: NORMAL ACCOMODATION, PERRL - ENT Exam ENT Exam: Mucous Membranes Moist, Normal External Ear Exam, TM's Normal Bilaterally - Neck Exam Neck Exam: Full ROM, Normal Inspection - Respiratory Exam Respiratory Exam: Clear to Ausculation Bilateral, NORMAL BREATHING PATTERN. absent: Rales, Rhonchi, Wheezes - Cardiovascular Exam Cardiovascular Exam: REGULAR RHYTHM, RRR, +S1, +S2 - GI/Abdominal Exam GI & Abdominal Exam: Soft, Normal Bowel Sounds. absent: Distended, Tenderness - Extremities Exam Extremities Exam: Full ROM, Normal Inspection - Neurological Exam Neurological Exam: Alert, Awake, CN II-XII Intact, Oriented x3 - Psychiatric Exam Psychiatric exam: Normal Affect, Normal Mood - Skin Skin Exam: Intact, Normal Color Assessment and Plan - Assessment and Plan (Free Text) Assessment: 81 yo AA female feeling generally unwell with left hip pain and fatigue. The patient is awake and alert. Troponin found to be elevated somewhat. Patient's past medical history includes HTN, Anxiety, Renal Insufficiency, history of renal mass, ventricular fibrillation, and atrial fibrillation. Dr. Fonseca called for cardiology consult. Serial troponins. Patient may need home services in general. Supportive care. Continue home medications. Started on ASA yesterday. Medical management.
[2016-12-18] MEDS: Digoxin 125 mcg (0.125 mg) Tab PO SCH (17:13)
[2016-12-18] MEDS: Oxycodone/Acetaminophen 5/325 mg Tab PO PRN (21:11)
[2016-12-19] MEDS: Pantoprazole 40 mg EC Tab PO SCH (06:47)
[2016-12-19 08:07] LABS: BASO # 0.02 K/mm3 (0.0-2.0); BASO % 0.3 % (0.0-3.0); EOS # 0.2 (0.0-0.7); GRAN # 3.54 (1.4-6.5); GRAN % 59.9 % (50.0-68.0); HEMATOCRIT 34.1 % (36.0-48.0); LYMPH # 1.7 (1.2-3.4); LYMPH % 28.9 % (22.0-35.0); MEAN CELL VOLUME 86.8 fl (80.0-105.0); MEAN CORPUSCULAR HGB CONC 31.1 g/dl (31.0-37.0); MEAN PLATELET VOLUME 10.2 fl (7.0-11.0); MONO # 0.5 (0.1-0.6); MONO % 7.9 % (1.0-6.0); RED CELL DISTRIBUTION WIDTH 17.9 % (11.5-14.5); WHITE BLOOD COUNT 5.9 10^3/ul (4.5-11.0)
[2016-12-19 08:11] LABS: INR 2.05 (0.93-1.08); PARTIAL THROMBOPLASTIN TIME 24.5 Seconds (23.7-30.8)
[2016-12-19 08:20] LABS: BILIRUBIN,TOTAL 0.5 mg/dL (0.2-1.3); CALCIUM 9.1 mg/dL (8.4-10.5); POTASSIUM 5.1 mmol/L (3.6-5.0); TOTAL PROTEIN 7.5 g/dL (5.8-8.3)
[2016-12-19] MEDS: Oxycodone/Acetaminophen 5/325 mg Tab PO PRN ×2 (09:10→21:04)
[2016-12-19] MEDS: POLYETHYLENE GLYCOL 3350 17 GM/Dose PACKET PO SCH (09:11)
--- NOTE | 2016-12-19 14:25 | PN ---
DATE: 12/19/2016 REASON FOR DICTATION: Covering Dr. Oswald Fonseca. REASON FOR CONSULTATION: Coronary artery disease, [id number] elevation myocardial infarction due to an exertion, pulmonary hypertension. SUBJECTIVE: The patient denies any chest pain, shortness of breath, and denies any palpitation. OBJECTIVE: GENERAL: Lying flat in the bed, not in apparent distress. VITAL SIGNS: As follows: Temperature afebrile, heart rate 53, blood pressure 170/90. HEENT: PERRLA. Extraocular muscles Intact. NECK: Supple. No carotid bruit or thyromegaly. CHEST: Clear to auscultation. HEART: S1 and S2 regular. ABDOMEN: Soft. EXTREMITIES: Clubbing and cyanosis negative. LABORATORY DATA: Blood workup as follows: WBC 5, hemoglobin 10.6, hematocrit 34.1, platelet count 219. Chemistry shows sodium 139, potassium 5.1, chloride 108, carbon dioxide 21, anion gap of 15, BUN 39 and creatinine 1.4. Troponin 0.34 and 0.24. IMPRESSION: [id number] myocardial infarction, mild dyspnea, pulmonary hypertension, renal insufficiency, hyperlipidemia, atrial fibrillation, chronic on Coumadin, hypertension, troponin is trending down, INR is 2.05. The patient is asymptomatic and as was discussed with Dr. Fonseca, the patient is going to be treated medically, so far no evidence of chest pain or ischemia. Troponin is trending down. Continue Coumadin. Continue baby aspirin. Continue beta khloe. Continue atorvastatin. We will follow with you. Repeat the lab in the morning. We will transfer care on Wednesday to Dr. Oswald Fonseca. Thank you doctor for providing me the opportunity in taking care of the patient, Samuel Smith. Sulema Don MD
[2016-12-19] MEDS: Digoxin 125 mcg (0.125 mg) Tab PO SCH (17:02)
[2016-12-19 17:03] VITALS: PULSE 45
--- NOTE | 2016-12-19 17:26 | CP.PCM.PN ---
Subjective - Date & Time of Evaluation Date of Evaluation: 12/19/16 Time of Evaluation: 16:00 - Subjective Subjective: Internal Medicine/Infectious Disease Follow Up: December 19, 2016 81 yo AA female presenting with generalized weakness, left hip pain, and fatigue. She can only say that she "feels terrible and not right". She states that the symptoms have been there for a few days. The patient's hip pain has been present for several weeks now and noted in her visits to my office. Found to have an elevated troponin in ER. Repeat troponin 0.24. ASA added to regimen. Monitor PT/PTT as patient on Coumadin. Objective - Vital Signs/Intake and Output Vital Signs (last 24 hours): Temp Pulse Resp BP Pulse Ox 98.8 F 60 20 136/71 98 12/19/16 12:00 12/19/16 12:00 12/19/16 12:00 12/19/16 12:00 12/19/16 06:00 Intake and Output: 12/19/16 12/19/16 06:59 18:59 Intake Total 240 Output Total 0 Balance 240 - Medications Medications: Current Medications Acetaminophen (Tylenol 325mg Tab) 650 mg PO Q4H PRN PRN Reason: Pain, moderate (4-7) Last Admin: 12/18/16 11:34 Dose: 650 mg Alprazolam (Xanax) 0.5 mg PO BID PRN; Protocol PRN Reason: Anxiety Last Admin: 12/19/16 11:14 Dose: 0.5 mg Aspirin (Aspirin Chewable) 81 mg PO DAILY [facility] Last Admin: 12/19/16 09:10 Dose: 81 mg Atorvastatin Calcium (Lipitor) 20 mg PO DIN [facility] Last Admin: 12/19/16 17:03 Dose: 20 mg Digoxin (Lanoxin) 0.125 mg PO 1400 [facility] Last Admin: 12/19/16 17:02 Dose: Not Given Donepezil HCl (Aricept) 10 mg PO HS [facility] Last Admin: 12/18/16 21:11 Dose: 10 mg Metoprolol Tartrate (Lopressor) 50 mg PO BID [facility] Last Admin: 12/19/16 17:00 Dose: Not Given Oxycodone/Acetaminophen (Percocet 5/325 Mg Tab) 1 tab PO Q12 PRN PRN Reason: Pain, moderate (4-7) Stop: 12/21/16 22:01 Last Admin: 12/19/16 09:10 Dose: 1 tab Pantoprazole Sodium (Protonix Ec Tab) 40 mg PO 0600 [facility] Last Admin: 12/19/16 06:47 Dose: 40 mg Polyethylene Glycol (Miralax) 17 gm PO DAILY [facility] Last Admin: 12/19/16 09:11 Dose: 17 gm Simethicone (Mylicon Chew Tab) 80 mg PO [facility] PRN PRN Reason: GI distress Last Admin: 12/18/16 11:33 Dose: 80 mg Warfarin Sodium (Coumadin) 3 mg PO 1800 [facility] PRN Reason: Protocol Last Admin: 12/19/16 17:03 Dose: 3 mg - Labs Labs: 12/19/16 07:30 12/19/16 07:30 PT 22.1 Seconds (9.9-11.8) H 12/19/16 07:30 INR 2.05 (0.93-1.08) H 12/19/16 07:30 APTT 24.5 Seconds (23.7-30.8) 12/19/16 07:30 - Constitutional Appears: Non-toxic, No Acute Distress, Chronically Ill - Head Exam Head Exam: ATRAUMATIC, NORMOCEPHALIC - Eye Exam Eye Exam: EOMI, PERRL Pupil Exam: NORMAL ACCOMODATION, PERRL - ENT Exam ENT Exam: Mucous Membranes Moist, Normal External Ear Exam, TM's Normal Bilaterally - Neck Exam Neck Exam: Full ROM, Normal Inspection - Respiratory Exam Respiratory Exam: Clear to Ausculation Bilateral, NORMAL BREATHING PATTERN. absent: Rales, Rhonchi, Wheezes - Cardiovascular Exam Cardiovascular Exam: REGULAR RHYTHM, RRR, +S1, +S2 - GI/Abdominal Exam GI & Abdominal Exam: Soft, Normal Bowel Sounds. absent: Distended, Tenderness - Extremities Exam Extremities Exam: Full ROM, Normal Inspection - Neurological Exam Neurological Exam: Alert, Awake, CN II-XII Intact, Oriented x3 - Psychiatric Exam Psychiatric exam: Normal Affect, Normal Mood - Skin Skin Exam: Intact, Normal Color Assessment and Plan - Assessment and Plan (Free Text) Assessment: 81 yo AA female feeling generally unwell with left hip pain and fatigue. The patient is awake and alert. Troponin found to be elevated somewhat. Patient's past medical history includes HTN, Anxiety, Renal Insufficiency, history of renal mass, ventricular fibrillation, and atrial fibrillation. Dr. Fonseca called for cardiology consult. Serial troponins. Patient may need home services in general. Supportive care. Continue home medications. Continue on ASA. Medical management. Plan for discharge in the next 24-48 hours.
[2016-12-20] MEDS: Pantoprazole 40 mg EC Tab PO SCH (06:00)
[2016-12-20 07:43] LABS: BASO # 0.03 K/mm3 (0.0-2.0); BASO % 0.6 % (0.0-3.0); EOS # 0.2 (0.0-0.7); EOS % 3.3 % (1.5-5.0); GRAN # 2.81 (1.4-6.5); HEMATOCRIT 32.5 % (36.0-48.0); LYMPH # 1.9 (1.2-3.4); LYMPH % 34.9 % (22.0-35.0); MEAN CORPUSCULAR HEMOGLOBIN 27.2 pg (25.0-35.0); MEAN CORPUSCULAR HGB CONC 31.7 g/dl (31.0-37.0); MEAN PLATELET VOLUME 10.3 fl (7.0-11.0); MONO # 0.5 (0.1-0.6); MONO % 9.2 % (1.0-6.0); RED CELL DISTRIBUTION WIDTH 17.7 % (11.5-14.5); WHITE BLOOD COUNT 5.4 10^3/ul (4.5-11.0)
[2016-12-20 07:48] LABS: INR 2.25 (0.93-1.08)
[2016-12-20 07:57] LABS: CALCIUM 9.1 mg/dL (8.4-10.5); MAGNESIUM 1.9 mg/dL (1.7-2.2); PHOSPHOROUS 3.4 mg/dL (2.5-4.5)
[2016-12-20 08:23] LABS: TROPONIN I 0.22 ng/mL
[2016-12-20] MEDS: Oxycodone/Acetaminophen 5/325 mg Tab PO PRN ×2 (09:48→21:42)
[2016-12-20] MEDS: POLYETHYLENE GLYCOL 3350 17 GM/Dose PACKET PO SCH (13:07)
--- NOTE | 2016-12-20 15:19 | RAD ---
PROCEDURE: Left Hip X-ray Radiographs. AP view of the pelvis and AP/frogleg lateral views left hip performed HISTORY: Left hip pain. COMPARISON: Comparison made with prior CT scan of the abdomen and pelvis dated 10/31/2016 which imaged the pelvis and both hips in 3 planes. FINDINGS: BONES: No definitive evidence of acute displaced fracture nor dislocation. Osseous structures appear intact. Both femoral heads are appropriately located within the respective acetabula. . JOINTS: Joint spaces are relatively preserved. SOFT TISSUES: Normal. OTHER FINDINGS: Re- demonstrated are metallic surgical clips right lower quadrant of the abdomen. . Mild multilevel degenerative spondylosis of the visualized lower lumbosacral spine. IMPRESSION: No definitive evidence of acute displaced fracture nor dislocation. If symptoms persist or occult fracture suspected clinically recommend follow-up of CT scan of the left hip
--- NOTE | 2016-12-20 17:50 | CP.PCM.PN ---
Subjective - Date & Time of Evaluation Date of Evaluation: 12/20/16 Time of Evaluation: 15:45 - Subjective Subjective: Internal Medicine/Infectious Disease Follow Up: December 20, 2016 81 yo AA female presenting with generalized weakness, left hip pain, and fatigue. She can only say that she "feels terrible and not right". She states that the symptoms have been there for a few days. The patient's hip pain has been present for several weeks now and noted in her visits to my office. Found to have an elevated troponin in ER. Repeat troponin 0.22. ASA on regimen. Monitor PT/PTT as patient on Coumadin. Left hip X-ray shows no acute fracture. Patient with mild multilevel degenerative spondylosis of the visualized lower lumbosacral spine. Objective - Vital Signs/Intake and Output Vital Signs (last 24 hours): Temp Pulse Resp BP Pulse Ox 97.7 F 58 L 20 127/66 100 12/20/16 12:00 12/20/16 14:00 12/20/16 12:00 12/20/16 12:00 12/20/16 06:00 Intake and Output: 12/20/16 12/20/16 06:59 18:59 Intake Total 240 Output Total 0 Balance 240 - Medications Medications: Current Medications Acetaminophen (Tylenol 325mg Tab) 650 mg PO Q4H PRN PRN Reason: Pain, moderate (4-7) Last Admin: 12/18/16 11:34 Dose: 650 mg Alprazolam (Xanax) 0.5 mg PO BID PRN; Protocol PRN Reason: Anxiety Last Admin: 12/19/16 11:14 Dose: 0.5 mg Aspirin (Aspirin Chewable) 81 mg PO DAILY [facility] Last Admin: 12/20/16 09:48 Dose: 81 mg Atorvastatin Calcium (Lipitor) 20 mg PO DIN [facility] Last Admin: 12/19/16 17:03 Dose: 20 mg Donepezil HCl (Aricept) 10 mg PO HS [facility] Last Admin: 12/19/16 21:04 Dose: 10 mg Oxycodone/Acetaminophen (Percocet 5/325 Mg Tab) 1 tab PO Q12 PRN PRN Reason: Pain, moderate (4-7) Stop: 12/21/16 22:01 Last Admin: 12/20/16 09:48 Dose: 1 tab Pantoprazole Sodium (Protonix Ec Tab) 40 mg PO 0600 [facility] Last Admin: 12/20/16 06:00 Dose: 40 mg Polyethylene Glycol (Miralax) 17 gm PO DAILY [facility] Last Admin: 12/20/16 13:07 Dose: 17 gm Simethicone (Mylicon Chew Tab) 80 mg PO [facility] PRN PRN Reason: GI distress Last Admin: 12/18/16 11:33 Dose: 80 mg Warfarin Sodium (Coumadin) 3 mg PO 1800 [facility] PRN Reason: Protocol Last Admin: 12/19/16 17:03 Dose: 3 mg - Labs Labs: 12/20/16 07:34 12/20/16 07:34 PT 24.3 Seconds (9.9-11.8) H 12/20/16 07:34 INR 2.25 (0.93-1.08) H 12/20/16 07:34 APTT 24.5 Seconds (23.7-30.8) 12/19/16 07:30 - Constitutional Appears: Non-toxic, No Acute Distress, Chronically Ill - Head Exam Head Exam: ATRAUMATIC, NORMOCEPHALIC - Eye Exam Eye Exam: EOMI, PERRL Pupil Exam: NORMAL ACCOMODATION, PERRL - ENT Exam ENT Exam: Mucous Membranes Moist, Normal External Ear Exam, TM's Normal Bilaterally - Neck Exam Neck Exam: Full ROM, Normal Inspection - Respiratory Exam Respiratory Exam: Clear to Ausculation Bilateral, NORMAL BREATHING PATTERN. absent: Rales, Rhonchi, Wheezes - Cardiovascular Exam Cardiovascular Exam: REGULAR RHYTHM, RRR, +S1, +S2 - GI/Abdominal Exam GI & Abdominal Exam: Soft, Normal Bowel Sounds. absent: Distended, Tenderness - Extremities Exam Extremities Exam: Full ROM, Normal Inspection - Neurological Exam Neurological Exam: Alert, Awake, CN II-XII Intact, Oriented x3 - Psychiatric Exam Psychiatric exam: Normal Affect, Normal Mood - Skin Skin Exam: Intact, Normal Color Assessment and Plan - Assessment and Plan (Free Text) Assessment: 81 yo AA female feeling generally unwell with left hip pain and fatigue. The patient is awake and alert. Troponin found to be elevated somewhat. Patient's past medical history includes HTN, Anxiety, Renal Insufficiency, history of renal mass, ventricular fibrillation, and atrial fibrillation. Dr. Fonseca called for cardiology consult. Serial troponins. Patient may need home services in general. Supportive care. Continue home medications. Continue on ASA. Medical management. Plan for discharge in the next 24 hours. Will have social work/ case picker check into home nursing/homemaker services before discharge. Left hip x-ray showing mild multilevel degenerative spondylosis of the visualized lower lumbosacral spine. Troponin improved to 0.22.
--- NOTE | 2016-12-20 20:49 | PN ---
DATE: 12/20/2016 TYPE OF DICTATION: A consult for the cardiology division. REASON FOR DICTATION: Covering for Dr. Oswald Fonseca. REASON FOR CONSULTATION: Followup coronary artery disease, pmd-BD-oldypbh elevation myocardial infarction, atrial fibrillation, slow ventricular rate, pulmonary hypertension. SUBJECTIVE: The patient denies any chest pain, shortness of breath, and denies any palpitation. OBJECTIVE: VITAL SIGNS: Temperature afebrile, heart rate 80, blood pressure 127/66. HEENT: PERRLA. Extraocular muscles Intact. NECK: Supple. No carotid bruit or thyromegaly. CHEST: Clear to auscultation. HEART: S1 and S2 regular. ABDOMEN: Soft. EXTREMITIES: Clubbing and cyanosis negative. LABORATORY DATA: Blood workup as follows: WBC 5.0, hemoglobin 10.6, hematocrit 32.5, platelet count 241. Chemistry shows sodium 137, potassium 5, chloride 106, carbon dioxide 25, anion gap of 13, BUN 39 and creatinine 1.6. Troponin is 0.22. Telemetry shows heart rate 32 with a pause. IMPRESSION: Lwt-ML-cjgvcfl myocardial infarction, mild dyspnea, pulmonary hypertension, renal insufficiency, hyperlipidemia, atrial fibrillation, slow ventricular rate, INR 2.25 today. The patient is asymptomatic and from a cardiology point of view decided to treat medically. The patient has atrial fibrillation with slow ventricular rate. RECOMMENDATIONS: Hold beta-khloe, discontinue digoxin, wait for 24 hours after the washout and offer a beta-khloe, if still remains low may require a cardiac pacemaker depending upon further heart rate. We will discontinue digoxin and get the digoxin level tomorrow. If remained bradycardic or long pause after 24 to 48 hours, then consider a pacemaker. I will transfer care tomorrow to Dr. Oswald Fonseca. Thank you Dr. Farris for providing me the opportunity in taking care of the patient, Sarah Baker. Sulema Don MD
[2016-12-21] MEDS: Pantoprazole 40 mg EC Tab PO SCH (05:31)
[2016-12-21 06:21] VITALS: O2SAT 100
[2016-12-21 07:54] LABS: BASO # 0.03 K/mm3 (0.0-2.0); BASO % 0.5 % (0.0-3.0); EOS # 0.2 (0.0-0.7); EOS % 2.8 % (1.5-5.0); GRAN # 3.23 (1.4-6.5); GRAN % 55.7 % (50.0-68.0); HEMATOCRIT 32.5 % (36.0-48.0); LYMPH # 1.8 (1.2-3.4); LYMPH % 31.8 % (22.0-35.0); MEAN CELL VOLUME 85.8 fl (80.0-105.0); MEAN CORPUSCULAR HEMOGLOBIN 26.9 pg (25.0-35.0); MEAN CORPUSCULAR HGB CONC 31.4 g/dl (31.0-37.0); MEAN PLATELET VOLUME 9.8 fl (7.0-11.0); MONO # 0.5 (0.1-0.6); MONO % 9.2 % (1.0-6.0); RED CELL DISTRIBUTION WIDTH 17.3 % (11.5-14.5); WHITE BLOOD COUNT 5.8 10^3/ul (4.5-11.0)
[2016-12-21 08:03] LABS: INR 2.31 (0.93-1.08)
[2016-12-21 08:19] LABS: CALCIUM 9.4 mg/dL (8.4-10.5); POTASSIUM 5.5 mmol/L (3.6-5.0)
[2016-12-21] MEDS: POLYETHYLENE GLYCOL 3350 17 GM/Dose PACKET PO SCH (09:16)
--- NOTE | 2016-12-21 09:59 | PN ---
DATE: 12/18/2016 SUBJECTIVE: The patient's nausea is resolved. She is walking to the bathroom without issues. PHYSICAL EXAMINATION VITAL SIGNS: Blood pressure is 150/87, heart rate in the 60s. NECK: Negative JVD. LUNGS: Without rales. HEART: Reveals S1, S2. EXTREMITIES: Without edema. LABORATORY DATA: Troponins decreasing from 0.34 to 0.24. Hemoglobin is 10.8. IMPRESSION 1. Lpe-DV-gjznlrlay myocardial infarction. 2. High probability for coronary artery disease. 3. Severe pulmonary hypertension. 4. Left ventricular hypertrophy. 5. Renal insufficiency. 6. Chronic atrial fibrillation. PLAN: Given these findings, I have discussed with the patient the alternatives of medical therapy versus cardiac catheterization. Risks and benefits were discussed. The patient would only agree to medical therapy. I would agree given her age and comorbidities. We will give a trial of medical therapy first. Oswald Fonseca MD
[2016-12-21] MEDS: Oxycodone/Acetaminophen 5/325 mg Tab PO PRN ×2 (10:30→22:35)
--- NOTE | 2016-12-21 17:27 | PN ---
CARDIOLOGY FOLLOWUP DATE: 12/21/2016 SUBJECTIVE: The patient is in bed without shortness of breath, without chest pain. PHYSICAL EXAMINATION: VITAL SIGNS: Blood pressure is 110/60. The heart rate in the 60s, atrial flutter. NECK: Negative JVD. LUNGS: Without rales. HEART: S1 and S2. EXTREMITIES: Without edema. LABORATORY DATA: Hemoglobin is 10.2. Chemistries: Troponin is 0.22 with a BUN and creatinine of 43 and 1.5. IMPRESSION: 1. Atrial flutter with periods of heart block pauses as well as tachycardia. 2. Recent lmy-FE-gakmjggdy myocardial infarction. 3. Coronary artery disease. 4. Severe pulmonary hypertension. 5. Renal insufficiency. PLAN: Given these findings, her beta-blockers were held because of her marked pauses, we will re-institute at 25 b.i.d. instead of high doses of beta-blockers. We will observe on telemetry for 24 hours. Oswald Fonseca MD
--- NOTE | 2016-12-21 17:27 | CP.PCM.PN ---
Subjective - Date & Time of Evaluation Date of Evaluation: 12/21/16 Time of Evaluation: 16:00 - Subjective Subjective: Internal Medicine/Infectious Disease Follow Up: December 21, 2016 81 yo AA female presenting with generalized weakness, left hip pain, and fatigue. She can only say that she "feels terrible and not right". She states that the symptoms have been there for a few days. The patient's hip pain has been present for several weeks now and noted in her visits to my office. Found to have an elevated troponin in ER. Repeat troponin 0.22. ASA on regimen. Monitor PT/PTT as patient on Coumadin. Left hip X-ray shows no acute fracture. Patient with mild multilevel degenerative spondylosis of the visualized lower lumbosacral spine. Episodes of bradycardia on Wednesday down to 40s. Patient is showing pauses in heartrate today up to 3 seconds but with no new symptoms. Objective - Vital Signs/Intake and Output Vital Signs (last 24 hours): Temp Pulse Resp BP Pulse Ox 98.3 F 60 19 128/57 L 100 12/21/16 12:00 12/21/16 14:00 12/21/16 12:00 12/21/16 12:00 12/21/16 06:00 Intake and Output: 12/21/16 12/21/16 06:59 18:59 Intake Total 400 Output Total 0 Balance 400 - Medications Medications: Current Medications Acetaminophen (Tylenol 325mg Tab) 650 mg PO Q4H PRN PRN Reason: Pain, moderate (4-7) Last Admin: 12/21/16 05:34 Dose: 650 mg Alprazolam (Xanax) 0.5 mg PO BID PRN; Protocol PRN Reason: Anxiety Last Admin: 12/21/16 00:12 Dose: 0.5 mg Aspirin (Aspirin Chewable) 81 mg PO DAILY [facility] Last Admin: 12/21/16 09:16 Dose: 81 mg Atorvastatin Calcium (Lipitor) 20 mg PO DIN [facility] Last Admin: 12/20/16 18:06 Dose: 20 mg Donepezil HCl (Aricept) 10 mg PO HS [facility] Last Admin: 12/20/16 21:42 Dose: 10 mg Metoprolol Tartrate (Lopressor) 12.5 mg PO BID [facility] Oxycodone/Acetaminophen (Percocet 5/325 Mg Tab) 1 tab PO Q12 PRN PRN Reason: Pain, moderate (4-7) Stop: 12/21/16 22:01 Last Admin: 12/21/16 10:30 Dose: 1 tab Pantoprazole Sodium (Protonix Ec Tab) 40 mg PO 0600 [facility] Last Admin: 12/21/16 05:31 Dose: 40 mg Polyethylene Glycol (Miralax) 17 gm PO DAILY [facility] Last Admin: 12/21/16 09:16 Dose: 17 gm Simethicone (Mylicon Chew Tab) 80 mg PO [facility] PRN PRN Reason: GI distress Last Admin: 12/18/16 11:33 Dose: 80 mg Warfarin Sodium (Coumadin) 3 mg PO 1800 [facility] PRN Reason: Protocol Last Admin: 12/20/16 18:06 Dose: 3 mg - Labs Labs: 12/21/16 07:50 12/21/16 08:11 PT 25.0 Seconds (9.9-11.8) H 12/21/16 07:50 INR 2.31 (0.93-1.08) H 12/21/16 07:50 APTT 24.5 Seconds (23.7-30.8) 12/19/16 07:30 - Constitutional Appears: Non-toxic, No Acute Distress, Chronically Ill - Head Exam Head Exam: ATRAUMATIC, NORMOCEPHALIC - Eye Exam Eye Exam: EOMI, PERRL Pupil Exam: NORMAL ACCOMODATION, PERRL - ENT Exam ENT Exam: Mucous Membranes Moist, Normal External Ear Exam, TM's Normal Bilaterally - Neck Exam Neck Exam: Full ROM, Normal Inspection - Respiratory Exam Respiratory Exam: Clear to Ausculation Bilateral, NORMAL BREATHING PATTERN. absent: Rales, Rhonchi, Wheezes - Cardiovascular Exam Cardiovascular Exam: Irregular Rhythm, +S1, +S2 - GI/Abdominal Exam GI & Abdominal Exam: Soft, Normal Bowel Sounds. absent: Distended, Tenderness - Extremities Exam Extremities Exam: Full ROM, Normal Inspection - Back Exam Back Exam: Full ROM, NORMAL INSPECTION - Neurological Exam Neurological Exam: Alert, Awake, CN II-XII Intact, Oriented x3 - Psychiatric Exam Psychiatric exam: Normal Affect, Normal Mood - Skin Skin Exam: Intact, Normal Color Assessment and Plan - Assessment and Plan (Free Text) Assessment: 81 yo AA female feeling generally unwell with left hip pain and fatigue. The patient is awake and alert. Troponin found to be elevated somewhat. Patient's past medical history includes HTN, Anxiety, Renal Insufficiency, history of renal mass, ventricular fibrillation, and atrial fibrillation. Dr. Fonseca called for cardiology consult. Serial troponins. Patient may need home services in general. Supportive care. Continue home medications. Continue on ASA. Medical management. Will have social work/case management assistant check into home nursing/ homemaker services before discharge. Episode of bradycardia on Wednesday with rate down to 40s. Pauses in heartrate up to 3 sec. Physical Therapy recommended TRCU placement but patient is not agreeable to that at this time. Left hip x-ray showing mild multilevel degenerative spondylosis of the visualized lower lumbosacral spine. Troponin improved to 0.22 on last check. Awaiting clearance by cardiology... monitor heartrate. Recheck Potassium levels.
[2016-12-21] MEDS ORDERED: Sod Polystyrene Sulf 15 gm/60 ml Susp PO ONE (22:06)
[2016-12-22] MEDS: Pantoprazole 40 mg EC Tab PO SCH (05:59)
[2016-12-22 07:25] LABS: POTASSIUM 4.7 mmol/L (3.6-5.0)
[2016-12-22] MEDS: Simethicone 80 mg Chewtab PO PRN (09:20)
[2016-12-22] MEDS: POLYETHYLENE GLYCOL 3350 17 GM/Dose PACKET PO SCH (09:20)
[2016-12-22] MEDS: Oxycodone/Acetaminophen 5/325 mg Tab PO PRN (09:26)
--- NOTE | 2016-12-22 09:40 | PQF RENAL ---
This form is a permanent part of the medical record Dr. 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 BUN and creatinine elevated on admission. Your documentation notes renal insufficiency. Could you specify stage of CKD? Was ARF present on admission as noted in ER notes? Clarification of your documentation is requested to better reflect the severity of illness and intensity of treatment of your patient. Indicators present [] Oliguria/anuria [] Edema/weight gain [] Hyponatremia [X] Confusion/mental status changes [] Increased Blood Urea Nitrogen/Creatinine [X] Increased Potassium/Decreased potassium [] Anemia (male <13.5, female <12.0) [] Proteinuria [] Metabolic Acidosis OR Alkalosis [] Hypotension/shock [X] Decreased GFR [] Other: [] Location in the medical record that reflects the above clinical findings: PHYSICIAN'S RESPONSE Based on your medical judgment of the clinical indicators outlined above, are you treating this patient for a known or suspected: [] Acute Renal Failure [X] Acute Kidney Injury [] Azotemia/prerenal azotemia [X] Chronic kidney disease Stage I [] Stage II [] Stage III [X] Stage IV [] [] Other condition/diagnosis:[] [] If Unable to Determine, please check the box, sign and date. Present On Admission (POA) Indicator: [X] Present at the time of admission [] Not present at the time of admission [] Clinically Undetermined In responding to this query, please exercise your independent professional judgment. The fact that a question is asked does not imply that any particular answer is desired or expected. Thank you for your clarification on this documentation. 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
[2016-12-22 12:30] VITALS: BP 139/72; PULSE 60; RESP 20; TEMP 98.1
--- NOTE | 2016-12-22 13:59 | PN ---
DATE: 12/22/2016 SUBJECTIVE: The patient's pauses have improved. OBJECTIVE: VITAL SIGNS: Blood pressure 130/72, heart rate is in the 60s. NECK: Negative JVD. LUNGS: Without rales. HEART: Revealed S1 and S2. EXTREMITIES: Without edema. LABORATORY DATA: Hemoglobin was not done today. Chemistries revealed a BUN and creatinine of 40 and 1.5 with a potassium of 4.7. IMPRESSION: 1. Vib-UF-lslgbhdvs myocardial infarction. 2. Atrial fibrillation/flutter with periods of pauses which is better on lower doses of beta blockers. 3. Coronary artery disease. 4. History of hypertension. 5. Severe pulmonary hypertension. 6. Renal insufficiency. Given these findings, her dosage is appropriate at this time to help control the heart rate without her pauses. May discontinue telemetry today. Oswald Fonseca MD
--- NOTE | 2016-12-22 14:51 | IP.NPCORE ---
Acute [place] Core Measure PNote - LVF prior to this hospilization,if known LVF prior to this hospilization: Election Fraction greater than 40% - Ejection Fraction % Fraction %: 73 - Source Source: Echo - Date Date: 08/11/16 - Medications Aspirin Name/Dose/Frequency:: ASA 81mg PO Daily Beta Adrian prescribed: Name/dose/frequency: Lopressor 12.5mg BID Lipid Lowering Agent: Name/Dose/Frequency: Lipitor 20mg PO every evening LDL:: pending Date of test:: 12/22/16
[2016-12-22 16:01] LABS: CHOLESTEROL 110 mg/dL (130-200)
--- NOTE | 2016-12-22 18:24 | CP.PCM.DIS ---
Provider - Provider Date of Admission: 12/18/16 15:05 Attending physician: Amador Crum MD Primary care physician: Amador Crum MD Consults: Oswald Fonseca MD Time Spent in preparation of Discharge (in minutes): 35 Diagnosis - Discharge Diagnosis (1) AMI (acute myocardial infarction) Status: Acute Priority: High Onset Date: ~12/18/16 Hospital Course - Lab Results Lab Results: Most Recent Lab Values WBC 5.8 10^3/ul (4.5-11.0) 12/21/16 07:50 RBC 3.79 10^6/uL (3.5-6.1) 12/21/16 07:50 Hgb 10.2 g/dL (12.0-16.0) L 12/21/16 07:50 Hct 32.5 % (36.0-48.0) L 12/21/16 07:50 MCV 85.8 fl (80.0-105.0) 12/21/16 07:50 MCH 26.9 pg (25.0-35.0) 12/21/16 07:50 MCHC 31.4 g/dl (31.0-37.0) 12/21/16 07:50 RDW 17.3 % (11.5-14.5) H 12/21/16 07:50 Plt Count 237 10^3/uL (120.0-450.0) 12/21/16 07:50 MPV 9.8 fl (7.0-11.0) 12/21/16 07:50 Gran % 55.7 % (50.0-68.0) 12/21/16 07:50 Lymph % (Auto) 31.8 % (22.0-35.0) 12/21/16 07:50 Charles % (Auto) 9.2 % (1.0-6.0) H 12/21/16 07:50 Eos % (Auto) 2.8 % (1.5-5.0) 12/21/16 07:50 Baso % (Auto) 0.5 % (0.0-3.0) 12/21/16 07:50 Gran # 3.23 (1.4-6.5) 12/21/16 07:50 Lymph # 1.8 (1.2-3.4) 12/21/16 07:50 Charles # 0.5 (0.1-0.6) 12/21/16 07:50 Eos # 0.2 (0.0-0.7) 12/21/16 07:50 Baso # 0.03 K/mm3 (0.0-2.0) 12/21/16 07:50 PT 25.0 Seconds (9.9-11.8) H 12/21/16 07:50 INR 2.31 (0.93-1.08) H 12/21/16 07:50 APTT 24.5 Seconds (23.7-30.8) 12/19/16 07:30 Sodium 142 mmol/L (132-148) 12/22/16 06:59 Potassium 4.7 mmol/L (3.6-5.0) 12/22/16 06:59 Chloride 107 mmol/L (98-107) 12/22/16 06:59 Carbon Dioxide 26 mmol/L (21-33) 12/22/16 06:59 Anion Gap 14 (10-20) 12/22/16 06:59 BUN 40 mg/dL (7-21) H 12/22/16 06:59 Creatinine 1.5 mg/dL (0.7-1.2) H 12/22/16 06:59 Est GFR ( Amer) 40 12/22/16 06:59 Est GFR (Non-Af Amer) 33 12/22/16 06:59 Random Glucose 110 mg/dL (70-110) 12/22/16 06:59 Calcium 9.0 mg/dL (8.4-10.5) 12/22/16 06:59 Phosphorus 3.4 mg/dL (2.5-4.5) 12/20/16 07:34 Magnesium 1.9 mg/dL (1.7-2.2) 12/20/16 07:34 Total Bilirubin 0.5 mg/dL (0.2-1.3) 12/19/16 07:30 AST 30 U/L (14-36) 12/19/16 07:30 ALT 28 U/L (7-56) 12/19/16 07:30 Alkaline Phosphatase 68 U/L (38-126) 12/19/16 07:30 Lactate Dehydrogenase 544 U/L (333-699) 12/20/16 07:34 Total Creatine Kinase 44 U/L (35-230) 12/20/16 07:34 Troponin I 0.22 ng/mL H* 12/20/16 07:34 NT-Pro-B Natriuret Pep 2090 pg/mL (0-450) H 12/17/16 13:10 Total Protein 7.5 g/dL (5.8-8.3) 12/19/16 07:30 Albumin 3.8 g/dL (3.0-4.8) 12/19/16 07:30 Globulin 3.8 gm/dL 12/19/16 07:30 Albumin/Globulin Ratio 1.0 (1.1-1.8) L 12/19/16 07:30 Triglycerides 70 mg/dL (35-160) 12/22/16 06:59 Cholesterol 110 mg/dL (130-200) L 12/22/16 06:59 LDL Cholesterol Direct 42 mg/dL (0-129) 12/22/16 06:59 HDL Cholesterol 43 mg/dL (29-60) 12/22/16 06:59 Urine Color Yellow (YELLOW) 12/17/16 17:17 Urine Appearance Sl cloudy (CLEAR) 12/17/16 17:17 Urine pH 6.0 (4.7-8.0) 12/17/16 17:17 Ur Specific [place] 1.020 (1.005-1.035) 12/17/16 17:17 Urine Protein 30 mg/dL (<30 mg/dL) H 12/17/16 17:17 Urine Glucose (UA) Negative mg/dL (NEGATIVE) 12/17/16 17:17 Urine Ketones Negative mg/dL (NEGATIVE) 12/17/16 17:17 Urine Blood Negative (NEGATIVE) 12/17/16 17:17 Urine Nitrate Negative (NEGATIVE) 12/17/16 17:17 Urine Bilirubin Negative (NEGATIVE) 12/17/16 17:17 Urine Urobilinogen 0.2 E.U./dL (<1 E.U./dL) 12/17/16 17:17 Ur Leukocyte Esterase Negative Chidi/uL (NEGATIVE) 12/17/16 17:17 Urine RBC 0 - 2 /hpf (0-2) 12/17/16 17:17 Urine WBC 1 - 3 /hpf (0-6) 12/17/16 17:17 Ur Epithelial Cells 0 - 2 /hpf (0-5) 12/17/16 17:17 Digoxin 0.9 ng/mL (0.8-2.0) 12/21/16 07:50 Influenza Typ A,B (EIA) Negative for flu a/b (NEGATIVE) 12/18/16 08:20 - Hospital Course Hospital Course: Internal Medicine/Infectious Disease Follow Up: December 22, 2016 81 yo AA female presenting with generalized weakness, left hip pain, and fatigue. She can only say that she "feels terrible and not right". She states that the symptoms have been there for a few days. The patient's hip pain has been present for several weeks now and noted in her visits to my office. Found to have an elevated troponin in ER. Repeat troponin 0.22. Assumed AMI despite low to moderate troponin levels. ASA on regimen. Monitor PT/PTT as patient on Coumadin. Left hip X-ray shows no acute fracture. Patient with mild multilevel degenerative spondylosis of the visualized lower lumbosacral spine. Episodes of bradycardia on Wednesday down to 40s. Patient is showing pauses in heartrate yesterday up to 3 seconds but with no new symptoms. Readjusted to metoprolol 12.5 mg BID and stoppage of digoxin. No pauses today and heartrate stable in 50s so far today. Hyperkalemia up to 5.5. Monitor potassium levels closely. Today potassium down to 4.7 but the patient had Kayexalate last night. - Date & Time of H&P Date of H&P: 12/17/16 Time of H&P: 18:04 Discharge Exam - Head Exam Head Exam: ATRAUMATIC, NORMOCEPHALIC - Eye Exam Eye Exam: EOMI, PERRL Pupil Exam: NORMAL ACCOMODATION, PERRL - ENT Exam ENT Exam: Mucous Membranes Moist, Normal External Ear Exam, TM's Normal Bilaterally - Neck Exam Neck exam: Normal Inspection - Respiratory Exam Respiratory Exam: Clear to PA & Lateral, NORMAL BREATHING PATTERN. absent: Rales, Rhonchi, Wheezes - Cardiovascular Exam Cardiovascular Exam: REGULAR RHYTHM, RRR, +S1, +S2 - GI/Abdominal Exam GI & Abdominal Exam: Normal Bowel Sounds, Soft. absent: Distended, Tenderness - Extremities Exam Extremities exam: full ROM, normal inspection - Neurological Exam Neurological exam: Alert, CN II-XII Intact, Oriented x3 - Psychiatric Exam Psychiatric exam: Normal Affect, Normal Mood - Skin Skin Exam: Intact, Normal Color Discharge Plan - Discharge Medications Prescriptions: Aspirin [Aspirin Chewable] 81 mg PO DAILY #30 chew Metoprolol Tartrate [Lopressor] 12.5 mg PO BID #60 tab - Follow Up Plan Condition: FAIR Disposition: HOME/ ROUTINE Instructions: Warfarin (By mouth), Myocardial Infarction (DC), Heart Failure ( DC), Heart Healthy Diet (DC), Dyspnea (GEN), Hip Pain (GEN), Heart Failure (GEN) , Pacemaker (DC), Pacemaker (GEN), Pulmonary Edema (DC), Pulmonary Edema (GEN), Ascites (DC), Ascites (GEN) Additional Instructions: 81 yo AA female feeling generally unwell with left hip pain and fatigue. The patient is awake and alert. Troponin found to be elevated somewhat. Patient's past medical history includes HTN, Anxiety, Renal Insufficiency, history of renal mass, ventricular fibrillation, and atrial fibrillation. Dr. Fonseca called for cardiology consult. Serial troponins. Patient may need home services in general. Supportive care. Continue home medications. Continue on ASA. Medical management. Will have social work/casework specialist check into home nursing/ homemaker services before discharge. Episode of bradycardia on Wednesday with rate down to 40s. Pauses in heartrate up to 3 sec yesterday. Physical Therapy recommended TRCU placement but patient is not agreeable to that at this time. Left hip x-ray showing mild multilevel degenerative spondylosis of the visualized lower lumbosacral spine. Troponin improved to 0.22 on last check. Monitor Potassium levels. Metoprolol decreased to 12.5mg BID and ASA added to the regimen during this hospitalization. Supportive care. Will follow as outpatient. Adjustments in medications with stoppage of digoxin appear to have stabilized heartrate in the 50s and taken care of the pauses present earlier.
== END 2016-12-22 16:35 | disposition home or self-care (01) | DRG 281 ==
LOC: ED 10:55 → ERH 14:24 → 2RSO 17:36 → OBSVTOIN 12-18 15:05
PROVIDERS: ADMIT Internal Medicine Infectious Disease; ATTEND Internal Medicine Infectious Disease
DX: I21.4 Non-ST elevation (NSTEMI) myocardial infarction (principal); I13.0 Hypertensive heart and chronic kidney disease with heart failure and stage 1 through stage 4 chronic kidney disease, or unspecified chronic kidney disease; N17.9 Acute kidney failure, unspecified; I48.92 Unspecified atrial flutter; I50.9 Heart failure, unspecified; I27.20 Pulmonary hypertension, unspecified; N18.3 Chronic kidney disease, stage 3 (moderate); I48.2 Chronic atrial fibrillation; E78.00 Pure hypercholesterolemia, unspecified; I25.10 Atherosclerotic heart disease of native coronary artery without angina pectoris; E87.5 Hyperkalemia; D64.9 Anemia, unspecified; M47.817 Spondylosis without myelopathy or radiculopathy, lumbosacral region; R00.1 Bradycardia, unspecified; M54.32 Sciatica, left side; F41.9 Anxiety disorder, unspecified; Z86.73 Personal history of transient ischemic attack (TIA), and cerebral infarction without residual deficits; Z79.01 Long term (current) use of anticoagulants; Z85.528 Personal history of other malignant neoplasm of kidney; Z90.5 Acquired absence of kidney; Z87.891 Personal history of nicotine dependence

== ENCOUNTER 2017-03-18 15:34 | Inpatient (IN) | payer MEDICARE ==
[2017-03-18 15:34] VITALS: PULSE 45
[2017-03-18 15:39] VITALS: BMI 20.7
--- NOTE | 2017-03-18 16:30 | ED PDOC ---
Arrival/HPI - General Chief Complaint: Shortness Of Breath Time Seen by Provider: 03/18/17 15:48 Historian: Patient - History of Present Illness Narrative History of Present Illness (Text): 03/18/17 16:24 A 81 year old female, whose past medical history includes atrial fibrillation, presents to the emergency department complaining of dyspnea on exertion since last night. Patient reports her symptoms began at midnight after waking up to walk to the bathroom. She notes her symptom worsens when laying down flat. Patient denies any fever, chills, nausea, vomiting, abdominal pain, chest pain or any other complaints. Time/Duration: Other (last night at midnight) Symptom Course: Unchanged Context: Home Past Medical History - Provider Review Nursing Documentation Reviewed: Yes - Infectious Disease Hx of Infectious Diseases: None - Tetanus Immunization Tetanus Immunization: >10 years Ago - Reproductive Menopause: Yes - Cardiac Hx Cardiac Disorders: Yes Hx Congestive Heart Failure: Yes Hx Hypertension: Yes - Pulmonary Hx Respiratory Disorders: Yes - Neurological HX Cerebrovascular Accident: (pt denies) - HEENT Hx HEENT Disorder: Yes (eyeglasses) - Renal Hx Renal Disorder: Yes Hx Renal Cancer: (pt denies) Other/Comment: Right nephrectomy 25 or 30 yrs ago as per pt - Endocrine/Metabolic Hx Endocrine Disorders: No - Hematological/Oncological Hx Blood Disorders: Yes (blood transfusion) Hx Anemia: Yes Hx Cancer: (pt denies) Other/Comment: pt denies renal cell ca - Integumentary Hx Dermatological Disorder: No - Musculoskeletal/Rheumatological Hx Arthritis: Yes - Gastrointestinal Hx Gastroesophageal Reflux: Yes - Genitourinary/Gynecological Hx Genitourinary Disorders: No - Psychiatric Hx Psychophysiologic Disorder: Yes Hx Anxiety: Yes Hx Substance Use: No - Surgical History Other/Comment: Right nephrectomy - Anesthesia Hx Anesthesia: Yes Hx Anesthesia Reactions: No Hx Malignant Hyperthermia: No Family/Social History - Physician Review Nursing Documentation Reviewed: Yes Family/Social History: No Known Family HX Smoking Status: Former Smoker Hx Alcohol Use: No Hx Substance Use: No Allergies/Home Meds Allergies/Adverse Reactions: Allergies No Known Allergies Allergy (Verified 03/18/17 15:43) Home Medications: Home Meds Medication Instructions Recorded Confirmed ALPRAZolam [Xanax] 0.5 mg PO BID PRN 10/31/16 03/18/17 Warfarin [Coumadin] 3 mg PO DAILY 10/31/16 03/18/17 Review of Systems - Physician Review All systems were reviewed & negative as marked: Yes - Review of Systems Constitutional: absent: Fevers, Night Sweats Cardiovascular: ALVA. absent: Chest Pain Gastrointestinal: absent: Abdominal Pain, Nausea, Vomiting Physical Exam Vital Signs Reviewed: Yes Vital Signs Temp Pulse Resp BP Pulse Ox 03/18/17 16:02 97.7 F 41 L 18 136/65 100 Temperature: Afebrile Blood Pressure: Normal Pulse: Bradycardic Respiratory Rate: Normal Appearance: Positive for: Well-Appearing, Non-Toxic, Comfortable Pain Distress: None Mental Status: Positive for: Alert and Oriented X 3 - Systems Exam Head: Present: Atraumatic, Normocephalic Pupils: Present: PERRL Extroacular Muscles: Present: EOMI Conjunctiva: Present: Normal Mouth: Present: Moist Mucous Membranes Neck: Present: Normal Range of Motion, JVD Respiratory/Chest: Present: Good Air Exchange, Rales (to bilateral bases). No: Respiratory Distress, Accessory Muscle Use Cardiovascular: Present: Regular Rate and Rhythm, Normal S1, S2. No: Murmurs Abdomen: Present: Normal Bowel Sounds. No: Tenderness, Distention, Peritoneal Signs Back: Present: Normal Inspection Upper Extremity: Present: Normal Inspection, NORMAL PULSES. No: Cyanosis, Edema Lower Extremity: Present: Normal Inspection. No: Edema, CALF TENDERNESS, NORMAL PULSES Neurological: Present: GCS=15, CN II-XII Intact, Speech Normal Skin: Present: Warm, Dry, Normal Color. No: Rashes Psychiatric: Present: Alert, Oriented x 3, Normal Insight, Normal Concentration Medical Decision Making ED Course and Treatment: 03/18/17 16:24 Impression: A 81 year old female with dyspnea on exertion. No chest pain. Plan: -- Chest xray -- EKG -- Labs -- Urinalysis -- Reassess and disposition Progress Notes: EKG shows sinus bradycardia at 38 BPM with no change in rhythm from prior EKG on 12/2016, but changes in QRS morphology, down going T-waves in V4-6. Interpreted by me. 03/18/17 17:56 Discussed the case with Dr. VELÁSQUEZ, ADMIT TELE CONSULT TANISHA REILLY - Lab Interpretations Lab Results: 03/18/17 16:54 03/18/17 16:54 Lab Results 03/18/17 16:54: Digoxin < 0.4 L 03/18/17 16:54: Sodium 144, Potassium 4.4, Chloride 112 H, Carbon Dioxide 17 L, Anion Gap 20, BUN 34 H, Creatinine 2.4 H, Est GFR ( Amer) 23, Est GFR ( Non-Af Amer) 19, Random Glucose 100, Calcium 9.7, Total Bilirubin 0.4, AST 36, ALT 34, Alkaline Phosphatase 78, Lactate Dehydrogenase 718 H, Total Creatine Kinase 79, Troponin I 0.05 D, NT-Pro-B Natriuret Pep 7220 H, Total Protein 7.9 , Albumin 3.8, Globulin 4.1, Albumin/Globulin Ratio 0.9 L 03/18/17 16:54: PT 22.7 H, INR 1.96 H 03/18/17 16:54: WBC 5.1, RBC 4.00, Hgb 7.8 L D, Hct 27.3 L, MCV 68.3 L D, MCH 19.5 L, MCHC 28.6 L, RDW 21.0 H, Plt Count 353, MPV 9.0, Gran % 67.7, Lymph % ( Auto) 21.2 L, Casey % (Auto) 9.9 H, Eos % (Auto) 0.6 L, Baso % (Auto) 0.6, Gran # 3.47, Lymph # 1.1 L, Casey # 0.5, Eos # 0.0, Baso # 0.03 I have reviewed the lab results: Yes - RAD Interpretation Radiology Orders: 03/18/17 16:17 CHEST PORTABLE [RAD] Stat - Medication Orders Current Medication Orders: Discontinued Medications Oxycodone/Acetaminophen (Percocet 5/325 Mg Tab) 1 tab PO STAT STA Stop: 03/18/17 17:01 Last Admin: 03/18/17 17:35 Dose: 1 tab MAR Pain Assessment Document 03/18/17 17:35 HI (Rec: 03/18/17 17:35 NC [id number]) Pain Reassessment Is this a pain reassessment? No - Scribe Statement The provider has reviewed the documentation as recorded by the Scribe Shruthi Hilario Provider Scribe Attestation: All medical record entries made by the Scribe were at my direction and personally dictated by me. I have reviewed the chart and agree that the record accurately reflects my personal performance of the history, physical exam, medical decision making, and the department course for this patient. I have also personally directed, reviewed, and agree with the discharge instructions and disposition. Disposition/Present on Arrival - Present on Arrival Any Indicators Present on Arrival: No History of DVT/PE: No History of Uncontrolled Diabetes: No Urinary Catheter: No History of Decub. Ulcer: No History Surgical Site Infection Following: None - Disposition Have Diagnosis and Disposition been Completed?: Yes Diagnosis: CHF (congestive heart failure), Bradycardia, Profound anemia Disposition: HOSPITALIZED Disposition Time: 17:58 Patient Plan: Admission, Telemetry Condition: IMPROVED Discharge Instructions (ExitCare): Heart Failure (ED) Referrals: Sopiha Ball, [Primary Care Provider] - Follow up with primary Forms: [facility] (Guatemalan), WORK NOTE
[2017-03-18] MEDS ORDERED: Oxycodone/Acetaminophen 5/325 mg Tab PO STA (17:00)
[2017-03-18 17:21] LABS: BASO # 0.03 K/mm3 (0.0-2.0); BASO % 0.6 % (0.0-3.0); EOS % 0.6 % (1.5-5.0); GRAN # 3.47 (1.4-6.5); GRAN % 67.7 % (50.0-68.0); LYMPH # 1.1 (1.2-3.4); LYMPH % 21.2 % (22.0-35.0); MEAN CELL VOLUME 68.3 fl (80.0-105.0); MEAN CORPUSCULAR HEMOGLOBIN 19.5 pg (25.0-35.0); MEAN CORPUSCULAR HGB CONC 28.6 g/dl (31.0-37.0); MONO # 0.5 (0.1-0.6); MONO % 9.9 % (1.0-6.0); WHITE BLOOD COUNT 5.1 10^3/ul (4.5-11.0)
--- NOTE | 2017-03-18 17:23 | RAD ---
HISTORY: Dyspnea on exertion COMPARISON: 12/17/2016 FINDINGS: LUNGS: No active pulmonary disease. PLEURA: No significant pleural effusion identified, no pneumothorax apparent. CARDIOVASCULAR: Moderate cardiomegaly OSSEOUS STRUCTURES: No significant abnormalities. VISUALIZED UPPER ABDOMEN: Normal. OTHER FINDINGS: None. IMPRESSION: No active disease.
[2017-03-18 17:30] LABS: ALB/GLOB RATIO 0.9 (1.1-1.8); ALBUMIN 3.8 g/dL (3.0-4.8); CALCIUM 9.7 mg/dL (8.4-10.5)
[2017-03-18 17:32] LABS: HEMOGLOBIN 7.8 g/dL (12.0-16.0)
[2017-03-18 17:34] LABS: INR 1.96 (0.93-1.08); PROTHROMBIN TIME 22.7 SECONDS (9.4-12.5)
[2017-03-18 17:38] LABS: TROPONIN I 0.05 ng/mL
[2017-03-18 17:51] LABS: PH,URINE 5.5 (4.7-8.0); URINE BILIRUBIN NEGATIVE (NEGATIVE); URINE BLOOD NEGATIVE (NEGATIVE); URINE GLUCOSE (UA) NEGATIVE (NEGATIVE); URINE LEUKOCYTE ESTERASE SMALL Leu/uL (NEGATIVE); URINE NITRATE NEGATIVE (NEGATIVE); URINE PROTEIN 100 mg/dL (<30 mg/dL); URINE UROBILINOGEN 0.2 E.U./dL (<1 E.U./dL)
[2017-03-18 18:06] LABS: URINE APPEARANCE CLEAR (CLEAR); URINE COLOR YELLOW (YELLOW)
[2017-03-18 18:18] LABS: URINE BACTERIA MANY (NEG); URINE RBC 0 - 2 /hpf (0-2); URINE WBC 20 - 25 /hpf (0-6)
--- NOTE | 2017-03-18 23:06 | CP.PCM.HP ---
History of Present Illness - History of Present Illness History of Present Illness: Internal Medicine/Infectious Disease H&P: March 18, 2017 81 yo AA female presenting with Dyspnea on Exertion. Recently discharged from [facility]. No fevers, chills, nausea, vomiting, or diarrhea. Mental lability the past 2 weeks. I do not feel that the patient is able to care for herself at home. I also am unable to evaluate if the patient is taking her medications properly at home. PMHx: Hypertension, Anxiety, history of renal cancer/mass, sciatica, hypercholesterolemia, prior tobacco use history, atrial fibrillation. Last hospitalization showed ventricular fibrillation although it appears that occurred only once. Mass in right kidney that led to nephrectomy done by Dr. Hannon several years ago. PSHx: Nephrectomy, right side Allergies: NKDA Social Hx: No recent tobacco, EtOH, or illicit drug use. Recent loss of her brother ( occurred almost a year ago). Prior tobacco user. Active Medications Aspirin (Aspirin Chewable) 81 mg PO DAILY ISAI Atorvastatin Calcium (Lipitor) 20 mg PO DIN ISAI Donepezil HCl (Aricept) 10 mg PO HS ISAI Pantoprazole Sodium (Protonix 40mg Ivpb) 40 mg in 100 mls @ 200 mls/hr IVPB 0600 ISAI Metoprolol Succinate (Toprol Xl) 12.5 mg PO BRK ISAI Warfarin Sodium (Coumadin) 3 mg PO 1800 ISAI PRN Reason: Protocol Family Hx: CAD in multiple family members ROS: no fevers, chills, nausea, vomiting, diarrhea, headaches, dizziness, chest pain , abdominal pain, melena, hematuria, hematemesis, hematochezia, SOB, wheezing, vision loss, loss of consciousness, hearing loss. She has anxiety. Present on Admission - Present on Admission Any Indicators Present on Admission: No Past Patient History - Infectious Disease Hx of Infectious Diseases: None - Tetanus Immunizations Tetanus Immunization: >10 years Ago - Past Medical History & Family History Past Medical History?: Yes - Past Social History Smoking Status: Former Smoker - CARDIAC Hx Cardiac Disorders: Yes Hx Congestive Heart Failure: Yes Hx Hypertension: Yes - PULMONARY Hx Respiratory Disorders: Yes - NEUROLOGICAL HX Cerebrovascular Accident: (pt denies) - HEENT Hx HEENT Problems: Yes (eyeglasses) - RENAL Hx Chronic Kidney Disease: Yes Hx Renal (Kidney) Cancer: (pt denies) Other/Comment: Right nephrectomy 25 or 30 yrs ago as per pt - ENDOCRINE/METABOLIC Hx Endocrine Disorders: No - HEMATOLOGICAL/ONCOLOGICAL Hx Blood Disorders: Yes (blood transfusion) Hx Anemia: Yes Hx Cancer: (pt denies) Other/Comment: pt denies renal cell ca - INTEGUMENTARY Hx Dermatological Problems: No - MUSCULOSKELETAL/RHEUMATOLOGICAL Hx Arthritis: Yes - GASTROINTESTINAL Hx Gastroesophageal Reflux: Yes - GENITOURINARY/GYNECOLOGICAL Hx Genitourinary Disorders: No - PSYCHIATRIC Hx Psychophysiologic Disorder: Yes Hx Anxiety: Yes Hx Substance Use: No - SURGICAL HISTORY Other/Comment: Right nephrectomy - ANESTHESIA Hx Anesthesia: Yes Hx Anesthesia Reactions: No Hx Malignant Hyperthermia: No Meds Allergies/Adverse Reactions: Allergies Allergy/AdvReac Type Severity Reaction Status Date / Time No Known Allergies Allergy Verified 03/18/17 15:43 Physical Exam - Constitutional Appears: Confused - Head Exam Head Exam: ATRAUMATIC, NORMOCEPHALIC - Eye Exam Eye Exam: EOMI, PERRL Pupil Exam: NORMAL ACCOMODATION, PERRL - ENT Exam ENT Exam: Mucous Membranes Moist, Normal External Ear Exam, TM's Normal Bilaterally - Neck Exam Neck exam: Positive for: Full Rom, Normal Inspection - Respiratory Exam Respiratory Exam: Clear to Auscultation Bilateral, NORMAL BREATHING PATTERN. absent: Rales, Rhonchi, Wheezes - Cardiovascular Exam Cardiovascular Exam: REGULAR RHYTHM, RRR, +S1, +S2 - GI/Abdominal Exam GI & Abdominal Exam: Normal Bowel Sounds, Soft. absent: Distended, Tenderness - Extremities Exam Extremities exam: Positive for: full ROM, normal inspection - Neurological Exam Neurological exam: Alert, CN II-XII Intact Additional comments: Confusion - Psychiatric Exam Psychiatric exam: Agitated, Depressed - Skin Skin Exam: Intact, Normal Color Results - Vital Signs Recent Vital Signs: Last Vital Signs Temp 97.7 F 03/18/17 16:02 Pulse 36 L 03/18/17 20:28 Resp 18 03/18/17 20:28 BP 136/58 L 03/18/17 20:28 Pulse Ox 97 03/18/17 20:28 - Labs Result Diagrams: 03/18/17 16:54 03/18/17 16:54 Labs: Laboratory Results - last 24 hr 03/18/17 18:35 Blood Type AB POSITIVE Antibody Screen Negative Crossmatch See Detail BBK History Checked Patient has bt Assessment & Plan - Assessment and Plan (Free Text) Assessment: 81 yo AA female with complaints of Dyspnea on Exertion. Unclear if the patient takes her medication properly at home. The patient has run off previous home nursing help in the past few months. Recent hospitalizations to [facility] and [facility] [place]. Chronically low heart rate. Periods of confusion. Evaluations by Cardiology, Nephrology, and Psychiatry. Consider Subacute care if patient is a candidate. CHF?
[2017-03-19] MEDS ORDERED: Pantoprazole 40mg/100ml IVPB 40 MG/100 ML BAG IVPB SCH (06:00)
[2017-03-19] MEDS ORDERED: Metoprolol Succinate 25 mg XL Tab PO SCH ×2 (08:00→09:20)
[2017-03-19 10:28] LABS: BASO # 0.05 K/mm3 (0.0-2.0); BASO % 0.8 % (0.0-3.0); EOS % 0.2 % (1.5-5.0); GRAN # 4.29 (1.4-6.5); GRAN % 72.8 % (50.0-68.0); HEMOGLOBIN 8.1 g/dL (12.0-16.0); LYMPH # 1.2 (1.2-3.4); LYMPH % 19.8 % (22.0-35.0); MEAN CELL VOLUME 67.5 fl (80.0-105.0); MEAN CORPUSCULAR HEMOGLOBIN 19.5 pg (25.0-35.0); MEAN CORPUSCULAR HGB CONC 28.8 g/dl (31.0-37.0); MEAN PLATELET VOLUME 9.5 fl (7.0-11.0); MONO # 0.4 (0.1-0.6); MONO % 6.4 % (1.0-6.0); RBC 4.16 10^6/uL (3.5-6.1); RED CELL DISTRIBUTION WIDTH 20.7 % (11.5-14.5); WHITE BLOOD COUNT 5.9 10^3/ul (4.5-11.0)
[2017-03-19] MEDS: Levalbuterol 0.63 MG/3 ML Inhal Soln UD IH PRN (10:32)
[2017-03-19] MEDS: Oxycodone/Acetaminophen 2.5/325 mg Tab PO PRN ×2 (14:25→21:17)
[2017-03-19] MEDS ORDERED: Dextrose 5%/0.9% NS 1,000 ML IV SCH (15:45)
--- NOTE | 2017-03-19 15:54 | CP.PCM.CON ---
History of Present Illness - History of Present Illness History of Present Illness: Initial Nephrology Consultation: Assessment: acute Kidney injury with high anion gap acidosis likely starvation ketoacidosis and pre-renal state as urine very concentrated Chronic Kidney Disease Stage 3 (N18.3) with ? proteinuria possibly due to HTN, age related decline, and s/p Rt nephrectomy due to hx of RCC ? symptomatic Anemia chronic, Hypertension controlled (I12.9) Vit D insufficiency with secondary hyperparathyroidism hx of severe pulmonary HTN (RVSP 81 mm Hg) and moderate to severe LVH hx of dementia Plan no acute need of renal replacement therapy at this time Hypertension control with meds as ordered. no ACEI/ARB due to PATRICIA She is already on statin started on iron 324 mg TID and MVI will start IVF as D5NS anemia management as per primary team. consider heme eval. check TSAT/Ferritin/ B12/folate/FOBT ordered spot protein/creatinine and urine lytes check lactic acid if gap remains high Dose meds/antibiotics for reduced GFR. Avoid fleets enema/magnesium based laxatives. Avoid nephrotoxins/NSAIDs anemia management as per heme Further work up as per primary team Thanks for allowing me to participate in care of your patient. Will follow patient with you. Please call if any Qs Dr Jt Lemon Office: [phone] Chief Complaint: Shortness of breath Reason for consult: CKD and PATRICIA HPI: Pt is a 81 y/o F with hx of hypertension (20 years) , renal cell cancer s/ p unilateral total nephrectomy, CKD stage 3 with baseline cr 1.4-1.7 since 2017 but intermittent episodes of PATRICIA, chronic anemia, A fib recently admitted to [facility] now here with c/o SOB for last 1 day. now she feels better. denies SOB/ chest pain/nausea or urinary complaints. denies nsaids ROS: Constitutional Symptoms: Denies fever. No chills. No Recent Weight Changes Eyes: denies change in vision, denies watery eyes, denies double vision Ears/Nose/Mouth/Throat: Denies Abnormal Taste. No Bad breath or Bad Taste. Cardiovascular: No chest pain. There is improved shortness of breath. No palpitations. Pulmonary: improved shortness of breath no cough. Gastrointestinal: denies abdominal pain No nausea. No vomiting. Denies change in bowel habits. Denies Bleeding rest all other negative Physical Examination: General Appearance: Comfortable, in no acute respiratory distress, co-operative . Vitals reviewed and noted as below Head; Atraumatic, normocephalic ENT: no ulcers no thrush. Tongue is midline. Oropharynx: no rash or ulcers. EYES: Pupils are equal, round and reactive to light accommodation. Eye muscles and extraocular movement intact. Sclera is anicteric. Neck; supple no lymphadenopathy, no thyromegaly or bruit Lungs: Normal respiratory rate/effort. Breath sounds bilateral equal and clear except occasional crackle left base Heart: Normal rate. s1s2 normal. No rub or gallop. Extremities: no edema. No varicose veins Neurological: Patient is alert, awake and oriented x3 but seems forgetful, sometime trying to make up for it. No other focal deficit. Strength bilateral appropriate and equal Skin: Warm and dry. Normal turgor. No rash. Palpitation: Normal elasticity for age Abdomen: Abdomen is soft. Bowel sounds +. There is no abdominal tenderness, no guarding/rigidity or organomegaly Psych: lack insight and has normal affect/mood MSK: no joint tenderness or swelling. Digits and nails normal, no deformity : kidney or bladder not palpable Labs/imaging/EKG reviewed. Past medical history, past surgical history,social history, allergy reviewed and noted as below FAMILy HX; no hx of CKD. non contributory work up: UA: SG >1.[address] 2017: s/p Rt nephrectomy, left kidney unremarkable TSAT 1% Ferritin 540 Vit D 21 PTH 229 Past Patient History - Infectious Disease Hx of Infectious Diseases: None - Tetanus Immunizations Tetanus Immunization: >10 years Ago - Past Medical History & Family History Past Medical History?: Yes - Past Social History Smoking Status: Former Smoker - CARDIAC Hx Cardiac Disorders: Yes Hx Congestive Heart Failure: Yes Hx Hypertension: Yes - PULMONARY Hx Respiratory Disorders: Yes - NEUROLOGICAL HX Cerebrovascular Accident: (pt denies) - HEENT Hx HEENT Problems: Yes (eyeglasses) - RENAL Hx Chronic Kidney Disease: Yes Hx Renal (Kidney) Cancer: (pt denies) Other/Comment: Right nephrectomy 25 or 30 yrs ago as per pt - ENDOCRINE/METABOLIC Hx Endocrine Disorders: No - HEMATOLOGICAL/ONCOLOGICAL Hx Blood Disorders: Yes (blood transfusion) Hx Anemia: Yes Hx Cancer: (pt denies) Other/Comment: pt denies renal cell ca - INTEGUMENTARY Hx Dermatological Problems: No - MUSCULOSKELETAL/RHEUMATOLOGICAL Hx Arthritis: Yes - GASTROINTESTINAL Hx Gastroesophageal Reflux: Yes - GENITOURINARY/GYNECOLOGICAL Hx Genitourinary Disorders: No - PSYCHIATRIC Hx Psychophysiologic Disorder: Yes Hx Anxiety: Yes Hx Substance Use: No - SURGICAL HISTORY Other/Comment: Right nephrectomy - ANESTHESIA Hx Anesthesia: Yes Hx Anesthesia Reactions: No Hx Malignant Hyperthermia: No Meds Allergies/Adverse Reactions: Allergies Allergy/AdvReac Type Severity Reaction Status Date / Time No Known Allergies Allergy Verified 03/18/17 15:43 - Medications Medications: Current Medications Acetaminophen (Tylenol 325mg Tab) 650 mg PO Q6H PRN PRN Reason: Pain, moderate (4-7) Last Admin: 03/19/17 10:21 Dose: 650 mg Alprazolam (Xanax) 0.25 mg PO BID PRN PRN Reason: Anxiety Stop: 03/26/17 11:02 Amlodipine Besylate (Norvasc) 5 mg PO DAILY [facility] Last Admin: 03/19/17 14:25 Dose: 5 mg Aspirin (Aspirin Chewable) 81 mg PO DAILY [facility] Last Admin: 03/19/17 10:21 Dose: 81 mg Atorvastatin Calcium (Lipitor) 20 mg PO DIN [facility] Donepezil HCl (Aricept) 10 mg PO HS [facility] Ferrous Gluconate (Fergon) 324 mg PO TID [facility] Last Admin: 03/19/17 14:25 Dose: 324 mg Dextrose/Sodium Chloride (Dextrose 5%/0.9% Ns 1000 Ml) 1,000 mls @ 60 mls/hr IV .[id number] [facility] Stop: 03/21/17 15:46 Levalbuterol HCl (Xopenex) 0.63 mg IH [id number] PRN PRN Reason: Shortness of Breath Last Admin: 03/19/17 10:32 Dose: 0.63 mg Metoprolol Succinate (Toprol Xl) 12.5 mg PO BRK [facility] Multivitamins (Thera Tab) 1 tab PO 0800 [facility] Oxycodone/Acetaminophen (Percocet 2.5/325 Mg Tab) 1 tab PO Q6H PRN PRN Reason: Pain, moderate (4-7) Last Admin: 03/19/17 14:25 Dose: 1 tab Pantoprazole Sodium (Protonix Ec Tab) 40 mg PO 0600 [facility] Warfarin Sodium (Coumadin) 3 mg PO 1800 [facility] PRN Reason: Protocol Results - Vital Signs Recent Vital Signs: Last Vital Signs Temp 98.2 F 03/19/17 06:00 Pulse 43 L 03/19/17 14:25 Resp 20 03/19/17 06:00 BP 166/71 H 03/19/17 14:25 Pulse Ox 99 03/19/17 06:00 - Labs Result Diagrams: 03/19/17 10:20 03/18/17 16:54 Labs: Laboratory Results - last 24 hr 03/18/17 03/19/17 18:35 10:20 WBC 5.9 RBC 4.16 Hgb 8.1 L Hct 28.1 L MCV 67.5 L MCH 19.5 L MCHC 28.8 L RDW 20.7 H Plt Count 376 MPV 9.5 Gran % 72.8 H Lymph % (Auto) 19.8 L [place] % (Auto) 6.4 H Eos % (Auto) 0.2 L Baso % (Auto) 0.8 Gran # 4.29 Lymph # 1.2 [place] # 0.4 Eos # 0.0 Baso # 0.05 Blood Type AB POSITIVE Antibody Screen Negative Crossmatch See Detail BBK History Checked Patient has bt
--- NOTE | 2017-03-19 20:41 | CARD ---
APPROVED REPORT EKG Measurement Heart [id number] <Conclusion> Atrial Flutter with complete AV Block Right bundle branch block Left anterior fascicular block Bifascicular block Left ventricular hypertrophy with repolarization abnormality Cannot rule out Septal infarct, age undetermined Abnormal ECG
--- NOTE | 2017-03-19 22:03 | CP.PCM.PN ---
Subjective - Date & Time of Evaluation Date of Evaluation: 03/19/17 Time of Evaluation: 21:55 - Subjective Subjective: Internal Medicine/Infectious Disease Follow Up: March 19, 2017 81 yo AA female presenting with Dyspnea on Exertion. Recently discharged from [facility]. No fevers, chills, nausea, vomiting, or diarrhea. Mental lability the past 2 weeks. I do not feel that the patient is able to care for herself at home. I also am unable to evaluate if the patient is taking her medications properly at home. Given the laboratories, the patient is showing signs of dehydration and malnutrition. Multiple hospital admissions in the past 2 months. Objective - Vital Signs/Intake and Output Vital Signs (last 24 hours): Temp Pulse Resp BP Pulse Ox 98.2 F 44 L 20 158/67 H 99 03/19/17 19:15 03/19/17 19:15 03/19/17 19:15 03/19/17 19:16 03/19/17 17:27 Intake and Output: 03/19/17 03/20/17 18:59 06:59 Intake Total 40 685 Output Total 400 Balance 40 285 - Medications Medications: Current Medications Acetaminophen (Tylenol 325mg Tab) 650 mg PO Q6H PRN PRN Reason: Pain, moderate (4-7) Last Admin: 03/19/17 10:21 Dose: 650 mg Alprazolam (Xanax) 0.25 mg PO BID PRN PRN Reason: Anxiety Stop: 03/26/17 11:02 Amlodipine Besylate (Norvasc) 5 mg PO DAILY [facility] Last Admin: 03/19/17 14:25 Dose: 5 mg Aspirin (Aspirin Chewable) 81 mg PO DAILY [facility] Last Admin: 03/19/17 10:21 Dose: 81 mg Atorvastatin Calcium (Lipitor) 20 mg PO DIN [facility] Last Admin: 03/19/17 18:24 Dose: 20 mg Donepezil HCl (Aricept) 10 mg PO HS [facility] Last Admin: 03/19/17 21:17 Dose: 10 mg Ferrous Gluconate (Fergon) 324 mg PO TID [facility] Last Admin: 03/19/17 19:16 Dose: 324 mg Dextrose/Sodium Chloride (Dextrose 5%/0.9% Ns 1000 Ml) 1,000 mls @ 60 mls/hr IV .[id number] [facility] Stop: 03/21/17 15:46 Last Admin: 03/19/17 18:26 Dose: 60 mls/hr Levalbuterol HCl (Xopenex) 0.63 mg IH [id number] PRN PRN Reason: Shortness of Breath Last Admin: 03/19/17 10:32 Dose: 0.63 mg Multivitamins (Thera Tab) 1 tab PO 0800 [facility] Oxycodone/Acetaminophen (Percocet 2.5/325 Mg Tab) 1 tab PO Q6H PRN PRN Reason: Pain, moderate (4-7) Last Admin: 03/19/17 21:17 Dose: 1 tab Pantoprazole Sodium (Protonix Ec Tab) 40 mg PO 0600 [facility] Warfarin Sodium (Coumadin) 3 mg PO 1800 [facility] PRN Reason: Protocol Last Admin: 03/19/17 18:25 Dose: 3 mg - Labs Labs: 03/19/17 10:20 PT 22.7 SECONDS (9.4-12.5) H 03/18/17 16:54 INR 1.96 (0.93-1.08) H 03/18/17 16:54 - Constitutional Appears: Confused - Head Exam Head Exam: ATRAUMATIC, NORMOCEPHALIC - Eye Exam Eye Exam: EOMI, PERRL Pupil Exam: NORMAL ACCOMODATION, PERRL - ENT Exam ENT Exam: Mucous Membranes Moist, Normal External Ear Exam, TM's Normal Bilaterally - Neck Exam Neck Exam: Full ROM, Normal Inspection - Respiratory Exam Respiratory Exam: Clear to Ausculation Bilateral, NORMAL BREATHING PATTERN. absent: Rales, Rhonchi, Wheezes - Cardiovascular Exam Cardiovascular Exam: REGULAR RHYTHM, RRR, +S1, +S2 - GI/Abdominal Exam GI & Abdominal Exam: Soft, Normal Bowel Sounds. absent: Distended, Tenderness - Extremities Exam Extremities Exam: Full ROM, Normal Inspection - Neurological Exam Neurological Exam: Alert, CN II-XII Intact Additional comments: confusion - Psychiatric Exam Psychiatric exam: Agitated, Depressed - Skin Skin Exam: Intact, Normal Color Assessment and Plan - Assessment and Plan (Free Text) Assessment: 81 yo AA female with complaints of Dyspnea on Exertion. Unclear if the patient takes her medication properly at home. The patient has run off previous home nursing help in the past few months. Recent hospitalizations to [facility] and [facility] [place]. Chronically low heart rate. Periods of confusion. Evaluations by Cardiology, Nephrology, and Psychiatry. Consider Subacute care if patient is a candidate. CHF? Dehydration and malnutrition. The patient appears to have difficulty in caring for herself at home.
--- NOTE | 2017-03-20 04:23 | CON ---
DATE: REASON FOR CONSULTATION: Slow atrial fibrillation. HISTORY OF PRESENT ILLNESS: The patient is an 81-year-old female, who presented to the emergency room because of shortness of breath, which gets worse when she is lying flat. The patient is unaware of any prior cardiac history. The patient is a poor historian, and she does not recall seeing a nursing informatics specialist in the past; however, the patient seems to have multiple prior admissions to the hospital and was seen repeatedly by Dr. Oswald Fonseca, most recently in December this year. At that time, the patient had [id number] elevation myocardial infarction with severe pulmonary hypertension and renal insufficiency and as per Dr. Fonseca because of the patient's comorbidity, the medical management was the preferred one, and the patient denies any chest pain at this time. SOCIAL HISTORY: Nonsmoker. She lives by herself according to her with her nephew nearby. The patient has two sons; one in [place] and one in [place], [place]. MEDICATIONS: Aricept 10 mg q.h.s., aspirin 81 mg once a day, Coumadin 3 mg once a day, Lipitor 20 mg once a day, ferrous gluconate 325 mg b.i.d., Norvasc 5 mg once a day, Percocet one tablet q.6h.p.r.n., Toprol-XL 12.5 mg once a day, and Xopenex inhaler q.6h. p.r.n. REVIEW OF SYSTEMS: No nausea or vomiting. No fever or chills. PHYSICAL EXAMINATION: GENERAL: The patient is an elderly female, who does not appear to be in acute distress. VITAL SIGNS: Blood pressure 153/64, heart rate 46, temperature 98.2, and respirations 20. HEENT: Pale conjunctivae. CHEST: Diffuse bilateral rhonchi. HEART: S1, S2 regular. ABDOMEN: Soft. EXTREMITIES: No edema. LABORATORY DATA: Hemoglobin and hematocrit 8.1 and 28.1. White count and platelet count are within normal limits. Today's SMA-7: Sodium 144, potassium 4.4, chloride 112, CO2 of 17, glucose 100, BUN 34, creatinine 2.4. One set of troponin yesterday 0.05, the troponin in December of last year was 0.22. Digoxin level less than 0.4. INR is 1.96. EKG revealed atrial flutter with atrioventricular rhythm at the age of 38. [address]-T wave changes and prolonged QT interval. The most recent echo was in August of last year and revealed [id number] concentric LVH with normal systolic function and severe pulmonary hypertension. EKG on August was still atrial flutter at the rate of 92 with bifascicular block, i.e., right bundle-branch block with left anterior fascicular block. Chest x-ray revealed mild cardiomegaly and no infiltrate or effusion. Ventilation/perfusion scan in August last year with low probability for PE. Venous Doppler of the lower extremities in August of last year, no evidence of DVT. ASSESSMENT: 1. Chronic atrial flutter. The patient is currently in atrioventricular rhythm. 2. Hypertension. 3. History of coronary artery disease, status post non-ST elevation myocardial infarction in December of last . RECOMMENDATIONS: Discontinue any future beta-blockers. Continue Coumadin 3 mg daily, Lipitor 20 mg once a day, aspirin 81 mg once a day. Obtain TSH level. Percy Poole MD
[2017-03-20] MEDS: Levalbuterol 0.63 MG/3 ML Inhal Soln UD IH PRN (04:45)
[2017-03-20] MEDS ORDERED: Naloxone 0.4 mg/ml Inj (Adult) ONE (05:51)
--- NOTE | 2017-03-20 06:09 | CP.PCM.PN ---
Subjective - Date & Time of Evaluation Date of Evaluation: 03/20/17 Time of Evaluation: 06:02 - Subjective Subjective: Responded to HEAD LIBRARIAN. It was announced because patient was unresponsive . BP:173/59. HR 54/min, T: 98.2*F, RR 18/min, FSBS 182 mg %., monitor shows atrial flutter. Pupils were both pinpoint. Last percocet was given yesterday 9:25 PM. She became somewhat alert after Narcan 0.4 mg IV was given. Patient was given Lasix 40 mg IV . She has questionable facial asymmetry and started to have twitching of Right upper and lower extremities. This 81 year old woman was admitted with mentation changes, weakness. Has PMH of Renal cell cancer/mass, dementia, HLD, CHF, bradycardia, HTN, anxiety , atrial fibrillation. Objective - Vital Signs/Intake and Output Vital Signs (last 24 hours): Temp Pulse Resp BP Pulse Ox 98.8 F 45 L 20 151/74 H 99 03/20/17 00:01 03/20/17 02:00 03/20/17 00:01 03/20/17 00:01 03/19/17 23:14 Intake and Output: 03/19/17 03/20/17 18:59 06:59 Intake Total 40 685 Output Total 400 Balance 40 285 - Medications Medications: Current Medications Acetaminophen (Tylenol 325mg Tab) 650 mg PO Q6H PRN PRN Reason: Pain, moderate (4-7) Last Admin: 03/19/17 10:21 Dose: 650 mg Alprazolam (Xanax) 0.25 mg PO BID PRN PRN Reason: Anxiety Stop: 03/26/17 11:02 Amlodipine Besylate (Norvasc) 5 mg PO DAILY [facility] Last Admin: 03/19/17 14:25 Dose: 5 mg Aspirin (Aspirin Chewable) 81 mg PO DAILY [facility] Last Admin: 03/19/17 10:21 Dose: 81 mg Atorvastatin Calcium (Lipitor) 20 mg PO DIN [facility] Last Admin: 03/19/17 18:24 Dose: 20 mg Donepezil HCl (Aricept) 10 mg PO HS [facility] Last Admin: 03/19/17 21:17 Dose: 10 mg Ferrous Gluconate (Fergon) 324 mg PO TID [facility] Last Admin: 03/19/17 19:16 Dose: 324 mg Dextrose/Sodium Chloride (Dextrose 5%/0.9% Ns 1000 Ml) 1,000 mls @ 60 mls/hr IV .[id number] [facility] Stop: 03/21/17 15:46 Last Admin: 03/19/17 18:26 Dose: 60 mls/hr Levalbuterol HCl (Xopenex) 0.63 mg IH [id number] PRN PRN Reason: Shortness of Breath Last Admin: 03/20/17 04:45 Dose: 0.63 mg Multivitamins (Thera Tab) 1 tab PO 0800 [facility] Oxycodone/Acetaminophen (Percocet 2.5/325 Mg Tab) 1 tab PO Q6H PRN PRN Reason: Pain, moderate (4-7) Last Admin: 03/19/17 21:17 Dose: 1 tab Pantoprazole Sodium (Protonix Ec Tab) 40 mg PO 0600 [facility] Warfarin Sodium (Coumadin) 3 mg PO 1800 [facility] PRN Reason: Protocol Last Admin: 03/19/17 18:25 Dose: 3 mg - Labs Labs: 03/19/17 10:20 PT 22.7 SECONDS (9.4-12.5) H 03/18/17 16:54 INR 1.96 (0.93-1.08) H 03/18/17 16:54 Most Recent Lab Values WBC 5.9 10^3/ul (4.5-11.0) 03/19/17 10:20 RBC 4.16 10^6/uL (3.5-6.1) 03/19/17 10:20 Hgb 8.1 g/dL (12.0-16.0) L 03/19/17 10:20 Hct 28.1 % (36.0-48.0) L 03/19/17 10:20 MCV 67.5 fl (80.0-105.0) L 03/19/17 10:20 MCH 19.5 pg (25.0-35.0) L 03/19/17 10:20 MCHC 28.8 g/dl (31.0-37.0) L 03/19/17 10:20 RDW 20.7 % (11.5-14.5) H 03/19/17 10:20 Plt Count 376 10^3/uL (120.0-450.0) 03/19/17 10:20 MPV 9.5 fl (7.0-11.0) 03/19/17 10:20 Gran % 72.8 % (50.0-68.0) H 03/19/17 10:20 Lymph % (Auto) 19.8 % (22.0-35.0) L 03/19/17 10:20 [place] % (Auto) 6.4 % (1.0-6.0) H 03/19/17 10:20 Eos % (Auto) 0.2 % (1.5-5.0) L 03/19/17 10:20 Baso % (Auto) 0.8 % (0.0-3.0) 03/19/17 10:20 Gran # 4.29 (1.4-6.5) 03/19/17 10:20 Lymph # 1.2 (1.2-3.4) 03/19/17 10:20 [place] # 0.4 (0.1-0.6) 03/19/17 10:20 Eos # 0.0 (0.0-0.7) 03/19/17 10:20 Baso # 0.05 K/mm3 (0.0-2.0) 03/19/17 10:20 PT 22.7 SECONDS (9.4-12.5) H 03/18/17 16:54 INR 1.96 (0.93-1.08) H 03/18/17 16:54 Sodium 144 mmol/L (132-148) 03/18/17 16:54 Potassium 4.4 mmol/L (3.6-5.0) 03/18/17 16:54 Chloride 112 mmol/L (98-107) H 03/18/17 16:54 Carbon Dioxide 17 mmol/L (21-33) L 03/18/17 16:54 Anion Gap 20 (10-20) 03/18/17 16:54 BUN 34 mg/dL (7-21) H 03/18/17 16:54 Creatinine 2.4 mg/dl (0.7-1.2) H 03/18/17 16:54 Est GFR ( Amer) 23 03/18/17 16:54 Est GFR (Non-Af Amer) 19 03/18/17 16:54 Random Glucose 100 mg/dL (70-110) 03/18/17 16:54 Calcium 9.7 mg/dL (8.4-10.5) 03/18/17 16:54 Total Bilirubin 0.4 mg/dL (0.2-1.3) 03/18/17 16:54 AST 36 U/L (14-36) 03/18/17 16:54 ALT 34 U/L (7-56) 03/18/17 16:54 Alkaline Phosphatase 78 U/L (38-126) 03/18/17 16:54 Lactate Dehydrogenase 718 U/L (333-699) H 03/18/17 16:54 Total Creatine Kinase 79 U/L (35-230) 03/18/17 16:54 Troponin I 0.05 ng/mL D 03/18/17 16:54 NT-Pro-B Natriuret Pep 7220 pg/mL (0-450) H 03/18/17 16:54 Total Protein 7.9 g/dL (5.8-8.3) 03/18/17 16:54 Albumin 3.8 g/dL (3.0-4.8) 03/18/17 16:54 Globulin 4.1 gm/dL 03/18/17 16:54 Albumin/Globulin Ratio 0.9 (1.1-1.8) L 03/18/17 16:54 Urine Color Yellow (YELLOW) 03/18/17 17:33 Urine Appearance Clear (CLEAR) 03/18/17 17:33 Urine pH 5.5 (4.7-8.0) 03/18/17 17:33 Ur Specific [place] >= 1.030 (1.005-1.035) 03/18/17 17:33 Urine Protein 100 mg/dL (<30 mg/dL) H 03/18/17 17:33 Urine Glucose (UA) Negative mg/dL (NEGATIVE) 03/18/17 17:33 Urine Ketones Trace mg/dL (NEGATIVE) H 03/18/17 17:33 Urine Blood Negative (NEGATIVE) 03/18/17 17:33 Urine Nitrate Negative (NEGATIVE) 03/18/17 17:33 Urine Bilirubin Negative (NEGATIVE) 03/18/17 17:33 Urine Urobilinogen 0.2 E.U./dL (<1 E.U./dL) 03/18/17 17:33 Ur Leukocyte Esterase Small Chidi/uL (NEGATIVE) H 03/18/17 17:33 Urine RBC 0 - 2 /hpf (0-2) 03/18/17 17:33 Urine WBC 20 - 25 /hpf (0-6) 03/18/17 17:33 Ur Epithelial Cells 1 - 3 /hpf (0-5) 03/18/17 17:33 Urine Bacteria Many (NEG) 03/18/17 17:33 Digoxin < 0.4 ng/mL (0.8-2.0) L 03/18/17 16:54 Blood Type AB POSITIVE 03/18/17 18:35 Antibody Screen Negative 03/18/17 18:35 Crossmatch See Detail 03/18/17 18:35 BBK History Checked Patient has bt 03/18/17 18:35 - Constitutional Appears: Other (Unresponsive.) - Head Exam Head Exam: ATRAUMATIC, NORMAL INSPECTION, NORMOCEPHALIC - Eye Exam Additional comments: Pupils pinpoint bilaterally. - ENT Exam ENT Exam: Normal External Ear Exam - Neck Exam Neck Exam: Normal Inspection - Respiratory Exam Respiratory Exam: NORMAL BREATHING PATTERN Additional comments: Upper respiratory congestion present. - Cardiovascular Exam Cardiovascular Exam: Bradycardia. absent: JVD - GI/Abdominal Exam GI & Abdominal Exam: Normal Bowel Sounds. absent: Distended - Rectal Exam Rectal Exam: Deferred - Exam Additional comments: Deferred. - Extremities Exam Extremities Exam: Normal Inspection. absent: Pedal Edema Additional comments: Momentary twitching of right upper and lower extremities. - Back Exam Back Exam: NORMAL INSPECTION - Neurological Exam Neurological Exam: Altered Neuro motor strength exam: Right Upper Extremity: 0 (Twitching), Right Lower Extremity: 0 (Twitching) Assessment and Plan - Assessment and Plan (Free Text) Assessment: AMS. Facial asymmetry. Twitching. Metabolic acidosis. Dementia. Atrial fibrillation/Flutter. CHF. Bradyarrhythmia. Anemia. Renal insufficiency. HTN. HLD. Anxiety. Plan: Lasix 40 mg IV. Narcan 0.4 mg IV stat. CBC with diff, CMP, troponin, EKG, CXR, ABG, CT head without contrast stat. blood culture, mag, phos, ammonia level. Cefepime 1 GM IV x1. Vancomycin 1 GM IV x 1. [place]. Neuroconsult as per PMD. Attempted to notify . 7./10.3 on 2L/min by nasal canula. Lactic acid level :7.9. CRITICAL CARE TIME SPENT : 45 MINUTES.
[2017-03-20 06:14] LABS: ARTERIAL BLOOD GAS HCO3 10.3 mmol/L (21-28); ARTERIAL BLOOD GAS HEMOGLOBIN 10.1 g/dL (11.7-17.4); ARTERIAL BLOOD GAS O2 CAPACITY 13.8 mL/dl (16-24); ARTERIAL BLOOD GAS O2 CONTENT 13.6 ML/dl (15-23); ARTERIAL BLOOD GAS O2 SAT 98.2 % (95-98); ARTERIAL BLOOD GAS PCO2 24 mm/Hg (35-45); ARTERIAL BLOOD GAS PH 7.24 (7.35-7.45)
[2017-03-20 06:24] LABS: HEMOGLOBIN 10.4 g/dL (12.0-16.0); RBC 4.91 10^6/uL (3.5-6.1); WHITE BLOOD COUNT 13.4 10^3/ul (4.5-11.0)
[2017-03-20 06:26] LABS: GRAN % 66.8 % (50.0-68.0); LYMPH % 23.6 % (22.0-35.0); MEAN CELL VOLUME 67.4 fl (80.0-105.0); MEAN CORPUSCULAR HEMOGLOBIN 21.2 pg (25.0-35.0); MEAN CORPUSCULAR HGB CONC 31.4 g/dl (31.0-37.0); MEAN PLATELET VOLUME 9.8 fl (7.0-11.0); MONO % 8.9 % (1.0-6.0); RED CELL DISTRIBUTION WIDTH 23.7 % (11.5-14.5)
[2017-03-20 06:27] LABS: BASO # 0.04 K/mm3 (0.0-2.0); BASO % 0.3 % (0.0-3.0); EOS # 0.1 (0.0-0.7); EOS % 0.4 % (1.5-5.0); GRAN # 8.96 (1.4-6.5); LYMPH # 3.2 (1.2-3.4); MONO # 1.2 (0.1-0.6)
[2017-03-20 06:33] LABS: IRON 24 ug/dL (45-180)
[2017-03-20] MEDS ORDERED: Sodium Bicarbonate (8.4%) 50 Meq Syringe IVP ONE (06:34)
[2017-03-20] MEDS ORDERED: Cefepime 1gm in NS 100ml 1 GM/100 ML BAG IVPB ONE (06:36)
[2017-03-20 06:38] LABS: ALB/GLOB RATIO 0.9 (1.1-1.8); ALBUMIN 4.1 g/dL (3.0-4.8); ALT/SGPT 58 U/L (7-56); AST/SGOT 74 U/L (14-36); BLOOD UREA NITROGEN 32 mg/dL (7-21); CALCIUM 10.3 mg/dL (8.4-10.5); GFR AFRICAN-AMERICAN 25; GFR NON-AFRICAN AMERICAN 20
[2017-03-20] MEDS ORDERED: Vancomycin 1gm in NS 250ml 1 GM/250 ML BAG IVPB STA (06:38)
[2017-03-20 06:39] LABS: INR 2.7 (0.93-1.08); PROTHROMBIN TIME 31.7 SECONDS (9.4-12.5)
[2017-03-20 06:45] LABS: TOTAL IRON BINDING CAPACITY 468 ug/dL (265-497)
[2017-03-20 06:51] LABS: % IRON SATURATION 5 % (20-55)
--- NOTE | 2017-03-20 07:48 | CP.PCM.CON ---
History of Present Illness - History of Present Illness History of Present Illness: The patient is an 81 year old woman with a history of HTN, paroxysmal atrial fibrillation (on Coumadin), CKD stage III, a history of RCC (s/p nephrectomy), sciatica, hypercholesterolemia, chronic opioid use, and severe pulmonary HTN ( RSVP=81mmHg), who was [place] [facility] [place] on [place] with increased ALVA/SOB.Early this morning around 6am, a rapid response was called after the patient was found to be unresponsive in bed and intermittent twitching of her arms. Stat labs, CXR and CT-head were done which showed increased pulmonary vascular congestion +/- infiltrate, an elevated lactic acid (9.4) and worsening anion gap metabolic acidosis (serum bicarb=15). Currently, the patient is markedly altered and barely withdraws to pain sensation. She continues to exhibit intermittent arm twitching. As a result of the patients sudden unstable state, an ICU evaluation was requested this morning, by the nighttime tv production assistant, Dr. Montanez. Review of Systems - Review of Systems Review of Systems: Unable to assess due to altered mentation of patient Past Patient History - Infectious Disease Hx of Infectious Diseases: None - Tetanus Immunizations Tetanus Immunization: >10 years Ago - Past Medical History & Family History Past Medical History?: Yes - Past Social History Smoking Status: Former Smoker - CARDIAC Hx Cardiac Disorders: Yes Hx Congestive Heart Failure: Yes Hx Hypertension: Yes - PULMONARY Hx Respiratory Disorders: Yes - NEUROLOGICAL HX Cerebrovascular Accident: (pt denies) - HEENT Hx HEENT Problems: Yes (eyeglasses) - RENAL Hx Chronic Kidney Disease: Yes Hx Renal (Kidney) Cancer: (pt denies) Other/Comment: Right nephrectomy 25 or 30 yrs ago as per pt - ENDOCRINE/METABOLIC Hx Endocrine Disorders: No - HEMATOLOGICAL/ONCOLOGICAL Hx Blood Disorders: Yes (blood transfusion) Hx Anemia: Yes Hx Cancer: (pt denies) Other/Comment: pt denies renal cell ca - INTEGUMENTARY Hx Dermatological Problems: No - MUSCULOSKELETAL/RHEUMATOLOGICAL Hx Arthritis: Yes - GASTROINTESTINAL Hx Gastroesophageal Reflux: Yes - GENITOURINARY/GYNECOLOGICAL Hx Genitourinary Disorders: No - PSYCHIATRIC Hx Psychophysiologic Disorder: Yes Hx Anxiety: Yes Hx Substance Use: No - SURGICAL HISTORY Other/Comment: Right nephrectomy - ANESTHESIA Hx Anesthesia: Yes Hx Anesthesia Reactions: No Hx Malignant Hyperthermia: No Meds Allergies/Adverse Reactions: Allergies Allergy/AdvReac Type Severity Reaction Status Date / Time No Known Allergies Allergy Verified 03/18/17 15:43 - Medications Medications: Current Medications Acetaminophen (Tylenol 325mg Tab) 650 mg PO Q6H PRN PRN Reason: Pain, moderate (4-7) Last Admin: 03/19/17 10:21 Dose: 650 mg Alprazolam (Xanax) 0.25 mg PO BID PRN PRN Reason: Anxiety Stop: 03/26/17 11:02 Amlodipine Besylate (Norvasc) 5 mg PO DAILY [facility] Last Admin: 03/19/17 14:25 Dose: 5 mg Aspirin (Aspirin Chewable) 81 mg PO DAILY [facility] Last Admin: 03/19/17 10:21 Dose: 81 mg Atorvastatin Calcium (Lipitor) 20 mg PO DIN [facility] Last Admin: 03/19/17 18:24 Dose: 20 mg Donepezil HCl (Aricept) 10 mg PO HS [facility] Last Admin: 03/19/17 21:17 Dose: 10 mg Ferrous Gluconate (Fergon) 324 mg PO TID [facility] Last Admin: 03/19/17 19:16 Dose: 324 mg Furosemide (Lasix) 20 mg IVP ONCE ONE Stop: 03/20/17 07:38 Dextrose/Sodium Chloride (Dextrose 5%/0.9% Ns 1000 Ml) 1,000 mls @ 60 mls/hr IV .[id number] [facility] Stop: 03/21/17 15:46 Last Admin: 03/19/17 18:26 Dose: 60 mls/hr Vancomycin HCl (Vancomycin 1gm) 1 gm in 250 mls @ 167 mls/hr IVPB STAT STA PRN Reason: Protocol Stop: 03/20/17 08:07 Levalbuterol HCl (Xopenex) 0.63 mg IH [id number] PRN PRN Reason: Shortness of Breath Last Admin: 03/20/17 04:45 Dose: 0.63 mg Lorazepam (Ativan) 2 mg IVP Q4H PRN; Protocol PRN Reason: Seizure activity Multivitamins (Thera Tab) 1 tab PO 0800 [facility] Oxycodone/Acetaminophen (Percocet 2.5/325 Mg Tab) 1 tab PO Q6H PRN PRN Reason: Pain, moderate (4-7) Last Admin: 03/19/17 21:17 Dose: 1 tab Pantoprazole Sodium (Protonix Ec Tab) 40 mg PO 0600 [facility] Warfarin Sodium (Coumadin) 3 mg PO 1800 [facility] PRN Reason: Protocol Last Admin: 03/19/17 18:25 Dose: 3 mg Physical Exam - Constitutional Additional comments: Markedly altered; Barely withdraws to pain sensation; Otherwise A&Ox0; No spontaneous eye opening - Head Exam Head Exam: ATRAUMATIC - Eye Exam Additional comments: Pinpoint pupils bilaterall; Unable to assess EOM due to patient's altered mentation - Neck Exam Neck exam: Positive for: Normal Inspection Additional comments: No signs of meningitis - Respiratory Exam Additional comments: Scattered crackles bilaterally; No accessory muscle use - Cardiovascular Exam Additional comments: Bradycardic; regular rhythm; No JVD - GI/Abdominal Exam GI & Abdominal Exam: Soft - Rectal Exam Rectal Exam: Deferred - Extremities Exam Extremities exam: Positive for: normal inspection - Neurological Exam Additional comments: Unable to assess neuro exam due to patient's altered mental status Results - Vital Signs Recent Vital Signs: Last Vital Signs Temp 98.8 F 03/20/17 00:01 Pulse 45 L 03/20/17 02:00 Resp 20 03/20/17 00:01 BP 173/59 H 03/20/17 05:49 Pulse Ox 99 03/19/17 23:14 - Labs Result Diagrams: 03/20/17 06:15 03/20/17 06:15 Labs: Laboratory Results - last 24 hr 03/18/17 03/19/17 03/20/17 18:35 10:20 05:45 WBC 5.9 RBC 4.16 Hgb 8.1 L Hct 28.1 L MCV 67.5 L MCH 19.5 L MCHC 28.8 L RDW 20.7 H Plt Count 376 MPV 9.5 Gran % 72.8 H Lymph % (Auto) 19.8 L [place] % (Auto) 6.4 H Eos % (Auto) 0.2 L Baso % (Auto) 0.8 Gran # 4.29 Lymph # 1.2 [place] # 0.4 Eos # 0.0 Baso # 0.05 PT INR pCO2 pO2 HCO3 ABG pH ABG Total CO2 ABG O2 Saturation ABG O2 Content ABG Base Excess ABG Hemoglobin ABG Carboxyhemoglobin POC ABG HHb (Measured) ABG Methemoglobin ABG O2 Capacity Hgb O2 Saturation FiO2 Sodium Potassium Chloride Carbon Dioxide Anion Gap BUN Creatinine Est GFR ( Amer) Est GFR (Non-Af Amer) POC Glucose (mg/dL) 183 H Random Glucose Lactic Acid Calcium Iron TIBC % Saturation Total Bilirubin AST ALT Alkaline Phosphatase Ammonia Total Protein Albumin Globulin Albumin/Globulin Ratio TSH 3rd Generation Blood Type AB POSITIVE Antibody Screen Negative Crossmatch See Detail BBK History Checked Patient has bt 03/20/17 03/20/17 03/20/17 06:01 06:15 06:15 WBC RBC Hgb Hct MCV MCH MCHC RDW Plt Count MPV Gran % Lymph % (Auto) [place] % (Auto) Eos % (Auto) Baso % (Auto) Gran # Lymph # [place] # Eos # Baso # PT INR pCO2 24 L pO2 95.0 HCO3 10.3 L ABG pH 7.24 L ABG Total CO2 11.0 L ABG O2 Saturation 98.2 H ABG O2 Content 13.6 L ABG Base Excess -15.5 L ABG Hemoglobin 10.1 L ABG Carboxyhemoglobin 2.3 H POC ABG HHb (Measured) 1.7 ABG Methemoglobin 1.1 ABG O2 Capacity 13.8 L Hgb O2 Saturation 94.9 L FiO2 28.0 Sodium 149 H Potassium 4.7 Chloride 114 H Carbon Dioxide 15 L Anion Gap 26 H BUN 32 H Creatinine 2.3 H Est GFR ( Amer) 25 Est GFR (Non-Af Amer) 20 POC Glucose (mg/dL) Random Glucose 214 H Lactic Acid Calcium 10.3 Iron 24 L TIBC 468 % Saturation 5 L Total Bilirubin 1.0 AST 74 H D ALT 58 H Alkaline Phosphatase 86 Ammonia Total Protein 8.5 H Albumin 4.1 Globulin 4.4 Albumin/Globulin Ratio 0.9 L TSH 3rd Generation Blood Type Antibody Screen Crossmatch BBK History Checked 03/20/17 03/20/17 03/20/17 06:15 06:15 06:15 WBC 13.4 H D RBC 4.91 Hgb 10.4 L D Hct 33.1 L MCV 67.4 L MCH 21.2 L MCHC 31.4 RDW 23.7 H Plt Count 390 MPV 9.8 Gran % 66.8 Lymph % (Auto) 23.6 [place] % (Auto) 8.9 H Eos % (Auto) 0.4 L Baso % (Auto) 0.3 Gran # 8.96 H Lymph # 3.2 [place] # 1.2 H Eos # 0.1 Baso # 0.04 PT 31.7 H INR 2.70 H pCO2 pO2 HCO3 ABG pH ABG Total CO2 ABG O2 Saturation ABG O2 Content ABG Base Excess ABG Hemoglobin ABG Carboxyhemoglobin POC ABG HHb (Measured) ABG Methemoglobin ABG O2 Capacity Hgb O2 Saturation FiO2 Sodium Potassium Chloride Carbon Dioxide Anion Gap BUN Creatinine Est GFR ( Amer) Est GFR (Non-Af Amer) POC Glucose (mg/dL) Random Glucose Lactic Acid 9.4 H* Calcium Iron TIBC % Saturation Total Bilirubin AST ALT Alkaline Phosphatase Ammonia Total Protein Albumin Globulin Albumin/Globulin Ratio TSH 3rd Generation Blood Type Antibody Screen Crossmatch BBK History Checked 03/20/17 03/20/17 06:15 06:15 WBC RBC Hgb Hct MCV MCH MCHC RDW Plt Count MPV Gran % Lymph % (Auto) [place] % (Auto) Eos % (Auto) Baso % (Auto) Gran # Lymph # [place] # Eos # Baso # PT INR pCO2 pO2 HCO3 ABG pH ABG Total CO2 ABG O2 Saturation ABG O2 Content ABG Base Excess ABG Hemoglobin ABG Carboxyhemoglobin POC ABG HHb (Measured) ABG Methemoglobin ABG O2 Capacity Hgb O2 Saturation FiO2 Sodium Potassium Chloride Carbon Dioxide Anion Gap BUN Creatinine Est GFR ( Amer) Est GFR (Non-Af Amer) POC Glucose (mg/dL) Random Glucose Lactic Acid Calcium Iron TIBC % Saturation Total Bilirubin AST ALT Alkaline Phosphatase Ammonia 44 H Total Protein Albumin Globulin Albumin/Globulin Ratio TSH 3rd Generation 1.45 Blood Type Antibody Screen Crossmatch BBK History Checked - Imaging and Cardiology CT scan - head Status: Report reviewed by me Assessment & Plan - Assessment and Plan (Free Text) Plan: A/P: The patient is an 81 year old woman with a history of HTN, paroxysmal atrial fibrillation (on Coumadin), CKD stage III, a history of RCC (s/p nephrectomy), sciatica, hypercholesterolemia, chronic opioid use, and severe pulmonary HTN (RSVP=81mmHg), who will be upgraded to the ICU due to significantly altered mental status, worsening metabolic acidosis and possible sepsis/SIRS due to pneumonia. 1. Altered Metal Status: -DDx: Sepsis vs Seizure (post-ictal) vs Ischemic CVA vs OK -CT-head is negative for acute bleed -neuro checks Q1hour -HOB>30 degrees -seizure and fall precautions -on-call neurologist consulted (Dr. Hassan) -CPK ordered and troponins ordered -PRN IV Ativan for seizure-like activity -Narcan given during rapid response with minimal improvement 2. Sepsis/SIRS: -possibly due to aspiration PNA (during unresponsiveness) -empiric IV antibiotics given during rapid response -procalcitonin ordered -blood and urine cultures ordered during rapid response -defer to primary to consider ID consult 3. Increased Pulmonary Edema: -patient has history of severe pulmonary HTN -IV Lasix x 1 4. Metabolic Acidosis (increased anion gap): -likely multifactorial etiology, due to combination of sepsis, renal failure and seizure -stat IV Bicarb x 1 given during rapid response -nephrology already on board -neurology consulted (as stated above) 5. Paroxysmal Atrial Fibrillation: -continue Coumadin (INR therapeutic) 6. CKD Stage III: -nephrology on board -renally dose all meds -monitor strict I/Os GI PPx: Protonix
--- NOTE | 2017-03-20 07:52 | CT ---
EXAM: CT Head Without Intravenous Contrast CLINICAL HISTORY: 81 years old, female; Signs and symptoms; Altered mental status/memory loss; Additional info: Change in mental status TECHNIQUE: Axial computed tomography images of the head/brain without intravenous contrast. All CT scans at this facility use one or more dose reduction techniques, viz.: automated exposure control; ma/kV adjustment per patient size (including targeted exams where dose is matched to indication; i.e. head); or iterative reconstruction technique. 363 images are submitted. Coronal and sagittal reformatted images were created and reviewed. COMPARISON: CT - HEAD W/O CONTRAST 2016-08-09 19:00 FINDINGS: Brain: Limited evaluation of almeida-white differentiation secondary to motion. Cerebral and cerebellar volume loss. Patchy hypodensity is seen in the periventricular and subcortical white matter. Right frontal encephalomalacia. This is likely due to remote infarct. Bilateral basal ganglia calcifications. No hemorrhage. Ventricles: Unremarkable. No ventriculomegaly. Bones/joints: Unremarkable. No acute fracture. Soft tissues: Unremarkable. Vasculature: Vascular calcifications. Sinuses: Right maxillary sinus and left mid ethmoid air cell mucus retention cyst and/or polyp. Mastoid air cells: Unremarkable. No mastoid effusion. Dental: Edentulous maxilla and mandible. IMPRESSION: No evidence of an acute intracranial hemorrhage, midline shift or mass effect is identified.
[2017-03-20 08:09] LABS: MAGNESIUM 1.8 mg/dL (1.7-2.2)
--- NOTE | 2017-03-20 08:48 | RAD ---
HISTORY: unresposive COMPARISON: 03/18/2017 FINDINGS: LUNGS: Increasing vascular and perihilar congestion. PLEURA: No significant pleural effusion identified, no pneumothorax apparent. CARDIOVASCULAR: Mild cardiomegaly OSSEOUS STRUCTURES: No significant abnormalities. VISUALIZED UPPER ABDOMEN: Normal. OTHER FINDINGS: None. IMPRESSION: Increasing vascular and perihilar congestion
[2017-03-20 09:07] LABS: TROPONIN I 0.16 ng/mL
[2017-03-20] MEDS ORDERED: levETIRAcetam 1,000 MG in Sodium Chloride 0.9% 100 ML IV ONE (09:28)
[2017-03-20] MEDS: Multivitamin Therapeutic Tab PO SCH (09:41)
[2017-03-20] MEDS: Pantoprazole 40 mg EC Tab PO SCH (09:42)
--- NOTE | 2017-03-20 11:05 | CP.PCM.CON ---
History of Present Illness - History of Present Illness History of Present Illness: Neurology Consult for Miss Sarah Baker, 81 yr old woman with pmh of paroxysmal afib, on coumadin, htn, RCC, s/p nephrectomy, chronic opiod use, severe pulmonary htn, who was admitted to [facility] on 01/16/18 with what appears to be worsening pulmonary hypertension. The patient was found to be unresponsive at 6 am, with focal twitching of her right arm, right face and decreased loc. On my history she was able to speak with dysarthria, but had some paraphasic errors, ideamotor and constructional apraxia, and expressive aphasia. Please see dictation for full consult, exam and plan. Past Patient History - Infectious Disease Hx of Infectious Diseases: None - Tetanus Immunizations Tetanus Immunization: >10 years Ago - Past Medical History & Family History Past Medical History?: Yes - Past Social History Smoking Status: Former Smoker - CARDIAC Hx Cardiac Disorders: Yes Hx Congestive Heart Failure: Yes Hx Hypertension: Yes - PULMONARY Hx Respiratory Disorders: Yes - NEUROLOGICAL HX Cerebrovascular Accident: (pt denies) - HEENT Hx HEENT Problems: Yes (eyeglasses) - RENAL Hx Chronic Kidney Disease: Yes Hx Renal (Kidney) Cancer: (pt denies) Other/Comment: Right nephrectomy 25 or 30 yrs ago as per pt - ENDOCRINE/METABOLIC Hx Endocrine Disorders: No - HEMATOLOGICAL/ONCOLOGICAL Hx Blood Disorders: Yes (blood transfusion) Hx Anemia: Yes Hx Cancer: (pt denies) Other/Comment: pt denies renal cell ca - INTEGUMENTARY Hx Dermatological Problems: No - MUSCULOSKELETAL/RHEUMATOLOGICAL Hx Arthritis: Yes - GASTROINTESTINAL Hx Gastroesophageal Reflux: Yes - GENITOURINARY/GYNECOLOGICAL Hx Genitourinary Disorders: No - PSYCHIATRIC Hx Psychophysiologic Disorder: Yes Hx Anxiety: Yes Hx Substance Use: No - SURGICAL HISTORY Other/Comment: Right nephrectomy - ANESTHESIA Hx Anesthesia: Yes Hx Anesthesia Reactions: No Hx Malignant Hyperthermia: No Meds Allergies/Adverse Reactions: Allergies Allergy/AdvReac Type Severity Reaction Status Date / Time No Known Allergies Allergy Verified 03/18/17 15:43 - Medications Medications: Current Medications Acetaminophen (Tylenol 325mg Tab) 650 mg PO Q6H PRN PRN Reason: Pain, moderate (4-7) Last Admin: 03/19/17 10:21 Dose: 650 mg Amlodipine Besylate (Norvasc) 5 mg PO DAILY [facility] Last Admin: 03/20/17 09:42 Dose: Not Given Aspirin (Aspirin Chewable) 81 mg PO DAILY [facility] Last Admin: 03/19/17 10:21 Dose: 81 mg Atorvastatin Calcium (Lipitor) 20 mg PO DIN [facility] Last Admin: 03/19/17 18:24 Dose: 20 mg Donepezil HCl (Aricept) 10 mg PO HS [facility] Last Admin: 03/19/17 21:17 Dose: 10 mg Ferrous Gluconate (Fergon) 324 mg PO TID [facility] Last Admin: 03/20/17 09:41 Dose: 324 mg Dextrose/Sodium Chloride (Dextrose 5%/0.9% Ns 1000 Ml) 1,000 mls @ 60 mls/hr IV .[id number] [facility] Stop: 03/21/17 15:46 Last Admin: 03/19/17 18:26 Dose: 60 mls/hr Levalbuterol HCl (Xopenex) 0.63 mg IH [id number] PRN PRN Reason: Shortness of Breath Last Admin: 03/20/17 04:45 Dose: 0.63 mg Levetiracetam (Keppra) 500 mg PO BID [facility] Last Admin: 03/20/17 10:41 Dose: 500 mg Lorazepam (Ativan) 2 mg IVP Q4H PRN; Protocol PRN Reason: Seizure activity Multivitamins (Thera Tab) 1 tab PO 0800 [facility] Last Admin: 03/20/17 09:41 Dose: 1 tab Oxycodone/Acetaminophen (Percocet 2.5/325 Mg Tab) 1 tab PO Q6H PRN PRN Reason: Pain, moderate (4-7) Last Admin: 03/19/17 21:17 Dose: 1 tab Pantoprazole Sodium (Protonix Ec Tab) 40 mg PO 0600 [facility] Last Admin: 03/20/17 09:42 Dose: 40 mg Warfarin Sodium (Coumadin) 3 mg PO 1800 [facility] PRN Reason: Protocol Last Admin: 03/19/17 18:25 Dose: 3 mg Results - Vital Signs Recent Vital Signs: Last Vital Signs Temp 98.8 F 03/20/17 00:01 Pulse 46 L 03/20/17 10:20 Resp 20 03/20/17 10:20 BP 107/59 L 03/20/17 10:00 Pulse Ox 99 03/20/17 10:20 - Labs Result Diagrams: 03/20/17 06:15 03/20/17 06:15 Labs: Laboratory Results - last 24 hr 03/18/17 03/20/17 03/20/17 18:35 05:45 06:01 WBC RBC Hgb Hct MCV MCH MCHC RDW Plt Count MPV Gran % Lymph % (Auto) [place] % (Auto) Eos % (Auto) Baso % (Auto) Gran # Lymph # [place] # Eos # Baso # PT INR pCO2 24 L pO2 95.0 HCO3 10.3 L ABG pH 7.24 L ABG Total CO2 11.0 L ABG O2 Saturation 98.2 H ABG O2 Content 13.6 L ABG Base Excess -15.5 L ABG Hemoglobin 10.1 L ABG Carboxyhemoglobin 2.3 H POC ABG HHb (Measured) 1.7 ABG Methemoglobin 1.1 ABG O2 Capacity 13.8 L Hgb O2 Saturation 94.9 L FiO2 28.0 Sodium Potassium Chloride Carbon Dioxide Anion Gap BUN Creatinine Est GFR ( Amer) Est GFR (Non-Af Amer) POC Glucose (mg/dL) 183 H Random Glucose Lactic Acid Calcium Phosphorus Magnesium Iron TIBC % Saturation Total Bilirubin AST ALT Alkaline Phosphatase Ammonia Total Creatine Kinase Troponin I Total Protein Albumin Globulin Albumin/Globulin Ratio TSH 3rd Generation Blood Type AB POSITIVE Antibody Screen Negative Crossmatch See Detail BBK History Checked Patient has bt 03/20/17 03/20/17 03/20/17 06:15 06:15 06:15 WBC RBC Hgb Hct MCV MCH MCHC RDW Plt Count MPV Gran % Lymph % (Auto) [place] % (Auto) Eos % (Auto) Baso % (Auto) Gran # Lymph # [place] # Eos # Baso # PT INR pCO2 pO2 HCO3 ABG pH ABG Total CO2 ABG O2 Saturation ABG O2 Content ABG Base Excess ABG Hemoglobin ABG Carboxyhemoglobin POC ABG HHb (Measured) ABG Methemoglobin ABG O2 Capacity Hgb O2 Saturation FiO2 Sodium 149 H Potassium 4.7 Chloride 114 H Carbon Dioxide 15 L Anion Gap 26 H BUN 32 H Creatinine 2.3 H Est GFR ( Amer) 25 Est GFR (Non-Af Amer) 20 POC Glucose (mg/dL) Random Glucose 214 H Lactic Acid 9.4 H* Calcium 10.3 Phosphorus Magnesium Iron 24 L TIBC 468 % Saturation 5 L Total Bilirubin 1.0 AST 74 H D ALT 58 H Alkaline Phosphatase 86 Ammonia Total Creatine Kinase Troponin I Total Protein 8.5 H Albumin 4.1 Globulin 4.4 Albumin/Globulin Ratio 0.9 L [facility] 3rd Generation Blood Type Antibody Screen Crossmatch BBK History Checked 03/20/17 03/20/17 03/20/17 06:15 06:15 06:15 WBC 13.4 H D RBC 4.91 Hgb 10.4 L D Hct 33.1 L MCV 67.4 L MCH 21.2 L MCHC 31.4 RDW 23.7 H Plt Count 390 MPV 9.8 Gran % 66.8 Lymph % (Auto) 23.6 [place] % (Auto) 8.9 H Eos % (Auto) 0.4 L Baso % (Auto) 0.3 Gran # 8.96 H Lymph # 3.2 [place] # 1.2 H Eos # 0.1 Baso # 0.04 PT 31.7 H INR 2.70 H pCO2 pO2 HCO3 ABG pH ABG Total CO2 ABG O2 Saturation ABG O2 Content ABG Base Excess ABG Hemoglobin ABG Carboxyhemoglobin POC ABG HHb (Measured) ABG Methemoglobin ABG O2 Capacity Hgb O2 Saturation FiO2 Sodium Potassium Chloride Carbon Dioxide Anion Gap BUN Creatinine Est GFR ( Amer) Est GFR (Non-Af Amer) POC Glucose (mg/dL) Random Glucose Lactic Acid Calcium Phosphorus Magnesium Iron TIBC % Saturation Total Bilirubin AST ALT Alkaline Phosphatase Ammonia Total Creatine Kinase Troponin I Total Protein Albumin Globulin Albumin/Globulin Ratio [address] 1.45 Blood Type Antibody Screen Crossmatch BBK History Checked 03/20/17 03/20/17 06:15 07:10 WBC RBC Hgb Hct MCV MCH MCHC RDW Plt Count MPV Gran % Lymph % (Auto) [place] % (Auto) Eos % (Auto) Baso % (Auto) Gran # Lymph # [place] # Eos # Baso # PT INR pCO2 pO2 HCO3 ABG pH ABG Total CO2 ABG O2 Saturation ABG O2 Content ABG Base Excess ABG Hemoglobin ABG Carboxyhemoglobin POC ABG HHb (Measured) ABG Methemoglobin ABG O2 Capacity Hgb O2 Saturation FiO2 Sodium Potassium Chloride Carbon Dioxide Anion Gap BUN Creatinine Est GFR ( Amer) Est GFR (Non-Af Amer) POC Glucose (mg/dL) Random Glucose Lactic Acid Calcium Phosphorus 4.1 Magnesium 1.8 Iron TIBC % Saturation Total Bilirubin AST ALT Alkaline Phosphatase Ammonia 44 H Total Creatine Kinase 102 Troponin I 0.16 H* D Total Protein Albumin Globulin Albumin/Globulin Ratio TSH 3rd Generation Blood Type Antibody Screen Crossmatch BBK History Checked Assessment & Plan - Assessment and Plan (Free Text) Assessment: 81 yr old woman with focal seizure, 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 Recommend MRI Brain with contrast, EEG, and load with IV keppra 1000 mg now and 500 mg IV bid until she can tolerate po. Please see dictation
[2017-03-20 11:59] LABS: URINE BILIRUBIN NEGATIVE (NEGATIVE); URINE BLOOD SMALL (NEGATIVE); URINE GLUCOSE (UA) NEGATIVE (NEGATIVE); URINE LEUKOCYTE ESTERASE NEGATIVE Leu/uL (NEGATIVE); URINE NITRATE NEGATIVE (NEGATIVE); URINE PROTEIN TRACE mg/dL (<30 mg/dL); URINE UROBILINOGEN 0.2 E.U./dL (<1 E.U./dL)
[2017-03-20 12:02] LABS: URINE APPEARANCE CLEAR (CLEAR); URINE COLOR YELLOW (YELLOW)
[2017-03-20 12:10] LABS: FERRITIN 32.8 ng/mL
[2017-03-20 12:13] LABS: URINE EPITHELIAL CELLS 0 - 2 /hpf (0-5); URINE WBC 0 - 2 /hpf (0-6)
[2017-03-20 12:41] LABS: FOLATE > 20.0 ng/mL
--- NOTE | 2017-03-20 15:03 | MRI ---
PROCEDURE: MRI BRAIN WITHOUT CONTRAST HISTORY: SEIZURE COMPARISON: MRI 04/10/2016 TECHNIQUE: Multiplanar, multisequence MR images of the brain were obtained without intravenous contrast enhancement. FINDINGS: HEMORRHAGE: None DWI: There is an area of mildly increased signal intensity on diffusion imaging in the left medial parietal lobe image 15 series 3. This probably represents a subacute infarct. This can also be seen on FLAIR image 15. This was not present on the previous study. BRAIN PARENCHYMA: No mass effect or edema. Microvascular ischemic changes are seen bilaterally. There is focal encephalomalacia in the right frontal lobe. VENTRICLES: Unremarkable. No hydrocephalus. CRANIUM: Unremarkable. ORBITS: Grossly unremarkable. PARANASAL SINUSES/MASTOIDS: Clear VASCULAR SYSTEM: Skull base flow voids intact. OTHER FINDINGS: None. IMPRESSION: Probable small subacute infarct in the left medial parietal lobe
--- NOTE | 2017-03-20 15:16 | CARD ---
APPROVED REPORT EXAM: Two-dimensional and M-mode echocardiogram with Doppler and color Doppler. INDICATION Pulmonary Hypertention 2D DIMENSIONS Left Atrium (2D)4.0 (1.6-4.0cm)IVSd1.4 (0.7-1.1cm) Aortic Root (2D)3.0 (2.0-3.7cm)LVDd3.6 (3.9-5.9cm) PWd1.5 (0.7-1.1cm)LVDs1.6 (2.5-4.0cm) FS (%) 56.2 %LVEF (%)87.3 (>50%) M-Mode DIMENSIONS Aortic Cusp Exc.1.70 (1.5-2.0cm) TDI Lateral E' Peak V8.09cm/sMedial E' Peak V4.39cm/s Pulmonary Valve PV Peak [id number]/sPV Peak Grad.7mmHg Tricuspid Valve TR Peak [id number] [id number] Peak Gr.95mmHg [id number] LEFT VENTRICLE The left ventricle is normal size. There is mild to moderate concentric left ventricular hypertrophy. The left ventricular function is normal. The left ventricular ejection fraction is within the normal range. There is normal LV segmental wall motion. RIGHT VENTRICLE The right ventricle is normal size. There is normal right ventricular wall thickness. The right ventricular systolic function is normal. ATRIA The left atrium is borderline dilated. The right atrium is moderately dilated. AORTIC VALVE The aortic valve is moderately thickened. No aortic regurgitation is present. MITRAL VALVE The mitral valve is moderately thickened. Mitral regurgitation is mild to moderate. The mitral regurgitant jet is eccentrically directed. TRICUSPID VALVE There is severe tricuspid regurgitation. There is severe pulmonary hypertension. GREAT VESSELS The aortic root is normal in size. The IVC collapses <50% with inspiration. <Conclusion> The left ventricle is normal size. There is mild to moderate concentric left ventricular hypertrophy. The left ventricular function is normal. The left ventricular ejection fraction is within the normal range. There is normal LV segmental wall motion. Mitral regurgitation is mild to moderate. There is severe tricuspid regurgitation. There is severe pulmonary hypertension.
--- NOTE | 2017-03-20 19:08 | CP.PCM.PN ---
Subjective - Date & Time of Evaluation Date of Evaluation: 03/20/17 Time of Evaluation: 18:15 - Subjective Subjective: Internal Medicine/Infectious Disease Follow Up: March 20, 2017 81 yo AA female presenting with Dyspnea on Exertion. [place] [facility] [place] No fevers, chills, nausea, vomiting, or diarrhea. Mental lability the past 2 weeks. I do not feel that the patient is able to care for herself at home. I also am unable to evaluate if the patient is taking her medications properly at home. Given the laboratories, the patient is showing signs of dehydration and malnutrition. Multiple hospital admissions in the past 2 months. This morning the patient was found unresponsive by nursing staff. Rapid response initiated. The patient was also found to have intermittent arm twitching. Evaluated by House Doctor (Dr. Montanez) and consults to MICU and Neurology requested. As far as patient's opioid use is concerned, she is written for 20 Percocet doses each month. Checking [employer] website in [place] shows no other prescriptions for opioids filled by the patient. She lives alone. Noted Keppra started. Leukocytosis likely secondary to epilepsy episode. 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 The patient is currently arousable. Still with some dysarthria with paraphasic errors, ideamotor and construction apraxia as well as expressive aphasia. The patient is noted to have right facial weakness as well. Objective - Vital Signs/Intake and Output Vital Signs (last 24 hours): Temp Pulse Resp BP Pulse Ox 98.8 F 46 L 20 124/49 L 99 03/20/17 00:01 03/20/17 10:20 03/20/17 10:20 03/20/17 16:15 03/20/17 10:20 Intake and Output: 03/20/17 03/20/17 06:59 18:59 Intake Total 685 Output Total 400 Balance 285 - Medications Medications: Current Medications Acetaminophen (Tylenol 325mg Tab) 650 mg PO Q6H PRN PRN Reason: Pain, moderate (4-7) Last Admin: 03/19/17 10:21 Dose: 650 mg Amlodipine Besylate (Norvasc) 5 mg PO DAILY [facility] Last Admin: 03/20/17 09:42 Dose: Not Given Aspirin (Aspirin Chewable) 81 mg PO DAILY [facility] Last Admin: 03/20/17 09:41 Dose: 81 mg Atorvastatin Calcium (Lipitor) 20 mg PO DIN [facility] Last Admin: 03/20/17 17:17 Dose: 20 mg Donepezil HCl (Aricept) 10 mg PO HS [facility] Last Admin: 03/19/17 21:17 Dose: 10 mg Ferrous Gluconate (Fergon) 324 mg PO TID [facility] Last Admin: 03/20/17 17:17 Dose: 324 mg Furosemide (Lasix) 40 mg IV DAILY [facility] Dextrose/Sodium Chloride (Dextrose 5%/0.9% Ns 1000 Ml) 1,000 mls @ 60 mls/hr IV .[id number] [facility] Stop: 03/21/17 15:46 Last Admin: 03/19/17 18:26 Dose: 60 mls/hr Levalbuterol HCl (Xopenex) 0.63 mg IH [id number] PRN PRN Reason: Shortness of Breath Last Admin: 03/20/17 04:45 Dose: 0.63 mg Levetiracetam (Keppra) 500 mg PO BID [facility] Last Admin: 03/20/17 17:17 Dose: 500 mg Lorazepam (Ativan) 2 mg IVP Q4H PRN; Protocol PRN Reason: Seizure activity Multivitamins (Thera Tab) 1 tab PO 0800 [facility] Last Admin: 03/20/17 09:41 Dose: 1 tab Oxycodone/Acetaminophen (Percocet 2.5/325 Mg Tab) 1 tab PO Q6H PRN PRN Reason: Pain, moderate (4-7) Last Admin: 03/19/17 21:17 Dose: 1 tab Pantoprazole Sodium (Protonix Ec Tab) 40 mg PO 0600 [facility] Last Admin: 03/20/17 09:42 Dose: 40 mg Warfarin Sodium (Coumadin) 3 mg PO 1800 [facility] PRN Reason: Protocol Last Admin: 03/20/17 17:17 Dose: 3 mg - Labs Labs: 03/20/17 06:15 03/20/17 06:15 PT 31.7 SECONDS (9.4-12.5) H 03/20/17 06:15 INR 2.70 (0.93-1.08) H 03/20/17 06:15 - Constitutional Appears: Chronically Ill - Head Exam Additional comments: right facial weakness. - Eye Exam Eye Exam: EOMI, PERRL Pupil Exam: NORMAL ACCOMODATION, PERRL - ENT Exam ENT Exam: Mucous Membranes Moist, Normal External Ear Exam, TM's Normal Bilaterally - Neck Exam Neck Exam: Full ROM, Normal Inspection - Respiratory Exam Respiratory Exam: Clear to Ausculation Bilateral, NORMAL BREATHING PATTERN. absent: Rales, Rhonchi, Wheezes - Cardiovascular Exam Cardiovascular Exam: REGULAR RHYTHM, RRR, +S1, +S2 - GI/Abdominal Exam GI & Abdominal Exam: Soft, Normal Bowel Sounds. absent: Distended, Tenderness - Extremities Exam Extremities Exam: Full ROM, Normal Inspection - Neurological Exam Neurological Exam: Alert, Awake, CN II-XII Intact, Oriented x3 - Psychiatric Exam Psychiatric exam: Normal Affect, Normal Mood - Skin Skin Exam: Intact, Normal Color Assessment and Plan - Assessment and Plan (Free Text) Assessment: 81 yo AA female with complaints of Dyspnea on Exertion. Unclear if the patient takes her medication properly at home. The patient has run off previous home nursing help in the past few months. [place] [facility] [place] [facility] [place] Chronically low heart rate. Periods of confusion. Evaluations by Cardiology Dr. Fonseca, Nephrology Dr. Lemon, and Psychiatry (on hold given recent events). Dehydration and malnutrition. The patient appears to have difficulty in caring for herself at home. This morning the patient found poorly responsive with epilepsy episode. The patient required transfer to MICU and was also seen by Neurology. The patient had leukocytosis which is likely transient to the epilepsy episode. Supportive care. Still awaing Heme/Onc evaluation with Dr. Sanchez. Transferred to MICU. NO need for antibiotics at this time.
--- NOTE | 2017-03-20 20:37 | PN ---
DATE: 03/20/2017 LOCATION: The patient in ICU room 128, bed 2. This progress note is being written on behalf of Dr. Fonseca whom I am covering. REASON FOR CONSULTATION: Slow atrial fibrillation. The patient was admitted with shortness of breath, found to have atrial fibrillation, slow heart rate and troponin were elevated. SUBJECTIVE: The patient is lying flat in bed without chest pain or palpitation. Current breathing symptom is stable. The patient at time is confused. PHYSICAL EXAMINATION: VITAL SIGNS: Blood pressure 107/59, respirations 20, pulse 49. The patient afebrile. HEENT: Head is normocephalic. Eyes, pupils normal. Conjunctivae slightly pale. NECK: JVP low. Carotids equal. THORAX: AP diameter normal. LUNGS: No significant rales. CARDIOVASCULAR: S1 and S2. ABDOMEN: Soft. No tenderness. No organomegaly. Bowel sounds normal. EXTREMITIES: No clubbing. No cyanosis. LABORATORY DATA: WBC 13.4, hemoglobin 10.4, hematocrit 33.1 and platelets 390. Sodium 149, potassium 4.7, BUN 32 and creatinine 2.3. AST 74, ALT 54. Total protein 8.5, albumin 4.1. NT-pro B-natriuretic peptide 7220 on 03/18/2017. Troponin 0.16, second troponin 0.25, another troponin level 0.16 and TSH is 1.45, TSH is normal. MRI of brain, probable small subacute infarction in the left medial parietal lobe. Echo was done today it showed LV ejection fraction around 87%. LV size is normal. [id number] concentric left ventricular hypertrophy. LV systolic function is normal with normal ejection fraction, mitral regurgitation [id number], severe tricuspid regurgitation and severe pulmonary hypertension with RVSP of 105 mmHg. Today's chest x-ray suggestive of congestive changes. DIAGNOSES: Chronic atrial flutter/fibrillation, hypertension, possible non-ST elevation myocardial infarction and congestive changes on x-ray. The patient's prothrombin time today is 31.7 and INR 2.70 which is therapeutic. The patient on aspirin 81 mg daily, Warfarin 3 mg p.o. daily, ferrous gluconate 324 mg p.o. t.i.d., Keppra 500 mg b.i.d. The patient got Lasix 20 mg IV today, we will give another 20 mg IV now and will change 40 mg IV daily, amlodipine 5 mg daily, Xopenex hand nebulizer therapy. Sulema Garcia MD
--- NOTE | 2017-03-20 22:07 | CP.PCM.CON ---
History of Present Illness - History of Present Illness History of Present Illness: 81 year old female with a history of HTN, HL, afib on coumadin, renal cell carcinoma s/p surgery, CKD, admitted with shortness of breath, subacute CVA, possible seizure, with anemia s/p PRBC transfusion. The patient is drowsy and a history is difficult to obtain. Her hgb trish was 7.8 and appears to have received a PRBC transfusion. Her iron stores are low. In the past, she has undergone GI work up with endoscopy which revealed multiple AVMs and gastric ulcer. Past medical history: HTN, HL, afib, renal cell carcinoma s/p surgery Past surgical history: Renal cell carcinoma resection Family history: Denies hematologic and oncologic problems Social history: Denies tobacco, alcohol, and illicit drug use. Allergies: NKA Review of systems: All remaining review of systems including HEENT, cardiovascular, respiratory, gastrointestinal, genitourinary, musculoskeletal, dermatologic, neurologic, and psychiatric are negative unless mentioned in the HPI. Past Patient History - Infectious Disease Hx of Infectious Diseases: None - Tetanus Immunizations Tetanus Immunization: >10 years Ago - Past Medical History & Family History Past Medical History?: Yes - Past Social History Smoking Status: Former Smoker - CARDIAC Hx Cardiac Disorders: Yes Hx Congestive Heart Failure: Yes Hx Hypertension: Yes - PULMONARY Hx Respiratory Disorders: Yes - NEUROLOGICAL HX Cerebrovascular Accident: (pt denies) - HEENT Hx HEENT Problems: Yes (eyeglasses) - RENAL Hx Chronic Kidney Disease: Yes Hx Renal (Kidney) Cancer: (pt denies) Other/Comment: Right nephrectomy 25 or 30 yrs ago as per pt - ENDOCRINE/METABOLIC Hx Endocrine Disorders: No - HEMATOLOGICAL/ONCOLOGICAL Hx Blood Disorders: Yes (blood transfusion) Hx Anemia: Yes Hx Cancer: (pt denies) Other/Comment: pt denies renal cell ca - INTEGUMENTARY Hx Dermatological Problems: No - MUSCULOSKELETAL/RHEUMATOLOGICAL Hx Arthritis: Yes - GASTROINTESTINAL Hx Gastroesophageal Reflux: Yes - GENITOURINARY/GYNECOLOGICAL Hx Genitourinary Disorders: No - PSYCHIATRIC Hx Psychophysiologic Disorder: Yes Hx Anxiety: Yes Hx Substance Use: No - SURGICAL HISTORY Other/Comment: Right nephrectomy - ANESTHESIA Hx Anesthesia: Yes Hx Anesthesia Reactions: No Hx Malignant Hyperthermia: No Meds Allergies/Adverse Reactions: Allergies Allergy/AdvReac Type Severity Reaction Status Date / Time No Known Allergies Allergy Verified 03/18/17 15:43 - Medications Medications: Current Medications Acetaminophen (Tylenol 325mg Tab) 650 mg PO Q6H PRN PRN Reason: Pain, moderate (4-7) Last Admin: 03/19/17 10:21 Dose: 650 mg Amlodipine Besylate (Norvasc) 5 mg PO DAILY [facility] Last Admin: 03/20/17 09:42 Dose: Not Given Aspirin (Aspirin Chewable) 81 mg PO DAILY [facility] Last Admin: 03/20/17 09:41 Dose: 81 mg Atorvastatin Calcium (Lipitor) 20 mg PO DIN [facility] Last Admin: 03/20/17 17:17 Dose: 20 mg Donepezil HCl (Aricept) 10 mg PO HS [facility] Last Admin: 03/19/17 21:17 Dose: 10 mg Ferrous Gluconate (Fergon) 324 mg PO TID [facility] Last Admin: 03/20/17 17:17 Dose: 324 mg Furosemide (Lasix) 40 mg IV DAILY [facility] Dextrose/Sodium Chloride (Dextrose 5%/0.9% Ns 1000 Ml) 1,000 mls @ 60 mls/hr IV .[id number] [facility] Stop: 03/21/17 15:46 Last Admin: 03/19/17 18:26 Dose: 60 mls/hr Levalbuterol HCl (Xopenex) 0.63 mg IH [id number] PRN PRN Reason: Shortness of Breath Last Admin: 03/20/17 04:45 Dose: 0.63 mg Levetiracetam (Keppra) 500 mg PO BID [facility] Last Admin: 03/20/17 17:17 Dose: 500 mg Lorazepam (Ativan) 2 mg IVP Q4H PRN; Protocol PRN Reason: Seizure activity Multivitamins (Thera Tab) 1 tab PO 0800 [facility] Last Admin: 03/20/17 09:41 Dose: 1 tab Oxycodone/Acetaminophen (Percocet 2.5/325 Mg Tab) 1 tab PO Q6H PRN PRN Reason: Pain, moderate (4-7) Last Admin: 03/19/17 21:17 Dose: 1 tab Pantoprazole Sodium (Protonix Ec Tab) 40 mg PO 0600 [facility] Last Admin: 03/20/17 09:42 Dose: 40 mg Warfarin Sodium (Coumadin) 3 mg PO 1800 [facility] PRN Reason: Protocol Last Admin: 03/20/17 17:17 Dose: 3 mg Physical Exam - Head Exam Head Exam: ATRAUMATIC - Eye Exam Eye Exam: Normal appearance - ENT Exam ENT Exam: Mucous Membranes Dry - Respiratory Exam Respiratory Exam: NORMAL BREATHING PATTERN - Cardiovascular Exam Cardiovascular Exam: +S1, +S2 - GI/Abdominal Exam GI & Abdominal Exam: Normal Bowel Sounds - Extremities Exam Extremities exam: Positive for: normal inspection - Neurological Exam Neurological exam: Altered - Psychiatric Exam Psychiatric exam: Depressed - Skin Skin Exam: Warm Results - Vital Signs Recent Vital Signs: Last Vital Signs Temp 98.8 F 03/20/17 00:01 Pulse 48 L 03/20/17 19:10 Resp 39 H 03/20/17 19:10 BP 104/40 L 03/20/17 19:00 Pulse Ox 100 03/20/17 13:30 - Labs Result Diagrams: 03/20/17 06:15 03/20/17 06:15 Labs: Laboratory Results - last 24 hr 03/20/17 03/20/17 03/20/17 05:45 06:01 06:15 WBC RBC Hgb Hct MCV MCH MCHC RDW Plt Count MPV Gran % Lymph % (Auto) [place] % (Auto) Eos % (Auto) Baso % (Auto) Gran # Lymph # [place] # Eos # Baso # PT INR pCO2 24 L pO2 95.0 HCO3 10.3 L ABG pH 7.24 L ABG Total CO2 11.0 L ABG O2 Saturation 98.2 H ABG O2 Content 13.6 L ABG Base Excess -15.5 L ABG Hemoglobin 10.1 L ABG Carboxyhemoglobin 2.3 H POC ABG HHb (Measured) 1.7 ABG Methemoglobin 1.1 ABG O2 Capacity 13.8 L Hgb O2 Saturation 94.9 L FiO2 28.0 Sodium 149 H Potassium 4.7 Chloride 114 H Carbon Dioxide 15 L Anion Gap 26 H BUN 32 H Creatinine 2.3 H Est GFR ( Amer) 25 Est GFR (Non-Af Amer) 20 POC Glucose (mg/dL) 183 H Random Glucose 214 H Lactic Acid Calcium 10.3 Phosphorus Magnesium Iron TIBC % Saturation Ferritin 32.8 Total Bilirubin 1.0 AST 74 H D ALT 58 H Alkaline Phosphatase 86 Ammonia Total Creatine Kinase Troponin I Total Protein 8.5 H Albumin 4.1 Globulin 4.4 Albumin/Globulin Ratio 0.9 L Vitamin B12 718 Folate > 20.0 Procalcitonin TSH 3rd Generation Urine Color Urine Appearance Urine pH Ur Specific [place] Urine Protein Urine Glucose (UA) Urine Ketones Urine Blood Urine Nitrate Urine Bilirubin Urine Urobilinogen Ur Leukocyte Esterase Urine RBC Urine WBC Ur Epithelial Cells 03/20/17 03/20/17 03/20/17 06:15 06:15 06:15 WBC RBC Hgb Hct MCV MCH MCHC RDW Plt Count MPV Gran % Lymph % (Auto) [place] % (Auto) Eos % (Auto) Baso % (Auto) Gran # Lymph # [place] # Eos # Baso # PT 31.7 H INR 2.70 H pCO2 pO2 HCO3 ABG pH ABG Total CO2 ABG O2 Saturation ABG O2 Content ABG Base Excess ABG Hemoglobin ABG Carboxyhemoglobin POC ABG HHb (Measured) ABG Methemoglobin ABG O2 Capacity Hgb O2 Saturation FiO2 Sodium Potassium Chloride Carbon Dioxide Anion Gap BUN Creatinine Est GFR ( Amer) Est GFR (Non-Af Amer) POC Glucose (mg/dL) Random Glucose Lactic Acid 9.4 H* Calcium Phosphorus Magnesium Iron 24 L TIBC 468 % Saturation 5 L Ferritin Total Bilirubin AST ALT Alkaline Phosphatase Ammonia Total Creatine Kinase Troponin I Total Protein Albumin Globulin Albumin/Globulin Ratio Vitamin B12 Folate Procalcitonin TSH 3rd Generation Urine Color Urine Appearance Urine pH Ur Specific [place] Urine Protein Urine Glucose (UA) Urine Ketones Urine Blood Urine Nitrate Urine Bilirubin Urine Urobilinogen Ur Leukocyte Esterase Urine RBC Urine WBC Ur Epithelial Cells 03/20/17 03/20/17 03/20/17 06:15 06:15 06:15 WBC 13.4 H D RBC 4.91 Hgb 10.4 L D Hct 33.1 L MCV 67.4 L MCH 21.2 L MCHC 31.4 RDW 23.7 H Plt Count 390 MPV 9.8 Gran % 66.8 Lymph % (Auto) 23.6 [place] % (Auto) 8.9 H Eos % (Auto) 0.4 L Baso % (Auto) 0.3 Gran # 8.96 H Lymph # 3.2 [place] # 1.2 H Eos # 0.1 Baso # 0.04 PT INR pCO2 pO2 HCO3 ABG pH ABG Total CO2 ABG O2 Saturation ABG O2 Content ABG Base Excess ABG Hemoglobin ABG Carboxyhemoglobin POC ABG HHb (Measured) ABG Methemoglobin ABG O2 Capacity Hgb O2 Saturation FiO2 Sodium Potassium Chloride Carbon Dioxide Anion Gap BUN Creatinine Est GFR ( Amer) Est GFR (Non-Af Amer) POC Glucose (mg/dL) Random Glucose Lactic Acid Calcium Phosphorus Magnesium Iron TIBC % Saturation Ferritin Total Bilirubin AST ALT Alkaline Phosphatase Ammonia 44 H Total Creatine Kinase Troponin I Total Protein Albumin Globulin Albumin/Globulin Ratio Vitamin B12 Folate Procalcitonin TSH 3rd Generation 1.45 Urine Color Urine Appearance Urine pH Ur Specific [place] Urine Protein Urine Glucose (UA) Urine Ketones Urine Blood Urine Nitrate Urine Bilirubin Urine Urobilinogen Ur Leukocyte Esterase Urine RBC Urine WBC Ur Epithelial Cells 03/20/17 03/20/17 03/20/17 06:30 07:10 07:35 WBC RBC Hgb Hct MCV MCH MCHC RDW Plt Count MPV Gran % Lymph % (Auto) [place] % (Auto) Eos % (Auto) Baso % (Auto) Gran # Lymph # [place] # Eos # Baso # PT INR pCO2 pO2 HCO3 ABG pH ABG Total CO2 ABG O2 Saturation ABG O2 Content ABG Base Excess ABG Hemoglobin ABG Carboxyhemoglobin POC ABG HHb (Measured) ABG Methemoglobin ABG O2 Capacity Hgb O2 Saturation FiO2 Sodium Potassium Chloride Carbon Dioxide Anion Gap BUN Creatinine Est GFR ( Amer) Est GFR (Non-Af Amer) POC Glucose (mg/dL) 174 H Random Glucose Lactic Acid Calcium Phosphorus 4.1 Magnesium 1.8 Iron TIBC % Saturation Ferritin Total Bilirubin AST ALT Alkaline Phosphatase Ammonia Total Creatine Kinase 102 Troponin I 0.16 H* D Total Protein Albumin Globulin Albumin/Globulin Ratio Vitamin B12 Folate Procalcitonin 0.16 L TSH 3rd Generation Urine Color Urine Appearance Urine pH Ur Specific [place] Urine Protein Urine Glucose (UA) Urine Ketones Urine Blood Urine Nitrate Urine Bilirubin Urine Urobilinogen Ur Leukocyte Esterase Urine RBC Urine WBC Ur Epithelial Cells 03/20/17 03/20/17 03/20/17 11:22 11:30 11:50 WBC RBC Hgb Hct MCV MCH MCHC RDW Plt Count MPV Gran % Lymph % (Auto) [place] % (Auto) Eos % (Auto) Baso % (Auto) Gran # Lymph # [place] # Eos # Baso # PT INR pCO2 pO2 HCO3 ABG pH ABG Total CO2 ABG O2 Saturation ABG O2 Content ABG Base Excess ABG Hemoglobin ABG Carboxyhemoglobin POC ABG HHb (Measured) ABG Methemoglobin ABG O2 Capacity Hgb O2 Saturation FiO2 Sodium Potassium Chloride Carbon Dioxide Anion Gap BUN Creatinine Est GFR ( Amer) Est GFR (Non-Af Amer) POC Glucose (mg/dL) 83 Random Glucose Lactic Acid Calcium Phosphorus Magnesium Iron TIBC % Saturation Ferritin Total Bilirubin AST ALT Alkaline Phosphatase Ammonia Total Creatine Kinase Troponin I 0.25 H* D Total Protein Albumin Globulin Albumin/Globulin Ratio Vitamin B12 Folate Procalcitonin TSH 3rd Generation Urine Color Yellow Urine Appearance Clear Urine pH 6.0 Ur Specific [place] 1.010 Urine Protein Trace H Urine Glucose (UA) Negative Urine Ketones Negative Urine Blood Small H Urine Nitrate Negative Urine Bilirubin Negative Urine Urobilinogen 0.2 Ur Leukocyte Esterase Negative Urine RBC 1 - 3 Urine WBC 0 - 2 Ur Epithelial Cells 0 - 2 03/20/17 16:29 WBC RBC Hgb Hct MCV MCH MCHC RDW Plt Count MPV Gran % Lymph % (Auto) [place] % (Auto) Eos % (Auto) Baso % (Auto) Gran # Lymph # [place] # Eos # Baso # PT INR pCO2 pO2 HCO3 ABG pH ABG Total CO2 ABG O2 Saturation ABG O2 Content ABG Base Excess ABG Hemoglobin ABG Carboxyhemoglobin POC ABG HHb (Measured) ABG Methemoglobin ABG O2 Capacity Hgb O2 Saturation FiO2 Sodium Potassium Chloride Carbon Dioxide Anion Gap BUN Creatinine Est GFR ( Amer) Est GFR (Non-Af Amer) POC Glucose (mg/dL) 106 Random Glucose Lactic Acid Calcium Phosphorus Magnesium Iron TIBC % Saturation Ferritin Total Bilirubin AST ALT Alkaline Phosphatase Ammonia Total Creatine Kinase Troponin I Total Protein Albumin Globulin Albumin/Globulin Ratio Vitamin B12 Folate Procalcitonin TSH 3rd Generation Urine Color Urine Appearance Urine pH Ur Specific [place] Urine Protein Urine Glucose (UA) Urine Ketones Urine Blood Urine Nitrate Urine Bilirubin Urine Urobilinogen Ur Leukocyte Esterase Urine RBC Urine WBC Ur Epithelial Cells Assessment & Plan (1) Anemia Assessment and Plan: w/u consistent with iron deficiency and anemia of CKD likely occult GI blood loss s/p PRBC transfusion will start Venofer Status: Chronic Priority: Medium (2) Leukocytosis Assessment and Plan: likely reactive Status: Acute (3) Coagulopathy Assessment and Plan: secondary to anticoagulation Thank you for this interesting consult. Status: Acute Priority: Medium
--- NOTE | 2017-03-20 23:33 | CP.PCM.PN ---
Subjective - Date & Time of Evaluation Date of Evaluation: 03/20/17 Time of Evaluation: 13:00 - Subjective Subjective: renal follow up note no events overnight Physical Examination: General Appearance: Comfortable, in no acute respiratory distress Head; Atraumatic, normocephalic ENT: no ulcers no thrush.cers. EYES: Eye muscles and extraocular movement intact. Sclera is anicteric. Neck; supple Lungs: Normal respiratory rate/effort. Breath sounds bilateral equal and clear except occasional crackle left base Heart: Normal rate. s1s2 normal. No rub or gallop. Extremities: no edema. No varicose veins Neurological: Patient is alert, awake and oriented x3 but seems forgetful, sometime trying to make up for it. No other focal deficit. Skin: Warm and dry. Abdomen: Abdomen is soft. Bowel sounds +. Psych: lack insight and has normal affect/mood MSK: no joint tenderness or swelling. A&P: acute Kidney injury with high anion gap acidosis Chronic Kidney Disease Stage 3 (N18.3) with ? proteinuria possibly due to HTN, age related decline, and s/p Rt nephrectomy due to hx of RCC ? 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 Objective - Vital Signs/Intake and Output Vital Signs (last 24 hours): Temp Pulse Resp BP Pulse Ox 98.8 F 48 L 39 H 104/40 L 100 03/20/17 00:01 03/20/17 19:10 03/20/17 19:10 03/20/17 19:00 03/20/17 13:30 Intake and Output: 03/20/17 03/21/17 18:59 06:59 Intake Total 650 Output Total 1950 Balance -1300 - Medications Medications: Current Medications Acetaminophen (Tylenol 325mg Tab) 650 mg PO Q6H PRN PRN Reason: Pain, moderate (4-7) Last Admin: 03/19/17 10:21 Dose: 650 mg Amlodipine Besylate (Norvasc) 5 mg PO DAILY [facility] Last Admin: 03/20/17 09:42 Dose: Not Given Aspirin (Aspirin Chewable) 81 mg PO DAILY [facility] Last Admin: 03/20/17 09:41 Dose: 81 mg Atorvastatin Calcium (Lipitor) 20 mg PO DIN [facility] Last Admin: 03/20/17 17:17 Dose: 20 mg Donepezil HCl (Aricept) 10 mg PO HS [facility] Last Admin: 03/20/17 22:54 Dose: 10 mg Ferrous Gluconate (Fergon) 324 mg PO TID [facility] Last Admin: 03/20/17 17:17 Dose: 324 mg Furosemide (Lasix) 40 mg IV DAILY [facility] Dextrose/Sodium Chloride (Dextrose 5%/0.9% Ns 1000 Ml) 1,000 mls @ 60 mls/hr IV .[id number] [facility] Stop: 03/21/17 15:46 Last Admin: 03/19/17 18:26 Dose: 60 mls/hr Iron Sucrose 200 mg/ Sodium (Chloride) 110 mls @ 110 mls/hr IVPB DAILY [facility] Stop: 03/26/17 10:01 Levalbuterol HCl (Xopenex) 0.63 mg IH [id number] PRN PRN Reason: Shortness of Breath Last Admin: 03/20/17 04:45 Dose: 0.63 mg Levetiracetam (Keppra) 500 mg PO BID [facility] Last Admin: 03/20/17 17:17 Dose: 500 mg Lorazepam (Ativan) 2 mg IVP Q4H PRN; Protocol PRN Reason: Seizure activity Multivitamins (Thera Tab) 1 tab PO 0800 [facility] Last Admin: 03/20/17 09:41 Dose: 1 tab Oxycodone/Acetaminophen (Percocet 2.5/325 Mg Tab) 1 tab PO Q6H PRN PRN Reason: Pain, moderate (4-7) Last Admin: 03/19/17 21:17 Dose: 1 tab Pantoprazole Sodium (Protonix Ec Tab) 40 mg PO 0600 [facility] Last Admin: 03/20/17 09:42 Dose: 40 mg Warfarin Sodium (Coumadin) 3 mg PO 1800 [facility] PRN Reason: Protocol Last Admin: 03/20/17 17:17 Dose: 3 mg - Labs Labs: 03/20/17 06:15 03/20/17 06:15 PT 31.7 SECONDS (9.4-12.5) H 03/20/17 06:15 INR 2.70 (0.93-1.08) H 03/20/17 06:15
--- NOTE | 2017-03-20 23:56 | PN ---
DATE: BINDER AND WRAPPER PACKER NOTE SUBJECTIVE: The patient had MRI to evaluate for possible stroke, it showed probable small subparietal infarct in the left medial parietal lobe. This note is to do the NIH Stroke Scale. Level of consciousness, the patient is alert and keenly responsive, asked and month and age, the patient answered both questions incorrect. She blinks eyes and squeeze hands. The patient is able to do and perform both task, horizontal, extraocular movement is normal. Visual chow are seem to be normal. Facial palsy, normal symmetry. Left arm motor drift, no drift for 10 seconds. Right arm motor drift, no drift for 10 seconds. Left leg motor drift, no drift for 5 seconds and right leg motor drift, no drift for 5 seconds. No ataxia and sensations are normal. No sensory loss. Language and aphasia normal. No aphasia and dysarthria normal. Extension and inattention, no abnormality. The results total of 2, no points for the NIH Stroke Scale. Virgilio Amanda MD
[2017-03-21 06:23] LABS: ALB/GLOB RATIO 0.9 (1.1-1.8); ALBUMIN 3.6 g/dL (3.0-4.8); CALCIUM 9.4 mg/dL (8.4-10.5)
--- NOTE | 2017-03-21 06:36 | CP.PCM.PN ---
Subjective - Date & Time of Evaluation Date of Evaluation: 03/21/17 Time of Evaluation: 06:31 - Subjective Subjective: Ms. Baker was seen and examined at the bedside in ICU. She is alert, oriented to place with confusion to person (Garner) and time (1927). She is able to answer simple questions, but slow. She denies any dizziness, blurred vision, numbness, lightheadedness, nausea, or vomiting.She is able to follow simple commands. She is able to verbalize to staff her needs. The MRI of the brain showed that there is a probable small subacute infarct in the left medial parietal lobe. The patient is on anti-platelet therapy.There was no untoward events overnight. Objective - Vital Signs/Intake and Output Vital Signs (last 24 hours): Temp Pulse Resp BP Pulse Ox 98.7 F 41 L 29 H 135/46 L 100 03/21/17 04:00 03/21/17 06:10 03/21/17 06:10 03/21/17 06:00 03/21/17 06:10 Intake and Output: 03/20/17 03/21/17 18:59 06:59 Intake Total 650 Output Total 1950 Balance -1300 - Medications Medications: Current Medications Acetaminophen (Tylenol 325mg Tab) 650 mg PO Q6H PRN PRN Reason: Pain, moderate (4-7) Last Admin: 03/19/17 10:21 Dose: 650 mg Amlodipine Besylate (Norvasc) 5 mg PO DAILY [facility] Last Admin: 03/20/17 09:42 Dose: Not Given Aspirin (Aspirin Chewable) 81 mg PO DAILY [facility] Last Admin: 03/20/17 09:41 Dose: 81 mg Atorvastatin Calcium (Lipitor) 20 mg PO DIN [facility] Last Admin: 03/20/17 17:17 Dose: 20 mg Donepezil HCl (Aricept) 10 mg PO HS [facility] Last Admin: 03/20/17 22:54 Dose: 10 mg Ferrous Gluconate (Fergon) 324 mg PO TID [facility] Last Admin: 03/20/17 17:17 Dose: 324 mg Furosemide (Lasix) 40 mg IV DAILY [facility] Dextrose/Sodium Chloride (Dextrose 5%/0.9% Ns 1000 Ml) 1,000 mls @ 60 mls/hr IV .[id number] [facility] Stop: 03/21/17 15:46 Last Admin: 03/19/17 18:26 Dose: 60 mls/hr Iron Sucrose 200 mg/ Sodium (Chloride) 110 mls @ 110 mls/hr IVPB DAILY [facility] Stop: 03/26/17 10:01 Levalbuterol HCl (Xopenex) 0.63 mg IH [id number] PRN PRN Reason: Shortness of Breath Last Admin: 03/20/17 04:45 Dose: 0.63 mg Levetiracetam (Keppra) 500 mg PO BID [facility] Last Admin: 03/20/17 17:17 Dose: 500 mg Lorazepam (Ativan) 2 mg IVP Q4H PRN; Protocol PRN Reason: Seizure activity Multivitamins (Thera Tab) 1 tab PO 0800 [facility] Last Admin: 03/20/17 09:41 Dose: 1 tab Oxycodone/Acetaminophen (Percocet 2.5/325 Mg Tab) 1 tab PO Q6H PRN PRN Reason: Pain, moderate (4-7) Last Admin: 03/19/17 21:17 Dose: 1 tab Pantoprazole Sodium (Protonix Ec Tab) 40 mg PO 0600 [facility] Last Admin: 03/20/17 09:42 Dose: 40 mg Warfarin Sodium (Coumadin) 3 mg PO 1800 [facility] PRN Reason: Protocol Last Admin: 03/20/17 17:17 Dose: 3 mg - Labs Labs: 03/20/17 06:15 03/21/17 05:00 PT 31.7 SECONDS (9.4-12.5) H 03/20/17 06:15 INR 2.70 (0.93-1.08) H 03/20/17 06:15 - Constitutional Appears: No Acute Distress - Head Exam Head Exam: NORMAL INSPECTION - Eye Exam Pupil Exam: Miosis Additional comments: sluggish to react - Cardiovascular Exam Cardiovascular Exam: Irregular Rhythm - Neurological Exam Neurological Exam: Alert, Awake Neuro motor strength exam: Left Upper Extremity: 4, Right Upper Extremity: 4, Left Lower Extremity: 4, Right Lower Extremity: 4 Additional comments: She is able to answer questions and follow commands. Sensation remains intact. Assessment and Plan (1) Seizure Assessment & Plan: Case discussed with Dr. Alston, continue all current medical, physical, occupational, and speech therapy. Follows up EEG and echocardiogram. Status: Acute
[2017-03-21] MEDS: Pantoprazole 40 mg EC Tab PO SCH (07:02)
[2017-03-21 08:43] LABS: HDL CHOLESTEROL 36 mg/dL (29-60)
[2017-03-21 09:08] LABS: LDL CHOLESTEROL 38 mg/dL (0-129)
[2017-03-21] MEDS: Multivitamin Therapeutic Tab PO SCH (09:27)
--- NOTE | 2017-03-21 11:22 | PN ---
DATE: 03/21/2017 SERVICE DEPARTMENT MANAGER NOTE SUBJECTIVE: The patient is resting in bed, respond appropriately to the spoken word. She is moving all extremities. No complaints of obvious pain. No nausea or vomiting. No diarrhea. No abdominal pain. No shortness of breath, cough or wheezing. PHYSICAL EXAMINATION: VITAL SIGNS: Her temperature is 98.7, pulse is 42, respirations are 26, and BP is 155/60. SKIN: Warm and dry. HEENT: Head is atraumatic, normocephalic. Eyes are reactive to light. Ears, nose, and throat seemed to be within normal limits. NECK: Supple. No JVD. No thyroid enlargement, no lymph nodes. HEART: Regular rate and rhythm. Normal S1 and S2. LUNGS: Reveal good breath sounds bilaterally. ABDOMEN: Soft. Decreased bowel sounds. GENITALIA AND RECTAL: Deferred. MUSCULOSKELETAL: No joint deformities. EXTREMITIES: Reveal no significant lower extremity edema. NEUROLOGIC: The patient is moving all extremities. He is awake and alert. LABORATORY DATA: As far as laboratories, her white count is 13.4, hemoglobin is 10.4, and hematocrit 33.1 with platelets of 390,000. The patient's sodium is 148, potassium is 3.8, chloride is 107, CO2 of 27 with BUN of 36, creatinine of 2.2, and glucose of 101. The patient's last troponin was 0.25. IMPRESSION: This patient has parietal stroke, but no obvious deficits. She has history of severe pulmonary hypertension, renal insufficiency, atrial fibrillation, dementia, anemia as well as possible seizure disorder, and possible pneumonia. PLAN: We will continue with the CVA protocol and continue with her aspirin and Aricept. The patient is getting Ativan and Coumadin as well. I will continue with the Keppra and Lasix as well as Lipitor. The patient is getting Xopenex and Protonix as well as Tylenol for any temperature. We will continue to treat aggressively along with the other consultants and the primary care doctor. Virgilio Amanda MD
[2017-03-21 12:09] LABS: INR 3.03 (0.93-1.08); PARTIAL THROMBOPLASTIN TIME 40.1 Seconds (25.1-36.5); PROTHROMBIN TIME 35.7 SECONDS (9.4-12.5)
--- NOTE | 2017-03-21 14:04 | PN ---
DATE: 03/21/2017 LOCATION: The patient is in ICU 128, bed 2. This note being dictated on behalf of Dr. Fonseca, who I am covering. REASON FOR CONSULTATION AND FOLLOWUP: Atrial fibrillation, shortness of breath, troponin elevated, anemia. SUBJECTIVE: The patient lying comfortably in bed without chest pain, shortness of breath, or palpation. PHYSICAL EXAMINATION VITAL SIGNS: Blood pressure 132/74, respirations 26, pulse 44. The patient is afebrile. HEENT: Head is normocephalic. Eyes: Pupils normal. Conjunctivae slightly pale. NECK: JVP low. Carotids equal. THORAX: AP diameter normal. LUNGS: Clear. CARDIOVASCULAR: S1, S2. ABDOMEN: Soft. No tenderness. No organomegaly. Bowel sounds normal. EXTREMITIES: No clubbing, no cyanosis. LABORATORY DATA: WBC 13.4, hemoglobin 10.4, hematocrit 33.1, platelets 390. Sodium 148, potassium 3.8, BUN 36, creatinine 2.2. AST 64, ALT 68. Total protein 7.4, albumin 3.6. The patient's hemoglobin on admission was 7.8, hematocrit 27.3. Now it has improved to 10.4 hemoglobin and hematocrit 33.1. Echo showed LV ejection fraction of 87%. LV size normal, [id number] concentric left ventricular hypertrophy, kytw-ce-nbrrftiu mitral regurg, severe tricuspid regurg, and severe pulmonary hypertension with RVSP of 105 mmHg. DIAGNOSES: Chronic atrial fibrillation with slow heart rate, hypertension, possible non-ST elevation myocardial infarction, congestive changes on chest x-ray, anemia. PLAN: We will also add isosorbide mononitrate 30 mg daily to therapy and we will increase Norvasc from 5 mg to 10 mg daily. The patient on aspirin 81 mg daily, warfarin 3 mg p.o. daily, ferous gluconate 324 mg p.o. t.i.d. The patient getting IV iron sucrose therapy, Keppra 500 mg b.i.d., Lasix 40 mg IV daily, atorvastatin 20 mg daily, Protonix 40 daily, Xopenex nebulized therapy. From tomorrow, Dr. Fonseca will see the patient. Sulema Garcia MD
--- NOTE | 2017-03-21 17:44 | CP.PCM.PN ---
Subjective - Date & Time of Evaluation Date of Evaluation: 03/21/17 Time of Evaluation: 11:00 - Subjective Subjective: no events overnight Physical Examination: General Appearance: Comfortable Head; Atraumatic, normocephalic ENT: no ulcers no thrush. EYES: Sclera is anicteric. Neck; supple Lungs: Normal respiratory rate/effort. Breath sounds Heart: Normal rate. s1s2 normal. No rub or gallop. Extremities: no edema. No varicose veins Neurological: Patient is alert, awake and oriented x3 Skin: Warm and dry. Abdomen: Abdomen is soft. Bowel sounds +. Psych: lack insight and has normal affect/mood MSK: no joint tenderness or swelling A&P: acute Kidney injury initially with high anion gap acidosis 2/2 prerenal state AMS Chronic Kidney Disease Stage 3 Anemia chronic, Hypertension controlled (I12.9) secondary hyperparathyroidism severe pulmonary HTN hx of dementia Bradycardia ( A fib with slow ventricular rate) Plan no acute need of renal replacement therapy at this time lytes reviewed anemia monitor Objective - Vital Signs/Intake and Output Vital Signs (last 24 hours): Temp Pulse Resp BP Pulse Ox 98.1 F 47 L 26 H 104/41 L 100 03/21/17 16:00 03/21/17 16:40 03/21/17 15:40 03/21/17 16:00 03/21/17 16:40 Intake and Output: 03/21/17 03/21/17 06:59 18:59 Intake Total 2760 Output Total 2849 Balance -89 - Medications Medications: Current Medications Acetaminophen (Tylenol 325mg Tab) 650 mg PO Q6H PRN PRN Reason: Pain, moderate (4-7) Last Admin: 03/19/17 10:21 Dose: 650 mg Amlodipine Besylate (Norvasc) 10 mg PO DAILY [facility] Last Admin: 03/21/17 10:45 Dose: 10 mg Aspirin (Aspirin Chewable) 81 mg PO DAILY [facility] Last Admin: 03/21/17 09:26 Dose: 81 mg Atorvastatin Calcium (Lipitor) 20 mg PO DIN [facility] Last Admin: 03/21/17 17:37 Dose: 20 mg Donepezil HCl (Aricept) 10 mg PO HS [facility] Last Admin: 03/20/17 22:54 Dose: 10 mg Ferrous Gluconate (Fergon) 324 mg PO TID [facility] Last Admin: 03/21/17 17:37 Dose: 324 mg Furosemide (Lasix) 40 mg IV DAILY [facility] Last Admin: 03/21/17 09:27 Dose: 40 mg Iron Sucrose 200 mg/ Sodium (Chloride) 110 mls @ 110 mls/hr IVPB DAILY [facility] Stop: 03/26/17 10:01 Last Admin: 03/21/17 09:26 Dose: 110 mls/hr Isosorbide Mononitrate (Imdur Er) 30 mg PO DAILY [facility] Last Admin: 03/21/17 17:37 Dose: 30 mg Levalbuterol HCl (Xopenex) 0.63 mg IH [id number] PRN PRN Reason: Shortness of Breath Last Admin: 03/20/17 04:45 Dose: 0.63 mg Levetiracetam (Keppra) 500 mg PO BID [facility] Last Admin: 03/21/17 17:37 Dose: 500 mg Lorazepam (Ativan) 2 mg IVP Q4H PRN; Protocol PRN Reason: Seizure activity Multivitamins (Thera Tab) 1 tab PO 0800 [facility] Last Admin: 03/21/17 09:27 Dose: 1 tab Oxycodone/Acetaminophen (Percocet 2.5/325 Mg Tab) 1 tab PO Q6H PRN PRN Reason: Pain, moderate (4-7) Last Admin: 03/19/17 21:17 Dose: 1 tab Pantoprazole Sodium (Protonix Ec Tab) 40 mg PO 0600 [facility] Last Admin: 03/21/17 07:02 Dose: 40 mg Warfarin Sodium (Coumadin) 3 mg PO 1800 [facility] PRN Reason: Protocol Last Admin: 03/21/17 17:38 Dose: 3 mg - Labs Labs: 03/20/17 06:15 03/21/17 05:00 PT 35.7 SECONDS (9.4-12.5) H 03/21/17 11:40 INR 3.03 (0.93-1.08) H 03/21/17 11:40 APTT 40.1 Seconds (25.1-36.5) H 03/21/17 11:40
--- NOTE | 2017-03-21 18:14 | CP.PCM.PN ---
Subjective - Date & Time of Evaluation Date of Evaluation: 03/21/17 Time of Evaluation: 18:00 - Subjective Subjective: Internal Medicine/Infectious Disease Follow Up: March 21, 2017 81 yo AA female presenting with Dyspnea on Exertion. Recently discharged from [facility] [place]. No fevers, chills, nausea, vomiting, or diarrhea. Mental lability the past 2 weeks. I do not feel that the patient is able to care for herself at home. I also am unable to evaluate if the patient is taking her medications properly at home. Given the laboratories, the patient is showing signs of dehydration and malnutrition. Multiple hospital admissions in the past 2 months. This morning the patient was found unresponsive by nursing staff. Rapid response initiated. The patient was also found to have intermittent arm twitching. Evaluated by House Doctor (Dr. Montanez) and consults to MICU and Neurology requested. As far as patient's opioid use is concerned, she is written for 20 Percocet doses each month. Checking [employer] website in [place] shows no other prescriptions for opioids filled by the patient. She lives alone. Noted Keppra started. Leukocytosis likely secondary to epilepsy episode. 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 The patient is currently arousable. Had some dysarthria with paraphasic errors , ideamotor and construction apraxia as well as expressive aphasia but seems to be resolved today. The patient is noted to have right facial weakness yesterday but this seems to have resolved today as well. Noted all managing consultant notes today. Objective - Vital Signs/Intake and Output Vital Signs (last 24 hours): Temp Pulse Resp BP Pulse Ox 98.1 F 47 L 26 H 104/41 L 100 03/21/17 16:00 03/21/17 16:40 03/21/17 15:40 03/21/17 16:00 03/21/17 16:40 Intake and Output: 03/21/17 03/21/17 06:59 18:59 Intake Total 2760 Output Total 2849 Balance -89 - Medications Medications: Current Medications Acetaminophen (Tylenol 325mg Tab) 650 mg PO Q6H PRN PRN Reason: Pain, moderate (4-7) Last Admin: 03/19/17 10:21 Dose: 650 mg Amlodipine Besylate (Norvasc) 10 mg PO DAILY [facility] Last Admin: 01/14/18 10:45 Dose: 10 mg Aspirin (Aspirin Chewable) 81 mg PO DAILY [facility] Last Admin: 03/21/17 09:26 Dose: 81 mg Atorvastatin Calcium (Lipitor) 20 mg PO DIN [facility] Last Admin: 03/21/17 17:37 Dose: 20 mg Donepezil HCl (Aricept) 10 mg PO HS [facility] Last Admin: 03/20/17 22:54 Dose: 10 mg Ferrous Gluconate (Fergon) 324 mg PO TID [facility] Last Admin: 03/21/17 17:37 Dose: 324 mg Furosemide (Lasix) 40 mg IV DAILY [facility] Last Admin: 03/21/17 09:27 Dose: 40 mg Iron Sucrose 200 mg/ Sodium (Chloride) 110 mls @ 110 mls/hr IVPB DAILY [facility] Stop: 03/26/17 10:01 Last Admin: 03/21/17 09:26 Dose: 110 mls/hr Isosorbide Mononitrate (Imdur Er) 30 mg PO DAILY [facility] Last Admin: 03/21/17 17:37 Dose: 30 mg Levalbuterol HCl (Xopenex) 0.63 mg IH [id number] PRN PRN Reason: Shortness of Breath Last Admin: 03/20/17 04:45 Dose: 0.63 mg Levetiracetam (Keppra) 500 mg PO BID [facility] Last Admin: 03/21/17 17:37 Dose: 500 mg Lorazepam (Ativan) 2 mg IVP Q4H PRN; Protocol PRN Reason: Seizure activity Multivitamins (Thera Tab) 1 tab PO 0800 [facility] Last Admin: 03/21/17 09:27 Dose: 1 tab Oxycodone/Acetaminophen (Percocet 2.5/325 Mg Tab) 1 tab PO Q6H PRN PRN Reason: Pain, moderate (4-7) Last Admin: 03/19/17 21:17 Dose: 1 tab Pantoprazole Sodium (Protonix Ec Tab) 40 mg PO 0600 [facility] Last Admin: 03/21/17 07:02 Dose: 40 mg Warfarin Sodium (Coumadin) 3 mg PO 1800 [facility] PRN Reason: Protocol Last Admin: 03/21/17 17:38 Dose: 3 mg - Labs Labs: 03/20/17 06:15 03/21/17 05:00 PT 35.7 SECONDS (9.4-12.5) H 03/21/17 11:40 INR 3.03 (0.93-1.08) H 03/21/17 11:40 APTT 40.1 Seconds (25.1-36.5) H 03/21/17 11:40 - Constitutional Appears: No Acute Distress, Chronically Ill - Head Exam Head Exam: ATRAUMATIC, NORMOCEPHALIC - Eye Exam Eye Exam: EOMI, PERRL Pupil Exam: NORMAL ACCOMODATION, PERRL - ENT Exam ENT Exam: Mucous Membranes Moist, Normal External Ear Exam, TM's Normal Bilaterally - Neck Exam Neck Exam: Full ROM, Normal Inspection - Respiratory Exam Respiratory Exam: Clear to Ausculation Bilateral, NORMAL BREATHING PATTERN. absent: Rales, Rhonchi, Wheezes - Cardiovascular Exam Cardiovascular Exam: REGULAR RHYTHM, RRR, +S1, +S2 - GI/Abdominal Exam GI & Abdominal Exam: Soft, Normal Bowel Sounds. absent: Distended, Tenderness - Extremities Exam Extremities Exam: Full ROM, Normal Inspection - Neurological Exam Neurological Exam: Alert, Awake, CN II-XII Intact, Oriented x3 - Psychiatric Exam Psychiatric exam: Normal Affect, Normal Mood - Skin Skin Exam: Intact, Normal Color Assessment and Plan - Assessment and Plan (Free Text) Assessment: 81 yo AA female with complaints of Dyspnea on Exertion. Unclear if the patient takes her medication properly at home. The patient has run off previous home nursing help in the past few months. Recent hospitalizations to [facility] [place] [facility] [place] [facility] [place] Chronically low heart rate. Periods of confusion. Evaluations by Cardiology Dr. Fonseca, Nephrology Dr. Lemon, and Psychiatry (on hold given recent events). Dehydration and malnutrition. The patient appears to have difficulty in caring for herself at home. This morning the patient found poorly responsive with epilepsy episode. The patient required transfer to MICU and was also seen by Neurology. The patient had leukocytosis which is likely transient to the epilepsy episode. Supportive care. Seen by Dr. Sanchez. Neurologic sequela appears to have improved from yesterday. Evaluation for seizures in progress. Recheck CBC and CMP in AM. Noted adjustment to medications. Transferred to MICU.
--- NOTE | 2017-03-21 19:57 | CP.PCM.PN ---
Subjective - Date & Time of Evaluation Date of Evaluation: 03/21/17 Time of Evaluation: 18:00 - Subjective Subjective: More alert today Objective - Vital Signs/Intake and Output Vital Signs (last 24 hours): Temp Pulse Resp BP Pulse Ox 98.1 F 45 L 28 H 105/42 L 92 L 03/21/17 16:00 03/21/17 18:50 03/21/17 18:50 03/21/17 18:00 03/21/17 18:50 Intake and Output: 03/21/17 03/22/17 18:59 06:59 Intake Total 1060 Output Total 450 Balance 610 - Medications Medications: Current Medications Acetaminophen (Tylenol 325mg Tab) 650 mg PO Q6H PRN PRN Reason: Pain, moderate (4-7) Last Admin: 03/19/17 10:21 Dose: 650 mg Amlodipine Besylate (Norvasc) 10 mg PO DAILY [facility] Last Admin: 03/21/17 10:45 Dose: 10 mg Aspirin (Aspirin Chewable) 81 mg PO DAILY [facility] Last Admin: 03/21/17 09:26 Dose: 81 mg Atorvastatin Calcium (Lipitor) 20 mg PO DIN [facility] Last Admin: 03/21/17 17:37 Dose: 20 mg Donepezil HCl (Aricept) 10 mg PO HS [facility] Last Admin: 03/20/17 22:54 Dose: 10 mg Ferrous Gluconate (Fergon) 324 mg PO TID [facility] Last Admin: 03/21/17 17:37 Dose: 324 mg Furosemide (Lasix) 40 mg IV DAILY [facility] Last Admin: 03/21/17 09:27 Dose: 40 mg Iron Sucrose 200 mg/ Sodium (Chloride) 110 mls @ 110 mls/hr IVPB DAILY [facility] Stop: 03/26/17 10:01 Last Admin: 03/21/17 09:26 Dose: 110 mls/hr Isosorbide Mononitrate (Imdur Er) 30 mg PO DAILY [facility] Last Admin: 03/21/17 17:37 Dose: 30 mg Levalbuterol HCl (Xopenex) 0.63 mg IH [id number] PRN PRN Reason: Shortness of Breath Last Admin: 03/20/17 04:45 Dose: 0.63 mg Levetiracetam (Keppra) 500 mg PO BID [facility] Last Admin: 03/21/17 17:37 Dose: 500 mg Lorazepam (Ativan) 2 mg IVP Q4H PRN; Protocol PRN Reason: Seizure activity Multivitamins (Thera Tab) 1 tab PO 0800 [facility] Last Admin: 03/21/17 09:27 Dose: 1 tab Oxycodone/Acetaminophen (Percocet 2.5/325 Mg Tab) 1 tab PO Q6H PRN PRN Reason: Pain, moderate (4-7) Last Admin: 03/19/17 21:17 Dose: 1 tab Pantoprazole Sodium (Protonix Ec Tab) 40 mg PO 0600 [facility] Last Admin: 03/21/17 07:02 Dose: 40 mg Warfarin Sodium (Coumadin) 3 mg PO 1800 [facility] PRN Reason: Protocol Last Admin: 03/21/17 17:38 Dose: 3 mg - Labs Labs: 03/20/17 06:15 03/21/17 05:00 PT 35.7 SECONDS (9.4-12.5) H 03/21/17 11:40 INR 3.03 (0.93-1.08) H 03/21/17 11:40 APTT 40.1 Seconds (25.1-36.5) H 03/21/17 11:40 - Head Exam Head Exam: ATRAUMATIC - Eye Exam Eye Exam: Normal appearance - ENT Exam ENT Exam: Mucous Membranes Dry - Respiratory Exam Respiratory Exam: NORMAL BREATHING PATTERN - Cardiovascular Exam Cardiovascular Exam: +S1, +S2 - GI/Abdominal Exam GI & Abdominal Exam: Normal Bowel Sounds - Extremities Exam Extremities Exam: Normal Inspection - Skin Skin Exam: Warm Assessment and Plan (1) Anemia Assessment & Plan: iron deficiency s/p PRBC transfusion on IV iron Status: Chronic (2) Leukocytosis Status: Acute (3) Coagulopathy Status: Acute
[2017-03-22] MEDS: Oxycodone/Acetaminophen 2.5/325 mg Tab PO PRN (02:31)
--- NOTE | 2017-03-22 06:37 | CP.PCM.PN ---
Subjective - Date & Time of Evaluation Date of Evaluation: 03/22/17 Time of Evaluation: 06:36 - Subjective Subjective: Ms. Baker was seen and examined at the bedside in ICU. She is alert, oriented with episode of confusion person (Garner), and time (1949), but knows the month March. She denies any headache, dizziness, lightheadedness, blurred vision, nausea, or vomiting. She is able to follow simple commands. Her heart rate remains below 40 but denies any chest pain or shortness of breath. She has SCD' s on. There was no untoward events overnight. Objective - Vital Signs/Intake and Output Vital Signs (last 24 hours): Temp Pulse Resp BP Pulse Ox 98.8 F 38 L 24 111/42 L 98 03/22/17 00:00 03/22/17 06:00 03/22/17 06:00 03/22/17 06:00 03/22/17 06:00 Intake and Output: 03/21/17 03/22/17 18:59 06:59 Intake Total 1060 400 Output Total 450 300 Balance 610 100 - Medications Medications: Current Medications Acetaminophen (Tylenol 325mg Tab) 650 mg PO Q6H PRN PRN Reason: Pain, moderate (4-7) Last Admin: 03/19/17 10:21 Dose: 650 mg Amlodipine Besylate (Norvasc) 10 mg PO DAILY [facility] Last Admin: 03/21/17 10:45 Dose: 10 mg Aspirin (Aspirin Chewable) 81 mg PO DAILY [facility] Last Admin: 03/21/17 09:26 Dose: 81 mg Atorvastatin Calcium (Lipitor) 20 mg PO DIN [facility] Last Admin: 03/21/17 17:37 Dose: 20 mg Donepezil HCl (Aricept) 10 mg PO HS [facility] Last Admin: 03/21/17 21:50 Dose: 10 mg Ferrous Gluconate (Fergon) 324 mg PO TID [facility] Last Admin: 03/21/17 17:37 Dose: 324 mg Furosemide (Lasix) 40 mg IV DAILY [facility] Last Admin: 03/21/17 09:27 Dose: 40 mg Iron Sucrose 200 mg/ Sodium (Chloride) 110 mls @ 110 mls/hr IVPB DAILY [facility] Stop: 03/26/17 10:01 Last Admin: 03/21/17 09:26 Dose: 110 mls/hr Isosorbide Mononitrate (Imdur Er) 30 mg PO DAILY [facility] Last Admin: 03/21/17 17:37 Dose: 30 mg Levalbuterol HCl (Xopenex) 0.63 mg IH [id number] PRN PRN Reason: Shortness of Breath Last Admin: 03/20/17 04:45 Dose: 0.63 mg Levetiracetam (Keppra) 500 mg PO BID [facility] Last Admin: 03/21/17 17:37 Dose: 500 mg Lorazepam (Ativan) 2 mg IVP Q4H PRN; Protocol PRN Reason: Seizure activity Multivitamins (Thera Tab) 1 tab PO 0800 [facility] Last Admin: 03/21/17 09:27 Dose: 1 tab Oxycodone/Acetaminophen (Percocet 2.5/325 Mg Tab) 1 tab PO Q6H PRN PRN Reason: Pain, moderate (4-7) Last Admin: 03/22/17 02:31 Dose: 1 tab Pantoprazole Sodium (Protonix Ec Tab) 40 mg PO 0600 [facility] Last Admin: 03/21/17 07:02 Dose: 40 mg Warfarin Sodium (Coumadin) 3 mg PO 1800 [facility] PRN Reason: Protocol Last Admin: 03/21/17 17:38 Dose: 3 mg - Labs Labs: 03/20/17 06:15 03/21/17 05:00 PT 35.7 SECONDS (9.4-12.5) H 03/21/17 11:40 INR 3.03 (0.93-1.08) H 03/21/17 11:40 APTT 40.1 Seconds (25.1-36.5) H 03/21/17 11:40 - Constitutional Appears: No Acute Distress - Head Exam Head Exam: NORMAL INSPECTION - Neurological Exam Neurological Exam: Alert, Awake Neuro motor strength exam: Left Upper Extremity: 4, Right Upper Extremity: 4, Left Lower Extremity: 4, Right Lower Extremity: 4 Additional comments: Neurological unchanged from previous examination. Assessment and Plan (1) Seizure Assessment & Plan: Case discussed with Dr. Alston, continue all current medical regimen. Pending EEG and echocardiogram. With the result of MRI, patient is on anti-platelet therapy and statin. Status: Acute
[2017-03-22] MEDS: Pantoprazole 40 mg EC Tab PO SCH (07:26)
[2017-03-22] MEDS: Multivitamin Therapeutic Tab PO SCH (07:26)
[2017-03-22 07:40] LABS: ALB/GLOB RATIO 0.9 (1.1-1.8); ALBUMIN 3.2 g/dL (3.0-4.8); CALCIUM 9.2 mg/dL (8.4-10.5)
[2017-03-22 07:58] LABS: INR 2.85 (0.93-1.08); PROTHROMBIN TIME 33.5 SECONDS (9.4-12.5)
[2017-03-22 08:05] LABS: BASO # 0.01 K/mm3 (0.0-2.0); BASO % 0.1 % (0.0-3.0); EOS # 0.3 (0.0-0.7); EOS % 3.2 % (1.5-5.0); GRAN # 5.5 (1.4-6.5); HEMOGLOBIN 8.8 g/dL (12.0-16.0); LYMPH % 22.7 % (22.0-35.0); MEAN CELL VOLUME 67.9 fl (80.0-105.0); MEAN CORPUSCULAR HEMOGLOBIN 20.9 pg (25.0-35.0); MEAN CORPUSCULAR HGB CONC 30.8 g/dl (31.0-37.0); MEAN PLATELET VOLUME 10.8 fl (7.0-11.0); RBC 4.21 10^6/uL (3.5-6.1); RED CELL DISTRIBUTION WIDTH 24.7 % (11.5-14.5); WHITE BLOOD COUNT 8.7 10^3/ul (4.5-11.0)
--- NOTE | 2017-03-22 09:23 | PN ---
DATE: 03/20/2017 CUSTOMER GREETER NOTE SUBJECTIVE: The patient is resting in bed with O2 via nasal cannula, in no respiratory distress, but continues to be unresponsive. The patient was moved to deep pain stimuli, but that is all the response we get. The patient had a rapid response this morning and was transferred to the Intensive Care Unit. CT scan of the head has been done and no acute abnormalities. The patient has no obvious fever or chills. It is noted that she does have severe metabolic acidosis, possible seizure this morning and there may have been a component of aspiration with pneumonia. At this time, she is hemodynamically stable on oxygen. Neurology has been consulted. PHYSICAL EXAMINATION: VITAL SIGNS: Note that her temperature is 98.8, her pulse is 51, respirations are 20, and BP is 136/53. SKIN: Warm and dry. HEENT: Head atraumatic, normocephalic. Eyes, they are fairly pinpoint bilaterally. Ears, nose, and throat seemed to be within normal limits. NECK: Supple. No JVD. No thyroid enlargement, no lymph nodes. HEART: Regular rate and rhythm. Normal S1 and S2. LUNGS: Reveal good breath sounds bilaterally. ABDOMEN: Soft. Decreased bowel sounds. GENITALIA AND RECTAL: Deferred. MUSCULOSKELETAL: No joint deformities. EXTREMITIES: Reveal no significant edema. NEUROLOGIC: The patient is unresponsive, only fairly responsive to deep pain stimuli. LABORATORY DATA: As far as her laboratories are concerned, the patient's white count is 13.4, hemoglobin is 10.4, and hematocrit is 33.1 with platelets of 390,000. Arterial blood gas reveals pH of 7.24, pCO2 of 24, and pO2 of 95. The patient's sodium is 149, potassium is 4.7, chloride is 114, CO2 of 15 with anion gap of 26, which is high, BUN of 32, creatinine of 2.3, and her lactate is 9.4 with glucose of 214. Chest x-ray reveals no obvious infiltrates, this is unofficial reading. IMPRESSION: The patient is unresponsive, etiology unclear. There may have been a seizure. This morning, the patient was given Atrovent. The patient initially presented with shortness of breath, considered to have pulmonary edema, we must rule out pneumonia and aspiration. At this time, the patient does have severe metabolic acidosis. She has a history of pulmonary hypertension and renal disease as well as atrial fibrillation, dementia, and opioid use. The patient also has a history of congestive heart failure and anemia. PLAN: We will continue to monitor the patient closely. Neurology has been consulted and we will follow his advice. The patient is on Aricept as well as the aspirin. She will continue with her Coumadin and is getting IV fluids. She is on Lipitor and Protonix and continues to get her blood pressure medication. The patient is getting bronchodilators of Xopenex. We will continue to treat aggressively along with the other consultants and primary care doctor. Virgilio Amanda MD
[2017-03-22] MEDS ORDERED: Phytonadione 10 MG in Sodium Chloride 0.9% 50 ML IV ONE (10:09)
--- NOTE | 2017-03-22 10:12 | CARD ---
APPROVED REPORT EKG Measurement Heart [id number] P260 [id number] <Conclusion> A. Flutter Probable limb lead reversal STTW changes
[2017-03-22] MEDS: POLYETHYLENE GLYCOL 3350 17 GM/Dose PACKET PO SCH ×2 (10:38→17:48)
--- NOTE | 2017-03-22 10:42 | PN ---
DATE: 03/22/2017 CARDIOLOGY FOLLOWUP SUBJECTIVE: The patient presents with shortness of breath and noted to have a heart rate that is down to the 30s. There is intermittent dizziness. PHYSICAL EXAMINATION: GENERAL: The patient is in no acute distress. VITAL SIGNS: Blood pressure is 119/52, the heart rate is 38. NECK: Negative JVD. LUNGS: Without rales. HEART: With S1, S2. EXTREMITIES: Without edema. LABORATORIES: INR is 2.85. Chemistries: BUN and creatinine are 53 and 3.0 with a hemoglobin of 8.8. IMPRESSION: 1. Baseline atrial fibrillation with marked gin escape with marked bradycardia. 2. Severe pulmonary hypertension. 3. Normal left ventricular function. 4. Intermittent dizziness. Given these findings, we will reverse her Coumadin today with vitamin K. The patient will need a pacemaker. Her dyspnea is likely due to her severe pulmonary hypertension. The pacemaker will hopefully avoid periods of syncope as well as perhaps help for dizziness. Oswald Fonseca MD
--- NOTE | 2017-03-22 10:50 | CP.PCM.PN ---
<Lola Miranda - Last Filed: 03/22/17 10:40> Subjective - Date & Time of Evaluation Date of Evaluation: 03/22/17 Time of Evaluation: 10:40 - Subjective Subjective: ICU Progress Note for Ivette Wells PGY2 Patient seen and examined at bedside. As per nursing staff, there were no acute overnight events. Patient reports feeling well today. She denies chest pain, shortness of breath, nausea/vomiting/diarrhea, numbness/tingling, fever or chills. She does complain of constipation. Patient is A&O x2 which is baseline. Objective - Vital Signs/Intake and Output Vital Signs (last 24 hours): Temp Pulse Resp BP Pulse Ox 98.8 F 36 L 14 119/52 L 100 03/22/17 00:00 03/22/17 08:00 03/22/17 08:00 03/22/17 09:50 03/22/17 08:00 Intake and Output: 03/22/17 03/22/17 06:59 18:59 Intake Total 400 Output Total 300 Balance 100 - Medications Medications: Current Medications Acetaminophen (Tylenol 325mg Tab) 650 mg PO Q6H PRN PRN Reason: Pain, moderate (4-7) Last Admin: 03/19/17 10:21 Dose: 650 mg Amlodipine Besylate (Norvasc) 10 mg PO DAILY [facility] Last Admin: 03/22/17 09:50 Dose: 10 mg Aspirin (Aspirin Chewable) 81 mg PO DAILY [facility] Last Admin: 03/22/17 09:48 Dose: 81 mg Atorvastatin Calcium (Lipitor) 20 mg PO DIN [facility] Last Admin: 03/21/17 17:37 Dose: 20 mg Docusate Sodium (Colace) 100 mg PO DAILY [facility] Donepezil HCl (Aricept) 10 mg PO HS [facility] Last Admin: 03/21/17 21:50 Dose: 10 mg Ferrous Gluconate (Fergon) 324 mg PO TID [facility] Last Admin: 03/21/17 17:37 Dose: 324 mg Furosemide (Lasix) 40 mg IV DAILY [facility] Last Admin: 03/22/17 09:48 Dose: 40 mg Isosorbide Mononitrate (Imdur Er) 30 mg PO DAILY [facility] Last Admin: 03/22/17 09:48 Dose: Not Given Levalbuterol HCl (Xopenex) 0.63 mg IH [id number] PRN PRN Reason: Shortness of Breath Last Admin: 03/20/17 04:45 Dose: 0.63 mg Levetiracetam (Keppra) 500 mg PO BID [facility] Last Admin: 03/22/17 09:48 Dose: 500 mg Lorazepam (Ativan) 2 mg IVP Q4H PRN; Protocol PRN Reason: Seizure activity Multivitamins (Thera Tab) 1 tab PO 0800 [facility] Last Admin: 03/22/17 07:26 Dose: 1 tab Oxycodone/Acetaminophen (Percocet 2.5/325 Mg Tab) 1 tab PO Q6H PRN PRN Reason: Pain, moderate (4-7) Last Admin: 03/22/17 02:31 Dose: 1 tab Pantoprazole Sodium (Protonix Ec Tab) 40 mg PO 0600 [facility] Last Admin: 03/22/17 07:26 Dose: 40 mg Polyethylene Glycol (Miralax) 17 gm PO BID [facility] Warfarin Sodium (Coumadin) 3 mg PO 1800 [facility] PRN Reason: Protocol Last Admin: 03/21/17 17:38 Dose: 3 mg - Labs Labs: 03/22/17 05:48 03/22/17 05:48 PT 33.5 SECONDS (9.4-12.5) H 03/22/17 07:30 INR 2.85 (0.93-1.08) H 03/22/17 07:30 APTT 40.1 Seconds (25.1-36.5) H 03/21/17 11:40 - Constitutional Appears: No Acute Distress - Head Exam Head Exam: ATRAUMATIC, NORMAL INSPECTION, NORMOCEPHALIC - Eye Exam Eye Exam: Normal appearance, PERRL Pupil Exam: NORMAL ACCOMODATION, PERRL - ENT Exam ENT Exam: Mucous Membranes Moist - Respiratory Exam Respiratory Exam: Clear to Ausculation Bilateral, NORMAL BREATHING PATTERN. absent: Rales, Rhonchi, Wheezes - Cardiovascular Exam Cardiovascular Exam: Bradycardia, REGULAR RHYTHM, +S1, +S2. absent: Gallop, Rubs, Murmur - GI/Abdominal Exam GI & Abdominal Exam: Soft, Normal Bowel Sounds. absent: Rigid, Tenderness, Mass , Rebound - Extremities Exam Extremities Exam: Normal Inspection. absent: Calf Tenderness, Pedal Edema - Neurological Exam Neurological Exam: Alert, Awake, CN II-XII Intact. absent: Oriented x3 (A&O x 2 ) Neuro motor strength exam: Left Upper Extremity: 5, Right Upper Extremity: 5, Left Lower Extremity: 5, Right Lower Extremity: 5 - Psychiatric Exam Psychiatric exam: Normal Affect, Normal Mood - Skin Skin Exam: Dry, Warm Assessment and Plan - Assessment and Plan (Free Text) Assessment: This is an 81yo Female with HTN, paroxysmal a.fib (on Coumadin), RCC s/p nephrectomy, Sciatica, CKD stage III, HLD, severe pulmonary HTN who was brought to ICU for AMS which has resolved. Brain MRI showed possible small L subacute parietal infarct. Patient noted to have bradycardia as well. Patient is planned for pacemaker placement tomorrow. Plan: Neuro: Small L parietal CVA Pt A&O x 2 (baseline) Neuro consulted-recs appreciated EEG to r/o seizure activity Pt on Keppra as per neuro Continue Aricept CV: Bradycardia, severe pulm HTN and hx of a.fib on coumadin Echo showed EF 87%, RSVP 105 Troponin mildly elevated- but in setting of PATRICIA Cardio consulted- recommend pacemaker placement tomorrow Hold Coumadin INR: 2.8- will reverse prior to procure with Vit K and recheck INR Continue ASA, Norvasc, Lasix, Imdur, and Lipitor Resp: Patient on room air HOB elevated, aspiration precaution Maintain spO2>90% GI: Clear liquid diet in AM then NPO tomorrow for lunch Constipated- IV iron stopped. Added Colace and Miralax Continue GI ppx Heme: Anemia secondary to chronic disease and iron deficiency Pt was on Venofer and Ferragon. Venofer stopped. s/p 1U PRBC on 03/20. Continue to monitor H/H Heme consulted- recs appreciated Neuro: PATRICIA on CKD Cr increased from 2.2 to 3.0 Cannot give IV fluids due to severe pulm HTN Nephro consulted- recs appreciated Continue to monitor I&O and BUN/Cr ID: Afebrile, no leukocytosis PCT 0.16 Endo: Maintain euglycemia GI ppx: Protonix DVT ppx: SCDs. Was on Coumadin Case seen, discussed and reviewed with Dr. Sapp. Cheo PGY2 <Kaz Sapp - Last Filed: 03/22/17 11:55> Objective - Vital Signs/Intake and Output Vital Signs (last 24 hours): Temp Pulse Resp BP Pulse Ox 98.8 F 39 L 14 119/52 L 100 03/22/17 00:00 03/22/17 10:00 03/22/17 08:00 03/22/17 09:50 03/22/17 08:00 Intake and Output: 03/22/17 03/22/17 06:59 18:59 Intake Total 400 Output Total 300 Balance 100 - Medications Medications: Current Medications Acetaminophen (Tylenol 325mg Tab) 650 mg PO Q6H PRN PRN Reason: Pain, moderate (4-7) Last Admin: 03/19/17 10:21 Dose: 650 mg Amlodipine Besylate (Norvasc) 10 mg PO DAILY [facility] Last Admin: 03/22/17 09:50 Dose: 10 mg Aspirin (Aspirin Chewable) 81 mg PO DAILY [facility] Last Admin: 03/22/17 09:48 Dose: 81 mg Atorvastatin Calcium (Lipitor) 20 mg PO DIN [facility] Last Admin: 03/21/17 17:37 Dose: 20 mg Docusate Sodium (Colace) 100 mg PO DAILY [facility] Last Admin: 03/22/17 10:37 Dose: 100 mg Donepezil HCl (Aricept) 10 mg PO HS [facility] Last Admin: 03/21/17 21:50 Dose: 10 mg Ferrous Gluconate (Fergon) 324 mg PO TID [facility] Last Admin: 03/22/17 10:38 Dose: 324 mg Furosemide (Lasix) 40 mg IV DAILY [facility] Last Admin: 03/22/17 09:48 Dose: 40 mg Isosorbide Mononitrate (Imdur Er) 30 mg PO DAILY [facility] Last Admin: 03/22/17 09:48 Dose: Not Given Levalbuterol HCl (Xopenex) 0.63 mg IH [id number] PRN PRN Reason: Shortness of Breath Last Admin: 03/20/17 04:45 Dose: 0.63 mg Levetiracetam (Keppra) 500 mg PO BID [facility] Last Admin: 03/22/17 09:48 Dose: 500 mg Lorazepam (Ativan) 2 mg IVP Q4H PRN; Protocol PRN Reason: Seizure activity Multivitamins (Thera Tab) 1 tab PO 0800 [facility] Last Admin: 03/22/17 07:26 Dose: 1 tab Oxycodone/Acetaminophen (Percocet 2.5/325 Mg Tab) 1 tab PO Q6H PRN PRN Reason: Pain, moderate (4-7) Last Admin: 03/22/17 02:31 Dose: 1 tab Pantoprazole Sodium (Protonix Ec Tab) 40 mg PO 0600 [facility] Last Admin: 03/22/17 07:26 Dose: 40 mg Polyethylene Glycol (Miralax) 17 gm PO BID [facility] Last Admin: 03/22/17 10:38 Dose: 17 gm Warfarin Sodium (Coumadin) 3 mg PO 1800 [facility] PRN Reason: Protocol Last Admin: 03/21/17 17:38 Dose: 3 mg - Labs Labs: 03/22/17 05:48 03/22/17 05:48 PT 33.5 SECONDS (9.4-12.5) H 03/22/17 07:30 INR 2.85 (0.93-1.08) H 03/22/17 07:30 APTT 40.1 Seconds (25.1-36.5) H 03/21/17 11:40 Assessment and Plan - Assessment and Plan (Free Text) Plan: Pt seen and examined, on rounds with resident, agree with note with following additions/exceptions: Patient is 81yo Female with HTN, paroxysmal a.fib (on Coumadin), RCC s/p nephrectomy, Sciatica, CKD stage III, HLD, severe pulmonary HTN admitted to ICU for AMS which has resolved, has episodes of bradycardia, awaiting PPM tomorrow. AMS, resolved Subacute CVA Renal failure Severe Pulm HTN Afib/Bradycardia Recommend: - supp o2 as needed - follow up cultures - hold rate controlling agents - follow up cardiology - VitK today, to reverse INR for tomorrow, PPM placement - monitor electrolytes - follow up renal - would give gentle IVF hydraiton, rising Cr - DC Lasix - FS control - follow up neurology, follow up EGG - GI ppx, PPI - DVT ppx, SCDs - monitor in MICU
--- NOTE | 2017-03-22 12:01 | CP.PCM.PN ---
Subjective - Date & Time of Evaluation Date of Evaluation: 03/22/17 Time of Evaluation: 11:55 - Subjective Subjective: Follow up Nephrology Consultation: Assessment: acute Kidney injury initially with high anion gap acidosis likely starvation ketoacidosis and pre-renal state as urine very concentrated, now hemodynamic as with low BP AMS possible seizure, lactic acidosis Chronic Kidney Disease Stage 3 (N18.3) possibly due to HTN, age related decline , and s/p Rt nephrectomy due to hx of RCC ? symptomatic Anemia chronic, Hypertension controlled (I12.9) Vit D insufficiency with secondary hyperparathyroidism severe pulmonary HTN and moderate to severe LVH hx of dementia Bradycardia ( A fib with slow ventricular rate) Plan no acute need of renal replacement therapy at this time no ACEI/ARB due to PATRICIA. BP tightly controlled, on low side likely resulting in impaired renal perfusion. suggest to d/c norvasc and also to hold lasix She is already on statin anemia management as per heme. continue with iron supplements and MVI Dose meds/antibiotics for reduced GFR. Avoid fleets enema/magnesium based laxatives. Avoid nephrotoxins/NSAIDs anemia management as per heme Further work up as per primary team Thanks for allowing me to participate in care of your patient. Will follow patient with you. Please call if any Qs. d/w team Dr Jt Lemon Office: [phone] Chief Complaint: Shortness of breath Reason for consult: CKD and PATRICIA HPI: Pt is a 81 y/o F with hx of hypertension (20 years) , renal cell cancer s/ p unilateral total nephrectomy, CKD stage 3 with baseline cr 1.4-1.7 since 2017 but intermittent episodes of PATRICIA, chronic anemia, A fib recently [place] [facility] now here with c/o SOB for last 1 day. transferred to ICU due to AMS and possible seizures now she feels better. denies SOB/chest pain/nausea or urinary complaints. Physical Examination: General Appearance: Comfortable, in no acute respiratory distress, co-operative . Vitals reviewed and noted as below Head; Atraumatic, normocephalic ENT: no ulcers no thrush. Tongue is midline. Oropharynx: no rash or ulcers. EYES: Pupils are equal, round and reactive to light accommodation. Eye muscles and extraocular movement intact. Sclera is anicteric. Neck; supple no lymphadenopathy, no thyromegaly or bruit Lungs: Normal respiratory rate/effort. Breath sounds bilateral equal and clear except occasional crackle left base Heart: Normal rate. s1s2 normal. No rub or gallop. Extremities: no edema. No varicose veins Neurological: Patient is alert, awake and oriented x3 but seems forgetful, sometime trying to make up for it. No other focal deficit. Strength bilateral appropriate and equal Skin: Warm and dry. Normal turgor. No rash. Palpitation: Normal elasticity for age Abdomen: Abdomen is soft. Bowel sounds +. There is no abdominal tenderness, no guarding/rigidity or organomegaly Psych: lack insight and has normal affect/mood MSK: no joint tenderness or swelling. Digits and nails normal, no deformity : kidney or bladder not palpable Labs/imaging/EKG reviewed. Past medical history, past surgical history,social history, allergy reviewed and noted as below FAMILy HX; no hx of CKD. non contributory work up: UA: SG >1.030 with ketones TSTA 5% Ferritin 32 MRI brain left infarct Echo severe pulm HTn with TR and IVC <50% collapses CT 2017: s/p Rt nephrectomy, left kidney unremarkable Vit D 21 PTH 229 Objective - Vital Signs/Intake and Output Vital Signs (last 24 hours): Temp Pulse Resp BP Pulse Ox 98.8 F 39 L 14 119/52 L 100 03/22/17 00:00 03/22/17 10:00 03/22/17 08:00 03/22/17 09:50 03/22/17 08:00 Intake and Output: 03/22/17 03/22/17 06:59 18:59 Intake Total 400 Output Total 300 Balance 100 - Medications Medications: Current Medications Acetaminophen (Tylenol 325mg Tab) 650 mg PO Q6H PRN PRN Reason: Pain, moderate (4-7) Last Admin: 03/19/17 10:21 Dose: 650 mg Amlodipine Besylate (Norvasc) 10 mg PO DAILY [facility] Last Admin: 03/22/17 09:50 Dose: 10 mg Aspirin (Aspirin Chewable) 81 mg PO DAILY [facility] Last Admin: 03/22/17 09:48 Dose: 81 mg Atorvastatin Calcium (Lipitor) 20 mg PO DIN [facility] Last Admin: 03/21/17 17:37 Dose: 20 mg Docusate Sodium (Colace) 100 mg PO DAILY [facility] Last Admin: 03/22/17 10:37 Dose: 100 mg Donepezil HCl (Aricept) 10 mg PO HS [facility] Last Admin: 03/21/17 21:50 Dose: 10 mg Ferrous Gluconate (Fergon) 324 mg PO TID [facility] Last Admin: 03/22/17 10:38 Dose: 324 mg Furosemide (Lasix) 40 mg IV DAILY [facility] Last Admin: 03/22/17 09:48 Dose: 40 mg Isosorbide Mononitrate (Imdur Er) 30 mg PO DAILY [facility] Last Admin: 03/22/17 09:48 Dose: Not Given Levalbuterol HCl (Xopenex) 0.63 mg IH [id number] PRN PRN Reason: Shortness of Breath Last Admin: 03/20/17 04:45 Dose: 0.63 mg Levetiracetam (Keppra) 500 mg PO BID [facility] Last Admin: 03/22/17 09:48 Dose: 500 mg Lorazepam (Ativan) 2 mg IVP Q4H PRN; Protocol PRN Reason: Seizure activity Multivitamins (Thera Tab) 1 tab PO 0800 [facility] Last Admin: 03/22/17 07:26 Dose: 1 tab Oxycodone/Acetaminophen (Percocet 2.5/325 Mg Tab) 1 tab PO Q6H PRN PRN Reason: Pain, moderate (4-7) Last Admin: 03/22/17 02:31 Dose: 1 tab Pantoprazole Sodium (Protonix Ec Tab) 40 mg PO 0600 [facility] Last Admin: 03/22/17 07:26 Dose: 40 mg Polyethylene Glycol (Miralax) 17 gm PO BID [facility] Last Admin: 03/22/17 10:38 Dose: 17 gm Warfarin Sodium (Coumadin) 3 mg PO 1800 [facility] PRN Reason: Protocol Last Admin: 03/21/17 17:38 Dose: 3 mg - Labs Labs: 03/22/17 05:48 03/22/17 05:48 PT 33.5 SECONDS (9.4-12.5) H 03/22/17 07:30 INR 2.85 (0.93-1.08) H 03/22/17 07:30 APTT 40.1 Seconds (25.1-36.5) H 03/21/17 11:40
[2017-03-22 14:32] LABS: INR 2.21 (0.93-1.08); PROTHROMBIN TIME 25.8 SECONDS (9.4-12.5)
--- NOTE | 2017-03-22 20:24 | CP.PCM.PN ---
Subjective - Date & Time of Evaluation Date of Evaluation: 03/22/17 Time of Evaluation: 19:15 - Subjective Subjective: Internal Medicine/Infectious Disease Follow Up: March 22, 2017 81 yo AA female presenting with Dyspnea on Exertion. [place] [facility] No fevers, chills, nausea, vomiting, or diarrhea. Mental lability the past 2 weeks. I do not feel that the patient is able to care for herself at home. I also am unable to evaluate if the patient is taking her medications properly at home. Given the laboratories, the patient is showing signs of dehydration and malnutrition. Multiple hospital admissions in the past 2 months. This morning the patient was found unresponsive by nursing staff. Rapid response initiated. The patient was also found to have intermittent arm twitching. Evaluated by House Doctor (Dr. Montanez) and consults to MICU and Neurology requested. As far as patient's opioid use is concerned, she is written for 20 Percocet doses each month. Checking [employer] website in [place] shows no other prescriptions for opioids filled by the patient. She lives alone. Noted Keppra started. Leukocytosis likely secondary to epilepsy episode. 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 The patient is currently arousable. Had some dysarthria with paraphasic errors , ideamotor and construction apraxia as well as expressive aphasia but seems to be resolved today. The patient is noted to have right facial weakness yesterday but this seems to have resolved today as well. Noted all windows consultant notes today. Marked bradycardia down to the 30s now. Discussed with Dr. Fonseca. Patient requires pacemaker for the chronic atrial fibrillation with marked bradycardia. Neurologically, the patient is back to baseline again. Objective - Vital Signs/Intake and Output Vital Signs (last 24 hours): Temp Pulse Resp BP Pulse Ox 97.6 F 39 L 25 H 102/37 L 100 03/22/17 16:00 03/22/17 18:00 03/22/17 18:00 03/22/17 18:00 03/22/17 18:00 Intake and Output: 03/22/17 03/23/17 18:59 06:59 Intake Total 770 Output Total 350 Balance 420 - Medications Medications: Current Medications Acetaminophen (Tylenol 325mg Tab) 650 mg PO Q6H PRN PRN Reason: Pain, moderate (4-7) Last Admin: 03/22/17 15:37 Dose: 650 mg Amlodipine Besylate (Norvasc) 10 mg PO DAILY [facility] Last Admin: 03/22/17 09:50 Dose: 10 mg Aspirin (Aspirin Chewable) 81 mg PO DAILY [facility] Last Admin: 03/22/17 09:48 Dose: 81 mg Atorvastatin Calcium (Lipitor) 20 mg PO DIN [facility] Last Admin: 03/22/17 17:48 Dose: 20 mg Docusate Sodium (Colace) 100 mg PO DAILY [facility] Last Admin: 03/22/17 10:37 Dose: 100 mg Donepezil HCl (Aricept) 10 mg PO HS [facility] Last Admin: 03/21/17 21:50 Dose: 10 mg Ferrous Gluconate (Fergon) 324 mg PO TID [facility] Last Admin: 03/22/17 17:47 Dose: 324 mg Furosemide (Lasix) 40 mg IV DAILY [facility] Last Admin: 03/22/17 09:48 Dose: 40 mg Isosorbide Mononitrate (Imdur Er) 30 mg PO DAILY [facility] Last Admin: 03/22/17 09:48 Dose: Not Given Levalbuterol HCl (Xopenex) 0.63 mg IH [id number] PRN PRN Reason: Shortness of Breath Last Admin: 03/20/17 04:45 Dose: 0.63 mg Levetiracetam (Keppra) 500 mg PO BID [facility] Last Admin: 03/22/17 17:48 Dose: 500 mg Lorazepam (Ativan) 2 mg IVP Q4H PRN; Protocol PRN Reason: Seizure activity Multivitamins (Thera Tab) 1 tab PO 0800 [facility] Last Admin: 03/22/17 07:26 Dose: 1 tab Oxycodone/Acetaminophen (Percocet 2.5/325 Mg Tab) 1 tab PO Q6H PRN PRN Reason: Pain, moderate (4-7) Last Admin: 03/22/17 02:31 Dose: 1 tab Pantoprazole Sodium (Protonix Ec Tab) 40 mg PO 0600 [facility] Last Admin: 03/22/17 07:26 Dose: 40 mg Polyethylene Glycol (Miralax) 17 gm PO BID [facility] Last Admin: 03/22/17 17:48 Dose: 17 gm Warfarin Sodium (Coumadin) 3 mg PO 1800 [facility] PRN Reason: Protocol Last Admin: 03/21/17 17:38 Dose: 3 mg - Labs Labs: 03/22/17 05:48 03/22/17 05:48 PT 25.8 SECONDS (9.4-12.5) H 03/22/17 14:20 INR 2.21 (0.93-1.08) H 03/22/17 14:20 APTT 40.1 Seconds (25.1-36.5) H 03/21/17 11:40 - Constitutional Appears: Non-toxic, No Acute Distress, Chronically Ill - Head Exam Head Exam: ATRAUMATIC, NORMOCEPHALIC - Eye Exam Eye Exam: EOMI, PERRL Pupil Exam: NORMAL ACCOMODATION, PERRL - ENT Exam ENT Exam: Mucous Membranes Moist, Normal External Ear Exam, TM's Normal Bilaterally - Neck Exam Neck Exam: Full ROM, Normal Inspection - Respiratory Exam Respiratory Exam: Clear to Ausculation Bilateral, NORMAL BREATHING PATTERN. absent: Rales, Rhonchi, Wheezes - Cardiovascular Exam Cardiovascular Exam: REGULAR RHYTHM, RRR, +S1, +S2 - GI/Abdominal Exam GI & Abdominal Exam: Soft, Normal Bowel Sounds. absent: Distended, Tenderness - Extremities Exam Extremities Exam: Full ROM, Normal Inspection - Neurological Exam Neurological Exam: Alert, Awake, CN II-XII Intact, Oriented x3 - Psychiatric Exam Psychiatric exam: Normal Affect, Normal Mood - Skin Skin Exam: Intact, Normal Color Assessment and Plan - Assessment and Plan (Free Text) Assessment: 81 yo AA female with complaints of Dyspnea on Exertion. Unclear if the patient takes her medication properly at home. The patient has run off previous home nursing help in the past few months. [place] [facility] [place] [facility] [place]. Chronically low heart rate. Periods of confusion. Evaluations by Cardiology Dr. Fonseca, Nephrology Dr. Lemon, and Psychiatry (on hold given recent events). Dehydration and malnutrition. The patient appears to have difficulty in caring for herself at home. This morning the patient found poorly responsive with epilepsy episode. The patient required transfer to MICU and was also seen by Neurology. The patient had leukocytosis which is likely transient to the epilepsy episode. Supportive care. Seen by Dr. Sanchez. Neurologic sequela appears to have improved from yesterday. Evaluation for seizures in progress. Recheck CBC and CMP in AM. Noted adjustment to medications. Remains in MICU. For pacemaker. Severe Pulmonary HTN. Spoke with patient's son Benjamin who is the POA.
[2017-03-23] MEDS: Pantoprazole 40 mg EC Tab PO SCH (06:22)
--- NOTE | 2017-03-23 06:37 | CP.PCM.PN ---
<Lola Miranda - Last Filed: 03/23/17 09:25> Subjective - Date & Time of Evaluation Date of Evaluation: 03/23/17 Time of Evaluation: 06:33 - Subjective Subjective: ICU Progress Note for Ivette Wells PGY2 Patient seen and examined at bedside. As per nursing staff, there were no acute overnight events. Patient did have some generalized pain last night which was relieved by Tylenol. She was tearful on exam saying she feels constipated and would like an enema. She denies chest pain, shortness of breath, nausea/vomiting /diarrhea, numbness/tingling, fever or chills. She is on Xanax and Percocet at home and requests pain medication for her generalized pain, but it was explained she cannot have any sedation due bradycardia. Objective - Vital Signs/Intake and Output Vital Signs (last 24 hours): Temp Pulse Resp BP Pulse Ox 98.5 F 36 L 38 H 120/46 L 100 03/23/17 06:20 03/23/17 05:59 03/23/17 05:59 03/23/17 06:00 03/23/17 03:00 Intake and Output: 03/22/17 03/23/17 18:59 06:59 Intake Total 770 200 Output Total 350 325 Balance 420 -125 - Medications Medications: Current Medications Acetaminophen (Tylenol 325mg Tab) 650 mg PO Q6H PRN PRN Reason: Pain, moderate (4-7) Last Admin: 03/23/17 06:20 Dose: 650 mg Amlodipine Besylate (Norvasc) 10 mg PO DAILY [facility] Last Admin: 03/22/17 09:50 Dose: 10 mg Aspirin (Aspirin Chewable) 81 mg PO DAILY [facility] Last Admin: 03/22/17 09:48 Dose: 81 mg Atorvastatin Calcium (Lipitor) 20 mg PO DIN [facility] Last Admin: 03/22/17 17:48 Dose: 20 mg Docusate Sodium (Colace) 100 mg PO DAILY [facility] Last Admin: 03/22/17 10:37 Dose: 100 mg Donepezil HCl (Aricept) 10 mg PO HS [facility] Last Admin: 03/22/17 21:02 Dose: 10 mg Ferrous Gluconate (Fergon) 324 mg PO TID [facility] Last Admin: 03/22/17 17:47 Dose: 324 mg Furosemide (Lasix) 40 mg IV DAILY [facility] Last Admin: 03/22/17 09:48 Dose: 40 mg Isosorbide Mononitrate (Imdur Er) 30 mg PO DAILY [facility] Last Admin: 03/22/17 09:48 Dose: Not Given Levalbuterol HCl (Xopenex) 0.63 mg IH [id number] PRN PRN Reason: Shortness of Breath Last Admin: 03/20/17 04:45 Dose: 0.63 mg Levetiracetam (Keppra) 500 mg PO BID [facility] Last Admin: 03/22/17 17:48 Dose: 500 mg Lorazepam (Ativan) 2 mg IVP Q4H PRN; Protocol PRN Reason: Seizure activity Multivitamins (Thera Tab) 1 tab PO 0800 [facility] Last Admin: 03/22/17 07:26 Dose: 1 tab Oxycodone/Acetaminophen (Percocet 2.5/325 Mg Tab) 1 tab PO Q6H PRN PRN Reason: Pain, moderate (4-7) Last Admin: 03/22/17 02:31 Dose: 1 tab Pantoprazole Sodium (Protonix Ec Tab) 40 mg PO 0600 [facility] Last Admin: 03/23/17 06:22 Dose: 40 mg Polyethylene Glycol (Miralax) 17 gm PO BID [facility] Last Admin: 03/22/17 17:48 Dose: 17 gm Warfarin Sodium (Coumadin) 3 mg PO 1800 [facility] PRN Reason: Protocol Last Admin: 03/21/17 17:38 Dose: 3 mg - Labs Labs: 03/22/17 05:48 03/22/17 05:48 PT 25.8 SECONDS (9.4-12.5) H 03/22/17 14:20 INR 2.21 (0.93-1.08) H 03/22/17 14:20 APTT 40.1 Seconds (25.1-36.5) H 03/21/17 11:40 - Constitutional Appears: No Acute Distress - Head Exam Head Exam: ATRAUMATIC, NORMAL INSPECTION, NORMOCEPHALIC - Eye Exam Eye Exam: Normal appearance, PERRL Pupil Exam: NORMAL ACCOMODATION, PERRL - ENT Exam ENT Exam: Mucous Membranes Moist - Neck Exam Neck Exam: Full ROM - Respiratory Exam Respiratory Exam: Clear to Ausculation Bilateral, NORMAL BREATHING PATTERN. absent: Rales, Rhonchi - Cardiovascular Exam Cardiovascular Exam: Bradycardia, REGULAR RHYTHM, +S1, +S2. absent: Gallop, Rubs - GI/Abdominal Exam GI & Abdominal Exam: Soft, Hypoactive Bowel Sounds. absent: Rigid, Tenderness, Mass, Rebound - Extremities Exam Extremities Exam: Normal Inspection. absent: Calf Tenderness, Pedal Edema - Neurological Exam Neurological Exam: Alert, Awake, CN II-XII Intact. absent: Oriented x3 (A&O x 2 ) - Psychiatric Exam Psychiatric exam: Normal Affect, Normal Mood - Skin Skin Exam: Dry, Warm Assessment and Plan - Assessment and Plan (Free Text) Assessment: This is an 81yo Female with HTN, paroxysmal a.fib (on Coumadin), RCC s/p nephrectomy, Sciatica, CKD stage III, HLD, severe pulmonary HTN who was brought to ICU for AMS which has resolved. Brain MRI showed possible small L subacute parietal infarct. She has bradycardia and is planned for pacemaker placement today. Plan: Neuro: AMS- resolved Small L parietal CVA- no neuro deficits noted Pt A&O x 2 (baseline) Neuro consulted-recs appreciated EEG done- pending read - continue Keppra as per neuro Continue Aricept CV: Bradycardia, severe pulm HTN and hx of a.fib on coumadin Pacemaker placement today Coumadin on hold INR: 1.3 Cardio consulted-recs appreciated Echo showed EF 87%, RSVP 105 Troponin mildly elevated- but in setting of PATRICIA Continue ASA, Norvasc, Imdur, and Lipitor Avoid medications that lower heart rate Resp: Maintain SpO2>90% On Room air GI: Clear liquid diet, NPO for lunch- restart diet after PPM placement Constipation- on Colace and Miralax (Pt had BM last night) Fleet enema ordered Heme: Anemia secondary to chronic disease and iron deficiency s/p 1U PRBC on 03/20. Hgb Stable- no overt signs of bleeding Continue Fergon Heme consulted- recs appreciated Neuro: PATRICIA on CKD (improving) Cr: 2.8, baseline around 1.6 Nephro consulted- recs appreciated No IV fluids due to severe pulm HTN Continue to monitor I&O, renal function and electrolytes ID: No sign of infection at this time Afebrile, no leukocytosis PCT 0.16 Endo: Maintain euglycemia GI ppx: Protonix DVT ppx: SCDs. Case seen, discussed and reviewed with Dr. Sapp. Cheo PGY2 <Kaz Sapp - Last Filed: 03/23/17 10:27> Objective - Vital Signs/Intake and Output Vital Signs (last 24 hours): Temp Pulse Resp BP Pulse Ox 98.4 F 36 L 13 114/44 L 77 L 03/23/17 08:00 03/23/17 08:00 03/23/17 08:00 03/23/17 08:00 03/23/17 08:00 Intake and Output: 03/23/17 03/23/17 06:59 18:59 Intake Total 200 Output Total 325 Balance -125 - Medications Medications: Current Medications Acetaminophen (Tylenol 325mg Tab) 650 mg PO Q6H PRN PRN Reason: Pain, moderate (4-7) Last Admin: 03/23/17 06:20 Dose: 650 mg Amlodipine Besylate (Norvasc) 10 mg PO DAILY [facility] Last Admin: 03/22/17 09:50 Dose: 10 mg Aspirin (Aspirin Chewable) 81 mg PO DAILY [facility] Last Admin: 03/23/17 09:37 Dose: Not Given Atorvastatin Calcium (Lipitor) 20 mg PO DIN [facility] Last Admin: 03/22/17 17:48 Dose: 20 mg Docusate Sodium (Colace) 100 mg PO DAILY [facility] Last Admin: 03/23/17 09:37 Dose: Not Given Donepezil HCl (Aricept) 10 mg PO HS [facility] Last Admin: 03/22/17 21:02 Dose: 10 mg Ferrous Gluconate (Fergon) 324 mg PO TID [facility] Last Admin: 03/23/17 09:37 Dose: Not Given Furosemide (Lasix) 40 mg IV DAILY [facility] Last Admin: 03/22/17 09:48 Dose: 40 mg Isosorbide Mononitrate (Imdur Er) 30 mg PO DAILY [facility] Last Admin: 03/23/17 09:37 Dose: Not Given Levalbuterol HCl (Xopenex) 0.63 mg IH [id number] PRN PRN Reason: Shortness of Breath Last Admin: 03/20/17 04:45 Dose: 0.63 mg Levetiracetam (Keppra) 500 mg PO BID [facility] Last Admin: 03/23/17 09:38 Dose: Not Given Multivitamins (Thera Tab) 1 tab PO 0800 [facility] Last Admin: 03/23/17 08:00 Dose: 1 tab Oxycodone/Acetaminophen (Percocet 2.5/325 Mg Tab) 1 tab PO Q6H PRN PRN Reason: Pain, moderate (4-7) Last Admin: 03/22/17 02:31 Dose: 1 tab Pantoprazole Sodium (Protonix Ec Tab) 40 mg PO 0600 [facility] Last Admin: 03/23/17 06:22 Dose: 40 mg Polyethylene Glycol (Miralax) 17 gm PO BID [facility] Last Admin: 03/23/17 09:38 Dose: Not Given Warfarin Sodium (Coumadin) 3 mg PO 1800 [facility] PRN Reason: Protocol Last Admin: 03/21/17 17:38 Dose: 3 mg - Labs Labs: 03/23/17 05:45 03/23/17 05:45 PT 15.1 SECONDS (9.4-12.5) H 03/23/17 05:45 INR 1.31 (0.93-1.08) H 03/23/17 05:45 APTT 40.1 Seconds (25.1-36.5) H 03/21/17 11:40 Assessment and Plan - Assessment and Plan (Free Text) Plan: Pt seen and examined, on rounds with resident, agree with note with following additions/exceptions: Patient is 81yo Female with HTN, paroxysmal a.fib (on Coumadin), RCC s/p nephrectomy, Sciatica, CKD stage III, HLD, severe pulmonary HTN admitted to ICU for AMS which has resolved, has episodes of bradycardia, awaiting PPM today at 3pm. INR acceptable today for procedure AMS, resolved Subacute CVA Renal failure Severe Pulm HTN Afib/Bradycardia Recommend: - supp o2 as needed - follow up cultures - hold rate controlling agents - follow up cardiology - monitor electrolytes - follow up renal - would give gentle IVF hydration, rising Cr - Hold Lasix - FS control - follow up neurology, follow up EGG - GI ppx, PPI - DVT ppx, SCDs - if stable after PPM, transfer to telemetry
[2017-03-23 07:04] LABS: MEAN CELL VOLUME 70.4 fl (80.0-105.0); MEAN CORPUSCULAR HEMOGLOBIN 20.6 pg (25.0-35.0); MEAN CORPUSCULAR HGB CONC 29.3 g/dl (31.0-37.0); PLATELET COUNT 267 10^3/uL (120.0-450.0); RBC 4.36 10^6/uL (3.5-6.1); RED CELL DISTRIBUTION WIDTH 22.9 % (11.5-14.5); WHITE BLOOD COUNT 7.1 10^3/ul (4.5-11.0)
[2017-03-23 07:12] LABS: INR 1.31 (0.93-1.08); PROTHROMBIN TIME 15.1 SECONDS (9.4-12.5)
[2017-03-23 07:48] LABS: ALB/GLOB RATIO 0.9 (1.1-1.8); ALBUMIN 3.3 g/dL (3.0-4.8); CALCIUM 9.1 mg/dL (8.4-10.5)
[2017-03-23] MEDS: Multivitamin Therapeutic Tab PO SCH (08:00)
[2017-03-23] MEDS: POLYETHYLENE GLYCOL 3350 17 GM/Dose PACKET PO SCH ×2 (09:38→17:56)
[2017-03-23] MEDS ORDERED: Liquid Adhesive TOP ONE (15:30)
--- NOTE | 2017-03-23 16:09 | CP.PCM.PN ---
Subjective - Date & Time of Evaluation Date of Evaluation: 03/22/17 Time of Evaluation: 18:40 - Subjective Subjective: Feeling better, conversational Objective - Vital Signs/Intake and Output Vital Signs (last 24 hours): Temp Pulse Resp BP Pulse Ox 98.5 F 37 L 11 L 125/44 L 77 L 03/23/17 12:00 03/23/17 14:00 03/23/17 14:00 03/23/17 14:00 03/23/17 08:00 Intake and Output: 03/23/17 03/23/17 06:59 18:59 Intake Total 200 Output Total 325 Balance -125 - Medications Medications: Current Medications Acetaminophen (Tylenol 325mg Tab) 650 mg PO Q6H PRN PRN Reason: Pain, Mild (1-3) Amlodipine Besylate (Norvasc) 10 mg PO DAILY [facility] Last Admin: 03/22/17 09:50 Dose: 10 mg Apixaban (Eliquis) 2.5 mg PO BID [facility] PRN Reason: Protocol Aspirin (Aspirin Chewable) 81 mg PO DAILY [facility] Last Admin: 03/23/17 09:37 Dose: Not Given Atorvastatin Calcium (Lipitor) 20 mg PO DIN [facility] Last Admin: 03/22/17 17:48 Dose: 20 mg Docusate Sodium (Colace) 100 mg PO DAILY [facility] Last Admin: 03/23/17 09:37 Dose: Not Given Donepezil HCl (Aricept) 10 mg PO HS [facility] Last Admin: 03/22/17 21:02 Dose: 10 mg Ferrous Gluconate (Fergon) 324 mg PO TID [facility] Last Admin: 03/23/17 14:00 Dose: Not Given Furosemide (Lasix) 40 mg IV DAILY [facility] Last Admin: 03/22/17 09:48 Dose: 40 mg Isosorbide Mononitrate (Imdur Er) 30 mg PO DAILY [facility] Last Admin: 03/23/17 09:37 Dose: Not Given Levalbuterol HCl (Xopenex) 0.63 mg IH [id number] PRN PRN Reason: Shortness of Breath Last Admin: 03/20/17 04:45 Dose: 0.63 mg Levetiracetam (Keppra) 500 mg PO BID [facility] Last Admin: 03/23/17 09:38 Dose: Not Given Multivitamins (Thera Tab) 1 tab PO 0800 [facility] Last Admin: 03/23/17 08:00 Dose: 1 tab Oxycodone/Acetaminophen (Percocet 2.5/325 Mg Tab) 1 tab PO Q6H PRN PRN Reason: Pain, moderate (4-7) Last Admin: 03/22/17 02:31 Dose: 1 tab Pantoprazole Sodium (Protonix Ec Tab) 40 mg PO 0600 [facility] Last Admin: 03/23/17 06:22 Dose: 40 mg Polyethylene Glycol (Miralax) 17 gm PO BID [facility] Last Admin: 03/23/17 09:38 Dose: Not Given - Labs Labs: 03/23/17 05:45 03/23/17 05:45 PT 15.1 SECONDS (9.4-12.5) H 03/23/17 05:45 INR 1.31 (0.93-1.08) H 03/23/17 05:45 APTT 40.1 Seconds (25.1-36.5) H 03/21/17 11:40 - Head Exam Head Exam: ATRAUMATIC - Eye Exam Eye Exam: Normal appearance - ENT Exam ENT Exam: Mucous Membranes Dry - Respiratory Exam Respiratory Exam: NORMAL BREATHING PATTERN - Cardiovascular Exam Cardiovascular Exam: +S1, +S2 - GI/Abdominal Exam GI & Abdominal Exam: Normal Bowel Sounds - Extremities Exam Extremities Exam: Normal Inspection - Neurological Exam Neurological Exam: Oriented x3 Assessment and Plan (1) Anemia Assessment & Plan: iron deficiency s/p PRBC transfusion on iron Status: Chronic (2) Coagulopathy Assessment & Plan: anticoagulation Status: Acute
--- NOTE | 2017-03-23 16:12 | CP.PCM.PN ---
Subjective - Date & Time of Evaluation Date of Evaluation: 03/23/17 Time of Evaluation: 15:00 - Subjective Subjective: No complaints. Objective - Vital Signs/Intake and Output Vital Signs (last 24 hours): Temp Pulse Resp BP Pulse Ox 98.5 F 37 L 11 L 125/44 L 77 L 03/23/17 12:00 03/23/17 14:00 03/23/17 14:00 03/23/17 14:00 03/23/17 08:00 Intake and Output: 03/23/17 03/23/17 06:59 18:59 Intake Total 200 Output Total 325 Balance -125 - Medications Medications: Current Medications Acetaminophen (Tylenol 325mg Tab) 650 mg PO Q6H PRN PRN Reason: Pain, Mild (1-3) Amlodipine Besylate (Norvasc) 10 mg PO DAILY [facility] Last Admin: 03/22/17 09:50 Dose: 10 mg Apixaban (Eliquis) 2.5 mg PO BID [facility] PRN Reason: Protocol Aspirin (Aspirin Chewable) 81 mg PO DAILY [facility] Last Admin: 03/23/17 09:37 Dose: Not Given Atorvastatin Calcium (Lipitor) 20 mg PO DIN [facility] Last Admin: 03/22/17 17:48 Dose: 20 mg Docusate Sodium (Colace) 100 mg PO DAILY [facility] Last Admin: 03/23/17 09:37 Dose: Not Given Donepezil HCl (Aricept) 10 mg PO HS [facility] Last Admin: 03/22/17 21:02 Dose: 10 mg Ferrous Gluconate (Fergon) 324 mg PO TID [facility] Last Admin: 03/23/17 14:00 Dose: Not Given Furosemide (Lasix) 40 mg IV DAILY [facility] Last Admin: 03/22/17 09:48 Dose: 40 mg Isosorbide Mononitrate (Imdur Er) 30 mg PO DAILY [facility] Last Admin: 03/23/17 09:37 Dose: Not Given Levalbuterol HCl (Xopenex) 0.63 mg IH [id number] PRN PRN Reason: Shortness of Breath Last Admin: 03/20/17 04:45 Dose: 0.63 mg Levetiracetam (Keppra) 500 mg PO BID [facility] Last Admin: 03/23/17 09:38 Dose: Not Given Multivitamins (Thera Tab) 1 tab PO 0800 [facility] Last Admin: 03/23/17 08:00 Dose: 1 tab Oxycodone/Acetaminophen (Percocet 2.5/325 Mg Tab) 1 tab PO Q6H PRN PRN Reason: Pain, moderate (4-7) Last Admin: 03/22/17 02:31 Dose: 1 tab Pantoprazole Sodium (Protonix Ec Tab) 40 mg PO 0600 [facility] Last Admin: 03/23/17 06:22 Dose: 40 mg Polyethylene Glycol (Miralax) 17 gm PO BID [facility] Last Admin: 03/23/17 09:38 Dose: Not Given - Labs Labs: 03/23/17 05:45 03/23/17 05:45 PT 15.1 SECONDS (9.4-12.5) H 03/23/17 05:45 INR 1.31 (0.93-1.08) H 03/23/17 05:45 APTT 40.1 Seconds (25.1-36.5) H 03/21/17 11:40 - Head Exam Head Exam: ATRAUMATIC - Eye Exam Eye Exam: Normal appearance - ENT Exam ENT Exam: Mucous Membranes Dry - Respiratory Exam Respiratory Exam: NORMAL BREATHING PATTERN - Cardiovascular Exam Cardiovascular Exam: +S1, +S2 - GI/Abdominal Exam GI & Abdominal Exam: Normal Bowel Sounds Assessment and Plan (1) Anemia Assessment & Plan: iron deficiency anemia s/p PRBC transfusion on iron Status: Chronic (2) Coagulopathy Assessment & Plan: anticoagulation Status: Acute
[2017-03-23] MEDS ORDERED: Midazolam 2 MG/2 ML VIAL ONE (16:14)
[2017-03-23] MEDS: Lidocaine 2% Inj (20ml) ONE ×2 (16:30→17:56)
[2017-03-23] MEDS: Oxycodone/Acetaminophen 2.5/325 mg Tab PO PRN (18:00)
--- NOTE | 2017-03-23 18:39 | RAD ---
HISTORY: post ppm implant COMPARISON: 03/20/2017. FINDINGS: LUNGS: No active pulmonary disease. PLEURA: No significant pleural effusion identified, no pneumothorax apparent. CARDIOVASCULAR: No radiographic findings to suggest acute or significant cardiovascular disease. Position/ configuration of pacemaker device: Satisfactory. OSSEOUS STRUCTURES: No significant abnormalities. VISUALIZED UPPER ABDOMEN: Normal. OTHER FINDINGS: None. IMPRESSION: Satisfactory position recently placed pacemaker device. Resolved pulmonary vascular congestion.
--- NOTE | 2017-03-23 18:55 | CP.PCM.PN ---
Subjective - Date & Time of Evaluation Date of Evaluation: 03/23/17 Time of Evaluation: 13:00 - Subjective Subjective: Follow up Nephrology Consultation: Assessment: stable acute Kidney injury initially with high anion gap acidosis likely starvation ketoacidosis and pre-renal state as urine very concentrated, now hemodynamic as with low BP AMS possible seizure, lactic acidosis Chronic Kidney Disease Stage 3 (N18.3) possibly due to HTN, age related decline , and s/p Rt nephrectomy due to hx of RCC ? symptomatic Anemia chronic, Hypertension controlled (I12.9) Vit D insufficiency with secondary hyperparathyroidism severe pulmonary HTN and moderate to severe LVH hx of dementia Bradycardia ( A fib with slow ventricular rate) Plan no acute need of renal replacement therapy at this time no ACEI/ARB due to PATRICIA. BP tightly controlled, on low side likely resulting in impaired renal perfusion. d/c norvasc and also to hold lasix. Consider IVF if serum creatinine remains high She is already on statin anemia management as per heme. continue with iron supplements and MVI pt for PPM 03/23/17 Dose meds/antibiotics for reduced GFR. Avoid fleets enema/magnesium based laxatives. Avoid nephrotoxins/NSAIDs anemia management as per heme Further work up as per primary team Thanks for allowing me to participate in care of your patient. Will follow patient with you. Please call if any Qs. d/w team Dr Jt Lemon Office: [phone] Reason for consult: CKD and PATRICIA HPI: Pt is a 81 y/o F with hx of hypertension (20 years) , renal cell cancer s/ p unilateral total nephrectomy, CKD stage 3 with baseline cr 1.4-1.7 since 2017 but intermittent episodes of PATRICIA, chronic anemia, A fib recently admitted to [facility] now here with c/o SOB for last 1 day. transferred to ICU due to AMS and possible seizures now she feels better. denies SOB/chest pain/nausea or urinary complaints. Physical Examination: General Appearance: Comfortable, in no acute respiratory distress, co-operative . Vitals reviewed and noted as below Head; Atraumatic, normocephalic ENT: no ulcers no thrush. Tongue is midline. Oropharynx: no rash or ulcers. EYES: Pupils are equal, round and reactive to light accommodation. Eye muscles and extraocular movement intact. Sclera is anicteric. Neck; supple no lymphadenopathy, no thyromegaly or bruit Lungs: Normal respiratory rate/effort. Breath sounds bilateral equal and clear Heart: Normal rate. s1s2 normal. No rub or gallop. Extremities: no edema. No varicose veins Neurological: Patient is alert, awake and oriented x3 but seems forgetful, sometime trying to make up for it. No other focal deficit. Strength bilateral appropriate and equal Skin: Warm and dry. Normal turgor. No rash. Palpitation: Normal elasticity for age Abdomen: Abdomen is soft. Bowel sounds +. There is no abdominal tenderness, no guarding/rigidity or organomegaly Psych: lack insight and has normal affect/mood MSK: no joint tenderness or swelling. Digits and nails normal, no deformity : kidney or bladder not palpable Labs/imaging/EKG reviewed. Past medical history, past surgical history,social history, allergy reviewed and noted as below FAMILy HX; no hx of CKD. non contributory work up: UA: SG >1.030 with ketones TSTA 5% Ferritin 32 MRI brain left infarct Echo severe pulm HTn with TR and IVC <50% collapses CT 2017: s/p Rt nephrectomy, left kidney unremarkable Vit D 21 PTH 229 Objective - Vital Signs/Intake and Output Vital Signs (last 24 hours): Temp Pulse Resp BP Pulse Ox 98.5 F 37 L 11 L 125/44 L 77 L 03/23/17 12:00 03/23/17 14:00 03/23/17 14:00 03/23/17 14:00 03/23/17 08:00 Intake and Output: 03/23/17 03/23/17 06:59 18:59 Intake Total 200 Output Total 325 Balance -125 - Medications Medications: Current Medications Acetaminophen (Tylenol 325mg Tab) 650 mg PO Q6H PRN PRN Reason: Pain, Mild (1-3) Amlodipine Besylate (Norvasc) 10 mg PO DAILY [facility] Last Admin: 03/22/17 09:50 Dose: 10 mg Apixaban (Eliquis) 2.5 mg PO BID [facility] PRN Reason: Protocol Aspirin (Aspirin Chewable) 81 mg PO DAILY [facility] Last Admin: 03/23/17 09:37 Dose: Not Given Atorvastatin Calcium (Lipitor) 20 mg PO DIN [facility] Last Admin: 03/23/17 18:00 Dose: 20 mg Docusate Sodium (Colace) 100 mg PO DAILY [facility] Last Admin: 03/23/17 09:37 Dose: Not Given Donepezil HCl (Aricept) 10 mg PO HS [facility] Last Admin: 03/22/17 21:02 Dose: 10 mg Ferrous Gluconate (Fergon) 324 mg PO TID [facility] Last Admin: 03/23/17 17:55 Dose: 324 mg Furosemide (Lasix) 40 mg IV DAILY [facility] Last Admin: 03/22/17 09:48 Dose: 40 mg Acetaminophen (Ofirmev) 1,000 mg in 100 mls @ 400 mls/hr IVPB Q6H PRN PRN Reason: Pain, severe (8-10) Stop: 03/25/17 17:53 Isosorbide Mononitrate (Imdur Er) 30 mg PO DAILY [facility] Last Admin: 03/23/17 09:37 Dose: Not Given Ketorolac Tromethamine (Toradol) 30 mg IVP Q6 PRN PRN Reason: Pain, moderate (4-7) Levalbuterol HCl (Xopenex) 0.63 mg IH [id number] PRN PRN Reason: Shortness of Breath Last Admin: 03/20/17 04:45 Dose: 0.63 mg Levetiracetam (Keppra) 500 mg PO BID [facility] Last Admin: 03/23/17 17:55 Dose: 500 mg Multivitamins (Thera Tab) 1 tab PO 0800 [facility] Last Admin: 03/23/17 08:00 Dose: 1 tab Oxycodone/Acetaminophen (Percocet 2.5/325 Mg Tab) 1 tab PO Q6H PRN PRN Reason: Pain, moderate (4-7) Last Admin: 03/23/17 18:00 Dose: 1 tab Pantoprazole Sodium (Protonix Ec Tab) 40 mg PO 0600 [facility] Last Admin: 03/23/17 06:22 Dose: 40 mg Polyethylene Glycol (Miralax) 17 gm PO BID [facility] Last Admin: 03/23/17 17:56 Dose: Not Given Warfarin Sodium (Coumadin) 5 mg PO 1800 [facility] PRN Reason: Protocol Last Admin: 03/23/17 18:51 Dose: 5 mg - Labs Labs: 03/23/17 05:45 03/23/17 05:45 PT 15.1 SECONDS (9.4-12.5) H 03/23/17 05:45 INR 1.31 (0.93-1.08) H 03/23/17 05:45 APTT 40.1 Seconds (25.1-36.5) H 03/21/17 11:40
--- NOTE | 2017-03-23 19:23 | PN ---
CARDIOLOGY FOLLOWUP DATE: 03/23/2017 SUBJECTIVE: The patient remains asymptomatic in bed. OBJECTIVE: VITAL SIGNS: Blood pressure is 125/44 and heart rate in the 30s. NECK: Negative JVD. LUNGS: Without rales. HEART: Reveals S1 and S2. EXTREMITIES: Without edema. LABORATORY DATA: Hemoglobin is 9.0. Chemistries, BUN and creatinine is 59 and 2.8. The INR is 1.3. IMPRESSION: 1. Marked bradycardia. 2. Atrial fibrillation. 3. Severe pulmonary hypertension. 4. Intermittent dizziness. PLAN: Given these findings, the patient's coagulopathy is corrected with vitamin K. The patient is now scheduled for pacemaker today. Oswald Fonseca MD
--- NOTE | 2017-03-23 19:24 | CP.PCM.PN ---
Subjective - Date & Time of Evaluation Date of Evaluation: 03/23/17 Time of Evaluation: 19:15 - Subjective Subjective: Internal Medicine/Infectious Disease Follow Up: March 23, 2017 81 yo AA female presenting with Dyspnea on Exertion. Recently discharged from [facility]. No fevers, chills, nausea, vomiting, or diarrhea. Mental lability the past 2 weeks. I do not feel that the patient is able to care for herself at home. I also am unable to evaluate if the patient is taking her medications properly at home. Given the laboratories, the patient is showing signs of dehydration and malnutrition. Multiple hospital admissions in the past 2 months. This morning the patient was found unresponsive by nursing staff. Rapid response initiated. The patient was also found to have intermittent arm twitching. Evaluated by House Doctor (Dr. Montanez) and consults to MICU and Neurology requested. As far as patient's opioid use is concerned, she is written for 20 Percocet doses each month. Checking [employer] website in [place] shows no other prescriptions for opioids filled by the patient. She lives alone. Noted Keppra started. Leukocytosis likely secondary to epilepsy episode. 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 The patient is currently arousable. Had some dysarthria with paraphasic errors , ideamotor and construction apraxia as well as expressive aphasia but seems to be resolved today. The patient is noted to have right facial weakness yesterday but this seems to have resolved today as well. Noted all business transformation consultant notes today. Marked bradycardia down to the 30s now. Discussed with Dr. Fonseca. Patient requires pacemaker for the chronic atrial fibrillation with marked bradycardia. Pacemaker placed this afternoon. Creatinine still remains elevated at 2.8 ( 3.0 yesterday) Neurologically, the patient is back to baseline again. AAO x 2 at baseline. She has been emotionally labile for the last few months. Objective - Vital Signs/Intake and Output Vital Signs (last 24 hours): Temp Pulse Resp BP Pulse Ox 98.5 F 37 L 11 L 125/44 L 77 L 03/23/17 12:00 03/23/17 14:00 03/23/17 14:00 03/23/17 14:00 03/23/17 08:00 - Medications Medications: Current Medications Acetaminophen (Tylenol 325mg Tab) 650 mg PO Q6H PRN PRN Reason: Pain, Mild (1-3) Amlodipine Besylate (Norvasc) 10 mg PO DAILY [facility] Last Admin: 03/22/17 09:50 Dose: 10 mg Apixaban (Eliquis) 2.5 mg PO BID [facility] PRN Reason: Protocol Aspirin (Aspirin Chewable) 81 mg PO DAILY [facility] Last Admin: 03/23/17 09:37 Dose: Not Given Atorvastatin Calcium (Lipitor) 20 mg PO DIN [facility] Last Admin: 03/23/17 18:00 Dose: 20 mg Docusate Sodium (Colace) 100 mg PO DAILY [facility] Last Admin: 03/23/17 09:37 Dose: Not Given Donepezil HCl (Aricept) 10 mg PO HS [facility] Last Admin: 03/22/17 21:02 Dose: 10 mg Ferrous Gluconate (Fergon) 324 mg PO TID [facility] Last Admin: 03/23/17 17:55 Dose: 324 mg Furosemide (Lasix) 40 mg IV DAILY [facility] Last Admin: 03/22/17 09:48 Dose: 40 mg Acetaminophen (Ofirmev) 1,000 mg in 100 mls @ 400 mls/hr IVPB Q6H PRN PRN Reason: Pain, severe (8-10) Stop: 03/25/17 17:53 Isosorbide Mononitrate (Imdur Er) 30 mg PO DAILY [facility] Last Admin: 03/23/17 09:37 Dose: Not Given Ketorolac Tromethamine (Toradol) 30 mg IVP Q6 PRN PRN Reason: Pain, moderate (4-7) Levalbuterol HCl (Xopenex) 0.63 mg IH [id number] PRN PRN Reason: Shortness of Breath Last Admin: 03/20/17 04:45 Dose: 0.63 mg Levetiracetam (Keppra) 500 mg PO BID [facility] Last Admin: 03/23/17 17:55 Dose: 500 mg Multivitamins (Thera Tab) 1 tab PO 0800 [facility] Last Admin: 03/23/17 08:00 Dose: 1 tab Oxycodone/Acetaminophen (Percocet 2.5/325 Mg Tab) 1 tab PO Q6H PRN PRN Reason: Pain, moderate (4-7) Last Admin: 03/23/17 18:00 Dose: 1 tab Pantoprazole Sodium (Protonix Ec Tab) 40 mg PO 0600 [facility] Last Admin: 03/23/17 06:22 Dose: 40 mg Polyethylene Glycol (Miralax) 17 gm PO BID [facility] Last Admin: 03/23/17 17:56 Dose: Not Given Warfarin Sodium (Coumadin) 5 mg PO 1800 [facility] PRN Reason: Protocol Last Admin: 03/23/17 18:51 Dose: 5 mg - Labs Labs: 03/23/17 05:45 03/23/17 05:45 PT 15.1 SECONDS (9.4-12.5) H 03/23/17 05:45 INR 1.31 (0.93-1.08) H 03/23/17 05:45 APTT 40.1 Seconds (25.1-36.5) H 03/21/17 11:40 - Constitutional Appears: Non-toxic, No Acute Distress, Chronically Ill - Head Exam Head Exam: ATRAUMATIC, NORMOCEPHALIC - Eye Exam Eye Exam: EOMI, PERRL Pupil Exam: NORMAL ACCOMODATION, PERRL - ENT Exam ENT Exam: Mucous Membranes Moist, Normal External Ear Exam, TM's Normal Bilaterally - Neck Exam Neck Exam: Full ROM, Normal Inspection - Respiratory Exam Respiratory Exam: Clear to Ausculation Bilateral, NORMAL BREATHING PATTERN. absent: Rales, Rhonchi, Wheezes - Cardiovascular Exam Cardiovascular Exam: REGULAR RHYTHM, RRR, +S1, +S2 - GI/Abdominal Exam GI & Abdominal Exam: Soft, Normal Bowel Sounds. absent: Distended, Tenderness - Extremities Exam Extremities Exam: Full ROM, Normal Inspection - Neurological Exam Neurological Exam: Alert, Awake, CN II-XII Intact - Psychiatric Exam Psychiatric exam: Anxious, Depressed - Skin Skin Exam: Intact, Normal Color Assessment and Plan - Assessment and Plan (Free Text) Assessment: 81 yo AA female with complaints of Dyspnea on Exertion. Unclear if the patient takes her medication properly at home. The patient has run off previous home nursing help in the past few months. Recent hospitalizations to [facility] and [facility]. Chronically low heart rate. Periods of confusion. Evaluations by Cardiology Dr. Fonseca, Nephrology Dr. Lemon, and Psychiatry (on hold given recent events). Dehydration and malnutrition. The patient appears to have difficulty in caring for herself at home. This morning the patient found poorly responsive with epilepsy episode. The patient required transfer to MICU and was also seen by Neurology. The patient had leukocytosis which is likely transient to the epilepsy episode. Supportive care. Seen by Dr. Sanchez. Neurologic sequela appears to have improved from yesterday. Evaluation for seizures in progress. Recheck CBC and CMP in AM. Noted adjustment to medications. Remains in MICU. For pacemaker. Severe Pulmonary HTN. Pacemaker placed today. Still with elevated creatinine. Spoke with patient's son Benjamin who is the POA.
[2017-03-24 06:47] LABS: HEMOGLOBIN 9.8 g/dL (12.0-16.0); MEAN CELL VOLUME 71.1 fl (80.0-105.0); MEAN CORPUSCULAR HEMOGLOBIN 20.8 pg (25.0-35.0); MEAN CORPUSCULAR HGB CONC 29.3 g/dl (31.0-37.0); MEAN PLATELET VOLUME 9.6 fl (7.0-11.0); RBC 4.71 10^6/uL (3.5-6.1); WHITE BLOOD COUNT 8.2 10^3/ul (4.5-11.0)
[2017-03-24 06:53] LABS: INR 1.22 (0.93-1.08); PROTHROMBIN TIME 14.1 SECONDS (9.4-12.5)
--- NOTE | 2017-03-24 07:05 | CP.PCM.PN ---
Subjective - Date & Time of Evaluation Date of Evaluation: 03/24/17 Time of Evaluation: 07:02 - Subjective Subjective: Ms. Baker was seen and examined at the bedside in ICU. She is alert, oriented with episodes of forgetfulness and crying. She denies any headache, but pain at her back and pacemaker site. She denies any blurred vision, dizziness, lightheadedness, nausea, or vomiting. She is able to follow simple commands. She has bilateral lower extremities SCD's. There was no untoward events overnight. Objective - Vital Signs/Intake and Output Vital Signs (last 24 hours): Temp Pulse Resp BP Pulse Ox 98.2 F 65 21 132/60 95 03/23/17 18:00 03/24/17 04:59 03/24/17 04:59 03/24/17 05:00 03/23/17 18:21 - Medications Medications: Current Medications Acetaminophen (Tylenol 325mg Tab) 650 mg PO Q6H PRN PRN Reason: Pain, Mild (1-3) Amlodipine Besylate (Norvasc) 10 mg PO DAILY [facility] Last Admin: 03/22/17 09:50 Dose: 10 mg Apixaban (Eliquis) 2.5 mg PO BID [facility] PRN Reason: Protocol Aspirin (Aspirin Chewable) 81 mg PO DAILY [facility] Last Admin: 03/23/17 09:37 Dose: Not Given Atorvastatin Calcium (Lipitor) 20 mg PO DIN [facility] Last Admin: 03/23/17 18:00 Dose: 20 mg Docusate Sodium (Colace) 100 mg PO DAILY [facility] Last Admin: 03/23/17 09:37 Dose: Not Given Donepezil HCl (Aricept) 10 mg PO HS [facility] Last Admin: 03/23/17 21:46 Dose: 10 mg Ferrous Gluconate (Fergon) 324 mg PO TID [facility] Last Admin: 03/23/17 17:55 Dose: 324 mg Furosemide (Lasix) 40 mg IV DAILY [facility] Last Admin: 03/22/17 09:48 Dose: 40 mg Acetaminophen (Ofirmev) 1,000 mg in 100 mls @ 400 mls/hr IVPB Q6H PRN PRN Reason: Pain, severe (8-10) Stop: 03/25/17 17:53 Isosorbide Mononitrate (Imdur Er) 30 mg PO DAILY [facility] Last Admin: 03/23/17 09:37 Dose: Not Given Ketorolac Tromethamine (Toradol) 30 mg IVP Q6 PRN PRN Reason: Pain, moderate (4-7) Last Admin: 03/23/17 20:24 Dose: 30 mg Levalbuterol HCl (Xopenex) 0.63 mg IH [id number] PRN PRN Reason: Shortness of Breath Last Admin: 03/20/17 04:45 Dose: 0.63 mg Levetiracetam (Keppra) 500 mg PO BID [facility] Last Admin: 03/23/17 17:55 Dose: 500 mg Multivitamins (Thera Tab) 1 tab PO 0800 [facility] Last Admin: 03/23/17 08:00 Dose: 1 tab Oxycodone/Acetaminophen (Percocet 2.5/325 Mg Tab) 1 tab PO Q6H PRN PRN Reason: Pain, moderate (4-7) Last Admin: 03/23/17 18:00 Dose: 1 tab Pantoprazole Sodium (Protonix Ec Tab) 40 mg PO 0600 [facility] Last Admin: 03/23/17 06:22 Dose: 40 mg Polyethylene Glycol (Miralax) 17 gm PO BID [facility] Last Admin: 03/23/17 17:56 Dose: Not Given Warfarin Sodium (Coumadin) 5 mg PO 1800 [facility] PRN Reason: Protocol Last Admin: 03/23/17 18:51 Dose: 5 mg - Labs Labs: 03/23/17 05:45 03/23/17 05:45 PT 14.1 SECONDS (9.4-12.5) H 03/24/17 05:30 INR 1.22 (0.93-1.08) H 03/24/17 05:30 APTT 40.1 Seconds (25.1-36.5) H 03/21/17 11:40 - Constitutional Appears: No Acute Distress - Head Exam Head Exam: NORMAL INSPECTION - Neurological Exam Neurological Exam: Alert, Awake, Oriented x3 Neuro motor strength exam: Left Upper Extremity: 5, Right Upper Extremity: 5, Left Lower Extremity: 5, Right Lower Extremity: 5 Additional comments: Neurological unchanged from previous examination. Assessment and Plan (1) Seizure Assessment & Plan: Case discussed with Dr. Alston, continue all current medical, physical, and occupational therapies. Pending EEG result. Status: Acute
[2017-03-24 07:27] LABS: ALB/GLOB RATIO 0.9 (1.1-1.8); ALBUMIN 3.8 g/dL (3.0-4.8); CALCIUM 9.3 mg/dL (8.4-10.5)
--- NOTE | 2017-03-24 08:22 | OP ---
PROCEDURE DATE: 03/23/2017 PREPROCEDURE DIAGNOSES: Symptomatic bradycardia, atrial fibrillation. PROCEDURE: Insertion of a single lead permanent pacemaker. REFERRING PHYSICIAN: Oswald Fonseca MD. BRIEF HISTORY: Mrs. Sarah Baker is a 81-year-old -[place] female with past medical history significant for paroxysmal atrial fibrillation, sick sinus syndrome, maintained on Coumadin, hypertension, renal cell carcinoma status post nephrectomy, chronic opioid use, severe pulmonary hypertension, who was admitted to [facility] on 01/16/2018 with what appeared to be worsening respiratory status, found to be unresponsive, found twitching. She required ICU admission. The patient was found to be persistently bradycardic in the mid-30s with underlying rhythm, coarse atrial fibrillation, possible left sided atrial flutter. I was contacted by Dr. Fonseca. Structural heart disease workup in the form of an echocardiogram showed an ejection fraction of 87% with a right ventricular systolic pressure of 105. Troponins had been elevated, but it was in the setting of acute kidney injury. The patient was treated for high blood pressure using known rate-slowing agents. Decision for permanent pacemaker was made. The case was discussed with the patient's son, Benjamin, in [facility], who was able to give informed consent. His who is a nurse was able to listen in and answer questions as well. We had a nurse and RN to witness the signature for procedure as well as conscious sedation, of which she only received 1 mg of versed during the procedure. DESCRIPTION OF PROCEDURE: Mrs. Sarah Baker came to the cardiac phlebotomist lab assistant here at [facility] on today, 03/23/2017, for implantation of a single lead permanent pacemaker. The right pectoral area was draped and prepped in a sterile fashion. 2% lidocaine solution was injected into the surgical site. A 3.5 cm incision was made 2 fingerbreadths below the clavicle. Using blunt dissection and electrocautery, the pressure points were dissected and the cephalic vein was identified. A cephalic vein cut-down was then performed without difficulty. A 7-[place] [employer] SafeSheath was inserted once a wire was kept and maintained for venous access. The sheath and wire were then removed. The lead, which is a biventricular lead, a 45 cm serial number [id number] was inserted via the sheath and manipulated to the right ventricular apex without difficulty. The active tip was extended. Parameters on this lead through the Program System Analyzer and similarly through the device were as follows: Threshold of 0.6 volts at 0.5 milliseconds at a current of 1.0 milliamps, impedance of 685, R-wave is measured 9.9. The lead was then sutured down into place. Additional ligatures were applied to achieve hemostasis. The lead was then connected to the pulse generator, which is a [employer], SRIS1 device, serial number [id number]. The lead system was then coiled and placed in a subfascial pocket, which was made with blunt dissection and electrocautery. Prior to insertion of device and lead system, the pocket was irrigated. Retention sutures were applied to prevent device migration. The fascia and skin layers were brought together using 2-0 Vicryl. The final area was closed with Mastisol and Steri-Strips. A small pressure dressing was then placed. IMPRESSION: Successful implantation of a single lead permanent pacemaker. PLAN: The patient should undergo a 12-lead EKG and chest x-ray. Coumadin may be restarted as early as this evening if re-anticoagulation is applied at this point from a critical care/general medical stand point. The patient may be restarted on rate-slowing agents if required for management of hypertension/empiric therapy for coronary artery disease. Thank you for allowing me to participate in the care of your patient. Please do not hesitate to call for any questions in regards to her care. Cory Villa MD
--- NOTE | 2017-03-24 08:29 | CARD ---
APPROVED REPORT EKG Measurement Heart [id number] <Conclusion> Electronic ventricular pacemaker
[2017-03-24] MEDS: POLYETHYLENE GLYCOL 3350 17 GM/Dose PACKET PO SCH ×3 (08:53→17:34)
[2017-03-24] MEDS: Multivitamin Therapeutic Tab PO SCH (08:54)
[2017-03-24] MEDS: Oxycodone/Acetaminophen 2.5/325 mg Tab PO PRN ×3 (08:57→22:44)
[2017-03-24] MEDS: Pantoprazole 40 mg EC Tab PO SCH (09:00)
--- NOTE | 2017-03-24 14:56 | CP.PCM.PN ---
Subjective - Date & Time of Evaluation Date of Evaluation: 03/24/17 Time of Evaluation: 14:54 - Subjective Subjective: Follow up Nephrology Consultation: Assessment: stable acute Kidney injury initially with high anion gap acidosis likely starvation ketoacidosis and pre-renal state as urine very concentrated, now hemodynamic as with low BP AMS possible seizure, lactic acidosis Chronic Kidney Disease Stage 3 (N18.3) possibly due to HTN, age related decline , and s/p Rt nephrectomy due to hx of RCC ? symptomatic Anemia chronic, Hypertension controlled (I12.9) Vit D insufficiency with secondary hyperparathyroidism severe pulmonary HTN and moderate to severe LVH hx of dementia Bradycardia ( A fib with slow ventricular rate) s/p PPM Plan no acute need of renal replacement therapy at this time no ACEI/ARB due to PATRICIA. BP stable. d/c norvasc and also to hold lasix. serum cr better She is already on statin anemia management as per heme. continue with iron supplements and MVI pt had PPM 03/23/17 d/c toradol. no nsaids Dose meds/antibiotics for reduced GFR. Avoid fleets enema/magnesium based laxatives. Avoid nephrotoxins/NSAIDs anemia management as per heme Further work up as per primary team Thanks for allowing me to participate in care of your patient. Will follow patient with you. Please call if any Qs. d/w team Dr Jt Lemon Office: [phone] Reason for consult: CKD and PATRICIA HPI: Pt is a 81 y/o F with hx of hypertension (20 years) , renal cell cancer s/ p unilateral total nephrectomy, CKD stage 3 with baseline cr 1.4-1.7 since 2017 but intermittent episodes of PATRICIA, chronic anemia, A fib recently admitted to [facility] [place] now here with c/o SOB for last 1 day. transferred to ICU due to AMS and possible seizures now she feels better. denies SOB/chest pain/nausea or urinary complaints. Physical Examination: General Appearance: Comfortable, in no acute respiratory distress, co-operative . Vitals reviewed and noted as below Head; Atraumatic, normocephalic ENT: no ulcers no thrush. Tongue is midline. Oropharynx: no rash or ulcers. EYES: Pupils are equal, round and reactive to light accommodation. Eye muscles and extraocular movement intact. Sclera is anicteric. Neck; supple no lymphadenopathy, no thyromegaly or bruit Lungs: Normal respiratory rate/effort. Breath sounds bilateral equal and clear Heart: Normal rate. s1s2 normal. No rub or gallop. Extremities: no edema. No varicose veins Neurological: Patient is alert, awake and oriented x3 but seems forgetful, sometime trying to make up for it. No other focal deficit. Strength bilateral appropriate and equal Skin: Warm and dry. Normal turgor. No rash. Palpitation: Normal elasticity for age Abdomen: Abdomen is soft. Bowel sounds +. There is no abdominal tenderness, no guarding/rigidity or organomegaly Psych: lack insight and has normal affect/mood MSK: no joint tenderness or swelling. Digits and nails normal, no deformity : kidney or bladder not palpable Labs/imaging/EKG reviewed. Past medical history, past surgical history,social history, allergy reviewed and noted as below FAMILy HX; no hx of CKD. non contributory work up: UA: SG >1.030 with ketones TSTA 5% Ferritin 32 MRI brain left infarct Echo severe pulm HTn with TR and IVC <50% collapses CT 2017: s/p Rt nephrectomy, left kidney unremarkable Vit D 21 PTH 229 Objective - Vital Signs/Intake and Output Vital Signs (last 24 hours): Temp Pulse Resp BP Pulse Ox 98.2 F 60 27 H 121/48 L 100 03/23/17 18:00 03/24/17 14:00 03/24/17 14:00 03/24/17 14:00 03/24/17 14:00 - Medications Medications: Current Medications Acetaminophen (Tylenol 325mg Tab) 650 mg PO Q6H PRN PRN Reason: Pain, Mild (1-3) Amlodipine Besylate (Norvasc) 10 mg PO DAILY [facility] Last Admin: 03/22/17 09:50 Dose: 10 mg Apixaban (Eliquis) 2.5 mg PO BID [facility] PRN Reason: Protocol Aspirin (Aspirin Chewable) 81 mg PO DAILY [facility] Last Admin: 03/23/17 09:37 Dose: Not Given Atorvastatin Calcium (Lipitor) 20 mg PO DIN [facility] Last Admin: 03/23/17 18:00 Dose: 20 mg Docusate Sodium (Colace) 100 mg PO DAILY [facility] Last Admin: 03/24/17 08:54 Dose: 100 mg Donepezil HCl (Aricept) 10 mg PO HS [facility] Last Admin: 03/23/17 21:46 Dose: 10 mg Ferrous Gluconate (Fergon) 324 mg PO TID [facility] Last Admin: 03/24/17 08:54 Dose: 324 mg Furosemide (Lasix) 40 mg IV DAILY [facility] Last Admin: 03/22/17 09:48 Dose: 40 mg Acetaminophen (Ofirmev) 1,000 mg in 100 mls @ 400 mls/hr IVPB Q6H PRN PRN Reason: Pain, severe (8-10) Stop: 03/25/17 17:53 Isosorbide Mononitrate (Imdur Er) 30 mg PO DAILY [facility] Last Admin: 03/23/17 09:37 Dose: Not Given Levalbuterol HCl (Xopenex) 0.63 mg IH [id number] PRN PRN Reason: Shortness of Breath Last Admin: 03/20/17 04:45 Dose: 0.63 mg Levetiracetam (Keppra) 500 mg PO BID [facility] Last Admin: 03/23/17 17:55 Dose: 500 mg Multivitamins (Thera Tab) 1 tab PO 0800 [facility] Last Admin: 03/24/17 08:54 Dose: 1 tab Oxycodone/Acetaminophen (Percocet 2.5/325 Mg Tab) 1 tab PO Q6H PRN PRN Reason: Pain, moderate (4-7) Last Admin: 03/24/17 13:40 Dose: 1 tab Pantoprazole Sodium (Protonix Ec Tab) 40 mg PO 0600 [facility] Last Admin: 03/23/17 06:22 Dose: 40 mg Polyethylene Glycol (Miralax) 17 gm PO BID [facility] Last Admin: 03/24/17 08:53 Dose: 17 gm - Labs Labs: 03/24/17 05:30 03/24/17 05:30 PT 14.1 SECONDS (9.4-12.5) H 03/24/17 05:30 INR 1.22 (0.93-1.08) H 03/24/17 05:30 APTT 40.1 Seconds (25.1-36.5) H 03/21/17 11:40
--- NOTE | 2017-03-24 15:00 | CP.PCM.PN ---
Subjective - Date & Time of Evaluation Date of Evaluation: 03/24/17 Time of Evaluation: 14:30 - Subjective Subjective: Internal Medicine/Infectious Disease Follow Up: March 24, 2017 81 yo AA female presenting with Dyspnea on Exertion. Recently discharged from [facility] [place]. No fevers, chills, nausea, vomiting, or diarrhea. Mental lability the past 2 weeks. I do not feel that the patient is able to care for herself at home. I also am unable to evaluate if the patient is taking her medications properly at home. Given the laboratories, the patient is showing signs of dehydration and malnutrition. Multiple hospital admissions in the past 2 months. This morning the patient was found unresponsive by nursing staff. Rapid response initiated. The patient was also found to have intermittent arm twitching. Evaluated by House Doctor (Dr. Montanez) and consults to MICU and Neurology requested. As far as patient's opioid use is concerned, she is written for 20 Percocet doses each month. Checking [employer] website in [place] shows no other prescriptions for opioids filled by the patient. She lives alone. Noted Keppra started. Leukocytosis likely secondary to epilepsy episode. 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 The patient is currently arousable. Had some dysarthria with paraphasic errors , ideamotor and construction apraxia as well as expressive aphasia but seems to be resolved today. The patient is noted to have right facial weakness yesterday but this seems to have resolved today as well. Noted all cycle consultant notes today. Marked bradycardia down to the 30s now. Discussed with Dr. Fonseca. Patient requires pacemaker for the chronic atrial fibrillation with marked bradycardia. Pacemaker placed yesterday afternoon. Pulse at 60s today. Creatinine still remains elevated at 2.4 (2.8 yesterday) Neurologically, the patient is back to baseline again. AAO x 2 at baseline. She has been emotionally labile for the last few months. Requested TCU and Psychiatry evaluations. Objective - Vital Signs/Intake and Output Vital Signs (last 24 hours): Temp Pulse Resp BP Pulse Ox 98.2 F 60 27 H 121/48 L 100 03/23/17 18:00 03/24/17 14:00 03/24/17 14:00 03/24/17 14:00 03/24/17 14:00 - Medications Medications: Current Medications Acetaminophen (Tylenol 325mg Tab) 650 mg PO Q6H PRN PRN Reason: Pain, Mild (1-3) Amlodipine Besylate (Norvasc) 10 mg PO DAILY [facility] Last Admin: 03/22/17 09:50 Dose: 10 mg Apixaban (Eliquis) 2.5 mg PO BID [facility] PRN Reason: Protocol Aspirin (Aspirin Chewable) 81 mg PO DAILY [facility] Last Admin: 03/23/17 09:37 Dose: Not Given Atorvastatin Calcium (Lipitor) 20 mg PO DIN [facility] Last Admin: 03/23/17 18:00 Dose: 20 mg Docusate Sodium (Colace) 100 mg PO DAILY [facility] Last Admin: 03/24/17 08:54 Dose: 100 mg Donepezil HCl (Aricept) 10 mg PO HS [facility] Last Admin: 03/23/17 21:46 Dose: 10 mg Ferrous Gluconate (Fergon) 324 mg PO TID [facility] Last Admin: 03/24/17 08:54 Dose: 324 mg Furosemide (Lasix) 40 mg IV DAILY [facility] Last Admin: 03/22/17 09:48 Dose: 40 mg Acetaminophen (Ofirmev) 1,000 mg in 100 mls @ 400 mls/hr IVPB Q6H PRN PRN Reason: Pain, severe (8-10) Stop: 03/25/17 17:53 Isosorbide Mononitrate (Imdur Er) 30 mg PO DAILY [facility] Last Admin: 03/23/17 09:37 Dose: Not Given Levalbuterol HCl (Xopenex) 0.63 mg IH [id number] PRN PRN Reason: Shortness of Breath Last Admin: 03/20/17 04:45 Dose: 0.63 mg Levetiracetam (Keppra) 500 mg PO BID [facility] Last Admin: 03/23/17 17:55 Dose: 500 mg Multivitamins (Thera Tab) 1 tab PO 0800 [facility] Last Admin: 03/24/17 08:54 Dose: 1 tab Oxycodone/Acetaminophen (Percocet 2.5/325 Mg Tab) 1 tab PO Q6H PRN PRN Reason: Pain, moderate (4-7) Last Admin: 03/24/17 13:40 Dose: 1 tab Pantoprazole Sodium (Protonix Ec Tab) 40 mg PO 0600 [facility] Last Admin: 01/16/18 06:22 Dose: 40 mg Polyethylene Glycol (Miralax) 17 gm PO BID [facility] Last Admin: 03/24/17 08:53 Dose: 17 gm - Labs Labs: 03/24/17 05:30 03/24/17 05:30 PT 14.1 SECONDS (9.4-12.5) H 03/24/17 05:30 INR 1.22 (0.93-1.08) H 03/24/17 05:30 APTT 40.1 Seconds (25.1-36.5) H 03/21/17 11:40 - Constitutional Appears: Non-toxic, No Acute Distress, Chronically Ill - Head Exam Head Exam: ATRAUMATIC, NORMOCEPHALIC - Eye Exam Eye Exam: EOMI, PERRL Pupil Exam: NORMAL ACCOMODATION, PERRL - ENT Exam ENT Exam: Mucous Membranes Moist, Normal External Ear Exam, TM's Normal Bilaterally - Neck Exam Neck Exam: Full ROM, Normal Inspection - Respiratory Exam Respiratory Exam: Clear to Ausculation Bilateral, NORMAL BREATHING PATTERN. absent: Rales, Rhonchi, Wheezes - Cardiovascular Exam Cardiovascular Exam: REGULAR RHYTHM, RRR, +S1, +S2 - GI/Abdominal Exam GI & Abdominal Exam: Soft, Normal Bowel Sounds. absent: Distended, Tenderness - Extremities Exam Extremities Exam: Full ROM, Normal Inspection - Neurological Exam Neurological Exam: Alert, Awake, CN II-XII Intact - Psychiatric Exam Psychiatric exam: Agitated, Depressed Additional comments: Emotionally labile. - Skin Skin Exam: Intact, Normal Color Assessment and Plan - Assessment and Plan (Free Text) Assessment: 81 yo AA female with complaints of Dyspnea on Exertion. Unclear if the patient takes her medication properly at home. The patient has run off previous home nursing help in the past few months. Recent hospitalizations to [facility] and [facility] [place]. Chronically low heart rate. Periods of confusion. Evaluations by Cardiology Dr. Fonseca, Nephrology Dr. Lemon, and Psychiatry (on hold given recent events). Dehydration and malnutrition. The patient appears to have difficulty in caring for herself at home. This morning the patient found poorly responsive with epilepsy episode. The patient required transfer to MICU and was also seen by Neurology. The patient had leukocytosis which is likely transient to the epilepsy episode. Supportive care. Seen by Dr. Sanchez. Neurologic sequela appears to have improved from yesterday. Evaluation for seizures in progress. Recheck CBC and CMP in AM. Noted adjustment to medications. Remains in MICU. For pacemaker. Severe Pulmonary HTN. Pacemaker placed yesterday. Still with elevated creatinine but slowly improving. Heart rate after pacemaker in 60s. Spoke with patient's son Benjamin who is the POA. TCU and Psychiatry evaluations ordered.
--- NOTE | 2017-03-24 19:12 | PN ---
CARDIOLOGY FOLLOWUP DATE: 03/24/2017 SUBJECTIVE: The patient is asymptomatic. PHYSICAL EXAMINATION: VITAL SIGNS: Blood pressure is 132/60 and heart rate paced rhythm. NECK: Negative JVD. LUNGS: Without rales. HEART: S1 and S2. EXTREMITIES: Without edema. LABORATORY DATA: BUN and creatinine 57 and 2.4. Hemoglobin is 9.8. IMPRESSION: 1. Status post symptomatic bradycardia. 2. Status post pacemaker placement. 3. Anemia. 4. Renal insufficiency. 5. Weakness. 6. Severe pulmonary hypertension. PLAN: Given these findings, the patient will need extensive physical therapy. We will transfer to Med-Surg floor. Oswald Fonseca MD
[2017-03-25 03:15] VITALS: TEMP 98.2
[2017-03-25] MEDS: Pantoprazole 40 mg EC Tab PO SCH (06:45)
[2017-03-25 07:54] LABS: HEMOGLOBIN 9.1 g/dL (12.0-16.0); MEAN CELL VOLUME 70.9 fl (80.0-105.0); MEAN CORPUSCULAR HEMOGLOBIN 20.9 pg (25.0-35.0); MEAN CORPUSCULAR HGB CONC 29.4 g/dl (31.0-37.0); PLATELET COUNT 225 10^3/uL (120.0-450.0); RBC 4.36 10^6/uL (3.5-6.1); RED CELL DISTRIBUTION WIDTH 23.5 % (11.5-14.5); WHITE BLOOD COUNT 7.5 10^3/ul (4.5-11.0)
[2017-03-25 08:09] LABS: INR 1.97 (0.93-1.08)
--- NOTE | 2017-03-25 08:15 | CP.PCM.PN ---
Subjective - Date & Time of Evaluation Date of Evaluation: 03/25/17 Time of Evaluation: 08:12 - Subjective Subjective: Ms. hair was seen and examined at the bedside. She is alert, oriented with episodes of crying spell. She states of experiencing pain in her PPM site. There is no redness, drainage, but mild tenderness. She states of experiencing poor appetite. She is able to follow simple commands and answer questions appropriately. There was no untoward events overnight. Objective - Vital Signs/Intake and Output Vital Signs (last 24 hours): Temp Pulse Resp BP Pulse Ox 98.2 F 59 L 20 127/64 100 03/25/17 00:00 03/25/17 00:00 03/25/17 00:00 03/25/17 00:00 03/25/17 00:00 Intake and Output: 03/25/17 03/25/17 06:59 18:59 Intake Total 240 Balance 240 - Medications Medications: Current Medications Acetaminophen (Tylenol 325mg Tab) 650 mg PO Q6H PRN PRN Reason: Pain, Mild (1-3) Amlodipine Besylate (Norvasc) 10 mg PO DAILY [facility] Last Admin: 03/22/17 09:50 Dose: 10 mg Apixaban (Eliquis) 2.5 mg PO BID [facility] PRN Reason: Protocol Last Admin: 03/24/17 17:27 Dose: 2.5 mg Aspirin (Aspirin Chewable) 81 mg PO DAILY [facility] Last Admin: 03/24/17 10:00 Dose: 81 mg Atorvastatin Calcium (Lipitor) 20 mg PO DIN [facility] Last Admin: 03/24/17 17:32 Dose: 20 mg Docusate Sodium (Colace) 100 mg PO DAILY [facility] Last Admin: 03/24/17 17:36 Dose: Not Given Donepezil HCl (Aricept) 10 mg PO HS [facility] Last Admin: 03/24/17 22:44 Dose: 10 mg Ferrous Gluconate (Fergon) 324 mg PO TID [facility] Last Admin: 03/24/17 17:35 Dose: Not Given Furosemide (Lasix) 40 mg IV DAILY [facility] Last Admin: 03/22/17 09:48 Dose: 40 mg Acetaminophen (Ofirmev) 1,000 mg in 100 mls @ 400 mls/hr IVPB Q6H PRN PRN Reason: Pain, severe (8-10) Stop: 03/25/17 17:53 Isosorbide Mononitrate (Imdur Er) 30 mg PO DAILY [facility] Last Admin: 03/24/17 10:00 Dose: 30 mg Levalbuterol HCl (Xopenex) 0.63 mg IH [id number] PRN PRN Reason: Shortness of Breath Last Admin: 03/20/17 04:45 Dose: 0.63 mg Levetiracetam (Keppra) 500 mg PO BID [facility] Last Admin: 03/24/17 17:35 Dose: 500 mg Multivitamins (Thera Tab) 1 tab PO 0800 [facility] Last Admin: 03/24/17 08:54 Dose: 1 tab Oxycodone/Acetaminophen (Percocet 2.5/325 Mg Tab) 1 tab PO Q6H PRN PRN Reason: Pain, moderate (4-7) Last Admin: 03/24/17 22:44 Dose: 1 tab Pantoprazole Sodium (Protonix Ec Tab) 40 mg PO 0600 [facility] Last Admin: 03/25/17 06:45 Dose: 40 mg Polyethylene Glycol (Miralax) 17 gm PO BID [facility] Last Admin: 03/24/17 17:34 Dose: Not Given - Labs Labs: 03/25/17 07:00 03/24/17 05:30 PT 23.0 SECONDS (9.4-12.5) H 03/25/17 07:00 INR 1.97 (0.93-1.08) H 03/25/17 07:00 APTT 40.1 Seconds (25.1-36.5) H 03/21/17 11:40 - Constitutional Appears: No Acute Distress - Head Exam Head Exam: NORMAL INSPECTION - Neurological Exam Neurological Exam: Alert, Awake Neuro motor strength exam: Left Upper Extremity: 5, Right Upper Extremity: 4 ( due to PPM), Left Lower Extremity: 5, Right Lower Extremity: 5 Additional comments: Neurologcal unchanged from previous examination. Assessment and Plan (1) Seizure Assessment & Plan: Case discussed with Dr. Alston, continue all current medical regimen. Pending EEG result. Status: Acute
[2017-03-25 08:22] VITALS: BP 159/62; PULSE 70; RESP 18; O2SAT 96
[2017-03-25] MEDS: Oxycodone/Acetaminophen 2.5/325 mg Tab PO PRN ×2 (08:55→17:28)
[2017-03-25 09:02] LABS: ALB/GLOB RATIO 0.9 (1.1-1.8); ALBUMIN 3.4 g/dL (3.0-4.8); CALCIUM 9.3 mg/dL (8.4-10.5)
[2017-03-25] MEDS: POLYETHYLENE GLYCOL 3350 17 GM/Dose PACKET PO SCH ×2 (09:52→17:28)
[2017-03-25] MEDS: Multivitamin Therapeutic Tab PO SCH (09:53)
--- NOTE | 2017-03-25 15:39 | CP.PCM.PN ---
Subjective - Date & Time of Evaluation Date of Evaluation: 03/25/17 Time of Evaluation: 15:38 - Subjective Subjective: Follow up Nephrology Consultation: Assessment: stable acute Kidney injury initially with high anion gap acidosis likely starvation ketoacidosis and pre-renal state as urine very concentrated, now hemodynamic as with low BP AMS possible seizure, lactic acidosis Chronic Kidney Disease Stage 3 (N18.3) possibly due to HTN, age related decline , and s/p Rt nephrectomy due to hx of RCC ? symptomatic Anemia chronic, Hypertension controlled (I12.9) Vit D insufficiency with secondary hyperparathyroidism severe pulmonary HTN and moderate to severe LVH hx of dementia Bradycardia ( A fib with slow ventricular rate) s/p PPM Plan no acute need of renal replacement therapy at this time no ACEI/ARB due to PATRICIA. BP stable. serum cr better and improving each day She is already on statin anemia management as per heme. continue with iron supplements and MVI pt had PPM 03/23/17 Dose meds/antibiotics for reduced GFR. Avoid fleets enema/magnesium based laxatives. Avoid nephrotoxins/NSAIDs anemia management as per heme Further work up as per primary team pt stable for d/c from renal perspective when planned Thanks for allowing me to participate in care of your patient. Will follow patient with you. Please call if any Qs. d/w team Dr Jt Lemon Office: [phone] Reason for consult: CKD and PATRICIA HPI: Pt is a 81 y/o F with hx of hypertension (20 years) , renal cell cancer s/ p unilateral total nephrectomy, CKD stage 3 with baseline cr 1.4-1.7 since 2017 but intermittent episodes of PATRICIA, chronic anemia, A fib recently admitted to [facility] [place] now here with c/o SOB for last 1 day. transferred to ICU due to AMS and possible seizures now she feels better. denies SOB/chest pain/nausea or urinary complaints. Physical Examination: General Appearance: Comfortable, in no acute respiratory distress, co-operative . Vitals reviewed and noted as below Head; Atraumatic, normocephalic ENT: no ulcers no thrush. Tongue is midline. Oropharynx: no rash or ulcers. EYES: Pupils are equal, round and reactive to light accommodation. Eye muscles and extraocular movement intact. Sclera is anicteric. Neck; supple no lymphadenopathy, no thyromegaly or bruit Lungs: Normal respiratory rate/effort. Breath sounds bilateral equal and clear Heart: Normal rate. s1s2 normal. No rub or gallop. Extremities: no edema. No varicose veins Neurological: Patient is alert, awake and oriented x3 but seems forgetful, sometime trying to make up for it. No other focal deficit. Strength bilateral appropriate and equal Skin: Warm and dry. Normal turgor. No rash. Palpitation: Normal elasticity for age Abdomen: Abdomen is soft. Bowel sounds +. There is no abdominal tenderness, no guarding/rigidity or organomegaly Psych: lack insight and has normal affect/mood MSK: no joint tenderness or swelling. Digits and nails normal, no deformity : kidney or bladder not palpable Labs/imaging/EKG reviewed. Past medical history, past surgical history,social history, allergy reviewed and noted as below FAMILy HX; no hx of CKD. non contributory work up: UA: SG >1.030 with ketones TSTA 5% Ferritin 32 MRI brain left infarct Echo severe pulm HTn with TR and IVC <50% collapses CT 2017: s/p Rt nephrectomy, left kidney unremarkable Vit D 21 PTH 229 Objective - Vital Signs/Intake and Output Vital Signs (last 24 hours): Temp Pulse Resp BP Pulse Ox 98.2 F 70 18 159/62 H 96 03/25/17 08:22 03/25/17 08:22 03/25/17 08:22 03/25/17 08:22 03/25/17 08:22 Intake and Output: 03/25/17 03/25/17 06:59 18:59 Intake Total 240 640 Balance 240 640 - Medications Medications: Current Medications Acetaminophen (Tylenol 325mg Tab) 650 mg PO Q6H PRN PRN Reason: Pain, Mild (1-3) Amlodipine Besylate (Norvasc) 10 mg PO DAILY [facility] Last Admin: 03/22/17 09:50 Dose: 10 mg Apixaban (Eliquis) 2.5 mg PO BID [facility] PRN Reason: Protocol Last Admin: 03/25/17 09:52 Dose: 2.5 mg Aspirin (Aspirin Chewable) 81 mg PO DAILY [facility] Last Admin: 03/25/17 09:53 Dose: 81 mg Atorvastatin Calcium (Lipitor) 20 mg PO DIN [facility] Last Admin: 03/24/17 17:32 Dose: 20 mg Docusate Sodium (Colace) 100 mg PO DAILY [facility] Last Admin: 03/25/17 09:52 Dose: 100 mg Donepezil HCl (Aricept) 10 mg PO HS [facility] Last Admin: 03/24/17 22:44 Dose: 10 mg Ferrous Gluconate (Fergon) 324 mg PO TID [facility] Last Admin: 03/25/17 13:23 Dose: 324 mg Furosemide (Lasix) 40 mg IV DAILY [facility] Last Admin: 03/22/17 09:48 Dose: 40 mg Acetaminophen (Ofirmev) 1,000 mg in 100 mls @ 400 mls/hr IVPB Q6H PRN PRN Reason: Pain, severe (8-10) Stop: 03/25/17 17:53 Isosorbide Mononitrate (Imdur Er) 30 mg PO DAILY [facility] Last Admin: 03/25/17 09:52 Dose: 30 mg Levalbuterol HCl (Xopenex) 0.63 mg IH [id number] PRN PRN Reason: Shortness of Breath Last Admin: 03/20/17 04:45 Dose: 0.63 mg Levetiracetam (Keppra) 500 mg PO BID [facility] Last Admin: 03/25/17 09:52 Dose: 500 mg Multivitamins (Thera Tab) 1 tab PO 0800 [facility] Last Admin: 03/25/17 09:53 Dose: 1 tab Oxycodone/Acetaminophen (Percocet 2.5/325 Mg Tab) 1 tab PO Q6H PRN PRN Reason: Pain, moderate (4-7) Last Admin: 03/25/17 08:55 Dose: 1 tab Pantoprazole Sodium (Protonix Ec Tab) 40 mg PO 0600 [facility] Last Admin: 03/25/17 06:45 Dose: 40 mg Polyethylene Glycol (Miralax) 17 gm PO BID [facility] Last Admin: 03/25/17 09:52 Dose: 17 gm - Labs Labs: 03/25/17 07:00 03/25/17 07:00 PT 23.0 SECONDS (9.4-12.5) H 03/25/17 07:00 INR 1.97 (0.93-1.08) H 03/25/17 07:00 APTT 40.1 Seconds (25.1-36.5) H 03/21/17 11:40
--- NOTE | 2017-03-25 17:21 | CP.PCM.PN ---
Subjective - Date & Time of Evaluation Date of Evaluation: 03/24/17 Time of Evaluation: 18:15 - Subjective Subjective: Feeling better Objective - Vital Signs/Intake and Output Vital Signs (last 24 hours): Temp Pulse Resp BP Pulse Ox 98.2 F 70 18 159/62 H 96 03/25/17 08:22 03/25/17 08:22 03/25/17 08:22 03/25/17 08:22 03/25/17 08:22 Intake and Output: 03/25/17 03/25/17 06:59 18:59 Intake Total 240 640 Balance 240 640 - Medications Medications: Current Medications Acetaminophen (Tylenol 325mg Tab) 650 mg PO Q6H PRN PRN Reason: Pain, Mild (1-3) Amlodipine Besylate (Norvasc) 10 mg PO DAILY [facility] Last Admin: 03/22/17 09:50 Dose: 10 mg Apixaban (Eliquis) 2.5 mg PO BID [facility] PRN Reason: Protocol Last Admin: 03/25/17 09:52 Dose: 2.5 mg Aspirin (Aspirin Chewable) 81 mg PO DAILY [facility] Last Admin: 03/25/17 09:53 Dose: 81 mg Atorvastatin Calcium (Lipitor) 20 mg PO DIN [facility] Last Admin: 03/24/17 17:32 Dose: 20 mg Docusate Sodium (Colace) 100 mg PO DAILY [facility] Last Admin: 03/25/17 09:52 Dose: 100 mg Donepezil HCl (Aricept) 10 mg PO HS [facility] Last Admin: 03/24/17 22:44 Dose: 10 mg Ferrous Gluconate (Fergon) 324 mg PO TID [facility] Last Admin: 03/25/17 13:23 Dose: 324 mg Furosemide (Lasix) 40 mg IV DAILY [facility] Last Admin: 03/22/17 09:48 Dose: 40 mg Acetaminophen (Ofirmev) 1,000 mg in 100 mls @ 400 mls/hr IVPB Q6H PRN PRN Reason: Pain, severe (8-10) Stop: 03/25/17 17:53 Isosorbide Mononitrate (Imdur Er) 30 mg PO DAILY [facility] Last Admin: 03/25/17 09:52 Dose: 30 mg Levalbuterol HCl (Xopenex) 0.63 mg IH [id number] PRN PRN Reason: Shortness of Breath Last Admin: 03/20/17 04:45 Dose: 0.63 mg Levetiracetam (Keppra) 500 mg PO BID [facility] Last Admin: 03/25/17 09:52 Dose: 500 mg Multivitamins (Thera Tab) 1 tab PO 0800 [facility] Last Admin: 03/25/17 09:53 Dose: 1 tab Oxycodone/Acetaminophen (Percocet 2.5/325 Mg Tab) 1 tab PO Q6H PRN PRN Reason: Pain, moderate (4-7) Last Admin: 03/25/17 08:55 Dose: 1 tab Pantoprazole Sodium (Protonix Ec Tab) 40 mg PO 0600 [facility] Last Admin: 03/25/17 06:45 Dose: 40 mg Polyethylene Glycol (Miralax) 17 gm PO BID [facility] Last Admin: 03/25/17 09:52 Dose: 17 gm - Labs Labs: 03/25/17 07:00 03/25/17 07:00 PT 23.0 SECONDS (9.4-12.5) H 03/25/17 07:00 INR 1.97 (0.93-1.08) H 03/25/17 07:00 APTT 40.1 Seconds (25.1-36.5) H 03/21/17 11:40 - Head Exam Head Exam: ATRAUMATIC - Eye Exam Eye Exam: Normal appearance - ENT Exam ENT Exam: Mucous Membranes Dry - Respiratory Exam Respiratory Exam: NORMAL BREATHING PATTERN - Cardiovascular Exam Cardiovascular Exam: +S1, +S2 - GI/Abdominal Exam GI & Abdominal Exam: Normal Bowel Sounds Assessment and Plan (1) Anemia Assessment & Plan: iron deficiency s/p IV iron and currently on PO iron Status: Chronic (2) Coagulopathy Assessment & Plan: on anticoagulation Status: Acute
--- NOTE | 2017-03-25 17:23 | CP.PCM.PN ---
Subjective - Date & Time of Evaluation Date of Evaluation: 03/25/17 Time of Evaluation: 17:00 - Subjective Subjective: Feels better Objective - Vital Signs/Intake and Output Vital Signs (last 24 hours): Temp Pulse Resp BP Pulse Ox 98.2 F 70 18 159/62 H 96 03/25/17 08:22 03/25/17 08:22 03/25/17 08:22 03/25/17 08:22 03/25/17 08:22 Intake and Output: 03/25/17 03/25/17 06:59 18:59 Intake Total 240 640 Balance 240 640 - Medications Medications: Current Medications Acetaminophen (Tylenol 325mg Tab) 650 mg PO Q6H PRN PRN Reason: Pain, Mild (1-3) Amlodipine Besylate (Norvasc) 10 mg PO DAILY [facility] Last Admin: 03/22/17 09:50 Dose: 10 mg Apixaban (Eliquis) 2.5 mg PO BID [facility] PRN Reason: Protocol Last Admin: 03/25/17 09:52 Dose: 2.5 mg Aspirin (Aspirin Chewable) 81 mg PO DAILY [facility] Last Admin: 03/25/17 09:53 Dose: 81 mg Atorvastatin Calcium (Lipitor) 20 mg PO DIN [facility] Last Admin: 03/24/17 17:32 Dose: 20 mg Docusate Sodium (Colace) 100 mg PO DAILY [facility] Last Admin: 03/25/17 09:52 Dose: 100 mg Donepezil HCl (Aricept) 10 mg PO HS [facility] Last Admin: 03/24/17 22:44 Dose: 10 mg Ferrous Gluconate (Fergon) 324 mg PO TID [facility] Last Admin: 03/25/17 13:23 Dose: 324 mg Furosemide (Lasix) 40 mg IV DAILY [facility] Last Admin: 03/22/17 09:48 Dose: 40 mg Acetaminophen (Ofirmev) 1,000 mg in 100 mls @ 400 mls/hr IVPB Q6H PRN PRN Reason: Pain, severe (8-10) Stop: 03/25/17 17:53 Isosorbide Mononitrate (Imdur Er) 30 mg PO DAILY [facility] Last Admin: 03/25/17 09:52 Dose: 30 mg Levalbuterol HCl (Xopenex) 0.63 mg IH [id number] PRN PRN Reason: Shortness of Breath Last Admin: 03/20/17 04:45 Dose: 0.63 mg Levetiracetam (Keppra) 500 mg PO BID [facility] Last Admin: 03/25/17 09:52 Dose: 500 mg Multivitamins (Thera Tab) 1 tab PO 0800 [facility] Last Admin: 03/25/17 09:53 Dose: 1 tab Oxycodone/Acetaminophen (Percocet 2.5/325 Mg Tab) 1 tab PO Q6H PRN PRN Reason: Pain, moderate (4-7) Last Admin: 03/25/17 08:55 Dose: 1 tab Pantoprazole Sodium (Protonix Ec Tab) 40 mg PO 0600 [facility] Last Admin: 03/25/17 06:45 Dose: 40 mg Polyethylene Glycol (Miralax) 17 gm PO BID [facility] Last Admin: 03/25/17 09:52 Dose: 17 gm - Labs Labs: 03/25/17 07:00 03/25/17 07:00 PT 23.0 SECONDS (9.4-12.5) H 03/25/17 07:00 INR 1.97 (0.93-1.08) H 03/25/17 07:00 APTT 40.1 Seconds (25.1-36.5) H 03/21/17 11:40 - Head Exam Head Exam: ATRAUMATIC - Eye Exam Eye Exam: Normal appearance - ENT Exam ENT Exam: Mucous Membranes Dry - Respiratory Exam Respiratory Exam: NORMAL BREATHING PATTERN - Cardiovascular Exam Cardiovascular Exam: +S1, +S2 - GI/Abdominal Exam GI & Abdominal Exam: Normal Bowel Sounds Assessment and Plan (1) Anemia Assessment & Plan: iron deficiency s/p IV iron, now on oral iron s/p PRBC transfusion Status: Chronic (2) Coagulopathy Assessment & Plan: secondary to anticoagulation Status: Acute
--- NOTE | 2017-03-25 18:56 | PN ---
DATE: 03/25/2017 CARDIOLOGY FOLLOWUP SUBJECTIVE: The patient is in no distress, but is mostly upset. OBJECTIVE: VITAL SIGNS: Blood pressure 127/64, the heart rate in the 60s. NECK: Negative JVD. LUNGS: Without rales. HEART: S1, S2. EXTREMITIES: Without edema. LABORATORY DATA: Hemoglobin is 9.1, BUN and creatinine is 53 and 1.8. IMPRESSION: 1. Status post symptomatic bradycardia. 2. Status post pacemaker placement. 3. Renal insufficiency. 4. Severe pulmonary hypertension. 5. Weakness. 6. Anemia. Given these findings, the patient is stable post pacemaker placement. The patient will need a stay in the TCU. Oswald Fonseca MD
--- NOTE | 2017-03-25 19:10 | CP.PCM.DIS ---
Provider - Provider Date of Admission: 03/18/17 18:06 Attending physician: Amador Crum MD Primary care physician: Amador Crum MD Consults: Dr. Fonseca - Cardiology Dr. Lemon - Nephrology Dr. Sanchez - Hematology Dr. Alston - Neurology Time Spent in preparation of Discharge (in minutes): 30 Hospital Course - Lab Results Lab Results: Micro Results 03/20/17 07:10 Blood-Venous Blood Culture - Final NO GROWTH AFTER 5 DAYS 03/20/17 07:10 Blood-Venous Gram Stain - Final TEST NOT PERFORMED 03/20/17 06:45 Blood-Venous Blood Culture - Final NO GROWTH AFTER 5 DAYS 03/20/17 06:45 Blood-Venous Gram Stain - Final TEST NOT PERFORMED 03/21/17 11:20 Nose MRSA Culture (Admit) - Final MRSA NOT DETECTED 03/18/17 22:05 Urine,Clean Catch Urine Culture - Final MULTIPLE SPECIES. SUGGEST REPEAT SPECIMEN. Most Recent Lab Values WBC 7.5 10^3/ul (4.5-11.0) 03/25/17 07:00 RBC 4.36 10^6/uL (3.5-6.1) 03/25/17 07:00 Hgb 9.1 g/dL (12.0-16.0) L 03/25/17 07:00 Hct 30.9 % (36.0-48.0) L 03/25/17 07:00 MCV 70.9 fl (80.0-105.0) L 03/25/17 07:00 MCH 20.9 pg (25.0-35.0) L 03/25/17 07:00 MCHC 29.4 g/dl (31.0-37.0) L 03/25/17 07:00 RDW 23.5 % (11.5-14.5) H 03/25/17 07:00 Plt Count 225 10^3/uL (120.0-450.0) 03/25/17 07:00 MPV 9.6 fl (7.0-11.0) 03/24/17 05:30 Gran % 63.0 % (50.0-68.0) 03/22/17 05:48 Lymph % (Auto) 22.7 % (22.0-35.0) 03/22/17 05:48 Caroline % (Auto) 11.0 % (1.0-6.0) H 03/22/17 05:48 Eos % (Auto) 3.2 % (1.5-5.0) 03/22/17 05:48 Baso % (Auto) 0.1 % (0.0-3.0) 03/22/17 05:48 Gran # 5.50 (1.4-6.5) 03/22/17 05:48 Lymph # 2.0 (1.2-3.4) 03/22/17 05:48 Caroline # 1.0 (0.1-0.6) H 03/22/17 05:48 Eos # 0.3 (0.0-0.7) 03/22/17 05:48 Baso # 0.01 K/mm3 (0.0-2.0) 03/22/17 05:48 PT 23.0 SECONDS (9.4-12.5) H 03/25/17 07:00 INR 1.97 (0.93-1.08) H 03/25/17 07:00 APTT 40.1 Seconds (25.1-36.5) H 03/21/17 11:40 pCO2 24 mm/Hg (35-45) L 03/20/17 06:01 pO2 95.0 mm/Hg (80-100) 03/20/17 06:01 HCO3 10.3 mmol/L (21-28) L 03/20/17 06:01 ABG pH 7.24 (7.35-7.45) L 03/20/17 06:01 ABG Total CO2 11.0 mmol.L (22-28) L 03/20/17 06:01 ABG O2 Saturation 98.2 % (95-98) H 03/20/17 06:01 ABG O2 Content 13.6 ML/dl (15-23) L 03/20/17 06:01 ABG Base Excess -15.5 mmol/L (-2.0-3.0) L 03/20/17 06:01 ABG Hemoglobin 10.1 g/dL (11.7-17.4) L 03/20/17 06:01 ABG Carboxyhemoglobin 2.3 % (0.5-1.5) H 03/20/17 06:01 POC ABG HHb (Measured) 1.7 % (0-5) 03/20/17 06:01 ABG Methemoglobin 1.1 % (0.0-3.0) 03/20/17 06:01 ABG O2 Capacity 13.8 mL/dl (16-24) L 03/20/17 06:01 Hgb O2 Saturation 94.9 % (95.0-98.0) L 03/20/17 06:01 FiO2 28.0 % 03/20/17 06:01 Sodium 138 mmol/L (132-148) 03/25/17 07:00 Potassium 4.6 mmol/L (3.6-5.0) 03/25/17 07:00 Chloride 104 mmol/L (98-107) 03/25/17 07:00 Carbon Dioxide 26 mmol/L (21-33) 03/25/17 07:00 Anion Gap 13 (10-20) 03/25/17 07:00 BUN 53 mg/dL (7-21) H 03/25/17 07:00 Creatinine 1.8 mg/dl (0.7-1.2) H 03/25/17 07:00 Est GFR ( Amer) 33 03/25/17 07:00 Est GFR (Non-Af Amer) 27 03/25/17 07:00 POC Glucose (mg/dL) 125 mg/dL (65-110) H 03/22/17 11:19 Random Glucose 105 mg/dL (70-110) 03/25/17 07:00 Hemoglobin A1c 6.0 % (4.2-6.5) 03/21/17 06:00 Lactic Acid 9.4 mmol/L (0.7-2.1) H* 03/20/17 06:15 Calcium 9.3 mg/dL (8.4-10.5) 03/25/17 07:00 Phosphorus 4.1 mg/dL (2.5-4.5) 03/20/17 07:10 Magnesium 1.8 mg/dL (1.7-2.2) 03/20/17 07:10 Iron 24 ug/dL (45-180) L 03/20/17 06:15 TIBC 468 ug/dL (265-497) 03/20/17 06:15 % Saturation 5 % (20-55) L 03/20/17 06:15 Ferritin 32.8 ng/mL 03/20/17 06:15 Total Bilirubin 0.8 mg/dL (0.2-1.3) 03/25/17 07:00 AST 33 U/L (14-36) 03/25/17 07:00 ALT 34 U/L (7-56) 03/25/17 07:00 Alkaline Phosphatase 79 U/L (38-126) 03/25/17 07:00 Ammonia 44 umol/L (9-33) H 03/20/17 06:15 Lactate Dehydrogenase 718 U/L (333-699) H 03/18/17 16:54 Total Creatine Kinase 102 U/L (35-230) 03/20/17 07:10 Troponin I 0.25 ng/mL H* D 03/20/17 11:30 NT-Pro-B Natriuret Pep 7220 pg/mL (0-450) H 03/18/17 16:54 Total Protein 7.2 g/dL (5.8-8.3) 03/25/17 07:00 Albumin 3.4 g/dL (3.0-4.8) 03/25/17 07:00 Globulin 3.9 gm/dL 03/25/17 07:00 Albumin/Globulin Ratio 0.9 (1.1-1.8) L 03/25/17 07:00 Triglycerides 41 mg/dL (35-160) 03/21/17 06:00 Cholesterol 87 mg/dL (130-200) L 03/21/17 06:00 LDL Cholesterol Direct 38 mg/dL (0-129) 03/21/17 06:00 HDL Cholesterol 36 mg/dL (29-60) 03/21/17 06:00 Vitamin B12 718 pg/mL (239-931) 03/20/17 06:15 Folate > 20.0 ng/mL 03/20/17 06:15 Procalcitonin 0.16 NG/ML (0.19-0.49) L 03/20/17 06:30 TSH 3rd Generation 1.45 mIU/mL (0.46-4.68) 03/20/17 06:15 Urine Color Yellow (YELLOW) 03/20/17 11:50 Urine Appearance Clear (CLEAR) 03/20/17 11:50 Urine pH 6.0 (4.7-8.0) 03/20/17 11:50 Ur Specific [place] 1.010 (1.005-1.035) 03/20/17 11:50 Urine Protein Trace mg/dL (<30 mg/dL) H 03/20/17 11:50 Urine Glucose (UA) Negative mg/dL (NEGATIVE) 03/20/17 11:50 Urine Ketones Negative mg/dL (NEGATIVE) 03/20/17 11:50 Urine Blood Small (NEGATIVE) H 03/20/17 11:50 Urine Nitrate Negative (NEGATIVE) 03/20/17 11:50 Urine Bilirubin Negative (NEGATIVE) 03/20/17 11:50 Urine Urobilinogen 0.2 E.U./dL (<1 E.U./dL) 03/20/17 11:50 Ur Leukocyte Esterase Negative Chidi/uL (NEGATIVE) 03/20/17 11:50 Urine RBC 1 - 3 /hpf (0-2) 03/20/17 11:50 Urine WBC 0 - 2 /hpf (0-6) 03/20/17 11:50 Ur Epithelial Cells 0 - 2 /hpf (0-5) 03/20/17 11:50 Urine Bacteria Many (NEG) 03/18/17 17:33 Ur Random Creatinine 134 mg/dL 03/22/17 12:10 U Random Total Protein 322 mg/g creat (21-161) H 03/22/17 12:10 Ur Random Sodium 41 meq/L 03/22/17 12:10 Stool Occult Blood Negative (NEGATIVE) 03/23/17 08:00 Digoxin < 0.4 ng/mL (0.8-2.0) L 03/18/17 16:54 Blood Type AB POSITIVE 03/18/17 18:35 Antibody Screen Negative 03/18/17 18:35 Crossmatch See Detail 03/18/17 18:35 BBK History Checked Patient has bt 03/18/17 18:35 - Hospital Course Hospital Course: 81 yo AA female presenting with Dyspnea on Exertion. Recently discharged from [facility]. No fevers, chills, nausea, vomiting, or diarrhea. Mental lability the past 2 weeks. I do not feel that the patient is able to care for herself at home. I also am unable to evaluate if the patient is taking her medications properly at home. Given the laboratories, the patient is showing signs of dehydration and malnutrition. Multiple hospital admissions in the past 2 months. This morning the patient was found unresponsive by nursing staff. Rapid response initiated. The patient was also found to have intermittent arm twitching. Evaluated by House Doctor (Dr. Montanez) and consults to MICU and Neurology requested. As far as patient's opioid use is concerned, she is written for 20 Percocet doses each month. Checking [employer] website in [place] shows no other prescriptions for opioids filled by the patient. She lives alone. Noted Keppra started. Leukocytosis likely secondary to epilepsy episode. 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 The patient is currently arousable. Had some dysarthria with paraphasic errors , ideamotor and construction apraxia as well as expressive aphasia but seems to be resolved today. The patient is noted to have right facial weakness yesterday but this seems to have resolved today as well. Noted all employment consultant notes today. Marked bradycardia down to the 30s now. Discussed with Dr. Fonseca. Patient requires pacemaker for the chronic atrial fibrillation with marked bradycardia. Pacemaker placed yesterday afternoon. Pulse at 60s today. Creatinine still remains elevated at 2.4 (2.8 yesterday) Neurologically, the patient is back to baseline again. AAO x 2 at baseline. She has been emotionally labile for the last few months. Requested TCU and Psychiatry evaluations. Accepted to TCU. Psychiatry stated that patient was competent to make her own decisions. - Date & Time of H&P Date of H&P: 03/18/17 Time of H&P: 23:05 Discharge Exam - Head Exam Head Exam: ATRAUMATIC, NORMOCEPHALIC - Eye Exam Eye Exam: EOMI, PERRL Pupil Exam: NORMAL ACCOMODATION, PERRL - ENT Exam ENT Exam: Mucous Membranes Moist, Normal External Ear Exam, TM's Normal Bilaterally - Neck Exam Neck exam: Full Rom, Normal Inspection - Respiratory Exam Respiratory Exam: Clear to PA & Lateral, NORMAL BREATHING PATTERN. absent: Rales, Rhonchi, Wheezes - Cardiovascular Exam Cardiovascular Exam: REGULAR RHYTHM, RRR, +S1, +S2 - GI/Abdominal Exam GI & Abdominal Exam: Normal Bowel Sounds, Soft. absent: Distended, Tenderness - Extremities Exam Extremities exam: full ROM, normal inspection - Neurological Exam Neurological exam: Alert, CN II-XII Intact, Oriented x3 - Psychiatric Exam Psychiatric exam: Agitated, Depressed Additional comments: Emotionally Labile. - Skin Skin Exam: Intact, Normal Color Discharge Plan - Follow Up Plan Condition: IMPROVED Disposition: REHAB FACILITY/REHAB UNIT Instructions: Heart Failure (DC), Pacemaker (GEN), Pneumococcal Vaccine for Adults (DC), Heart Healthy Diet (GEN), Influenza Vaccine (DC), Bradycardia (DC) , Fall Prevention (GEN), Myocardial Infarction (DC), Myocardial Infarction (GEN) , Altered Mental Status (GEN) Additional Instructions: 81 yo AA female with complaints of Dyspnea on Exertion. Unclear if the patient takes her medication properly at home. The patient has run off previous home nursing help in the past few months. Recent hospitalizations to [facility] and [facility]. Chronically low heart rate. Periods of confusion. Evaluations by Cardiology Dr. Fonseca, Nephrology Dr. Lemon, and Psychiatry. Dehydration and malnutrition. The patient appears to have difficulty in caring for herself at home. This morning the patient found poorly responsive with epilepsy episode. The patient required transfer to MICU and was also seen by Neurology. The patient had leukocytosis which is likely transient to the epilepsy episode. Supportive care. Seen by Dr. Sanchez. Neurologic sequela appears to have improved from yesterday. Evaluation for seizures in progress. Recheck CBC and CMP in AM. Noted adjustment to medications. Remains in MICU. For pacemaker. Severe Pulmonary HTN. Pacemaker placed yesterday. Still with elevated creatinine but slowly improving. Heart rate after pacemaker in 60s. Spoke with patient's son Benjamin who is the POA. TCU and Psychiatry evaluations done.
--- NOTE | 2017-03-26 03:15 | CON ---
DATE: HISTORY OF PRESENT ILLNESS: The patient is an 81-year-old female with multiple medical problems including atrial fibrillation. The patient came to the hospital for evaluation of dyspnea on exertion. Psych consult was called for evaluation of capacity to make decision about disposition plan and living independently. This junior copywriter is very familiar with this patient from the previous admission on the medical side and this junior copywriter was datapower consultant on this case in 08/2016. This junior copywriter recommended back then for the family to be involved as well as initiate dialogue about advanced directive. I feel that it was not done from the previous admission and this junior copywriter is facing the same problem at this time as well. The patient was seen and examined. The patient presented to be alert. The patient knows the name of the hospital. The patient knows the circumstances of her admission to the medical side and it seems to be consistent. The patient was off with the years. The patient said that now is 2015, but the patient was able to give the correct month and date. The patient said she lives independently. She is able to manage her finances. The patient also said that she is able to pay her bills, never had history of being lost in the community. The patient denied any history of memory problems. The patient denied being depressed. The patient denied feeling hopeless or helpless. The patient denied suicidal ideation, denied thoughts of harming herself. The patient does not present to be psychotic. The patient denied previous history of mental illness. The patient denied being admitted to the psychiatric inpatient unit. The patient denied suicidal attempts in the past, never been evaluated by psychiatrist besides elevation of the capacity in 08/2016. The patient reports that she has supportive family. She has [id number] and 2 nephews who are close to her and at times checking up on her. The patient also reported that her two sons are living out of state. The patient gave permission to this junior copywriter to provide information and contact number to the adoption social worker for her son, Benjamin Garza. His phone number is [phone]. The patient has another son, Barrington Snyder, but the patient was not able to find his phone number. PHYSICAL EXAMINATION: Vital signs reviewed, seems to be stable. Temperature 98.2, pulse 70, blood pressure 159/62, respirations 18, oxygen saturation is 96. MEDICATIONS: Reviewed. Tylenol, Ofirmev, acetaminophen, Norvasc, Eliquis, aspirin, Lipitor, Colace, Aricept 10 mg at the nighttime, Fergon, Lasix, isosorbide, Keppra, multivitamins, Percocet, Protonix, and MiraLax. LABS: Reviewed and seems to be stable. Chemistry also reviewed. MENTAL STATUS EXAM: The patient presented to be alert and oriented, pleasant, cooperative, intermittent eye contact. Speech was monotonic, low volume. Mood described, "I am fine, why should I be depressed?" Affect was reactive, mood congruent. Thought process seems to be goal directed. Thought content, the patient denied visual, auditory, or tactile hallucinations. Denied paranoid ideation. The patient denied thoughts of harming herself or others. Denied intent or plan. Insight and judgment seems to be fair. Impulses are well controlled. IMPRESSION: This junior copywriter could not find any pathology but possible normal aging. The patient has multiple medical issues. No signs of depression, psychosis or anxiety. The patient has fair appetite and sleep. PLAN: This junior copywriter had prolonged conversation with case management, advised to contact the patient's son, Benjamin Garza, phone number [phone], also the patient reported that she has a [id number] and 2 nephews, which lives in [place]. This junior copywriter would recommend to make an effort to contact the patient's family and find out what is the patient's level of functioning and if she is able to take care of herself in the community. The patient does not present depressed, does not present to be psychotic. The patient is willing to participate in treatment plan, but we need to initiate the dialogue with the family and discuss advanced directives in the future and if the patient is willing to point anyone from her family to be her POA, it will give us hope in the future. The patient will have family who is able to help the patient with decisions. Meanwhile continue current management. Taking care of this case took more than 40 minutes. Social work also need to be involved for additional services in the community. Home health aide or any day treatment program would be beneficial. The patient is not suicidal, not homicidal, but additional information needs to be obtained from the patient's family. Should you have any questions, give me a call back. Thank you very much for letting me participate in care of your patient. Clarita Rabago MD [facility] # [id number] [place]
== END 2017-03-25 18:45 | DRG 242 ==
LOC: ED 15:34 → ERH 18:06 → 3RSO 21:26 → ICU 03-20 07:28 → 5RSO 03-24 18:32
PROVIDERS: ADMIT Internal Medicine Infectious Disease; ATTEND Internal Medicine Infectious Disease
PROC: 0JH604Z Insertion of Pacemaker, Single Chamber into Chest Subcutaneous Tissue and Fascia, Open Approach (ICD-10-PCS; principal; 2017-03-23)
PROC: 02HK3JZ Insertion of Pacemaker Lead into Right Ventricle, Percutaneous Approach (ICD-10-PCS; 2017-03-23)
DX: R00.1 Bradycardia, unspecified (principal); I63.9 Cerebral infarction, unspecified; N17.9 Acute kidney failure, unspecified; E87.2 Acidosis; E46 Unspecified protein-calorie malnutrition; I13.0 Hypertensive heart and chronic kidney disease with heart failure and stage 1 through stage 4 chronic kidney disease, or unspecified chronic kidney disease; I50.9 Heart failure, unspecified; N18.3 Chronic kidney disease, stage 3 (moderate); N25.81 Secondary hyperparathyroidism of renal origin; R47.01 Aphasia; G40.89 Other seizures; I27.20 Pulmonary hypertension, unspecified; F03.90 Unspecified dementia, unspecified severity, without behavioral disturbance, psychotic disturbance, mood disturbance, and anxiety; I48.0 Paroxysmal atrial fibrillation; I48.92 Unspecified atrial flutter; D63.1 Anemia in chronic kidney disease; D50.9 Iron deficiency anemia, unspecified; E86.0 Dehydration; I48.2 Chronic atrial fibrillation; I25.10 Atherosclerotic heart disease of native coronary artery without angina pectoris; E55.9 Vitamin D deficiency, unspecified; M54.30 Sciatica, unspecified side; E78.00 Pure hypercholesterolemia, unspecified; K21.9 Gastro-esophageal reflux disease without esophagitis; R47.1 Dysarthria and anarthria; K59.00 Constipation, unspecified; R25.3 Fasciculation; F41.9 Anxiety disorder, unspecified; I25.2 Old myocardial infarction; Z85.528 Personal history of other malignant neoplasm of kidney; Z79.82 Long term (current) use of aspirin; Z79.01 Long term (current) use of anticoagulants; Z79.891 Long term (current) use of opiate analgesic; Z90.5 Acquired absence of kidney

== ENCOUNTER 2017-03-25 18:45 | Inpatient (IN) | payer OTHER, MEDICARE ==
[2017-03-25] MEDS ORDERED: Levalbuterol 0.63 MG/3 ML Inhal Soln UD IH PRN (19:23)
[2017-03-25] MEDS: Oxycodone/Acetaminophen 2.5/325 mg Tab PO PRN (23:45)
[2017-03-26] MEDS: Pantoprazole 40 mg EC Tab PO SCH (05:13)
[2017-03-26] MEDS: Multivitamin Therapeutic Tab PO SCH (08:49)
[2017-03-26] MEDS: POLYETHYLENE GLYCOL 3350 17 GM/Dose PACKET PO SCH ×2 (10:33→17:43)
[2017-03-26] MEDS: Oxycodone/Acetaminophen 2.5/325 mg Tab PO PRN (10:35)
--- NOTE | 2017-03-26 15:57 | CP.PCM.CON ---
History of Present Illness - History of Present Illness History of Present Illness: Initial Nephrology Consultation: Assessment: Recent acute Kidney injury: improved Chronic Kidney Disease Stage 3 (N18.3) proteinuria possibly due to HTN, age related decline, and s/p Rt nephrectomy due to hx of RCC ? symptomatic Anemia chronic, Hypertension controlled (I12.9) Vit D insufficiency with secondary hyperparathyroidism hx of severe pulmonary HTN (RVSP 81 mm Hg) and moderate to severe LVH hx of dementia bradycardia s/p PPM Plan no acute need of renal replacement therapy at this time Hypertension control with meds as ordered. no ACEI/ARB due to PATRICIA She is already on statin started on iron 324 mg TID and MVI d/c IV lasix and norvasc as BP controlled and pt not fluid overloaded anemia management as per primary team and heme Dose meds/antibiotics for reduced GFR. Avoid fleets enema/magnesium based laxatives. Avoid nephrotoxins/NSAIDs anemia management as per heme Further work up as per primary team Thanks for allowing me to participate in care of your patient. Will follow patient with you. Please call if any Qs Dr Jt Lemon Office: [phone] Chief Complaint: none Reason for consult: CKD and PATRICIA HPI: Pt is a 81 y/o F with hx of hypertension (20 years) , renal cell cancer s/ p unilateral total nephrectomy, CKD stage 3 with baseline cr 1.4-1.7 since 2017 but intermittent episodes of PATRICIA, chronic anemia, A fib admitted with SOB, PATRICIA, bradycardia s/p PPM, anemia now in rehab. seen for renal consult now she feels better. denies SOB/chest pain/nausea or urinary complaints. denies nsaids ROS: Constitutional Symptoms: Denies fever. No chills. No Recent Weight Changes Eyes: denies change in vision, denies watery eyes, denies double vision Ears/Nose/Mouth/Throat: Denies Abnormal Taste. No Bad breath or Bad Taste. Cardiovascular: No chest pain. There is no shortness of breath. No palpitations. Pulmonary: improved shortness of breath no cough. Gastrointestinal: denies abdominal pain No nausea. No vomiting. Denies change in bowel habits. Denies Bleeding rest all other negative Physical Examination: General Appearance: Comfortable, in no acute respiratory distress, co-operative . Vitals reviewed and noted as below Head; Atraumatic, normocephalic ENT: no ulcers no thrush. Tongue is midline. Oropharynx: no rash or ulcers. EYES: Pupils are equal, round and reactive to light accommodation. Eye muscles and extraocular movement intact. Sclera is anicteric. Neck; supple no lymphadenopathy, no thyromegaly or bruit Lungs: Normal respiratory rate/effort. Breath sounds bilateral equal and clear Heart: Normal rate. s1s2 normal. No rub or gallop. Extremities: no edema. No varicose veins Neurological: Patient is alert, awake and oriented x3 but seems forgetful, sometime trying to make up for it. No other focal deficit. Strength bilateral appropriate and equal Skin: Warm and dry. Normal turgor. No rash. Palpitation: Normal elasticity for age Abdomen: Abdomen is soft. Bowel sounds +. There is no abdominal tenderness, no guarding/rigidity or organomegaly Psych: lack insight and has normal affect/mood MSK: no joint tenderness or swelling. Digits and nails normal, no deformity : kidney or bladder not palpable Labs/imaging/EKG reviewed. Past medical history, past surgical history,social history, allergy reviewed and noted as below FAMILy HX; no hx of CKD. non contributory work up: CT 2017: s/p Rt nephrectomy, left kidney unremarkable Vit D 21 PTH 229 Past Patient History - Infectious Disease Hx of Infectious Diseases: None - Tetanus Immunizations Tetanus Immunization: >10 years Ago - Past Medical History & Family History Past Medical History?: Yes - Past Social History Smoking Status: Never Smoked - CARDIAC Hx Cardiac Disorders: Yes Hx Congestive Heart Failure: Yes Hx Hypertension: Yes - PULMONARY Hx Respiratory Disorders: No - NEUROLOGICAL Hx Dementia: Yes - HEENT Hx HEENT Problems: Yes (glasses) - RENAL Hx Chronic Kidney Disease: Yes - ENDOCRINE/METABOLIC Hx Endocrine Disorders: No - HEMATOLOGICAL/ONCOLOGICAL Hx Blood Disorders: Yes Hx Anemia: Yes - INTEGUMENTARY Hx Dermatological Problems: No - MUSCULOSKELETAL/RHEUMATOLOGICAL Hx Arthritis: Yes - GASTROINTESTINAL Hx Gastroesophageal Reflux: Yes - GENITOURINARY/GYNECOLOGICAL Hx Genitourinary Disorders: No - PSYCHIATRIC Hx Psychophysiologic Disorder: Yes Hx Anxiety: Yes - SURGICAL HISTORY Hx Surgeries: No - ANESTHESIA Hx Anesthesia Reactions: No Hx Malignant Hyperthermia: No Meds Allergies/Adverse Reactions: Allergies Allergy/AdvReac Type Severity Reaction Status Date / Time No Known Allergies Allergy Verified 03/26/17 04:42 - Medications Medications: Current Medications Acetaminophen (Tylenol 325mg Tab) 650 mg PO Q6H PRN; Protocol PRN Reason: Pain, Mild (1-3) Last Admin: 03/25/17 20:37 Dose: 650 mg Alprazolam (Xanax) 0.5 mg PO Q24H PRN; Protocol PRN Reason: Anxiety Stop: 04/01/17 19:19 Apixaban (Eliquis) 2.5 mg PO BID ISAI PRN Reason: Protocol Last Admin: 03/26/17 10:31 Dose: 2.5 mg Aspirin (Aspirin Chewable) 81 mg PO 0800 ISAI PRN Reason: Protocol Last Admin: 03/26/17 08:49 Dose: 81 mg Atorvastatin Calcium (Lipitor) 20 mg PO DAILY ISAI PRN Reason: Protocol Last Admin: 03/26/17 10:33 Dose: 20 mg Docusate Sodium (Colace) 100 mg PO DAILY ISAI PRN Reason: Protocol Last Admin: 03/26/17 10:30 Dose: 100 mg Ferrous Gluconate (Fergon) 324 mg PO TID ISAI PRN Reason: Protocol Last Admin: 03/26/17 14:16 Dose: 324 mg Isosorbide Mononitrate (Imdur Er) 30 mg PO DAILY ISAI PRN Reason: Protocol Last Admin: 03/26/17 10:31 Dose: 30 mg Levalbuterol HCl (Xopenex) 0.63 mg IH [id number] PRN; Protocol PRN Reason: Shortness of Breath Levetiracetam (Keppra) 500 mg PO BID ISAI PRN Reason: Protocol Last Admin: 03/26/17 10:32 Dose: 500 mg Multivitamins (Thera Tab) 1 tab PO 0800 ISAI PRN Reason: Protocol Last Admin: 03/26/17 08:49 Dose: 1 tab Oxycodone/Acetaminophen (Percocet 2.5/325 Mg Tab) 1 tab PO Q12H PRN; Protocol PRN Reason: Pain, severe (8-10) Last Admin: 03/26/17 10:35 Dose: 1 tab Pantoprazole Sodium (Protonix Ec Tab) 40 mg PO 0600 ISAI PRN Reason: Protocol Last Admin: 03/26/17 05:13 Dose: 40 mg Polyethylene Glycol (Miralax) 17 gm PO BID ISAI PRN Reason: Protocol Last Admin: 03/26/17 10:33 Dose: 17 gm Results - Vital Signs Recent Vital Signs: Last Vital Signs Temp 98.2 F 03/25/17 21:46 Pulse 66 03/25/17 21:46 Resp 18 03/25/17 21:46 BP 152/73 H 03/26/17 10:34 Pulse Ox
--- NOTE | 2017-03-26 17:46 | CP.PCM.HP ---
History of Present Illness - History of Present Illness History of Present Illness: Internal Medicine/Infectious Disease H&P: March 26, 2017 81 yo AA female presenting with Dyspnea on Exertion. Recently discharged from [facility]. No fevers, chills, nausea, vomiting, or diarrhea. Mental lability the past 2 weeks. I do not feel that the patient is able to care for herself at home. I also am unable to evaluate if the patient is taking her medications properly at home. Given the laboratories, the patient is showing signs of dehydration and malnutrition. Multiple hospital admissions in the past 2 months. This morning the patient was found unresponsive by nursing staff. Rapid response initiated. The patient was also found to have intermittent arm twitching. Evaluated by House Doctor (Dr. Montanez) and consults to MICU and Neurology requested. As far as patient's opioid use is concerned, she is written for 20 Percocet doses each month. Checking [employer] website in [place] shows no other prescriptions for opioids filled by the patient. She lives alone. Noted Keppra started. Leukocytosis likely secondary to epilepsy episode. 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 The patient is currently arousable. Had some dysarthria with paraphasic errors , ideamotor and construction apraxia as well as expressive aphasia but seems to be resolved today. The patient is noted to have right facial weakness yesterday but this seems to have resolved today as well. Noted all it consultant notes today. Marked bradycardia down to the 30s now. Discussed with Dr. Fonseca. Patient requires pacemaker for the chronic atrial fibrillation with marked bradycardia. Pacemaker placed yesterday afternoon. Pulse at 60s today. Creatinine still remains elevated at 2.4 (2.8 yesterday) Neurologically, the patient is back to baseline again. AAO x 2 at baseline. She has been emotionally labile for the last few months. In TCU now. Present on Admission - Present on Admission Any Indicators Present on Admission: No Past Patient History - Infectious Disease Hx of Infectious Diseases: None - Tetanus Immunizations Tetanus Immunization: >10 years Ago - Past Medical History & Family History Past Medical History?: Yes - Past Social History Smoking Status: Never Smoked - CARDIAC Hx Cardiac Disorders: Yes Hx Congestive Heart Failure: Yes Hx Hypertension: Yes - PULMONARY Hx Respiratory Disorders: No - NEUROLOGICAL Hx Dementia: Yes - HEENT Hx HEENT Problems: Yes (glasses) - RENAL Hx Chronic Kidney Disease: Yes - ENDOCRINE/METABOLIC Hx Endocrine Disorders: No - HEMATOLOGICAL/ONCOLOGICAL Hx Blood Disorders: Yes Hx Anemia: Yes - INTEGUMENTARY Hx Dermatological Problems: No - MUSCULOSKELETAL/RHEUMATOLOGICAL Hx Arthritis: Yes - GASTROINTESTINAL Hx Gastroesophageal Reflux: Yes - GENITOURINARY/GYNECOLOGICAL Hx Genitourinary Disorders: No - PSYCHIATRIC Hx Psychophysiologic Disorder: Yes Hx Anxiety: Yes - SURGICAL HISTORY Hx Surgeries: No - ANESTHESIA Hx Anesthesia Reactions: No Hx Malignant Hyperthermia: No Meds Allergies/Adverse Reactions: Allergies Allergy/AdvReac Type Severity Reaction Status Date / Time No Known Allergies Allergy Verified 03/26/17 04:42 Physical Exam - Constitutional Appears: Non-toxic, No Acute Distress, Chronically Ill - Head Exam Head Exam: ATRAUMATIC, NORMOCEPHALIC - Eye Exam Eye Exam: EOMI, PERRL Pupil Exam: NORMAL ACCOMODATION, PERRL - ENT Exam ENT Exam: Mucous Membranes Moist, Normal External Ear Exam, TM's Normal Bilaterally - Neck Exam Neck exam: Positive for: Full Rom, Normal Inspection - Respiratory Exam Respiratory Exam: Clear to Auscultation Bilateral, NORMAL BREATHING PATTERN. absent: Rales, Rhonchi, Wheezes - Cardiovascular Exam Cardiovascular Exam: REGULAR RHYTHM, RRR, +S1, +S2 - GI/Abdominal Exam GI & Abdominal Exam: Normal Bowel Sounds, Soft. absent: Distended, Tenderness - Extremities Exam Extremities exam: Positive for: full ROM, normal inspection - Neurological Exam Neurological exam: Alert, CN II-XII Intact, Oriented x3 Additional comments: but very forgetful - Psychiatric Exam Psychiatric exam: Agitated, Depressed Additional comments: Emotionally labile. - Skin Skin Exam: Intact, Normal Color Results - Vital Signs Recent Vital Signs: Last Vital Signs Temp 98.4 F 03/26/17 10:00 Pulse 62 03/26/17 10:00 Resp 16 03/26/17 10:00 BP 152/73 H 03/26/17 10:34 Pulse Ox Assessment & Plan - Assessment and Plan (Free Text) Assessment: 81 yo AA female with complaints of Dyspnea on Exertion. Unclear if the patient takes her medication properly at home. The patient has run off previous home nursing help in the past few months. Recent hospitalizations to [facility] and [facility]. Chronically low heart rate. Periods of confusion. Evaluations by Cardiology Dr. Fonseca, Nephrology Dr. Lemon, and Psychiatry (on hold given recent events). Dehydration and malnutrition. The patient appears to have difficulty in caring for herself at home. This morning the patient found poorly responsive with epilepsy episode. The patient required transfer to MICU and was also seen by Neurology. The patient had leukocytosis which is likely transient to the epilepsy episode. Supportive care. Seen by Dr. Sanchez. Neurologic sequela appears to have resolved. Evaluation for seizures in progress. Recheck CBC and CMP in AM. Noted adjustment to medications. Remains in MICU. For pacemaker. Severe Pulmonary HTN. Pacemaker placed yesterday. Still with elevated creatinine but slowly improving. Heart rate after pacemaker in 60s. Patient is very forgetful. Lasix and Norvasc stopped by Nephrology. Concerns for patient's ability to care for herself at home. Spoke with patient's son Benjamin who is the POA. TCU and Psychiatry evaluations ordered.
--- NOTE | 2017-03-26 19:14 | PN ---
DATE: SUBJECTIVE: The patient was seen yesterday. Please see initial consultation note for more detailed information. The patient is not on any psychotropic medications. The patient is compliant with the treatment. The patient denied being depressed. The patient denied thoughts of harming herself or others. The patient denied intents or plan to harm herself or others. The patient is not psychotic. This consumer loan underwriter recommended to have family to be involved and initiate a look about advanced directives. The patient pose no imminent danger to self or others. Should you have any questions, give me a call back. Thank you very much for letting me to participate in the care of your patient. This consumer loan underwriter signed off yesterday. Clarita Rabago MD
[2017-03-27] MEDS: Oxycodone/Acetaminophen 2.5/325 mg Tab PO PRN ×3 (01:48→22:06)
[2017-03-27] MEDS: Pantoprazole 40 mg EC Tab PO SCH (05:23)
[2017-03-27] MEDS: Multivitamin Therapeutic Tab PO SCH (08:34)
[2017-03-27 09:00] LABS: BASO # 0.03 K/mm3 (0.0-2.0); BASO % 0.4 % (0.0-3.0); EOS # 0.2 (0.0-0.7); EOS % 2.6 % (1.5-5.0); GRAN # 5.13 (1.4-6.5); GRAN % 75.3 % (50.0-68.0); HEMOGLOBIN 9.5 g/dL (12.0-16.0); LYMPH # 1.2 (1.2-3.4); MEAN CELL VOLUME 71.7 fl (80.0-105.0); MEAN CORPUSCULAR HEMOGLOBIN 21.5 pg (25.0-35.0); MONO # 0.3 (0.1-0.6); MONO % 4.7 % (1.0-6.0); PLATELET COUNT 216 10^3/uL (120.0-450.0); RBC 4.42 10^6/uL (3.5-6.1); WHITE BLOOD COUNT 6.8 10^3/ul (4.5-11.0)
[2017-03-27 09:05] LABS: CALCIUM 9.5 mg/dL (8.4-10.5)
[2017-03-27] MEDS: POLYETHYLENE GLYCOL 3350 17 GM/Dose PACKET PO SCH ×2 (10:06→17:01)
--- NOTE | 2017-03-27 11:07 | CP.PCM.PN ---
Subjective - Date & Time of Evaluation Date of Evaluation: 03/27/17 Time of Evaluation: 11:06 - Subjective Subjective: RENAL FOLLOWUP IMPRESSION: PATRICIA Chronic Kidney Disease Stage 3 (N18.3) proteinuria possibly due to HTN, age related decline, and s/p Rt nephrectomy due to hx of RCC ? symptomatic Anemia chronic, Hypertension controlled (I12.9) Vit D insufficiency with secondary hyperparathyroidism hx of severe pulmonary HTN (RVSP 81 mm Hg) and moderate to severe LVH hx of dementia bradycardia s/p PPM Plan PATRICIA improved today BP stable contine iron and mvi holding lasix and norvasc S: seen and examined complaitns of Physical Examination: General Appearance: Comfortable, in no acute respiratory distress, co-operative . Vitals reviewed and noted as below Head; Atraumatic, normocephalic ENT: no ulcers no thrush. Tongue is midline. Oropharynx: no rash or ulcers. EYES: Pupils are equal, round and reactive to light accommodation. Eye muscles and extraocular movement intact. Sclera is anicteric. Neck; supple no lymphadenopathy, no thyromegaly or bruit Lungs: Normal respiratory rate/effort. Breath sounds bilateral equal and clear Heart: Normal rate. s1s2 normal. No rub or gallop. Extremities: no edema. No varicose veins Neurological: A+OX3 follows commands Skin: Warm and dry. Normal turgor. No rash. Palpitation: Normal elasticity for age Abdomen: Abdomen is soft. Bowel sounds +. There is no abdominal tenderness, no guarding/rigidity or organomegaly Psych: FLAT MSK: no joint tenderness or swelling. Digits and nails normal, no deformity : kidney or bladder not palpable Labs/imaging/EKG reviewed. Past medical history, past surgical history,social history, allergy reviewed and noted as below FAMILy HX; no hx of CKD. non contributory work up: CT 2017: s/p Rt nephrectomy, left kidney unremarkable Vit D 21 PTH 229 Objective - Vital Signs/Intake and Output Vital Signs (last 24 hours): Temp Pulse Resp BP Pulse Ox 98.4 F 62 16 152/73 H 03/26/17 10:00 03/26/17 10:00 03/26/17 10:00 03/26/17 10:34 Intake and Output: 03/27/17 03/27/17 06:59 18:59 Intake Total 120 Output Total 200 Balance -80 - Medications Medications: Current Medications Acetaminophen (Tylenol 325mg Tab) 650 mg PO Q6H PRN; Protocol PRN Reason: Pain, Mild (1-3) Last Admin: 03/27/17 05:23 Dose: 650 mg Alprazolam (Xanax) 0.5 mg PO Q24H PRN; Protocol PRN Reason: Anxiety Stop: 04/01/17 19:19 Apixaban (Eliquis) 2.5 mg PO BID ISAI PRN Reason: Protocol Last Admin: 03/27/17 10:06 Dose: 2.5 mg Aspirin (Aspirin Chewable) 81 mg PO 0800 ISAI PRN Reason: Protocol Last Admin: 03/27/17 08:34 Dose: 81 mg Atorvastatin Calcium (Lipitor) 20 mg PO DAILY ISAI PRN Reason: Protocol Last Admin: 03/27/17 10:06 Dose: 20 mg Docusate Sodium (Colace) 100 mg PO DAILY ISAI PRN Reason: Protocol Last Admin: 03/27/17 10:06 Dose: 100 mg Ferrous Gluconate (Fergon) 324 mg PO TID ISAI PRN Reason: Protocol Last Admin: 03/27/17 10:06 Dose: 324 mg Isosorbide Mononitrate (Imdur Er) 30 mg PO DAILY ISAI PRN Reason: Protocol Last Admin: 03/27/17 10:08 Dose: 30 mg Levalbuterol HCl (Xopenex) 0.63 mg IH [id number] PRN; Protocol PRN Reason: Shortness of Breath Levetiracetam (Keppra) 500 mg PO BID ISAI PRN Reason: Protocol Last Admin: 03/27/17 10:06 Dose: 500 mg Multivitamins (Thera Tab) 1 tab PO 0800 ISAI PRN Reason: Protocol Last Admin: 03/27/17 08:34 Dose: 1 tab Oxycodone/Acetaminophen (Percocet 2.5/325 Mg Tab) 1 tab PO Q12H PRN; Protocol PRN Reason: Pain, severe (8-10) Last Admin: 03/27/17 01:48 Dose: 1 tab Pantoprazole Sodium (Protonix Ec Tab) 40 mg PO 0600 ISAI PRN Reason: Protocol Last Admin: 03/27/17 05:23 Dose: 40 mg Polyethylene Glycol (Miralax) 17 gm PO BID ISAI PRN Reason: Protocol Last Admin: 03/27/17 10:06 Dose: Not Given - Labs Labs: 03/27/17 08:00 03/27/17 08:00
--- NOTE | 2017-03-27 17:41 | CP.PCM.PN ---
Subjective - Date & Time of Evaluation Date of Evaluation: 03/27/17 Time of Evaluation: 16:00 - Subjective Subjective: Internal Medicine/Infectious Disease Follow Up: March 27, 2017 81 yo AA female presenting with Dyspnea on Exertion. [place] [facility] No fevers, chills, nausea, vomiting, or diarrhea. Mental lability the past 2 weeks. I do not feel that the patient is able to care for herself at home. I also am unable to evaluate if the patient is taking her medications properly at home. Given the laboratories, the patient is showing signs of dehydration and malnutrition. Multiple hospital admissions in the past 2 months. This morning the patient was found unresponsive by nursing staff. Rapid response initiated. The patient was also found to have intermittent arm twitching. Evaluated by House Doctor (Dr. Montanez) and consults to MICU and Neurology requested. As far as patient's opioid use is concerned, she is written for 20 Percocet doses each month. Checking [employer] website in [place] shows no other prescriptions for opioids filled by the patient. She lives alone. Noted Keppra started. Leukocytosis likely secondary to epilepsy episode. 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 The patient is currently arousable. Had some dysarthria with paraphasic errors , ideamotor and construction apraxia as well as expressive aphasia but seems to be resolved today. The patient is noted to have right facial weakness yesterday but this seems to have resolved today as well. Noted all systems development consultant notes today. Marked bradycardia down to the 30s during this hospitalization. Discussed with Dr. Fonseca. Patient requires pacemaker for the chronic atrial fibrillation with marked bradycardia. Pacemaker placed. Pulse at 60s today. Creatinine still remains elevated at 1.5 (2.4 yesterday) Neurologically, the patient is back to baseline again. AAO x 2 at baseline. She has been emotionally labile for the last few months. In TCU now. Long discussion with the patient yesterday. Unfortunately, the patient does NOT want to involve her family. She is very forgetful with a poor short term memory. She has done well in the hospital given that here she has 24/7 care. The patient fails to understand some of the root cause of her problems and the importance of involving family in aiding with her care. The patient does not recall how long she has been in the hospital, how many times she has been in the hospital, and even if she ate or taken her medications. Objective - Vital Signs/Intake and Output Vital Signs (last 24 hours): Temp Pulse Resp BP Pulse Ox 98.4 F 62 16 152/73 H 03/26/17 10:00 03/26/17 10:00 03/26/17 10:00 03/26/17 10:34 Intake and Output: 03/27/17 03/27/17 06:59 18:59 Intake Total 120 Output Total 200 Balance -80 - Medications Medications: Current Medications Acetaminophen (Tylenol 325mg Tab) 650 mg PO Q6H PRN; Protocol PRN Reason: Pain, Mild (1-3) Last Admin: 03/27/17 05:23 Dose: 650 mg Alprazolam (Xanax) 0.5 mg PO Q24H PRN; Protocol PRN Reason: Anxiety Stop: 04/01/17 19:19 Apixaban (Eliquis) 2.5 mg PO BID ISAI PRN Reason: Protocol Last Admin: 03/27/17 17:01 Dose: 2.5 mg Aspirin (Aspirin Chewable) 81 mg PO 0800 ISAI PRN Reason: Protocol Last Admin: 03/27/17 08:34 Dose: 81 mg Atorvastatin Calcium (Lipitor) 20 mg PO DAILY ISAI PRN Reason: Protocol Last Admin: 03/27/17 10:06 Dose: 20 mg Docusate Sodium (Colace) 100 mg PO DAILY ISAI PRN Reason: Protocol Last Admin: 03/27/17 10:06 Dose: 100 mg Ferrous Gluconate (Fergon) 324 mg PO TID ISAI PRN Reason: Protocol Last Admin: 03/27/17 17:01 Dose: 324 mg Isosorbide Mononitrate (Imdur Er) 30 mg PO DAILY ISAI PRN Reason: Protocol Last Admin: 03/27/17 10:08 Dose: 30 mg Levalbuterol HCl (Xopenex) 0.63 mg IH [id number] PRN; Protocol PRN Reason: Shortness of Breath Levetiracetam (Keppra) 500 mg PO BID ISAI PRN Reason: Protocol Last Admin: 03/27/17 17:01 Dose: 500 mg Multivitamins (Thera Tab) 1 tab PO 0800 ISAI PRN Reason: Protocol Last Admin: 01/20/18 08:34 Dose: 1 tab Oxycodone/Acetaminophen (Percocet 2.5/325 Mg Tab) 1 tab PO Q12H PRN; Protocol PRN Reason: Pain, severe (8-10) Last Admin: 03/27/17 13:26 Dose: 1 tab Pantoprazole Sodium (Protonix Ec Tab) 40 mg PO 0600 ISAI PRN Reason: Protocol Last Admin: 03/27/17 05:23 Dose: 40 mg Polyethylene Glycol (Miralax) 17 gm PO BID ISAI PRN Reason: Protocol Last Admin: 03/27/17 17:01 Dose: Not Given - Labs Labs: 03/27/17 08:00 03/27/17 08:00 - Constitutional Appears: Non-toxic, No Acute Distress, Chronically Ill - Head Exam Head Exam: ATRAUMATIC, NORMOCEPHALIC - Eye Exam Eye Exam: EOMI, PERRL Pupil Exam: NORMAL ACCOMODATION, PERRL - ENT Exam ENT Exam: Mucous Membranes Moist, Normal External Ear Exam, TM's Normal Bilaterally - Neck Exam Neck Exam: Full ROM, Normal Inspection - Respiratory Exam Respiratory Exam: Clear to Ausculation Bilateral, NORMAL BREATHING PATTERN. absent: Rales, Rhonchi, Wheezes - Cardiovascular Exam Cardiovascular Exam: REGULAR RHYTHM, RRR, +S1, +S2 - GI/Abdominal Exam GI & Abdominal Exam: Soft, Normal Bowel Sounds. absent: Distended, Tenderness - Extremities Exam Extremities Exam: Full ROM, Normal Inspection - Neurological Exam Neurological Exam: Alert, Awake, CN II-XII Intact Additional comments: AAO x 2, forgetful. - Psychiatric Exam Psychiatric exam: Normal Affect, Normal Mood - Skin Skin Exam: Intact, Normal Color Assessment and Plan - Assessment and Plan (Free Text) Assessment: 81 yo AA female with complaints of Dyspnea on Exertion. Unclear if the patient takes her medication properly at home. The patient has run off previous home nursing help in the past few months. [place] [facility] [place] [facility] Chronically low heart rate. Periods of confusion. Evaluations by Cardiology Dr. Fonseca, Nephrology Dr. Lemon, and Psychiatry (on hold given recent events). Dehydration and malnutrition. The patient appears to have difficulty in caring for herself at home. This morning the patient found poorly responsive with epilepsy episode. The patient required transfer to MICU and was also seen by Neurology. The patient had leukocytosis which is likely transient to the epilepsy episode. Supportive care. Seen by Dr. Sanchez. Neurologic sequela appears to have resolved. Evaluation for seizures in progress. Recheck CBC and CMP in AM. Noted adjustment to medications. Remains in MICU. For pacemaker. Severe Pulmonary HTN. Pacemaker placed yesterday. Still with elevated creatinine but slowly improving. Heart rate after pacemaker in 60s. Patient is very forgetful. Lasix and Norvasc stopped by Nephrology. Concerns for patient's ability to care for herself at home given the patient's forgetfulness and unwillingness to involve her family in her care. Creatinine is improving. Spoke with patient's son Benjamin who is the POA. TCU and Psychiatry evaluations ordered.
--- NOTE | 2017-03-28 02:48 | CP.PCM.CON ---
History of Present Illness - History of Present Illness History of Present Illness: 81 year old female with a history of HTN, HL, afib on coumadin, renal cell carcinoma s/p surgery, CKD, recently discharged with subacute stroke and iron deficiency anemia, now admitted to TCU. She did require PRBC tranfusion and IV iron. She currently reports to feeling better. She denies abnormal bleeding and bruising. In the past, she has undergone GI work up with endoscopy which revealed multiple AVMs and gastric ulcer. Past medical history: HTN, HL, afib, renal cell carcinoma s/p surgery Past surgical history: Renal cell carcinoma resection Family history: Denies hematologic and oncologic problems Social history: Denies tobacco, alcohol, and illicit drug use. Allergies: NKA Review of systems: All remaining review of systems including HEENT, cardiovascular, respiratory, gastrointestinal, genitourinary, musculoskeletal, dermatologic, neurologic, and psychiatric are negative unless mentioned in the HPI. Past Patient History - Infectious Disease Hx of Infectious Diseases: None - Tetanus Immunizations Tetanus Immunization: >10 years Ago - Past Medical History & Family History Past Medical History?: Yes - Past Social History Smoking Status: Never Smoked - CARDIAC Hx Cardiac Disorders: Yes Hx Congestive Heart Failure: Yes Hx Hypertension: Yes - PULMONARY Hx Respiratory Disorders: No - NEUROLOGICAL Hx Dementia: Yes - HEENT Hx HEENT Problems: Yes (glasses) - RENAL Hx Chronic Kidney Disease: Yes - ENDOCRINE/METABOLIC Hx Endocrine Disorders: No - HEMATOLOGICAL/ONCOLOGICAL Hx Blood Disorders: Yes Hx Anemia: Yes - INTEGUMENTARY Hx Dermatological Problems: No - MUSCULOSKELETAL/RHEUMATOLOGICAL Hx Arthritis: Yes - GASTROINTESTINAL Hx Gastroesophageal Reflux: Yes - GENITOURINARY/GYNECOLOGICAL Hx Genitourinary Disorders: No - PSYCHIATRIC Hx Psychophysiologic Disorder: Yes Hx Anxiety: Yes - SURGICAL HISTORY Hx Surgeries: No - ANESTHESIA Hx Anesthesia Reactions: No Hx Malignant Hyperthermia: No Meds Allergies/Adverse Reactions: Allergies Allergy/AdvReac Type Severity Reaction Status Date / Time No Known Allergies Allergy Verified 03/26/17 04:42 - Medications Medications: Current Medications Acetaminophen (Tylenol 325mg Tab) 650 mg PO Q6H PRN; Protocol PRN Reason: Pain, Mild (1-3) Last Admin: 03/27/17 05:23 Dose: 650 mg Alprazolam (Xanax) 0.5 mg PO Q24H PRN; Protocol PRN Reason: Anxiety Stop: 04/01/17 19:19 Apixaban (Eliquis) 2.5 mg PO BID ISAI PRN Reason: Protocol Last Admin: 03/27/17 17:01 Dose: 2.5 mg Aspirin (Aspirin Chewable) 81 mg PO 0800 ISAI PRN Reason: Protocol Last Admin: 03/27/17 08:34 Dose: 81 mg Atorvastatin Calcium (Lipitor) 20 mg PO DAILY ISAI PRN Reason: Protocol Last Admin: 03/27/17 10:06 Dose: 20 mg Docusate Sodium (Colace) 100 mg PO DAILY ISAI PRN Reason: Protocol Last Admin: 03/27/17 10:06 Dose: 100 mg Ferrous Gluconate (Fergon) 324 mg PO TID ISAI PRN Reason: Protocol Last Admin: 03/27/17 17:01 Dose: 324 mg Isosorbide Mononitrate (Imdur Er) 30 mg PO DAILY ISAI PRN Reason: Protocol Last Admin: 03/27/17 10:08 Dose: 30 mg Levalbuterol HCl (Xopenex) 0.63 mg IH [id number] PRN; Protocol PRN Reason: Shortness of Breath Levetiracetam (Keppra) 500 mg PO BID ISAI PRN Reason: Protocol Last Admin: 03/27/17 17:01 Dose: 500 mg Multivitamins (Thera Tab) 1 tab PO 0800 ISAI PRN Reason: Protocol Last Admin: 03/27/17 08:34 Dose: 1 tab Oxycodone/Acetaminophen (Percocet 2.5/325 Mg Tab) 1 tab PO Q12H PRN; Protocol PRN Reason: Pain, severe (8-10) Last Admin: 03/27/17 22:06 Dose: 1 tab Pantoprazole Sodium (Protonix Ec Tab) 40 mg PO 0600 ISAI PRN Reason: Protocol Last Admin: 03/27/17 05:23 Dose: 40 mg Polyethylene Glycol (Miralax) 17 gm PO BID ISAI PRN Reason: Protocol Last Admin: 03/27/17 17:01 Dose: Not Given Physical Exam - Head Exam Head Exam: ATRAUMATIC - Eye Exam Eye Exam: Normal appearance - ENT Exam ENT Exam: Mucous Membranes Dry - Respiratory Exam Respiratory Exam: NORMAL BREATHING PATTERN - Cardiovascular Exam Cardiovascular Exam: +S1, +S2 - GI/Abdominal Exam GI & Abdominal Exam: Normal Bowel Sounds Results - Vital Signs Recent Vital Signs: Last Vital Signs Temp 98.3 F 03/27/17 17:34 Pulse 59 L 03/27/17 17:34 Resp 20 03/27/17 17:34 BP 127/68 03/27/17 17:34 Pulse Ox - Labs Result Diagrams: 03/27/17 08:00 03/27/17 08:00 Labs: Laboratory Results - last 24 hr 03/27/17 03/27/17 03/27/17 08:00 08:00 08:00 WBC 6.8 RBC 4.42 Hgb 9.5 L Hct 31.7 L MCV 71.7 L MCH 21.5 L MCHC 30.0 L RDW 25.0 H Plt Count 216 Gran % 75.3 H Lymph % (Auto) 17.0 L Hitchcock % (Auto) 4.7 Eos % (Auto) 2.6 Baso % (Auto) 0.4 Gran # 5.13 Lymph # 1.2 Hitchcock # 0.3 Eos # 0.2 Baso # 0.03 Sodium 139 Potassium 4.7 Chloride 106 Carbon Dioxide 23 Anion Gap 15 BUN 47 H Creatinine 1.5 H Est GFR ( Amer) 40 Est GFR (Non-Af Amer) 33 POC Glucose (mg/dL) Random Glucose 108 Calcium 9.5 25-OH Vitamin D Total 35.1 03/27/17 11:08 WBC RBC Hgb Hct MCV MCH MCHC RDW Plt Count Gran % Lymph % (Auto) Hitchcock % (Auto) Eos % (Auto) Baso % (Auto) Gran # Lymph # Hitchcock # Eos # Baso # Sodium Potassium Chloride Carbon Dioxide Anion Gap BUN Creatinine Est GFR ( Amer) Est GFR (Non-Af Amer) POC Glucose (mg/dL) 117 H Random Glucose Calcium 25-OH Vitamin D Total Assessment & Plan (1) Iron deficiency anemia Assessment and Plan: cont. oral iron Status: Acute (2) Renal cell cancer Assessment and Plan: s/p nephrectomy in remission Thank you for this interesting consult. Status: Acute
[2017-03-28] MEDS: Pantoprazole 40 mg EC Tab PO SCH (05:06)
[2017-03-28] MEDS: Multivitamin Therapeutic Tab PO SCH (08:22)
[2017-03-28] MEDS: Oxycodone/Acetaminophen 2.5/325 mg Tab PO PRN (08:35)
[2017-03-28] MEDS: POLYETHYLENE GLYCOL 3350 17 GM/Dose PACKET PO SCH ×2 (09:56→18:35)
--- NOTE | 2017-03-28 15:24 | CP.PCM.PN ---
Subjective - Date & Time of Evaluation Date of Evaluation: 03/28/17 Time of Evaluation: 15:23 - Subjective Subjective: RENAL FOLLOWUP IMPRESSION: PATRICIA Chronic Kidney Disease Stage 3 (N18.3) proteinuria possibly due to HTN, age related decline, and s/p Rt nephrectomy due to hx of RCC ? symptomatic Anemia chronic, Hypertension controlled (I12.9) Vit D insufficiency with secondary hyperparathyroidism hx of severe pulmonary HTN (RVSP 81 mm Hg) and moderate to severe LVH hx of dementia bradycardia s/p PPM Plan PATRICIA improved and stable BP stable continue iron and mvi holding lasix and norvasc S: seen and examined complaitns of SEGUNDO Physical Examination: General Appearance: Comfortable, in no acute respiratory distress, co-operative . Vitals reviewed and noted as below Head; Atraumatic, normocephalic ENT: no ulcers no thrush. Tongue is midline. Oropharynx: no rash or ulcers. EYES: Pupils are equal, round and reactive to light accommodation. Eye muscles and extraocular movement intact. Sclera is anicteric. Neck; supple no lymphadenopathy, no thyromegaly or bruit Lungs: Normal respiratory rate/effort. Breath sounds bilateral equal and clear Heart: Normal rate. s1s2 normal. No rub or gallop. Extremities: no edema. No varicose veins Neurological: A+OX3 follows commands Skin: Warm and dry. Normal turgor. No rash. Palpitation: Normal elasticity for age Abdomen: Abdomen is soft. Bowel sounds +. There is no abdominal tenderness, no guarding/rigidity or organomegaly Psych: FLAT MSK: no joint tenderness or swelling. Digits and nails normal, no deformity : kidney or bladder not palpable Objective - Vital Signs/Intake and Output Vital Signs (last 24 hours): Temp Pulse Resp BP Pulse Ox 98.2 F 60 18 138/63 97 03/28/17 11:31 03/28/17 11:31 03/28/17 11:31 03/28/17 11:31 03/28/17 11:31 - Medications Medications: Current Medications Acetaminophen (Tylenol 325mg Tab) 650 mg PO Q6H PRN; Protocol PRN Reason: Pain, Mild (1-3) Last Admin: 03/28/17 05:06 Dose: 650 mg Alprazolam (Xanax) 0.5 mg PO Q24H PRN; Protocol PRN Reason: Anxiety Stop: 04/01/17 19:19 Last Admin: 03/28/17 10:03 Dose: 0.5 mg Apixaban (Eliquis) 2.5 mg PO BID ISAI PRN Reason: Protocol Last Admin: 03/28/17 09:55 Dose: 2.5 mg Aspirin (Aspirin Chewable) 81 mg PO 0800 ISAI PRN Reason: Protocol Last Admin: 03/28/17 08:22 Dose: 81 mg Atorvastatin Calcium (Lipitor) 20 mg PO DAILY ISAI PRN Reason: Protocol Last Admin: 03/28/17 09:55 Dose: 20 mg Docusate Sodium (Colace) 100 mg PO DAILY ISAI PRN Reason: Protocol Last Admin: 03/28/17 09:55 Dose: 100 mg Ferrous Gluconate (Fergon) 324 mg PO TID ISAI PRN Reason: Protocol Last Admin: 03/28/17 13:23 Dose: 324 mg Isosorbide Mononitrate (Imdur Er) 30 mg PO DAILY ISAI PRN Reason: Protocol Last Admin: 03/28/17 09:55 Dose: 30 mg Levalbuterol HCl (Xopenex) 0.63 mg IH [id number] PRN; Protocol PRN Reason: Shortness of Breath Levetiracetam (Keppra) 500 mg PO BID ISAI PRN Reason: Protocol Last Admin: 03/28/17 09:55 Dose: 500 mg Multivitamins (Thera Tab) 1 tab PO 0800 ISAI PRN Reason: Protocol Last Admin: 03/28/17 08:22 Dose: 1 tab Oxycodone/Acetaminophen (Percocet 2.5/325 Mg Tab) 1 tab PO Q12H PRN; Protocol PRN Reason: Pain, severe (8-10) Last Admin: 03/27/17 22:06 Dose: 1 tab Pantoprazole Sodium (Protonix Ec Tab) 40 mg PO 0600 ISAI PRN Reason: Protocol Last Admin: 03/28/17 05:06 Dose: 40 mg Polyethylene Glycol (Miralax) 17 gm PO BID ISAI PRN Reason: Protocol Last Admin: 03/28/17 09:56 Dose: Not Given - Labs Labs: 03/27/17 08:00 03/27/17 08:00
--- NOTE | 2017-03-28 18:35 | CP.PCM.PN ---
Subjective - Date & Time of Evaluation Date of Evaluation: 03/28/17 Time of Evaluation: 18:30 - Subjective Subjective: Internal Medicine/Infectious Disease Follow Up: March 28, 2017 81 yo AA female presenting with Dyspnea on Exertion. [place] [facility] No fevers, chills, nausea, vomiting, or diarrhea. Mental lability the past 2 weeks. I do not feel that the patient is able to care for herself at home. I also am unable to evaluate if the patient is taking her medications properly at home. Given the laboratories, the patient is showing signs of dehydration and malnutrition. Multiple hospital admissions in the past 2 months. This morning the patient was found unresponsive by nursing staff. Rapid response initiated. The patient was also found to have intermittent arm twitching. Evaluated by House Doctor (Dr. Montanez) and consults to MICU and Neurology requested. As far as patient's opioid use is concerned, she is written for 20 Percocet doses each month. Checking [employer] website in [place] shows no other prescriptions for opioids filled by the patient. She lives alone. Noted Keppra started. Leukocytosis likely secondary to epilepsy episode. 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 The patient is currently arousable. Had some dysarthria with paraphasic errors , ideamotor and construction apraxia as well as expressive aphasia but seems to be resolved today. The patient is noted to have right facial weakness yesterday but this seems to have resolved today as well. Noted all philatelic consultant notes today. Marked bradycardia down to the 30s during this hospitalization. Discussed with Dr. Fonseca. Patient requires pacemaker for the chronic atrial fibrillation with marked bradycardia. Pacemaker placed. Pulse at 60s today. Creatinine still remains elevated at 1.5 (2.4 yesterday) Neurologically, the patient is back to baseline again. AAO x 2 at baseline. She has been emotionally labile for the last few months. In TCU now. Long discussion with the patient Wednesday. Unfortunately, the patient does NOT want to involve her family. She is very forgetful with a poor short term memory. She has done well in the hospital given that here she has 24/7 care. The patient fails to understand some of the root cause of her problems and the importance of involving family in aiding with her care. The patient does not recall how long she has been in the hospital, how many times she has been in the hospital, and even if she ate or taken her medications. Repeat conversations shows the same issues of poor short term memory. Objective - Vital Signs/Intake and Output Vital Signs (last 24 hours): Temp Pulse Resp BP Pulse Ox 98.4 F 59 L 18 98/53 L 97 03/28/17 18:17 03/28/17 18:17 03/28/17 18:17 03/28/17 18:17 03/28/17 18:17 - Medications Medications: Current Medications Acetaminophen (Tylenol 325mg Tab) 650 mg PO Q6H PRN; Protocol PRN Reason: Pain, Mild (1-3) Last Admin: 03/28/17 05:06 Dose: 650 mg Alprazolam (Xanax) 0.5 mg PO Q24H PRN; Protocol PRN Reason: Anxiety Stop: 04/01/17 19:19 Last Admin: 03/28/17 10:03 Dose: 0.5 mg Apixaban (Eliquis) 2.5 mg PO BID ISAI PRN Reason: Protocol Last Admin: 03/28/17 09:55 Dose: 2.5 mg Aspirin (Aspirin Chewable) 81 mg PO 0800 ISAI PRN Reason: Protocol Last Admin: 03/28/17 08:22 Dose: 81 mg Atorvastatin Calcium (Lipitor) 20 mg PO DAILY ISAI PRN Reason: Protocol Last Admin: 03/28/17 09:55 Dose: 20 mg Docusate Sodium (Colace) 100 mg PO DAILY ISAI PRN Reason: Protocol Last Admin: 03/28/17 09:55 Dose: 100 mg Ferrous Gluconate (Fergon) 324 mg PO TID ISAI PRN Reason: Protocol Last Admin: 03/28/17 13:23 Dose: 324 mg Isosorbide Mononitrate (Imdur Er) 30 mg PO DAILY ISAI PRN Reason: Protocol Last Admin: 03/28/17 09:55 Dose: 30 mg Levalbuterol HCl (Xopenex) 0.63 mg IH [id number] PRN; Protocol PRN Reason: Shortness of Breath Levetiracetam (Keppra) 500 mg PO BID ISAI PRN Reason: Protocol Last Admin: 03/28/17 09:55 Dose: 500 mg Multivitamins (Thera Tab) 1 tab PO 0800 ISAI PRN Reason: Protocol Last Admin: 03/28/17 08:22 Dose: 1 tab Oxycodone/Acetaminophen (Percocet 2.5/325 Mg Tab) 1 tab PO Q12H PRN; Protocol PRN Reason: Pain, severe (8-10) Last Admin: 03/27/17 22:06 Dose: 1 tab Pantoprazole Sodium (Protonix Ec Tab) 40 mg PO 0600 ISAI PRN Reason: Protocol Last Admin: 03/28/17 05:06 Dose: 40 mg Polyethylene Glycol (Miralax) 17 gm PO BID ISAI PRN Reason: Protocol Last Admin: 03/28/17 09:56 Dose: Not Given - Labs Labs: 03/27/17 08:00 03/27/17 08:00 - Constitutional Appears: Non-toxic, No Acute Distress, Chronically Ill - Head Exam Head Exam: ATRAUMATIC, NORMOCEPHALIC - Eye Exam Eye Exam: EOMI, PERRL Pupil Exam: NORMAL ACCOMODATION, PERRL - ENT Exam ENT Exam: Mucous Membranes Moist, Normal External Ear Exam, TM's Normal Bilaterally - Neck Exam Neck Exam: Full ROM, Normal Inspection - Respiratory Exam Respiratory Exam: Clear to Ausculation Bilateral, NORMAL BREATHING PATTERN. absent: Rales, Rhonchi, Wheezes - Cardiovascular Exam Cardiovascular Exam: REGULAR RHYTHM, RRR, +S1, +S2 - GI/Abdominal Exam GI & Abdominal Exam: Soft, Normal Bowel Sounds. absent: Distended, Tenderness - Extremities Exam Extremities Exam: Full ROM, Normal Inspection - Neurological Exam Neurological Exam: Alert, Awake, CN II-XII Intact Additional comments: AAO x 2. Poor concept of time. - Psychiatric Exam Psychiatric exam: Normal Affect, Normal Mood - Skin Skin Exam: Intact, Normal Color Assessment and Plan - Assessment and Plan (Free Text) Assessment: 81 yo AA female with complaints of Dyspnea on Exertion. Unclear if the patient takes her medication properly at home. The patient has run off previous home nursing help in the past few months. Recent [place] [facility] [place] [facility] [place]. Chronically low heart rate. Periods of confusion. Evaluations by Cardiology Dr. Fonseca, Nephrology Dr. Lemon, and Psychiatry (on hold given recent events). Dehydration and malnutrition. The patient appears to have difficulty in caring for herself at home. This morning the patient found poorly responsive with epilepsy episode. The patient required transfer to MICU and was also seen by Neurology. The patient had leukocytosis which is likely transient to the epilepsy episode. Supportive care. Seen by Dr. Sanchez. Neurologic sequela appears to have resolved. Evaluation for seizures in progress. Recheck CBC and CMP in AM. Noted adjustment to medications. Remains in MICU. For pacemaker. Severe Pulmonary HTN. Pacemaker placed yesterday. Still with elevated creatinine but slowly improving. Heart rate after pacemaker in 60s. Patient is very forgetful. Lasix and Norvasc stopped by Nephrology. Concerns for patient's ability to care for herself at home given the patient's forgetfulness and unwillingness to involve her family in her care. Will have to try to maximize her time with home nursing and possibly a funeral home attendant. Creatinine is improving. Spoke with patient's son Benjamin who is the POA. TCU and Psychiatry evaluations ordered.
[2017-03-29] MEDS: Pantoprazole 40 mg EC Tab PO SCH (05:09)
[2017-03-29] MEDS: Oxycodone/Acetaminophen 2.5/325 mg Tab PO PRN ×2 (05:09→20:06)
[2017-03-29] MEDS: Multivitamin Therapeutic Tab PO SCH (08:15)
[2017-03-29] MEDS: POLYETHYLENE GLYCOL 3350 17 GM/Dose PACKET PO SCH ×2 (10:52→17:25)
[2017-03-29] MEDS: Calcium-Vit D 250 mg-125 Units Tab UD PO SCH (17:25)
--- NOTE | 2017-03-29 17:25 | CP.PCM.PN ---
Subjective - Date & Time of Evaluation Date of Evaluation: 03/29/17 Time of Evaluation: 11:00 - Subjective Subjective: Follow up Nephrology Consultation: Assessment: Recent acute Kidney injury: improved Chronic Kidney Disease Stage 3 (N18.3) proteinuria possibly due to HTN, age related decline, and s/p Rt nephrectomy due to hx of RCC ? symptomatic Anemia chronic, Hypertension controlled (I12.9) Vit D insufficiency with secondary hyperparathyroidism hx of severe pulmonary HTN (RVSP 81 mm Hg) and moderate to severe LVH hx of dementia bradycardia s/p PPM Plan no acute need of renal replacement therapy at this time Hypertension control with meds as ordered. no ACEI/ARB due to PATRICIA and BP controlled She is already on statin started on iron 324 mg TID and MVI d/c IV lasix and norvasc as BP controlled and pt not fluid overloaded anemia management as per primary team and heme added oscal/D 1 tab bid Dose meds/antibiotics for reduced GFR. Avoid fleets enema/magnesium based laxatives. Avoid nephrotoxins/NSAIDs anemia management as per heme Further work up as per primary team Thanks for allowing me to participate in care of your patient. Will follow patient with you. Please call if any Qs Dr Jt Lemon Office: [phone] Chief Complaint: none Reason for consult: CKD and PATRICIA HPI: Pt is a 81 y/o F with hx of hypertension (20 years) , renal cell cancer s/ p unilateral total nephrectomy, CKD stage 3 with baseline cr 1.4-1.7 since 2017 but intermittent episodes of PATRICIA, chronic anemia, A fib admitted with SOB, PATRICIA, bradycardia s/p PPM, anemia now in rehab. seen for renal consult now she feels better. denies SOB/chest pain/nausea or urinary complaints. denies nsaids ROS: Constitutional Symptoms: Denies fever. No chills. No Recent Weight Changes Eyes: denies change in vision, denies watery eyes, denies double vision Ears/Nose/Mouth/Throat: Denies Abnormal Taste. No Bad breath or Bad Taste. Cardiovascular: No chest pain. There is no shortness of breath. No palpitations. Pulmonary: improved shortness of breath no cough. Gastrointestinal: denies abdominal pain No nausea. No vomiting. Denies change in bowel habits. Denies Bleeding rest all other negative Physical Examination: General Appearance: Comfortable, in no acute respiratory distress, co-operative . Vitals reviewed and noted as below Head; Atraumatic, normocephalic ENT: no ulcers no thrush. Tongue is midline. Oropharynx: no rash or ulcers. EYES: Pupils are equal, round and reactive to light accommodation. Eye muscles and extraocular movement intact. Sclera is anicteric. Neck; supple no lymphadenopathy, no thyromegaly or bruit Lungs: Normal respiratory rate/effort. Breath sounds bilateral equal and clear Heart: Normal rate. s1s2 normal. No rub or gallop. Extremities: no edema. No varicose veins Neurological: Patient is alert, awake and oriented x3 but seems forgetful, sometime trying to make up for it. No other focal deficit. Strength bilateral appropriate and equal Skin: Warm and dry. Normal turgor. No rash. Palpitation: Normal elasticity for age Abdomen: Abdomen is soft. Bowel sounds +. There is no abdominal tenderness, no guarding/rigidity or organomegaly Psych: lack insight and has normal affect/mood MSK: no joint tenderness or swelling. Digits and nails normal, no deformity : kidney or bladder not palpable Labs/imaging/EKG reviewed. Past medical history, past surgical history,social history, allergy reviewed and noted as below FAMILy HX; no hx of CKD. non contributory work up: CT 2017: s/p Rt nephrectomy, left kidney unremarkable Vit D 35 PTH 70 Objective - Vital Signs/Intake and Output Vital Signs (last 24 hours): Temp Pulse Resp BP Pulse Ox 98 F 60 20 134/64 98 03/29/17 10:00 03/29/17 10:00 03/29/17 10:00 03/29/17 10:00 03/29/17 06:00 Intake and Output: 03/29/17 03/29/17 06:59 18:59 Intake Total 420 Balance 420 - Medications Medications: Current Medications Acetaminophen (Tylenol 325mg Tab) 650 mg PO Q6H PRN; Protocol PRN Reason: Pain, Mild (1-3) Last Admin: 03/29/17 08:19 Dose: 650 mg Alprazolam (Xanax) 0.5 mg PO Q24H PRN; Protocol PRN Reason: Anxiety Stop: 04/01/17 19:19 Last Admin: 03/29/17 12:01 Dose: 0.5 mg Apixaban (Eliquis) 2.5 mg PO BID ISAI PRN Reason: Protocol Last Admin: 03/29/17 10:43 Dose: 2.5 mg Aspirin (Aspirin Chewable) 81 mg PO 0800 ISAI PRN Reason: Protocol Last Admin: 03/29/17 08:14 Dose: 81 mg Atorvastatin Calcium (Lipitor) 20 mg PO DAILY ISAI PRN Reason: Protocol Last Admin: 03/29/17 10:51 Dose: 20 mg Calcium/Vitamin D (Oscal-D 250 Mg-125 Units Tab) 1 tab PO BID [facility] Docusate Sodium (Colace) 100 mg PO DAILY ISAI PRN Reason: Protocol Last Admin: 03/29/17 10:43 Dose: 100 mg Ferrous Gluconate (Fergon) 324 mg PO TID ISAI PRN Reason: Protocol Last Admin: 03/29/17 14:40 Dose: 324 mg Isosorbide Mononitrate (Imdur Er) 30 mg PO DAILY ISAI PRN Reason: Protocol Last Admin: 03/29/17 10:51 Dose: 30 mg Levalbuterol HCl (Xopenex) 0.63 mg IH [id number] PRN; Protocol PRN Reason: Shortness of Breath Levetiracetam (Keppra) 500 mg PO BID ISAI PRN Reason: Protocol Last Admin: 03/29/17 10:51 Dose: 500 mg Multivitamins (Thera Tab) 1 tab PO 0800 ISAI PRN Reason: Protocol Last Admin: 03/29/17 08:15 Dose: 1 tab Oxycodone/Acetaminophen (Percocet 2.5/325 Mg Tab) 1 tab PO Q12H PRN; Protocol PRN Reason: Pain, severe (8-10) Last Admin: 03/29/17 05:09 Dose: 1 tab Pantoprazole Sodium (Protonix Ec Tab) 40 mg PO 0600 ISAI PRN Reason: Protocol Last Admin: 03/29/17 05:09 Dose: 40 mg Polyethylene Glycol (Miralax) 17 gm PO BID ISAI PRN Reason: Protocol Last Admin: 03/29/17 10:52 Dose: 17 gm - Labs Labs: 03/27/17 08:00 03/27/17 08:00
--- NOTE | 2017-03-29 19:13 | PN ---
DATE: 03/29/2017 SUBJECTIVE: The patient is currently in the TCU. The patient is in a chair without shortness of breath, without chest pain. PHYSICAL EXAMINATION: VITAL SIGNS: Blood pressure is 149/63, heart rates in the 60s. NECK: Negative JVD. LUNGS: Without rales. HEART: With S1, S2. EXTREMITIES: Without edema. Hemoglobin is 9.5. Chemistries, BUN and creatinine 47 and 1.5. IMPRESSION: 1. Status post pacemaker placement. 2. Near-syncope. 3. Recurrent bradycardia. 4. Renal insufficiency. 5. History of hypertension. Given these findings, the patient is hemodynamically stable. The pacemaker is working well. Oswald Fonseca MD
--- NOTE | 2017-03-29 19:31 | CP.PCM.PN ---
Subjective - Date & Time of Evaluation Date of Evaluation: 03/29/17 Time of Evaluation: 19:00 - Subjective Subjective: Internal Medicine/Infectious Disease Follow Up: March 29, 2017 81 yo AA female presenting with Dyspnea on Exertion. [place] [facility] No fevers, chills, nausea, vomiting, or diarrhea. Mental lability the past 2 weeks. I do not feel that the patient is able to care for herself at home. I also am unable to evaluate if the patient is taking her medications properly at home. Given the laboratories, the patient is showing signs of dehydration and malnutrition. Multiple hospital admissions in the past 2 months. This morning the patient was found unresponsive by nursing staff. Rapid response initiated. The patient was also found to have intermittent arm twitching. Evaluated by House Doctor (Dr. Montanez) and consults to MICU and Neurology requested. As far as patient's opioid use is concerned, she is written for 20 Percocet doses each month. Checking [employer] website in [place] shows no other prescriptions for opioids filled by the patient. She lives alone. Noted Keppra started. Leukocytosis likely secondary to epilepsy episode. 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 The patient is currently arousable. Had some dysarthria with paraphasic errors , ideamotor and construction apraxia as well as expressive aphasia but seems to be resolved today. The patient is noted to have right facial weakness yesterday but this seems to have resolved today as well. Noted all consultant dietitian notes today. Marked bradycardia down to the 30s during this hospitalization. Discussed with Dr. Fonseca. Patient requires pacemaker for the chronic atrial fibrillation with marked bradycardia. Pacemaker placed. Pulse at 60s today. Creatinine still remains elevated at 1.5 (2.4 yesterday) Neurologically, the patient is back to baseline again. AAO x 2 at baseline. She has been emotionally labile for the last few months. Pacemaker functioning normally. In TCU now. Long discussion with the patient Wednesday. Unfortunately, the patient does NOT want to involve her family. She is very forgetful with a poor short term memory. She has done well in the hospital given that here she has 24/7 care. The patient fails to understand some of the root cause of her problems and the importance of involving family in aiding with her care. The patient does not recall how long she has been in the hospital, how many times she has been in the hospital, and even if she ate or taken her medications. Repeat conversations shows the same issues of poor short term memory. Objective - Vital Signs/Intake and Output Vital Signs (last 24 hours): Temp Pulse Resp BP Pulse Ox 98 F 60 20 134/64 98 03/29/17 10:00 03/29/17 10:00 03/29/17 10:00 03/29/17 10:00 03/29/17 06:00 Intake and Output: 03/29/17 03/30/17 18:59 06:59 Intake Total 420 Balance 420 - Medications Medications: Current Medications Acetaminophen (Tylenol 325mg Tab) 650 mg PO Q6H PRN; Protocol PRN Reason: Pain, Mild (1-3) Last Admin: 03/29/17 08:19 Dose: 650 mg Alprazolam (Xanax) 0.5 mg PO Q24H PRN; Protocol PRN Reason: Anxiety Stop: 04/01/17 19:19 Last Admin: 03/29/17 12:01 Dose: 0.5 mg Apixaban (Eliquis) 2.5 mg PO BID [facility] PRN Reason: Protocol Last Admin: 03/29/17 17:36 Dose: 2.5 mg Aspirin (Aspirin Chewable) 81 mg PO 0800 [facility] PRN Reason: Protocol Last Admin: 03/29/17 08:14 Dose: 81 mg Atorvastatin Calcium (Lipitor) 20 mg PO DAILY [facility] PRN Reason: Protocol Last Admin: 03/29/17 10:51 Dose: 20 mg Calcium/Vitamin D (Oscal-D 250 Mg-125 Units Tab) 1 tab PO BID [facility] Last Admin: 03/29/17 17:25 Dose: 1 tab Docusate Sodium (Colace) 100 mg PO DAILY [facility] PRN Reason: Protocol Last Admin: 03/29/17 10:43 Dose: 100 mg Ferrous Gluconate (Fergon) 324 mg PO TID [facility] PRN Reason: Protocol Last Admin: 03/29/17 17:24 Dose: 324 mg Isosorbide Mononitrate (Imdur Er) 30 mg PO DAILY [facility] PRN Reason: Protocol Last Admin: 03/29/17 10:51 Dose: 30 mg Levalbuterol HCl (Xopenex) 0.63 mg IH [id number] PRN; Protocol PRN Reason: Shortness of Breath Levetiracetam (Keppra) 500 mg PO BID [facility] PRN Reason: Protocol Last Admin: 03/29/17 17:24 Dose: 500 mg Multivitamins (Thera Tab) 1 tab PO 0800 [facility] PRN Reason: Protocol Last Admin: 03/29/17 08:15 Dose: 1 tab Oxycodone/Acetaminophen (Percocet 2.5/325 Mg Tab) 1 tab PO Q12H PRN; Protocol PRN Reason: Pain, severe (8-10) Last Admin: 03/29/17 05:09 Dose: 1 tab Pantoprazole Sodium (Protonix Ec Tab) 40 mg PO 0600 [facility] PRN Reason: Protocol Last Admin: 03/29/17 05:09 Dose: 40 mg Polyethylene Glycol (Miralax) 17 gm PO BID [facility] PRN Reason: Protocol Last Admin: 03/29/17 17:25 Dose: 17 gm - Labs Labs: 03/27/17 08:00 03/27/17 08:00 - Constitutional Appears: Non-toxic, No Acute Distress, Chronically Ill - Head Exam Head Exam: ATRAUMATIC, NORMOCEPHALIC - Eye Exam Eye Exam: EOMI, PERRL Pupil Exam: NORMAL ACCOMODATION, PERRL - ENT Exam ENT Exam: Mucous Membranes Moist, Normal External Ear Exam, TM's Normal Bilaterally - Neck Exam Neck Exam: Full ROM, Normal Inspection - Respiratory Exam Respiratory Exam: Clear to Ausculation Bilateral, NORMAL BREATHING PATTERN. absent: Rales, Rhonchi, Wheezes - Cardiovascular Exam Cardiovascular Exam: REGULAR RHYTHM, RRR, +S1, +S2 - GI/Abdominal Exam GI & Abdominal Exam: Soft, Normal Bowel Sounds. absent: Distended, Tenderness - Extremities Exam Extremities Exam: Full ROM, Normal Inspection - Neurological Exam Neurological Exam: Alert, Awake, CN II-XII Intact Additional comments: AAO x 2, poor concept of time. - Psychiatric Exam Psychiatric exam: Normal Affect, Normal Mood - Skin Skin Exam: Intact, Normal Color Assessment and Plan - Assessment and Plan (Free Text) Assessment: 81 yo AA female with complaints of Dyspnea on Exertion. Unclear if the patient takes her medication properly at home. The patient has run off previous home nursing help in the past few months. [place] [facility] [place] [facility] Chronically low heart rate. Periods of confusion. Evaluations by Cardiology Dr. Fonseca, Nephrology Dr. Lemon, and Psychiatry (on hold given recent events). Dehydration and malnutrition. The patient appears to have difficulty in caring for herself at home. This morning the patient found poorly responsive with epilepsy episode. The patient required transfer to MICU and was also seen by Neurology. The patient had leukocytosis which is likely transient to the epilepsy episode. Supportive care. Seen by Dr. Sanchez. Neurologic sequela appears to have resolved. Evaluation for seizures in progress. Recheck CBC and CMP in AM. Noted adjustment to medications. Remains in MICU. For pacemaker. Severe Pulmonary HTN. Pacemaker placed yesterday. Still with elevated creatinine but slowly improving. Heart rate after pacemaker in 60s. Patient is very forgetful. Lasix and Norvasc stopped by Nephrology. Concerns for patient's ability to care for herself at home given the patient's forgetfulness and unwillingness to involve her family in her care. Will have to try to maximize her time with home nursing and possibly a home day care provider. Creatinine is improving. In TRCU. Pacemaker functioning well.
--- NOTE | 2017-03-29 23:45 | CP.PCM.PN ---
Subjective - Date & Time of Evaluation Date of Evaluation: 03/29/17 Time of Evaluation: 17:30 - Subjective Subjective: Feeling better Objective - Vital Signs/Intake and Output Vital Signs (last 24 hours): Temp Pulse Resp BP Pulse Ox 98 F 60 20 134/64 98 03/29/17 10:00 03/29/17 10:00 03/29/17 10:00 03/29/17 10:00 03/29/17 06:00 Intake and Output: 03/29/17 03/30/17 18:59 06:59 Intake Total 420 Balance 420 - Medications Medications: Current Medications Acetaminophen (Tylenol 325mg Tab) 650 mg PO Q6H PRN; Protocol PRN Reason: Pain, Mild (1-3) Last Admin: 03/29/17 08:19 Dose: 650 mg Alprazolam (Xanax) 0.5 mg PO Q24H PRN; Protocol PRN Reason: Anxiety Stop: 04/01/17 19:19 Last Admin: 03/29/17 12:01 Dose: 0.5 mg Apixaban (Eliquis) 2.5 mg PO BID [facility] PRN Reason: Protocol Last Admin: 03/29/17 17:36 Dose: 2.5 mg Aspirin (Aspirin Chewable) 81 mg PO 0800 [facility] PRN Reason: Protocol Last Admin: 03/29/17 08:14 Dose: 81 mg Atorvastatin Calcium (Lipitor) 20 mg PO DAILY [facility] PRN Reason: Protocol Last Admin: 03/29/17 10:51 Dose: 20 mg Calcium/Vitamin D (Oscal-D 250 Mg-125 Units Tab) 1 tab PO BID [facility] Last Admin: 03/29/17 17:25 Dose: 1 tab Docusate Sodium (Colace) 100 mg PO DAILY [facility] PRN Reason: Protocol Last Admin: 03/29/17 10:43 Dose: 100 mg Ferrous Gluconate (Fergon) 324 mg PO TID [facility] PRN Reason: Protocol Last Admin: 03/29/17 17:24 Dose: 324 mg Isosorbide Mononitrate (Imdur Er) 30 mg PO DAILY [facility] PRN Reason: Protocol Last Admin: 03/29/17 10:51 Dose: 30 mg Levalbuterol HCl (Xopenex) 0.63 mg IH [id number] PRN; Protocol PRN Reason: Shortness of Breath Levetiracetam (Keppra) 500 mg PO BID [facility] PRN Reason: Protocol Last Admin: 03/29/17 17:24 Dose: 500 mg Multivitamins (Thera Tab) 1 tab PO 0800 [facility] PRN Reason: Protocol Last Admin: 03/29/17 08:15 Dose: 1 tab Pantoprazole Sodium (Protonix Ec Tab) 40 mg PO 0600 [facility] PRN Reason: Protocol Last Admin: 03/29/17 05:09 Dose: 40 mg Polyethylene Glycol (Miralax) 17 gm PO BID [facility] PRN Reason: Protocol Last Admin: 03/29/17 17:25 Dose: 17 gm - Labs Labs: 03/27/17 08:00 03/27/17 08:00 - Head Exam Head Exam: ATRAUMATIC - Eye Exam Eye Exam: Normal appearance - ENT Exam ENT Exam: Mucous Membranes Dry - Respiratory Exam Respiratory Exam: NORMAL BREATHING PATTERN - Cardiovascular Exam Cardiovascular Exam: +S1, +S2 - GI/Abdominal Exam GI & Abdominal Exam: Normal Bowel Sounds Assessment and Plan (1) Iron deficiency anemia Assessment & Plan: s/p PRBC transfusion and IV iron on PO iron Status: Acute (2) Renal cell cancer Assessment & Plan: in remission Status: Acute
[2017-03-30] MEDS: Pantoprazole 40 mg EC Tab PO SCH (05:42)
[2017-03-30] MEDS: Multivitamin Therapeutic Tab PO SCH (08:42)
[2017-03-30] MEDS: Oxycodone/Acetaminophen 2.5/325 mg Tab PO PRN ×2 (09:42→18:15)
[2017-03-30] MEDS: Calcium-Vit D 250 mg-125 Units Tab UD PO SCH ×2 (09:43→17:30)
[2017-03-30] MEDS: POLYETHYLENE GLYCOL 3350 17 GM/Dose PACKET PO SCH ×2 (09:43→17:30)
--- NOTE | 2017-03-30 12:06 | CP.PCM.PN ---
Subjective - Date & Time of Evaluation Date of Evaluation: 03/30/17 Time of Evaluation: 12:06 - Subjective Subjective: Follow up Nephrology Consultation: Assessment: Recent acute Kidney injury: improved Chronic Kidney Disease Stage 3 (N18.3) proteinuria possibly due to HTN, age related decline, and s/p Rt nephrectomy due to hx of RCC ? symptomatic Anemia chronic, Hypertension controlled (I12.9) Vit D insufficiency with secondary hyperparathyroidism hx of severe pulmonary HTN (RVSP 81 mm Hg) and moderate to severe LVH hx of dementia bradycardia s/p PPM Plan no acute need of renal replacement therapy at this time Hypertension control with meds as ordered. no ACEI/ARB due to PATRICIA and BP controlled She is already on statin started on iron 324 mg TID and MVI d/c IV lasix and norvasc as BP controlled and pt not fluid overloaded anemia management as per primary team and heme added oscal/D 1 tab bid Dose meds/antibiotics for reduced GFR. Avoid fleets enema/magnesium based laxatives. Avoid nephrotoxins/NSAIDs anemia management as per heme Further work up as per primary team Thanks for allowing me to participate in care of your patient. Will follow patient with you. Please call if any Qs Dr Jt Lemon Office: [phone] Chief Complaint: none Reason for consult: CKD and PATRICIA HPI: Pt is a 81 y/o F with hx of hypertension (20 years) , renal cell cancer s/ p unilateral total nephrectomy, CKD stage 3 with baseline cr 1.4-1.7 since 2017 but intermittent episodes of PATRICIA, chronic anemia, A fib admitted with SOB, PATRICIA, bradycardia s/p PPM, anemia now in rehab. seen for renal consult now she feels better. denies SOB/chest pain/nausea or urinary complaints. denies nsaids ROS: Constitutional Symptoms: Denies fever. No chills. No Recent Weight Changes Eyes: denies change in vision, denies watery eyes, denies double vision Ears/Nose/Mouth/Throat: Denies Abnormal Taste. No Bad breath or Bad Taste. Cardiovascular: No chest pain. There is no shortness of breath. No palpitations. Pulmonary: improved shortness of breath no cough. Gastrointestinal: denies abdominal pain No nausea. No vomiting. Denies change in bowel habits. Denies Bleeding rest all other negative Physical Examination: General Appearance: Comfortable, in no acute respiratory distress, co-operative . Vitals reviewed and noted as below Head; Atraumatic, normocephalic ENT: no ulcers no thrush. Tongue is midline. Oropharynx: no rash or ulcers. EYES: Pupils are equal, round and reactive to light accommodation. Eye muscles and extraocular movement intact. Sclera is anicteric. Neck; supple no lymphadenopathy, no thyromegaly or bruit Lungs: Normal respiratory rate/effort. Breath sounds bilateral equal and clear Heart: Normal rate. s1s2 normal. No rub or gallop. Extremities: no edema. No varicose veins Neurological: Patient is alert, awake and oriented x3 but seems forgetful, sometime trying to make up for it. No other focal deficit. Strength bilateral appropriate and equal Skin: Warm and dry. Normal turgor. No rash. Palpitation: Normal elasticity for age Abdomen: Abdomen is soft. Bowel sounds +. There is no abdominal tenderness, no guarding/rigidity or organomegaly Psych: lack insight and has normal affect/mood MSK: no joint tenderness or swelling. Digits and nails normal, no deformity : kidney or bladder not palpable Labs/imaging/EKG reviewed. Past medical history, past surgical history,social history, allergy reviewed and noted as below FAMILy HX; no hx of CKD. non contributory work up: CT 2017: s/p Rt nephrectomy, left kidney unremarkable Vit D 35 PTH 70 Objective - Vital Signs/Intake and Output Vital Signs (last 24 hours): Temp Pulse Resp BP Pulse Ox 98 F 60 19 134/64 98 03/29/17 10:00 03/29/17 10:00 03/30/17 10:00 03/29/17 10:00 03/29/17 06:00 Intake and Output: 03/30/17 03/30/17 06:59 18:59 Output Total 200 Balance -200 - Medications Medications: Current Medications Acetaminophen (Tylenol 325mg Tab) 650 mg PO Q6H PRN; Protocol PRN Reason: Pain, Mild (1-3) Last Admin: 03/30/17 05:45 Dose: 650 mg Alprazolam (Xanax) 0.5 mg PO Q24H PRN; Protocol PRN Reason: Anxiety Stop: 04/01/17 19:19 Last Admin: 03/29/17 12:01 Dose: 0.5 mg Apixaban (Eliquis) 2.5 mg PO BID [facility] PRN Reason: Protocol Last Admin: 03/30/17 09:42 Dose: 2.5 mg Aspirin (Aspirin Chewable) 81 mg PO 0800 [facility] PRN Reason: Protocol Last Admin: 03/30/17 08:42 Dose: 81 mg Atorvastatin Calcium (Lipitor) 20 mg PO DAILY [facility] PRN Reason: Protocol Last Admin: 03/30/17 09:43 Dose: 20 mg Calcium/Vitamin D (Oscal-D 250 Mg-125 Units Tab) 1 tab PO BID [facility] Last Admin: 03/30/17 09:43 Dose: 1 tab Docusate Sodium (Colace) 100 mg PO DAILY [facility] PRN Reason: Protocol Last Admin: 03/30/17 09:42 Dose: 100 mg Ferrous Gluconate (Fergon) 324 mg PO TID [facility] PRN Reason: Protocol Last Admin: 03/30/17 09:42 Dose: 324 mg Isosorbide Mononitrate (Imdur Er) 30 mg PO DAILY [facility] PRN Reason: Protocol Last Admin: 03/30/17 09:43 Dose: 30 mg Levalbuterol HCl (Xopenex) 0.63 mg IH [id number] PRN; Protocol PRN Reason: Shortness of Breath Levetiracetam (Keppra) 500 mg PO BID [facility] PRN Reason: Protocol Last Admin: 03/30/17 09:43 Dose: 500 mg Multivitamins (Thera Tab) 1 tab PO 0800 [facility] PRN Reason: Protocol Last Admin: 03/30/17 08:42 Dose: 1 tab Oxycodone/Acetaminophen (Percocet 2.5/325 Mg Tab) 1 tab PO Q12H PRN PRN Reason: Pain, moderate (4-7) Last Admin: 03/30/17 09:42 Dose: 1 tab Pantoprazole Sodium (Protonix Ec Tab) 40 mg PO 0600 [facility] PRN Reason: Protocol Last Admin: 03/30/17 05:42 Dose: 40 mg Polyethylene Glycol (Miralax) 17 gm PO BID [facility] PRN Reason: Protocol Last Admin: 03/30/17 09:43 Dose: 17 gm - Labs Labs: 03/27/17 08:00 03/27/17 08:00
--- NOTE | 2017-03-30 13:21 | CP.PCM.CON ---
History of Present Illness - History of Present Illness History of Present Illness: 81 yr old woman, well known to our service, who was initially in the ICU, had a seizure presenting with word finding difficulty, found to have a left parietal lobe stroke, now stable. She has a pmh of dyspnea, renal disease, and opiod use. She has marked bradycardia, who had pacemaker placed for chronic afibMarked bradycardia down to the 30s now. mRI : shows left parietal stroke, small PMH/PSH: as above FH/SH: noncontirbutory All: nkda. ON exam: normal neurological exam. AAOX3. Pupils 3mm-2mm with light. CN 2-12 intact. EOMI. Speech fluent. Normal strenght. Sensory: decreased vibration sense. Gait not tested. +1 dtr ul and ll bl. Toes downgoing. No clonus. Past Patient History - Infectious Disease Hx of Infectious Diseases: None - Tetanus Immunizations Tetanus Immunization: >10 years Ago - Past Medical History & Family History Past Medical History?: Yes - Past Social History Smoking Status: Never Smoked - CARDIAC Hx Cardiac Disorders: Yes Hx Congestive Heart Failure: Yes Hx Hypertension: Yes - PULMONARY Hx Respiratory Disorders: No - NEUROLOGICAL Hx Dementia: Yes - HEENT Hx HEENT Problems: Yes (glasses) - RENAL Hx Chronic Kidney Disease: Yes - ENDOCRINE/METABOLIC Hx Endocrine Disorders: No - HEMATOLOGICAL/ONCOLOGICAL Hx Blood Disorders: Yes Hx Anemia: Yes - INTEGUMENTARY Hx Dermatological Problems: No - MUSCULOSKELETAL/RHEUMATOLOGICAL Hx Arthritis: Yes - GASTROINTESTINAL Hx Gastroesophageal Reflux: Yes - GENITOURINARY/GYNECOLOGICAL Hx Genitourinary Disorders: No - PSYCHIATRIC Hx Psychophysiologic Disorder: Yes Hx Anxiety: Yes - SURGICAL HISTORY Hx Surgeries: No - ANESTHESIA Hx Anesthesia Reactions: No Hx Malignant Hyperthermia: No Meds Allergies/Adverse Reactions: Allergies Allergy/AdvReac Type Severity Reaction Status Date / Time No Known Allergies Allergy Verified 03/26/17 04:42 - Medications Medications: Current Medications Acetaminophen (Tylenol 325mg Tab) 650 mg PO Q6H PRN; Protocol PRN Reason: Pain, Mild (1-3) Last Admin: 03/30/17 05:45 Dose: 650 mg Alprazolam (Xanax) 0.5 mg PO Q24H PRN; Protocol PRN Reason: Anxiety Stop: 04/01/17 19:19 Last Admin: 03/29/17 12:01 Dose: 0.5 mg Apixaban (Eliquis) 2.5 mg PO BID [facility] PRN Reason: Protocol Last Admin: 03/30/17 09:42 Dose: 2.5 mg Aspirin (Aspirin Chewable) 81 mg PO 0800 [facility] PRN Reason: Protocol Last Admin: 03/30/17 08:42 Dose: 81 mg Atorvastatin Calcium (Lipitor) 20 mg PO DAILY [facility] PRN Reason: Protocol Last Admin: 03/30/17 09:43 Dose: 20 mg Calcium/Vitamin D (Oscal-D 250 Mg-125 Units Tab) 1 tab PO BID [facility] Last Admin: 03/30/17 09:43 Dose: 1 tab Docusate Sodium (Colace) 100 mg PO DAILY [facility] PRN Reason: Protocol Last Admin: 03/30/17 09:42 Dose: 100 mg Ferrous Gluconate (Fergon) 324 mg PO TID [facility] PRN Reason: Protocol Last Admin: 03/30/17 09:42 Dose: 324 mg Isosorbide Mononitrate (Imdur Er) 30 mg PO DAILY [facility] PRN Reason: Protocol Last Admin: 03/30/17 09:43 Dose: 30 mg Levalbuterol HCl (Xopenex) 0.63 mg IH [id number] PRN; Protocol PRN Reason: Shortness of Breath Levetiracetam (Keppra) 500 mg PO BID [facility] PRN Reason: Protocol Last Admin: 03/30/17 09:43 Dose: 500 mg Multivitamins (Thera Tab) 1 tab PO 0800 [facility] PRN Reason: Protocol Last Admin: 03/30/17 08:42 Dose: 1 tab Oxycodone/Acetaminophen (Percocet 2.5/325 Mg Tab) 1 tab PO Q12H PRN PRN Reason: Pain, moderate (4-7) Last Admin: 03/30/17 09:42 Dose: 1 tab Pantoprazole Sodium (Protonix Ec Tab) 40 mg PO 0600 [facility] PRN Reason: Protocol Last Admin: 03/30/17 05:42 Dose: 40 mg Polyethylene Glycol (Miralax) 17 gm PO BID [facility] PRN Reason: Protocol Last Admin: 03/30/17 09:43 Dose: 17 gm Results - Vital Signs Recent Vital Signs: Last Vital Signs Temp 98 F 03/29/17 10:00 Pulse 60 03/29/17 10:00 Resp 19 03/30/17 10:00 BP 134/64 03/29/17 10:00 Pulse Ox 98 03/29/17 06:00 - Labs Result Diagrams: 03/27/17 08:00 03/27/17 08:00 Labs: Laboratory Results - last 24 hr 03/26/17 12:40 PTH Intact Whole Molec 70 H Assessment & Plan - Assessment and Plan (Free Text) Assessment: 81 yr old woman with past stroke, normal EEG, who had an isolated seizure, and is now stable. She should remain on antiepileptic medications for several months.
--- NOTE | 2017-03-30 18:06 | CP.PCM.PN ---
Subjective - Date & Time of Evaluation Date of Evaluation: 03/30/17 Time of Evaluation: 15:45 - Subjective Subjective: Internal Medicine/Infectious Disease Follow Up: March 30, 2017 81 yo AA female presenting with Dyspnea on Exertion. Recently discharged from [facility]. No fevers, chills, nausea, vomiting, or diarrhea. Mental lability the past 2 weeks. I do not feel that the patient is able to care for herself at home. I also am unable to evaluate if the patient is taking her medications properly at home. Given the laboratories, the patient is showing signs of dehydration and malnutrition. Multiple hospital admissions in the past 2 months. This morning the patient was found unresponsive by nursing staff. Rapid response initiated. The patient was also found to have intermittent arm twitching. Evaluated by House Doctor (Dr. Montanez) and consults to MICU and Neurology requested. As far as patient's opioid use is concerned, she is written for 20 Percocet doses each month. Checking [employer] website in [place] shows no other prescriptions for opioids filled by the patient. She lives alone. Noted Keppra started. Leukocytosis likely secondary to epilepsy episode. 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 The patient is currently arousable. Had some dysarthria with paraphasic errors , ideamotor and construction apraxia as well as expressive aphasia but seems to be resolved today. The patient is noted to have right facial weakness yesterday but this seems to have resolved today as well. Noted all erp implementation consultant notes today. Marked bradycardia down to the 30s during this hospitalization. Discussed with Dr. Fonseca. Patient requires pacemaker for the chronic atrial fibrillation with marked bradycardia. Pacemaker placed. Pulse at 60s today. Creatinine still remains elevated at 1.5 (2.4 yesterday) Neurologically, the patient is back to baseline again. AAO x 2 at baseline. She has been emotionally labile for the last few months. Pacemaker functioning normally. In TCU now. Long discussion with the patient Wednesday. Unfortunately, the patient does NOT want to involve her family. She is very forgetful with a poor short term memory. She has done well in the hospital given that here she has 24/7 care. The patient fails to understand some of the root cause of her problems and the importance of involving family in aiding with her care. The patient does not recall how long she has been in the hospital, how many times she has been in the hospital, and even if she ate or taken her medications. Repeat conversations shows the same issues of poor short term memory. Objective - Vital Signs/Intake and Output Vital Signs (last 24 hours): Temp Pulse Resp BP Pulse Ox 98.6 F 60 18 119/56 L 96 03/30/17 16:00 03/30/17 16:00 03/30/17 16:00 03/30/17 16:00 03/30/17 16:00 Intake and Output: 03/30/17 03/30/17 06:59 18:59 Output Total 200 Balance -200 - Medications Medications: Current Medications Acetaminophen (Tylenol 325mg Tab) 650 mg PO Q6H PRN; Protocol PRN Reason: Pain, Mild (1-3) Last Admin: 03/30/17 05:45 Dose: 650 mg Alprazolam (Xanax) 0.5 mg PO Q24H PRN; Protocol PRN Reason: Anxiety Stop: 04/01/17 19:19 Last Admin: 03/29/17 12:01 Dose: 0.5 mg Apixaban (Eliquis) 2.5 mg PO BID ISAI PRN Reason: Protocol Last Admin: 03/30/17 17:29 Dose: 2.5 mg Aspirin (Aspirin Chewable) 81 mg PO 0800 ISAI PRN Reason: Protocol Last Admin: 03/30/17 08:42 Dose: 81 mg Atorvastatin Calcium (Lipitor) 20 mg PO DAILY ISAI PRN Reason: Protocol Last Admin: 03/30/17 09:43 Dose: 20 mg Calcium/Vitamin D (Oscal-D 250 Mg-125 Units Tab) 1 tab PO BID ISAI Last Admin: 03/30/17 17:30 Dose: 1 tab Docusate Sodium (Colace) 100 mg PO DAILY ISAI PRN Reason: Protocol Last Admin: 03/30/17 09:42 Dose: 100 mg Ferrous Gluconate (Fergon) 324 mg PO TID ISAI PRN Reason: Protocol Last Admin: 03/30/17 17:29 Dose: 324 mg Isosorbide Mononitrate (Imdur Er) 30 mg PO DAILY ISAI PRN Reason: Protocol Last Admin: 03/30/17 09:43 Dose: 30 mg Levalbuterol HCl (Xopenex) 0.63 mg IH [id number] PRN; Protocol PRN Reason: Shortness of Breath Levetiracetam (Keppra) 500 mg PO BID ISAI PRN Reason: Protocol Last Admin: 03/30/17 17:30 Dose: 500 mg Multivitamins (Thera Tab) 1 tab PO 0800 ISAI PRN Reason: Protocol Last Admin: 03/30/17 08:42 Dose: 1 tab Oxycodone/Acetaminophen (Percocet 2.5/325 Mg Tab) 1 tab PO Q12H PRN PRN Reason: Pain, moderate (4-7) Last Admin: 03/30/17 09:42 Dose: 1 tab Pantoprazole Sodium (Protonix Ec Tab) 40 mg PO 0600 ISAI PRN Reason: Protocol Last Admin: 03/30/17 05:42 Dose: 40 mg Polyethylene Glycol (Miralax) 17 gm PO BID ISAI PRN Reason: Protocol Last Admin: 03/30/17 17:30 Dose: 17 gm - Labs Labs: 03/27/17 08:00 03/27/17 08:00 - Constitutional Appears: Non-toxic, No Acute Distress, Chronically Ill - Head Exam Head Exam: ATRAUMATIC, NORMOCEPHALIC - Eye Exam Eye Exam: EOMI, PERRL Pupil Exam: NORMAL ACCOMODATION, PERRL - ENT Exam ENT Exam: Mucous Membranes Moist, Normal External Ear Exam, TM's Normal Bilaterally - Neck Exam Neck Exam: Full ROM, Normal Inspection - Respiratory Exam Respiratory Exam: Clear to Ausculation Bilateral, NORMAL BREATHING PATTERN. absent: Rales, Rhonchi, Wheezes - Cardiovascular Exam Cardiovascular Exam: REGULAR RHYTHM, RRR, +S1, +S2 - GI/Abdominal Exam GI & Abdominal Exam: Soft, Normal Bowel Sounds. absent: Distended, Tenderness - Extremities Exam Extremities Exam: Full ROM, Normal Inspection - Neurological Exam Neurological Exam: Alert, Awake, CN II-XII Intact Additional comments: AAO x 2, poor concept of time. - Psychiatric Exam Psychiatric exam: Normal Affect, Normal Mood - Skin Skin Exam: Intact, Normal Color Assessment and Plan - Assessment and Plan (Free Text) Assessment: 81 yo AA female with complaints of Dyspnea on Exertion. Unclear if the patient takes her medication properly at home. The patient has run off previous home nursing help in the past few months. Recent hospitalizations to [facility] [place] [facility] Chronically low heart rate. Periods of confusion. Evaluations by Cardiology Dr. Fonseca, Nephrology Dr. Lemon, and Psychiatry (on hold given recent events). Dehydration and malnutrition. The patient appears to have difficulty in caring for herself at home. This morning the patient found poorly responsive with epilepsy episode. The patient required transfer to MICU and was also seen by Neurology. The patient had leukocytosis which is likely transient to the epilepsy episode. Supportive care. Seen by Dr. Sanchez. Neurologic sequela appears to have resolved. Evaluation for seizures in progress. Recheck CBC and CMP in AM. Noted adjustment to medications. On Keppra. Remains in MICU. For pacemaker. Severe Pulmonary HTN. Pacemaker placed yesterday. Still with elevated creatinine but slowly improving. Heart rate after pacemaker in 60s. Patient is very forgetful. Lasix and Norvasc stopped by Nephrology. Concerns for patient's ability to care for herself at home given the patient's forgetfulness and unwillingness to involve her family in her care. Will have to try to maximize her time with home nursing and possibly a supervisor home energy consultant. Creatinine is improving. In TRCU. Pacemaker functioning well. No new issues.
--- NOTE | 2017-03-30 20:56 | PN ---
DATE: 03/30/2017 CARDIOLOGY FOLLOWUP SUBJECTIVE: The patient is in bed without distress. PHYSICAL EXAMINATION VITAL SIGNS: Blood pressure 134/64, heart rate is paced in the 60s. NECK: Negative JVD. LUNGS: Without rales. HEART: S1, S2. EXTREMITIES: Without edema. LABORATORY DATA: No labs were drawn today. IMPRESSION: 1. Status post symptomatic bradycardia. 2. Status post syncope. 3. Status post pacemaker placement. 4. Fatigue. Given these findings, her pacemaker will protect her bradycardia. We will continue Physical Therapy. Oswald Fonseca MD
[2017-03-31] MEDS: Oxycodone/Acetaminophen 2.5/325 mg Tab PO PRN ×2 (05:06→17:16)
[2017-03-31] MEDS: Pantoprazole 40 mg EC Tab PO SCH (05:06)
[2017-03-31] MEDS: Multivitamin Therapeutic Tab PO SCH (07:51)
[2017-03-31] MEDS: POLYETHYLENE GLYCOL 3350 17 GM/Dose PACKET PO SCH ×2 (09:39→17:17)
[2017-03-31] MEDS: Calcium-Vit D 250 mg-125 Units Tab UD PO SCH ×2 (09:40→17:18)
--- NOTE | 2017-03-31 14:25 | CP.PCM.PN ---
Subjective - Date & Time of Evaluation Date of Evaluation: 03/31/17 Time of Evaluation: 14:25 - Subjective Subjective: Follow up Nephrology Consultation: Assessment: Recent acute Kidney injury: improved Chronic Kidney Disease Stage 3 (N18.3) proteinuria possibly due to HTN, age related decline, and s/p Rt nephrectomy due to hx of RCC ? symptomatic Anemia chronic, Hypertension controlled (I12.9) Vit D insufficiency with secondary hyperparathyroidism hx of severe pulmonary HTN (RVSP 81 mm Hg) and moderate to severe LVH hx of dementia bradycardia s/p PPM Plan no acute need of renal replacement therapy at this time Hypertension control with meds as ordered. no ACEI/ARB due to PATRICIA and BP controlled She is already on statin started on iron 324 mg TID and MVI d/c IV lasix and norvasc as BP controlled and pt not fluid overloaded anemia management as per primary team and heme added oscal/D 1 tab bid Dose meds/antibiotics for reduced GFR. Avoid fleets enema/magnesium based laxatives. Avoid nephrotoxins/NSAIDs anemia management as per heme Further work up as per primary team Thanks for allowing me to participate in care of your patient. Will follow patient with you. Please call if any Qs Dr Jt Lemon Office: [phone] Chief Complaint: none Reason for consult: CKD and PATRICIA HPI: Pt is a 81 y/o F with hx of hypertension (20 years) , renal cell cancer s/ p unilateral total nephrectomy, CKD stage 3 with baseline cr 1.4-1.7 since 2017 but intermittent episodes of PATRICIA, chronic anemia, A fib admitted with SOB, PATRICIA, bradycardia s/p PPM, anemia now in rehab. seen for renal consult now she feels better. denies SOB/chest pain/nausea or urinary complaints. denies nsaids ROS: Constitutional Symptoms: Denies fever. No chills. No Recent Weight Changes Eyes: denies change in vision, denies watery eyes, denies double vision Ears/Nose/Mouth/Throat: Denies Abnormal Taste. No Bad breath or Bad Taste. Cardiovascular: No chest pain. There is no shortness of breath. No palpitations. Pulmonary: improved shortness of breath no cough. Gastrointestinal: denies abdominal pain No nausea. No vomiting. Denies change in bowel habits. Denies Bleeding rest all other negative Physical Examination: General Appearance: Comfortable, in no acute respiratory distress, co-operative . Vitals reviewed and noted as below Head; Atraumatic, normocephalic ENT: no ulcers no thrush. Tongue is midline. Oropharynx: no rash or ulcers. EYES: Pupils are equal, round and reactive to light accommodation. Eye muscles and extraocular movement intact. Sclera is anicteric. Neck; supple no lymphadenopathy, no thyromegaly or bruit Lungs: Normal respiratory rate/effort. Breath sounds bilateral equal and clear Heart: Normal rate. s1s2 normal. No rub or gallop. Extremities: no edema. No varicose veins Neurological: Patient is alert, awake and oriented x3 but seems forgetful, sometime trying to make up for it. No other focal deficit. Strength bilateral appropriate and equal Skin: Warm and dry. Normal turgor. No rash. Palpitation: Normal elasticity for age Abdomen: Abdomen is soft. Bowel sounds +. There is no abdominal tenderness, no guarding/rigidity or organomegaly Psych: lack insight and has normal affect/mood MSK: no joint tenderness or swelling. Digits and nails normal, no deformity : kidney or bladder not palpable Labs/imaging/EKG reviewed. Past medical history, past surgical history,social history, allergy reviewed and noted as below FAMILy HX; no hx of CKD. non contributory work up: CT 2017: s/p Rt nephrectomy, left kidney unremarkable Vit D 35 PTH 70 Objective - Vital Signs/Intake and Output Vital Signs (last 24 hours): Temp Pulse Resp BP Pulse Ox 98.6 F 60 18 119/56 L 96 03/30/17 16:00 03/30/17 16:00 03/30/17 16:00 03/30/17 16:00 03/30/17 16:00 - Medications Medications: Current Medications Acetaminophen (Tylenol 325mg Tab) 650 mg PO Q6H PRN; Protocol PRN Reason: Pain, Mild (1-3) Last Admin: 03/30/17 05:45 Dose: 650 mg Alprazolam (Xanax) 0.5 mg PO Q24H PRN; Protocol PRN Reason: Anxiety Stop: 04/01/17 19:19 Last Admin: 03/31/17 02:28 Dose: 0.5 mg Apixaban (Eliquis) 2.5 mg PO BID ISAI PRN Reason: Protocol Last Admin: 03/31/17 09:38 Dose: 2.5 mg Aspirin (Aspirin Chewable) 81 mg PO 0800 ISAI PRN Reason: Protocol Last Admin: 03/31/17 07:50 Dose: 81 mg Atorvastatin Calcium (Lipitor) 20 mg PO DAILY ISAI PRN Reason: Protocol Last Admin: 03/31/17 09:39 Dose: 20 mg Calcium/Vitamin D (Oscal-D 250 Mg-125 Units Tab) 1 tab PO BID ISAI Last Admin: 03/31/17 09:40 Dose: 1 tab Docusate Sodium (Colace) 100 mg PO DAILY ISAI PRN Reason: Protocol Last Admin: 03/31/17 09:38 Dose: 100 mg Ferrous Gluconate (Fergon) 324 mg PO 0800,1200,1800 ISAI PRN Reason: Protocol Last Admin: 03/31/17 12:09 Dose: 324 mg Isosorbide Mononitrate (Imdur Er) 30 mg PO 0630 ISAI PRN Reason: Protocol Levalbuterol HCl (Xopenex) 0.63 mg IH [id number] PRN; Protocol PRN Reason: Shortness of Breath Levetiracetam (Keppra) 500 mg PO BID ISAI PRN Reason: Protocol Last Admin: 03/31/17 09:39 Dose: 500 mg Multivitamins (Thera Tab) 1 tab PO 0800 ISAI PRN Reason: Protocol Last Admin: 03/31/17 07:51 Dose: 1 tab Oxycodone/Acetaminophen (Percocet 2.5/325 Mg Tab) 1 tab PO Q12H PRN PRN Reason: Pain, moderate (4-7) Last Admin: 03/31/17 05:06 Dose: 1 tab Pantoprazole Sodium (Protonix Ec Tab) 40 mg PO 0600 ISAI PRN Reason: Protocol Last Admin: 03/31/17 05:06 Dose: 40 mg Polyethylene Glycol (Miralax) 17 gm PO BID ISAI PRN Reason: Protocol Last Admin: 03/31/17 09:39 Dose: 17 gm - Labs Labs: 03/27/17 08:00 03/27/17 08:00
--- NOTE | 2017-03-31 20:16 | PN ---
DATE: 03/31/2017 CARDIOLOGY FOLLOWUP SUBJECTIVE: The patient is in the TCU complaining of diffuse body aches. OBJECTIVE: VITAL SIGNS: Blood pressure 119/56, heart rate in the 60s. NECK: Negative JVD. LUNGS: Without rales. HEART: S1, S2. EXTREMITIES: Without edema. LABORATORIES AND CHEMISTRIES: Not done. IMPRESSION: 1. Renal insufficiency. 2. Resolution of sinus of a sinus bradycardia. 3. Pacemaker placement. 4. No further near-syncopal episodes. Given these findings, we will continue physical therapy in the TCU. In the dictation Neck: Oswald Fonseca MD
--- NOTE | 2017-03-31 20:21 | CP.PCM.PN ---
Subjective - Date & Time of Evaluation Date of Evaluation: 03/31/17 Time of Evaluation: 18:00 - Subjective Subjective: Internal Medicine/Infectious Disease Follow Up: March 31, 2017 81 yo AA female presenting with Dyspnea on Exertion. Recently [place] [facility] No fevers, chills, nausea, vomiting, or diarrhea. Mental lability the past 2 weeks. I do not feel that the patient is able to care for herself at home. I also am unable to evaluate if the patient is taking her medications properly at home. Given the laboratories, the patient is showing signs of dehydration and malnutrition. Multiple hospital admissions in the past 2 months. This morning the patient was found unresponsive by nursing staff. Rapid response initiated. The patient was also found to have intermittent arm twitching. Evaluated by House Doctor (Dr. Montanez) and consults to MICU and Neurology requested. As far as patient's opioid use is concerned, she is written for 20 Percocet doses each month. Checking [employer] website in [place] shows no other prescriptions for opioids filled by the patient. She lives alone. Noted Keppra started. Leukocytosis likely secondary to epilepsy episode. 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 The patient is currently arousable. Had some dysarthria with paraphasic errors , ideamotor and construction apraxia as well as expressive aphasia but seems to be resolved today. The patient is noted to have right facial weakness yesterday but this seems to have resolved today as well. Noted all surgery consultant notes today. Marked bradycardia down to the 30s during this hospitalization. Discussed with Dr. Fonseca. Patient requires pacemaker for the chronic atrial fibrillation with marked bradycardia. Pacemaker placed. Pulse at 60s today. Creatinine still remains elevated at 1.5 (2.4 yesterday) Neurologically, the patient is back to baseline again. AAO x 2 at baseline. She has been emotionally labile for the last few months. Pacemaker functioning normally. In TCU now. Long discussion with the patient Wednesday. Unfortunately, the patient does NOT want to involve her family. She is very forgetful with a poor short term memory. She has done well in the hospital given that here she has 24/7 care. The patient fails to understand some of the root cause of her problems and the importance of involving family in aiding with her care. The patient does not recall how long she has been in the hospital, how many times she has been in the hospital, and even if she ate or taken her medications. Repeat conversations shows the same issues of poor short term memory. For some reason, the patient is trusting relative strangers to help with her care over her relatives. Discussed care with the patient's son. Supportive care. Objective - Vital Signs/Intake and Output Vital Signs (last 24 hours): Temp Pulse Resp BP Pulse Ox 98.5 F 63 15 136/74 100 03/31/17 17:42 03/31/17 17:42 03/31/17 17:42 03/31/17 17:42 03/31/17 17:42 - Medications Medications: Current Medications Acetaminophen (Tylenol 325mg Tab) 650 mg PO Q6H PRN; Protocol PRN Reason: Pain, Mild (1-3) Last Admin: 03/30/17 05:45 Dose: 650 mg Alprazolam (Xanax) 0.5 mg PO Q24H PRN; Protocol PRN Reason: Anxiety Stop: 04/01/17 19:19 Last Admin: 03/31/17 02:28 Dose: 0.5 mg Apixaban (Eliquis) 2.5 mg PO BID ISAI PRN Reason: Protocol Last Admin: 03/31/17 17:17 Dose: 2.5 mg Aspirin (Aspirin Chewable) 81 mg PO 0800 ISAI PRN Reason: Protocol Last Admin: 03/31/17 07:50 Dose: 81 mg Atorvastatin Calcium (Lipitor) 20 mg PO DAILY ISAI PRN Reason: Protocol Last Admin: 03/31/17 09:39 Dose: 20 mg Calcium/Vitamin D (Oscal-D 250 Mg-125 Units Tab) 1 tab PO BID ISAI Last Admin: 03/31/17 17:18 Dose: 1 tab Docusate Sodium (Colace) 100 mg PO DAILY ISAI PRN Reason: Protocol Last Admin: 03/31/17 09:38 Dose: 100 mg Ferrous Gluconate (Fergon) 324 mg PO 0800,1200,1800 ISAI PRN Reason: Protocol Last Admin: 03/31/17 17:17 Dose: 324 mg Isosorbide Mononitrate (Imdur Er) 30 mg PO 0630 ISAI PRN Reason: Protocol Levalbuterol HCl (Xopenex) 0.63 mg IH [id number] PRN; Protocol PRN Reason: Shortness of Breath Levetiracetam (Keppra) 500 mg PO BID ISAI PRN Reason: Protocol Last Admin: 03/31/17 17:17 Dose: 500 mg Multivitamins (Thera Tab) 1 tab PO 0800 ISAI PRN Reason: Protocol Last Admin: 03/31/17 07:51 Dose: 1 tab Oxycodone/Acetaminophen (Percocet 2.5/325 Mg Tab) 1 tab PO Q12H PRN PRN Reason: Pain, moderate (4-7) Last Admin: 03/31/17 17:16 Dose: 1 tab Pantoprazole Sodium (Protonix Ec Tab) 40 mg PO 0600 ISAI PRN Reason: Protocol Last Admin: 03/31/17 05:06 Dose: 40 mg Polyethylene Glycol (Miralax) 17 gm PO BID ISAI PRN Reason: Protocol Last Admin: 03/31/17 17:17 Dose: 17 gm - Labs Labs: 03/27/17 08:00 03/27/17 08:00 - Constitutional Appears: Non-toxic, No Acute Distress, Chronically Ill - Head Exam Head Exam: ATRAUMATIC, NORMOCEPHALIC - Eye Exam Eye Exam: EOMI, PERRL Pupil Exam: NORMAL ACCOMODATION, PERRL - ENT Exam ENT Exam: Mucous Membranes Moist, Normal External Ear Exam, TM's Normal Bilaterally - Neck Exam Neck Exam: Full ROM, Normal Inspection - Respiratory Exam Respiratory Exam: Clear to Ausculation Bilateral, Wheezes, NORMAL BREATHING PATTERN. absent: Rales, Rhonchi - Cardiovascular Exam Cardiovascular Exam: REGULAR RHYTHM, RRR, +S1, +S2 - GI/Abdominal Exam GI & Abdominal Exam: Soft, Normal Bowel Sounds. absent: Distended, Tenderness - Extremities Exam Extremities Exam: Full ROM, Normal Inspection - Back Exam Back Exam: Full ROM, NORMAL INSPECTION - Neurological Exam Neurological Exam: Alert, Awake, CN II-XII Intact, Oriented x3 - Psychiatric Exam Psychiatric exam: Normal Affect, Normal Mood - Skin Skin Exam: Intact, Normal Color Assessment and Plan - Assessment and Plan (Free Text) Assessment: 81 yo AA female with complaints of Dyspnea on Exertion. Unclear if the patient takes her medication properly at home. The patient has run off previous home nursing help in the past few months. [place] [facility] [place] [facility] [place]. Chronically low heart rate. Periods of confusion. Evaluations by Cardiology Dr. Fonseca, Nephrology Dr. Lemon, and Psychiatry (on hold given recent events). Dehydration and malnutrition. The patient appears to have difficulty in caring for herself at home. This morning the patient found poorly responsive with epilepsy episode. The patient required transfer to MICU and was also seen by Neurology. The patient had leukocytosis which is likely transient to the epilepsy episode. Supportive care. Seen by Dr. Sanchez. Neurologic sequela appears to have resolved. Evaluation for seizures in progress. Recheck CBC and CMP in AM. Noted adjustment to medications. On Keppra. Remains in MICU. For pacemaker. Severe Pulmonary HTN. Pacemaker placed yesterday. Still with elevated creatinine but slowly improving. Heart rate after pacemaker in 60s. Patient is very forgetful. Lasix and Norvasc stopped by Nephrology. Concerns for patient's ability to care for herself at home given the patient's forgetfulness and unwillingness to involve her family in her care. Will have to try to maximize her time with home nursing and possibly a nursing home assistant administrator. Creatinine is improving. In TRCU. Pacemaker functioning well. No new issues.
--- NOTE | 2017-03-31 21:56 | CP.PCM.PN ---
Subjective - Date & Time of Evaluation Date of Evaluation: 03/31/17 Time of Evaluation: 12:00 - Subjective Subjective: No complaints. Objective - Vital Signs/Intake and Output Vital Signs (last 24 hours): Temp Pulse Resp BP Pulse Ox 98.5 F 63 15 136/74 100 03/31/17 17:42 03/31/17 17:42 03/31/17 17:42 03/31/17 17:42 03/31/17 17:42 - Medications Medications: Current Medications Acetaminophen (Tylenol 325mg Tab) 650 mg PO Q6H PRN; Protocol PRN Reason: Pain, Mild (1-3) Last Admin: 03/30/17 05:45 Dose: 650 mg Alprazolam (Xanax) 0.5 mg PO Q24H PRN; Protocol PRN Reason: Anxiety Stop: 04/01/17 19:19 Last Admin: 03/31/17 02:28 Dose: 0.5 mg Apixaban (Eliquis) 2.5 mg PO BID ISAI PRN Reason: Protocol Last Admin: 03/31/17 17:17 Dose: 2.5 mg Aspirin (Aspirin Chewable) 81 mg PO 0800 ISAI PRN Reason: Protocol Last Admin: 03/31/17 07:50 Dose: 81 mg Atorvastatin Calcium (Lipitor) 20 mg PO DAILY ISAI PRN Reason: Protocol Last Admin: 03/31/17 09:39 Dose: 20 mg Calcium/Vitamin D (Oscal-D 250 Mg-125 Units Tab) 1 tab PO BID [facility] Last Admin: 03/31/17 17:18 Dose: 1 tab Docusate Sodium (Colace) 100 mg PO DAILY ISAI PRN Reason: Protocol Last Admin: 03/31/17 09:38 Dose: 100 mg Ferrous Gluconate (Fergon) 324 mg PO 0800,1200,1800 ISAI PRN Reason: Protocol Last Admin: 03/31/17 17:17 Dose: 324 mg Isosorbide Mononitrate (Imdur Er) 30 mg PO 0630 ISAI PRN Reason: Protocol Levalbuterol HCl (Xopenex) 0.63 mg IH [id number] PRN; Protocol PRN Reason: Shortness of Breath Levetiracetam (Keppra) 500 mg PO BID ISAI PRN Reason: Protocol Last Admin: 03/31/17 17:17 Dose: 500 mg Multivitamins (Thera Tab) 1 tab PO 0800 ISAI PRN Reason: Protocol Last Admin: 03/31/17 07:51 Dose: 1 tab Oxycodone/Acetaminophen (Percocet 2.5/325 Mg Tab) 1 tab PO Q12H PRN PRN Reason: Pain, moderate (4-7) Last Admin: 03/31/17 17:16 Dose: 1 tab Pantoprazole Sodium (Protonix Ec Tab) 40 mg PO 0600 ISAI PRN Reason: Protocol Last Admin: 03/31/17 05:06 Dose: 40 mg Polyethylene Glycol (Miralax) 17 gm PO BID ISAI PRN Reason: Protocol Last Admin: 03/31/17 17:17 Dose: 17 gm - Labs Labs: 03/27/17 08:00 03/27/17 08:00 - Head Exam Head Exam: ATRAUMATIC - Eye Exam Eye Exam: Normal appearance - ENT Exam ENT Exam: Mucous Membranes Dry - Respiratory Exam Respiratory Exam: NORMAL BREATHING PATTERN - Cardiovascular Exam Cardiovascular Exam: +S1, +S2 - GI/Abdominal Exam GI & Abdominal Exam: Normal Bowel Sounds Assessment and Plan (1) Iron deficiency anemia Assessment & Plan: s/p PRBC transfusion s/p IV iron on PO iron Status: Acute (2) Renal cell cancer Assessment & Plan: in remission Status: Acute
[2017-04-01] MEDS: Oxycodone/Acetaminophen 2.5/325 mg Tab PO PRN ×2 (05:02→17:25)
[2017-04-01] MEDS: Pantoprazole 40 mg EC Tab PO SCH (05:02)
[2017-04-01] MEDS: Multivitamin Therapeutic Tab PO SCH (08:09)
[2017-04-01] MEDS: Calcium-Vit D 250 mg-125 Units Tab UD PO SCH ×2 (09:35→17:26)
[2017-04-01] MEDS: POLYETHYLENE GLYCOL 3350 17 GM/Dose PACKET PO SCH ×2 (09:36→17:26)
--- NOTE | 2017-04-01 12:23 | PN ---
DATE: 04/01/2017 CARDIOLOGY FOLLOWUP SUBJECTIVE: The patient in the TCU. She is sitting in a chair, awake, alert. Her back pain is improved. No shortness of breath. PHYSICAL EXAMINATION: VITAL SIGNS: Blood pressure 136/74, heart rate is paced in the 60s. NECK: Negative JVD. LUNGS: Without rales. HEART: S1, S2. EXTREMITIES: Without edema. LABORATORY DATA: Hemoglobin is 9.5. Chemistries: BUN and creatinine is 47 and 1.5. IMPRESSION: 1. Resolution of back pain. 2. Status post pacemaker placement. 3. Symptomatic bradycardia. 4. Resolution of syncope since placement of pacemaker. 5. Renal insufficiency. 6. Diabetes mellitus. Given these findings, the patient is hemodynamically as well as mental status farmer is much improved today. No issues related to her pacemaker. Oswald Fonseca MD
--- NOTE | 2017-04-01 14:24 | CP.PCM.PN ---
Subjective - Date & Time of Evaluation Date of Evaluation: 04/01/17 Time of Evaluation: 14:24 - Subjective Subjective: Follow up Nephrology Consultation: Assessment: Recent acute Kidney injury: improved Chronic Kidney Disease Stage 3 (N18.3) proteinuria possibly due to HTN, age related decline, and s/p Rt nephrectomy due to hx of RCC ? symptomatic Anemia chronic, Hypertension controlled (I12.9) Vit D insufficiency with secondary hyperparathyroidism hx of severe pulmonary HTN (RVSP 81 mm Hg) and moderate to severe LVH hx of dementia bradycardia s/p PPM Plan no acute need of renal replacement therapy at this time Hypertension control with meds as ordered. no ACEI/ARB due to PATRICIA and BP controlled She is already on statin started on iron 324 mg TID and MVI d/c IV lasix and norvasc as BP controlled and pt not fluid overloaded anemia management as per primary team and heme added oscal/D 1 tab bid Dose meds/antibiotics for reduced GFR. Avoid fleets enema/magnesium based laxatives. Avoid nephrotoxins/NSAIDs anemia management as per heme Further work up as per primary team Thanks for allowing me to participate in care of your patient. Will follow patient with you. Please call if any Qs Dr Jt Lemon Office: [phone] Chief Complaint: none Reason for consult: CKD and PATRICIA HPI: Pt is a 81 y/o F with hx of hypertension (20 years) , renal cell cancer s/ p unilateral total nephrectomy, CKD stage 3 with baseline cr 1.4-1.7 since 2017 but intermittent episodes of PATRICIA, chronic anemia, A fib admitted with SOB, PATRICIA, bradycardia s/p PPM, anemia now in rehab. seen for renal consult now she feels better. denies SOB/chest pain/nausea or urinary complaints. rest all other negative Physical Examination: General Appearance: Comfortable, in no acute respiratory distress, co-operative . Vitals reviewed and noted as below Head; Atraumatic, normocephalic ENT: no ulcers no thrush. Tongue is midline. Oropharynx: no rash or ulcers. EYES: Pupils are equal, round and reactive to light accommodation. Eye muscles and extraocular movement intact. Sclera is anicteric. Neck; supple no lymphadenopathy, no thyromegaly or bruit Lungs: Normal respiratory rate/effort. Breath sounds bilateral equal and clear Heart: Normal rate. s1s2 normal. No rub or gallop. Extremities: no edema. No varicose veins Neurological: Patient is alert, awake and oriented x3 but seems forgetful, sometime trying to make up for it. No other focal deficit. Strength bilateral appropriate and equal Skin: Warm and dry. Normal turgor. No rash. Palpitation: Normal elasticity for age Abdomen: Abdomen is soft. Bowel sounds +. There is no abdominal tenderness, no guarding/rigidity or organomegaly Psych: lack insight and has normal affect/mood MSK: no joint tenderness or swelling. Digits and nails normal, no deformity : kidney or bladder not palpable Labs/imaging/EKG reviewed. Past medical history, past surgical history,social history, allergy reviewed and noted as below FAMILy HX; no hx of CKD. non contributory work up: CT 2017: s/p Rt nephrectomy, left kidney unremarkable Vit D 35 PTH 70 Objective - Vital Signs/Intake and Output Vital Signs (last 24 hours): Temp Pulse Resp BP Pulse Ox 97.0 F L 18 L 98 H 136/57 L 100 04/01/17 10:00 04/01/17 10:00 04/01/17 10:00 04/01/17 10:00 03/31/17 17:42 Intake and Output: 04/01/17 04/01/17 06:59 18:59 Intake Total 300 Balance 300 - Medications Medications: Current Medications Acetaminophen (Tylenol 325mg Tab) 650 mg PO Q6H PRN; Protocol PRN Reason: Pain, Mild (1-3) Last Admin: 04/01/17 08:13 Dose: 650 mg Alprazolam (Xanax) 0.5 mg PO Q24H PRN; Protocol PRN Reason: Anxiety Stop: 04/01/17 19:19 Last Admin: 04/01/17 08:14 Dose: 0.5 mg Apixaban (Eliquis) 2.5 mg PO BID [facility] PRN Reason: Protocol Last Admin: 04/01/17 09:35 Dose: 2.5 mg Aspirin (Aspirin Chewable) 81 mg PO 0800 [facility] PRN Reason: Protocol Last Admin: 04/01/17 08:09 Dose: 81 mg Atorvastatin Calcium (Lipitor) 20 mg PO DAILY [facility] PRN Reason: Protocol Last Admin: 04/01/17 09:34 Dose: 20 mg Calcium/Vitamin D (Oscal-D 250 Mg-125 Units Tab) 1 tab PO BID [facility] Last Admin: 04/01/17 09:35 Dose: 1 tab Docusate Sodium (Colace) 100 mg PO DAILY [facility] PRN Reason: Protocol Last Admin: 04/01/17 09:34 Dose: 100 mg Ferrous Gluconate (Fergon) 324 mg PO 0800,1200,1800 [facility] PRN Reason: Protocol Last Admin: 04/01/17 12:14 Dose: 324 mg Isosorbide Mononitrate (Imdur Er) 30 mg PO 0630 [facility] PRN Reason: Protocol Last Admin: 04/01/17 05:31 Dose: 30 mg Levalbuterol HCl (Xopenex) 0.63 mg IH [id number] PRN; Protocol PRN Reason: Shortness of Breath Levetiracetam (Keppra) 500 mg PO BID [facility] PRN Reason: Protocol Last Admin: 04/01/17 09:35 Dose: 500 mg Multivitamins (Thera Tab) 1 tab PO 0800 [facility] PRN Reason: Protocol Last Admin: 04/01/17 08:09 Dose: 1 tab Oxycodone/Acetaminophen (Percocet 2.5/325 Mg Tab) 1 tab PO Q12H PRN PRN Reason: Pain, moderate (4-7) Last Admin: 04/01/17 05:02 Dose: 1 tab Pantoprazole Sodium (Protonix Ec Tab) 40 mg PO 0600 [facility] PRN Reason: Protocol Last Admin: 04/01/17 05:02 Dose: 40 mg Polyethylene Glycol (Miralax) 17 gm PO BID [facility] PRN Reason: Protocol Last Admin: 04/01/17 09:36 Dose: 17 gm - Labs Labs: 03/27/17 08:00 03/27/17 08:00
--- NOTE | 2017-04-01 19:25 | CP.PCM.PN ---
Subjective - Date & Time of Evaluation Date of Evaluation: 04/01/17 Time of Evaluation: 18:30 - Subjective Subjective: Internal Medicine/Infectious Disease Follow Up: April 01, 2017 81 yo AA female presenting with Dyspnea on Exertion. Recently discharged from [facility] [place]. No fevers, chills, nausea, vomiting, or diarrhea. Mental lability the past 2 weeks. I do not feel that the patient is able to care for herself at home. I also am unable to evaluate if the patient is taking her medications properly at home. Given the laboratories, the patient is showing signs of dehydration and malnutrition. Multiple hospital admissions in the past 2 months. This morning the patient was found unresponsive by nursing staff. Rapid response initiated. The patient was also found to have intermittent arm twitching. Evaluated by House Doctor (Dr. Montanez) and consults to MICU and Neurology requested. As far as patient's opioid use is concerned, she is written for 20 Percocet doses each month. Checking [employer] website in [place] shows no other prescriptions for opioids filled by the patient. She lives alone. Noted Keppra started. Leukocytosis likely secondary to epilepsy episode. 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 The patient is currently arousable. Had some dysarthria with paraphasic errors , ideamotor and construction apraxia as well as expressive aphasia but seems to be resolved today. The patient is noted to have right facial weakness yesterday but this seems to have resolved today as well. Noted all [employer] consultant notes today. Marked bradycardia down to the 30s during this hospitalization. Discussed with Dr. Fonseca. Patient requires pacemaker for the chronic atrial fibrillation with marked bradycardia. Pacemaker placed. Pulse at 60s today. Creatinine still remains elevated at 1.5 (2.4 yesterday) Neurologically, the patient is back to baseline again. AAO x 2 at baseline. She has been emotionally labile for the last few months. Pacemaker functioning normally. In TCU now. Long discussion with the patient Wednesday. Unfortunately, the patient does NOT want to involve her family. She is very forgetful with a poor short term memory. She has done well in the hospital given that here she has 24/7 care. The patient fails to understand some of the root cause of her problems and the importance of involving family in aiding with her care. The patient does not recall how long she has been in the hospital, how many times she has been in the hospital, and even if she ate or taken her medications. Repeat conversations shows the same issues of poor short term memory. For some reason, the patient is trusting relative strangers to help with her care over her relatives. Discussed care with the patient's son. Supportive care. Objective - Vital Signs/Intake and Output Vital Signs (last 24 hours): Temp Pulse Resp BP Pulse Ox 98.5 F 71 19 135/80 93 L 04/01/17 18:05 04/01/17 18:05 04/01/17 18:05 04/01/17 18:05 04/01/17 18:05 Intake and Output: 04/01/17 04/02/17 18:59 06:59 Intake Total 300 Balance 300 - Medications Medications: Current Medications Acetaminophen (Tylenol 325mg Tab) 650 mg PO Q6H PRN; Protocol PRN Reason: Pain, Mild (1-3) Last Admin: 04/01/17 08:13 Dose: 650 mg Alprazolam (Xanax) 0.5 mg PO Q24H PRN; Protocol PRN Reason: Anxiety Stop: 04/01/17 19:19 Last Admin: 04/01/17 08:14 Dose: 0.5 mg Apixaban (Eliquis) 2.5 mg PO BID [facility] PRN Reason: Protocol Last Admin: 04/01/17 17:27 Dose: 2.5 mg Aspirin (Aspirin Chewable) 81 mg PO 0800 [facility] PRN Reason: Protocol Last Admin: 04/01/17 08:09 Dose: 81 mg Atorvastatin Calcium (Lipitor) 20 mg PO DAILY [facility] PRN Reason: Protocol Last Admin: 04/01/17 09:34 Dose: 20 mg Calcium/Vitamin D (Oscal-D 250 Mg-125 Units Tab) 1 tab PO BID [facility] Last Admin: 04/01/17 17:26 Dose: 1 tab Docusate Sodium (Colace) 100 mg PO DAILY [facility] PRN Reason: Protocol Last Admin: 04/01/17 09:34 Dose: 100 mg Ferrous Gluconate (Fergon) 324 mg PO 0800,1200,1800 [facility] PRN Reason: Protocol Last Admin: 04/01/17 17:27 Dose: 324 mg Isosorbide Mononitrate (Imdur Er) 30 mg PO 0630 [facility] PRN Reason: Protocol Last Admin: 04/01/17 05:31 Dose: 30 mg Levalbuterol HCl (Xopenex) 0.63 mg IH [id number] PRN; Protocol PRN Reason: Shortness of Breath Levetiracetam (Keppra) 500 mg PO BID [facility] PRN Reason: Protocol Last Admin: 04/01/17 17:26 Dose: 500 mg Multivitamins (Thera Tab) 1 tab PO 0800 [facility] PRN Reason: Protocol Last Admin: 04/01/17 08:09 Dose: 1 tab Oxycodone/Acetaminophen (Percocet 2.5/325 Mg Tab) 1 tab PO Q12H PRN PRN Reason: Pain, moderate (4-7) Last Admin: 04/01/17 17:25 Dose: 1 tab Pantoprazole Sodium (Protonix Ec Tab) 40 mg PO 0600 [facility] PRN Reason: Protocol Last Admin: 04/01/17 05:02 Dose: 40 mg Polyethylene Glycol (Miralax) 17 gm PO BID [facility] PRN Reason: Protocol Last Admin: 04/01/17 17:26 Dose: 17 gm - Labs Labs: 03/27/17 08:00 03/27/17 08:00 - Constitutional Appears: Non-toxic, No Acute Distress, Chronically Ill - Head Exam Head Exam: ATRAUMATIC, NORMOCEPHALIC - Eye Exam Eye Exam: EOMI, PERRL Pupil Exam: NORMAL ACCOMODATION, PERRL - ENT Exam ENT Exam: Mucous Membranes Moist, Normal External Ear Exam, TM's Normal Bilaterally - Neck Exam Neck Exam: Full ROM, Normal Inspection - Respiratory Exam Respiratory Exam: Clear to Ausculation Bilateral, NORMAL BREATHING PATTERN. absent: Rales, Rhonchi, Wheezes - Cardiovascular Exam Cardiovascular Exam: REGULAR RHYTHM, RRR, +S1, +S2 - GI/Abdominal Exam GI & Abdominal Exam: Soft, Normal Bowel Sounds. absent: Distended, Tenderness - Extremities Exam Extremities Exam: Full ROM, Normal Inspection - Neurological Exam Neurological Exam: Alert, Awake, CN II-XII Intact, Oriented x3 - Psychiatric Exam Psychiatric exam: Normal Affect, Normal Mood - Skin Skin Exam: Intact, Normal Color Assessment and Plan - Assessment and Plan (Free Text) Assessment: 81 yo AA female with complaints of Dyspnea on Exertion. Unclear if the patient takes her medication properly at home. The patient has run off previous home nursing help in the past few months. Recent hospitalizations to [facility] [place] and [facility] [place]. Chronically low heart rate. Periods of confusion. Evaluations by Cardiology Dr. Fonseca, Nephrology Dr. Lemon, and Psychiatry (on hold given recent events). Dehydration and malnutrition. The patient appears to have difficulty in caring for herself at home. This morning the patient found poorly responsive with epilepsy episode. The patient required transfer to MICU and was also seen by Neurology. The patient had leukocytosis which is likely transient to the epilepsy episode. Supportive care. Seen by Dr. Sanchez. Neurologic sequela appears to have resolved. Evaluation for seizures in progress. Recheck CBC and CMP in AM. Noted adjustment to medications. On Keppra. Remains in MICU. For pacemaker. Severe Pulmonary HTN. Pacemaker placed yesterday. Still with elevated creatinine but slowly improving. Heart rate after pacemaker in 60s. Patient is very forgetful. Lasix and Norvasc stopped by Nephrology. Concerns for patient's ability to care for herself at home given the patient's forgetfulness and unwillingness to involve her family in her care. Will have to try to maximize her time with home nursing and possibly a psychometric examiner. Creatinine is improving. In TRCU. Pacemaker functioning well. No new issues.
[2017-04-02] MEDS: Pantoprazole 40 mg EC Tab PO SCH (05:33)
[2017-04-02 06:15] VITALS: RESP 18
[2017-04-02] MEDS: Oxycodone/Acetaminophen 2.5/325 mg Tab PO PRN (08:22)
[2017-04-02] MEDS: Multivitamin Therapeutic Tab PO SCH (08:24)
[2017-04-02] MEDS: Calcium-Vit D 250 mg-125 Units Tab UD PO SCH (09:05)
[2017-04-02] MEDS: POLYETHYLENE GLYCOL 3350 17 GM/Dose PACKET PO SCH (09:10)
[2017-04-02 11:20] VITALS: BP 131/69; PULSE 60; TEMP 98.1; O2SAT 95
--- NOTE | 2017-04-02 12:00 | PN ---
DATE: 04/02/2017 CARDIOLOGY FOLLOWUP SUBJECTIVE: The patient is comfortable in the bed without shortness of breath, without chest pain. PHYSICAL EXAMINATION VITAL SIGNS: Blood pressure 136/77, heart rate is in the 60s, paced. NECK: Negative JVD. LUNGS: Without rales. HEART: S1, S2. EXTREMITIES: Without edema. LABORATORY DATA: No laboratories were drawn today. IMPRESSION: 1. Weakness. 2. Resolution of sinus bradycardia. 3. History of syncope secondary to sinus bradycardia. 4. Status post pacemaker placement. 5. Renal insufficiency. 6. Diabetes mellitus. Given these findings, the patient is doing well in the TCU. Oswald Fonseca MD
--- NOTE | 2017-04-02 13:15 | CP.PCM.PN ---
Subjective - Date & Time of Evaluation Date of Evaluation: 04/02/17 Time of Evaluation: 13:14 - Subjective Subjective: Follow up Nephrology Consultation: Assessment: Recent acute Kidney injury: improved Chronic Kidney Disease Stage 3 (N18.3) proteinuria possibly due to HTN, age related decline, and s/p Rt nephrectomy due to hx of RCC ? symptomatic Anemia chronic, Hypertension controlled (I12.9) Vit D insufficiency with secondary hyperparathyroidism hx of severe pulmonary HTN (RVSP 81 mm Hg) and moderate to severe LVH hx of dementia bradycardia s/p PPM Plan no acute need of renal replacement therapy at this time Hypertension control with meds as ordered. no ACEI/ARB due to PATRICIA and BP controlled She is already on statin started on iron 324 mg TID and MVI d/c IV lasix and norvasc as BP controlled and pt not fluid overloaded anemia management as per primary team and heme added oscal/D 1 tab bid Dose meds/antibiotics for reduced GFR. Avoid fleets enema/magnesium based laxatives. Avoid nephrotoxins/NSAIDs anemia management as per heme Further work up as per primary team pt planned for d/c today, stable from renal perspective with outpt renal follow up 1-2 weeks Thanks for allowing me to participate in care of your patient. Please call if any Qs Dr Jt Lemon Office: [phone] Chief Complaint: none Reason for consult: CKD and PATRICIA HPI: Pt is a 81 y/o F with hx of hypertension (20 years) , renal cell cancer s/ p unilateral total nephrectomy, CKD stage 3 with baseline cr 1.4-1.7 since 2017 but intermittent episodes of PATRICIA, chronic anemia, A fib admitted with SOB, PATRICIA, bradycardia s/p PPM, anemia now in rehab. seen for renal consult now she feels better. denies SOB/chest pain/nausea or urinary complaints. rest all other negative. says going home today Physical Examination: General Appearance: Comfortable, in no acute respiratory distress, co-operative . Vitals reviewed and noted as below Head; Atraumatic, normocephalic ENT: no ulcers no thrush. Tongue is midline. Oropharynx: no rash or ulcers. EYES: Pupils are equal, round and reactive to light accommodation. Eye muscles and extraocular movement intact. Sclera is anicteric. Neck; supple no lymphadenopathy, no thyromegaly or bruit Lungs: Normal respiratory rate/effort. Breath sounds bilateral equal and clear Heart: Normal rate. s1s2 normal. No rub or gallop. Extremities: no edema. No varicose veins Neurological: Patient is alert, awake and oriented x3 but seems forgetful, sometime trying to make up for it. No other focal deficit. Strength bilateral appropriate and equal Skin: Warm and dry. Normal turgor. No rash. Palpitation: Normal elasticity for age Abdomen: Abdomen is soft. Bowel sounds +. There is no abdominal tenderness, no guarding/rigidity or organomegaly Psych: lack insight and has normal affect/mood MSK: no joint tenderness or swelling. Digits and nails normal, no deformity : kidney or bladder not palpable Labs/imaging/EKG reviewed. Past medical history, past surgical history,social history, allergy reviewed and noted as below FAMILy HX; no hx of CKD. non contributory work up: CT 2017: s/p Rt nephrectomy, left kidney unremarkable Vit D 35 PTH 70 Objective - Vital Signs/Intake and Output Vital Signs (last 24 hours): Temp Pulse Resp BP Pulse Ox 98.1 F 60 18 131/69 95 04/02/17 11:19 04/02/17 11:19 04/02/17 11:19 04/02/17 11:19 04/02/17 11:19 Intake and Output: 04/02/17 04/02/17 06:59 18:59 Intake Total 320 Output Total 2 Balance 318 - Medications Medications: Current Medications Acetaminophen (Tylenol 325mg Tab) 650 mg PO Q6H PRN; Protocol PRN Reason: Pain, Mild (1-3) Last Admin: 04/01/17 08:13 Dose: 650 mg Apixaban (Eliquis) 2.5 mg PO BID [facility] PRN Reason: Protocol Last Admin: 04/02/17 09:06 Dose: 2.5 mg Aspirin (Aspirin Chewable) 81 mg PO 0800 [facility] PRN Reason: Protocol Last Admin: 04/02/17 08:22 Dose: 81 mg Atorvastatin Calcium (Lipitor) 20 mg PO DAILY [facility] PRN Reason: Protocol Last Admin: 04/02/17 09:04 Dose: 20 mg Calcium/Vitamin D (Oscal-D 250 Mg-125 Units Tab) 1 tab PO BID [facility] Last Admin: 04/02/17 09:05 Dose: 1 tab Docusate Sodium (Colace) 100 mg PO DAILY [facility] PRN Reason: Protocol Last Admin: 04/02/17 09:05 Dose: 100 mg Ferrous Gluconate (Fergon) 324 mg PO 0800,1200,1800 [facility] PRN Reason: Protocol Last Admin: 04/02/17 08:23 Dose: 324 mg Isosorbide Mononitrate (Imdur Er) 30 mg PO 0630 [facility] PRN Reason: Protocol Last Admin: 04/02/17 05:33 Dose: 30 mg Levalbuterol HCl (Xopenex) 0.63 mg [facility] [id number] PRN; Protocol PRN Reason: Shortness of Breath Levetiracetam (Keppra) 500 mg PO BID [facility] PRN Reason: Protocol Last Admin: 04/02/17 09:06 Dose: 500 mg Multivitamins (Thera Tab) 1 tab PO 0800 [facility] PRN Reason: Protocol Last Admin: 04/02/17 08:24 Dose: 1 tab Oxycodone/Acetaminophen (Percocet 2.5/325 Mg Tab) 1 tab PO Q12H PRN PRN Reason: Pain, moderate (4-7) Last Admin: 04/02/17 08:22 Dose: 1 tab Pantoprazole Sodium (Protonix Ec Tab) 40 mg PO 0600 [facility] PRN Reason: Protocol Last Admin: 04/02/17 05:33 Dose: 40 mg Polyethylene Glycol (Miralax) 17 gm PO BID [facility] PRN Reason: Protocol Last Admin: 04/02/17 09:10 Dose: 17 gm - Labs Labs: 03/27/17 08:00 03/27/17 08:00
--- NOTE | 2017-04-02 16:44 | CP.PCM.DIS ---
Provider - Provider Date of Admission: 03/25/17 18:45 Attending physician: Amador Curm MD Primary care physician: Amador Crum MD Consults: Cardiology - Dr. Fonseca Renal - Dr. Lemon Heme/Onc - Dr. Sanchez Neuro - Dr. Alston Time Spent in preparation of Discharge (in minutes): 45 Hospital Course - Lab Results Lab Results: Most Recent Lab Values WBC 6.8 10^3/ul (4.5-11.0) 03/27/17 08:00 RBC 4.42 10^6/uL (3.5-6.1) 03/27/17 08:00 Hgb 9.5 g/dL (12.0-16.0) L 03/27/17 08:00 Hct 31.7 % (36.0-48.0) L 03/27/17 08:00 MCV 71.7 fl (80.0-105.0) L 03/27/17 08:00 MCH 21.5 pg (25.0-35.0) L 03/27/17 08:00 MCHC 30.0 g/dl (31.0-37.0) L 03/27/17 08:00 RDW 25.0 % (11.5-14.5) H 03/27/17 08:00 Plt Count 216 10^3/uL (120.0-450.0) 03/27/17 08:00 Gran % 75.3 % (50.0-68.0) H 03/27/17 08:00 Lymph % (Auto) 17.0 % (22.0-35.0) L 03/27/17 08:00 [place] % (Auto) 4.7 % (1.0-6.0) 03/27/17 08:00 Eos % (Auto) 2.6 % (1.5-5.0) 03/27/17 08:00 Baso % (Auto) 0.4 % (0.0-3.0) 03/27/17 08:00 Gran # 5.13 (1.4-6.5) 03/27/17 08:00 Lymph # 1.2 (1.2-3.4) 03/27/17 08:00 [place] # 0.3 (0.1-0.6) 03/27/17 08:00 Eos # 0.2 (0.0-0.7) 03/27/17 08:00 Baso # 0.03 K/mm3 (0.0-2.0) 03/27/17 08:00 Sodium 139 mmol/L (132-148) 03/27/17 08:00 Potassium 4.7 mmol/L (3.6-5.0) 03/27/17 08:00 Chloride 106 mmol/L (98-107) 03/27/17 08:00 Carbon Dioxide 23 mmol/L (21-33) 03/27/17 08:00 Anion Gap 15 (10-20) 03/27/17 08:00 BUN 47 mg/dL (7-21) H 03/27/17 08:00 Creatinine 1.5 mg/dl (0.7-1.2) H 03/27/17 08:00 Est GFR ( Amer) 40 03/27/17 08:00 Est GFR (Non-Af Amer) 33 03/27/17 08:00 POC Glucose (mg/dL) 86 mg/dL (65-110) 03/31/17 17:10 Random Glucose 108 mg/dL (70-110) 03/27/17 08:00 Calcium 9.5 mg/dL (8.4-10.5) 03/27/17 08:00 25-OH Vitamin D Total 35.1 NG/ML (30.0-100.0) 03/27/17 08:00 PTH Intact Whole M[place] 70 pg/mL (14-64) H 03/26/17 12:40 - Hospital Course Hospital Course: Internal Medicine/Infectious Disease Follow Up: April 02, 2017 81 yo AA female presenting with Dyspnea on Exertion. Recently discharged from [facility] [place]. No fevers, chills, nausea, vomiting, or diarrhea. Mental lability the past 2 weeks. I do not feel that the patient is able to care for herself at home. I also am unable to evaluate if the patient is taking her medications properly at home. Given the laboratories, the patient is showing signs of dehydration and malnutrition. Multiple hospital admissions in the past 2 months. This morning the patient was found unresponsive by nursing staff. Rapid response initiated. The patient was also found to have intermittent arm twitching. Evaluated by House Doctor (Dr. Montanez) and consults to MICU and Neurology requested. As far as patient's opioid use is concerned, she is written for 20 Percocet doses each month. Checking [facility] website in [place] shows no other prescriptions for opioids filled by the patient. She lives alone. Noted Keppra started. Leukocytosis likely secondary to epilepsy episode. 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 The patient is currently arousable. Had some dysarthria with paraphasic errors , ideamotor and construction apraxia as well as expressive aphasia but seems to be resolved today. The patient is noted to have right facial weakness yesterday but this seems to have resolved today as well. Noted all new vehicle sales consultant notes today. Marked bradycardia down to the 30s during this hospitalization. Discussed with Dr. Fonseca. Patient requires pacemaker for the chronic atrial fibrillation with marked bradycardia. Pacemaker placed. Pulse at 60s today. Creatinine still remains elevated at 1.5 (2.4 yesterday) Neurologically, the patient is back to baseline again. AAO x 2 at baseline. She has been emotionally labile for the last few months. Pacemaker functioning normally. In TCU now. Long discussion with the patient Wednesday. Unfortunately, the patient does NOT want to involve her family. She is very forgetful with a poor short term memory. She has done well in the hospital given that here she has / care. The patient fails to understand some of the root cause of her problems and the importance of involving family in aiding with her care. The patient does not recall how long she has been in the hospital, how many times she has been in the hospital, and even if she ate or taken her medications. Repeat conversations shows the same issues of poor short term memory. For some reason, the patient is trusting relative strangers to help with her care over her relatives. Discussed care with the patient's son. Supportive care. - Date & Time of H&P Date of H&P: 03/26/17 Time of H&P: 17:33 Discharge Exam - Head Exam Head Exam: ATRAUMATIC, NORMOCEPHALIC - Eye Exam Eye Exam: EOMI, PERRL Pupil Exam: NORMAL ACCOMODATION, PERRL - ENT Exam ENT Exam: Mucous Membranes Moist, Normal External Ear Exam, TM's Normal Bilaterally - Neck Exam Neck exam: Full Rom, Normal Inspection - Respiratory Exam Respiratory Exam: Clear to PA & Lateral, NORMAL BREATHING PATTERN. absent: Rhonchi, Wheezes, Respiratory Distress - Cardiovascular Exam Cardiovascular Exam: REGULAR RHYTHM, RRR, +S1, +S2 - GI/Abdominal Exam GI & Abdominal Exam: Normal Bowel Sounds, Soft. absent: Distended, Tenderness - Extremities Exam Extremities exam: full ROM, normal inspection - Neurological Exam Neurological exam: Alert, CN II-XII Intact, Oriented x3 - Psychiatric Exam Psychiatric exam: Normal Affect, Normal Mood - Skin Skin Exam: Intact, Normal Color Discharge Plan - Follow Up Plan Condition: GOOD Disposition: HOME/ ROUTINE Instructions: Pacemaker (DC), Fall Prevention for Older Adults (GEN), Hypertension (DC), Anemia (DC), Myocardial Infarction (DC), Myocardial Infarction (GEN), Altered Mental Status (GEN) Additional Instructions: 81 yo AA female with complaints of Dyspnea on Exertion. Unclear if the patient takes her medication properly at home. The patient has run off previous home nursing help in the past few months. Recent hospitalizations to [facility] [place] and [facility]. Chronically low heart rate. Periods of confusion. Evaluations by Cardiology Dr. Fonseca, Nephrology Dr. Lemon, and Psychiatry (on hold given recent events). Dehydration and malnutrition. The patient appears to have difficulty in caring for herself at home. This morning the patient found poorly responsive with epilepsy episode. The patient required transfer to MICU and was also seen by Neurology. The patient had leukocytosis which is likely transient to the epilepsy episode. Supportive care. Seen by Dr. Sanchez. Neurologic sequela appears to have resolved. Evaluation for seizures in progress. Recheck CBC and CMP in AM. Noted adjustment to medications. On Keppra. Remains in MICU. For pacemaker. Severe Pulmonary HTN. Pacemaker placed yesterday. Still with elevated creatinine but slowly improving. Heart rate after pacemaker in 60s. Patient is very forgetful. Lasix and Norvasc stopped by Nephrology. Concerns for patient's ability to care for herself at home given the patient's forgetfulness and unwillingness to involve her family in her care. Will have to try to maximize her time with home nursing and possibly a home hospice aide. Creatinine is improving. In TRCU. Pacemaker functioning well. No new issues. Follow up in my office in one week. Clinical Quality Measures - CQM - Stroke Antithrombotic Prescribed: Yes - Date & Time of Discharge Summary Date of Discharge Summary: 04/02/17
--- NOTE | 2017-04-02 22:18 | CP.PCM.PN ---
Subjective - Date & Time of Evaluation Date of Evaluation: 04/02/17 Time of Evaluation: 13:00 - Subjective Subjective: No complaints. Objective - Vital Signs/Intake and Output Vital Signs (last 24 hours): Temp Pulse Resp BP Pulse Ox 98.1 F 60 18 131/69 95 04/02/17 11:19 04/02/17 11:19 04/02/17 11:19 04/02/17 11:19 04/02/17 11:19 Intake and Output: 04/02/17 04/03/17 18:59 06:59 Intake Total 320 Output Total 2 Balance 318 - Labs Labs: 03/27/17 08:00 03/27/17 08:00 - Head Exam Head Exam: ATRAUMATIC - Eye Exam Eye Exam: Normal appearance - ENT Exam ENT Exam: Mucous Membranes Dry - Respiratory Exam Respiratory Exam: NORMAL BREATHING PATTERN - Cardiovascular Exam Cardiovascular Exam: +S1, +S2 - GI/Abdominal Exam GI & Abdominal Exam: Normal Bowel Sounds Assessment and Plan (1) Iron deficiency anemia Assessment & Plan: s/p PRBC and iron outpatient PO iron Status: Acute (2) Renal cell cancer Assessment & Plan: in remission Status: Acute
== END 2017-04-02 14:09 | disposition home or self-care (01) | DRG 57 ==
LOC: TRCU 18:45
PROVIDERS: ADMIT Internal Medicine Infectious Disease; ATTEND Internal Medicine Infectious Disease
PROC: F07Z9ZZ Gait Training/Functional Ambulation Treatment (ICD-10-PCS; principal; 2017-03-27)
PROC: F07Z5ZZ Bed Mobility Treatment (ICD-10-PCS; 2017-03-27)
PROC: F07Z8ZZ Transfer Training Treatment (ICD-10-PCS; 2017-03-27)
PROC: F07L6YZ Therapeutic Exercise Treatment of Musculoskeletal System - Lower Back / Lower Extremity using Other Equipment (ICD-10-PCS; 2017-03-29)
PROC: F08Z2ZZ Grooming/Personal Hygiene Treatment (ICD-10-PCS; 2017-03-29)
PROC: F08Z1FZ Dressing Techniques Treatment using Assistive, Adaptive, Supportive or Protective Equipment (ICD-10-PCS; 2017-03-31)
DX: I69.320 Aphasia following cerebral infarction (principal); I69.390 Apraxia following cerebral infarction; I69.322 Dysarthria following cerebral infarction; E46 Unspecified protein-calorie malnutrition; N25.81 Secondary hyperparathyroidism of renal origin; G40.909 Epilepsy, unspecified, not intractable, without status epilepticus; I13.0 Hypertensive heart and chronic kidney disease with heart failure and stage 1 through stage 4 chronic kidney disease, or unspecified chronic kidney disease; E11.22 Type 2 diabetes mellitus with diabetic chronic kidney disease; I27.20 Pulmonary hypertension, unspecified; I50.9 Heart failure, unspecified; I48.2 Chronic atrial fibrillation; D50.9 Iron deficiency anemia, unspecified; E55.9 Vitamin D deficiency, unspecified; N18.3 Chronic kidney disease, stage 3 (moderate); E86.0 Dehydration; R53.83 Other fatigue; R00.1 Bradycardia, unspecified; F03.90 Unspecified dementia, unspecified severity, without behavioral disturbance, psychotic disturbance, mood disturbance, and anxiety; Z85.528 Personal history of other malignant neoplasm of kidney; Z68.20 Body mass index [BMI] 20.0-20.9, adult; Z90.5 Acquired absence of kidney; Z95.0 Presence of cardiac pacemaker; Z79.01 Long term (current) use of anticoagulants; Z79.82 Long term (current) use of aspirin; I69.992 Facial weakness following unspecified cerebrovascular disease

== ENCOUNTER 2017-04-25 15:38 | Inpatient (IN) | payer MEDICARE ==
[2017-04-25 15:38] VITALS: PULSE 45; BMI 20.7
[2017-04-25] MEDS ORDERED: Albuterol-Ipratrop 3 mg / 0.5 (3 ml) UD IH STA (16:32)
--- NOTE | 2017-04-25 16:53 | ED PDOC ---
Arrival/HPI - General Chief Complaint: Shortness Of Breath Time Seen by Provider: 04/25/17 16:20 Historian: Patient - History of Present Illness Narrative History of Present Illness (Text): 04/25/17 16:49 Patient is an 81 yo female past medical history of bradycardia, chf, recent pacemaker placement, presents to the Emergency Department via ALS with history of shortness of breath "for a few days" and "got worse when I was at [employer]". She denies chest pain. Denies headache. Denies arm numbness or weakness. Denies abdominal pain. Denies vomiting or back pain. Time/Duration: Prior to Arrival Past Medical History - Infectious Disease Hx of Infectious Diseases: None - Tetanus Immunization Tetanus Immunization: >10 years Ago - Cardiac Hx Cardiac Disorders: Yes Hx Congestive Heart Failure: Yes Hx Hypertension: Yes Other/Comment: + R sided pacemaker - Pulmonary Hx Respiratory Disorders: No - Neurological Hx Dementia: Yes - HEENT Hx HEENT Disorder: Yes (glasses) - Renal Hx Renal Disorder: Yes - Endocrine/Metabolic Hx Endocrine Disorders: No - Hematological/Oncological Hx Blood Disorders: Yes Hx Anemia: Yes - Integumentary Hx Dermatological Disorder: No - Musculoskeletal/Rheumatological Hx Arthritis: Yes - Gastrointestinal Hx Gastroesophageal Reflux: Yes - Genitourinary/Gynecological Hx Genitourinary Disorders: No - Psychiatric Hx Psychophysiologic Disorder: Yes Hx Anxiety: Yes Hx Substance Use: No - Surgical History Other/Comment: Pacemaker placement - Anesthesia Hx Anesthesia: Yes Hx Anesthesia Reactions: No Hx Malignant Hyperthermia: No Family/Social History Family/Social History: Unknown Family HX Smoking Status: Never Smoked Hx Alcohol Use: No Hx Substance Use: No Allergies/Home Meds Allergies/Adverse Reactions: Allergies No Known Allergies Allergy (Verified 03/26/17 04:42) Home Medications: Home Meds Medication Instructions Recorded Confirmed ALPRAZolam [Xanax] 0.5 mg PO BID PRN 10/31/16 03/26/17 Review of Systems - Review of Systems Constitutional: Fatigue. absent: Fevers Eyes: absent: Vision Changes Respiratory: SOB. absent: Cough, Wheezing Cardiovascular: ALVA. absent: Chest Pain Gastrointestinal: absent: Abdominal Pain, Nausea, Vomiting Genitourinary Female: absent: Dysuria Musculoskeletal: absent: Back Pain Skin: absent: Rash Neurological: absent: Headache, Dizziness, Focal Weakness, Gait Changes, Facial Droop, Disequilibrium Endocrine: absent: Polyuria Hemo/Lymphatic: absent: Easy Bleeding Psychiatric: absent: Depression Physical Exam Vital Signs Reviewed: Yes Vital Signs Temp Pulse Resp BP Pulse Ox 04/25/17 18:33 98.6 F 04/25/17 16:20 97.4 F L 81 18 141/64 97 Temperature: Afebrile Appearance: Positive for: Uncomfortable Pain Distress: Mild Mental Status: Positive for: Alert and Oriented X 3 - Systems Exam Head: Present: Atraumatic, Normocephalic Pupils: Present: PERRL Extroacular Muscles: Present: EOMI Mouth: Present: Moist Mucous Membranes Pharnyx: No: ERYTHEMA Neck: Present: Normal Range of Motion, JVD Respiratory/Chest: Present: Rales, Tachypneic Cardiovascular: Present: Regular Rate and Rhythm, Murmurs Abdomen: No: Tenderness, Distention Rectal: No: Gross Blood, Melena, Hemorrhoids Upper Extremity: Present: NORMAL PULSES. No: Edema Lower Extremity: Present: Edema, NORMAL PULSES, Neurovascularly Intact. No: CALF TENDERNESS Neurological: Present: Motor Func Grossly Intact, Normal Sensory Function, Normal Cerebellar Funct Skin: Present: Warm Psychiatric: Present: Alert, Normal Insight, Normal Concentration Medical Decision Making ED Course and Treatment: 04/25/17 16:52 Patient on initial examination mildly tachypneic although alert and mentating well with oxygen saturations 98% on nasal cannula. She has prior hx of pacemaker placement, EKG reveals paced rhythm. BP stable. Will obtain cxr, card isos, influenza, labs. 04/25/17 20:05 CXR consistent with congestive heart failure. She is not hypoxic on oxygen, respiratory rate 18-20. Lasix ordered. She denies chest pain. Blood pressure stable. Patient noted to be anemic. When compared to last admission this is lower than baseline. She denies bleeding or bloody stools or melena. Rectal exam reveals no melena or gross bleeding. She denies abdominal pain. I feel sob likely exacerbated by acute anemia, and patient type and crossed and will be transfused one unit of prbc. Patient has consented to blood transfusion , risks/benefits reviewed. When reexamined patient at 1830 noted to have ?slurred speech. She states that she feels fine and that is her normal speech. She had no focal deficits or weakness, no facial droop. She denied headache. CT head ordered as patient reportedly with possible prior hx of tia, although episode resolved quickly and speech normalized. CT head endorsed to oncoming physician and psychometric examiner for follow-up. INR pending. She denies taking blood thinners but preliminary report from lab reportedly was that INR was elevated. INR follow-up endorsed to oncoming physician. At this time not hypotensive, not tachycardic, no acute respiratory distress. Caser evaluation requested due to anemia, chf, re-evaluate neuro status. - Lab Interpretations Lab Results: 04/25/17 17:30 04/25/17 17:30 Lab Results 04/25/17 18:20: Urine Color Yellow, Urine Appearance Clear, Urine pH 6.0, Ur Specific [place] 1.025, Urine Protein 30 H, Urine Glucose (UA) Negative, Urine Ketones Negative, Urine Blood Negative, Urine Nitrate Negative, Urine Bilirubin Negative, Urine Urobilinogen 0.2, Ur Leukocyte Esterase Negative, Urine RBC Negative, Urine WBC 2 - 5, Ur Epithelial Cells 3 - 4, Urine Bacteria Few 04/25/17 17:50: Influenza Typ A,B (EIA) Negative for flu a/b 04/25/17 17:30: Sodium 148, Potassium 4.5, Chloride 113 H, Carbon Dioxide 24, Anion Gap 15, BUN 42 H, Creatinine 1.6 H, Est GFR ( Amer) 37, Est GFR ( Non-Af Amer) 31, Random Glucose 91, Calcium 10.2, Total Bilirubin 0.9, AST 23, ALT 30, Alkaline Phosphatase 91, Lactate Dehydrogenase 705 H, Total Creatine Kinase 48, Troponin I 0.04 D, NT-Pro-B Natriuret Pep 2950 H, Total Protein 7.6 , Albumin 3.7, Globulin 3.9, Albumin/Globulin Ratio 0.9 L 04/25/17 17:30: WBC 7.9, RBC 3.39 L, Hgb 7.7 L, Hct 26.2 L, MCV 77.3 L D, MCH 22.7 L, MCHC 29.4 L, RDW 29.3 H, Plt Count 199, Gran % 79.6 H, Lymph % (Auto) 14.1 L, [place] % (Auto) 4.2, Eos % (Auto) 1.8, Baso % (Auto) 0.3, Gran # 6.30, Lymph # (Auto) 1.1 L, [place] # (Auto) 0.3, Eos # (Auto) 0.1, Baso # (Auto) 0.02 - RAD Interpretation Radiology Orders: 04/25/17 16:31 CHEST PORTABLE [RAD] Stat - EKG Interpretation EKG Interpretation (Text): 04/25/17 16:53 EKG at 16:40 electronic ventricular pacemaker Interpreted by ED Physician: Yes Type: 12 lead EKG Comparison: Com.w/previous EKG - Medication Orders Current Medication Orders: Discontinued Medications Albuterol/Ipratropium (Duoneb 3 Mg/0.5 Mg (3 Ml) Ud) 3 ml IH STAT STA Stop: 04/25/17 16:33 Last Admin: 04/25/17 17:55 Dose: 3 ml Furosemide (Lasix) 40 mg IVP ONCE ONE Stop: 04/25/17 18:09 Disposition/Present on Arrival - Present on Arrival Any Indicators Present on Arrival: No History of DVT/PE: No History of Uncontrolled Diabetes: No Urinary Catheter: No History of Decub. Ulcer: No History Surgical Site Infection Following: None - Disposition Have Diagnosis and Disposition been Completed?: Yes Diagnosis: Anemia, Congestive heart failure, Renal insufficiency Disposition: HOSPITALIZED Disposition Time: 18:00 Patient Plan: Admission, Telemetry Patient Problems: Current Active Problems Problem Status Onset CHF (congestive heart failure) Acute Anemia Chronic Condition: FAIR
--- NOTE | 2017-04-25 17:38 | RAD ---
HISTORY: SOB COMPARISON: Comparison chest dated 03/23/2017. FINDINGS: LUNGS: Mild central pulmonary vascular congestive changes are felt to be present. There may also be some minor bibasilar atelectasis left greater than right. . PLEURA: No significant pleural effusion identified, no pneumothorax apparent. CARDIOVASCULAR: Heart remains enlarged. No change single lead pacemaker. OSSEOUS STRUCTURES: No significant abnormalities. VISUALIZED UPPER ABDOMEN: Normal. OTHER FINDINGS: None. IMPRESSION: Pulmonary vascular congestion with bibasilar atelectasis left greater than right Cardiomegaly.
[2017-04-25 17:50] LABS: BASO # 0.02 K/mm3 (0.0-2.0); BASO % 0.3 % (0.0-3.0); EOS # 0.1 (0.0-0.7); EOS % 1.8 % (1.5-5.0); GRAN % 79.6 % (50.0-68.0); HEMOGLOBIN 7.7 g/dL (12.0-16.0); LYMPH # 1.1 (1.2-3.4); LYMPH % 14.1 % (22.0-35.0); MEAN CELL VOLUME 77.3 fl (80.0-105.0); MEAN CORPUSCULAR HEMOGLOBIN 22.7 pg (25.0-35.0); MEAN CORPUSCULAR HGB CONC 29.4 g/dl (31.0-37.0); MONO # 0.3 (0.1-0.6); MONO % 4.2 % (1.0-6.0); PLATELET COUNT 199 10^3/uL (120.0-450.0); RBC 3.39 10^6/uL (3.5-6.1); RED CELL DISTRIBUTION WIDTH 29.3 % (11.5-14.5); WHITE BLOOD COUNT 7.9 10^3/ul (4.5-11.0)
[2017-04-25 17:56] LABS: ALB/GLOB RATIO 0.9 (1.1-1.8); ALBUMIN 3.7 g/dL (3.0-4.8); CALCIUM 10.2 mg/dL (8.4-10.5)
[2017-04-25 18:07] LABS: TROPONIN I 0.04 ng/mL
[2017-04-25 18:32] LABS: URINE APPEARANCE CLEAR (CLEAR); URINE BILIRUBIN NEGATIVE (NEGATIVE); URINE BLOOD NEGATIVE (NEGATIVE); URINE COLOR YELLOW (YELLOW); URINE GLUCOSE (UA) NEGATIVE (NEGATIVE); URINE LEUKOCYTE ESTERASE NEGATIVE Leu/uL (NEGATIVE); URINE NITRATE NEGATIVE (NEGATIVE); URINE PROTEIN 30 mg/dL (<30 mg/dL); URINE UROBILINOGEN 0.2 E.U./dL (<1 E.U./dL)
[2017-04-25 18:43] LABS: URINE BACTERIA FEW (NEG); URINE RBC NEGATIVE /hpf (0-2)
[2017-04-25 20:57] LABS: PROTHROMBIN TIME 65.1 SECONDS (9.4-12.5)
[2017-04-25 20:59] LABS: INR 5.51 (0.93-1.08); PARTIAL THROMBOPLASTIN TIME 49.4 Seconds (25.1-36.5)
--- NOTE | 2017-04-25 21:23 | CP.PCM.CON ---
<Harpal Ann - Last Filed: 04/25/17 21:17> History of Present Illness - History of Present Illness History of Present Illness: 81 year old woman with a history of HTN, paroxysmal atrial fibrillation (on Coumadin), CKD stage III, a history of Renal Cell Carcinoma (s/p nephrectomy), sciatica, hypercholesterolemia, chronic opioid use, and pulmonary HTN presents to the hospital for 3 days history of worsening shortness of breath. Patient states she noticed her shortness of breath becoming worse as she would perform her normal daily activities. Patient states she [place] and noticed her shortness of breath become much worse so she came to the hospital. Patient states she has been compliant with all her medications. Patient denies chest pain, nausea, vomiting, diarrhea, fever, chills, changes in vision, dysuria, confusion, recent sick contacts. PMH: HTN, paroxysmal atrial fibrillation, CKD stage III, a history of Renal Cell Carcinoma, sciatica, hypercholesterolemia, chronic opioid use, and pulmonary HTN Surgical Hx: Nephrectomy, Hysterectomy Family Hx: Noncontributory Allergies: NKDA Medications: Reviewed, as per MAR Social Hx: Former smoker, denies alcohol or illicit drug use. Review of Systems - Review of Systems Review of Systems: 12 point ROS as per HPI, otherwise negative Past Patient History - Infectious Disease Hx of Infectious Diseases: None - Tetanus Immunizations Tetanus Immunization: >10 years Ago - Past Medical History & Family History Past Medical History?: Yes - Past Social History Smoking Status: Never Smoked - CARDIAC Hx Cardiac Disorders: Yes Hx Congestive Heart Failure: Yes Hx Hypertension: Yes Other/Comment: + R sided pacemaker - PULMONARY Hx Respiratory Disorders: No - NEUROLOGICAL Hx Dementia: Yes - HEENT Hx HEENT Problems: Yes (glasses) - RENAL Hx Chronic Kidney Disease: Yes - ENDOCRINE/METABOLIC Hx Endocrine Disorders: No - HEMATOLOGICAL/ONCOLOGICAL Hx Blood Disorders: Yes Hx Anemia: Yes - INTEGUMENTARY Hx Dermatological Problems: No - MUSCULOSKELETAL/RHEUMATOLOGICAL Hx Arthritis: Yes - GASTROINTESTINAL Hx Gastroesophageal Reflux: Yes - GENITOURINARY/GYNECOLOGICAL Hx Genitourinary Disorders: No - PSYCHIATRIC Hx Psychophysiologic Disorder: Yes Hx Anxiety: Yes Hx Substance Use: No - SURGICAL HISTORY Other/Comment: Pacemaker placement - ANESTHESIA Hx Anesthesia: Yes Hx Anesthesia Reactions: No Hx Malignant Hyperthermia: No Meds Allergies/Adverse Reactions: Allergies Allergy/AdvReac Type Severity Reaction Status Date / Time No Known Allergies Allergy Verified 03/26/17 04:42 Physical Exam - Constitutional Appears: Non-toxic, No Acute Distress - Head Exam Head Exam: ATRAUMATIC, NORMAL INSPECTION, NORMOCEPHALIC - Eye Exam Eye Exam: EOMI, Normal appearance - ENT Exam ENT Exam: Mucous Membranes Moist, Normal Exam - Neck Exam Neck exam: Positive for: Normal Inspection. Negative for: Lymphadenopathy - Respiratory Exam Respiratory Exam: Rales (Diffuse, b/l), NORMAL BREATHING PATTERN. absent: Rhonchi, Wheezes - Cardiovascular Exam Cardiovascular Exam: RRR, +S1, +S2 - GI/Abdominal Exam GI & Abdominal Exam: Normal Bowel Sounds, Soft. absent: Tenderness - Extremities Exam Extremities exam: Positive for: normal inspection. Negative for: calf tenderness, pedal edema - Neurological Exam Neurological exam: Alert, CN II-XII Intact, Oriented x3 - Psychiatric Exam Psychiatric exam: Normal Affect, Normal Mood - Skin Skin Exam: Intact, Normal Color, Warm Results - Vital Signs Recent Vital Signs: Last Vital Signs Temp 98.6 F 04/25/17 18:33 Pulse 81 04/25/17 16:20 Resp 18 04/25/17 16:20 BP 141/64 04/25/17 16:20 Pulse Ox 97 04/25/17 16:20 - Labs Result Diagrams: 04/25/17 17:30 04/25/17 17:30 Labs: Laboratory Results - last 24 hr 04/25/17 20:40 PT 65.1 H INR 5.51 H* APTT 49.4 H Assessment & Plan - Assessment and Plan (Free Text) Plan: 81 year old female with past medical history of HTN, paroxysmal atrial fibrillation (on Coumadin), CKD stage III, a history of Renal Cell Carcinoma (s/ p nephrectomy), sciatica, hypercholesterolemia, chronic opioid use, and pulmonary HTN presents with CHF exacerbation. Patient is currently hemodynamically stable and is in no respiratory distress. Patient does not require ICU level of care at this time. We will recommend diuresis of the patient along with completion of Head CT, which the patient refused because she states "she had one done recently." Monitor H and H, as patient has supratherapeutic INR. Monitor electrolytes and replete as needed. If patient's status deteriorates, we will evaluate as needed. Seth, PGY-2 <Celsa MERA,Cedric - Last Filed: 04/26/17 07:56> Meds - Medications Medications: Current Medications Alprazolam (Xanax) 0.5 mg PO BID PRN; Protocol PRN Reason: Anxiety Stop: 05/03/17 07:25 Aspirin (Aspirin Chewable) 81 mg PO DAILY ISAI Atorvastatin Calcium (Lipitor) 20 mg PO DAILY ISAI Donepezil HCl (Aricept) 10 mg PO HS ISAI Furosemide (Lasix) 40 mg IVP DAILY ISAI Ketorolac Tromethamine (Toradol) 30 mg IVP Q6H PRN PRN Reason: Pain, severe (8-10) Levalbuterol HCl (Xopenex) 0.63 mg IH [id number] PRN PRN Reason: Shortness of Breath Metoprolol Tartrate (Lopressor) 12.5 mg PO BID ISAI Pantoprazole Sodium (Protonix Ec Tab) 40 mg PO 0600 ISAI Tramadol HCl (Ultram) 50 mg PO TID PRN PRN Reason: Pain, moderate (4-7) Results - Vital Signs Recent Vital Signs: Last Vital Signs Temp 98.6 F 04/25/17 18:33 Pulse 60 04/26/17 03:14 Resp 18 04/26/17 00:29 BP 134/82 04/25/17 22:42 Pulse Ox 98 04/25/17 23:01 - Labs Result Diagrams: 04/25/17 17:30 04/25/17 17:30 Labs: Laboratory Results - last 24 hr 04/25/17 20:40 PT 65.1 H INR 5.51 H* APTT 49.4 H Attending/Attestation - Attestation I have personally seen and examined this patient.: Yes I have fully participated in the care of the patient.: Yes I have reviewed all pertinent clinical information: Yes Notes (Text): -I agree with the above ICU evaluation note completed by the resident physician with the following additions and/or changes: -The patient is an 81 year old woman with a history of HTN, chronic atrial fibrillation (on Coumadin), a history of bradycardia (s/p recent pacemaker placement), CKD stage III, a history of Renal Cell Carcinoma (s/p nephrectomy), sciatica, hypercholesterolemia, chronic opioid use, and pulmonary HTN who presents with SOB due to acute pulmonary edema. Incidentally, she was also noted to have a supra-therapeutic INR and anemia on ED labs. However, she has no signs or symptoms of overt bleeding and her rectal exam (per ED physician) is normal. Because she has essentially normal vital signs and no signs or symptoms of overt bleeding, she doesn't require ICU level of care at this time. If her condition deteriorates, please feel free to re-consult. Thank you.
[2017-04-25] MEDS ORDERED: Phytonadione 10 MG in Sodium Chloride 0.9% 50 ML IV ONE (21:36)
--- NOTE | 2017-04-25 21:57 | CP.PCM.PN ---
Subjective - Date & Time of Evaluation Date of Evaluation: 04/25/17 Time of Evaluation: 21:53 - Subjective Subjective: S: Patient is anemic . Needs blood transfusion , nurse asked me to insert heparin lock. She also mentioned to me that INR is 5.51. Patient has no acute symptom now. Medical record was reviewed. O: Last Vital Signs 3 Temp 98.6 F 04/25/17 18:33 Pulse 81 04/25/17 16:20 Resp 18 04/25/17 16:20 BP 141/64 04/25/17 16:20 Pulse Ox 97 04/25/17 16:20 Alert, awake, not in distress. LUNGS:Normal breathing pattern. A: Poor venous access. Coagulopathy. Anemia. P:# 22 angiocath was inserted in right hand. Vit K 10 mg IV ordered. Objective - Vital Signs/Intake and Output Vital Signs (last 24 hours): Temp Pulse Resp BP Pulse Ox 98.6 F 81 18 141/64 97 04/25/17 18:33 04/25/17 16:20 04/25/17 16:20 04/25/17 16:20 04/25/17 16:20 - Medications Medications: Current Medications Phytonadione 10 mg/ Sodium (Chloride) 51 mls @ 100 mls/hr IV ONCE ONE Stop: 04/25/17 22:06 - Labs Labs: PT 65.1 SECONDS (9.4-12.5) H 04/25/17 20:40 INR 5.51 (0.93-1.08) H* 04/25/17 20:40 APTT 49.4 Seconds (25.1-36.5) H 04/25/17 20:40
[2017-04-26] MEDS ORDERED: Oxycodone/Acetaminophen 5/325 mg Tab PO STA (01:04)
[2017-04-26] MEDS ORDERED: Levalbuterol 0.63 MG/3 ML Inhal Soln UD IH PRN (07:36)
--- NOTE | 2017-04-26 10:00 | CARD ---
APPROVED REPORT EKG Measurement Heart [id number] MT 210P [id number] <Conclusion> Electronic ventricular pacemaker: 100% V. Paced Atrial Flutter
--- NOTE | 2017-04-26 11:16 | CON ---
DATE: 04/26/2017 PULMONARY CONSULTATION REASON FOR CONSULTATION: Shortness of breath. REFERRING PHYSICIAN: Marco Farris DO HISTORY OF PRESENT ILLNESS: The patient is an 81-year-old female, with past medical history significant for paroxysmal atrial fibrillation (on Coumadin), chronic kidney disease, renal cell carcinoma, hyperlipidemia, hypertension, who presents to [facility] with a 3-day history of worsening shortness of breath at rest and dyspnea on exertion. The patient denies cough or sputum production. The patient also denies chest pain, coughing up of blood, or chest pain - made worse with deep respirations. There is no history of temperatures, chills or infectious exposure. There is no history of night sweats, weight loss or appetite change prior to the above events. No history of calf pains. No history of syncope or diaphoresis. No history of recent travel or trauma. REVIEW OF SYSTEMS: No history of nausea, vomiting or diarrhea. No acute urinary symptoms. No new neurologic or musculoskeletal complaints. Rest of the review of systems is negative. ALLERGIES: NO KNOWN ALLERGIES. SOCIAL HISTORY: Positive for former tobacco usage. No alcohol. FAMILY HISTORY: No inheritable diseases. HOME MEDICATIONS: Include Protonix, Lopressor, Aricept, Lipitor, aspirin, Xanax. PHYSICAL EXAMINATION GENERAL: The patient is not short of breath at rest this morning. She is not using accessory muscles for breathing. VITAL SIGNS: Temperature is 98.6, pulse is 60, respirations 18, blood pressure 134/82. Oxygen saturation on nasal cannula is 98%. HEENT: Normocephalic, atraumatic. No JVD. CARDIOVASCULAR: Systolic ejection murmur at the lower left sternal border. Positive S3 gallop. LUNGS: Minimal crackles at the bases. Minimal bilateral rhonchi. No wheezing. EXTREMITIES: No clubbing, cyanosis or edema. Calves are nontender to palpation. GI: Abdomen is soft, nontender and nondistended. Bowel sounds are positive. SKIN: No acute rash. NEUROLOGIC: Limited at the present time. PERTINENT LABORATORY DATA: Chest x-ray was done yesterday and reviewed. There is teug-th-sgkyxwgo pulmonary edema noted. CBC: White count 7.9, hemoglobin 7.7, hematocrit 26.2, platelets of 199,000. INR 5.51. Complete metabolic profile: Chloride 113, BUN 42, creatinine 1.6, LDH 705. B-type natriuretic peptide 2950. Troponin 0.04. Rest of the metabolic profile is within normal limits. IMPRESSION: 1. Acute congestive heart failure. 2. Mild bronchospasm. 3. Severe anemia. 4. Renal insufficiency. PLAN: The patient presents to [facility] with a 3-day history of worsening shortness of breath at rest and dyspnea on exertion. The patient offers no other pulmonary complaints. I did review the chest x-ray as above. The chest x-ray is consistent with abfs-sd-eowtahtp pulmonary edema. I have also reviewed the laboratory data. There is a significant rise in the B-type natriuretic peptide. Cardiology evaluation with Dr. Fonseca has been ordered. The patient was given Lasix in the emergency room. On physical exam, there is mild bronchospasm noted. However, there is no significant alveolar-arterial gradient. Oxygen saturation on nasal cannula is 98%. I will continue the Xopenex nebulizer treatments(scheduled) for now. Renal evaluation has also been ordered. The patient does feel better, and is clinically improved this morning - compared to the past few days. Additional pulmonary intervention will be based on the clinical status of the patient. I did discuss the above with Dr. Farris earlier this morning. Thank you very much for this pulmonary consultation. Jake Smith MD MTDD
[2017-04-26] MEDS: Levalbuterol 1.25 MG/3 ML Inhal Soln UD IH SCH ×3 (11:28→22:46)
[2017-04-26 11:33] LABS: IRON 36 ug/dL (45-180)
[2017-04-26 11:44] LABS: % IRON SATURATION 10 % (20-55); TOTAL IRON BINDING CAPACITY 372 ug/dL (265-497)
[2017-04-26 11:51] LABS: INR 1.96 (0.93-1.08); PROTHROMBIN TIME 22.8 SECONDS (9.4-12.5)
[2017-04-26] MEDS ORDERED: Darbepoetin Alfa 60 mcg/ml Inj SC ONE (15:18)
--- NOTE | 2017-04-26 15:18 | CP.PCM.CON ---
History of Present Illness - History of Present Illness History of Present Illness: Nephrology Consultation: Assessment: severe anemia and CHF exacerbation Chronic Kidney Disease Stage 3 (N18.3) with 322 mg proteinuria possibly due to HTN, age related decline, and s/p Rt nephrectomy due to hx of RCC Hypertension controlled (I12.9) Vit D insufficiency with secondary hyperparathyroidism hx of severe pulmonary HTN (RVSP 81 mm Hg) and moderate to severe LVH hx of dementia bradycardia s/p PPM Plan no acute need of renal replacement therapy at this time Hypertension control with meds as ordered. consider ACEI or ARB once CHF exacerbation optimized with diuretics She is already on statin agree with lasix anemia management: PRBC 04/26/17: started on iron 324 mg TID and MVI. dose of aransep 60 mcg on 04/26/17 Cardiology and pulmonary following Dose meds/antibiotics for reduced GFR. Avoid fleets enema/magnesium based laxatives. Avoid nephrotoxins/NSAIDs/IV iodinated contrast (unless emergent) Further work up as per primary team Thanks for allowing me to participate in care of your patient. will follow with you. Please call if any Qs Dr Jt Lemon Office: [phone] Chief Complaint: SOB Reason for consult: CKD and PATRICIA HPI: Pt is a 81 y/o F with hx of hypertension (20 years) , renal cell cancer s/ p unilateral total nephrectomy, CKD stage 3 with baseline cr 1.4-1.7 since 2017 but intermittent episodes of PATRICIA, chronic anemia, A fib, bradycardia s/p PPM admitted with SOB, CHF exacerbation and anemia. seen for renal consult now she feels better. improved SOB. denies chest pain/nausea or urinary complaints. rest all other negative. ROS: denies CP/nausea/vomitting/pain abdomen or urine complaints all other negative except as in HPI Physical Examination: General Appearance: Comfortable, in no acute respiratory distress, co-operative . Vitals reviewed and noted as below Head; Atraumatic, normocephalic ENT: no ulcers no thrush. Tongue is midline. Oropharynx: no rash or ulcers. EYES: Pupils are equal, round and reactive to light accommodation. Eye muscles and extraocular movement intact. Sclera is anicteric. Neck; supple no lymphadenopathy, no thyromegaly or bruit Lungs: Normal respiratory rate/effort. Breath sounds bilateral equal and with left basal crackles Heart: Normal rate. s1s2 normal. No rub or gallop. has PPM Extremities: no edema. No varicose veins Neurological: Patient is alert, awake and oriented x3 but seems forgetful, sometime trying to make up for it. No other focal deficit. Strength bilateral appropriate and equal Skin: Warm and dry. Normal turgor. No rash. Palpitation: Normal elasticity for age Abdomen: Abdomen is soft. Bowel sounds +. There is no abdominal tenderness, no guarding/rigidity or organomegaly Psych: limited insight and has normal affect/mood MSK: no joint tenderness or swelling. Digits and nails normal, no deformity : kidney or bladder not palpable Labs/imaging/EKG reviewed. Past medical history, past surgical history,social history, allergy reviewed and noted as below FAMILy HX; no hx of CKD. non contributory work up: CT 2017: s/p Rt nephrectomy, left kidney unremarkable Vit D 35 PTH 70 Past Patient History - Infectious Disease Hx of Infectious Diseases: None - Tetanus Immunizations Tetanus Immunization: >10 years Ago - Past Medical History & Family History Past Medical History?: Yes - Past Social History Smoking Status: Never Smoked - CARDIAC Hx Cardiac Disorders: Yes Hx Congestive Heart Failure: Yes Hx Hypertension: Yes Other/Comment: + R sided pacemaker - PULMONARY Hx Respiratory Disorders: No - NEUROLOGICAL Hx Dementia: Yes - HEENT Hx HEENT Problems: Yes (glasses) - RENAL Hx Chronic Kidney Disease: Yes - ENDOCRINE/METABOLIC Hx Endocrine Disorders: No - HEMATOLOGICAL/ONCOLOGICAL Hx Blood Disorders: Yes Hx Anemia: Yes - INTEGUMENTARY Hx Dermatological Problems: No - MUSCULOSKELETAL/RHEUMATOLOGICAL Hx Falls: No - GASTROINTESTINAL Hx Gastroesophageal Reflux: Yes - GENITOURINARY/GYNECOLOGICAL Hx Genitourinary Disorders: No - PSYCHIATRIC Hx Psychophysiologic Disorder: Yes Hx Anxiety: Yes Hx Substance Use: No - SURGICAL HISTORY Other/Comment: Pacemaker placement - ANESTHESIA Hx Anesthesia: Yes Hx Anesthesia Reactions: No Hx Malignant Hyperthermia: No Meds Allergies/Adverse Reactions: Allergies Allergy/AdvReac Type Severity Reaction Status Date / Time No Known Allergies Allergy Verified 03/26/17 04:42 - Medications Medications: Current Medications Alprazolam (Xanax) 0.5 mg PO BID PRN; Protocol PRN Reason: Anxiety Stop: 05/03/17 07:25 Aspirin (Aspirin Chewable) 81 mg PO DAILY [facility] Last Admin: 04/26/17 09:58 Dose: 81 mg Atorvastatin Calcium (Lipitor) 20 mg PO DAILY [facility] Last Admin: 04/26/17 10:01 Dose: 20 mg Donepezil HCl (Aricept) 10 mg PO HS [facility] Ferrous Gluconate (Fergon) 324 mg PO TID [facility] Last Admin: 04/26/17 14:44 Dose: 324 mg Furosemide (Lasix) 40 mg IVP DAILY [facility] Last Admin: 04/26/17 09:30 Dose: 40 mg Levalbuterol HCl (Xopenex) 1.25 mg IH TID [facility] Last Admin: 04/26/17 13:12 Dose: Not Given Metoprolol Tartrate (Lopressor) 12.5 mg PO BID [facility] Last Admin: 04/26/17 09:58 Dose: 12.5 mg Multivitamins/Minerals (Therapeutic-M Tab) 1 tab PO 0800 [facility] Pantoprazole Sodium (Protonix Ec Tab) 40 mg PO 0600 [facility] Tramadol HCl (Ultram) 50 mg PO TID PRN PRN Reason: Pain, moderate (4-7) Last Admin: 04/26/17 15:03 Dose: 50 mg Results - Vital Signs Recent Vital Signs: Last Vital Signs Temp 98.0 F 04/26/17 13:50 Pulse 80 04/26/17 13:50 Resp 16 04/26/17 13:50 BP 137/77 04/26/17 13:50 Pulse Ox 98 04/25/17 23:01 - Labs Result Diagrams: 04/25/17 17:30 04/25/17 17:30 Labs: Laboratory Results - last 24 hr 04/25/17 04/26/17 04/26/17 20:40 06:30 11:21 PT 65.1 H 22.8 H INR 5.51 H* 1.96 H APTT 49.4 H Iron TIBC % Saturation Blood Type AB POSITIVE Antibody Screen Negative Crossmatch See Detail BBK History Checked Patient has bt 04/26/17 11:21 PT INR APTT Iron 36 L TIBC 372 % Saturation 10 L Blood Type Antibody Screen Crossmatch BBK History Checked
[2017-04-26 16:20] LABS: BASO # 0.02 K/mm3 (0.0-2.0); BASO % 0.3 % (0.0-3.0); EOS # 0.3 (0.0-0.7); EOS % 3.5 % (1.5-5.0); GRAN # 5.28 (1.4-6.5); GRAN % 68.9 % (50.0-68.0); LYMPH # 1.7 (1.2-3.4); LYMPH % 21.9 % (22.0-35.0); MEAN CORPUSCULAR HEMOGLOBIN 24.6 pg (25.0-35.0); MEAN CORPUSCULAR HGB CONC 31.1 g/dl (31.0-37.0); MONO # 0.4 (0.1-0.6); MONO % 5.4 % (1.0-6.0); PLATELET COUNT 165 10^3/uL (120.0-450.0); RBC 4.19 10^6/uL (3.5-6.1); RED CELL DISTRIBUTION WIDTH 24.7 % (11.5-14.5); WHITE BLOOD COUNT 7.7 10^3/ul (4.5-11.0)
[2017-04-26 16:24] LABS: HEMOGLOBIN 10.3 g/dL (12.0-16.0)
--- NOTE | 2017-04-26 22:45 | CON ---
DATE: 04/26/2017 CARDIOLOGY FOLLOWUP HISTORY OF PRESENT ILLNESS: The patient is an 81-year-old woman with one of multiple admissions. This admission is for dyspnea. PAST MEDICAL HISTORY: Includes a recent pacemaker for chronic symptomatic bradycardia. She has had no dizziness. No issues related to her heart rate since the pacemaker has been placed. Her past medical history is notable for an echocardiogram, which reveals normal LV function with severe pulmonary hypertension. In addition, her past medical history is notable for CAD and hypercholesterolemia. She denies chest pain, denies shortness of breath now. SOCIAL HISTORY: Does not smoke. REVIEW OF SYSTEMS: A 14-point review of systems is reviewed in detail. There were no cardiac symptoms noted. PHYSICAL EXAMINATION: VITAL SIGNS: The heart rate is paced at 64. Blood pressure 132/68. NECK: Negative JVD. LUNGS: Without rales. HEART: S1, S2. EXTREMITIES: Without edema. LABORATORY DATA: Hemoglobin is 7.7. Chemistries, BUN and creatinine is 42 and 1.6. IMPRESSION: 1. Marked anemia. 2. Dyspnea, which is now resolved. 3. Severe pulmonary hypertension. 4. Status post pacemaker placement for symptomatic bradycardia. 5. Marked anemia. Given these findings, there is no evidence for congestive heart failure at this time. The patient is receiving packed red blood cells. Oswald Fonseca MD
--- NOTE | 2017-04-26 22:47 | HP ---
HISTORY OF PRESENT ILLNESS: I was supposed to house call on her this afternoon, but she could not hold out. She has been short of breath for about 3 days, not feeling well. She got worse when she went to [facility] and she to the emergency room. PAST MEDICAL HISTORY: Bradycardia, CHF, recent pacemaker placement, hypertension, right-sided pacemaker. She has dementia. She wears glasses. Anemia history, arthritis, reflux, anxiety. Also, atrial fibrillation, chronic kidney disease, COPD, history of renal cell carcinoma, sciatica, high cholesterol, chronic opioid use, pulmonary hypertension. PAST SURGICAL HISTORY: She has had a nephrectomy, hysterectomy. FAMILY HISTORY: There is hypertension in the family. ALLERGIES: NO KNOWN DRUG ALLERGIES. SOCIAL HISTORY: Former smoker. No alcohol. No drugs. MEDICATIONS: She is currently on Aricept, aspirin, Lasix now, Lipitor, Lopressor, Protonix. I am going to try Toradol and Ultram before I go back to OxyContin. She is on Xanax. REVIEW OF SYSTEMS: No apparent vision issues or hearing issues. No sore throat. She is very short of breath. No cough or wheezing. Dyspnea on exertion. No chest pain. No abdominal pain. No nausea, vomiting, constipation, or diarrhea. No problems urinating. No back pain. No rashes appreciated. No headache, dizziness, or focal weakness. Denies any easy bleeding. No anxiety or depression at this time. She is comfortable. No tremors or headaches. PHYSICAL EXAMINATION: VITAL SIGNS: She has a 98.6 temperature, 81 pulse, 18 respiratory rate, 141/64 blood pressure, 97% O2 sat. GENERAL: She is alert and oriented. She is comfortable. She is feeling much better after I gave her some Lasix IV. HEENT: Head is atraumatic, normocephalic. Extraocular muscles are intact. Throat is moist. NECK: Supple. Mild JVD. Thyroid midline. HEART: Regular rhythm. LUNGS: Decreased breath sounds, but clear to auscultation. There were rales, but none at this time. ABDOMEN: Soft, nontender. Positive bowel sounds. No guarding, no rebound, no CVA tenderness. EXTREMITIES: Have no edema. RECTAL: I did a rectal in the ER, it was normal, some hemorrhoids, but no gross blood, no melena. NEUROLOGIC: She is alert, oriented. Cranial nerves II-XII grossly intact. She is comfortable. No anxiety or depression at this time. SKIN: For the most part is intact that I can tell, no apparent rashes or ulcers. LYMPHATICS: No palpable appreciable lymphadenopathy. LABORATORY DATA: She had a chest x-ray, was consistent with congestive heart failure. She is short of breath. She has a urine, which is negative. Negative for the flu. Sodium 148, potassium 4.5, BUN 42, creatinine 1.6, sugar is 91, calcium is 10.2. Total bilirubin is 0.9, AST is 23, ALT is 30, alkaline phosphatase 91, lactate dehydrogenase 705. Troponin I is 0.04. BNP is high at 2150. She will be on Lasix. Total protein 7.6. INR is very high at 5.5. She is on Coumadin for her AFib, but I am putting it on hold for right now because the INR is elevated. She has a 7.9 white count, 7.7 hemoglobin, given her 2 units packed red blood cells, hematocrit is 26.2, platelets of 199. ASSESSMENT AND PLAN: She will have consults with Cardiology, Pulmonary, Renal and Physical Therapy. She might need rehab or TCU to get physical therapy and get her out of bed to chair. She is here for congestive heart failure, anemia, atrial fibrillation, coagulopathy. She was short of breath. Thank you very much. Marco Farris DO MTDD
[2017-04-27 04:01] VITALS: RESP 18
[2017-04-27] MEDS ORDERED: Pantoprazole 40 mg EC Tab PO SCH (06:00)
[2017-04-27 06:38] VITALS: O2SAT 100
[2017-04-27 07:38] LABS: HEMOGLOBIN 10.2 g/dL (12.0-16.0); MEAN CELL VOLUME 77.7 fl (80.0-105.0); MEAN CORPUSCULAR HEMOGLOBIN 24.5 pg (25.0-35.0); MEAN CORPUSCULAR HGB CONC 31.5 g/dl (31.0-37.0); PLATELET COUNT 164 10^3/uL (120.0-450.0); RBC 4.17 10^6/uL (3.5-6.1); RED CELL DISTRIBUTION WIDTH 24.2 % (11.5-14.5)
[2017-04-27 07:53] LABS: INR 1.41 (0.93-1.08); PROTHROMBIN TIME 16.3 SECONDS (9.4-12.5)
--- NOTE | 2017-04-27 07:53 | PN ---
DATE: 04/27/2017 PULMONARY NOTE SUBJECTIVE: The patient appears comfortable this morning. She is not short of breath at rest. PHYSICAL EXAMINATION VITAL SIGNS: Temperature is 97.9, pulse is 64, respirations 18, blood pressure 124/69. Oxygen saturation on nasal cannula is 100%. HEENT: Normocephalic, atraumatic. No JVD. CARDIOVASCULAR: Systolic ejection murmur at the lower left sternal border. Positive S3 gallop. LUNGS: Minimal crackles at the bases. Very minimal/less rhonchi. No wheezing. EXTREMITIES: No clubbing, cyanosis or edema. Calves are nontender to palpation. GI: Abdomen is soft, nontender and nondistended. Bowel sounds are positive. SKIN: No acute rash. NEUROLOGIC: Limited at the present time. IMPRESSION: 1. Acute congestive heart failure. 2. Mild bronchospasm. 3. Severe anemia. 4. Renal insufficiency. PLAN: The patient appears comfortable this morning. She is not short of breath at rest. She does state to feeling much better overall. On physical exam, there is certainly less bronchospasm noted. In addition, the oxygen saturation on nasal cannula is now 100%. I will continue the current nebulizer treatments for now. I would continue with the treatment for congestive heart failure as per Cardiology. Input by Dr. Fonseca is noted. Clinical status of the patient is improved. I will discuss the above with Dr. Farris. Jake Smith MD MTDEugene
[2017-04-27] MEDS ORDERED: Multivitamin With Minerals Tab PO SCH (08:00)
[2017-04-27 08:16] LABS: ALB/GLOB RATIO 0.9 (1.1-1.8); ALBUMIN 3.5 g/dL (3.0-4.8); CALCIUM 9.3 mg/dL (8.4-10.5)
[2017-04-27] MEDS: Levalbuterol 1.25 MG/3 ML Inhal Soln UD IH SCH ×2 (08:24→13:36)
[2017-04-27 09:12] VITALS: TEMP 96.7
--- NOTE | 2017-04-27 09:50 | PQF ANEMIA ---
This form is a permanent part of the medical record Clarification of your documentation is requested to better reflect the severity of illness and intensity of treatment of your patient. Indicators present Admitted with anemia, Hx nephrectomy dt RCC. Dr Fonseca states " no evidence of CHF in consult of 04/26. Please clarify type of anemia present on admission & treated w/ 2 UPRBC. Anemia of CKD? x[] Anemia [] Drop in H&H from [x]__7.2/26.2_on admission [] Hypotension [] GI Bleed [x] Transfusion(s) 2UPRBC [] Acute bleed other sites [] Tachycardia [] Surgical Procedure Blood Loss (expected not a complication) Other:[] Location in the medical record that reflects the above clinical findings: [x] Admitting DX Treatment Provided: [x] 2 UPRBC PHYSICIAN'S RESPONSE Based on your medical judgment of the clinical indicators outlined above, are you treating this patient for a known or suspected: [] Acute blood loss anemia [] Chronic blood loss anemia [] Acute on Chronic blood loss anemia [] Anemia due to malignancy [] Anemia due to chemotherapy or radiation therapy [zzz] Anemia of Chronic Disease, please specify: [] [] Other, please indicate type of anemia []____ [] If Unable to Determine, please check the box, sign and date. Present On Admission (POA) Indicator: [] Present at the time of admission [] Not present at the time of admission [] Clinically Undetermined In responding to this query, please exercise your independent professional judgment. The fact that a question is asked does not imply that any particular answer is desired or expected. Thank you for your clarification on this documentation. If you have any questions please call:[ ] [phone] * Thank you, [ ]Kate Prescott RN CDS php developer [employer]
--- NOTE | 2017-04-27 09:59 | CP.PCM.PN ---
Subjective - Date & Time of Evaluation Date of Evaluation: 04/27/17 Time of Evaluation: 09:58 - Subjective Subjective: Nephrology Consultation: Assessment: severe anemia and CHF exacerbation Chronic Kidney Disease Stage 3 (N18.3) with 322 mg proteinuria possibly due to HTN, age related decline, and s/p Rt nephrectomy due to hx of RCC Hypertension controlled (I12.9) Vit D insufficiency with secondary hyperparathyroidism hx of severe pulmonary HTN (RVSP 81 mm Hg) and moderate to severe LVH hx of dementia bradycardia s/p PPM Plan no acute need of renal replacement therapy at this time Hypertension control with meds as ordered. consider ACEI or ARB once CHF exacerbation optimized with diuretics She is already on statin agree with lasix, can switch to PO from tomorrow anemia management: PRBC 04/26/17: started on iron 324 mg TID and MVI. dose of aransep 60 mcg on 04/26/17 Cardiology and pulmonary following Dose meds/antibiotics for reduced GFR. Avoid fleets enema/magnesium based laxatives. Avoid nephrotoxins/NSAIDs/IV iodinated contrast (unless emergent) Further work up as per primary team Thanks for allowing me to participate in care of your patient. will follow with you. Please call if any Qs Dr Jt Lemon Office: [phone] Reason for consult: CKD and PATRICIA HPI: Pt is a 81 y/o F with hx of hypertension (20 years) , renal cell cancer s/ p unilateral total nephrectomy, CKD stage 3 with baseline cr 1.4-1.7 since 2017 but intermittent episodes of PATRICIA, chronic anemia, A fib, bradycardia s/p PPM admitted with SOB, CHF exacerbation and anemia. seen for renal consult now she feels better. improved SOB. denies chest pain/nausea or urinary complaints. rest all other negative. ROS: denies CP/nausea/vomitting/pain abdomen or urine complaints. SOB resolved all other negative except as in HPI Physical Examination: General Appearance: Comfortable, in no acute respiratory distress, co-operative . Vitals reviewed and noted as below Head; Atraumatic, normocephalic ENT: no ulcers no thrush. Tongue is midline. Oropharynx: no rash or ulcers. EYES: Pupils are equal, round and reactive to light accommodation. Eye muscles and extraocular movement intact. Sclera is anicteric. Neck; supple no lymphadenopathy, no thyromegaly or bruit Lungs: Normal respiratory rate/effort. Breath sounds bilateral equal and with bibasal crackles Heart: Normal rate. s1s2 normal. No rub or gallop. has PPM Extremities: no edema. No varicose veins Neurological: Patient is alert, awake and oriented x3 but seems forgetful, sometime trying to make up for it. No other focal deficit. Strength bilateral appropriate and equal Skin: Warm and dry. Normal turgor. No rash. Palpitation: Normal elasticity for age Abdomen: Abdomen is soft. Bowel sounds +. There is no abdominal tenderness, no guarding/rigidity or organomegaly Psych: limited insight and has normal affect/mood MSK: no joint tenderness or swelling. Digits and nails normal, no deformity : kidney or bladder not palpable Labs/imaging/EKG reviewed. Past medical history, past surgical history,social history, allergy reviewed and noted as below FAMILy HX; no hx of CKD. non contributory work up: CT 2017: s/p Rt nephrectomy, left kidney unremarkable Vit D 35 PTH 70 Objective - Vital Signs/Intake and Output Vital Signs (last 24 hours): Temp Pulse Resp BP Pulse Ox 96.7 F L 77 18 137/80 100 04/27/17 08:00 04/27/17 08:00 04/27/17 08:00 04/27/17 08:00 04/27/17 08:00 Intake and Output: 04/27/17 04/27/17 06:59 18:59 Intake Total 360 Output Total 600 Balance -240 - Medications Medications: Current Medications Alprazolam (Xanax) 0.5 mg PO BID PRN; Protocol PRN Reason: Anxiety Stop: 05/03/17 07:25 Last Admin: 04/26/17 19:39 Dose: 0.5 mg Aspirin (Aspirin Chewable) 81 mg PO DAILY [facility] Last Admin: 04/26/17 09:58 Dose: 81 mg Atorvastatin Calcium (Lipitor) 20 mg PO DAILY [facility] Last Admin: 04/26/17 10:01 Dose: 20 mg Donepezil HCl (Aricept) 10 mg PO HS [facility] Last Admin: 04/26/17 22:59 Dose: 10 mg Ferrous Gluconate (Fergon) 324 mg PO TID [facility] Last Admin: 04/26/17 18:24 Dose: 324 mg Furosemide (Lasix) 40 mg IVP DAILY [facility] Last Admin: 04/26/17 09:30 Dose: 40 mg Levalbuterol HCl (Xopenex) 1.25 mg IH TID [facility] Last Admin: 04/27/17 08:24 Dose: 1.25 mg Metoprolol Tartrate (Lopressor) 12.5 mg PO BID [facility] Last Admin: 04/26/17 18:25 Dose: 12.5 mg Multivitamins/Minerals (Therapeutic-M Tab) 1 tab PO 0800 [facility] Last Admin: 04/27/17 08:05 Dose: 1 tab Pantoprazole Sodium (Protonix Ec Tab) 40 mg PO 0600 [facility] Last Admin: 04/27/17 05:13 Dose: 40 mg Tramadol HCl (Ultram) 50 mg PO TID PRN PRN Reason: Pain, moderate (4-7) Last Admin: 04/27/17 04:01 Dose: 50 mg Warfarin Sodium (Coumadin) 3 mg PO 1800 [facility] PRN Reason: Protocol - Labs Labs: 04/27/17 07:00 04/27/17 07:00 PT 16.3 SECONDS (9.4-12.5) H 04/27/17 07:00 INR 1.41 (0.93-1.08) H 04/27/17 07:00 APTT 49.4 Seconds (25.1-36.5) H 04/25/17 20:40
--- NOTE | 2017-04-27 13:07 | PN ---
DATE: SUBJECTIVE: I saw her resting comfortably in bed. She slept fairly well. She is in fairly good spirits. No chest pain or shortness of breath and she is smiling. She looks and feels a lot better, I think, after the transfusion. MEDICATIONS: She is on Aranesp, Aricept, aspirin, Coumadin, Fergon, Lasix, Lipitor, Lopressor, Percocet, Protonix, Thera-Tabs, Ultram, Xanax and Xopenex. PHYSICAL EXAMINATION: VITAL SIGNS: She has a 97.9 temperature, 64 pulse, 124/69 blood pressure, 18 respiratory rate, and 100% O2 sat on nasal cannula. HEENT: Head is atraumatic, normocephalic. Throat is moist. NECK: Supple. HEART: Regular rate. LUNGS: Clear to auscultation bilaterally. ABDOMEN: Soft. EXTREMITIES: No edema. She is being seen by Cardiology and Pulmonary. She is still being diuresed. She was transfused. LABORATORY DATA: Today, she is negative for the flu. She has a white count of 6, hemoglobin up to 10.2, hematocrit 32.4, platelets 164. INR is 1.41. Chemistries: Sodium 142, potassium 4.3, BUN 50, creatinine 1.8, GFR is 37, total bilirubin is 1, AST is 27, ALT is 19, alkaline phosphatase is 79. Urine is clean. ASSESSMENT AND PLAN: She is here for severe anemia status post transfusions. She congestive heart failure, shortness of breath. Awaiting for physical therapy. now, she can go home or she needs to rehab or TCU. She is definitely improving. I will check her labs tomorrow, managing her Coumadin and INR. She is being seen by Pulmonary, Cardiology and Renal. Marco Farris DO MTDD
--- NOTE | 2017-04-27 17:25 | PN ---
DATE: 04/27/2017 CARDIOLOGY FOLLOWUP SUBJECTIVE: The patient complained of transient chest discomfort which the patient was unable to describe. Her symptoms are now gone. She does admit to mild shortness of breath during this episode. PHYSICAL EXAMINATION: VITAL SIGNS: Blood pressure is 137/80, the heart rate is paced in the 60s. NECK: Negative JVD. LUNGS: Clear to auscultation. HEART: S1, S2. EXTREMITIES: Without edema. LABORATORY DATA: Hemoglobin is 10.2. Chemistries: BUN and creatinine are 50 and 1.8. IMPRESSION: 1. Transient chest pain. 2. EKG is non helpful given that the patient has a paced rhythm. 3. Renal insufficiency. 4. Pulmonary hypertension. 5. Dyspnea. Given these findings, we will increase her beta-blockers to 25 b.i.d. In addition, we will add Imdur to her regimen to see whether we can resolve her chest discomfort. Oswald Fonseca MD
[2017-04-27 17:36] VITALS: BP 148/84; PULSE 60
--- NOTE | 2017-04-28 02:32 | CARD ---
APPROVED REPORT EKG Measurement Heart [id number] <Conclusion> Electronic ventricular pacemaker
== END 2017-04-27 19:05 | disposition home or self-care (01) | DRG 292 ==
LOC: ED 15:38 → ERH 18:31 → 3RSO 23:09
PROVIDERS: ADMIT Family Medicine; ATTEND Family Medicine
PROC: 30233N1 Transfusion of Nonautologous Red Blood Cells into Peripheral Vein, Percutaneous Approach (ICD-10-PCS; principal; 2017-04-26)
DX: I13.0 Hypertensive heart and chronic kidney disease with heart failure and stage 1 through stage 4 chronic kidney disease, or unspecified chronic kidney disease (principal); N17.9 Acute kidney failure, unspecified; D68.9 Coagulation defect, unspecified; I27.20 Pulmonary hypertension, unspecified; I48.0 Paroxysmal atrial fibrillation; N18.3 Chronic kidney disease, stage 3 (moderate); N25.81 Secondary hyperparathyroidism of renal origin; J44.9 Chronic obstructive pulmonary disease, unspecified; D63.1 Anemia in chronic kidney disease; I50.9 Heart failure, unspecified; I48.2 Chronic atrial fibrillation; I25.10 Atherosclerotic heart disease of native coronary artery without angina pectoris; E78.00 Pure hypercholesterolemia, unspecified; E55.9 Vitamin D deficiency, unspecified; E78.5 Hyperlipidemia, unspecified; F03.90 Unspecified dementia, unspecified severity, without behavioral disturbance, psychotic disturbance, mood disturbance, and anxiety; J98.01 Acute bronchospasm; K21.9 Gastro-esophageal reflux disease without esophagitis; M54.30 Sciatica, unspecified side; Z79.01 Long term (current) use of anticoagulants; Z79.891 Long term (current) use of opiate analgesic; Z82.49 Family history of ischemic heart disease and other diseases of the circulatory system; Z85.528 Personal history of other malignant neoplasm of kidney; Z87.891 Personal history of nicotine dependence; Z90.5 Acquired absence of kidney; Z90.710 Acquired absence of both cervix and uterus; Z95.0 Presence of cardiac pacemaker; M19.90 Unspecified osteoarthritis, unspecified site; F41.9 Anxiety disorder, unspecified

== ENCOUNTER 2017-05-13 09:57 | Inpatient (IN) | payer MEDICARE ==
[2017-05-13 09:57] VITALS: PULSE 45
--- NOTE | 2017-05-13 11:27 | ED PDOC ---
Arrival/HPI - General Chief Complaint: Shortness Of Breath Time Seen by Provider: 05/13/17 11:06 Historian: Patient - History of Present Illness Narrative History of Present Illness (Text): 05/13/17 11:26 Patient is an 81 y/o F with afib, on coumadin, chf, copd, dementia, renal insufficiency, presenting with shortness of breath, x 3 days. Reports recent pacemaker insertion. Denies chest pain. Denies cough, fever. Denies leg swelling PMD: K[place] 05/13/17 11:27 Past Medical History - Provider Review Nursing Documentation Reviewed: Yes - Infectious Disease Hx of Infectious Diseases: None - Tetanus Immunization Tetanus Immunization: >10 years Ago - Reproductive Menopause: Yes - Cardiac Hx Cardiac Disorders: Yes Hx Congestive Heart Failure: Yes Hx Hypertension: Yes Other/Comment: + R sided pacemaker - Pulmonary Hx Respiratory Disorders: No - Neurological Hx Dementia: Yes - HEENT Hx HEENT Disorder: Yes (glasses) - Renal Hx Renal Disorder: Yes - Endocrine/Metabolic Hx Endocrine Disorders: No - Hematological/Oncological Hx Blood Disorders: Yes Hx Anemia: Yes - Integumentary Hx Dermatological Disorder: No - Musculoskeletal/Rheumatological Hx Arthritis: Yes - Gastrointestinal Hx Gastroesophageal Reflux: Yes - Genitourinary/Gynecological Hx Genitourinary Disorders: No - Psychiatric Hx Psychophysiologic Disorder: Yes Hx Anxiety: Yes Hx Substance Use: No - Surgical History Other/Comment: Pacemaker placement - Anesthesia Hx Anesthesia: Yes Hx Anesthesia Reactions: No Hx Malignant Hyperthermia: No Family/Social History - Physician Review Nursing Documentation Reviewed: Yes Family/Social History: No Known Family HX Smoking Status: Never Smoked Hx Alcohol Use: No Hx Substance Use: No Allergies/Home Meds Allergies/Adverse Reactions: Allergies No Known Allergies Allergy (Verified 05/13/17 09:59) Home Medications: Home Meds Medication Instructions Recorded Confirmed ALPRAZolam [Xanax] 0.5 mg PO BID PRN 10/31/16 05/13/17 Review of Systems - Physician Review All systems were reviewed & negative as marked: Yes - Review of Systems Constitutional: absent: Fevers, Night Sweats Respiratory: SOB. absent: Cough Cardiovascular: absent: Chest Pain Gastrointestinal: absent: Abdominal Pain, Diarrhea, Nausea, Vomiting Neurological: absent: Headache, Dizziness Physical Exam Vital Signs Reviewed: Yes Vital Signs Temp Pulse Resp BP Pulse Ox 05/13/17 13:12 110 H 16 102/64 100 05/13/17 12:54 16 100 05/13/17 11:20 105 H 18 102/65 95 05/13/17 10:08 97.9 F 92 H 18 100/63 98 Temperature: Afebrile Blood Pressure: Normal Pulse: Regular Respiratory Rate: Normal Appearance: Positive for: Well-Appearing Pain Distress: None Mental Status: Positive for: Alert and Oriented X 3 - Systems Exam Head: Present: Atraumatic, Normocephalic Pupils: Present: PERRL Extroacular Muscles: Present: EOMI Conjunctiva: Present: Normal Mouth: Present: Moist Mucous Membranes Neck: Present: Normal Range of Motion Respiratory/Chest: Present: Clear to Auscultation, Good Air Exchange, Other ( pacemaker site is clean and dry). No: Respiratory Distress, Accessory Muscle Use Cardiovascular: Present: Irregular Rhythm Abdomen: Present: Normal Bowel Sounds. No: Tenderness, Distention, Peritoneal Signs Upper Extremity: Present: Normal Inspection. No: Edema Lower Extremity: Present: Normal Inspection. No: Edema Skin: Present: Warm, Dry Psychiatric: Present: Alert, Oriented x 3 Medical Decision Making ED Course and Treatment: 05/13/17 11:25 Impression: 81 year old female with shortness of breath. Plan: -- Chest X-ray -- Labs -- Urinalysis -- Urine Culture -- Aspiring -- Reassess and disposition Progress Notes: 05/13/2017 12:33 Chest X-ray IMPRESSION: No acute findings. Dictator: Gaby Montanez MD EKG: Ordered, reviewed, and independently interpreted the EKG. Rate : 100 BPM Rhythm : Sinus tachycardia Interpretation : Right Bundle Branch Block, LVH, nonspecific ST changes. Comparison : unchanged from prior EKG. 05/13/17 15:06 Trop x 1 negative. BNP mildly elevated. INR elevated to 15. No active bleeding but anemia. Spoke to Dr. Farris who evaluated patient in ED. Will give vitamin K and will need observation. Requesting percocet for chronic pain. - Lab Interpretations Lab Results: 05/13/17 11:33 05/13/17 11:33 Lab Results 05/13/17 12:24: Urine Color Yellow, Urine Appearance Clear, Urine pH 6.0, Ur Specific [place] 1.020, Urine Protein Negative, Urine Glucose (UA) Negative, Urine Ketones Negative, Urine Blood Moderate H, Urine Nitrate Negative, Urine Bilirubin Negative, Urine Urobilinogen 0.2, Ur Leukocyte Esterase Trace H, Urine RBC 0 - 2, Urine WBC 2 - 5, Ur Epithelial Cells 4 - 5, Amorphous Sediment Few, Urine Bacteria Many, Urine Other [place]yeast 05/13/17 11:33: Sodium 143, Potassium 5.0, Chloride 114 H, Carbon Dioxide 19 L, Anion Gap 15, BUN 98 H, Creatinine 1.8 H, Est GFR ( Amer) 33, Est GFR ( Non-Af Amer) 27, Random Glucose 93, Calcium 9.6, Magnesium 2.3 H, Total Bilirubin 0.2, AST 29, ALT 26, Alkaline Phosphatase 61, Lactate Dehydrogenase 683, Total Creatine Kinase 69, Troponin I 0.05 D, NT-Pro-B Natriuret Pep 2900 H , Total Protein 7.3, Albumin 3.5, Globulin 3.9, Albumin/Globulin Ratio 0.9 L 05/13/17 11:33: PT 182.4 H, INR 15.01 H*, APTT 72.4 H 05/13/17 11:33: WBC 7.4 D, RBC 3.31 L, Hgb 8.1 L D, Hct 27.1 L, MCV 81.9 D, MCH 24.5 L, MCHC 29.9 L, RDW 24.2 H, Plt Count 272, MPV 9.7, Gran % 74.2 H, Lymph % (Auto) 20.6 L, Garvin % (Auto) 4.3, Eos % (Auto) 0.4 L, Baso % (Auto) 0.5 , Gran # 5.46, Lymph # (Auto) 1.5, Garvin # (Auto) 0.3, Eos # (Auto) 0.0, Baso # ( Auto) 0.04 I have reviewed the lab results: Yes - RAD Interpretation Radiology Orders: 05/13/17 11:24 CHEST PORTABLE [RAD] Stat - Medication Orders Current Medication Orders: Discontinued Medications Aspirin (Aspirin) 325 mg PO STAT STA Stop: 05/13/17 11:24 Last Admin: 05/13/17 11:57 Dose: 325 mg Oxycodone/Acetaminophen (Percocet 5/325 Mg Tab) 1 tab PO STAT STA Stop: 05/13/17 12:54 Last Admin: 05/13/17 13:16 Dose: 1 tab MAR Pain Assessment Document 05/13/17 13:16 HI (Rec: 05/13/17 13:17 HI [id number]) Pain Reassessment Is this a pain reassessment? No Phytonadione (Vitamin K Tab) 5 mg PO ONCE ONE Stop: 05/13/17 12:39 Last Admin: 05/13/17 13:17 Dose: 5 mg - Scribe Statement The provider has reviewed the documentation as recorded by the Main [place] Provider Scribe Attestation: All medical record entries made by the Main were at my direction and personally dictated by me. I have reviewed the chart and agree that the record accurately reflects my personal performance of the history, physical exam, medical decision making, and the department course for this patient. I have also personally directed, reviewed, and agree with the discharge instructions and disposition. Disposition/Present on Arrival - Present on Arrival Any Indicators Present on Arrival: No History of DVT/PE: No History of Uncontrolled Diabetes: No Urinary Catheter: No History of Decub. Ulcer: No History Surgical Site Infection Following: None - Disposition Have Diagnosis and Disposition been Completed?: Yes Diagnosis: Anemia, Supratherapeutic INR Disposition: HOSPITALIZED Disposition Time: 12:55 Patient Plan: Observation Patient Problems: Current Active Problems Problem Status Onset Anemia Chronic Supratherapeutic INR Acute 11/06/15 Condition: FAIR
[2017-05-13 12:15] LABS: BASO # 0.04 K/mm3 (0.0-2.0); BASO % 0.5 % (0.0-3.0); EOS % 0.4 % (1.5-5.0); GRAN # 5.46 (1.4-6.5); GRAN % 74.2 % (50.0-68.0); HEMOGLOBIN 8.1 g/dL (12.0-16.0); LYMPH # 1.5 (1.2-3.4); LYMPH % 20.6 % (22.0-35.0); MEAN CELL VOLUME 81.9 fl (80.0-105.0); MEAN CORPUSCULAR HEMOGLOBIN 24.5 pg (25.0-35.0); MEAN CORPUSCULAR HGB CONC 29.9 g/dl (31.0-37.0); MEAN PLATELET VOLUME 9.7 fl (7.0-11.0); MONO # 0.3 (0.1-0.6); MONO % 4.3 % (1.0-6.0); RBC 3.31 10^6/uL (3.5-6.1); RED CELL DISTRIBUTION WIDTH 24.2 % (11.5-14.5); WHITE BLOOD COUNT 7.4 10^3/ul (4.5-11.0)
[2017-05-13 12:17] LABS: ALB/GLOB RATIO 0.9 (1.1-1.8); ALBUMIN 3.5 g/dL (3.0-4.8); CALCIUM 9.6 mg/dL (8.4-10.5)
[2017-05-13 12:25] LABS: TROPONIN I 0.05 ng/mL
[2017-05-13 12:27] LABS: PARTIAL THROMBOPLASTIN TIME 72.4 Seconds (25.1-36.5); PROTHROMBIN TIME 182.4 SECONDS (9.4-12.5)
[2017-05-13 12:29] LABS: INR 15.01 (0.93-1.08)
[2017-05-13 12:31] LABS: URINE BILIRUBIN NEGATIVE (NEGATIVE); URINE BLOOD MODERATE (NEGATIVE); URINE GLUCOSE (UA) NEGATIVE (NEGATIVE); URINE LEUKOCYTE ESTERASE TRACE Leu/uL (NEGATIVE); URINE PROTEIN NEGATIVE mg/dL (<30 mg/dL); URINE UROBILINOGEN 0.2 E.U./dL (<1 E.U./dL)
[2017-05-13 12:33] LABS: URINE APPEARANCE CLEAR (CLEAR); URINE COLOR YELLOW (YELLOW)
--- NOTE | 2017-05-13 12:35 | RAD ---
HISTORY: Shortness of breath COMPARISON: 04/25/2017. FINDINGS: LUNGS: The lungs are well inflated and clear. PLEURA: No significant pleural effusion identified, no pneumothorax apparent. CARDIOVASCULAR: There is mild cardiomegaly. There is stable position of a right-sided unipolar permanent pacing device. OSSEOUS STRUCTURES: Within normal limits for the patient's age. VISUALIZED UPPER ABDOMEN: Normal. OTHER FINDINGS: None. IMPRESSION: No acute findings.
[2017-05-13 12:37] LABS: URINE AMORPHOUS SEDIMENT FEW; URINE BACTERIA MANY (NEG); URINE RBC 0 - 2 /hpf (0-2)
[2017-05-13] MEDS ORDERED: Oxycodone/Acetaminophen 5/325 mg Tab PO STA (12:53)
[2017-05-13] MEDS ORDERED: Sodium Chloride 0.45% 1,000 ML IV SCH (17:15)
[2017-05-13 18:47] LABS: PROTHROMBIN TIME 206.6 SECONDS (9.4-12.5)
[2017-05-13 18:50] LABS: INR 17.1 (0.93-1.08)
[2017-05-13 19:14] VITALS: BMI 21.2
[2017-05-13] MEDS ORDERED: Pneumococcal 23-Valent Vaccine IM ONE (19:14)
[2017-05-13] MEDS ORDERED: Influenza Vaccine 60 mcg/0.5 mL SYR (4YR UP) IM ONE (19:14)
--- NOTE | 2017-05-13 21:59 | CP.PCM.CON ---
History of Present Illness - History of Present Illness History of Present Illness: Surgery: Dr. Jackson CC: Poor peripheral access HPI: 81F w. pmh of afib, HTN, CHF, CKD, dementia, renal CA, GERD, and recent pacemaker placement presents to ED for SOB x 3 days. Pt was found to have supratherapeutic INR 17, elevated BNP, and poor peripheral IV access for which surgery was consulted for. PMH: see above PSH: pacemaker, R nephrectomy Meds: MAR reviewed NKDA Social: former smoker, no ETOH/drugs Fhx: non-contributory Review of Systems - Review of Systems All systems: reviewed and no additional remarkable complaints except (hpi) Past Patient History - Infectious Disease Hx of Infectious Diseases: None - Tetanus Immunizations Tetanus Immunization: >10 years Ago - Past Medical History & Family History Past Medical History?: Yes - Past Social History Smoking Status: Former Smoker - CARDIAC Hx Cardiac Disorders: Yes Hx Cardia Arrhythmia: Yes (AFIB) Hx Congestive Heart Failure: Yes Hx Hypertension: Yes Other/Comment: + R sided pacemaker - PULMONARY Hx Respiratory Disorders: Yes (USED TO SMOKE 6 CIG A DAY) - NEUROLOGICAL Hx Neurological Disorder: Yes Hx Dementia: Yes Hx Dizziness: Yes (SYNCOPE) - HEENT Hx HEENT Problems: Yes (glasses) - RENAL Hx Chronic Kidney Disease: Yes - ENDOCRINE/METABOLIC Hx Endocrine Disorders: No - HEMATOLOGICAL/ONCOLOGICAL Hx Blood Disorders: Yes Hx Anemia: Yes - INTEGUMENTARY Hx Dermatological Problems: No - MUSCULOSKELETAL/RHEUMATOLOGICAL Hx Musculoskeletal Disorders: Yes Hx Arthritis: Yes Hx Falls: Yes Hx Unsteady Gait: Yes (CANE) - GASTROINTESTINAL Hx Gastrointestinal Disorders: Yes Hx Gastroesophageal Reflux: Yes - GENITOURINARY/GYNECOLOGICAL Hx Genitourinary Disorders: No - PSYCHIATRIC Hx Psychophysiologic Disorder: Yes Hx Anxiety: Yes Hx Substance Use: No - SURGICAL HISTORY Hx Surgeries: Yes Other/Comment: Pacemaker placement - ANESTHESIA Hx Anesthesia: Yes Hx Anesthesia Reactions: No Hx Malignant Hyperthermia: No Meds Allergies/Adverse Reactions: Allergies Allergy/AdvReac Type Severity Reaction Status Date / Time No Known Allergies Allergy Verified 05/13/17 15:40 - Medications Medications: Current Medications Alprazolam (Xanax) 0.5 mg PO BID PRN; Protocol PRN Reason: Anxiety Stop: 05/20/17 17:14 Last Admin: 05/13/17 18:34 Dose: 0.5 mg Aspirin (Aspirin Chewable) 81 mg PO DAILY [facility] Atorvastatin Calcium (Lipitor) 20 mg PO DAILY [facility] Donepezil HCl (Aricept) 10 mg PO HS [facility] Last Admin: 05/13/17 21:20 Dose: 10 mg Ferrous Gluconate (Fergon) 324 mg PO TID [facility] Last Admin: 05/13/17 18:37 Dose: 324 mg Furosemide (Lasix) 20 mg IVP DAILY [facility] Last Admin: 05/13/17 18:37 Dose: Not Given Sodium Chloride (Sodium Chloride 0.45%) 1,000 mls @ 30 mls/hr IV .Q24H [facility] Last Admin: 05/13/17 18:40 Dose: Not Given Ketorolac Tromethamine (Toradol) 30 mg IVP Q8 PRN PRN Reason: Pain, moderate (4-7) Metoprolol Tartrate (Lopressor) 12.5 mg PO BID [facility] Last Admin: 05/13/17 18:34 Dose: 12.5 mg Pantoprazole Sodium (Protonix Ec Tab) 40 mg PO 0600 [facility] Physical Exam - Constitutional Appears: Non-toxic, No Acute Distress - Head Exam Head Exam: ATRAUMATIC, NORMOCEPHALIC - Eye Exam Eye Exam: EOMI - ENT Exam ENT Exam: Mucous Membranes Moist - Respiratory Exam Respiratory Exam: NORMAL BREATHING PATTERN. absent: Accessory Muscle Use, Respiratory Distress - Cardiovascular Exam Cardiovascular Exam: REGULAR RHYTHM - GI/Abdominal Exam GI & Abdominal Exam: Soft. absent: Distended, Tenderness - Extremities Exam Extremities exam: Negative for: calf tenderness, pedal edema - Neurological Exam Neurological exam: Alert, Oriented x3 - Psychiatric Exam Psychiatric exam: Normal Affect, Normal Mood - Skin Skin Exam: Dry, Normal Color, Warm Results - Vital Signs Recent Vital Signs: Last Vital Signs Temp 97.8 F 05/13/17 18:48 Pulse 110 H 05/13/17 18:48 Resp 16 05/13/17 18:48 BP 100/69 05/13/17 21:25 Pulse Ox 100 05/13/17 13:12 - Labs Result Diagrams: 05/13/17 11:33 05/13/17 11:33 Labs: Laboratory Results - last 24 hr 05/13/17 05/13/17 18:18 18:18 PT 206.6 H INR 17.10 H* Troponin I 0.05 Assessment & Plan - Assessment and Plan (Free Text) Assessment: 81F w. poor peripheral access Plan: -Multiple unsuccessful attempts at U/S guided PIV placement in B/L UE -Lower extremities assessed, no adequate veins found -Pt had dressings in place on neck from prior attempts at EJ -will not attempt CVC given INR of 17 -Recommend PICC placement tomorrow -d/w attending Gaudencio PGY3
--- NOTE | 2017-05-14 02:32 | HP ---
HISTORY OF PRESENT ILLNESS: I saw Sarah at [facility]. I was called because she is in for an elevated INR of 15, supratherapeutic. She is an 81-year-old female that was taking her medicines too much. She has a history of AFib, CHF, COPD, dementia, renal insufficiency. She has some shortness of breath. PAST MEDICAL HISTORY: She has a recent pacemaker insertion. She has CHF history, right-sided pacemaker, dementia, she wears glasses, renal disorder, anemia history, arthritis, reflux, anxiety, pacemaker placement. FAMILY HISTORY: Hypertension in the family. SOCIAL HISTORY: Never smoked. No alcohol. No drugs. She is an 81-year-old female. ALLERGIES: NO KNOWN DRUG ALLERGIES. MEDICATIONS: She is on Xanax, warfarin, Lasix, vitamins, tramadol, Aricept, aspirin, iron, atorvastatin, metoprolol, pantoprazole. REVIEW OF SYSTEMS: No acute vision or hearing changes. She is pleasant. No headaches. No sore throat. No chest pain or palpitations at this time. No shortness of breath or cough. No abdominal pain, diarrhea, nausea, vomiting, constipation. No skin ulcers or rashes. No headache or dizziness. No anxiety at this time. PHYSICAL EXAMINATION: VITAL SIGNS: She has a 97.9 temp, 110 pulse, 16 respiratory rate, 102/64 blood pressure, 100% O2 sat. GENERAL: She is comfortable, well appearing, alert and smiling. HEENT: Her head is atraumatic, normocephalic. Extraocular muscles are intact. Pupils equal, reactive to light and accommodation. Throat is moist. NECK: Supple. HEART: Irregular rate. LUNGS: Decreased breath sounds. Clear to auscultation. ABDOMEN: Soft, nontender. Positive bowel sounds. No guarding. No rebound. No CVA tenderness. EXTREMITIES: Have no edema. SKIN: Warm and dry. No apparent rashes or ulcers. Thyroid midline. No palpable appreciable lymphadenopathy. LABORATORY DATA: EKG showed right bundle-branch block, LVH. Chest x-ray showed no acute findings. She has a 7.4 white count, 8.1 hemoglobin, 27.1 hematocrit with 272 platelets. I will put her back on her iron. Sodium is 143, potassium is 5, chloride is 114, BUN 98, creatinine 1.8. I will put her on some IV fluids. GFR is 27, random sugar is 93, calcium is 9.6, magnesium is high at 2.3, total bili is 0.2, AST is 29, ALT is 26, alk phos is 61, lactate dehydrogenase is 683, total creatine kinase 69. Troponin I is indeterminate at 0.05. BNP is 2900. She had some issues with a 15.01 INR. IMPRESSION: She was given vitamin K. She is having very bad IV access. I called in Surgery after about 7 or 8 stick. We will try and get IV access. If we cannot do it, see if they can put a central line in. Also, I will put an order for a peripherally inserted central catheter line, central line, any kind of line. We are going to recheck a stat troponin and a stat INR now. She was given vitamin K 5 one time dose. She is going to need more than that. We will also check her labs tomorrow. She is here for supratherapeutic INR, renal insufficiency, post congestive heart failure. Marco Farris DO
[2017-05-14] MEDS ORDERED: Naloxone 0.4 mg/ml Inj (Adult) ONE ×2 (03:20→03:29)
[2017-05-14 03:49] LABS: ARTERIAL BLOOD GAS HCO3 16.4 mmol/L (21-28); ARTERIAL BLOOD GAS HEMOGLOBIN 6.5 g/dL (11.7-17.4); ARTERIAL BLOOD GAS O2 CAPACITY 9.4 mL/dl (16-24); ARTERIAL BLOOD GAS O2 CONTENT 9.4 ML/dl (15-23); ARTERIAL BLOOD GAS O2 SAT 99.6 % (95-98); ARTERIAL BLOOD GAS PCO2 35 mm/Hg (35-45); ARTERIAL BLOOD GAS PH 7.28 (7.35-7.45); ARTERIAL BLOOD GAS TCO2 17.5 mmol.L (22-28)
[2017-05-14 03:52] LABS: MEAN CORPUSCULAR HEMOGLOBIN 25.4 pg (25.0-35.0); MEAN CORPUSCULAR HGB CONC 30.2 g/dl (31.0-37.0); MEAN PLATELET VOLUME 9.6 fl (7.0-11.0); RBC 2.44 10^6/uL (3.5-6.1); RED CELL DISTRIBUTION WIDTH 24.8 % (11.5-14.5); WHITE BLOOD COUNT 8.3 10^3/ul (4.5-11.0)
[2017-05-14 03:58] LABS: HEMOGLOBIN 6.2 g/dL (12.0-16.0)
[2017-05-14 04:03] LABS: ARTERIAL BLOOD GAS O2 SAT 98.9 % (95-98); ARTERIAL BLOOD GAS PCO2 34 mm/Hg (35-45); ARTERIAL BLOOD GAS PH 7.28 (7.35-7.45)
[2017-05-14 04:11] LABS: RBC 2.22 10^6/uL (3.5-6.1); WHITE BLOOD COUNT 7.1 10^3/ul (4.5-11.0)
[2017-05-14 04:13] LABS: HEMOGLOBIN 5.6 g/dL (12.0-16.0); MEAN CELL VOLUME 82.9 fl (80.0-105.0); MEAN CORPUSCULAR HEMOGLOBIN 25.2 pg (25.0-35.0); MEAN CORPUSCULAR HGB CONC 30.4 g/dl (31.0-37.0); MEAN PLATELET VOLUME 9.9 fl (7.0-11.0); RED CELL DISTRIBUTION WIDTH 24.8 % (11.5-14.5)
[2017-05-14 04:25] LABS: PROTHROMBIN TIME 162.3 SECONDS (9.4-12.5)
[2017-05-14 04:27] LABS: INR 13.5 (0.93-1.08)
--- NOTE | 2017-05-14 04:27 | PCM.RRT ---
<Nighat Flores - Last Filed: 05/14/17 04:32> COST CONTROL SPECIALIST Nurse Assessment - Situation Date: 05/14/17 Time COST CONTROL SPECIALIST was called: 03:06 COST CONTROL SPECIALIST Responder Arrival Time: 03:10 COST CONTROL SPECIALIST Location:: [address] [place] [address] Room Number: [id number] COST CONTROL SPECIALIST Reason for Call: Hypotension COST CONTROL SPECIALIST Called By: RN - IV IV Inserted during COST CONTROL SPECIALIST?: No - Respiratory Oxygen Delivery Method: Nasal Cannula @L/min Oxygen Flow Rate: 2 Received Nebulizer Treatments:: No Was the Patient Ventilated with Bag/Mask 100% O2?: No Secretions Suctioned?: No Was the Patient Intubated?: No Was the Patient Placed on a Ventilator?: No - Medication Medications Administered During COST CONTROL SPECIALIST: 2 dose of Narcan 0.4mg. 1 Bolus of 0.9 NS - Diagnostic Test Ordered EKG: Yes CT Scan: Yes - Stat Labs Ordered COST CONTROL SPECIALIST Stat Labs Ordered: CBC, BMP, PT/PTT, TROPONIN, LACTIC ACID, ABG CPR started during COST CONTROL SPECIALIST?: No - Vital Signs Vital Sign: Rapid Response Vital Sign Blood Pressure 84/44 Pulse Rate 127 - Finger Stick Blood Glucose Finger Stick Blood Glucose: 109 - Sepsis Screen Part 1 Sepsis Screen Part 1: Hypotensive - Time COST CONTROL SPECIALIST Ended Time COST CONTROL SPECIALIST Ended: 04:15 - Vital Signs at end of COST CONTROL SPECIALIST Vital Signs at end of COST CONTROL SPECIALIST: Rapid Response End Vital Sign Blood Pressure 102/59 Pulse Rate 121 O2 Sat by Pulse Oximetry 100 - Recommendations Notifications: Attending Physician, Consultations, Family or Designated Caregiver I.Reason for COST CONTROL SPECIALIST - A) Acute Change in Patient: (Select all that apply): Acute change in SBP below - Respiratory Oxygen Delivery Method: Nasal Cannula @L/min Oxygen Flow Rate: 2 - Constitutional Appears: Toxic, Older Than Stated Age, Confused - Head Head Exam: ATRAUMATIC, NORMOCEPHALIC - Eyes Eye Exam: EOMI, PERRL. absent: Conjunctival injection, Nystagmus, Scleral icterus - Respiratory Exam Respiratory Exam: Clear to Ausculation Bilateral, NORMAL BREATHING PATTERN. absent: Accessory Muscle Use, Chest Wall Tenderness, Decreased Breath Sounds, Rales, Rhonchi, Wheezes, Respiratory Distress, Stridor - Cardiovascular Exam Cardiovascular Exam: Tachycardia. absent: Murmur - GI/Abdominal Exam GI & Abdominal Exam: Soft, Normal Bowel Sounds. absent: Distended, Rigid, Tenderness, Mass, Organomegaly, Rebound - Neurological Exam Neurological Exam: Altered - Extremities Exam Extremities Exam: Normal Capillary Refill, Normal Inspection. absent: Calf Tenderness, Pedal Edema, Tenderness Plan - Assessment of Findings&Treatment Plan This is a 81 y/o F with PMH afib on coumadin, chf with EF 87% (03/2017), copd, dementia, renal insufficiency, presenting to [facility] ED this morning with shortness of breath x 3 days, admitted for supratherapuetic INR 15. COST CONTROL SPECIALIST was called this morning for low BP 82/44. Pt mildly lethargic but responsive, had no peripheral IV access. Pt diaphoretic, verbalized pain at left flank side. Denies cp, sob, cough, abdominal pain, urinary symptoms, leg swelling, jamie bleeding, hematemesis, hemtochezia/melena. - CBC, CMP, troponin, PT/PTT, BNP, ABG with shock panel - CXR, EKG - CT head, chest, abdomen, pelvis Peripheral IV access obtained in the foot (after multiple attempts in upper extremities and EJ), given 1L NS bolus. 2 doses of Narcan administered. After fluid resuscitation, BP improved 105/66. Hgb 5.6 (AM hgb 8.1), ABG shows metabolic acidosis. Pt type and cross matched, will be given 2 units prbcs. - Communicated the findings to Dr Farris, [place]. - ICU consult placed, communicated case with Dr Pederson. - Follow up results. Dr Bolanos at bedside. <Gloria Bolanos - Last Filed: 05/14/17 05:52> COST CONTROL SPECIALIST Nurse Assessment - Vital Signs Vital Sign: Rapid Response Vital Sign Blood Pressure 84/44 Pulse Rate 127 - Vital Signs at end of COST CONTROL SPECIALIST Vital Signs at end of COST CONTROL SPECIALIST: Rapid Response End Vital Sign Blood Pressure 102/59 Pulse Rate 121 O2 Sat by Pulse Oximetry 100
[2017-05-14 04:38] LABS: VENOUS BLOOD GAS BASE EXCESS -8.1 mmol/L (0.0-2.0); VENOUS BLOOD GAS PO2 240 mm/Hg (30-55); VENOUS BLOOD PH 7.32 (7.32-7.43)
[2017-05-14 04:42] LABS: ALB/GLOB RATIO 0.8 (1.1-1.8); ALBUMIN 2.5 g/dL (3.0-4.8); CALCIUM 8.3 mg/dL (8.4-10.5); TROPONIN I 0.05 ng/mL
[2017-05-14 04:47] LABS: URINE BILIRUBIN NEGATIVE (NEGATIVE); URINE BLOOD MODERATE (NEGATIVE); URINE GLUCOSE (UA) NEGATIVE (NEGATIVE); URINE LEUKOCYTE ESTERASE TRACE Leu/uL (NEGATIVE); URINE PROTEIN NEGATIVE mg/dL (<30 mg/dL); URINE UROBILINOGEN 0.2 E.U./dL (<1 E.U./dL)
--- NOTE | 2017-05-14 04:56 | CT ---
EXAM: CT Head Without Intravenous Contrast CLINICAL HISTORY: 81 years old, female; Screening exam; Additional info: [employer] TECHNIQUE: Axial computed tomography images of the head/brain without intravenous contrast. All CT scans at this facility use one or more dose reduction techniques, viz.: automated exposure control; ma/kV adjustment per patient size (including targeted exams where dose is matched to indication; i.e. head); or iterative reconstruction technique. 350 images are submitted. Coronal and sagittal reformatted images were created and reviewed. Axial reformatted images were created and reviewed. COMPARISON: CT - HEAD W/O CONTRAST 2017-03-20 06:30 FINDINGS: Brain: Cerebral and cerebellar volume loss. Patchy hypodensity is seen in the periventricular and subcortical white matter. 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 Bilateral basal ganglia calcifications. No hemorrhage. Ventricles: Unremarkable. No ventriculomegaly. Bones/joints: Unremarkable. No acute fracture. Soft tissues: Unremarkable. Vasculature: Vascular calcifications. Sinuses: Right maxillary and left mid ethmoid air cell mucous retention cyst and/or polyp. Mastoid air cells: Unremarkable. No mastoid effusion. Dental: Edentulous maxilla. Mandibular partial denture in place. IMPRESSION: No evidence of an acute intracranial hemorrhage, midline shift or mass effect is identified.
[2017-05-14 05:09] LABS: URINE APPEARANCE CLEAR (CLEAR); URINE COLOR YELLOW (YELLOW)
[2017-05-14 05:20] LABS: URINE EPITHELIAL CELLS 0 - 2 /hpf (0-5); URINE RBC 0 - 2 /hpf (0-2); URINE WBC 0 - 2 /hpf (0-6)
--- NOTE | 2017-05-14 05:31 | CP.PCM.CON ---
<Stan Palacios - Last Filed: 05/14/17 06:35> History of Present Illness - History of Present Illness History of Present Illness: ICU Consult note HPI: Patient is an 81 year old female with past medical history of atrial fibrillation, CHF, COPD, dementia, renal insufficiency who presented to [facility] on with complaints of shortness of breath and later found to have supratheraputic INR due to patient taking higher than prescribed doses of her anticoagulation medications. During before school babysitter of 05/14/2017 BINDERY CHIEF was called for patient being hypotensive with BP of 84/64 and without IV access. Peripheral IV access x2 in her feet was established by house physician, 1 Liter of normal saline were given with appropriate response in her blood pressure. Labs were drawn indicating a drop in her hemoglobin from 8.1 on admission to 5.6 and hematocrit from 27.1 to 18.4. Head, chest, abdomen, pelvis CT were preformed. Preliminary reading indicates Head CT to be negative for acute hemorrhage. Abdomen and pelvis PMH: Afib, CHF, COPD, Dementia, Renal insufficiency, Renal CA PSH: Pacemaker SOcHx: Denies Tobacco, ETOH, ID All: NKDA Meds: MAR reviewed PMD: Dr. Farris Review of Systems - Constitutional Constitutional: absent: Chills, Fever, Headache, Weakness - EENT Eyes: absent: Blurred Vision, Change in Vision Ears: absent: Ear Discharge Nose/Mouth/Throat: absent: Epistaxis, Bleeding Gums - Cardiovascular Cardiovascular: absent: Chest Pain, Dyspnea, Edema - Respiratory Respiratory: absent: Cough, Dyspnea, Hemoptysis - Gastrointestinal Gastrointestinal: absent: Abdominal Pain, Coffee Ground Emesis, Diarrhea, Hematochezia - Genitourinary Genitourinary: Hematuria. absent: Dysuria - Musculoskeletal Additional comments: Right sided rib pain - Integumentary Integumentary: absent: Bleeding Lesions - Neurological Neurological: Dizziness. absent: Focal Weakness, Syncope, Weakness - Psychiatric Psychiatric: absent: Anxiety, Depression Past Patient History - Infectious Disease Hx of Infectious Diseases: None - Tetanus Immunizations Tetanus Immunization: >10 years Ago - Past Medical History & Family History Past Medical History?: Yes - Past Social History Smoking Status: Former Smoker Alcohol: None Drugs: Denies - CARDIAC Hx Cardiac Disorders: Yes Hx Cardia Arrhythmia: Yes (AFIB) Hx Congestive Heart Failure: Yes Hx Hypertension: Yes Other/Comment: + R sided pacemaker - PULMONARY Hx Respiratory Disorders: Yes (USED TO SMOKE 6 CIG A DAY) - NEUROLOGICAL Hx Neurological Disorder: Yes Hx Dementia: Yes Hx Dizziness: Yes (SYNCOPE) - HEENT Hx HEENT Problems: Yes (glasses) - RENAL Hx Chronic Kidney Disease: Yes - ENDOCRINE/METABOLIC Hx Endocrine Disorders: No - HEMATOLOGICAL/ONCOLOGICAL Hx Blood Disorders: Yes Hx Anemia: Yes - INTEGUMENTARY Hx Dermatological Problems: No - MUSCULOSKELETAL/RHEUMATOLOGICAL Hx Musculoskeletal Disorders: Yes Hx Arthritis: Yes Hx Falls: Yes Hx Unsteady Gait: Yes (CANE) - GASTROINTESTINAL Hx Gastrointestinal Disorders: Yes Hx Gastroesophageal Reflux: Yes - GENITOURINARY/GYNECOLOGICAL Hx Genitourinary Disorders: No - PSYCHIATRIC Hx Psychophysiologic Disorder: Yes Hx Anxiety: Yes Hx Substance Use: No - SURGICAL HISTORY Hx Surgeries: Yes Other/Comment: Pacemaker placement - ANESTHESIA Hx Anesthesia: Yes Hx Anesthesia Reactions: No Hx Malignant Hyperthermia: No Meds Allergies/Adverse Reactions: Allergies Allergy/AdvReac Type Severity Reaction Status Date / Time No Known Allergies Allergy Verified 05/13/17 15:40 - Medications Medications: Current Medications Alprazolam (Xanax) 0.5 mg PO BID PRN; Protocol PRN Reason: Anxiety Stop: 05/20/17 17:14 Last Admin: 05/13/17 18:34 Dose: 0.5 mg Aspirin (Aspirin Chewable) 81 mg PO DAILY [facility] Atorvastatin Calcium (Lipitor) 20 mg PO DAILY [facility] Donepezil HCl (Aricept) 10 mg PO HS [facility] Last Admin: 05/13/17 21:20 Dose: 10 mg Ferrous Gluconate (Fergon) 324 mg PO TID [facility] Last Admin: 05/13/17 18:37 Dose: 324 mg Furosemide (Lasix) 20 mg IVP DAILY [facility] Last Admin: 05/13/17 18:37 Dose: Not Given Sodium Chloride (Sodium Chloride 0.45%) 1,000 mls @ 30 mls/hr IV .Q24H [facility] Last Admin: 05/13/17 18:40 Dose: Not Given Ibuprofen (Motrin Tab) 400 mg PO Q8H PRN PRN Reason: Pain, Mild (1-3) Last Admin: 05/13/17 23:00 Dose: 400 mg Ketorolac Tromethamine (Toradol) 30 mg IVP Q8 PRN PRN Reason: Pain, moderate (4-7) Metoprolol Tartrate (Lopressor) 12.5 mg PO BID [facility] Last Admin: 05/13/17 18:34 Dose: 12.5 mg Pantoprazole Sodium (Protonix Ec Tab) 40 mg PO 0600 [facility] Physical Exam - Constitutional Appears: Non-toxic - Head Exam Head Exam: ATRAUMATIC, NORMAL INSPECTION, NORMOCEPHALIC - Eye Exam Eye Exam: EOMI, PERRL - ENT Exam ENT Exam: Mucous Membranes Moist - Respiratory Exam Respiratory Exam: Clear to Auscultation Bilateral, NORMAL BREATHING PATTERN. absent: Rales, Rhonchi, Wheezes - Cardiovascular Exam Cardiovascular Exam: REGULAR RHYTHM, +S1, +S2 - GI/Abdominal Exam GI & Abdominal Exam: Normal Bowel Sounds, Soft. absent: Guarding, Rigid, Tenderness - Extremities Exam Extremities exam: Positive for: normal inspection, pedal pulses present. Negative for: calf tenderness - Back Exam Back exam: NORMAL INSPECTION - Neurological Exam Neurological exam: Alert, Oriented x3 - Psychiatric Exam Psychiatric exam: Normal Affect, Normal Mood - Skin Skin Exam: Dry, Normal Color Results - Vital Signs Recent Vital Signs: Last Vital Signs Temp 97.8 F 05/13/17 18:48 Pulse 113 H 05/13/17 22:00 Resp 16 05/13/17 18:48 BP 100/69 05/13/17 21:25 Pulse Ox 100 05/13/17 13:12 - Labs Result Diagrams: 05/14/17 04:00 05/14/17 04:00 Labs: Laboratory Results - last 24 hr 05/13/17 05/13/17 05/14/17 18:18 18:18 03:40 WBC 8.3 RBC 2.44 L Hgb 6.2 L* Hct 20.5 L* MCV 84.0 MCH 25.4 MCHC 30.2 L RDW 24.8 H Plt Count 213 MPV 9.6 PT 206.6 H INR 17.10 H* APTT pCO2 pO2 HCO3 ABG pH ABG Total CO2 ABG O2 Saturation ABG O2 Content ABG Base Excess ABG Hemoglobin ABG Carboxyhemoglobin POC ABG HHb (Measured) ABG Methemoglobin ABG O2 Capacity ABG Potassium VBG pH VBG pCO2 VBG HCO3 VBG Total CO2 VBG O2 Sat (Calc) VBG Base Excess VBG Potassium Hgb O2 Saturation Sodium Chloride Glucose Lactate FiO2 Potassium Carbon Dioxide Anion Gap BUN Creatinine Est GFR ( Amer) Est GFR (Non-Af Amer) Random Glucose Calcium Phosphorus Magnesium Total Bilirubin AST ALT Alkaline Phosphatase Troponin I 0.05 Total Protein Albumin Globulin Albumin/Globulin Ratio Arterial Blood Potassium Venous Blood Potassium Urine Color Urine Appearance Urine pH Ur Specific [place] Urine Protein Urine Glucose (UA) Urine Ketones Urine Blood Urine Nitrate Urine Bilirubin Urine Urobilinogen Ur Leukocyte Esterase Urine RBC Urine WBC Ur Epithelial Cells Crossmatch BBK History Checked 05/14/17 05/14/17 05/14/17 03:40 04:00 04:00 WBC RBC Hgb Hct MCV MCH MCHC RDW Plt Count MPV PT 162.3 H INR 13.50 H* APTT 67.0 H pCO2 35 pO2 176.0 H HCO3 16.4 L ABG pH 7.28 L ABG Total CO2 17.5 L ABG O2 Saturation 99.6 H ABG O2 Content 9.4 L ABG Base Excess -9.5 L ABG Hemoglobin 6.5 L ABG Carboxyhemoglobin 1.7 H POC ABG HHb (Measured) 0.4 ABG Methemoglobin 0.1 ABG O2 Capacity 9.4 L ABG Potassium VBG pH VBG pCO2 VBG HCO3 VBG Total CO2 VBG O2 Sat (Calc) VBG Base Excess VBG Potassium Hgb O2 Saturation 97.8 Sodium 141 Chloride 118 H Glucose Lactate FiO2 32.0 Potassium 4.8 Carbon Dioxide 16 L Anion Gap 12 BUN 98 H Creatinine 1.7 H Est GFR ( Amer) 35 Est GFR (Non-Af Amer) 29 Random Glucose 108 Calcium 8.3 L Phosphorus 3.9 Magnesium 2.0 Total Bilirubin 0.1 L AST 23 ALT 26 Alkaline Phosphatase 42 Troponin I 0.05 Total Protein 5.4 L Albumin 2.5 L Globulin 2.9 Albumin/Globulin Ratio 0.8 L Arterial Blood Potassium Venous Blood Potassium Urine Color Urine Appearance Urine pH Ur Specific [place] Urine Protein Urine Glucose (UA) Urine Ketones Urine Blood Urine Nitrate Urine Bilirubin Urine Urobilinogen Ur Leukocyte Esterase Urine RBC Urine WBC Ur Epithelial Cells Crossmatch BBK History Checked 05/14/17 05/14/17 05/14/17 04:00 04:00 04:00 WBC 7.1 RBC 2.22 L Hgb 5.6 L* Hct 18.4 L* MCV 82.9 MCH 25.2 MCHC 30.4 L RDW 24.8 H Plt Count 226 MPV 9.9 PT INR APTT pCO2 34 L pO2 187.0 H 240 H HCO3 16.0 L ABG pH 7.28 L ABG Total CO2 17.0 L ABG O2 Saturation 98.9 H ABG O2 Content ABG Base Excess -9.8 L ABG Hemoglobin ABG Carboxyhemoglobin POC ABG HHb (Measured) ABG Methemoglobin ABG O2 Capacity ABG Potassium 4.7 VBG pH 7.32 VBG pCO2 33.0 L VBG HCO3 17.0 L VBG Total CO2 18.0 L VBG O2 Sat (Calc) 100.0 H VBG Base Excess -8.1 L VBG Potassium 4.9 Hgb O2 Saturation Sodium 140.0 140.0 Chloride 120.0 H 118.0 H Glucose 102 107 H Lactate 0.5 L 0.6 L FiO2 32.0 21.0 Potassium Carbon Dioxide Anion Gap BUN Creatinine Est GFR ( Amer) Est GFR (Non-Af Amer) Random Glucose Calcium Phosphorus Magnesium Total Bilirubin AST ALT Alkaline Phosphatase Troponin I Total Protein Albumin Globulin Albumin/Globulin Ratio Arterial Blood Potassium 4.7 Venous Blood Potassium 4.9 Urine Color Urine Appearance Urine pH Ur Specific [place] Urine Protein Urine Glucose (UA) Urine Ketones Urine Blood Urine Nitrate Urine Bilirubin Urine Urobilinogen Ur Leukocyte Esterase Urine RBC Urine WBC Ur Epithelial Cells Crossmatch BBK History Checked 05/14/17 05/14/17 04:00 04:41 WBC RBC Hgb Hct MCV MCH MCHC RDW Plt Count MPV PT INR APTT pCO2 pO2 HCO3 ABG pH ABG Total CO2 ABG O2 Saturation ABG O2 Content ABG Base Excess ABG Hemoglobin ABG Carboxyhemoglobin POC ABG HHb (Measured) ABG Methemoglobin ABG O2 Capacity ABG Potassium VBG pH VBG pCO2 VBG HCO3 VBG Total CO2 VBG O2 Sat (Calc) VBG Base Excess VBG Potassium Hgb O2 Saturation Sodium Chloride Glucose Lactate FiO2 Potassium Carbon Dioxide Anion Gap BUN Creatinine Est GFR ( Amer) Est GFR (Non-Af Amer) Random Glucose Calcium Phosphorus Magnesium Total Bilirubin AST ALT Alkaline Phosphatase Troponin I Total Protein Albumin Globulin Albumin/Globulin Ratio Arterial Blood Potassium Venous Blood Potassium Urine Color Yellow Urine Appearance Clear Urine pH 6.0 Ur Specific [place] 1.010 Urine Protein Negative Urine Glucose (UA) Negative Urine Ketones Negative Urine Blood Moderate H Urine Nitrate Negative Urine Bilirubin Negative Urine Urobilinogen 0.2 Ur Leukocyte Esterase Trace H Urine RBC 0 - 2 Urine WBC 0 - 2 Ur Epithelial Cells 0 - 2 Crossmatch See Detail BBK History Checked Patient has bt Assessment & Plan - Assessment and Plan (Free Text) Assessment: 81 year old female with past medical history of atrial fibrillation, CHF, COPD, dementia, renal insufficiency who originally presented to [facility] with shortness of breath, later found to have supratheraputic INR and anemia. During AM of 05/14/17 a BINDERY CHIEF was called for patient due to hypotension likely secondary to hypovolemic shock and poor peripheral IV access. Patient evaluated and labs showed drop of Hemoglobin from 8.1 on admission to 5.6 on repeat labs. Peripheral IV access was established and patient BP was responsive to 1 liter IV NS. Patient planned to have 2 units pRBC, FFP transfused with monitoring of H/H. Patient is to be admitted to ICU for further monitoring and observation. Plan: Neuro AAO3 Stable - Head CT negative for acute hemmorhage - hx of dementia at baseline Pulm - Stable - NC 2L with goal SaO2 >90%, COPD Cardio Hypotension - Likely secondary to hypovolemic state, anemia - 1 liter given IVF, BP responds to SBP 105 - continue to monitor - Maintain MAP >65 - Holding metoprolol - Recent Echo showing EF 84%, severe MR, pulmonary hypertension GI - Elevated BUN, suspicious for GI bleed - protonix gtt - hemoglobin of 8.1 drop to 5.6 - monitor H/H Q6H - CT chest/abdomen/pelvis: thickening of the gallbladder wall, no acute hemmorhage - f/u FOBT Renal - Avoid nephrotoxic medicaiton - monitor I/O - daily weights - replete electrolytes as needed Heme Supratheraputic INR - Likely secondary patient taking more than prescribed doses of warfarin - Vitamin K - 2 units of FFP Anemia - Transfuse 2 units pRBC - monitor H/H Q6H ID: Possibly UTI- elevated Leuk Est, No leukocytosis, afebrile Consider antibioitcs GI/DVT ppx - Supratheraputic INR - Protonix gtt Case and plan discussed with attending - Date & Time Date: 05/14/17 Time: 06:36 <Virgilio Pederson Q - Last Filed: 05/15/17 19:48> Meds - Medications Medications: Current Medications Alprazolam (Xanax) 0.5 mg PO BID PRN; Protocol PRN Reason: Anxiety Stop: 05/20/17 17:14 Last Admin: 05/15/17 13:50 Dose: 0.5 mg Atorvastatin Calcium (Lipitor) 20 mg PO DAILY [facility] Last Admin: 05/15/17 10:39 Dose: 20 mg Diltiazem HCl (Cardizem) 60 mg PO TID [facility] Last Admin: 05/15/17 17:15 Dose: Not Given Donepezil HCl (Aricept) 10 mg PO HS [facility] Last Admin: 05/14/17 22:45 Dose: 10 mg Enoxaparin Sodium (Lovenox) 30 mg SC DAILY [facility] PRN Reason: Protocol Ferrous Gluconate (Fergon) 324 mg PO TID [facility] Last Admin: 05/15/17 17:16 Dose: 324 mg Furosemide (Lasix) 20 mg IVP DAILY [facility] Last Admin: 05/13/17 18:37 Dose: Not Given Sodium Chloride (Sodium Chloride 0.9%) 1,000 mls @ 60 mls/hr IV .[id number] [facility] Last Admin: 05/15/17 10:42 Dose: 60 mls/hr Acetaminophen (Ofirmev) 1,000 mg in 100 mls @ 400 mls/hr IVPB Q6H PRN PRN Reason: Pain, moderate (4-7) Stop: 05/16/17 17:36 Last Admin: 05/14/17 17:46 Dose: 400 mls/hr Metoprolol Tartrate (Lopressor) 12.5 mg PO BID [facility] Last Admin: 05/15/17 17:17 Dose: 12.5 mg Oxycodone/Acetaminophen (Percocet 2.5/325 Mg Tab) 1 tab PO Q4H PRN PRN Reason: Pain, moderate (4-7) Last Admin: 05/15/17 17:17 Dose: 1 tab Pantoprazole Sodium (Protonix Inj) 40 mg IVP Q12 [facility] Last Admin: 05/15/17 10:42 Dose: 40 mg Sodium Bicarbonate (Sodium Bicarbonate Tab) 1,300 mg PO BID [facility] Last Admin: 05/15/17 17:15 Dose: 1,300 mg Vitamin B Complex/Vit C/Folic Acid (Nephro-Haider) 1 tab PO 0800 [facility] Last Admin: 05/15/17 10:39 Dose: 1 tab Results - Vital Signs Recent Vital Signs: Last Vital Signs Temp 98.4 F 05/15/17 17:34 Pulse 64 05/15/17 17:34 Resp 16 05/15/17 17:34 BP 99/57 L 05/15/17 17:34 Pulse Ox 100 05/15/17 17:00 - Labs Result Diagrams: 05/15/17 05:30 05/15/17 05:30 Labs: Laboratory Results - last 24 hr 05/14/17 05/14/17 05/15/17 15:35 22:28 05:30 WBC 7.2 RBC 2.78 L Hgb 7.6 L Hct 23.3 L MCV 83.8 MCH 27.3 MCHC 32.6 RDW 20.0 H Plt Count 159 MPV 9.3 Gran % 69.2 H Lymph % (Auto) 19.5 L Hughes % (Auto) 9.1 H Eos % (Auto) 1.9 Baso % (Auto) 0.3 Gran # 4.99 Lymph # (Auto) 1.4 Hughes # (Auto) 0.7 H Eos # (Auto) 0.1 Baso # (Auto) 0.02 Haptoglobin 80 Sodium 143 Potassium 4.3 Chloride 110 H Carbon Dioxide 28 Anion Gap 9 L BUN 81 H Creatinine 1.6 H Est GFR ( Amer) 37 Est GFR (Non-Af Amer) 31 Random Glucose 105 Calcium 9.3 Phosphorus 3.9 Magnesium 2.0 Total Bilirubin 0.6 AST 25 ALT 26 Alkaline Phosphatase 51 Total Protein 5.7 L Albumin 2.8 L Globulin 2.9 Albumin/Globulin Ratio 1.0 L 05/15/17 05:30 WBC 6.2 RBC 2.79 L Hgb 7.6 L Hct 23.7 L MCV 84.9 MCH 27.2 MCHC 32.1 RDW 20.2 H Plt Count 155 MPV 9.5 Gran % Lymph % (Auto) Hughes % (Auto) Eos % (Auto) Baso % (Auto) Gran # Lymph # (Auto) Hughes # (Auto) Eos # (Auto) Baso # (Auto) Haptoglobin Sodium Potassium Chloride Carbon Dioxide Anion Gap BUN Creatinine Est GFR ( Amer) Est GFR (Non-Af Amer) Random Glucose Calcium Phosphorus Magnesium Total Bilirubin AST ALT Alkaline Phosphatase Total Protein Albumin Globulin Albumin/Globulin Ratio Attending/Attestation - Attestation I have personally seen and examined this patient.: Yes I have fully participated in the care of the patient.: Yes I have reviewed all pertinent clinical information: Yes
[2017-05-14] MEDS ORDERED: Pantoprazole 40 mg EC Tab PO SCH (06:00)
[2017-05-14] MEDS ORDERED: Phytonadione 10 mg/ml Inj (Adult) SC ONE (06:03)
--- NOTE | 2017-05-14 06:06 | CT ---
EXAM: CT Chest Without Intravenous Contrast CT Abdomen and Pelvis Without Intravenous Contrast CLINICAL HISTORY: 81 years old, female; Screening exam; Other: Rapid response; Other screening; Additional info: Anemia, bleed TECHNIQUE: Axial computed tomography images of the chest, abdomen and pelvis without intravenous contrast. All CT scans at this facility use one or more dose reduction techniques, viz.: automated exposure control; ma/kV adjustment per patient size (including targeted exams where dose is matched to indication; i.e. head); or iterative reconstruction technique. 936 images are submitted.Limitations: Absence of IV contrast decreases sensitivity for detecting vascular and visceral injury and abnormality. Coronal and sagittal reformatted images were created and reviewed. MIP reconstruction images are submitted. uSmit Portillo, rug sample beveler re: Sarah Waller COMPARISON: CT - ABD PELVIS W/O PO OR IV CONT 2016-10-31 00:38 FINDINGS: Artifacts: Limited due to motion and misregistration artifacts.Limited due to pulsation artifact. CHEST: Lungs: Nonspecific biapical pleural-parenchymal changes representing sequela of infectious or inflammatory etiology. Pleural space: Unremarkable. No significant effusion. No pneumothorax. Heart: Cardiomegaly. No significant pericardial effusion. ABDOMEN: Liver: Unremarkable. Gallbladder and bile ducts: Contracted gallbladder with gallstones and gallbladder wall thickening. Pancreas: Unremarkable. No ductal dilation. Spleen: Unremarkable. No splenomegaly. Adrenals: Unremarkable. No mass. Kidneys and ureters: Right nephrectomy. There are renal hypodensities too small to characterize. Stomach and bowel: Diverticulosis. Moderate amount of stool in the colon. Nonspecific colonic wall thickening. Correlation with patient's clinical history of constipation versus stool related colitis versus under distention is recommended. Appendix: No findings to suggest acute appendicitis. PELVIS: Bladder: Partially distended bladder. Reproductive: Hysterectomy. CHEST, ABDOMEN and PELVIS: Intraperitoneal space: Unremarkable. No significant fluid collection. No free air. Bones/joints: Unremarkable. No acute fracture. No dislocation. Soft tissues: There is a fat-containing umbilical hernia. Vasculature: Unremarkable. No aortic aneurysm. Lymph nodes: Unremarkable. No enlarged lymph nodes. Tubes, lines and devices: There are cardiac leads from a cardiac rhythm maintenance device. IMPRESSION: 1. Contracted gallbladder with gallstones and gallbladder wall thickening. 2.No acute abnormality on this noncontrast CT examination of the chest abdomen and pelvis .
[2017-05-14] MEDS ORDERED: Pantoprazole 40mg/100mL NS 40 MG/100 ML BAG IVPB SCH (06:30)
--- NOTE | 2017-05-14 07:17 | CP.CCUPN ---
<Jesse Arthur - Last Filed: 05/14/17 10:37> CCU Subjective - Physician Review Subjective (Free Text): Jesse Arthur PGY1 ICU Note for Dr. Beltran Patient was seen and examined in ICU. she states that she is feeling better than before. she denies any n/v or blood in stools. she is weak and is complaining of L hip pain that she states she has been told was arthritis pain before. she denies any chest pain, shortness of breath, abdominal pain. CCU Objective - Vital Signs / Intake & Output Vital Signs (Last 4 hours): Vital Signs Temp Pulse Resp BP 05/14/17 06:58 98 F 112 H 25 H 106/51 L 05/14/17 06:13 97.4 F L 115 H 18 87/57 L 05/14/17 05:55 79.8 F L 124 H 18 98/64 L Intake and Output (Last 8hrs): Intake & Output 05/13/17 05/14/17 05/14/17 22:59 06:59 14:59 Intake Total 620 Output Total 600 Balance 20 Weight 120 lb Intake: Oral 620 Blood Product 0 Red Blood Cells Cpd As1 0 Lr Unit [id number] Output: Urine 600 Urine, Voided 600 Stool 0 Urine/Stool Mix 0 Other: Voiding Method Toilet # Voids Urine, Voided 1 # Bowel Movements 0 - Physical Exam Head: Positive for: Atraumatic, Normocephalic Pupils: Positive for: Pinpoint Extroacular Muscles: Positive for: EOMI Conjunctiva: Positive for: Other (pale) Mouth: Positive for: Dry Neck: Positive for: Normal Range of Motion Respiratory/Chest: Positive for: Clear to Auscultation, Good Air Exchange, Other (pacemaker site is clean and dry). Negative for: Respiratory Distress, Accessory Muscle Use Cardiovascular: Positive for: Murmurs, Tachycardic. Negative for: Irregular Rhythm Abdomen: Positive for: Normal Bowel Sounds. Negative for: Tenderness, Distention, Peritoneal Signs, Guarding Back: Positive for: Normal Inspection. Negative for: CVA Tenderness Upper Extremity: Positive for: Normal Inspection, Normal ROM. Negative for: Cyanosis, Edema Lower Extremity: Positive for: Normal Inspection, Normal ROM. Negative for: Edema Neurological: Positive for: GCS=15, CN II-XII Intact, Speech Normal, Motor Func Grossly Intact, Normal Sensory Function Skin: Positive for: Warm, Dry Psychiatric: Positive for: Alert, Oriented x 3 - Medications Active Medications: Active Medications Generic Name Dose Route Start Last Admin Trade Name Freq PRN Reason Stop Dose Admin Alprazolam 0.5 mg 05/13/17 17:13 05/13/17 18:34 Xanax PO 05/20/17 17:14 0.5 mg BID PRN Administration Anxiety Protocol Aspirin 81 mg 05/14/17 10:00 Aspirin Chewable PO DAILY [facility] Atorvastatin Calcium 20 mg 05/14/17 10:00 Lipitor PO DAILY [facility] Donepezil HCl 10 mg 05/13/17 22:00 05/13/17 21:20 Aricept PO 10 mg HS [facility] Administration Ferrous Gluconate 324 mg 05/13/17 18:00 05/13/17 18:37 Fergon PO 324 mg TID [facility] Administration Furosemide 20 mg 05/13/17 17:15 05/13/17 18:37 Lasix IVP Not Given DAILY [facility] Sodium Chloride 1,000 mls @ 30 mls/hr 05/13/17 17:15 05/13/17 18:40 Sodium Chloride 0.45% IV Not Given .Q24H [facility] Pantoprazole Sodium 40 mg in 100 mls @ 20 mls/hr 05/14/17 06:30 Protonix 40mg Ivpb IVPB .Q5H [facility] Ibuprofen 400 mg 05/13/17 22:19 05/13/17 23:00 Motrin Tab PO 400 mg Q8H PRN Administration Pain, Mild (1-3) Ketorolac Tromethamine 30 mg 05/13/17 17:41 Toradol IVP Q8 PRN Pain, moderate (4-7) Metoprolol Tartrate 12.5 mg 05/13/17 18:00 05/13/17 18:34 Lopressor PO 12.5 mg BID [facility] Administration Pantoprazole Sodium 40 mg 05/14/17 06:00 05/14/17 06:12 Protonix Ec Tab PO 40 mg 0600 [facility] Administration - Patient Studies Lab Studies: Lab Studies 05/14/17 05/14/17 05/14/17 Range/Units 04:41 04:00 04:00 WBC (4.5-11.0) 10^3/ul RBC (3.5-6.1) 10^6/uL Hgb (12.0-16.0) g/dL Hct (36.0-48.0) % MCV (80.0-105.0) fl MCH (25.0-35.0) pg MCHC (31.0-37.0) g/dl RDW (11.5-14.5) % Plt Count (120.0-450.0) 10^3/uL MPV (7.0-11.0) fl PT (9.4-12.5) SECONDS INR (0.93-1.08) APTT (25.1-36.5) Seconds pCO2 (35-45) mm/Hg pO2 240 H (80-100) mm/Hg HCO3 (21-28) mmol/L ABG pH (7.35-7.45) ABG Total CO2 (22-28) mmol.L ABG O2 Saturation (95-98) % ABG O2 Content (15-23) ML/dl ABG Base Excess (-2.0-3.0) mmol/L ABG Hemoglobin (11.7-17.4) g/dL ABG Carboxyhemoglobin (0.5-1.5) % POC ABG HHb (Measured) (0-5) % ABG Methemoglobin (0.0-3.0) % ABG O2 Capacity (16-24) mL/dl ABG Potassium (3.6-5.2) mmol/L VBG pH 7.32 (7.32-7.43) VBG pCO2 33.0 L (40-60) VBG HCO3 17.0 L (21-28) mmol/l VBG Total CO2 18.0 L (22-28) mmol.L VBG O2 Sat (Calc) 100.0 H (40-65) % VBG Base Excess -8.1 L (0.0-2.0) mmol/L VBG Potassium 4.9 (3.6-5.2) mmol/L Hgb O2 Saturation (95.0-98.0) % Sodium 140.0 (132-148) mmol/L Chloride 118.0 H (98-107) mmol/L Glucose 107 H (65-105) mg/dl Lactate 0.6 L (0.7-2.1) mmol/L FiO2 21.0 % Potassium (3.6-5.0) mmol/L Carbon Dioxide (21-33) mmol/L Anion Gap (10-20) BUN (7-21) mg/dL Creatinine (0.7-1.2) mg/dl Est GFR ( Amer) Est GFR (Non-Af Amer) Random Glucose (70-110) mg/dL Calcium (8.4-10.5) mg/dL Phosphorus (2.5-4.5) mg/dL Magnesium (1.7-2.2) mg/dL Total Bilirubin (0.2-1.3) mg/dL AST (14-36) U/L ALT (7-56) U/L Alkaline Phosphatase (38-126) U/L Troponin I ng/mL Total Protein (5.8-8.3) g/dL Albumin (3.0-4.8) g/dL Globulin gm/dL Albumin/Globulin Ratio (1.1-1.8) Arterial Blood Potassium (3.6-5.2) mmol/L Venous Blood Potassium 4.9 (3.6-5.2) mmol/L Urine Color Yellow (YELLOW) Urine Appearance Clear (CLEAR) Urine pH 6.0 (4.7-8.0) Ur Specific [place] 1.010 (1.005-1.035) Urine Protein Negative (<30 mg/dL) mg/dL Urine Glucose (UA) Negative (NEGATIVE) mg/dL Urine Ketones Negative (NEGATIVE) mg/dL Urine Blood Moderate H (NEGATIVE) Urine Nitrate Negative (NEGATIVE) Urine Bilirubin Negative (NEGATIVE) Urine Urobilinogen 0.2 (<1 E.U./dL) E.U./dL Ur Leukocyte Esterase Trace H (NEGATIVE) Chidi/uL Urine RBC 0 - 2 (0-2) /hpf Urine WBC 0 - 2 (0-6) /hpf Ur Epithelial Cells 0 - 2 (0-5) /hpf Blood Type AB POSITIVE Antibody Screen Negative Crossmatch See Detail BBK History Checked Patient has bt 05/14/17 05/14/17 05/14/17 Range/Units 04:00 04:00 04:00 WBC 7.1 (4.5-11.0) 10^3/ul RBC 2.22 L (3.5-6.1) 10^6/uL Hgb 5.6 L* (12.0-16.0) g/dL Hct 18.4 L* (36.0-48.0) % MCV 82.9 (80.0-105.0) fl MCH 25.2 (25.0-35.0) pg MCHC 30.4 L (31.0-37.0) g/dl RDW 24.8 H (11.5-14.5) % Plt Count 226 (120.0-450.0) 10^3/uL MPV 9.9 (7.0-11.0) fl PT 162.3 H (9.4-12.5) SECONDS INR 13.50 H* (0.93-1.08) APTT 67.0 H (25.1-36.5) Seconds pCO2 34 L (35-45) mm/Hg pO2 187.0 H (80-100) mm/Hg HCO3 16.0 L (21-28) mmol/L ABG pH 7.28 L (7.35-7.45) ABG Total CO2 17.0 L (22-28) mmol.L ABG O2 Saturation 98.9 H (95-98) % ABG O2 Content (15-23) ML/dl ABG Base Excess -9.8 L (-2.0-3.0) mmol/L ABG Hemoglobin (11.7-17.4) g/dL ABG Carboxyhemoglobin (0.5-1.5) % POC ABG HHb (Measured) (0-5) % ABG Methemoglobin (0.0-3.0) % ABG O2 Capacity (16-24) mL/dl ABG Potassium 4.7 (3.6-5.2) mmol/L VBG pH (7.32-7.43) VBG pCO2 (40-60) VBG HCO3 (21-28) mmol/l VBG Total CO2 (22-28) mmol.L VBG O2 Sat (Calc) (40-65) % VBG Base Excess (0.0-2.0) mmol/L VBG Potassium (3.6-5.2) mmol/L Hgb O2 Saturation (95.0-98.0) % Sodium 140.0 (132-148) mmol/L Chloride 120.0 H (98-107) mmol/L Glucose 102 (65-105) mg/dl Lactate 0.5 L (0.7-2.1) mmol/L FiO2 32.0 % Potassium (3.6-5.0) mmol/L Carbon Dioxide (21-33) mmol/L Anion Gap (10-20) BUN (7-21) mg/dL Creatinine (0.7-1.2) mg/dl Est GFR ( Amer) Est GFR (Non-Af Amer) Random Glucose (70-110) mg/dL Calcium (8.4-10.5) mg/dL Phosphorus (2.5-4.5) mg/dL Magnesium (1.7-2.2) mg/dL Total Bilirubin (0.2-1.3) mg/dL AST (14-36) U/L ALT (7-56) U/L Alkaline Phosphatase (38-126) U/L Troponin I ng/mL Total Protein (5.8-8.3) g/dL Albumin (3.0-4.8) g/dL Globulin gm/dL Albumin/Globulin Ratio (1.1-1.8) Arterial Blood Potassium 4.7 (3.6-5.2) mmol/L Venous Blood Potassium (3.6-5.2) mmol/L Urine Color (YELLOW) Urine Appearance (CLEAR) Urine pH (4.7-8.0) Ur Specific [place] (1.005-1.035) Urine Protein (<30 mg/dL) mg/dL Urine Glucose (UA) (NEGATIVE) mg/dL Urine Ketones (NEGATIVE) mg/dL Urine Blood (NEGATIVE) Urine Nitrate (NEGATIVE) Urine Bilirubin (NEGATIVE) Urine Urobilinogen (<1 E.U./dL) E.U./dL Ur Leukocyte Esterase (NEGATIVE) Chidi/uL Urine RBC (0-2) /hpf Urine WBC (0-6) /hpf Ur Epithelial Cells (0-5) /hpf Blood Type Antibody Screen Crossmatch BBK History Checked 05/14/17 05/14/17 05/14/17 Range/Units 04:00 03:40 03:40 WBC 8.3 (4.5-11.0) 10^3/ul RBC 2.44 L (3.5-6.1) 10^6/uL Hgb 6.2 L* (12.0-16.0) g/dL Hct 20.5 L* (36.0-48.0) % MCV 84.0 (80.0-105.0) fl MCH 25.4 (25.0-35.0) pg MCHC 30.2 L (31.0-37.0) g/dl RDW 24.8 H (11.5-14.5) % Plt Count 213 (120.0-450.0) 10^3/uL MPV 9.6 (7.0-11.0) fl PT (9.4-12.5) SECONDS INR (0.93-1.08) APTT (25.1-36.5) Seconds pCO2 35 (35-45) mm/Hg pO2 176.0 H (80-100) mm/Hg HCO3 16.4 L (21-28) mmol/L ABG pH 7.28 L (7.35-7.45) ABG Total CO2 17.5 L (22-28) mmol.L ABG O2 Saturation 99.6 H (95-98) % ABG O2 Content 9.4 L (15-23) ML/dl ABG Base Excess -9.5 L (-2.0-3.0) mmol/L ABG Hemoglobin 6.5 L (11.7-17.4) g/dL ABG Carboxyhemoglobin 1.7 H (0.5-1.5) % POC ABG HHb (Measured) 0.4 (0-5) % ABG Methemoglobin 0.1 (0.0-3.0) % ABG O2 Capacity 9.4 L (16-24) mL/dl ABG Potassium (3.6-5.2) mmol/L VBG pH (7.32-7.43) VBG pCO2 (40-60) VBG HCO3 (21-28) mmol/l VBG Total CO2 (22-28) mmol.L VBG O2 Sat (Calc) (40-65) % VBG Base Excess (0.0-2.0) mmol/L VBG Potassium (3.6-5.2) mmol/L Hgb O2 Saturation 97.8 (95.0-98.0) % Sodium 141 (132-148) mmol/L Chloride 118 H (98-107) mmol/L Glucose (65-105) mg/dl Lactate (0.7-2.1) mmol/L FiO2 32.0 % Potassium 4.8 (3.6-5.0) mmol/L Carbon Dioxide 16 L (21-33) mmol/L Anion Gap 12 (10-20) BUN 98 H (7-21) mg/dL Creatinine 1.7 H (0.7-1.2) mg/dl Est GFR ( Amer) 35 Est GFR (Non-Af Amer) 29 Random Glucose 108 (70-110) mg/dL Calcium 8.3 L (8.4-10.5) mg/dL Phosphorus 3.9 (2.5-4.5) mg/dL Magnesium 2.0 (1.7-2.2) mg/dL Total Bilirubin 0.1 L (0.2-1.3) mg/dL AST 23 (14-36) U/L ALT 26 (7-56) U/L Alkaline Phosphatase 42 (38-126) U/L Troponin I 0.05 ng/mL Total Protein 5.4 L (5.8-8.3) g/dL Albumin 2.5 L (3.0-4.8) g/dL Globulin 2.9 gm/dL Albumin/Globulin Ratio 0.8 L (1.1-1.8) Arterial Blood Potassium (3.6-5.2) mmol/L Venous Blood Potassium (3.6-5.2) mmol/L Urine Color (YELLOW) Urine Appearance (CLEAR) Urine pH (4.7-8.0) Ur Specific [place] (1.005-1.035) Urine Protein (<30 mg/dL) mg/dL Urine Glucose (UA) (NEGATIVE) mg/dL Urine Ketones (NEGATIVE) mg/dL Urine Blood (NEGATIVE) Urine Nitrate (NEGATIVE) Urine Bilirubin (NEGATIVE) Urine Urobilinogen (<1 E.U./dL) E.U./dL Ur Leukocyte Esterase (NEGATIVE) Chidi/uL Urine RBC (0-2) /hpf Urine WBC (0-6) /hpf Ur Epithelial Cells (0-5) /hpf Blood Type Antibody Screen Crossmatch BBK History Checked 05/13/17 05/13/17 Range/Units 18:18 18:18 WBC (4.5-11.0) 10^3/ul RBC (3.5-6.1) 10^6/uL Hgb (12.0-16.0) g/dL Hct (36.0-48.0) % MCV (80.0-105.0) fl MCH (25.0-35.0) pg MCHC (31.0-37.0) g/dl RDW (11.5-14.5) % Plt Count (120.0-450.0) 10^3/uL MPV (7.0-11.0) fl PT 206.6 H (9.4-12.5) SECONDS INR 17.10 H* (0.93-1.08) APTT (25.1-36.5) Seconds pCO2 (35-45) mm/Hg pO2 (80-100) mm/Hg HCO3 (21-28) mmol/L ABG pH (7.35-7.45) ABG Total CO2 (22-28) mmol.L ABG O2 Saturation (95-98) % ABG O2 Content (15-23) ML/dl ABG Base Excess (-2.0-3.0) mmol/L ABG Hemoglobin (11.7-17.4) g/dL ABG Carboxyhemoglobin (0.5-1.5) % POC ABG HHb (Measured) (0-5) % ABG Methemoglobin (0.0-3.0) % ABG O2 Capacity (16-24) mL/dl ABG Potassium (3.6-5.2) mmol/L VBG pH (7.32-7.43) VBG pCO2 (40-60) VBG HCO3 (21-28) mmol/l VBG Total CO2 (22-28) mmol.L VBG O2 Sat (Calc) (40-65) % VBG Base Excess (0.0-2.0) mmol/L VBG Potassium (3.6-5.2) mmol/L Hgb O2 Saturation (95.0-98.0) % Sodium (132-148) mmol/L Chloride (98-107) mmol/L Glucose (65-105) mg/dl Lactate (0.7-2.1) mmol/L FiO2 % Potassium (3.6-5.0) mmol/L Carbon Dioxide (21-33) mmol/L Anion Gap (10-20) BUN (7-21) mg/dL Creatinine (0.7-1.2) mg/dl Est GFR ( Amer) Est GFR (Non-Af Amer) Random Glucose (70-110) mg/dL Calcium (8.4-10.5) mg/dL Phosphorus (2.5-4.5) mg/dL Magnesium (1.7-2.2) mg/dL Total Bilirubin (0.2-1.3) mg/dL AST (14-36) U/L ALT (7-56) U/L Alkaline Phosphatase (38-126) U/L Troponin I 0.05 ng/mL Total Protein (5.8-8.3) g/dL Albumin (3.0-4.8) g/dL Globulin gm/dL Albumin/Globulin Ratio (1.1-1.8) Arterial Blood Potassium (3.6-5.2) mmol/L Venous Blood Potassium (3.6-5.2) mmol/L Urine Color (YELLOW) Urine Appearance (CLEAR) Urine pH (4.7-8.0) Ur Specific [place] (1.005-1.035) Urine Protein (<30 mg/dL) mg/dL Urine Glucose (UA) (NEGATIVE) mg/dL Urine Ketones (NEGATIVE) mg/dL Urine Blood (NEGATIVE) Urine Nitrate (NEGATIVE) Urine Bilirubin (NEGATIVE) Urine Urobilinogen (<1 E.U./dL) E.U./dL Ur Leukocyte Esterase (NEGATIVE) Chidi/uL Urine RBC (0-2) /hpf Urine WBC (0-6) /hpf Ur Epithelial Cells (0-5) /hpf Blood Type Antibody Screen Crossmatch BBK History Checked Laboratory Results - last 24 hr 05/13/17 05/13/17 05/14/17 18:18 18:18 03:40 WBC 8.3 RBC 2.44 L Hgb 6.2 L* Hct 20.5 L* MCV 84.0 MCH 25.4 MCHC 30.2 L RDW 24.8 H Plt Count 213 MPV 9.6 PT 206.6 H INR 17.10 H* APTT pCO2 pO2 HCO3 ABG pH ABG Total CO2 ABG O2 Saturation ABG O2 Content ABG Base Excess ABG Hemoglobin ABG Carboxyhemoglobin POC ABG HHb (Measured) ABG Methemoglobin ABG O2 Capacity ABG Potassium VBG pH VBG pCO2 VBG HCO3 VBG Total CO2 VBG O2 Sat (Calc) VBG Base Excess VBG Potassium Hgb O2 Saturation Sodium Chloride Glucose Lactate FiO2 Potassium Carbon Dioxide Anion Gap BUN Creatinine Est GFR ( Amer) Est GFR (Non-Af Amer) Random Glucose Calcium Phosphorus Magnesium Total Bilirubin AST ALT Alkaline Phosphatase Troponin I 0.05 Total Protein Albumin Globulin Albumin/Globulin Ratio Arterial Blood Potassium Venous Blood Potassium Urine Color Urine Appearance Urine pH Ur Specific [place] Urine Protein Urine Glucose (UA) Urine Ketones Urine Blood Urine Nitrate Urine Bilirubin Urine Urobilinogen Ur Leukocyte Esterase Urine RBC Urine WBC Ur Epithelial Cells Blood Type Antibody Screen Crossmatch BBK History Checked 05/14/17 05/14/17 05/14/17 03:40 04:00 04:00 WBC RBC Hgb Hct MCV MCH MCHC RDW Plt Count MPV PT 162.3 H INR 13.50 H* APTT 67.0 H pCO2 35 pO2 176.0 H HCO3 16.4 L ABG pH 7.28 L ABG Total CO2 17.5 L ABG O2 Saturation 99.6 H ABG O2 Content 9.4 L ABG Base Excess -9.5 L ABG Hemoglobin 6.5 L ABG Carboxyhemoglobin 1.7 H POC ABG HHb (Measured) 0.4 ABG Methemoglobin 0.1 ABG O2 Capacity 9.4 L ABG Potassium VBG pH VBG pCO2 VBG HCO3 VBG Total CO2 VBG O2 Sat (Calc) VBG Base Excess VBG Potassium Hgb O2 Saturation 97.8 Sodium 141 Chloride 118 H Glucose Lactate FiO2 32.0 Potassium 4.8 Carbon Dioxide 16 L Anion Gap 12 BUN 98 H Creatinine 1.7 H Est GFR ( Amer) 35 Est GFR (Non-Af Amer) 29 Random Glucose 108 Calcium 8.3 L Phosphorus 3.9 Magnesium 2.0 Total Bilirubin 0.1 L AST 23 ALT 26 Alkaline Phosphatase 42 Troponin I 0.05 Total Protein 5.4 L Albumin 2.5 L Globulin 2.9 Albumin/Globulin Ratio 0.8 L Arterial Blood Potassium Venous Blood Potassium Urine Color Urine Appearance Urine pH Ur Specific [place] Urine Protein Urine Glucose (UA) Urine Ketones Urine Blood Urine Nitrate Urine Bilirubin Urine Urobilinogen Ur Leukocyte Esterase Urine RBC Urine WBC Ur Epithelial Cells Blood Type Antibody Screen Crossmatch BBK History Checked 05/14/17 05/14/17 05/14/17 04:00 04:00 04:00 WBC 7.1 RBC 2.22 L Hgb 5.6 L* Hct 18.4 L* MCV 82.9 MCH 25.2 MCHC 30.4 L RDW 24.8 H Plt Count 226 MPV 9.9 PT INR APTT pCO2 34 L pO2 187.0 H 240 H HCO3 16.0 L ABG pH 7.28 L ABG Total CO2 17.0 L ABG O2 Saturation 98.9 H ABG O2 Content ABG Base Excess -9.8 L ABG Hemoglobin ABG Carboxyhemoglobin POC ABG HHb (Measured) ABG Methemoglobin ABG O2 Capacity ABG Potassium 4.7 VBG pH 7.32 VBG pCO2 33.0 L VBG HCO3 17.0 L VBG Total CO2 18.0 L VBG O2 Sat (Calc) 100.0 H VBG Base Excess -8.1 L VBG Potassium 4.9 Hgb O2 Saturation Sodium 140.0 140.0 Chloride 120.0 H 118.0 H Glucose 102 107 H Lactate 0.5 L 0.6 L FiO2 32.0 21.0 Potassium Carbon Dioxide Anion Gap BUN Creatinine Est GFR ( Amer) Est GFR (Non-Af Amer) Random Glucose Calcium Phosphorus Magnesium Total Bilirubin AST ALT Alkaline Phosphatase Troponin I Total Protein Albumin Globulin Albumin/Globulin Ratio Arterial Blood Potassium 4.7 Venous Blood Potassium 4.9 Urine Color Urine Appearance Urine pH Ur Specific [place] Urine Protein Urine Glucose (UA) Urine Ketones Urine Blood Urine Nitrate Urine Bilirubin Urine Urobilinogen Ur Leukocyte Esterase Urine RBC Urine WBC Ur Epithelial Cells Blood Type Antibody Screen Crossmatch BBK History Checked 05/14/17 05/14/17 04:00 04:41 WBC RBC Hgb Hct MCV MCH MCHC RDW Plt Count MPV PT INR APTT pCO2 pO2 HCO3 ABG pH ABG Total CO2 ABG O2 Saturation ABG O2 Content ABG Base Excess ABG Hemoglobin ABG Carboxyhemoglobin POC ABG HHb (Measured) ABG Methemoglobin ABG O2 Capacity ABG Potassium VBG pH VBG pCO2 VBG HCO3 VBG Total CO2 VBG O2 Sat (Calc) VBG Base Excess VBG Potassium Hgb O2 Saturation Sodium Chloride Glucose Lactate FiO2 Potassium Carbon Dioxide Anion Gap BUN Creatinine Est GFR ( Amer) Est GFR (Non-Af Amer) Random Glucose Calcium Phosphorus Magnesium Total Bilirubin AST ALT Alkaline Phosphatase Troponin I Total Protein Albumin Globulin Albumin/Globulin Ratio Arterial Blood Potassium Venous Blood Potassium Urine Color Yellow Urine Appearance Clear Urine pH 6.0 Ur Specific [place] 1.010 Urine Protein Negative Urine Glucose (UA) Negative Urine Ketones Negative Urine Blood Moderate H Urine Nitrate Negative Urine Bilirubin Negative Urine Urobilinogen 0.2 Ur Leukocyte Esterase Trace H Urine RBC 0 - 2 Urine WBC 0 - 2 Ur Epithelial Cells 0 - 2 Blood Type AB POSITIVE Antibody Screen Negative Crossmatch See Detail BBK History Checked Patient has bt EKG/Cardiology Studies: Cardiology / EKG Studies 05/14/17 03:17 EKG [ELECTROCARDIOGRAM] Stat Comment: 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;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 Review of Systems - Review of Systems All systems: reviewed and no additional remarkable complaints except (as per HPI ) Critical Care Progress Note - Extremities/Vascular Does the Patient have a Central Venous Catheter?: No Does the Patient need a Central Venous Catheter?: Yes Does the Patient have a Ferrara Catheter?: No Does the Patient need a Ferrara Catheter?: Yes - Prophylaxis GI Prophylaxis GI: PPI - Prophylaxis DVT Prophylaxis DVT: SCDs - Nutrition Nutrition: Nutrition Category Date Time Status Heart Healthy Diet [DIET] Diets 05/13/17 Dinner Ordered Assessment/Plan - Assessment and Plan (Free Text) Assessment: 81 year old female with past medical history of atrial fibrillation on Coumadin , CHF s/p pacemaker, COPD, dementia, renal insufficiency who originally presented to [facility] with shortness of breath, later found to have supratheraputic INR and anemia. [employer] was called for patient due to hypotension, labs showed drop of Hemoglobin from 8.1 on admission to 5.6 on repeat labs. Bun/Cr ratio suggesting upper GI bleed. BP was responsive to IVF. Patient receiving 2 units pRBC, 2u FFP and was transferred to ICU for further monitoring and observation. Currently, she is hemodynamically stable and in no respiratory distress. Plan: Neuro AAO3 Stable - Head CT negative for acute hemmorhage - hx of dementia at baseline Pulm - Stable - cont NC 2L with goal SaO2 >90%, COPD - monitor respiratory status - CXR and CT chest on admission was unremarkable Cardio Hypotension has imporved - continue to monitor - Maintain MAP >65 - Holding metoprolol - Recent Echo showing EF 84%, severe MR, pulmonary hypertension - EKG during [employer] showed Wide QRS tachycardia, Right bundle branch block Left anterior fascicular block, Bifascicular block, Moderate voltage criteria for LVH - Cardio consulted, recs appreciated - DVt ppx, SCDs; avoid blood thinners given elevated INR GI - Elevated BUN, suspicious for GI bleed - protonix gtt - cont to monitor H/H - CT chest/abdomen/pelvis: thickening of the gallbladder wall, no acute hemmorhage - GI consulted, recs appreciated Renal Baseline CKD - Avoid nephrotoxic medication - monitor I/O - daily weights - ferrara catheter insertion ordered - replete electrolytes as needed - Nephrology consulted, recs appreciated - Lasix ordered x1 but scheduled dose held due to low BP Hyperkalemia - Calcium gluconate ordered - Insulin w/ dextrose ordered Metabolic acidosis on ABG during [employer] - 2Amp Bicarb ordered - clinically improved Heme Supratheraputic INR - Likely secondary patient taking more than prescribed doses of warfarin - 25mg Vitamin K were given - 2 units of FFP ordered - monitor for signs of bleeding - GI consulted for possible GI bleed given - Heme following, recs appreciated - avoid aspirin, motrin, and other NSAIDs for risk of bleeding Anemia - Transfuse 2 units pRBC - monitor H/H Q6H - monitor for signs of bleeding ID: - no clear infectious signs - maintain normothermia Dispo: patient is hemodynamically stable. Will receive blood transfusions and hyperkalemia is noted and being treated. Patient was seen, examined and discussed with Dr. Ruby Arthur PGY1 Pager # [phone] <Scooby Beltran - Last Filed: 05/14/17 10:57> CCU Objective - Vital Signs / Intake & Output Vital Signs (Last 4 hours): Vital Signs Temp Pulse Resp BP Pulse Ox 05/14/17 10:39 98.0 F 125 H 14 115/60 05/14/17 10:26 92/58 L 05/14/17 10:18 97.8 F 128 H 14 93/58 L 05/14/17 10:01 98.0 F 124 H 14 126/64 05/14/17 08:16 115 H 25 H 101/43 L 100 05/14/17 08:15 111 H 29 H 91 L 05/14/17 08:00 119 H 24 96/44 L 100 05/14/17 07:51 113 H 24 100 05/14/17 06:58 98 F 112 H 25 H 106/51 L Intake and Output (Last 8hrs): Intake & Output 05/13/17 05/14/17 05/14/17 22:59 06:59 14:59 Intake Total 620 0 Output Total 600 Balance 20 0 Weight 120 lb Intake: Oral 620 Blood Product 0 0 Red Blood Cells Cpd As1 0 0 Lr Unit [id number] Red Blood Cells Cpd As1 0 Lr Unit [id number] Output: Urine 600 Urine, Voided 600 Stool 0 Urine/Stool Mix 0 Other: Voiding Method Toilet # Voids Urine, Voided 1 # Bowel Movements 0 - Medications Active Medications: Active Medications Generic Name Dose Route Start Last Admin Trade Name Freq PRN Reason Stop Dose Admin Alprazolam 0.5 mg 05/13/17 17:13 05/13/17 18:34 Xanax PO 05/20/17 17:14 0.5 mg BID PRN Administration Anxiety Protocol Atorvastatin Calcium 20 mg 05/14/17 10:00 05/14/17 09:58 Lipitor PO Not Given DAILY ISAI Donepezil HCl 10 mg 05/13/17 22:00 05/13/17 21:20 Aricept PO 10 mg HS ISAI Administration Ferrous Gluconate 324 mg 05/13/17 18:00 05/14/17 09:57 Fergon PO Not Given TID ISAI Furosemide 20 mg 05/13/17 17:15 05/13/17 18:37 Lasix IVP Not Given DAILY ISAI Sodium Chloride 1,000 mls @ 30 mls/hr 05/13/17 17:15 05/13/17 18:40 Sodium Chloride 0.45% IV Not Given .Q24H ISAI Metoprolol Tartrate 12.5 mg 05/13/17 18:00 05/13/17 18:34 Lopressor PO 12.5 mg BID ISAI Administration Morphine Sulfate 1 mg 05/14/17 09:55 Morphine IVP Q4H PRN Pain, moderate (4-7) Pantoprazole Sodium 40 mg 05/14/17 06:00 05/14/17 06:12 Protonix Ec Tab PO 40 mg 0600 ISAI Administration - Patient Studies Lab Studies: Lab Studies 05/14/17 05/14/17 05/14/17 Range/Units 08:30 08:30 04:41 WBC (4.5-11.0) 10^3/ul RBC (3.5-6.1) 10^6/uL Hgb (12.0-16.0) g/dL Hct (36.0-48.0) % MCV (80.0-105.0) fl MCH (25.0-35.0) pg MCHC (31.0-37.0) g/dl RDW (11.5-14.5) % Plt Count (120.0-450.0) 10^3/uL MPV (7.0-11.0) fl Retic Count (0.5-1.5) % PT 68.3 H (9.4-12.5) SECONDS INR 5.73 H* (0.93-1.08) APTT (25.1-36.5) Seconds pCO2 (35-45) mm/Hg pO2 (80-100) mm/Hg HCO3 (21-28) mmol/L ABG pH (7.35-7.45) ABG Total CO2 (22-28) mmol.L ABG O2 Saturation (95-98) % ABG O2 Content (15-23) ML/dl ABG Base Excess (-2.0-3.0) mmol/L ABG Hemoglobin (11.7-17.4) g/dL ABG Carboxyhemoglobin (0.5-1.5) % POC ABG HHb (Measured) (0-5) % ABG Methemoglobin (0.0-3.0) % ABG O2 Capacity (16-24) mL/dl ABG Potassium (3.6-5.2) mmol/L VBG pH (7.32-7.43) VBG pCO2 (40-60) VBG HCO3 (21-28) mmol/l VBG Total CO2 (22-28) mmol.L VBG O2 Sat (Calc) (40-65) % VBG Base Excess (0.0-2.0) mmol/L VBG Potassium (3.6-5.2) mmol/L Hgb O2 Saturation (95.0-98.0) % Sodium 141 (132-148) mmol/L Chloride 116 H (98-107) mmol/L Glucose (65-105) mg/dl Lactate (0.7-2.1) mmol/L FiO2 % Potassium 5.9 H* D (3.6-5.0) mmol/L Carbon Dioxide 17 L (21-33) mmol/L Anion Gap 14 (10-20) BUN 99 H (7-21) mg/dL Creatinine 1.9 H (0.7-1.2) mg/dl Est GFR ( Amer) 31 Est GFR (Non-Af Amer) 25 Random Glucose 98 (70-110) mg/dL Calcium 8.9 (8.4-10.5) mg/dL Phosphorus (2.5-4.5) mg/dL Magnesium (1.7-2.2) mg/dL Total Bilirubin 0.3 (0.2-1.3) mg/dL AST 24 (14-36) U/L ALT 32 (7-56) U/L Alkaline Phosphatase 43 (38-126) U/L Troponin I 0.05 ng/mL Total Protein 5.9 (5.8-8.3) g/dL Albumin 2.8 L (3.0-4.8) g/dL Globulin 3.1 gm/dL Albumin/Globulin Ratio 0.9 L (1.1-1.8) Arterial Blood Potassium (3.6-5.2) mmol/L Venous Blood Potassium (3.6-5.2) mmol/L Urine Color Yellow (YELLOW) Urine Appearance Clear (CLEAR) Urine pH 6.0 (4.7-8.0) Ur Specific [place] 1.010 (1.005-1.035) Urine Protein Negative (<30 mg/dL) mg/dL Urine Glucose (UA) Negative (NEGATIVE) mg/dL Urine Ketones Negative (NEGATIVE) mg/dL Urine Blood Moderate H (NEGATIVE) Urine Nitrate Negative (NEGATIVE) Urine Bilirubin Negative (NEGATIVE) Urine Urobilinogen 0.2 (<1 E.U./dL) E.U./dL Ur Leukocyte Esterase Trace H (NEGATIVE) Chidi/uL Urine RBC 0 - 2 (0-2) /hpf Urine WBC 0 - 2 (0-6) /hpf Ur Epithelial Cells 0 - 2 (0-5) /hpf Blood Type Antibody Screen Crossmatch BBK History Checked 05/14/17 05/14/17 05/14/17 Range/Units 04:00 04:00 04:00 WBC (4.5-11.0) 10^3/ul RBC (3.5-6.1) 10^6/uL Hgb (12.0-16.0) g/dL Hct (36.0-48.0) % MCV (80.0-105.0) fl MCH (25.0-35.0) pg MCHC (31.0-37.0) g/dl RDW (11.5-14.5) % Plt Count (120.0-450.0) 10^3/uL MPV (7.0-11.0) fl Retic Count 6.54 H (0.5-1.5) % PT (9.4-12.5) SECONDS INR (0.93-1.08) APTT (25.1-36.5) Seconds pCO2 (35-45) mm/Hg pO2 240 H (80-100) mm/Hg HCO3 (21-28) mmol/L ABG pH (7.35-7.45) ABG Total CO2 (22-28) mmol.L ABG O2 Saturation (95-98) % ABG O2 Content (15-23) ML/dl ABG Base Excess (-2.0-3.0) mmol/L ABG Hemoglobin (11.7-17.4) g/dL ABG Carboxyhemoglobin (0.5-1.5) % POC ABG HHb (Measured) (0-5) % ABG Methemoglobin (0.0-3.0) % ABG O2 Capacity (16-24) mL/dl ABG Potassium (3.6-5.2) mmol/L VBG pH 7.32 (7.32-7.43) VBG pCO2 33.0 L (40-60) VBG HCO3 17.0 L (21-28) mmol/l VBG Total CO2 18.0 L (22-28) mmol.L VBG O2 Sat (Calc) 100.0 H (40-65) % VBG Base Excess -8.1 L (0.0-2.0) mmol/L VBG Potassium 4.9 (3.6-5.2) mmol/L Hgb O2 Saturation (95.0-98.0) % Sodium 140.0 (132-148) mmol/L Chloride 118.0 H (98-107) mmol/L Glucose 107 H (65-105) mg/dl Lactate 0.6 L (0.7-2.1) mmol/L FiO2 21.0 % Potassium (3.6-5.0) mmol/L Carbon Dioxide (21-33) mmol/L Anion Gap (10-20) BUN (7-21) mg/dL Creatinine (0.7-1.2) mg/dl Est GFR ( Amer) Est GFR (Non-Af Amer) Random Glucose (70-110) mg/dL Calcium (8.4-10.5) mg/dL Phosphorus (2.5-4.5) mg/dL Magnesium (1.7-2.2) mg/dL Total Bilirubin (0.2-1.3) mg/dL AST (14-36) U/L ALT (7-56) U/L Alkaline Phosphatase (38-126) U/L Troponin I ng/mL Total Protein (5.8-8.3) g/dL Albumin (3.0-4.8) g/dL Globulin gm/dL Albumin/Globulin Ratio (1.1-1.8) Arterial Blood Potassium (3.6-5.2) mmol/L Venous Blood Potassium 4.9 (3.6-5.2) mmol/L Urine Color (YELLOW) Urine Appearance (CLEAR) Urine pH (4.7-8.0) Ur Specific [place] (1.005-1.035) Urine Protein (<30 mg/dL) mg/dL Urine Glucose (UA) (NEGATIVE) mg/dL Urine Ketones (NEGATIVE) mg/dL Urine Blood (NEGATIVE) Urine Nitrate (NEGATIVE) Urine Bilirubin (NEGATIVE) Urine Urobilinogen (<1 E.U./dL) E.U./dL Ur Leukocyte Esterase (NEGATIVE) Chidi/uL Urine RBC (0-2) /hpf Urine WBC (0-6) /hpf Ur Epithelial Cells (0-5) /hpf Blood Type AB POSITIVE Antibody Screen Negative Crossmatch See Detail BBK History Checked Patient has bt 05/14/17 05/14/17 05/14/17 Range/Units 04:00 04:00 04:00 WBC 7.1 (4.5-11.0) 10^3/ul RBC 2.22 L (3.5-6.1) 10^6/uL Hgb 5.6 L* (12.0-16.0) g/dL Hct 18.4 L* (36.0-48.0) % MCV 82.9 (80.0-105.0) fl MCH 25.2 (25.0-35.0) pg MCHC 30.4 L (31.0-37.0) g/dl RDW 24.8 H (11.5-14.5) % Plt Count 226 (120.0-450.0) 10^3/uL MPV 9.9 (7.0-11.0) fl Retic Count (0.5-1.5) % PT 162.3 H (9.4-12.5) SECONDS INR 13.50 H* (0.93-1.08) APTT 67.0 H (25.1-36.5) Seconds pCO2 34 L (35-45) mm/Hg pO2 187.0 H (80-100) mm/Hg HCO3 16.0 L (21-28) mmol/L ABG pH 7.28 L (7.35-7.45) ABG Total CO2 17.0 L (22-28) mmol.L ABG O2 Saturation 98.9 H (95-98) % ABG O2 Content (15-23) ML/dl ABG Base Excess -9.8 L (-2.0-3.0) mmol/L ABG Hemoglobin (11.7-17.4) g/dL ABG Carboxyhemoglobin (0.5-1.5) % POC ABG HHb (Measured) (0-5) % ABG Methemoglobin (0.0-3.0) % ABG O2 Capacity (16-24) mL/dl ABG Potassium 4.7 (3.6-5.2) mmol/L VBG pH (7.32-7.43) VBG pCO2 (40-60) VBG HCO3 (21-28) mmol/l VBG Total CO2 (22-28) mmol.L VBG O2 Sat (Calc) (40-65) % VBG Base Excess (0.0-2.0) mmol/L VBG Potassium (3.6-5.2) mmol/L Hgb O2 Saturation (95.0-98.0) % Sodium 140.0 (132-148) mmol/L Chloride 120.0 H (98-107) mmol/L Glucose 102 (65-105) mg/dl Lactate 0.5 L (0.7-2.1) mmol/L FiO2 32.0 % Potassium (3.6-5.0) mmol/L Carbon Dioxide (21-33) mmol/L Anion Gap (10-20) BUN (7-21) mg/dL Creatinine (0.7-1.2) mg/dl Est GFR ( Amer) Est GFR (Non-Af Amer) Random Glucose (70-110) mg/dL Calcium (8.4-10.5) mg/dL Phosphorus (2.5-4.5) mg/dL Magnesium (1.7-2.2) mg/dL Total Bilirubin (0.2-1.3) mg/dL AST (14-36) U/L ALT (7-56) U/L Alkaline Phosphatase (38-126) U/L Troponin I ng/mL Total Protein (5.8-8.3) g/dL Albumin (3.0-4.8) g/dL Globulin gm/dL Albumin/Globulin Ratio (1.1-1.8) Arterial Blood Potassium 4.7 (3.6-5.2) mmol/L Venous Blood Potassium (3.6-5.2) mmol/L Urine Color (YELLOW) Urine Appearance (CLEAR) Urine pH (4.7-8.0) Ur Specific [place] (1.005-1.035) Urine Protein (<30 mg/dL) mg/dL Urine Glucose (UA) (NEGATIVE) mg/dL Urine Ketones (NEGATIVE) mg/dL Urine Blood (NEGATIVE) Urine Nitrate (NEGATIVE) Urine Bilirubin (NEGATIVE) Urine Urobilinogen (<1 E.U./dL) E.U./dL Ur Leukocyte Esterase (NEGATIVE) Chidi/uL Urine RBC (0-2) /hpf Urine WBC (0-6) /hpf Ur Epithelial Cells (0-5) /hpf Blood Type Antibody Screen Crossmatch BBK History Checked 05/14/17 05/14/17 05/14/17 Range/Units 04:00 03:40 03:40 WBC 8.3 (4.5-11.0) 10^3/ul RBC 2.44 L (3.5-6.1) 10^6/uL Hgb 6.2 L* (12.0-16.0) g/dL Hct 20.5 L* (36.0-48.0) % MCV 84.0 (80.0-105.0) fl MCH 25.4 (25.0-35.0) pg MCHC 30.2 L (31.0-37.0) g/dl RDW 24.8 H (11.5-14.5) % Plt Count 213 (120.0-450.0) 10^3/uL MPV 9.6 (7.0-11.0) fl Retic Count (0.5-1.5) % PT (9.4-12.5) SECONDS INR (0.93-1.08) APTT (25.1-36.5) Seconds pCO2 35 (35-45) mm/Hg pO2 176.0 H (80-100) mm/Hg HCO3 16.4 L (21-28) mmol/L ABG pH 7.28 L (7.35-7.45) ABG Total CO2 17.5 L (22-28) mmol.L ABG O2 Saturation 99.6 H (95-98) % ABG O2 Content 9.4 L (15-23) ML/dl ABG Base Excess -9.5 L (-2.0-3.0) mmol/L ABG Hemoglobin 6.5 L (11.7-17.4) g/dL ABG Carboxyhemoglobin 1.7 H (0.5-1.5) % POC ABG HHb (Measured) 0.4 (0-5) % ABG Methemoglobin 0.1 (0.0-3.0) % ABG O2 Capacity 9.4 L (16-24) mL/dl ABG Potassium (3.6-5.2) mmol/L VBG pH (7.32-7.43) VBG pCO2 (40-60) VBG HCO3 (21-28) mmol/l VBG Total CO2 (22-28) mmol.L VBG O2 Sat (Calc) (40-65) % VBG Base Excess (0.0-2.0) mmol/L VBG Potassium (3.6-5.2) mmol/L Hgb O2 Saturation 97.8 (95.0-98.0) % Sodium 141 (132-148) mmol/L Chloride 118 H (98-107) mmol/L Glucose (65-105) mg/dl Lactate (0.7-2.1) mmol/L FiO2 32.0 % Potassium 4.8 (3.6-5.0) mmol/L Carbon Dioxide 16 L (21-33) mmol/L Anion Gap 12 (10-20) BUN 98 H (7-21) mg/dL Creatinine 1.7 H (0.7-1.2) mg/dl Est GFR ( Amer) 35 Est GFR (Non-Af Amer) 29 Random Glucose 108 (70-110) mg/dL Calcium 8.3 L (8.4-10.5) mg/dL Phosphorus 3.9 (2.5-4.5) mg/dL Magnesium 2.0 (1.7-2.2) mg/dL Total Bilirubin 0.1 L (0.2-1.3) mg/dL AST 23 (14-36) U/L ALT 26 (7-56) U/L Alkaline Phosphatase 42 (38-126) U/L Troponin I 0.05 ng/mL Total Protein 5.4 L (5.8-8.3) g/dL Albumin 2.5 L (3.0-4.8) g/dL Globulin 2.9 gm/dL Albumin/Globulin Ratio 0.8 L (1.1-1.8) Arterial Blood Potassium (3.6-5.2) mmol/L Venous Blood Potassium (3.6-5.2) mmol/L Urine Color (YELLOW) Urine Appearance (CLEAR) Urine pH (4.7-8.0) Ur Specific [place] (1.005-1.035) Urine Protein (<30 mg/dL) mg/dL Urine Glucose (UA) (NEGATIVE) mg/dL Urine Ketones (NEGATIVE) mg/dL Urine Blood (NEGATIVE) Urine Nitrate (NEGATIVE) Urine Bilirubin (NEGATIVE) Urine Urobilinogen (<1 E.U./dL) E.U./dL Ur Leukocyte Esterase (NEGATIVE) Chidi/uL Urine RBC (0-2) /hpf Urine WBC (0-6) /hpf Ur Epithelial Cells (0-5) /hpf Blood Type Antibody Screen Crossmatch BBK History Checked 05/13/17 05/13/17 Range/Units 18:18 18:18 WBC (4.5-11.0) 10^3/ul RBC (3.5-6.1) 10^6/uL Hgb (12.0-16.0) g/dL Hct (36.0-48.0) % MCV (80.0-105.0) fl MCH (25.0-35.0) pg MCHC (31.0-37.0) g/dl RDW (11.5-14.5) % Plt Count (120.0-450.0) 10^3/uL MPV (7.0-11.0) fl Retic Count (0.5-1.5) % PT 206.6 H (9.4-12.5) SECONDS INR 17.10 H* (0.93-1.08) APTT (25.1-36.5) Seconds pCO2 (35-45) mm/Hg pO2 (80-100) mm/Hg HCO3 (21-28) mmol/L ABG pH (7.35-7.45) ABG Total CO2 (22-28) mmol.L ABG O2 Saturation (95-98) % ABG O2 Content (15-23) ML/dl ABG Base Excess (-2.0-3.0) mmol/L ABG Hemoglobin (11.7-17.4) g/dL ABG Carboxyhemoglobin (0.5-1.5) % POC ABG HHb (Measured) (0-5) % ABG Methemoglobin (0.0-3.0) % ABG O2 Capacity (16-24) mL/dl ABG Potassium (3.6-5.2) mmol/L VBG pH (7.32-7.43) VBG pCO2 (40-60) VBG HCO3 (21-28) mmol/l VBG Total CO2 (22-28) mmol.L VBG O2 Sat (Calc) (40-65) % VBG Base Excess (0.0-2.0) mmol/L VBG Potassium (3.6-5.2) mmol/L Hgb O2 Saturation (95.0-98.0) % Sodium (132-148) mmol/L Chloride (98-107) mmol/L Glucose (65-105) mg/dl Lactate (0.7-2.1) mmol/L FiO2 % Potassium (3.6-5.0) mmol/L Carbon Dioxide (21-33) mmol/L Anion Gap (10-20) BUN (7-21) mg/dL Creatinine (0.7-1.2) mg/dl Est GFR ( Amer) Est GFR (Non-Af Amer) Random Glucose (70-110) mg/dL Calcium (8.4-10.5) mg/dL Phosphorus (2.5-4.5) mg/dL Magnesium (1.7-2.2) mg/dL Total Bilirubin (0.2-1.3) mg/dL AST (14-36) U/L ALT (7-56) U/L Alkaline Phosphatase (38-126) U/L Troponin I 0.05 ng/mL Total Protein (5.8-8.3) g/dL Albumin (3.0-4.8) g/dL Globulin gm/dL Albumin/Globulin Ratio (1.1-1.8) Arterial Blood Potassium (3.6-5.2) mmol/L Venous Blood Potassium (3.6-5.2) mmol/L Urine Color (YELLOW) Urine Appearance (CLEAR) Urine pH (4.7-8.0) Ur Specific [place] (1.005-1.035) Urine Protein (<30 mg/dL) mg/dL Urine Glucose (UA) (NEGATIVE) mg/dL Urine Ketones (NEGATIVE) mg/dL Urine Blood (NEGATIVE) Urine Nitrate (NEGATIVE) Urine Bilirubin (NEGATIVE) Urine Urobilinogen (<1 E.U./dL) E.U./dL Ur Leukocyte Esterase (NEGATIVE) Chidi/uL Urine RBC (0-2) /hpf Urine WBC (0-6) /hpf Ur Epithelial Cells (0-5) /hpf Blood Type Antibody Screen Crossmatch BBK History Checked Laboratory Results - last 24 hr 05/13/17 05/13/17 05/14/17 18:18 18:18 03:40 WBC 8.3 RBC 2.44 L Hgb 6.2 L* Hct 20.5 L* MCV 84.0 MCH 25.4 MCHC 30.2 L RDW 24.8 H Plt Count 213 MPV 9.6 Retic Count PT 206.6 H INR 17.10 H* APTT pCO2 pO2 HCO3 ABG pH ABG Total CO2 ABG O2 Saturation ABG O2 Content ABG Base Excess ABG Hemoglobin ABG Carboxyhemoglobin POC ABG HHb (Measured) ABG Methemoglobin ABG O2 Capacity ABG Potassium VBG pH VBG pCO2 VBG HCO3 VBG Total CO2 VBG O2 Sat (Calc) VBG Base Excess VBG Potassium Hgb O2 Saturation Sodium Chloride Glucose Lactate FiO2 Potassium Carbon Dioxide Anion Gap BUN Creatinine Est GFR ( Amer) Est GFR (Non-Af Amer) Random Glucose Calcium Phosphorus Magnesium Total Bilirubin AST ALT Alkaline Phosphatase Troponin I 0.05 Total Protein Albumin Globulin Albumin/Globulin Ratio Arterial Blood Potassium Venous Blood Potassium Urine Color Urine Appearance Urine pH Ur Specific [place] Urine Protein Urine Glucose (UA) Urine Ketones Urine Blood Urine Nitrate Urine Bilirubin Urine Urobilinogen Ur Leukocyte Esterase Urine RBC Urine WBC Ur Epithelial Cells Blood Type Antibody Screen Crossmatch BBK History Checked 05/14/17 05/14/17 05/14/17 03:40 04:00 04:00 WBC RBC Hgb Hct MCV MCH MCHC RDW Plt Count MPV Retic Count PT 162.3 H INR 13.50 H* APTT 67.0 H pCO2 35 pO2 176.0 H HCO3 16.4 L ABG pH 7.28 L ABG Total CO2 17.5 L ABG O2 Saturation 99.6 H ABG O2 Content 9.4 L ABG Base Excess -9.5 L ABG Hemoglobin 6.5 L ABG Carboxyhemoglobin 1.7 H POC ABG HHb (Measured) 0.4 ABG Methemoglobin 0.1 ABG O2 Capacity 9.4 L ABG Potassium VBG pH VBG pCO2 VBG HCO3 VBG Total CO2 VBG O2 Sat (Calc) VBG Base Excess VBG Potassium Hgb O2 Saturation 97.8 Sodium 141 Chloride 118 H Glucose Lactate FiO2 32.0 Potassium 4.8 Carbon Dioxide 16 L Anion Gap 12 BUN 98 H Creatinine 1.7 H Est GFR ( Amer) 35 Est GFR (Non-Af Amer) 29 Random Glucose 108 Calcium 8.3 L Phosphorus 3.9 Magnesium 2.0 Total Bilirubin 0.1 L AST 23 ALT 26 Alkaline Phosphatase 42 Troponin I 0.05 Total Protein 5.4 L Albumin 2.5 L Globulin 2.9 Albumin/Globulin Ratio 0.8 L Arterial Blood Potassium Venous Blood Potassium Urine Color Urine Appearance Urine pH Ur Specific [place] Urine Protein Urine Glucose (UA) Urine Ketones Urine Blood Urine Nitrate Urine Bilirubin Urine Urobilinogen Ur Leukocyte Esterase Urine RBC Urine WBC Ur Epithelial Cells Blood Type Antibody Screen Crossmatch BBK History Checked 05/14/17 05/14/17 05/14/17 04:00 04:00 04:00 WBC 7.1 RBC 2.22 L Hgb 5.6 L* Hct 18.4 L* MCV 82.9 MCH 25.2 MCHC 30.4 L RDW 24.8 H Plt Count 226 MPV 9.9 Retic Count PT INR APTT pCO2 34 L pO2 187.0 H 240 H HCO3 16.0 L ABG pH 7.28 L ABG Total CO2 17.0 L ABG O2 Saturation 98.9 H ABG O2 Content ABG Base Excess -9.8 L ABG Hemoglobin ABG Carboxyhemoglobin POC ABG HHb (Measured) ABG Methemoglobin ABG O2 Capacity ABG Potassium 4.7 VBG pH 7.32 VBG pCO2 33.0 L VBG HCO3 17.0 L VBG Total CO2 18.0 L VBG O2 Sat (Calc) 100.0 H VBG Base Excess -8.1 L VBG Potassium 4.9 Hgb O2 Saturation Sodium 140.0 140.0 Chloride 120.0 H 118.0 H Glucose 102 107 H Lactate 0.5 L 0.6 L FiO2 32.0 21.0 Potassium Carbon Dioxide Anion Gap BUN Creatinine Est GFR ( Amer) Est GFR (Non-Af Amer) Random Glucose Calcium Phosphorus Magnesium Total Bilirubin AST ALT Alkaline Phosphatase Troponin I Total Protein Albumin Globulin Albumin/Globulin Ratio Arterial Blood Potassium 4.7 Venous Blood Potassium 4.9 Urine Color Urine Appearance Urine pH Ur Specific [place] Urine Protein Urine Glucose (UA) Urine Ketones Urine Blood Urine Nitrate Urine Bilirubin Urine Urobilinogen Ur Leukocyte Esterase Urine RBC Urine WBC Ur Epithelial Cells Blood Type Antibody Screen Crossmatch BBK History Checked 05/14/17 05/14/17 05/14/17 04:00 04:00 04:41 WBC RBC Hgb Hct MCV MCH MCHC RDW Plt Count MPV Retic Count 6.54 H PT INR APTT pCO2 pO2 HCO3 ABG pH ABG Total CO2 ABG O2 Saturation ABG O2 Content ABG Base Excess ABG Hemoglobin ABG Carboxyhemoglobin POC ABG HHb (Measured) ABG Methemoglobin ABG O2 Capacity ABG Potassium VBG pH VBG pCO2 VBG HCO3 VBG Total CO2 VBG O2 Sat (Calc) VBG Base Excess VBG Potassium Hgb O2 Saturation Sodium Chloride Glucose Lactate FiO2 Potassium Carbon Dioxide Anion Gap BUN Creatinine Est GFR ( Amer) Est GFR (Non-Af Amer) Random Glucose Calcium Phosphorus Magnesium Total Bilirubin AST ALT Alkaline Phosphatase Troponin I Total Protein Albumin Globulin Albumin/Globulin Ratio Arterial Blood Potassium Venous Blood Potassium Urine Color Yellow Urine Appearance Clear Urine pH 6.0 Ur Specific [place] 1.010 Urine Protein Negative Urine Glucose (UA) Negative Urine Ketones Negative Urine Blood Moderate H Urine Nitrate Negative Urine Bilirubin Negative Urine Urobilinogen 0.2 Ur Leukocyte Esterase Trace H Urine RBC 0 - 2 Urine WBC 0 - 2 Ur Epithelial Cells 0 - 2 Blood Type AB POSITIVE Antibody Screen Negative Crossmatch See Detail BBK History Checked Patient has bt 05/14/17 05/14/17 08:30 08:30 WBC RBC Hgb Hct MCV MCH MCHC RDW Plt Count MPV Retic Count PT 68.3 H INR 5.73 H* APTT pCO2 pO2 HCO3 ABG pH ABG Total CO2 ABG O2 Saturation ABG O2 Content ABG Base Excess ABG Hemoglobin ABG Carboxyhemoglobin POC ABG HHb (Measured) ABG Methemoglobin ABG O2 Capacity ABG Potassium VBG pH VBG pCO2 VBG HCO3 VBG Total CO2 VBG O2 Sat (Calc) VBG Base Excess VBG Potassium Hgb O2 Saturation Sodium 141 Chloride 116 H Glucose Lactate FiO2 Potassium 5.9 H* D Carbon Dioxide 17 L Anion Gap 14 BUN 99 H Creatinine 1.9 H Est GFR ( Amer) 31 Est GFR (Non-Af Amer) 25 Random Glucose 98 Calcium 8.9 Phosphorus Magnesium Total Bilirubin 0.3 AST 24 ALT 32 Alkaline Phosphatase 43 Troponin I 0.05 Total Protein 5.9 Albumin 2.8 L Globulin 3.1 Albumin/Globulin Ratio 0.9 L Arterial Blood Potassium Venous Blood Potassium Urine Color Urine Appearance Urine pH Ur Specific [place] Urine Protein Urine Glucose (UA) Urine Ketones Urine Blood Urine Nitrate Urine Bilirubin Urine Urobilinogen Ur Leukocyte Esterase Urine RBC Urine WBC Ur Epithelial Cells Blood Type Antibody Screen Crossmatch BBK History Checked EKG/Cardiology Studies: Cardiology / EKG Studies 05/13/17 10:22 EKG [ELECTROCARDIOGRAM] Stat Comment: Reason For Exam: sob 05/14/17 03:17 EKG [ELECTROCARDIOGRAM] Stat Comment: 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 Patient care was discussed with resident and ICU team in MDR rounds. Medical records, lab studies, and imaging were reviewed and management issues were discussed and formulated. Last 24H events reviewed. Agree with above treatment plans as outlined in ' note with addition of the following: -hemodynamic monitoring to maintain MAP>65 -o2 supplementation to maintain Spo2>90 Pao2>60; currently comfortable on NC -f\u Bun\Cr and U\o; consider nephrology eval; hyperkalemia treatment given; f\ u repeat K+ -GI team eval -continue PPi IV -f\u serial H\H; transfuse 2 PRBC this morning -f\u INR; vit K given; will transfuse 2 FFP and repeat INR -NPO diet and aspiration precautions -resume ASA when ok by GI team -DVT \ PUD prophylaxis CCM time 34mins
[2017-05-14 09:07] LABS: PROTHROMBIN TIME 68.3 SECONDS (9.4-12.5)
[2017-05-14 09:09] LABS: INR 5.73 (0.93-1.08)
[2017-05-14 09:11] LABS: TROPONIN I 0.05 ng/mL
[2017-05-14 09:15] LABS: ALB/GLOB RATIO 0.9 (1.1-1.8); ALBUMIN 2.8 g/dL (3.0-4.8); CALCIUM 8.9 mg/dL (8.4-10.5)
[2017-05-14] MEDS ORDERED: Dextrose 50% SYRINGE Inj (50 ml) IVP ONE (09:25)
[2017-05-14] MEDS ORDERED: Insulin Regular 1 UNITS/0.01 ML ML SC ONE (09:25)
[2017-05-14] MEDS ORDERED: Sodium Bicarbonate (8.4%) 50 Meq Syringe IVP ONE ×2 (09:28→10:47)
[2017-05-14] MEDS ORDERED: Morphine 2 mg/ml ISec IVP PRN (09:45)
--- NOTE | 2017-05-14 10:39 | CP.PCM.CON ---
History of Present Illness - History of Present Illness History of Present Illness: Asked by Dr. Farris for a GI consultation on this patient. 81 year old female with history of atrial fibrillation on coumadin, CHF, dementia, CKD who presented to hospital with complaint of dyspnea on exertion and fatigue for the past one week. On arrival to hospital patient was found to have supratherapeutic INR > 15. Her hospital course was complicated by development of lethargy and hypotension and was transferred to ICU where she is currently seen. GI called for evaluation of progressive anemia. She denies abdominal pain, nausea, vomiting, fever/chills, weight loss, melena, rectal bleeding, or change in bowel habits. She endorses ongoing fatigue and feels "terrible." She claims to have had an EGD/colonoscopy several years ago in [place] but cannot recall results. Social history: non-smoker, no ETOH use Family history: reviewed, patient denies history of GI malignancies Review of Systems - Review of Systems Review of Systems: - 12 point comprehensive review of systems performed, negative - Constitutional Constitutional: Fatigue - Cardiovascular Cardiovascular: absent: Acrocyanosis, Chest Pain, Chest Pain at Rest, Chest Pain with Activity, Claudication, Diaphoresis, Dyspnea, Dyspnea on Exertion, Edema, Irregular Heart Rhythm, Pain Radiating to Arm/Neck/Jaw, Leg Edema, Leg Ulcers, Lightheadedness, Orthopnea, Palpitations, Paroxysmal Nocturnal Dyspnea, Pedal Edema, Radiating Pain, Rapid Heart Rate, Slow Heart Rate, Syncope, Other - Respiratory Respiratory: Dyspnea - Gastrointestinal Gastrointestinal: absent: Abdominal Pain, Belching, Bloating, Change in Bowel Habits, Change in Stool Character, Coffee Ground Emesis, Constipation, Cramping , Diarrhea, Dyspepsia, Dysphagia, Early Satiety, Excessive Flatus, Fecal Incontinence, Heartburn, Hematemesis, Hematochezia, Loose Stools, Melena, Nausea , Odynophagia, Temesmus, Vomiting, Other - Musculoskeletal Musculoskeletal: Radiating Pain into Limb Additional comments: LLE - Neurological Neurological: absent: Abnormal Gait, Abnormal Hearing, Abnormal Movements, Abnormal Speech, Behavioral Changes, Burning Sensations, Confusion, Convulsions , Disequilibrium, Dizziness, Numbness, Focal Weakness, Frequent Falls, Headaches , Lack of Coordination, Loss of Vision, Memory Loss, Paresthesias, Radicular Pain, Restless Legs, Sensory Deficit, Syncope, Tingling, Tremor, Vertigo, Weakness, Other Visual Disturbances, Other Past Patient History - Infectious Disease Hx of Infectious Diseases: None - Tetanus Immunizations Tetanus Immunization: >10 years Ago - Past Medical History & Family History Past Medical History?: Yes - Past Social History Smoking Status: Former Smoker Alcohol: None Drugs: Denies - CARDIAC Hx Cardiac Disorders: Yes Hx Cardia Arrhythmia: Yes (AFIB) Hx Congestive Heart Failure: Yes Hx Hypertension: Yes Other/Comment: + R sided pacemaker - PULMONARY Hx Respiratory Disorders: Yes (USED TO SMOKE 6 CIG A DAY) - NEUROLOGICAL Hx Neurological Disorder: Yes Hx Dementia: Yes Hx Dizziness: Yes (SYNCOPE) - HEENT Hx HEENT Problems: Yes (glasses) - RENAL Hx Chronic Kidney Disease: Yes - ENDOCRINE/METABOLIC Hx Endocrine Disorders: No - HEMATOLOGICAL/ONCOLOGICAL Hx Blood Disorders: Yes Hx Anemia: Yes - INTEGUMENTARY Hx Dermatological Problems: No - MUSCULOSKELETAL/RHEUMATOLOGICAL Hx Musculoskeletal Disorders: Yes Hx Arthritis: Yes Hx Falls: Yes Hx Unsteady Gait: Yes (CANE) - GASTROINTESTINAL Hx Gastrointestinal Disorders: Yes Hx Gastroesophageal Reflux: Yes - GENITOURINARY/GYNECOLOGICAL Hx Genitourinary Disorders: No - PSYCHIATRIC Hx Psychophysiologic Disorder: Yes Hx Anxiety: Yes Hx Substance Use: No - SURGICAL HISTORY Hx Surgeries: Yes Other/Comment: Pacemaker placement - ANESTHESIA Hx Anesthesia: Yes Hx Anesthesia Reactions: No Hx Malignant Hyperthermia: No Meds Allergies/Adverse Reactions: Allergies Allergy/AdvReac Type Severity Reaction Status Date / Time No Known Allergies Allergy Verified 05/13/17 15:40 - Medications Medications: Current Medications Alprazolam (Xanax) 0.5 mg PO BID PRN; Protocol PRN Reason: Anxiety Stop: 05/20/17 17:14 Last Admin: 05/13/17 18:34 Dose: 0.5 mg Atorvastatin Calcium (Lipitor) 20 mg PO DAILY [facility] Last Admin: 05/14/17 09:58 Dose: Not Given Donepezil HCl (Aricept) 10 mg PO HS [facility] Last Admin: 05/13/17 21:20 Dose: 10 mg Ferrous Gluconate (Fergon) 324 mg PO TID [facility] Last Admin: 05/14/17 09:57 Dose: Not Given Furosemide (Lasix) 20 mg IVP DAILY [facility] Last Admin: 05/13/17 18:37 Dose: Not Given Sodium Chloride (Sodium Chloride 0.45%) 1,000 mls @ 30 mls/hr IV .Q24H [facility] Last Admin: 05/13/17 18:40 Dose: Not Given Metoprolol Tartrate (Lopressor) 12.5 mg PO BID [facility] Last Admin: 05/13/17 18:34 Dose: 12.5 mg Morphine Sulfate (Morphine) 1 mg IVP Q4H PRN PRN Reason: Pain, moderate (4-7) Pantoprazole Sodium (Protonix Ec Tab) 40 mg PO 0600 [facility] Last Admin: 05/14/17 06:12 Dose: 40 mg Physical Exam - Constitutional Appears: Non-toxic, No Acute Distress - Head Exam Head Exam: NORMAL INSPECTION - Eye Exam Eye Exam: EOMI, Normal appearance - ENT Exam ENT Exam: Mucous Membranes Moist - Respiratory Exam Respiratory Exam: Clear to Auscultation Bilateral - Cardiovascular Exam Cardiovascular Exam: Tachycardia, +S1, +S2 - GI/Abdominal Exam GI & Abdominal Exam: Normal Bowel Sounds, Soft Additional comments: non tender to palpation in four quadrants no palpable hepato/splenomegaly - Rectal Exam Additional comments: normal sphincter tone, no palpable lesions, hard dark brown stool in rectal vault - Extremities Exam Extremities exam: Positive for: normal inspection - Neurological Exam Neurological exam: Alert, CN II-XII Intact, Oriented x3, Reflexes Normal - Psychiatric Exam Psychiatric exam: Normal Affect, Normal Mood - Skin Skin Exam: Dry, Intact, Normal Color, Warm Results - Vital Signs Recent Vital Signs: Last Vital Signs Temp 98.0 F 05/14/17 10:01 Pulse 124 H 05/14/17 10:01 Resp 14 05/14/17 10:01 BP 126/64 05/14/17 10:01 Pulse Ox 100 05/14/17 08:16 - Labs Result Diagrams: 05/14/17 04:00 05/14/17 08:30 Labs: Laboratory Results - last 24 hr 05/13/17 05/13/17 05/14/17 18:18 18:18 03:40 WBC 8.3 RBC 2.44 L Hgb 6.2 L* Hct 20.5 L* MCV 84.0 MCH 25.4 MCHC 30.2 L RDW 24.8 H Plt Count 213 MPV 9.6 PT 206.6 H INR 17.10 H* APTT pCO2 pO2 HCO3 ABG pH ABG Total CO2 ABG O2 Saturation ABG O2 Content ABG Base Excess ABG Hemoglobin ABG Carboxyhemoglobin POC ABG HHb (Measured) ABG Methemoglobin ABG O2 Capacity ABG Potassium VBG pH VBG pCO2 VBG HCO3 VBG Total CO2 VBG O2 Sat (Calc) VBG Base Excess VBG Potassium Hgb O2 Saturation Sodium Chloride Glucose Lactate FiO2 Potassium Carbon Dioxide Anion Gap BUN Creatinine Est GFR ( Amer) Est GFR (Non-Af Amer) Random Glucose Calcium Phosphorus Magnesium Total Bilirubin AST ALT Alkaline Phosphatase Troponin I 0.05 Total Protein Albumin Globulin Albumin/Globulin Ratio Arterial Blood Potassium Venous Blood Potassium Urine Color Urine Appearance Urine pH Ur Specific [place] Urine Protein Urine Glucose (UA) Urine Ketones Urine Blood Urine Nitrate Urine Bilirubin Urine Urobilinogen Ur Leukocyte Esterase Urine RBC Urine WBC Ur Epithelial Cells Blood Type Antibody Screen Crossmatch BBK History Checked 05/14/17 05/14/17 05/14/17 03:40 04:00 04:00 WBC RBC Hgb Hct MCV MCH MCHC RDW Plt Count MPV PT 162.3 H INR 13.50 H* APTT 67.0 H pCO2 35 pO2 176.0 H HCO3 16.4 L ABG pH 7.28 L ABG Total CO2 17.5 L ABG O2 Saturation 99.6 H ABG O2 Content 9.4 L ABG Base Excess -9.5 L ABG Hemoglobin 6.5 L ABG Carboxyhemoglobin 1.7 H POC ABG HHb (Measured) 0.4 ABG Methemoglobin 0.1 ABG O2 Capacity 9.4 L ABG Potassium VBG pH VBG pCO2 VBG HCO3 VBG Total CO2 VBG O2 Sat (Calc) VBG Base Excess VBG Potassium Hgb O2 Saturation 97.8 Sodium 141 Chloride 118 H Glucose Lactate FiO2 32.0 Potassium 4.8 Carbon Dioxide 16 L Anion Gap 12 BUN 98 H Creatinine 1.7 H Est GFR ( Amer) 35 Est GFR (Non-Af Amer) 29 Random Glucose 108 Calcium 8.3 L Phosphorus 3.9 Magnesium 2.0 Total Bilirubin 0.1 L AST 23 ALT 26 Alkaline Phosphatase 42 Troponin I 0.05 Total Protein 5.4 L Albumin 2.5 L Globulin 2.9 Albumin/Globulin Ratio 0.8 L Arterial Blood Potassium Venous Blood Potassium Urine Color Urine Appearance Urine pH Ur Specific [place] Urine Protein Urine Glucose (UA) Urine Ketones Urine Blood Urine Nitrate Urine Bilirubin Urine Urobilinogen Ur Leukocyte Esterase Urine RBC Urine WBC Ur Epithelial Cells Blood Type Antibody Screen Crossmatch BBK History Checked 05/14/17 05/14/17 05/14/17 04:00 04:00 04:00 WBC 7.1 RBC 2.22 L Hgb 5.6 L* Hct 18.4 L* MCV 82.9 MCH 25.2 MCHC 30.4 L RDW 24.8 H Plt Count 226 MPV 9.9 PT INR APTT pCO2 34 L pO2 187.0 H 240 H HCO3 16.0 L ABG pH 7.28 L ABG Total CO2 17.0 L ABG O2 Saturation 98.9 H ABG O2 Content ABG Base Excess -9.8 L ABG Hemoglobin ABG Carboxyhemoglobin POC ABG HHb (Measured) ABG Methemoglobin ABG O2 Capacity ABG Potassium 4.7 VBG pH 7.32 VBG pCO2 33.0 L VBG HCO3 17.0 L VBG Total CO2 18.0 L VBG O2 Sat (Calc) 100.0 H VBG Base Excess -8.1 L VBG Potassium 4.9 Hgb O2 Saturation Sodium 140.0 140.0 Chloride 120.0 H 118.0 H Glucose 102 107 H Lactate 0.5 L 0.6 L FiO2 32.0 21.0 Potassium Carbon Dioxide Anion Gap BUN Creatinine Est GFR ( Amer) Est GFR (Non-Af Amer) Random Glucose Calcium Phosphorus Magnesium Total Bilirubin AST ALT Alkaline Phosphatase Troponin I Total Protein Albumin Globulin Albumin/Globulin Ratio Arterial Blood Potassium 4.7 Venous Blood Potassium 4.9 Urine Color Urine Appearance Urine pH Ur Specific [place] Urine Protein Urine Glucose (UA) Urine Ketones Urine Blood Urine Nitrate Urine Bilirubin Urine Urobilinogen Ur Leukocyte Esterase Urine RBC Urine WBC Ur Epithelial Cells Blood Type Antibody Screen Crossmatch BBK History Checked 05/14/17 05/14/17 05/14/17 04:00 04:41 08:30 WBC RBC Hgb Hct MCV MCH MCHC RDW Plt Count MPV PT INR APTT pCO2 pO2 HCO3 ABG pH ABG Total CO2 ABG O2 Saturation ABG O2 Content ABG Base Excess ABG Hemoglobin ABG Carboxyhemoglobin POC ABG HHb (Measured) ABG Methemoglobin ABG O2 Capacity ABG Potassium VBG pH VBG pCO2 VBG HCO3 VBG Total CO2 VBG O2 Sat (Calc) VBG Base Excess VBG Potassium Hgb O2 Saturation Sodium 141 Chloride 116 H Glucose Lactate FiO2 Potassium 5.9 H* D Carbon Dioxide 17 L Anion Gap 14 BUN 99 H Creatinine 1.9 H Est GFR ( Amer) 31 Est GFR (Non-Af Amer) 25 Random Glucose 98 Calcium 8.9 Phosphorus Magnesium Total Bilirubin 0.3 AST 24 ALT 32 Alkaline Phosphatase 43 Troponin I 0.05 Total Protein 5.9 Albumin 2.8 L Globulin 3.1 Albumin/Globulin Ratio 0.9 L Arterial Blood Potassium Venous Blood Potassium Urine Color Yellow Urine Appearance Clear Urine pH 6.0 Ur Specific [place] 1.010 Urine Protein Negative Urine Glucose (UA) Negative Urine Ketones Negative Urine Blood Moderate H Urine Nitrate Negative Urine Bilirubin Negative Urine Urobilinogen 0.2 Ur Leukocyte Esterase Trace H Urine RBC 0 - 2 Urine WBC 0 - 2 Ur Epithelial Cells 0 - 2 Blood Type AB POSITIVE Antibody Screen Negative Crossmatch See Detail BBK History Checked Patient has bt 05/14/17 08:30 WBC RBC Hgb Hct MCV MCH MCHC RDW Plt Count MPV PT 68.3 H INR 5.73 H* APTT pCO2 pO2 HCO3 ABG pH ABG Total CO2 ABG O2 Saturation ABG O2 Content ABG Base Excess ABG Hemoglobin ABG Carboxyhemoglobin POC ABG HHb (Measured) ABG Methemoglobin ABG O2 Capacity ABG Potassium VBG pH VBG pCO2 VBG HCO3 VBG Total CO2 VBG O2 Sat (Calc) VBG Base Excess VBG Potassium Hgb O2 Saturation Sodium Chloride Glucose Lactate FiO2 Potassium Carbon Dioxide Anion Gap BUN Creatinine Est GFR ( Amer) Est GFR (Non-Af Amer) Random Glucose Calcium Phosphorus Magnesium Total Bilirubin AST ALT Alkaline Phosphatase Troponin I Total Protein Albumin Globulin Albumin/Globulin Ratio Arterial Blood Potassium Venous Blood Potassium Urine Color Urine Appearance Urine pH Ur Specific [place] Urine Protein Urine Glucose (UA) Urine Ketones Urine Blood Urine Nitrate Urine Bilirubin Urine Urobilinogen Ur Leukocyte Esterase Urine RBC Urine WBC Ur Epithelial Cells Blood Type Antibody Screen Crossmatch BBK History Checked Assessment & Plan - Assessment and Plan (Free Text) Assessment: Atrial fibrillation on coumadin - supratherapeutic INR CHF Dementia CKD Anemia - severe acute posing threat to patient life Plan: - Full liquid diet as tolerated - Patient currently receiving PRBC transfusion at bedside, continue to monitor H /H - Rectal exam performed today does not show any melena or evidence of active GI bleeding - Continue with PPI therapy, can discontinue drip - Patient has received multiple doses of vitamin K and FFP, monitor INR - CT imaging of chest/abd/pelvis (non-contrast) reviewed by me showing no evidence of retroperitoneal bleeding - Obtain haptoglobin, reticulocyte count. Awaiting hematology evaluation. - Patient may ultimately benefit from endoscopic evaluation following resoultion of acute medical issues and correction of coagulopathy. Will continue to monitor patient clinical course.
[2017-05-14] MEDS: Morphine 2 mg/ml ISec IVP PRN ×2 (10:52→23:15)
--- NOTE | 2017-05-14 14:23 | PN ---
DATE: SUBJECTIVE: I saw her in the Intensive Care Unit. She is resting in bed. She is having more bleeding. She is down to a hemoglobin of 5. She has had some transfusions before. She is getting more anemic. She is on IV fluids; Aricept; aspirin, we will stop the aspirin; calcium gluconate; dextrose IV; Fergon; insulin; Lasix; Lipitor; Lopressor; morphine for pain; Percocet; Protonix; vitamin K multiple doses and Xanax. PHYSICAL EXAMINATION GENERAL: She is alert and comfortable. A little bit of pain. VITAL SIGNS: Temperature 98, 112 pulse, 106/51 blood pressure, 24 respiratory rate, 100% O2 saturation. HEENT: Head is atraumatic, normocephalic. HEART: Regular rate. LUNGS: Decreased breath sounds, but clear. ABDOMEN: Soft. EXTREMITIES: No edema. LABORATORY DATA: She has a 7.1 white count; hemoglobin dropped from 8.1 down to 5.6 with transfusion and 18.4 hematocrit with 226,000 platelets. INR finally came down to 5.7 after multiple vitamin K, it was as high as 17. She has a 141 sodium; potassium 5.9, I will give her Kayexalate but we are going to watch her thoroughly and her stools and her intestines to avoid a better GI bleed. We will give her insulin N. She also has BUN of 99, creatinine 1.9. I will call in Renal and GI. Calcium is 8.9. AST 24, ALT 32, alkaline phosphatase 312. All troponins are 0.05, indeterminate. PLAN: She has multiple consults. Sees Hematology and Oncology, Surgery, Cardiology, Renal, GI, technical staff engineer. We will continue aggressive treatment and care in this nice 81-year-old, I will change her to an inpatient. We will check her labs tomorrow and INRs tomorrow. She will probably need physical therapy when she is out of the technical staff engineer care unit when she is more stable and she is having a coagulopathy with severe anemia. Marco Farris DO
[2017-05-14] MEDS ORDERED: Darbepoetin Alfa 60 mcg/ml Inj SC ONE (15:15)
--- NOTE | 2017-05-14 15:19 | CP.PCM.CON ---
History of Present Illness - History of Present Illness History of Present Illness: Nephrology Consultation: Assessment: critical PATRICIA likely due to low BP/hemodynamic injury with hyperkalemia and acidosis severe symptomatic anemia Chronic Kidney Disease Stage 3 (N18.3) with 322 mg proteinuria possibly due to HTN, age related decline, and s/p Rt nephrectomy due to hx of RCC Hypertension controlled (I12.9) Vit D insufficiency with secondary hyperparathyroidism hx of severe pulmonary HTN (RVSP 81 mm Hg) and moderate to severe LVH hx of dementia bradycardia s/p PPM Plan no acute need of renal replacement therapy at this time BP on low side, hold BP meds, no ACEI or ARB due to PATRICIA and hyperkalemia. maintain hemodynamic stable. avoid hypotension pt will benefit from IVF such as NS @ 60-75 ml/hr, hold diuretics. no clinical or radiological evidence of fluid overload at this time. anemia management: PRBC today: started on iron 324 mg TID and MVI. dose of aransep 60 mcg today GI following. heme consulted will check SPEP/PAVITHRA and serum FLC assay as well Dose meds/antibiotics for reduced GFR. Avoid fleets enema/magnesium based laxatives. Avoid nephrotoxins/NSAIDs/IV iodinated contrast (unless emergent) Further work up as per primary team Thanks for allowing me to participate in care of your patient. will follow with you. Please call if any Qs Dr Jt Lemon Office: [phone] Reason for consult: CKD and PATRICIA HPI: Pt is a 81 y/o F with hx of hypertension (20 years) , renal cell cancer s/ p unilateral total nephrectomy, CKD stage 3 with baseline cr 1.4-1.7 since 2017 but intermittent episodes of PATRICIA, chronic anemia, A fib, bradycardia s/p PPM admitted with SOB, and severe anemia. seen for renal consult now she feels better. improved SOB. denies chest pain/nausea or urinary complaints. rest all other negative. ROS: denies CP/nausea/vomitting/pain abdomen or urine complaints. SOB improved all other negative except as in HPI Physical Examination: General Appearance: Comfortable, in no acute respiratory distress, co-operative . Vitals reviewed and noted as below Head; Atraumatic, normocephalic ENT: no ulcers no thrush. Tongue is midline. Oropharynx: no rash or ulcers. EYES: Pupils are equal, round and reactive to light accommodation. Eye muscles and extraocular movement intact. Sclera is anicteric. Neck; supple no lymphadenopathy, no thyromegaly or bruit Lungs: Normal respiratory rate/effort. Breath sounds bilateral equal and with bibasal crackles Heart: Normal rate. s1s2 normal. No rub or gallop. has PPM Extremities: no edema. No varicose veins Neurological: Patient is alert, awake and oriented x3 No other focal deficit. Strength bilateral appropriate and equal Skin: Warm and dry. Normal turgor. No rash. Palpitation: Normal elasticity for age Abdomen: Abdomen is soft. Bowel sounds +. There is no abdominal tenderness, no guarding/rigidity or organomegaly Psych: limited insight and has normal affect/mood MSK: no joint tenderness or swelling. Digits and nails normal, no deformity : kidney or bladder not palpable Labs/imaging/EKG reviewed. Past medical history, past surgical history,social history, allergy reviewed and noted as below FAMILy HX; no hx of CKD. non contributory work up: CT 2017: s/p Rt nephrectomy, left kidney unremarkable Vit D 35 PTH 70 TSAT 10% Ferritin 30 Past Patient History - Infectious Disease Hx of Infectious Diseases: None - Tetanus Immunizations Tetanus Immunization: >10 years Ago - Past Medical History & Family History Past Medical History?: Yes - Past Social History Smoking Status: Former Smoker Alcohol: None Drugs: Denies - CARDIAC Hx Cardiac Disorders: Yes Hx Cardia Arrhythmia: Yes (AFIB) Hx Congestive Heart Failure: Yes Hx Hypertension: Yes Other/Comment: + R sided pacemaker - PULMONARY Hx Respiratory Disorders: Yes (USED TO SMOKE 6 CIG A DAY) - NEUROLOGICAL Hx Neurological Disorder: Yes Hx Dementia: Yes Hx Dizziness: Yes (SYNCOPE) - HEENT Hx HEENT Problems: Yes (glasses) - RENAL Hx Chronic Kidney Disease: Yes - ENDOCRINE/METABOLIC Hx Endocrine Disorders: No - HEMATOLOGICAL/ONCOLOGICAL Hx Blood Disorders: Yes Hx Anemia: Yes - INTEGUMENTARY Hx Dermatological Problems: No - MUSCULOSKELETAL/RHEUMATOLOGICAL Hx Musculoskeletal Disorders: Yes Hx Arthritis: Yes Hx Falls: Yes Hx Unsteady Gait: Yes (CANE) - GASTROINTESTINAL Hx Gastrointestinal Disorders: Yes Hx Gastroesophageal Reflux: Yes - GENITOURINARY/GYNECOLOGICAL Hx Genitourinary Disorders: No - PSYCHIATRIC Hx Psychophysiologic Disorder: Yes Hx Anxiety: Yes Hx Substance Use: No - SURGICAL HISTORY Hx Surgeries: Yes Other/Comment: Pacemaker placement - ANESTHESIA Hx Anesthesia: Yes Hx Anesthesia Reactions: No Hx Malignant Hyperthermia: No Meds Allergies/Adverse Reactions: Allergies Allergy/AdvReac Type Severity Reaction Status Date / Time No Known Allergies Allergy Verified 05/13/17 15:40 - Medications Medications: Current Medications Alprazolam (Xanax) 0.5 mg PO BID PRN; Protocol PRN Reason: Anxiety Stop: 05/20/17 17:14 Last Admin: 05/13/17 18:34 Dose: 0.5 mg Atorvastatin Calcium (Lipitor) 20 mg PO DAILY [facility] Last Admin: 05/14/17 09:58 Dose: Not Given Diltiazem HCl (Cardizem) 60 mg PO TID [facility] Last Admin: 05/14/17 14:11 Dose: 60 mg Donepezil HCl (Aricept) 10 mg PO HS [facility] Last Admin: 05/13/17 21:20 Dose: 10 mg Ferrous Gluconate (Fergon) 324 mg PO TID [facility] Last Admin: 05/14/17 14:11 Dose: 324 mg Furosemide (Lasix) 20 mg IVP DAILY [facility] Last Admin: 05/13/17 18:37 Dose: Not Given Sodium Chloride (Sodium Chloride 0.45%) 1,000 mls @ 30 mls/hr IV .Q24H [facility] Last Admin: 05/13/17 18:40 Dose: Not Given Metoprolol Tartrate (Lopressor) 12.5 mg PO BID [facility] Last Admin: 05/13/17 18:34 Dose: 12.5 mg Morphine Sulfate (Morphine) 1 mg IVP Q4H PRN PRN Reason: Pain, moderate (4-7) Last Admin: 05/14/17 10:52 Dose: 1 mg Pantoprazole Sodium (Protonix Ec Tab) 40 mg PO 0600 [facility] Last Admin: 05/14/17 06:12 Dose: 40 mg Results - Vital Signs Recent Vital Signs: Last Vital Signs Temp 97.2 F L 05/14/17 13:18 Pulse 119 H 05/14/17 14:11 Resp 27 H 05/14/17 13:45 BP 114/68 05/14/17 14:11 Pulse Ox 100 05/14/17 13:45 - Labs Result Diagrams: 05/14/17 04:00 05/14/17 08:30
--- NOTE | 2017-05-14 15:26 | CON ---
DATE: 05/14/2017 CARDIOLOGY CONSULTATION HISTORY: The patient is an 81-year-old woman with one of multiple admissions. This one is for dyspnea. She is found to have a hemoglobin of 5. The patient denies bleeding, either from the GI tract of from the urine. The patient's past medical history is notable for history of marked bradycardia in which pacemaker was placed. She currently presents with atrial flutter. Her last cardiac evaluation revealed good LV function with marked pulmonary hypertension. REVIEW OF SYSTEMS: Negative. Her breathing is much improved after blood transfusions. PHYSICAL EXAMINATION: VITAL SIGNS: Blood pressure is 128/55, heart rate is 120, atrial flutter. NECK: Negative JVD. LUNGS: Decreased breath sounds. HEART: Reveals S1, S2. EXTREMITIES: Without edema. LABORATORY DATA: Hemoglobin is 5.6. Chemistries: BUN and creatinine are 99 and 1.9. IMPRESSION: 1. Dyspnea secondary to #2. 2. Marked anemia. 3. Atrial flutter. 4. History of bradycardia. 5. History of pacemaker placement. 6. Marked renal insufficiency with prerenal azotemia. 7. Transient hypotension. 8. Pulmonary hypertension. PLAN: I would restart her beta-blockers today. I would avoid diuretics, which may explain why the patient was hypotensive. Oswald Fonseca MD
[2017-05-14 15:54] LABS: BASO # 0.01 K/mm3 (0.0-2.0); BASO % 0.2 % (0.0-3.0); EOS # 0.1 (0.0-0.7); EOS % 0.8 % (1.5-5.0); GRAN # 4.36 (1.4-6.5); GRAN % 72.8 % (50.0-68.0); LYMPH # 1.1 (1.2-3.4); MEAN CELL VOLUME 84.1 fl (80.0-105.0); MEAN CORPUSCULAR HEMOGLOBIN 27.1 pg (25.0-35.0); MEAN CORPUSCULAR HGB CONC 32.2 g/dl (31.0-37.0); MEAN PLATELET VOLUME 9.6 fl (7.0-11.0); MONO # 0.5 (0.1-0.6); MONO % 8.2 % (1.0-6.0); RBC 3.14 10^6/uL (3.5-6.1); RED CELL DISTRIBUTION WIDTH 19.4 % (11.5-14.5)
[2017-05-14 15:57] LABS: INR 1.66 (0.93-1.08); PROTHROMBIN TIME 19.1 SECONDS (9.4-12.5)
[2017-05-14 15:58] LABS: HEMOGLOBIN 8.5 g/dL (12.0-16.0)
[2017-05-14 16:13] LABS: ALBUMIN 3.3 g/dL (3.0-4.8); CALCIUM 10.1 mg/dL (8.4-10.5)
[2017-05-14] MEDS: Sodium Chloride 0.9% 1,000 ML IV SCH (17:13)
--- NOTE | 2017-05-14 17:33 | CARD ---
APPROVED REPORT EKG Measurement Heart [id number] <Conclusion> Wide QRS tachycardia, possibly Atrial Flutter with 2:1 conduction Right bundle branch block Left anterior fascicular block Bifascicular block Moderate voltage criteria for LVH, may be normal variant T wave abnormality, consider lateral ischemia Abnormal ECG
--- NOTE | 2017-05-14 17:39 | CARD ---
APPROVED REPORT EKG Measurement Heart [id number] [id number] <Conclusion> Atrial Flutter with variable AV conduction Right bundle branch block Left anterior fascicular block Bifascicular block Left ventricular hypertrophy with repolarization abnormality Cannot rule out Septal infarct, age undetermined Abnormal ECG
--- NOTE | 2017-05-14 19:18 | CON ---
HEMATOLOGY CONSULTATION HISTORY OF PRESENT ILLNESS: This is an 81-year-old lady with severely elevated PT, PTT and anemia. The patient was admitted to the hospital because of severe weakness and was found to be severely anemic, she is on Coumadin as well. She has a pacemaker for which she is on anticoagulation. She also has a history of CHF, renal insufficiency, anemia, etc. She is taking the warfarin, it is unclear as to whether she was taking it properly or not. In any event, she comes in now for severe weakness and was found to have the anemia. PHYSICAL EXAMINATION: SKIN: No petechiae, no bruises. No telangiectasia. HEENT: No mucosal bleeding, anicteric. NODES: Nonpalpable in the axillary, cervical, supraclavicular, or inguinal regions. LUNGS: Clear at present. The patient is able to lie flat. HEART: S1 and S2. ABDOMEN: Shows no liver, no spleen, no tenderness, no rebound, no ascites. EXTREMITIES: No edema. CENTRAL NERVOUS SYSTEM: Plantar's are downgoing bilaterally. LABORATORY DATA: Shows a hemoglobin initially of 8.1 with MCV of 82, this has dropped down to 5.6 today; her platelet count is 226; white count is 7.1. The INR on admission was 15, it went up to 17 and today is 15.5, status post some vitamin K. ASSESSMENT AND PLAN: At this point, we will give her 2 units of blood as soon as possible. I do not see the bleed, but possibly she bled before she came into the hospital. In any event, we will give her 2 units of packed cells and also give her 2 units of fresh frozen plasma and then repeat the PT, PTT until we can bring it down. Also, the vitamin K will kick in over the next couple of days. Her BUN is 98 and creatinine 1.7, so the hemoglobin is probably even lower that she would probably need additional amount of packed cells. So, for now, in summary, we are going to give 2 units of packed cells, 2 units of fresh frozen, and reevaluate if the hemoglobin is still low as she gets hydrated, she may need some further packed cells. We will try to put the fresh frozen plasma until the INR is down to about 3. Jesse Barahona MD [facility] # [id number]
[2017-05-14 22:30] LABS: BASO # 0.02 K/mm3 (0.0-2.0); BASO % 0.3 % (0.0-3.0); EOS # 0.1 (0.0-0.7); EOS % 1.9 % (1.5-5.0); GRAN # 4.99 (1.4-6.5); GRAN % 69.2 % (50.0-68.0); HEMOGLOBIN 7.6 g/dL (12.0-16.0); LYMPH # 1.4 (1.2-3.4); LYMPH % 19.5 % (22.0-35.0); MEAN CELL VOLUME 83.8 fl (80.0-105.0); MEAN CORPUSCULAR HEMOGLOBIN 27.3 pg (25.0-35.0); MEAN CORPUSCULAR HGB CONC 32.6 g/dl (31.0-37.0); MEAN PLATELET VOLUME 9.3 fl (7.0-11.0); MONO # 0.7 (0.1-0.6); MONO % 9.1 % (1.0-6.0); RBC 2.78 10^6/uL (3.5-6.1); WHITE BLOOD COUNT 7.2 10^3/ul (4.5-11.0)
[2017-05-15 05:48] LABS: HEMOGLOBIN 7.6 g/dL (12.0-16.0); MEAN CELL VOLUME 84.9 fl (80.0-105.0); MEAN CORPUSCULAR HEMOGLOBIN 27.2 pg (25.0-35.0); MEAN CORPUSCULAR HGB CONC 32.1 g/dl (31.0-37.0); MEAN PLATELET VOLUME 9.5 fl (7.0-11.0); RBC 2.79 10^6/uL (3.5-6.1); RED CELL DISTRIBUTION WIDTH 20.2 % (11.5-14.5); WHITE BLOOD COUNT 6.2 10^3/ul (4.5-11.0)
[2017-05-15 06:03] LABS: ALBUMIN 2.8 g/dL (3.0-4.8); CALCIUM 9.3 mg/dL (8.4-10.5)
--- NOTE | 2017-05-15 07:14 | CP.PCM.PN ---
<Blanka Kaplan - Last Filed: 05/15/17 09:40> Subjective - Date & Time of Evaluation Date of Evaluation: 05/15/17 Time of Evaluation: 08:00 - Subjective Subjective: GI Fellow PGY 4 Progress Note Pt seen and evaluated at bedside, pt doing well with no issues overnight. No active GI bleeding. Tolerating diet. ROS: A 12pt ROS was negative except as above. Objective - Vital Signs/Intake and Output Vital Signs (last 24 hours): Temp Pulse Resp BP Pulse Ox 98 F 89 22 92/33 L 100 05/15/17 00:00 05/15/17 02:00 05/14/17 23:45 05/14/17 23:04 05/14/17 23:45 - Medications Medications: Current Medications Alprazolam (Xanax) 0.5 mg PO BID PRN; Protocol PRN Reason: Anxiety Stop: 05/20/17 17:14 Last Admin: 05/13/17 18:34 Dose: 0.5 mg Atorvastatin Calcium (Lipitor) 20 mg PO DAILY [facility] Last Admin: 05/14/17 09:58 Dose: Not Given Diltiazem HCl (Cardizem) 60 mg PO TID [facility] Last Admin: 05/14/17 18:38 Dose: Not Given Donepezil HCl (Aricept) 10 mg PO HS [facility] Last Admin: 05/14/17 22:45 Dose: 10 mg Ferrous Gluconate (Fergon) 324 mg PO TID [facility] Last Admin: 05/14/17 17:20 Dose: 324 mg Furosemide (Lasix) 20 mg IVP DAILY [facility] Last Admin: 05/13/17 18:37 Dose: Not Given Sodium Chloride (Sodium Chloride 0.9%) 1,000 mls @ 60 mls/hr IV .[id number] [facility] Last Admin: 05/14/17 17:13 Dose: 60 mls/hr Acetaminophen (Ofirmev) 1,000 mg in 100 mls @ 400 mls/hr IVPB Q6H PRN PRN Reason: Pain, moderate (4-7) Stop: 05/16/17 17:36 Last Admin: 05/14/17 17:46 Dose: 400 mls/hr Metoprolol Tartrate (Lopressor) 12.5 mg PO BID [facility] Last Admin: 05/14/17 17:20 Dose: 12.5 mg Morphine Sulfate (Morphine) 1 mg IVP Q4H PRN PRN Reason: Pain, moderate (4-7) Last Admin: 05/14/17 23:15 Dose: 1 mg Pantoprazole Sodium (Protonix Ec Tab) 40 mg PO 0600 [facility] Last Admin: 05/14/17 06:12 Dose: 40 mg Sodium Bicarbonate (Sodium Bicarbonate Tab) 1,300 mg PO BID [facility] Last Admin: 05/14/17 17:18 Dose: 1,300 mg Vitamin B Complex/Vit C/Folic Acid (Nephro-Haider) 1 tab PO 0800 [facility] - Labs Labs: 05/15/17 05:30 05/15/17 05:30 PT 19.1 SECONDS (9.4-12.5) H 05/14/17 15:35 INR 1.66 (0.93-1.08) H 05/14/17 15:35 APTT 67.0 Seconds (25.1-36.5) H 05/14/17 04:00 - Constitutional Appears: Non-toxic, No Acute Distress, Cachectic - Head Exam Head Exam: ATRAUMATIC, NORMAL INSPECTION, NORMOCEPHALIC - Eye Exam Eye Exam: EOMI, Normal appearance, PERRL Pupil Exam: PERRL - ENT Exam ENT Exam: Mucous Membranes Moist - Neck Exam Neck Exam: Full ROM - Respiratory Exam Respiratory Exam: Decreased Breath Sounds, NORMAL BREATHING PATTERN - Cardiovascular Exam Cardiovascular Exam: Irregular Rhythm - GI/Abdominal Exam GI & Abdominal Exam: Soft, Normal Bowel Sounds. absent: Distended, Firm, Guarding, Tenderness - Back Exam Back Exam: NORMAL INSPECTION - Neurological Exam Neurological Exam: Alert, Awake - Psychiatric Exam Psychiatric exam: Normal Affect, Normal Mood - Skin Skin Exam: Dry, Intact, Normal Color, Warm Assessment and Plan - Assessment and Plan (Free Text) Assessment: This is a 81yF with hx of CKS and Afib on OAC coumadin presenting with CP, weakness and SOB with CUSTOMER SERVICE SPECIALIST called for AMS and hypotension. 1. Supratherapeutic INR 2. Atrial fibrillation on coumadin 3. Anemia 4. CKD 5. Hx of AVMs and PUD Plan: -Continue supportive care - Full liquid diet as tolerated - s/p 2U PRBC transfusion, Hgb stable at 7.6, monitor H/H - No melena/hematochezia or evidence of active GI bleeding - Continue with PPI IV BID - s/p multiple doses of vitamin K and FFP, INR 1.6, monitor INR - CT imaging with no evidence of retroperitoneal bleeding - Hematology evaluation pending - Pt has hx of AVMs and PUD with EGD/Colonoscopy in 2017 - Patient will need endoscopic evaluation, will continue to monitor patient clinical course and make further recommendations <Silvano Ross - Last Filed: 05/15/17 15:21> Objective - Vital Signs/Intake and Output Vital Signs (last 24 hours): Temp Pulse Resp BP Pulse Ox 98.1 F 65 15 88/47 L 100 05/15/17 14:58 05/15/17 14:58 05/15/17 14:58 05/15/17 14:58 05/15/17 07:45 Intake and Output: 05/15/17 05/15/17 06:59 18:59 Intake Total 0 Balance 0 - Medications Medications: Current Medications Alprazolam (Xanax) 0.5 mg PO BID PRN; Protocol PRN Reason: Anxiety Stop: 05/20/17 17:14 Last Admin: 05/15/17 13:50 Dose: 0.5 mg Atorvastatin Calcium (Lipitor) 20 mg PO DAILY [facility] Last Admin: 05/15/17 10:39 Dose: 20 mg Diltiazem HCl (Cardizem) 60 mg PO TID [facility] Last Admin: 05/15/17 13:50 Dose: 60 mg Donepezil HCl (Aricept) 10 mg PO HS [facility] Last Admin: 05/14/17 22:45 Dose: 10 mg Enoxaparin Sodium (Lovenox) 30 mg SC DAILY [facility] PRN Reason: Protocol Ferrous Gluconate (Fergon) 324 mg PO TID [facility] Last Admin: 05/15/17 13:50 Dose: 324 mg Furosemide (Lasix) 20 mg IVP DAILY [facility] Last Admin: 05/13/17 18:37 Dose: Not Given Furosemide (Lasix) 40 mg IVP ONCE ONE Stop: 05/15/17 16:01 Sodium Chloride (Sodium Chloride 0.9%) 1,000 mls @ 60 mls/hr IV .[id number] [facility] Last Admin: 05/15/17 10:42 Dose: 60 mls/hr Acetaminophen (Ofirmev) 1,000 mg in 100 mls @ 400 mls/hr IVPB Q6H PRN PRN Reason: Pain, moderate (4-7) Stop: 05/16/17 17:36 Last Admin: 05/14/17 17:46 Dose: 400 mls/hr Metoprolol Tartrate (Lopressor) 12.5 mg PO BID [facility] Last Admin: 05/15/17 10:40 Dose: 12.5 mg Oxycodone/Acetaminophen (Percocet 2.5/325 Mg Tab) 1 tab PO Q4H PRN PRN Reason: Pain, moderate (4-7) Pantoprazole Sodium (Protonix Inj) 40 mg IVP Q12 [facility] Last Admin: 05/15/17 10:42 Dose: 40 mg Sodium Bicarbonate (Sodium Bicarbonate Tab) 1,300 mg PO BID [facility] Last Admin: 05/15/17 10:39 Dose: 1,300 mg Vitamin B Complex/Vit C/Folic Acid (Nephro-Haider) 1 tab PO 0800 [facility] Last Admin: 05/15/17 10:39 Dose: 1 tab - Labs Labs: 05/15/17 05:30 05/15/17 05:30 PT 19.1 SECONDS (9.4-12.5) H 05/14/17 15:35 INR 1.66 (0.93-1.08) H 05/14/17 15:35 APTT 67.0 Seconds (25.1-36.5) H 05/14/17 04:00 Attending/Attestation - Attestation I have personally seen and examined this patient.: Yes I have fully participated in the care of the patient.: Yes I have reviewed all pertinent clinical information, including history, physical exam and plan: Yes Notes (Text): 05/15/17 15:05 Patient seen at bedside. This is a 81 yr old F with Atrial fibrillation on coumadin admitted with supratherapeutic INR now subtherapeutic after FFP. GI consulted for anemia s/p 2 units PRBC. Also with prerenal azotemia. No GI bleeding. Has history of EGD/colonoscopy in the past with Dr Gaytan - with multiple antral ulcers and AVM s/p heater probe. Rectal exam with brown stool. CTAP with no retroperitoneal bleeding. Obtain haptoglobin, reticulocyte count. Awaiting hematology evaluation. Continue PPI and diet as tolerated. No urgent indication for endoscopic evaluation. Can restart anti coagulation a sindicated by data management specialist as no evidence of GI bleeding. She was given Epogen in the past. Will benefit from hematology consult. Will sign off at this time. Please reconsult prn 05/15/17 15:20
--- NOTE | 2017-05-15 08:41 | PN ---
DATE: 05/15/2017 PHOTOENGRAVING PHOTOGRAPHER NOTE LOCATION: [facility]. SUBJECTIVE: The patient is resting in bed, O2 via nasal cannula. No complaints of any pain this morning. She has no obvious bleeding sites and no fever, chills, nausea or vomiting. No abdominal pain, chest pain. No wheezing or congestion. The patient is very comfortable, looking forward to eating breakfast. PHYSICAL EXAMINATION: VITAL SIGNS: As far as her physical exam note that her temperature is 98, pulse is 89, respirations of 22, BP is 92/33. SKIN: Warm and dry. HEENT: Head is atraumatic, normocephalic. Eyes reactive to light. Ear, nose and throat seemed to be within normal limits. NECK: Supple. No JVD. No thyroid enlargement. No lymph nodes. HEART: Has regular rate and rhythm. Normal S1, S2. LUNGS: Reveal good breath sounds bilaterally. ABDOMEN: Soft. Decreased bowel sounds. GENITALIA AND RECTAL: Deferred. MUSCULOSKELETAL: No joint deformities. EXTREMITIES: Reveal no edema. NEUROLOGICALLY: She seems to be grossly intact. LABORATORY DATA: As far as her laboratories are concerned, her white count is 6.2, hemoglobin is 7.6, hematocrit 23.7 with platelets of 155,000. The patient's PT is 19.1, INR is 1.66. Sodium is 143, potassium 4.3, chloride 110, CO2 of 28 with a BUN of 81, creatinine of 1.6 and a glucose of 105. IMPRESSION: As far as my impression, this patient has presented with supratherapeutic INR and severe symptomatic anemia, hypotension. The patient has acute renal insufficiency as well as history of hypertension, pulmonary hypertension as well as dementia and renal cell carcinoma. PLAN: As far as our plan, we will continue to follow closely. The patient is on IV solutions and we will follow her hemoglobin each a.m. The patient is on her Aricept because she does have a history of dementia and is getting ferrous gluconate as well as her Lipitor and vitamin B complex. She is continued on her BP meds as well. Virgilio Amanda MD [facility] # [id number]
--- NOTE | 2017-05-15 10:18 | CP.PCM.PN ---
Subjective - Date & Time of Evaluation Date of Evaluation: 05/15/17 Time of Evaluation: 10:16 - Subjective Subjective: Nephrology Consultation: Assessment: critical PATRICIA likely due to low BP/hemodynamic injury with hyperkalemia and acidosis ( improved) severe symptomatic anemia Chronic Kidney Disease Stage 3 (N18.3) with 322 mg proteinuria possibly due to HTN, age related decline, and s/p Rt nephrectomy due to hx of RCC Hypertension controlled (I12.9) Vit D insufficiency with secondary hyperparathyroidism hx of severe pulmonary HTN (RVSP 81 mm Hg) and moderate to severe LVH hx of dementia bradycardia s/p PPM Plan no acute need of renal replacement therapy at this time no ACEI or ARB due to PATRICIA and hyperkalemia. maintain hemodynamic stable. avoid hypotension. pt getting meds to control A fib rate agree with IVF as NS @ 60-75 ml/hr, hold diuretics. no clinical or radiological evidence of fluid overload at this time. anemia management: PRBC as needed, started on iron 324 mg TID and MVI. dose of aransep 60 mcg 05/14/17 GI following. heme consulted will check SPEP/PAVITHRA and serum FLC assay as well Dose meds/antibiotics for reduced GFR. Avoid fleets enema/magnesium based laxatives. Avoid nephrotoxins/NSAIDs/IV iodinated contrast (unless emergent) Further work up as per primary team Thanks for allowing me to participate in care of your patient. will follow with you. Please call if any Qs Dr Jt Lemon Office: [phone] Reason for consult: CKD and PATRICIA HPI: Pt is a 81 y/o F with hx of hypertension (20 years) , renal cell cancer s/ p unilateral total nephrectomy, CKD stage 3 with baseline cr 1.4-1.7 since 2017 but intermittent episodes of PATRICIA, chronic anemia, A fib, bradycardia s/p PPM admitted with SOB, and severe anemia. seen for renal consult now she feels better. improved SOB. denies chest pain/nausea or urinary complaints. rest all other negative. ROS: denies CP/nausea/vomitting/pain abdomen or urine complaints. SOB resolved all other negative except as in HPI Physical Examination: General Appearance: Comfortable, in no acute respiratory distress, co-operative . Vitals reviewed and noted as below Head; Atraumatic, normocephalic ENT: no ulcers no thrush. Tongue is midline. Oropharynx: no rash or ulcers. EYES: Pupils are equal, round and reactive to light accommodation. Eye muscles and extraocular movement intact. Sclera is anicteric. Neck; supple no lymphadenopathy, no thyromegaly or bruit Lungs: Normal respiratory rate/effort. Breath sounds bilateral equal and with bibasal crackles Heart: Increased rate. s1s2 normal. No rub or gallop. has PPM and A fib Extremities: no edema. No varicose veins Neurological: Patient is alert, awake and oriented x3 No other focal deficit. Strength bilateral appropriate and equal Skin: Warm and dry. Normal turgor. No rash. Palpitation: Normal elasticity for age Abdomen: Abdomen is soft. Bowel sounds +. There is no abdominal tenderness, no guarding/rigidity or organomegaly Psych: limited insight and has normal affect/mood MSK: no joint tenderness or swelling. Digits and nails normal, no deformity : kidney or bladder not palpable Labs/imaging/EKG reviewed. Past medical history, past surgical history,social history, allergy reviewed and noted as below FAMILy HX; no hx of CKD. non contributory work up: CT 2017: s/p Rt nephrectomy, left kidney unremarkable Vit D 35 PTH 70 TSAT 10% Ferritin 30 Objective - Vital Signs/Intake and Output Vital Signs (last 24 hours): Temp Pulse Resp BP Pulse Ox 98.6 F 85 19 94/50 L 100 05/15/17 04:00 05/15/17 07:45 05/15/17 07:45 05/15/17 07:00 05/15/17 07:45 - Medications Medications: Current Medications Alprazolam (Xanax) 0.5 mg PO BID PRN; Protocol PRN Reason: Anxiety Stop: 05/20/17 17:14 Last Admin: 05/13/17 18:34 Dose: 0.5 mg Atorvastatin Calcium (Lipitor) 20 mg PO DAILY [facility] Last Admin: 05/14/17 09:58 Dose: Not Given Diltiazem HCl (Cardizem) 60 mg PO TID [facility] Last Admin: 05/14/17 18:38 Dose: Not Given Donepezil HCl (Aricept) 10 mg PO [facility] Last Admin: 05/14/17 22:45 Dose: 10 mg Ferrous Gluconate (Fergon) 324 mg PO TID [facility] Last Admin: 05/14/17 17:20 Dose: 324 mg Furosemide (Lasix) 20 mg IVP DAILY [facility] Last Admin: 05/13/17 18:37 Dose: Not Given Sodium Chloride (Sodium Chloride 0.9%) 1,000 mls @ 60 mls/hr IV .[id number] [facility] Last Admin: 05/14/17 17:13 Dose: 60 mls/hr Acetaminophen (Ofirmev) 1,000 mg in 100 mls @ 400 mls/hr IVPB Q6H PRN PRN Reason: Pain, moderate (4-7) Stop: 05/16/17 17:36 Last Admin: 05/14/17 17:46 Dose: 400 mls/hr Metoprolol Tartrate (Lopressor) 12.5 mg PO BID [facility] Last Admin: 05/14/17 17:20 Dose: 12.5 mg Morphine Sulfate (Morphine) 1 mg IVP Q4H PRN PRN Reason: Pain, moderate (4-7) Last Admin: 05/14/17 23:15 Dose: 1 mg Pantoprazole Sodium (Protonix Inj) 40 mg IVP Q12 [facility] Sodium Bicarbonate (Sodium Bicarbonate Tab) 1,300 mg PO BID [facility] Last Admin: 05/14/17 17:18 Dose: 1,300 mg Vitamin B Complex/Vit C/Folic Acid (Nephro-Haider) 1 tab PO 0800 [facility] - Labs Labs: 05/15/17 05:30 05/15/17 05:30 PT 19.1 SECONDS (9.4-12.5) H 05/14/17 15:35 INR 1.66 (0.93-1.08) H 05/14/17 15:35 APTT 67.0 Seconds (25.1-36.5) H 05/14/17 04:00
[2017-05-15] MEDS: Multivitamin Vitamin B Complex (Nephro-Vite) Tab PO SCH (10:39)
[2017-05-15] MEDS: Sodium Chloride 0.9% 1,000 ML IV SCH (10:42)
[2017-05-15] MEDS: Morphine 2 mg/ml ISec IVP PRN (10:52)
[2017-05-15] MEDS: Oxycodone/Acetaminophen 2.5/325 mg Tab PO PRN (17:17)
--- NOTE | 2017-05-15 18:11 | PN ---
DATE: SUBJECTIVE: I saw Sarah resting comfortably in bed. She is doing quite well. She feels well. No chest pain, no shortness of breath, no abdominal pain, but she does have pain. She does not like the morphine. She wants to go back on her Percocet, so put her on the Percocet 2.5 one q. 4 p.r.n. pain. She is also on Xanax, she has vitamin K for the elevated INR, Tylenol, IV fluids, sodium bicarbonate, Protonix. I have added Lovenox, her INR dropped and we are going to give her some blood today for hemoglobin drops, she is on Lipitor. She has gotten one dose of Lasix today in between the 2 units of packed red blood cells. She is on Cardizem, Aricept. PHYSICAL EXAMINATION: VITAL SIGNS: 98.6 temp, 96/49 blood pressure, pulse, 16 respiratory rate, 100% O2 sat on room air. HEENT: Head is atraumatic, normocephalic. Throat is moist. NECK: Supple. HEART: Regular rate. LUNGS: Decreased breath sounds, but clear. ABDOMEN: Soft, nontender. Positive bowel sounds. EXTREMITIES: No edema. NEUROLOGIC: She is very thin and frail. LABORATORY DATA: She has a 143 sodium, potassium 4.3, BUN 81, creatinine 1.6, GFR is 31, calcium is 9.3, sugar is 105, phosphorus 3.9, magnesium 2, total bili is 0.6, AST is 25, ALT is 26, alk phos 51, total protein is 5.7. Last troponin 0.05 indeterminate. White count 6.2, hemoglobin dropped to 7.6, 2 more units of packed red blood cells today with Lasix 40 IV x1 dose in between the 2 units, platelets of 155. INR is down to 1.66, we will start her on Lovenox. I discussed this with Hematology, to restart the Coumadin for her atrial flutter. She is being seen by Renal, senior bookkeeper, Cardiology, GI, Hematology, Surgery. We will continue with aggressive treatment and care on Sarah Baker. Check her labs tomorrow. Marco Farris DO [facility]
[2017-05-16 06:09] LABS: HEMOGLOBIN 9.5 g/dL (12.0-16.0); MEAN CELL VOLUME 86.6 fl (80.0-105.0); MEAN CORPUSCULAR HEMOGLOBIN 27.1 pg (25.0-35.0); MEAN CORPUSCULAR HGB CONC 31.4 g/dl (31.0-37.0); MEAN PLATELET VOLUME 10.1 fl (7.0-11.0); RBC 3.5 10^6/uL (3.5-6.1); RED CELL DISTRIBUTION WIDTH 19.8 % (11.5-14.5); WHITE BLOOD COUNT 7.1 10^3/ul (4.5-11.0)
[2017-05-16 06:20] LABS: INR 1.24 (0.93-1.08); PROTHROMBIN TIME 14.3 SECONDS (9.4-12.5)
[2017-05-16 06:26] LABS: ALBUMIN 3.1 g/dL (3.0-4.8); CALCIUM 9.2 mg/dL (8.4-10.5)
[2017-05-16] MEDS: Sodium Chloride 0.9% 1,000 ML IV SCH ×2 (07:22→07:23)
[2017-05-16] MEDS: Oxycodone/Acetaminophen 2.5/325 mg Tab PO PRN ×3 (07:58→21:22)
[2017-05-16] MEDS: Multivitamin Vitamin B Complex (Nephro-Vite) Tab PO SCH (09:59)
[2017-05-16] MEDS: Enoxaparin 30 mg Syringe SC SCH (10:00)
--- NOTE | 2017-05-16 16:14 | PN ---
DATE: SUBJECTIVE: I saw Sarah in the Intensive Care Unit. She seems to be doing quite well. She is smiling, alert, comfortable. Little bit of pain, but she is getting her medications and is helping her. She is in good spirits. PHYSICAL EXAMINATION: VITAL SIGNS: She has a 97.5 temp, 96 pulse, 106/51 blood pressure, 24 respiratory rate, 99% O2 sat on room air. HEENT: Head is atraumatic, normocephalic. HEART: Regular rate. LUNGS: Decreased breath sounds, but clear. ABDOMEN: Soft, nontender. Positive bowel sounds. EXTREMITIES: No edema. MEDICATIONS: She is currently on Aricept, Cardizem, Fergon, Lasix, Lipitor, Lopressor, Lovenox, Nephro-Haider, Tylenol, Percocet, Protonix, Xanax. LABORATORY DATA: She has a 144 sodium; potassium 4.5; BUN 63; creatinine 1.7, getting better; GFR is up to 29; calcium is 9.2; total bili is 0.5; AST is 33; ALT is 32; alk phos 57; total protein 6.2. White count 7.1, hemoglobin 9.5, hematocrit 30.3 and platelets of 170. INR is down to 1.24. ASSESSMENT AND PLAN: She is on Lovenox and she is being seen by Renal, dielectric embossing machine operator, GI, Cardiology, Hematology-Oncology and we will have to eventually put her on an anticoagulant for the atrial flutter. We will try and get her out of the Intensive Care Unit. I will continue with aggressive treatment and care and I will discuss with Hematology, Cardiology and Renal about when I could restart the Coumadin. She is here for numerous issues, supra-therapeutic INR, atrial flutter, anemia, renal insufficiency, dyspnea on exertion physical therapy next. Marco Farris DO MTDD
--- NOTE | 2017-05-16 17:32 | CP.PCM.PN ---
Subjective - Date & Time of Evaluation Date of Evaluation: 05/16/17 Time of Evaluation: 17:32 - Subjective Subjective: Nephrology Consultation: Assessment: stable PATRICIA likely due to low BP/hemodynamic injury with hyperkalemia and acidosis ( improved) severe symptomatic anemia Chronic Kidney Disease Stage 3 (N18.3) with 322 mg proteinuria possibly due to HTN, age related decline, and s/p Rt nephrectomy due to hx of RCC Hypertension controlled (I12.9) Vit D insufficiency with secondary hyperparathyroidism hx of severe pulmonary HTN (RVSP 81 mm Hg) and moderate to severe LVH hx of dementia bradycardia s/p PPM Plan no acute need of renal replacement therapy at this time no ACEI or ARB due to PATRICIA and hyperkalemia. maintain hemodynamic stable. avoid hypotension. pt getting meds to control A fib rate d/c IVF anemia management: PRBC as needed, started on iron 324 mg TID and MVI. dose of aransep 60 mcg 05/14/17 GI following. heme consulted will check SPEP/PAVITHRA and serum FLC assay as well Dose meds/antibiotics for reduced GFR. Avoid fleets enema/magnesium based laxatives. Avoid nephrotoxins/NSAIDs/IV iodinated contrast (unless emergent) Further work up as per primary team Thanks for allowing me to participate in care of your patient. will follow with you. Please call if any Qs Dr Jt Lemon Office: [phone] Reason for consult: CKD and PATRICIA HPI: Pt is a 81 y/o F with hx of hypertension (20 years) , renal cell cancer s/ p unilateral total nephrectomy, CKD stage 3 with baseline cr 1.4-1.7 since 2017 but intermittent episodes of PATRICIA, chronic anemia, A fib, bradycardia s/p PPM admitted with SOB, and severe anemia. seen for renal consult now she feels better. improved SOB. denies chest pain/nausea or urinary complaints. rest all other negative. ROS: denies CP/nausea/vomitting/pain abdomen or urine complaints. SOB resolved all other negative except as in HPI Physical Examination: General Appearance: Comfortable, in no acute respiratory distress, co-operative . Vitals reviewed and noted as below Head; Atraumatic, normocephalic ENT: no ulcers no thrush. Tongue is midline. Oropharynx: no rash or ulcers. EYES: Pupils are equal, round and reactive to light accommodation. Eye muscles and extraocular movement intact. Sclera is anicteric. Neck; supple no lymphadenopathy, no thyromegaly or bruit Lungs: Normal respiratory rate/effort. Breath sounds bilateral equal and with few bibasal crackles Heart: Increased rate. s1s2 normal. No rub or gallop. has PPM and A fib Extremities: no edema. No varicose veins Neurological: Patient is alert, awake and oriented x3 No other focal deficit. Strength bilateral appropriate and equal Skin: Warm and dry. Normal turgor. No rash. Palpitation: Normal elasticity for age Abdomen: Abdomen is soft. Bowel sounds +. There is no abdominal tenderness, no guarding/rigidity or organomegaly Psych: limited insight and has normal affect/mood MSK: no joint tenderness or swelling. Digits and nails normal, no deformity : kidney or bladder not palpable Labs/imaging/EKG reviewed. Past medical history, past surgical history,social history, allergy reviewed and noted as below FAMILy HX; no hx of CKD. non contributory work up: CT 2017: s/p Rt nephrectomy, left kidney unremarkable Vit D 35 PTH 70 TSAT 10% Ferritin 30 Objective - Vital Signs/Intake and Output Vital Signs (last 24 hours): Temp Pulse Resp BP Pulse Ox 99.1 F 63 20 118/93 H 95 05/16/17 16:00 05/16/17 17:20 05/16/17 16:00 05/16/17 17:20 05/16/17 14:30 Intake and Output: 05/16/17 05/16/17 06:59 18:59 Intake Total 1000 Output Total 1400 Balance -400 - Medications Medications: Current Medications Alprazolam (Xanax) 0.5 mg PO BID PRN; Protocol PRN Reason: Anxiety Stop: 05/20/17 17:14 Last Admin: 05/15/17 21:47 Dose: 0.5 mg Atorvastatin Calcium (Lipitor) 20 mg PO DAILY [facility] Last Admin: 05/16/17 09:59 Dose: 20 mg Diltiazem HCl (Cardizem) 60 mg PO TID [facility] Last Admin: 05/16/17 17:20 Dose: 60 mg Donepezil HCl (Aricept) 10 mg PO HS [facility] Last Admin: 05/15/17 21:47 Dose: 10 mg Enoxaparin Sodium (Lovenox) 30 mg SC DAILY [facility] PRN Reason: Protocol Last Admin: 05/16/17 10:00 Dose: 30 mg Ferrous Gluconate (Fergon) 324 mg PO TID [facility] Last Admin: 05/16/17 17:19 Dose: 324 mg Furosemide (Lasix) 20 mg IVP DAILY [facility] Last Admin: 05/13/17 18:37 Dose: Not Given Acetaminophen (Ofirmev) 1,000 mg in 100 mls @ 400 mls/hr IVPB Q6H PRN PRN Reason: Pain, moderate (4-7) Stop: 05/16/17 17:36 Last Admin: 05/14/17 17:46 Dose: 400 mls/hr Metoprolol Tartrate (Lopressor) 12.5 mg PO BID [facility] Last Admin: 05/16/17 17:19 Dose: 12.5 mg Oxycodone/Acetaminophen (Percocet 2.5/325 Mg Tab) 1 tab PO Q4H PRN PRN Reason: Pain, moderate (4-7) Last Admin: 05/16/17 14:13 Dose: 1 tab Pantoprazole Sodium (Protonix Inj) 40 mg IVP Q12 [facility] Last Admin: 05/16/17 09:57 Dose: 40 mg Vitamin B Complex/Vit C/Folic Acid (Nephro-Haider) 1 tab PO 0800 [facility] Last Admin: 05/16/17 09:59 Dose: 1 tab - Labs Labs: 05/16/17 05:00 05/16/17 05:00 PT 14.3 SECONDS (9.4-12.5) H 05/16/17 05:00 INR 1.24 (0.93-1.08) H 05/16/17 05:00 APTT 67.0 Seconds (25.1-36.5) H 05/14/17 04:00
[2017-05-17] MEDS: Oxycodone/Acetaminophen 2.5/325 mg Tab PO PRN (05:21)
[2017-05-17 07:43] LABS: HEMOGLOBIN 8.9 g/dL (12.0-16.0); MEAN CELL VOLUME 88.3 fl (80.0-105.0); MEAN CORPUSCULAR HEMOGLOBIN 27.4 pg (25.0-35.0); MEAN PLATELET VOLUME 10.3 fl (7.0-11.0); RBC 3.25 10^6/uL (3.5-6.1); RED CELL DISTRIBUTION WIDTH 19.8 % (11.5-14.5); WHITE BLOOD COUNT 6.8 10^3/ul (4.5-11.0)
[2017-05-17 07:47] LABS: INR 1.16 (0.93-1.08); PROTHROMBIN TIME 13.4 SECONDS (9.4-12.5)
[2017-05-17 07:54] LABS: ALBUMIN 3.1 g/dL (3.0-4.8); CALCIUM 9.2 mg/dL (8.4-10.5)
[2017-05-17] MEDS: Multivitamin Vitamin B Complex (Nephro-Vite) Tab PO SCH (09:21)
[2017-05-17] MEDS: Enoxaparin 30 mg Syringe SC SCH (09:23)
--- NOTE | 2017-05-17 09:26 | PN ---
DATE: 05/16/2017 SUBJECTIVE: The patient is resting in the bed with O2 via nasal cannula. No significant complaints. The patient is comfortable and no shortness of breath, cough or wheezing or chest congestion. PHYSICAL EXAMINATION VITAL SIGNS: Note that her temperature is 97.5, her pulse is 93, respirations of 24, BP is 110/76. SKIN: Warm and dry. HEENT: Head is atraumatic, normocephalic. Eyes, reactive to light. Ears, nose and throat: Seemed to be within normal limits. NECK: Supple. No JVD. No thyroid enlargement or lymph nodes. HEART: Has a regular rate and rhythm. Normal S1, S2. LUNGS: Reveal good breath sounds bilaterally. ABDOMEN: Soft, nontender. Decreased bowel sounds. GENITALIA: Deferred. RECTAL: Deferred. MUSCULOSKELETAL: No joint deformities. EXTREMITIES: Reveal no significant edema. NEUROLOGICAL: She seemed to be grossly intact. DATA: As far as her laboratories, her white count is 7.1, hemoglobin is 9.5, hematocrit 30.3, platelets of 170,000. The patient's PT is 14.3, INR is 1.24. Her sodium is 144, potassium 4.5, chloride 106, CO2 of 30, BUN of 63, creatinine of 1.7 and glucose of 106. IMPRESSION: This patient presented with supratherapeutic INR with severe symptomatic anemia and hypotension. At this time, she is normotensive and anemia has been corrected. The patient has acute renal insufficiency with hypertension, pulmonary hypertension, dementia and a history of renal cell carcinoma. PLAN: As far as our plan, we will continue to follow closely. The patient is getting IV solutions. We will follow her hemoglobin and continue with her Aricept for the dementia. The patient is getting iron as well as Lipitor and B complex. Virgilio Amanda MD
[2017-05-17 12:09] VITALS: BP 112/57; PULSE 62; TEMP 97.7
[2017-05-17 12:42] VITALS: RESP 16; O2SAT 96
--- NOTE | 2017-05-17 14:52 | CP.PCM.PN ---
Subjective - Date & Time of Evaluation Date of Evaluation: 05/17/17 Time of Evaluation: 14:51 - Subjective Subjective: Nephrology Consultation Note: Assessment: stable PATRICIA likely due to low BP/hemodynamic injury with hyperkalemia and acidosis ( improved) severe symptomatic anemia Chronic Kidney Disease Stage 3 (N18.3) with 322 mg proteinuria possibly due to HTN, age related decline, and s/p Rt nephrectomy due to hx of RCC Hypertension controlled (I12.9) Vit D insufficiency with secondary hyperparathyroidism hx of severe pulmonary HTN (RVSP 81 mm Hg) and moderate to severe LVH hx of dementia bradycardia s/p PPM Plan no acute need of renal replacement therapy at this time no ACEI or ARB due to PATRICIA and hyperkalemia. maintain hemodynamic stable. avoid hypotension. pt getting meds to control A fib rate anemia management: PRBC as needed, started on iron 324 mg TID and MVI. dose of aransep 60 mcg 05/14/17 GI following. heme consulted will check SPEP/PAVITHRA and serum FLC assay as well Dose meds/antibiotics for reduced GFR. Avoid fleets enema/magnesium based laxatives. Avoid nephrotoxins/NSAIDs/IV iodinated contrast (unless emergent) Further work up as per primary team Thanks for allowing me to participate in care of your patient. will follow with you. Please call if any Qs Dr Jt Lemon Office: [phone] Reason for consult: CKD and PATRICIA HPI: Pt is a 81 y/o F with hx of hypertension (20 years) , renal cell cancer s/ p unilateral total nephrectomy, CKD stage 3 with baseline cr 1.4-1.7 since 2017 but intermittent episodes of PATRICIA, chronic anemia, A fib, bradycardia s/p PPM admitted with SOB, and severe anemia. seen for renal consult now she feels better. improved SOB. denies chest pain/nausea or urinary complaints. rest all other negative. ROS: denies CP/nausea/vomitting/pain abdomen or urine complaints. SOB resolved all other negative except as in HPI Physical Examination: General Appearance: Comfortable, in no acute respiratory distress, co-operative . Vitals reviewed and noted as below Head; Atraumatic, normocephalic ENT: no ulcers no thrush. Tongue is midline. Oropharynx: no rash or ulcers. EYES: Pupils are equal, round and reactive to light accommodation. Eye muscles and extraocular movement intact. Sclera is anicteric. Neck; supple no lymphadenopathy, no thyromegaly or bruit Lungs: Normal respiratory rate/effort. Breath sounds bilateral equal and clear Heart: normal rate. s1s2 normal. No rub or gallop. has PPM and A fib Extremities: no edema. No varicose veins Neurological: Patient is alert, awake and oriented x3 No other focal deficit. Strength bilateral appropriate and equal Skin: Warm and dry. Normal turgor. No rash. Palpitation: Normal elasticity for age Abdomen: Abdomen is soft. Bowel sounds +. There is no abdominal tenderness, no guarding/rigidity or organomegaly Psych: limited insight and has normal affect/mood MSK: no joint tenderness or swelling. Digits and nails normal, no deformity : kidney or bladder not palpable Labs/imaging/EKG reviewed. Past medical history, past surgical history,social history, allergy reviewed and noted as below FAMILy HX; no hx of CKD. non contributory work up: CT 2017: s/p Rt nephrectomy, left kidney unremarkable Vit D 35 PTH 70 TSAT 10% Ferritin 30 Objective - Vital Signs/Intake and Output Vital Signs (last 24 hours): Temp Pulse Resp BP Pulse Ox 97.7 F 62 16 112/57 L 96 05/17/17 12:00 05/17/17 12:00 05/17/17 12:00 05/17/17 12:00 05/17/17 12:00 Intake and Output: 05/17/17 05/17/17 06:59 18:59 Intake Total 240 650 Output Total 500 Balance -260 650 - Medications Medications: Current Medications Alprazolam (Xanax) 0.5 mg PO BID PRN; Protocol PRN Reason: Anxiety Stop: 05/20/17 17:14 Last Admin: 05/16/17 21:22 Dose: 0.5 mg Apixaban (Eliquis) 2.5 mg PO Q12 [facility] PRN Reason: Protocol Atorvastatin Calcium (Lipitor) 20 mg PO DAILY [facility] Last Admin: 05/17/17 09:23 Dose: 20 mg Diltiazem HCl (Cardizem) 60 mg PO TID [facility] Last Admin: 05/17/17 09:28 Dose: 60 mg Donepezil HCl (Aricept) 10 mg PO HS [facility] Last Admin: 05/16/17 21:22 Dose: 10 mg Ferrous Gluconate (Fergon) 324 mg PO TID [facility] Last Admin: 05/17/17 09:22 Dose: 324 mg Furosemide (Lasix) 20 mg IVP DAILY [facility] Last Admin: 05/13/17 18:37 Dose: Not Given Metoprolol Tartrate (Lopressor) 12.5 mg PO BID [facility] Last Admin: 05/17/17 09:21 Dose: 12.5 mg Oxycodone/Acetaminophen (Percocet 2.5/325 Mg Tab) 1 tab PO Q4H PRN PRN Reason: Pain, moderate (4-7) Last Admin: 05/17/17 05:21 Dose: 1 tab Pantoprazole Sodium (Protonix Inj) 40 mg IVP Q12 [facility] Last Admin: 05/17/17 09:22 Dose: 40 mg Vitamin B Complex/Vit C/Folic Acid (Nephro-Haider) 1 tab PO 0800 [facility] Last Admin: 05/17/17 09:21 Dose: 1 tab - Labs Labs: 05/17/17 07:00 05/17/17 07:00 PT 13.4 SECONDS (9.4-12.5) H 05/17/17 07:00 INR 1.16 (0.93-1.08) H 05/17/17 07:00 APTT 67.0 Seconds (25.1-36.5) H 05/14/17 04:00
--- NOTE | 2017-05-17 15:48 | PN ---
DATE: 05/17/2017 CARDIOLOGY FOLLOWUP SUBJECTIVE: The patient is comfortable. PHYSICAL EXAMINATION: VITAL SIGNS: Blood pressure 112/57, the heart rates in the 60s. NECK: Negative JVD. LUNGS: Without rales. HEART: Reveals S1, S2. EXTREMITIES: Without edema. LABORATORY DATA: Hemoglobin is 8.9. IMPRESSION: 1. Resolution of dyspnea. 2. Anemia is improved. 3. Chronic atrial flutter. 4. History of bradycardia. 5. History of pacemaker placement. 6. Renal insufficiency. 7. Pulmonary hypertension. Given these findings, the patient is doing well. Telemetry has been discontinued. The patient is transferred to rehab. Oswald Fonseca MD
--- NOTE | 2017-05-17 16:17 | PN ---
DATE: 05/17/2017 SUBJECTIVE: I saw her resting comfortably in bed. She is in good spirits. She is on Aricept, Cardizem, Fergon, Lipitor, Lopressor, Lovenox, Nephro-Haider, Percocet, Protonix and Xanax. She is presently in bed, feeling better. No complaints of chest pain or shortness of breath. No abdominal pain. When she gets the pain, Percocet did help her. OBJECTIVE VITAL SIGNS: She has a 98.1 temperature, 61 pulse, 103/61 blood pressure, 20 respiratory rate, 100% O2 saturation on room air. HEENT: Extraocular muscles are intact. Head is atraumatic, normocephalic. HEART: Regular rate. LUNGS: Clear to auscultation. ABDOMEN: Soft. EXTREMITIES: No edema. DATA: She has a 6.8 white count. Hemoglobin dropped to 8.9, I am concerned about her drop in hemoglobin. I did not start her back on the Coumadin yet, it was as high as 9.5; hematocrit 28.7, platelets of 191,000. INR is down to 1.16. She had 143 sodium, potassium 4.7, BUN is better at 55, creatinine is better at 1.5, GFR is up to 40, sugar is 105, calcium is 9.2, total bilirubin is 0.6, AST is 34, ALT is 28, alkaline phosphatase 60, total protein 6.3. She is being seen by Renal, GI, Hematology. I am going to continue the Lovenox until I know with the hemoglobin. I would like to go to TCU, to continue to monitor physical therapy treatment and I only had a screen TCU evaluation. I think she needs physical therapy and further workup. The patient had a suprapubic INR, atrial flutter, anemia, dyspnea on exertion and renal insufficiency. Marco Farris DO [facility]
[2017-05-18 01:06] LABS: ALBUMIN (PEP) 3.1 g/dL (3.8-4.8); ALPHA-1-GLOBULIN (PEP) 0.3 g/dL (0.2-0.3)
== END 2017-05-17 14:40 | DRG 812 ==
LOC: ED 09:57 → ERH 12:54 → 3RNO 15:56 → ICU 05-14 07:00 → OBSVTOIN 05-14 09:55 → 3RSO 05-16 19:11
PROVIDERS: ADMIT Family Medicine; ATTEND Family Medicine
PROC: 30233K1 Transfusion of Nonautologous Frozen Plasma into Peripheral Vein, Percutaneous Approach (ICD-10-PCS; principal; 2017-05-14)
PROC: 30233N1 Transfusion of Nonautologous Red Blood Cells into Peripheral Vein, Percutaneous Approach (ICD-10-PCS; 2017-05-14)
PROC: 05HY33Z Insertion of Infusion Device into Upper Vein, Percutaneous Approach (ICD-10-PCS; 2017-05-14)
DX: D64.9 Anemia, unspecified (principal); N17.9 Acute kidney failure, unspecified; E87.2 Acidosis; I95.9 Hypotension, unspecified; E87.5 Hyperkalemia; I13.0 Hypertensive heart and chronic kidney disease with heart failure and stage 1 through stage 4 chronic kidney disease, or unspecified chronic kidney disease; I48.92 Unspecified atrial flutter; I48.91 Unspecified atrial fibrillation; I27.20 Pulmonary hypertension, unspecified; N18.3 Chronic kidney disease, stage 3 (moderate); I50.9 Heart failure, unspecified; N25.81 Secondary hyperparathyroidism of renal origin; J44.9 Chronic obstructive pulmonary disease, unspecified; F03.90 Unspecified dementia, unspecified severity, without behavioral disturbance, psychotic disturbance, mood disturbance, and anxiety; R79.1 Abnormal coagulation profile; K21.9 Gastro-esophageal reflux disease without esophagitis; F41.9 Anxiety disorder, unspecified; E55.9 Vitamin D deficiency, unspecified; Z79.01 Long term (current) use of anticoagulants; Z85.528 Personal history of other malignant neoplasm of kidney; Z90.5 Acquired absence of kidney; Z95.0 Presence of cardiac pacemaker; Z87.891 Personal history of nicotine dependence

== ENCOUNTER 2017-05-17 14:40 | Inpatient (IN) | payer OTHER, MEDICARE ==
[2017-05-17 17:16] VITALS: BMI 22.2
[2017-05-17] MEDS: Oxycodone/Acetaminophen 2.5/325 mg Tab PO PRN ×2 (17:24→23:18)
[2017-05-18] MEDS: Oxycodone/Acetaminophen 2.5/325 mg Tab PO PRN ×3 (05:27→21:36)
[2017-05-18 07:28] LABS: BASO # 0.01 K/mm3 (0.0-2.0); BASO % 0.2 % (0.0-3.0); EOS # 0.2 (0.0-0.7); EOS % 3.6 % (1.5-5.0); GRAN # 3.47 (1.4-6.5); GRAN % 66.6 % (50.0-68.0); HEMOGLOBIN 8.6 g/dL (12.0-16.0); LYMPH # 1.2 (1.2-3.4); LYMPH % 22.5 % (22.0-35.0); MEAN CELL VOLUME 88.3 fl (80.0-105.0); MEAN CORPUSCULAR HEMOGLOBIN 27.2 pg (25.0-35.0); MEAN CORPUSCULAR HGB CONC 30.8 g/dl (31.0-37.0); MEAN PLATELET VOLUME 10.2 fl (7.0-11.0); MONO # 0.4 (0.1-0.6); MONO % 7.1 % (1.0-6.0); RBC 3.16 10^6/uL (3.5-6.1); RED CELL DISTRIBUTION WIDTH 19.2 % (11.5-14.5); WHITE BLOOD COUNT 5.2 10^3/ul (4.5-11.0)
[2017-05-18 07:59] LABS: ALB/GLOB RATIO 0.9 (1.1-1.8); ALBUMIN 2.8 g/dL (3.0-4.8)
[2017-05-18] MEDS: Multivitamin Vitamin B Complex (Nephro-Vite) Tab PO SCH (09:16)
--- NOTE | 2017-05-18 13:53 | CP.PCM.CON ---
History of Present Illness - History of Present Illness History of Present Illness: Nephrology Consultation Note: Assessment: stable PATRICIA likely due to low BP/hemodynamic injury with hyperkalemia and acidosis ( improved) severe symptomatic anemia Chronic Kidney Disease Stage 3 (N18.3) with 322 mg proteinuria possibly due to HTN, age related decline, and s/p Rt nephrectomy due to hx of RCC Hypertension controlled (I12.9) Vit D insufficiency with secondary hyperparathyroidism hx of severe pulmonary HTN (RVSP 81 mm Hg) and moderate to severe LVH hx of dementia bradycardia s/p PPM Plan no acute need of renal replacement therapy at this time no ACEI or ARB due to PATRICIA and hyperkalemia. maintain hemodynamic stable. avoid hypotension. pt getting meds to control A fib rate anemia management: PRBC as needed, started on iron 324 mg TID and MVI. dose of aransep 60 mcg 05/14/17 GI following. heme consulted pending SPEP/PAVITHRA and serum FLC assay as well Resume low-dose Lasix 20 mg orally per day Dose meds/antibiotics for reduced GFR. Avoid fleets enema/magnesium based laxatives. Avoid nephrotoxins/NSAIDs/IV iodinated contrast (unless emergent) Further work up as per primary team Thanks for allowing me to participate in care of your patient. will follow with you. Please call if any Qs Dr Jt Lemon Office: [phone] Reason for consult: CKD and PATRICIA HPI: Pt is a 81 y/o F with hx of hypertension (20 years) , renal cell cancer s/ p unilateral total nephrectomy, CKD stage 3 with baseline cr 1.4-1.7 since 2017 but intermittent episodes of PATRICIA, chronic anemia, A fib, bradycardia s/p PPM admitted with SOB, and severe anemia Which improved after blood transfusion patient now in rehabilitation. seen for renal consult now she feels better. improved SOB. denies chest pain/nausea or urinary complaints. rest all other negative. ROS: denies CP/nausea/vomitting/pain abdomen or urine complaints. SOB resolved all other negative except as in HPI Physical Examination: General Appearance: Comfortable, in no acute respiratory distress, co-operative . Vitals reviewed and noted as below Head; Atraumatic, normocephalic ENT: no ulcers no thrush. Tongue is midline. Oropharynx: no rash or ulcers. EYES: Pupils are equal, round and reactive to light accommodation. Eye muscles and extraocular movement intact. Sclera is anicteric. Neck; supple no lymphadenopathy, no thyromegaly or bruit Lungs: Normal respiratory rate/effort. Breath sounds bilateral equal and clear Except occasional basilar crackle Heart: normal rate. s1s2 normal. No rub or gallop. has PPM and A fib Extremities: trace edema. No varicose veins Neurological: Patient is alert, awake and oriented x3 No other focal deficit. Strength bilateral appropriate and equal Skin: Warm and dry. Normal turgor. No rash. Palpitation: Normal elasticity for age Abdomen: Abdomen is soft. Bowel sounds +. There is no abdominal tenderness, no guarding/rigidity or organomegaly Psych: limited insight and has normal affect/mood MSK: no joint tenderness or swelling. Digits and nails normal, no deformity : kidney or bladder not palpable Labs/imaging/EKG reviewed. Past medical history, past surgical history,social history, allergy reviewed and noted as below FAMILy HX; no hx of CKD. non contributory work up: CT 2017: s/p Rt nephrectomy, left kidney unremarkable Vit D 35 PTH 70 TSAT 10% Ferritin 30 Past Patient History - Infectious Disease Hx of Infectious Diseases: None - Tetanus Immunizations Tetanus Immunization: >10 years Ago - Past Medical History & Family History Past Medical History?: Yes - Past Social History Smoking Status: Former Smoker - CARDIAC Hx Cardiac Disorders: Yes Hx Congestive Heart Failure: Yes Hx Hypertension: Yes - PULMONARY Hx Respiratory Disorders: Yes (USED TO SMOKE 6 CIG A DAY) - NEUROLOGICAL Hx Neurological Disorder: Yes Hx Dementia: Yes Hx Dizziness: Yes (SYNCOPE) - HEENT Hx HEENT Problems: Yes (glasses) - RENAL Hx Chronic Kidney Disease: Yes - ENDOCRINE/METABOLIC Hx Endocrine Disorders: No - HEMATOLOGICAL/ONCOLOGICAL Hx Cancer: No - INTEGUMENTARY Hx Dermatological Problems: No - MUSCULOSKELETAL/RHEUMATOLOGICAL Hx Arthritis: Yes - GASTROINTESTINAL Hx Gastrointestinal Disorders: Yes Hx Gastroesophageal Reflux: Yes - GENITOURINARY/GYNECOLOGICAL Hx Reproductive Disorders: No - PSYCHIATRIC Hx Psychophysiologic Disorder: Yes Hx Anxiety: Yes Hx Substance Use: No - SURGICAL HISTORY Hx Mastectomy: No - ANESTHESIA Hx Anesthesia: Yes Hx Anesthesia Reactions: No Hx Malignant Hyperthermia: No Meds Allergies/Adverse Reactions: Allergies Allergy/AdvReac Type Severity Reaction Status Date / Time No Known Allergies Allergy Verified 05/13/17 15:40 - Medications Medications: Current Medications Alprazolam (Xanax) 0.5 mg PO BID PRN; Protocol PRN Reason: Anxiety Last Admin: 05/18/17 10:46 Dose: 0.5 mg Apixaban (Eliquis) 2.5 mg PO BID [facility] PRN Reason: Protocol Last Admin: 05/18/17 10:46 Dose: 2.5 mg Atorvastatin Calcium (Lipitor) 20 mg PO DIN [facility] PRN Reason: Protocol Diltiazem HCl (Cardizem) 60 mg PO TID [facility] PRN Reason: Protocol Last Admin: 05/18/17 06:19 Dose: 60 mg Donepezil HCl (Aricept) 10 mg PO HS [facility] PRN Reason: Protocol Last Admin: 05/17/17 21:40 Dose: 10 mg Ferrous Gluconate (Fergon) 324 mg PO TID [facility] PRN Reason: Protocol Last Admin: 05/17/17 21:39 Dose: 324 mg Furosemide (Lasix) 20 mg PO DAILY [facility] Metoprolol Tartrate (Lopressor) 12.5 mg PO 0800,1800 [facility] PRN Reason: Protocol Last Admin: 05/18/17 09:15 Dose: Not Given Oxycodone/Acetaminophen (Percocet 2.5/325 Mg Tab) 1 tab PO Q4H PRN; Protocol PRN Reason: Pain, moderate (4-7) Last Admin: 05/18/17 05:27 Dose: 1 tab Pantoprazole Sodium (Protonix Ec Tab) 40 mg PO 0600,1800 [facility] PRN Reason: Protocol Vitamin B Complex/Vit C/Folic Acid (Nephro-Haider) 1 tab PO 0800 [facility] PRN Reason: Protocol Last Admin: 05/18/17 09:16 Dose: 1 tab Results - Vital Signs Recent Vital Signs: Last Vital Signs Temp 97.7 F 05/18/17 10:15 Pulse 62 05/18/17 10:15 Resp 16 05/18/17 10:15 BP 94/48 L 05/18/17 10:15 Pulse Ox 100 05/18/17 10:15 - Labs Result Diagrams: 05/18/17 06:45 05/18/17 06:45 Labs: Laboratory Results - last 24 hr 05/18/17 05/18/17 06:45 06:45 WBC 5.2 D RBC 3.16 L Hgb 8.6 L Hct 27.9 L MCV 88.3 MCH 27.2 MCHC 30.8 L RDW 19.2 H Plt Count 204 MPV 10.2 Gran % 66.6 Lymph % (Auto) 22.5 [place] % (Auto) 7.1 H Eos % (Auto) 3.6 Baso % (Auto) 0.2 Gran # 3.47 Lymph # (Auto) 1.2 [place] # (Auto) 0.4 Eos # (Auto) 0.2 Baso # (Auto) 0.01 Sodium 141 Potassium 5.1 H Chloride 105 Carbon Dioxide 31 Anion Gap 10 BUN 43 H Creatinine 1.5 H Est GFR ( Amer) 40 Est GFR (Non-Af Amer) 33 Random Glucose 95 Calcium 9.0 Total Bilirubin 0.5 AST 33 ALT 30 Alkaline Phosphatase 59 Total Protein 5.9 Albumin 2.8 L Globulin 3.1 Albumin/Globulin Ratio 0.9 L
--- NOTE | 2017-05-18 15:15 | HP ---
HISTORY OF PRESENT ILLNESS: She is now in the Transitional Care Unit. She was transferred over from the [facility] side. She came in to the hospital with an elevated INR of 15, it bounced up to 17. She is an 81-year-old female that has a history of AFib, CHF, COPD, dementia, renal insufficiency, acute kidney injury, hyperkalemia, hypertension, vitamin D insufficiency, secondary hyperparathyroidism, pulmonary hypertension and she is here for physical therapy and meds before she goes home. Also anemia. She has a pacemaker insertion, mild dementia, she wears glasses, reflux, anxiety. FAMILY HISTORY: Hypertension in the family. SOCIAL HISTORY: She never smoked. No alcohol. No drugs. ALLERGIES: NO KNOWN DRUG ALLERGIES. MEDICATIONS: She is currently on Aricept, Cardizem, Eliquis, Fergon, Lipitor, Lopressor, Nephro-Haider, Percocet, Protonix and Xanax. She is pleasant, sitting in bed. REVIEW OF SYSTEMS: No acute hearing or vision changes. She is very pleasant. No headache. No sore throat. No chest pain or palpitations at this time. No shortness of breath or cough. No abdominal pain or diarrhea, nausea, vomiting, constipation. No skin ulcers or rashes. No headaches or dizziness. No anxiety at this time. She is in good spirits and has no complaints. PHYSICAL EXAMINATION: VITAL SIGNS: She has a 97.7 temp, 62 pulse, 94/48 blood pressure, 16 respiratory rate and 100% O2 sat on room air. HEENT: Her head is atraumatic, normocephalic. Extraocular muscles are intact. Throat is moist. NECK: Supple. GENERAL: Well appearing, smiling, alert. HEART: Regular rate. LUNGS: Decreased breath sounds, but clear to auscultation. ABDOMEN: Soft, nontender. Positive bowel sounds. No guarding. No rebound. No CVA tenderness. EXTREMITIES: No edema. LYMPHATICS: Thyroid midline. No palpable lymphadenopathy appreciated. SKIN: Warm and dry. No apparent rashes or ulcers. LABORATORY DATA: She had blood tests. She has a 141 sodium; potassium is 5.1, I will repeat that tomorrow; BUN is 43; creatinine 1.5, a little high; GFR is 33; sugar is 95; calcium is 9; total bili is 0.5; AST is 33; ALT is 30; alk phos 59; total protein is 5.9. White count is 5.2; hemoglobin is 8.6, a little bit low, she is on iron; hematocrit 27.9; platelets of 204. ASSESSMENT AND PLAN: We will check her labs tomorrow. She will have increased diet to regular. She will be seen by Hematology/Oncology, Cardiology and Renal. Continue with aggressive treatment and care. Checking her labs, physical therapy. Thank you very much. Marco Farris DO
--- NOTE | 2017-05-18 15:43 | PN ---
DATE: 05/18/2017 CARDIOLOGY FOLLOWUP SUBJECTIVE: The patient was transferred to the TCU. No shortness of breath. No chest pain. PHYSICAL EXAMINATION: VITAL SIGNS: Blood pressure is 110/70, the heart rate was elevated in the 120s today. NECK: Negative JVD. LUNGS: Without rales. HEART: Reveals S1, S2. EXTREMITIES: Without edema. LABORATORY DATA: Hemoglobin is 8.6, BUN and creatinine are 43 and 1.5. IMPRESSION: 1. Atrial fibrillation/flutter, elevated heart rate. 2. History of pacemaker placement for bradycardia. 3. Chronic obstructive pulmonary disease. 4. Pulmonary hypertension. 5. Anemia. Given these findings, we will increase her beta-khloe to 25 b.i.d. We will change her short-acting Cardizem to long-acting Cardizem. Oswald Fonseca MD
[2017-05-18] MEDS: Pantoprazole 40 mg EC Tab PO SCH (18:16)
[2017-05-19] MEDS: Pantoprazole 40 mg EC Tab PO SCH ×2 (05:42→17:31)
[2017-05-19] MEDS: Oxycodone/Acetaminophen 2.5/325 mg Tab PO PRN ×2 (05:45→18:30)
[2017-05-19 06:50] LABS: HEMOGLOBIN 9.6 g/dL (12.0-16.0); MEAN CELL VOLUME 89.7 fl (80.0-105.0); MEAN CORPUSCULAR HEMOGLOBIN 27.4 pg (25.0-35.0); MEAN CORPUSCULAR HGB CONC 30.5 g/dl (31.0-37.0); MEAN PLATELET VOLUME 9.9 fl (7.0-11.0); RBC 3.51 10^6/uL (3.5-6.1); RED CELL DISTRIBUTION WIDTH 18.7 % (11.5-14.5); WHITE BLOOD COUNT 5.9 10^3/ul (4.5-11.0)
[2017-05-19 07:19] LABS: ALB/GLOB RATIO 0.9 (1.1-1.8); ALBUMIN 3.3 g/dL (3.0-4.8)
[2017-05-19] MEDS: Multivitamin Vitamin B Complex (Nephro-Vite) Tab PO SCH (08:47)
[2017-05-19] MEDS: diltiaZEM 180 mg/24 Hours CD Cap PO SCH (10:21)
--- NOTE | 2017-05-19 10:30 | PN ---
DATE: SUBJECTIVE: I saw her in the Transitional Care Unit. Resting comfortably in bed. She is feeling well. No complaint. She is smiling, in good spirits. MEDICATIONS: She is on Aricept, Cardizem, Eliquis, Fergon, Lasix, Lipitor, Lopressor, Nephro-Haider, Percocet at the 2.5 low-dose, Protonix, Tylenol and Xanax. She also had a Tylenol. Hopefully, we could offer first for the Percocet. PHYSICAL EXAMINATION:' She has a 97.7 temp, 59 pulse, 127/70 blood pressure, 17 respiratory rate, 100% O2 sat on nasal cannula. HEENT: Head is atraumatic, normocephalic. HEART: Regular rate. LUNGS: Decreased breath sounds, but clear. ABDOMEN: Soft, nontender. Positive bowel sounds. No guarding. No rebound. EXTREMITIES: Have no edema. LABORATORY DATA: She has a 5.9 white count, 9.6 hemoglobin, 31.5 hematocrit with a 213. 138 sodium, potassium is 5.1, BUN 48, creatinine 1.8, GFR is 27, sugar is 103, calcium is 9, total bili is 0.4, AST is 25, ALT is 32, alk phos 67, total protein 6.9. ASSESSMENT AND PLAN: She is being seen by Renal and Cardiology. She has atrial fibrillation, atrial flutter, permanent pacemaker placement, chronic obstructive pulmonary disease, pulmonary hypertension, anemia. We are adjusting medications as per Cardiology and Renal. Physical therapy. Hopefully, she will continue to improve. Marco Farris DO
--- NOTE | 2017-05-19 15:23 | CP.PCM.PN ---
Subjective - Date & Time of Evaluation Date of Evaluation: 05/19/17 Time of Evaluation: 15:22 - Subjective Subjective: Nephrology Consultation Note: Assessment: stable PATRICIA likely due to low BP/hemodynamic injury with hyperkalemia and acidosis ( improved) severe symptomatic anemia Chronic Kidney Disease Stage 3 (N18.3) with 322 mg proteinuria possibly due to HTN, age related decline, and s/p Rt nephrectomy due to hx of RCC Hypertension controlled (I12.9) Vit D insufficiency with secondary hyperparathyroidism hx of severe pulmonary HTN (RVSP 81 mm Hg) and moderate to severe LVH hx of dementia bradycardia s/p PPM Plan no acute need of renal replacement therapy at this time no ACEI or ARB due to PATRICIA and hyperkalemia. maintain hemodynamic stable. avoid hypotension. pt getting meds to control A fib rate anemia management: PRBC as needed, started on iron 324 mg TID and MVI. dose of aransep 60 mcg 05/14/17 GI following. heme consulted pending SPEP/PAVITHRA and serum FLC assay continue with low-dose Lasix 20 mg orally per day Dose meds/antibiotics for reduced GFR. Avoid fleets enema/magnesium based laxatives. Avoid nephrotoxins/NSAIDs/IV iodinated contrast (unless emergent) Further work up as per primary team Thanks for allowing me to participate in care of your patient. will follow with you. Please call if any Qs Dr Jt Lemon Office: [phone] Reason for consult: CKD and PATRICIA HPI: Pt is a 81 y/o F with hx of hypertension (20 years) , renal cell cancer s/ p unilateral total nephrectomy, CKD stage 3 with baseline cr 1.4-1.7 since 2017 but intermittent episodes of PATRICIA, chronic anemia, A fib, bradycardia s/p PPM admitted with SOB, and severe anemia Which improved after blood transfusion patient now in rehabilitation. seen for renal consult now she feels better. improved SOB. denies chest pain/nausea or urinary complaints. rest all other negative. ROS: denies CP/nausea/vomitting/pain abdomen or urine complaints. SOB resolved all other negative except as in HPI Physical Examination: General Appearance: Comfortable, in no acute respiratory distress, co-operative . Vitals reviewed and noted as below Head; Atraumatic, normocephalic ENT: no ulcers no thrush. Tongue is midline. Oropharynx: no rash or ulcers. EYES: Pupils are equal, round and reactive to light accommodation. Eye muscles and extraocular movement intact. Sclera is anicteric. Neck; supple no lymphadenopathy, no thyromegaly or bruit Lungs: Normal respiratory rate/effort. Breath sounds bilateral equal and clear Except occasional basilar crackle Heart: normal rate. s1s2 normal. No rub or gallop. has PPM and A fib Extremities: trace edema. No varicose veins Neurological: Patient is alert, awake and oriented x3 No other focal deficit. Strength bilateral appropriate and equal Skin: Warm and dry. Normal turgor. No rash. Palpitation: Normal elasticity for age Abdomen: Abdomen is soft. Bowel sounds +. There is no abdominal tenderness, no guarding/rigidity or organomegaly Psych: limited insight and has normal affect/mood MSK: no joint tenderness or swelling. Digits and nails normal, no deformity : kidney or bladder not palpable Labs/imaging/EKG reviewed. Past medical history, past surgical history,social history, allergy reviewed and noted as below FAMILy HX; no hx of CKD. non contributory work up: CT 2017: s/p Rt nephrectomy, left kidney unremarkable Vit D 35 PTH 70 TSAT 10% Ferritin 30 Objective - Vital Signs/Intake and Output Vital Signs (last 24 hours): Temp Pulse Resp BP Pulse Ox 97.8 F 61 18 122/70 100 05/19/17 10:00 05/19/17 10:00 05/19/17 10:00 05/19/17 10:20 05/19/17 10:00 - Medications Medications: Current Medications Acetaminophen (Tylenol 325mg Tab) 650 mg PO Q4H PRN PRN Reason: Pain, Mild (1-3) Alprazolam (Xanax) 0.5 mg PO BID PRN; Protocol PRN Reason: Anxiety Last Admin: 05/18/17 21:36 Dose: 0.5 mg Apixaban (Eliquis) 2.5 mg PO BID [facility] PRN Reason: Protocol Last Admin: 05/19/17 10:20 Dose: 2.5 mg Atorvastatin Calcium (Lipitor) 20 mg PO DIN [facility] PRN Reason: Protocol Last Admin: 05/18/17 16:39 Dose: 20 mg Diltiazem HCl (Cardizem Cd) 180 mg PO DAILY [facility] Last Admin: 05/19/17 10:21 Dose: 180 mg Donepezil HCl (Aricept) 10 mg PO HS [facility] PRN Reason: Protocol Last Admin: 05/18/17 21:36 Dose: 10 mg Ferrous Gluconate (Fergon) 324 mg PO TID [facility] PRN Reason: Protocol Last Admin: 05/19/17 13:38 Dose: 324 mg Furosemide (Lasix) 20 mg PO DAILY [facility] Last Admin: 05/19/17 10:20 Dose: 20 mg Metoprolol Tartrate (Lopressor) 25 mg PO 0800,1800 [facility] PRN Reason: Protocol Last Admin: 05/19/17 08:47 Dose: 25 mg Oxycodone/Acetaminophen (Percocet 2.5/325 Mg Tab) 1 tab PO Q4H PRN; Protocol PRN Reason: Pain, moderate (4-7) Last Admin: 05/19/17 05:45 Dose: 1 tab Pantoprazole Sodium (Protonix Ec Tab) 40 mg PO 0600,1800 [facility] PRN Reason: Protocol Last Admin: 05/19/17 05:42 Dose: 40 mg Vitamin B Complex/Vit C/Folic Acid (Nephro-Haider) 1 tab PO 0800 [facility] PRN Reason: Protocol Last Admin: 05/19/17 08:47 Dose: 1 tab - Labs Labs: 05/19/17 06:30 05/19/17 06:30
--- NOTE | 2017-05-19 16:57 | PN ---
DATE: 05/19/2017 CARDIOLOGY FOLLOWUP SUBJECTIVE: The patient is without symptoms. PHYSICAL EXAMINATION: VITAL SIGNS: Blood pressure is 120/70, the heart rate is well-controlled and paced at 60s. NECK: Negative JVD. LUNGS: Without rales. HEART: Reveals S1, S2. EXTREMITIES: Without edema. LABORATORY DATA: Hemoglobin is 9.6. Chemistries: BUN and creatinine 48 and 1.8. IMPRESSION: 1. Resolution of the tachycardia part of her tachycardia-bradycardia. 2. History of pacemaker placement. 3. Chronic obstructive pulmonary disease. 4. Pulmonary hypertension. 5. Anemia. PLAN: Given these findings, the patient's heart rate is well-controlled on her current medications which include beta-blockers as well as Cardizem. Oswald Fonseca MD
[2017-05-20] MEDS: Pantoprazole 40 mg EC Tab PO SCH ×2 (05:38→17:37)
[2017-05-20 06:19] LABS: HEMOGLOBIN 9.1 g/dL (12.0-16.0); MEAN CORPUSCULAR HEMOGLOBIN 26.8 pg (25.0-35.0); MEAN CORPUSCULAR HGB CONC 30.8 g/dl (31.0-37.0); MEAN PLATELET VOLUME 9.8 fl (7.0-11.0); RBC 3.39 10^6/uL (3.5-6.1); RED CELL DISTRIBUTION WIDTH 18.4 % (11.5-14.5); WHITE BLOOD COUNT 6.4 10^3/ul (4.5-11.0)
[2017-05-20 06:30] LABS: ALBUMIN 3.1 g/dL (3.0-4.8); CALCIUM 9.3 mg/dL (8.4-10.5)
[2017-05-20] MEDS: Multivitamin Vitamin B Complex (Nephro-Vite) Tab PO SCH (08:11)
[2017-05-20] MEDS: Oxycodone/Acetaminophen 2.5/325 mg Tab PO PRN ×3 (08:14→22:01)
[2017-05-20] MEDS: diltiaZEM 180 mg/24 Hours CD Cap PO SCH (09:11)
[2017-05-20 09:56] LABS: INR 1.32 (0.93-1.08); PROTHROMBIN TIME 15.3 SECONDS (9.4-12.5)
--- NOTE | 2017-05-20 13:39 | PN ---
DATE: 05/20/2017 CARDIOLOGY FOLLOWUP SUBJECTIVE: The patient is comfortable in a chair, eating lunch without issues. OBJECTIVE: VITAL SIGNS: Blood pressure is 123/73, the heart rate is in the 70s. NECK: Negative JVD. LUNGS: Without rales. HEART: S1, S2. EXTREMITIES: Without edema. LABORATORY DATA: Reviewed. IMPRESSION: 1. 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 2. History of pacemaker placement. 3. Chronic obstructive pulmonary disease. 4. Pulmonary hypertension. 5. Anemia. Given these findings, her medication combination of beta-blockers and calcium channel blockers controlled the heart rate well. Her pacemaker is controlling her bradycardia well. We will continue the Eliquis. Oswald Fonseca MD
--- NOTE | 2017-05-20 13:59 | CP.PCM.PN ---
Subjective - Date & Time of Evaluation Date of Evaluation: 05/20/17 Time of Evaluation: 13:57 - Subjective Subjective: Nephrology Consultation Note: Assessment: stable PATRICIA likely due to low BP/hemodynamic injury with hyperkalemia and acidosis ( improved) severe symptomatic anemia Chronic Kidney Disease Stage 3 (N18.3) with 322 mg proteinuria possibly due to HTN, age related decline, and s/p Rt nephrectomy due to hx of RCC Hypertension controlled (I12.9) Vit D insufficiency with secondary hyperparathyroidism hx of severe pulmonary HTN (RVSP 81 mm Hg) and moderate to severe LVH hx of dementia bradycardia s/p PPM Plan no acute need of renal replacement therapy at this time no ACEI or ARB due to PATRICIA and hyperkalemia. maintain hemodynamic stable. avoid hypotension. pt getting meds to control A fib rate anemia management: PRBC as needed, started on iron 324 mg TID and MVI. dose of aransep 60 mcg 05/14/17 GI following. heme consulted FLC ratio WNL changed to Lasix 20 mg orally every other day Dose meds/antibiotics for reduced GFR. Avoid fleets enema/magnesium based laxatives. Avoid nephrotoxins/NSAIDs/IV iodinated contrast (unless emergent) Further work up as per primary team Thanks for allowing me to participate in care of your patient. will follow with you. Please call if any Qs Dr Jt Lemon Office: [phone] Reason for consult: CKD and PATRICIA HPI: Pt is a 81 y/o F with hx of hypertension (20 years) , renal cell cancer s/ p unilateral total nephrectomy, CKD stage 3 with baseline cr 1.4-1.7 since 2017 but intermittent episodes of PATRICIA, chronic anemia, A fib, bradycardia s/p PPM admitted with SOB, and severe anemia Which improved after blood transfusion patient now in rehabilitation. seen for renal consult now she feels better. improved SOB. denies chest pain/nausea or urinary complaints. rest all other negative. ROS: denies CP/nausea/vomitting/pain abdomen or urine complaints. SOB resolved all other negative except as in HPI Physical Examination: General Appearance: Comfortable, in no acute respiratory distress, co-operative . Vitals reviewed and noted as below Head; Atraumatic, normocephalic ENT: no ulcers no thrush. Tongue is midline. Oropharynx: no rash or ulcers. EYES: Pupils are equal, round and reactive to light accommodation. Eye muscles and extraocular movement intact. Sclera is anicteric. Neck; supple no lymphadenopathy, no thyromegaly or bruit Lungs: Normal respiratory rate/effort. Breath sounds bilateral equal and clear Heart: normal rate. s1s2 normal. No rub or gallop. has PPM and A fib Extremities: no edema. No varicose veins Neurological: Patient is alert, awake and oriented x3 No other focal deficit. Strength bilateral appropriate and equal Skin: Warm and dry. Normal turgor. No rash. Palpitation: Normal elasticity for age Abdomen: Abdomen is soft. Bowel sounds +. There is no abdominal tenderness, no guarding/rigidity or organomegaly Psych: limited insight and has normal affect/mood MSK: no joint tenderness or swelling. Digits and nails normal, no deformity : kidney or bladder not palpable Labs/imaging/EKG reviewed. Past medical history, past surgical history,social history, allergy reviewed and noted as below FAMILy HX; no hx of CKD. non contributory work up: CT 2017: s/p Rt nephrectomy, left kidney unremarkable Vit D 35 PTH 70 TSAT 10% Ferritin 30 Objective - Vital Signs/Intake and Output Vital Signs (last 24 hours): Temp Pulse Resp BP Pulse Ox 98.3 F 60 18 94/57 L 100 05/20/17 10:00 05/20/17 10:00 05/20/17 10:00 05/20/17 10:00 05/20/17 10:00 - Medications Medications: Current Medications Acetaminophen (Tylenol 325mg Tab) 650 mg PO Q4H PRN PRN Reason: Pain, Mild (1-3) Alprazolam (Xanax) 0.5 mg PO BID PRN; Protocol PRN Reason: Anxiety Last Admin: 05/19/17 20:29 Dose: 0.5 mg Apixaban (Eliquis) 2.5 mg PO BID [facility] PRN Reason: Protocol Last Admin: 05/20/17 09:11 Dose: 2.5 mg Atorvastatin Calcium (Lipitor) 20 mg PO DIN [facility] PRN Reason: Protocol Last Admin: 05/19/17 17:32 Dose: 20 mg Diltiazem HCl (Cardizem Cd) 180 mg PO DAILY [facility] Last Admin: 05/20/17 09:11 Dose: 180 mg Donepezil HCl (Aricept) 10 mg PO HS [facility] PRN Reason: Protocol Last Admin: 05/19/17 21:26 Dose: Not Given Ferrous Gluconate (Fergon) 324 mg PO TID [facility] PRN Reason: Protocol Last Admin: 05/20/17 13:17 Dose: 324 mg Furosemide (Lasix) 20 mg PO Q2D [facility] Metoprolol Tartrate (Lopressor) 25 mg PO 0800,1800 [facility] PRN Reason: Protocol Last Admin: 05/20/17 08:11 Dose: 25 mg Oxycodone/Acetaminophen (Percocet 2.5/325 Mg Tab) 1 tab PO Q4H PRN; Protocol PRN Reason: Pain, moderate (4-7) Last Admin: 05/20/17 08:14 Dose: 1 tab Pantoprazole Sodium (Protonix Ec Tab) 40 mg PO 0600,1800 [facility] PRN Reason: Protocol Last Admin: 05/20/17 05:38 Dose: 40 mg Vitamin B Complex/Vit C/Folic Acid (Nephro-Haider) 1 tab PO 0800 [facility] PRN Reason: Protocol Last Admin: 05/20/17 08:11 Dose: 1 tab - Labs Labs: 05/20/17 05:30 05/20/17 05:30 PT 15.3 SECONDS (9.4-12.5) H 05/20/17 09:30 INR 1.32 (0.93-1.08) H 05/20/17 09:30
--- NOTE | 2017-05-20 14:00 | PN ---
DATE: SUBJECTIVE: I saw her sitting up in bed, now eating breakfast. She is in good spirits. She is trying physical therapy. She is on Aricept, Cardizem, Eliquis, Fergon, Lasix, Lipitor, Lopressor, Nephro-Haider, Percocet, Protonix, Tylenol, and Xanax. PHYSICAL EXAMINATION: VITAL SIGNS: She has 98.1 temperature, 60 pulse, 100/58 blood pressure, 18 respiratory rate, 100% O2 sat on room air. HEENT: Head is atraumatic, normocephalic. GENERAL: She is alert and comfortable at this time, in no acute distress. No pain. HEART: Regular rate. LUNGS: Decreased breath sounds, but clear. ABDOMEN: Soft. EXTREMITIES: No edema. LABORATORY DATA: She has a 6.4 white count, 9.1 hemoglobin, 29.5 hematocrit with 211 platelets. Sodium 139, potassium 5.1. BUN 51, creatinine 1.9. GFR is 25. Sugar is 90. Calcium is 9.3. Total bili is 0.2, AST is 24, ALT is 31, alk phos 51, total protein 6.3. She has to drink more free fluid. Patient is a little bit renal insufficient. She came in with dyspnea on exertion, hypertension, pulmonary hypertension, supratherapeutic INR, anemia, atrial flutter, acute kidney injury, and renal insufficiency. She is being seen by Cardiology and Renal. We will watch her closely. Encouraged to do physical therapy and get out of bed to chair. Marco Farris DO
[2017-05-21] MEDS: Pantoprazole 40 mg EC Tab PO SCH ×2 (05:30→17:38)
[2017-05-21] MEDS: Oxycodone/Acetaminophen 2.5/325 mg Tab PO PRN ×3 (05:45→23:27)
[2017-05-21 06:29] LABS: HEMOGLOBIN 9.3 g/dL (12.0-16.0); MEAN CELL VOLUME 87.7 fl (80.0-105.0); MEAN CORPUSCULAR HEMOGLOBIN 27.3 pg (25.0-35.0); MEAN CORPUSCULAR HGB CONC 31.1 g/dl (31.0-37.0); MEAN PLATELET VOLUME 10.7 fl (7.0-11.0); RBC 3.41 10^6/uL (3.5-6.1); RED CELL DISTRIBUTION WIDTH 18.4 % (11.5-14.5); WHITE BLOOD COUNT 6.4 10^3/ul (4.5-11.0)
[2017-05-21 07:10] LABS: ALBUMIN 3.2 g/dL (3.0-4.8); CALCIUM 9.9 mg/dL (8.4-10.5)
[2017-05-21] MEDS: Multivitamin Vitamin B Complex (Nephro-Vite) Tab PO SCH (08:09)
[2017-05-21] MEDS ORDERED: Sod Polystyrene Sulf 15 gm/60 ml Susp PO ONE (08:47)
[2017-05-21] MEDS: diltiaZEM 180 mg/24 Hours CD Cap PO SCH (10:58)
--- NOTE | 2017-05-21 11:22 | CP.PCM.PN ---
Subjective - Date & Time of Evaluation Date of Evaluation: 05/21/17 Time of Evaluation: 11:21 - Subjective Subjective: Nephrology Consultation Note: Assessment: stable PATRICIA likely due to low BP/hemodynamic injury with hyperkalemia and acidosis ( improved) severe symptomatic anemia Chronic Kidney Disease Stage 3 (N18.3) with 322 mg proteinuria possibly due to HTN, age related decline, and s/p Rt nephrectomy due to hx of RCC Hypertension controlled (I12.9) Vit D insufficiency with secondary hyperparathyroidism hx of severe pulmonary HTN (RVSP 81 mm Hg) and moderate to severe LVH hx of dementia bradycardia s/p PPM Plan no acute need of renal replacement therapy at this time no ACEI or ARB due to PATRICIA and hyperkalemia. maintain hemodynamic stable. avoid hypotension. pt getting meds to control A fib rate anemia management: PRBC as needed, started on iron 324 mg TID and MVI. dose of aransep 60 mcg 05/21/17 GI following. heme consulted FLC ratio WNL hold lasix and IVF NS @ 50 mlhr today as BUN/cr rising. agree with dose of kayexylate today Dose meds/antibiotics for reduced GFR. Avoid fleets enema/magnesium based laxatives. Avoid nephrotoxins/NSAIDs/IV iodinated contrast (unless emergent) Further work up as per primary team Thanks for allowing me to participate in care of your patient. will follow with you. Please call if any Qs Dr Jt Lemon Office: [phone] Reason for consult: CKD and PATRICIA HPI: Pt is a 81 y/o F with hx of hypertension (20 years) , renal cell cancer s/ p unilateral total nephrectomy, CKD stage 3 with baseline cr 1.4-1.7 since 2017 but intermittent episodes of PATRICIA, chronic anemia, A fib, bradycardia s/p PPM admitted with SOB, and severe anemia Which improved after blood transfusion patient now in rehabilitation. seen for renal consult now she feels better. improved SOB. denies chest pain/nausea or urinary complaints. rest all other negative. ROS: denies CP/nausea/vomitting/pain abdomen or urine complaints. SOB resolved all other negative except as in HPI. feels tired today Physical Examination: General Appearance: Comfortable, in no acute respiratory distress, co-operative . Vitals reviewed and noted as below Head; Atraumatic, normocephalic ENT: no ulcers no thrush. Tongue is midline. Oropharynx: no rash or ulcers. EYES: Pupils are equal, round and reactive to light accommodation. Eye muscles and extraocular movement intact. Sclera is anicteric. Neck; supple no lymphadenopathy, no thyromegaly or bruit Lungs: Normal respiratory rate/effort. Breath sounds bilateral equal and clear Heart: normal rate. s1s2 normal. No rub or gallop. has PPM and A fib Extremities: no edema. No varicose veins Neurological: Patient is alert, awake and oriented x3 No other focal deficit. Strength bilateral appropriate and equal Skin: Warm and dry. Normal turgor. No rash. Palpitation: Normal elasticity for age Abdomen: Abdomen is soft. Bowel sounds +. There is no abdominal tenderness, no guarding/rigidity or organomegaly Psych: limited insight and has normal affect/mood MSK: no joint tenderness or swelling. Digits and nails normal, no deformity : kidney or bladder not palpable Labs/imaging/EKG reviewed. Past medical history, past surgical history,social history, allergy reviewed and noted as below FAMILy HX; no hx of CKD. non contributory work up: CT 2017: s/p Rt nephrectomy, left kidney unremarkable Vit D 35 PTH 70 TSAT 10% Ferritin 30 Objective - Vital Signs/Intake and Output Vital Signs (last 24 hours): Temp Pulse Resp BP Pulse Ox 97.7 F 60 16 104/58 L 100 05/20/17 17:48 05/21/17 10:58 05/20/17 17:48 05/21/17 10:58 05/20/17 17:48 - Medications Medications: Current Medications Acetaminophen (Tylenol 325mg Tab) 650 mg PO Q4H PRN PRN Reason: Pain, Mild (1-3) Alprazolam (Xanax) 0.5 mg PO BID PRN; Protocol PRN Reason: Anxiety Last Admin: 05/21/17 11:05 Dose: 0.5 mg Apixaban (Eliquis) 2.5 mg PO BID [facility] PRN Reason: Protocol Last Admin: 05/21/17 11:00 Dose: 2.5 mg Atorvastatin Calcium (Lipitor) 20 mg PO DIN [facility] PRN Reason: Protocol Last Admin: 05/20/17 17:36 Dose: 20 mg Darbepoetin Xavier (Aranesp) 60 mcg SC ONCE ONE Stop: 05/21/17 14:00 Diltiazem HCl (Cardizem Cd) 180 mg PO DAILY [facility] Last Admin: 05/21/17 10:58 Dose: Not Given Donepezil HCl (Aricept) 10 mg PO HS [facility] PRN Reason: Protocol Last Admin: 05/20/17 21:36 Dose: 10 mg Ferrous Gluconate (Fergon) 324 mg PO TID [facility] PRN Reason: Protocol Last Admin: 05/21/17 11:00 Dose: 324 mg Sodium Chloride (Sodium Chloride 0.9%) 1,000 mls @ 50 mls/hr IV .Q20H [facility] Stop: 05/22/17 10:16 Metoprolol Tartrate (Lopressor) 25 mg PO 0800,1800 [facility] PRN Reason: Protocol Last Admin: 05/21/17 08:08 Dose: 25 mg Oxycodone/Acetaminophen (Percocet 2.5/325 Mg Tab) 1 tab PO Q4H PRN; Protocol PRN Reason: Pain, moderate (4-7) Last Admin: 05/21/17 05:45 Dose: 1 tab Pantoprazole Sodium (Protonix Ec Tab) 40 mg PO 0600,1800 [facility] PRN Reason: Protocol Last Admin: 05/21/17 05:30 Dose: 40 mg Vitamin B Complex/Vit C/Folic Acid (Nephro-Haider) 1 tab PO 0800 [facility] PRN Reason: Protocol Last Admin: 05/21/17 08:09 Dose: 1 tab - Labs Labs: 05/21/17 05:20 05/21/17 05:20 PT 15.3 SECONDS (9.4-12.5) H 05/20/17 09:30 INR 1.32 (0.93-1.08) H 05/20/17 09:30
[2017-05-21] MEDS: Sodium Chloride 0.9% 1,000 ML IV SCH (12:46)
[2017-05-21] MEDS ORDERED: Darbepoetin Alfa 60 mcg/ml Inj SC ONE (13:59)
--- NOTE | 2017-05-21 14:02 | PN ---
DATE: SUBJECTIVE: She is resting comfortably in the Transitional Care Unit. She is trying physical therapy. She started to eat better. She is on Aricept, Aranesp, Cardizem, Eliquis, Fergon, Lasix, Lipitor, Lopressor, Nephro-Haider, Percocet, Protonix, Tylenol, and Xanax. PHYSICAL EXAMINATION: VITAL SIGNS: She has a 97.7 temperature, 62 pulse, 108/57 blood pressure, 16 respiratory rate, 100% O2 sat on room air. HEENT: Head is atraumatic, normocephalic. Throat is moist. NECK: Supple. HEART: Regular rate. LUNGS: Decreased breath sounds, but clear. ABDOMEN: Soft, nontender. Positive bowel sounds. EXTREMITIES: No edema. LABORATORY DATA: She has a 6.4 white count, 9.3 hemoglobin, 29.9 hematocrit with 218 platelets. Sodium 141, potassium is 5.3. I will give her some Kayexalate. BUN 57, creatinine 2.2. GFR is 21. Sugar is 89. Calcium is 9.9. Total bili is 0.3, AST is 27, ALT is 26, alk phos is 68. She has been seen by Renal and Cardiology Physical Therapy. She has acute kidney injury and chronic kidney injury, hypertension, vitamin D deficiency, severe pulmonary hypertension, dementia. Continue , Renal, Cardiology, and Physical Therapy. I will check her labs tomorrow. I will give her Kayexalate for elevating potassium. She has chronic atrial flutter, tachycardia, and tachy-herminia syndrome. Continue with aggressive treatment and care. Marco Farris DO
[2017-05-22] MEDS: Oxycodone/Acetaminophen 2.5/325 mg Tab PO PRN ×4 (03:30→21:38)
[2017-05-22] MEDS: Sodium Chloride 0.9% 1,000 ML IV SCH (05:21)
[2017-05-22] MEDS: Pantoprazole 40 mg EC Tab PO SCH ×2 (05:21→18:54)
[2017-05-22 07:15] LABS: HEMOGLOBIN 8.5 g/dL (12.0-16.0); MEAN CELL VOLUME 87.1 fl (80.0-105.0); MEAN CORPUSCULAR HEMOGLOBIN 27.3 pg (25.0-35.0); MEAN CORPUSCULAR HGB CONC 31.4 g/dl (31.0-37.0); MEAN PLATELET VOLUME 9.3 fl (7.0-11.0); RBC 3.11 10^6/uL (3.5-6.1); RED CELL DISTRIBUTION WIDTH 18.2 % (11.5-14.5); WHITE BLOOD COUNT 6.4 10^3/ul (4.5-11.0)
[2017-05-22] MEDS: diltiaZEM 180 mg/24 Hours CD Cap PO SCH (09:49)
[2017-05-22] MEDS: Multivitamin Vitamin B Complex (Nephro-Vite) Tab PO SCH (09:49)
[2017-05-22] MEDS ORDERED: Alum-Mag Hydrox-Simethicone Susp (30 mL) PO ONE (12:16)
[2017-05-22] MEDS ORDERED: Alum-Mag Hydrox-Simethicone Susp (30 mL) PO PRN (12:44)
--- NOTE | 2017-05-22 16:00 | PN ---
DATE: SUBJECTIVE: I saw Sarah resting comfortably in bed. She gas and she wants something for the gas. She has had Mylanta before so I am going to give her some Mylanta. She is trying physical therapy. She gets pain from time to time, but the Percocets are helping her. OBJECTIVE VITAL SIGNS: Temperature of 97.6, pulse 80, 124/64 blood pressure, 18 respiratory rate, 91%-99% O2 sat on room air. HEENT: Head is atraumatic, normocephalic. HEART: Regular rate. LUNGS: Decreased breath sounds, but clear. ABDOMEN: Soft. Positive bowel sounds. Mildly distended possibly, but nontender. EXTREMITIES: No edema. Like to get her out of bed to chair. She is on Aricept, Cardizem, Eliquis, Fergon, Lipitor, Lopressor, Maalox, Nephro-Haider, Percocet, Protonix, Tylenol and Xanax. LABORATORY DATA: She has a 139 sodium, potassium 4.2, BUN is 44, creatinine 1.8 and better, GFR is 27, calcium is 9, total bili is 0.3, AST is 26, ALT is 25, alkaline phosphatase 55, total protein 6.2. She has a 6.4 white count; 8.5 hemoglobin and it is pretty low, we will keep an eye on that; 27.1 hematocrit with 240,000 platelets. She is being seen by Renal and Cardiology. She had dyspnea on exertion. Supratherapeutic INR, AFib, COPD, anemia, atrial flutter, renal insufficiency, acute kidney injury and anemia. Continue to watch her very closely. Get her out of bed to chair. Check her labs tomorrow. Marco Farris DO MTDD
--- NOTE | 2017-05-22 23:41 | CP.PCM.PN ---
Subjective - Date & Time of Evaluation Date of Evaluation: 05/22/17 Time of Evaluation: 15:00 - Subjective Subjective: Nephrology Consultation Note: Assessment: stable PATRICIA likely due to low BP/hemodynamic injury with hyperkalemia and acidosis ( improved) severe symptomatic anemia Chronic Kidney Disease Stage 3 (N18.3) with 322 mg proteinuria possibly due to HTN, age related decline, and s/p Rt nephrectomy due to hx of RCC Hypertension controlled (I12.9) Vit D insufficiency with secondary hyperparathyroidism hx of severe pulmonary HTN (RVSP 81 mm Hg) and moderate to severe LVH hx of dementia bradycardia s/p PPM Plan no acute need of renal replacement therapy at this time cr is improving can continue fluids for another day and then stop no ACEI or ARB due to PATRICIA and hyperkalemia. maintain hemodynamic stable. anemia management: PRBC as needed and renee as needed Physical Examination: General Appearance: Comfortable, in no acute respiratory distress, co-operative . Vitals reviewed and noted as below Head; Atraumatic, normocephalic ENT: no ulcers no thrush. Tongue is midline. Oropharynx: no rash or ulcers. EYES: Eye muscles and extraocular movement intact. Sclera is anicteric. Neck; supple no lymphadenopathy, no thyromegaly or bruit Lungs: Normal respiratory rate/effort. Breath sounds bilateral equal and clear Heart: normal rate. s1s2 normal. No rub or gallop. has PPM and A fib Extremities: no edema. No varicose veins Neurological: Patient is alert, awake and oriented x3 No other focal deficit. Strength bilateral appropriate and equal Skin: Warm and dry. Normal turgor. No rash. Palpitation: Normal elasticity for age Abdomen: Abdomen is soft. Bowel sounds +. There is no abdominal tenderness, no guarding/rigidity or organomegaly Psych: limited insight and has normal affect/mood MSK: no joint tenderness or swelling Objective - Vital Signs/Intake and Output Vital Signs (last 24 hours): Temp Pulse Resp BP Pulse Ox 98.7 F 119 H 20 111/64 93 L 05/22/17 16:50 05/22/17 16:50 05/22/17 16:50 05/22/17 16:50 05/22/17 16:50 - Medications Medications: Current Medications Acetaminophen (Tylenol 325mg Tab) 650 mg PO Q4H PRN PRN Reason: Pain, Mild (1-3) Al Hydrox/Mg Hydrox/Simethicone (Maalox Plus 30 Ml) 30 ml PO DAILY PRN PRN Reason: Indigestion / Heartburn Alprazolam (Xanax) 0.5 mg PO BID PRN; Protocol PRN Reason: Anxiety Last Admin: 05/21/17 11:05 Dose: 0.5 mg Apixaban (Eliquis) 2.5 mg PO BID [facility] PRN Reason: Protocol Last Admin: 05/22/17 18:55 Dose: 2.5 mg Atorvastatin Calcium (Lipitor) 20 mg PO DIN [facility] PRN Reason: Protocol Last Admin: 05/22/17 18:55 Dose: 20 mg Diltiazem HCl (Cardizem Cd) 180 mg PO DAILY [facility] Last Admin: 05/22/17 09:49 Dose: Not Given Donepezil HCl (Aricept) 10 mg PO HS [facility] PRN Reason: Protocol Last Admin: 05/22/17 21:39 Dose: 10 mg Ferrous Gluconate (Fergon) 324 mg PO TID [facility] PRN Reason: Protocol Last Admin: 05/22/17 18:55 Dose: 324 mg Metoprolol Tartrate (Lopressor) 25 mg PO 0800,1800 [facility] PRN Reason: Protocol Last Admin: 05/22/17 18:55 Dose: 25 mg Oxycodone/Acetaminophen (Percocet 2.5/325 Mg Tab) 1 tab PO Q4H PRN; Protocol PRN Reason: Pain, moderate (4-7) Last Admin: 05/22/17 21:38 Dose: 1 tab Pantoprazole Sodium (Protonix Ec Tab) 40 mg PO 0600,1800 [facility] PRN Reason: Protocol Last Admin: 05/22/17 18:54 Dose: 40 mg Vitamin B Complex/Vit C/Folic Acid (Nephro-Haider) 1 tab PO 0800 [facility] PRN Reason: Protocol Last Admin: 05/22/17 09:49 Dose: 1 tab - Labs Labs: 05/22/17 06:00 05/22/17 06:00 PT 15.3 SECONDS (9.4-12.5) H 05/20/17 09:30 INR 1.32 (0.93-1.08) H 05/20/17 09:30
[2017-05-23] MEDS: Pantoprazole 40 mg EC Tab PO SCH ×2 (06:08→17:44)
[2017-05-23] MEDS: Oxycodone/Acetaminophen 2.5/325 mg Tab PO PRN ×4 (06:08→21:21)
[2017-05-23 07:01] LABS: HEMOGLOBIN 8.7 g/dL (12.0-16.0); MEAN CELL VOLUME 87.8 fl (80.0-105.0); MEAN CORPUSCULAR HEMOGLOBIN 26.4 pg (25.0-35.0); MEAN CORPUSCULAR HGB CONC 30.1 g/dl (31.0-37.0); MEAN PLATELET VOLUME 9.5 fl (7.0-11.0); RBC 3.29 10^6/uL (3.5-6.1); RED CELL DISTRIBUTION WIDTH 17.8 % (11.5-14.5); WHITE BLOOD COUNT 5.6 10^3/ul (4.5-11.0)
[2017-05-23 07:29] LABS: ALB/GLOB RATIO 0.9 (1.1-1.8); ALBUMIN 3.1 g/dL (3.0-4.8); CALCIUM 9.5 mg/dL (8.4-10.5)
[2017-05-23] MEDS ORDERED: TraMADol/Apap 37.5/325 mg Tab PO PRN (09:23)
[2017-05-23] MEDS: diltiaZEM 180 mg/24 Hours CD Cap PO SCH (09:43)
[2017-05-23] MEDS: Multivitamin Vitamin B Complex (Nephro-Vite) Tab PO SCH (09:44)
--- NOTE | 2017-05-23 13:12 | PN ---
DATE: SUBJECTIVE: I saw her in the Transitional Care Unit. She is resting comfortably in bed. She ate breakfast well. She is alert. No complaints of pain this morning. She is on Aricept, Cardizem, Eliquis, Fergon, Lipitor, Lopressor, Maalox, Nephro-Haider, Percocet, Protonix, Tylenol, Xanax. I added Ultracet for moderate pain and will be on Percocet for severe pain. Trying to get her off the Percocets. PHYSICAL EXAMINATION: VITAL SIGNS: She has a 98.2 temperature, 118 pulse, 118/57 blood pressure, 17 respiratory rate, 100% O2 sat on room air. I then increased Lopressor to 50 mg twice day because her pulse has been a little bit fast today. HEENT: Head: Atraumatic, normocephalic. HEART: Regular rate. LUNGS: Decreased breath sounds, but clear. ABDOMEN: Soft. EXTREMITIES: No edema. LABORATORY DATA: She has a 5.6 white count, 8.7 hemoglobin, 28.9 hematocrit with 249 platelets. She has a 144 sodium, potassium 4.4, BUN 38, creatinine 1.6, best it has been, GFR is 31, sugar is 95, calcium is 9.5, total bili is 0.2, AST is 43, ALT is 36, alkaline phosphatase 76, total protein 6.4. She is being seen by Podiatry, Renal, and Cardiology. I will increase her beta-khloe. Gave her a choice of Ultracet versus Percocet. I will see if that is okay with Renal. Continue with aggressive treatment and care. Marco Farris DO
[2017-05-24] MEDS: Pantoprazole 40 mg EC Tab PO SCH ×2 (05:40→17:40)
[2017-05-24] MEDS: Oxycodone/Acetaminophen 2.5/325 mg Tab PO PRN ×3 (05:42→23:26)
[2017-05-24 06:26] LABS: HEMOGLOBIN 8.5 g/dL (12.0-16.0); MEAN CELL VOLUME 87.2 fl (80.0-105.0); MEAN CORPUSCULAR HEMOGLOBIN 27.2 pg (25.0-35.0); MEAN CORPUSCULAR HGB CONC 31.3 g/dl (31.0-37.0); MEAN PLATELET VOLUME 8.6 fl (7.0-11.0); RBC 3.12 10^6/uL (3.5-6.1); WHITE BLOOD COUNT 5.5 10^3/ul (4.5-11.0)
[2017-05-24 06:55] LABS: ALB/GLOB RATIO 0.9 (1.1-1.8); ALBUMIN 3.1 g/dL (3.0-4.8); CALCIUM 9.5 mg/dL (8.4-10.5)
[2017-05-24] MEDS: Multivitamin Vitamin B Complex (Nephro-Vite) Tab PO SCH (08:35)
--- NOTE | 2017-05-24 10:51 | CP.PCM.PN ---
Subjective - Date & Time of Evaluation Date of Evaluation: 05/24/17 Time of Evaluation: 10:49 - Subjective Subjective: Nephrology Consultation Note: Assessment: stable PATRICIA likely due to low BP/hemodynamic injury with hyperkalemia and acidosis ( improved) severe symptomatic anemia Chronic Kidney Disease Stage 3 (N18.3) with 322 mg proteinuria possibly due to HTN, age related decline, and s/p Rt nephrectomy due to hx of RCC Hypertension controlled (I12.9) Vit D insufficiency with secondary hyperparathyroidism hx of severe pulmonary HTN (RVSP 81 mm Hg) and moderate to severe LVH hx of dementia bradycardia s/p PPM Plan no acute need of renal replacement therapy at this time no ACEI or ARB due to PATRICIA and hyperkalemia. maintain hemodynamic stable. avoid hypotension. pt getting meds to control A fib rate anemia management: PRBC as needed, started on iron 324 mg TID and MVI. dose of aransep 60 mcg 05/21/17 GI following. heme consulted FLC ratio WNL lasix resume as 20 mg q 2 day Dose meds/antibiotics for reduced GFR. Avoid fleets enema/magnesium based laxatives. Avoid nephrotoxins/NSAIDs/IV iodinated contrast (unless emergent) Further work up as per primary team Thanks for allowing me to participate in care of your patient. will follow with you. Please call if any Qs Dr Jt Lemon Office: [phone] Reason for consult: CKD and PATRICIA HPI: Pt is a 81 y/o F with hx of hypertension (20 years) , renal cell cancer s/ p unilateral total nephrectomy, CKD stage 3 with baseline cr 1.4-1.7 since 2017 but intermittent episodes of PATRICIA, chronic anemia, A fib, bradycardia s/p PPM admitted with SOB, and severe anemia Which improved after blood transfusion patient now in rehabilitation. seen for renal consult now she feels better. improved SOB. denies chest pain/nausea or urinary complaints. rest all other negative. ROS: denies CP/nausea/vomitting/pain abdomen or urine complaints. SOB resolved all other negative except as in HPI. feels tired today Physical Examination: General Appearance: Comfortable, in no acute respiratory distress, co-operative . Vitals reviewed and noted as below Head; Atraumatic, normocephalic ENT: no ulcers no thrush. Tongue is midline. Oropharynx: no rash or ulcers. EYES: Pupils are equal, round and reactive to light accommodation. Eye muscles and extraocular movement intact. Sclera is anicteric. Neck; supple no lymphadenopathy, no thyromegaly or bruit Lungs: Normal respiratory rate/effort. Breath sounds bilateral equal and few basal crackles Heart: normal rate. s1s2 normal. No rub or gallop. has PPM and A fib Extremities: trace edema. No varicose veins Neurological: Patient is alert, awake and oriented x3 No other focal deficit. Strength bilateral appropriate and equal Skin: Warm and dry. Normal turgor. No rash. Palpitation: Normal elasticity for age Abdomen: Abdomen is soft. Bowel sounds +. There is no abdominal tenderness, no guarding/rigidity or organomegaly Psych: limited insight and has normal affect/mood MSK: no joint tenderness or swelling. Digits and nails normal, no deformity : kidney or bladder not palpable Labs/imaging/EKG reviewed. Past medical history, past surgical history,social history, allergy reviewed and noted as below FAMILy HX; no hx of CKD. non contributory work up: CT 2017: s/p Rt nephrectomy, left kidney unremarkable Vit D 35 PTH 70 TSAT 10% Ferritin 30 Objective - Vital Signs/Intake and Output Vital Signs (last 24 hours): Temp Pulse Resp BP Pulse Ox 98.2 F 62 18 117/65 99 05/23/17 17:31 18 08:35 05/23/17 17:31 05/24/17 08:35 05/23/17 17:31 - Medications Medications: Current Medications Acetaminophen (Tylenol 325mg Tab) 650 mg PO Q4H PRN PRN Reason: Pain, moderate (4-7) Al Hydrox/Mg Hydrox/Simethicone (Maalox Plus 30 Ml) 30 ml PO DAILY PRN PRN Reason: Indigestion / Heartburn Alprazolam (Xanax) 0.5 mg PO BID PRN; Protocol PRN Reason: Anxiety Last Admin: 05/23/17 04:19 Dose: 0.5 mg Apixaban (Eliquis) 2.5 mg PO BID ISAI PRN Reason: Protocol Last Admin: 05/23/17 17:40 Dose: 2.5 mg Atorvastatin Calcium (Lipitor) 20 mg PO DIN ISAI PRN Reason: Protocol Last Admin: 05/23/17 17:42 Dose: 20 mg Diltiazem HCl (Cardizem Cd) 180 mg PO DAILY [facility] Last Admin: 05/23/17 09:43 Dose: 180 mg Donepezil HCl (Aricept) 10 mg PO HS ISAI PRN Reason: Protocol Last Admin: 05/23/17 21:16 Dose: 10 mg Ferrous Gluconate (Fergon) 324 mg PO TID [facility]AI PRN Reason: Protocol Last Admin: 05/23/17 17:42 Dose: 324 mg Furosemide (Lasix) 20 mg PO Q2D [facility] Metoprolol Tartrate (Lopressor) 50 mg PO 0800,1800 [facility] PRN Reason: Protocol Last Admin: 05/24/17 08:35 Dose: 50 mg Oxycodone/Acetaminophen (Percocet 2.5/325 Mg Tab) 1 tab PO Q4H PRN; Protocol PRN Reason: Pain, severe (8-10) Last Admin: 05/24/17 05:42 Dose: 1 tab Pantoprazole Sodium (Protonix Ec Tab) 40 mg PO 0600,1800 [facility] PRN Reason: Protocol Last Admin: 05/24/17 05:40 Dose: 40 mg Vitamin B Complex/Vit C/Folic Acid (Nephro-Haider) 1 tab PO 0800 [facility] PRN Reason: Protocol Last Admin: 05/24/17 08:35 Dose: 1 tab - Labs Labs: 05/24/17 05:30 05/24/17 05:30 PT 15.3 SECONDS (9.4-12.5) H 05/20/17 09:30 INR 1.32 (0.93-1.08) H 05/20/17 09:30
--- NOTE | 2017-05-24 11:23 | PN ---
DATE: SUBJECTIVE: I saw Sarah resting comfortably in bed in the Psych Unit. She is eating well, doing better, walking better, good spirits. No acute distress or complaints to me this morning. PHYSICAL EXAMINATION: VITAL SIGNS: She has a 98.2 temp, 64 pulse, 125/66 blood pressure, 18 respiratory rate, 99% O2 sat on 2 L. HEENT: Head is atraumatic, normocephalic. HEART: Regular rate. LUNGS: Clear to auscultation. ABDOMEN: Soft. EXTREMITIES: No edema and she is walking better. MEDICATIONS: She is on Aricept, Cardizem, Eliquis, Fergon, Lipitor, Lopressor, Maalox, Nephro-Haider, Percocet, Protonix, Tylenol, Xanax. I am hoping that she uses more Tylenol than Percocet. I discussed that with the patient at length. LABORATORY DATA: She has a 141 sodium, potassium 4.4, BUN is 37, creatinine 1.6, GFR is 31, sugar is 96, calcium is 9.5, total bili is 0.2, AST is 33, ALT is 38, alk phos 75, total protein 6.4. White count is 5.5, hemoglobin 8.5, hematocrit 27.2, platelets of 226. ASSESSMENT AND PLAN: She is doing better. She is being seen by Renal, Cardiology. She will be discharged tomorrow. I encouraged her to do well with therapy, out of bed to chair. I am also going to decrease the Percocet, increase the Tylenol as needed and I will be discharging her tomorrow. We will check her labs tomorrow. Marco Farris DO
[2017-05-24] MEDS: diltiaZEM 180 mg/24 Hours CD Cap PO SCH (12:00)
[2017-05-25 07:18] LABS: HEMOGLOBIN 8.3 g/dL (12.0-16.0); MEAN CORPUSCULAR HEMOGLOBIN 26.9 pg (25.0-35.0); MEAN PLATELET VOLUME 9.3 fl (7.0-11.0); RBC 3.08 10^6/uL (3.5-6.1); RED CELL DISTRIBUTION WIDTH 18.1 % (11.5-14.5); WHITE BLOOD COUNT 5.7 10^3/ul (4.5-11.0)
[2017-05-25 07:51] LABS: ALB/GLOB RATIO 0.9 (1.1-1.8); CALCIUM 9.3 mg/dL (8.4-10.5)
[2017-05-25] MEDS: Multivitamin Vitamin B Complex (Nephro-Vite) Tab PO SCH (08:30)
[2017-05-25] MEDS: diltiaZEM 180 mg/24 Hours CD Cap PO SCH (09:39)
--- NOTE | 2017-05-25 12:17 | CP.PCM.PN ---
Subjective - Date & Time of Evaluation Date of Evaluation: 05/25/17 Time of Evaluation: 12:16 - Subjective Subjective: Nephrology Consultation Note: Assessment: stable PATRICIA likely due to low BP/hemodynamic injury with hyperkalemia and acidosis ( improved) severe symptomatic anemia Chronic Kidney Disease Stage 3 (N18.3) with 322 mg proteinuria possibly due to HTN, age related decline, and s/p Rt nephrectomy due to hx of RCC Hypertension controlled (I12.9) Vit D insufficiency with secondary hyperparathyroidism hx of severe pulmonary HTN (RVSP 81 mm Hg) and moderate to severe LVH hx of dementia bradycardia s/p PPM Plan no acute need of renal replacement therapy at this time no ACEI or ARB due to PATRICIA and hyperkalemia. maintain hemodynamic stable. avoid hypotension. pt getting meds to control A fib rate anemia management: PRBC as needed, started on iron 324 mg TID and MVI. dose of aransep 60 mcg 05/21/17 GI following. heme consulted FLC ratio WNL lasix resume as 20 mg q 2 day Dose meds/antibiotics for reduced GFR. Avoid fleets enema/magnesium based laxatives. Avoid nephrotoxins/NSAIDs/IV iodinated contrast (unless emergent) Further work up as per primary team pt planned for d/c home today. stable for d/c from renal perspective. Thanks for allowing me to participate in care of your patient. pt was advised to f/up in 1 week. Please call if any Qs Dr Jt Lemon Office: [phone] Reason for consult: CKD and PATRICIA HPI: Pt is a 81 y/o F with hx of hypertension (20 years) , renal cell cancer s/ p unilateral total nephrectomy, CKD stage 3 with baseline cr 1.4-1.7 since 2017 but intermittent episodes of PATRICIA, chronic anemia, A fib, bradycardia s/p PPM admitted with SOB, and severe anemia Which improved after blood transfusion patient now in rehabilitation. seen for renal consult now she feels better. improved SOB. denies chest pain/nausea or urinary complaints. rest all other negative. ROS: denies CP/nausea/vomitting/pain abdomen or urine complaints. SOB resolved all other negative except as in HPI. feels well today Physical Examination: General Appearance: Comfortable, in no acute respiratory distress, co-operative . Vitals reviewed and noted as below Head; Atraumatic, normocephalic ENT: no ulcers no thrush. Tongue is midline. Oropharynx: no rash or ulcers. EYES: Pupils are equal, round and reactive to light accommodation. Eye muscles and extraocular movement intact. Sclera is anicteric. Neck; supple no lymphadenopathy, no thyromegaly or bruit Lungs: Normal respiratory rate/effort. Breath sounds bilateral equal and clear Heart: normal rate. s1s2 normal. No rub or gallop. has PPM and A fib Extremities: no edema. No varicose veins Neurological: Patient is alert, awake and oriented x3 No other focal deficit. Strength bilateral appropriate and equal Skin: Warm and dry. Normal turgor. No rash. Palpitation: Normal elasticity for age Abdomen: Abdomen is soft. Bowel sounds +. There is no abdominal tenderness, no guarding/rigidity or organomegaly Psych: limited insight and has normal affect/mood MSK: no joint tenderness or swelling. Digits and nails normal, no deformity : kidney or bladder not palpable Labs/imaging/EKG reviewed. Past medical history, past surgical history,social history, allergy reviewed and noted as below FAMILy HX; no hx of CKD. non contributory work up: CT 2017: s/p Rt nephrectomy, left kidney unremarkable Vit D 35 PTH 70 TSAT 10% Ferritin 30 Objective - Vital Signs/Intake and Output Vital Signs (last 24 hours): Temp Pulse Resp BP Pulse Ox 97.9 F 65 16 124/67 94 L 05/24/17 18:15 05/25/17 09:39 05/24/17 18:15 05/25/17 09:39 05/24/17 18:15 - Medications Medications: Current Medications Acetaminophen (Tylenol 325mg Tab) 650 mg PO Q4H PRN PRN Reason: Pain, moderate (4-7) Last Admin: 05/25/17 09:47 Dose: 650 mg Al Hydrox/Mg Hydrox/Simethicone (Maalox Plus 30 Ml) 30 ml PO DAILY PRN PRN Reason: Indigestion / Heartburn Alprazolam (Xanax) 0.5 mg PO BID PRN; Protocol PRN Reason: Anxiety Last Admin: 05/24/17 21:27 Dose: 0.5 mg Apixaban (Eliquis) 2.5 mg PO BID [facility]AI PRN Reason: Protocol Last Admin: 05/25/17 09:39 Dose: 2.5 mg Atorvastatin Calcium (Lipitor) 20 mg PO DIN ISAI PRN Reason: Protocol Last Admin: 05/24/17 17:41 Dose: 20 mg Diltiazem HCl (Cardizem Cd) 180 mg PO DAILY [facility] Last Admin: 05/25/17 09:39 Dose: 180 mg Donepezil HCl (Aricept) 10 mg PO HS [facility]AI PRN Reason: Protocol Last Admin: 05/24/17 21:27 Dose: 10 mg Ferrous Gluconate (Fergon) 324 mg PO TID [facility] PRN Reason: Protocol Last Admin: 05/25/17 09:39 Dose: 324 mg Furosemide (Lasix) 20 mg PO Q2D [facility] Last Admin: 05/24/17 12:02 Dose: 20 mg Metoprolol Tartrate (Lopressor) 50 mg PO 0800,1800 [facility] PRN Reason: Protocol Last Admin: 05/25/17 08:30 Dose: 50 mg Pantoprazole Sodium (Protonix Ec Tab) 40 mg PO 0600,1800 [facility] PRN Reason: Protocol Last Admin: 05/24/17 17:40 Dose: 40 mg Vitamin B Complex/Vit C/Folic Acid (Nephro-Haider) 1 tab PO 0800 [facility] PRN Reason: Protocol Last Admin: 05/25/17 08:30 Dose: 1 tab - Labs Labs: 05/25/17 06:30 05/25/17 06:30 PT 15.3 SECONDS (9.4-12.5) H 05/20/17 09:30 INR 1.32 (0.93-1.08) H 05/20/17 09:30
[2017-05-25 14:01] VITALS: BP 134/60; PULSE 43; RESP 18; TEMP 97.5; O2SAT 98
--- NOTE | 2017-05-26 03:41 | DS ---
HISTORY OF PRESENT ILLNESS: She is resting comfortably in bed. She is eating breakfast. She did well here. She is on Aricept, Cardizem, Eliquis, Fergon, Lasix, Lipitor, Lopressor, Nephro-Haider, Protonix, Tylenol, Xanax - provide prescriptions for those medications. She will be seen on a house call. PHYSICAL EXAMINATION: VITAL SIGNS: She has a 97.9 temp, 67 pulse, 129/70 blood pressure, 16 respiratory rate, 94% O2 sat. HEENT: Head is atraumatic, normocephalic. HEART: Regular rate. LUNGS: Clear to auscultation. ABDOMEN: Soft. EXTREMITIES: No edema. She looks very well. She has definitely improved. LABORATORY DATA: She had a blood test, 141 sodium; potassium 4.2; BUN 36; creatinine 1.8, GFR is 27, sugar is 89, calcium is 9.3, total bili is 0.1, AST is 29, ALT is 31, alk phos 69, total protein 6.3. White count is 5.7, hemoglobin is 8.3; she has been better and she has been worse; hematocrit is 26.8, platelets is 234. ASSESSMENT AND PLAN: She will be discharged today with outpatient followup. 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 We will check her labs in a week. We will see her on a house call in a week. Marco Farris DO MTDD
== END 2017-05-25 16:27 | disposition home or self-care (01) | DRG 309 ==
LOC: TRCU 14:40
PROVIDERS: ADMIT Family Medicine; ATTEND Family Medicine
PROC: F07Z9FZ Gait Training/Functional Ambulation Treatment using Assistive, Adaptive, Supportive or Protective Equipment (ICD-10-PCS; principal; 2017-05-18)
PROC: F08Z4FZ Home Management Treatment using Assistive, Adaptive, Supportive or Protective Equipment (ICD-10-PCS; 2017-05-18)
DX: I48.91 Unspecified atrial fibrillation (principal); I48.92 Unspecified atrial flutter; N17.9 Acute kidney failure, unspecified; E87.2 Acidosis; E87.5 Hyperkalemia; N25.81 Secondary hyperparathyroidism of renal origin; I13.0 Hypertensive heart and chronic kidney disease with heart failure and stage 1 through stage 4 chronic kidney disease, or unspecified chronic kidney disease; D64.9 Anemia, unspecified; I27.20 Pulmonary hypertension, unspecified; I50.9 Heart failure, unspecified; N18.3 Chronic kidney disease, stage 3 (moderate); J44.9 Chronic obstructive pulmonary disease, unspecified; E55.9 Vitamin D deficiency, unspecified; K21.9 Gastro-esophageal reflux disease without esophagitis; F41.9 Anxiety disorder, unspecified; F03.90 Unspecified dementia, unspecified severity, without behavioral disturbance, psychotic disturbance, mood disturbance, and anxiety; Z90.5 Acquired absence of kidney; Z85.528 Personal history of other malignant neoplasm of kidney; Z87.891 Personal history of nicotine dependence; Z95.0 Presence of cardiac pacemaker

== ENCOUNTER 2017-05-27 05:15 | Observation (INO) | payer MEDICARE ==
[2017-05-27 05:16] VITALS: PULSE 45
--- NOTE | 2017-05-27 05:34 | ED PDOC ---
Arrival/HPI - General Chief Complaint: Respiratory Distress Time Seen by Provider: 05/27/17 05:30 Historian: Patient, EMS - History of Present Illness Narrative History of Present Illness (Text): 05/27/17 05:34 Sarah Baker is an 81 year old female, whose past medical history includes atrial fibrillation, COPD, CHF, pacemaker, dementia, renal insufficiency, and anxiety, who presents to the Emergency department brought in by EMS complaining of rapid heart rate with associated exertional dyspnea and occasional chest discomfort tonight. Patient was given Cardizem en route to the ER by EMS for rapid atrial fibrillation. Patient denies any fever, chills, abdominal pain, nausea, vomiting ,back pain, neck pain, headache, dizziness, or any other complaints. PMD: Dr. Farris Account Development Specialist: Dr. Fonseca Symptom Onset: Gradual Symptom Course: Unchanged Activities at Onset: Light Context: Home Past Medical History - Provider Review Nursing Documentation Reviewed: Yes - Infectious Disease Hx of Infectious Diseases: None - Tetanus Immunization Tetanus Immunization: >10 years Ago - Cardiac Hx Cardiac Disorders: Yes Hx Atrial Fibrillation: Yes Hx Congestive Heart Failure: Yes Hx Hypertension: Yes - Pulmonary Hx Respiratory Disorders: Yes (USED TO SMOKE 6 CIG A DAY) - Neurological Hx Neurological Disorder: Yes Hx Dementia: Yes Hx Dizziness: Yes (SYNCOPE) - HEENT Hx HEENT Disorder: Yes (glasses) - Renal Hx Renal Disorder: Yes - Endocrine/Metabolic Hx Endocrine Disorders: No - Hematological/Oncological Hx Cancer: No - Integumentary Hx Dermatological Disorder: No - Musculoskeletal/Rheumatological Hx Arthritis: Yes - Gastrointestinal Hx Gastrointestinal Disorders: Yes Hx Gastroesophageal Reflux: Yes - Genitourinary/Gynecological Hx Reproductive Disorders: No - Psychiatric Hx Psychophysiologic Disorder: Yes Hx Anxiety: Yes Hx Substance Use: No - Surgical History Hx Mastectomy: No - Anesthesia Hx Anesthesia: Yes Hx Anesthesia Reactions: No Hx Malignant Hyperthermia: No Family/Social History - Physician Review Nursing Documentation Reviewed: Yes Family/Social History: Unknown Family HX Smoking Status: Former Smoker Hx Alcohol Use: No Hx Substance Use: No Allergies/Home Meds Allergies/Adverse Reactions: Allergies No Known Allergies Allergy (Verified 05/27/17 05:34) Review of Systems - Physician Review All systems were reviewed & negative as marked: Yes - Review of Systems Constitutional: Normal. absent: Fevers Eyes: Normal ENT: Normal Respiratory: SOB Cardiovascular: Chest Pain, Palpitations Gastrointestinal: Normal. absent: Abdominal Pain, Constipation, Diarrhea, Nausea, Vomiting Genitourinary Female: Normal. absent: Dysuria, Frequency, Hematuria, Urine Output Changes Musculoskeletal: Normal. absent: Back Pain, Neck Pain Skin: Normal. absent: Rash Neurological: Normal. absent: Headache, Dizziness Endocrine: Normal Hemo/Lymphatic: Normal Psychiatric: Normal Physical Exam Vital Signs Reviewed: Yes Vital Signs Temp Pulse Resp BP Pulse Ox 05/27/17 10:29 93 H 16 100 05/27/17 10:09 135 H 154/104 H 05/27/17 10:06 135 H 156/104 H 05/27/17 09:51 135 H 18 156/104 H 100 05/27/17 07:23 92 H 18 147/74 100 05/27/17 05:53 18 99 05/27/17 05:33 98.5 F 96 H 18 154/64 H 98 Temperature: Afebrile Blood Pressure: Hypertensive Pulse: Regular Respiratory Rate: Normal Appearance: Positive for: Well-Appearing, Non-Toxic, Comfortable Pain Distress: None Mental Status: Positive for: Alert and Oriented X 3 - Systems Exam Head: Present: Atraumatic, Normocephalic Pupils: Present: PERRL Extroacular Muscles: Present: EOMI Conjunctiva: Present: Normal Mouth: Present: Moist Mucous Membranes Neck: Present: Normal Range of Motion Respiratory/Chest: Present: Clear to Auscultation, Good Air Exchange. No: Respiratory Distress, Accessory Muscle Use Cardiovascular: Present: Normal S1, S2, Irregular Rhythm (Irregular, regular). No: Murmurs Abdomen: Present: Normal Bowel Sounds. No: Tenderness, Distention, Peritoneal Signs Back: Present: Normal Inspection Upper Extremity: Present: Normal Inspection. No: Cyanosis, Edema Lower Extremity: Present: Normal Inspection. No: Edema Neurological: Present: GCS=15, CN II-XII Intact, Speech Normal Skin: Present: Warm, Dry, Normal Color. No: Rashes Psychiatric: Present: Alert, Oriented x 3, Normal Insight, Normal Concentration Medical Decision Making ED Course and Treatment: 05/27/17 05:34 Impression: 81 year old female complaining of rapid heart, exertional dyspnea on exertion, and chest discomfort. Plan: -- EKG -- Chest X-ray -- Labs, cardiac enzymes, BNP -- Reassess and disposition Progress Notes: 05/27/17 06:06 Reviewed EKG, a fib at 90 bpm. RBBB. LAHB. Anteroseptal infarct. Non-specific ST /T wave changes. 05/27/17 06:29 Chest X-ray reviewed, shows no acute processes. Case discussed with Dr. Farris, who is aware and agrees with plan. Accepts pt in to his service. Pt will go to Telemetry observation for chest pain and paroxysmal rapid atrial fibrillation. - Lab Interpretations Lab Results: 05/27/17 05:44 Lab Results 05/27/17 05:44: WBC 6.2, RBC 3.01 L, Hgb 8.2 L, Hct 26.3 L, MCV 87.4, MCH 27.2, MCHC 31.2, RDW 18.9 H, Plt Count 263, MPV 9.4 I have reviewed the lab results: Yes - RAD Interpretation Radiology Orders: 05/27/17 05:34 CHEST PORTABLE [RAD] Stat Legal Aid: ED Physician - EKG Interpretation Interpreted by ED Physician: Yes Comparison: Com.w/previous EKG - Medication Orders Current Medication Orders: Discontinued Medications Apixaban (Eliquis) 2.5 mg PO BID [facility] PRN Reason: Protocol Last Admin: 05/28/17 09:53 Dose: 2.5 mg Aspirin (Aspirin Chewable) 81 mg PO DAILY [facility] Last Admin: 05/28/17 09:53 Dose: 81 mg Atorvastatin Calcium (Lipitor) 20 mg PO DAILY [facility] Last Admin: 05/28/17 09:53 Dose: 20 mg Diltiazem HCl (Cardizem Cd) 240 mg PO DAILY [facility] Last Admin: 05/28/17 09:53 Dose: 240 mg MAR Pulse and Blood Pressure Document 05/28/17 09:53 RDS (Rec: 05/28/17 09:53 RDS [id number]) Pulse Pulse Rate (60-90) 60 Blood Pressure Blood Pressure (100/60-150/90) 112/61 Donepezil HCl (Aricept) 10 mg PO HS [facility] Last Admin: 05/27/17 22:57 Dose: 10 mg Ferrous Gluconate (Fergon) 324 mg PO TID [facility] Last Admin: 05/28/17 09:54 Dose: 324 mg Furosemide (Lasix) 20 mg PO BID [facility] Last Admin: 05/28/17 09:53 Dose: 20 mg MAR Blood Pressure Document 05/28/17 09:53 RDS (Rec: 05/28/17 09:54 RDS [id number]) Blood Pressure Blood Pressure (100/60-150/90) 112/61 Furosemide (Lasix) 20 mg PO DAILY [facility] diltiaZEM IVPB 100mg in NS (Cardizem 100mg In Ns) 100 mls @ 5 mls/hr IV .Q20H PRN; Protocol; 5 MG/HR PRN Reason: TITRATE PER MD ORDER Last Admin: 05/27/17 09:28 Dose: 5 mg/hr, 5 mls/hr eMAR Start Stop Document 05/27/17 09:28 [facility] (Rec: 05/27/17 09:29 [facility] [id number]) Intravenous Solution Start Date 05/27/17 Start Time 09:28 MAR Pulse Rate Document 05/27/17 09:28 [facility] (Rec: 05/27/17 09:29 [facility] [id number]) Pulse Rate Pulse Rate (60-90) 135 Titration Intervention Document 05/27/17 09:28 [facility] (Rec: 05/27/17 09:29 [facility] [id number]) Titration Intake Waste Amount 0 Container Volume 100 Titration Dosing Titration Dose 5 IV Rate 5 Intake/Decrease Started Metoprolol Tartrate (Lopressor) 12.5 mg PO BID [facility] Last Admin: 05/27/17 10:09 Dose: 12.5 mg MAR Pulse and Blood Pressure Document 05/27/17 10:09 [facility] (Rec: 05/27/17 10:09 [facility] [id number]) Pulse Pulse Rate (60-90) 135 Blood Pressure Blood Pressure (100/60-150/90) 154/104 Metoprolol Tartrate (Lopressor) 25 mg PO BID [facility] Last Admin: 05/28/17 09:53 Dose: 25 mg MAR Pulse and Blood Pressure Document 05/28/17 09:53 [facility] (Rec: 05/28/17 09:53 [facility] [id number]) Pulse Pulse Rate (60-90) 60 Blood Pressure Blood Pressure (100/60-150/90) 112/61 Non-Formulary Medication (Esomeprazole Magnesium [Nexium]) 40 mg PO DAILY [facility] Pantoprazole Sodium (Protonix Ec Tab) 40 mg PO BID [facility] Last Admin: 05/28/17 09:53 Dose: 40 mg Pantoprazole Sodium (Protonix Ec Tab) 40 mg PO ACB ISAI Pantoprazole Sodium (Protonix Ec Tab) 40 mg PO .EXTRA DOSE ONE Stop: 05/27/17 09:01 Last Admin: 05/27/17 09:27 Dose: 40 mg Tramadol/Acetaminophen (Ultracet 37.5/325 Mg) 1 tab PO Q8H PRN PRN Reason: Pain, moderate (4-7) Last Admin: 05/28/17 01:46 Dose: 1 tab MAR Pain Assessment Document 05/28/17 01:46 [facility] (Rec: 05/28/17 01:46 [facility] [id number]) Pain Reassessment Is this a pain reassessment? No Sleep Is patient sleeping during reassessment? No Presence of Pain Presence of Pain Yes Vitamin B Complex/Vit C/Folic Acid (Nephro-Haider) 1 tab PO DAILY ISAI Last Admin: 05/28/17 09:53 Dose: 1 tab - Scribe Statement The provider has reviewed the documentation as recorded by the Luliibnoemi Mckee All medical record entries made by the Luliibnoemi were at my direction and personally dictated by me. I have reviewed the chart and agree that the record accurately reflects my personal performance of the history, physical exam, medical decision making, and the department course for this patient. I have also personally directed, reviewed, and agree with the discharge instructions and disposition. Disposition/Present on Arrival - Present on Arrival Any Indicators Present on Arrival: No History of DVT/PE: No History of Uncontrolled Diabetes: No Urinary Catheter: No History of Decub. Ulcer: No History Surgical Site Infection Following: None - Disposition Have Diagnosis and Disposition been Completed?: Yes Diagnosis: Chest pain, Paroxysmal atrial fibrillation with rapid ventricular response Disposition: HOSPITALIZED Disposition Time: 06:30 Condition: STABLE
[2017-05-27 05:55] LABS: HEMOGLOBIN 8.2 g/dL (12.0-16.0); MEAN CELL VOLUME 87.4 fl (80.0-105.0); MEAN CORPUSCULAR HEMOGLOBIN 27.2 pg (25.0-35.0); MEAN CORPUSCULAR HGB CONC 31.2 g/dl (31.0-37.0); MEAN PLATELET VOLUME 9.4 fl (7.0-11.0); RBC 3.01 10^6/uL (3.5-6.1); RED CELL DISTRIBUTION WIDTH 18.9 % (11.5-14.5); WHITE BLOOD COUNT 6.2 10^3/ul (4.5-11.0)
[2017-05-27 07:25] LABS: INR 1.31 (0.93-1.08); PARTIAL THROMBOPLASTIN TIME 29.3 Seconds (25.1-36.5); PROTHROMBIN TIME 15.2 SECONDS (9.4-12.5)
[2017-05-27 07:32] LABS: TROPONIN I 0.03 ng/mL
[2017-05-27 07:36] LABS: ALBUMIN 3.4 g/dL (3.0-4.8); CALCIUM 9.8 mg/dL (8.4-10.5)
--- NOTE | 2017-05-27 08:19 | RAD ---
HISTORY: sob COMPARISON: 05/13/2017 FINDINGS: LUNGS: No active pulmonary disease. PLEURA: No significant pleural effusion identified, no pneumothorax apparent. CARDIOVASCULAR: Mild cardiomegaly. Mild vascular congestion OSSEOUS STRUCTURES: No significant abnormalities. VISUALIZED UPPER ABDOMEN: Normal. OTHER FINDINGS: Single lead pacemaker IMPRESSION: Mild cardiomegaly and mild vascular congestion
[2017-05-27] MEDS ORDERED: Pantoprazole 40 mg EC Tab PO ONE (09:00)
[2017-05-27] MEDS ORDERED: diltiaZEM IVPB 100mg in NS 100 ML IV PRN (09:22)
[2017-05-27] MEDS: Multivitamin Vitamin B Complex (Nephro-Vite) Tab PO SCH (10:06)
[2017-05-27] MEDS: diltiaZEM 240 mg/24 Hours CD Cap PO SCH (10:06)
[2017-05-27] MEDS: Pantoprazole 40 mg EC Tab PO SCH ×2 (10:09→17:04)
--- NOTE | 2017-05-27 10:33 | CARD ---
APPROVED REPORT EKG Measurement Heart [id number] <Conclusion> Atrial fibrillation Right bundle branch block Left anterior fascicular block Bifascicular block Voltage criteria for left ventricular hypertrophy Anteroseptal infarct, age undetermined T wave abnormality, consider lateral ischemia or digitalis effect Abnormal ECG
[2017-05-27 15:28] VITALS: BMI 23.3
[2017-05-27] MEDS: TraMADol/Apap 37.5/325 mg Tab PO PRN (17:02)
[2017-05-27 18:00] VITALS: RESP 18
--- NOTE | 2017-05-27 18:08 | CARD ---
APPROVED REPORT EKG Measurement Heart [id number] <Conclusion> Wide QRS tachycardia Right bundle branch block Left anterior fascicular block Bifascicular block Left ventricular hypertrophy with repolarization abnormality Cannot rule out Septal infarct, age undetermined Abnormal ECG
--- NOTE | 2017-05-28 00:36 | CON ---
DATE: 05/27/2017 CARDIOLOGY CONSULTATION HISTORY OF PRESENT ILLNESS: The patient is an 81-year-old woman with one of multiple admissions, this one for accelerated heart rate to the 130s as well as diffuse body aches. 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 Cardizem, and low-dose beta-blockers. It is unclear about the patient's compliance with medications. In addition, the patient had a pacemaker for continued slow heart rate in addition to having symptomatic bradycardia. SOCIAL HISTORY: The patient does not smoke. REVIEW OF SYSTEMS: Reviewed. The patient is complaining of diffuse body aches without angina. PHYSICAL EXAMINATION: VITAL SIGNS: Blood pressure is 128/73, heart rate is 100. NECK: Negative JVD. LUNGS: Without rales. HEART: With S1, S2. EXTREMITIES: Without edema. EKG shows atrial flutter with a paced rhythm. LABORATORY DATA: Hemoglobin is 8.2. Chemistries: BUN and creatinine is 41 and 1.7. Troponin is 0.03. IMPRESSION: 1. Tachybrady syndrome. 2. Status post pacemaker placement. 3. Cholesterol noncompliance with medications. 4. Renal insufficiency. 5. Anemia. 6. Hypercholesterolemia. 7. Hypertension. PLAN: Given these findings, we will add beta-blockers 25 b.i.d. We will continue her on her Cardizem. Oswald Fonseca MD
[2017-05-28] MEDS: TraMADol/Apap 37.5/325 mg Tab PO PRN (01:46)
[2017-05-28 07:00] VITALS: O2SAT 70
[2017-05-28] MEDS ORDERED: Pantoprazole 40 mg EC Tab PO SCH (07:30)
[2017-05-28 07:52] LABS: HEMOGLOBIN 9.5 g/dL (12.0-16.0); MEAN CELL VOLUME 86.7 fl (80.0-105.0); MEAN CORPUSCULAR HEMOGLOBIN 27.5 pg (25.0-35.0); MEAN CORPUSCULAR HGB CONC 31.8 g/dl (31.0-37.0); MEAN PLATELET VOLUME 9.1 fl (7.0-11.0); RBC 3.45 10^6/uL (3.5-6.1); RED CELL DISTRIBUTION WIDTH 17.9 % (11.5-14.5); WHITE BLOOD COUNT 7.6 10^3/ul (4.5-11.0)
[2017-05-28 08:19] LABS: ALBUMIN 3.2 g/dL (3.0-4.8); CALCIUM 9.6 mg/dL (8.4-10.5)
--- NOTE | 2017-05-28 08:23 | HP ---
HISTORY OF PRESENT ILLNESS: I saw Sarah yesterday on a house-call. Her blood pressure was good, but heart rate was up in the 130s. I to what she has taken with her for about 20 minutes and dropped down to the 80s, so we kept her home. She woke up this morning, it again happened, so she called 911 and came to the emergency room. She is an 81-year-old -[place] female who I know very well has atrial fibrillation with rapid rate, COPD, CHF, pacemaker, dementia, renal insufficiency, anxiety. She had a rapid heart rate when she first got to the emergency room, it is now down to 90. She was given Cardizem en route for the rapid AFib. She was on 180 mg of Cardizem, I increased it to 240. I called in Cardiology. She is presently comfortable in bed. PAST MEDICAL HISTORY: She has a history of AFib, CHF. She used to smoke, but she quit. She had dizziness and syncope. She has dementia. She wears glasses. renal insufficiency. She has gastroesophageal reflux. She has arthritis, anxiety, dementia. SOCIAL HISTORY: She is a former smoker. No drugs or alcohol. FAMILY HISTORY: No hypertension in the family. ALLERGIES: NO KNOWN DRUG ALLERGIES. MEDICATIONS: She is on Cardizem, Eliquis, Nexium, Byetta, metoprolol. I do not think she got the metoprolol yet, but we will start it here and we will increase the Cardizem. Baby aspirin, iron. REVIEW OF SYSTEMS: At this time, she is comfortable. When she came in, she had shortness of breath and felt chest pain with palpitations. No acute vision or hearing changes. No sore throat. There is a little bit of shortness of breath. No abdominal pain, nausea, vomiting, constipation, diarrhea. No problems urinating. No back pain or leg pain. Skin: No rashes or ulcers appreciated. No headaches or dizziness. Not anxious. Not depressed. PHYSICAL EXAMINATION: VITAL SIGNS: She has a 98.5 temp; 96 pulse, yesterday it was 130 and then it came down to 88 after she took her Cardizem; respiratory rate is 18; 154/64 blood pressure; 98% O2 sat. GENERAL: She is well appearing, nontoxic, comfortable at this time. Alert and oriented x3. HEENT: Head is atraumatic, normocephalic. Extraocular muscles are intact. Pupils equal, reactive to light. Throat is moist. NECK: Supple. HEART: Irregular rate. LUNGS: Decreased breath sounds. Clear to auscultation. ABDOMEN: Soft, nontender. Positive bowel sounds. EXTREMITIES: Have no edema. NEUROLOGIC: GCS is 15. Cranial nerves II through XII grossly intact. She is thin, frail and occasionally confused. SKIN: Warm and dry. No apparent rashes or ulcers. PSYCHIATRIC: Alert and oriented x3. LYMPHATICS: Thyroid midline. No palpable appreciable lymphadenopathy. LABORATORY DATA: She had multiple tests. EKG showed AFib. She has a 149 sodium, potassium 4.3, BUN 41, creatinine 1.7, GFR is 29, calcium is 9.8, AST is 37, ALT is 48, alkaline phosphatase 76, lactate dehydrogenase is 583, total creatine kinase is 45. Troponin I of 0.03. BNP is 3370. Total protein 6.9. INR is 1.31 with 6.2 white count, 8.2 hemoglobin, 26.3 hematocrit with 263 platelets. I am going to give her a transfusion today. Chest x-ray showed mild cardiomegaly and mild vascular congestion. I will make sure the IV rate that I have her on is not too strong and she is on Lasix. There is no IV fluid that is good, oxygen and we will transfuse her 1 unit of packed red blood cells. She is in observation status and I will continue to keep her overnight and get her out tomorrow if the pulse stays stable. I will discuss this with Dr. Fonseca, the experimental mechanic outboard motors. Marco Farris DO [facility]
[2017-05-28] MEDS: diltiaZEM 240 mg/24 Hours CD Cap PO SCH (09:53)
[2017-05-28] MEDS: Pantoprazole 40 mg EC Tab PO SCH (09:53)
[2017-05-28] MEDS: Multivitamin Vitamin B Complex (Nephro-Vite) Tab PO SCH (09:53)
--- NOTE | 2017-05-28 12:24 | PN ---
DATE: 05/28/2017 CARDIOLOGY FOLLOWUP SUBJECTIVE: The patient's heart rate is much better controlled. PHYSICAL EXAMINATION: VITAL SIGNS: Blood pressure is 112/61, the heart rate is paced in the 60s. NECK: Negative JVD. LUNGS: Without rales. HEART: Reveals S1, S2. EXTREMITIES: Without edema. LABORATORY DATA: Hemoglobin is 9.5. Chemistries: BUN and creatinine are unchanged. IMPRESSION: 1. Atrial fibrillator/flutter with increased heart rate, which is now well controlled. 2. History of pacemaker placement. 3. Anemia. 4. Renal insufficiency. 5. Good left ventricular function with pulmonary hypertension. 6. Hypertension. 7. Hypercholesterolemia. PLAN: Given these findings, we will discharge the patient today on higher doses of Cardizem to 240 daily as well as Lopressor 25 b.i.d. The patient can be discharged from a cardiac perspective. Oswald Fonseca MD
[2017-05-28 13:04] VITALS: BP 111/61; PULSE 59; TEMP 98
--- NOTE | 2017-05-29 05:30 | DS ---
HISTORY OF PRESENT ILLNESS: She is resting comfortably in bed. No chest pain. No shortness of breath. No abdominal pain. She is back to her old self. She is walking. She is eating. I am hoping to discharge her today. PHYSICAL EXAMINATION: VITAL SIGNS: She has a 97.8 temperature, pulse of . She has been stable for a longtime now. She has a 138/78 blood pressure, 18 respiratory rate and 100% O2 sat on nasal cannula. HEENT: Head is atraumatic, normocephalic. HEART: Irregular rate, but in the 60s and 70s. LUNGS: Clear to auscultation. ABDOMEN: Soft. EXTREMITIES: No edema. MEDICATIONS: She is on Aricept, aspirin. I increased her Cardizem to 240 mg today from 180. I am going to stop the diltiazem IV. She will be on Eliquis, iron, Lasix, Lipitor, Lopressor, Nephro-Haider, Protonix and Ultracet as needed for pain. PLAN: I am hoping to discharge her after Dr. Fonseca sees her today. She is on rapid AFib, anemia, tachy syndrome, permanent pacemaker, renal insufficiency, hypertension, high cholesterol. She was in observation. I am hoping to discharge her today after Dr. Fonseca sees her. Marco Farris DO [facility]
== END 2017-05-28 15:42 | disposition home health service (06) ==
LOC: ED 05:15 → ERH 06:31 → 3RSO 10:51
PROVIDERS: ADMIT Family Medicine; ATTEND Family Medicine
DX: I48.0 Paroxysmal atrial fibrillation (principal); I48.92 Unspecified atrial flutter; D64.9 Anemia, unspecified; E78.00 Pure hypercholesterolemia, unspecified; F03.90 Unspecified dementia, unspecified severity, without behavioral disturbance, psychotic disturbance, mood disturbance, and anxiety; F41.9 Anxiety disorder, unspecified; I11.0 Hypertensive heart disease with heart failure; I27.20 Pulmonary hypertension, unspecified; I49.5 Sick sinus syndrome; I50.9 Heart failure, unspecified; J44.9 Chronic obstructive pulmonary disease, unspecified; K21.9 Gastro-esophageal reflux disease without esophagitis; N28.9 Disorder of kidney and ureter, unspecified; Z87.891 Personal history of nicotine dependence; Z91.14 Patient's other noncompliance with medication regimen; Z95.0 Presence of cardiac pacemaker; R40.2413 Glasgow coma scale score 13-15, at hospital admission
CPT/HCPCS: 36415; 36430; 71045; 80053; 82550; 83615; 83880; 84484; 85027; 85610; 85730; 86850; 86900; 86920; 93005; 97116; 97161; 99285; G0378; G8978; G8979; G8980; P9016

== ENCOUNTER 2017-06-21 14:59 | Inpatient (IN) | payer MEDICARE ==
[2017-06-21 14:59] VITALS: PULSE 45
[2017-06-21 15:46] VITALS: BMI 19.3
[2017-06-21] MEDS ORDERED: Sodium Chloride 0.9% 500 ML IV STA (16:04)
--- NOTE | 2017-06-21 16:22 | ED PDOC ---
Arrival/HPI - General Chief Complaint: GI Problem Time Seen by Provider: 06/21/17 15:12 - History of Present Illness Narrative History of Present Illness (Text): 06/21/17 16:20 81 yo female, hx of afib on eliqus, htn, present swith left sideda bdomianl pain and n/v/d. pt states "she has had pain "for a while". pt poor historian. no fevers, no cp sob cough or other complaints. Past Medical History - Infectious Disease Hx of Infectious Diseases: None - Tetanus Immunization Tetanus Immunization: >10 years Ago - Cardiac Hx Cardiac Disorders: Yes Hx Atrial Fibrillation: Yes Hx Congestive Heart Failure: Yes Hx Hypertension: Yes - Pulmonary Hx Respiratory Disorders: Yes (USED TO SMOKE 6 CIG A DAY) - Neurological Hx Neurological Disorder: Yes Hx Dementia: Yes Hx Dizziness: Yes (SYNCOPE) - HEENT Hx HEENT Disorder: Yes (glasses) - Renal Hx Renal Disorder: Yes - Endocrine/Metabolic Hx Endocrine Disorders: No - Hematological/Oncological Hx Cancer: No - Integumentary Hx Dermatological Disorder: No - Musculoskeletal/Rheumatological Hx Arthritis: Yes - Gastrointestinal Hx Gastrointestinal Disorders: Yes Hx Gastroesophageal Reflux: Yes - Genitourinary/Gynecological Hx Reproductive Disorders: No - Psychiatric Hx Psychophysiologic Disorder: Yes Hx Anxiety: Yes Hx Substance Use: No - Surgical History Hx Mastectomy: No - Anesthesia Hx Anesthesia: Yes Hx Anesthesia Reactions: No Hx Malignant Hyperthermia: No Family/Social History - Physician Review Nursing Documentation Reviewed: Yes Family/Social History: Unknown Family HX Smoking Status: Former Smoker Hx Alcohol Use: No Hx Substance Use: No Allergies/Home Meds Allergies/Adverse Reactions: Allergies No Known Allergies Allergy (Verified 05/27/17 05:34) Review of Systems - Review of Systems Constitutional: Normal Eyes: Normal ENT: Normal Respiratory: Normal Cardiovascular: Normal Gastrointestinal: Abdominal Pain. absent: Diarrhea, Nausea, Vomiting Genitourinary Female: Normal Musculoskeletal: Normal Skin: Normal Neurological: Normal Endocrine: Normal Hemo/Lymphatic: Normal Psychiatric: Normal Physical Exam Vital Signs Temp Pulse Resp BP Pulse Ox 06/21/17 20:16 84 18 111/56 L 95 06/21/17 15:47 98.3 F 77 18 147/44 L 97 Temperature: Afebrile Blood Pressure: Normal Pulse: Regular Respiratory Rate: Normal Appearance: Positive for: Well-Appearing, Non-Toxic, Comfortable Pain Distress: None Mental Status: Positive for: Alert and Oriented X 3 - Systems Exam Head: Present: Atraumatic, Normocephalic Pupils: Present: PERRL Extroacular Muscles: Present: EOMI Conjunctiva: Present: Normal Mouth: Present: Moist Mucous Membranes Neck: Present: Normal Range of Motion Respiratory/Chest: Present: Clear to Auscultation, Good Air Exchange. No: Respiratory Distress, Accessory Muscle Use Cardiovascular: Present: Regular Rate and Rhythm, Normal S1, S2. No: Murmurs Abdomen: Present: Tenderness (minimal left sided). No: Distention, Peritoneal Signs, Rebound, Guarding Back: Present: Normal Inspection Upper Extremity: Present: Normal Inspection. No: Cyanosis, Edema Lower Extremity: Present: Normal Inspection. No: Edema Neurological: Present: GCS=15, CN II-XII Intact, Speech Normal Skin: Present: Warm, Dry, Normal Color. No: Rashes Psychiatric: Present: Alert, Oriented x 3, Normal Insight, Normal Concentration Medical Decision Making - Lab Interpretations Lab Results: 06/21/17 17:23 06/21/17 17:23 Lab Results 06/21/17 17:23: Sodium 139, Potassium 5.3 H, Chloride 103, Carbon Dioxide 22, Anion Gap 19, BUN 60 H, Creatinine 2.5 H, Est GFR ( Amer) 22, Est GFR ( Non-Af Amer) 18, Random Glucose 116 H, Calcium 10.1, Total Bilirubin 0.4, AST 48 H D, ALT 33, Alkaline Phosphatase 106, Lactate Dehydrogenase 628, Total Creatine Kinase 47, Troponin I < 0.01 D, Total Protein 9.0 H, Albumin 4.6, Globulin 4.4, Albumin/Globulin Ratio 1.0 L, Amylase 378 H, Lipase 561 H 06/21/17 17:23: PT 16.7 H, INR 1.45 H, APTT 28.5 06/21/17 17:23: WBC 14.5 H D, RBC 4.41, Hgb 12.6 D, Hct 39.0, MCV 88.4, MCH 28.6, MCHC 32.3, RDW 16.6 H, Plt Count 285, MPV 9.3, Gran % 91.6 H, Lymph % ( Auto) 4.8 L, Castro % (Auto) 3.5, Eos % (Auto) 0.0 L, Baso % (Auto) 0.1, Gran # 13.24 H, Lymph # (Auto) 0.7 L, Castro # (Auto) 0.5, Eos # (Auto) 0.0, Baso # (Auto ) 0.01, Neutrophils % (Manual) 91 H, Band Neutrophils % 1, Lymphocytes % (Manual ) 3 L, Monocytes % (Manual) 5, Platelet Evaluation Normal - RAD Interpretation Radiology Orders: 06/21/17 16:00 CHEST PORTABLE [RAD] Stat 06/21/17 16:07 ABD & PELVIS W/O PO OR IV CONT [CT] Stat - Medication Orders Current Medication Orders: Alprazolam (Xanax) 0.5 mg PO BID PRN; Protocol PRN Reason: Anxiety Last Admin: 06/21/17 22:40 Dose: 0.5 mg Behavioural Document 06/21/17 22:40 KP (Rec: 06/21/17 22:40 [place] [facility] [id number] Maintenance Maintenance Dose No Nonmedicinal Nonmedicinal Interventions Redirect Therapeutic Communication Behavior Behavior for Medication: Anxiety Re-Assess: Reassess Psych Meds Document 06/21/17 23:40 KP (Rec: 06/21/17 23:50 KP [id number]) Reassess Psych Med Effective Apixaban (Eliquis) 2.5 mg PO BID ISAI PRN Reason: Protocol Aspirin (Aspirin Chewable) 81 mg PO DAILY [facility] Atorvastatin Calcium (Lipitor) 20 mg PO DAILY [facility] Diltiazem HCl (Cardizem Cd) 180 mg PO DAILY [facility] Donepezil HCl (Aricept) 10 mg PO HS ISAI Last Admin: 06/21/17 22:34 Dose: 10 mg Ferrous Gluconate (Fergon) 324 mg PO TID [facility]AI Furosemide (Lasix) 20 mg PO DAILY [facility] Sodium Chloride (Sodium Chloride 0.45%) 1,000 mls @ 40 mls/hr IV .Q24H ISAI Last Admin: 06/21/17 21:00 Dose: 40 mls/hr eMAR Start Stop Document 06/21/17 21:00 KP (Rec: 06/22/17 05:[address] [facility] [id number]) Intravenous Solution Start Date 06/21/17 Start Time 21:00 Cefazolin Sodium (Ancef 1gm In Ns) 1 gm in 100 mls @ 100 mls/hr IVPB Q8 ISAI PRN Reason: Protocol Last Admin: 06/22/17 05:03 Dose: 100 mls/hr eMAR Start Stop Document 06/22/17 05:03 KP (Rec: 06/22/17 05:[address] [facility] [id number]) Intravenous Solution Start Date 06/22/17 Start Time 05:03 Insulin Human Regular (Humulin R Med) 0 units SC ACHS ISAI PRN Reason: Protocol Last Admin: 06/22/17 08:19 Dose: Not Given Non-Admin Reason: Blood Sugar Parameter MAR Blood Glucose Document 06/22/17 08:19 SES (Rec: 06/22/17 08:[address] [facility] [id number]) Blood Glucose Finger Stick Blood Glucose (70-120) 106 Metoprolol Tartrate (Lopressor) 25 mg PO BID ISAI Ondansetron HCl (Zofran Inj) 4 mg IVP Q4H PRN PRN Reason: Nausea/Vomiting Pantoprazole Sodium (Protonix Inj) 40 mg IVP DAILY [facility] Tramadol HCl (Ultram) 50 mg PO TID PRN PRN Reason: Pain, moderate (4-7) Last Admin: 06/22/17 08:19 Dose: 50 mg MAR Pain Assessment Document 06/22/17 08:19 SES (Rec: 06/22/17 08:[address] [facility] [id number]) Pain Reassessment Is this a pain reassessment? No Sleep Is patient sleeping during reassessment? No Presence of Pain Presence of Pain Yes Pain Scale Used Pain Scale Used Numeric Location Left, Right or Bilateral Left Pain Location Body Site Groin Leg Description Intensity of Pain at present 9 Pain Behavior Guarding Alleviating Factors/Management Medication Techniques Alleviating Factors Medication Discontinued Medications Sodium Chloride (Sodium Chloride 0.9%) 500 mls @ 999 mls/hr IV .Q31M STA Stop: 06/21/17 16:34 Last Admin: 06/21/17 17:28 Dose: 999 mls/hr eMAR Start Stop Document 06/21/17 17:28 HI (Rec: 06/21/17 17:28 HI [id number]) Intravenous Solution Start Date 06/21/17 Start Time 17:28 Ketorolac Tromethamine (Toradol) 30 mg IVP STAT STA Stop: 06/22/17 01:09 Last Admin: 06/22/17 01:39 Dose: 30 mg MAR Pain Assessment Document 06/22/17 01:39 KP (Rec: 06/22/17 01:40 [facility] [id number]) Pain Reassessment Is this a pain reassessment? No Sleep Is patient sleeping during reassessment? No Presence of Pain Presence of Pain Yes Location Left, Right or Bilateral Left Upper or Lower Upper Pain Location Body Site Leg IVP Administration Document 06/22/17 01:39 (Rec: 06/22/17 01:40 [facility] [id number]) Charges for Administration # of IVP Administrations 1 Re-Assess: VIRGIL Pain Assessment Document 06/22/17 02:39 KP (Rec: 06/22/17 02:58 KP [id number]) Pain Reassessment Is this a pain reassessment? Yes Sleep Is patient sleeping during reassessment? Yes Ondansetron HCl (Zofran Inj) 4 mg IVP STAT STA Stop: 06/21/17 16:04 Last Admin: 06/21/17 18:02 Dose: 4 mg IVP Administration Document 06/21/17 18:02 SC (Rec: 06/21/17 [id number] Charges for Administration # of IVP Administrations 1 Sodium Polystyrene Sulfonate (Kayexalate Susp) 30 gm PO ONCE ONE Stop: 06/22/17 07:56 Last Admin: 06/22/17 08:19 Dose: 30 gm Disposition/Present on Arrival - Present on Arrival Any Indicators Present on Arrival: No History of DVT/PE: No History of Uncontrolled Diabetes: No Urinary Catheter: No History of Decub. Ulcer: No History Surgical Site Infection Following: None - Disposition Have Diagnosis and Disposition been Completed?: Yes Diagnosis: Pancreatitis, Abdominal pain, Leukocytosis Disposition: HOSPITALIZED Disposition Time: 07:00 Condition: FAIR
[2017-06-21 17:45] LABS: BASO # 0.01 K/mm3 (0.0-2.0); BASO % 0.1 % (0.0-3.0); GRAN # 13.24 (1.4-6.5); GRAN % 91.6 % (50.0-68.0); HEMOGLOBIN 12.6 g/dL (12.0-16.0); LYMPH # 0.7 (1.2-3.4); LYMPH % 4.8 % (22.0-35.0); MEAN CELL VOLUME 88.4 fl (80.0-105.0); MEAN CORPUSCULAR HEMOGLOBIN 28.6 pg (25.0-35.0); MEAN CORPUSCULAR HGB CONC 32.3 g/dl (31.0-37.0); MEAN PLATELET VOLUME 9.3 fl (7.0-11.0); MONO # 0.5 (0.1-0.6); MONO % 3.5 % (1.0-6.0); PLATELET COUNT 285 10^3/uL (120.0-450.0); RBC 4.41 10^6/uL (3.5-6.1); RED CELL DISTRIBUTION WIDTH 16.6 % (11.5-14.5); WHITE BLOOD COUNT 14.5 10^3/ul (4.5-11.0)
[2017-06-21 17:55] LABS: INR 1.45 (0.93-1.08); PARTIAL THROMBOPLASTIN TIME 28.5 Seconds (25.1-36.5); PROTHROMBIN TIME 16.7 SECONDS (9.4-12.5)
[2017-06-21 17:56] LABS: TROPONIN I < 0.01 ng/mL
[2017-06-21 18:07] LABS: ALBUMIN 4.6 g/dL (3.0-4.8); ALT/SGPT 33 U/L (7-56); AMYLASE 378 U/L (35-125); AST/SGOT 48 U/L (14-36); BLOOD UREA NITROGEN 60 mg/dL (7-21); CALCIUM 10.1 mg/dL (8.4-10.5); GFR AFRICAN-AMERICAN 22; GFR NON-AFRICAN AMERICAN 18; LIPASE 561 U/L (23-300)
[2017-06-21] MEDS ORDERED: Sodium Chloride 0.9% 1,000 ML IV SCH (18:15)
[2017-06-21] MEDS ORDERED: Sodium Chloride 0.45% 1,000 ML IV SCH (18:15)
--- NOTE | 2017-06-21 18:33 | CT ---
PROCEDURE: CT Abdomen and Pelvis without intravenous contrast HISTORY: Left-sided pain. Relevant surgical history: Hysterectomy. Right nephrectomy for renal cell carcinoma COMPARISON: 05/14/2017 CT thorax abdomen and pelvis. TECHNIQUE: Unenhanced study. Neither oral nor intravenous contrast administered. Radiation dose: Total exam DLP = 244.59 mGy-cm. This CT exam was performed using one or more of the following dose reduction techniques: Automated exposure control, adjustment of the mA and/or kV according to patient size, and/or use of iterative reconstruction technique. FINDINGS: LOWER THORAX: Unremarkable. LIVER: Unremarkable. No gross lesion or ductal dilatation. GALLBLADDER AND BILE DUCTS: Cholelithiasis without CT evidence of acute cholecystitis. PANCREAS: Unremarkable. No gross lesion or ductal dilatation. SPLEEN: Unremarkable. ADRENALS: Unremarkable. No mass. KIDNEYS AND URETERS: Status post right nephrectomy. No abnormalities right renal fossa. Unremarkable left kidney with the exception of 2 small hypodensities unchanged compared to the prior study. VASCULATURE: Calcified nonaneurysmal abdominal aorta. BOWEL: Diverticulosis without an acute inflammatory component or other associated pathologic process. APPENDIX: Unremarkable. Normal appendix. PERITONEUM: Unremarkable. No free fluid. No free air. LYMPH NODES: Unremarkable. No enlarged lymph nodes. BLADDER: Unremarkable. REPRODUCTIVE: Unremarkable. BONES: No acute fracture. OTHER FINDINGS: None. IMPRESSION: No acute findings related to/accounting for the clinical presentation. Additional benign and/or incidental findings described above.
[2017-06-21 19:49] LABS: BAND 1 % (0-2); LYMPHOCYTE 3 % (22.0-35.0); MONOCYTE 5 % (1.0-6.0); NEUTROPHIL 91 % (50.0-70.0)
[2017-06-21 19:50] LABS: PLATELET ESTIMATE NORMAL (NORMAL)
--- NOTE | 2017-06-21 19:56 | CARD ---
APPROVED REPORT EKG Measurement Heart [id number] <Conclusion> Electronic ventricular pacemaker
[2017-06-21] MEDS: Insulin Reg-MEDIUM-Coverage SC SCH (22:13)
[2017-06-21] MEDS: ceFAZolin 1 gm in NS 1 GM/100 ML BAG IVPB SCH (22:34)
--- NOTE | 2017-06-22 01:51 | CP.PCM.PN ---
Subjective - Date & Time of Evaluation Date of Evaluation: 06/22/17 Time of Evaluation: 01:43 - Subjective Subjective: Nurse calls and requests for pain medication for abdominal pain. Patient was seen at bedside. She denies to have abdominal pain now. States that she has left hip , left thigh pain. Denies recent trauma. Admits to have history of arthritis. Has no other complaints now. Medical record was reviewe. This 81 year old woman was admitted with left sided abdominal pain, nausea, vomiting , diarrhoea. She has PMH of CHF, HTN, atrial fibrillation, former smoker, anxiety, dementia, syncope. Objective - Vital Signs/Intake and Output Vital Signs (last 24 hours): Temp Pulse Resp BP Pulse Ox 98.3 F 84 18 111/56 L 95 06/21/17 15:47 06/21/17 20:16 06/21/17 20:16 06/21/17 20:16 06/21/17 20:16 - Medications Medications: Current Medications Alprazolam (Xanax) 0.5 mg PO BID PRN; Protocol PRN Reason: Anxiety Last Admin: 06/21/17 22:40 Dose: 0.5 mg Apixaban (Eliquis) 2.5 mg PO BID [facility]AI PRN Reason: Protocol Aspirin (Aspirin Chewable) 81 mg PO DAILY [facility] Atorvastatin Calcium (Lipitor) 20 mg PO DAILY [facility] Diltiazem HCl (Cardizem Cd) 180 mg PO DAILY [facility] Donepezil HCl (Aricept) 10 mg PO HS [facility] Last Admin: 06/21/17 22:34 Dose: 10 mg Ferrous Gluconate (Fergon) 324 mg PO TID [facility] Furosemide (Lasix) 20 mg PO DAILY [facility] Sodium Chloride (Sodium Chloride 0.45%) 1,000 mls @ 40 mls/hr IV .Q24H [facility] Cefazolin Sodium (Ancef 1gm In Ns) 1 gm in 100 mls @ 100 mls/hr IVPB Q8 ISAI PRN Reason: Protocol Last Admin: 06/21/17 22:34 Dose: 100 mls/hr Insulin Human Regular (Humulin R Med) 0 units SC ACHS ISAI PRN Reason: Protocol Last Admin: 06/21/17 22:13 Dose: Not Given Metoprolol Tartrate (Lopressor) 25 mg PO BID [facility] Ondansetron HCl (Zofran Inj) 4 mg IVP Q4H PRN PRN Reason: Nausea/Vomiting Pantoprazole Sodium (Protonix Inj) 40 mg IVP DAILY [facility] - Labs Labs: PT 16.7 SECONDS (9.4-12.5) H 06/21/17 17:23 INR 1.45 (0.93-1.08) H 06/21/17 17:23 APTT 28.5 Seconds (25.1-36.5) 06/21/17 17:23 Most Recent Lab Values WBC 14.5 10^3/ul (4.5-11.0) H D 06/21/17 17:23 RBC 4.41 10^6/uL (3.5-6.1) 06/21/17 17:23 Hgb 12.6 g/dL (12.0-16.0) D 06/21/17 17:23 Hct 39.0 % (36.0-48.0) 06/21/17 17:23 MCV 88.4 fl (80.0-105.0) 06/21/17 17:23 MCH 28.6 pg (25.0-35.0) 06/21/17 17:23 MCHC 32.3 g/dl (31.0-37.0) 06/21/17 17:23 RDW 16.6 % (11.5-14.5) H 06/21/17 17:23 Plt Count 285 10^3/uL (120.0-450.0) 06/21/17 17:23 MPV 9.3 fl (7.0-11.0) 06/21/17 17:23 Gran % 91.6 % (50.0-68.0) H 06/21/17 17:23 Lymph % (Auto) 4.8 % (22.0-35.0) L 06/21/17 17:23 Ector % (Auto) 3.5 % (1.0-6.0) 06/21/17 17:23 Eos % (Auto) 0.0 % (1.5-5.0) L 06/21/17 17:23 Baso % (Auto) 0.1 % (0.0-3.0) 06/21/17 17:23 Gran # 13.24 (1.4-6.5) H 06/21/17 17:23 Lymph # (Auto) 0.7 (1.2-3.4) L 06/21/17 17:23 Ector # (Auto) 0.5 (0.1-0.6) 06/21/17 17:23 Eos # (Auto) 0.0 (0.0-0.7) 06/21/17 17:23 Baso # (Auto) 0.01 K/mm3 (0.0-2.0) 06/21/17 17:23 Neutrophils % (Manual) 91 % (50.0-70.0) H 06/21/17 17:23 Band Neutrophils % 1 % (0-2) 06/21/17 17:23 Lymphocytes % (Manual) 3 % (22.0-35.0) L 06/21/17 17:23 Monocytes % (Manual) 5 % (1.0-6.0) 06/21/17 17:23 Platelet Evaluation Normal (NORMAL) 06/21/17 17: PT 16.7 SECONDS (9.4-12.5) H 06/21/17 17:23 INR 1.45 (0.93-1.08) H 06/21/17 17:23 APTT 28.5 Seconds (25.1-36.5) 06/21/17 17:23 Sodium 139 mmol/L (132-148) 06/21/17 17:23 Potassium 5.3 mmol/L (3.6-5.0) H 06/21/17 17:23 Chloride 103 mmol/L (98-107) 06/21/17 17:23 Carbon Dioxide 22 mmol/L (21-33) 06/21/17 17:23 Anion Gap 19 (10-20) 06/21/17 17:23 BUN 60 mg/dL (7-21) H 06/21/17 17:23 Creatinine 2.5 mg/dl (0.7-1.2) H 06/21/17 17:23 Est GFR ( Amer) 06/21/17 17:23 Est GFR (Non-Af Amer) 18 06/21/17 17:23 POC Glucose (mg/dL) 103 mg/dL (65-110) 06/21/17 21:24 Random Glucose 116 mg/dL (70-110) H 06/21/17 17:23 Calcium 10.1 mg/dL (8.4-10.5) 06/21/17 17:23 Total Bilirubin 0.4 mg/dL (0.2-1.3) 06/21/17 17:23 AST 48 U/L (14-36) H D 06/21/17 17:23 ALT 33 U/L (7-56) 06/21/17 17:23 Alkaline Phosphatase 106 U/L (38-126) 06/21/17 17:23 Lactate Dehydrogenase 628 U/L (333-699) 06/21/17 17:23 Total Creatine Kinase 47 U/L (35-230) 06/21/17 17:23 Troponin I < 0.01 ng/mL D 06/21/17 17:23 Total Protein 9.0 g/dL (5.8-8.3) H 06/21/17 17:23 Albumin 4.6 g/dL (3.0-4.8) 06/21/17 17:23 Globulin 4.4 gm/dL 06/21/17 17:23 Albumin/Globulin Ratio 1.0 (1.1-1.8) L 06/21/17 17:23 Amylase 378 U/L (35-125) H 06/21/17 17:23 Lipase 561 U/L (23-300) H 06/21/17 17:23 - Constitutional Appears: Well, No Acute Distress - Head Exam Head Exam: ATRAUMATIC, NORMAL INSPECTION, NORMOCEPHALIC - Eye Exam Eye Exam: Normal appearance - ENT Exam ENT Exam: Normal External Ear Exam - Neck Exam Neck Exam: Normal Inspection - Respiratory Exam Respiratory Exam: NORMAL BREATHING PATTERN - Cardiovascular Exam Cardiovascular Exam: absent: JVD - GI/Abdominal Exam GI & Abdominal Exam: absent: Distended - Rectal Exam Rectal Exam: Deferred - Exam Additional comments: Deferred. - Extremities Exam Extremities Exam: Normal Inspection Additional comments: Left hip, thigh non tender. - Back Exam Back Exam: NORMAL INSPECTION - Neurological Exam Neurological Exam: Alert, Awake, Oriented x3 - Psychiatric Exam Psychiatric exam: Normal Affect, Normal Mood - Skin Skin Exam: Normal Color Assessment and Plan - Assessment and Plan (Free Text) Assessment: Left hip pain. Lefth thigh pain. Arthritis. Abdominal pain. HTN. Atrial fibrillation. Anxiety. Dementia. Former smoker. Plan: Toradol 30 mg IV x 1. Present management as per PMD.
[2017-06-22] MEDS: ceFAZolin 1 gm in NS 1 GM/100 ML BAG IVPB SCH (05:03)
--- NOTE | 2017-06-22 06:10 | HP ---
HISTORY OF PRESENT ILLNESS: I saw Sarah in the emergency room, I was called down by the ER for abdominal pain, nausea, vomiting and diarrhea. She is an 81-year-old female who has a history of AFib, on Eliquis; hypertension, with small left-sided abdominal pain. She has pain for a while on and off. No fevers. History of AFib, CHF, hypertension, dementia. She used to smoke cigarettes, she quit. Syncope. She wears glasses; I do house calls on her; osteoarthritis, GERD, anxiety; history of falls, none now. FAMILY HISTORY: Unknown family history. SOCIAL HISTORY: Former smoker. No alcohol. No drugs. ALLERGIES: NO KNOWN DRUG ALLERGIES. REVIEW OF SYSTEMS: She is in bed in the gurney in the ER. Nauseous with a bucket, with abdominal pain. No vision or hearing changes. No sore throat. No chest pain or palpitations. No shortness of breath or cough. There is abdominal pain. No skin issues at this time. PHYSICAL EXAMINATION: VITAL SIGNS: 98.3 temperature, 77 pulse, 18 respiratory rate, 147/44 blood pressure, 97% O2 sat. GENERAL: Well appearing, fairly toxic, with nausea and vomiting positive, alert and oriented x3. HEENT: Head is atraumatic, normocephalic. Extraocular muscles are intact. Pupils equal, reactive to light and accommodation. Throat is moist. NECK: Supple. HEART: Regular rate. LUNGS: Decreased breath sounds bilaterally, but clear to auscultation. ABDOMEN: Left-sided pain, mild tenderness. No distention. No rebound. No guarding. No CVA tenderness, but some pain. She also has been feeling EXTREMITIES: No edema of legs. NEUROLOGIC: GCS is 15. Cranial nerves II through XII grossly intact. She is pleasant, alert and oriented, with poor insight. LABORATORY DATA: She has a 14.5 white count, 12.6 hemoglobin, 39 hematocrit, with 285 platelets. INR 1.45. Sodium 139 , potassium 5.3. BUN 60, creatinine 2.5. I am going to put her on some IV fluids, seems to be a little bit dry. Sugar is 116. Calcium is 7.1. Total bili is 0.4. AST is 48, ALT is 33, alkaline phosphatase 106. Troponin I is less than 0.01. Total protein is 9, albumin is 4.6, globulin is 4.4. She has a CAT scan of the abdomen and pelvis pending. ASSESSMENT AND PLAN: I am going to put her on some IV fluids, insulin coverage. Check her labs tomorrow. Consult GI, history of abdominal pain, nausea, vomiting, diarrhea. Marco Farris DO MTDD
[2017-06-22 07:07] LABS: HEMOGLOBIN 11.6 g/dL (12.0-16.0); MEAN CELL VOLUME 87.6 fl (80.0-105.0); MEAN CORPUSCULAR HEMOGLOBIN 28.2 pg (25.0-35.0); MEAN CORPUSCULAR HGB CONC 32.2 g/dl (31.0-37.0); MEAN PLATELET VOLUME 9.6 fl (7.0-11.0); RBC 4.11 10^6/uL (3.5-6.1); RED CELL DISTRIBUTION WIDTH 16.5 % (11.5-14.5); WHITE BLOOD COUNT 11.8 10^3/ul (4.5-11.0)
[2017-06-22 07:47] LABS: ALBUMIN 4.1 g/dL (3.0-4.8); CALCIUM 9.5 mg/dL (8.4-10.5)
[2017-06-22] MEDS ORDERED: Sod Polystyrene Sulf 15 gm/60 ml Susp PO ONE (07:55)
[2017-06-22] MEDS: Insulin Reg-MEDIUM-Coverage SC SCH ×4 (08:19→21:55)
--- NOTE | 2017-06-22 08:29 | RAD ---
HISTORY: Abdominal pain COMPARISON: 05/27/2017. FINDINGS: LUNGS: The lungs are clear. PLEURA: No significant pleural effusion identified, no pneumothorax apparent. CARDIOVASCULAR: Again seen is moderate cardiomegaly. There is stable position of unipolar right sided permanent pacing device. OSSEOUS STRUCTURES: No significant abnormalities. VISUALIZED UPPER ABDOMEN: Normal. OTHER FINDINGS: None. IMPRESSION: No active pulmonary disease.
[2017-06-22] MEDS ORDERED: DILTIAZEM 180 MG PO SCH (10:00)
[2017-06-22] MEDS: diltiaZEM 180 mg/24 Hours CD Cap PO SCH (10:17)
[2017-06-22] MEDS ORDERED: Sodium Chloride 0.9% 1,000 ML IV SCH ×2 (10:45→18:45)
[2017-06-22] MEDS ORDERED: ceFAZolin 1 gm in NS 1 GM/100 ML BAG IVPB SCH (11:37)
--- NOTE | 2017-06-22 12:40 | CP.PCM.CON ---
History of Present Illness - History of Present Illness History of Present Illness: Nephrology Consultation Note: Assessment: stable acute gastroenteritis and pancreatitis PATRICIA likely pre-renal state as evident by GI fluid loss, hemoconcentration with associated hyperkalemia and acidosis Chronic Kidney Disease Stage 3 (N18.3) with 322 mg proteinuria possibly due to HTN, age related decline, and s/p Rt nephrectomy due to hx of RCC Hypertension controlled (I12.9) Vit D insufficiency with secondary hyperparathyroidism, anemia hx of severe pulmonary HTN (RVSP 81 mm Hg) and moderate to severe LVH hx of dementia bradycardia s/p PPM, A fib Plan no acute need of renal replacement therapy at this time no ACEI or ARB due to PATRICIA and hyperkalemia. maintain hemodynamic stable. pt getting meds to control A fib rate anemia management: PRBC as needed, once orally accepting, can start on iron 324 mg TID and MVI. dose of aransep 60 mcg 05/21/17. further dosing if Hb <10 hold diuretics. will continue with IVF as NS @ 75 ml/hr. Dose meds/antibiotics for reduced GFR. Avoid fleets enema/magnesium based laxatives. Avoid nephrotoxins/NSAIDs/IV iodinated contrast (unless emergent) Further work up as per primary team Thanks for allowing me to participate in care of your patient. will follow with you. Please call if any Qs. d/w team Dr Jt Lemon Office: [phone] CC; vomiting and loose stool Reason for consult: CKD and PATRICIA HPI: Pt is a 81 y/o F with hx of hypertension (20 years) , renal cell cancer s/ p unilateral total nephrectomy, CKD stage 3 with baseline cr 1.4-1.7 since 2017 but intermittent and frequent episodes of PATRICIA, chronic anemia, A fib, bradycardia s/p PPM admitted with pain abdomen and loose stool with vomitting for last 1-2 days, also associated with decreased oral intake. initial abdomen imaging unremarkable but pt with elevated lipase and PATRICIA. renal consult for further management of PATRICIA. pt feels sick. improved GI symptoms ROS: denies CP/SOB. improved nausea/vomiting/pain abdomen denies urine complaints. all other negative except as in HPI. feels sick and tired Physical Examination: General Appearance: Comfortable, in no acute respiratory distress, co-operative . ill appearing, also appears fatigued and tired Vitals reviewed and noted as below Head; Atraumatic, normocephalic ENT: no ulcers no thrush. Tongue is midline. Oropharynx: no rash or ulcers. EYES: Pupils are equal, round and reactive to light accommodation. Eye muscles and extraocular movement intact. Sclera is anicteric. Neck; supple no lymphadenopathy, no thyromegaly or bruit Lungs: Normal respiratory rate/effort. Breath sounds bilateral equal and clear Heart: Increased rate. s1s2 normal. No rub or gallop. has PPM and A fib Extremities: no edema. No varicose veins Neurological: Patient is alert, awake and oriented x3 No other focal deficit. Strength bilateral appropriate and equal Skin: Warm and dry. Normal turgor. No rash. Palpitation: Normal elasticity for age Abdomen: Abdomen is soft. Bowel sounds +. There is no abdominal tenderness, no guarding/rigidity or organomegaly Psych: limited insight and has normal affect/mood MSK: no joint tenderness or swelling. Digits and nails normal, no deformity : kidney or bladder not palpable Labs/imaging/EKG reviewed. Past medical history, past surgical history,social history, allergy reviewed and noted as below FAMILy HX; no hx of CKD. non contributory work up: CT 2018: s/p Rt nephrectomy, left kidney unremarkable Vit D 35 PTH 70 TSAT 10% Ferritin 30 Past Patient History - Infectious Disease Hx of Infectious Diseases: None - Tetanus Immunizations Tetanus Immunization: >10 years Ago - Past Medical History & Family History Past Medical History?: Yes - Past Social History Smoking Status: Former Smoker - CARDIAC Hx Cardiac Disorders: Yes Hx Atrial Fibrillation: Yes Hx Congestive Heart Failure: Yes Hx Hypertension: Yes - PULMONARY Hx Respiratory Disorders: Yes (USED TO SMOKE 6 CIG A DAY) - NEUROLOGICAL Hx Neurological Disorder: Yes Hx Dementia: Yes Hx Dizziness: Yes (SYNCOPE) - HEENT Hx HEENT Problems: Yes (glasses) - RENAL Hx Chronic Kidney Disease: Yes - ENDOCRINE/METABOLIC Hx Endocrine Disorders: No - HEMATOLOGICAL/ONCOLOGICAL Hx Cancer: No - INTEGUMENTARY Hx Dermatological Problems: No - MUSCULOSKELETAL/RHEUMATOLOGICAL Hx Arthritis: Yes - GASTROINTESTINAL Hx Gastrointestinal Disorders: Yes Hx Gastroesophageal Reflux: Yes - GENITOURINARY/GYNECOLOGICAL Hx Reproductive Disorders: No - PSYCHIATRIC Hx Psychophysiologic Disorder: Yes Hx Anxiety: Yes Hx Substance Use: No - SURGICAL HISTORY Hx Mastectomy: No - ANESTHESIA Hx Anesthesia: Yes Hx Anesthesia Reactions: No Hx Malignant Hyperthermia: No Meds Allergies/Adverse Reactions: Allergies Allergy/AdvReac Type Severity Reaction Status Date / Time No Known Allergies Allergy Verified 05/27/17 05:34 - Medications Medications: Current Medications Alprazolam (Xanax) 0.5 mg PO BID PRN; Protocol PRN Reason: Anxiety Last Admin: 06/21/17 22:40 Dose: 0.5 mg Apixaban (Eliquis) 2.5 mg PO BID [facility] PRN Reason: Protocol Last Admin: 06/22/17 10:13 Dose: 2.5 mg Aspirin (Aspirin Chewable) 81 mg PO DAILY [facility] Last Admin: 06/22/17 10:18 Dose: 81 mg Atorvastatin Calcium (Lipitor) 20 mg PO DAILY [facility] Last Admin: 06/22/17 10:13 Dose: 20 mg Diltiazem HCl (Cardizem Cd) 180 mg PO DAILY [facility] Last Admin: 06/22/17 10:17 Dose: Not Given Donepezil HCl (Aricept) 10 mg PO HS [facility] Last Admin: 06/21/17 22:34 Dose: 10 mg Ferrous Gluconate (Fergon) 324 mg PO TID [facility] Last Admin: 06/22/17 10:13 Dose: 324 mg Sodium Chloride (Sodium Chloride 0.9%) 1,000 mls @ 75 mls/hr IV .[id number] [facility] Stop: 06/24/17 10:46 Cefazolin Sodium (Ancef 1gm In Ns) 1 gm in 100 mls @ 100 mls/hr IVPB Q12 [facility] PRN Reason: Protocol Insulin Human Regular (Humulin R Med) 0 units SC ACHS [facility] PRN Reason: Protocol Last Admin: 06/22/17 11:58 Dose: Not Given Metoprolol Tartrate (Lopressor) 25 mg PO BID [facility] Last Admin: 06/22/17 10:18 Dose: 25 mg Ondansetron HCl (Zofran Inj) 4 mg IVP Q4H PRN PRN Reason: Nausea/Vomiting Pantoprazole Sodium (Protonix Inj) 40 mg IVP DAILY [facility] Last Admin: 06/22/17 10:14 Dose: 40 mg Tramadol HCl (Ultram) 50 mg PO TID PRN PRN Reason: Pain, moderate (4-7) Last Admin: 06/22/17 08:19 Dose: 50 mg Results - Vital Signs Recent Vital Signs: Last Vital Signs Temp 98.4 F 06/22/17 06:00 Pulse 129 H 06/22/17 10:18 Resp 20 06/22/17 06:00 BP 102/64 06/22/17 10:18 Pulse Ox 97 06/22/17 06:00 - Labs Result Diagrams: 06/22/17 06:20 06/22/17 06:20 Labs: Laboratory Results - last 24 hr 06/21/17 06/22/17 06/22/17 21:24 06:20 06:20 WBC 11.8 H RBC 4.11 Hgb 11.6 L Hct 36.0 MCV 87.6 MCH 28.2 MCHC 32.2 RDW 16.5 H Plt Count 263 MPV 9.6 Sodium 138 Potassium 5.8 H* Chloride 107 Carbon Dioxide 19 L Anion Gap 18 BUN 57 H Creatinine 2.3 H Est GFR ( Amer) 25 Est GFR (Non-Af Amer) 20 POC Glucose (mg/dL) 103 Random Glucose 98 Calcium 9.5 Total Bilirubin 0.4 AST 43 H ALT 31 Alkaline Phosphatase 99 Total Protein 8.0 Albumin 4.1 Globulin 3.9 Albumin/Globulin Ratio 1.0 L 06/22/17 06/22/17 08:14 11:24 WBC RBC Hgb Hct MCV MCH MCHC RDW Plt Count MPV Sodium Potassium Chloride Carbon Dioxide Anion Gap BUN Creatinine Est GFR ( Amer) Est GFR (Non-Af Amer) POC Glucose (mg/dL) 106 110 Random Glucose Calcium Total Bilirubin AST ALT Alkaline Phosphatase Total Protein Albumin Globulin Albumin/Globulin Ratio
--- NOTE | 2017-06-22 12:56 | CP.PCM.CON ---
<Jolene Arvizu - Last Filed: 06/22/17 13:06> History of Present Illness - History of Present Illness History of Present Illness: PGY4 Initial GI Consult Sarah Baker is a 82 year old female with h/o COPD, dementia, lung ca s/p lobectomy, HTN who presents with supposed abd pain. Pt is a poor historian so all information obtained is from her, EMR and nursing staff. Pt denies any abd pain and states that her pain is located at her left upper thigh. As per overnight nurse, pt did not complain of any abd pain. Had 1 BM yesterday without blood or melena. Pt states that she is hungry. She denies any nausea, vomiting or diarrhea. CT abd was w/o oral or IV contrast, but did not reveal any obvious cause of her abd pain including pancreatitis. Her lipase was slightly elevated ~500. Med and Surg hx: see above Social history: non-smoker, no ETOH use Family history: reviewed, patient denies history of GI malignancies Endo Hx: EGD and Colonoscopy 2017: hepatic AVM s/p argon, smaller AVM in ascending; gastric erosions ROS: 12 point ROS conducted neg other than above Past Patient History - Infectious Disease Hx of Infectious Diseases: None - Tetanus Immunizations Tetanus Immunization: >10 years Ago - Past Medical History & Family History Past Medical History?: Yes - Past Social History Smoking Status: Former Smoker - CARDIAC Hx Cardiac Disorders: Yes Hx Atrial Fibrillation: Yes Hx Congestive Heart Failure: Yes Hx Hypertension: Yes - PULMONARY Hx Respiratory Disorders: Yes (USED TO SMOKE 6 CIG A DAY) - NEUROLOGICAL Hx Neurological Disorder: Yes Hx Dementia: Yes Hx Dizziness: Yes (SYNCOPE) - HEENT Hx HEENT Problems: Yes (glasses) - RENAL Hx Chronic Kidney Disease: Yes - ENDOCRINE/METABOLIC Hx Endocrine Disorders: No - HEMATOLOGICAL/ONCOLOGICAL Hx Cancer: No - INTEGUMENTARY Hx Dermatological Problems: No - MUSCULOSKELETAL/RHEUMATOLOGICAL Hx Arthritis: Yes - GASTROINTESTINAL Hx Gastrointestinal Disorders: Yes Hx Gastroesophageal Reflux: Yes - GENITOURINARY/GYNECOLOGICAL Hx Reproductive Disorders: No - PSYCHIATRIC Hx Psychophysiologic Disorder: Yes Hx Anxiety: Yes Hx Substance Use: No - SURGICAL HISTORY Hx Mastectomy: No - ANESTHESIA Hx Anesthesia: Yes Hx Anesthesia Reactions: No Hx Malignant Hyperthermia: No Meds Allergies/Adverse Reactions: Allergies Allergy/AdvReac Type Severity Reaction Status Date / Time No Known Allergies Allergy Verified 05/27/17 05:34 - Medications Medications: Current Medications Alprazolam (Xanax) 0.5 mg PO BID PRN; Protocol PRN Reason: Anxiety Last Admin: 06/21/17 22:40 Dose: 0.5 mg Apixaban (Eliquis) 2.5 mg PO BID [facility] PRN Reason: Protocol Last Admin: 06/22/17 10:13 Dose: 2.5 mg Aspirin (Aspirin Chewable) 81 mg PO DAILY [facility] Last Admin: 06/22/17 10:18 Dose: 81 mg Atorvastatin Calcium (Lipitor) 20 mg PO DAILY [facility] Last Admin: 06/22/17 10:13 Dose: 20 mg Diltiazem HCl (Cardizem Cd) 180 mg PO DAILY [facility] Last Admin: 06/22/17 10:17 Dose: Not Given Donepezil HCl (Aricept) 10 mg PO HS [facility] Last Admin: 06/21/17 22:34 Dose: 10 mg Ferrous Gluconate (Fergon) 324 mg PO TID [facility] Last Admin: 06/22/17 10:13 Dose: 324 mg Sodium Chloride (Sodium Chloride 0.9%) 1,000 mls @ 75 mls/hr IV .[id number] [facility] Stop: 06/24/17 10:46 Last Admin: 06/22/17 12:34 Dose: 75 mls/hr Cefazolin Sodium (Ancef 1gm In Ns) 1 gm in 100 mls @ 100 mls/hr IVPB Q12 [facility] PRN Reason: Protocol Insulin Human Regular (Humulin R Med) 0 units SC ACHS [facility] PRN Reason: Protocol Last Admin: 06/22/17 11:58 Dose: Not Given Metoprolol Tartrate (Lopressor) 25 mg PO BID [facility] Last Admin: 06/22/17 10:18 Dose: 25 mg Ondansetron HCl (Zofran Inj) 4 mg IVP Q4H PRN PRN Reason: Nausea/Vomiting Pantoprazole Sodium (Protonix Inj) 40 mg IVP DAILY [facility] Last Admin: 06/22/17 10:14 Dose: 40 mg Tramadol HCl (Ultram) 50 mg PO TID PRN PRN Reason: Pain, moderate (4-7) Last Admin: 06/22/17 08:19 Dose: 50 mg Physical Exam - Constitutional Appears: Well, No Acute Distress - Head Exam Head Exam: ATRAUMATIC, NORMOCEPHALIC - Eye Exam Eye Exam: Normal appearance Pupil Exam: NORMAL ACCOMODATION, PERRL - ENT Exam ENT Exam: Mucous Membranes Moist, Normal Exam - Neck Exam Neck exam: Positive for: Normal Inspection - Respiratory Exam Respiratory Exam: Clear to Auscultation Bilateral, NORMAL BREATHING PATTERN. absent: Chest Wall Tenderness, Decreased Breath Sounds, Prolonged Expiratory Phase, Rales, Rhonchi, Wheezes, Respiratory Distress - Cardiovascular Exam Cardiovascular Exam: REGULAR RHYTHM, +S1, +S2 - GI/Abdominal Exam GI & Abdominal Exam: Normal Bowel Sounds, Soft. absent: Diminished Bowel Sounds , Distended, Guarding, Organomegaly, Pulsatile Mass, Rebound, Rigid, Tenderness - Extremities Exam Extremities exam: Negative for: joint swelling, pedal edema - Back Exam Back exam: NORMAL INSPECTION - Neurological Exam Neurological exam: Alert, Oriented x3 - Psychiatric Exam Psychiatric exam: Normal Affect, Normal Mood - Skin Skin Exam: Dry, Intact, Normal Color, Warm Results - Vital Signs Recent Vital Signs: Last Vital Signs Temp 98.4 F 06/22/17 06:00 Pulse 129 H 06/22/17 10:18 Resp 20 06/22/17 06:00 BP 102/64 06/22/17 10:18 Pulse Ox 97 06/22/17 06:00 - Labs Result Diagrams: 06/22/17 06:20 06/22/17 06:20 Labs: Laboratory Results - last 24 hr 06/21/17 06/22/17 06/22/17 21:24 06:20 06:20 WBC 11.8 H RBC 4.11 Hgb 11.6 L Hct 36.0 MCV 87.6 MCH 28.2 MCHC 32.2 RDW 16.5 H Plt Count 263 MPV 9.6 Sodium 138 Potassium 5.8 H* Chloride 107 Carbon Dioxide 19 L Anion Gap 18 BUN 57 H Creatinine 2.3 H Est GFR ( Amer) 25 Est GFR (Non-Af Amer) 20 POC Glucose (mg/dL) 103 Random Glucose 98 Calcium 9.5 Total Bilirubin 0.4 AST 43 H ALT 31 Alkaline Phosphatase 99 Total Protein 8.0 Albumin 4.1 Globulin 3.9 Albumin/Globulin Ratio 1.0 L 06/22/17 06/22/17 08:14 11:24 WBC RBC Hgb Hct MCV MCH MCHC RDW Plt Count MPV Sodium Potassium Chloride Carbon Dioxide Anion Gap BUN Creatinine Est GFR ( Amer) Est GFR (Non-Af Amer) POC Glucose (mg/dL) 106 110 Random Glucose Calcium Total Bilirubin AST ALT Alkaline Phosphatase Total Protein Albumin Globulin Albumin/Globulin Ratio Assessment & Plan - Assessment and Plan (Free Text) Assessment: Sarah Baker is a 82 year old female with h/o COPD, dementia, lung ca s/p lobectomy, HTN who presents with supposed abd pain. Abd pain, resolved Elevated Lipase, unlikely pancreatitis, not greater than x3 the upper normal, no abd pain, and no indication on CT hx of anemia, no active meeting Plan: -recommend starting clears, if tolerated, advance to now fat for dinner -Fluids as per nephrology, no indication for aggressive fluid resuscitation since it is unlikely pancreatitis -will eventually need repeat EGD and colonoscopy as an outpt as per previous recommendation -no need for additional imaging -rest of care as per primary team D/W Dr. Courtney <Dago Courtney - Last Filed: 06/22/17 13:15> Meds - Medications Medications: Current Medications Alprazolam (Xanax) 0.5 mg PO BID PRN; Protocol PRN Reason: Anxiety Last Admin: 06/21/17 22:40 Dose: 0.5 mg Apixaban (Eliquis) 2.5 mg PO BID [facility] PRN Reason: Protocol Last Admin: 06/22/17 10:13 Dose: 2.5 mg Aspirin (Aspirin Chewable) 81 mg PO DAILY [facility] Last Admin: 06/22/17 10:18 Dose: 81 mg Atorvastatin Calcium (Lipitor) 20 mg PO DAILY [facility] Last Admin: 06/22/17 10:13 Dose: 20 mg Diltiazem HCl (Cardizem Cd) 180 mg PO DAILY [facility] Last Admin: 06/22/17 10:17 Dose: Not Given Donepezil HCl (Aricept) 10 mg PO HS [facility] Last Admin: 06/21/17 22:34 Dose: 10 mg Ferrous Gluconate (Fergon) 324 mg PO TID [facility] Last Admin: 06/22/17 10:13 Dose: 324 mg Sodium Chloride (Sodium Chloride 0.9%) 1,000 mls @ 75 mls/hr IV .[id number] [facility] Stop: 06/24/17 10:46 Last Admin: 06/22/17 12:34 Dose: 75 mls/hr Cefazolin Sodium (Ancef 1gm In Ns) 1 gm in 100 mls @ 100 mls/hr IVPB Q12 [facility] PRN Reason: Protocol Insulin Human Regular (Humulin R Med) 0 units SC ACHS [facility] PRN Reason: Protocol Last Admin: 06/22/17 11:58 Dose: Not Given Metoprolol Tartrate (Lopressor) 25 mg PO BID [facility] Last Admin: 06/22/17 10:18 Dose: 25 mg Ondansetron HCl (Zofran Inj) 4 mg IVP Q4H PRN PRN Reason: Nausea/Vomiting Pantoprazole Sodium (Protonix Inj) 40 mg IVP DAILY [facility] Last Admin: 06/22/17 10:14 Dose: 40 mg Tramadol HCl (Ultram) 50 mg PO TID PRN PRN Reason: Pain, moderate (4-7) Last Admin: 06/22/17 08:19 Dose: 50 mg Results - Vital Signs Recent Vital Signs: Last Vital Signs Temp 98.4 F 06/22/17 06:00 Pulse 129 H 06/22/17 10:18 Resp 20 06/22/17 06:00 BP 102/64 06/22/17 10:18 Pulse Ox 97 06/22/17 06:00 - Labs Result Diagrams: 06/22/17 06:20 06/22/17 06:20 Labs: Laboratory Results - last 24 hr 06/21/17 06/22/17 06/22/17 21:24 06:20 06:20 WBC 11.8 H RBC 4.11 Hgb 11.6 L Hct 36.0 MCV 87.6 MCH 28.2 MCHC 32.2 RDW 16.5 H Plt Count 263 MPV 9.6 Sodium 138 Potassium 5.8 H* Chloride 107 Carbon Dioxide 19 L Anion Gap 18 BUN 57 H Creatinine 2.3 H Est GFR ( Amer) 25 Est GFR (Non-Af Amer) 20 POC Glucose (mg/dL) 103 Random Glucose 98 Calcium 9.5 Total Bilirubin 0.4 AST 43 H ALT 31 Alkaline Phosphatase 99 Total Protein 8.0 Albumin 4.1 Globulin 3.9 Albumin/Globulin Ratio 1.0 L 06/22/17 06/22/17 08:14 11:24 WBC RBC Hgb Hct MCV MCH MCHC RDW Plt Count MPV Sodium Potassium Chloride Carbon Dioxide Anion Gap BUN Creatinine Est GFR ( Amer) Est GFR (Non-Af Amer) POC Glucose (mg/dL) 106 110 Random Glucose Calcium Total Bilirubin AST ALT Alkaline Phosphatase Total Protein Albumin Globulin Albumin/Globulin Ratio Attending/Attestation - Attestation I have personally seen and examined this patient.: Yes I have fully participated in the care of the patient.: Yes I have reviewed all pertinent clinical information: Yes Notes (Text): 06/22/17 13:14 81 year old female with h/o COPD, dementia, we are consulted for abdominal pain. the patient currently denies any pain. She had a normal CT scan. She had a slightly increased lipase, but not consistent with pancreatitis as it is only mildly elevated. Advance diet as tolerated. Will sign off. Please note above mentioned h/o lung ca was entered in error.
--- NOTE | 2017-06-22 13:11 | CP.PCM.CON ---
History of Present Illness - History of Present Illness History of Present Illness: PGY4 Initial GI Consult Sarah Baker is a 81F w/ hx of dementia, CHF, CAD HL, Afib, and HTN who presents with supposed abd pain. Pt is a poor historian so all information obtained is from her, EMR and nursing staff. Pt denies any abd pain and states that her pain is located at her left upper thigh. As per overnight nurse, pt did not complain of any abd pain. Had 1 BM yesterday without blood or melena. Pt states that she is hungry. She denies any nausea, vomiting or diarrhea. CT abd was w/o oral or IV contrast, but did not reveal any obvious cause of her abd pain including pancreatitis. Her lipase was slightly elevated ~500. Med and Surg hx: see above Social history: non-smoker, no ETOH use Family history: reviewed, patient denies history of GI malignancies Endo Hx: EGD and Colonoscopy 2017: hepatic AVM s/p argon, smaller AVM in ascending; gastric erosions ROS: 12 point ROS conducted neg other than above Past Patient History - Infectious Disease Hx of Infectious Diseases: None - Tetanus Immunizations Tetanus Immunization: >10 years Ago - Past Medical History & Family History Past Medical History?: Yes - Past Social History Smoking Status: Former Smoker - CARDIAC Hx Cardiac Disorders: Yes Hx Atrial Fibrillation: Yes Hx Congestive Heart Failure: Yes Hx Hypertension: Yes - PULMONARY Hx Respiratory Disorders: Yes (USED TO SMOKE 6 CIG A DAY) - NEUROLOGICAL Hx Neurological Disorder: Yes Hx Dementia: Yes Hx Dizziness: Yes (SYNCOPE) - HEENT Hx HEENT Problems: Yes (glasses) - RENAL Hx Chronic Kidney Disease: Yes - ENDOCRINE/METABOLIC Hx Endocrine Disorders: No - HEMATOLOGICAL/ONCOLOGICAL Hx Cancer: No - INTEGUMENTARY Hx Dermatological Problems: No - MUSCULOSKELETAL/RHEUMATOLOGICAL Hx Arthritis: Yes - GASTROINTESTINAL Hx Gastrointestinal Disorders: Yes Hx Gastroesophageal Reflux: Yes - GENITOURINARY/GYNECOLOGICAL Hx Reproductive Disorders: No - PSYCHIATRIC Hx Psychophysiologic Disorder: Yes Hx Anxiety: Yes Hx Substance Use: No - SURGICAL HISTORY Hx Mastectomy: No - ANESTHESIA Hx Anesthesia: Yes Hx Anesthesia Reactions: No Hx Malignant Hyperthermia: No Meds Allergies/Adverse Reactions: Allergies Allergy/AdvReac Type Severity Reaction Status Date / Time No Known Allergies Allergy Verified 05/27/17 05:34 - Medications Medications: Current Medications Alprazolam (Xanax) 0.5 mg PO BID PRN; Protocol PRN Reason: Anxiety Last Admin: 06/21/17 22:40 Dose: 0.5 mg Apixaban (Eliquis) 2.5 mg PO BID [facility] PRN Reason: Protocol Last Admin: 06/22/17 10:13 Dose: 2.5 mg Aspirin (Aspirin Chewable) 81 mg PO DAILY [facility] Last Admin: 06/22/17 10:18 Dose: 81 mg Atorvastatin Calcium (Lipitor) 20 mg PO DAILY [facility] Last Admin: 06/22/17 10:13 Dose: 20 mg Diltiazem HCl (Cardizem Cd) 180 mg PO DAILY [facility] Last Admin: 06/22/17 10:17 Dose: Not Given Donepezil HCl (Aricept) 10 mg PO HS [facility] Last Admin: 06/21/17 22:34 Dose: 10 mg Ferrous Gluconate (Fergon) 324 mg PO TID [facility] Last Admin: 06/22/17 10:13 Dose: 324 mg Sodium Chloride (Sodium Chloride 0.9%) 1,000 mls @ 75 mls/hr IV .[id number] [facility] Stop: 06/24/17 10:46 Last Admin: 06/22/17 12:34 Dose: 75 mls/hr Cefazolin Sodium (Ancef 1gm In Ns) 1 gm in 100 mls @ 100 mls/hr IVPB Q12 [facility] PRN Reason: Protocol Insulin Human Regular (Humulin R Med) 0 units SC ACHS [facility] PRN Reason: Protocol Last Admin: 06/22/17 11:58 Dose: Not Given Metoprolol Tartrate (Lopressor) 25 mg PO BID [facility] Last Admin: 06/22/17 10:18 Dose: 25 mg Ondansetron HCl (Zofran Inj) 4 mg IVP Q4H PRN PRN Reason: Nausea/Vomiting Pantoprazole Sodium (Protonix Inj) 40 mg IVP DAILY [facility] Last Admin: 06/22/17 10:14 Dose: 40 mg Tramadol HCl (Ultram) 50 mg PO TID PRN PRN Reason: Pain, moderate (4-7) Last Admin: 06/22/17 08:19 Dose: 50 mg Results - Vital Signs Recent Vital Signs: Last Vital Signs Temp 98.4 F 06/22/17 06:00 Pulse 129 H 06/22/17 10:18 Resp 20 06/22/17 06:00 BP 102/64 06/22/17 10:18 Pulse Ox 97 06/22/17 06:00 - Labs Result Diagrams: 06/22/17 06:20 06/22/17 06:20 Labs: Laboratory Results - last 24 hr 06/21/17 06/22/17 06/22/17 21:24 06:20 06:20 WBC 11.8 H RBC 4.11 Hgb 11.6 L Hct 36.0 MCV 87.6 MCH 28.2 MCHC 32.2 RDW 16.5 H Plt Count 263 MPV 9.6 Sodium 138 Potassium 5.8 H* Chloride 107 Carbon Dioxide 19 L Anion Gap 18 BUN 57 H Creatinine 2.3 H Est GFR ( Amer) 25 Est GFR (Non-Af Amer) 20 POC Glucose (mg/dL) 103 Random Glucose 98 Calcium 9.5 Total Bilirubin 0.4 AST 43 H ALT 31 Alkaline Phosphatase 99 Total Protein 8.0 Albumin 4.1 Globulin 3.9 Albumin/Globulin Ratio 1.0 L 06/22/17 06/22/17 08:14 11:24 WBC RBC Hgb Hct MCV MCH MCHC RDW Plt Count MPV Sodium Potassium Chloride Carbon Dioxide Anion Gap BUN Creatinine Est GFR ( Amer) Est GFR (Non-Af Amer) POC Glucose (mg/dL) 106 110 Random Glucose Calcium Total Bilirubin AST ALT Alkaline Phosphatase Total Protein Albumin Globulin Albumin/Globulin Ratio
--- NOTE | 2017-06-22 14:21 | PN ---
DATE: SUBJECTIVE: I saw her resting comfortably in bed. She is having some left hip pain more than abdominal pain. The abdominal pain is sort of subsided. She is alert, comfortable. PHYSICAL EXAMINATION: VITAL SIGNS: She has a 98.3 temp, 84 pulse, 111/66 blood pressure, 18 respiratory rate, 95% O2 sat on room air. HEENT: Head is atraumatic, normocephalic. HEART: Regular rate. LUNGS: Decreased breath sounds, but clear. ABDOMEN: Soft. Positive bowel sounds, nontender at this time. EXTREMITIES: She can move all the extremities, but the left hip is now hurting her. She is pointing to the hip in the left femur. We will do x-rays. LABORATORY DATA: She has a 138 sodium; potassium is 5.8, I gave her Kayexalate 30 g today; BUN 57; creatinine 2.3, I am going to call in Renal; sugar is 98, calcium is 9.5, total bili is 0.4, AST is 43, ALT is 31, alk phos 99,. White count is 11.8, better; hemoglobin 11.6; hematocrit 36; platelets of 263. MEDICATIONS: She is currently on Ancef, Aricept, aspirin, Cardizem, Eliquis, Fergon, Lasix, Lipitor, Lopressor, Protonix, IV fluids, Ultram, Xanax and Zofran. ASSESSMENT AND PLAN: I ordered the consult for Gastroenterology. We will continue with the aggressive treatment and care. When I note the x-rays, they have started doing physical therapy and when after Gastroenterology sees her, I will probably increase her diet to clears. Awaiting for Gastroenterology and I will call in Renal. Marco Farris DO MTDD
--- NOTE | 2017-06-22 16:02 | CP.PCM.PN ---
Subjective - Date & Time of Evaluation Date of Evaluation: 06/22/17 Time of Evaluation: 15:59 - Subjective Subjective: PGY-[address] Farris CC: Persistent tachycardia Ms Baker, 81F, with PMHx Bradycardia s/p PPM, A-fib on Eliquis, lung CA s/p R lobectomy, COPD, dementia, HTN, CKD 3 s/p R nephrectomy due to RCC, came to emergency room c/o left sided abdominal pain, nausea, vomiting, diarrhea. She was diagnosed with acute gastroenteritis (treated with ancef) and pre-renal PATRICIA secondary to GI fluid loss (treated with NS@75). GI team thinks that pt is unlikely to have pancreatitis. Her potassium was 5.8. After pt received 1 dose of Kayexalate, she produced a large amount of watery stool. Pt BP drops to 102/ 64, HR climbs to 124. Pt received metoprolol 25 this AM, but cardizem Cd 180 was hold due to low normal blood pressure. Pt is currently on clear liquid diet Pt complaints of L leg cramps, 7/10 in pain scale Denies SEGUNDO, dizziness, CP, SOB, abdominal pain. (+) L leg cramps. VS: HR 125, BP 101/54, RR 22, POx 99 on 2L. blood glucose 163 Objective - Vital Signs/Intake and Output Vital Signs (last 24 hours): Temp Pulse Resp BP Pulse Ox 98.4 F 129 H 20 102/64 97 06/22/17 06:00 06/22/17 10:18 06/22/17 06:00 06/22/17 10:18 06/22/17 06:00 Intake and Output: 06/22/17 06/22/17 06:59 18:59 Intake Total 2400 Balance 2400 - Medications Medications: Current Medications Alprazolam (Xanax) 0.5 mg PO BID PRN; Protocol PRN Reason: Anxiety Last Admin: 06/21/17 22:40 Dose: 0.5 mg Apixaban (Eliquis) 2.5 mg PO BID [facility] PRN Reason: Protocol Last Admin: 06/22/17 10:13 Dose: 2.5 mg Aspirin (Aspirin Chewable) 81 mg PO DAILY [facility] Last Admin: 06/22/17 10:18 Dose: 81 mg Atorvastatin Calcium (Lipitor) 20 mg PO DAILY [facility] Last Admin: 06/22/17 10:13 Dose: 20 mg Diltiazem HCl (Cardizem Cd) 180 mg PO DAILY [facility] Last Admin: 06/22/17 10:17 Dose: Not Given Donepezil HCl (Aricept) 10 mg PO HS [facility] Last Admin: 06/21/17 22:34 Dose: 10 mg Ferrous Gluconate (Fergon) 324 mg PO TID [facility] Last Admin: 06/22/17 14:20 Dose: 324 mg Sodium Chloride (Sodium Chloride 0.9%) 1,000 mls @ 75 mls/hr IV .[id number] [facility] Stop: 06/24/17 10:46 Last Admin: 06/22/17 12:34 Dose: 75 mls/hr Cefazolin Sodium (Ancef 1gm In Ns) 1 gm in 100 mls @ 100 mls/hr IVPB Q12 [facility] PRN Reason: Protocol Insulin Human Regular (Humulin R Med) 0 units SC ACHS [facility] PRN Reason: Protocol Last Admin: 06/22/17 11:58 Dose: Not Given Metoprolol Tartrate (Lopressor) 25 mg PO BID [facility] Last Admin: 06/22/17 10:18 Dose: 25 mg Ondansetron HCl (Zofran Inj) 4 mg IVP Q4H PRN PRN Reason: Nausea/Vomiting Pantoprazole Sodium (Protonix Inj) 40 mg IVP DAILY [facility] Last Admin: 06/22/17 10:14 Dose: 40 mg Tramadol HCl (Ultram) 50 mg PO TID PRN PRN Reason: Pain, moderate (4-7) Last Admin: 06/22/17 08:19 Dose: 50 mg - Labs Labs: 06/22/17 06:20 06/22/17 06:20 PT 16.7 SECONDS (9.4-12.5) H 06/21/17 17:23 INR 1.45 (0.93-1.08) H 06/21/17 17:23 APTT 28.5 Seconds (25.1-36.5) 06/21/17 17:23 - Constitutional Appears: No Acute Distress - Head Exam Head Exam: ATRAUMATIC, NORMAL INSPECTION, NORMOCEPHALIC - Eye Exam Eye Exam: EOMI, Normal appearance, PERRL Pupil Exam: NORMAL ACCOMODATION - ENT Exam ENT Exam: Mucous Membranes Moist - Neck Exam Additional comments: supple - Respiratory Exam Respiratory Exam: Clear to Ausculation Bilateral - Cardiovascular Exam Cardiovascular Exam: Tachycardia, REGULAR RHYTHM, +S1, +S2 - GI/Abdominal Exam GI & Abdominal Exam: Soft - Extremities Exam Extremities Exam: Calf Tenderness, Normal Capillary Refill - Neurological Exam Neurological Exam: Alert, Awake - Psychiatric Exam Psychiatric exam: Normal Affect, Normal Mood - Skin Skin Exam: Dry, Normal Color Assessment and Plan - Assessment and Plan (Free Text) Plan: Tachycardia, A flutter @ 114, likely due to hypovolemia s/p large BM from kayexalate ? Low normal pressure 2/2 A flutter R/O DVT R/O PE - L Leg cramps, requiring 2L O2, Hx cancer R/O electrolyte abnormality R/O sepsis (on ancef) Hx Severe pulm HTN (Echo 03/2017 EF 56, RVSP 105) - 1L NS bolus then NS @ 100cc/hr - add strict i/o - Watch signs of fluid overload - CBC, CMP, Vbg lactate, blood culture, U/A. urine culture - D-dimer, coags, U/S leg b/l - Cardiac consult - left message for Dr. Lemon to call back - Spoke to Dr. Farris on phone s/r/d/w Dr. Farris
[2017-06-22] MEDS ORDERED: Sodium Chloride 0.9% 500 ML IV STA (17:13)
[2017-06-22 17:14] LABS: BASO # 0.01 K/mm3 (0.0-2.0); BASO % 0.1 % (0.0-3.0); EOS % 0.2 % (1.5-5.0); GRAN # 11.82 (1.4-6.5); GRAN % 87.4 % (50.0-68.0); LYMPH # 0.7 (1.2-3.4); LYMPH % 5.2 % (22.0-35.0); MEAN CELL VOLUME 89.8 fl (80.0-105.0); MEAN CORPUSCULAR HEMOGLOBIN 28.4 pg (25.0-35.0); MEAN CORPUSCULAR HGB CONC 31.6 g/dl (31.0-37.0); MEAN PLATELET VOLUME 9.7 fl (7.0-11.0); MONO % 7.1 % (1.0-6.0); RBC 4.23 10^6/uL (3.5-6.1); RED CELL DISTRIBUTION WIDTH 16.6 % (11.5-14.5); WHITE BLOOD COUNT 13.5 10^3/ul (4.5-11.0)
[2017-06-22 17:15] LABS: VENOUS BLOOD GAS BASE EXCESS -6.6 mmol/L (0.0-2.0); VENOUS BLOOD GAS PO2 43 mm/Hg (30-55); VENOUS BLOOD PH 7.24 (7.32-7.43)
[2017-06-22 17:34] LABS: CALCIUM 9.4 mg/dL (8.4-10.5)
[2017-06-22 17:35] LABS: INR 1.21 (0.93-1.08); PARTIAL THROMBOPLASTIN TIME 27.4 Seconds (25.1-36.5); PROTHROMBIN TIME 13.9 SECONDS (9.4-12.5)
[2017-06-22 17:40] LABS: TROPONIN I 0.02 ng/mL
--- NOTE | 2017-06-22 18:08 | RAD ---
PROCEDURE: Left Hip X-ray Radiographs. HISTORY: Pain. No history of recent/ related trauma provided COMPARISON: None. FINDINGS: BONES: Normal. No fracture. JOINTS: Symmetric, mild degenerative change. SOFT TISSUES: Normal. OTHER FINDINGS: None. IMPRESSION: No significant or acute findings to account for/ related to the clinical presentation.
[2017-06-22] MEDS ORDERED: cefTRIAXone 1 gm 1 GM/100 ML BAG IVPB SCH (19:41)
[2017-06-22] MEDS ORDERED: metroNIDAZOLE IV 500 mg/100 ml 500 MG/100 ML BAG IVPB SCH (19:43)
[2017-06-22] MEDS: Meropenem 500 MG in Sodium Chloride 0.9% 50 ML IVPB SCH ×2 (21:00→22:00)
[2017-06-22 21:16] LABS: URINE APPEARANCE SL CLOUDY (CLEAR); URINE BILIRUBIN NEGATIVE (NEGATIVE); URINE BLOOD TRACE-INTACT (NEGATIVE); URINE GLUCOSE (UA) NEGATIVE (NEGATIVE); URINE LEUKOCYTE ESTERASE SMALL Leu/uL (NEGATIVE); URINE PROTEIN TRACE mg/dL (<30 mg/dL); URINE UROBILINOGEN 0.2 E.U./dL (<1 E.U./dL)
[2017-06-22 21:17] LABS: URINE COLOR YELLOW (YELLOW)
--- NOTE | 2017-06-22 21:22 | CARD ---
APPROVED REPORT EKG Measurement Heart [id number] [id number] <Conclusion> Atrial flutter with variable AV block Right bundle branch block Left anterior fascicular block Bifascicular block Left ventricular hypertrophy with repolarization abnormality Cannot rule out Septal infarct, age undetermined Abnormal ECG
[2017-06-22 21:48] LABS: URINE BACTERIA FEW (NEG); URINE RBC 0 - 2 /hpf (0-2)
--- NOTE | 2017-06-22 21:50 | CP.PCM.PN ---
<Braden Morales - Last Filed: 06/22/17 21:50> Subjective - Date & Time of Evaluation Date of Evaluation: 06/22/17 Time of Evaluation: 19:23 - Subjective Subjective: Code Sepsis called 7:23pm Pt was found to be tachycardic 125 and hypotensive 98/72 with lactate of 2.4. Pt states that she was doing well. Denies any headaches, dizziness, sob, chest pain, abd pain, n/v/d. -Septic work up and basic labs was ordered. -EKG stat -Serial trop -1 L of bolus was already administered. 500ml was ordered stat. Totaling of 30ml /kg sepsis protocol -Antibiotics started - Rocephin and Flagyl was started initially but ID recommended Manuel which is active currently -F/u VBG lactate shock panel Case and plan was reviewed and discussed with Dr Amador. Objective - Vital Signs/Intake and Output Vital Signs (last 24 hours): Temp Pulse Resp BP Pulse Ox 98.4 F 129 H 20 110/78 97 06/22/17 06:00 06/22/17 10:18 06/22/17 06:00 06/22/17 17:55 06/22/17 06:00 Intake and Output: 06/22/17 06/23/17 18:59 06:59 Intake Total 2400 480 Balance 2400 480 - Medications Medications: Current Medications Alprazolam (Xanax) 0.5 mg PO BID PRN; Protocol PRN Reason: Anxiety Last Admin: 06/21/17 22:40 Dose: 0.5 mg Apixaban (Eliquis) 2.5 mg PO BID [facility] PRN Reason: Protocol Last Admin: 06/22/17 17:55 Dose: 2.5 mg Aspirin (Aspirin Chewable) 81 mg PO DAILY [facility] Last Admin: 06/22/17 10:18 Dose: 81 mg Atorvastatin Calcium (Lipitor) 20 mg PO DAILY [facility] Last Admin: 06/22/17 10:13 Dose: 20 mg Diltiazem HCl (Cardizem Cd) 180 mg PO DAILY [facility] Last Admin: 06/22/17 10:17 Dose: Not Given Donepezil HCl (Aricept) 10 mg PO HS [facility] Last Admin: 06/21/17 22:34 Dose: 10 mg Ferrous Gluconate (Fergon) 324 mg PO TID [facility] Last Admin: 04/17/18 17:53 Dose: 324 mg Sodium Chloride (Sodium Chloride 0.9%) 1,000 mls @ 100 mls/hr IV .Q10H [facility] Meropenem 500 mg/ Sodium (Chloride) 50 mls @ 100 mls/hr IVPB Q12 [facility] PRN Reason: Protocol Stop: 07/01/17 19:55 Insulin Human Regular (Humulin R Med) 0 units SC ACHS [facility] PRN Reason: Protocol Last Admin: 06/22/17 17:54 Dose: Not Given Metoprolol Tartrate (Lopressor) 25 mg PO BID [facility] Last Admin: 06/22/17 17:55 Dose: Not Given Ondansetron HCl (Zofran Inj) 4 mg IVP Q4H PRN PRN Reason: Nausea/Vomiting Pantoprazole Sodium (Protonix Inj) 40 mg IVP DAILY [facility] Last Admin: 06/22/17 10:14 Dose: 40 mg Tramadol HCl (Ultram) 50 mg PO TID PRN PRN Reason: Pain, moderate (4-7) Last Admin: 06/22/17 08:19 Dose: 50 mg - Labs Labs: 06/22/17 17:08 06/22/17 17:08 PT 13.9 SECONDS (9.4-12.5) H 06/22/17 17:08 INR 1.21 (0.93-1.08) H 06/22/17 17:08 APTT 27.4 Seconds (25.1-36.5) 06/22/17 17:08 - Constitutional Appears: No Acute Distress - Respiratory Exam Respiratory Exam: Clear to Ausculation Bilateral. absent: Rales, Wheezes - Cardiovascular Exam Cardiovascular Exam: Tachycardia, +S1, +S2 - GI/Abdominal Exam GI & Abdominal Exam: Soft. absent: Distended, Tenderness <MarjoriePniky - Last Filed: 06/22/17 22:42> Objective - Vital Signs/Intake and Output Vital Signs (last 24 hours): Temp Pulse Resp BP Pulse Ox 98.4 F 129 H 20 110/78 97 06/22/17 06:00 06/22/17 10:18 06/22/17 06:00 06/22/17 17:55 06/22/17 06:00 Intake and Output: 06/22/17 06/23/17 18:59 06:59 Intake Total 2400 480 Balance 2400 480 - Medications Medications: Current Medications Alprazolam (Xanax) 0.5 mg PO BID PRN; Protocol PRN Reason: Anxiety Last Admin: 06/21/17 22:40 Dose: 0.5 mg Apixaban (Eliquis) 2.5 mg PO BID [facility] PRN Reason: Protocol Last Admin: 06/22/17 17:55 Dose: 2.5 mg Aspirin (Aspirin Chewable) 81 mg PO DAILY [facility] Last Admin: 06/22/17 10:18 Dose: 81 mg Atorvastatin Calcium (Lipitor) 20 mg PO DAILY [facility] Last Admin: 06/22/17 10:13 Dose: 20 mg Diltiazem HCl (Cardizem Cd) 180 mg PO DAILY [facility] Last Admin: 06/22/17 10:17 Dose: Not Given Donepezil HCl (Aricept) 10 mg PO HS [facility] Last Admin: 06/21/17 22:34 Dose: 10 mg Ferrous Gluconate (Fergon) 324 mg PO TID [facility] Last Admin: 06/22/17 17:53 Dose: 324 mg Sodium Chloride (Sodium Chloride 0.9%) 1,000 mls @ 100 mls/hr IV .Q10H [facility] Meropenem 500 mg/ Sodium (Chloride) 50 mls @ 100 mls/hr IVPB Q12 [facility] PRN Reason: Protocol Stop: 07/01/17 19:55 Insulin Human Regular (Humulin R Med) 0 units SC ACHS [facility] PRN Reason: Protocol Last Admin: 06/22/17 21:55 Dose: Not Given Metoprolol Tartrate (Lopressor) 25 mg PO BID [facility] Last Admin: 06/22/17 17:55 Dose: Not Given Ondansetron HCl (Zofran Inj) 4 mg IVP Q4H PRN PRN Reason: Nausea/Vomiting Pantoprazole Sodium (Protonix Inj) 40 mg IVP DAILY [facility] Last Admin: 06/22/17 10:14 Dose: 40 mg Tramadol HCl (Ultram) 50 mg PO TID PRN PRN Reason: Pain, moderate (4-7) Last Admin: 06/22/17 08:19 Dose: 50 mg - Labs Labs: 06/22/17 17:08 06/22/17 17:08 PT 13.9 SECONDS (9.4-12.5) H 06/22/17 17:08 INR 1.21 (0.93-1.08) H 06/22/17 17:08 APTT 27.4 Seconds (25.1-36.5) 06/22/17 17:08 Attending/Attestation - Attestation I have personally seen and examined this patient.: Yes I have fully participated in the care of the patient.: Yes I have reviewed all pertinent clinical information, including history, physical exam and plan: Yes Notes (Text): 06/22/17 22:36 Imp:Sepsis Agree with documentation and orders placed. PE tudy was ordered,but deferred due to increased BUN and Creatinine. 06/22/17 22:40
[2017-06-23 00:20] LABS: VENOUS BLOOD GAS BASE EXCESS -6.6 mmol/L (0.0-2.0); VENOUS BLOOD GAS PO2 48 mm/Hg (30-55); VENOUS BLOOD PH 7.24 (7.32-7.43)
--- NOTE | 2017-06-23 01:23 | PCM.SEPTIC ---
<Nighat Flores - Last Filed: 06/23/17 01:21> Sepsis Progress Note - Reassessment Type Date of Evaluation: 06/23/17 Time of Evaluation: 01:21 Reassessment Type: Non-invasive reassessment - Non Invasive Reassessment Were the most recent vital sign reviewed: Yes Vital Sign (Latest): Temp Pulse Resp BP Pulse Ox 98.4 F 129 H 20 109/72 98 06/22/17 23:09 06/22/17 23:09 06/22/17 23:09 06/22/17 23:09 06/22/17 23:09 Cardiovascular: Yes: Tachycardia Respiratory: Yes: Normal Breath Sounds Capillary Refill: Normal (Less than 2 sec) Pulses: Normal Radial, Normal Dorsalis Pedis, Normal Posterior Tibialis Skin: Normal Color, Warm, Dry <Pinky Amador - Last Filed: 06/23/17 04:28> Sepsis Progress Note - Non Invasive Reassessment Vital Sign (Latest): Temp Pulse Resp BP Pulse Ox 98.2 F 64 18 107/55 L 100 06/23/17 02:00 06/23/17 02:00 06/23/17 02:00 06/23/17 02:00 06/23/17 02:00 Attending/Attestation - Attestation I have personally seen and examined this patient.: Yes I have fully participated in the care of the patient.: Yes I have reviewed all pertinent clinical information, including history, physical exam and plan: Yes Notes (Text): 06/23/17 04:26Agree with documentation.
--- NOTE | 2017-06-23 06:59 | CP.PCM.PN ---
Subjective - Date & Time of Evaluation Date of Evaluation: 06/22/17 Time of Evaluation: 20:00 - Subjective Subjective: Patient has very poor veins,needs an additioal iv access. Objective - Vital Signs/Intake and Output Vital Signs (last 24 hours): Temp Pulse Resp BP Pulse Ox 98.2 F 64 18 107/55 L 100 06/23/17 02:00 06/23/17 02:00 06/23/17 02:00 06/23/17 02:00 06/23/17 02:00 Intake and Output: 06/22/17 06/23/17 18:59 06:59 Intake Total 2400 600 Balance 2400 600 - Medications Medications: Current Medications Alprazolam (Xanax) 0.5 mg PO BID PRN; Protocol PRN Reason: Anxiety Last Admin: 06/23/17 00:24 Dose: 0.5 mg Apixaban (Eliquis) 2.5 mg PO BID [facility] PRN Reason: Protocol Last Admin: 06/22/17 17:55 Dose: 2.5 mg Aspirin (Aspirin Chewable) 81 mg PO DAILY [facility] Last Admin: 06/22/17 10:18 Dose: 81 mg Atorvastatin Calcium (Lipitor) 20 mg PO DAILY [facility] Last Admin: 06/22/17 10:13 Dose: 20 mg Diltiazem HCl (Cardizem Cd) 180 mg PO DAILY [facility] Last Admin: 06/22/17 10:17 Dose: Not Given Donepezil HCl (Aricept) 10 mg PO HS [facility] Last Admin: 06/23/17 00:24 Dose: 10 mg Ferrous Gluconate (Fergon) 324 mg PO TID [facility] Last Admin: 06/22/17 17:53 Dose: 324 mg Sodium Chloride (Sodium Chloride 0.9%) 1,000 mls @ 100 mls/hr IV .Q10H [facility] Meropenem 500 mg/ Sodium (Chloride) 50 mls @ 100 mls/hr IVPB Q12 [facility] PRN Reason: Protocol Stop: 07/01/17 19:55 Last Admin: 06/22/17 22:00 Dose: 100 mls/hr Insulin Human Regular (Humulin R Med) 0 units SC ACHS [facility] PRN Reason: Protocol Last Admin: 06/22/17 21:55 Dose: Not Given Metoprolol Tartrate (Lopressor) 25 mg PO BID [facility] Last Admin: 06/22/17 17:55 Dose: Not Given Ondansetron HCl (Zofran Inj) 4 mg IVP Q4H PRN PRN Reason: Nausea/Vomiting Last Admin: 06/23/17 04:18 Dose: 4 mg Pantoprazole Sodium (Protonix Inj) 40 mg IVP DAILY [facility] Last Admin: 06/22/17 10:14 Dose: 40 mg Tramadol HCl (Ultram) 50 mg PO TID PRN PRN Reason: Pain, moderate (4-7) Last Admin: 06/23/17 01:40 Dose: 50 mg - Labs Labs: 06/22/17 17:08 06/22/17 17:08 PT 13.9 SECONDS (9.4-12.5) H 06/22/17 17:08 INR 1.21 (0.93-1.08) H 06/22/17 17:08 APTT 27.4 Seconds (25.1-36.5) 06/22/17 17:08 - Constitutional Appears: No Acute Distress, Chronically Ill Assessment and Plan - Assessment and Plan (Free Text) Assessment: Poor venous access Plan: hep lock inserted in the L wrist region. # 24 angiocath used.
[2017-06-23 07:33] LABS: HEMOGLOBIN 10.2 g/dL (12.0-16.0); MEAN CELL VOLUME 89.2 fl (80.0-105.0); MEAN CORPUSCULAR HEMOGLOBIN 27.6 pg (25.0-35.0); MEAN CORPUSCULAR HGB CONC 30.9 g/dl (31.0-37.0); MEAN PLATELET VOLUME 9.6 fl (7.0-11.0); RBC 3.7 10^6/uL (3.5-6.1); RED CELL DISTRIBUTION WIDTH 16.3 % (11.5-14.5); WHITE BLOOD COUNT 12.8 10^3/ul (4.5-11.0)
--- NOTE | 2017-06-23 08:29 | CON ---
DATE: 06/22/2017 LOCATION: The patient seen earlier this morning in 567, bed 2. CHIEF COMPLAINT: Weakness, abdominal pain and left leg pain times several days. HISTORY OF PRESENT ILLNESS: This is an 81-year-old female with history of atrial fibrillation, chronic obstructive lung disease, coronary artery disease, congestive heart failure, renal cell cancer and nephrectomy. Patient also had a lung cell cancer, had lobectomy and history of anxiety and syncope, dementia and congestive heart failure, who admitted with left-sided abdominal pain and left-sided leg pain. Patient denied any fevers, any chills. She was found to have a leukocytosis and Infectious Disease consultation requested. Patient is a poor historian and there has been questionable dysuria, frequency and the abdominal pain is dull, it is more in her left side. No chest pain. Has mild shortness of breath. No cough. No hemoptysis. No headaches or blurred vision. PAST MEDICAL HISTORY: Significant for atrial fibrillation, hypertension, chronic obstructive lung disease, congestive heart failure, coronary artery disease, dementia and syncope, anxiety, lung cancer and renal cancer. PAST SURGICAL HISTORY: Significant for right nephrectomy. Patient also had a lobectomy, hysterectomy, pacemaker placement and had . ALLERGIES: PATIENT HAS NO KNOWN ALLERGIES TO ANY ANTIBIOTICS. MEDICATIONS AT HOME: Reviewed. Patient had a recent hospitalization. PHYSICAL EXAMINATION: VITAL SIGNS: Temperature is 98, blood pressure is 110/78, respiratory rate of 20, heart rate of 100. HEENT: Unremarkable. NECK: Supple. LUNGS: Have decreased breath sounds. HEART: Normal S1 and S2. ABDOMEN: Soft, nontender. LABORATORY EXAMINATION: Reveals a white count of 14,500, hemoglobin of 12, platelets of 285 and 91% granulocytosis. Coagulation is noted. Patient has an INR of 1.45 and D-dimer is reported to be elevated at 431. ABGs are noted. Patient has creatinine of 2.4; on last admission, patient's creatinine was 1.8 approximately a month ago on 05/28/2017. No urinalysis is . Microbiology is pending. Patient had a chest x-ray, which is negative. CAT scan of the abdomen and pelvis, which is negative. Had an ultrasound of lower extremity, the results are pending. Consultation by Dr. Courtney is reviewed and appreciated. Consultation by Dr. Lemon is appreciated. Dr. Marco Farris's history and physical examination is reviewed. ASSESSMENT AND PLAN: This is an 81-year-old female with atrial fibrillation, hypertension, coronary artery disease, congestive heart failure, dementia, anxiety, lung cancer, renal cell cancer with severe sepsis, gastrointestinal versus genitourinary as a source with acute kidney injury. We will treat the patient with meropenem. Pending urinalysis, urine culture and blood culture results. We will follow closely with you. Jenaro Farias MD
[2017-06-23] MEDS: Insulin Reg-MEDIUM-Coverage SC SCH ×3 (08:35→16:55)
[2017-06-23 09:13] LABS: ALB/GLOB RATIO 0.9 (1.1-1.8); CALCIUM 8.4 mg/dL (8.4-10.5)
[2017-06-23] MEDS: diltiaZEM 180 mg/24 Hours CD Cap PO SCH (10:07)
[2017-06-23] MEDS: Meropenem 500 MG in Sodium Chloride 0.9% 50 ML IVPB SCH ×2 (10:09→21:44)
--- NOTE | 2017-06-23 10:18 | PN ---
DATE: SUBJECTIVE: I saw her resting comfortably in bed. She is asking for better pain medications. She feels like she is in pain. The left hip and pelvis x-rays were normal. We are doing an ultrasound of the left leg, it is pending. She also has a white count. PHYSICAL EXAMINATION: VITAL SIGNS: She has 98.2 temp, 64 pulse, 107/55 blood pressure, 18 respiratory rate and 100% O2 sat on nasal cannula. HEENT: Head is atraumatic, normocephalic. HEART: Regular rate. LUNGS: Decreased breath sounds, but clear. ABDOMEN: Soft. EXTREMITIES: No edema. She could move them. She is in a little bit of pain. MEDICATIONS: She is on Aricept, aspirin, Cardizem, Eliquis, Fergon, Lipitor, Lopressor, Merrem IV, pantoprazole, IV fluids, Toradol, Ultram, Xanax and Zofran. LABORATORY DATA: She has a 142 sodium; potassium is 4.6, better; BUN is 58; creatinine 2.4; GFR is 19; sugar is 102; calcium is 9.4; total bili is 0.3; AST is 30; ALT is 28; alk phos is 87. White count is still hovering at 12.8, hemoglobin 10.2, hematocrit 33, platelets 199. I think I am going to stop Toradol and may be stop the tramadol and put her on some morphine for the pain because of her kidney function. I will discuss that with Renal. I am waiting for Physical Therapy to tell me if she needs any rehabilitation, Transitional Care Unit, subacute rehabilitation. We will continue with the IV antibiotics as per Infectious Disease and we will get physical therapy and get out of bed to chair. Sarah Baker who has abdominal pain, left hip pain, change in mentation, high potassium, dehydration, nausea, vomiting, elevated white count, on IV antibiotics by Infectious Disease. Marco Farris DO
[2017-06-23] MEDS ORDERED: diltiaZEM 180 mg/24 Hours CD Cap PO SCH (10:31)
--- NOTE | 2017-06-23 11:15 | US ---
HISTORY: Leg pain and swelling. Evaluate for DVT PHYSICIAN(S): Oswald Lee MD. TECHNIQUE: Duplex sonography and color-flow Doppler with graded compression were used to evaluate the deep venous systems of both lower extremities. FINDINGS: The visualized deep venous systems of both lower extremities are sonographically normal and compressible. Normal wave forms and augmentation are seen. There is no sonographic evidence for deep venous thrombosis in the visualized segments of both lower extremities. IMPRESSION: No sonographic evidence for deep venous thrombosis in the visualized segments of both lower extremities.
[2017-06-23] MEDS ORDERED: Sodium Chloride 0.9% 1,000 ML IV SCH (11:30)
[2017-06-23] MEDS: Morphine 4 mg/ml ISec IVP PRN ×2 (13:45→20:00)
--- NOTE | 2017-06-23 15:29 | CP.PCM.PN ---
Subjective - Date & Time of Evaluation Date of Evaluation: 06/23/17 Time of Evaluation: 15:26 - Subjective Subjective: Nephrology Consultation Note: Assessment: stable acute gastroenteritis and pancreatitis PATRICIA likely pre-renal state as evident by GI fluid loss, hemoconcentration with associated hyperkalemia and acidosis Chronic Kidney Disease Stage 3 (N18.3) with 322 mg proteinuria possibly due to HTN, age related decline, and s/p Rt nephrectomy due to hx of RCC Hypertension controlled (I12.9) Vit D insufficiency with secondary hyperparathyroidism, anemia hx of severe pulmonary HTN (RVSP 81 mm Hg) and moderate to severe LVH hx of dementia bradycardia s/p PPM, A fib Plan no acute need of renal replacement therapy at this time no ACEI or ARB due to PATRICIA and hyperkalemia. maintain hemodynamic stable. pt getting meds to control A fib rate anemia management: PRBC as needed, once orally accepting, can start on iron 324 mg TID and MVI. dose of aransep 60 mcg 05/21/17. further dosing if Hb <10 hold diuretics. will continue with IVF as NS @ 50 ml/hr for another day. Dose meds/antibiotics for reduced GFR. Avoid fleets enema/magnesium based laxatives. Avoid nephrotoxins/NSAIDs/IV iodinated contrast (unless emergent) Further work up as per primary team Thanks for allowing me to participate in care of your patient. will follow with you. Please call if any Qs. d/w team Dr Jt Lemon Office: [phone] Reason for consult: CKD and PATRICIA HPI: Pt is a 81 y/o F with hx of hypertension (20 years) , renal cell cancer s/ p unilateral total nephrectomy, CKD stage 3 with baseline cr 1.4-1.7 since 2017 but intermittent and frequent episodes of PATRICIA, chronic anemia, A fib, bradycardia s/p PPM admitted with pain abdomen and loose stool with vomitting for last 1-2 days, also associated with decreased oral intake. initial abdomen imaging unremarkable but pt with elevated lipase and PATRICIA. renal consult for further management of PATRICIA. pt feels sick. improved GI symptoms ROS: denies CP/SOB. improved nausea/vomiting/pain abdomen denies urine complaints. all other negative except as in HPI. feels better Physical Examination: General Appearance: Comfortable, in no acute respiratory distress, co-operative Vitals reviewed and noted as below Head; Atraumatic, normocephalic ENT: no ulcers no thrush. Tongue is midline. Oropharynx: no rash or ulcers. EYES: Pupils are equal, round and reactive to light accommodation. Eye muscles and extraocular movement intact. Sclera is anicteric. Neck; supple no lymphadenopathy, no thyromegaly or bruit Lungs: Normal respiratory rate/effort. Breath sounds bilateral equal and clear Heart: Increased rate. s1s2 normal. No rub or gallop. has PPM and A fib Extremities: no edema. No varicose veins Neurological: Patient is alert, awake and oriented x3 No other focal deficit. Strength bilateral appropriate and equal Skin: Warm and dry. Normal turgor. No rash. Palpitation: Normal elasticity for age Abdomen: Abdomen is soft. Bowel sounds +. There is no abdominal tenderness, no guarding/rigidity or organomegaly Psych: limited insight and has normal affect/mood MSK: no joint tenderness or swelling. Digits and nails normal, no deformity : kidney or bladder not palpable Labs/imaging/EKG reviewed. Past medical history, past surgical history,social history, allergy reviewed and noted as below FAMILy HX; no hx of CKD. non contributory work up: CT 2018: s/p Rt nephrectomy, left kidney unremarkable Vit D 35 PTH 70 TSAT 10% Ferritin 30 Objective - Vital Signs/Intake and Output Vital Signs (last 24 hours): Temp Pulse Resp BP Pulse Ox 98.0 F 109 H 20 95/65 L 94 L 06/23/17 06:00 06/23/17 10:05 06/23/17 06:00 06/23/17 06:00 06/23/17 06:00 Intake and Output: 06/23/17 06/23/17 06:59 18:59 Intake Total 600 900 Balance 600 900 - Medications Medications: Current Medications Alprazolam (Xanax) 0.5 mg PO BID PRN; Protocol PRN Reason: Anxiety Last Admin: 06/23/17 00:24 Dose: 0.5 mg Apixaban (Eliquis) 2.5 mg PO BID [facility] PRN Reason: Protocol Last Admin: 06/23/17 10:06 Dose: 2.5 mg Aspirin (Aspirin Chewable) 81 mg PO DAILY [facility] Last Admin: 06/23/17 10:08 Dose: 81 mg Atorvastatin Calcium (Lipitor) 20 mg PO DAILY [facility] Last Admin: 06/23/17 10:06 Dose: 20 mg Diltiazem HCl (Cardizem Cd) 180 mg PO DAILY [facility] Donepezil HCl (Aricept) 10 mg PO HS [facility] Last Admin: 06/23/17 00:24 Dose: 10 mg Ferrous Gluconate (Fergon) 324 mg PO TID [facility] Last Admin: 06/23/17 10:06 Dose: 324 mg Meropenem 500 mg/ Sodium (Chloride) 50 mls @ 100 mls/hr IVPB Q12 [facility] PRN Reason: Protocol Stop: 07/01/17 19:55 Last Admin: 06/23/17 10:09 Dose: 100 mls/hr Sodium Chloride (Sodium Chloride 0.9%) 1,000 mls @ 50 mls/hr IV .Q20H [facility] Stop: 06/24/17 11:31 Last Admin: 06/23/17 13:36 Dose: 50 mls/hr Insulin Human Regular (Humulin R Med) 0 units SC ACHS [facility] PRN Reason: Protocol Last Admin: 06/23/17 08:35 Dose: Not Given Metoprolol Tartrate (Lopressor) 25 mg PO BID [facility] Last Admin: 06/23/17 10:05 Dose: 25 mg Morphine Sulfate (Morphine) 1 mg IVP Q4H PRN PRN Reason: Pain, moderate (4-7) Last Admin: 06/23/17 13:45 Dose: 1 mg Ondansetron HCl (Zofran Inj) 4 mg IVP Q4H PRN PRN Reason: Nausea/Vomiting Last Admin: 06/23/17 04:18 Dose: 4 mg Pantoprazole Sodium (Protonix Ec Tab) 40 mg PO ACB [facility] - Labs Labs: 06/23/17 07:15 06/23/17 07:15 PT 13.9 SECONDS (9.4-12.5) H 06/22/17 17:08 INR 1.21 (0.93-1.08) H 06/22/17 17:08 APTT 27.4 Seconds (25.1-36.5) 06/22/17 17:08
--- NOTE | 2017-06-23 22:29 | CARD ---
APPROVED REPORT EKG Measurement Heart [id number] MD [id number] <Conclusion> Atrial flutter with variable AV block Right bundle branch block Left anterior fascicular block Bifascicular block Left ventricular hypertrophy with repolarization abnormality Cannot rule out Septal infarct, age undetermined Abnormal ECG
--- NOTE | 2017-06-23 23:30 | PN ---
DATE: 06/23/2017 SUBJECTIVE: The patient is seen early this morning in room 567, bed 2. No fevers and no chills. PHYSICAL EXAMINATION: VITAL SIGNS: Temperature is 98, blood pressure is 116/60, respiratory rate of 20, heart rate of 109. HEENT: Examination of HEENT is unremarkable. NECK: Supple. LUNGS: Have decreased breath sounds. HEART: Normal S1 and S2. ABDOMEN: Soft, nontender. LABORATORY DATA: Laboratory examination reveals a white count of 12,800, hemoglobin of 10, platelets of 199. Coagulation is noted. Chemistries reveals BUN of 44, creatinine of 1.4. Urinalysis is noted. Microbiology reveals the blood cultures are negative. ASSESSMENT AND PLAN: An 81-year-old female with a history of atrial fibrillation, chronic obstructive lung disease, coronary artery disease, congestive heart failure, renal cell cancer, nephrectomy, lung cancer, lobectomy, history of anxiety and syncope, dementia, was admitted with abdominal pain, leg pain and with severe sepsis with gastrointestinal versus genitourinary is the source with acute kidney injury, on meropenem. Thus far, the blood cultures are negative. Awaiting for urine cultures are the patient's CAT scan of the abdomen is noted. We will complete a short course of antibiotics. Currently on meropenem, day #2. The patient also has a lower extremity ultrasound, which is noted to be negative. Jenaro Farias MD
[2017-06-24] MEDS: Morphine 4 mg/ml ISec IVP PRN (04:27)
[2017-06-24 06:55] LABS: MEAN CELL VOLUME 90.9 fl (80.0-105.0); MEAN CORPUSCULAR HEMOGLOBIN 27.5 pg (25.0-35.0); MEAN CORPUSCULAR HGB CONC 30.2 g/dl (31.0-37.0); MEAN PLATELET VOLUME 9.6 fl (7.0-11.0); RBC 3.64 10^6/uL (3.5-6.1); RED CELL DISTRIBUTION WIDTH 16.4 % (11.5-14.5)
[2017-06-24] MEDS ORDERED: Pantoprazole 40 mg EC Tab PO SCH (07:30)
[2017-06-24 07:32] LABS: ALB/GLOB RATIO 0.9 (1.1-1.8); ALBUMIN 2.9 g/dL (3.0-4.8); CALCIUM 8.6 mg/dL (8.4-10.5)
[2017-06-24] MEDS ORDERED: Multivitamin Vitamin B Complex (Nephro-Vite) Tab PO SCH (08:00)
[2017-06-24 08:05] VITALS: RESP 18
[2017-06-24] MEDS: Insulin Reg-MEDIUM-Coverage SC SCH ×2 (09:01→11:30)
[2017-06-24] MEDS: Meropenem 500 MG in Sodium Chloride 0.9% 50 ML IVPB SCH (10:36)
[2017-06-24 10:44] VITALS: PULSE 66
--- NOTE | 2017-06-24 11:12 | CP.PCM.PN ---
Subjective - Date & Time of Evaluation Date of Evaluation: 06/24/17 Time of Evaluation: 11:10 - Subjective Subjective: Nephrology Consultation Note: Assessment: stable acute gastroenteritis and pancreatitis PATRICIA likely pre-renal state as evident by GI fluid loss, hemoconcentration with associated hyperkalemia and acidosis Chronic Kidney Disease Stage 3 (N18.3) with 322 mg proteinuria possibly due to HTN, age related decline, and s/p Rt nephrectomy due to hx of RCC Hypertension controlled (I12.9) Vit D insufficiency with secondary hyperparathyroidism, anemia hx of severe pulmonary HTN (RVSP 81 mm Hg) and moderate to severe LVH hx of dementia bradycardia s/p PPM, A fib Plan no acute need of renal replacement therapy at this time no ACEI or ARB due to recurrent AKIs and hyperkalemic tendency. maintain hemodynamic stable. pt getting meds to control A fib rate anemia management: PRBC as needed, continue with iron 324 mg TID and MVI. dose of aransep 60 mcg 05/21/17. further dosing if Hb <10 hold diuretics. d/c IVF today Dose meds/antibiotics for reduced GFR. Avoid fleets enema/magnesium based laxatives. Avoid nephrotoxins/NSAIDs/IV iodinated contrast (unless emergent) Further work up as per primary team pt planned for d/c to TCU, stable for d/c from renal perspective when planned Thanks for allowing me to participate in care of your patient. will follow with you. Please call if any Qs. d/w team Dr Jt Lemon Office: [phone] Reason for consult: CKD and PATRICIA HPI: Pt is a 81 y/o F with hx of hypertension (20 years) , renal cell cancer s/ p unilateral total nephrectomy, CKD stage 3 with baseline cr 1.4-1.7 since 2017 but intermittent and frequent episodes of PATRICIA, chronic anemia, A fib, bradycardia s/p PPM admitted with pain abdomen and loose stool with vomitting for last 1-2 days, also associated with decreased oral intake. initial abdomen imaging unremarkable but pt with elevated lipase and PATRICIA. renal consult for further management of PATRICIA. pt feels sick. improved GI symptoms ROS: denies CP/SOB. improved nausea/vomiting/pain abdomen denies urine complaints. all other negative except as in HPI. feels better Physical Examination: General Appearance: Comfortable, in no acute respiratory distress, co-operative Vitals reviewed and noted as below Head; Atraumatic, normocephalic ENT: no ulcers no thrush. Tongue is midline. Oropharynx: no rash or ulcers. EYES: Pupils are equal, round and reactive to light accommodation. Eye muscles and extraocular movement intact. Sclera is anicteric. Neck; supple no lymphadenopathy, no thyromegaly or bruit Lungs: Normal respiratory rate/effort. Breath sounds bilateral equal and clear Heart: Increased rate. s1s2 normal. No rub or gallop. has PPM and A fib Extremities: no edema. No varicose veins Neurological: Patient is alert, awake and oriented x3 No other focal deficit. Strength bilateral appropriate and equal Skin: Warm and dry. Normal turgor. No rash. Palpitation: Normal elasticity for age Abdomen: Abdomen is soft. Bowel sounds +. There is no abdominal tenderness, no guarding/rigidity or organomegaly Psych: limited insight and has normal affect/mood MSK: no joint tenderness or swelling. Digits and nails normal, no deformity : kidney or bladder not palpable Labs/imaging/EKG reviewed. Past medical history, past surgical history,social history, allergy reviewed and noted as below FAMILy HX; no hx of CKD. non contributory work up: CT 2018: s/p Rt nephrectomy, left kidney unremarkable Vit D 35 PTH 70 TSAT 10% Ferritin 30 Objective - Vital Signs/Intake and Output Vital Signs (last 24 hours): Temp Pulse Resp BP Pulse Ox 98.4 F 66 18 119/64 100 06/24/17 06:00 06/24/17 10:34 06/24/17 06:00 06/24/17 10:34 06/24/17 06:00 Intake and Output: 06/24/17 06/24/17 06:59 18:59 Intake Total 420 Balance 420 - Medications Medications: Current Medications Alprazolam (Xanax) 0.5 mg PO BID PRN; Protocol PRN Reason: Anxiety Last Admin: 06/23/17 21:44 Dose: 0.5 mg Apixaban (Eliquis) 2.5 mg PO BID [facility] PRN Reason: Protocol Last Admin: 06/24/17 10:34 Dose: 2.5 mg Aspirin (Aspirin Chewable) 81 mg PO DAILY [facility] Last Admin: 06/24/17 10:34 Dose: 81 mg Atorvastatin Calcium (Lipitor) 20 mg PO DAILY [facility] Last Admin: 06/24/17 10:34 Dose: 20 mg Diltiazem HCl (Cardizem Cd) 180 mg PO DAILY [facility] Last Admin: 06/24/17 10:34 Dose: 180 mg Donepezil HCl (Aricept) 10 mg PO HS [facility] Last Admin: 06/23/17 21:44 Dose: 10 mg Ferrous Gluconate (Fergon) 324 mg PO TID [facility] Last Admin: 06/24/17 10:34 Dose: 324 mg Meropenem 500 mg/ Sodium (Chloride) 50 mls @ 100 mls/hr IVPB Q12 [facility] PRN Reason: Protocol Stop: 07/01/17 19:55 Last Admin: 06/24/17 10:36 Dose: 100 mls/hr Sodium Chloride (Sodium Chloride 0.9%) 1,000 mls @ 50 mls/hr IV .Q20H [facility] Stop: 06/24/17 11:31 Last Admin: 06/23/17 13:36 Dose: 50 mls/hr Insulin Human Regular (Humulin R Med) 0 units SC ACHS [facility] PRN Reason: Protocol Last Admin: 06/24/17 09:01 Dose: Not Given Metoprolol Tartrate (Lopressor) 25 mg PO BID [facility] Last Admin: 06/24/17 10:34 Dose: 25 mg Morphine Sulfate (Morphine) 1 mg IVP Q4H PRN PRN Reason: Pain, moderate (4-7) Last Admin: 06/24/17 04:27 Dose: 1 mg Ondansetron HCl (Zofran Inj) 4 mg IVP Q4H PRN PRN Reason: Nausea/Vomiting Last Admin: 06/23/17 04:18 Dose: 4 mg Pantoprazole Sodium (Protonix Ec Tab) 40 mg PO ACB [facility] Last Admin: 06/24/17 08:54 Dose: 40 mg Vitamin B Complex/Vit C/Folic Acid (Nephro-Haider) 1 tab PO 0800 [facility] Last Admin: 06/24/17 08:53 Dose: 1 tab - Labs Labs: 06/24/17 06:20 06/24/17 06:20 PT 13.9 SECONDS (9.4-12.5) H 06/22/17 17:08 INR 1.21 (0.93-1.08) H 06/22/17 17:08 APTT 27.4 Seconds (25.1-36.5) 06/22/17 17:08
--- NOTE | 2017-06-24 13:24 | CON ---
DATE: 06/24/2017 CARDIOLOGY CONSULTATION HISTORY OF PRESENT ILLNESS: The patient is an 81-year-old woman with one of multiple admissions, this one for abdominal pain. Denies chest pain. PAST MEDICAL HISTORY: Includes chronic atrial fibrillation/flutter, status post pacemaker placement for tachybrady, history of renal insufficiency, history of systemic hypertension, hypercholesterolemia as well as pulmonary hypertension. She denies chest pain, denies shortness of breath. REVIEW OF SYSTEMS: A 14-point review of systems was reviewed in detail. No cardiac symptoms are noted. The patient is currently comfortable. PHYSICAL EXAMINATION VITAL SIGNS: Blood pressure is 119/64, the heart rate is in the 60s. NECK: Negative JVD. LUNGS: Without rales. HEART: Reveals S1 and S2. EXTREMITIES: Without edema. LABORATORY DATA: Hemoglobin is 10. Chemistries: BUN and creatinine 26 and 1.6. IMPRESSION: 1. Resolution of abdominal pain. 2. Chronic atrial fibrillation/flutter. 3. Renal insufficiency, which is stable. 4. Systemic hypertension. 5. Hypercholesterolemia. 6. Pulmonary hypertension. 7. History of pacemaker placement. PLAN: Given these findings, the patient's cardiac status is stable. From a cardiac perspective, the patient can be transferred to the TCU. Oswald Fonseca MD
[2017-06-24 15:04] VITALS: BP 106/56; TEMP 98.5; O2SAT 96
--- NOTE | 2017-06-24 23:43 | PN ---
DATE: 06/24/2017 SUBJECTIVE: Patient is in bed, in no acute distress, nontoxic, no fevers. Was seen early this morning in room 567, bed 2. PHYSICAL EXAMINATION: VITAL SIGNS: Temperature is 97, blood pressure is 106/50, respiratory rate of 18. HEENT: Unremarkable. NECK: Supple. LUNGS: Have decreased breath sounds. HEART: Normal S1, S2. ABDOMEN: Soft, nontender. No organomegaly, no rebound or guarding. No masses. LABORATORY EXAMINATION: Reveals the patient's white count of 10,000, hemoglobin of 10, platelets of 208. Coagulation is noted. Chemistries reveal a BUN of 26, creatinine of 1.6. Urinalysis is noted and 5 to 10 wbc's. Microbiology reveals the blood cultures have no growth. ASSESSMENT AND PLAN: This is an 81-year-old female with a history of atrial fibrillation; chronic obstructive lung disease; coronary disease; congestive heart failure; renal cell cancer, nephrectomy; lung cancer, lobectomy; history of anxiety; syncope.; dementia; who is admitted with abdominal pain, leg pain which is resolved, and severe sepsis, gastrointestinal versus with the source with acute kidney injury, on meropenem, day number 3, and thus far all the cultures and the blood cultures are negative. Urine cultures were never sent. Leukocytosis resolved. Urinalysis is unremarkable and patient had a CAT scan of the abdomen which was negative and a chest x-ray which was negative and today, patient is on day number 3 of meropenem with complete 5 to 7 days' empiric therapy. No obvious source for her severe sepsis. She has responded to the meropenem. Jenaro Farias MD
--- NOTE | 2017-06-25 08:06 | DS ---
I saw her resting comfortably in bed. She is doing fairly well. The plan is for her to go to TCU today, so she will continue IV medications and physical therapy. She is alert. X-rays of the left hip are fine. PHYSICAL EXAMINATION: VITAL SIGNS: She has a 98.4 temp, 86 pulse, 106/67 blood pressure, and 18 respiratory rate, 100% O2 sat on 2 liters of nasal cannula. HEENT: Head is atraumatic and normocephalic. HEART: Regular rate. LUNGS: Clear to auscultation, but decreased breath sounds. ABDOMEN: Soft. EXTREMITIES: No edema. MEDICATIONS: She is on Aricept, aspirin, Cardizem, Eliquis, Fergon, insulin, Lipitor, Lopressor, Merrem IV - she will TCU, morphine, Nephro-Haider, pantoprazole, IV fluids, Xanax and Zofran. LABORATORY DATA: She has a 10 white count, 10 hemoglobin, 32.1 hematocrit, 208 platelets. She has a 144 sodium, potassium 4.7; BUN 26 and creatinine 1.6, much better than when she came in. Kidney function is definitely improving, 31 GFR, 90 blood sugar, 8.6 calcium. AST is 23, ALT is 21, alkaline phosphatase 66. Urine is with small. She has been seen by Infectious Disease, Renal. She had numerous house doctor evaluations. She has Afib, history of COPD, chronic heart disease, heart failure, nephrectomy, lung cancer, lobectomy. She came in with severe sepsis, gastrointestinal versus genitourinary, she is on Merrem. Plan is to get her back to home, but go to TCU first and she is here for change in mentation, dehydration, nausea or vomiting. Marco Farris DO [facility]
== END 2017-06-24 15:05 | DRG 872 ==
LOC: ED 14:59 → ERH 18:33 → 5RNO 20:56
PROVIDERS: ADMIT Family Medicine; ATTEND Family Medicine
DX: A41.9 Sepsis, unspecified organism (principal); I48.92 Unspecified atrial flutter; E87.2 Acidosis; I13.0 Hypertensive heart and chronic kidney disease with heart failure and stage 1 through stage 4 chronic kidney disease, or unspecified chronic kidney disease; N17.9 Acute kidney failure, unspecified; N25.81 Secondary hyperparathyroidism of renal origin; E86.0 Dehydration; I48.2 Chronic atrial fibrillation; J44.9 Chronic obstructive pulmonary disease, unspecified; I50.9 Heart failure, unspecified; N18.3 Chronic kidney disease, stage 3 (moderate); K52.9 Noninfective gastroenteritis and colitis, unspecified; M19.90 Unspecified osteoarthritis, unspecified site; F41.9 Anxiety disorder, unspecified; F03.90 Unspecified dementia, unspecified severity, without behavioral disturbance, psychotic disturbance, mood disturbance, and anxiety; M25.552 Pain in left hip; E87.5 Hyperkalemia; I25.10 Atherosclerotic heart disease of native coronary artery without angina pectoris; I27.20 Pulmonary hypertension, unspecified; E78.00 Pure hypercholesterolemia, unspecified; E55.9 Vitamin D deficiency, unspecified; D64.9 Anemia, unspecified; Z85.118 Personal history of other malignant neoplasm of bronchus and lung; Z87.891 Personal history of nicotine dependence; Z79.02 Long term (current) use of antithrombotics/antiplatelets; Z90.5 Acquired absence of kidney; Z95.0 Presence of cardiac pacemaker; Z85.528 Personal history of other malignant neoplasm of kidney

== ENCOUNTER 2017-06-24 15:23 | Inpatient (IN) | payer OTHER, MEDICARE ==
[2017-06-24 16:39] VITALS: BMI 21.0
[2017-06-24] MEDS ORDERED: Pneumococcal 23-Valent Vaccine IM ONE (16:39)
[2017-06-24] MEDS ORDERED: Meropenem 500 MG in Sodium Chloride 0.9% 50 ML IVPB SCH (18:00)
[2017-06-24] MEDS: Insulin Reg-LOW-Coverage SC SCH ×2 (18:00→22:17)
[2017-06-25] MEDS: Meropenem 500 MG in Sodium Chloride 0.9% 50 ML IVPB SCH ×3 (05:24→21:57)
[2017-06-25] MEDS: Pantoprazole 40 mg EC Tab PO SCH (05:25)
[2017-06-25] MEDS: Insulin Reg-LOW-Coverage SC SCH ×4 (06:51→22:01)
[2017-06-25 07:31] LABS: BASO # 0.02 K/mm3 (0.0-2.0); BASO % 0.3 % (0.0-3.0); EOS # 0.2 (0.0-0.7); EOS % 2.6 % (1.5-5.0); GRAN # 5.96 (1.4-6.5); GRAN % 76.5 % (50.0-68.0); HEMOGLOBIN 9.5 g/dL (12.0-16.0); LYMPH # 1.1 (1.2-3.4); LYMPH % 13.5 % (22.0-35.0); MEAN CELL VOLUME 88.9 fl (80.0-105.0); MEAN CORPUSCULAR HEMOGLOBIN 27.7 pg (25.0-35.0); MEAN CORPUSCULAR HGB CONC 31.1 g/dl (31.0-37.0); MEAN PLATELET VOLUME 10.1 fl (7.0-11.0); MONO # 0.6 (0.1-0.6); MONO % 7.1 % (1.0-6.0); RBC 3.43 10^6/uL (3.5-6.1); RED CELL DISTRIBUTION WIDTH 15.5 % (11.5-14.5); WHITE BLOOD COUNT 7.8 10^3/ul (4.5-11.0)
[2017-06-25 07:54] LABS: CALCIUM 8.7 mg/dL (8.4-10.5)
[2017-06-25] MEDS: Multivitamin Vitamin B Complex (Nephro-Vite) Tab PO SCH (07:59)
[2017-06-25] MEDS ORDERED: Darbepoetin Alfa 40 mcg/ml Inj SC ONE (09:28)
[2017-06-25] MEDS: diltiaZEM 180 mg/24 Hours CD Cap PO SCH (10:05)
--- NOTE | 2017-06-25 10:49 | CP.PCM.CON ---
History of Present Illness - History of Present Illness History of Present Illness: Nephrology Consultation Note: Assessment: stable acute gastroenteritis and pancreatitis: improved PATRICIA likely pre-renal state as evident by GI fluid loss, hemoconcentration with associated hyperkalemia and acidosis: improved Chronic Kidney Disease Stage 3 (N18.3) with 322 mg proteinuria possibly due to HTN, age related decline, and s/p Rt nephrectomy due to hx of RCC Hypertension controlled (I12.9) Vit D insufficiency with secondary hyperparathyroidism, anemia hx of severe pulmonary HTN (RVSP 81 mm Hg) and moderate to severe LVH hx of dementia bradycardia s/p PPM, A fib Plan no acute need of renal replacement therapy at this time no ACEI or ARB due to recurrent AKIs and hyperkalemic tendency. maintain hemodynamic stable. Low K Diet pt getting meds to control A fib rate anemia management: PRBC as needed, continue with iron 324 mg TID and MVI. dose of aransep 60 mcg 05/21/17. Another dose aransep 40 mcg 06/25/17 added sodium bicarb 650 mg bid and Oscal-D 1 tab bid once oral intake better in next few days then can resume home dose of lasix 20 mg Dose meds/antibiotics for reduced GFR. Avoid fleets enema/magnesium based laxatives. Avoid nephrotoxins/NSAIDs/IV iodinated contrast (unless emergent) Further work up as per primary team Thanks for allowing me to participate in care of your patient. will follow with you. Please call if any Qs. Dr Jt Lemon Office: [phone] CC: back pain Reason for consult: CKD and PATRICIA HPI: Pt is a 81 y/o F with hx of hypertension (20 years) , renal cell cancer s/ p unilateral total nephrectomy, CKD stage 3 with baseline cr 1.4-1.7 since 2017 but intermittent and frequent episodes of PATRICIA, chronic anemia, A fib, bradycardia s/p PPM initially admitted with elevated lipase, gastroenteritis and PATRICIA. Renal function improved with IVF, pt d/c to rehab and renal consult for further management of PATRICIA/CKD. pt feels better. improved GI symptoms. reports back pain yesterday which is also better now ROS: denies CP/SOB. improved nausea/vomiting/pain abdomen denies urine complaints. all other negative except as in HPI. feels better Physical Examination: General Appearance: Comfortable, in no acute respiratory distress, co-operative Vitals reviewed and noted as below Head; Atraumatic, normocephalic ENT: no ulcers no thrush. Tongue is midline. Oropharynx: no rash or ulcers. EYES: Pupils are equal, round and reactive to light accommodation. Eye muscles and extraocular movement intact. Sclera is anicteric. Neck; supple no lymphadenopathy, no thyromegaly or bruit Lungs: Normal respiratory rate/effort. Breath sounds bilateral equal and clear Heart: Increased rate. s1s2 normal. No rub or gallop. has PPM and A fib Extremities: no edema. No varicose veins Neurological: Patient is alert, awake and oriented x3 No other focal deficit. Strength bilateral appropriate and equal Skin: Warm and dry. Normal turgor. No rash. Palpitation: Normal elasticity for age Abdomen: Abdomen is soft. Bowel sounds +. There is no abdominal tenderness, no guarding/rigidity or organomegaly Psych: limited insight and has normal affect/mood MSK: no joint tenderness or swelling. Digits and nails normal, no deformity : kidney or bladder not palpable Labs/imaging/EKG reviewed. Past medical history, past surgical history,social history, allergy reviewed and noted as below FAMILy HX; no hx of CKD. non contributory work up: CT 2018: s/p Rt nephrectomy, left kidney unremarkable Vit D 35 PTH 70 TSAT 10% Ferritin 30 Past Patient History - Infectious Disease Hx of Infectious Diseases: None - Tetanus Immunizations Tetanus Immunization: >10 years Ago - Past Medical History & Family History Past Medical History?: Yes - Past Social History Smoking Status: Former Smoker - CARDIAC Hx Congestive Heart Failure: Yes Hx Hypertension: Yes - PULMONARY Hx Chronic Obstructive Pulmonary Disease (COPD): Yes - NEUROLOGICAL Hx Neurological Disorder: Yes Hx Dementia: Yes Hx Dizziness: Yes (SYNCOPE) - HEENT Hx HEENT Problems: Yes (glasses) - RENAL Hx Chronic Kidney Disease: Yes - ENDOCRINE/METABOLIC Hx Endocrine Disorders: No - HEMATOLOGICAL/ONCOLOGICAL Hx Cancer: No - INTEGUMENTARY Hx Dermatological Problems: No - MUSCULOSKELETAL/RHEUMATOLOGICAL Hx Falls: Yes - GASTROINTESTINAL Hx Gastrointestinal Disorders: Yes (poor appetite,pancratitis,gerd) - GENITOURINARY/GYNECOLOGICAL Hx Genitourinary Disorders: No Hx Reproductive Disorders: No - PSYCHIATRIC Hx Psychophysiologic Disorder: Yes Hx Anxiety: Yes Hx Substance Use: No - SURGICAL HISTORY Hx Mastectomy: No - ANESTHESIA Hx Anesthesia: Yes Hx Anesthesia Reactions: No Hx Malignant Hyperthermia: No Meds Allergies/Adverse Reactions: Allergies Allergy/AdvReac Type Severity Reaction Status Date / Time No Known Allergies Allergy Verified 06/24/17 16:19 - Medications Medications: Current Medications Alprazolam (Xanax) 0.5 mg PO BID PRN; Protocol PRN Reason: Anxiety Last Admin: 06/25/17 05:25 Dose: 0.5 mg Apixaban (Eliquis) 2.5 mg PO BID [facility] PRN Reason: Protocol Last Admin: 06/25/17 10:04 Dose: 2.5 mg Aspirin (Aspirin Chewable) 81 mg PO DAILY [facility] PRN Reason: Protocol Last Admin: 06/25/17 10:07 Dose: 81 mg Atorvastatin Calcium (Lipitor) 20 mg PO DIN [facility] PRN Reason: Protocol Last Admin: 06/24/17 18:01 Dose: 20 mg Calcium/Vitamin D (Oscal-D 250 Mg-125 Units Tab) 1 tab PO BID [facility] Diltiazem HCl (Cardizem Cd) 180 mg PO DAILY [facility] PRN Reason: Protocol Last Admin: 06/25/17 10:05 Dose: 180 mg Donepezil HCl (Aricept) 10 mg PO HS [facility] PRN Reason: Protocol Last Admin: 06/24/17 21:44 Dose: 10 mg Ferrous Gluconate (Fergon) 324 mg PO TID [facility] PRN Reason: Protocol Last Admin: 06/25/17 10:04 Dose: 324 mg Meropenem 500 mg/ Sodium (Chloride) 50 mls @ 100 mls/hr IVPB Q8 [facility] PRN Reason: Protocol Stop: 07/04/17 06:01 Last Admin: 06/25/17 05:24 Dose: 100 mls/hr Insulin Human Regular (Humulin R Low) 0 units SC ACHS [facility] PRN Reason: Protocol Last Admin: 06/25/17 06:51 Dose: Not Given Metoprolol Tartrate (Lopressor) 25 mg PO 0800,1800 [facility] PRN Reason: Protocol Last Admin: 06/25/17 07:58 Dose: 25 mg Ondansetron HCl (Zofran Inj) 4 mg IVP Q4H PRN; Protocol PRN Reason: Nausea/Vomiting Pantoprazole Sodium (Protonix Ec Tab) 40 mg PO 0600 [facility] PRN Reason: Protocol Last Admin: 06/25/17 05:25 Dose: 40 mg Sodium Bicarbonate (Sodium Bicarbonate Tab) 650 mg PO BID [facility] Tramadol HCl (Ultram) 50 mg PO Q8H PRN; Protocol PRN Reason: Pain, moderate (4-7) Last Admin: 06/25/17 10:10 Dose: 50 mg Vitamin B Complex/Vit C/Folic Acid (Nephro-Haider) 1 tab PO 0800 [facility] PRN Reason: Protocol Last Admin: 06/25/17 07:59 Dose: 1 tab Results - Vital Signs Recent Vital Signs: Last Vital Signs Temp 98.1 F 06/25/17 08:00 Pulse 77 06/25/17 10:05 Resp 20 06/25/17 08:00 BP 117/77 06/25/17 10:05 Pulse Ox 100 06/25/17 06:00 - Labs Result Diagrams: 06/25/17 07:00 06/25/17 07:00 Labs: Laboratory Results - last 24 hr 06/24/17 06/25/17 06/25/17 21:46 04:52 07:00 WBC 7.8 D RBC 3.43 L Hgb 9.5 L Hct 30.5 L MCV 88.9 MCH 27.7 MCHC 31.1 RDW 15.5 H Plt Count 187 MPV 10.1 Gran % 76.5 H Lymph % (Auto) 13.5 L [place] % (Auto) 7.1 H Eos % (Auto) 2.6 Baso % (Auto) 0.3 Gran # 5.96 Lymph # (Auto) 1.1 L [place] # (Auto) 0.6 Eos # (Auto) 0.2 Baso # (Auto) 0.02 Sodium Potassium Chloride Carbon Dioxide Anion Gap BUN Creatinine Est GFR ( Amer) Est GFR (Non-Af Amer) POC Glucose (mg/dL) 144 H 82 Random Glucose Calcium Total Bilirubin AST ALT Alkaline Phosphatase Total Protein Albumin Globulin Albumin/Globulin Ratio 06/25/17 07:00 WBC RBC Hgb Hct MCV MCH MCHC RDW Plt Count MPV Gran % Lymph % (Auto) [place] % (Auto) Eos % (Auto) Baso % (Auto) Gran # Lymph # (Auto) [place] # (Auto) Eos # (Auto) Baso # (Auto) Sodium 140 Potassium 5.1 H Chloride 113 H Carbon Dioxide 20 L Anion Gap 13 BUN 18 Creatinine 1.4 H Est GFR ( Amer) 44 Est GFR (Non-Af Amer) 36 POC Glucose (mg/dL) Random Glucose 96 Calcium 8.7 Total Bilirubin 0.2 AST 24 ALT 29 Alkaline Phosphatase 62 Total Protein 6.0 Albumin 3.0 Globulin 3.1 Albumin/Globulin Ratio 1.0 L
[2017-06-25] MEDS: Calcium-Vit D 250 mg-125 Units Tab UD PO SCH (17:33)
--- NOTE | 2017-06-25 18:56 | CP.PCM.CON ---
History of Present Illness - History of Present Illness History of Present Illness: 81 year old female with PMH of atrial fibrillation, COPD, CAD, chronic CHF, renal cell cancer S/P nephrectomy, lung cancer S/P lobectomy, anxiety, dementia initially came in with abdominal pain. She was found to have probable acute pancreatitis and is being managed medically. She is now transferred to [facility] for continued medical therapy and physical therapy. Infectious Diseases consult is requested to further evaluate and manage. Currently she is comfortable in bed, no fever or chills, abdominal pain is improved, no nausea or vomiting, starting to tolerate food intake, no headache or dizziness, no cough or colds, no diarrhea, no dysuria. Infectious Diseases consult is requested for antibiotic management. Review of Systems - Review of Systems All systems: reviewed and no additional remarkable complaints except (as per HPI ) Past Patient History - Infectious Disease Hx of Infectious Diseases: None - Tetanus Immunizations Tetanus Immunization: >10 years Ago - Past Medical History & Family History Past Medical History?: Yes - Past Social History Smoking Status: Former Smoker - CARDIAC Hx Congestive Heart Failure: Yes Hx Hypertension: Yes - PULMONARY Hx Chronic Obstructive Pulmonary Disease (COPD): Yes - NEUROLOGICAL Hx Neurological Disorder: Yes Hx Dementia: Yes Hx Dizziness: Yes (SYNCOPE) - HEENT Hx HEENT Problems: Yes (glasses) - RENAL Hx Chronic Kidney Disease: Yes - ENDOCRINE/METABOLIC Hx Endocrine Disorders: No - HEMATOLOGICAL/ONCOLOGICAL Hx Cancer: No - INTEGUMENTARY Hx Dermatological Problems: No - MUSCULOSKELETAL/RHEUMATOLOGICAL Hx Falls: Yes - GASTROINTESTINAL Hx Gastrointestinal Disorders: Yes (poor appetite,pancratitis,gerd) - GENITOURINARY/GYNECOLOGICAL Hx Genitourinary Disorders: No Hx Reproductive Disorders: No - PSYCHIATRIC Hx Psychophysiologic Disorder: Yes Hx Anxiety: Yes Hx Substance Use: No - SURGICAL HISTORY Hx Mastectomy: No - ANESTHESIA Hx Anesthesia: Yes Hx Anesthesia Reactions: No Hx Malignant Hyperthermia: No Meds Allergies/Adverse Reactions: Allergies Allergy/AdvReac Type Severity Reaction Status Date / Time No Known Allergies Allergy Verified 06/24/17 16:19 - Medications Medications: Current Medications Alprazolam (Xanax) 0.5 mg PO BID PRN; Protocol PRN Reason: Anxiety Apixaban (Eliquis) 2.5 mg PO BID [facility] PRN Reason: Protocol Last Admin: 06/24/17 18:02 Dose: 2.5 mg Aspirin (Aspirin Chewable) 81 mg PO DAILY ISAI PRN Reason: Protocol Atorvastatin Calcium (Lipitor) 20 mg PO DIN ISAI PRN Reason: Protocol Last Admin: 06/24/17 18:01 Dose: 20 mg Diltiazem HCl (Cardizem Cd) 180 mg PO DAILY [facility]AI PRN Reason: Protocol Donepezil HCl (Aricept) 10 mg PO HS [facility]AI PRN Reason: Protocol Last Admin: 06/24/17 21:44 Dose: 10 mg Ferrous Gluconate (Fergon) 324 mg PO TID [facility]AI PRN Reason: Protocol Last Admin: 06/24/17 18:02 Dose: 324 mg Meropenem 500 mg/ Sodium (Chloride) 50 mls @ 100 mls/hr IVPB Q8 [facility] PRN Reason: Protocol Stop: 07/04/17 06:01 Insulin Human Regular (Humulin R Low) 0 units SC ACHS [facility] PRN Reason: Protocol Last Admin: 06/24/17 22:17 Dose: Not Given Metoprolol Tartrate (Lopressor) 25 mg PO 0800,1800 [facility] PRN Reason: Protocol Last Admin: 06/24/17 18:02 Dose: 25 mg Ondansetron HCl (Zofran Inj) 4 mg IVP Q4H PRN; Protocol PRN Reason: Nausea/Vomiting Pantoprazole Sodium (Protonix Ec Tab) 40 mg PO 0600 [facility] PRN Reason: Protocol Tramadol HCl (Ultram) 50 mg PO Q8H PRN; Protocol PRN Reason: Pain, moderate (4-7) Last Admin: 06/24/17 16:26 Dose: 50 mg Vitamin B Complex/Vit C/Folic Acid (Nephro-Haider) 1 tab PO 0800 [facility] PRN Reason: Protocol Physical Exam - Constitutional Appears: Chronically Ill - Head Exam Head Exam: NORMAL INSPECTION - ENT Exam ENT Exam: Mucous Membranes Moist - Neck Exam Neck exam: Negative for: Meningismus - Respiratory Exam Respiratory Exam: Decreased Breath Sounds - Cardiovascular Exam Cardiovascular Exam: +S1, +S2 - GI/Abdominal Exam GI & Abdominal Exam: Soft. absent: Tenderness Results - Vital Signs Recent Vital Signs: Last Vital Signs Temp 97.4 F L 06/24/17 16:59 Pulse 79 06/24/17 18:02 Resp 18 06/24/17 16:59 BP 141/60 06/24/17 18:02 Pulse Ox 100 06/24/17 16:59 - Labs Result Diagrams: 06/25/17 07:00 06/25/17 07:00 Labs: Laboratory Results - last 24 hr 06/24/17 21:46 POC Glucose (mg/dL) 144 H Assessment & Plan - Assessment and Plan (Free Text) Plan: Assessment Severe sepsis R/O intra-abdominal infection atrial fibrillation COPD CAD chronic CHF renal cell cancer S/P nephrectomy lung cancer S/P lobectomy anxiety dementia Plan continue Merrem day 4 to complete 5-7 days of therapy; blood cx have been negative will continue to monitor clinically
--- NOTE | 2017-06-25 20:40 | HP ---
DATE OF EXAM: HISTORY OF PRESENT ILLNESS: She came to the hospital with nausea, vomiting, not feeling well and she ended up being admitted to the hospital with abdominal pain, left hip pain, a fall, change in mentation, high potassium, dehydration, and now she is in the TCU for continued treatment and physical therapy. She is an 81-year-old female, needs moire physical therapy and IV antibiotics, for her admission to the hospital. PAST MEDICAL HISTORY: She has a past medical history of AFib, CHF, hypertension, dementia. She has osteoarthritis. She has GERD, anxiety, history of falls. SOCIAL HISTORY: She used to smoke cigarettes, but she quit. No alcohol. She wears glasses. FAMILY HISTORY: Unknown family history. ALLERGIES: NO KNOWN DRUG ALLERGIES. Former smoker. No alcohol. No drugs. She is comfortable in bed right now. She is in some pain at times in the bones. Not nauseous anymore. No abdominal pain anymore. No changes in vision or hearing. No sore throat. No chest pain or palpitations. No shortness of breath or cough. No abdominal pain at this time. No skin issues at this time. She is alert, comfortable, eating her breakfast. PHYSICAL EXAMINATION: VITAL SIGNS: Her vital signs are 98.1 temperature, 64 pulse, 109/67 blood pressure, 20 respiratory rate, 100% O2 sat on nasal cannula. GENERAL: She is well appearing, nontoxic at this time. Alert and oriented x3. HEENT: Head is atraumatic, normocephalic. Extraocular muscles are intact. Pupils are equal and reactive to light and accommodation. Throat is moist. NECK: Supple. HEART: Regular rate. LUNGS: Clear to auscultation with decreased breath sounds, but clear to auscultation. ABDOMEN: Soft, nontender. Positive bowel sounds. No guarding, rebound, or CVA tenderness. No more tenderness in the belly. EXTREMITIES: No edema. NEUROLOGICAL: GCS is 15. Cranial nerves II through XII grossly intact. She is pleasant. Poor insight. ASSESSMENT AND PLAN: She is here now for continued treatment and care. She has severe abdominal pain, nausea, vomiting. She has consults with Cardiology, Infectious Disease. She had abdominal pain which got better, chronic atrial fibrillation, renal insufficiency, systemic hypertension, high cholesterol, pulmonary retention, history of lung cancer with lobectomy, acute kidney injury, on Merrem, and she needs some physical therapy. Her leukocytosis has resolved. We will continue to watch her, encourage her to do physical therapy and eat well. Marco Farris DO [facility] # [id number]
[2017-06-26] MEDS: Pantoprazole 40 mg EC Tab PO SCH (05:36)
[2017-06-26] MEDS: Meropenem 500 MG in Sodium Chloride 0.9% 50 ML IVPB SCH ×3 (05:36→21:23)
[2017-06-26] MEDS: Insulin Reg-LOW-Coverage SC SCH ×4 (06:39→21:36)
[2017-06-26 07:31] LABS: MEAN CELL VOLUME 88.6 fl (80.0-105.0); MEAN CORPUSCULAR HEMOGLOBIN 27.1 pg (25.0-35.0); MEAN CORPUSCULAR HGB CONC 30.6 g/dl (31.0-37.0); MEAN PLATELET VOLUME 9.5 fl (7.0-11.0); RBC 3.32 10^6/uL (3.5-6.1); RED CELL DISTRIBUTION WIDTH 15.3 % (11.5-14.5)
[2017-06-26 07:50] LABS: ALBUMIN 3.1 g/dL (3.0-4.8); CALCIUM 8.7 mg/dL (8.4-10.5)
[2017-06-26] MEDS ORDERED: Sod Polystyrene Sulf 15 gm/60 ml Susp PO ONE (08:11)
[2017-06-26] MEDS: Multivitamin Vitamin B Complex (Nephro-Vite) Tab PO SCH (08:29)
[2017-06-26] MEDS: Calcium-Vit D 250 mg-125 Units Tab UD PO SCH ×2 (09:25→17:36)
[2017-06-26] MEDS: diltiaZEM 180 mg/24 Hours CD Cap PO SCH (09:25)
--- NOTE | 2017-06-26 10:49 | CP.PCM.PN ---
Subjective - Date & Time of Evaluation Date of Evaluation: 06/26/17 Time of Evaluation: 10:47 - Subjective Subjective: RENAL PROGRESS NOTE Assessment: stable acute gastroenteritis and pancreatitis: improved PATRICIA likely pre-renal state as evident by GI fluid loss, hemoconcentration with associated hyperkalemia and acidosis: improved Chronic Kidney Disease Stage 3 (N18.3) with 322 mg proteinuria possibly due to HTN, age related decline, and s/p Rt nephrectomy due to hx of RCC Hypertension controlled (I12.9) Vit D insufficiency with secondary hyperparathyroidism, anemia hx of severe pulmonary HTN (RVSP 81 mm Hg) and moderate to severe LVH hx of dementia bradycardia s/p PPM, A fib Plan PATRICIA continues to improve no ACEI or ARB due to recurrent AKIs and hyperkalemic tendency. maintain hemodynamic stable. Low K Diet - asked RN to make sure on this pt getting meds to control A fib rate dose of aransep 60 mcg 05/21/17. Another dose aransep 40 mcg 06/25/17. on iron continue sodium bicarb 650 mg bid and Oscal-D 1 tab bid given kayexlate today S: seen and examined feels good eating Physical Examination: General Appearance: Comfortable, in no acute respiratory distress, co-operative Vitals reviewed and noted as below Head; Atraumatic, normocephalic ENT: no ulcers no thrush. Tongue is midline. Oropharynx: no rash or ulcers. EYES: Pupils are equal, round and reactive to light accommodation. Eye muscles and extraocular movement intact. Sclera is anicteric. Neck; supple no lymphadenopathy, no thyromegaly or bruit Lungs: Normal respiratory rate/effort. Breath sounds bilateral equal and clear Heart: Increased rate. s1s2 normal. No rub or gallop. has PPM and A fib Extremities: no edema. No varicose veins Neurological: Patient is alert, awake and oriented x3 No other focal deficit. Strength bilateral appropriate and equal Skin: Warm and dry. Normal turgor. No rash. Palpitation: Normal elasticity for age Abdomen: Abdomen is soft. Bowel sounds +. There is no abdominal tenderness, no guarding/rigidity or organomegaly Psych: limited insight and has normal affect/mood MSK: no joint tenderness or swelling. Digits and nails normal, no deformity : kidney or bladder not palpable Labs/imaging/EKG reviewed. Past medical history, past surgical history,social history, allergy reviewed and noted as below FAMILy HX; no hx of CKD. non contributory work up: CT 2018: s/p Rt nephrectomy, left kidney unremarkable Vit D 35 PTH 70 TSAT 10% Ferritin 30 Objective - Vital Signs/Intake and Output Vital Signs (last 24 hours): Temp Pulse Resp BP Pulse Ox 97.9 F 94 H 18 116/65 97 06/25/17 16:44 06/26/17 09:25 06/25/17 16:44 06/26/17 09:25 06/25/17 16:44 - Medications Medications: Current Medications Alprazolam (Xanax) 0.5 mg PO BID PRN; Protocol PRN Reason: Anxiety Last Admin: 06/26/17 08:38 Dose: 0.5 mg Apixaban (Eliquis) 2.5 mg PO BID [facility] PRN Reason: Protocol Last Admin: 06/26/17 09:25 Dose: 2.5 mg Aspirin (Aspirin Chewable) 81 mg PO DAILY [facility] PRN Reason: Protocol Last Admin: 06/26/17 09:25 Dose: 81 mg Atorvastatin Calcium (Lipitor) 20 mg PO DIN [facility] PRN Reason: Protocol Last Admin: 06/25/17 17:32 Dose: 20 mg Calcium/Vitamin D (Oscal-D 250 Mg-125 Units Tab) 1 tab PO BID [facility] Last Admin: 06/26/17 09:25 Dose: 1 tab Diltiazem HCl (Cardizem Cd) 180 mg PO DAILY [facility] PRN Reason: Protocol Last Admin: 06/26/17 09:25 Dose: 180 mg Donepezil HCl (Aricept) 10 mg PO HS [facility] PRN Reason: Protocol Last Admin: 06/25/17 21:00 Dose: 10 mg Ferrous Gluconate (Fergon) 324 mg PO TID [facility] PRN Reason: Protocol Last Admin: 06/26/17 09:25 Dose: 324 mg Meropenem 500 mg/ Sodium (Chloride) 50 mls @ 100 mls/hr IVPB Q8 [facility] PRN Reason: Protocol Stop: 07/04/17 06:01 Last Admin: 06/26/17 05:36 Dose: 100 mls/hr Insulin Human Regular (Humulin R Low) 0 units SC ACHS [facility] PRN Reason: Protocol Last Admin: 06/26/17 06:39 Dose: Not Given Metoprolol Tartrate (Lopressor) 25 mg PO 0800,1800 [facility] PRN Reason: Protocol Last Admin: 06/26/17 08:28 Dose: 25 mg Ondansetron HCl (Zofran Inj) 4 mg IVP Q4H PRN; Protocol PRN Reason: Nausea/Vomiting Pantoprazole Sodium (Protonix Ec Tab) 40 mg PO 0600 [facility] PRN Reason: Protocol Last Admin: 06/26/17 05:36 Dose: 40 mg Sodium Bicarbonate (Sodium Bicarbonate Tab) 650 mg PO BID [facility] Last Admin: 06/26/17 09:25 Dose: 650 mg Tramadol HCl (Ultram) 50 mg PO Q8H PRN; Protocol PRN Reason: Pain, moderate (4-7) Last Admin: 06/26/17 05:43 Dose: 50 mg Vitamin B Complex/Vit C/Folic Acid (Nephro-Haider) 1 tab PO 0800 [facility] PRN Reason: Protocol Last Admin: 06/26/17 08:29 Dose: 1 tab - Labs Labs: 06/26/17 07:00 06/26/17 07:00
--- NOTE | 2017-06-26 17:28 | PN ---
DATE: 06/26/2017 SUBJECTIVE: The patient is in bed, in no acute distress, nontoxic. PHYSICAL EXAMINATION: VITAL SIGNS: Temperature is 97, blood pressure is 116/60, respiratory rate of 18, heart rate of 94. HEENT: Unremarkable. NECK: Supple. LUNGS: Have decreased breath sounds. HEART: Normal S1, S2. ABDOMEN: Soft, nontender. LABORATORY DATA: Reveals the patient has a procalcitonin of 0.16. ASSESSMENT AND PLAN: This is an 81-year-old with severe sepsis and intra-abdominal infection, atrial fibrillation, chronic obstructive lung disease, coronary artery disease, chronic congestive heart failure, renal cell cancer status post nephrectomy, lung cancer status post lobectomy, anxiety, dementia, on day #5 of meropenem, would complete 5-7 days and review of orders reveals the patient to be on meropenem. Jenaro Farias MD
[2017-06-27] MEDS: Meropenem 500 MG in Sodium Chloride 0.9% 50 ML IVPB SCH ×3 (05:48→21:42)
[2017-06-27] MEDS: Pantoprazole 40 mg EC Tab PO SCH (05:49)
[2017-06-27] MEDS: Insulin Reg-LOW-Coverage SC SCH ×4 (06:41→21:39)
[2017-06-27 07:12] LABS: HEMOGLOBIN 8.8 g/dL (12.0-16.0); MEAN CELL VOLUME 87.7 fl (80.0-105.0); MEAN CORPUSCULAR HEMOGLOBIN 27.1 pg (25.0-35.0); MEAN CORPUSCULAR HGB CONC 30.9 g/dl (31.0-37.0); RBC 3.25 10^6/uL (3.5-6.1)
[2017-06-27 07:40] LABS: ALB/GLOB RATIO 0.9 (1.1-1.8); ALBUMIN 2.9 g/dL (3.0-4.8); CALCIUM 8.7 mg/dL (8.4-10.5)
[2017-06-27] MEDS: Multivitamin Vitamin B Complex (Nephro-Vite) Tab PO SCH (08:18)
[2017-06-27] MEDS: diltiaZEM 180 mg/24 Hours CD Cap PO SCH (10:11)
[2017-06-27] MEDS: Calcium-Vit D 250 mg-125 Units Tab UD PO SCH ×2 (10:12→17:20)
--- NOTE | 2017-06-27 14:22 | CP.PCM.PN ---
Subjective - Date & Time of Evaluation Date of Evaluation: 06/27/17 Time of Evaluation: 14:21 - Subjective Subjective: RENAL PROGRESS NOTE Assessment: stable acute gastroenteritis and pancreatitis: improved PATRICIA likely pre-renal state as evident by GI fluid loss, hemoconcentration with associated hyperkalemia and acidosis: improved Chronic Kidney Disease Stage 3 (N18.3) with 322 mg proteinuria possibly due to HTN, age related decline, and s/p Rt nephrectomy due to hx of RCC Hypertension controlled (I12.9) Vit D insufficiency with secondary hyperparathyroidism, anemia hx of severe pulmonary HTN (RVSP 81 mm Hg) and moderate to severe LVH hx of dementia bradycardia s/p PPM, A fib Plan PATRICIA continues to improve no ACEI or ARB due to recurrent AKIs and hyperkalemic tendency. low k diet k ok today cr stable getting meds to control A fib rate dose of aransep 60 mcg 05/21/17. Another dose aransep 40 mcg 06/25/17. on iron continue sodium bicarb 650 mg bid and Oscal-D 1 tab bid S: seen and examined feels good eating Physical Examination: General Appearance: Comfortable, in no acute respiratory distress, co-operative Vitals reviewed and noted as below Head; Atraumatic, normocephalic ENT: no ulcers no thrush. Tongue is midline. Oropharynx: no rash or ulcers. EYES: Pupils are equal, round and reactive to light accommodation. Eye muscles and extraocular movement intact. Sclera is anicteric. Neck; supple no lymphadenopathy, no thyromegaly or bruit Lungs: Normal respiratory rate/effort. Breath sounds bilateral equal and clear Heart: Increased rate. s1s2 normal. No rub or gallop. has PPM and A fib Extremities: no edema. No varicose veins Neurological: Patient is alert, awake and oriented x3 No other focal deficit. Strength bilateral appropriate and equal Skin: Warm and dry. Normal turgor. No rash. Palpitation: Normal elasticity for age Abdomen: Abdomen is soft. Bowel sounds +. There is no abdominal tenderness, no guarding/rigidity or organomegaly Psych: limited insight and has normal affect/mood MSK: no joint tenderness or swelling. Digits and nails normal, no deformity : kidney or bladder not palpable Labs/imaging/EKG reviewed. Past medical history, past surgical history,social history, allergy reviewed and noted as below FAMILy HX; no hx of CKD. non contributory Objective - Vital Signs/Intake and Output Vital Signs (last 24 hours): Temp Pulse Resp BP Pulse Ox 98.4 F 75 20 125/78 97 06/27/17 08:00 06/27/17 10:11 06/27/17 08:00 06/27/17 10:11 06/26/17 10:00 - Medications Medications: Current Medications Alprazolam (Xanax) 0.5 mg PO BID PRN; Protocol PRN Reason: Anxiety Last Admin: 06/27/17 10:10 Dose: 0.5 mg Apixaban (Eliquis) 2.5 mg PO BID [facility] PRN Reason: Protocol Last Admin: 06/27/17 10:12 Dose: 2.5 mg Aspirin (Aspirin Chewable) 81 mg PO DAILY [facility] PRN Reason: Protocol Last Admin: 06/27/17 10:12 Dose: 81 mg Atorvastatin Calcium (Lipitor) 20 mg PO DIN [facility] PRN Reason: Protocol Last Admin: 06/26/17 17:36 Dose: 20 mg Calcium/Vitamin D (Oscal-D 250 Mg-125 Units Tab) 1 tab PO BID [facility] Last Admin: 06/27/17 10:12 Dose: 1 tab Diltiazem HCl (Cardizem Cd) 180 mg PO DAILY [facility] PRN Reason: Protocol Last Admin: 06/27/17 10:11 Dose: 180 mg Donepezil HCl (Aricept) 10 mg PO HS [facility] PRN Reason: Protocol Last Admin: 06/26/17 21:23 Dose: 10 mg Ferrous Gluconate (Fergon) 324 mg PO TID [facility] PRN Reason: Protocol Last Admin: 06/27/17 13:39 Dose: 324 mg Meropenem 500 mg/ Sodium (Chloride) 50 mls @ 100 mls/hr IVPB Q8 [facility] PRN Reason: Protocol Stop: 07/04/17 06:01 Last Admin: 06/27/17 13:36 Dose: 100 mls/hr Insulin Human Regular (Humulin R Low) 0 units SC ACHS [facility] PRN Reason: Protocol Last Admin: 06/27/17 11:46 Dose: Not Given Metoprolol Tartrate (Lopressor) 25 mg PO 0800,1800 [facility] PRN Reason: Protocol Last Admin: 06/27/17 08:17 Dose: 25 mg Ondansetron HCl (Zofran Inj) 4 mg IVP Q4H PRN; Protocol PRN Reason: Nausea/Vomiting Pantoprazole Sodium (Protonix Ec Tab) 40 mg PO 0600 [facility] PRN Reason: Protocol Last Admin: 06/27/17 05:49 Dose: 40 mg Sodium Bicarbonate (Sodium Bicarbonate Tab) 650 mg PO BID [facility] Last Admin: 06/27/17 10:11 Dose: 650 mg Tramadol HCl (Ultram) 50 mg PO Q8H PRN; Protocol PRN Reason: Pain, moderate (4-7) Last Admin: 06/27/17 08:16 Dose: 50 mg Vitamin B Complex/Vit C/Folic Acid (Nephro-Haider) 1 tab PO 0800 [facility] PRN Reason: Protocol Last Admin: 06/27/17 08:18 Dose: 1 tab - Labs Labs: 06/27/17 06:30 06/27/17 06:30
--- NOTE | 2017-06-27 15:10 | PN ---
DATE: SUBJECTIVE: I saw her in the Transitional Care Unit. She is resting comfortably in bed. She ate all the food. She is on Aricept, aspirin, Cardizem, Eliquis, Fergon, insulin, Lipitor, Lopressor, Merrem IV, vitamins, Os-Momo, Protonix, sodium bicarbonate, Ultram, Xanax, and Zofran. PHYSICAL EXAMINATION: VITAL SIGNS: She has a 98.4 temperature, 78 pulse, 125/70 blood pressure, 20 respiratory rate. HEENT: Head is atraumatic, normocephalic. HEART: Regular rate. LUNGS: Clear to auscultation. ABDOMEN: Soft. EXTREMITIES: No edema. She is comfortable at this time and the pain medications are working for her at this time. LABORATORY DATA: She has 5 white count, 8.8 hemoglobin, 28.5 hematocrit with 180 platelets. Sodium 140, potassium is 5, BUN 27, creatinine 1.4, GFR is 36, sugar is 90, calcium is 8.7. Total bilirubin is 0.1, AST is 27, ALT is 22, alkaline phosphatase 58, total protein 6.1. ASSESSMENT AND PLAN: She is being seen by Infectious Disease and Renal. She has abdominal pain, hip pain, change in mental status, nausea, vomiting, dehydration, high potassium, severe sepsis, abdominal infection, atrial fibrillation, chronic obstructive pulmonary disease, coronary artery disease, congestive heart failure, renal failure. We will continue aggressive treatment and care on Sarah Baker and get physical therapy Marco Farris DO MTDD
--- NOTE | 2017-06-27 18:54 | PN ---
DATE: 06/27/2017 SUBJECTIVE: The patient is in bed, in no acute distress, nontoxic. She was seen earlier this morning in room 314. PHYSICAL EXAMINATION: VITAL SIGNS: Temperature is 98, blood pressure is 104/60, respiratory rate of 18, heart rate of 75. HEENT: Unremarkable. NECK: Supple. LUNGS: Have decreased breath sounds. HEART: Normal S1, S2. ABDOMEN: Soft. LABORATORY DATA: Reveals a white count of 5, hemoglobin of 8. Chemistries revels a BUN of 27, creatinine of 1.4. Microbiology is noted. ASSESSMENT AND PLAN: This is an 81-year-old female with severe sepsis; intra-abdominal infection; atrial fibrillation; chronic obstructive lung disease; coronary artery disease; congestive heart failure; renal cell cancer, status post nephrectomy; lung cancer, status post lobectomy; anxiety; dementia, day #6 of meropenem and would complete 7 days. The patient is doing well. Jenaro Farias MD
[2017-06-28] MEDS: Pantoprazole 40 mg EC Tab PO SCH (05:52)
[2017-06-28] MEDS: Meropenem 500 MG in Sodium Chloride 0.9% 50 ML IVPB SCH ×3 (05:53→21:44)
[2017-06-28] MEDS: Insulin Reg-LOW-Coverage SC SCH ×4 (06:43→21:44)
[2017-06-28 07:18] LABS: MEAN CELL VOLUME 87.2 fl (80.0-105.0); MEAN CORPUSCULAR HEMOGLOBIN 27.5 pg (25.0-35.0); MEAN CORPUSCULAR HGB CONC 31.6 g/dl (31.0-37.0); MEAN PLATELET VOLUME 9.2 fl (7.0-11.0); RBC 3.27 10^6/uL (3.5-6.1); RED CELL DISTRIBUTION WIDTH 15.3 % (11.5-14.5); WHITE BLOOD COUNT 5.8 10^3/ul (4.5-11.0)
[2017-06-28 07:56] LABS: ALB/GLOB RATIO 0.9 (1.1-1.8)
[2017-06-28] MEDS: Multivitamin Vitamin B Complex (Nephro-Vite) Tab PO SCH (08:00)
--- NOTE | 2017-06-28 09:39 | PN ---
DATE: 06/26/2017 SUBJECTIVE: I saw Sarah resting in bed comfortably. She slept very well all through the night, talk very well. She is eating. She is trying physical therapy and no complaints. PHYSICAL EXAMINATION: VITAL SIGNS: Temperature 97.9, 86 pulse, 106/56 blood pressure, 18 respiratory rate, 97% O2 sat. HEENT: Head is atraumatic and normocephalic. HEART: Regular rate. LUNGS: Clear to auscultation. ABDOMEN: Soft, nontender. Positive bowel sounds. EXTREMITIES: No edema. As I am leaving the room, she asked for pain meds. I do not see her in pain. She slept through the night. I do not understand why she needs this pain medication. I will call in pain management to evaluate. LABORATORY DATA: White count 7, hemoglobin 9, hematocrit 29.4, platelets 174. Sodium 139, potassium 5.5. We will give her Kayexalate. BUN is 24, creatinine 1.4. GFR is 36. Sugar is 95. Calcium is 8.7. Total bilirubin is 0.1, AST is 25, ALT 25, alk phos is 60. ASSESSMENT AND PLAN: She is being seen by Infectious Disease. She has severe sepsis; intraabdominal infection; atrial fibrillation; chronic obstructive pulmonary disease; coronary artery disease; chronic congestive heart failure; history of rectal cancer, status post ; lung cancer, status post lobectomy; anxiety; dementia. She is on IV antibiotics, Merrem. I will call in pain management. We will give her Kayexalate for the elevated potassium. I will check her labs tomorrow and make sure she is getting out of bed to chair everyday and get pain management overall. Marco Farris DO MTDD
[2017-06-28] MEDS: Calcium-Vit D 250 mg-125 Units Tab UD PO SCH ×2 (10:21→17:03)
[2017-06-28] MEDS: diltiaZEM 180 mg/24 Hours CD Cap PO SCH (10:22)
--- NOTE | 2017-06-28 10:25 | PN ---
DATE: SUBJECTIVE: I saw Sarah resting comfortably in bed. She is in TCU. She is eating well. She is trying on physical therapy. MEDICATIONS: She is on Aricept, aspirin, Cardizem, Eliquis, Fergon, insulin coverage, Lipitor, Lopressor, Merrem IV, Nephro-Haider, Os-Momo, Protonix, sodium bicarb, Ultram, Xanax and Zofran. PHYSICAL EXAMINATION: VITAL SIGNS: She has a 98.5 temp, 65 pulse, 121/63 blood pressure, 21 respiratory rate, 98% O2 sat on nasal cannula. HEENT: Head is atraumatic, normocephalic. GENERAL: She is alert and comfortable, smiling, good spirits. HEART: Regular rate. LUNGS: Clear to auscultation. ABDOMEN: Soft, nontender. Positive bowel sounds. EXTREMITIES: No edema. She is trying hard in therapy. LABORATORY DATA: She has a 5.8 white count, 9 hemoglobin, 28.5 hematocrit with 175 platelets. 141 sodium, potassium 4.8, BUN 30, creatinine 1.6, GFR is 31, calcium is 9, total bili is 0.1, AST is 35, ALT is 34, alk phos is 57, total protein 6.3. I asked her to drink more water today. She is being seen by Renal and by Infectious Disease. She did have severe sepsis; intraabdominal infection; atrial fibrillation; chronic obstructive pulmonary disease; coronary artery disease; congestive heart failure; history of renal cell carcinoma, status post nephrectomy; lung cancer, status post lobectomy. She is on Merrem and she is doing well. We will watch her labs tomorrow. Encouraged her to drink more water and out of bed to the chair. aMrco Farris DO
--- NOTE | 2017-06-28 16:03 | CP.PCM.PN ---
Subjective - Date & Time of Evaluation Date of Evaluation: 06/28/17 Time of Evaluation: 16:02 - Subjective Subjective: Nephrology Consultation Note: Assessment: stable acute gastroenteritis and pancreatitis: improved PATRICIA likely pre-renal state as evident by GI fluid loss, hemoconcentration with associated hyperkalemia and acidosis: improved Chronic Kidney Disease Stage 3 (N18.3) with 322 mg proteinuria possibly due to HTN, age related decline, and s/p Rt nephrectomy due to hx of RCC Hypertension controlled (I12.9) Vit D insufficiency with secondary hyperparathyroidism, anemia hx of severe pulmonary HTN (RVSP 81 mm Hg) and moderate to severe LVH hx of dementia bradycardia s/p PPM, A fib Plan no acute need of renal replacement therapy at this time no ACEI or ARB due to recurrent AKIs and hyperkalemic tendency. maintain hemodynamic stable. Low K Diet pt on meds to control A fib rate anemia management: PRBC as needed, continue with iron 324 mg TID and MVI. dose aransep 40 mcg 06/25/17 continue with sodium bicarb 650 mg bid and Oscal-D 1 tab bid resume home dose of lasix 20 mg Dose meds/antibiotics for reduced GFR. Avoid fleets enema/magnesium based laxatives. Avoid nephrotoxins/NSAIDs/IV iodinated contrast (unless emergent) Further work up as per primary team Thanks for allowing me to participate in care of your patient. will follow with you. Please call if any Qs. Dr Jt Lemon Office: [phone] CC: back pain Reason for consult: CKD and PATRICIA HPI: Pt is a 81 y/o F with hx of hypertension (20 years) , renal cell cancer s/ p unilateral total nephrectomy, CKD stage 3 with baseline cr 1.4-1.7 since 2017 but intermittent and frequent episodes of PATRICIA, chronic anemia, A fib, bradycardia s/p PPM initially admitted with elevated lipase, gastroenteritis and PATRICIA. Renal function improved with IVF, pt d/c to rehab and renal consult for further management of PATRICIA/CKD. pt feels better. improved GI symptoms. reports back pain yesterday which is also better now ROS: denies CP/SOB. improved nausea/vomiting/pain abdomen denies urine complaints. all other negative except as in HPI. feels better Physical Examination: General Appearance: Comfortable, in no acute respiratory distress, co-operative Vitals reviewed and noted as below Head; Atraumatic, normocephalic ENT: no ulcers no thrush. Tongue is midline. Oropharynx: no rash or ulcers. EYES: Pupils are equal, round and reactive to light accommodation. Eye muscles and extraocular movement intact. Sclera is anicteric. Neck; supple no lymphadenopathy, no thyromegaly or bruit Lungs: Normal respiratory rate/effort. Breath sounds bilateral equal and clear Heart: normal rate. s1s2 normal. No rub or gallop. has PPM and A fib Extremities: 1+ edema. No varicose veins Neurological: Patient is alert, awake and oriented x3 No other focal deficit. Strength bilateral appropriate and equal Skin: Warm and dry. Normal turgor. No rash. Palpitation: Normal elasticity for age Abdomen: Abdomen is soft. Bowel sounds +. There is no abdominal tenderness, no guarding/rigidity or organomegaly Psych: limited insight and has normal affect/mood MSK: no joint tenderness or swelling. Digits and nails normal, no deformity : kidney or bladder not palpable Labs/imaging/EKG reviewed. Past medical history, past surgical history,social history, allergy reviewed and noted as below FAMILy HX; no hx of CKD. non contributory work up: CT 2018: s/p Rt nephrectomy, left kidney unremarkable Vit D 35 PTH 70 TSAT 10% Ferritin 30 Objective - Vital Signs/Intake and Output Vital Signs (last 24 hours): Temp Pulse Resp BP Pulse Ox 98.5 F 64 21 118/61 100 06/28/17 06:00 06/28/17 10:22 06/28/17 06:00 06/28/17 10:22 06/28/17 06:00 - Medications Medications: Current Medications Alprazolam (Xanax) 0.5 mg PO BID PRN; Protocol PRN Reason: Anxiety Last Admin: 06/27/17 10:10 Dose: 0.5 mg Apixaban (Eliquis) 2.5 mg PO BID [facility] PRN Reason: Protocol Last Admin: 06/28/17 10:21 Dose: 2.5 mg Aspirin (Aspirin Chewable) 81 mg PO DAILY [facility] PRN Reason: Protocol Last Admin: 06/28/17 10:21 Dose: 81 mg Atorvastatin Calcium (Lipitor) 20 mg PO DIN [facility] PRN Reason: Protocol Last Admin: 06/27/17 17:19 Dose: 20 mg Calcium/Vitamin D (Oscal-D 250 Mg-125 Units Tab) 1 tab PO BID [facility] Last Admin: 06/28/17 10:21 Dose: 1 tab Diltiazem HCl (Cardizem Cd) 180 mg PO DAILY [facility] PRN Reason: Protocol Last Admin: 06/28/17 10:22 Dose: 180 mg Donepezil HCl (Aricept) 10 mg PO HS [facility] PRN Reason: Protocol Last Admin: 06/27/17 21:40 Dose: 10 mg Ferrous Gluconate (Fergon) 324 mg PO TID [facility] PRN Reason: Protocol Last Admin: 06/28/17 14:23 Dose: 324 mg Furosemide (Lasix) 20 mg PO DAILY [facility] Meropenem 500 mg/ Sodium (Chloride) 50 mls @ 100 mls/hr IVPB Q8 [facility] PRN Reason: Protocol Stop: 07/04/17 06:01 Last Admin: 06/28/17 14:23 Dose: 100 mls/hr Insulin Human Regular (Humulin R Low) 0 units SC ACHS [facility] PRN Reason: Protocol Last Admin: 06/28/17 12:15 Dose: Not Given Metoprolol Tartrate (Lopressor) 25 mg PO 0800,1800 [facility] PRN Reason: Protocol Last Admin: 06/28/17 07:59 Dose: 25 mg Ondansetron HCl (Zofran Inj) 4 mg IVP Q4H PRN; Protocol PRN Reason: Nausea/Vomiting Pantoprazole Sodium (Protonix Ec Tab) 40 mg PO 0600 [facility] PRN Reason: Protocol Last Admin: 06/28/17 05:52 Dose: 40 mg Sodium Bicarbonate (Sodium Bicarbonate Tab) 650 mg PO BID [facility] Last Admin: 06/28/17 10:21 Dose: 650 mg Tramadol HCl (Ultram) 50 mg PO Q8H PRN; Protocol PRN Reason: Pain, moderate (4-7) Last Admin: 06/28/17 06:00 Dose: 50 mg Vitamin B Complex/Vit C/Folic Acid (Nephro-Haider) 1 tab PO 0800 [facility] PRN Reason: Protocol Last Admin: 06/28/17 08:00 Dose: 1 tab - Labs Labs: 06/28/17 06:45 06/28/17 06:45
--- NOTE | 2017-06-28 21:45 | CP.PCM.PN ---
Subjective - Date & Time of Evaluation Date of Evaluation: 06/28/17 Time of Evaluation: 11:55 - Subjective Subjective: No abdominal pain, no nausea, no fevers. Objective - Vital Signs/Intake and Output Vital Signs (last 24 hours): Temp Pulse Resp BP Pulse Ox 97.8 F 64 18 107/60 100 06/28/17 17:36 06/28/17 17:36 06/28/17 17:36 06/28/17 17:36 06/28/17 17:36 - Medications Medications: Current Medications Alprazolam (Xanax) 0.5 mg PO BID PRN; Protocol PRN Reason: Anxiety Last Admin: 06/27/17 10:10 Dose: 0.5 mg Apixaban (Eliquis) 2.5 mg PO BID [facility] PRN Reason: Protocol Last Admin: 06/28/17 17:02 Dose: 2.5 mg Aspirin (Aspirin Chewable) 81 mg PO 0800 [facility] PRN Reason: Protocol Atorvastatin Calcium (Lipitor) 20 mg PO DIN [facility] PRN Reason: Protocol Last Admin: 06/28/17 17:02 Dose: 20 mg Calcium/Vitamin D (Oscal-D 250 Mg-125 Units Tab) 1 tab PO BID [facility] Last Admin: 06/28/17 17:03 Dose: 1 tab Diltiazem HCl (Cardizem Cd) 180 mg PO DAILY [facility] PRN Reason: Protocol Last Admin: 06/28/17 10:22 Dose: 180 mg Donepezil HCl (Aricept) 10 mg PO HS [facility] PRN Reason: Protocol Last Admin: 06/27/17 21:40 Dose: 10 mg Ferrous Gluconate (Fergon) 324 mg PO TID [facility] PRN Reason: Protocol Last Admin: 06/28/17 17:02 Dose: 324 mg Furosemide (Lasix) 20 mg PO DAILY [facility] Last Admin: 06/28/17 17:02 Dose: 20 mg Meropenem 500 mg/ Sodium (Chloride) 50 mls @ 100 mls/hr IVPB Q8 [facility] PRN Reason: Protocol Stop: 07/04/17 06:01 Last Admin: 06/28/17 14:23 Dose: 100 mls/hr Insulin Human Regular (Humulin R Low) 0 units SC ACHS [facility] PRN Reason: Protocol Last Admin: 06/28/17 17:01 Dose: Not Given Metoprolol Tartrate (Lopressor) 25 mg PO 0800,1800 [facility] PRN Reason: Protocol Last Admin: 06/28/17 17:03 Dose: 25 mg Ondansetron HCl (Zofran Inj) 4 mg IVP Q4H PRN; Protocol PRN Reason: Nausea/Vomiting Pantoprazole Sodium (Protonix Ec Tab) 40 mg PO 0600 [facility] PRN Reason: Protocol Last Admin: 06/28/17 05:52 Dose: 40 mg Sodium Bicarbonate (Sodium Bicarbonate Tab) 650 mg PO BID [facility] Last Admin: 06/28/17 17:03 Dose: 650 mg Tramadol HCl (Ultram) 50 mg PO Q8H PRN; Protocol PRN Reason: Pain, moderate (4-7) Last Admin: 06/28/17 18:43 Dose: 50 mg Vitamin B Complex/Vit C/Folic Acid (Nephro-Haider) 1 tab PO 0800 [facility] PRN Reason: Protocol Last Admin: 06/28/17 08:00 Dose: 1 tab - Labs Labs: 06/28/17 06:45 06/28/17 06:45 - Constitutional Appears: Non-toxic, Chronically Ill - Head Exam Head Exam: NORMAL INSPECTION - Neck Exam Neck Exam: absent: Meningismus - Respiratory Exam Respiratory Exam: Decreased Breath Sounds - Cardiovascular Exam Cardiovascular Exam: +S1, +S2 - GI/Abdominal Exam GI & Abdominal Exam: Soft. absent: Tenderness Assessment and Plan - Assessment and Plan (Free Text) Plan: Assessment Severe sepsis R/O intra-abdominal infection atrial fibrillation COPD CAD chronic CHF renal cell cancer S/P nephrectomy lung cancer S/P lobectomy anxiety dementia Plan continue Merrem day 7 to complete 7 days of therapy; blood cx have been negative - will d/c after today will continue to monitor clinically
[2017-06-29] MEDS: Meropenem 500 MG in Sodium Chloride 0.9% 50 ML IVPB SCH (05:32)
[2017-06-29] MEDS: Pantoprazole 40 mg EC Tab PO SCH (05:33)
[2017-06-29] MEDS: Insulin Reg-LOW-Coverage SC SCH ×4 (06:29→21:50)
[2017-06-29 07:07] LABS: HEMOGLOBIN 9.1 g/dL (12.0-16.0); MEAN CELL VOLUME 86.4 fl (80.0-105.0); MEAN CORPUSCULAR HEMOGLOBIN 26.9 pg (25.0-35.0); MEAN CORPUSCULAR HGB CONC 31.2 g/dl (31.0-37.0); MEAN PLATELET VOLUME 10.3 fl (7.0-11.0); RBC 3.38 10^6/uL (3.5-6.1); RED CELL DISTRIBUTION WIDTH 15.3 % (11.5-14.5); WHITE BLOOD COUNT 6.5 10^3/ul (4.5-11.0)
[2017-06-29 07:15] LABS: ALBUMIN 3.2 g/dL (3.0-4.8)
[2017-06-29] MEDS: Multivitamin Vitamin B Complex (Nephro-Vite) Tab PO SCH (08:17)
[2017-06-29] MEDS: diltiaZEM 180 mg/24 Hours CD Cap PO SCH (10:31)
[2017-06-29] MEDS: Calcium-Vit D 250 mg-125 Units Tab UD PO SCH ×2 (10:32→17:39)
--- NOTE | 2017-06-29 11:22 | PN ---
DATE: SUBJECTIVE: I saw her resting comfortably in bed in the TCU. She is alert. She ate her breakfast. She is doing well on therapy. She is in good spirits. MEDICATIONS: She is on Aricept, aspirin, Cardizem, Eliquis, Fergon, insulin, Lasix, Lipitor, Lopressor, Merrem IV, Nephro-Haider, Os-Momo, Protonix, sodium bicarb, Ultram, Xanax and Zofran. VITAL SIGNS: She has a 97.8 temp, 64 pulse, 107/60 blood pressure, 18 respiratory rate and 100% O2 sat on 2 L nasal cannula. HEENT: Head is atraumatic, normocephalic. HEART: Regular rate. LUNGS: Clear to auscultation. ABDOMEN: Soft. EXTREMITIES: No edema. She looks really well. LABORATORY DATA: She has a 6.5 white count, 9.1 hemoglobin, 29.2 hematocrit with 226 platelets. 139 sodium, potassium 4.4, BUN 36, creatinine 1.5, GFR is 33, sugar is 91, calcium is 9, total bili is 0.2, AST is 41, ALT is 37, alk phos 57, total protein is 6.5. ASSESSMENT AND PLAN: She is being seen by Infectious Disease, Renal, Physical Therapy. Overall, I am very happy with her. I think she is definitely improving. No more abdominal pain. She had severe sepsis, atrial fibrillation, chronic obstructive pulmonary disease, coronary artery disease, chronic congestive heart failure, anxiety. A couple of more days of Merrem and then we could discharge her home. We will check her labs tomorrow. Marco Farris DO
--- NOTE | 2017-06-29 16:58 | CP.PCM.PN ---
Subjective - Date & Time of Evaluation Date of Evaluation: 06/29/17 Time of Evaluation: 16:57 - Subjective Subjective: Nephrology Consultation Note: Assessment: stable acute gastroenteritis and pancreatitis: improved PATRICIA likely pre-renal state as evident by GI fluid loss, hemoconcentration with associated hyperkalemia and acidosis: improved Chronic Kidney Disease Stage 3 (N18.3) with 322 mg proteinuria possibly due to HTN, age related decline, and s/p Rt nephrectomy due to hx of RCC Hypertension controlled (I12.9) Vit D insufficiency with secondary hyperparathyroidism, anemia hx of severe pulmonary HTN (RVSP 81 mm Hg) and moderate to severe LVH hx of dementia bradycardia s/p PPM, A fib Plan no acute need of renal replacement therapy at this time no ACEI or ARB due to recurrent AKIs and hyperkalemic tendency. maintain hemodynamic stable. Low K Diet pt on meds to control A fib rate anemia management: PRBC as needed, continue with iron 324 mg TID and MVI. dose aransep 40 mcg 06/25/17 continue with sodium bicarb 650 mg bid and Oscal-D 1 tab bid resume home dose of lasix 20 mg Dose meds/antibiotics for reduced GFR. Avoid fleets enema/magnesium based laxatives. Avoid nephrotoxins/NSAIDs/IV iodinated contrast (unless emergent) Further work up as per primary team Thanks for allowing me to participate in care of your patient. will follow with you. Please call if any Qs. Dr Jt Lemon Office: [phone] CC: back pain Reason for consult: CKD and PATRICIA HPI: Pt is a 81 y/o F with hx of hypertension (20 years) , renal cell cancer s/ p unilateral total nephrectomy, CKD stage 3 with baseline cr 1.4-1.7 since 2017 but intermittent and frequent episodes of PATRICIA, chronic anemia, A fib, bradycardia s/p PPM initially admitted with elevated lipase, gastroenteritis and PATRICIA. Renal function improved with IVF, pt d/c to rehab and renal consult for further management of PATRICIA/CKD. pt feels better. improved GI symptoms. reports back pain yesterday which is also better now ROS: denies CP/SOB. improved nausea/vomiting/pain abdomen denies urine complaints. all other negative except as in HPI. feels better Physical Examination: General Appearance: Comfortable, in no acute respiratory distress, co-operative Vitals reviewed and noted as below Head; Atraumatic, normocephalic ENT: no ulcers no thrush. Tongue is midline. Oropharynx: no rash or ulcers. EYES: Pupils are equal, round and reactive to light accommodation. Eye muscles and extraocular movement intact. Sclera is anicteric. Neck; supple no lymphadenopathy, no thyromegaly or bruit Lungs: Normal respiratory rate/effort. Breath sounds bilateral equal and clear Heart: normal rate. s1s2 normal. No rub or gallop. has PPM and A fib Extremities: trace edema. No varicose veins Neurological: Patient is alert, awake and oriented x3 No other focal deficit. Strength bilateral appropriate and equal Skin: Warm and dry. Normal turgor. No rash. Palpitation: Normal elasticity for age Abdomen: Abdomen is soft. Bowel sounds +. There is no abdominal tenderness, no guarding/rigidity or organomegaly Psych: limited insight and has normal affect/mood MSK: no joint tenderness or swelling. Digits and nails normal, no deformity : kidney or bladder not palpable Labs/imaging/EKG reviewed. Past medical history, past surgical history,social history, allergy reviewed and noted as below FAMILy HX; no hx of CKD. non contributory work up: CT 2018: s/p Rt nephrectomy, left kidney unremarkable Vit D 35 PTH 70 TSAT 10% Ferritin 30 Objective - Vital Signs/Intake and Output Vital Signs (last 24 hours): Temp Pulse Resp BP Pulse Ox 98.1 F 90 18 107/57 L 98 06/29/17 11:06 06/29/17 11:06 06/29/17 11:06 06/29/17 11:06 06/29/17 11:06 - Medications Medications: Current Medications Alprazolam (Xanax) 0.5 mg PO BID PRN; Protocol PRN Reason: Anxiety Last Admin: 06/28/17 23:38 Dose: 0.5 mg Apixaban (Eliquis) 2.5 mg PO BID [facility] PRN Reason: Protocol Last Admin: 06/29/17 10:31 Dose: 2.5 mg Aspirin (Aspirin Chewable) 81 mg PO 0800 [facility] PRN Reason: Protocol Last Admin: 06/29/17 08:17 Dose: 81 mg Atorvastatin Calcium (Lipitor) 20 mg PO DIN [facility] PRN Reason: Protocol Last Admin: 06/28/17 17:02 Dose: 20 mg Calcium/Vitamin D (Oscal-D 250 Mg-125 Units Tab) 1 tab PO BID [facility] Last Admin: 06/29/17 10:32 Dose: 1 tab Diltiazem HCl (Cardizem Cd) 180 mg PO DAILY [facility] PRN Reason: Protocol Last Admin: 06/29/17 10:31 Dose: 180 mg Donepezil HCl (Aricept) 10 mg PO HS [facility] PRN Reason: Protocol Last Admin: 06/28/17 21:44 Dose: 10 mg Ferrous Gluconate (Fergon) 324 mg PO TID [facility] PRN Reason: Protocol Last Admin: 06/29/17 15:05 Dose: 324 mg Furosemide (Lasix) 20 mg PO DAILY [facility] Last Admin: 06/29/17 10:32 Dose: 20 mg Insulin Human Regular (Humulin R Low) 0 units SC ACHS [facility] PRN Reason: Protocol Last Admin: 06/29/17 12:17 Dose: Not Given Metoprolol Tartrate (Lopressor) 25 mg PO 0800,1800 [facility] PRN Reason: Protocol Last Admin: 06/29/17 08:17 Dose: 25 mg Ondansetron HCl (Zofran Inj) 4 mg IVP Q4H PRN; Protocol PRN Reason: Nausea/Vomiting Pantoprazole Sodium (Protonix Ec Tab) 40 mg PO 0600 [facility] PRN Reason: Protocol Last Admin: 06/29/17 05:33 Dose: 40 mg Sodium Bicarbonate (Sodium Bicarbonate Tab) 650 mg PO BID [facility] Last Admin: 06/29/17 10:32 Dose: 650 mg Tramadol HCl (Ultram) 50 mg PO Q8H PRN; Protocol PRN Reason: Pain, moderate (4-7) Last Admin: 06/29/17 04:17 Dose: 50 mg Vitamin B Complex/Vit C/Folic Acid (Nephro-Haider) 1 tab PO 0800 [facility] PRN Reason: Protocol Last Admin: 06/29/17 08:17 Dose: 1 tab - Labs Labs: 06/29/17 06:15 06/29/17 06:15
[2017-06-30] MEDS: Pantoprazole 40 mg EC Tab PO SCH (05:12)
[2017-06-30] MEDS: Insulin Reg-LOW-Coverage SC SCH ×4 (06:29→21:50)
[2017-06-30 07:11] LABS: HEMOGLOBIN 9.1 g/dL (12.0-16.0); MEAN CELL VOLUME 85.8 fl (80.0-105.0); MEAN CORPUSCULAR HEMOGLOBIN 26.9 pg (25.0-35.0); MEAN CORPUSCULAR HGB CONC 31.4 g/dl (31.0-37.0); MEAN PLATELET VOLUME 10.1 fl (7.0-11.0); RBC 3.38 10^6/uL (3.5-6.1); RED CELL DISTRIBUTION WIDTH 15.3 % (11.5-14.5); WHITE BLOOD COUNT 5.9 10^3/ul (4.5-11.0)
[2017-06-30 07:37] LABS: ALBUMIN 3.2 g/dL (3.0-4.8); CALCIUM 8.7 mg/dL (8.4-10.5)
[2017-06-30] MEDS: Multivitamin Vitamin B Complex (Nephro-Vite) Tab PO SCH (08:03)
--- NOTE | 2017-06-30 09:51 | PN ---
DATE: 06/29/2017 PHYSICAL EXAMINATION: VITAL SIGNS: Temperature is 98, blood pressure is 105/50, respiratory rate of 18, heart rate of 64. HEENT: Unremarkable. NECK: Supple. LUNGS: Have decreased breath sounds. HEART: Normal S1 and S2. ABDOMEN: Soft and nontender. LABORATORY DATA: Reveals a white count of 6.5, hemoglobin of 9, platelets of 226. Chemistries reveals a BUN of 36, creatinine of 1.5. Microbiology is noted. Review of orders revealed the patient is off of antibiotics. ASSESSMENT AND PLAN: This is an 81-year-old with severe sepsis, probable intraabdominal infection with atrial fibrillation, chronic obstructive lung disease, coronary artery disease, chronic congestive heart failure, renal cell cancer, status post nephrectomy; lung cancer, lobectomy; anxiety, dementia; currently off of antibiotics, doing well. The patient has a risk for developing nasocomial infections. Jenaro Farias MD
[2017-06-30] MEDS: Calcium-Vit D 250 mg-125 Units Tab UD PO SCH ×2 (10:03→17:31)
[2017-06-30] MEDS: diltiaZEM 180 mg/24 Hours CD Cap PO SCH (10:22)
--- NOTE | 2017-06-30 11:13 | PN ---
DATE: 06/29/2017 SUBJECTIVE: I saw her resting comfortably this morning in bed. She is doing well. She is trying physical therapy. She is eating well. She is on Aricept, aspirin, Cardizem, Eliquis, Fergon, Lasix, Lipitor, Lopressor, Nephro-Haider, vitamin D, Protonix, sodium bicarbonate, Xanax and Zofran. She is off the antibiotics at this time. OBJECTIVE VITAL SIGNS: She has a 98.6 temperature, 90 pulse, 102/69 blood pressure, 18 respiratory rate, 95% O2 saturation on room air. HEENT: Head is atraumatic, normocephalic. HEART: Regular rate. LUNGS: Clear to auscultation. ABDOMEN: Soft. EXTREMITIES: No edema. NEUROLOGIC: She has been doing well, in good spirits. DATA: She has a 5.9 white count, 9.1 hemoglobin, 29 hematocrit with 240 platelets. She has 140 sodium, potassium 4.5, BUN 40, creatinine 1.5, GFR is 33. Sugar is 91. Calcium 8.7, total bili is 0.1. AST is 58, ALT is 50, alkaline phosphatase is 60, total protein 6.5. I discussed with her to drink more water, do very well with the physical therapy and hopefully, next day or two, she will be discharged. I will continue with aggressive treatment and care in the TCU. Marco Farris DO
--- NOTE | 2017-06-30 14:58 | CP.PCM.PN ---
Subjective - Date & Time of Evaluation Date of Evaluation: 06/30/17 Time of Evaluation: 14:57 - Subjective Subjective: Nephrology Consultation Note: Assessment: stable acute gastroenteritis and pancreatitis: improved PATRICIA likely pre-renal state as evident by GI fluid loss, hemoconcentration with associated hyperkalemia and acidosis: improved Chronic Kidney Disease Stage 3 (N18.3) with 322 mg proteinuria possibly due to HTN, age related decline, and s/p Rt nephrectomy due to hx of RCC Hypertension controlled (I12.9) Vit D insufficiency with secondary hyperparathyroidism, anemia hx of severe pulmonary HTN (RVSP 81 mm Hg) and moderate to severe LVH hx of dementia bradycardia s/p PPM, A fib Plan no acute need of renal replacement therapy at this time no ACEI or ARB due to recurrent AKIs and hyperkalemic tendency. maintain hemodynamic stable. Low K Diet pt on meds to control A fib rate anemia management: PRBC as needed, continue with iron 324 mg TID and MVI. dose aransep 40 mcg 06/25/17 d/codium bicarb 650 mg bid and continue with Oscal-D 1 tab bid lowered lasix 20 mg every other day due to low BP Dose meds/antibiotics for reduced GFR. Avoid fleets enema/magnesium based laxatives. Avoid nephrotoxins/NSAIDs/IV iodinated contrast (unless emergent) Further work up as per primary team Thanks for allowing me to participate in care of your patient. will follow with you. Please call if any Qs. Dr Jt Lemon Office: [phone] CC: back pain Reason for consult: CKD and PATRICIA HPI: Pt is a 81 y/o F with hx of hypertension (20 years) , renal cell cancer s/ p unilateral total nephrectomy, CKD stage 3 with baseline cr 1.4-1.7 since 2017 but intermittent and frequent episodes of PATRICIA, chronic anemia, A fib, bradycardia s/p PPM initially admitted with elevated lipase, gastroenteritis and PATRICIA. Renal function improved with IVF, pt d/c to rehab and renal consult for further management of PATRICIA/CKD. pt feels better. improved GI symptoms. reports back pain yesterday which is also better now ROS: denies CP/SOB. improved nausea/vomiting/pain abdomen denies urine complaints. all other negative except as in HPI. feels better Physical Examination: General Appearance: Comfortable, in no acute respiratory distress, co-operative Vitals reviewed and noted as below Head; Atraumatic, normocephalic ENT: no ulcers no thrush. Tongue is midline. Oropharynx: no rash or ulcers. EYES: Pupils are equal, round and reactive to light accommodation. Eye muscles and extraocular movement intact. Sclera is anicteric. Neck; supple no lymphadenopathy, no thyromegaly or bruit Lungs: Normal respiratory rate/effort. Breath sounds bilateral equal and clear Heart: normal rate. s1s2 normal. No rub or gallop. has PPM and A fib Extremities: trace edema. No varicose veins Neurological: Patient is alert, awake and oriented x3 No other focal deficit. Strength bilateral appropriate and equal Skin: Warm and dry. Normal turgor. No rash. Palpitation: Normal elasticity for age Abdomen: Abdomen is soft. Bowel sounds +. There is no abdominal tenderness, no guarding/rigidity or organomegaly Psych: limited insight and has normal affect/mood MSK: no joint tenderness or swelling. Digits and nails normal, no deformity : kidney or bladder not palpable Labs/imaging/EKG reviewed. Past medical history, past surgical history,social history, allergy reviewed and noted as below FAMILy HX; no hx of CKD. non contributory work up: CT 2018: s/p Rt nephrectomy, left kidney unremarkable Vit D 35 PTH 70 TSAT 10% Ferritin 30 Objective - Vital Signs/Intake and Output Vital Signs (last 24 hours): Temp Pulse Resp BP Pulse Ox 98.6 F 63 18 99/57 L 95 06/29/17 17:12 06/30/17 10:22 06/29/17 17:12 06/30/17 14:20 06/29/17 17:12 - Medications Medications: Current Medications Alprazolam (Xanax) 0.5 mg PO BID PRN; Protocol PRN Reason: Anxiety Last Admin: 06/30/17 12:04 Dose: 0.5 mg Apixaban (Eliquis) 2.5 mg PO BID [facility] PRN Reason: Protocol Last Admin: 06/30/17 10:02 Dose: 2.5 mg Aspirin (Aspirin Chewable) 81 mg PO 0800 [facility] PRN Reason: Protocol Last Admin: 06/30/17 08:02 Dose: 81 mg Atorvastatin Calcium (Lipitor) 20 mg PO DIN [facility] PRN Reason: Protocol Last Admin: 06/29/17 17:36 Dose: 20 mg Calcium/Vitamin D (Oscal-D 250 Mg-125 Units Tab) 1 tab PO BID [facility] Last Admin: 06/30/17 10:03 Dose: 1 tab Diltiazem HCl (Cardizem Cd) 180 mg PO DAILY [facility] PRN Reason: Protocol Last Admin: 06/30/17 10:22 Dose: Not Given Donepezil HCl (Aricept) 10 mg PO HS [facility] PRN Reason: Protocol Last Admin: 06/29/17 21:22 Dose: 10 mg Ferrous Gluconate (Fergon) 324 mg PO TID [facility] PRN Reason: Protocol Last Admin: 06/30/17 14:22 Dose: 324 mg Furosemide (Lasix) 20 mg PO Q2D [facility] Insulin Human Regular (Humulin R Low) 0 units SC ACHS [facility] PRN Reason: Protocol Last Admin: 06/30/17 11:29 Dose: Not Given Metoprolol Tartrate (Lopressor) 25 mg PO 0800,1800 [facility] PRN Reason: Protocol Last Admin: 06/30/17 08:03 Dose: 25 mg Ondansetron HCl (Zofran Inj) 4 mg IVP Q4H PRN; Protocol PRN Reason: Nausea/Vomiting Pantoprazole Sodium (Protonix Ec Tab) 40 mg PO 0600 [facility] PRN Reason: Protocol Last Admin: 06/30/17 05:12 Dose: 40 mg Tramadol HCl (Ultram) 50 mg PO Q8H PRN; Protocol PRN Reason: Pain, moderate (4-7) Last Admin: 06/30/17 05:22 Dose: 50 mg Vitamin B Complex/Vit C/Folic Acid (Nephro-Haider) 1 tab PO 0800 [facility] PRN Reason: Protocol Last Admin: 06/30/17 08:03 Dose: 1 tab - Labs Labs: 06/30/17 06:50 06/30/17 06:50
[2017-06-30 16:38] VITALS: O2SAT 100
--- NOTE | 2017-06-30 22:20 | CP.PCM.PN ---
Subjective - Date & Time of Evaluation Date of Evaluation: 06/30/17 Time of Evaluation: 12:25 - Subjective Subjective: No fevers, not in distress, no abdominal pain. Objective - Vital Signs/Intake and Output Vital Signs (last 24 hours): Temp Pulse Resp BP Pulse Ox 97.4 F L 64 18 101/57 L 100 06/30/17 16:00 06/30/17 17:14 06/30/17 16:00 06/30/17 17:14 06/30/17 16:00 - Medications Medications: Current Medications Alprazolam (Xanax) 0.5 mg PO BID PRN; Protocol PRN Reason: Anxiety Last Admin: 06/30/17 21:49 Dose: 0.5 mg Apixaban (Eliquis) 2.5 mg PO BID [facility] PRN Reason: Protocol Last Admin: 06/30/17 17:31 Dose: 2.5 mg Aspirin (Aspirin Chewable) 81 mg PO 0800 [facility] PRN Reason: Protocol Last Admin: 06/30/17 08:02 Dose: 81 mg Atorvastatin Calcium (Lipitor) 20 mg PO DIN [facility] PRN Reason: Protocol Last Admin: 06/30/17 17:31 Dose: 20 mg Calcium/Vitamin D (Oscal-D 250 Mg-125 Units Tab) 1 tab PO BID [facility] Last Admin: 06/30/17 17:31 Dose: 1 tab Diltiazem HCl (Cardizem Cd) 180 mg PO DAILY [facility] PRN Reason: Protocol Last Admin: 06/30/17 10:22 Dose: Not Given Donepezil HCl (Aricept) 10 mg PO HS [facility] PRN Reason: Protocol Last Admin: 06/30/17 21:46 Dose: 10 mg Ferrous Gluconate (Fergon) 324 mg PO TID [facility] PRN Reason: Protocol Last Admin: 06/30/17 17:31 Dose: 324 mg Furosemide (Lasix) 20 mg PO Q2D [facility] Insulin Human Regular (Humulin R Low) 0 units SC ACHS [facility] PRN Reason: Protocol Last Admin: 06/30/17 21:50 Dose: Not Given Metoprolol Tartrate (Lopressor) 25 mg PO 0800,1800 [facility] PRN Reason: Protocol Last Admin: 06/30/17 17:14 Dose: Not Given Ondansetron HCl (Zofran Inj) 4 mg IVP Q4H PRN; Protocol PRN Reason: Nausea/Vomiting Pantoprazole Sodium (Protonix Ec Tab) 40 mg PO 0600 [facility] PRN Reason: Protocol Last Admin: 06/30/17 05:12 Dose: 40 mg Tramadol HCl (Ultram) 50 mg PO Q8H PRN; Protocol PRN Reason: Pain, moderate (4-7) Last Admin: 06/30/17 19:30 Dose: 50 mg Vitamin B Complex/Vit C/Folic Acid (Nephro-Haider) 1 tab PO 0800 [facility] PRN Reason: Protocol Last Admin: 06/30/17 08:03 Dose: 1 tab - Labs Labs: 06/30/17 06:50 06/30/17 06:50 - Constitutional Appears: Chronically Ill - Head Exam Head Exam: NORMAL INSPECTION - Respiratory Exam Respiratory Exam: Decreased Breath Sounds - Cardiovascular Exam Cardiovascular Exam: +S1, +S2 - GI/Abdominal Exam GI & Abdominal Exam: Soft. absent: Tenderness Assessment and Plan - Assessment and Plan (Free Text) Plan: Assessment S/P Severe sepsis R/O intra-abdominal infection atrial fibrillation COPD CAD chronic CHF renal cell cancer S/P nephrectomy lung cancer S/P lobectomy anxiety dementia Plan completed 7 days of antibiotics - will monitor off antibiotics since she is at risk for nosocomial infections
[2017-07-01] MEDS: Pantoprazole 40 mg EC Tab PO SCH (05:47)
[2017-07-01] MEDS: Insulin Reg-LOW-Coverage SC SCH ×4 (06:49→21:51)
[2017-07-01] MEDS: Multivitamin Vitamin B Complex (Nephro-Vite) Tab PO SCH (08:48)
[2017-07-01] MEDS: diltiaZEM 180 mg/24 Hours CD Cap PO SCH (10:41)
[2017-07-01] MEDS: Calcium-Vit D 250 mg-125 Units Tab UD PO SCH ×2 (10:42→17:29)
--- NOTE | 2017-07-01 11:11 | PN ---
DATE: SUBJECTIVE: I saw Sarah resting comfortably in bed. She slept well. She is doing well on physical therapy. She is walking better. She is on Aricept, aspirin, Cardizem, Eliquis, Fergon, insulin, Lasix, Lipitor, Lopressor, Nephro-Haider, Os-Momo, Protonix, Ultram, Xanax and Zofran. OBJECTIVE VITAL SIGNS: She has 97.4 temperature, 68 pulse, 131/61 blood pressure, 18 respiratory rate, 100% O2 saturation on oxygen. HEENT: Head is atraumatic, normocephalic. HEART: Regular rate. LUNGS: Clear to auscultation. ABDOMEN: Soft. EXTREMITIES: No edema. LABORATORY DATA: She has 5.9 white count, 9.1 hemoglobin, 29 hematocrit with 240 platelets. Sodium 140, potassium 4.5, BUN 40, creatinine 1.5, last blood sugar was 92. Total bili is 0.1. AST is 58, ALT is 50, alkaline phosphatase is 60. She is being seen by Infectious Disease and Renal. I understand the plan is for her to be discharged Wednesday, tomorrow, which is good. She is in no acute distress. No problems. She was here for status post severe sepsis, rule out intraabdominal infection; atrial fibrillation; COPD; CAD; chronic CHF; renal cell cancer, status post nephrectomy; lung cancer, status post lobectomy; anxiety; dementia. Hopefully, she will be home soon. I will follow up in the outpatient with house calls and she should be hopefully being discharged tomorrow. Marco Farris DO
--- NOTE | 2017-07-01 11:56 | CP.PCM.PN ---
Subjective - Date & Time of Evaluation Date of Evaluation: 07/01/17 Time of Evaluation: 11:56 - Subjective Subjective: Nephrology Consultation Note: Assessment: stable acute gastroenteritis and pancreatitis: improved PATRICIA likely pre-renal state as evident by GI fluid loss, hemoconcentration with associated hyperkalemia and acidosis: improved Chronic Kidney Disease Stage 3 (N18.3) with 322 mg proteinuria possibly due to HTN, age related decline, and s/p Rt nephrectomy due to hx of RCC Hypertension controlled (I12.9) Vit D insufficiency with secondary hyperparathyroidism, anemia hx of severe pulmonary HTN (RVSP 81 mm Hg) and moderate to severe LVH hx of dementia bradycardia s/p PPM, A fib Plan no acute need of renal replacement therapy at this time no ACEI or ARB due to recurrent AKIs and hyperkalemic tendency. maintain hemodynamic stable. Low K Diet pt on meds to control A fib rate anemia management: PRBC as needed, continue with iron 324 mg TID and MVI. dose aransep 40 mcg 06/25/17 continue with Oscal-D 1 tab bid lowered lasix 20 mg every other day due to low BP Dose meds/antibiotics for reduced GFR. Avoid fleets enema/magnesium based laxatives. Avoid nephrotoxins/NSAIDs/IV iodinated contrast (unless emergent) Further work up as per primary team Thanks for allowing me to participate in care of your patient. will follow with you. Please call if any Qs. d/w team and sister Dr Jt Lemon Office: [phone] CC: back pain Reason for consult: CKD and PATRICIA HPI: Pt is a 81 y/o F with hx of hypertension (20 years) , renal cell cancer s/ p unilateral total nephrectomy, CKD stage 3 with baseline cr 1.4-1.7 since 2017 but intermittent and frequent episodes of PATRICIA, chronic anemia, A fib, bradycardia s/p PPM initially admitted with elevated lipase, gastroenteritis and PATRICIA. Renal function improved with IVF, pt d/c to rehab and renal consult for further management of PATRICIA/CKD. pt feels better. improved GI symptoms. reports back pain yesterday which is also better now ROS: denies CP/SOB. improved nausea/vomiting/pain abdomen denies urine complaints. all other negative except as in HPI. feels better Physical Examination: General Appearance: Comfortable, in no acute respiratory distress, co-operative Vitals reviewed and noted as below Head; Atraumatic, normocephalic ENT: no ulcers no thrush. Tongue is midline. Oropharynx: no rash or ulcers. EYES: Pupils are equal, round and reactive to light accommodation. Eye muscles and extraocular movement intact. Sclera is anicteric. Neck; supple no lymphadenopathy, no thyromegaly or bruit Lungs: Normal respiratory rate/effort. Breath sounds bilateral equal and clear Heart: normal rate. s1s2 normal. No rub or gallop. has PPM and A fib Extremities: trace edema. No varicose veins Neurological: Patient is alert, awake and oriented x3 No other focal deficit. Strength bilateral appropriate and equal Skin: Warm and dry. Normal turgor. No rash. Palpitation: Normal elasticity for age Abdomen: Abdomen is soft. Bowel sounds +. There is no abdominal tenderness, no guarding/rigidity or organomegaly Psych: limited insight and has normal affect/mood MSK: no joint tenderness or swelling. Digits and nails normal, no deformity : kidney or bladder not palpable Labs/imaging/EKG reviewed. Past medical history, past surgical history,social history, allergy reviewed and noted as below FAMILy HX; no hx of CKD. non contributory work up: CT 2018: s/p Rt nephrectomy, left kidney unremarkable Vit D 35 PTH 70 TSAT 10% Ferritin 30 Objective - Vital Signs/Intake and Output Vital Signs (last 24 hours): Temp Pulse Resp BP Pulse Ox 97.4 F L 68 18 126/67 100 06/30/17 16:00 07/01/17 08:10 06/30/17 16:00 07/01/17 10:42 06/30/17 16:00 - Medications Medications: Current Medications Alprazolam (Xanax) 0.5 mg PO BID PRN; Protocol PRN Reason: Anxiety Last Admin: 07/01/17 08:17 Dose: 0.5 mg Apixaban (Eliquis) 2.5 mg PO BID [facility] PRN Reason: Protocol Last Admin: 07/01/17 10:41 Dose: 2.5 mg Aspirin (Aspirin Chewable) 81 mg PO 0800 [facility] PRN Reason: Protocol Last Admin: 07/01/17 08:04 Dose: 81 mg Atorvastatin Calcium (Lipitor) 20 mg PO DIN [facility] PRN Reason: Protocol Last Admin: 06/30/17 17:31 Dose: 20 mg Calcium/Vitamin D (Oscal-D 250 Mg-125 Units Tab) 1 tab PO BID [facility] Last Admin: 07/01/17 10:42 Dose: 1 tab Diltiazem HCl (Cardizem Cd) 180 mg PO DAILY [facility] PRN Reason: Protocol Last Admin: 07/01/17 10:41 Dose: 180 mg Donepezil HCl (Aricept) 10 mg PO HS [facility] PRN Reason: Protocol Last Admin: 06/30/17 21:46 Dose: 10 mg Ferrous Gluconate (Fergon) 324 mg PO TID [facility] PRN Reason: Protocol Last Admin: 07/01/17 10:41 Dose: 324 mg Furosemide (Lasix) 20 mg PO Q2D [facility] Last Admin: 07/01/17 10:42 Dose: 20 mg Insulin Human Regular (Humulin R Low) 0 units SC ACHS [facility] PRN Reason: Protocol Last Admin: 07/01/17 06:49 Dose: Not Given Metoprolol Tartrate (Lopressor) 25 mg PO 0800,1800 [facility] PRN Reason: Protocol Last Admin: 07/01/17 08:10 Dose: 25 mg Ondansetron HCl (Zofran Inj) 4 mg IVP Q4H PRN; Protocol PRN Reason: Nausea/Vomiting Pantoprazole Sodium (Protonix Ec Tab) 40 mg PO 0600 [facility] PRN Reason: Protocol Last Admin: 07/01/17 05:47 Dose: 40 mg Tramadol HCl (Ultram) 50 mg PO Q8H PRN; Protocol PRN Reason: Pain, moderate (4-7) Last Admin: 06/30/17 19:30 Dose: 50 mg Vitamin B Complex/Vit C/Folic Acid (Nephro-Haider) 1 tab PO 0800 [facility] PRN Reason: Protocol Last Admin: 07/01/17 08:48 Dose: 1 tab - Labs Labs: 06/30/17 06:50 06/30/17 06:50
--- NOTE | 2017-07-01 22:37 | PN ---
DATE: 07/01/2017 SUBJECTIVE: The patient is in bed, in no acute distress. PHYSICAL EXAMINATION: VITAL SIGNS: Temperature is 97, blood pressure is 101/60, respiratory rate 18, heart rate of 82. HEENT: Unremarkable. NECK: Supple. LUNGS: Have decreased breath sounds. HEART: Normal S1, S2. ABDOMEN: Soft. LABORATORY EXAMINATION: Reveals a white count of 5.9, hemoglobin of 9, platelets of 240. BUN of 40, creatinine of 1.5. ASSESSMENT AND PLAN: This is an 81-year-old female with severe sepsis, intraabdominal infection, atrial fibrillation, chronic obstructive lung disease, chronic congestive heart failure, renal cell cancer, status post nephrectomy; lung cancer, lobectomy, anxiety, dementia. She has completed antibiotic therapy, currently off of antibiotics. Patient is at risk for developing nosocomial infections. Jenaro Farias MD
[2017-07-02] MEDS: Pantoprazole 40 mg EC Tab PO SCH (05:08)
[2017-07-02 06:23] VITALS: RESP 16; TEMP 98.3
[2017-07-02] MEDS: Insulin Reg-LOW-Coverage SC SCH (06:31)
[2017-07-02] MEDS: Multivitamin Vitamin B Complex (Nephro-Vite) Tab PO SCH (08:33)
[2017-07-02] MEDS: diltiaZEM 180 mg/24 Hours CD Cap PO SCH (10:33)
[2017-07-02 10:36] VITALS: BP 106/68; PULSE 78
[2017-07-02] MEDS: Calcium-Vit D 250 mg-125 Units Tab UD PO SCH (11:39)
--- NOTE | 2017-07-02 14:50 | CP.PCM.PN ---
Subjective - Date & Time of Evaluation Date of Evaluation: 07/02/17 Time of Evaluation: 14:50 - Subjective Subjective: Nephrology Consultation Note: Assessment: stable acute gastroenteritis and pancreatitis: improved PATRICIA likely pre-renal state as evident by GI fluid loss, hemoconcentration with associated hyperkalemia and acidosis: improved Chronic Kidney Disease Stage 3 (N18.3) with 322 mg proteinuria possibly due to HTN, age related decline, and s/p Rt nephrectomy due to hx of RCC Hypertension controlled (I12.9) Vit D insufficiency with secondary hyperparathyroidism, anemia hx of severe pulmonary HTN (RVSP 81 mm Hg) and moderate to severe LVH hx of dementia bradycardia s/p PPM, A fib Plan no acute need of renal replacement therapy at this time no ACEI or ARB due to recurrent AKIs and hyperkalemic tendency. maintain hemodynamic stable. Low K Diet pt on meds to control A fib rate anemia management: PRBC as needed, continue with iron 324 mg TID and MVI. dose aransep 40 mcg 06/25/17 continue with Oscal-D 1 tab bid lowered lasix 20 mg every other day due to low BP Dose meds/antibiotics for reduced GFR. Avoid fleets enema/magnesium based laxatives. Avoid nephrotoxins/NSAIDs/IV iodinated contrast (unless emergent) Further work up as per primary team pt stable for d/c from renal perspective when planned Thanks for allowing me to participate in care of your patient. will follow with you. Please call if any Qs. d/w team and sister Dr Jt Lemon Office: [phone] Reason for consult: CKD and PATRICIA HPI: Pt is a 81 y/o F with hx of hypertension (20 years) , renal cell cancer s/ p unilateral total nephrectomy, CKD stage 3 with baseline cr 1.4-1.7 since 2017 but intermittent and frequent episodes of PATRICIA, chronic anemia, A fib, bradycardia s/p PPM initially admitted with elevated lipase, gastroenteritis and PATRICIA. Renal function improved with IVF, pt d/c to rehab and renal consult for further management of PATRICIA/CKD. pt feels better. improved GI symptoms. reports back pain yesterday which is also better now ROS: denies CP/SOB. improved nausea/vomiting/pain abdomen denies urine complaints. all other negative except as in HPI. feels better Physical Examination: General Appearance: Comfortable, in no acute respiratory distress, co-operative Vitals reviewed and noted as below Head; Atraumatic, normocephalic ENT: no ulcers no thrush. Tongue is midline. Oropharynx: no rash or ulcers. EYES: Pupils are equal, round and reactive to light accommodation. Eye muscles and extraocular movement intact. Sclera is anicteric. Neck; supple no lymphadenopathy, no thyromegaly or bruit Lungs: Normal respiratory rate/effort. Breath sounds bilateral equal and clear Heart: normal rate. s1s2 normal. No rub or gallop. has PPM and A fib Extremities: trace edema. No varicose veins Neurological: Patient is alert, awake and oriented x3 No other focal deficit. Strength bilateral appropriate and equal Skin: Warm and dry. Normal turgor. No rash. Palpitation: Normal elasticity for age Abdomen: Abdomen is soft. Bowel sounds +. There is no abdominal tenderness, no guarding/rigidity or organomegaly Psych: limited insight and has normal affect/mood MSK: no joint tenderness or swelling. Digits and nails normal, no deformity : kidney or bladder not palpable Labs/imaging/EKG reviewed. Past medical history, past surgical history,social history, allergy reviewed and noted as below FAMILy HX; no hx of CKD. non contributory work up: CT 2018: s/p Rt nephrectomy, left kidney unremarkable Vit D 35 PTH 70 TSAT 10% Ferritin 30 Objective - Vital Signs/Intake and Output Vital Signs (last 24 hours): Temp Pulse Resp BP Pulse Ox 98.3 F 78 16 106/68 100 07/02/17 06:00 07/02/17 10:33 07/02/17 06:00 07/02/17 10:33 07/02/17 06:00 - Medications Medications: Current Medications Alprazolam (Xanax) 0.5 mg PO BID PRN; Protocol PRN Reason: Anxiety Last Admin: 07/02/17 08:36 Dose: 0.5 mg Apixaban (Eliquis) 2.5 mg PO BID ISAI PRN Reason: Protocol Last Admin: 07/02/17 10:33 Dose: 2.5 mg Aspirin (Aspirin Chewable) 81 mg PO 0800 ISAI PRN Reason: Protocol Last Admin: 07/02/17 08:28 Dose: 81 mg Atorvastatin Calcium (Lipitor) 20 mg PO DIN [facility] PRN Reason: Protocol Last Admin: 07/01/17 16:04 Dose: 20 mg Calcium/Vitamin D (Oscal-D 250 Mg-125 Units Tab) 1 tab PO BID [facility] Last Admin: 07/02/17 11:39 Dose: 1 tab Diltiazem HCl (Cardizem Cd) 180 mg PO DAILY ISAI PRN Reason: Protocol Last Admin: 07/02/17 10:33 Dose: 180 mg Donepezil HCl (Aricept) 10 mg PO HS ISAI PRN Reason: Protocol Last Admin: 07/01/17 21:51 Dose: 10 mg Ferrous Gluconate (Fergon) 324 mg PO TID ISAI PRN Reason: Protocol Last Admin: 07/02/17 10:34 Dose: 324 mg Furosemide (Lasix) 20 mg PO Q2D [facility] Last Admin: 07/01/17 10:42 Dose: 20 mg Insulin Human Regular (Humulin R Low) 0 units SC ACHS ISAI PRN Reason: Protocol Last Admin: 07/02/17 06:31 Dose: Not Given Metoprolol Tartrate (Lopressor) 25 mg PO 0800,1800 ISAI PRN Reason: Protocol Last Admin: 07/02/17 08:29 Dose: 25 mg Ondansetron HCl (Zofran Inj) 4 mg IVP Q4H PRN; Protocol PRN Reason: Nausea/Vomiting Pantoprazole Sodium (Protonix Ec Tab) 40 mg PO 0600 ISAI PRN Reason: Protocol Last Admin: 07/02/17 05:08 Dose: 40 mg Tramadol HCl (Ultram) 50 mg PO Q8H PRN; Protocol PRN Reason: Pain, moderate (4-7) Last Admin: 07/02/17 11:42 Dose: 50 mg Vitamin B Complex/Vit C/Folic Acid (Nephro-Haider) 1 tab PO 0800 ISAI PRN Reason: Protocol Last Admin: 07/02/17 08:33 Dose: 1 tab - Labs Labs: 06/30/17 06:50 06/30/17 06:50
--- NOTE | 2017-07-03 06:55 | DS ---
SUBJECTIVE: I saw her in the transitional care unit today. She is doing much better. She is walking better, eating better, good spirits. She will be discharged today on Aricept, aspirin, Cardizem, Eliquis, Fergon, Lasix, Lipitor, Lopressor, Nephro-Haider, Os-Momo, Protonix, Ultram, Xanax, and Zofran. OBJECTIVE: VITAL SIGNS: Are 98.3 temperature, 82 pulse, 124/56 blood pressure, 16 respiratory rate, 100% O2 saturation on room air. HEENT: Head is atraumatic, normocephalic. She is very pleasant. HEART: Regular rate. LUNGS: Decreased breath sounds, but clear. ABDOMEN: Soft. EXTREMITIES: No edema. LABORATORY DATA: She has 5.9 white count, 9.1 hemoglobin, 29 hematocrit with 240 platelets. Sodium 140, potassium 4.5, BUN 40, creatinine 1.5, GFR is 107, sugar is 191. ASSESSMENT AND PLAN: Overall, she is doing very well. She is going to go home. I will be seeing her on house call. She had multiple issues while she was here. She had severe sepsis, atrial fibrillation, chronic obstructive pulmonary disease, congestive heart failure. I will see her on house call. Marco Farris DO
== END 2017-07-02 15:15 | disposition home or self-care (01) | DRG 871 ==
LOC: TRCU 15:23
PROVIDERS: ADMIT Family Medicine; ATTEND Family Medicine
PROC: F07Z9ZZ Gait Training/Functional Ambulation Treatment (ICD-10-PCS; principal; 2017-06-26)
PROC: F07L6YZ Therapeutic Exercise Treatment of Musculoskeletal System - Lower Back / Lower Extremity using Other Equipment (ICD-10-PCS; 2017-06-26)
PROC: F07Z8ZZ Transfer Training Treatment (ICD-10-PCS; 2017-06-28)
PROC: F08Z2ZZ Grooming/Personal Hygiene Treatment (ICD-10-PCS; 2017-06-29)
PROC: F08Z1ZZ Dressing Techniques Treatment (ICD-10-PCS; 2017-06-29)
DX: A41.9 Sepsis, unspecified organism (principal); K85.90 Acute pancreatitis without necrosis or infection, unspecified; I13.0 Hypertensive heart and chronic kidney disease with heart failure and stage 1 through stage 4 chronic kidney disease, or unspecified chronic kidney disease; N25.81 Secondary hyperparathyroidism of renal origin; E87.2 Acidosis; N17.9 Acute kidney failure, unspecified; J44.9 Chronic obstructive pulmonary disease, unspecified; I50.9 Heart failure, unspecified; I48.2 Chronic atrial fibrillation; R65.20 Severe sepsis without septic shock; N18.3 Chronic kidney disease, stage 3 (moderate); K21.9 Gastro-esophageal reflux disease without esophagitis; E87.5 Hyperkalemia; I27.20 Pulmonary hypertension, unspecified; K52.9 Noninfective gastroenteritis and colitis, unspecified; F03.90 Unspecified dementia, unspecified severity, without behavioral disturbance, psychotic disturbance, mood disturbance, and anxiety; F41.9 Anxiety disorder, unspecified; E86.0 Dehydration; I25.10 Atherosclerotic heart disease of native coronary artery without angina pectoris; E55.9 Vitamin D deficiency, unspecified; D64.9 Anemia, unspecified; M25.559 Pain in unspecified hip; M19.90 Unspecified osteoarthritis, unspecified site; Z87.891 Personal history of nicotine dependence; Z85.118 Personal history of other malignant neoplasm of bronchus and lung; Z85.528 Personal history of other malignant neoplasm of kidney; Z95.0 Presence of cardiac pacemaker; Z90.2 Acquired absence of lung [part of]; Z90.5 Acquired absence of kidney

== ENCOUNTER 2017-08-12 08:29 | Inpatient (IN) | payer MEDICARE ==
[2017-08-12 08:30] VITALS: PULSE 45
--- NOTE | 2017-08-12 09:21 | ED PDOC ---
Arrival/HPI - General Chief Complaint: Shortness Of Breath Time Seen by Provider: 08/12/17 08:44 Historian: Patient EM Caveat: Dementia - History of Present Illness Narrative History of Present Illness (Text): 08/12/17 10:16 This is an 81 yo AA F with PMH of HTN, Anxiety, history of renal cancer/mass s/ p R nephrectomy, sciatica, hypercholesterolemia, prior tobacco use history, and atrial fibrillation on Eliquis, and dementia who presents with complaint of shortness of breath and bilateral leg pain. Of note, ROS limited due to patient 's dementia; currently AAOx2 (self and location), which is her baseline. Patient reports that she felt a little short of breath yesterday, but it improved prior to going to bed. This AM, she awoke very short of breath, struggled getting out of bed to her bathroom due to the shortness of breath, and struggled to get back to bed from her bathroom, so she called EMS. Reports that after EMS arrived and placed her on O2 (prior to transport to ED), she felt much better. Shortness of breath described as chronically feeling out of breath, but denies pain with respiration. Leg pain is chronic, and has thus far not been amenable to medical therapy by her PMD, but reports worse this AM; describes only as pain, denies swelling. Denies cough/productive cough, fever, nausea, emesis, diarrhea, constipation, focal weakness. PMH: as above PSH: R-Nephrectomy SHx: Prior tobacco use (as per charting, pt has no recall of tobacco use), denies EtOH/illicits FHx: CAD/NE as per ED charting (patient does not recall) PMD: Dr. Farris Past Medical History - Infectious Disease Hx of Infectious Diseases: None - Tetanus Immunization Tetanus Immunization: >10 years Ago - Cardiac Hx Atrial Fibrillation: Yes Hx Congestive Heart Failure: Yes Hx Hypertension: Yes Hx Pacemaker: Yes - Pulmonary Hx Chronic Obstructive Pulmonary Disease (COPD): Yes - Neurological Hx Neurological Disorder: Yes Hx Dementia: Yes Hx Dizziness: Yes (SYNCOPE) - HEENT Hx HEENT Disorder: Yes (glasses) - Renal Hx Renal Disorder: Yes - Endocrine/Metabolic Hx Endocrine Disorders: No - Hematological/Oncological Hx Cancer: No - Integumentary Hx Dermatological Disorder: No - Musculoskeletal/Rheumatological Hx Falls: Yes - Gastrointestinal Hx Gastrointestinal Disorders: Yes (poor appetite,pancratitis,gerd) - Genitourinary/Gynecological Hx Genitourinary Disorders: No Hx Reproductive Disorders: No - Psychiatric Hx Psychophysiologic Disorder: Yes Hx Anxiety: Yes Hx Substance Use: No - Surgical History Hx Mastectomy: No - Anesthesia Hx Anesthesia: Yes Hx Anesthesia Reactions: No Hx Malignant Hyperthermia: No Family/Social History Family/Social History: CAD/NE Smoking Status: Former Smoker Hx Alcohol Use: No Hx Substance Use: No Allergies/Home Meds Allergies/Adverse Reactions: Allergies No Known Allergies Allergy (Verified 08/12/17 09:00) Review of Systems - Physician Review All systems were reviewed & negative as marked: Yes (as per HPI, limited reliablity due to pt's dementia) Physical Exam Vital Signs Reviewed: Yes Vital Signs Temp Pulse Resp BP Pulse Ox 08/12/17 09:00 98.3 F 61 17 108/61 100 Temperature: Afebrile Blood Pressure: Normal Pulse: Regular Respiratory Rate: Normal Appearance: Positive for: Well-Appearing, Non-Toxic, Comfortable Pain Distress: Mild Mental Status: No: Alert and Oriented X 3 (oriented x2, self and location, baseline for patient) - Systems Exam Head: Present: Atraumatic, Normocephalic Pupils: No: Pinpoint Extroacular Muscles: Present: EOMI Conjunctiva: Present: Normal. No: Injected, Icteric Mouth: Present: Moist Mucous Membranes, Normal Lips, Normal Tounge, Normal Teeth. No: Dry, Drooling Pharnyx: Present: Normal Nose (External): Present: Atraumatic. No: Abrasion, Laceration Nose (Internal): Present: No Active Bleeding. No: Epistaxis Neck: Present: Normal Range of Motion. No: JVD Respiratory/Chest: Present: Clear to Auscultation, Good Air Exchange. No: Respiratory Distress, Accessory Muscle Use, Wheezes, Decreased Breath Sounds, Rales, Rhonchi, Tachypneic, Other Cardiovascular: Present: Regular Rate and Rhythm, Normal S1, S2. No: Murmurs, Irregular Rhythm, Tachycardic, Bradycardic Abdomen: Present: Normal Bowel Sounds. No: Tenderness, Distention, Peritoneal Signs, Mass/Organomegaly Upper Extremity: Present: Normal Inspection, Normal ROM, NORMAL PULSES. No: Cyanosis, Edema, Tenderness, Swelling, Erythema Lower Extremity: Present: Normal Inspection, NORMAL PULSES, Normal ROM. No: Edema, CALF TENDERNESS, Cyanosis, Tenderness, Swelling, Erythema Neurological: Present: GCS=15, Speech Normal, Motor Func Grossly Intact, Normal Sensory Function Skin: Present: Warm, Dry, Normal Color. No: Rashes Lymphatic: No: Cervical Adenopathy Psychiatric: Present: Alert, Normal Affect, Normal Mood. No: Oriented x 3 (x2, self and location, baseline) Medical Decision Making ED Course and Treatment: 08/12/17 10:42 Shortness of breath ddx: URI vs Afib vs 2/2 tobacco use hx vs anxiety vs PE LE pain ddx: Restless leg syndrome vs DVT vs sciatica Satting 96% on room air at time of exam, normocardic with HR 72 at time of exam , so less likely afib, less likely PE No LE edema or swelling in either leg, no asymmetry appreciated, less likely DVT CBC, CMP, Mg, Phos, Trop, EKG, D-dimer, CXR, LE Duplex ordered Low threshold of suspicion for PE, will obtain D-dimer to rule out EKG to rule out Afib, Trop to rule out ACS, Duplex to rule out DVT, CXR to rule out PNA Reassess and disposition 08/12/17 11:59 EKG notable for ventricularly paced rhythm, trop negative, but labs concerning for Hgb 7.1 with BUN > 50 and Cr 2.0 (baseline is 1.5-1.6), suggestive of dehydration, so true Hgb likely < 7. Stool occult and coags ordered. 1L NS bolus ordered. Discussed with PMD, Dr. Farris, agrees with plan to transfuse 2 units pRBCs, admit to telemetry for workup of blood loss anemia. PMD requests GI consult ( Mariano) and Cardio consult (Raymundo), placed at his instruction. Pt seen, reviewed, discussed with attending, Dr. Stevens Reassessment Condition: Re-examined, Improved - Lab Interpretations Lab Results: 08/12/17 10:00 08/12/17 10:00 Lab Results 08/12/17 10:00: D-Dimer, Quantitative 297 H 08/12/17 10:00: Sodium 146, Potassium 5.2 H, Chloride 109 H, Carbon Dioxide 24, Anion Gap 19, BUN 52 H, Creatinine 2.0 H, Est GFR ( Amer) 29, Est GFR ( Non-Af Amer) 24, Random Glucose 93, Calcium 9.2, Phosphorus 4.4, Magnesium 2.5 H , Total Bilirubin 0.3, AST 29, ALT 25, Alkaline Phosphatase 81, Troponin I 0.02 , Total Protein 7.6, Albumin 3.9, Globulin 3.7, Albumin/Globulin Ratio 1.0 L 08/12/17 10:00: WBC 7.5 D, RBC 3.18 L, Hgb 7.1 L D, Hct 24.3 L, MCV 76.4 L D, MCH 22.3 L, MCHC 29.2 L, RDW 19.4 H, Plt Count 447, MPV 9.6, Gran % 74.9 H, Lymph % (Auto) 17.2 L, Christian % (Auto) 5.3, Eos % (Auto) 1.9, Baso % (Auto) 0.7, Gran # 5.65, Lymph # (Auto) 1.3, Christian # (Auto) 0.4, Eos # (Auto) 0.1, Baso # ( Auto) 0.05 - RAD Interpretation Radiology Orders: 08/12/17 09:04 CHEST PORTABLE [RAD] Stat 08/12/17 09:12 DUPLEX LOWER EXTRM VEIN BILAT [US] Routine Disposition/Present on Arrival - Present on Arrival Any Indicators Present on Arrival: No History of DVT/PE: No History of Uncontrolled Diabetes: No Urinary Catheter: No History of Decub. Ulcer: No History Surgical Site Infection Following: None - Disposition Have Diagnosis and Disposition been Completed?: Yes Diagnosis: Blood loss anemia, GI bleed Disposition: HOSPITALIZED Disposition Time: 12:02 Patient Plan: Admission, Telemetry Patient Problems: Current Active Problems Problem Status Onset Blood loss anemia Acute GI (gastrointestinal bleed) Acute Condition: FAIR Forms: [employer] ([place])
--- NOTE | 2017-08-12 09:31 | RAD ---
HISTORY: short of breath COMPARISON: 06/21/2017 FINDINGS: LUNGS: No active pulmonary disease. PLEURA: No significant pleural effusion identified, no pneumothorax apparent. CARDIOVASCULAR: Moderate cardiomegaly OSSEOUS STRUCTURES: No significant abnormalities. VISUALIZED UPPER ABDOMEN: Normal. OTHER FINDINGS: None. IMPRESSION: No active disease.
[2017-08-12 10:19] LABS: BASO # 0.05 K/mm3 (0.0-2.0); BASO % 0.7 % (0.0-3.0); EOS # 0.1 (0.0-0.7); EOS % 1.9 % (1.5-5.0); GRAN # 5.65 (1.4-6.5); GRAN % 74.9 % (50.0-68.0); LYMPH # 1.3 (1.2-3.4); LYMPH % 17.2 % (22.0-35.0); MEAN CELL VOLUME 76.4 fl (80.0-105.0); MEAN CORPUSCULAR HEMOGLOBIN 22.3 pg (25.0-35.0); MEAN CORPUSCULAR HGB CONC 29.2 g/dl (31.0-37.0); MEAN PLATELET VOLUME 9.6 fl (7.0-11.0); MONO # 0.4 (0.1-0.6); MONO % 5.3 % (1.0-6.0); RBC 3.18 10^6/uL (3.5-6.1); RED CELL DISTRIBUTION WIDTH 19.4 % (11.5-14.5); WHITE BLOOD COUNT 7.5 10^3/ul (4.5-11.0)
[2017-08-12 10:22] LABS: HEMOGLOBIN 7.1 g/dL (12.0-16.0)
[2017-08-12 10:53] LABS: ALBUMIN 3.9 g/dL (3.0-4.8); CALCIUM 9.2 mg/dL (8.4-10.5)
[2017-08-12 11:00] LABS: TROPONIN I 0.02 ng/mL
[2017-08-12] MEDS ORDERED: Sodium Chloride 0.9% 1,000 ML IV STA (12:03)
--- NOTE | 2017-08-12 13:36 | CP.PCM.CON ---
<Blanka Kaplan - Last Filed: 08/12/17 13:52> History of Present Illness - History of Present Illness History of Present Illness: GI Fellow PGY 4 Consult Note This is a 81 year old female with h/o COPD, lung ca s/p lobectomy, HTN, anemia, ckd, Afib on OAC eliquis who presents with SOB and BL LE pain. Pt reports waking up this morning and feeling SOB, no CP, no home oxygen needed. She also reports BL LE pain, denies any abd pain. Had 1 BM this morning without blood or melena. Pt had a prior admission with a low Hgb and supratherapeutic INR on Coumadin and received supportive care and responded to transfusions and outpt colonoscopy was recommended which pt did not followup on. At this time in the ER , pt's Hgb 7.1, no active GI bleeding, and pt eating lunch with no complaints. ROS: 12 point ROS conducted neg other than above PmHx: As stated above PsHx: Denies Social history: non-smoker, no ETOH use Family history: patient denies history of GI malignancies Endo Hx: EGD and Colonoscopy 2017: hepatic AVM s/p argon, smaller AVM in ascending; gastric erosions Past Patient History - Infectious Disease Hx of Infectious Diseases: None - Tetanus Immunizations Tetanus Immunization: >10 years Ago - Past Medical History & Family History Past Medical History?: Yes - Past Social History Smoking Status: Former Smoker - CARDIAC Hx Atrial Fibrillation: Yes Hx Congestive Heart Failure: Yes Hx Hypertension: Yes Hx Pacemaker: Yes - PULMONARY Hx Chronic Obstructive Pulmonary Disease (COPD): Yes - NEUROLOGICAL Hx Neurological Disorder: Yes Hx Dementia: Yes Hx Dizziness: Yes (SYNCOPE) - HEENT Hx HEENT Problems: Yes (glasses) - RENAL Hx Chronic Kidney Disease: Yes - ENDOCRINE/METABOLIC Hx Endocrine Disorders: No - HEMATOLOGICAL/ONCOLOGICAL Hx Cancer: No - INTEGUMENTARY Hx Dermatological Problems: No - MUSCULOSKELETAL/RHEUMATOLOGICAL Hx Falls: Yes - GASTROINTESTINAL Hx Gastrointestinal Disorders: Yes (poor appetite,pancratitis,gerd) - GENITOURINARY/GYNECOLOGICAL Hx Genitourinary Disorders: No Hx Reproductive Disorders: No - PSYCHIATRIC Hx Psychophysiologic Disorder: Yes Hx Anxiety: Yes Hx Substance Use: No - SURGICAL HISTORY Hx Mastectomy: No - ANESTHESIA Hx Anesthesia: Yes Hx Anesthesia Reactions: No Hx Malignant Hyperthermia: No Meds Allergies/Adverse Reactions: Allergies Allergy/AdvReac Type Severity Reaction Status Date / Time No Known Allergies Allergy Verified 08/12/17 09:00 Physical Exam - Constitutional Appears: Non-toxic, No Acute Distress - Head Exam Head Exam: ATRAUMATIC, NORMAL INSPECTION, NORMOCEPHALIC - Eye Exam Eye Exam: EOMI, Normal appearance Pupil Exam: PERRL - ENT Exam ENT Exam: Mucous Membranes Moist - Neck Exam Neck exam: Positive for: Normal Inspection - Respiratory Exam Respiratory Exam: Clear to Auscultation Bilateral, NORMAL BREATHING PATTERN - Cardiovascular Exam Cardiovascular Exam: REGULAR RHYTHM, RRR, +S1, +S2 - GI/Abdominal Exam GI & Abdominal Exam: Normal Bowel Sounds, Soft. absent: Diminished Bowel Sounds , Distended, Organomegaly, Rigid, Tenderness - Rectal Exam Rectal Exam: NORMAL INSPECTION. absent: Black Stool, Bloody Stool, Hemorrhoids , Fecal Impaction - Neurological Exam Neurological exam: Alert, Oriented x3 - Psychiatric Exam Psychiatric exam: Normal Affect, Normal Mood - Skin Skin Exam: Dry, Intact, Normal Color, Warm Results - Vital Signs Recent Vital Signs: Last Vital Signs Temp 98.3 F 08/12/17 09:00 Pulse 61 08/12/17 09:00 Resp 18 08/12/17 09:15 BP 108/61 08/12/17 09:00 Pulse Ox 100 08/12/17 09:15 - Labs Result Diagrams: 08/12/17 10:00 08/12/17 10:00 Labs: Laboratory Results - last 24 hr 08/12/17 12:18 Blood Type AB POSITIVE Antibody Screen Negative Crossmatch See Detail BBK History Checked Patient has bt Assessment & Plan - Assessment and Plan (Free Text) Assessment: This is a 81yF with hx of CKD and Afib on OAC eliquis presenting with SOB and BL LE pain. 1. Anemia 2. Atrial fibrillation on eliquis 3. BL LE pain 4. CKD 5. Hx of AVMs and PUD Plan: -Continue supportive care - Diet as tolerated - PRBC transfusion ordered, Hgb 7.1, monitor H/H - No melena/hematochezia or evidence of active GI bleeding, hemodynamically stable - Continue with PPI IV BID - Pt has hx of AVMs and PUD with EGD/Colonoscopy in 2016, no malignancy on colonoscopy - Patient will need endoscopic evaluation, will continue to monitor patient clinical course and make further recommendations -Will continue to follow closely <Dago Courtney - Last Filed: 08/12/17 15:37> Meds - Medications Medications: Current Medications Pantoprazole Sodium (Protonix Inj) 40 mg IVP Q12 ISAI Results - Vital Signs Recent Vital Signs: Last Vital Signs Temp 97.6 F 08/12/17 13:53 Pulse 67 08/12/17 13:53 Resp 18 08/12/17 13:53 BP 117/59 L 08/12/17 13:53 Pulse Ox 100 08/12/17 13:32 - Labs Result Diagrams: 08/12/17 10:00 08/12/17 10:00 Labs: Laboratory Results - last 24 hr 08/12/17 12:18 Blood Type AB POSITIVE Antibody Screen Negative Crossmatch See Detail BBK History Checked Patient has bt Attending/Attestation - Attestation I have personally seen and examined this patient.: Yes I have fully participated in the care of the patient.: Yes I have reviewed all pertinent clinical information: Yes Notes (Text): 08/12/17 15:36 81 year old female with h/o anemia and avms a/w anemia. Recommend transfusion. No overt GI bleeding. Consider outpatient colonoscopy if patient desires for APC of colonic avms.
--- NOTE | 2017-08-12 16:18 | CARD ---
APPROVED REPORT EKG Measurement Heart [id number] <Conclusion> Atrial Flutter with 1005 V. Paced rhythm. Pacing is new.
[2017-08-12 17:37] VITALS: BMI 22.4
[2017-08-12] MEDS ORDERED: Pneumococcal 23-Valent Vaccine IM ONE (17:37)
[2017-08-13 07:16] LABS: BASO # 0.04 K/mm3 (0.0-2.0); BASO % 0.5 % (0.0-3.0); EOS # 0.2 (0.0-0.7); EOS % 3.2 % (1.5-5.0); GRAN # 5.61 (1.4-6.5); GRAN % 75.5 % (50.0-68.0); HEMOGLOBIN 10.1 g/dL (12.0-16.0); LYMPH # 1.1 (1.2-3.4); LYMPH % 14.2 % (22.0-35.0); MEAN CELL VOLUME 77.2 fl (80.0-105.0); MEAN CORPUSCULAR HEMOGLOBIN 24.5 pg (25.0-35.0); MEAN CORPUSCULAR HGB CONC 31.7 g/dl (31.0-37.0); MEAN PLATELET VOLUME 9.5 fl (7.0-11.0); MONO # 0.5 (0.1-0.6); MONO % 6.6 % (1.0-6.0); RBC 4.13 10^6/uL (3.5-6.1); RED CELL DISTRIBUTION WIDTH 17.6 % (11.5-14.5); WHITE BLOOD COUNT 7.4 10^3/ul (4.5-11.0)
[2017-08-13 07:29] LABS: INR 2.43 (0.93-1.08); PROTHROMBIN TIME 28.4 SECONDS (9.4-12.5)
[2017-08-13 08:04] LABS: ALBUMIN 3.8 g/dL (3.0-4.8); CALCIUM 8.8 mg/dL (8.4-10.5)
--- NOTE | 2017-08-13 09:14 | CP.PCM.PN ---
Subjective - Date & Time of Evaluation Date of Evaluation: 08/13/17 Time of Evaluation: 09:05 - Subjective Subjective: Patient seen and examined. No acute events overnight, she is seen resting in bed comfortably. She claims her breathing has improved and she denies abdominal pain, nausea, vomiting, fever/chills. No bowel movements since yesterday. She consumed her breakfast tray in entirety this morning. Review of vitals from today are normal. 12 point review of systems performed, negative aside from mentioned above. Objective - Vital Signs/Intake and Output Vital Signs (last 24 hours): Temp Pulse Resp BP Pulse Ox 98 F 72 18 132/70 100 08/13/17 06:00 08/13/17 06:00 08/13/17 06:00 08/13/17 06:00 08/13/17 06:00 Intake and Output: 08/13/17 08/13/17 06:59 18:59 Intake Total 280 Balance 280 - Medications Medications: Current Medications Acetaminophen (Tylenol 325mg Tab) 650 mg PO Q4H PRN PRN Reason: Pain, moderate (4-7) Last Admin: 08/13/17 08:27 Dose: 650 mg Alprazolam (Xanax) 0.5 mg PO BID PRN; Protocol PRN Reason: Anxiety Last Admin: 08/12/17 21:14 Dose: 0.5 mg Amlodipine Besylate (Norvasc) 5 mg PO DAILY [facility] Apixaban (Eliquis) 2.5 mg PO BID [facility] PRN Reason: Protocol Aspirin (Aspirin Chewable) 81 mg PO DAILY [facility] Atorvastatin Calcium (Lipitor) 20 mg PO DIN [facility] Diltiazem HCl (Cardizem) 180 mg PO DAILY [facility] Donepezil HCl (Aricept) 10 mg PO HS [facility] Last Admin: 08/12/17 21:15 Dose: 10 mg Furosemide (Lasix) 20 mg PO DAILY [facility] Insulin Human Regular (Humulin R Med) 0 units SC ACHS [facility] PRN Reason: Protocol Metoprolol Tartrate (Lopressor) 25 mg PO BID [facility] Pantoprazole Sodium (Protonix Inj) 40 mg IVP Q12 [facility] Last Admin: 08/12/17 21:12 Dose: 40 mg Vitamin B Complex/Vit C/Folic Acid (Nephro-Haider) 1 tab PO 0800 [facility] - Labs Labs: 08/13/17 06:30 08/13/17 06:30 PT 28.4 SECONDS (9.4-12.5) H 08/13/17 06:30 INR 2.43 (0.93-1.08) H 08/13/17 06:30 - Constitutional Appears: Non-toxic, No Acute Distress - Head Exam Head Exam: NORMAL INSPECTION - Eye Exam Eye Exam: EOMI, Normal appearance - ENT Exam ENT Exam: Mucous Membranes Moist - Respiratory Exam Respiratory Exam: Clear to Ausculation Bilateral - Cardiovascular Exam Cardiovascular Exam: +S1, +S2 - GI/Abdominal Exam GI & Abdominal Exam: Soft, Normal Bowel Sounds Additional comments: non tender to palpation in four quadrants - Extremities Exam Extremities Exam: Normal Inspection - Skin Skin Exam: Dry, Intact, Normal Color, Warm Assessment and Plan - Assessment and Plan (Free Text) Assessment: COPD CKD History of lung cancer Atrial fibrillation on eliquis Microcytic anemia, chronic disease Plan: - Diet as tolerated - H/H stable, s/p PRBC transfusion, continue to monitor - Continue with PPI therapy - Currently no planned GI intervention, no overt bleeding noted. Patient would benefit from additional outpatient evaluation with consideration of repeat colonoscopy given prior colonic AVMs. Office contact information provided to patient. Will sign off case, please reconsult as necessary, thank you. Case discussed with Dr. Farris.
[2017-08-13] MEDS: Multivitamin Vitamin B Complex (Nephro-Vite) Tab PO SCH (09:48)
[2017-08-13] MEDS: Insulin Reg-MEDIUM-Coverage SC SCH ×3 (12:32→22:32)
[2017-08-13 13:12] LABS: INR 3.2 (0.93-1.08); PROTHROMBIN TIME 35.2 SECONDS (9.4-12.5)
--- NOTE | 2017-08-13 16:04 | HP ---
Doing history and physical again, I did it yesterday. I saw her in the emergency room and when I got to my office and I did it, it did not take, so my first H&P that was done on 08/12/2017, which was did not take, so I am doing today's H&P for yesterday. HISTORY OF PRESENT ILLNESS: When I saw her in the emergency room, she is an 81-year-old female who I do house calls on. I sent her to the emergency room, saw her in the emergency room. Discussed her with the emergency room doctor, discussed the transfusion and the orders. She is an 81-year-old female, who comes in weak. She was found to have a very low hemoglobin 7.1, we started transfusing her, called in GI. She is comfortable otherwise. PAST MEDICAL HISTORY: COPD, lung cancer, status post lobectomy, hypertension, anemia, chronic kidney disease, AFib. She is on Eliquis. She has shortness of breath from time to time. She gets in and out of it mentally from time to time. She had one bowel movement with black stool. She has had supratherapeutic INRs in the past on Coumadin, but she is on Eliquis now. No active GI bleeding at this time. She had a lobectomy. SOCIAL HISTORY: She is a nonsmoker. No alcohol. No drugs. FAMILY HISTORY: No family history of anything that she could remember. She has had EGD and colonoscopy in 2017, hepatic AVMs. She has had heart failure, hypertension, pacemaker, syncope, dementia. She wears glasses, very pleasant. Poor appetite, pancreatitis and GERD history. She gets anxious from time to time. ALLERGIES: NO KNOWN DRUG ALLERGIES. REVIEW OF SYSTEMS: No acute vision or hearing changes. No chest pain. A little shortness of breath and she is tired. No abdominal pain, nausea, vomiting, constipation, diarrhea. One time she had black stool, I do not know if it was this week or if it has been in the past, but she said she had it. Extremities: She can walk very well, but slow. She walks with a cane. PHYSICAL EXAMINATION: VITAL SIGNS: She has 98.3 temp, 61 pulse, 18 respiratory rate, 108/61 blood pressure, 100% O2 sat. LABORATORY DATA: She has a 7.5 white count, 7.1 hemoglobin, 24.3 hematocrit with 447 platelets. D-dimer is 297. She has a 146 sodium, potassium 5.2, BUN 52, creatinine 2, GFR is 24, sugar is 93, calcium is 9.2, phosphorous 4.4, magnesium 2.5, total bili is 0.3, AST is 29, ALT is 25, alk phos 81. Troponin I is 0.02, total protein is 7.6. She had multiple other tests. She had a chest x-ray that was clean. Ultrasound of legs, which was clean. IMPRESSION: She has consults with GI. I did not go in to do an endoscopy this time. I might discharge her home if the hemoglobin is okay and it is okay with Cardiology. She is on Xanax, Protonix, Norvasc, Lyrica, Lopressor, Lipitor, Lasix, Eliquis, Cardizem, aspirin, and Aricept. There was an order for warfarin. I am stopping the warfarin. She is on Eliquis. Also I am stopping the tramadol. If she is having any kind of bleed Tylenol and we will see how she does today with physical therapy and her hemoglobin. Marco Farris DO MTDD
--- NOTE | 2017-08-13 19:55 | CON ---
DATE: 08/13/2017 CARDIOLOGY CONSULTATION HISTORY OF PRESENT ILLNESS: The patient is an 81-year-old woman with one of multiple admissions who presented with shortness of breath and weakness. She is chronically anemic and received blood this morning, the patient is feeling well and back to her baseline. PAST MEDICAL HISTORY: Includes a history of renal CA; hypercholesterolemia; chronic atrial fibrillation, on Eliquis and is status post pacemaker placement for symptomatic bradycardia. She denies chest pain, denies shortness of breath now. SOCIAL HISTORY: The patient is a former smoker. REVIEW OF SYSTEMS: Free of angina, free of edema in the lower extremities. PHYSICAL EXAMINATION VITAL SIGNS: Blood pressure is 132/70, the heart rate is in the 70s with a paced rhythm. NECK: Negative JVD. LUNGS: Without rales. HEART: Reveals S1 and S2. EXTREMITIES: Without edema. LABORATORY DATA: EKG shows paced rhythm. Hemoglobin went from 7 to post transfusion of 10.1. Chemistries: BUN and creatinine of 40 and 1.8, glucose is 249. IMPRESSION: 1. Symptomatic anemia. 2. Paroxysmal atrial fibrillation. 3. History of pacemaker placement. 4. Renal insufficiency and status post nephrectomy. 5. Diabetes mellitus. PLAN: Given these findings, the patient may be taking the inappropriate medications with Coumadin still listed on her list. She is currently on Eliquis as well. We will go over with the patient again about her need to stop the Coumadin. Oswald Fonseca MD
--- NOTE | 2017-08-14 01:44 | DS ---
HISTORY OF PRESENT ILLNESS: She is resting comfortably in bed. She is hungry. She is eating. She is in good spirits. She is walking fairly well. She is on Xanax, Protonix, Norvasc, Lyrica, Lopressor, Lipitor, Lasix, Eliquis, Cardizem, Aricept and chewable aspirin. PHYSICAL EXAMINATION: VITAL SIGNS: She has a 98 temp, 72 pulse, 132/70 blood pressure, 100% O2 sat on room air. HEENT: Head is atraumatic, normocephalic. HEART: Regular rate. LUNGS: Clear to auscultation. ABDOMEN: Soft, nontender. Positive bowel sounds. EXTREMITIES: No edema. She is walking around. LABORATORY DATA: She was transfused 2 units. She has a 7.4 white count, 10.1 hemoglobin, 31.9 hematocrit with 366 platelets. She has a 146 sodium, potassium of 5.2, BUN of 52, creatinine is 2. I am waiting for this morning's SMA-20 to calculate . Last blood sugar was 249. Calcium is 9.2, phosphorous 4.4, total bili is 0.3, AST is 29, ALT is 25, alk phos 81, troponin I is 0.02. So, we will see what this morning's SMA-20 says, see what Physical Therapy says. I am not sure if GI or Cardiology is going to do anything. It is very possible I might be discharging her home today and change her to an observation status and [id number]'ing this is a possibility since she is doing so well. She is here for acute anemia, unknown source. Marco Farris DO
[2017-08-14] MEDS: Multivitamin Vitamin B Complex (Nephro-Vite) Tab PO SCH (08:09)
[2017-08-14] MEDS: Insulin Reg-MEDIUM-Coverage SC SCH ×4 (08:12→21:49)
--- NOTE | 2017-08-14 09:38 | RAD ---
HISTORY: sob COMPARISON: 08/12/2017 TECHNIQUE: Chest PA and lateral FINDINGS: LUNGS: No active pulmonary disease. PLEURA: No significant pleural effusion identified. No pneumothorax apparent. CARDIOVASCULAR: Mild cardiomegaly and moderate vascular congestion OSSEOUS STRUCTURES: No significant abnormalities. VISUALIZED UPPER ABDOMEN: Normal. OTHER FINDINGS: Single lead pacemaker IMPRESSION: Mild cardiomegaly and moderate vascular congestion
[2017-08-14 10:33] LABS: INR 1.69 (0.93-1.08); PROTHROMBIN TIME 19.6 SECONDS (9.4-12.5)
[2017-08-14 10:39] LABS: ALB/GLOB RATIO 0.9 (1.1-1.8); ALBUMIN 3.6 g/dL (3.0-4.8); CALCIUM 8.9 mg/dL (8.4-10.5)
[2017-08-14 10:40] LABS: HEMOGLOBIN 10.3 g/dL (12.0-16.0); MEAN CORPUSCULAR HEMOGLOBIN 24.9 pg (25.0-35.0); MEAN CORPUSCULAR HGB CONC 31.9 g/dl (31.0-37.0); MEAN PLATELET VOLUME 9.4 fl (7.0-11.0); RBC 4.14 10^6/uL (3.5-6.1); RED CELL DISTRIBUTION WIDTH 18.1 % (11.5-14.5); WHITE BLOOD COUNT 10.5 10^3/ul (4.5-11.0)
--- NOTE | 2017-08-15 07:54 | DS ---
HISTORY OF PRESENT ILLNESS: I saw her and discharged this morning at [facility]. She states very short of breath and she is very much in pain. I stopped the morphine because she cannot go home on morphine and she is on tramadol now. Also, that will decrease her pain and also the breathing issue. I am waiting for labs to come back this morning, checking the INR, CBC and kidney function. PHYSICAL EXAMINATION: VITAL SIGNS: She has 97.8 temp, 80 pulse, 137/81 blood pressure, 20 respiratory rate, 99% on room air. HEENT: Head is atraumatic and normocephalic. HEART: Regular rate. LUNGS: Clear to auscultation. Decreased breath sounds. ABDOMEN: Soft. EXTREMITIES: No edema. ASSESSMENT AND PLAN: She is here for symptomatic anemia, got transfused two units, last hemoglobin was 10 and was 7 when she came in. I will see what the labs are today. If things are good, we will discharge her home. She was here with symptomatic anemia. She was transfused. She has chronic pain. I will see her in house call discharge her today. Marco Farris DO MTDD
[2017-08-15 07:55] VITALS: BP 124/70; PULSE 74; RESP 21; TEMP 97.8; O2SAT 98
[2017-08-15] MEDS: Insulin Reg-MEDIUM-Coverage SC SCH (11:38)
[2017-08-15] MEDS: Multivitamin Vitamin B Complex (Nephro-Vite) Tab PO SCH (11:39)
--- NOTE | 2017-08-15 13:53 | DS ---
HOSPITAL COURSE: She was here for anemia, had transfusions. She did well. Then, she had shortness of breath and was not feeling well and now, she is doing better. She will be discharged today. She is on Aricept, aspirin, Cardizem, Eliquis. She Eliquis, no more warfarin, we have done it before. Lasix, Lipitor, Lopressor, Nephro-Haider, Norvasc, Protonix, Tylenol, tramadol, Xanax. I hope that she will do well. I will be seeing her on a house call. PHYSICAL EXAMINATION: VITAL SIGNS: She has a 97.8 temp, 74 pulse, 124/78 blood pressure, 21 respiratory rate, 98% O2 sat. HEENT: Head is atraumatic, normocephalic. GENERAL: She is alert and comfortable and oriented, in good spirits. HEART: Regular rate. LUNGS: Clear to auscultation. ABDOMEN: Soft. EXTREMITIES: No edema. LABORATORY DATA: Last labs were very good. ASSESSMENT AND PLAN: She will be discharged home today. I will see her on a house call and she was here for acute anemia with blood transfusions. Marco Farris DO MTDD
== END 2017-08-15 15:45 | disposition home or self-care (01) | DRG 812 ==
LOC: ED 08:29 → ERH 11:53 → 2RSO 18:38 → 5RNO 08-14 13:15
PROVIDERS: ADMIT Family Medicine; ATTEND Family Medicine
PROC: 30233N1 Transfusion of Nonautologous Red Blood Cells into Peripheral Vein, Percutaneous Approach (ICD-10-PCS; principal; 2017-08-12)
DX: D50.0 Iron deficiency anemia secondary to blood loss (chronic) (principal); I13.0 Hypertensive heart and chronic kidney disease with heart failure and stage 1 through stage 4 chronic kidney disease, or unspecified chronic kidney disease; I50.9 Heart failure, unspecified; E11.22 Type 2 diabetes mellitus with diabetic chronic kidney disease; D63.1 Anemia in chronic kidney disease; F03.90 Unspecified dementia, unspecified severity, without behavioral disturbance, psychotic disturbance, mood disturbance, and anxiety; I48.0 Paroxysmal atrial fibrillation; I48.2 Chronic atrial fibrillation; J44.9 Chronic obstructive pulmonary disease, unspecified; K21.9 Gastro-esophageal reflux disease without esophagitis; E78.00 Pure hypercholesterolemia, unspecified; N18.9 Chronic kidney disease, unspecified; G89.29 Other chronic pain; Z79.01 Long term (current) use of anticoagulants; Z85.118 Personal history of other malignant neoplasm of bronchus and lung; Z87.891 Personal history of nicotine dependence; Z95.0 Presence of cardiac pacemaker; Z90.5 Acquired absence of kidney; Z87.11 Personal history of peptic ulcer disease; Z85.528 Personal history of other malignant neoplasm of kidney

== ENCOUNTER 2017-08-17 02:18 | Emergency (ER) | payer MEDICARE ==
[2017-08-17 02:18] VITALS: PULSE 45; BMI 22.4
[2017-08-17 02:44] VITALS: TEMP 98.5
--- NOTE | 2017-08-17 03:04 | ED PDOC ---
Arrival/HPI - General Chief Complaint: Weakness/Neurological Deficit Time Seen by Provider: 08/17/17 02:23 Historian: Patient - History of Present Illness Narrative History of Present Illness (Text): 08/17/17 02:55 81 year old female, whose past medical history includes chronic renal insufficiency, renal cancer/mass s/p R nephrectomy, anxiety, chronic bilateral lower extremity pain, COPD, lung cancer s/p lobectomy, hypercholesterolemia, hypertension, anemia, ckd, Afib on OAC eliquis, presents to the Emergency department for hyperventilating. Someone called the ambulance for her and found her hyperventilating and saying she could not breath, but seemed to be breathing fine when EMS evaluated. Patient is currently breathing fine and is now calm because she is here. Patient suffers a little dementia, but is aware and oriented x3. She was recently evaluated and admitted in [facility] [place] [place] 5 days ago for a transfusion. Patient denies any fevers, chills, chest pain, abdominal pain, nausea, vomiting, diarrhea, back pain, neck pain, urinary symptoms, headache, dizziness, or any other complaint. PMD: Dr. Farris Symptom Onset: Sudden Symptom Course: Improving Activities at Onset: Light Context: Home Past Medical History - Provider Review Nursing Documentation Reviewed: Yes - Infectious Disease Hx of Infectious Diseases: None - Tetanus Immunization Tetanus Immunization: >10 years Ago - Cardiac Hx Hypertension: Yes - Pulmonary Hx Chronic Obstructive Pulmonary Disease (COPD): Yes - Neurological Hx Neurological Disorder: Yes Hx Dementia: Yes Hx Dizziness: Yes (SYNCOPE) Other/Comment: pt denies cva - HEENT Hx HEENT Disorder: Yes (glasses) - Renal Hx Renal Disorder: Yes Hx Renal Cancer: (pt denies) Other/Comment: r nephrectomy - Endocrine/Metabolic Hx Endocrine Disorders: No - Hematological/Oncological Hx Blood Disorders: Yes Hx Anemia: Yes (blood transfusions) Hx Cancer: No - Integumentary Hx Dermatological Disorder: Yes Other/Comment: dry flakey red ad brown skin to circumference of right forearm, pt thinks her bracelets may have irritated her skin , c/o of stinging pain has had this "couple weeks", multiple small round light skin discolorations ble - Musculoskeletal/Rheumatological Hx Musculoskeletal Disorders: Yes (sciatica) Hx Arthritis: Yes Hx Back Pain: Yes Hx Falls: Yes (past) Hx Unsteady Gait: Yes (cane) - Gastrointestinal Hx Gastrointestinal Disorders: Yes (rectal bleeding) Hx Gastroesophageal Reflux: Yes Hx Pancreatitis: Yes Other/Comment: pt's appetite "improving" stated pt 'I starting to gain weight back." - Genitourinary/Gynecological Hx Genitourinary Disorders: No - Psychiatric Hx Psychophysiologic Disorder: Yes Hx Anxiety: Yes Hx Substance Use: No - Surgical History Hx Mastectomy: No Other/Comment: r nephrectomy - Anesthesia Hx Anesthesia: Yes Hx Anesthesia Reactions: No Hx Malignant Hyperthermia: No Family/Social History - Physician Review Nursing Documentation Reviewed: Yes Family/Social History: No Known Family HX Smoking Status: Former Smoker Hx Alcohol Use: No Hx Substance Use: No Allergies/Home Meds Allergies/Adverse Reactions: Allergies No Known Allergies Allergy (Verified 08/17/17 02:39) Home Medications: Home Meds Medication Instructions Recorded Confirmed Atorvastatin [Lipitor] 20 mg PO DAILY 08/12/17 08/17/17 Warfarin [Coumadin] 3 mg PO DAILY 08/12/17 08/17/17 amLODIPine [Norvasc] 5 mg PO DAILY 08/12/17 08/17/17 traMADol [Ultram] 50 mg PO BID 08/12/17 08/17/17 Review of Systems - Physician Review All systems were reviewed & negative as marked: Yes - Review of Systems Constitutional: absent: Fevers, Other (Chills) Respiratory: SOB Cardiovascular: absent: Chest Pain Gastrointestinal: absent: Abdominal Pain, Diarrhea, Nausea, Vomiting Genitourinary Female: absent: Dysuria, Frequency, Hematuria Musculoskeletal: absent: Back Pain, Neck Pain Neurological: absent: Headache, Dizziness Psychiatric: Other (hyperventilating) Physical Exam Vital Signs Reviewed: Yes Vital Signs Temp Pulse Resp BP Pulse Ox 08/17/17 02:43 98.5 F 77 18 129/67 99 Temperature: Afebrile Blood Pressure: Normal Pulse: Regular Respiratory Rate: Normal Appearance: Positive for: Well-Appearing, Non-Toxic, Comfortable Pain Distress: None Mental Status: Positive for: Alert and Oriented X 3 - Systems Exam Head: Present: Atraumatic, Normocephalic Pupils: Present: PERRL Extroacular Muscles: Present: EOMI Conjunctiva: Present: Normal Mouth: Present: Moist Mucous Membranes Neck: Present: Normal Range of Motion Respiratory/Chest: Present: Clear to Auscultation, Good Air Exchange. No: Respiratory Distress, Accessory Muscle Use Cardiovascular: Present: Regular Rate and Rhythm, Normal S1, S2. No: Murmurs Abdomen: No: Tenderness, Distention, Peritoneal Signs Back: Present: Normal Inspection Upper Extremity: Present: Normal Inspection. No: Cyanosis, Edema Lower Extremity: Present: Normal Inspection. No: Edema Neurological: Present: GCS=15, CN II-XII Intact, Speech Normal Skin: Present: Warm, Dry, Normal Color. No: Rashes Psychiatric: Present: Alert, Oriented x 3, Normal Insight, Normal Concentration Medical Decision Making ED Course and Treatment: 08/17/17 03:06 Impression: 81 year old female presents complaining of trouble breathing. Patient was hyperventilating, but seemed to be breathing fine. Plan: -- Labs -- EKG -- Chest X-ray -- Reassess and disposition Prior Visits: Notes and results from previous visits were reviewed. Patient was last seen in the emergency department on 08/12/17 presents complaining of shortness of breath and bilateral leg pain. Patient was admitted for a blood transfusion due to her hemoglobin dropping. Progress Notes: 08/17/17 04:12 CXR Impression: As read by me, little of cardiomegaly no failure. No change from Chest X-ray 2 days ago. EKG shows Atrial flutter at 65 BPM with RBBB and LVH. Interpreted by me. - Lab Interpretations Lab Results: 08/17/17 04:00 08/17/17 05:35 Lab Results 08/17/17 05:35: Blood Type Pending, Antibody Screen Pending, BBK History Checked Patient has bt 08/17/17 05:35: Sodium 148, Potassium 4.9, Chloride 113 H, Carbon Dioxide 23, Anion Gap 17, BUN 47 H, Creatinine 1.7 H, Est GFR ( Amer) 35, Est GFR ( Non-Af Amer) 29, Random Glucose 98, Calcium 9.5, Total Bilirubin 0.6, AST 27, ALT 28, Alkaline Phosphatase 87, Lactate Dehydrogenase 629, Total Creatine Kinase 38, Troponin I 0.03 D, NT-Pro-B Natriuret Pep 3610 H, Total Protein 8.0 , Albumin 4.0, Globulin 4.0, Albumin/Globulin Ratio 1.0 L 08/17/17 05:35: PT 18.1 H, INR 1.56 H 08/17/17 04:00: WBC 7.8 D, RBC 4.22, Hgb 10.2 L, Hct 33.1 L, MCV 78.4 L, MCH 24.2 L, MCHC 30.8 L, RDW 19.4 H, Plt Count 349, MPV 9.5, Gran % 76.8 H, Lymph % (Auto) 13.2 L, Tyrrell % (Auto) 6.3 H, Eos % (Auto) 3.1, Baso % (Auto) 0.6, Gran # 5.99, Lymph # (Auto) 1.0 L, Tyrrell # (Auto) 0.5, Eos # (Auto) 0.2, Baso # (Auto) 0.05 I have reviewed the lab results: Yes - RAD Interpretation Radiology Orders: 08/17/17 02:45 CHEST PORTABLE [RAD] Stat - EKG Interpretation Interpreted by ED Physician: Yes Type: 12 lead EKG - Scribe Statement The provider has reviewed the documentation as recorded by the Main Jones Provider Scribe Attestation: All medical record entries made by the Main were at my direction and personally dictated by me. I have reviewed the chart and agree that the record accurately reflects my personal performance of the history, physical exam, medical decision making, and the department course for this patient. I have also personally directed, reviewed, and agree with the discharge instructions and disposition. Disposition/Present on Arrival - Present on Arrival Any Indicators Present on Arrival: No History of DVT/PE: No History of Uncontrolled Diabetes: No Urinary Catheter: No History of Decub. Ulcer: No History Surgical Site Infection Following: None - Disposition Have Diagnosis and Disposition been Completed?: Yes Diagnosis: CHF (congestive heart failure), Anxiety, Hyperventilation syndrome Disposition: HOME/ ROUTINE Disposition Time: 06:23 Patient Plan: Discharge Condition: GOOD Discharge Instructions (ExitCare): Heart Failure (ED), Heart Failure and Atrial Fibrillation Additional Instructions: Mrs Baker - Everything checked out OK. Please follow up with Dr. Farris about your Lasix dose- call him later this morning. Best- Dr. Naren Stevens Referrals: Marco Farris S, DO [Primary Care Provider] - Follow up with primary Forms: [employer] (Lao)
[2017-08-17 04:22] LABS: BASO # 0.05 K/mm3 (0.0-2.0); BASO % 0.6 % (0.0-3.0); EOS # 0.2 (0.0-0.7); EOS % 3.1 % (1.5-5.0); GRAN # 5.99 (1.4-6.5); GRAN % 76.8 % (50.0-68.0); HEMOGLOBIN 10.2 g/dL (12.0-16.0); LYMPH % 13.2 % (22.0-35.0); MEAN CELL VOLUME 78.4 fl (80.0-105.0); MEAN CORPUSCULAR HEMOGLOBIN 24.2 pg (25.0-35.0); MEAN CORPUSCULAR HGB CONC 30.8 g/dl (31.0-37.0); MEAN PLATELET VOLUME 9.5 fl (7.0-11.0); MONO # 0.5 (0.1-0.6); MONO % 6.3 % (1.0-6.0); RBC 4.22 10^6/uL (3.5-6.1); RED CELL DISTRIBUTION WIDTH 19.4 % (11.5-14.5); WHITE BLOOD COUNT 7.8 10^3/ul (4.5-11.0)
[2017-08-17 05:53] LABS: INR 1.56 (0.93-1.08); PROTHROMBIN TIME 18.1 SECONDS (9.4-12.5)
[2017-08-17 06:13] LABS: CALCIUM 9.5 mg/dL (8.4-10.5)
[2017-08-17 06:14] LABS: TROPONIN I 0.03 ng/mL
[2017-08-17] MEDS ORDERED: Oxycodone/Acetaminophen 5/325 mg Tab PO STA (06:36)
[2017-08-17 08:45] VITALS: BP 158/68; PULSE 62; RESP 17; O2SAT 96
--- NOTE | 2017-08-17 09:53 | RAD ---
HISTORY: Anxiety and Hyperventilation COMPARISON: 08/14/2017 FINDINGS: LUNGS: No active pulmonary disease. PLEURA: No significant pleural effusion identified, no pneumothorax apparent. CARDIOVASCULAR: Permanent pacemaker. Normal heart size. No congestive change. OSSEOUS STRUCTURES: No significant abnormalities. VISUALIZED UPPER ABDOMEN: Normal. OTHER FINDINGS: None. IMPRESSION: No active disease.
--- NOTE | 2017-08-17 13:57 | CARD ---
APPROVED REPORT EKG Measurement Heart [id number] <Conclusion> Atrial flutter with 4:1 AV conduction Right bundle branch block Left anterior fascicular block Bifascicular block Left ventricular hypertrophy with repolarization abnormality Anteroseptal infarct, age undetermined Abnormal ECG
== END 2017-08-17 08:43 | disposition home or self-care (01) ==
LOC: ED 02:18
DX: R06.4 Hyperventilation (principal); I50.9 Heart failure, unspecified; F41.9 Anxiety disorder, unspecified; E78.00 Pure hypercholesterolemia, unspecified; I48.91 Unspecified atrial fibrillation; Z79.01 Long term (current) use of anticoagulants; Z87.891 Personal history of nicotine dependence; I12.9 Hypertensive chronic kidney disease with stage 1 through stage 4 chronic kidney disease, or unspecified chronic kidney disease; N18.9 Chronic kidney disease, unspecified

== ENCOUNTER 2017-09-01 05:06 | Emergency (ER) | payer MEDICARE ==
[2017-09-01 05:08] VITALS: PULSE 45
[2017-09-01 05:13] VITALS: BMI 22.1
[2017-09-01 05:18] VITALS: O2SAT 100
--- NOTE | 2017-09-01 05:53 | ED PDOC ---
Arrival/HPI - General Chief Complaint: Lower Extremity Problem/Injury Time Seen by Provider: 09/01/17 05:18 Historian: Patient - History of Present Illness Narrative History of Present Illness (Text): 09/01/17 05:48 81 year old female, whose past medical history includes chronic renal insufficiency, renal cancer/mass s/p R nephrectomy, anxiety, chronic bilateral lower extremity pain, COPD, anemia, GI bleed, lung cancer s/p lobectomy, hypercholesterolemia, hypertension, ckd, and Afib on OAC eliquis, presents to the Emergency department complaining of bilateral leg discomfort since 2 days. Patient informs associated occasional shortness of breath but none currently. Patient denies any fever, chills, nausea, vomiting, diarrhea, abdominal pain, chest pain, trauma or any other complaints. Time/Duration: < week (2 days) Symptom Onset: Gradual Symptom Course: Unchanged Activities at Onset: Light Context: Home Past Medical History - Provider Review Nursing Documentation Reviewed: Yes - Infectious Disease Hx of Infectious Diseases: None - Tetanus Immunization Tetanus Immunization: >10 years Ago - Reproductive Menopause: Yes - Cardiac Hx Hypertension: Yes - Pulmonary Hx Chronic Obstructive Pulmonary Disease (COPD): Yes - Neurological Hx Neurological Disorder: Yes Hx Dementia: Yes Hx Dizziness: Yes (SYNCOPE) Other/Comment: pt denies cva - HEENT Hx HEENT Disorder: Yes (glasses) - Renal Hx Renal Disorder: Yes Hx Renal Cancer: (pt denies) Other/Comment: r nephrectomy - Endocrine/Metabolic Hx Endocrine Disorders: No - Hematological/Oncological Hx Blood Disorders: Yes Hx Anemia: Yes (blood transfusions) Hx Cancer: No - Integumentary Hx Dermatological Disorder: Yes Other/Comment: dry flakey red ad brown skin to circumference of right forearm, pt thinks her bracelets may have irritated her skin , c/o of stinging pain has had this "couple weeks", multiple small round light skin discolorations ble - Musculoskeletal/Rheumatological Hx Musculoskeletal Disorders: Yes (sciatica) Hx Arthritis: Yes Hx Back Pain: Yes Hx Falls: Yes (past) Hx Unsteady Gait: Yes (cane) - Gastrointestinal Hx Gastrointestinal Disorders: Yes (rectal bleeding) Hx Gastroesophageal Reflux: Yes Hx Pancreatitis: Yes Other/Comment: pt's appetite "improving" stated pt 'I starting to gain weight back." - Genitourinary/Gynecological Hx Genitourinary Disorders: No - Psychiatric Hx Psychophysiologic Disorder: Yes Hx Anxiety: Yes Hx Substance Use: No - Surgical History Hx Mastectomy: No Other/Comment: r nephrectomy - Anesthesia Hx Anesthesia: Yes Hx Anesthesia Reactions: No Hx Malignant Hyperthermia: No Family/Social History - Physician Review Nursing Documentation Reviewed: Yes Family/Social History: No Known Family HX Smoking Status: Former Smoker Hx Alcohol Use: No Hx Substance Use: No Allergies/Home Meds Allergies/Adverse Reactions: Allergies No Known Allergies Allergy (Verified 09/01/17 05:22) Home Medications: Home Meds Medication Instructions Recorded Confirmed Atorvastatin [Lipitor] 20 mg PO DAILY 08/12/17 08/17/17 Warfarin [Coumadin] 3 mg PO DAILY 08/12/17 08/17/17 amLODIPine [Norvasc] 5 mg PO DAILY 08/12/17 08/17/17 traMADol [Ultram] 50 mg PO BID 08/12/17 08/17/17 Review of Systems - Physician Review All systems were reviewed & negative as marked: Yes - Review of Systems Constitutional: Normal. absent: Fevers Eyes: Normal ENT: Normal Respiratory: Normal. absent: SOB Cardiovascular: Normal. absent: Chest Pain Gastrointestinal: Normal. absent: Abdominal Pain, Diarrhea, Nausea, Vomiting Genitourinary Female: Normal Musculoskeletal: Other (bilateral leg swelling) Skin: Normal Neurological: Normal Endocrine: Normal Hemo/Lymphatic: Normal Psychiatric: Normal Physical Exam Vital Signs Reviewed: Yes Vital Signs Pulse Resp BP Pulse Ox 09/01/17 05:18 74 14 132/78 100 Temperature: Afebrile Blood Pressure: Normal Pulse: Regular Respiratory Rate: Normal Appearance: Positive for: Well-Appearing, Non-Toxic, Comfortable Pain Distress: None Mental Status: Positive for: Alert and Oriented X 3 - Systems Exam Head: Present: Atraumatic, Normocephalic Pupils: Present: PERRL Extroacular Muscles: Present: EOMI Conjunctiva: Present: Normal Mouth: Present: Moist Mucous Membranes Neck: Present: Normal Range of Motion Respiratory/Chest: Present: Clear to Auscultation, Good Air Exchange. No: Respiratory Distress, Accessory Muscle Use Cardiovascular: Present: Regular Rate and Rhythm, Normal S1, S2. No: Murmurs Abdomen: No: Tenderness, Distention, Peritoneal Signs Back: Present: Normal Inspection Upper Extremity: Present: Normal Inspection. No: Cyanosis, Edema Lower Extremity: Present: Normal Inspection, Normal ROM, Neurovascularly Intact. No: Edema, CALF TENDERNESS, Bhargavi's Sign Neurological: Present: GCS=15, CN II-XII Intact, Speech Normal Skin: Present: Warm, Dry, Normal Color. No: Rashes Psychiatric: Present: Alert, Oriented x 3, Normal Insight, Normal Concentration Medical Decision Making ED Course and Treatment: 09/01/17 05:46 Impression: 81 year old female presents to the Emergency department for bilateral leg discomfort. Plan: -- EKG -- Labs -- US of Lower Extremity -- Reassess and disposition Prior Visits: Notes and results from previous visits were reviewed. Progress Notes: 09/01/17 07:00 Case endorsed to /pending labs/venous doppler U/S/reassess/final disposition - RAD Interpretation Radiology Orders: 09/01/17 05:46 DUPLEX LOWER EXTRM VEIN BILAT [US] Stat - Scribe Statement The provider has reviewed the documentation as recorded by the Scribe Nixon Jack. All medical record entries made by the Scribe were at my direction and personally dictated by me. I have reviewed the chart and agree that the record accurately reflects my personal performance of the history, physical exam, medical decision making, and the department course for this patient. I have also personally directed, reviewed, and agree with the discharge instructions and disposition. Disposition/Present on Arrival - Present on Arrival Any Indicators Present on Arrival: No History of DVT/PE: No History of Uncontrolled Diabetes: No Urinary Catheter: No History of Decub. Ulcer: No History Surgical Site Infection Following: None - Disposition Have Diagnosis and Disposition been Completed?: No Diagnosis: Leg pain Disposition Time: 07:00 Condition: STABLE Forms: [employer] (Estonian)
[2017-09-01 06:47] LABS: HEMOGLOBIN 8.8 g/dL (12.0-16.0); MEAN CELL VOLUME 72.8 fl (80.0-105.0); MEAN CORPUSCULAR HEMOGLOBIN 22.4 pg (25.0-35.0); MEAN CORPUSCULAR HGB CONC 30.8 g/dl (31.0-37.0); MEAN PLATELET VOLUME 9.2 fl (7.0-11.0); RBC 3.93 10^6/uL (3.5-6.1); RED CELL DISTRIBUTION WIDTH 19.2 % (11.5-14.5); WHITE BLOOD COUNT 4.5 10^3/ul (4.5-11.0)
[2017-09-01 07:08] LABS: ALBUMIN 4.2 g/dL (3.0-4.8); CALCIUM 9.3 mg/dL (8.4-10.5); TROPONIN I 0.03 ng/mL
[2017-09-01 07:13] LABS: INR 3.29 (0.93-1.08); PARTIAL THROMBOPLASTIN TIME 39.9 Seconds (25.1-36.5); PROTHROMBIN TIME 38.8 SECONDS (9.4-12.5)
[2017-09-01] MEDS ORDERED: Sod Polystyrene Sulf 15 gm/60 ml Susp PO STA (07:27)
--- NOTE | 2017-09-01 07:33 | ED PDOC ---
Physical Exam Vital Signs Temp Pulse Resp BP Pulse Ox 09/01/17 08:15 98.4 F 09/01/17 08:04 82 16 100 09/01/17 05:18 74 14 132/78 100 Medical Decision Making ED Course and Treatment: 09/01/17 07:30 Patient endorsed to me by . Follow-up on sonogram and labs. Will reevaluate and dispo. 09/01/17 08:52 Discussed case with , who knows the patient well and I reviewed lab and US results with him. He states her hgb has been low before which is why he stopped he coumadin. He will follow up with patient this week, and advised that patient be discharged home. 09/01/17 08:59 On reevaluation patient feels better and no longer experiencing any pain. She will follow up with as an outpatient. - Lab Interpretations Lab Results: 09/01/17 06:18 09/01/17 06:18 Lab Results 09/01/17 06:18: NT-Pro-B Natriuret Pep 1170 H 09/01/17 06:18: WBC 4.5 D, RBC 3.93, Hgb 8.8 L, Hct 28.6 L, MCV 72.8 L D, MCH 22.4 L, MCHC 30.8 L, RDW 19.2 H, Plt Count 357, MPV 9.2 09/01/17 06:18: Sodium 140, Potassium 5.5 H, Chloride 105, Carbon Dioxide 21, Anion Gap 20, BUN 61 H, Creatinine 2.4 H, Est GFR ( Amer) 23, Est GFR ( Non-Af Amer) 19, Random Glucose 85, Calcium 9.3, Total Bilirubin 0.3, AST 35, ALT 26, Alkaline Phosphatase 95, Lactate Dehydrogenase 622, Total Creatine Kinase 52, Troponin I 0.03, Total Protein 8.2, Albumin 4.2, Globulin 4.0, Albumin/Globulin Ratio 1.0 L 09/01/17 06:18: PT 38.8 H, INR 3.29 H, APTT 39.9 H - RAD Interpretation Radiology Orders: 09/01/17 05:46 DUPLEX LOWER EXTRM VEIN BILAT [US] Stat - Medication Orders Current Medication Orders: Discontinued Medications Sodium Polystyrene Sulfonate (Kayexalate Susp) 15 gm PO STAT STA Stop: 09/01/17 07:28 Last Admin: 09/01/17 08:38 Dose: 15 gm - Scribe Statement The provider has reviewed the documentation as recorded by the Luliibnoemi Cruz Provider Scribe Attestation: All medical record entries made by the Scribe were at my direction and personally dictated by me. I have reviewed the chart and agree that the record accurately reflects my personal performance of the history, physical exam, medical decision making, and the department course for this patient. I have also personally directed, reviewed, and agree with the discharge instructions and disposition. Disposition/Present on Arrival - Present on Arrival Any Indicators Present on Arrival: No History of DVT/PE: No History of Uncontrolled Diabetes: No Urinary Catheter: No History of Decub. Ulcer: No History Surgical Site Infection Following: None - Disposition Have Diagnosis and Disposition been Completed?: Yes Diagnosis: Leg pain, Hyperkalemia Disposition: HOME/ ROUTINE Disposition Time: 09:05 Patient Plan: Discharge Patient Problems: Current Active Problems Problem Status Onset Leg pain Acute Hyperkalemia Acute Condition: IMPROVED Discharge Instructions (ExitCare): Hyperkalemia, Muscle and Bone Pain (DC) Additional Instructions: YENIFER URBINA, thank you for letting us take care of you today. Your provider was Lázaro Reeves DO and you were treated for BILATERAL LEG PAIN, HYPERKALEMIA. The emergency medical care you received today was directed at your acute symptoms. If you were prescribed any medication, please fill it and take as directed. It may take several days for your symptoms to resolve. Return to the Emergency Department if your symptoms worsen, do not improve, or if you have any other problems. Please contact your doctor or call one of the physicians/clinics you have been referred to that are listed on the Patient Visit Information form that is included in your discharge packet. Bring any paperwork you were given at discharge with you along with any medications you are taking to your follow up visit. Our treatment cannot replace ongoing medical care by a primary care provider outside of the emergency department. Thank you for allowing the [facility] team to be part of your care today. If you had an X-Ray or CT scan: A Radiologist will review the ED reading if any change in treatment is needed we will contact you. If you had a blood, urine, or wound culture: It will take several days for the results, if any change in treatment is needed we will contact you. If you had an STI test: It will take 48 hours for the results. Please call after 1 week if you have not heard back. Referrals: Marco Farris, [Primary Care Provider] - Follow up with primary Forms: [facility] (Yemeni), WORK NOTE
[2017-09-01 08:36] VITALS: TEMP 98.4
[2017-09-01 09:30] VITALS: BP 126/67; PULSE 76; RESP 18
--- NOTE | 2017-09-01 13:02 | CARD ---
APPROVED REPORT EKG Measurement Heart [id number] <Conclusion> Electronic ventricular pacemaker Underlying rhythm is Atrial flutter
== END 2017-09-01 09:22 | disposition home or self-care (01) ==
LOC: ED 05:06
DX: M79.605 Pain in left leg (principal); M79.604 Pain in right leg; E87.5 Hyperkalemia; E78.00 Pure hypercholesterolemia, unspecified; I12.9 Hypertensive chronic kidney disease with stage 1 through stage 4 chronic kidney disease, or unspecified chronic kidney disease; N18.9 Chronic kidney disease, unspecified; I48.91 Unspecified atrial fibrillation; Z79.01 Long term (current) use of anticoagulants; Z87.891 Personal history of nicotine dependence

== ENCOUNTER 2017-09-24 02:26 | Inpatient (IN) | payer MEDICARE ==
[2017-09-24 02:27] VITALS: PULSE 45
[2017-09-24 02:36] VITALS: BMI 20.7
--- NOTE | 2017-09-24 03:05 | ED PDOC ---
Arrival/HPI - General Chief Complaint: Shortness Of Breath Time Seen by Provider: 09/24/17 03:02 Historian: Patient - History of Present Illness Narrative History of Present Illness (Text): 09/24/17 03:05 81 year old female, whose past history includes chronic renal insufficiency, renal cancer/mass s/p R nephrectomy, anxiety, chronic bilateral lower extremity pain, COPD, anemia, GI bleed, lung cancer s/p lobectomy, hypercholesterolemia, hypertension, ckd, and Afib on OAC eliquis, present to the Emergency department complaining of dyspnea on exertion. Patient reports symptoms started a few days go and denies any fever, chills, chest pain, nausea, vomiting, diarrhea, headache, dizziness, or any other complaints. Time/Duration: Other (a few days ) Symptom Onset: Gradual Symptom Course: Unchanged Quality: Pressure Activities at Onset: Light Context: Home Past Medical History - Provider Review Nursing Documentation Reviewed: Yes - Infectious Disease Hx of Infectious Diseases: None - Tetanus Immunization Tetanus Immunization: >10 years Ago - Cardiac Hx Hypertension: Yes - Pulmonary Hx Chronic Obstructive Pulmonary Disease (COPD): Yes - Neurological Hx Neurological Disorder: Yes Hx Dementia: Yes Hx Dizziness: Yes (SYNCOPE) Other/Comment: pt denies cva - HEENT Hx HEENT Disorder: Yes (glasses) - Renal Hx Renal Disorder: Yes Hx Renal Cancer: (pt denies) Other/Comment: r nephrectomy - Endocrine/Metabolic Hx Endocrine Disorders: No - Hematological/Oncological Hx Blood Disorders: Yes Hx Anemia: Yes (blood transfusions) Hx Cancer: No - Integumentary Hx Dermatological Disorder: Yes Other/Comment: dry flakey red ad brown skin to circumference of right forearm, pt thinks her bracelets may have irritated her skin , c/o of stinging pain has had this "couple weeks", multiple small round light skin discolorations ble - Musculoskeletal/Rheumatological Hx Musculoskeletal Disorders: Yes (sciatica) Hx Arthritis: Yes Hx Back Pain: Yes Hx Falls: Yes (past) Hx Unsteady Gait: Yes (cane) - Gastrointestinal Hx Gastrointestinal Disorders: Yes (rectal bleeding) Hx Gastroesophageal Reflux: Yes Hx Pancreatitis: Yes Other/Comment: pt's appetite "improving" stated pt 'I starting to gain weight back." - Genitourinary/Gynecological Hx Genitourinary Disorders: No - Psychiatric Hx Psychophysiologic Disorder: Yes Hx Anxiety: Yes Hx Substance Use: No - Surgical History Hx Mastectomy: No Other/Comment: r nephrectomy - Anesthesia Hx Anesthesia: Yes Hx Anesthesia Reactions: No Hx Malignant Hyperthermia: No Family/Social History - Physician Review Nursing Documentation Reviewed: Yes Family/Social History: Unknown Family HX Smoking Status: Former Smoker Hx Alcohol Use: No Hx Substance Use: No Allergies/Home Meds Allergies/Adverse Reactions: Allergies No Known Allergies Allergy (Verified 09/24/17 12:30) Home Medications: Home Meds Medication Instructions Recorded Confirmed Atorvastatin [Lipitor] 20 mg PO DAILY 08/12/17 09/24/17 amLODIPine [Norvasc] 5 mg PO DAILY 08/12/17 09/24/17 Review of Systems - Physician Review All systems were reviewed & negative as marked: Yes - Review of Systems Constitutional: absent: Fevers Respiratory: Other (Dyspnea on Exertion) Cardiovascular: absent: Chest Pain Gastrointestinal: absent: Abdominal Pain, Nausea, Vomiting Musculoskeletal: absent: Back Pain, Neck Pain Skin: Normal Neurological: absent: Headache, Dizziness Physical Exam Vital Signs Reviewed: Yes Vital Signs Temp Pulse Resp BP Pulse Ox 09/24/17 07:55 98.4 F 61 14 122/65 100 09/24/17 06:59 66 18 127/70 100 09/24/17 04:13 146/78 09/24/17 04:01 80 22 147/81 100 09/24/17 02:44 88 12 125/72 100 09/24/17 02:34 98.4 F Temperature: Afebrile Blood Pressure: Normal Pulse: Regular Respiratory Rate: Normal Appearance: Positive for: Well-Appearing, Non-Toxic, Comfortable Pain Distress: None Mental Status: Positive for: Alert and Oriented X 3 - Systems Exam Head: Present: Atraumatic Pupils: Present: PERRL Extroacular Muscles: Present: EOMI Conjunctiva: Present: Normal Mouth: Present: Moist Mucous Membranes Neck: Present: Normal Range of Motion Respiratory/Chest: Present: Rhonchi (scattered Ronchi ). No: Clear to Auscultation, Good Air Exchange, Respiratory Distress, Accessory Muscle Use, Wheezes, Decreased Breath Sounds, Rales, Retracting, Tachypneic, Tender to Palpation, Other Cardiovascular: Present: Regular Rate and Rhythm, Normal S1, S2. No: Murmurs Abdomen: No: Tenderness, Distention, Peritoneal Signs Back: Present: Normal Inspection Upper Extremity: Present: Normal Inspection. No: Cyanosis, Edema Lower Extremity: Present: Normal Inspection. No: Edema Neurological: Present: GCS=15, CN II-XII Intact, Speech Normal Skin: Present: Warm, Dry, Normal Color. No: Rashes Psychiatric: Present: Alert, Oriented x 3, Normal Insight, Normal Concentration Medical Decision Making ED Course and Treatment: 09/24/17 03:05 Impression: 81 year old female presenting to the Emergency department complaining of dyspnea on exertion. Plan: -- EKG -- Labs -- Chest X-ray -- Reassess and disposition Prior Visits: Notes and results from previous visits were reviewed. Patient was last seen in the emergency department on 09/01/17 for leg and was discharged when symptoms improved. Progress Notes: 09/24/17 03:35 EKG reviewed, shows 100% paced rhythm at 78 bpm. 09/24/17 04:01 Chest X-ray reviewed, shows increased pulmonary vascular markings. 09/24/17 05:[address] Farris, who is aware and agrees with plan. Accepts pt in to his service. Pt will be admitted to Telemetry observation for CHF. Requests Dr. Fonseca on consult. - Lab Interpretations Lab Results: 09/24/17 02:50 09/24/17 02:50 Lab Results 09/24/17 02:50: WBC 5.1, RBC 3.78, Hgb 8.0 L, Hct 26.8 L, MCV 70.9 L, MCH 21.2 L , MCHC 29.9 L, RDW 21.9 H, Plt Count 187 09/24/17 02:50: Sodium 147, Potassium 5.1 H, Chloride 113 H, Carbon Dioxide 22, Anion Gap 18, BUN 40 H, Creatinine 1.6 H, Est GFR ( Amer) 37, Est GFR ( Non-Af Amer) 31, Random Glucose 101, Calcium 8.9, Total Bilirubin 0.5, AST 48 H D, ALT 37, Alkaline Phosphatase 95, Lactate Dehydrogenase 780 H, Total Creatine Kinase 46, Troponin I 0.02 D, NT-Pro-B Natriuret Pep 3160 H, Total Protein 7.6 , Albumin 3.7, Globulin 3.9, Albumin/Globulin Ratio 0.9 L 09/24/17 02:50: PT 13.1 H, INR 1.15 H, APTT 24.7 L I have reviewed the lab results: Yes - RAD Interpretation Radiology Orders: 09/24/17 CHEST PORTABLE [RAD] Stat Interface Developer: ED Physician - EKG Interpretation Interpreted by ED Physician: Yes Type: 12 lead EKG - Medication Orders Current Medication Orders: Acetaminophen (Tylenol 325mg Tab) 650 mg PO Q6H PRN PRN Reason: Pain, moderate (4-7) Last Admin: 09/24/17 11:12 Dose: 650 mg [facility] Pain/Vitals Document 09/24/17 11:12 (Rec: 09/24/17 11:13 [id number]) Pain Reassessment Is This A Pain ReAssessment? No Sleep Is patient sleeping during reassessment? No Presence of Pain Presence of Pain Yes Pain Scale Used Pain Scale Used Numeric Location Left, Right or Bilateral Bilateral Pain Location Body Site legs Description Intermittent Intensity 10 Scale Used Numeric Radiation Location foot Variations/Patterns on/off Site Observation unremarkable Pain Behavior Moaning Rubbing Site Facial Grimacing Aggravating Factors None Alleviating Factors Medication Re-Assess: [facility] Pain/Vitals Document 09/24/17 12:12 (Rec: 09/24/17 13:27 [id number] Pain Reassessment Is This A Pain ReAssessment? Yes Sleep Is patient sleeping during reassessment? No Presence of Pain Presence of Pain No Amlodipine Besylate (Norvasc) 5 mg PO DAILY [facility] Last Admin: 09/24/17 11:27 Dose: 5 mg [facility] Pulse and Blood Pressure Document 09/24/17 11:27 (Rec: 09/24/17 11:27 [id number]) Pulse Pulse Rate (60-90) 78 Blood Pressure Blood Pressure (100/60-150/90) 119/68 Apixaban (Eliquis) 2.5 mg PO BID [facility] PRN Reason: Protocol Last Admin: 09/24/17 11:11 Dose: 2.5 mg Aspirin (Aspirin Chewable) 81 mg PO DAILY [facility] Last Admin: 09/24/17 11:11 Dose: 81 mg Atorvastatin Calcium (Lipitor) 20 mg PO DAILY [facility] Last Admin: 09/24/17 11:12 Dose: 20 mg Diltiazem HCl (Cardizem Cd) 180 mg PO DAILY [facility] Last Admin: 09/24/17 11:26 Dose: 180 mg MAR Pulse and Blood Pressure Document 09/24/17 11:26 (Rec: 09/24/17 11:27 [id number]) Pulse Pulse Rate (60-90) 78 Blood Pressure Blood Pressure (100/60-150/90) 119/68 Donepezil HCl (Aricept) 10 mg PO HS ISAI Furosemide (Lasix) 20 mg PO DAILY [facility] Metoprolol Tartrate (Lopressor) 25 mg PO BID [facility] Last Admin: 09/24/17 11:26 Dose: 25 mg MAR Pulse and Blood Pressure Document 09/24/17 11:26 SG (Rec: 09/24/17 11:26 [id number]) Pulse Pulse Rate (60-90) 78 Blood Pressure Blood Pressure (100/60-150/90) 119/68 Pantoprazole Sodium (Protonix Ec Tab) 40 mg PO BID [facility] Last Admin: 09/24/17 11:11 Dose: 40 mg Tramadol HCl (Ultram) 25 mg PO Q8 PRN PRN Reason: Pain, moderate (4-7) Last Admin: 09/24/17 16:26 Dose: 25 mg MAR Pain Assessment Document 09/24/17 16:26 (Rec: 09/24/17 16:27 [id number]) Pain Reassessment Is this a pain reassessment? No Sleep Is patient sleeping during reassessment? No Presence of Pain Presence of Pain Yes Pain Scale Used Pain Scale Used Numeric Location Left, Right or Bilateral Bilateral Pain Location Body Site Foot Description Description Intermittent Intensity of Pain at present 8 Acceptable Level of Pain 3 Radiation Location les Variations/Patterns on/off Site Observation unremarkable Pain Behavior Rubbing Site Facial Grimacing Aggravating Factors None Alleviating Factors/Management Medication Techniques Alleviating Factors Medication Discontinued Medications Furosemide (Lasix) 40 mg IVP ONCE ONE Stop: 09/24/17 04:04 Last Admin: 09/24/17 04:13 Dose: 40 mg MAR Blood Pressure Document 09/24/17 04:13 CNR (Rec: 09/24/17 04:13 CNR [id number]) Blood Pressure Blood Pressure (100/60-150/90) 146/78 IVP Administration Document 09/24/17 04:13 CNR (Rec: 09/24/17 04:13 CNR [id number]) Charges for Administration # of IVP Administrations 1 Non-Formulary Medication (Diltiazem [Cardizem]) 180 mg PO DAILY [facility] Pneumococcal Polyvalent Vaccine (Pneumovax 23 Vaccine) 0.5 ml IM .ONCE ONE Stop: 09/24/17 13:18 - Scribe Statement The provider has reviewed the documentation as recorded by the Main [employer] training under [place]ata Mc[place] All medical record entries made by the Luliibnoemi were at my direction and personally dictated by me. I have reviewed the chart and agree that the record accurately reflects my personal performance of the history, physical exam, medical decision making, and the department course for this patient. I have also personally directed, reviewed, and agree with the discharge instructions and disposition. Disposition/Present on Arrival - Present on Arrival Any Indicators Present on Arrival: No History of DVT/PE: No History of Uncontrolled Diabetes: No Urinary Catheter: No History of Decub. Ulcer: No History Surgical Site Infection Following: None - Disposition Have Diagnosis and Disposition been Completed?: Yes Diagnosis: CHF (congestive heart failure) Disposition: HOSPITALIZED Disposition Time: 05:05 Patient Problems: Current Active Problems Problem Status Onset CHF (congestive heart failure) Acute Condition: STABLE
[2017-09-24 03:32] LABS: MEAN CELL VOLUME 70.9 fl (80.0-105.0); MEAN CORPUSCULAR HEMOGLOBIN 21.2 pg (25.0-35.0); MEAN CORPUSCULAR HGB CONC 29.9 g/dl (31.0-37.0); PLATELET COUNT 187 10^3/uL (120.0-450.0); RBC 3.78 10^6/uL (3.5-6.1); RED CELL DISTRIBUTION WIDTH 21.9 % (11.5-14.5); WHITE BLOOD COUNT 5.1 10^3/ul (4.5-11.0)
[2017-09-24 03:47] LABS: PROTHROMBIN TIME 13.1 SECONDS (9.4-12.5)
[2017-09-24 03:48] LABS: INR 1.15 (0.93-1.08); PARTIAL THROMBOPLASTIN TIME 24.7 Seconds (25.1-36.5)
[2017-09-24 03:49] LABS: ALB/GLOB RATIO 0.9 (1.1-1.8); ALBUMIN 3.7 g/dL (3.0-4.8); CALCIUM 8.9 mg/dL (8.4-10.5)
[2017-09-24 03:52] LABS: TROPONIN I 0.02 ng/mL
--- NOTE | 2017-09-24 08:44 | RAD ---
Date of service: 09/24/2017 HISTORY: sob COMPARISON: 08/17/2017 FINDINGS: LUNGS: No active pulmonary disease. PLEURA: No significant pleural effusion identified, no pneumothorax apparent. CARDIOVASCULAR: Mild cardiomegaly. Moderate vascular congestion OSSEOUS STRUCTURES: No significant abnormalities. VISUALIZED UPPER ABDOMEN: Normal. OTHER FINDINGS: Single lead pacemaker IMPRESSION: Mild cardiomegaly. Moderate vascular congestion
[2017-09-24] MEDS ORDERED: DILTIAZEM 180 MG PO SCH (10:00)
--- NOTE | 2017-09-24 10:59 | CARD ---
APPROVED REPORT Date of service: 09/24/2017 EKG Measurement Heart [id number] <Conclusion> Electronic ventricular pacemaker
[2017-09-24] MEDS: Pantoprazole 40 mg EC Tab PO SCH ×2 (11:11→17:40)
[2017-09-24] MEDS: diltiaZEM 180 mg/24 Hours CD Cap PO SCH (11:26)
[2017-09-24] MEDS ORDERED: Pneumococcal 23-Valent Vaccine IM ONE (13:17)
--- NOTE | 2017-09-24 19:32 | HP ---
HISTORY OF PRESENT ILLNESS: I know Sarah Baker very well from house calls and hospital admissions. She is an 81-year-old female, who comes in with bilateral lower extremity pain and swelling, shortness of breath and dyspnea on exertion. She tells me she is taking the water pill, but I do not think so. I know her very well and I think she is out of that medication. PAST MEDICAL HISTORY: She has a past medical history of chronic renal insufficiency; renal cancer mass, status post a right nephrectomy; anxiety; chronic bilateral lower extremity pain and swelling; COPD; anemia; GI bleed; lung cancer with lobectomy; high cholesterol; hypertension; chronic kidney disease; atrial fibrillation, on Eliquis and she is off Coumadin, no more Coumadin and she is short of breath; a little bit of dementia; wears glasses; blood transfusions in the past; she has dry skin; history of sciatica; arthritis; back pains; falls; she uses a cane. She had rectal bleeding in the past; GERD; pancreatitis; on and off appetite. She does have anxiety; hypertension; diabetes in the family; former smoker. No alcohol. No drugs. ALLERGIES: NO KNOWN DRUG ALLERGIES. REGULAR MEDICATIONS: Aricept, aspirin, Cardizem, Eliquis, Lasix, Lipitor, Lopressor, Norvasc, Protonix. She used to be on Coumadin, that was stopped. During the appointment on a house call, I threw away the Coumadin because she was still taking. Discussed with the family also. REVIEW OF SYSTEMS: She was short of breath and short of breath with motion. No fevers. No chest pain or palpitations, which is good for her, but dyspnea on exertion, short of breath, swelling of the legs. No abdominal pain. No nausea, vomiting and back pain. No neck pain. No skin issues. No headaches or dizziness. PHYSICAL EXAMINATION: VITAL SIGNS: Temperature 98.4, 88 pulse, 22 respiratory rate, 147/81 blood pressure, and 100% on oxygen. GENERAL: She is well appearing at this time, sitting up in bed. HEENT: Head is atraumatic and normocephalic. Extraocular muscles are intact. Pupils are equal and reactive to light. Throat is dry. NECK: Supple. Thyroid midline. No palpable appreciable lymphadenopathy. HEART: Irregular rate. S1 and S2 are present. LUNGS: Rhonchi, scattered, congestion, rales: When she was asked to take a deep breath, she coughs a little bit we can hear the congestion. ABDOMEN: Soft, nontender. Positive bowel sounds. No guarding, no rebound, no CVA tenderness. EXTREMITIES: With +2/4 pitting edema. NEUROLOGIC: GCS is 15. Cranial nerves II-XII grossly intact. Alert and oriented x3. SKIN: Warm and dry. No apparent rashes. LABORATORY DATA: She has 5.1 white count, 8 hemoglobin, 26.8 hematocrit with 187 platelets. I will check her stools for blood. Sodium 147, potassium 5.1, chloride 113, CO2 is 22. Anion gap is 18, BUN 40, creatinine 1.6, GFR is 37. Sugar is 101, calcium is 8.9, total bilirubin is 0.5, AST is 48, ALT is 37, alkaline phosphatase 95, lactate dehydrogenase is 780. Total creatine kinase is 46. Troponin I is 0.02. BNP is very high at 3160. Total protein 7.6. INR is 1.15. ASSESSMENT AND PLAN: She was given Lasix intravenously 40 in the ER. Chest x-ray is pending. So, I will have a consult with Dr. Fonseca, infant nanny. I put her back on the medications, rechecking the labs, ordered physical therapy, put her on oxygen and occult blood. She might need transfusions. The patient is here for dyspnea on exertion, congestive heart failure, atrial fibrillation, dementia, and anemia. Marco Farris DO
[2017-09-25 06:46] LABS: HEMOGLOBIN 8.3 g/dL (12.0-16.0); MEAN CELL VOLUME 71.4 fl (80.0-105.0); MEAN CORPUSCULAR HEMOGLOBIN 21.2 pg (25.0-35.0); MEAN CORPUSCULAR HGB CONC 29.7 g/dl (31.0-37.0); MEAN PLATELET VOLUME 8.9 fl (7.0-11.0); RBC 3.91 10^6/uL (3.5-6.1); RED CELL DISTRIBUTION WIDTH 21.9 % (11.5-14.5)
[2017-09-25 08:07] LABS: ALB/GLOB RATIO 0.9 (1.1-1.8); ALBUMIN 3.4 g/dL (3.0-4.8); CALCIUM 8.7 mg/dL (8.4-10.5)
[2017-09-25] MEDS: Pantoprazole 40 mg EC Tab PO SCH ×2 (10:02→17:47)
[2017-09-25] MEDS: diltiaZEM 180 mg/24 Hours CD Cap PO SCH (10:02)
[2017-09-25] MEDS: Milrinone 20mg/100ml D5W 100 ML IV PRN (13:39)
[2017-09-26 06:58] LABS: BASO # 0.02 K/mm3 (0.0-2.0); BASO % 0.4 % (0.0-3.0); EOS # 0.2 (0.0-0.7); EOS % 3.7 % (1.5-5.0); GRAN # 3.24 (1.4-6.5); GRAN % 66.5 % (50.0-68.0); HEMOGLOBIN 7.9 g/dL (12.0-16.0); LYMPH # 1.1 (1.2-3.4); LYMPH % 21.6 % (22.0-35.0); MEAN CELL VOLUME 70.4 fl (80.0-105.0); MEAN CORPUSCULAR HEMOGLOBIN 20.5 pg (25.0-35.0); MEAN CORPUSCULAR HGB CONC 29.2 g/dl (31.0-37.0); MEAN PLATELET VOLUME 9.6 fl (7.0-11.0); MONO # 0.4 (0.1-0.6); MONO % 7.8 % (1.0-6.0); RBC 3.85 10^6/uL (3.5-6.1); RED CELL DISTRIBUTION WIDTH 21.5 % (11.5-14.5); WHITE BLOOD COUNT 4.9 10^3/ul (4.5-11.0)
[2017-09-26 07:32] LABS: ALB/GLOB RATIO 0.9 (1.1-1.8); ALBUMIN 3.6 g/dL (3.0-4.8); CALCIUM 8.9 mg/dL (8.4-10.5)
[2017-09-26] MEDS: Pantoprazole 40 mg EC Tab PO SCH ×2 (09:56→17:46)
[2017-09-26] MEDS: diltiaZEM 180 mg/24 Hours CD Cap PO SCH (10:17)
--- NOTE | 2017-09-26 12:14 | US ---
PROCEDURE: Lower extremity VICTOR HUGO exam HISTORY: Peripheral vascular disease with pain and claudication. Previous smoker PHYSICIAN(S): Oswald Lee MD. FINDINGS: The right resting VICTOR HUGO is normal, 1.07. The left resting VICTOR HUGO is mildly abnormal, 0.85 The brachial systolic pressures are symmetric. The high thigh pressures and waveforms are relatively normal. The calf PVR waveforms augment normally. No significant gradients are noted across the thighs. The right ankle and metatarsal PVR waveforms are relatively normal. No pressure gradients are demonstrated. The left ankle and metatarsal waveforms are mildly blunted. This is consistent with left tibial occlusive disease IMPRESSION: 1. Mildly abnormal left VICTOR HUGO at rest. 2. Left tibial occlusive disease.
--- NOTE | 2017-09-26 12:32 | PN ---
DATE: 09/26/2017 REASON FOR THE CONSULTATION AND FOLLOWUP: Acute decompensated congestive heart failure, pulmonary hypertension, seen for Dr. Fonseca. Dictating for Dr. Fonseca, covering Dr. Fonseca. SUBJECTIVE: The patient denies any chest pain, shortness of breath or any palpitation. OBJECTIVE: GENERAL: Not in any apparent distress. VITAL SIGNS: Temperature is afebrile, heart rate 65, and blood pressure 110/70. HEENT: PERRLA, intact. NECK: Supple. No carotid bruits or thyromegaly. CHEST: Clear to auscultation. HEART: S1 and S2 regular. ABDOMEN: Soft. EXTREMITIES: Clubbing and cyanosis negative. LABORATORY DATA: Blood workup as follows: WBC of 4.9, hemoglobin , hematocrit 27.1 and platelet count 219. Chemistry shows sodium of 130, potassium 4.7, chloride of 102, carbon dioxide 25, anion gap of 16, BUN of 47, and creatinine of 2.3. IMPRESSION: Acute kidney injury on chronic renal insufficiency, pulmonary hypertension, decompensated congestive heart failure, right heart failure. RECOMMENDATIONS: Continue Primacor. Cut down the Lasix to p.o. Continue Eliquis for paroxysmal atrial fibrillation. Continue Cardizem. We will hold Lasix. Repeat the blood workup in the morning. We will follow with you. My yesterday's H and H is not transcribed as of yet. Repeat the labs in the morning. I will transfer care tomorrow to Dr. Oswald Fonseca. Thank you Dr. Farris for providing the opportunity in taking care of the patient, Sarah Baker. Sulema Don MD
[2017-09-26] MEDS: Milrinone 20mg/100ml D5W 100 ML IV PRN (14:53)
[2017-09-27 06:43] LABS: MEAN CELL VOLUME 74.1 fl (80.0-105.0); MEAN CORPUSCULAR HEMOGLOBIN 23.5 pg (25.0-35.0); MEAN CORPUSCULAR HGB CONC 31.7 g/dl (31.0-37.0); PLATELET COUNT 206 10^3/uL (120.0-450.0); RBC 5.06 10^6/uL (3.5-6.1); RED CELL DISTRIBUTION WIDTH 22.5 % (11.5-14.5)
[2017-09-27 07:10] LABS: ALB/GLOB RATIO 0.9 (1.1-1.8); ALBUMIN 4.1 g/dL (3.0-4.8); CALCIUM 9.3 mg/dL (8.4-10.5)
[2017-09-27 07:28] LABS: HEMOGLOBIN 11.9 g/dL (12.0-16.0)
[2017-09-27] MEDS: Sodium Chloride 0.45% 1,000 ML IV SCH (08:32)
--- NOTE | 2017-09-27 08:43 | PN ---
DATE: 09/26/2017 SUBJECTIVE: I saw her resting comfortably in bed. She slept well. She is feeling well. She is eating well. She is walking around the room. PHYSICAL EXAMINATION: VITAL SIGNS: Temperature 98.5, pulse 65, 110/70 blood pressure, 18 respiratory rate, 97% O2 sat on nasal cannula. HEAD: Atraumatic, normocephalic. GENERAL: She is alert and confused. HEART: Regular rate. LUNGS: Decreased breath sounds, but clear. ABDOMEN: Soft. EXTREMITIES: No edema. MEDICATIONS: She is currently on Aricept, aspirin, Cardizem, Eliquis, Lasix IV, Lipitor, Lopressor, Norvasc, milrinone IV drip, Protonix, Tylenol and Ultram. LABORATORY DATA: Her blood test, she has a 4.9 white count, 7.9 hemoglobin. She will be transfused 2 units of packed red blood cells, 27.1 hematocrit with 219 platelets. She has been transfused in the past. INR is 1.15. Sodium 139, potassium 4.7, BUN 47, creatinine 2.3, went up a little bit. I will call on Renal. Calcium is 8.9, phosphorous is 4, magnesium 2, total bili is 0.6, AST is 38, ALT is 37, alk phos 96. BNP dropped to 1710, total protein 7.5. TSH 1.09. ASSESSMENT AND PLAN: She is being seen by Cardiology. I spoke to them today. I will keep the milrinone drip for 24 more hours. I will consult Renal for her renal insufficiency on top of the congestive heart failure, her atrial fibrillation, her dementia, anemia, now, she is going to get 2 units of packed red blood cells, on milrinone drip. Marco Farris DO
--- NOTE | 2017-09-27 08:55 | CON ---
DATE: 09/25/2017 REASON FOR CONSULTATION: Congestive heart failure, CMP, pulmonary hypertension. REASON FOR DICTATION: Covering Dr. Oswald Fonseca. BRIEF CLINICAL HISTORY: This is an 81-year-old -[place] female with the past medical history significant for COPD, anemia, GI bleed, lung CA, history of chronic atrial fibrillation, status post permanent pacemaker, history of renal insufficiency, history of hypertension, pulmonary hypertension, hyperlipidemia, came in with complaint of lower extremity swelling and shortness of breath. Denies any chest pain. PAST MEDICAL HISTORY: Significant for renal insufficiency; atrial fibrillation, on anticoagulation; history of pacemaker, history of pulmonary hypertension, history of systemic hypertension. SOCIAL HISTORY: Denies smoking. Denies any history of alcohol abuse. CURRENT MEDICATIONS: Patient is taking at home, Cardizem 180 mg daily, amlodipine 5 mg daily, metoprolol, aspirin, . ALLERGIES: NO KNOWN DRUG ALLERGY. RECENT CARDIAC WORKUP: As follows, patient had echocardiography done on 03/20/2017 that showed ejection fraction of 56% calculated, normal LV function, no segmental wall motion, [id number] mitral regurgitation, severe tricuspid regurgitation, severe pulmonary hypertension, PA pressure of calculated 105. EKG shows V paced rhythm. REVIEW OF SYSTEMS: As per HPI. PHYSICAL EXAMINATION: VITAL SIGNS: As follows, height of the patient 5 feet 5 inch, weight of the patient 128 pounds, body mass index 21.3 kg/m2. Rest of the vitals, temperature afebrile, heart rate 61, blood pressure . HEENT: PERRLA. Extraocular muscles Intact. NECK: Supple. No carotid bruit or thyromegaly. CHEST: Clear to auscultation. HEART: S1 and S2 regular. ABDOMEN: Soft. EXTREMITIES: Clubbing and cyanosis negative. LABORATORY DATA: WBC 4, hemoglobin 8.3, hematocrit 27.9, platelet count 185. Chemistry showed sodium 140, potassium chloride bicarbonate 16, BUN 40, creatinine 1.8. BNP 3160. Chest x-ray done yesterday on admission, shows mild cardiomegaly and vascular congestion consistent with CHF. IMPRESSION: An 81-year-old female with past medical history significant for severe pulmonary hypertension, systemic hypertension, atrial fibrillation, history of gastrointestinal bleed, was on anticoagulation, off anticoagulation because of gastrointestinal bleed, history of renal insufficiency, renal mass, status post nephrectomy, chronic renal insufficiency history of gastrointestinal bleed, anemia, lung cancer, status post lobectomy, hyperlipidemia, hypertension, was on Coumadin, held because of gastrointestinal bleed, admitted with decompensated congestive heart failure, leg swelling. RECOMMENDATION: We will start diuretics. Continue aspirin. We will start low dose of Primacor and give more diuretics because of the renal insufficiency and pulmonary hypertension. Patient will get the benefit from milrinone for 24 to 48 hours. We will follow with you. We will transfer her care Wednesday to Dr. Oswald Fonseca. Thank you, Dr. Farris, for providing us the opportunity in taking care of Sarah Baker. Sulema Don MD
--- NOTE | 2017-09-27 09:01 | PN ---
DATE: 09/25/2017 SUBJECTIVE: I saw Sarah in her room. She is walking better. Her legs are less swollen. She is breathing better. She is on Aricept, aspirin, Cardizem, Eliquis, she had Lasix 40 IV daily, also Lipitor, Lopressor, Norvasc. She is also on Primacor drip, Protonix, Tylenol, tramadol. She is having less leg pain. I will order venous and arterial Dopplers and increase the tramadol to 50. LABORATORY DATA: She has a 143 sodium, potassium 4.9, BUN 40, creatinine 1.8, GFR is 27, sugar is 96, calcium is 8.7. Total bilirubin is 0.6, AST is 28, ALT is 33, alkaline phosphatase 93. Troponin I was 0.02. BNP was 3160 and now is down to 1710 with diuresis. Total protein 7.2. She has 4 white count, 8.3 hemoglobin, 27.9 hematocrit with 185 platelets. ASSESSMENT AND PLAN: There are some orders from Cardiology, but not known yet. We will check her labs tomorrow. She is eating okay. She does well, possibly discharge her tomorrow afternoon after she is off the Primacor drip, otherwise she will be here. She will be on Lasix 40 IV daily, also milrinone drip. Marco Farris DO
[2017-09-27] MEDS: diltiaZEM 180 mg/24 Hours CD Cap PO SCH (09:57)
[2017-09-27] MEDS: Pantoprazole 40 mg EC Tab PO SCH ×2 (09:58→18:06)
[2017-09-27] MEDS ORDERED: Darbepoetin Alfa 60 mcg/ml Inj SC ONE (10:16)
--- NOTE | 2017-09-27 12:07 | PN ---
DATE: 09/27/2017 SUBJECTIVE: She is status post 2 units of packed red blood cells. She is resting comfortably in bed. She is on IV fluids now, Aricept, chewable aspirin, Cardizem, Eliquis, Lasix, Lipitor, Lopressor, Norvasc, Protonix, Tylenol, Ultram for pain. She is having left leg issues. PHYSICAL EXAMINATION: VITAL SIGNS: Temperature 97.5, pulse 71, 105/54 blood pressure, 18 respiratory rate, 96% O2 sat on nasal cannula. GENERAL: Alert and confused,but pleasant. HEENT: Head is atraumatic, normocephalic. HEART: Regular rate. LUNGS: Decreased breath sounds, but clear. ABDOMEN: Soft. EXTREMITIES: No edema, but left leg pain. LABORATORY DATA: She has a sodium 142, potassium 4.6, BUN 63, and creatinine 2.6, it went up. I added a renal evaluation. They have not seen her yet. I also added IV fluids. Sugar is 113, calcium is 9.3, phosphorous is 4, magnesium 2. Total bilirubin is 1.8, AST is 29, ALT is 33, alkaline phosphatase 104, total protein is 8.5. TSH is 1.09. White count 6, hemoglobin 11.9 after 2 units of packed red blood cells which is great, hematocrit 37.5 with 206 platelets. ASSESSMENT AND PLAN: I am going to see what Vascular, Dr. Oswald Lee, has to say about the left tibial disease and Dr. Lemon about her renal disease and I will put the tramadol on hold as that could be bothering the kidney function, the problem is the pain medication for her or fix the left leg circulation, which is probably the cause of her pain. I will see which way we want to go with her leg and her kidney function. Hope the IV fluids will help. She has got numerous issues. She is with congestive heart failure, anemia, atrial fibrillation. She was on milrinone drip, which was stopped; dementia; anemia, she was transfused; left leg pain; renal insufficiency, she has got IV fluids; and peripheral artery disease on the left side. Marco Farris DO [facility] # [id number]
--- NOTE | 2017-09-27 12:11 | CP.PCM.CON ---
History of Present Illness - History of Present Illness History of Present Illness: Nephrology Consultation Note: Assessment: stable CHF exacerbation, PVD non-oliguric PATRICIA likely hemodynamic due to BP fluctuations Baseline CKD 3 (N18.3) with 322 mg proteinuria possibly due to HTN, age related decline, and s/p Rt nephrectomy due to hx of RCC Hypertension tightly controlled (I12.9) Hx of Vit D insufficiency with secondary hyperparathyroidism, anemia hx of severe pulmonary HTN (RVSP 81 mm Hg) and moderate to severe LVH hx of dementia bradycardia s/p PPM, A fib Plan no acute need of renal replacement therapy at this time no ACEI or ARB due to recurrent AKIs and hyperkalemic tendency. maintain hemodynamic stable. stop norvasc as BP on low side pt on meds to control A fib rate anemia management: PRBC as needed, continue with iron 324 mg TID and MVI. dose aransep 60 mcg 09/27/17. check iron indices check vit D, iPTH in AM agree with gentle IVF for 1-2 days. hold lasix in meantime continue with statins cardiology following monitor I/O, daily weights and renal function will check UA, urine sodium/cr, spot protein/cr Dose meds/antibiotics for reduced GFR. Avoid fleets enema/magnesium based laxatives. Avoid nephrotoxins/NSAIDs/IV iodinated contrast (unless emergently) Further work up as per primary team Thanks for allowing me to participate in care of your patient. will follow with you. Please call if any Qs. had d/w team Dr Jt Lemon Office: [phone] CC: SOB Reason for consult: CKD and PATRICIA HPI: Pt is a 81 y/o F with hx of hypertension (20 years) , renal cell cancer s/ p unilateral total nephrectomy, CKD stage 3 with baseline cr 1.4-1.7 since 2017 but intermittent and frequent episodes of PATRICIA, chronic anemia, A fib, bradycardia s/p PPM presented with c/o SOB, leg pains and was managed for PVD, CHF exacerbation. renal consult for further management of PATRICIA/CKD. pt feels better. improved SOB and leg pain now. she feels in usual health now. ROS: denies CP/SOB. denies nausea/vomiting/pain abdomen denies urine complaints. all other negative except as in HPI. feels better Physical Examination: General Appearance: Comfortable, in no acute respiratory distress, co-operative Vitals reviewed and noted as below Head; Atraumatic, normocephalic ENT: no ulcers no thrush. Tongue is midline. Oropharynx: no rash or ulcers. EYES: Pupils are equal, round and reactive to light accommodation. Eye muscles and extraocular movement intact. Sclera is anicteric. Neck; supple no lymphadenopathy, no thyromegaly or bruit Lungs: Normal respiratory rate/effort. Breath sounds bilateral equal and clear Heart: normal rate. s1s2 normal. No rub or gallop. has PPM Extremities: no edema. No varicose veins Neurological: Patient is alert, awake and has dementia No other focal deficit. Strength bilateral appropriate and equal Skin: Warm and dry. Normal turgor. No rash. Palpitation: Normal elasticity for age Abdomen: Abdomen is soft. Bowel sounds +. There is no abdominal tenderness, no guarding/rigidity or organomegaly Psych: limited insight and has normal affect/mood MSK: no joint tenderness or swelling. Digits and nails normal, no deformity : kidney or bladder not palpable Labs/imaging/EKG reviewed. Past medical history, past surgical history,social history, allergy reviewed and noted as below FAMILy HX; no hx of CKD. non contributory work up: CT 2018: s/p Rt nephrectomy, left kidney unremarkable Vit D 35 PTH 70 TSAT 10% Ferritin 30 Past Patient History - Infectious Disease Hx of Infectious Diseases: None - Tetanus Immunizations Tetanus Immunization: >10 years Ago - Past Medical History & Family History Past Medical History?: Yes - Past Social History Smoking Status: Former Smoker - CARDIAC Hx Hypertension: Yes - PULMONARY Hx Chronic Obstructive Pulmonary Disease (COPD): Yes - NEUROLOGICAL Hx Neurological Disorder: Yes Hx Dementia: Yes Hx Dizziness: Yes (SYNCOPE) Other/Comment: pt denies cva - HEENT Hx HEENT Problems: Yes (glasses) - RENAL Hx Chronic Kidney Disease: Yes Hx Renal (Kidney) Cancer: (pt denies) Other/Comment: r nephrectomy - ENDOCRINE/METABOLIC Hx Endocrine Disorders: No - HEMATOLOGICAL/ONCOLOGICAL Hx Blood Disorders: Yes Hx Anemia: Yes (blood transfusions) Hx Cancer: No - INTEGUMENTARY Hx Dermatological Problems: Yes Other/Comment: dry flakey red ad brown skin to circumference of right forearm, pt thinks her bracelets may have irritated her skin , c/o of stinging pain has had this "couple weeks", multiple small round light skin discolorations ble - MUSCULOSKELETAL/RHEUMATOLOGICAL Hx Musculoskeletal Disorders: Yes (sciatica) Hx Arthritis: Yes Hx Back Pain: Yes Hx Falls: Yes (past) Hx Unsteady Gait: Yes (cane) - GASTROINTESTINAL Hx Gastrointestinal Disorders: Yes (rectal bleeding) Hx Gastroesophageal Reflux: Yes Hx Pancreatitis: Yes Other/Comment: pt's appetite "improving" stated pt 'I starting to gain weight back." - GENITOURINARY/GYNECOLOGICAL Hx Genitourinary Disorders: No - PSYCHIATRIC Hx Psychophysiologic Disorder: Yes Hx Anxiety: Yes Hx Substance Use: No - SURGICAL HISTORY Hx Mastectomy: No Other/Comment: r nephrectomy - ANESTHESIA Hx Anesthesia: Yes Hx Anesthesia Reactions: No Hx Malignant Hyperthermia: No Meds Allergies/Adverse Reactions: Allergies Allergy/AdvReac Type Severity Reaction Status Date / Time No Known Allergies Allergy Verified 09/24/17 12:30 - Medications Medications: Current Medications Acetaminophen (Tylenol 325mg Tab) 650 mg PO Q6H PRN PRN Reason: Pain, moderate (4-7) Last Admin: 09/24/17 11:12 Dose: 650 mg Apixaban (Eliquis) 2.5 mg PO BID [facility] PRN Reason: Protocol Last Admin: 09/27/17 09:58 Dose: 2.5 mg Aspirin (Aspirin Chewable) 81 mg PO DAILY [facility] Last Admin: 09/27/17 09:58 Dose: 81 mg Atorvastatin Calcium (Lipitor) 20 mg PO DAILY [facility] Last Admin: 09/27/17 09:58 Dose: 20 mg Diltiazem HCl (Cardizem Cd) 180 mg PO DAILY [facility] Last Admin: 09/27/17 09:57 Dose: 180 mg Donepezil HCl (Aricept) 10 mg PO HS [facility] Last Admin: 09/26/17 21:08 Dose: 10 mg Ferrous Gluconate (Fergon) 324 mg PO TID [facility] Sodium Chloride (Sodium Chloride 0.45%) 1,000 mls @ 40 mls/hr IV .Q24H [facility] Last Admin: 09/27/17 08:32 Dose: 40 mls/hr Metoprolol Tartrate (Lopressor) 25 mg PO BID [facility] Last Admin: 09/27/17 09:57 Dose: 25 mg Pantoprazole Sodium (Protonix Ec Tab) 40 mg PO BID [facility] Last Admin: 09/27/17 09:58 Dose: 40 mg Vitamin B Complex/Vit C/Folic Acid (Nephro-Haider) 1 tab PO 0800 [facility] Results - Vital Signs Recent Vital Signs: Last Vital Signs Temp 98.8 F 09/27/17 11:57 Pulse 80 09/27/17 11:57 Resp 18 09/27/17 11:57 BP 116/69 09/27/17 11:57 Pulse Ox 96 09/27/17 05:50 - Labs Result Diagrams: 09/27/17 06:00 09/27/17 06:00 Labs: Laboratory Results - last 24 hr 09/26/17 09/26/17 09/27/17 06:00 12:50 06:00 WBC 6.0 D RBC 5.06 Hgb 11.9 L D Hct 37.5 MCV 74.1 L D MCH 23.5 L MCHC 31.7 RDW 22.5 H Plt Count 206 Sodium Potassium Chloride Carbon Dioxide Anion Gap BUN Creatinine Est GFR ( Amer) Est GFR (Non-Af Amer) Random Glucose Hemoglobin A1c 5.6 Calcium Phosphorus Magnesium Total Bilirubin AST ALT Alkaline Phosphatase Total Protein Albumin Globulin Albumin/Globulin Ratio Blood Type AB POSITIVE Antibody Screen Negative Crossmatch See Detail BBK History Checked Patient has bt 09/27/17 06:00 WBC RBC Hgb Hct MCV MCH MCHC RDW Plt Count Sodium 142 Potassium 4.6 Chloride 102 Carbon Dioxide 26 Anion Gap 18 BUN 53 H Creatinine 2.6 H Est GFR ( Amer) 21 Est GFR (Non-Af Amer) 18 Random Glucose 113 H Hemoglobin A1c Calcium 9.3 Phosphorus 4.0 Magnesium 2.0 Total Bilirubin 1.8 H AST 29 ALT 33 Alkaline Phosphatase 104 Total Protein 8.5 H Albumin 4.1 Globulin 4.4 Albumin/Globulin Ratio 0.9 L Blood Type Antibody Screen Crossmatch BBK History Checked
--- NOTE | 2017-09-27 13:32 | PN ---
DATE: 09/27/2017 CARDIOLOGY FOLLOWUP SUBJECTIVE: The patient's dyspnea is improved. PHYSICAL EXAMINATION: VITAL SIGNS: Blood pressure is 116/69, heart rate is in the 80s. NECK: Negative JVD. LUNGS: Decreased breath sounds. HEART: S1, S2. EXTREMITIES: Decreasing edema. LABORATORY DATA: Hemoglobin is 11.9. Chemistries: BUN and creatinine are 53 and 2.6. IMPRESSION: 1. Prerenal azotemia secondary to Lasix administration. 2. Mild diastolic congestive heart failure which is better. 3. The patient has predominantly pulmonary hypertension and chronic obstructive pulmonary disease, which can explain her pedal edema and recurrent dyspnea. 4. Baseline renal insufficiency. Given these findings, I do not feel the ionotropic therapy would be of any benefit given her normal LV function. Her severe pulmonary hypertension is the main issue. We will discontinue Primacor. We will hold off on the Lasix. Oswald Fonseca MD
[2017-09-28 06:29] VITALS: O2SAT 95
[2017-09-28 06:53] LABS: HEMOGLOBIN 11.7 g/dL (12.0-16.0); MEAN CELL VOLUME 73.7 fl (80.0-105.0); MEAN CORPUSCULAR HEMOGLOBIN 23.4 pg (25.0-35.0); MEAN CORPUSCULAR HGB CONC 31.7 g/dl (31.0-37.0); RBC 5.01 10^6/uL (3.5-6.1); RED CELL DISTRIBUTION WIDTH 22.7 % (11.5-14.5); WHITE BLOOD COUNT 6.6 10^3/ul (4.5-11.0)
[2017-09-28 07:06] LABS: ALB/GLOB RATIO 0.9 (1.1-1.8); ALBUMIN 3.9 g/dL (3.0-4.8); CALCIUM 9.2 mg/dL (8.4-10.5)
[2017-09-28] MEDS ORDERED: Multivitamin Vitamin B Complex (Nephro-Vite) Tab PO SCH (08:00)
[2017-09-28 08:30] LABS: URINE BILIRUBIN NEGATIVE (NEGATIVE); URINE BLOOD NEGATIVE (NEGATIVE); URINE GLUCOSE (UA) NEGATIVE (NEGATIVE); URINE LEUKOCYTE ESTERASE SMALL Leu/uL (NEGATIVE); URINE PROTEIN 30 mg/dL (<30 mg/dL); URINE UROBILINOGEN 0.2 E.U./dL (<1 E.U./dL)
[2017-09-28 08:36] LABS: URINE APPEARANCE CLEAR (CLEAR); URINE COLOR YELLOW (YELLOW)
[2017-09-28 09:00] LABS: URINE RBC 0 - 2 /hpf (0-2)
[2017-09-28 09:01] LABS: URINE AMORPHOUS SEDIMENT FEW; URINE BACTERIA MANY (NEG)
[2017-09-28] MEDS: diltiaZEM 180 mg/24 Hours CD Cap PO SCH (09:02)
[2017-09-28] MEDS: Pantoprazole 40 mg EC Tab PO SCH (09:02)
[2017-09-28] MEDS: Sodium Chloride 0.45% 1,000 ML IV SCH (09:06)
[2017-09-28 09:12] LABS: PLATELET COUNT 231 10^3/uL (120.0-450.0)
--- NOTE | 2017-09-28 09:25 | PQF ---
PROVIDER RESPONSE TEXT: Chronic blood loss anemia REVIEWER QUERY TEXT: Anemia Type Anemia is documented in the Medical Record. Please specify the cause (includes suspected or probable cause) Such as: -- Due to acute blood loss -- Due to chronic blood loss -- Due to iron deficiency -- Due to postoperative blood loss -- Due to chronic disease -- Other, please specify The patient's Clinical Indicators include: Admitted with anemia (8.0/26.8) dropping to 7.9/27.1. Transfused with 2 UPRBC. Hx GI bleeding and hx CKD Please provide more specificity about type and etiology of anemia. Query created by: Madalyn Hassan on 09/27/2017 2:18 PM Electronically signed by: Marco Farris DO 09/28/2017 9:22 AM
--- NOTE | 2017-09-28 09:46 | PN ---
DATE: 09/28/2017 CARDIOLOGY FOLLOWUP SUBJECTIVE: The patient's dyspnea is better. PHYSICAL EXAMINATION: VITAL SIGNS: Blood pressure is 144/87, the heart rate is in the 80s. NECK: Negative JVD. LUNGS: Without rales. HEART: Reveals S1, S2. EXTREMITIES: Without edema. LABORATORY DATA: Creatinine is down to 2.1, hemoglobin is 11.7. IMPRESSION: 1. Prerenal azotemia secondary to diuretics. 2. Severe pulmonary hypertension. 3. Normal left ventricular function. 4. Mild congestive heart failure, which is now resolved. 5. Pedal edema. 6. Chronic dyspnea. PLAN: Given these findings, the patient's dyspnea is predominantly from her COPD and her severe pulmonary hypertension. Lasix should be given only to help her pedal edema. Upon discharge, the patient should go home on Lasix 20 mg daily. Oswald Fonseca MD
--- NOTE | 2017-09-28 10:10 | DS ---
HISTORY OF PRESENT ILLNESS: I am hoping and waiting for Dr. Oswald Lee to see her for her left leg issue. She is on Aricept, aspirin, Cardizem, Eliquis, Fergon, Lipitor, Lopressor, Nephro-Haider, Protonix, IV fluids and Tylenol. She will also be on Lasix 20 mg a day as needed as per Cardiology. She is feeling well now, she is eating well, in good spirits. PHYSICAL EXAMINATION: VITAL SIGNS: 97.8 temp, 88 pulse, 144/87 blood pressure, 20 respiratory rate, 95% O2 sat on room air. HEENT: Head is atraumatic, normocephalic. HEART: Regular rate. LUNGS: Clear to auscultation. ABDOMEN: Soft. EXTREMITIES: No edema. No pain at this time. LABORATORY DATA: She has a 6.6 white count, 11.7 hemoglobin, 36.9 hematocrit with 231 platelets. She has a 139 sodium, potassium 4.7, BUN 51, creatinine 2.1, GFR is 27, sugar is 101, calcium is 9.2, iron is 51, total iron binding capacity is 417, saturations 12. ASSESSMENT AND PLAN: She should be on some iron. She is on iron, which is very good. My plan is to discharge her home today. She was transfused. She is doing much better. She was in the hospital for congestive heart failure, renal insufficiency, anemia, atrial fibrillation. She has a history of dementia. She was transfused. She is having left leg pain. Waiting for Dr. Oswald Lee to give us his opinion and then hopefully discharge later today. We will see her when the house call on the outpatient. Marco Farris DO
--- NOTE | 2017-09-28 12:14 | CP.PCM.PN ---
Subjective - Date & Time of Evaluation Date of Evaluation: 09/28/17 Time of Evaluation: 12:13 - Subjective Subjective: Nephrology Consultation Note: Assessment: stable CHF exacerbation, PVD non-oliguric PATRICIA likely hemodynamic due to BP fluctuations Baseline CKD 3 (N18.3) with 322 mg proteinuria possibly due to HTN, age related decline, and s/p Rt nephrectomy due to hx of RCC Hypertension tightly controlled (I12.9) Hx of Vit D insufficiency with secondary hyperparathyroidism, anemia hx of severe pulmonary HTN (RVSP 81 mm Hg) and moderate to severe LVH hx of dementia bradycardia s/p PPM, A fib Plan no acute need of renal replacement therapy at this time no ACEI or ARB due to recurrent AKIs and hyperkalemic tendency. maintain hemodynamic stable. stop norvasc as BP on low side pt on meds to control A fib rate anemia management: PRBC as needed, continue with iron 324 mg TID and MVI. dose aransep 60 mcg 09/27/17. check iron indices check vit D, iPTH in AM agree with gentle IVF for 1-2 days. can lasix at d/c continue with statins cardiology following monitor I/O, daily weights and renal function while in hospial will check UA, urine sodium/cr, spot protein/cr Dose meds/antibiotics for reduced GFR. Avoid fleets enema/magnesium based laxatives. Avoid nephrotoxins/NSAIDs/IV iodinated contrast (unless emergently) Further work up as per primary team pt stable for d/c from renal perspective when planned Thanks for allowing me to participate in care of your patient. will follow with you. Please call if any Qs. had d/w team Dr Jt Lemon Office: [phone] CC: SOB Reason for consult: CKD and PATRICIA HPI: Pt is a 81 y/o F with hx of hypertension (20 years) , renal cell cancer s/ p unilateral total nephrectomy, CKD stage 3 with baseline cr 1.4-1.7 since 2017 but intermittent and frequent episodes of PATRICIA, chronic anemia, A fib, bradycardia s/p PPM presented with c/o SOB, leg pains and was managed for PVD, CHF exacerbation. renal consult for further management of PATRICIA/CKD. pt feels better. improved SOB and leg pain now. she feels in usual health now. ROS: denies CP/SOB. denies nausea/vomiting/pain abdomen denies urine complaints. all other negative except as in HPI. feels better Physical Examination: General Appearance: Comfortable, in no acute respiratory distress, co-operative Vitals reviewed and noted as below Head; Atraumatic, normocephalic ENT: no ulcers no thrush. Tongue is midline. Oropharynx: no rash or ulcers. EYES: Pupils are equal, round and reactive to light accommodation. Eye muscles and extraocular movement intact. Sclera is anicteric. Neck; supple no lymphadenopathy, no thyromegaly or bruit Lungs: Normal respiratory rate/effort. Breath sounds bilateral equal and clear Heart: normal rate. s1s2 normal. No rub or gallop. has PPM Extremities: no edema. No varicose veins Neurological: Patient is alert, awake and has dementia No other focal deficit. Strength bilateral appropriate and equal Skin: Warm and dry. Normal turgor. No rash. Palpitation: Normal elasticity for age Abdomen: Abdomen is soft. Bowel sounds +. There is no abdominal tenderness, no guarding/rigidity or organomegaly Psych: limited insight and has normal affect/mood MSK: no joint tenderness or swelling. Digits and nails normal, no deformity : kidney or bladder not palpable Labs/imaging/EKG reviewed. Past medical history, past surgical history,social history, allergy reviewed and noted as below FAMILy HX; no hx of CKD. non contributory work up: CT 2018: s/p Rt nephrectomy, left kidney unremarkable Vit D 35 PTH 70 TSAT 10% Ferritin 30 Objective - Vital Signs/Intake and Output Vital Signs (last 24 hours): Temp Pulse Resp BP Pulse Ox 97.8 F 88 20 144/87 95 09/28/17 06:00 09/28/17 10:00 09/28/17 06:00 09/28/17 09:01 09/28/17 06:00 Intake and Output: 09/28/17 09/28/17 06:59 18:59 Intake Total 720 Output Total 300 Balance 420 - Medications Medications: Current Medications Acetaminophen (Tylenol 325mg Tab) 650 mg PO Q6H PRN PRN Reason: Pain, moderate (4-7) Last Admin: 09/28/17 10:48 Dose: 650 mg Apixaban (Eliquis) 2.5 mg PO BID ISAI PRN Reason: Protocol Last Admin: 09/28/17 09:02 Dose: 2.5 mg Aspirin (Aspirin Chewable) 81 mg PO DAILY [facility] Last Admin: 09/28/17 09:02 Dose: 81 mg Atorvastatin Calcium (Lipitor) 20 mg PO DAILY [facility] Last Admin: 09/28/17 09:02 Dose: 20 mg Diltiazem HCl (Cardizem Cd) 180 mg PO DAILY [facility] Last Admin: 09/28/17 09:02 Dose: 180 mg Donepezil HCl (Aricept) 10 mg PO HS [facility] Last Admin: 09/27/17 21:48 Dose: 10 mg Ferrous Gluconate (Fergon) 324 mg PO TID [facility] Last Admin: 09/28/17 09:02 Dose: 324 mg Sodium Chloride (Sodium Chloride 0.45%) 1,000 mls @ 40 mls/hr IV .Q24H [facility] Last Admin: 09/28/17 09:06 Dose: 40 mls/hr Metoprolol Tartrate (Lopressor) 25 mg PO BID [facility] Last Admin: 09/28/17 09:01 Dose: 25 mg Pantoprazole Sodium (Protonix Ec Tab) 40 mg PO BID [facility] Last Admin: 09/28/17 09:02 Dose: 40 mg Vitamin B Complex/Vit C/Folic Acid (Nephro-Haider) 1 tab PO 0800 [facility] Last Admin: 09/28/17 09:01 Dose: 1 tab - Labs Labs: 09/28/17 06:00 09/28/17 06:00 PT 13.1 SECONDS (9.4-12.5) H 09/24/17 02:50 INR 1.15 (0.93-1.08) H 09/24/17 02:50 APTT 24.7 Seconds (25.1-36.5) L 09/24/17 02:50
[2017-09-28 12:17] VITALS: BP 115/71; PULSE 63; RESP 18; TEMP 98.1
[2017-09-28 12:21] LABS: FERRITIN 51.9 ng/mL
== END 2017-09-28 17:14 | disposition home health service (06) | DRG 292 ==
LOC: ED 02:26 → ERH 05:04 → 2RNO 08:24
PROVIDERS: ADMIT Family Medicine; ATTEND Family Medicine
DX: I13.0 Hypertensive heart and chronic kidney disease with heart failure and stage 1 through stage 4 chronic kidney disease, or unspecified chronic kidney disease (principal); I50.30 Unspecified diastolic (congestive) heart failure; K92.2 Gastrointestinal hemorrhage, unspecified; N17.9 Acute kidney failure, unspecified; N25.81 Secondary hyperparathyroidism of renal origin; E78.00 Pure hypercholesterolemia, unspecified; E78.5 Hyperlipidemia, unspecified; F03.90 Unspecified dementia, unspecified severity, without behavioral disturbance, psychotic disturbance, mood disturbance, and anxiety; F41.9 Anxiety disorder, unspecified; G89.29 Other chronic pain; I27.29 Other secondary pulmonary hypertension; I48.2 Chronic atrial fibrillation; I50.82 Biventricular heart failure; I73.9 Peripheral vascular disease, unspecified; J44.9 Chronic obstructive pulmonary disease, unspecified; K21.9 Gastro-esophageal reflux disease without esophagitis; N18.3 Chronic kidney disease, stage 3 (moderate); D50.0 Iron deficiency anemia secondary to blood loss (chronic); T50.1X5A Adverse effect of loop [high-ceiling] diuretics, initial encounter; Z79.01 Long term (current) use of anticoagulants; Z85.528 Personal history of other malignant neoplasm of kidney; Z85.118 Personal history of other malignant neoplasm of bronchus and lung; Z87.891 Personal history of nicotine dependence; Z90.2 Acquired absence of lung [part of]; Z90.5 Acquired absence of kidney; Z95.0 Presence of cardiac pacemaker; Z83.3 Family history of diabetes mellitus; Z82.49 Family history of ischemic heart disease and other diseases of the circulatory system

== ENCOUNTER 2018-01-01 07:38 | Emergency (ER) | payer MEDICARE ==
[2018-01-01 07:38] VITALS: PULSE 45; BMI 20.7
--- NOTE | 2018-01-01 08:10 | ED PDOC ---
Arrival/HPI - General Chief Complaint: Lower Extremity Problem/Injury Time Seen by Provider: 01/01/18 07:48 Historian: Patient - History of Present Illness Narrative History of Present Illness (Text): 01/01/18 08:04 A 82 year old female, whose past medical history includes chronic renal insufficiency, renal cancer/mass s/p R nephrectomy, anxiety, chronic bilateral lower extremity pain, COPD, anemia, GI bleed, lung cancer s/p lobectomy, hypercholesterolemia, hypertension, ckd, and Afib on eliquis, presents to the emergency department complaining of left foot pain pt reports her chronic sob. Patient denies any fall/trauma, or any other complaints at this time. PMB: Dr. Almonte 01/01/18 13:48 Past Medical History - Provider Review Nursing Documentation Reviewed: Yes - Infectious Disease Hx of Infectious Diseases: None - Tetanus Immunization Tetanus Immunization: >10 years Ago - Cardiac Hx Hypertension: Yes - Pulmonary Hx Chronic Obstructive Pulmonary Disease (COPD): Yes - Neurological Hx Neurological Disorder: Yes Hx Dementia: Yes Hx Dizziness: Yes (SYNCOPE) Other/Comment: pt denies cva - HEENT Hx HEENT Disorder: Yes (glasses) - Renal Hx Renal Disorder: Yes Hx Renal Cancer: (pt denies) Other/Comment: r nephrectomy - Endocrine/Metabolic Hx Endocrine Disorders: No - Hematological/Oncological Hx Blood Disorders: Yes Hx Anemia: Yes (blood transfusions) Hx Cancer: No - Integumentary Hx Dermatological Disorder: Yes Other/Comment: dry flakey red ad brown skin to circumference of right forearm, pt thinks her bracelets may have irritated her skin , c/o of stinging pain has had this "couple weeks", multiple small round light skin discolorations ble - Musculoskeletal/Rheumatological Hx Musculoskeletal Disorders: Yes (sciatica) Hx Arthritis: Yes Hx Back Pain: Yes Hx Falls: Yes (past) Hx Unsteady Gait: Yes (cane) - Gastrointestinal Hx Gastrointestinal Disorders: Yes (rectal bleeding) Hx Gastroesophageal Reflux: Yes Hx Pancreatitis: Yes Other/Comment: pt's appetite "improving" stated pt 'I starting to gain weight back." - Genitourinary/Gynecological Hx Genitourinary Disorders: No - Psychiatric Hx Psychophysiologic Disorder: Yes Hx Anxiety: Yes Hx Substance Use: No - Surgical History Hx Mastectomy: No Other/Comment: r nephrectomy - Anesthesia Hx Anesthesia: Yes Hx Anesthesia Reactions: No Hx Malignant Hyperthermia: No Family/Social History - Physician Review Nursing Documentation Reviewed: Yes Family/Social History: No Known Family HX Smoking Status: Former Smoker Hx Alcohol Use: No Hx Substance Use: No Allergies/Home Meds Allergies/Adverse Reactions: Allergies No Known Allergies Allergy (Verified 09/24/17 12:30) Home Medications: Home Meds Medication Instructions Recorded Confirmed Atorvastatin [Lipitor] 20 mg PO DAILY 08/12/17 09/28/17 amLODIPine [Norvasc] 5 mg PO DAILY 08/12/17 09/28/17 Review of Systems - Physician Review All systems were reviewed & negative as marked: Yes - Review of Systems Constitutional: absent: Fevers, Night Sweats, Other (denies of any fall/trauma) Respiratory: SOB. absent: Cough Cardiovascular: absent: Chest Pain Gastrointestinal: absent: Abdominal Pain, Diarrhea, Nausea, Vomiting Musculoskeletal: Other (left foot pain) Neurological: absent: Headache, Dizziness Physical Exam Vital Signs Reviewed: Yes Vital Signs Temp 01/01/18 07:41 98.1 F Temperature: Afebrile Appearance: Positive for: Well-Appearing, Non-Toxic, Comfortable Pain Distress: None Mental Status: Positive for: Alert and Oriented X 3 - Systems Exam Head: Present: Atraumatic, Normocephalic Pupils: Present: PERRL Extroacular Muscles: Present: EOMI Conjunctiva: Present: Normal Mouth: Present: Moist Mucous Membranes Neck: Present: Normal Range of Motion Respiratory/Chest: Present: Rales (rales at basis) Cardiovascular: Present: Regular Rate and Rhythm, Normal S1, S2. No: Murmurs Abdomen: No: Tenderness, Distention, Peritoneal Signs Back: Present: Normal Inspection Upper Extremity: Present: Normal Inspection. No: Cyanosis, Edema Lower Extremity: Present: Normal Inspection. No: Edema Neurological: Present: GCS=15, CN II-XII Intact, Speech Normal Skin: Present: Warm, Dry, Normal Color. No: Rashes Psychiatric: Present: Alert, Oriented x 3, Normal Insight, Normal Concentration Medical Decision Making ED Course and Treatment: 01/01/18 08:06 Impression: 82 year old female with shortness of breath and left foot pain. Plan: -- EKG -- Chest X-ray -- Left Foot X-Ray -- Labs -- Urinalysis -- Lower Extremity Ultrasound -- Reassess and disposition Prior Visits: Notes and results from previous visits were reviewed. Patient was last seen in the emergency department on 09/24/2017 for dyspnea on exertion. Patient was admitted. Progress Notes: EKG: Ordered, reviewed, and independently interpreted the EKG. Rate : 60 BPM Rhythm : Pacemaker Interpretation : No ST-segment elevations or depressions, no T-wave inversions, normal intervals. Comparison : No previous EKG for comparison. 01/01/2018 10:10 Chest X-ray IMPRESSION: No active disease. Dictator: Gaby Montanez MD 01/01/2018 10:16 Left Foot X-Ray IMPRESSION: No acute fracture or dislocation. Plantar calcaneal spur, plantar and dorsal calcaneal enthesophytes. 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 Dictator: Gaby Montanez MD 01/01/18 13:48 01/01/18 13:49 dimer neg. foot warm, noted mild decreased judd on previous us. (+)pulses. dvt study neg. bnp improved from baseline, cxr neg for vasc congestion satting 99%ra. dicussed with almonte agrees with outpt fu. 01/02/18 07:19 - RAD Interpretation Radiology Orders: 01/01/18 08:06 CHEST PORTABLE [RAD] Stat DUPLEX LOWER EXTRM VEIN LEFT [US] Stat - Scribe Statement The provider has reviewed the documentation as recorded by the Main [place] Provider Scribe Attestation: All medical record entries made by the Scribe were at my direction and personally dictated by me. I have reviewed the chart and agree that the record accurately reflects my personal performance of the history, physical exam, medical decision making, and the department course for this patient. I have also personally directed, reviewed, and agree with the discharge instructions and disposition. Disposition/Present on Arrival - Present on Arrival Any Indicators Present on Arrival: No History of DVT/PE: No History of Uncontrolled Diabetes: No Urinary Catheter: No History of Decub. Ulcer: No History Surgical Site Infection Following: None - Disposition Have Diagnosis and Disposition been Completed?: Yes Diagnosis: Foot pain, CHF (congestive heart failure), Chronic shortness of breath Disposition: HOME/ ROUTINE Disposition Time: 12:00 Condition: STABLE Discharge Instructions (ExitCare): Foot Sprain (DC), Heart Failure (ED) Additional Instructions: return to er with worsening symptoms or concerns. Forms: [email or web address] (Cam[place]onian)
[2018-01-01 09:46] LABS: BASO # 0.02 K/mm3 (0.0-2.0); BASO % 0.2 % (0.0-3.0); EOS # 0.2 (0.0-0.7); EOS % 2.2 % (1.5-5.0); GRAN # 6.07 (1.4-6.5); GRAN % 71.3 % (50.0-68.0); HEMOGLOBIN 9.7 g/dL (12.0-16.0); LYMPH # 1.3 (1.2-3.4); LYMPH % 15.2 % (22.0-35.0); MEAN CELL VOLUME 79.3 fl (80.0-105.0); MEAN CORPUSCULAR HEMOGLOBIN 25.1 pg (25.0-35.0); MEAN CORPUSCULAR HGB CONC 31.6 g/dl (31.0-37.0); MEAN PLATELET VOLUME 9.4 fl (7.0-11.0); MONO % 11.1 % (1.0-6.0); RBC 3.87 10^6/uL (3.5-6.1); RED CELL DISTRIBUTION WIDTH 25.2 % (11.5-14.5)
[2018-01-01 09:58] VITALS: PULSE 75; RESP 19; TEMP 98
--- NOTE | 2018-01-01 10:14 | RAD ---
Date of service: 01/01/2018 HISTORY: Shortness of breath COMPARISON: 09/24/2017. FINDINGS: LUNGS: The lungs are well inflated and clear. PLEURA: No pleural effusions or pneumothorax. CARDIOVASCULAR: The heart is normal in size. There is stable position of a right-sided unipolar permanent pacing device. No aortic atherosclerotic calcification present. OSSEOUS STRUCTURES: Within normal limits for the patient's age. VISUALIZED UPPER ABDOMEN: Normal. OTHER FINDINGS: None. IMPRESSION: No active pulmonary disease.
--- NOTE | 2018-01-01 10:20 | RAD ---
Date of service: 01/01/2018 PROCEDURE: Left Foot Radiographs. HISTORY: Pain COMPARISON: None. FINDINGS: BONES: There is diffuse bone demineralization. There is no acute displaced fracture or bone destruction. Bone alignment is normal. There is a large plantar calcaneal spur and prominent dorsal and plantar enthesophytes. JOINTS: Moderate degenerative osteoarthrosis in the 1st metatarsophalangeal joint with mild hallux. SOFT TISSUES: Mild periarticular soft tissue swelling at the 1st MTP joint. OTHER FINDINGS: None. IMPRESSION: No acute fracture or dislocation. Plantar calcaneal spur, plantar and dorsal calcaneal enthesophytes. Moderate degenerative osteoarthrosis in the 1st MTP joint with mild hallux.
[2018-01-01 10:39] LABS: PH,URINE 5.5 (4.7-8.0); URINE BILIRUBIN NEGATIVE (NEGATIVE); URINE BLOOD NEGATIVE (NEGATIVE); URINE GLUCOSE (UA) NEGATIVE (NEGATIVE); URINE LEUKOCYTE ESTERASE TRACE Leu/uL (NEGATIVE); URINE PROTEIN TRACE mg/dL (<30 mg/dL); URINE UROBILINOGEN 0.2 E.U./dL (<1 E.U./dL)
[2018-01-01 10:41] LABS: URINE APPEARANCE SLIGHT-CLOUDY (CLEAR); URINE COLOR YELLOW (YELLOW)
[2018-01-01 10:54] LABS: URINE RBC 0 - 2 /hpf (0-2)
[2018-01-01 11:42] LABS: BLOOD UREA NITROGEN 58 mg/dL (7-21); CALCIUM 9.2 mg/dL (8.4-10.5); GFR NON-AFRICAN AMERICAN 20
[2018-01-01 11:45] LABS: ALB/GLOB RATIO 0.8 (1.1-1.8); ALBUMIN 3.7 g/dL (3.0-4.8); ALT/SGPT < 6 U/L (7-56); AST/SGOT 56 U/L (14-36)
[2018-01-01 11:54] LABS: B-TYPE NATRIURETIC PEPTIDE 914 pg/mL (0-450)
[2018-01-01 11:57] LABS: TROPONIN I 0.03 ng/mL
[2018-01-01 12:34] VITALS: BP 121/72
[2018-01-01 12:37] VITALS: O2SAT 98
[2018-01-01 14:19] LABS: WHITE BLOOD COUNT 8.5 10^3/uL (4.5-11.0)
--- NOTE | 2018-01-02 09:31 | CARD ---
APPROVED REPORT Date of service: 01/01/2018 EKG Measurement Heart [id number] <Conclusion> 100 % V. Paced Atrial Flutter
--- NOTE | 2018-01-03 10:59 | US ---
PROCEDURE: Left lower extremity venous US HISTORY: Leg pain and swelling. Evaluate for DVT. PHYSICIAN(S): Oswald Lee MD. TECHNIQUE: Duplex sonography and color-flow Doppler with graded compression were used to evaluate the deep venous system of the left lower extremity. The exam is somewhat limited by edema FINDINGS: The visualized deep venous system of the left lower extremity is sonographically normal and compressible. Normal wave forms and augmentation are seen. There is no sonographic evidence for deep venous thrombosis in the visualized segments of the left lower extremity. IMPRESSION: 1. No sonographic evidence for deep venous thrombosis in the visualized segments of the left lower extremity.
== END 2018-01-01 12:36 | disposition home or self-care (01) ==
LOC: ED 07:38
DX: M79.672 Pain in left foot (principal); R06.02 Shortness of breath; I13.0 Hypertensive heart and chronic kidney disease with heart failure and stage 1 through stage 4 chronic kidney disease, or unspecified chronic kidney disease; I50.9 Heart failure, unspecified; N18.9 Chronic kidney disease, unspecified; I48.91 Unspecified atrial fibrillation; E78.00 Pure hypercholesterolemia, unspecified; Z85.528 Personal history of other malignant neoplasm of kidney; Z85.118 Personal history of other malignant neoplasm of bronchus and lung; Z90.2 Acquired absence of lung [part of]; Z90.5 Acquired absence of kidney; Z79.01 Long term (current) use of anticoagulants; Z87.891 Personal history of nicotine dependence

== ENCOUNTER 2018-01-28 11:03 | Inpatient (IN) | payer MEDICARE ==
[2018-01-28 11:03] VITALS: PULSE 45
[2018-01-28 11:14] VITALS: BMI 21.3
--- NOTE | 2018-01-28 11:53 | ED PDOC ---
Arrival/HPI - General Chief Complaint: Chest Pain Time Seen by Provider: 01/28/18 11:07 Historian: Patient - History of Present Illness Narrative History of Present Illness (Text): 01/28/18 11:14 82 y/o F, with past medical history of chronic renal insufficiency, renal cancer/mass s/p R nephrectomy, anxiety, chronic bilateral lower extremity pain, COPD, anemia, GI bleed, lung cancer s/p lobectomy, hypercholesterolemia, hyperte nsion, ckd, and Afib on OAC eliquis, presents to the ED via EMS complaining of chest pain and shortness of breath for past couple days. Patient informs chronic lower leg discomfort but denies any other associated somatic complaints. Patient denies any fever, chills, nausea, vomiting, diarrhea, abdominal pain, neck pain, back pain, headache, dizziness or any other complaints. Patient denies taking her medications this morning. PMD: Dr. Farris Time/Duration: < week Symptom Onset: Gradual Symptom Course: Unchanged Activities at Onset: Light Context: Home Past Medical History - Provider Review Nursing Documentation Reviewed: Yes - Infectious Disease Hx of Infectious Diseases: None - Tetanus Immunization Tetanus Immunization: >10 years Ago - Reproductive Menopause: Yes - Cardiac Hx Hypertension: Yes - Pulmonary Hx Chronic Obstructive Pulmonary Disease (COPD): Yes - Neurological Hx Neurological Disorder: Yes Hx Dementia: Yes Hx Dizziness: Yes (SYNCOPE) - HEENT Hx HEENT Disorder: Yes (glasses) - Renal Hx Renal Disorder: Yes Hx Renal Cancer: (pt denies) Other/Comment: r nephrectomy - Endocrine/Metabolic Hx Endocrine Disorders: No - Hematological/Oncological Hx Blood Disorders: Yes Hx Anemia: Yes (blood transfusions) Hx Cancer: No - Integumentary Hx Dermatological Disorder: Yes - Musculoskeletal/Rheumatological Hx Musculoskeletal Disorders: Yes (sciatica) Hx Arthritis: Yes Hx Back Pain: Yes Hx Falls: Yes (past) Hx Unsteady Gait: Yes (cane) - Gastrointestinal Hx Gastrointestinal Disorders: Yes (rectal bleeding) Hx Gastroesophageal Reflux: Yes Hx Pancreatitis: Yes - Genitourinary/Gynecological Hx Genitourinary Disorders: No - Psychiatric Hx Psychophysiologic Disorder: Yes Hx Anxiety: Yes Hx Substance Use: No - Surgical History Hx Mastectomy: No Other/Comment: r nephrectomy - Anesthesia Hx Anesthesia: Yes Hx Anesthesia Reactions: No Hx Malignant Hyperthermia: No Family/Social History - Physician Review Nursing Documentation Reviewed: Yes Family/Social History: Unknown Family HX Smoking Status: Former Smoker Hx Alcohol Use: No Hx Substance Use: No Allergies/Home Meds Allergies/Adverse Reactions: Allergies No Known Allergies Allergy (Verified 09/24/17 12:30) Home Medications: Home Meds Medication Instructions Recorded Confirmed Atorvastatin [Lipitor] 20 mg PO DAILY 08/12/17 09/28/17 amLODIPine [Norvasc] 5 mg PO DAILY 08/12/17 09/28/17 Alprazolam [Alprazolam Xr] 0.5 mg PO DAILY 01/28/18 01/28/18 Review of Systems - Physician Review All systems were reviewed & negative as marked: Yes - Review of Systems Constitutional: absent: Fevers Respiratory: SOB. absent: Cough Cardiovascular: Chest Pain. absent: Palpitations Gastrointestinal: absent: Abdominal Pain, Diarrhea, Nausea, Vomiting Genitourinary Female: absent: Dysuria Musculoskeletal: absent: Back Pain, Neck Pain Skin: absent: Rash Neurological: absent: Headache, Dizziness Psychiatric: absent: Anxiety Physical Exam Vital Signs Reviewed: Yes Vital Signs Temp Pulse Resp BP Pulse Ox 01/28/18 11:03 97.2 F L 78 18 108/48 L 91 L Temperature: Afebrile Blood Pressure: Hypotensive Pulse: Regular Respiratory Rate: Normal Appearance: Positive for: Well-Appearing, Non-Toxic, Comfortable Pain Distress: None Mental Status: Positive for: Alert and Oriented X 3 - Systems Exam Head: Present: Atraumatic, Normocephalic Pupils: Present: PERRL Extroacular Muscles: Present: EOMI Conjunctiva: Present: Normal Mouth: Present: Moist Mucous Membranes Neck: Present: Normal Range of Motion Respiratory/Chest: Present: Good Air Exchange, Decreased Breath Sounds (Dimished breath sounds bilaterally), Tachypneic. No: Respiratory Distress, Accessory Muscle Use, Wheezes, Rhonchi Cardiovascular: Present: Regular Rate and Rhythm, Normal S1, S2. No: Murmurs Abdomen: No: Tenderness, Distention, Peritoneal Signs Back: Present: Normal Inspection Upper Extremity: Present: Normal Inspection. No: Cyanosis, Edema Lower Extremity: Present: Normal Inspection. No: Edema Neurological: Present: GCS=15, CN II-XII Intact, Speech Normal Skin: Present: Warm, Dry, Normal Color. No: Rashes Psychiatric: Present: Alert, Oriented x 3, Normal Insight, Normal Concentration Medical Decision Making ED Course and Treatment: 01/28/18 11:15 Impression: 82 year old female presents to the Emergency department complaining of chest pain and shortness of breath. Plan: --Type and Screen -- EKG -- Labs -- Chest X-ray -- Urinalysis -- Reassess and disposition Prior Visits: Notes and results from previous visits were reviewed. Progress Notes: 01/28/18 13:20 Labs reviewed with patient noted to have Hgb of 7.4 and UA reveals large bacteria and esterase. Patient informed of the need for blood transfusion and willingly signs consent form. Spoke to Dr. Farris(PCP) who accepts patient onto his service and requests Dr. Farias(infectious disease) as consult. - RAD Interpretation Narrative RAD Interpretations (Text): 01/28/18 12:00 Chest X-ray reviewed by radiologist, shows: FINDINGS: LUNGS: No active pulmonary disease. PLEURA: No significant pleural effusion identified, no pneumothorax apparent. CARDIOVASCULAR: Aortic calcifications. Single lead pacemaker Moderate cardiomegaly no pulmonary vascular congestion. OSSEOUS STRUCTURES: No significant abnormalities. VISUALIZED UPPER ABDOMEN: Normal. OTHER FINDINGS: None. IMPRESSION: No active disease. Radiology Orders: 01/28/18 11:15 CHEST ONE VIEW [RAD] Stat Assembly Line Supervisor: Radiologist - EKG Interpretation EKG Interpretation (Text): 01/28/18 11:35 EKG reviewed by me, shows: Paced rhythm at 72 bpm. Interpreted by ED Physician: Yes Type: 12 lead EKG - Scribe Statement The provider has reviewed the documentation as recorded by the Scribe Nixon Jack. All medical record entries made by the Scribe were at my direction and personally dictated by me. I have reviewed the chart and agree that the record accurately reflects my personal performance of the history, physical exam, medical decision making, and the department course for this patient. I have also personally directed, reviewed, and agree with the discharge instructions and disposition. Disposition/Present on Arrival - Present on Arrival Any Indicators Present on Arrival: No History of DVT/PE: No History of Uncontrolled Diabetes: No Urinary Catheter: No History of Decub. Ulcer: No History Surgical Site Infection Following: None - Disposition Have Diagnosis and Disposition been Completed?: Yes Diagnosis: Anemia, UTI (urinary tract infection) Disposition: HOSPITALIZED Disposition Time: 13:10 Patient Plan: Admission Patient Problems: Current Active Problems Problem Status Onset Anemia Chronic UTI (urinary tract infection) Acute Condition: GUARDED
[2018-01-28 12:00] LABS: URINE BILIRUBIN NEGATIVE (NEGATIVE); URINE BLOOD SMALL (NEGATIVE); URINE GLUCOSE (UA) NEGATIVE (NEGATIVE); URINE LEUKOCYTE ESTERASE MODERATE Leu/uL (NEGATIVE); URINE PROTEIN NEGATIVE mg/dL (<30 mg/dL); URINE UROBILINOGEN 0.2 E.U./dL (<1 E.U./dL)
[2018-01-28 12:03] LABS: URINE APPEARANCE CLEAR (CLEAR); URINE COLOR YELLOW (YELLOW)
[2018-01-28 12:14] LABS: URINE BACTERIA LARGE (NEG); URINE WBC 20 - 25 /hpf (0-6)
[2018-01-28 12:15] LABS: URINE AMORPHOUS SEDIMENT FEW
[2018-01-28] MEDS ORDERED: Alum-Mag Hydrox-Simethicone Susp (30 mL) PO STA (12:15)
[2018-01-28] MEDS ORDERED: Atrop/Hyosc/Scopal/PB Elixir (120 ml) PO STA (12:15)
[2018-01-28 12:27] LABS: BASO # 0.03 K/mm3 (0.0-2.0); BASO % 0.4 % (0.0-3.0); EOS # 0.2 (0.0-0.7); EOS % 2.7 % (1.5-5.0); GRAN # 5.58 (1.4-6.5); GRAN % 68.5 % (50.0-68.0); HEMOGLOBIN 7.6 g/dL (12.0-16.0); LYMPH # 1.2 (1.2-3.4); LYMPH % 15.1 % (22.0-35.0); MEAN CORPUSCULAR HEMOGLOBIN 23.2 pg (25.0-35.0); MEAN CORPUSCULAR HGB CONC 29.8 g/dl (31.0-37.0); MEAN PLATELET VOLUME 9.4 fl (7.0-11.0); MONO # 1.1 (0.1-0.6); MONO % 13.3 % (1.0-6.0); RBC 3.27 10^6/uL (3.5-6.1); WHITE BLOOD COUNT 8.1 10^3/uL (4.5-11.0)
--- NOTE | 2018-01-28 12:28 | RAD ---
Date of service: 01/28/2018 HISTORY: chest pain COMPARISON: 01/01/2018 FINDINGS: LUNGS: No active pulmonary disease. PLEURA: No significant pleural effusion identified, no pneumothorax apparent. CARDIOVASCULAR: Aortic calcifications. Single lead pacemaker Moderate cardiomegaly no pulmonary vascular congestion. OSSEOUS STRUCTURES: No significant abnormalities. VISUALIZED UPPER ABDOMEN: Normal. OTHER FINDINGS: None. IMPRESSION: No active disease.
[2018-01-28 12:32] LABS: INR 1.78; PARTIAL THROMBOPLASTIN TIME 27.9 Seconds (25.1-36.5); PROTHROMBIN TIME 20.7 SECONDS (9.4-12.5)
[2018-01-28 12:36] LABS: D DIMER < 200 ng/mlDDU (0-243)
[2018-01-28 12:39] LABS: ALB/GLOB RATIO 0.9 (1.1-1.8); ALBUMIN 3.8 g/dL (3.0-4.8); CALCIUM 9.2 mg/dL (8.4-10.5)
[2018-01-28 12:48] LABS: TROPONIN I 0.04 ng/mL
[2018-01-28] MEDS ORDERED: cefTRIAXone 1 gm 1 GM/100 ML BAG IVPB STA (12:51)
[2018-01-28] MEDS ORDERED: Morphine 2 mg/ml ISec IVP PRN (16:15)
--- NOTE | 2018-01-28 18:42 | HP ---
DATE OF EXAM: 01/28/2018 HISTORY OF PRESENT ILLNESS: I saw Sarah Baker in a house call a few days ago. I tried to get her go to the emergency room; she would not go at that time. So, we ordered labs at the home, but she ended up in the emergency room before I got a chance to get the labs at the home. She is an 82-year-old -[place] female who was not feeling well, something was not right, she could not put her finger on it. She was a little tired, lethargic. So, we ordered some blood tests, never got to it, now she is here in the hospital. She has a past medical history of chronic renal insufficiency, renal cancer mass, status post right nephrectomy, anxiety, chronic bilateral lower extremity pain, COPD, anemia, GI bleed, lung cancer, status post lobectomy, hypercholesterolemia, hypertension, CKD, and AFib, on Eliquis, presents to the emergency room, complaining of chest pain, shortness of breath, chronic lower extremity discomfort. She is in chronic pain all the time. She has COPD, dementia, syncope. She wears glasses. Renal disorder, she had nephrectomy for renal cancer. She had multiple blood transfusions in the past from cancer. She has a sciatica issue, arthritis, back pain, falls. She uses a cane, unsteady gait, very difficult for her to walk well. She has had rectal bleeding, GERD, and pancreatitis in the past. She has anxiety. PAST SURGICAL HISTORY: She had a right nephrectomy. FAMILY HISTORY: Unknown family history. SOCIAL HISTORY: Former smoker. No alcohol, no drugs. ALLERGIES: NO KNOWN DRUG ALLERGIES. MEDICATIONS: On Lipitor for cholesterol, Norvasc for hypertension, anxiety medication is alprazolam. REVIEW OF SYSTEMS: No acute vision or hearing changes. No sore throat. She does have chest pain. No palpitations. She has some shortness of breath. No cough. No abdominal pain. No nausea, vomiting, constipation, diarrhea. There are some problems urinating, increase in urination. No back pain or neck pain. No rashes that she knows of. No headache or dizziness. She does have anxiety from [id number], not now. PHYSICAL EXAMINATION VITAL SIGNS: She has 97.2 temperature, 78 pulse, 18 respiratory rate, 108/48 blood pressure, 91% O2 sat on room air. GENERAL: Well appearing, nontoxic, comfortable, alert and oriented x3. HEENT: Head; atraumatic, normocephalic. Extraocular muscles are intact. Pupils are reactive to light and accommodation. Throat is moist. NECK: Supple. HEART: Regular rate. Normal S1, S2. Lungs: Decreased breath sounds, but clear to auscultation. No wheezes or rhonchi. ABDOMEN: Soft, nontender. Positive bowel sounds. No guarding, no rebound, no CVA tenderness. EXTREMITIES: No edema bilaterally. NEUROLOGIC: GCS is 15. Cranial nerves II through XII grossly intact. Speech is normal. Alert and oriented x3. SKIN: Warm and dry. LABORATORY DATA: She had multiple tests done. She has 144 sodium, potassium 4.5, BUN 54, creatinine 2.6. She will get 2 units of packed red blood cells today and see if it does not improve it. GFR is 18; I will get renal in. Sugar is 104, calcium is 9.2, magnesium 2.3. Total bili is 0.5, AST is 31, ALT is 18, alkaline phosphatase 101. Lactate dehydrogenase is 645, total creatine kinase is 45. Troponin-I is 0.04. BNP was high at 2340, put on Lasix 20 mg IV daily. Total protein is 7.8, albumin is 3.8. INR is high at 1.78. D-dimer is low, less than 200. White count 8.1; hemoglobin is low at 7.6, she got 2 units of packed red blood cells; hematocrit 25.5; and platelets 265,000. DIAGNOSTIC DATA: Chest x-ray showed no active disease. ASSESSMENT AND PLAN: She is here for symptomatic anemia and urinary tract infection. She will be on alprazolam, Aricept, Lasix IV, Lipitor, metoprolol, morphine for the pain, Norvasc, Rocephin IV. She will have consults with Infectious Disease, Gastroenterology, and Renal and we will follow symptomatic anemia with urinary tract infection dementia. Marco Farris DO [facility]
[2018-01-29 06:59] LABS: MEAN CELL VOLUME 80.5 fl (80.0-105.0); MEAN CORPUSCULAR HEMOGLOBIN 25.3 pg (25.0-35.0); MEAN CORPUSCULAR HGB CONC 31.4 g/dl (31.0-37.0); MEAN PLATELET VOLUME 9.4 fl (7.0-11.0); RBC 3.95 10^6/uL (3.5-6.1); RED CELL DISTRIBUTION WIDTH 19.9 % (11.5-14.5); WHITE BLOOD COUNT 8.3 10^3/uL (4.5-11.0)
--- NOTE | 2018-01-29 07:35 | CARD ---
APPROVED REPORT Date of service: 01/28/2018 EKG Measurement Heart [id number] <Conclusion> Electronic ventricular pacemaker: 100 % V. Paced. A. Flutter No change
[2018-01-29 07:40] LABS: ALB/GLOB RATIO 0.9 (1.1-1.8); ALBUMIN 3.3 g/dL (3.0-4.8); CALCIUM 9.1 mg/dL (8.4-10.5)
--- NOTE | 2018-01-29 08:38 | CP.PCM.CON ---
<Carlos Gray - Last Filed: 01/29/18 12:37> History of Present Illness - History of Present Illness History of Present Illness: GI Fellow PGY4, Consult note. 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 Patient is pleasantly demented and easily confused on days and previous procedures. She is able to tell me she is feeling much better after the blood transfusions. Previous reports show she has had similar issues in the past, which she was advised to make an appointment with GI as an outpt. She doesn't think she has seen a GI physician recently. She states she has difficulty moving her bowels, but has NOT seen any blood coming from her. She was found be anemic, Hb 7.6, INR 1.78, She was transfused 2u pRBCs and Hb increased appropriately to 10. She previously had Colonoscopy 08/22 with APC of AVM. EGD 08/22 showed clean base gastric ulcers. PMHx- chronic renal insufficiency, renal cancer/mass s/p R nephrectomy, anxiety, chronic bilateral lower extremity pain, COPD, anemia, GI bleed, lung cancer s/p lobectomy, hypercholesterolemia, hypertension, ckd, and Afib on OAC eliquis PSHx- nephrectomy, PPM FMHx - unremarkable SocHx - No alcohol or tobacco use. 12pt ROS completed and negative except for above. Past Patient History - Infectious Disease Hx of Infectious Diseases: None - Tetanus Immunizations Tetanus Immunization: >10 years Ago - Past Medical History & Family History Past Medical History?: Yes - Past Social History Smoking Status: Never Smoked - CARDIAC Hx Pacemaker: Yes - PULMONARY Hx Chronic Obstructive Pulmonary Disease (COPD): Yes - NEUROLOGICAL Hx Neurological Disorder: Yes Hx Dementia: Yes Hx Dizziness: Yes (SYNCOPE) - HEENT Hx HEENT Problems: Yes (glasses) - RENAL Hx Chronic Kidney Disease: Yes Hx Renal (Kidney) Cancer: (pt denies) Other/Comment: r nephrectomy - ENDOCRINE/METABOLIC Hx Endocrine Disorders: No - HEMATOLOGICAL/ONCOLOGICAL Hx Cancer: No - INTEGUMENTARY Hx Dermatological Problems: Yes - MUSCULOSKELETAL/RHEUMATOLOGICAL Hx Musculoskeletal Disorders: Yes (sciatica) Hx Arthritis: Yes Hx Back Pain: Yes Hx Falls: Yes (past) Hx Unsteady Gait: Yes (cane) - GASTROINTESTINAL Hx Gastrointestinal Disorders: Yes (rectal bleeding) Hx Gastroesophageal Reflux: Yes Hx Pancreatitis: Yes - GENITOURINARY/GYNECOLOGICAL Hx Genitourinary Disorders: No - PSYCHIATRIC Hx Psychophysiologic Disorder: Yes Hx Anxiety: Yes - SURGICAL HISTORY Hx Mastectomy: No - ANESTHESIA Hx Anesthesia: Yes Hx Anesthesia Reactions: No Hx Malignant Hyperthermia: No Meds Allergies/Adverse Reactions: Allergies Allergy/AdvReac Type Severity Reaction Status Date / Time No Known Allergies Allergy Verified 09/24/17 12:30 - Medications Medications: Current Medications Amlodipine Besylate (Norvasc) 5 mg PO DAILY [facility] Atorvastatin Calcium (Lipitor) 20 mg PO DAILY [facility] Donepezil HCl (Aricept) 10 mg PO HS [facility] Last Admin: 01/28/18 21:40 Dose: 10 mg Furosemide (Lasix) 20 mg IVP DAILY [facility] Ceftriaxone Sodium (Rocephin 1 Gram Ivpb) 1 gm in 100 mls @ 100 mls/hr IVPB DAILY [facility]; Protocol Metoprolol Tartrate (Lopressor) 25 mg PO BID [facility] Last Admin: 01/28/18 17:42 Dose: 25 mg Morphine Sulfate (Morphine) 1 mg IVP Q4H PRN PRN Reason: Pain, moderate (4-7) Non-Formulary Medication (Alprazolam [Alprazolam Xr]) 0.5 mg PO BID PRN PRN Reason: Anxiety Pantoprazole Sodium (Protonix Inj) 40 mg IVP Q12 [facility] Last Admin: 01/28/18 21:40 Dose: 40 mg Tramadol HCl (Ultram) 50 mg PO TID PRN PRN Reason: Pain, moderate (4-7) Last Admin: 01/28/18 17:41 Dose: 50 mg Physical Exam - Constitutional Appears: Non-toxic, No Acute Distress, Confused, Chronically Ill - Head Exam Head Exam: NORMAL INSPECTION, NORMOCEPHALIC - Eye Exam Eye Exam: EOMI, Normal appearance - ENT Exam ENT Exam: Mucous Membranes Moist, Normal Exam - Respiratory Exam Respiratory Exam: Clear to Auscultation Bilateral, NORMAL BREATHING PATTERN - Cardiovascular Exam Cardiovascular Exam: REGULAR RHYTHM, +S1, +S2 - GI/Abdominal Exam GI & Abdominal Exam: Normal Bowel Sounds, Soft. absent: Organomegaly, Tenderness - Neurological Exam Neurological exam: Alert, CN II-XII Intact, Oriented x3 - Psychiatric Exam Psychiatric exam: Normal Affect, Normal Mood - Skin Skin Exam: Dry, Normal Color Results - Vital Signs Recent Vital Signs: Last Vital Signs Temp 97.7 F 01/29/18 06:35 Pulse 61 01/29/18 06:35 Resp 20 01/29/18 06:35 BP 133/69 01/29/18 06:35 Pulse Ox 100 01/28/18 13:50 - Labs Result Diagrams: 01/29/18 06:00 01/29/18 06:00 Labs: Laboratory Results - last 24 hr 01/28/18 01/28/18 01/28/18 11:55 12:10 12:10 WBC 8.1 RBC 3.27 L Hgb 7.6 L D Hct 25.5 L MCV 78.0 L MCH 23.2 L MCHC 29.8 L RDW 22.0 H Plt Count 265 MPV 9.4 Gran % 68.5 H Lymph % (Auto) 15.1 L [place] % (Auto) 13.3 H Eos % (Auto) 2.7 Baso % (Auto) 0.4 Gran # 5.58 Lymph # (Auto) 1.2 [place] # (Auto) 1.1 H Eos # (Auto) 0.2 Baso # (Auto) 0.03 PT 20.7 H INR 1.78 APTT 27.9 D-Dimer, Quantitative < 200 Sodium Potassium Chloride Carbon Dioxide Anion Gap BUN Creatinine Est GFR ( Amer) Est GFR (Non-Af Amer) Random Glucose Calcium Magnesium Total Bilirubin AST ALT Alkaline Phosphatase Lactate Dehydrogenase Total Creatine Kinase Troponin I NT-Pro-B Natriuret Pep Total Protein Albumin Globulin Albumin/Globulin Ratio Urine Color Yellow Urine Appearance Clear Urine pH 6.0 Ur Specific [place] 1.020 Urine Protein Negative Urine Glucose (UA) Negative Urine Ketones Negative Urine Blood Small H Urine Nitrate Negative Urine Bilirubin Negative Urine Urobilinogen 0.2 Ur Leukocyte Esterase Moderate H Urine RBC 5 - 10 Urine WBC 20 - 25 Ur Epithelial Cells 6 - 8 Amorphous Sediment Few Urine Bacteria Large Urine Other [place] Blood Type Antibody Screen Crossmatch BBK History Checked 01/28/18 01/28/18 01/28/18 12:10 12:50 20:27 WBC RBC Hgb Hct MCV MCH MCHC RDW Plt Count MPV Gran % Lymph % (Auto) [place] % (Auto) Eos % (Auto) Baso % (Auto) Gran # Lymph # (Auto) [place] # (Auto) Eos # (Auto) Baso # (Auto) PT INR APTT D-Dimer, Quantitative Sodium 144 Potassium 4.5 Chloride 115 H Carbon Dioxide 19 L Anion Gap 14 BUN 54 H Creatinine 2.6 H Est GFR ( Amer) 21 Est GFR (Non-Af Amer) 18 Random Glucose 104 Calcium 9.2 Magnesium 2.3 H Total Bilirubin 0.5 AST 31 ALT 18 Alkaline Phosphatase 101 Lactate Dehydrogenase 645 Total Creatine Kinase 45 Troponin I 0.04 D 0.04 NT-Pro-B Natriuret Pep 2340 H Total Protein 7.8 Albumin 3.8 Globulin 4.0 Albumin/Globulin Ratio 0.9 L Urine Color Urine Appearance Urine pH Ur Specific [place] Urine Protein Urine Glucose (UA) Urine Ketones Urine Blood Urine Nitrate Urine Bilirubin Urine Urobilinogen Ur Leukocyte Esterase Urine RBC Urine WBC Ur Epithelial Cells Amorphous Sediment Urine Bacteria Urine Other Blood Type AB POSITIVE Antibody Screen Negative Crossmatch See Detail BBK History Checked Patient has bt 01/29/18 01/29/18 01/29/18 02:00 06:00 06:00 WBC 8.3 RBC 3.95 Hgb 10.0 L D Hct 31.8 L MCV 80.5 MCH 25.3 MCHC 31.4 RDW 19.9 H Plt Count 218 MPV 9.4 Gran % Lymph % (Auto) [place] % (Auto) Eos % (Auto) Baso % (Auto) Gran # Lymph # (Auto) [place] # (Auto) Eos # (Auto) Baso # (Auto) PT INR APTT D-Dimer, Quantitative Sodium 146 Potassium 5.5 H Chloride 117 H Carbon Dioxide 18 L Anion Gap 17 BUN 50 H Creatinine 2.4 H Est GFR ( Amer) 23 Est GFR (Non-Af Amer) 19 Random Glucose 97 Calcium 9.1 Magnesium Total Bilirubin 0.7 AST 19 ALT 24 Alkaline Phosphatase 93 Lactate Dehydrogenase Total Creatine Kinase Troponin I 0.04 NT-Pro-B Natriuret Pep Total Protein 7.1 Albumin 3.3 Globulin 3.8 Albumin/Globulin Ratio 0.9 L Urine Color Urine Appearance Urine pH Ur Specific [place] Urine Protein Urine Glucose (UA) Urine Ketones Urine Blood Urine Nitrate Urine Bilirubin Urine Urobilinogen Ur Leukocyte Esterase Urine RBC Urine WBC Ur Epithelial Cells Amorphous Sediment Urine Bacteria Urine Other Blood Type Antibody Screen Crossmatch BBK History Checked Assessment & Plan - Assessment and Plan (Free Text) Assessment: #Recurrent symptomatic chronic anemia requiring frequent blood transfusions - >15 pRBC transfusion in the last 2-3 years. #Hx of AVMs s/p APC #Hx of gastric ulcers #Afib on Eliquis, aspirin #CKD #Renal cancer s/p nephrectomy #Dementia PLAN: -Etiology of anemia is multifactorial (Hx AVMs, ulcer, on eliquis, CKD, chronic disease) -Continue PPI -Hb appropriately responded s/p 2u pRBCs. Continue to monitor. -Patient has been unable to make appointment with outpatient GI. She would benefit from non-urgent EGD/colonoscopy. This could be done as an inpatient. We will follow primary recommendations. -Start bowel regimen - Date & Time Date: 01/29/18 Time: 10:05 <Gennaro Chaparro - Last Filed: 01/29/18 13:15> Meds - Medications Medications: Current Medications Amlodipine Besylate (Norvasc) 5 mg PO DAILY [facility] Last Admin: 01/29/18 09:55 Dose: 5 mg Atorvastatin Calcium (Lipitor) 20 mg PO DAILY [facility] Last Admin: 01/29/18 09:52 Dose: 20 mg Docusate Sodium (Colace) 100 mg PO DAILY [facility] Last Admin: 01/29/18 12:12 Dose: 100 mg Donepezil HCl (Aricept) 10 mg PO HS [facility] Last Admin: 01/28/18 21:40 Dose: 10 mg Furosemide (Lasix) 20 mg IVP DAILY [facility] Last Admin: 01/29/18 09:56 Dose: 20 mg Ceftriaxone Sodium (Rocephin 1 Gram Ivpb) 1 gm in 100 mls @ 100 mls/hr IVPB DAILY [facility]; Protocol Last Admin: 01/29/18 09:57 Dose: 100 mls/hr Metoprolol Tartrate (Lopressor) 25 mg PO BID [facility] Last Admin: 01/29/18 09:55 Dose: 25 mg Morphine Sulfate (Morphine) 1 mg IVP Q4H PRN PRN Reason: Pain, moderate (4-7) Non-Formulary Medication (Alprazolam [Alprazolam Xr]) 0.5 mg PO BID PRN PRN Reason: Anxiety Pantoprazole Sodium (Protonix Inj) 40 mg IVP Q12 [facility] Last Admin: 01/29/18 09:56 Dose: 40 mg Polyethylene Glycol (Miralax) 17 gm PO DAILY [facility] Last Admin: 01/29/18 12:12 Dose: 17 gm Tramadol HCl (Ultram) 50 mg PO TID PRN PRN Reason: Pain, moderate (4-7) Last Admin: 01/28/18 17:41 Dose: 50 mg Results - Vital Signs Recent Vital Signs: Last Vital Signs Temp 97.7 F 01/29/18 06:35 Pulse 64 01/29/18 09:55 Resp 20 01/29/18 06:35 BP 134/70 01/29/18 09:56 Pulse Ox 100 01/29/18 06:00 - Labs Result Diagrams: 01/29/18 06:00 01/29/18 06:00 Labs: Laboratory Results - last 24 hr 01/28/18 01/28/18 01/28/18 12:10 12:10 12:10 WBC 8.1 RBC 3.27 L Hgb 7.6 L D Hct 25.5 L MCV 78.0 L MCH 23.2 L MCHC 29.8 L RDW 22.0 H Plt Count 265 MPV 9.4 Gran % 68.5 H Lymph % (Auto) 15.1 L [place] % (Auto) 13.3 H Eos % (Auto) 2.7 Baso % (Auto) 0.4 Gran # 5.58 Lymph # (Auto) 1.2 [place] # (Auto) 1.1 H Eos # (Auto) 0.2 Baso # (Auto) 0.03 PT 20.7 H INR 1.78 APTT 27.9 D-Dimer, Quantitative < 200 Sodium 144 Potassium 4.5 Chloride 115 H Carbon Dioxide 19 L Anion Gap 14 BUN 54 H Creatinine 2.6 H Est GFR ( Amer) 21 Est GFR (Non-Af Amer) 18 Random Glucose 104 Calcium 9.2 Magnesium 2.3 H Total Bilirubin 0.5 AST 31 ALT 18 Alkaline Phosphatase 101 Lactate Dehydrogenase 645 Total Creatine Kinase 45 Troponin I 0.04 D NT-Pro-B Natriuret Pep 2340 H Total Protein 7.8 Albumin 3.8 Globulin 4.0 Albumin/Globulin Ratio 0.9 L Blood Type Antibody Screen Crossmatch BBK History Checked 01/28/18 01/28/18 01/29/18 12:50 20:27 02:00 WBC RBC Hgb Hct MCV MCH MCHC RDW Plt Count MPV Gran % Lymph % (Auto) [place] % (Auto) Eos % (Auto) Baso % (Auto) Gran # Lymph # (Auto) [place] # (Auto) Eos # (Auto) Baso # (Auto) PT INR APTT D-Dimer, Quantitative Sodium Potassium Chloride Carbon Dioxide Anion Gap BUN Creatinine Est GFR ( Amer) Est GFR (Non-Af Amer) Random Glucose Calcium Magnesium Total Bilirubin AST ALT Alkaline Phosphatase Lactate Dehydrogenase Total Creatine Kinase Troponin I 0.04 0.04 NT-Pro-B Natriuret Pep Total Protein Albumin Globulin Albumin/Globulin Ratio Blood Type AB POSITIVE Antibody Screen Negative Crossmatch See Detail BBK History Checked Patient has bt 01/29/18 01/29/18 06:00 06:00 WBC 8.3 RBC 3.95 Hgb 10.0 L D Hct 31.8 L MCV 80.5 MCH 25.3 MCHC 31.4 RDW 19.9 H Plt Count 218 MPV 9.4 Gran % Lymph % (Auto) [place] % (Auto) Eos % (Auto) Baso % (Auto) Gran # Lymph # (Auto) [place] # (Auto) Eos # (Auto) Baso # (Auto) PT INR APTT D-Dimer, Quantitative Sodium 146 Potassium 5.5 H Chloride 117 H Carbon Dioxide 18 L Anion Gap 17 BUN 50 H Creatinine 2.4 H Est GFR ( Amer) 23 Est GFR (Non-Af Amer) 19 Random Glucose 97 Calcium 9.1 Magnesium Total Bilirubin 0.7 AST 19 ALT 24 Alkaline Phosphatase 93 Lactate Dehydrogenase Total Creatine Kinase Troponin I NT-Pro-B Natriuret Pep Total Protein 7.1 Albumin 3.3 Globulin 3.8 Albumin/Globulin Ratio 0.9 L Blood Type Antibody Screen Crossmatch BBK History Checked Attending/Attestation - Attestation I have personally seen and examined this patient.: Yes I have fully participated in the care of the patient.: Yes I have reviewed all pertinent clinical information: Yes Notes (Text): 01/29/18 13:11 The pt was seen and examined. Chart reviewed. Assessment, findings and recommendations as documented above were discussed with Dr. Gray.
--- NOTE | 2018-01-29 09:20 | CON ---
DATE OF CONSULTATION: 01/29/2018 The patient is seen earlier today in Room 373, Bed 3. CHIEF COMPLAINT: The patient states she came in because she was short of breath for several days. HISTORY OF PRESENT ILLNESS: This is an 82-year-old female with past medical history significant for atrial fibrillation, chronic obstructive lung disease, coronary artery disease, congestive heart failure, renal cell cancer. The patient with a history of nephrectomy. The patient with a history of pacemaker. Nephrectomy was 25 years ago. Pacemaker was 3 years ago. The patient also with a lobectomy, history of anxiety, lung cancer and dementia, who is admitted with shortness of breath and multiple hospitalizations. The patient denies any fevers or chills. No nausea or vomiting. No abdominal pain or diarrhea. In the emergency room, states that the patient had chest pain. She denied any chest pain this morning. She states she had shortness of breath for 2 days. PAST MEDICAL HISTORY: Significant for dementia, lung cancer, anxiety, renal cell cancer, congestive heart failure, GI bleed, coronary artery disease, chronic obstructive lung disease, and atrial fibrillation. PAST SURGICAL HISTORY: Significant for nephrectomy 25 years ago, pacemaker 3 years ago, lobectomy she does not know when. SOCIAL HISTORY: She states she lives alone. 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 She has no pets, no recent travel. MEDICATIONS AT HOME: Reviewed and include Cardizem, amlodipine, Protonix, metoprolol, Lasix and Lipitor. ALLERGIES: THE PATIENT HAS NO KNOWN ALLERGIES. REVIEW OF SYSTEMS: A 14-point review of systems is performed. PHYSICAL EXAMINATION: VITAL SIGNS: Temperature is 98, blood pressure is 125/70, respiratory rate of 20, heart rate of 70. HEENT: Unremarkable. NECK: Supple. LUNGS: Decreased breath sounds. HEART: Normal S1 and S2. ABDOMEN: Soft, nontender. No organomegaly, no rebound, no guarding, no masses. LABORATORY EXAMINATION: Reveals a white count of 8.1, hemoglobin of 7.6, and platelets of 265. Differential is noted. Coagulation is noted. Chemistries reveal a BUN of 54 and creatinine of 2.6. The patient has had elevated creatinines of 2.4 and 2.6. The BNP is 2340. WBC in the urine is 20-25 and large bacteria, there is yeast. Review of microbiology from previous admissions, the urine culture was negative. The blood cultures were negative in the past. The patient did have Enterobacter cloacae pansensitive organism in the urine in the past and Enterococcus faecium in the urine, which was corcoran resistant, VRE in the past. Dr. Marco Farris's history and physical examination is noted. The patient had a chest x-ray, which shows no pulmonary congestion, there is cardiomegaly, no active disease. Emergency room doctor, Dr. Manish Marinelli's progress note is noted. The patient was last hospitalized in 09/2017. ASSESSMENT AND PLAN: This is an 82-year-old female with atrial fibrillation, chronic obstructive lung disease, chronic obstructive pulmonary disease, coronary artery disease, congestive heart failure, renal cancer, lung cancer, dementia, who was admitted with shortness of breath and acute diastolic congestive heart failure on top of chronic congestive heart failure and urinary tract infection with questionable frequency intermittently. She is not giving an accurate history and currently we will treat the patient with ceftriaxone pending urine culture. The patient is on IV Lasix for acute diastolic congestive heart failure. We will make further recommendations. The patient also with anemia, renal insufficiency, symptomatic anemia, blood loss anemia. Jenaro Farias MD
[2018-01-29] MEDS: cefTRIAXone 1 gm 1 GM/100 ML BAG IVPB SCH (09:57)
[2018-01-29] MEDS ORDERED: POLYETHYLENE GLYCOL 3350 17 GM/Dose PACKET PO SCH (10:30)
[2018-01-29] MEDS ORDERED: Sod Polystyrene Sulf 15 gm/60 ml Susp PO ONE (11:16)
--- NOTE | 2018-01-29 12:05 | PN ---
DATE: 01/29/2018 SUBJECTIVE: I saw her in bed this morning. She is looking a little stronger, feeling a little bit better. The pain medications are helping her pain that comes from time to time. She is breathing better. No shortness of breath or chest pain. She is comfortable. MEDICATIONS: She is currently on alprazolam, Aricept, Colace, Lasix 20 IV, Lipitor, Lopressor, MiraLax, morphine, Norvasc, Protonix, Rocephin and Ultram. PHYSICAL EXAMINATION: VITAL SIGNS: 97.7 temp, 61 pulse, 133/69 blood pressure, 20 respiratory rate, 100% O2 sat. HEENT: Head is atraumatic, normocephalic. HEART: Regular rate. LUNGS: Decreased breath sounds, but clear. ABDOMEN: Soft. EXTREMITIES: No edema. LABORATORY DATA: She has a 146 sodium; potassium is 5.5, I gave her Kayexalate one-time dose of 15 g; BUN is 15; creatinine 2.4, getting better; GFR is 19; sugar is 97; calcium is 9.1; total bili is 0.7; AST is 19; ALT is 24; alk phos 93. Troponins are 0.04, 0.04 and 0.04. Total protein 7.1. Urine with moderate leukocytes and large bacteria. She has a 1.78 INR. She has 8.3 white count, hemoglobin is up to 10 status post transfusion, 31.8 hematocrit with 218 platelets. ASSESSMENT AND PLAN: We will check her labs tomorrow. If she does well, my plan is to try and discharge her home. I want to see what Physical Therapy thinks about her walking ability to be discharged or she needs Transitional Care Unit or subacute rehabilitation, but she did well. She has less complaints and hopefully tomorrow I can get her back to her facility if the labs maintained. She is on IV antibiotics for urinary tract infection. Also, she is on blood transfusion status post anemia. Marco Farris DO [id number]
[2018-01-29 17:01] VITALS: TEMP 98
[2018-01-30 06:49] LABS: MEAN CELL VOLUME 79.2 fl (80.0-105.0); MEAN CORPUSCULAR HEMOGLOBIN 25.1 pg (25.0-35.0); MEAN CORPUSCULAR HGB CONC 31.6 g/dl (31.0-37.0); MEAN PLATELET VOLUME 9.6 fl (7.0-11.0); RBC 3.99 10^6/uL (3.5-6.1)
[2018-01-30 07:05] LABS: ALB/GLOB RATIO 0.9 (1.1-1.8); ALBUMIN 3.3 g/dL (3.0-4.8)
[2018-01-30 07:08] VITALS: RESP 18; O2SAT 100
[2018-01-30] MEDS ORDERED: Pantoprazole 40 mg EC Tab PO SCH (07:30)
--- NOTE | 2018-01-30 09:30 | CP.PCM.PN ---
<Carlos Gray - Last Filed: 01/30/18 09:25> Subjective - Date & Time of Evaluation Date of Evaluation: 01/30/18 Time of Evaluation: 09:25 - Subjective Subjective: Patient is doing well. Tolerating diet. No vomiting. She said she had a "good" BM lastnight after miralax and kayexalate. Hb stable this AM. Objective - Vital Signs/Intake and Output Vital Signs (last 24 hours): Temp Pulse Resp BP Pulse Ox 98.0 F 62 18 134/73 100 01/30/18 06:00 01/30/18 06:00 01/30/18 06:00 01/30/18 06:00 01/30/18 06:00 Intake and Output: 01/30/18 01/30/18 06:59 18:59 Intake Total 100 Balance 100 - Medications Medications: Current Medications Alprazolam (Xanax) 0.25 mg PO TID PRN; Protocol PRN Reason: Anxiety Stop: 02/05/18 18:01 Last Admin: 01/29/18 17:08 Dose: 0.25 mg Amlodipine Besylate (Norvasc) 5 mg PO DAILY COUNTS INCLUDE 234 BEDS AT THE [facility] Last Admin: 01/29/18 09:55 Dose: 5 mg Atorvastatin Calcium (Lipitor) 20 mg PO DAILY COUNTS INCLUDE 234 BEDS AT THE [facility] Last Admin: 01/29/18 09:52 Dose: 20 mg Docusate Sodium (Colace) 100 mg PO DAILY COUNTS INCLUDE 234 BEDS AT THE [facility] Last Admin: 01/29/18 12:12 Dose: 100 mg Donepezil HCl (Aricept) 10 mg PO HS COUNTS INCLUDE 234 BEDS AT THE [facility] Last Admin: 01/29/18 21:48 Dose: 10 mg Furosemide (Lasix) 20 mg IVP DAILY COUNTS INCLUDE 234 BEDS AT THE [facility] Last Admin: 01/29/18 09:56 Dose: 20 mg Ceftriaxone Sodium (Rocephin 1 Gram Ivpb) 1 gm in 100 mls @ 100 mls/hr IVPB DAILY COUNTS INCLUDE 234 BEDS AT THE [facility]; Protocol Last Admin: 01/29/18 09:57 Dose: 100 mls/hr Metoprolol Tartrate (Lopressor) 25 mg PO BID COUNTS INCLUDE 234 BEDS AT THE [facility] Last Admin: 01/29/18 18:06 Dose: 25 mg Morphine Sulfate (Morphine) 1 mg IVP Q4H PRN PRN Reason: Pain, moderate (4-7) Pantoprazole Sodium (Protonix Ec Tab) 40 mg PO ACBD COUNTS INCLUDE 234 BEDS AT THE [facility] Last Admin: 01/30/18 08:10 Dose: 40 mg Polyethylene Glycol (Miralax) 17 gm PO DAILY [facility] Last Admin: 01/29/18 12:12 Dose: 17 gm Tramadol HCl (Ultram) 50 mg PO TID PRN PRN Reason: Pain, moderate (4-7) Last Admin: 01/30/18 00:10 Dose: 50 mg - Labs Labs: 01/30/18 06:00 01/30/18 06:00 PT 20.7 SECONDS (9.4-12.5) H 01/28/18 12:10 INR 1.78 01/28/18 12:10 APTT 27.9 Seconds (25.1-36.5) 01/28/18 12:10 - Constitutional Appears: Non-toxic, No Acute Distress - Head Exam Head Exam: NORMAL INSPECTION - Eye Exam Eye Exam: EOMI, Normal appearance - ENT Exam ENT Exam: Mucous Membranes Moist - Respiratory Exam Respiratory Exam: Clear to Ausculation Bilateral, NORMAL BREATHING PATTERN - Cardiovascular Exam Cardiovascular Exam: REGULAR RHYTHM, +S1, +S2 - GI/Abdominal Exam GI & Abdominal Exam: Soft, Normal Bowel Sounds. absent: Tenderness - Neurological Exam Neurological Exam: Alert, Awake, Oriented x3 - Psychiatric Exam Psychiatric exam: Normal Affect, Normal Mood - Skin Skin Exam: Dry, Normal Color Assessment and Plan - Assessment and Plan (Free Text) Assessment: #Recurrent symptomatic chronic anemia requiring frequent blood transfusions - >15 pRBC transfusion in the last 2-3 years. #Hx of AVMs s/p APC #Hx of gastric ulcers #Afib on Eliquis, aspirin #CKD #Renal cancer s/p nephrectomy #Dementia PLAN: -Etiology of anemia is multifactorial (Hx AVMs, ulcer, on eliquis, CKD, chronic disease) -Continue PPI -Hb appropriately responded s/p 2u pRBCs. Continue to monitor. -Patient has been unable to make appointment with outpatient GI. She would benefit from non-urgent EGD/colonoscopy. Discussed with primary team. EGD/CSPY would not be able to be performed until later this week. Patient is medically stable to go home and patient requesting to go home. Discharge planning per primary team, will follow recommendations. <Gennaro Chaparro - Last Filed: 01/30/18 11:38> Objective - Vital Signs/Intake and Output Vital Signs (last 24 hours): Temp Pulse Resp BP Pulse Ox 98.0 F 78 18 105/71 100 01/30/18 06:00 01/30/18 10:00 01/30/18 06:00 01/30/18 09:49 01/30/18 06:00 Intake and Output: 01/30/18 01/30/18 06:59 18:59 Intake Total 100 Balance 100 - Medications Medications: Current Medications Alprazolam (Xanax) 0.25 mg PO TID PRN; Protocol PRN Reason: Anxiety Stop: 02/05/18 18:01 Last Admin: 01/29/18 17:08 Dose: 0.25 mg Amlodipine Besylate (Norvasc) 5 mg PO DAILY COUNTS INCLUDE 234 BEDS AT THE [facility] Last Admin: 01/30/18 09:49 Dose: 5 mg Atorvastatin Calcium (Lipitor) 20 mg PO DAILY COUNTS INCLUDE 234 BEDS AT THE [facility] Last Admin: 01/30/18 09:47 Dose: 20 mg Docusate Sodium (Colace) 100 mg PO DAILY COUNTS INCLUDE 234 BEDS AT THE [facility] Last Admin: 01/30/18 09:47 Dose: 100 mg Donepezil HCl (Aricept) 10 mg PO HS COUNTS INCLUDE 234 BEDS AT THE [facility] Last Admin: 01/29/18 21:48 Dose: 10 mg Furosemide (Lasix) 20 mg IVP DAILY COUNTS INCLUDE 234 BEDS AT THE [facility] Last Admin: 01/30/18 09:48 Dose: 20 mg Ceftriaxone Sodium (Rocephin 1 Gram Ivpb) 1 gm in 100 mls @ 100 mls/hr IVPB DAILY COUNTS INCLUDE 234 BEDS AT THE [facility]; Protocol Last Admin: 01/30/18 09:49 Dose: 100 mls/hr Metoprolol Tartrate (Lopressor) 25 mg PO BID COUNTS INCLUDE 234 BEDS AT THE [facility] Last Admin: 01/29/18 18:06 Dose: 25 mg Morphine Sulfate (Morphine) 1 mg IVP Q4H PRN PRN Reason: Pain, moderate (4-7) Pantoprazole Sodium (Protonix Ec Tab) 40 mg PO ACBD COUNTS INCLUDE 234 BEDS AT THE [facility] Last Admin: 01/30/18 08:10 Dose: 40 mg Polyethylene Glycol (Miralax) 17 gm PO DAILY [facility] Last Admin: 01/29/18 12:12 Dose: 17 gm Tramadol HCl (Ultram) 50 mg PO TID PRN PRN Reason: Pain, moderate (4-7) Last Admin: 01/30/18 00:10 Dose: 50 mg - Labs Labs: 01/30/18 06:00 01/30/18 06:00 PT 20.7 SECONDS (9.4-12.5) H 01/28/18 12:10 INR 1.78 01/28/18 12:10 APTT 27.9 Seconds (25.1-36.5) 01/28/18 12:10 Attending/Attestation - Attestation I have personally seen and examined this patient.: Yes I have fully participated in the care of the patient.: Yes I have reviewed all pertinent clinical information, including history, physical exam and plan: Yes Notes (Text): 01/30/18 11:38 The pt was seen and examined. Chart reviewed. Assessment, findings and recommendations as documented above were discussed with Dr. Gray.
[2018-01-30] MEDS: cefTRIAXone 1 gm 1 GM/100 ML BAG IVPB SCH (09:49)
[2018-01-30 09:59] VITALS: BP 105/71
--- NOTE | 2018-01-30 10:26 | PN ---
DATE: 01/30/2018 SUBJECTIVE: The patient is seen in bed, in no acute distress. No fevers and no chills. No nausea, no vomiting. PHYSICAL EXAMINATION: VITAL SIGNS: Temperature is 98, blood pressure is 120/70, respiratory rate of 18. HEENT: Unremarkable. NECK: Supple. LUNGS: Decreased breath sounds. HEART: Normal S1 and S2. ABDOMEN: Soft, nontender. LABORATORY EXAMINATION: Reveals the patient to have white count of 7000, hemoglobin of 10, platelets of 222,000. Coagulation is reviewed. Chemistries are noted with a creatinine that is down to 2.1. Urinalysis is noted, wbc's of 20-25. Unfortunately, the urine culture collection shows 10,000 to 50,000 multiple species, probable contamination. Review of orders reveals the patient to be on ceftriaxone. ASSESSMENT/PLAN: This is an 82-year-old female seen in Room 373, Bed 3, this morning. She states that she is much improved. However, she feels weak and has still occasional frequency, who was admitted with past medical history of atrial fibrillation, chronic obstructive lung disease, coronary artery disease, congestive heart failure, renal cell cancer, and had a nephrectomy in the past, and has a pacemaker with dementia and lung cancer, who was admitted with shortness of breath with probable acute diastolic congestive heart failure on top of chronic congestive heart failure and questionable urinary tract infection, was treated with 3 days of ceftriaxone and anemia and renal insufficiency. Case discussed with Dr. Marco Farris. Jenaro Farias MD
[2018-01-30 11:29] VITALS: PULSE 78
--- NOTE | 2018-01-30 12:09 | DS ---
HISTORY OF PRESENT ILLNESS: She is doing that much better. Her hemoglobin is better. She feels better. She has had better spirits. No complaints. No pain at this time. She is on Aricept, Colace, Lasix, Lipitor, Lopressor, MiraLax, Norvasc, Protonix, Ultram and Xanax. She was here for UTI. She was on Rocephin. She had few days of that, that should be fine. PHYSICAL EXAMINATION: VITAL SIGNS: She has a vital signs of 98 temp, 62 pulse, 134/70 blood pressure, 18 respiratory rate and 100% O2 sat on nasal cannula. HEENT: Head is atraumatic and normocephalic. She is alert, smiling, comfortable and no complaints. HEART: Regular rate. LUNG: Clear to auscultation. ABDOMEN: Soft and nontender. Positive bowel sounds. EXTREMITIES: No edema. LABORATORY DATA: She has a 7 white count, 10 hemoglobin, 31.6 hematocrit and 222,000 platelets. She has a sodium 145, potassium 5, BUN of 47, creatinine 2.1 better, GFR is 23, sugar is 87, calcium is 9, magnesium is 2.3, total bilirubin is 0.5, AST is 20, ALT is 24, alk phos 94 and total protein is 7. Overall, she did quite well here. She is much improved. She will be discharge today. I discussed with GI, GI said they cannot scope her until Wednesday or and that on the outpatient she will need an endoscopy upper and lower. Presently, her hemoglobin is holding at 10 with 2 units of pack red blood cells, I could not arrange inpatient endoscopy, so we will discharge her for outpatient. All the prescriptions are written, discussed with the nurse. I will see her in the house call. Marco Farris DO
== END 2018-01-30 15:34 | disposition home or self-care (01) | DRG 811 ==
LOC: ED 11:03 → ERH 13:00 → 3RSO 14:14
PROVIDERS: ADMIT Family Medicine; ATTEND Family Medicine
PROC: 30233N1 Transfusion of Nonautologous Red Blood Cells into Peripheral Vein, Percutaneous Approach (ICD-10-PCS; principal; 2018-01-28)
DX: D50.0 Iron deficiency anemia secondary to blood loss (chronic) (principal); I50.33 Acute on chronic diastolic (congestive) heart failure; N39.0 Urinary tract infection, site not specified; I13.0 Hypertensive heart and chronic kidney disease with heart failure and stage 1 through stage 4 chronic kidney disease, or unspecified chronic kidney disease; N18.9 Chronic kidney disease, unspecified; D63.1 Anemia in chronic kidney disease; I48.91 Unspecified atrial fibrillation; I25.10 Atherosclerotic heart disease of native coronary artery without angina pectoris; J44.9 Chronic obstructive pulmonary disease, unspecified; K21.9 Gastro-esophageal reflux disease without esophagitis; E78.00 Pure hypercholesterolemia, unspecified; M19.90 Unspecified osteoarthritis, unspecified site; M54.30 Sciatica, unspecified side; F03.90 Unspecified dementia, unspecified severity, without behavioral disturbance, psychotic disturbance, mood disturbance, and anxiety; F41.9 Anxiety disorder, unspecified; G89.29 Other chronic pain; Z87.11 Personal history of peptic ulcer disease; Z85.528 Personal history of other malignant neoplasm of kidney; Z90.5 Acquired absence of kidney; Z85.118 Personal history of other malignant neoplasm of bronchus and lung; Z90.2 Acquired absence of lung [part of]; Z87.891 Personal history of nicotine dependence; Z95.0 Presence of cardiac pacemaker; Z79.02 Long term (current) use of antithrombotics/antiplatelets

== ENCOUNTER 2018-02-27 07:31 | Observation (INO) | payer MEDICARE ==
[2018-02-27 07:32] VITALS: PULSE 45
--- NOTE | 2018-02-27 08:04 | ED PDOC ---
Arrival/HPI - General Chief Complaint: Lower Extremity Problem/Injury Time Seen by Provider: 02/27/18 07:49 Historian: Patient - History of Present Illness Narrative History of Present Illness (Text): 02/27/18 07:59 82 year old female, whose past medical history includes hypertension, dementia, a pacemaker, anxiety, chronic bilateral lower extremity pain, anemia, COPD, anemia, and a nephrectomy, who presents to the Emergency department complaining of cough and shortness of breath x few months. Patient notes associated leg weakness. Patient states she didn't take any medications today. Patient denies any fever, chills, chest pain, nausea, vomiting, diarrhea, back pain, neck pain, headache, dizziness, or any other complaints. PMD: Dr. Farris Time/Duration: > month Symptom Onset: Gradual Symptom Course: Unchanged Activities at Onset: Light Context: Home Past Medical History - Provider Review Nursing Documentation Reviewed: Yes - Infectious Disease Hx of Infectious Diseases: None - Tetanus Immunization Tetanus Immunization: >10 years Ago - Cardiac Hx Hypertension: Yes - Pulmonary Hx Chronic Obstructive Pulmonary Disease (COPD): Yes - Neurological Hx Neurological Disorder: Yes Hx Dementia: Yes Hx Dizziness: Yes (SYNCOPE) - HEENT Hx HEENT Disorder: Yes (glasses) - Renal Hx Renal Disorder: Yes Hx Renal Cancer: (pt denies) Other/Comment: r nephrectomy - Endocrine/Metabolic Hx Endocrine Disorders: No - Hematological/Oncological Hx Blood Disorders: Yes Hx Anemia: Yes (blood transfusions) Hx Cancer: No - Integumentary Hx Dermatological Disorder: Yes - Musculoskeletal/Rheumatological Hx Musculoskeletal Disorders: Yes (sciatica) Hx Arthritis: Yes Hx Back Pain: Yes Hx Falls: Yes (past) Hx Unsteady Gait: Yes (cane) - Gastrointestinal Hx Gastrointestinal Disorders: Yes (rectal bleeding) Hx Gastroesophageal Reflux: Yes Hx Pancreatitis: Yes - Genitourinary/Gynecological Hx Genitourinary Disorders: No - Psychiatric Hx Psychophysiologic Disorder: Yes Hx Anxiety: Yes Hx Substance Use: No - Surgical History Hx Mastectomy: No Other/Comment: r nephrectomy - Anesthesia Hx Anesthesia: Yes Hx Anesthesia Reactions: No Hx Malignant Hyperthermia: No Family/Social History - Physician Review Nursing Documentation Reviewed: Yes Family/Social History: Unknown Family HX Smoking Status: Former Smoker Hx Alcohol Use: No Hx Substance Use: No Allergies/Home Meds Allergies/Adverse Reactions: Allergies No Known Allergies Allergy (Verified 09/24/17 12:30) Review of Systems - Physician Review All systems were reviewed & negative as marked: Yes - Review of Systems Constitutional: Normal Eyes: Normal ENT: Normal Respiratory: SOB, Cough Cardiovascular: Normal Gastrointestinal: Normal. absent: Abdominal Pain Genitourinary Female: Normal Musculoskeletal: Other (bilateral lower extremity weaknes). absent: Back Pain, Neck Pain Skin: Normal. absent: Rash Neurological: Normal. absent: Headache, Dizziness Endocrine: Normal Hemo/Lymphatic: Normal Psychiatric: Normal Physical Exam Vital Signs Reviewed: Yes Vital Signs Temp Pulse Resp BP Pulse Ox 02/27/18 07:49 98.8 F 69 18 119/62 100 Temperature: Afebrile Blood Pressure: Normal Pulse: Regular Respiratory Rate: Normal Appearance: Positive for: Well-Appearing, Non-Toxic, Comfortable Pain Distress: None Mental Status: Positive for: Alert and Oriented X 3 - Systems Exam Head: Present: Atraumatic, Normocephalic Pupils: Present: PERRL Extroacular Muscles: Present: EOMI Conjunctiva: Present: Normal Mouth: Present: Moist Mucous Membranes Neck: Present: Normal Range of Motion Respiratory/Chest: Present: Clear to Auscultation, Good Air Exchange. No: Respiratory Distress, Accessory Muscle Use Cardiovascular: Present: Regular Rate and Rhythm, Normal S1, S2. No: Murmurs Abdomen: No: Tenderness, Distention, Peritoneal Signs Back: Present: Normal Inspection Upper Extremity: Present: Normal Inspection. No: Cyanosis, Edema Lower Extremity: Present: Tenderness (tenderness to palpation bilateral lower extremities). No: Edema Neurological: Present: GCS=15, CN II-XII Intact, Speech Normal Skin: Present: Warm, Dry, Normal Color. No: Rashes Psychiatric: Present: Alert, Oriented x 3, Normal Insight, Normal Concentration Medical Decision Making ED Course and Treatment: 02/27/18 08:09 Impression: 82 year old female presents to the Emergency department complaining of cough and shortness of breath x few months. Plan: -- VBG -- LABS -- CXR -- Urine culture -- UA -- rapid flu -- Reassess and disposition Progress Notes: EKG reviewed, shows NSR 74. Paced. 02/27/18 11:[address] Farris, who is aware and agrees with plan. Accepts admission of pt for renal insufficiency, anemia, pain, and weakness. 02/27/18 11:53 Chest X-ray reviewed, shows: IMPRESSION: No active disease. No significant interval change compared to the prior examination(s). - Scribe Statement The provider has reviewed the documentation as recorded by the Scribnoemi Coreas All medical record entries made by the Scribe were at my direction and personally dictated by me. I have reviewed the chart and agree that the record accurately reflects my personal performance of the history, physical exam, medical decision making, and the department course for this patient. I have also personally directed, reviewed, and agree with the discharge instructions and disposition. Disposition/Present on Arrival - Present on Arrival Any Indicators Present on Arrival: No History of DVT/PE: No History of Uncontrolled Diabetes: No Urinary Catheter: No History of Decub. Ulcer: No History Surgical Site Infection Following: None - Disposition Have Diagnosis and Disposition been Completed?: Yes Diagnosis: Renal insufficiency, Anemia, Generalized weakness Disposition: HOSPITALIZED Disposition Time: 11:02 Patient Plan: Admission Condition: STABLE
[2018-02-27 08:33] LABS: PH,URINE 5.5 (4.7-8.0); URINE BILIRUBIN NEGATIVE (NEGATIVE); URINE BLOOD LARGE (NEGATIVE); URINE GLUCOSE (UA) NEGATIVE (NEGATIVE); URINE LEUKOCYTE ESTERASE SMALL Leu/uL (NEGATIVE); URINE PROTEIN NEGATIVE mg/dL (<30 mg/dL); URINE UROBILINOGEN 0.2 E.U./dL (<1 E.U./dL)
[2018-02-27 08:34] LABS: BASO # 0.03 K/mm3 (0.0-2.0); BASO % 0.4 % (0.0-3.0); EOS # 0.1 (0.0-0.7); EOS % 1.7 % (1.5-5.0); GRAN # 6.01 (1.4-6.5); GRAN % 73.6 % (50.0-68.0); LYMPH # 1.4 (1.2-3.4); LYMPH % 16.7 % (22.0-35.0); MEAN CELL VOLUME 75.1 fl (80.0-105.0); MEAN CORPUSCULAR HEMOGLOBIN 22.9 pg (25.0-35.0); MEAN CORPUSCULAR HGB CONC 30.4 g/dl (31.0-37.0); MEAN PLATELET VOLUME 9.4 fl (7.0-11.0); MONO # 0.6 (0.1-0.6); MONO % 7.6 % (1.0-6.0); RBC 3.5 10^6/uL (3.5-6.1); RED CELL DISTRIBUTION WIDTH 20.5 % (11.5-14.5); WHITE BLOOD COUNT 8.2 10^3/uL (4.5-11.0)
[2018-02-27 08:36] LABS: URINE APPEARANCE CLEAR (CLEAR); URINE COLOR YELLOW (YELLOW)
[2018-02-27 08:37] LABS: VENOUS BLOOD GAS BASE EXCESS -3.8 mmol/L (0.0-2.0); VENOUS BLOOD GAS PO2 58 mm/Hg (30-55); VENOUS BLOOD PH 7.38 (7.32-7.43)
[2018-02-27 08:40] LABS: URINE AMORPHOUS SEDIMENT TRACE /hpf; URINE BACTERIA TRACE /hpf
[2018-02-27 08:45] LABS: CALCIUM 9.5 mg/dL (8.4-10.5)
[2018-02-27 08:56] LABS: TROPONIN I 0.06 ng/mL
--- NOTE | 2018-02-27 11:41 | RAD ---
Date of service: 02/27/2018 HISTORY: Cough. COMPARISON: 01/28/2018. FINDINGS: LUNGS: No active pulmonary disease. PLEURA: No significant pleural effusion identified, no pneumothorax apparent. CARDIOVASCULAR: Atherosclerotic calcifications identified primarily aortic arch. Position/ configuration of pacemaker No radiographic findings to suggest acute or significant cardiovascular disease. OSSEOUS STRUCTURES: No significant abnormalities. VISUALIZED UPPER ABDOMEN: Normal. OTHER FINDINGS: None. IMPRESSION: No active disease. No significant interval change compared to the prior examination(s).
[2018-02-27] MEDS ORDERED: Iron Sucrose 100 mg/5 ml Inj IVP SCH (12:15)
[2018-02-27] MEDS ORDERED: Darbepoetin Alfa 60 mcg/ml Inj SC SCH (13:00)
--- NOTE | 2018-02-27 13:07 | CP.PCM.CON ---
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 maintain hemodynamic stable. may stop norvasc if BP remains on low side pt on meds to control A fib rate anemia management: PRBC as needed, added iron and MVI. dose aransep 60 mcg 02/27/18. check iron indices check vit D, iPTH in AM continue with statins. added oral sodium bicarb 650 mg bid GI following monitor I/O, daily weights and renal function while in hospital Dose meds/antibiotics for reduced GFR. Avoid fleets enema/magnesium based laxatives. Avoid nephrotoxins/NSAIDs/IV iodinated contrast (unless emergently) Further work up as per primary team Thanks for allowing me to participate in care of your patient. will follow with you. Please call if any Qs. had d/w team Dr Jt Lemon Office: [phone] CC: SOB, weakness Reason for consult: CKD and PATRICIA HPI: Pt is a 82 y/o F with hx of hypertension (20 years) , renal cell cancer s/p unilateral total nephrectomy, CKD stage 4 with baseline cr 2 with intermittent and frequent episodes of PATRICIA, chronic anemia, A fib, bradycardia s/p PPM presented with c/o SOB, cough leg weakness renal consult for further management of PATRICIA/CKD. pt feels better. improved SOB and leg pain now. ROS: denies CP/SOB at present. denies nausea/vomiting/pain abdomen denies urine complaints. all other negative except as in HPI. feels better. limited from her due to dementia Physical Examination: General Appearance: Comfortable, in no acute respiratory distress, co-operative Vitals reviewed and noted as below Head; Atraumatic, normocephalic ENT: no ulcers no thrush. Tongue is midline. Oropharynx: no rash or ulcers. EYES: Pupils are equal, round and reactive to light accommodation. Eye muscles and extraocular movement intact. Sclera is anicteric. Neck; supple no lymphadenopathy, no thyromegaly or bruit Lungs: Normal respiratory rate/effort. Breath sounds bilateral equal and clear Heart: normal rate. s1s2 normal. No rub or gallop. has PPM Extremities: no edema. No varicose veins Neurological: Patient is alert, awake and has dementia No other focal deficit. Strength bilateral appropriate and equal Skin: Warm and dry. Normal turgor. No rash. Palpitation: Normal elasticity for age Abdomen: Abdomen is soft. Bowel sounds +. There is no abdominal tenderness, no guarding/rigidity or organomegaly Psych: limited insight and has normal affect/mood MSK: no joint tenderness or swelling. Digits and nails normal, no deformity : kidney or bladder not palpable Labs/imaging/EKG reviewed. Past medical history, past surgical history,social history, allergy reviewed and noted as below FAMILy HX; no hx of CKD. non contributory work up: CT 2018: s/p Rt nephrectomy, left kidney unremarkable Past Patient History - Infectious Disease Hx of Infectious Diseases: None - Tetanus Immunizations Tetanus Immunization: >10 years Ago - Past Medical History & Family History Past Medical History?: Yes - Past Social History Smoking Status: Former Smoker - CARDIAC Hx Hypertension: Yes - PULMONARY Hx Chronic Obstructive Pulmonary Disease (COPD): Yes - NEUROLOGICAL Hx Neurological Disorder: Yes Hx Dementia: Yes Hx Dizziness: Yes (SYNCOPE) - HEENT Hx HEENT Problems: Yes (glasses) - RENAL Hx Chronic Kidney Disease: Yes Hx Renal (Kidney) Cancer: (pt denies) Other/Comment: r nephrectomy - ENDOCRINE/METABOLIC Hx Endocrine Disorders: No - HEMATOLOGICAL/ONCOLOGICAL Hx Blood Disorders: Yes Hx Anemia: Yes (blood transfusions) Hx Cancer: No - INTEGUMENTARY Hx Dermatological Problems: Yes - MUSCULOSKELETAL/RHEUMATOLOGICAL Hx Musculoskeletal Disorders: Yes (sciatica) Hx Arthritis: Yes Hx Back Pain: Yes Hx Falls: Yes (past) Hx Unsteady Gait: Yes (cane) - GASTROINTESTINAL Hx Gastrointestinal Disorders: Yes (rectal bleeding) Hx Gastroesophageal Reflux: Yes Hx Pancreatitis: Yes - GENITOURINARY/GYNECOLOGICAL Hx Genitourinary Disorders: No - PSYCHIATRIC Hx Psychophysiologic Disorder: Yes Hx Anxiety: Yes Hx Substance Use: No - SURGICAL HISTORY Hx Mastectomy: No Other/Comment: r nephrectomy - ANESTHESIA Hx Anesthesia: Yes Hx Anesthesia Reactions: No Hx Malignant Hyperthermia: No Meds Allergies/Adverse Reactions: Allergies Allergy/AdvReac Type Severity Reaction Status Date / Time No Known Allergies Allergy Verified 09/24/17 12:30 - Medications Medications: Current Medications Alprazolam (Xanax) 0.25 mg PO TID PRN; Protocol PRN Reason: Anxiety Stop: 03/06/18 11:28 Amlodipine Besylate (Norvasc) 5 mg PO DAILY [facility] Atorvastatin Calcium (Lipitor) 20 mg PO DAILY [facility] Darbepoetin Xavier (Aranesp) 60 mcg SC QWK [facility] Diltiazem HCl (Cardizem Cd) 180 mg PO DAILY [facility] Donepezil HCl (Aricept) 10 mg PO HS [facility] Furosemide (Lasix) 40 mg IVP ONCE ONE Stop: 02/27/18 14:30 Iron Sucrose 100 mg/ Sodium (Chloride) 105 mls @ 210 mls/hr IVPB DAILY [facility] Stop: 03/09/18 10:01 Iron Sucrose 100 mg/ Sodium (Chloride) 105 mls @ 210 mls/hr IVPB .EXTRA DOSE ONE Stop: 02/27/18 13:14 Metoprolol Tartrate (Lopressor) 25 mg PO BID [facility] Morphine Sulfate (Morphine) 1 mg IVP Q3H PRN PRN Reason: Pain, moderate (4-7) Pantoprazole Sodium (Protonix Inj) 40 mg IVP DAILY [facility] Last Admin: 02/27/18 12:30 Dose: 40 mg Polyethylene Glycol (Miralax) 17 gm PO DAILY [facility] Sodium Bicarbonate (Sodium Bicarbonate Tab) 650 mg PO BID [facility] Vitamin B Complex/Vit C/Folic Acid (Nephro-Haider) 1 tab PO 0800 [facility] Results - Vital Signs Recent Vital Signs: Last Vital Signs Temp 98.8 F 02/27/18 07:49 Pulse 65 02/27/18 11:28 Resp 18 02/27/18 11:28 BP 118/61 02/27/18 11:28 Pulse Ox 100 02/27/18 11:28 - Labs Result Diagrams: 02/27/18 08:00 02/27/18 08:00 Labs: Laboratory Results - last 24 hr 02/27/18 02/27/18 02/27/18 08:00 08:00 08:00 WBC 8.2 RBC 3.50 Hgb 8.0 L D Hct 26.3 L MCV 75.1 L D MCH 22.9 L MCHC 30.4 L RDW 20.5 H Plt Count 385 MPV 9.4 Gran % 73.6 H Lymph % (Auto) 16.7 L [place] % (Auto) 7.6 H Eos % (Auto) 1.7 Baso % (Auto) 0.4 Gran # 6.01 Lymph # (Auto) 1.4 [place] # (Auto) 0.6 Eos # (Auto) 0.1 Baso # (Auto) 0.03 pO2 58 H VBG pH 7.38 VBG pCO2 35.0 L VBG HCO3 20.7 L VBG Total CO2 21.8 L VBG O2 Sat (Calc) 93.1 H VBG Base Excess -3.8 L VBG Potassium 4.4 Sodium 141.0 141 Chloride 111.0 H 112 H Glucose 87 Lactate 0.8 FiO2 21.0 Potassium 4.6 Carbon Dioxide 21 Anion Gap 13 BUN 48 H Creatinine 2.0 H Est GFR ( Amer) 29 Est GFR (Non-Af Amer) 24 Random Glucose 91 Calcium 9.5 Magnesium 2.1 Lactate Dehydrogenase 541 Total Creatine Kinase 118 Troponin I 0.06 D NT-Pro-B Natriuret Pep 1270 H Venous Blood Potassium 4.4 Urine Color Urine Appearance Urine pH Ur Specific Herod Urine Protein Urine Glucose (UA) Urine Ketones Urine Blood Urine Nitrate Urine Bilirubin Urine Urobilinogen Ur Leukocyte Esterase Urine RBC Urine WBC Ur Epithelial Cells Amorphous Sediment Urine Bacteria Influenza Typ A,B (EIA) Blood Type Antibody Screen Crossmatch BBK History Checked 02/27/18 02/27/18 02/27/18 08:00 09:15 11:50 WBC RBC Hgb Hct MCV MCH MCHC RDW Plt Count MPV Gran % Lymph % (Auto) [place] % (Auto) Eos % (Auto) Baso % (Auto) Gran # Lymph # (Auto) [place] # (Auto) Eos # (Auto) Baso # (Auto) pO2 VBG pH VBG pCO2 VBG HCO3 VBG Total CO2 VBG O2 Sat (Calc) VBG Base Excess VBG Potassium Sodium Chloride Glucose Lactate FiO2 Potassium Carbon Dioxide Anion Gap BUN Creatinine Est GFR ( Amer) Est GFR (Non-Af Amer) Random Glucose Calcium Magnesium Lactate Dehydrogenase Total Creatine Kinase Troponin I NT-Pro-B Natriuret Pep Venous Blood Potassium Urine Color Yellow Urine Appearance Clear Urine pH 5.5 Ur Specific Herod 1.025 Urine Protein Negative Urine Glucose (UA) Negative Urine Ketones Negative Urine Blood Large H Urine Nitrate Negative Urine Bilirubin Negative Urine Urobilinogen 0.2 Ur Leukocyte Esterase Small H Urine RBC 10 - 15 H Urine WBC 1 - 3 Ur Epithelial Cells 4 - 5 Amorphous Sediment Trace Urine Bacteria Trace Influenza Typ A,B (EIA) Negative for flu a/b Blood Type AB POSITIVE Antibody Screen Negative Crossmatch See Detail BBK History Checked Patient has bt
--- NOTE | 2018-02-27 14:22 | HP ---
DATE OF EXAM: 02/27/2018 HISTORY OF PRESENT ILLNESS: I was called to the emergency room to see her. She comes in not feeling well. She is coughing, shortness of breath for a few months. If she is not true, I do house calls on her to weakness. She is feeling a little lethargic lately, overall just not herself. She is a 82-year-old female who I do house calls on presents with history of hypertension, dementia, pacemaker, anxiety, chronic bilateral lower extremity pain, anemia, COPD, history of nephrectomy, also just weak and lethargic, occasional shortness of breath. PAST MEDICAL HISTORY: COPD, dementia, syncope. She wears glasses. She had a right nephrectomy. She had blood transfusions in the past. She has sciatica, arthritis, back pain, fall. She uses a cane, history of rectal bleeding, reflux, pancreatitis, anxiety, right nephrectomy. FAMILY HISTORY: Unknown family history. SOCIAL HISTORY: Former smoker. No alcohol or drugs. ALLERGIES: NO KNOWN DRUG ALLERGIES. MEDICATIONS: She is on Aricept, Lipitor, Lopressor, MiraLax, Norvasc, Protonix, Xanax at home. REVIEW OF SYSTEMS: She is little bit weak, little lethargic. No acute vision changes or hearing changes. No sore throat. Well appearing, resting in bed. No sore throat. No chest pain or palpitations. Little shortness of breath. No cough. Abdomen: No nausea, vomiting, constipation, diarrhea. Legs are painful, low back pain. PHYSICAL EXAMINATION: VITAL SIGNS: She has a 98.8 temperature, 69 pulse, 18 respiratory rate, 119/62 blood pressure and 100% O2 sat. HEENT: Head is atraumatic, normocephalic. Extraocular muscles are intact. Pupils react to light and accommodation. Throat is moist. NECK: Supple. HEART: Regular rate. Normal S1, S2. LUNGS: Decreased breath sounds but clear to auscultation with poor inspiration. ABDOMEN: Soft, nontender. Positive bowel sounds. No guarding, no rebound, no CVA tenderness. EXTREMITIES: Have no edema. There is some palpable tenderness bilateral lower extremities, could be arthritis. GCS is 15. NEUROLOGIC: Cranial nerves II-XII grossly intact. Speech is normal. Alert and oriented x3 with a little help. SKIN: Warm and dry. No apparent rashes or ulcers. LABORATORY DATA: She had multiple tests done. She has a 8.2 white count, 8 hemoglobin, which is low, used to be over 10, 26.3 hematocrit with 385 platelets. 141 sodium, potassium 4.6, BUN 40, creatinine 2 a little high for her, GFR is 24, sugar is 91, calcium is 9.5, magnesium 2.1, lactate dehydrogenase is 541. Troponin I is 0.06. BNP is high at 1270 urine is small, negative for the flu. She is going to be transfused 2 units of packed red blood cells. I have a consult with GI and renal and she is weak. She is on physical therapy. She might need MAC versus TCU. We will see how she does. We will check her labs tomorrow. Physical therapy, out of bed to chair n.p.o. until GI sees her. Checking her stools, and we are transfusing her. She might need IV fluids. I will leave that to the renal doctor. Marco Farris DO MTDD
[2018-02-27] MEDS: Morphine 2 mg/ml ISec IVP PRN ×2 (17:21→20:34)
[2018-02-28] MEDS: Morphine 2 mg/ml ISec IVP PRN ×2 (01:12→16:39)
[2018-02-28 07:35] LABS: MEAN CELL VOLUME 77.7 fl (80.0-105.0); MEAN CORPUSCULAR HEMOGLOBIN 24.9 pg (25.0-35.0); MEAN CORPUSCULAR HGB CONC 32.1 g/dl (31.0-37.0); MEAN PLATELET VOLUME 9.5 fl (7.0-11.0); RBC 4.85 10^6/uL (3.5-6.1); RED CELL DISTRIBUTION WIDTH 19.1 % (11.5-14.5)
[2018-02-28 07:39] LABS: HEMOGLOBIN 12.1 g/dL (12.0-16.0)
[2018-02-28] MEDS ORDERED: Multivitamin Vitamin B Complex (Nephro-Vite) Tab PO SCH (08:00)
[2018-02-28 08:03] LABS: ALB/GLOB RATIO 0.9 (1.1-1.8); ALBUMIN 3.7 g/dL (3.0-4.8); CALCIUM 9.8 mg/dL (8.4-10.5)
--- NOTE | 2018-02-28 08:05 | CP.PCM.CON ---
<Rush Ford - Last Filed: 02/28/18 08:06> History of Present Illness - History of Present Illness History of Present Illness: PGY-4 GI Fellow Consult Note 82F, hx of multiple blood transfusions for recurrent anemia likely due to AVMs and h/o Eliquis in addition to chronic disease and CKD presenting with generalized weakness, fatigue and leg weakness/pain. She states symptoms had been ongoing for the last several weeks to months. Denied any precipitating or alleviating factors. Denied any CP, dysphagia, weight loss, emesis, melena nor hematochezia. In the ED, she was found to have Hgb of 8 from about 9-10. She was given 2 units PRBCs, repeat Hgb pending, and she states she feels significantly better post-transfusion. Previously had Colonoscopy 08/22 with APC of AVM. EGD 08/22 showed clean base gastric ulcers. 12pt ROS completed and negative except for above. PMHx- chronic renal insufficiency, renal cancer/mass s/p R nephrectomy, anxiety, chronic bilateral lower extremity pain, COPD, anemia, GI bleed, lung cancer s/p lobectomy, hypercholesterolemia, hypertension, ckd, and Afib on OAC eliquis PSHx- nephrectomy, PPM Meds: reviewed in chart FMHx - unremarkable SocHx - No alcohol or tobacco use. All: NKDA Past Patient History - Infectious Disease Hx of Infectious Diseases: None - Tetanus Immunizations Tetanus Immunization: >10 years Ago - Past Medical History & Family History Past Medical History?: Yes - Past Social History Smoking Status: Never Smoked - CARDIAC Hx Congestive Heart Failure: Yes Hx Hypertension: Yes Hx Pacemaker: Yes - PULMONARY Hx Chronic Obstructive Pulmonary Disease (COPD): Yes - NEUROLOGICAL Hx Neurological Disorder: Yes Hx Dementia: Yes Hx Dizziness: Yes (SYNCOPE) - HEENT Hx HEENT Problems: Yes (glasses) - RENAL Hx Chronic Kidney Disease: Yes Hx Renal (Kidney) Cancer: (pt denies) Other/Comment: r nephrectomy - ENDOCRINE/METABOLIC Hx Endocrine Disorders: No - HEMATOLOGICAL/ONCOLOGICAL Hx Blood Disorders: Yes Hx Anemia: Yes (blood transfusions) Hx Cancer: No - INTEGUMENTARY Hx Dermatological Problems: Yes - MUSCULOSKELETAL/RHEUMATOLOGICAL Hx Musculoskeletal Disorders: Yes (sciatica) Hx Arthritis: Yes Hx Back Pain: Yes Hx Falls: Yes (past) Hx Unsteady Gait: Yes (cane) - GASTROINTESTINAL Hx Gastrointestinal Disorders: Yes (rectal bleeding) Hx Gastroesophageal Reflux: Yes Hx Pancreatitis: Yes - GENITOURINARY/GYNECOLOGICAL Hx Genitourinary Disorders: No - PSYCHIATRIC Hx Psychophysiologic Disorder: Yes Hx Anxiety: Yes - SURGICAL HISTORY Hx Mastectomy: No Other/Comment: r nephrectomy - ANESTHESIA Hx Anesthesia: Yes Hx Anesthesia Reactions: No Hx Malignant Hyperthermia: No Meds Allergies/Adverse Reactions: Allergies Allergy/AdvReac Type Severity Reaction Status Date / Time No Known Allergies Allergy Verified 09/24/17 12:30 - Medications Medications: Current Medications Alprazolam (Xanax) 0.25 mg PO TID PRN; Protocol PRN Reason: Anxiety Stop: 03/06/18 11:28 Amlodipine Besylate (Norvasc) 5 mg PO DAILY [facility] Atorvastatin Calcium (Lipitor) 20 mg PO DAILY [facility] Darbepoetin Xavier (Aranesp) 60 mcg SC QWK [facility] Last Admin: 02/27/18 14:01 Dose: 60 mcg Diltiazem HCl (Cardizem Cd) 180 mg PO DAILY [facility] Donepezil HCl (Aricept) 10 mg PO HS [facility] Last Admin: 02/27/18 21:15 Dose: 10 mg Iron Sucrose 100 mg/ Sodium (Chloride) 105 mls @ 210 mls/hr IVPB DAILY [facility] Stop: 03/09/18 10:01 Metoprolol Tartrate (Lopressor) 25 mg PO BID [facility] Last Admin: 02/27/18 17:22 Dose: 25 mg Morphine Sulfate (Morphine) 1 mg IVP Q3H PRN PRN Reason: Pain, moderate (4-7) Last Admin: 02/28/18 01:12 Dose: 1 mg Pantoprazole Sodium (Protonix Inj) 40 mg IVP DAILY [facility] Last Admin: 02/27/18 12:30 Dose: 40 mg Polyethylene Glycol (Miralax) 17 gm PO DAILY [facility] Sodium Bicarbonate (Sodium Bicarbonate Tab) 650 mg PO BID [facility] Last Admin: 02/27/18 17:22 Dose: 650 mg Vitamin B Complex/Vit C/Folic Acid (Nephro-Haider) 1 tab PO 0800 [facility] Physical Exam - Constitutional Appears: Well, No Acute Distress - Head Exam Head Exam: ATRAUMATIC, NORMAL INSPECTION - Eye Exam Eye Exam: EOMI. absent: Scleral icterus - ENT Exam ENT Exam: Mucous Membranes Moist. absent: Mucous Membranes Dry - Respiratory Exam Respiratory Exam: Clear to Auscultation Bilateral, NORMAL BREATHING PATTERN. absent: Accessory Muscle Use - Cardiovascular Exam Cardiovascular Exam: REGULAR RHYTHM, RRR - GI/Abdominal Exam GI & Abdominal Exam: Normal Bowel Sounds, Soft. absent: Bruit, Diminished Bowel Sounds, Distended, Firm, Guarding, Hernia, Mass, Organomegaly, Pulsatile Mass, Rebound, Rigid, Tenderness - Rectal Exam Rectal Exam: Deferred Additional comments: pt decline rectal exam - Extremities Exam Extremities exam: Positive for: normal capillary refill, normal inspection - Neurological Exam Neurological exam: Alert, CN II-XII Intact - Psychiatric Exam Psychiatric exam: Normal Affect, Normal Mood - Skin Skin Exam: Dry, Warm Results - Vital Signs Recent Vital Signs: Last Vital Signs Temp 98.0 F 02/28/18 00:57 Pulse 68 02/28/18 00:57 Resp 17 02/28/18 00:57 BP 147/85 02/28/18 00:57 Pulse Ox 100 02/27/18 22:00 - Labs Result Diagrams: 02/28/18 07:15 02/28/18 07:15 Labs: Laboratory Results - last 24 hr 02/27/18 02/27/18 02/27/18 08:00 08:00 08:00 WBC 8.2 RBC 3.50 Hgb 8.0 L D Hct 26.3 L MCV 75.1 L D MCH 22.9 L MCHC 30.4 L RDW 20.5 H Plt Count 385 MPV 9.4 Gran % 73.6 H Lymph % (Auto) 16.7 L Buchanan % (Auto) 7.6 H Eos % (Auto) 1.7 Baso % (Auto) 0.4 Gran # 6.01 Lymph # (Auto) 1.4 Buchanan # (Auto) 0.6 Eos # (Auto) 0.1 Baso # (Auto) 0.03 pO2 58 H VBG pH 7.38 VBG pCO2 35.0 L VBG HCO3 20.7 L VBG Total CO2 21.8 L VBG O2 Sat (Calc) 93.1 H VBG Base Excess -3.8 L VBG Potassium 4.4 Sodium 141.0 141 Chloride 111.0 H 112 H Glucose 87 Lactate 0.8 FiO2 21.0 Potassium 4.6 Carbon Dioxide 21 Anion Gap 13 BUN 48 H Creatinine 2.0 H Est GFR ( Amer) 29 Est GFR (Non-Af Amer) 24 Random Glucose 91 Calcium 9.5 Magnesium 2.1 Iron Lactate Dehydrogenase 541 Total Creatine Kinase 118 Troponin I 0.06 D NT-Pro-B Natriuret Pep 1270 H Venous Blood Potassium 4.4 Urine Color Urine Appearance Urine pH Ur Specific [place] Urine Protein Urine Glucose (UA) Urine Ketones Urine Blood Urine Nitrate Urine Bilirubin Urine Urobilinogen Ur Leukocyte Esterase Urine RBC Urine WBC Ur Epithelial Cells Amorphous Sediment Urine Bacteria Influenza Typ A,B (EIA) Blood Type Antibody Screen Crossmatch BBK History Checked 02/27/18 02/27/18 02/27/18 08:00 09:15 11:50 WBC RBC Hgb Hct MCV MCH MCHC RDW Plt Count MPV Gran % Lymph % (Auto) [place]anan % (Auto) Eos % (Auto) Baso % (Auto) Gran # Lymph # (Auto) [place]anan # (Auto) Eos # (Auto) Baso # (Auto) pO2 VBG pH VBG pCO2 VBG HCO3 VBG Total CO2 VBG O2 Sat (Calc) VBG Base Excess VBG Potassium Sodium Chloride Glucose Lactate FiO2 Potassium Carbon Dioxide Anion Gap BUN Creatinine Est GFR ( Amer) Est GFR (Non-Af Amer) Random Glucose Calcium Magnesium Iron Lactate Dehydrogenase Total Creatine Kinase Troponin I NT-Pro-B Natriuret Pep Venous Blood Potassium Urine Color Yellow Urine Appearance Clear Urine pH 5.5 Ur Specific [place] 1.025 Urine Protein Negative Urine Glucose (UA) Negative Urine Ketones Negative Urine Blood Large H Urine Nitrate Negative Urine Bilirubin Negative Urine Urobilinogen 0.2 Ur Leukocyte Esterase Small H Urine RBC 10 - 15 H Urine WBC 1 - 3 Ur Epithelial Cells 4 - 5 Amorphous Sediment Trace Urine Bacteria Trace Influenza Typ A,B (EIA) Negative for flu a/b Blood Type AB POSITIVE Antibody Screen Negative Crossmatch See Detail BBK History Checked Patient has bt 02/28/18 02/28/18 07:15 07:15 WBC 10.0 D RBC 4.85 Hgb 12.1 D Hct 37.7 MCV 77.7 L MCH 24.9 L MCHC 32.1 RDW 19.1 H Plt Count 326 MPV 9.5 Gran % Lymph % (Auto) Buchanan % (Auto) Eos % (Auto) Baso % (Auto) Gran # Lymph # (Auto) [place]anan # (Auto) Eos # (Auto) Baso # (Auto) pO2 VBG pH VBG pCO2 VBG HCO3 VBG Total CO2 VBG O2 Sat (Calc) VBG Base Excess VBG Potassium Sodium Chloride Glucose Lactate FiO2 Potassium Carbon Dioxide Anion Gap BUN Creatinine Est GFR ( Amer) Est GFR (Non-Af Amer) Random Glucose Calcium Magnesium Iron 429 H Lactate Dehydrogenase Total Creatine Kinase Troponin I NT-Pro-B Natriuret Pep Venous Blood Potassium Urine Color Urine Appearance Urine pH Ur Specific [place] Urine Protein Urine Glucose (UA) Urine Ketones Urine Blood Urine Nitrate Urine Bilirubin Urine Urobilinogen Ur Leukocyte Esterase Urine RBC Urine WBC Ur Epithelial Cells Amorphous Sediment Urine Bacteria Influenza Typ A,B (EIA) Blood Type Antibody Screen Crossmatch BBK History Checked Assessment & Plan - Assessment and Plan (Free Text) Assessment: 82 yo BF with CKD, Afib, h/o AVMs and Gastric Ulcer presenting with symptomatic anemia. # Acute on Chronic Microcytic Anemia: Hgb 8 from ~9-10. Multifactorial from CKD , AVMs, intermittent AC use, etc. No signs of active GI bleed. Vitals stable and pt feeling better post transfusion. Repeat Hgb pending. Plan: - F/u Hgb post transfusion - If responds appropriately, can advance diet - EPO and transfusion per renal and primary - Pt can f/u as outpatient for EGD+Colonscopy with Dr. Quintana Pt seen and examined with Dr. Quintana; please see attestation for further recs/changes. Rush Ford, PGY-4 <Jt Quintana - Last Filed: 02/28/18 08:20> Meds - Medications Medications: Current Medications Alprazolam (Xanax) 0.25 mg PO TID PRN; Protocol PRN Reason: Anxiety Stop: 03/06/18 11:28 Amlodipine Besylate (Norvasc) 5 mg PO DAILY [facility] Atorvastatin Calcium (Lipitor) 20 mg PO DAILY [facility] Darbepoetin Xavier (Aranesp) 60 mcg SC QWK [facility] Last Admin: 02/27/18 14:01 Dose: 60 mcg Diltiazem HCl (Cardizem Cd) 180 mg PO DAILY [facility] Donepezil HCl (Aricept) 10 mg PO HS [facility] Last Admin: 02/27/18 21:15 Dose: 10 mg Iron Sucrose 100 mg/ Sodium (Chloride) 105 mls @ 210 mls/hr IVPB DAILY [facility] Stop: 03/09/18 10:01 Metoprolol Tartrate (Lopressor) 25 mg PO BID [facility] Last Admin: 02/27/18 17:22 Dose: 25 mg Morphine Sulfate (Morphine) 1 mg IVP Q3H PRN PRN Reason: Pain, moderate (4-7) Last Admin: 02/28/18 01:12 Dose: 1 mg Pantoprazole Sodium (Protonix Inj) 40 mg IVP DAILY [facility] Last Admin: 02/27/18 12:30 Dose: 40 mg Polyethylene Glycol (Miralax) 17 gm PO DAILY [facility] Sodium Bicarbonate (Sodium Bicarbonate Tab) 650 mg PO BID [facility] Last Admin: 02/27/18 17:22 Dose: 650 mg Vitamin B Complex/Vit C/Folic Acid (Nephro-Haider) 1 tab PO 0800 [facility] Results - Vital Signs Recent Vital Signs: Last Vital Signs Temp 98.0 F 02/28/18 00:57 Pulse 68 02/28/18 00:57 Resp 17 02/28/18 00:57 BP 147/85 02/28/18 00:57 Pulse Ox 100 02/27/18 22:00 - Labs Result Diagrams: 02/28/18 07:15 02/28/18 07:15 Labs: Laboratory Results - last 24 hr 02/27/18 02/27/18 02/27/18 08:00 08:00 08:00 WBC 8.2 RBC 3.50 Hgb 8.0 L D Hct 26.3 L MCV 75.1 L D MCH 22.9 L MCHC 30.4 L RDW 20.5 H Plt Count 385 MPV 9.4 Gran % 73.6 H Lymph % (Auto) 16.7 L Buchanan % (Auto) 7.6 H Eos % (Auto) 1.7 Baso % (Auto) 0.4 Gran # 6.01 Lymph # (Auto) 1.4 Buchanan # (Auto) 0.6 Eos # (Auto) 0.1 Baso # (Auto) 0.03 pO2 58 H VBG pH 7.38 VBG pCO2 35.0 L VBG HCO3 20.7 L VBG Total CO2 21.8 L VBG O2 Sat (Calc) 93.1 H VBG Base Excess -3.8 L VBG Potassium 4.4 Sodium 141.0 141 Chloride 111.0 H 112 H Glucose 87 Lactate 0.8 FiO2 21.0 Potassium 4.6 Carbon Dioxide 21 Anion Gap 13 BUN 48 H Creatinine 2.0 H Est GFR ( Amer) 29 Est GFR (Non-Af Amer) 24 Random Glucose 91 Calcium 9.5 Magnesium 2.1 Iron TIBC % Saturation Total Bilirubin AST ALT Alkaline Phosphatase Lactate Dehydrogenase 541 Total Creatine Kinase 118 Troponin I 0.06 D NT-Pro-B Natriuret Pep 1270 H Total Protein Albumin Globulin Albumin/Globulin Ratio Venous Blood Potassium 4.4 Urine Color Urine Appearance Urine pH Ur Specific [place] Urine Protein Urine Glucose (UA) Urine Ketones Urine Blood Urine Nitrate Urine Bilirubin Urine Urobilinogen Ur Leukocyte Esterase Urine RBC Urine WBC Ur Epithelial Cells Amorphous Sediment Urine Bacteria Influenza Typ A,B (EIA) Blood Type Antibody Screen Crossmatch BBK History Checked 02/27/18 02/27/18 02/27/18 08:00 09:15 11:50 WBC RBC Hgb Hct MCV MCH MCHC RDW Plt Count MPV Gran % Lymph % (Auto) [place] % (Auto) Eos % (Auto) Baso % (Auto) Gran # Lymph # (Auto) [place] # (Auto) Eos # (Auto) Baso # (Auto) pO2 VBG pH VBG pCO2 VBG HCO3 VBG Total CO2 VBG O2 Sat (Calc) VBG Base Excess VBG Potassium Sodium Chloride Glucose Lactate FiO2 Potassium Carbon Dioxide Anion Gap BUN Creatinine Est GFR ( Amer) Est GFR (Non-Af Amer) Random Glucose Calcium Magnesium Iron TIBC % Saturation Total Bilirubin AST ALT Alkaline Phosphatase Lactate Dehydrogenase Total Creatine Kinase Troponin I NT-Pro-B Natriuret Pep Total Protein Albumin Globulin Albumin/Globulin Ratio Venous Blood Potassium Urine Color Yellow Urine Appearance Clear Urine pH 5.5 Ur Specific [place] 1.025 Urine Protein Negative Urine Glucose (UA) Negative Urine Ketones Negative Urine Blood Large H Urine Nitrate Negative Urine Bilirubin Negative Urine Urobilinogen 0.2 Ur Leukocyte Esterase Small H Urine RBC 10 - 15 H Urine WBC 1 - 3 Ur Epithelial Cells 4 - 5 Amorphous Sediment Trace Urine Bacteria Trace Influenza Typ A,B (EIA) Negative for flu a/b Blood Type AB POSITIVE Antibody Screen Negative Crossmatch See Detail BBK History Checked Patient has bt 02/28/18 02/28/18 02/28/18 07:15 07:15 07:15 WBC 10.0 D RBC 4.85 Hgb 12.1 D Hct 37.7 MCV 77.7 L MCH 24.9 L MCHC 32.1 RDW 19.1 H Plt Count 326 MPV 9.5 Gran % Lymph % (Auto) [place] % (Auto) Eos % (Auto) Baso % (Auto) Gran # Lymph # (Auto) [place] # (Auto) Eos # (Auto) Baso # (Auto) pO2 VBG pH VBG pCO2 VBG HCO3 VBG Total CO2 VBG O2 Sat (Calc) VBG Base Excess VBG Potassium Sodium 143 Chloride 110 H Glucose Lactate FiO2 Potassium 4.6 Carbon Dioxide 21 Anion Gap 16 BUN 41 H Creatinine 1.8 H Est GFR ( Amer) 33 Est GFR (Non-Af Amer) 27 Random Glucose 74 Calcium 9.8 Magnesium Iron 429 H TIBC 400 % Saturation 107 H Total Bilirubin 1.2 AST 21 ALT 19 Alkaline Phosphatase 136 H D Lactate Dehydrogenase Total Creatine Kinase Troponin I NT-Pro-B Natriuret Pep Total Protein 8.0 Albumin 3.7 Globulin 4.3 Albumin/Globulin Ratio 0.9 L Venous Blood Potassium Urine Color Urine Appearance Urine pH Ur Specific [place] Urine Protein Urine Glucose (UA) Urine Ketones Urine Blood Urine Nitrate Urine Bilirubin Urine Urobilinogen Ur Leukocyte Esterase Urine RBC Urine WBC Ur Epithelial Cells Amorphous Sediment Urine Bacteria Influenza Typ A,B (EIA) Blood Type Antibody Screen Crossmatch BBK History Checked Attending/Attestation - Attestation I have personally seen and examined this patient.: Yes I have fully participated in the care of the patient.: Yes I have reviewed all pertinent clinical information: Yes Notes (Text): 02/28/18 08:16 I have seen and examined patient with GI fellow. Agree with above documentation with the following additions. In brief, this is an 82 year old female with history of CKD, chronic anemia, COPD, atrial fibrillation on eliquis, renal cancer s/p nephrectomy, lung cancer s/p partial lobectomy who presents to hospital with progressive fatigue and dyspnea on exertion over the past 3 weeks. She reports increasing fatigue with simple daily activities during this time period along with bilateral lower extremity pain on ambulation. She otherwise denies abdominal pain, nausea, vomiting, fever/chills, weight loss, melena, or rectal bleeding. She had an EGD/colonoscopy in August 2016 which showed gastric u lcer and colonic AVMs. CKD Chronic anemia, fatigue COPD Atrial fibrillation History of renal cell and lung cancer - Diet as tolerated - H/H stable, s/p PRBC transfusion, continue to monitor - Continue with PPI therapy - Patient without any features of overt bleeding, no indication for GI intervent ion at this time. She would benefit from elective outpatient endoscopic evaluation and follow up. Will sign off case, please reconsult as necessary, thank you.
[2018-02-28 08:32] VITALS: BP 130/71; RESP 18; TEMP 98.5; O2SAT 99
--- NOTE | 2018-02-28 09:01 | CARD ---
APPROVED REPORT Date of service: 02/27/2018 EKG Measurement Heart [id number] <Conclusion> Electronic ventricular pacemaker: 100 % V. Paced. A flutter No change
[2018-02-28] MEDS ORDERED: diltiaZEM 180 mg/24 Hours CD Cap PO SCH (10:00)
[2018-02-28] MEDS ORDERED: POLYETHYLENE GLYCOL 3350 17 GM/Dose PACKET PO SCH (10:00)
[2018-02-28 10:59] VITALS: PULSE 81
--- NOTE | 2018-02-28 11:00 | DS ---
HISTORY OF PRESENT ILLNESS: She is doing better. She is status post transfusion. GI is not going to do anything. She is alert. She would like to go home, I would like to have her go home. PHYSICAL EXAMINATION: VITAL SIGNS: She has a 98.5 temperature, 71 pulse, 130/71 blood pressure, 18 respiratory rate, 99% O2 sat on room air. HEENT: Head is atraumatic, normocephalic. HEART: Regular rate. LUNGS: Clear to auscultation. ABDOMEN: Soft. EXTREMITIES: No edema. MEDICATIONS: She is currently on Aricept, Aranesp, Cardizem, IV iron, Lipitor, Lopressor, MiraLax, morphine, Nephro-Haider, Norvasc, Protonix, sodium bicarb and Xanax. She is being seen by GI. Not going to do anything, nothing to do with the renal. LABORATORY DATA: She has a 10 white count, 12.1 hemoglobin, much better after transfusion, 37.7 hematocrit with 326 platelets. She has 143 sodium, potassium 4.6, BUN 41, creatinine 1.8, GFR is 27, sugar is 74, calcium is 9.8, iron is 429, total iron bypass is 400. Total bili is 1.2, AST is 21, ALT is 19, alk phos 136. Lactate dehydrogenase is 541. BNP is 1270, total protein is 8. PLAN: My plan for her is to discharge her today. Awaiting for physical therapy to see her to let me know that she is safe. I will change her to an observation and hopefully discharge her later today. She was here for anemia. Marco Farris DO
[2018-02-28 12:12] LABS: FERRITIN 39.5 ng/mL
--- NOTE | 2018-02-28 14:12 | CP.PCM.PN ---
Subjective - Date & Time of Evaluation Date of Evaluation: 02/28/18 Time of Evaluation: 14:11 - Subjective Subjective: Nephrology Consultation Note: Assessment: stable recurrent symptomatic anemia Baseline CKD 4 (N18.4) with 322 mg proteinuria possibly due to HTN, age related decline, and s/p Rt nephrectomy due to hx of RCC Hypertension tightly controlled (I12.9) Hx of Vit D insufficiency with secondary hyperparathyroidism, anemia hx of severe pulmonary HTN (RVSP 81 mm Hg) and moderate to severe LVH hx of dementia bradycardia s/p PPM, A fib metabolic acidosis Plan no acute need of renal replacement therapy at this time no ACEI or ARB due to recurrent AKIs and hyperkalemic tendency. maintain hemodynamic stable. pt on meds to control A fib rate anemia management: PRBC as needed, added iron and MVI. dose aransep 60 mcg 02/27/18. continue with statins. added oral sodium bicarb 650 mg bid GI following monitor I/O, daily weights and renal function while in hospital vit D supplements added Dose meds/antibiotics for reduced GFR. Avoid fleets enema/magnesium based laxatives. Avoid nephrotoxins/NSAIDs/IV iodinated contrast (unless emergently) Further work up as per primary team stable from renal perspective Thanks for allowing me to participate in care of your patient. will follow with you. Please call if any Qs. had d/w team Dr Jt Lemon Office: [phone] CC: SOB, weakness Reason for consult: CKD and PATRICIA HPI: Pt is a 82 y/o F with hx of hypertension (20 years) , renal cell cancer s/p unilateral total nephrectomy, CKD stage 4 with baseline cr 2 with intermittent and frequent episodes of PATRICIA, chronic anemia, A fib, bradycardia s/p PPM presented with c/o SOB, cough leg weakness renal consult for further management of PATRICIA/CKD. pt feels better. improved SOB and leg pain now. ROS: denies CP/SOB at present. denies nausea/vomiting/pain abdomen denies urine complaints. all other negative except as in HPI. feels better. limited from her due to dementia Physical Examination: General Appearance: Comfortable, in no acute respiratory distress, co-operative Vitals reviewed and noted as below Head; Atraumatic, normocephalic ENT: no ulcers no thrush. Tongue is midline. Oropharynx: no rash or ulcers. EYES: Pupils are equal, round and reactive to light accommodation. Eye muscles and extraocular movement intact. Sclera is anicteric. Neck; supple no lymphadenopathy, no thyromegaly or bruit Lungs: Normal respiratory rate/effort. Breath sounds bilateral equal and clear Heart: normal rate. s1s2 normal. No rub or gallop. has PPM Extremities: no edema. No varicose veins Neurological: Patient is alert, awake and has dementia No other focal deficit. Strength bilateral appropriate and equal Skin: Warm and dry. Normal turgor. No rash. Palpitation: Normal elasticity for age Abdomen: Abdomen is soft. Bowel sounds +. There is no abdominal tenderness, no guarding/rigidity or organomegaly Psych: limited insight and has normal affect/mood MSK: no joint tenderness or swelling. Digits and nails normal, no deformity : kidney or bladder not palpable Labs/imaging/EKG reviewed. Past medical history, past surgical history,social history, allergy reviewed and noted as below FAMILy HX; no hx of CKD. non contributory Objective - Vital Signs/Intake and Output Vital Signs (last 24 hours): Temp Pulse Resp BP Pulse Ox 98.5 F 81 18 130/71 99 02/28/18 07:00 02/28/18 10:40 02/28/18 07:00 02/28/18 10:40 02/28/18 07:00 Intake and Output: 02/28/18 02/28/18 06:59 18:59 Intake Total 375 Balance 375 - Medications Medications: Current Medications Alprazolam (Xanax) 0.25 mg PO TID PRN; Protocol PRN Reason: Anxiety Stop: 03/06/18 11:28 Amlodipine Besylate (Norvasc) 5 mg PO DAILY [facility] Last Admin: 02/28/18 10:41 Dose: 5 mg Atorvastatin Calcium (Lipitor) 20 mg PO DAILY [facility] Last Admin: 02/28/18 10:41 Dose: 20 mg Darbepoetin Xavier (Aranesp) 60 mcg SC QWK [facility] Last Admin: 02/27/18 14:01 Dose: 60 mcg Diltiazem HCl (Cardizem Cd) 180 mg PO DAILY [facility] Last Admin: 02/28/18 10:41 Dose: 180 mg Donepezil HCl (Aricept) 10 mg PO HS [facility] Last Admin: 02/27/18 21:15 Dose: 10 mg Metoprolol Tartrate (Lopressor) 25 mg PO BID [facility] Last Admin: 02/28/18 10:40 Dose: 25 mg Morphine Sulfate (Morphine) 1 mg IVP Q3H PRN PRN Reason: Pain, moderate (4-7) Last Admin: 02/28/18 01:12 Dose: 1 mg Pantoprazole Sodium (Protonix Inj) 40 mg IVP DAILY [facility] Last Admin: 02/28/18 10:40 Dose: 40 mg Polyethylene Glycol (Miralax) 17 gm PO DAILY [facility] Last Admin: 02/28/18 10:41 Dose: 17 gm Sodium Bicarbonate (Sodium Bicarbonate Tab) 650 mg PO BID [facility] Last Admin: 02/28/18 10:40 Dose: 650 mg Vitamin B Complex/Vit C/Folic Acid (Nephro-Haider) 1 tab PO 0800 [facility] Last Admin: 02/28/18 08:39 Dose: 1 tab - Labs Labs: 02/28/18 07:15 02/28/18 07:15
[2018-02-28] MEDS ORDERED: Ergocalciferol 50,000 Intl Units Cap PO SCH (14:15)
== END 2018-02-28 19:05 | disposition home or self-care (01) ==
LOC: ED 07:31 → INTOOBSV 11:24 → ERH 11:24 → 5RNO 14:35
PROVIDERS: ADMIT Family Medicine; ATTEND Family Medicine
DX: D50.9 Iron deficiency anemia, unspecified (principal); N17.9 Acute kidney failure, unspecified; I13.0 Hypertensive heart and chronic kidney disease with heart failure and stage 1 through stage 4 chronic kidney disease, or unspecified chronic kidney disease; N18.4 Chronic kidney disease, stage 4 (severe); E78.00 Pure hypercholesterolemia, unspecified; E87.2 Acidosis; F03.90 Unspecified dementia, unspecified severity, without behavioral disturbance, psychotic disturbance, mood disturbance, and anxiety; F41.9 Anxiety disorder, unspecified; G89.29 Other chronic pain; I27.20 Pulmonary hypertension, unspecified; I48.91 Unspecified atrial fibrillation; I50.9 Heart failure, unspecified; J44.9 Chronic obstructive pulmonary disease, unspecified; K21.9 Gastro-esophageal reflux disease without esophagitis; K25.4 Chronic or unspecified gastric ulcer with hemorrhage; K55.20 Angiodysplasia of colon without hemorrhage; N25.81 Secondary hyperparathyroidism of renal origin; Z85.118 Personal history of other malignant neoplasm of bronchus and lung; Z85.528 Personal history of other malignant neoplasm of kidney; Z87.11 Personal history of peptic ulcer disease; Z87.891 Personal history of nicotine dependence; Z90.2 Acquired absence of lung [part of]; Z90.5 Acquired absence of kidney; Z95.0 Presence of cardiac pacemaker; R00.1 Bradycardia, unspecified; M54.30 Sciatica, unspecified side; M19.90 Unspecified osteoarthritis, unspecified site; R26.81 Unsteadiness on feet; Z87.19 Personal history of other diseases of the digestive system
CPT/HCPCS: 36415; 36430; 71045; 80048; 80053; 81001; 82306; 82550; 82728; 82803; 83540; 83550; 83615; 83735; 83880; 83970; 84484; 85025; 85027; 86850; 86900; 86920; 87086; 87181; 87804; 93005; 96365; 96372; 96375; 97116; 97161; 97530; 99283; C9113; G0378; G8978; G8979; J0881; J1756; J1940; J2270; P9016

== ENCOUNTER 2018-03-02 16:28 | Inpatient (IN) | payer MEDICARE ==
[2018-03-02 16:29] VITALS: PULSE 45
[2018-03-02] MEDS ORDERED: Ciprofloxacin 400mg/200ml D5W 400 MG/200 ML BAG IVPB STA (16:49)
--- NOTE | 2018-03-02 17:08 | ED PDOC ---
Arrival/HPI - General Chief Complaint: Abnormal Labs Time Seen by Provider: 03/02/18 16:30 - History of Present Illness Narrative History of Present Illness (Text): 03/02/18 17:06 82 yo female, presents for eval for abnormal urine culture for esbl. sent to er for iv antibiotics by pmd. no other complaint. reqesting food in nad upon arrval. Past Medical History - Infectious Disease Hx of Infectious Diseases: None - Tetanus Immunization Tetanus Immunization: >10 years Ago - Cardiac Hx Hypertension: Yes - Pulmonary Hx Chronic Obstructive Pulmonary Disease (COPD): Yes - Neurological Hx Neurological Disorder: Yes Hx Dementia: Yes Hx Dizziness: Yes (SYNCOPE) - HEENT Hx HEENT Disorder: Yes (glasses) - Renal Hx Renal Disorder: Yes Hx Renal Cancer: (pt denies) Other/Comment: r nephrectomy - Endocrine/Metabolic Hx Endocrine Disorders: No - Hematological/Oncological Hx Blood Disorders: Yes Hx Anemia: Yes (blood transfusions) Hx Cancer: No - Integumentary Hx Dermatological Disorder: Yes - Musculoskeletal/Rheumatological Hx Musculoskeletal Disorders: Yes (sciatica) Hx Arthritis: Yes Hx Back Pain: Yes Hx Falls: Yes (past) Hx Unsteady Gait: Yes (cane) - Gastrointestinal Hx Gastrointestinal Disorders: Yes (rectal bleeding) Hx Gastroesophageal Reflux: Yes Hx Pancreatitis: Yes - Genitourinary/Gynecological Hx Genitourinary Disorders: No - Psychiatric Hx Psychophysiologic Disorder: Yes Hx Anxiety: Yes Hx Substance Use: No - Surgical History Hx Mastectomy: No Other/Comment: r nephrectomy - Anesthesia Hx Anesthesia: Yes Hx Anesthesia Reactions: No Hx Malignant Hyperthermia: No Family/Social History Family/Social History: Unknown Family HX Smoking Status: Former Smoker Hx Alcohol Use: No Hx Substance Use: No Allergies/Home Meds Allergies/Adverse Reactions: Allergies No Known Allergies Allergy (Verified 09/24/17 12:30) Review of Systems - Review of Systems Constitutional: Normal Eyes: Normal ENT: Normal Respiratory: Normal Cardiovascular: Normal Gastrointestinal: Normal Genitourinary Female: Normal Musculoskeletal: Normal Skin: Normal Neurological: Normal Endocrine: Normal Hemo/Lymphatic: Normal Psychiatric: Normal Physical Exam Vital Signs Temp Pulse Resp BP Pulse Ox 03/02/18 16:51 98.2 F 77 16 109/52 L 98 Temperature: Afebrile Blood Pressure: Normal Pulse: Regular Respiratory Rate: Normal Appearance: Positive for: Well-Appearing, Non-Toxic, Comfortable Pain Distress: None Mental Status: Positive for: other (calm cooperatiing in nad. ) - Systems Exam Head: Present: Atraumatic, Normocephalic Pupils: Present: PERRL Extroacular Muscles: Present: EOMI Conjunctiva: Present: Normal Mouth: Present: Moist Mucous Membranes Neck: Present: Normal Range of Motion Respiratory/Chest: Present: Clear to Auscultation, Good Air Exchange. No: Respiratory Distress, Accessory Muscle Use Cardiovascular: Present: Regular Rate and Rhythm, Normal S1, S2. No: Murmurs Abdomen: No: Tenderness, Distention, Peritoneal Signs, Rebound, Guarding Back: Present: Normal Inspection Upper Extremity: Present: Normal Inspection. No: Cyanosis, Edema Lower Extremity: Present: Normal Inspection. No: Edema Neurological: Present: GCS=15, CN II-XII Intact, Speech Normal Skin: Present: Warm, Dry, Normal Color. No: Rashes Psychiatric: Present: Normal Insight, Normal Concentration Medical Decision Making ED Course and Treatment: 03/02/18 17:07 ID request iv antibioics cipro started labs and cultures sent. - Medication Orders Current Medication Orders: Alprazolam (Xanax) 0.25 mg PO TID PRN; Protocol PRN Reason: Anxiety Stop: 03/09/18 18:01 Amlodipine Besylate (Norvasc) 5 mg PO DAILY [facility] Aspirin (Aspirin Chewable) 81 mg PO DAILY [facility] Atorvastatin Calcium (Lipitor) 20 mg PO DAILY [facility] Diltiazem HCl (Cardizem Cd) 180 mg PO DAILY [facility] Docusate Sodium (Colace) 100 mg PO DAILY [facility] Donepezil HCl (Aricept) 10 mg PO HS [facility] Ciprofloxacin (Cipro 400mg/200ml Dsw) 400 mg in 200 mls @ 133.3 mls/hr IVPB STAT STA; Protocol Stop: 03/02/18 18:19 Sodium Chloride (Sodium Chloride 0.45%) 1,000 mls @ 40 mls/hr IV .Q24H [facility] Meropenem/Sodium Chloride (Merrem Iv 500 Mg/Ns 50 Ml) 500 mg in 50 mls @ 12.5 mls/hr IVPB Q12 [facility]; Protocol Pantoprazole Sodium (Protonix Ec Tab) 40 mg PO DAILY [facility] Polyethylene Glycol (Miralax) 17 gm PO DAILY [facility] Tramadol HCl (Ultram) 50 mg PO TID PRN PRN Reason: Pain, moderate (4-7) Discontinued Medications Amlodipine Besylate (Norvasc) 5 mg PO STAT [facility] Stop: 03/02/18 16:58 Disposition/Present on Arrival - Present on Arrival Any Indicators Present on Arrival: No History of DVT/PE: No History of Uncontrolled Diabetes: No Urinary Catheter: No History of Decub. Ulcer: No History Surgical Site Infection Following: None - Disposition Have Diagnosis and Disposition been Completed?: Yes Diagnosis: UTI due to extended-spectrum beta lactamase (ESBL) producing Escherichia coli Disposition: HOSPITALIZED Disposition Time: 16:00 Patient Problems: Current Active Problems Problem Status Onset UTI due to extended-spectrum beta lactamase (ESBL) producing Escherichia coli Acute Condition: STABLE Forms: [employer] ([place]ish)
[2018-03-02 17:58] LABS: BASO # 0.02 K/mm3 (0.0-2.0); BASO % 0.2 % (0.0-3.0); EOS # 0.1 (0.0-0.7); EOS % 0.9 % (1.5-5.0); GRAN # 6.84 (1.4-6.5); GRAN % 78.1 % (50.0-68.0); HEMOGLOBIN 12.1 g/dL (12.0-16.0); LYMPH # 1.3 (1.2-3.4); LYMPH % 14.6 % (22.0-35.0); MEAN CELL VOLUME 79.5 fl (80.0-105.0); MEAN CORPUSCULAR HEMOGLOBIN 25.1 pg (25.0-35.0); MEAN CORPUSCULAR HGB CONC 31.5 g/dl (31.0-37.0); MEAN PLATELET VOLUME 10.1 fl (7.0-11.0); MONO # 0.5 (0.1-0.6); MONO % 6.2 % (1.0-6.0); RBC 4.83 10^6/uL (3.5-6.1); RED CELL DISTRIBUTION WIDTH 20.4 % (11.5-14.5); WHITE BLOOD COUNT 8.8 10^3/uL (4.5-11.0)
[2018-03-02 18:07] LABS: INR 1.45; PARTIAL THROMBOPLASTIN TIME 25.2 Seconds (25.1-36.5); PROTHROMBIN TIME 16.7 SECONDS (9.4-12.5)
[2018-03-02 18:12] LABS: ALB/GLOB RATIO 0.9 (1.1-1.8); ALBUMIN 3.8 g/dL (3.0-4.8); CALCIUM 9.3 mg/dL (8.4-10.5)
[2018-03-02] MEDS: Sodium Chloride 0.45% 1,000 ML IV SCH ×2 (18:16→22:30)
[2018-03-02 18:44] LABS: URINE APPEARANCE SL CLOUDY (CLEAR); URINE BILIRUBIN NEGATIVE (NEGATIVE); URINE BLOOD NEGATIVE (NEGATIVE); URINE COLOR YELLOW (YELLOW); URINE GLUCOSE (UA) NEGATIVE (NEGATIVE); URINE LEUKOCYTE ESTERASE SMALL Leu/uL (NEGATIVE); URINE PROTEIN TRACE mg/dL (<30 mg/dL); URINE UROBILINOGEN 0.2 E.U./dL (<1 E.U./dL)
[2018-03-02 18:58] LABS: URINE BACTERIA MOD /hpf; URINE RBC NEGATIVE /hpf (0-2); URINE WBC 15 - 20 /hpf (0-6)
--- NOTE | 2018-03-02 20:23 | HP ---
DATE OF EXAM: 03/02/2018 HISTORY OF PRESENT ILLNESS: Sarah Baker was recently in the hospital for lower extremity injury. She had an urinary tract infection ruled out, but I had a call today that the urine was positive for ESBL and was not sensitive to anything orally, so they asked me to bring it back to the hospital for IV antibiotics. I discussed this with the Infectious Disease doctor, Dr. Mercado. We are going to put her on Merrem, she understands the situation, so that she is back on the hospital, I discussed with her family at length. She is an 82-year-old female who was here a few days ago, had urinalysis, culture and sensitivity done and was found to have ESBL in the urine and E. coli and they were asked me to bring it back sensitive to oral antibiotics, will be put on IV Merrem as I discussed with Infectious Disease. PAST MEDICAL HISTORY: Includes hypertension, dementia, pacemaker, anxiety, chronic right lower extremity pain, anemia, and COPD. She has had a nephrectomy. She has been short of breath in the past and syncope. She wears glasses. She had renal disease with a right nephrectomy. She had blood transfusions for anemia in the past. She has sciatica, arthritis, back pain, and fall. She uses a cane. She has rectal bleeding, GERD, pancreatitis, and anxiety. FAMILY HISTORY: Unknown family history. SOCIAL HISTORY: Former smoker. No alcohol. No drugs. ALLERGIES: NO KNOWN DRUG ALLERGIES. REVIEW OF SYSTEMS: She is comfortable. She understands the situation. No acute vision or hearing changes. No shortness of breath or cough. No abdominal pain. No problems urinating. No chest pain or palpitations. Bilateral lower extremity weakness and pain at her baseline. Skin for the most part is intact that she knows no rashes. She is alert, comfortable, smiling. No headache. No dizziness. She does not want to be here, but she understands why. PHYSICAL EXAMINATION: VITAL SIGNS: Temperature 98.2, blood pressure 109/52, respiratory rate 16, and 98% O2 sat on room air. GENERAL: Well-appearing, nontoxic, comfortable, alert, and reoriented to x3. HEENT: Head is atraumatic and normocephalic. Extraocular muscles are intact. Pupils equal and reactive to light. Throat is moist. NECK: Supple. HEART: Regular rate. Normal S1 and S2. LUNGS: Decreased breath sounds, but clear to auscultation. ABDOMEN: Soft and nontender. Positive bowel sounds. No guarding. No rebound. No CVA tenderness. EXTREMITIES: Have no edema. GCS is 15. Cranial nerves II through XII grossly intact. SKIN: Warm and dry. Alert and oriented x3. Normal insight. She will get blood tests done in the ER, I am going to start her on Merrem after talking with Dr. Mercado, the Infectious Disease doctor. I will put her back on her regular medications, which include Aricept, aspirin, Cardizem, Colace, Lipitor, MiraLax, Norvasc, Protonix, IV fluids, Ultram and Xanax. She is here for ESBL in the urine, called back due to her urinalysis, culture sensitivity that was positive. She will have a consult with Dr. Mercado and I will check her labs tomorrow morning, physical therapy, and out of bed to chair. Thank you very much. Marco Farris DO [facility]
[2018-03-02] MEDS: MEROPENEM 500 MG in NS 500 MG/50 ML BAG IVPB SCH (22:50)
[2018-03-03 00:05] VITALS: BMI 21.9
[2018-03-03] MEDS ORDERED: Influenza Vaccine 60 mcg/0.5 mL SYR (4YR UP) IM ONE (00:05)
[2018-03-03] MEDS ORDERED: Pneumococcal 23-Valent Vaccine IM ONE (00:05)
[2018-03-03 07:18] LABS: HEMOGLOBIN 11.3 g/dL (12.0-16.0); MEAN CELL VOLUME 79.3 fl (80.0-105.0); MEAN CORPUSCULAR HEMOGLOBIN 24.6 pg (25.0-35.0); MEAN PLATELET VOLUME 9.5 fl (7.0-11.0); RBC 4.6 10^6/uL (3.5-6.1); RED CELL DISTRIBUTION WIDTH 20.8 % (11.5-14.5); WHITE BLOOD COUNT 8.8 10^3/uL (4.5-11.0)
[2018-03-03 07:44] LABS: ALB/GLOB RATIO 0.8 (1.1-1.8); ALBUMIN 3.5 g/dL (3.0-4.8)
[2018-03-03] MEDS: MEROPENEM 500 MG in NS 500 MG/50 ML BAG IVPB SCH ×2 (09:41→21:42)
[2018-03-03] MEDS: POLYETHYLENE GLYCOL 3350 17 GM/Dose PACKET PO SCH (09:45)
[2018-03-03] MEDS: diltiaZEM 180 mg/24 Hours CD Cap PO SCH (09:46)
[2018-03-03] MEDS: Pantoprazole 40 mg EC Tab PO SCH (09:46)
--- NOTE | 2018-03-03 10:03 | PN ---
DATE: 03/03/2018 SUBJECTIVE: She is resting comfortably in bed. She is on Aricept, aspirin, Cardizem, Colace, Lipitor, Merrem IV, MiraLax, Norvasc, Protonix, IV fluids, Ultram and Xanax. She is here because she had a urinalysis, culture sensitivity that actually resulted in ESBL, she was called back to come to the hospital. OBJECTIVE: VITAL SIGNS: She has a 98.2 temperature, 77 pulse, 109/52 blood pressure, 16 respiratory rate, 98% O2 sat on room air. HEENT: Head is atraumatic, normocephalic. HEART: Regular rate. LUNGS: Decreased breath sounds, but clear. ABDOMEN: Soft, scaphoid, nontender. Positive bowel sounds. EXTREMITIES: No edema. LABORATORY DATA: She has a 8.8 white count, 11.3 hemoglobin, 36.5 hematocrit with a 264 platelets. She has a 143 sodium, potassium 4.2, BUN 44, creatinine 2.3, GFR is 20, sugar is 98, calcium is 9, total bili is 0.4, AST is 23, ALT is alk phos 102, total protein 7.7. Urine was moderate bacteria. IMPRESSION AND PLAN: She has a consult with Infectious Disease. She is on Merrem IV, she will need to be on seven days. I am hoping to get her to Transitional Care Unit in 3 days finish off. The IV antibiotics on the Transitional Care Unit and she could probably use some physical therapy. She is here for a extended-spectrum beta-lactamases in the urine. IV antibiotics medicines. Physical therapy. Hopefully Transitional Care Unit. Marco Farris DO [facility]
--- NOTE | 2018-03-03 11:24 | CP.PCM.APN ---
Subjective - Date & Time of Evaluation Date of Evaluation: 03/03/18 Time of Evaluation: 10:00 - Subjective Subjective: Pt seen and examined at bedside. In no acute distress. Objective - Vital Signs/Intake and Output Vital Signs (last 24 hours): Temp Pulse Resp BP Pulse Ox 97.9 F 63 18 129/68 100 03/03/18 06:00 03/03/18 06:00 03/03/18 06:00 03/03/18 06:00 03/03/18 06:00 - Medications Medications: Current Medications Alprazolam (Xanax) 0.25 mg PO TID PRN; Protocol PRN Reason: Anxiety Stop: 03/09/18 18:01 Last Admin: 03/03/18 09:50 Dose: 0.25 mg Amlodipine Besylate (Norvasc) 5 mg PO DAILY [facility] Last Admin: 03/03/18 09:45 Dose: 5 mg Aspirin (Aspirin Chewable) 81 mg PO DAILY [facility] Last Admin: 03/03/18 09:46 Dose: 81 mg Atorvastatin Calcium (Lipitor) 20 mg PO DAILY [facility] Last Admin: 03/03/18 09:45 Dose: 20 mg Diltiazem HCl (Cardizem Cd) 180 mg PO DAILY [facility] Last Admin: 03/03/18 09:46 Dose: 180 mg Docusate Sodium (Colace) 100 mg PO DAILY [facility] Last Admin: 03/03/18 09:45 Dose: 100 mg Donepezil HCl (Aricept) 10 mg PO HS [facility] Last Admin: 03/02/18 22:50 Dose: 10 mg Sodium Chloride (Sodium Chloride 0.45%) 1,000 mls @ 40 mls/hr IV .Q24H [facility] Last Admin: 03/02/18 22:30 Dose: 40 mls/hr Meropenem/Sodium Chloride (Merrem Iv 500 Mg/Ns 50 Ml) 500 mg in 50 mls @ 12.5 mls/hr IVPB Q12 [facility]; Protocol Last Admin: 03/03/18 09:41 Dose: 12.5 mls/hr Pantoprazole Sodium (Protonix Ec Tab) 40 mg PO DAILY [facility] Last Admin: 03/03/18 09:46 Dose: 40 mg Polyethylene Glycol (Miralax) 17 gm PO DAILY [facility] Last Admin: 03/03/18 09:45 Dose: 17 gm Tramadol HCl (Ultram) 50 mg PO TID PRN PRN Reason: Pain, moderate (4-7) Last Admin: 03/03/18 09:50 Dose: 50 mg - Labs Labs: 03/03/18 06:45 03/03/18 06:45 PT 16.7 SECONDS (9.4-12.5) H 03/02/18 17:51 INR 1.45 03/02/18 17:51 APTT 25.2 Seconds (25.1-36.5) 03/02/18 17:51 - Constitutional Appears: Well, No Acute Distress - Head Exam Head Exam: ATRAUMATIC - Eye Exam Eye Exam: Normal appearance - ENT Exam ENT Exam: Mucous Membranes Moist, Normal Exam - Neck Exam Neck Exam: Full ROM - Respiratory Exam Respiratory Exam: Clear to Ausculation Bilateral, NORMAL BREATHING PATTERN - Cardiovascular Exam Cardiovascular Exam: REGULAR RHYTHM, +S1, +S2 - GI/Abdominal Exam GI & Abdominal Exam: Soft, Normal Bowel Sounds - Rectal Exam Rectal Exam: Deferred - Neurological Exam Neurological Exam: Alert, Awake, Oriented x3 Assessment and Plan - Assessment and Plan (Free Text) Assessment: Pt is a 82 y.o. female with pmhx of COPD, dementia, dizziness, R nephrectomy and unsteady gait. She was sent to ED by her PMD due to +esbl in urine for IV antibiotics. Plan: On Merrem (will need 5-7 days per ID recs) Physical Therapy recommends TCU Meds per MAR TCU Eval SW/CM for dc planning - ?tcu for abx and rehab Will continue to follow
--- NOTE | 2018-03-03 13:30 | CP.PCM.CON ---
History of Present Illness - History of Present Illness History of Present Illness: 82 year old female with PMH of atrial fibrillation, COPD, CAD, chronic CHF, renal cell cancer S/P nephrectomy, lung cancer S/P lobectomy, anxiety, dementia was [place] in [place] [facility] [place] of [place]BL E. coli in her urine found on previou s admission. She denies dysuria, no flank pain or suprapubic pain but does have urinary frequency. She denies fever or chills, no nausea or vomiting, no abdominal pain, no headache or dizziness, no chest pain, no SOB, no cough or colds, no diarrhea. Infectious diseases consult is requested to further evaluate and manage. Review of Systems - Review of Systems All systems: reviewed and no additional remarkable complaints except (as per HPI) Past Patient History - Infectious Disease Hx of Infectious Diseases: None - Tetanus Immunizations Tetanus Immunization: >10 years Ago - Past Medical History & Family History Past Medical History?: Yes - Past Social History Smoking Status: Former Smoker - CARDIAC Hx Cardiac Disorders: Yes Hx Hypertension: Yes - PULMONARY Hx Respiratory Disorders: Yes Hx Chronic Obstructive Pulmonary Disease (COPD): Yes - NEUROLOGICAL Hx Neurological Disorder: Yes Hx Dementia: Yes Hx Dizziness: Yes (SYNCOPE) - HEENT Hx HEENT Problems: Yes (glasses) - RENAL Hx Chronic Kidney Disease: Yes Hx Renal (Kidney) Cancer: (pt denies) Other/Comment: r nephrectomy - ENDOCRINE/METABOLIC Hx Endocrine Disorders: No - HEMATOLOGICAL/ONCOLOGICAL Hx Blood Disorders: Yes Hx Anemia: Yes (blood transfusions) Hx Cancer: No - INTEGUMENTARY Hx Dermatological Problems: Yes - MUSCULOSKELETAL/RHEUMATOLOGICAL Hx Musculoskeletal Disorders: Yes (sciatica) Hx Arthritis: Yes Hx Back Pain: Yes Hx Falls: Yes (past) Hx Unsteady Gait: Yes (cane) - GASTROINTESTINAL Hx Gastrointestinal Disorders: Yes (rectal bleeding) Hx Gastroesophageal Reflux: Yes Hx Pancreatitis: Yes - GENITOURINARY/GYNECOLOGICAL Hx Genitourinary Disorders: No - PSYCHIATRIC Hx Psychophysiologic Disorder: Yes Hx Anxiety: Yes Hx Substance Use: No - SURGICAL HISTORY Hx Mastectomy: No Other/Comment: r nephrectomy - ANESTHESIA Hx Anesthesia: Yes Hx Anesthesia Reactions: No Hx Malignant Hyperthermia: No Meds Allergies/Adverse Reactions: Allergies Allergy/AdvReac Type Severity Reaction Status Date / Time No Known Allergies Allergy Verified 03/02/18 21:37 - Medications Medications: Current Medications Alprazolam (Xanax) 0.25 mg PO TID PRN; Protocol PRN Reason: Anxiety Stop: 03/09/18 18:01 Last Admin: 03/02/18 22:53 Dose: 0.25 mg Amlodipine Besylate (Norvasc) 5 mg PO DAILY [facility] Aspirin (Aspirin Chewable) 81 mg PO DAILY [facility] Atorvastatin Calcium (Lipitor) 20 mg PO DAILY [facility] Diltiazem HCl (Cardizem Cd) 180 mg PO DAILY [facility] Docusate Sodium (Colace) 100 mg PO DAILY [facility] Donepezil HCl (Aricept) 10 mg PO HS [facility] Last Admin: 03/02/18 22:50 Dose: 10 mg Sodium Chloride (Sodium Chloride 0.45%) 1,000 mls @ 40 mls/hr IV .Q24H [facility] Last Admin: 03/02/18 22:30 Dose: 40 mls/hr Meropenem/Sodium Chloride (Merrem Iv 500 Mg/Ns 50 Ml) 500 mg in 50 mls @ 12.5 mls/hr IVPB Q12 [facility]; Protocol Last Admin: 03/02/18 22:50 Dose: 12.5 mls/hr Pantoprazole Sodium (Protonix Ec Tab) 40 mg PO DAILY [facility] Polyethylene Glycol (Miralax) 17 gm PO DAILY [facility] Tramadol HCl (Ultram) 50 mg PO TID PRN PRN Reason: Pain, moderate (4-7) Last Admin: 03/02/18 22:53 Dose: 50 mg Physical Exam - Constitutional Appears: Non-toxic, No Acute Distress, Chronically Ill - Head Exam Head Exam: NORMAL INSPECTION - Neck Exam Neck exam: Negative for: Meningismus - Respiratory Exam Respiratory Exam: Decreased Breath Sounds - Cardiovascular Exam Cardiovascular Exam: +S1, +S2 - GI/Abdominal Exam GI & Abdominal Exam: Soft. absent: Tenderness Results - Vital Signs Recent Vital Signs: Last Vital Signs Temp 98.2 F 03/02/18 16:51 Pulse 77 03/02/18 16:51 Resp 16 03/02/18 23:47 BP 109/52 L 03/02/18 16:51 Pulse Ox 98 03/02/18 21:27 - Labs Result Diagrams: 03/03/18 06:45 03/03/18 06:45 Labs: Laboratory Results - last 24 hr 03/02/18 03/02/18 03/02/18 17:51 17:51 17:51 WBC 8.8 RBC 4.83 Hgb 12.1 Hct 38.4 MCV 79.5 L MCH 25.1 MCHC 31.5 RDW 20.4 H Plt Count 305 MPV 10.1 Gran % 78.1 H Lymph % (Auto) 14.6 L [place] % (Auto) 6.2 H Eos % (Auto) 0.9 L Baso % (Auto) 0.2 Gran # 6.84 H Lymph # (Auto) 1.3 [place] # (Auto) 0.5 Eos # (Auto) 0.1 Baso # (Auto) 0.02 PT 16.7 H INR 1.45 APTT 25.2 Sodium 139 Potassium 4.9 Chloride 107 Carbon Dioxide 21 Anion Gap 16 BUN 47 H Creatinine 2.5 H Est GFR ( Amer) 22 Est GFR (Non-Af Amer) 18 Random Glucose 108 Calcium 9.3 Total Bilirubin 0.7 AST 32 ALT 20 Alkaline Phosphatase 120 Total Protein 8.2 Albumin 3.8 Globulin 4.4 Albumin/Globulin Ratio 0.9 L Urine Color Urine Appearance Urine pH Ur Specific [place] Urine Protein Urine Glucose (UA) Urine Ketones Urine Blood Urine Nitrate Urine Bilirubin Urine Urobilinogen Ur Leukocyte Esterase Urine RBC Urine WBC Ur Epithelial Cells Urine Bacteria 03/02/18 18:30 WBC RBC Hgb Hct MCV MCH MCHC RDW Plt Count MPV Gran % Lymph % (Auto) [place] % (Auto) Eos % (Auto) Baso % (Auto) Gran # Lymph # (Auto) [place] # (Auto) Eos # (Auto) Baso # (Auto) PT INR APTT Sodium Potassium Chloride Carbon Dioxide Anion Gap BUN Creatinine Est GFR ( Amer) Est GFR (Non-Af Amer) Random Glucose Calcium Total Bilirubin AST ALT Alkaline Phosphatase Total Protein Albumin Globulin Albumin/Globulin Ratio Urine Color Yellow Urine Appearance Sl cloudy Urine pH 6.0 Ur Specific [place] >= 1.030 Urine Protein Trace H Urine Glucose (UA) Negative Urine Ketones Negative Urine Blood Negative Urine Nitrate Negative Urine Bilirubin Negative Urine Urobilinogen 0.2 Ur Leukocyte Esterase Small H Urine RBC Negative Urine WBC 15 - 20 H Ur Epithelial Cells 6 - 8 H Urine Bacteria Mod Assessment & Plan - Assessment and Plan (Free Text) Plan: Assessment consider UTI with ESBL E. coli S/P Severe sepsis R/O intra-abdominal infection atrial fibrillation COPD CAD chronic CHF renal cell cancer S/P nephrectomy lung cancer S/P lobectomy anxiety dementia Plan started Merrem for 5-7 days and will monitor clinically discussed with Dr. Farris
[2018-03-04 06:56] LABS: HEMOGLOBIN 11.8 g/dL (12.0-16.0); MEAN CELL VOLUME 79.5 fl (80.0-105.0); MEAN CORPUSCULAR HEMOGLOBIN 24.9 pg (25.0-35.0); MEAN CORPUSCULAR HGB CONC 31.3 g/dl (31.0-37.0); MEAN PLATELET VOLUME 9.4 fl (7.0-11.0); RBC 4.74 10^6/uL (3.5-6.1); RED CELL DISTRIBUTION WIDTH 21.5 % (11.5-14.5); WHITE BLOOD COUNT 11.4 10^3/uL (4.5-11.0)
[2018-03-04 07:48] LABS: ALB/GLOB RATIO 0.9 (1.1-1.8); ALBUMIN 3.6 g/dL (3.0-4.8); CALCIUM 9.1 mg/dL (8.4-10.5)
[2018-03-04] MEDS ORDERED: Sod Polystyrene Sulf 15 gm/60 ml Susp PO ONE (08:10)
[2018-03-04] MEDS: Pantoprazole 40 mg EC Tab PO SCH (09:21)
[2018-03-04] MEDS: diltiaZEM 180 mg/24 Hours CD Cap PO SCH (09:21)
[2018-03-04] MEDS: POLYETHYLENE GLYCOL 3350 17 GM/Dose PACKET PO SCH (09:23)
[2018-03-04] MEDS: MEROPENEM 500 MG in NS 500 MG/50 ML BAG IVPB SCH ×2 (09:27→22:14)
--- NOTE | 2018-03-04 11:13 | PN ---
DATE: 03/04/2018 SUBJECTIVE: I saw Sarah sitting in bed. She is eating her breakfast. She did not sleep well last night. She plans on taking a little lap and then go have a good time for the rest of the day. She is on IV antibiotics for an ESBL in her urine with E. coli. MEDICATIONS: She is on IV fluids, Aricept, chewable aspirin, Cardizem, Colace, Lipitor, Merrem IV, Norvasc, Protonix, Ultram and Xanax. PHYSICAL EXAMINATION: GENERAL: She is alert, comfortable, eating, in good spirits. VITAL SIGNS: Temperature 97.9, 67 pulse, 122/57 blood pressure, 18 respiratory rate, 95% O2 sat on room air. HEENT: Head: Atraumatic, normocephalic. Throat is moist. NECK: Supple. HEART: Regular rate. LUNGS: Decreased breath sounds bilaterally, but clear to auscultation, poor inspiration. ABDOMEN: Soft, nontender. Positive bowel sounds. Scaphoid. No guarding, no rebound or CVA tenderness. EXTREMITIES: No edema. LABORATORY DATA: She has 11.4 white count, 11.8 hemoglobin, 37.7 hematocrit, 259 platelets. Sodium 138, potassium 5.2, BUN 39, creatinine 1.8, GFR is 27, sugar is 90, calcium is 9.1, total bili is 0.4, AST is 23, ALT is 20, alk phos 109, total protein 7.8, albumin is 2.6. Urine was moderate bacteria, but now she has ESBL. ASSESSMENT AND PLAN: She is being seen by Infectious Disease. Tomorrow, I believe, is her third overnight. I am hoping I could get her to transitional care unit tomorrow to continue the intravenous antibiotics and physical therapy to complete the 7 days of antibiotics as per Infectious Disease. We will continue with aggressive treatment and care, some physical therapy, out of bed to chair, intravenous antibiotics for extended-spectrum beta-lactamases urinary tract infection. Marco Farris DO
--- NOTE | 2018-03-04 11:46 | CP.PCM.APN ---
Subjective - Date & Time of Evaluation Date of Evaluation: 03/04/18 Time of Evaluation: 10:45 - Subjective Subjective: Pt seen and examined at bedside. In no acute distress. Denies dysuria or hematuria. She is agreeable to go to TCU hopefully tomorrow to finisher her IV abx. Objective - Vital Signs/Intake and Output Vital Signs (last 24 hours): Temp Pulse Resp BP Pulse Ox 97.8 F 60 96 H 139/68 95 03/04/18 06:00 03/04/18 06:00 03/04/18 06:00 03/04/18 09:22 03/03/18 23:24 Intake and Output: 03/04/18 03/04/18 06:59 18:59 Intake Total 840 Balance 840 - Medications Medications: Current Medications Alprazolam (Xanax) 0.25 mg PO TID PRN; Protocol PRN Reason: Anxiety Stop: 03/09/18 18:01 Last Admin: 03/03/18 09:50 Dose: 0.25 mg Amlodipine Besylate (Norvasc) 5 mg PO DAILY [facility] Last Admin: 03/04/18 09:22 Dose: 5 mg Aspirin (Aspirin Chewable) 81 mg PO DAILY [facility] Last Admin: 03/04/18 09:21 Dose: 81 mg Atorvastatin Calcium (Lipitor) 20 mg PO DAILY [facility] Last Admin: 03/04/18 09:21 Dose: 20 mg Diltiazem HCl (Cardizem Cd) 180 mg PO DAILY [facility] Last Admin: 03/04/18 09:21 Dose: 180 mg Docusate Sodium (Colace) 100 mg PO DAILY [facility] Last Admin: 03/04/18 09:21 Dose: 100 mg Donepezil HCl (Aricept) 10 mg PO HS [facility] Last Admin: 03/03/18 21:43 Dose: 10 mg Sodium Chloride (Sodium Chloride 0.45%) 1,000 mls @ 40 mls/hr IV .Q24H [facility] Last Admin: 03/02/18 22:30 Dose: 40 mls/hr Meropenem/Sodium Chloride (Merrem Iv 500 Mg/Ns 50 Ml) 500 mg in 50 mls @ 12.5 mls/hr IVPB Q12 [facility]; Protocol Last Admin: 03/04/18 09:27 Dose: 12.5 mls/hr Pantoprazole Sodium (Protonix Ec Tab) 40 mg PO DAILY [facility] Last Admin: 03/04/18 09:21 Dose: 40 mg Polyethylene Glycol (Miralax) 17 gm PO DAILY [facility] Last Admin: 03/04/18 09:23 Dose: 17 gm Tramadol HCl (Ultram) 50 mg PO TID PRN PRN Reason: Pain, moderate (4-7) Last Admin: 03/04/18 02:42 Dose: 50 mg - Labs Labs: 03/04/18 06:30 03/04/18 06:30 PT 16.7 SECONDS (9.4-12.5) H 03/02/18 17:51 INR 1.45 03/02/18 17:51 APTT 25.2 Seconds (25.1-36.5) 03/02/18 17:51 - Constitutional Appears: Well, No Acute Distress - Head Exam Head Exam: ATRAUMATIC - Eye Exam Eye Exam: Normal appearance - ENT Exam ENT Exam: Normal Exam - Neck Exam Neck Exam: Full ROM - Respiratory Exam Respiratory Exam: Clear to Ausculation Bilateral, NORMAL BREATHING PATTERN - Cardiovascular Exam Cardiovascular Exam: REGULAR RHYTHM, +S1, +S2 - GI/Abdominal Exam GI & Abdominal Exam: Soft, Normal Bowel Sounds - Rectal Exam Rectal Exam: Deferred - Extremities Exam Extremities Exam: Full ROM, Normal Inspection - Neurological Exam Neurological Exam: Alert, Awake Assessment and Plan - Assessment and Plan (Free Text) Assessment: Pt is an 82 y.o. female admitted for UTI. Plan: Merrem per ID recs ID on consult Meds per MAR Physical Therapy Spoke to Liliane, from TCU and stated pt accepted for tomorrow SW/CM for dc planning Will continue to follow
--- NOTE | 2018-03-04 12:47 | CP.PCM.PN ---
Subjective - Date & Time of Evaluation Date of Evaluation: 03/04/18 Time of Evaluation: 09:25 - Subjective Subjective: Afebrile, comfortable, no nausea, no diarrhea. Objective - Vital Signs/Intake and Output Vital Signs (last 24 hours): Temp Pulse Resp BP Pulse Ox 97.8 F 60 96 H 139/68 95 03/04/18 06:00 03/04/18 06:00 03/04/18 06:00 03/04/18 09:22 03/03/18 23:24 Intake and Output: 03/04/18 03/04/18 06:59 18:59 Intake Total 840 Balance 840 - Medications Medications: Current Medications Alprazolam (Xanax) 0.25 mg PO TID PRN; Protocol PRN Reason: Anxiety Stop: 03/09/18 18:01 Last Admin: 03/03/18 09:50 Dose: 0.25 mg Amlodipine Besylate (Norvasc) 5 mg PO DAILY [facility] Last Admin: 03/04/18 09:22 Dose: 5 mg Aspirin (Aspirin Chewable) 81 mg PO DAILY [facility] Last Admin: 03/04/18 09:21 Dose: 81 mg Atorvastatin Calcium (Lipitor) 20 mg PO DAILY [facility] Last Admin: 03/04/18 09:21 Dose: 20 mg Diltiazem HCl (Cardizem Cd) 180 mg PO DAILY [facility] Last Admin: 03/04/18 09:21 Dose: 180 mg Docusate Sodium (Colace) 100 mg PO DAILY [facility] Last Admin: 03/04/18 09:21 Dose: 100 mg Donepezil HCl (Aricept) 10 mg PO HS [facility] Last Admin: 03/03/18 21:43 Dose: 10 mg Sodium Chloride (Sodium Chloride 0.45%) 1,000 mls @ 40 mls/hr IV .Q24H [facility] Last Admin: 03/02/18 22:30 Dose: 40 mls/hr Meropenem/Sodium Chloride (Merrem Iv 500 Mg/Ns 50 Ml) 500 mg in 50 mls @ 12.5 mls/hr IVPB Q12 [facility]; Protocol Last Admin: 03/04/18 09:27 Dose: 12.5 mls/hr Pantoprazole Sodium (Protonix Ec Tab) 40 mg PO DAILY [facility] Last Admin: 03/04/18 09:21 Dose: 40 mg Polyethylene Glycol (Miralax) 17 gm PO DAILY [facility] Last Admin: 03/04/18 09:23 Dose: 17 gm Tramadol HCl (Ultram) 50 mg PO TID PRN PRN Reason: Pain, moderate (4-7) Last Admin: 03/04/18 02:42 Dose: 50 mg - Labs Labs: 03/04/18 06:30 03/04/18 06:30 PT 16.7 SECONDS (9.4-12.5) H 03/02/18 17:51 INR 1.45 03/02/18 17:51 APTT 25.2 Seconds (25.1-36.5) 03/02/18 17:51 - Constitutional Appears: Chronically Ill - Head Exam Head Exam: NORMAL INSPECTION - Respiratory Exam Respiratory Exam: Decreased Breath Sounds - Cardiovascular Exam Cardiovascular Exam: +S1, +S2 - GI/Abdominal Exam GI & Abdominal Exam: Soft. absent: Tenderness Assessment and Plan - Assessment and Plan (Free Text) Plan: Assessment consider UTI with ESBL E. coli S/P Severe sepsis R/O intra-abdominal infection atrial fibrillation COPD CAD chronic CHF renal cell cancer S/P nephrectomy lung cancer S/P lobectomy anxiety dementia Plan continue Merrem day 2 of 5-7 days repeat urine cx while on antibiotics are negative discussed with Dr. Farris
[2018-03-04] MEDS ORDERED: Albuterol-Ipratrop 3 mg / 0.5 (3 ml) UD IH STA (22:44)
[2018-03-04] MEDS ORDERED: MethylPREDNISolone 40 mg Vial IVP STA (23:03)
[2018-03-04] MEDS ORDERED: guaiFENesin DM 200 mg-20 mg/10 ml UD PO PRN (23:06)
[2018-03-04] MEDS ORDERED: Albuterol-Ipratrop 3 mg / 0.5 (3 ml) UD IH PRN (23:16)
[2018-03-04 23:27] VITALS: TEMP 98
[2018-03-04 23:35] LABS: ARTERIAL BLOOD GAS HCO3 21.9 mmol/L (21-28); ARTERIAL BLOOD GAS O2 SAT 95.2 % (95-98); ARTERIAL BLOOD GAS PCO2 37 mm/Hg (35-45); ARTERIAL BLOOD GAS PH 7.38 (7.35-7.45)
[2018-03-05] MEDS: Albuterol-Ipratrop 3 mg / 0.5 (3 ml) UD IH SCH ×4 (00:05→11:19)
[2018-03-05] MEDS: guaiFENesin-DM 600-30 mg ER Tab PO SCH ×2 (01:08→09:34)
[2018-03-05] MEDS ORDERED: MethylPREDNISolone 40 mg Vial IVP SCH (06:00)
[2018-03-05 08:17] LABS: HEMOGLOBIN 10.4 g/dL (12.0-16.0); MEAN CELL VOLUME 79.6 fl (80.0-105.0); MEAN CORPUSCULAR HEMOGLOBIN 24.4 pg (25.0-35.0); MEAN CORPUSCULAR HGB CONC 30.7 g/dl (31.0-37.0); MEAN PLATELET VOLUME 9.6 fl (7.0-11.0); RBC 4.26 10^6/uL (3.5-6.1); RED CELL DISTRIBUTION WIDTH 21.8 % (11.5-14.5); WHITE BLOOD COUNT 11.5 10^3/uL (4.5-11.0)
[2018-03-05 08:38] LABS: ALB/GLOB RATIO 0.8 (1.1-1.8); ALBUMIN 3.1 g/dL (3.0-4.8); CALCIUM 8.8 mg/dL (8.4-10.5)
[2018-03-05 08:48] VITALS: PULSE 59; RESP 20; O2SAT 94
[2018-03-05] MEDS: Pantoprazole 40 mg EC Tab PO SCH (09:34)
[2018-03-05] MEDS: diltiaZEM 180 mg/24 Hours CD Cap PO SCH (09:35)
[2018-03-05] MEDS: POLYETHYLENE GLYCOL 3350 17 GM/Dose PACKET PO SCH (09:36)
[2018-03-05] MEDS: MEROPENEM 500 MG in NS 500 MG/50 ML BAG IVPB SCH (09:36)
[2018-03-05 09:44] VITALS: BP 114/64
[2018-03-05] MEDS ORDERED: Sod Polystyrene Sulf 15 gm/60 ml Susp PO ONE (10:01)
--- NOTE | 2018-03-05 11:47 | DS ---
HISTORY OF PRESENT ILLNESS: She is resting comfortably in bed. She is on IV antibiotics for ESBL in the urine. She is being transferred today to the TCU to finish off the antibiotics and IV fluids, Aricept, aspirin, Cardizem, Colace, DuoNebs, Kayexalate, Lipitor, Merrem IV, MiraLax, guaifenesin, Norvasc, Protonix, Robitussin, Solu-Medrol, Ultram, and Xanax. PHYSICAL EXAMINATION: VITAL SIGNS: She has a 98 temperature, 59 pulse, 116/66 blood pressure, 20 respiratory rate, 94% O2 sat on room air. GENERAL: She is lying in bed. She slept well. She is eating okay. She is alert. She is pleasant. She is calm, good spirits. HEENT: Head is atraumatic, normocephalic. Throat is moist. NECK: Supple. HEART: Regular rate. LUNGS: Decreased breath sounds, but clear. ABDOMEN: Soft. EXTREMITIES: No edema. LABORATORY DATA: Being treated for ESBL in the urine, Escherichia coli. She has 11.5 white count, 10.4 hemoglobin, 33.9 hematocrit with 247 platelets. Sodium 135; potassium is 5.6, we get some Kayexalate; BUN is 34 better; creatinine 1.7 better; GFR is 29; sugar is 167; calcium is 8.8; total bili is 0.5. AST is 16, ALT is 18, alk phos 96, total protein 7, albumin is 3.1. Urine and moderate bacteria, negative for the flu. The patient is being seen by Infectious Disease. My only concern is that there is a Solu-Medrol order and then it was discontinued, must be a mistake from resident. No harm, no problems. We will get her to TCU today. We will check her labs tomorrow. She is here for ESBL in the urine. Marco Farris DO
--- NOTE | 2018-03-05 12:37 | RAD ---
Date of service: 03/04/2018 HISTORY: SOB COMPARISON: Chest radiograph dated 02/27/2018. FINDINGS: LUNGS: Stable chronic prominence of the bilateral interstitial markings with superimposed pulmonary vascular congestion. No focal consolidation or pleural effusion. PLEURA: No significant pleural effusion identified, no pneumothorax apparent. CARDIOVASCULAR: Right subclavian access pacemaker redemonstrated. Aortic atherosclerotic calcifications. Cardiomediastinal silhouette stably enlarged. OSSEOUS STRUCTURES: Unchanged. VISUALIZED UPPER ABDOMEN: Right upper quadrant surgical clips. OTHER FINDINGS: None. IMPRESSION: Pulmonary vascular congestion. No focal consolidation or pleural effusion.
--- NOTE | 2018-03-07 09:00 | PN ---
DATE: 03/05/2018 SUBJECTIVE: The patient seen earlier this morning in room 569. No fevers and no chills. No nausea. Doing well. PHYSICAL EXAMINATION: VITAL SIGNS: Temperature is 98, blood pressure is 114/60, respiratory of 18. HEENT: Unremarkable. NECK: Supple. LUNGS: Have decreased breath sounds. HEART: Normal S1, S2. ABDOMEN: Soft. LABORATORY EXAMINATION: Reveals a white count of 11,500, hemoglobin of 10, BUN of 34, creatinine of 1.7. Urinalysis is noted. Serology, influenza is negative. Microbiology: Blood cultures are negative. Urine cultures are negative. ASSESSMENT AND PLAN: An 82-year-old female with urinary tract infection with Extended-Spectrum Beta-Lactamase, status post severe sepsis, ____ intra-abdominal pressure, atrial fibrillation, coronary artery disease, on day #3 of meropenem, would complete in 5-7 days. We will follow closely with you. Jenaro Farias MD
== END 2018-03-05 13:17 | DRG 690 ==
LOC: ED 16:28 → ERH 18:12 → 5RNO 21:20
PROVIDERS: ADMIT Family Medicine; ATTEND Family Medicine
DX: N39.0 Urinary tract infection, site not specified (principal); I13.0 Hypertensive heart and chronic kidney disease with heart failure and stage 1 through stage 4 chronic kidney disease, or unspecified chronic kidney disease; I50.9 Heart failure, unspecified; N18.9 Chronic kidney disease, unspecified; B96.20 Unspecified Escherichia coli [E. coli] as the cause of diseases classified elsewhere; Z16.12 Extended spectrum beta lactamase (ESBL) resistance; F03.90 Unspecified dementia, unspecified severity, without behavioral disturbance, psychotic disturbance, mood disturbance, and anxiety; J44.9 Chronic obstructive pulmonary disease, unspecified; F41.9 Anxiety disorder, unspecified; I25.10 Atherosclerotic heart disease of native coronary artery without angina pectoris; I48.91 Unspecified atrial fibrillation; D64.9 Anemia, unspecified; K21.9 Gastro-esophageal reflux disease without esophagitis; Z90.5 Acquired absence of kidney; Z85.528 Personal history of other malignant neoplasm of kidney; Z85.118 Personal history of other malignant neoplasm of bronchus and lung; Z90.2 Acquired absence of lung [part of]; Z87.891 Personal history of nicotine dependence

== ENCOUNTER 2018-03-05 13:21 | Inpatient (IN) | payer OTHER, MEDICARE ==
[2018-03-05] MEDS ORDERED: Albuterol-Ipratrop 3 mg / 0.5 (3 ml) UD IH PRN (13:51)
[2018-03-05] MEDS ORDERED: guaiFENesin DM 200 mg-20 mg/10 ml UD PO PRN (13:51)
[2018-03-05 14:13] VITALS: BMI 20.9
[2018-03-05] MEDS: Sodium Chloride 0.45% 1,000 ML IV SCH (15:00)
[2018-03-05] MEDS: MethylPREDNISolone 40 mg Vial IVP SCH ×2 (15:00→22:29)
[2018-03-05] MEDS: Albuterol-Ipratrop 3 mg / 0.5 (3 ml) UD IH SCH ×2 (15:28→20:55)
[2018-03-05] MEDS: MEROPENEM 500 MG in NS 500 MG/50 ML BAG IVPB SCH (21:24)
[2018-03-05] MEDS: guaiFENesin-DM 600-30 mg ER Tab PO SCH (22:28)
[2018-03-06] MEDS: Albuterol-Ipratrop 3 mg / 0.5 (3 ml) UD IH SCH ×6 (01:58→19:52)
[2018-03-06] MEDS: Pantoprazole 40 mg EC Tab PO SCH (05:34)
[2018-03-06] MEDS: MethylPREDNISolone 40 mg Vial IVP SCH ×3 (05:35→19:32)
[2018-03-06 06:55] LABS: GRAN # 16.02 (1.4-6.5); GRAN % 96.5 % (50.0-68.0); LYMPH # 0.4 (1.2-3.4); LYMPH % 2.1 % (22.0-35.0); MEAN CELL VOLUME 78.6 fl (80.0-105.0); MEAN CORPUSCULAR HEMOGLOBIN 24.9 pg (25.0-35.0); MEAN CORPUSCULAR HGB CONC 31.6 g/dl (31.0-37.0); MEAN PLATELET VOLUME 9.5 fl (7.0-11.0); MONO # 0.2 (0.1-0.6); MONO % 1.4 % (1.0-6.0); PLATELET COUNT 203 10^3/uL (120.0-450.0); RBC 4.02 10^6/uL (3.5-6.1); RED CELL DISTRIBUTION WIDTH 21.7 % (11.5-14.5); WHITE BLOOD COUNT 16.6 10^3/uL (4.5-11.0)
[2018-03-06 07:31] LABS: ALB/GLOB RATIO 0.8 (1.1-1.8); ALBUMIN 3.2 g/dL (3.0-4.8); CALCIUM 8.9 mg/dL (8.4-10.5)
[2018-03-06 09:14] LABS: ATYPICAL LYMPHOCYTE 1 % (0.0-0.0); BAND 1 % (0-2); LYMPHOCYTE 2 % (22.0-35.0); MONOCYTE 3 % (1.0-6.0); NEUTROPHIL 93 % (50.0-70.0); NUCLEATED RED BLOOD CELL 1 %
[2018-03-06 09:16] LABS: HYPOCHROMIA SLIGHT; LARGE PLATELETS PRESENT; POLYCHROMASIA SLIGHT
[2018-03-06] MEDS: diltiaZEM 180 mg/24 Hours CD Cap PO SCH (10:13)
[2018-03-06] MEDS: MEROPENEM 500 MG in NS 500 MG/50 ML BAG IVPB SCH ×2 (10:14→21:33)
[2018-03-06] MEDS: guaiFENesin-DM 600-30 mg ER Tab PO SCH ×2 (10:16→21:39)
[2018-03-06] MEDS: POLYETHYLENE GLYCOL 3350 17 GM/Dose PACKET PO SCH (10:16)
--- NOTE | 2018-03-06 14:18 | CON ---
DATE OF CONSULTATION: 03/06/2018 The patient is seen earlier today in Room 321. CHIEF COMPLAINT: Weakness. HISTORY OF PRESENT ILLNESS: This is an 82-year-old female with past medical history of chronic obstructive lung disease, coronary artery disease, chronic congestive heart failure, renal cell cancer, history of nephrectomy, history of lung cancer, history of lobectomy, history of anxiety, dementia, history of ESBL E. coli in the urine on previous admission. This admission, the patient denied any dysuria or frequency. No back pain or suprapubic pain. She denied any fevers, any chills. PAST MEDICAL HISTORY: Significant for COPD, coronary artery disease, congestive heart failure, lung cancer, renal cell cancer, anxiety, dementia, and ESBL E. coli in the urine. The patient also with a history of anemia, GI bleed and pancreatitis. PAST SURGICAL HISTORY: Significant for nephrectomy and lobectomy. MEDICATIONS: Noted. ALLERGIES: THE PATIENT HAS NO KNOWN ALLERGIES. REVIEW OF SYSTEMS: A 12-point review of systems is performed. PHYSICAL EXAMINATION: VITAL SIGNS: The patient's temperature is 98, blood pressure is 112/70, respiratory rate 16. HEENT: Unremarkable. NECK: Supple. LUNGS: Decreased breath sounds. HEART: Normal S1, S2. ABDOMEN: Soft, nontender. No rebound or guarding. LABORATORY EXAMINATION: White count of 11,400, hemoglobin of 11, platelets of 259,000. BUN of 39, creatinine of 1.8. Imaging is noted. ASSESSMENT AND PLAN: This is an 82-year-old female with #1 is ESBL E. coli urinary tract infection, on meropenem, day #3 of 5-7 days and in a patient with chronic obstructive pulmonary disease, coronary artery disease, congestive heart failure, renal cancer. The patient's white count this morning is up to 16,600, creatinine of 1.9, and on meropenem 500 mg IV every 12 hours adjusted for renal disease. The patient is also on Solu-Medrol, which most likely is the cause of her leukocytosis. We will continue the meropenem. Case discussed with PMD. Jenaro Farias MD [facility] # [id number]
[2018-03-06] MEDS: Sodium Chloride 0.45% 1,000 ML IV SCH (14:28)
--- NOTE | 2018-03-06 19:31 | HP ---
DATE OF EXAM: 03/06/2018 SUBJECTIVE: I have known her for very long time. She was just in the hospital side. She has been transferred to the transitional care unit. Continue the IV antibiotics. She was discharged and we found to have a positive UTI with ESBL and she was called to come back for further IV antibiotics. This is an 82-year-old female who would do house chores on, difficult for her to walk around. She has a history of hypertension, diabetes, pacemaker, anxiety, quite chronic right lower extremity pain, anemia, COPD. She has had a nephrectomy. She has had syncope in the past. She wears glasses, renal disease. She had blood transfusions. She had sciatica, arthritis, back pain, falls, uses a cane. She has had rectal bleeding, gastroesophageal reflux disease, pancreatitis, anxiety. She is here for IV antibiotics. She has now moved to the transitional care unit to finish off the IV antibiotics. She is comfortable in bed. She is actually feeling better. No pain. FAMILY HISTORY: Unknown family history. SOCIAL HISTORY: Former smoker. No alcohol. No drugs. ALLERGIES: NO KNOWN DRUG ALLERGIES. REVIEW OF SYSTEMS: She is comfortable. She is eating well, understands the situation. No acute hearing or vision changes. No shortness of breath or cough. No abdominal pain. No problems urinating. No chest pains or palpitations. No bilateral lower extremity pain at this time. Skin for the most part is intact. No apparent rashes or ulcers. She is alert, comfortable, smiling, good spirits. No headaches. No dizziness. PHYSICAL EXAMINATION: VITAL SIGNS: She has temperature 97.7, pulse 61, blood pressure 119/62, respiratory rate 80, 95% sat on room air. HEENT: Head is atraumatic, normocephalic. Extraocular muscles intact. Pupils are equal and reactive to light and accommodation. Throat is moist. NECK: Supple. CARDIOPULMONARY: Regular rate. Normal S1, S2. LUNGS: Decreased breath sounds. Poor inspiration, but clear to auscultation. ABDOMEN: Soft, nontender. Positive bowel sounds. No guarding. No rebound or CVA tenderness. EXTREMITIES: Have no edema. She can move all four extremities. She is actually walking better with PT. NEUROLOGIC: GCS is 15. Cranial nerves II through XII grossly intact. Alert and oriented x3. SKIN: Warm and dry. No apparent ulcers or rashes appreciated. LYMPH NODES: Thyroid midline. No palpable appreciable lymphadenopathy. LABORATORY DATA: She has sodium of 136, potassium 4.2, BUN is 47, creatinine 1.9, on IV fluids. GFR is 25. Sugar is 169, calcium 8.9, total bili is 0.3, AST is 19, ALT is 17, alk phos 77, total protein 7, albumin is 3.2. She has white count 16.6, could be from the steroids, hemoglobin 10, hematocrit 31.6 with platelets 203. MEDICATIONS: She is on Norvasc, Aricept, aspirin, Cardizem, Colace, DuoNebs, Lipitor, Merrem, MiraLax, Mucinex, Protonix, guaifenesin, IV fluids, Solu-Medrol 40 down to 30 mg IV every 8, Ultram, Xanax. IMPRESSION: She has a consult with Infectious Disease. We will decrease steroids. We will check her labs tomorrow. Encourage with physical therapy also. She is getting the IV Merrem for the extended-spectrum beta-lactamases in the urine. Marco Farris DO [facility]
[2018-03-07] MEDS: Albuterol-Ipratrop 3 mg / 0.5 (3 ml) UD IH SCH ×8 (00:03→23:09)
[2018-03-07] MEDS: MethylPREDNISolone 40 mg Vial IVP SCH ×3 (03:38→17:29)
[2018-03-07] MEDS: Pantoprazole 40 mg EC Tab PO SCH (05:39)
[2018-03-07 08:12] LABS: HEMOGLOBIN 11.2 g/dL (12.0-16.0); MEAN CELL VOLUME 78.8 fl (80.0-105.0); MEAN CORPUSCULAR HEMOGLOBIN 24.8 pg (25.0-35.0); MEAN CORPUSCULAR HGB CONC 31.5 g/dl (31.0-37.0); RBC 4.52 10^6/uL (3.5-6.1); RED CELL DISTRIBUTION WIDTH 22.6 % (11.5-14.5)
[2018-03-07 08:31] LABS: ALB/GLOB RATIO 0.9 (1.1-1.8); ALBUMIN 3.7 g/dL (3.0-4.8); CALCIUM 9.5 mg/dL (8.4-10.5)
[2018-03-07] MEDS: diltiaZEM 180 mg/24 Hours CD Cap PO SCH (10:54)
[2018-03-07] MEDS: MEROPENEM 500 MG in NS 500 MG/50 ML BAG IVPB SCH ×2 (10:55→21:08)
[2018-03-07] MEDS: POLYETHYLENE GLYCOL 3350 17 GM/Dose PACKET PO SCH ×3 (10:56→11:08)
[2018-03-07] MEDS: guaiFENesin-DM 600-30 mg ER Tab PO SCH ×2 (10:57→21:08)
--- NOTE | 2018-03-07 12:05 | PN ---
DATE: 03/07/2018 SUBJECTIVE: She is resting comfortably in bed in the TCU. She is getting IV antibiotics for a positive ESBL in the urine. She is doing physical therapy. She is eating well, in good spirits. She is on Aricept, chewable aspirin, Cardizem, Colace, DuoNebs, Lipitor, Merrem IV, MiraLax, Mucinex, Norvasc, Protonix, Robitussin, IV fluids, Solu-Medrol 30 IV every 8 hours, I will drop it to 20, Ultram, and Xanax. PHYSICAL EXAMINATION: VITAL SIGNS: Temperature 97.7, 61 pulse, 121/58 blood pressure, 16 respiratory rate, 90% O2 sat on room air. HEENT: Head is atraumatic, normocephalic. HEART: Regular rate. LUNGS: Decreased breath sounds, but clear. ABDOMEN: Soft. EXTREMITIES: No edema. LABORATORY DATA: She has 21,000 white count, I am discontinuing the steroids, hemoglobin 11.2, hematocrit 35.6, and platelets are 242. Sodium 138, potassium 4.3, BUN 57, creatinine 1.8, GFR is 33, sugar is 135, calcium is 9.5, total bili is 0.3. AST is 24, ALT is 11, alk phos 86, total protein is 8. RECOMMENDATIONS: She has been seen by Infectious Disease. She has ESBL. She is on Merrem IV. Continue progressive treatment and care, watching her leukocytosis and I will decrease her Solu-Medrol. Marco Farris DO
--- NOTE | 2018-03-07 13:51 | CP.PCM.PN ---
Subjective - Date & Time of Evaluation Date of Evaluation: 03/07/18 Time of Evaluation: 11:05 - Subjective Subjective: Afebrile, non-toxic. Objective - Vital Signs/Intake and Output Vital Signs (last 24 hours): Temp Pulse Resp BP Pulse Ox 98.1 F 72 18 133/68 97 03/07/18 10:34 03/07/18 10:57 03/07/18 10:34 03/07/18 10:57 03/07/18 10:34 - Medications Medications: Current Medications Albuterol/Ipratropium (Duoneb 3 Mg/0.5 Mg (3 Ml) Ud) 3 ml IH Q2H PRN PRN Reason: Shortness of Breath Albuterol/Ipratropium (Duoneb 3 Mg/0.5 Mg (3 Ml) Ud) 3 ml IH [id number] [facility]; Protocol Last Admin: 03/07/18 11:27 Dose: 3 ml Alprazolam (Xanax) 0.25 mg PO TID PRN; Protocol PRN Reason: Anxiety Stop: 03/12/18 13:40 Last Admin: 03/06/18 22:16 Dose: 0.25 mg Amlodipine Besylate (Norvasc) 5 mg PO DAILY [facility]; Protocol Last Admin: 03/07/18 10:57 Dose: 5 mg Aspirin (Aspirin Chewable) 81 mg PO 0800 [facility]; Protocol Last Admin: 03/07/18 07:56 Dose: 81 mg Atorvastatin Calcium (Lipitor) 20 mg PO HS [facility]; Protocol Last Admin: 03/06/18 21:34 Dose: 20 mg Diltiazem HCl (Cardizem Cd) 180 mg PO DAILY [facility]; Protocol Last Admin: 03/07/18 10:54 Dose: 180 mg Docusate Sodium (Colace) 100 mg PO DAILY [facility]; Protocol Last Admin: 03/07/18 10:55 Dose: 100 mg Donepezil HCl (Aricept) 10 mg PO HS [facility]; Protocol Last Admin: 03/06/18 21:34 Dose: 10 mg Guaifenesin/Dextromethorphan (Mucinex-Dm 600-30 Mg) 1 tab PO Q12 [facility]; Protocol Last Admin: 03/07/18 10:57 Dose: 1 tab Guaifenesin/Dextromethorphan (Robitussin Dm) 10 ml PO Q4H [facility]; Protocol PRN Reason: Cough Sodium Chloride (Sodium Chloride 0.45%) 1,000 mls @ 40 mls/hr IV .Q24H [facility] Last Admin: 03/06/18 14:28 Dose: 40 mls/hr Meropenem/Sodium Chloride (Merrem Iv 500 Mg/Ns 50 Ml) 500 mg in 50 mls @ 100 mls/hr IVPB Q12 [facility]; Protocol Stop: 03/11/18 22:01 Last Admin: 03/07/18 10:55 Dose: 100 mls/hr Methylprednisolone (Solu-Medrol) 20 mg IVP Q8H [facility]; Protocol Last Admin: 03/07/18 10:00 Dose: 20 mg Pantoprazole Sodium (Protonix Ec Tab) 40 mg PO 0600 [facility]; Protocol Last Admin: 03/07/18 05:39 Dose: 40 mg Polyethylene Glycol (Miralax) 17 gm PO DAILY [facility]; Protocol Last Admin: 03/07/18 11:00 Dose: 17 gm Tramadol HCl (Ultram) 50 mg PO TID PRN; Protocol PRN Reason: Pain, moderate (4-7) Last Admin: 03/06/18 22:16 Dose: 50 mg - Labs Labs: 03/07/18 08:00 03/07/18 08:00 - Constitutional Appears: Chronically Ill - Head Exam Head Exam: NORMAL INSPECTION - ENT Exam ENT Exam: Mucous Membranes Moist - Neck Exam Neck Exam: absent: Meningismus - Respiratory Exam Respiratory Exam: Decreased Breath Sounds - Cardiovascular Exam Cardiovascular Exam: +S1, +S2 - GI/Abdominal Exam GI & Abdominal Exam: Soft. absent: Tenderness Assessment and Plan - Assessment and Plan (Free Text) Plan: Assessment consider UTI with ESBL E. coli S/P Severe sepsis R/O intra-abdominal infection atrial fibrillation COPD CAD chronic CHF renal cell cancer S/P nephrectomy lung cancer S/P lobectomy anxiety dementia Plan continue Merrem day 5 of 5-7 days repeat urine cx while on antibiotics are negative discussed with Dr. Farris previously
[2018-03-07] MEDS: Sodium Chloride 0.45% 1,000 ML IV SCH (13:59)
[2018-03-08] MEDS: MethylPREDNISolone 40 mg Vial IVP SCH ×2 (00:30→08:47)
[2018-03-08] MEDS: Albuterol-Ipratrop 3 mg / 0.5 (3 ml) UD IH SCH ×5 (04:00→21:33)
[2018-03-08] MEDS: Pantoprazole 40 mg EC Tab PO SCH (05:49)
[2018-03-08 07:02] LABS: HEMOGLOBIN 10.5 g/dL (12.0-16.0); MEAN CELL VOLUME 78.3 fl (80.0-105.0); MEAN CORPUSCULAR HEMOGLOBIN 24.8 pg (25.0-35.0); MEAN CORPUSCULAR HGB CONC 31.6 g/dl (31.0-37.0); RBC 4.24 10^6/uL (3.5-6.1); RED CELL DISTRIBUTION WIDTH 22.5 % (11.5-14.5); WHITE BLOOD COUNT 16.6 10^3/uL (4.5-11.0)
[2018-03-08 07:08] LABS: ALB/GLOB RATIO 0.9 (1.1-1.8); ALBUMIN 3.4 g/dL (3.0-4.8); CALCIUM 9.2 mg/dL (8.4-10.5)
[2018-03-08] MEDS: diltiaZEM 180 mg/24 Hours CD Cap PO SCH (09:28)
[2018-03-08] MEDS: guaiFENesin-DM 600-30 mg ER Tab PO SCH ×2 (09:28→21:18)
[2018-03-08] MEDS: POLYETHYLENE GLYCOL 3350 17 GM/Dose PACKET PO SCH (09:28)
[2018-03-08] MEDS: MEROPENEM 500 MG in NS 500 MG/50 ML BAG IVPB SCH ×2 (09:30→21:18)
--- NOTE | 2018-03-08 14:54 | PN ---
DATE: 03/08/2018 SUBJECTIVE: The patient is in bed, in no acute distress, nontoxic. No fevers. PHYSICAL EXAMINATION: VITAL SIGNS: On exam, temperature is 97, blood pressure is 154/80 and respiratory rate of 18. HEENT: Unremarkable. NECK: Supple. LUNGS: Have decreased breath sounds. HEART: Normal S1 and S2. ABDOMEN: Soft and nontender. LABORATORY DATA: Reveals that the patient has a white count of 16,000 and hemoglobin of 10. Chemistries reveals a BUN of 61 and creatinine of 1.8. ASSESSMENT AND PLAN: This is an 82-year-old female who appears to be comfortable, seen earlier with extended-spectrum beta-lactamases Escherichia coli urinary tract infection, chronic obstructive pulmonary disease, coronary artery disease, congestive heart failure on day #6 of meropenem would complete 5 to 7 days. Review of orders reveals the meropenem to be active. The patient is also on Solu-Medrol. Jenaro Farias MD
[2018-03-08] MEDS: Sodium Chloride 0.45% 1,000 ML IV SCH (15:20)
--- NOTE | 2018-03-08 19:45 | PN ---
DATE: 03/08/2018 SUBJECTIVE: She is resting comfortably in the TCU. She is eating all her food. She has pain every now and then. She is getting Tylenol and Motrin for the pain. She is on Aricept, aspirin, Cardizem, Colace, DuoNeb, Lipitor, Merrem, MiraLax, Mucinex, Norvasc, Protonix, Robitussin, IV fluids, Solu-Medrol, Tylenol, Ultram, and Xanax. PHYSICAL EXAMINATION: VITAL SIGNS: She has 97.5 temperature, 84 pulse, 150/82 blood pressure, 20 respiratory rate, 96% and O2 sat on nasal cannula. HEENT: Head is atraumatic and normocephalic. HEART: Regular rate. LUNGS: Clear to auscultation. ABDOMEN: Soft. EXTREMITIES: No edema. Presently weight, now she is not in any pain. LABORATORY DATA: White count 16.6, hemoglobin 10.5, hematocrit 33.2, and platelets are 231. Sodium 134, potassium 4.2, BUN is 51, creatinine 1.8, GFR is 27, sugar is 143, calcium is 9.2. Total bili is 0.4, AST is 25, ALT is 17, alk phos 84, and total protein is 7.2. ASSESSMENT AND PLAN: She is on intravenous antibiotics. She is on intravenous fluids. I am going to decrease the Solu-Medrol. I put her on prednisone. I will continue progressive treatment care. We will check her labs tomorrow. Marco Farris DO
[2018-03-09] MEDS: Albuterol-Ipratrop 3 mg / 0.5 (3 ml) UD IH SCH ×3 (00:32→21:10)
[2018-03-09] MEDS: Pantoprazole 40 mg EC Tab PO SCH (05:41)
[2018-03-09 06:54] LABS: ALB/GLOB RATIO 0.9 (1.1-1.8); ALBUMIN 3.3 g/dL (3.0-4.8); CALCIUM 9.2 mg/dL (8.4-10.5)
[2018-03-09 07:04] LABS: HEMOGLOBIN 10.7 g/dL (12.0-16.0); MEAN CELL VOLUME 78.5 fl (80.0-105.0); MEAN CORPUSCULAR HEMOGLOBIN 24.7 pg (25.0-35.0); MEAN CORPUSCULAR HGB CONC 31.5 g/dl (31.0-37.0); RBC 4.33 10^6/uL (3.5-6.1); RED CELL DISTRIBUTION WIDTH 22.5 % (11.5-14.5)
[2018-03-09] MEDS: guaiFENesin-DM 600-30 mg ER Tab PO SCH (09:06)
[2018-03-09] MEDS: POLYETHYLENE GLYCOL 3350 17 GM/Dose PACKET PO SCH (09:06)
[2018-03-09] MEDS: diltiaZEM 180 mg/24 Hours CD Cap PO SCH (09:14)
[2018-03-09] MEDS: MEROPENEM 500 MG in NS 500 MG/50 ML BAG IVPB SCH (09:16)
[2018-03-09] MEDS: Sodium Chloride 0.45% 1,000 ML IV SCH (14:48)
--- NOTE | 2018-03-09 15:34 | PN ---
DVATE: 03/09/2018 SUBJECTIVE: She is in transitional care unit. She is resting in bed. She slept well. She is eating well. She is doing well with the therapy. MEDICATIONS: She is on IV antibiotics, on Aricept, aspirin, cortisone, Colace, DuoNebs, Lipitor, Merrem IV, MiraLax, Mucinex, Norvasc, prednisone, I will decrease it to 20, Protonix, Robitussin, IV fluids, Tylenol, Ultram, and Xanax. PHYSICAL EXAMINATION: VITAL SIGNS: She has a 97.5 temperature, 65 pulse, 145/76 blood pressure, 19 respiratory rate, 95% O2 sat on nasal cannula. HEENT: Atraumatic, normocephalic. HEART: Regular rate. LUNGS: Clear to auscultation. ABDOMEN: Soft. EXTREMITIES: No edema. LABORATORY DATA: She has 15,000 white count, , 10.7 hemoglobin, 34 hematocrit with 227 platelets. Sodium 134, potassium 4.5, BUN 63, creatinine 1.9, GFR is 25, sugar is 118, calcium is 9.2, total bili 0.4. AST is 28, ALT is 27, alkaline phosphatase 85, total protein 7.2, albumin is 3.3. ASSESSMENT AND PLAN: She is being seen by Infectious Disease, started intravenous antibiotics and then decreased her steroids. Check her labs tomorrow. Pain medications as needed. I will continue with aggressive treatment and care on Sarah . Marco Farris DO [facility]
[2018-03-10] MEDS: Albuterol-Ipratrop 3 mg / 0.5 (3 ml) UD IH SCH ×6 (01:20→21:46)
--- NOTE | 2018-03-10 01:34 | PN ---
DATE: 03/09/2018 SUBJECTIVE: The patient is in bed, in no acute distress. PHYSICAL EXAMINATION: VITAL SIGNS: Temperature is 97, blood pressure is 130/70, respiratory rate 18. HEENT: Unremarkable. NECK: Supple. LUNGS: Have decreased breath sounds. HEART: Normal S1, S2. ABDOMEN: Soft, nontender. LABORATORY DATA: Laboratory examination reveals the patient's white count of 15,000, hemoglobin of 10, platelets of 227. Review of orders reveals the patient to be on meropenem and also on prednisone, tramadol. ASSESSMENT AND PLAN: This is an 82-year-old female who appears to be comfortable and seen earlier with extended-spectrum beta-lactamases Escherichia coli urinary tract infection, chronic obstructive lung disease, coronary artery disease, congestive heart failure, day #7 of meropenem with today is last dose. Jenaro Farias MD
[2018-03-10] MEDS: Pantoprazole 40 mg EC Tab PO SCH (05:40)
[2018-03-10 07:26] LABS: HEMOGLOBIN 10.8 g/dL (12.0-16.0); MEAN CELL VOLUME 77.9 fl (80.0-105.0); MEAN CORPUSCULAR HEMOGLOBIN 24.7 pg (25.0-35.0); MEAN CORPUSCULAR HGB CONC 31.7 g/dl (31.0-37.0); MEAN PLATELET VOLUME 9.5 fl (7.0-11.0); RBC 4.38 10^6/uL (3.5-6.1); RED CELL DISTRIBUTION WIDTH 22.3 % (11.5-14.5); WHITE BLOOD COUNT 17.3 10^3/uL (4.5-11.0)
[2018-03-10 07:41] LABS: ALB/GLOB RATIO 0.9 (1.1-1.8); ALBUMIN 3.2 g/dL (3.0-4.8)
[2018-03-10] MEDS: guaiFENesin-DM 600-30 mg ER Tab PO SCH ×2 (09:44→21:16)
[2018-03-10] MEDS: diltiaZEM 180 mg/24 Hours CD Cap PO SCH (09:44)
[2018-03-10] MEDS: POLYETHYLENE GLYCOL 3350 17 GM/Dose PACKET PO SCH (09:44)
--- NOTE | 2018-03-10 14:25 | PN ---
DATE: 03/10/2018 SUBJECTIVE: I saw Sarah Baker in Transitional Care Unit. She is resting comfortably in bed. She is getting her IV antibiotics. MEDICATIONS: She is on Aricept, aspirin, Cardizem, Colace, DuoNeb, Lipitor, MiraLax, Mucinex, Norvasc, prednisone, Protonix, Robitussin, IV fluids, Tylenol, Ultram and Xanax. I think the IV antibiotics were over. OBJECTIVE: VITAL SIGNS: She has a 97.9 temperature, 62 pulse, 140/80 blood pressure, 19 respiratory rate, 97% O2 sat on room air. HEENT: Head is atraumatic, normocephalic. HEART: Regular rate with decreased breath sounds. ABDOMEN: Soft. EXTREMITIES: No edema. LABORATORY DATA: She has a 17.3 white count, 10.8 hemoglobin, 34.1 hematocrit with 224 platelets. She has a 134 sodium, potassium 4.8, BUN 64, creatinine 1.7, GFR is 29, sugar is 93, calcium is 9, total bili is 0.4, AST is 31, ALT is 32, alk phos 74, total protein is 7. IMPRESSION AND PLAN: She is being seen by Infectious Disease. She was here for extended-spectrum beta-lactamases in the urine and she finished her IV antibiotics yesterday. She still has a few more days of physical therapy. I am decreasing his steroids. She is now on prednisone 20, I am going to decrease it to 10 today as well as probably the reason why the white count is elevated, I will check her labs tomorrow. Encourage her to get out of bed to chair, do physical therapy with the physical therapist and she was here for extended-spectrum beta-lactamases in the urine. Marco Farris DO
[2018-03-10] MEDS: Sodium Chloride 0.45% 1,000 ML IV SCH (14:56)
--- NOTE | 2018-03-10 15:42 | PN ---
DATE: 03/10/2018 SUBJECTIVE: The patient is in bed in no acute distress, nontoxic, however, she is feeling weak today. No nausea, no vomiting. PHYSICAL EXAMINATION: VITAL SIGNS: Temperature is 97, blood pressure is 150/70, respiratory rate of 18. HEENT: Unremarkable. NECK: Supple. LUNGS: Have decreased breath sounds. HEART: Normal S1, S2. ABDOMEN: Soft. LABORATORY DATA: Examination reveals a white count of 17,300, hemoglobin of 10. Chemistries reveals the LFTs are normal. Creatinine is 1.7. Review of microbiology is noted and review of orders reveals the patient to be on prednisone. ASSESSMENT AND PLAN: This is an 82-year-old female seen earlier today in Transitional Care, who is treated for extended spectrum beta-lactamase Escherichia coli urinary tract infection and has completed 7 days, now currently off of antibiotics. She does have leukocytosis most likely secondary to steroids, in a patient with coronary artery disease, congestive heart failure, now off of antibiotics. We will follow with you. She is at risk for developing nosocomial infections. Jenaro Farias MD
[2018-03-11] MEDS: Pantoprazole 40 mg EC Tab PO SCH (05:36)
[2018-03-11 06:50] LABS: HEMOGLOBIN 10.4 g/dL (12.0-16.0); MEAN CELL VOLUME 78.9 fl (80.0-105.0); MEAN CORPUSCULAR HEMOGLOBIN 24.6 pg (25.0-35.0); MEAN CORPUSCULAR HGB CONC 31.2 g/dl (31.0-37.0); MEAN PLATELET VOLUME 10.5 fl (7.0-11.0); RBC 4.22 10^6/uL (3.5-6.1); RED CELL DISTRIBUTION WIDTH 22.6 % (11.5-14.5)
[2018-03-11 07:48] LABS: ALB/GLOB RATIO 0.9 (1.1-1.8); CALCIUM 8.9 mg/dL (8.4-10.5)
[2018-03-11] MEDS ORDERED: Sod Polystyrene Sulf 15 gm/60 ml Susp PO ONE (08:14)
[2018-03-11] MEDS: Albuterol-Ipratrop 3 mg / 0.5 (3 ml) UD IH SCH ×6 (08:32→23:43)
[2018-03-11] MEDS: diltiaZEM 180 mg/24 Hours CD Cap PO SCH (10:02)
[2018-03-11] MEDS: POLYETHYLENE GLYCOL 3350 17 GM/Dose PACKET PO SCH (10:03)
[2018-03-11] MEDS: guaiFENesin-DM 600-30 mg ER Tab PO SCH ×2 (10:04→21:35)
--- NOTE | 2018-03-11 12:20 | PN ---
DATE: 03/11/2018 SUBJECTIVE: Sarah doing quite nicely in her TCU. She is walking better. She is improving. She is off IV antibiotics for ESBL in the urine. MEDICATIONS: She is on Aricept, aspirin, Cardizem, Colace, DuoNeb, Lipitor, MiraLax, Mucinex, Norvasc, prednisone it is down to 10 mg daily, Protonix, Robitussin, IV fluids, Tylenol, Ultram and Xanax. PHYSICAL EXAMINATION VITAL SIGNS: She has a 98 temperature, 82 pulse, 145/70 blood pressure, 20 respiratory rate and 90% O2 sat on nasal cannula. HEENT: Head is atraumatic and normocephalic. HEART: Regular rate. LUNGS: Decreased breath sounds, but clear. ABDOMEN: Soft. EXTREMITIES: No edema. GENERAL: She is smiling. She is happy. She is eating. She is doing well with physical therapy, hope that continues. LABORATORY DATA: She has 14,000 white count coming down as the steroids come down, hemoglobin 12.4, hematocrit 32.3, and platelets of 217. A 134 sodium, potassium is 5.6, we gave her Kayexalate 30 g, we will check her tomorrow, BUN is , creatinine 1.7, GFR is 29, sugar is 106, calcium is 8.9, total bilirubin 0.5, AST is 37, ALT is 44 and alkaline phosphatase 68. Check her labs tomorrow. Decrease her steroids. Gave her some Kayexalate. Marco Farris DO [facility]
--- NOTE | 2018-03-11 13:12 | CP.PCM.PN ---
Subjective - Date & Time of Evaluation Date of Evaluation: 03/11/18 Time of Evaluation: 10:50 - Subjective Subjective: Doing her physical therapy in bed, no fevers, not in distress. Objective - Vital Signs/Intake and Output Vital Signs (last 24 hours): Temp Pulse Resp BP Pulse Ox 98.0 F 71 20 115/61 98 03/11/18 06:00 03/11/18 10:05 03/11/18 06:00 03/11/18 10:05 03/11/18 06:00 - Medications Medications: Current Medications Acetaminophen (Tylenol 325mg Tab) 650 mg PO Q4H PRN PRN Reason: Pain, Mild (1-3) Last Admin: 03/11/18 05:35 Dose: 650 mg Albuterol/Ipratropium (Duoneb 3 Mg/0.5 Mg (3 Ml) Ud) 3 ml IH Q2H PRN PRN Reason: Shortness of Breath Albuterol/Ipratropium (Duoneb 3 Mg/0.5 Mg (3 Ml) Ud) 3 ml IH [id number] ISAI; Protocol Last Admin: 03/11/18 08:32 Dose: 3 ml Alprazolam (Xanax) 0.25 mg PO TID PRN; Protocol PRN Reason: Anxiety Stop: 03/12/18 13:40 Last Admin: 03/11/18 01:08 Dose: 0.25 mg Amlodipine Besylate (Norvasc) 5 mg PO DAILY ISAI; Protocol Last Admin: 03/11/18 10:05 Dose: 5 mg Aspirin (Aspirin Chewable) 81 mg PO 0800 ISAI; Protocol Last Admin: 03/11/18 07:58 Dose: 81 mg Atorvastatin Calcium (Lipitor) 20 mg PO HS ISAI; Protocol Last Admin: 03/10/18 21:17 Dose: 20 mg Diltiazem HCl (Cardizem Cd) 180 mg PO DAILY ISAI; Protocol Last Admin: 03/11/18 10:02 Dose: 180 mg Docusate Sodium (Colace) 100 mg PO DAILY ISAI; Protocol Last Admin: 03/11/18 10:02 Dose: 100 mg Donepezil HCl (Aricept) 10 mg PO HS ISAI; Protocol Last Admin: 03/10/18 21:16 Dose: 10 mg Guaifenesin/Dextromethorphan (Mucinex-Dm 600-30 Mg) 1 tab PO Q12 ISAI; Protocol Last Admin: 03/11/18 10:04 Dose: 1 tab Guaifenesin/Dextromethorphan (Robitussin Dm) 10 ml PO Q4H PRN; Protocol PRN Reason: Cough Sodium Chloride (Sodium Chloride 0.45%) 1,000 mls @ 40 mls/hr IV .Q24H ISAI Last Admin: 03/10/18 14:56 Dose: 40 mls/hr Pantoprazole Sodium (Protonix Ec Tab) 40 mg PO 0600 ISAI; Protocol Last Admin: 03/11/18 05:36 Dose: 40 mg Polyethylene Glycol (Miralax) 17 gm PO DAILY ISAI; Protocol Last Admin: 03/11/18 10:03 Dose: Not Given Prednisone (Prednisone Tab) 10 mg PO DAILY ISAI Last Admin: 03/11/18 10:06 Dose: 10 mg Tramadol HCl (Ultram) 50 mg PO TID PRN; Protocol PRN Reason: Pain, moderate (4-7) Last Admin: 03/11/18 01:07 Dose: 50 mg - Labs Labs: 03/11/18 06:20 03/11/18 06:30 - Constitutional Appears: Non-toxic, Chronically Ill - Head Exam Head Exam: NORMAL INSPECTION - Respiratory Exam Respiratory Exam: Decreased Breath Sounds - Cardiovascular Exam Cardiovascular Exam: +S1, +S2 - GI/Abdominal Exam GI & Abdominal Exam: Soft. absent: Tenderness Assessment and Plan - Assessment and Plan (Free Text) Plan: Assessment UTI with ESBL E. coli S/P treatment with antibiotics S/P Severe sepsis R/O intra-abdominal infection atrial fibrillation COPD CAD chronic CHF renal cell cancer S/P nephrectomy lung cancer S/P lobectomy anxiety dementia Plan continue to monitor off antibiotics since she is at risk for nosocomial infections discussed with Dr. Farris
[2018-03-11] MEDS: Sodium Chloride 0.45% 1,000 ML IV SCH ×2 (15:00→15:54)
[2018-03-12] MEDS: Albuterol-Ipratrop 3 mg / 0.5 (3 ml) UD IH SCH ×5 (04:11→19:34)
[2018-03-12] MEDS: Pantoprazole 40 mg EC Tab PO SCH (05:02)
[2018-03-12 07:39] LABS: HEMOGLOBIN 10.4 g/dL (12.0-16.0); MEAN CELL VOLUME 78.1 fl (80.0-105.0); MEAN CORPUSCULAR HEMOGLOBIN 24.2 pg (25.0-35.0); MEAN PLATELET VOLUME 10.4 fl (7.0-11.0); RBC 4.3 10^6/uL (3.5-6.1); RED CELL DISTRIBUTION WIDTH 22.9 % (11.5-14.5); WHITE BLOOD COUNT 13.4 10^3/uL (4.5-11.0)
[2018-03-12 08:09] LABS: ALB/GLOB RATIO 0.9 (1.1-1.8); ALBUMIN 3.1 g/dL (3.0-4.8)
[2018-03-12] MEDS ORDERED: Sod Polystyrene Sulf 15 gm/60 ml Susp PO ONE (09:56)
--- NOTE | 2018-03-12 10:56 | PN ---
DATE: 03/12/2018 SUBJECTIVE: Patient is in bed in no acute distress, nontoxic. No fevers and no chills. PHYSICAL EXAMINATION: VITAL SIGNS: Temperature is 98, blood pressure is 120/60, respiratory rate of 18. HEENT: Unremarkable. NECK: Supple. LUNGS: Have decreased breath sounds. HEART: Normal S1, S2. ABDOMEN: Soft. LABORATORY EXAMINATION: Reveals a white count of 13,400, hemoglobin of 10. BUN of 58, creatinine of 1.7. ASSESSMENT AND PLAN: This is an 82-year-old with urinary tract infection with extended-spectrum beta-lactamases Escherichia coli, status post treatment in a patient with chronic obstructive lung disease, coronary artery disease, congestive heart failure, lung cancer, renal cancer, lobectomy, nephrectomy, dementia, anxiety. Review of orders reveals the patient to be off of antibiotics, afebrile. We will follow with you. The patient is at risk for developing nosocomial infections. Jenaro Farias MD
[2018-03-12] MEDS: guaiFENesin-DM 600-30 mg ER Tab PO SCH ×2 (11:00→21:27)
[2018-03-12] MEDS: POLYETHYLENE GLYCOL 3350 17 GM/Dose PACKET PO SCH (11:01)
[2018-03-12] MEDS: diltiaZEM 180 mg/24 Hours CD Cap PO SCH (11:02)
--- NOTE | 2018-03-12 11:51 | PN ---
DATE: 03/12/2018 SUBJECTIVE: She is resting comfortably in bed in the Transitional Care Unit. She is actually doing well with physical therapy. MEDICATIONS: She is currently on Aricept, chewable aspirin, Cardizem, Colace, DuoNebs, Lipitor, MiraLax, Mucinex, Norvasc, prednisone 10, Protonix, Robitussin, IV fluids, Tylenol, Ultram and Xanax. PHYSICAL EXAMINATION: GENERAL: She is alert, smiling, happy. VITAL SIGNS: She has a 98.1 temperature, 84 pulse, 129/62 blood pressure, 14 respiratory rate, and 90% O2 sat. HEAD: Atraumatic, normocephalic. HEART: Regular rate. LUNGS: Decreased breath sounds but clear. ABDOMEN: Soft. EXTREMITIES: No edema. LABORATORY DATA: She has a 13.4 white count, it is coming down, 10.4 hemoglobin, 33.6 hematocrit with 251 platelets. She has a 136 sodium, potassium 5.5, we are going to give her more Kayexalate today, BUN is 58, creatinine is 1.7, GFR is 29, sugar is 85, calcium 9, total bili 0.5, AST is 26, ALT is 37, alk phos 25, total protein 6.6. RECOMMENDATIONS: Stopping the prednisone today, checking her labs tomorrow, giving her some Kayexalate. Hopefully, the potassium will drop. Physical therapy and discharge tomorrow. Marco Farris DO
[2018-03-12 16:16] VITALS: O2SAT 98
[2018-03-13] MEDS: Albuterol-Ipratrop 3 mg / 0.5 (3 ml) UD IH SCH ×5 (00:55→14:32)
[2018-03-13] MEDS: Pantoprazole 40 mg EC Tab PO SCH (05:17)
[2018-03-13 08:10] LABS: HEMOGLOBIN 10.7 g/dL (12.0-16.0); MEAN CELL VOLUME 78.6 fl (80.0-105.0); MEAN CORPUSCULAR HEMOGLOBIN 24.3 pg (25.0-35.0); MEAN CORPUSCULAR HGB CONC 30.9 g/dl (31.0-37.0); MEAN PLATELET VOLUME 10.1 fl (7.0-11.0); RBC 4.4 10^6/uL (3.5-6.1); RED CELL DISTRIBUTION WIDTH 22.7 % (11.5-14.5); WHITE BLOOD COUNT 11.5 10^3/uL (4.5-11.0)
[2018-03-13 08:27] LABS: ALB/GLOB RATIO 0.9 (1.1-1.8); ALBUMIN 3.3 g/dL (3.0-4.8); CALCIUM 8.9 mg/dL (8.4-10.5)
[2018-03-13] MEDS: guaiFENesin-DM 600-30 mg ER Tab PO SCH (09:35)
[2018-03-13] MEDS: diltiaZEM 180 mg/24 Hours CD Cap PO SCH (09:36)
[2018-03-13] MEDS: POLYETHYLENE GLYCOL 3350 17 GM/Dose PACKET PO SCH (09:36)
[2018-03-13 09:38] VITALS: BP 125/66
[2018-03-13 10:44] VITALS: PULSE 84; RESP 18
[2018-03-13 10:49] VITALS: TEMP 97.9
--- NOTE | 2018-03-13 11:31 | DS ---
HISTORY OF PRESENT ILLNESS: She is sitting up in bed. She is feeling well. She is ready to go home. I went over her medications with Aricept, aspirin, Cardizem, Colace, DuoNeb, Lipitor, MiraLax, Norvasc, Protonix, Ultram and Xanax. She will be seen on a house call on Wednesday. PHYSICAL EXAMINATION: VITAL SIGNS: She has a 98.1 temperature, 76 pulse, 123/63 blood pressure, 20 respiratory rate, 90% O2 sat. HEENT: Head: Atraumatic, normocephalic. HEART: Regular rate. LUNGS: Decreased breath sounds but clear. ABDOMEN: Soft. EXTREMITIES: No edema. She is walking better. She is doing better overall. LABORATORY DATA: She has 11.5 white count on the , 10.7 hemoglobin, 34.6 hematocrit with 274 platelets. She is definitely improving. She has a 137 sodium, potassium 4.6, BUN 44, creatinine 1.5 getting better. GFR is 33. Sugar is 89, calcium is 8.9, total bili is 0.7, AST 32, ALT 37, alk phos is 80, total protein 6.8. Overall, she is improved. She was being seen by Infectious Disease. She is being discharged today. She had an ESBL in the urine, COPD, low potassium. Maroc Farris DO
--- NOTE | 2018-03-14 03:50 | PN ---
DATE: 03/13/2018 SUBJECTIVE: Patient is seen in bed. No acute distress. PHYSICAL EXAMINATION: VITAL SIGNS: Temperature 97, blood pressure is 120/60, respiratory rate 16. HEENT: Unremarkable. NECK: Supple. LUNGS: Decreased breath sounds. HEART: Normal S1 and S2. ABDOMEN: Soft. LABORATORY DATA: Reviewed. ASSESSMENT: An 82-year-old female seen early this morning room 321 in transitional care with extended-spectrum beta-lactamases, Escherichia coli, status post treatment. Patient has chronic refractory lung disease, coronary artery disease, congestive heart failure, lung cancer, renal cancer, lobectomy, nephrectomy, dementia, off of antibiotics. The patient is to rule out for possible discharged today. Jenaro Farias MD
== END 2018-03-13 16:20 | disposition home health service (06) | DRG 690 ==
LOC: TRCU 13:21
PROVIDERS: ADMIT Family Medicine; ATTEND Family Medicine
PROC: F07Z9FZ Gait Training/Functional Ambulation Treatment using Assistive, Adaptive, Supportive or Protective Equipment (ICD-10-PCS; principal; 2018-03-07)
PROC: F07Z5ZZ Bed Mobility Treatment (ICD-10-PCS; 2018-03-07)
PROC: F07Z8ZZ Transfer Training Treatment (ICD-10-PCS; 2018-03-07)
PROC: F07L6YZ Therapeutic Exercise Treatment of Musculoskeletal System - Lower Back / Lower Extremity using Other Equipment (ICD-10-PCS; 2018-03-07)
PROC: F08Z1FZ Dressing Techniques Treatment using Assistive, Adaptive, Supportive or Protective Equipment (ICD-10-PCS; 2018-03-07)
PROC: F08Z2ZZ Grooming/Personal Hygiene Treatment (ICD-10-PCS; 2018-03-07)
PROC: F08Z0FZ Bathing/Showering Techniques Treatment using Assistive, Adaptive, Supportive or Protective Equipment (ICD-10-PCS; 2018-03-08)
DX: N39.0 Urinary tract infection, site not specified (principal); B96.20 Unspecified Escherichia coli [E. coli] as the cause of diseases classified elsewhere; Z16.12 Extended spectrum beta lactamase (ESBL) resistance; I11.0 Hypertensive heart disease with heart failure; I50.9 Heart failure, unspecified; I48.91 Unspecified atrial fibrillation; I25.10 Atherosclerotic heart disease of native coronary artery without angina pectoris; F03.90 Unspecified dementia, unspecified severity, without behavioral disturbance, psychotic disturbance, mood disturbance, and anxiety; E11.9 Type 2 diabetes mellitus without complications; K21.9 Gastro-esophageal reflux disease without esophagitis; J44.9 Chronic obstructive pulmonary disease, unspecified; F41.9 Anxiety disorder, unspecified; M19.90 Unspecified osteoarthritis, unspecified site; M54.30 Sciatica, unspecified side; D72.829 Elevated white blood cell count, unspecified; T38.0X5A Adverse effect of glucocorticoids and synthetic analogues, initial encounter; N28.9 Disorder of kidney and ureter, unspecified; Z85.118 Personal history of other malignant neoplasm of bronchus and lung; Z85.528 Personal history of other malignant neoplasm of kidney; Z90.5 Acquired absence of kidney; Z90.2 Acquired absence of lung [part of]; Z87.891 Personal history of nicotine dependence

== ENCOUNTER 2018-03-20 01:48 | Inpatient (IN) | payer MEDICARE ==
[2018-03-20 01:48] VITALS: PULSE 45
[2018-03-20 01:51] VITALS: BMI 20.6
--- NOTE | 2018-03-20 02:15 | ED PDOC ---
Arrival/HPI - General Chief Complaint: Lower Extremity Problem/Injury Time Seen by Provider: 03/20/18 01:51 Historian: Patient - History of Present Illness Narrative History of Present Illness (Text): 03/20/18 02:11 Sarah Baker is an 82 year old female, whose past medical history includes atrial fibrillation, hypertension, diabetes, CAD, CHF, COPD renal cell cancer s/p nephrectomy, lung cancer s/p lobectomy, anxiety, chronic right lower extremity pain, and anemia, who presents to the Emergency department brought in by EMS complaining of shortness of breath. Patient states she has been experiencing shortness of breath tonight with associated bilateral lower extremity swelling. Patient also reports subjective fever. Patient denies any chest pain, nausea, vomiting, diarrhea, urinary symptoms, back pain, neck pain, headache, dizziness, or any other complaints. Symptom Onset: Gradual Symptom Course: Unchanged Activities at Onset: Light Context: Home Past Medical History - Provider Review Nursing Documentation Reviewed: Yes - Infectious Disease Hx of Infectious Diseases: None - Tetanus Immunization Tetanus Immunization: >10 years Ago - Cardiac Hx Cardiac Disorders: Yes Hx Hypertension: Yes - Pulmonary Hx Chronic Obstructive Pulmonary Disease (COPD): Yes - Neurological Hx Neurological Disorder: Yes Hx Dementia: Yes Hx Dizziness: Yes (SYNCOPE) - HEENT Hx HEENT Disorder: Yes (glasses) - Renal Hx Renal Disorder: Yes Hx Renal Cancer: (pt denies) Other/Comment: r nephrectomy - Endocrine/Metabolic Hx Endocrine Disorders: No - Hematological/Oncological Hx Blood Disorders: Yes Hx Anemia: Yes (blood transfusions) Hx Cancer: No - Integumentary Hx Dermatological Disorder: Yes - Musculoskeletal/Rheumatological Hx Arthritis: Yes - Gastrointestinal Hx Gastrointestinal Disorders: Yes (rectal bleeding) Hx Gastroesophageal Reflux: Yes Hx Pancreatitis: Yes - Genitourinary/Gynecological Hx Genitourinary Disorders: No Hx Reproductive Disorders: No - Psychiatric Hx Psychophysiologic Disorder: Yes Hx Anxiety: Yes Hx Substance Use: No - Surgical History Hx Mastectomy: No Other/Comment: r nephrectomy - Anesthesia Hx Anesthesia: Yes Hx Anesthesia Reactions: No Hx Malignant Hyperthermia: No Family/Social History - Physician Review Nursing Documentation Reviewed: Yes Family/Social History: Unknown Family HX Smoking Status: Former Smoker Hx Alcohol Use: No Hx Substance Use: No Allergies/Home Meds Allergies/Adverse Reactions: Allergies No Known Allergies Allergy (Verified 03/20/18 01:51) Home Medications: Home Meds Medication Instructions Recorded Confirmed Apixaban [Eliquis] 2.5 mg PO DAILY 03/20/18 03/20/18 Review of Systems - Physician Review All systems were reviewed & negative as marked: Yes - Review of Systems Constitutional: Fevers Eyes: Normal ENT: Normal Respiratory: SOB Cardiovascular: Normal Gastrointestinal: Normal. absent: Abdominal Pain, Diarrhea, Nausea, Vomiting Genitourinary Female: Normal. absent: Dysuria, Frequency, Hematuria, Urine Output Changes Musculoskeletal: Other (+bilateral lower extremity swelling) Skin: Normal. absent: Rash Neurological: Normal. absent: Headache, Dizziness Endocrine: Normal Hemo/Lymphatic: Normal Psychiatric: Normal Physical Exam Vital Signs Reviewed: Yes Vital Signs Temp Pulse Resp BP Pulse Ox 03/20/18 01:59 100.7 F H 82 20 142/81 93 L Temperature: Febrile Blood Pressure: Normal Pulse: Regular Respiratory Rate: Normal Appearance: Positive for: Well-Appearing, Non-Toxic Pain Distress: None Mental Status: Positive for: Alert and Oriented X 3 - Systems Exam Head: Present: Atraumatic, Normocephalic Pupils: Present: PERRL Extroacular Muscles: Present: EOMI Conjunctiva: Present: Normal Mouth: Present: Moist Mucous Membranes Neck: Present: Normal Range of Motion Respiratory/Chest: Present: Rales (Rales at the bases). No: Respiratory Distress, Accessory Muscle Use Cardiovascular: Present: Regular Rate and Rhythm, Normal S1, S2. No: Murmurs Abdomen: No: Tenderness, Distention, Peritoneal Signs Back: Present: Normal Inspection Upper Extremity: Present: Normal Inspection. No: Cyanosis, Edema Lower Extremity: Present: Edema (bilateral 1+ pitting edema), NORMAL PULSES, Normal ROM Neurological: Present: GCS=15, CN II-XII Intact, Speech Normal Skin: Present: Warm, Dry, Normal Color. No: Rashes Psychiatric: Present: Alert, Oriented x 3, Normal Insight, Normal Concentration Medical Decision Making ED Course and Treatment: 03/20/18 02:12 Impression: 82 year old female complaining of shortness of breath, bilateral lower extremity swelling, and fever. Plan: -- EKG -- Chest X-ray -- US Duplex Lower Extremities -- Labs, VBG, cardiac enzymes, BNP, blood cultures -- Urinalysis, urine cultures -- Duoneb -- Tylenol -- Reassess and disposition Prior Visits: Notes and results from previous visits were reviewed. Progress Notes: Reviewed EKG, 100% paced rhythm. 03/20/18 03:56 US Duplex Lower Extremities preliminary read negative for DVT. 03/20/18 04:05 Chest X-ray reviewed, shows increased pulmonary vascular markings and questionable left-sided infiltrate. 03/20/18 04:[address] Farris, who is aware and agrees with plan. Accepts pt in to his service. Pt will be admitted to Telemetry for CHF and pneumonia. Requests Dr. Farias, Dr. Fonseca, and Dr. Smith on consult. - Lab Interpretations I have reviewed the lab results: Yes - RAD Interpretation Communications Associate: ED Physician, Radiologist - EKG Interpretation Interpreted by ED Physician: Yes Type: 12 lead EKG - Scribe Statement The provider has reviewed the documentation as recorded by the Scribe Cata Mckee Provider Scribe Attestation: All medical record entries made by the Scribe were at my direction and personally dictated by me. I have reviewed the chart and agree that the record accurately reflects my personal performance of the history, physical exam, medical decision making, and the department course for this patient. I have also personally directed, reviewed, and agree with the discharge instructions and disposition. Disposition/Present on Arrival - Present on Arrival Any Indicators Present on Arrival: No History of DVT/PE: No History of Uncontrolled Diabetes: No Urinary Catheter: No History of Decub. Ulcer: No History Surgical Site Infection Following: None - Disposition Have Diagnosis and Disposition been Completed?: Yes Diagnosis: CHF (congestive heart failure), Pneumonia Disposition: HOSPITALIZED Disposition Time: 04:04 Patient Problems: Current Active Problems Problem Status Onset CHF (congestive heart failure) Acute Pneumonia Acute Condition: STABLE
[2018-03-20] MEDS ORDERED: Albuterol-Ipratrop 3 mg / 0.5 (3 ml) UD IH STA (02:18)
[2018-03-20 03:01] LABS: VENOUS BLOOD GAS BASE EXCESS 1.7 mmol/L (0.0-2.0); VENOUS BLOOD GAS PO2 175 mm/Hg (30-55); VENOUS BLOOD PH 7.44 (7.32-7.43)
[2018-03-20 03:04] LABS: HEMOGLOBIN 9.3 g/dL (12.0-16.0); MEAN CELL VOLUME 80.9 fl (80.0-105.0); MEAN CORPUSCULAR HEMOGLOBIN 24.7 pg (25.0-35.0); MEAN CORPUSCULAR HGB CONC 30.6 g/dl (31.0-37.0); MEAN PLATELET VOLUME 9.4 fl (7.0-11.0); RBC 3.76 10^6/uL (3.5-6.1); RED CELL DISTRIBUTION WIDTH 23.9 % (11.5-14.5)
[2018-03-20 03:08] LABS: INR 1.42; PARTIAL THROMBOPLASTIN TIME 31.2 Seconds (25.1-36.5); PROTHROMBIN TIME 16.3 SECONDS (9.4-12.5)
[2018-03-20 03:23] LABS: TROPONIN I 0.08 ng/mL
[2018-03-20] MEDS ORDERED: cefTRIAXone 1 gm 1 GM/100 ML BAG IV STA (03:59)
[2018-03-20] MEDS ORDERED: Azithromycin 500MG/NS 250ml 500 MG/250 ML BAG IV STA (03:59)
[2018-03-20 04:01] LABS: ALBUMIN 3.4 g/dL (3.0-4.8); CALCIUM 9.1 mg/dL (8.4-10.5)
[2018-03-20] MEDS ORDERED: Albuterol-Ipratrop 3 mg / 0.5 (3 ml) UD IH PRN ×2 (04:06→10:58)
[2018-03-20] MEDS ORDERED: Potassium Chloride 20 mEq ER Tab PO STA (04:07)
[2018-03-20 08:05] LABS: PH,URINE 6.5 (4.7-8.0); URINE BILIRUBIN NEGATIVE (NEGATIVE); URINE BLOOD TRACE-LYSED (NEGATIVE); URINE GLUCOSE (UA) NEGATIVE (NEGATIVE); URINE LEUKOCYTE ESTERASE TRACE Leu/uL (NEGATIVE); URINE PROTEIN 30 mg/dL (<30 mg/dL); URINE UROBILINOGEN 0.2 E.U./dL (<1 E.U./dL)
[2018-03-20 08:32] LABS: URINE APPEARANCE CLEAR (CLEAR); URINE COLOR LIGHT YELLOW (YELLOW)
[2018-03-20 08:49] LABS: URINE BACTERIA FEW /hpf
--- NOTE | 2018-03-20 10:23 | RAD ---
Date of service: 03/20/2018 HISTORY: Fever. COMPARISON: 03/04/2018. FINDINGS: LUNGS: Pulmonary vascular congestion. PLEURA: Left pleural effusion inseparable from alveolar consolidative change. CARDIOVASCULAR: Atherosclerotic calcifications identified primarily aortic arch. Pulmonary vascular congestion/pulmonary edema identified. Cardiomegaly. Position/ configuration of pacemaker Satisfactory. OSSEOUS STRUCTURES: No significant abnormalities. VISUALIZED UPPER ABDOMEN: Normal. OTHER FINDINGS: None. IMPRESSION: Progressive pulmonary edema. New left pleural effusion.
[2018-03-20] MEDS: Meropenem IV 1 gm in NS 1 GM/50 ML BAG IVPB SCH ×2 (12:57→21:15)
--- NOTE | 2018-03-20 13:00 | HP ---
DATE OF EXAM: 03/20/2018 HISTORY OF PRESENT ILLNESS: I know Sarah Baker very well from house calls and hospital and I saw her this morning in the emergency room at [facility]. She is an 82-year-old female who presents to the emergency room for an EMS with shortness of breath. She has bilateral lower leg swelling for a possible she has not been taking the medications correctly, it has been ongoing swann with me with her. I have been in numerous times and nurses come to setup her medications and she does not always follow through. She is little bit stubborn in that regard. She is an 80-year-old female who has got a past medical history of atrial fibrillation, hypertension, diabetes, CAD, CHF, COPD, renal cancer, status post nephrectomy, lung cancer, status post lobectomy and anxiety, chronic lower extremity pain, and anemia. Now, she has edema. No shortness of breath, very possible she did not take her medications, COPD, dementia, syncope and she wears glasses. Right nephrectomy. She had blood transfusions, arthritis. She has rectal bleeding. She had reflux, pancreatitis, anxiety. FAMILY HISTORY: Unknown family history. SOCIAL HISTORY: Former smoker. No alcohol or drugs. ALLERGIES: NO KNOWN DRUG ALLERGIES. MEDICATIONS: Always says here that she is taking Eliquis, but she is supposed to be on Lasix and about eight other medications that she did not tell anybody about. REVIEW OF SYSTEMS: No acute vision changes or hearing changes. No sore throat. No chest pain. There is some shortness of breath and leg edema. No abdominal pain. No nausea, vomiting, constipation, diarrhea. No skin issues that she knows of. PHYSICAL EXAMINATION: GENERAL: She is well appearing, a little bit short of breath, on oxygen. Alert and oriented x3. VITAL SIGNS: Her temperature is 100.7, 82 pulse, 20 respiratory rate, 142/82 blood pressure, 93% O2 sat. HEENT: Head is atraumatic, normocephalic. Extraocular muscles intact. Pupils equal, reactive to light. Throat is moist. NECK: Supple. HEART: Regular rate. Normal S1, S2. LUNGS: Rales at the bases bilaterally. Decreased breath sounds. Poor inspiration. ABDOMEN: Soft, nontender. Positive bowel sounds. No guarding, no rebound or CVA tenderness. EXTREMITIES: +1/4 pitting edema bilateral lower extremities half way up to the knee. GCS 15. NEUROLOGIC: Cranial nerves II-XII grossly intact. Speech is normal. Swollen ankles and half way up to the knee. Alert and oriented x3 at this time. SKIN: Warm and dry. LYMPH: Thyroid midline. No palpable appreciable lymphadenopathy. LABORATORY DATA: She had multiple tests done. She had a chest x-ray which shows pulmonary vascular congestion, pulmonary edema, new left pleural effusion. She has urine which showed few 147 sodium, potassium 3.5, replace potassium, BUN 19, creatinine 1.4, GFR is 36, sugar is 117, calcium is 9.1, total bili is 0.5. AST is 34, ALT is 47, alk phos 132, lactate dehydrogenase is 749. Troponin I 0.08 which is indeterminate. The BNP is very high at 6160. She needs to be diuresed, total protein 6.9. Lactate was 0.8, pH was 7.44. INR is 1.4. The white count was elevated at 12, hemoglobin 9.3, hematocrit 30.4, platelets of 326. She has been put in the hospital for a CHF, pneumonia, edema, weakness, consults with Infectious Disease, Pulmonary and Cardiology. She gets physical therapy, oxygen. Hopefully, she will improve by doing lower extremity Dopplers and we will watch her very closely. Marco Farris DO [facility]
--- NOTE | 2018-03-20 16:39 | NM ---
Date of service: 03/20/2018 COMPARISON: 02/12/2015 and 08/28/2016 serial ventilation perfusion scans. March 20, 2018 single-view chest TECHNIQUE: 31.0 mCi technetium 99-m DTPA aerosol. 3.9 mCI technetium 99-m MAA administered intravenously. FINDINGS: VENTILATION COMPONENT: Markedly heterogeneous ventilation consistent with findings on concurrent chest x-ray. PERFUSION COMPONENT: Heterogeneous distribution of radionuclide. No geographic, segmental, lobar abnormalities apparent on the present examination. Incidental finding(s): Photon deficient area overlying the periphery of the right lung consistent with pacemaker battery pack. IMPRESSION: Low probability ventilation perfusion scan for pulmonary embolism.
[2018-03-20] MEDS: Pantoprazole 40 mg EC Tab PO SCH (17:18)
--- NOTE | 2018-03-20 19:13 | CON ---
DATE OF CONSULTATION: 03/20/2018 The patient is seen earlier today in the emergency room. CHIEF COMPLAINT: Weakness for several days. HISTORY OF PRESENT ILLNESS: This is an 82-year-old female with a history of atrial fibrillation, hypertension, diabetes, congestive heart failure, chronic obstructive lung disease, renal cell cancer, history of nephrectomy, history of lung cancer, history of lobectomy, the patient also with anxiety, chronic lower extremity pain, history of anemia and was admitted because of shortness of breath and weakness. She has been complaining of shortness of breath x1 day duration associated with lower extremity swelling and the patient was recently hospitalized. PAST MEDICAL HISTORY: Significant for chronic obstructive lung disease, chronic congestive heart failure, renal cancer, lung cancer, anxiety, chronic lower extremity pain and edema, the patient had ESBL E. coli urinary tract infection previously, coronary artery disease, diabetes, hypertension, atrial fibrillation. PAST SURGICAL HISTORY: Significant for nephrectomy and lobectomy. MEDICATIONS AT HOME: Reviewed and include Eliquis Ultram, Norvasc, MiraLax, Protonix. ALLERGIES: THE PATIENT HAS NO KNOWN ALLERGIES. REVIEW OF SYSTEMS: A 12-point review of system is performed and reveals the patient has not had any fevers, any chills, any chest pain. No dysuria or frequency. No abdominal pain or diarrhea or constipation. PHYSICAL EXAMINATION: GENERAL: The patient is in bed. VITAL SIGNS: Temperature of 100.7, heart rate of 82, respiratory rate of 20, blood pressure is 160/70. The patient is saturating at 93% on room air. HEENT: Unremarkable. NECK: Supple. LUNGS: Decreased breath sounds. HEART: Normal S1, S2. ABDOMEN: Soft, nontender. No rebound or guarding. LABORATORY EXAMINATION: White count of 12,000. Coagulation is noted. Chemistries are noted with a creatinine of 1.7. The patient has had renal insufficiency. Last creatinine last admission on 03/13/2018 was 1.5. Urinalysis is unremarkable. The patient had a chest x-ray, the official report is not available. The patient also had lower extremity ultrasound, also the official report is not available. Review of the x-ray reveals a questionable lower lobe infiltrate; however, again the official report is not available. Emergency room chart by Dr. See Delgado is reviewed. No other information is available at this time. ASSESSMENT/PLAN: This is an 82-year-old female with presenting with: 1. Fever of 100.7 with hypoxia and mild leukocytosis. 2. Acute diastolic congestive heart failure on top of chronic congestive heart failure. 3. Bilateral healthcare-associated pneumonia and a recent fever of 100.7. Blood cultures and urine cultures have been ordered. We will order sputum cultures, MRSA screen, procalcitonin, and urine Legionella antigen. We will treat the patient with meropenem and doxycycline. The patient did have ESBL E. coli in the urine in 02/2018, and pending panculture, initial workup and initial clinical response and panculture results, we will follow with you. Pending pancultures, urine culture, blood culture, sputum culture, nasal MRSA screen, and Legionella procalcitonin, we will treat with doxycycline and meropenem, discontinue the ceftriaxone and aztreonam and we will check on the chest x-ray results and we will make further recommendations. Jenaro Farias MD
--- NOTE | 2018-03-20 20:02 | CON ---
DATE OF CONSULTATION: 03/20/2018 HISTORY OF PRESENT ILLNESS: The patient is an 82-year-old female with past history of atrial fibrillation, hypertension, coronary artery disease, congestive heart disease, chronic obstructive pulmonary disease, renal cell carcinoma, status post nephrectomy, lung cancer, status post lumpectomy, and now presents with chronic right lower extremity pain. She is awaiting venous Dopplers of the lower extremities. The patient has had shortness of breath for several days. Etiology remains unclear. Must rule out DVT and pulmonary embolism due to the fact that the patient had a nephrectomy and has chronic renal insufficiency. I would not like to do a helical CT with dye, but do a VQ first and make sure that there is no underlying pulmonary embolism. PAST HISTORY: As described above. SOCIAL HISTORY: Former smoker. No occupational exposure. No travel history. HOME MEDICATIONS: Other than Eliquis are unknown. ALLERGIES: NO KNOWN ALLERGIES. REVIEW OF SYSTEMS: Status post nephrectomy, COPD, the diagnosis is unclear. Long discussion with the patient. She is awake and alert and oriented and a relatively good historian, very pleasant and easy to talk to, anxious to health. PHYSICAL EXAMINATION: GENERAL: The patient is resting comfortably, in no acute distress, in the emergency room. VITAL SIGNS: Temperature of 101, pulse of 80, respiratory rate of 18, blood pressure 140/80, pulse ox 96% on supplemental oxygen. HEENT: Normocephalic, atraumatic. Eyes: PERRL. EOMs full. Conjunctivae pink. NECK: Supple. No JVD. No bruit. No mass. CARDIOVASCULAR: Regular rhythm. S1 and S2, tachycardic. No murmur, gallop or rub. CHEST: Bilateral rales throughout. No wheezing noted. ABDOMEN: Soft. Bowel sounds normoactive. EXTREMITIES: No clubbing or cyanosis. There is edema noted in both legs with some mild tenderness. SKIN: Warm with no rash or excoriation. Lymphadenopathy is not present. PSYCHIATRIC: The patient is awake, alert, oriented. DIAGNOSTIC DATA: Chest x-ray shows pulmonary vascular congestion, cannot exclude underlying infiltrate. LABORATORY DATA: White count of 12,000, hemoglobin 9, hematocrit 30.4. PT of 16. ABG, on 21% oxygen, pH 7.44, pCO2 of 38, pO2 of 175. Chemistries: Potassium 3.5, BUN 19, creatinine 1.4. BNP 6960. CLINICAL IMPRESSION: 1. Congestive heart failure. 2. Rule out underlying pneumonia. 3. Leg pain, rule out deep vein thrombosis. 4. Rule out pulmonary embolism. PLAN: The patient should continue on inhaled bronchodilators and corticosteroids. Further diuresis is in order. Cardiac evaluation is essential. Monitor BNP. Continue diuresis and assess etiology. A venous Doppler has already been ordered. I will add a V/Q scan. I am weary of doing a helical CT with dye because of the patient's status post nephrectomy status. We will do a V/Q to look for signs of pulmonary embolism, although it is unlikely in a well-anticoagulated patient. We will follow closely with you and decide on the need for further intervention based on clinical status. Thank you for the opportunity to care for this patient. Matt Clifton MD
--- NOTE | 2018-03-20 21:12 | CON ---
DATE OF CONSULTATION: 03/20/2018 The patient is in Room 267, Bed 2. This consultation is being done on behalf of Dr. Fonseca whom we are covering. REASON FOR CONSULTATION: Shortness of breath, CHF. HISTORY OF PRESENT ILLNESS: The patient is an 82-year-old -English female, known case of CHF, hypertension, pulmonary hypertension, hypercholesterolemia, chronic atrial fibrillation, history of renal CA, history of lung CA, admitted with that these last several days she is getting swelling of legs and shortness of breath. The patient seemed to be poor compliant patient, not definite that she was taking all the medications regularly. The patient denies any chest pain or palpitations at present. The patient also had COPD, anemia, history of GI bleeding, status post permanent pacemaker insertion, renal insufficiency, history of hypertension and pulmonary hypertension, hyperlipidemia. PAST MEDICAL HISTORY: As mentioned above with history of CHF, COPD, severe pulmonary hypertension, systemic hypertension, status post pacemaker insertion, history of atrial fibrillation, hyperlipidemia, anemia, history of GI bleeding, history of lung cancer, history of nephrectomy for renal mass. PERSONAL HISTORY: Denies smoking, denies alcohol abuse. ALLERGIES: NO KNOWN ALLERGIES. REVIEW OF SYSTEMS: All systems reviewed, positives mentioned in the history. RECENT CARDIAC WORKUP: The patient had echocardiogram done on 03/20/2017 that showed ejection fraction of 56%, [id number] mitral regurgitation, severe tricuspid regurgitation, severe pulmonary hypertension with RVSP calculated at 105 mmHg. The patient's EKG showed it is flutter with pacemaker rhythm. Chest x-ray showed CHF with left pleural effusion. PHYSICAL EXAMINATION: VITAL SIGNS: Blood pressure 130/69, respirations 16, pulse 65, afebrile. HEENT: Head is normocephalic. Eyes: Pupils normal. Conjunctivae slightly pale. NECK: JVP low. Carotid equal. Thorax AP diameter normal. LUNGS: Bibasilar rales. CARDIOVASCULAR: S1 and S2. No rub. ABDOMEN: Soft, nontender. No organomegaly. Bowel sounds normal. Extremities: The patient has 2-3+ edema bilateral legs. LABORATORY DATA: WBC 12.0, hemoglobin 9.3, hematocrit 30.4, platelets 326,000, MCHC also low. Sodium 137, potassium 3.5, BUN 19, creatinine 1.4, random glucose 117, another glucose level 93, NT-proB natriuretic peptide 6960. Troponin 0.08 and second one also 0.08. DIAGNOSES: Congestive heart failure; severe pulmonary hypertension; systemic hypertension; atrial fibrillation; history of gastrointestinal bleed in the past; history of renal insufficiency; history of renal mass surgery, status post nephrectomy; chronic renal insufficiency; history of lung surgery for carcinoma, status post lobectomy; hyperlipidemia; status post pacemaker insertion. PLAN: The patient on diltiazem CD 180 p.o. daily; aspirin 81 daily; doxycycline hydrochloride 100 mg p.o. every 12 hours; Eliquis 2.5 p.o. daily; since potassium is low, so stat potassium 40 mg has been already given; furosemide 40 IV daily; atorvastatin 20 daily; metoprolol 25 b.i.d.; meropenem 1 g IV every 12 hours; Protonix 40 b.i.d.; Ultram 50 mg p.o. t.i.d. p.r.n.; Xanax 0.25 mg p.o. t.i.d. p.r.n. Dr. Fonseca will follow the patient starting tomorrow. Sulmea Garcia MD
--- NOTE | 2018-03-20 22:14 | CARD ---
APPROVED REPORT Date of service: 03/20/2018 EKG Measurement Heart [id number] <Conclusion> Electronic ventricular pacemaker
[2018-03-21 07:24] LABS: HEMOGLOBIN 9.1 g/dL (12.0-16.0); MEAN CELL VOLUME 82.1 fl (80.0-105.0); MEAN CORPUSCULAR HEMOGLOBIN 24.3 pg (25.0-35.0); MEAN CORPUSCULAR HGB CONC 29.5 g/dl (31.0-37.0); MEAN PLATELET VOLUME 9.6 fl (7.0-11.0); RBC 3.75 10^6/uL (3.5-6.1); RED CELL DISTRIBUTION WIDTH 23.8 % (11.5-14.5); WHITE BLOOD COUNT 9.2 10^3/uL (4.5-11.0)
[2018-03-21 07:47] LABS: ALB/GLOB RATIO 0.9 (1.1-1.8); ALBUMIN 3.3 g/dL (3.0-4.8); CALCIUM 9.1 mg/dL (8.4-10.5)
--- NOTE | 2018-03-21 08:16 | PN ---
DATE: 03/21/2018 PULMONARY NOTE SUBJECTIVE: The patient appears comfortable this morning. She is not short of breath at rest. OBJECTIVE: VITAL SIGNS: Temperature is 98.3, pulse 59, respirations 19, blood pressure 147/80. Oxygen saturation on nasal cannula is 98-100%. HEENT: Normocephalic, atraumatic. NECK: No JVD. CARDIOVASCULAR: Systolic ejection murmur at the lower left sternal border. Positive S3 gallop. LUNGS: Crackles at both bases. No rhonchi. No wheezing. EXTREMITIES: Mild edema. No cyanosis, no clubbing. Calves are nontender to palpation. GI: Abdomen is soft, nontender and nondistended. Bowel sounds are positive. SKIN: No acute rash. NEUROLOGIC: Limited at the present time. IMPRESSION: 1. Acute congestive heart failure. 2. Rule out pneumonia - left lower lobe. 3. Mild anemia. 4. Coronary artery disease. 5. Chronic atrial fibrillation. PLAN: The patient appears quite comfortable this morning. She is not short of breath at rest. She does state to feeling much better overall. On physical exam, there is no significant bronchospasm noted. In addition, there is no significant alveolar-arterial gradient. I will continue the current nebulizer treatments for now. The patient remains on antibiotic therapy - as per Infectious Disease. Temperatures have fully resolved. Repeat a.m. labs are pending. Cultures are so far negative. I would continue with the treatment for congestive heart failure as per Cardiology. Input by Dr. Garcia is noted. The patient remains on intravenous Lasix. Clinical status of the patient is certainly improved - compared to the initial presentation. The patient is advised to be out of bed as much as possible. I will discuss the above with Dr. Farris. Jake Smith MD MTDD
[2018-03-21] MEDS ORDERED: Tetrahydrozoline Opht 0.05% Sol (15 ml) OU PRN (09:00)
--- NOTE | 2018-03-21 09:22 | PN ---
DATE: 03/21/2018 SUBJECTIVE: I saw her resting comfortably in bed. She is resting comfortably in bed. She is alert. She sleeps on and off. She is getting tramadol for pain which is helping her. She is being seen by the lung doctor and the heart doctor. She also had a lung scan which was low probability for pulmonary embolus. She has acute congestive heart failure and chronic pulmonary hypertension, chronic AFib, history of a GI bleed, renal insufficiency. She is being diuresed well with Lasix and on IV antibiotics. OBJECTIVE: VITAL SIGNS: She has 98.3 temperature, 59 pulse, 147/80 blood pressure, 19 respiratory rate, 98% O2 sat on room air. HEENT: Head is atraumatic, normocephalic. HEART: Regular rate. LUNGS: Decreased breath sounds but clear to auscultation. No wheezes, rhonchi or rales which is better. MEDICATIONS: She is on Aricept, aspirin, Cardizem, Colace, Doryx, DuoNebs, Eliquis, Lasix IV, Lipitor, Lopressor, Merrem IV, Protonix, Ultram and Xanax. LABORATORY DATA: She has 144 sodium, potassium 4.3, BUN 21, creatinine 1.4, GFR is 36, sugar is 89, calcium is 9.1, total bili is 0.4. AST is 25, ALT is 44. Alk phos 128. The troponins are 0.08 indeterminate. Total protein 6.9. White count is 9.2, better when she came in, it was 12, 9.1 hemoglobin, 30.8 hematocrit with 306 platelets. She is being seen by Pulmonary and Cardio. We will get physical therapy and out of bed to chair and check her labs tomorrow. Continue with IV antibiotics. She is here for acute CHF, on chronic, possible pneumonia on the left lower lobe as per Pulmonary. Get some physical therapy and see what they think about her strength and IV antibiotics as per Infectious Disease. Continue aggressive treatment and care. Marco Farris DO [facility]
[2018-03-21] MEDS: Meropenem IV 1 gm in NS 1 GM/50 ML BAG IVPB SCH ×2 (09:33→21:56)
[2018-03-21] MEDS: diltiaZEM 180 mg/24 Hours CD Cap PO SCH (09:34)
[2018-03-21] MEDS: Pantoprazole 40 mg EC Tab PO SCH ×2 (09:35→18:36)
--- NOTE | 2018-03-21 12:04 | PN ---
DATE: 03/21/2018 CARDIOLOGY FOLLOWUP SUBJECTIVE: The patient's breathing is much improved. OBJECTIVE: VITAL SIGNS: The blood pressure is 138/72, the heart rates in the 60s. NECK: Negative JVD. LUNGS: Decreased breath sounds bilaterally. HEART: Reveal S1, S2. EXTREMITIES: Trace edema on the right lower extremity. LABORATORY DATA: BUN and creatinine is 9 and 1.4. Troponin is 0.08. The hemoglobin is 9.1. IMPRESSION: 1. Acute systolic congestive heart failure. 2. Anemia. 3. Pedal edema. 4. Severe pulmonary hypertension documented on echocardiogram. 5. Normal left ventricular function. Given these findings, the patient is doing better on diuretics. We will begin to mobilize the patient today. Oswald Fonseca MD
--- NOTE | 2018-03-21 13:38 | CP.PCM.APN ---
Subjective - Date & Time of Evaluation Date of Evaluation: 03/21/18 Time of Evaluation: 09:30 - Subjective Subjective: pt seen and examined laying in bed , pt offers no complaints except feeling tired and sleepy. Pt states she tolerated her breakfast and is in NAD Review of Systems - EENT Eyes: absent: As Per HPI, Blind Spots, Blurred Vision, Change in Vision, Decreased Night Vision, Diplopia, Discharge, Dry Eye, Exophthalmos, Floaters, Irritation, Itchy Eyes, Loss of Peripheral Vision, Pain, Photophobia, Requires Corrective Lenses, Sees Flashes, Spots in Vision, Tunnel Vision, Other Visual Disturbances, Loss of Vision, Other Nose/Mouth/Throat: absent: As Per HPI, Epistaxis, Nasal Congestion, Nasal Discharge, Nasal Obstruction, Nasal Trauma, Nose Pain, Post Nasal Drip, Sinus Pain, Sinus Pressure, Bleeding Gums, Change in Voice, Dental Pain, Dry Mouth, Dysphagia, Halitosis, Hoarsness, Lip Swelling, Mouth Lesions, Mouth Pain, Odynophagia, Sore Throat, Throat Swelling, Tongue Swelling, Facial Pain, Neck Pain, Neck Mass, Other - Cardiovascular Cardiovascular: absent: As Per HPI, Acrocyanosis, Chest Pain, Chest Pain at Rest, Chest Pain with Activity, Claudication, Diaphoresis, Dyspnea, Dyspnea on Exertion, Edema, Irregular Heart Rhythm, Pain Radiating to Arm/Neck/Jaw, Leg Edema, Leg Ulcers, Lightheadedness, Orthopnea, Palpitations, Paroxysmal Nocturnal Dyspnea, Pedal Edema, Radiating Pain, Rapid Heart Rate, Slow Heart Rate, Syncope, Other - Respiratory Respiratory: As Per HPI Objective - Vital Signs/Intake and Output Vital Signs (last 24 hours): Temp Pulse Resp BP Pulse Ox 98.2 F 69 18 124/75 98 03/21/18 11:56 03/21/18 11:56 03/21/18 11:56 03/21/18 11:56 03/21/18 06:00 Intake and Output: 03/21/18 03/21/18 06:59 18:59 Intake Total 100 50 Output Total 0 Balance 100 50 - Medications Medications: Current Medications Albuterol/Ipratropium (Duoneb 3 Mg/0.5 Mg (3 Ml) Ud) 3 ml IH Q6H PRN PRN Reason: Shortness of Breath Alprazolam (Xanax) 0.25 mg PO TID PRN; Protocol PRN Reason: Anxiety Stop: 03/27/18 10:59 Last Admin: 03/21/18 02:30 Dose: 0.25 mg Apixaban (Eliquis) 2.5 mg PO DAILY [facility]; Protocol Last Admin: 03/21/18 09:34 Dose: 2.5 mg Aspirin (Aspirin Chewable) 81 mg PO DAILY [facility] Last Admin: 03/21/18 09:34 Dose: 81 mg Atorvastatin Calcium (Lipitor) 20 mg PO DAILY [facility] Last Admin: 03/21/18 09:34 Dose: 20 mg Diltiazem HCl (Cardizem Cd) 180 mg PO DAILY [facility] Last Admin: 03/21/18 09:34 Dose: 180 mg Docusate Sodium (Colace) 100 mg PO DAILY [facility] Last Admin: 03/21/18 09:35 Dose: 100 mg Donepezil HCl (Aricept) 10 mg PO HS [facility] Last Admin: 03/20/18 21:15 Dose: 10 mg Doxycycline Hyclate (Doryx) 100 mg PO Q12 [facility]; Protocol Stop: 03/29/18 10:01 Last Admin: 03/21/18 09:34 Dose: 100 mg Furosemide (Lasix) 40 mg IVP DAILY [facility] Last Admin: 03/21/18 09:35 Dose: 40 mg Meropenem (Merrem Iv 1 Gm Premix) 1 gm in 50 mls @ 100 mls/hr IVPB Q12 [facility]; Protocol Stop: 03/29/18 10:01 Last Admin: 03/21/18 09:33 Dose: 100 mls/hr Metoprolol Tartrate (Lopressor) 25 mg PO BID [facility] Last Admin: 03/21/18 09:35 Dose: 25 mg Pantoprazole Sodium (Protonix Ec Tab) 40 mg PO BID [facility] Last Admin: 03/21/18 09:35 Dose: 40 mg Tetrahydrozoline HCl/Zinc Sulfate (Visine 0.05% Opht Soln) 0 ml OU Q2 PRN PRN Reason: Dry eyes Last Admin: 03/21/18 09:33 Dose: 1 drop Tramadol HCl (Ultram) 50 mg PO TID PRN PRN Reason: Pain, moderate (4-7) Last Admin: 03/20/18 23:35 Dose: 50 mg - Labs Labs: 03/21/18 07:00 03/21/18 07:00 PT 16.3 SECONDS (9.4-12.5) H 03/20/18 02:40 INR 1.42 03/20/18 02:40 APTT 31.2 Seconds (25.1-36.5) 03/20/18 02:40 - Constitutional Appears: No Acute Distress - Eye Exam Eye Exam: Normal appearance Pupil Exam: PERRL - ENT Exam ENT Exam: Normal Exam - Respiratory Exam Respiratory Exam: Decreased Breath Sounds, NORMAL BREATHING PATTERN - Cardiovascular Exam Cardiovascular Exam: Irregular Rhythm, +S1, +S2 - GI/Abdominal Exam GI & Abdominal Exam: Normal Bowel Sounds - Neurological Exam Neurological Exam: Alert, Awake - Skin Skin Exam: Dry, Intact Assessment and Plan - Assessment and Plan (Free Text) Plan: Impressions Lung Scan Nuclear Medicine 03/20/18 11:35 IMPRESSION: Low probability ventilation perfusion scan for pulmonary embolism. Impressions Chest X-Ray 03/20/18 02:16 IMPRESSION: Progressive pulmonary edema. New left pleural effusion. Extremity Ultrasound 03/20/18 02:35 IMPRESSION: No sonographic evidence for deep venous thrombosis in the visualized segments of both lower extremities. Lung Scan Nuclear Medicine 03/20/18 11:35 IMPRESSION: Low probability ventilation perfusion scan for pulmonary embolism. Laboratory Results WBC 9.2 10^3/uL (4.5-11.0) D 03/21/18 07:00 RBC 3.75 10^6/uL (3.5-6.1) 03/21/18 07:00 Hgb 9.1 g/dL (12.0-16.0) L 03/21/18 07:00 Hct 30.8 % (36.0-48.0) L 03/21/18 07:00 MCV 82.1 fl (80.0-105.0) 03/21/18 07:00 MCH 24.3 pg (25.0-35.0) L 03/21/18 07:00 MCHC 29.5 g/dl (31.0-37.0) L 03/21/18 07:00 RDW 23.8 % (11.5-14.5) H 03/21/18 07:00 Plt Count 306 10^3/uL (120.0-450.0) 03/21/18 07:00 MPV 9.6 fl (7.0-11.0) 03/21/18 07:00 PT 16.3 SECONDS (9.4-12.5) H 03/20/18 02:40 INR 1.42 03/20/18 02:40 APTT 31.2 Seconds (25.1-36.5) 03/20/18 02:40 pO2 175 mm/Hg (30-55) H 03/20/18 02:40 VBG pH 7.44 (7.32-7.43) H 03/20/18 02:40 VBG pCO2 38.0 (40-60) L 03/20/18 02:40 VBG HCO3 25.8 mmol/l (21-28) 03/20/18 02:40 VBG Total CO2 27.0 mmol.L (22-28) 03/20/18 02:40 VBG O2 Sat (Calc) 100.1 % (40-65) H 03/20/18 02:40 VBG Base Excess 1.7 mmol/L (0.0-2.0) 03/20/18 02:40 VBG Potassium 3.4 mmol/L (3.6-5.2) L 03/20/18 02:40 Sodium 148.0 mmol/L (132-148) 03/20/18 02:40 Chloride 116.0 mmol/L (98-107) H 03/20/18 02:40 Glucose 119 mg/dl (65-105) H 03/20/18 02:40 Lactate 0.8 mmol/L (0.7-2.1) 03/20/18 02:40 FiO2 21.0 % 03/20/18 02:40 Sodium 144 mmol/L (132-148) 03/21/18 07:00 Potassium 4.3 mmol/L (3.6-5.0) 03/21/18 07:00 Chloride 112 mmol/L (98-107) H 03/21/18 07:00 Carbon Dioxide 28 mmol/L (21-33) 03/21/18 07:00 Anion Gap 9 (10-20) L 03/21/18 07:00 BUN 21 mg/dL (7-21) 03/21/18 07:00 Creatinine 1.4 mg/dl (0.7-1.2) H 03/21/18 07:00 Est GFR ( Amer) 44 03/21/18 07:00 Est GFR (Non-Af Amer) 36 03/21/18 07:00 POC Glucose (mg/dL) 93 mg/dL (65-110) 03/20/18 16:32 Random Glucose 89 mg/dL (70-110) 03/21/18 07:00 Calcium 9.1 mg/dL (8.4-10.5) 03/21/18 07:00 Total Bilirubin 0.4 mg/dL (0.2-1.3) 03/21/18 07:00 AST 25 U/L (14-36) 03/21/18 07:00 ALT 44 U/L (7-56) 03/21/18 07:00 Alkaline Phosphatase 128 U/L (38-126) H 03/21/18 07:00 Lactate Dehydrogenase 749 U/L (333-699) H 03/20/18 02:40 Total Creatine Kinase 36 U/L (35-230) 03/20/18 02:40 Troponin I 0.08 ng/mL 03/20/18 22:00 NT-Pro-B Natriuret Pep 6960 pg/mL (0-450) H 03/20/18 02:40 Total Protein 6.9 g/dL (5.8-8.3) 03/21/18 07:00 Albumin 3.3 g/dL (3.0-4.8) 03/21/18 07:00 Globulin 3.5 gm/dL 03/21/18 07:00 Albumin/Globulin Ratio 0.9 (1.1-1.8) L 03/21/18 07:00 Procalcitonin 0.09 NG/ML (0.19-0.49) L 03/20/18 12:00 Venous Blood Potassium 3.4 mmol/L (3.6-5.2) L 03/20/18 02:40 Urine Color Light yellow (YELLOW) 03/20/18 07:50 Urine Appearance Clear (CLEAR) 03/20/18 07:50 Urine pH 6.5 (4.7-8.0) 03/20/18 07:50 Ur Specific [place] 1.015 (1.005-1.035) 03/20/18 07:50 Urine Protein 30 mg/dL (<30 mg/dL) H 03/20/18 07:50 Urine Glucose (UA) Negative mg/dL (NEGATIVE) 03/20/18 07:50 Urine Ketones Negative mg/dL (NEGATIVE) 03/20/18 07:50 Urine Blood Trace-lysed (NEGATIVE) H 03/20/18 07:50 Urine Nitrate Negative (NEGATIVE) 03/20/18 07:50 Urine Bilirubin Negative (NEGATIVE) 03/20/18 07:50 Urine Urobilinogen 0.2 E.U./dL (<1 E.U./dL) 03/20/18 07:50 Ur Leukocyte Esterase Trace Chidi/uL (NEGATIVE) H 03/20/18 07:50 Urine RBC 1 - 3 /hpf (0-2) H 03/20/18 07:50 Urine WBC 2 - 5 /hpf (0-6) 03/20/18 07:50 Ur Epithelial Cells 3 - 4 /hpf (0-5) 03/20/18 07:50 Urine Bacteria Few /hpf (NONE) 03/20/18 07:50 Influenza Typ A,B (EIA) Negative for flu a/b (NEGATIVE) 03/21/18 10:20 Ur L.pneumophila Ag Negative (NEGATIVE) 03/20/18 11:21 82 yr old AA female with pmh sig for afib, chf, cad, renal cell ca s/p n ephrectomy, anemia, chroic right LE pain admitted with complaint of SOB and LE edema acute systolic chf exacerbation now undergoing pul. cardiac as well as ID eval for episode of fever. #acute systolic chf cxr- pul edema cardiology eval iV lasix strict i/o daily wt #fever/ bilateral HCAP iv antibiotics ID consultation Pul consultatin and recs' reviewed # afib stable Eliquis regimen tele monitoring # anemia stable monitor h/h Will follow clinically P.T eval done, will await recs Marcela Caldwell
--- NOTE | 2018-03-21 17:12 | CP.PCM.PN ---
Subjective - Date & Time of Evaluation Date of Evaluation: 03/21/18 Time of Evaluation: 10:35 - Subjective Subjective: Comfortable, afebrile, not short of breath in bed. Objective - Vital Signs/Intake and Output Vital Signs (last 24 hours): Temp Pulse Resp BP Pulse Ox 98.5 F 61 16 145/74 98 03/20/18 18:00 03/20/18 18:00 03/20/18 18:00 03/20/18 18:00 03/20/18 18:00 - Medications Medications: Current Medications Albuterol/Ipratropium (Duoneb 3 Mg/0.5 Mg (3 Ml) Ud) 3 ml IH Q6H PRN PRN Reason: Shortness of Breath Alprazolam (Xanax) 0.25 mg PO TID PRN; Protocol PRN Reason: Anxiety Stop: 03/27/18 10:59 Apixaban (Eliquis) 2.5 mg PO DAILY [facility]; Protocol Aspirin (Aspirin Chewable) 81 mg PO DAILY [facility] Atorvastatin Calcium (Lipitor) 20 mg PO DAILY [facility] Diltiazem HCl (Cardizem Cd) 180 mg PO DAILY [facility] Docusate Sodium (Colace) 100 mg PO DAILY [facility] Donepezil HCl (Aricept) 10 mg PO HS [facility] Last Admin: 03/20/18 21:15 Dose: 10 mg Doxycycline Hyclate (Doryx) 100 mg PO Q12 [facility]; Protocol Stop: 03/29/18 10:01 Last Admin: 03/20/18 21:15 Dose: 100 mg Furosemide (Lasix) 40 mg IVP DAILY [facility] Meropenem (Merrem Iv 1 Gm Premix) 1 gm in 50 mls @ 100 mls/hr IVPB Q12 [facility]; Protocol Stop: 03/29/18 10:01 Last Admin: 03/20/18 21:15 Dose: 100 mls/hr Metoprolol Tartrate (Lopressor) 25 mg PO BID [facility] Last Admin: 03/20/18 17:18 Dose: 25 mg Pantoprazole Sodium (Protonix Ec Tab) 40 mg PO BID [facility] Last Admin: 03/20/18 17:18 Dose: 40 mg Tramadol HCl (Ultram) 50 mg PO TID PRN PRN Reason: Pain, moderate (4-7) Last Admin: 03/20/18 17:18 Dose: 50 mg - Labs Labs: 03/20/18 02:40 03/20/18 02:40 PT 16.3 SECONDS (9.4-12.5) H 03/20/18 02:40 INR 1.42 03/20/18 02:40 APTT 31.2 Seconds (25.1-36.5) 03/20/18 02:40 - Constitutional Appears: Chronically Ill - Head Exam Head Exam: NORMAL INSPECTION - Neck Exam Neck Exam: absent: Meningismus - Respiratory Exam Respiratory Exam: Decreased Breath Sounds - Cardiovascular Exam Cardiovascular Exam: +S1, +S2 - GI/Abdominal Exam GI & Abdominal Exam: Soft. absent: Tenderness Assessment and Plan - Assessment and Plan (Free Text) Plan: Assessment SIRS, with fever, source to be determined, consider HCAP UTI with ESBL E. coli S/P treatment with antibiotics S/P Severe sepsis R/O intra-abdominal infection atrial fibrillation COPD CAD chronic CHF renal cell cancer S/P nephrectomy lung cancer S/P lobectomy anxiety dementia Plan follow up blood, urine cx, PCT, CXR and continue Merrem and Doxycycline day 2 - discussed with dr. Smith
[2018-03-22 06:03] VITALS: O2SAT 95
[2018-03-22 07:42] LABS: MEAN CELL VOLUME 81.8 fl (80.0-105.0); MEAN CORPUSCULAR HEMOGLOBIN 24.5 pg (25.0-35.0); MEAN CORPUSCULAR HGB CONC 29.9 g/dl (31.0-37.0); MEAN PLATELET VOLUME 9.4 fl (7.0-11.0); RBC 3.68 10^6/uL (3.5-6.1); RED CELL DISTRIBUTION WIDTH 23.6 % (11.5-14.5); WHITE BLOOD COUNT 7.8 10^3/uL (4.5-11.0)
[2018-03-22 07:57] LABS: ALB/GLOB RATIO 0.9 (1.1-1.8); ALBUMIN 3.2 g/dL (3.0-4.8)
--- NOTE | 2018-03-22 09:38 | PN ---
DATE: 03/22/2018 PULMONARY DICTATION SUBJECTIVE: The patient appears comfortable this morning. She is not short of breath at rest. OBJECTIVE: VITAL SIGNS: Temperature is 98.0, pulse 68, respirations 18/20, blood pressure 125/75. Oxygen saturation on nasal cannula is 95%-100%. HEENT: Normocephalic, atraumatic. NECK: No JVD. CARDIOVASCULAR: Systolic ejection murmur at the lower left sternal border. Positive S3 gallop. LUNGS: Less crackles at the bases. No rhonchi. No wheezing. EXTREMITIES: Less edema. No cyanosis, no clubbing. Calves are nontender to palpation. GASTROINTESTINAL: Abdomen is soft, nontender, and nondistended. Bowel sounds are positive. SKIN: No acute rash. NEUROLOGIC: Limited at the present time. IMPRESSION: 1. Acute congestive heart failure. 2. Rule out pneumonia - left lower lobe. 3. Mild anemia. 4. Coronary artery disease. 5. Chronic atrial fibrillation. PLAN: The patient appears very comfortable this morning. She is not short of breath at rest. She does state to feeling much better overall. On physical exam, there is no significant bronchospasm noted. In addition, there is no significant alveolar-arterial gradient. I will continue the current nebulizer treatments for now. The patient remains on antibiotic therapy - as per Infectious Disease. There are no temperatures noted. The leukocytosis has resolved. I would continue with the treatment for congestive heart failure as per Cardiology. Input by Dr. Fonseca is noted. Clinical status of the patient is significantly improved - compared to the initial presentation. I will discuss the above with Dr. Farris later this morning. Jake Smith MD [facility]
[2018-03-22] MEDS: Pantoprazole 40 mg EC Tab PO SCH ×2 (09:46→17:53)
[2018-03-22] MEDS: Meropenem IV 1 gm in NS 1 GM/50 ML BAG IVPB SCH (09:47)
[2018-03-22] MEDS: diltiaZEM 180 mg/24 Hours CD Cap PO SCH (09:48)
--- NOTE | 2018-03-22 11:27 | PN ---
DATE: 03/22/2018 SUBJECTIVE: I saw her resting comfortably in bed. She slept fairly well. She is breathing a bit better. Still some shortness of breath. She is on Aricept, aspirin, diltiazem, Colace, Doryx, DuoNeb, Eliquis, Lasix 40 IV, Lipitor, Lopressor, Merrem IV, Protonix, Ultram, Visine, and Xanax. She is feeling better overall, but not 100% yet. OBJECTIVE VITAL SIGNS: She has 98 temperature, 68 pulse, 125/75 blood pressure, 20 respiratory rate, 95% O2 sat on nasal cannula. HEENT: Head atraumatic, normocephalic. LUNGS: Regular rate with decreased breath sounds but clear. No wheezes, no rales at this time. ABDOMEN: Soft. EXTREMITIES: Much better. No edema. LABORATORY DATA: She has negative flu, negative . White count is down to 7.8, hemoglobin 9, hematocrit 30.1, platelets of 272. Sodium 142, potassium 4.2, BUN 23, creatinine 1.6, GFR is 31, sugar is 99. Calcium is 9.0. Total bili is 0.4, AST is 22, ALT is 37, alkaline phosphatase 113, total protein 6.6. is trace. ASSESSMENT AND PLAN: She is being followed by Infectious Diseases, Cardiology, Pulmonary. She has systemic inflammatory response syndrome with fever, urinary tract infection, status post severe sepsis. Doxycycline and Merrem. Also, there is recommendation for Transitional Care Unit to continue with physical therapy. Also, IV antibiotics hopefully for the next few days. We will get her out of bed to chair. Marco Farris DO [facility]
--- NOTE | 2018-03-22 12:56 | CP.PCM.PN ---
Subjective - Date & Time of Evaluation Date of Evaluation: 03/22/18 Time of Evaluation: 10:15 - Subjective Subjective: Feeling better, no fevers, not in distress, no nausea, no diarrhea. No SOB at rest. Objective - Vital Signs/Intake and Output Vital Signs (last 24 hours): Temp Pulse Resp BP Pulse Ox 98.2 F 69 18 124/75 98 03/21/18 11:56 03/21/18 11:56 03/21/18 11:56 03/21/18 11:56 03/21/18 06:00 Intake and Output: 03/21/18 03/21/18 06:59 18:59 Intake Total 100 50 Output Total 0 Balance 100 50 - Medications Medications: Current Medications Albuterol/Ipratropium (Duoneb 3 Mg/0.5 Mg (3 Ml) Ud) 3 ml IH Q6H PRN PRN Reason: Shortness of Breath Alprazolam (Xanax) 0.25 mg PO TID PRN; Protocol PRN Reason: Anxiety Stop: 03/27/18 10:59 Last Admin: 03/21/18 02:30 Dose: 0.25 mg Apixaban (Eliquis) 2.5 mg PO DAILY [facility]; Protocol Last Admin: 03/21/18 09:34 Dose: 2.5 mg Aspirin (Aspirin Chewable) 81 mg PO DAILY [facility] Last Admin: 03/21/18 09:34 Dose: 81 mg Atorvastatin Calcium (Lipitor) 20 mg PO DAILY [facility] Last Admin: 03/21/18 09:34 Dose: 20 mg Diltiazem HCl (Cardizem Cd) 180 mg PO DAILY [facility] Last Admin: 03/21/18 09:34 Dose: 180 mg Docusate Sodium (Colace) 100 mg PO DAILY [facility] Last Admin: 03/21/18 09:35 Dose: 100 mg Donepezil HCl (Aricept) 10 mg PO HS [facility] Last Admin: 03/20/18 21:15 Dose: 10 mg Doxycycline Hyclate (Doryx) 100 mg PO Q12 [facility]; Protocol Stop: 03/29/18 10:01 Last Admin: 03/21/18 09:34 Dose: 100 mg Furosemide (Lasix) 40 mg IVP DAILY [facility] Last Admin: 03/21/18 09:35 Dose: 40 mg Meropenem (Merrem Iv 1 Gm Premix) 1 gm in 50 mls @ 100 mls/hr IVPB Q12 [facility]; Protocol Stop: 03/29/18 10:01 Last Admin: 03/21/18 09:33 Dose: 100 mls/hr Metoprolol Tartrate (Lopressor) 25 mg PO BID [facility] Last Admin: 03/21/18 09:35 Dose: 25 mg Pantoprazole Sodium (Protonix Ec Tab) 40 mg PO BID [facility] Last Admin: 03/21/18 09:35 Dose: 40 mg Tetrahydrozoline HCl/Zinc Sulfate (Visine 0.05% Opht Soln) 0 ml OU Q2 PRN PRN Reason: Dry eyes Last Admin: 03/21/18 09:33 Dose: 1 drop Tramadol HCl (Ultram) 50 mg PO TID PRN PRN Reason: Pain, moderate (4-7) Last Admin: 03/20/18 23:35 Dose: 50 mg - Labs Labs: 03/21/18 07:00 03/21/18 07:00 PT 16.3 SECONDS (9.4-12.5) H 03/20/18 02:40 INR 1.42 03/20/18 02:40 APTT 31.2 Seconds (25.1-36.5) 03/20/18 02:40 - Constitutional Appears: No Acute Distress, Chronically Ill - Head Exam Head Exam: NORMAL INSPECTION - Neck Exam Neck Exam: absent: Meningismus - Respiratory Exam Respiratory Exam: Decreased Breath Sounds - Cardiovascular Exam Cardiovascular Exam: +S1, +S2 - GI/Abdominal Exam GI & Abdominal Exam: Soft. absent: Tenderness Assessment and Plan - Assessment and Plan (Free Text) Plan: Assessment SIRS, with fever, source to be determined, consider HCAP history of UTI with ESBL E. coli S/P treatment with antibiotics S/P Severe sepsis R/O intra-abdominal infection atrial fibrillation COPD CAD chronic CHF renal cell cancer S/P nephrectomy lung cancer S/P lobectomy anxiety dementia Plan cultures have been negative; continue Merrem and Doxycycline day 3 for 4-7 days - discussed with dr. Smith
--- NOTE | 2018-03-22 13:22 | CP.PCM.APN ---
Subjective - Date & Time of Evaluation Date of Evaluation: 03/22/18 Time of Evaluation: 09:15 - Subjective Subjective: pt seenand examined at bedside, sitting up in bed. pt in NAD pt states she feels better since admission Review of Systems - Cardiovascular Cardiovascular: absent: As Per HPI, Acrocyanosis, Chest Pain, Chest Pain at Rest, Chest Pain with Activity, Claudication, Diaphoresis, Dyspnea, Dyspnea on Exertion, Edema, Irregular Heart Rhythm, Pain Radiating to Arm/Neck/Jaw, Leg Edema, Leg Ulcers, Lightheadedness, Orthopnea, Palpitations, Paroxysmal Nocturnal Dyspnea, Pedal Edema, Radiating Pain, Rapid Heart Rate, Slow Heart Rate, Syncope, Other Objective - Vital Signs/Intake and Output Vital Signs (last 24 hours): Temp Pulse Resp BP Pulse Ox 97.7 F 82 20 123/71 95 03/22/18 12:00 03/22/18 12:00 03/22/18 12:00 03/22/18 12:00 03/22/18 06:00 Intake and Output: 03/22/18 03/22/18 06:59 18:59 Intake Total 1560 Output Total 1550 Balance 10 - Medications Medications: Current Medications Albuterol/Ipratropium (Duoneb 3 Mg/0.5 Mg (3 Ml) Ud) 3 ml IH Q6H PRN PRN Reason: Shortness of Breath Alprazolam (Xanax) 0.25 mg PO TID PRN; Protocol PRN Reason: Anxiety Stop: 03/27/18 10:59 Last Admin: 03/22/18 01:33 Dose: 0.25 mg Apixaban (Eliquis) 2.5 mg PO DAILY [facility]; Protocol Last Admin: 03/22/18 09:46 Dose: 2.5 mg Aspirin (Aspirin Chewable) 81 mg PO DAILY [facility] Last Admin: 03/22/18 09:46 Dose: 81 mg Atorvastatin Calcium (Lipitor) 20 mg PO DAILY [facility] Last Admin: 03/22/18 09:46 Dose: 20 mg Diltiazem HCl (Cardizem Cd) 180 mg PO DAILY [facility] Last Admin: 03/22/18 09:48 Dose: 180 mg Docusate Sodium (Colace) 100 mg PO DAILY [facility] Last Admin: 03/22/18 09:49 Dose: Not Given Donepezil HCl (Aricept) 10 mg PO [facility] Last Admin: 03/21/18 21:57 Dose: 10 mg Doxycycline Hyclate (Doryx) 100 mg PO Q12 [facility]; Protocol Stop: 03/29/18 10:01 Last Admin: 03/22/18 09:46 Dose: 100 mg Furosemide (Lasix) 40 mg IVP DAILY [facility] Last Admin: 03/22/18 09:48 Dose: 40 mg Meropenem (Merrem Iv 1 Gm Premix) 1 gm in 50 mls @ 100 mls/hr IVPB Q12 [facility]; Protocol Stop: 03/29/18 10:01 Last Admin: 03/22/18 09:47 Dose: 100 mls/hr Metoprolol Tartrate (Lopressor) 25 mg PO BID [facility] Last Admin: 03/22/18 09:46 Dose: 25 mg Pantoprazole Sodium (Protonix Ec Tab) 40 mg PO BID [facility] Last Admin: 03/22/18 09:46 Dose: 40 mg Tetrahydrozoline HCl/Zinc Sulfate (Visine 0.05% Opht Soln) 0 ml OU Q2 PRN PRN Reason: Dry eyes Last Admin: 03/21/18 09:33 Dose: 1 drop Tramadol HCl (Ultram) 50 mg PO TID PRN PRN Reason: Pain, moderate (4-7) Last Admin: 03/22/18 05:31 Dose: 50 mg - Labs Labs: 03/22/18 07:30 03/22/18 07:30 PT 16.3 SECONDS (9.4-12.5) H 03/20/18 02:40 INR 1.42 03/20/18 02:40 APTT 31.2 Seconds (25.1-36.5) 03/20/18 02:40 - Constitutional Appears: No Acute Distress - Head Exam Head Exam: NORMOCEPHALIC - Eye Exam Eye Exam: Normal appearance Pupil Exam: PERRL - Respiratory Exam Respiratory Exam: Decreased Breath Sounds, NORMAL BREATHING PATTERN - Cardiovascular Exam Cardiovascular Exam: Irregular Rhythm, +S1, +S2 - GI/Abdominal Exam GI & Abdominal Exam: Normal Bowel Sounds - Extremities Exam Extremities Exam: Pedal Edema (plus 1 ) - Back Exam Back Exam: Full ROM - Psychiatric Exam Psychiatric exam: Normal Affect, Normal Mood - Skin Skin Exam: Dry, Intact Assessment and Plan - Assessment and Plan (Free Text) Plan: 82 yr old AA female with pmh sig for afib, chf, cad, renal cell ca s/p nephrectomy, anemia, chroic right LE pain admitted with complaint of SOB and LE edema acute systolic chf exacerbation now undergoing pul. cardiac as well as ID eval for episode of fever. #acute systolic chf cxr- pul edema cardiology eval iV lasix daily - will monitor renal function strict i/o daily wt cardiology rec's noted #fever/ bilateral HCAP ID consultation noted iv antibiotics Merrem q12 , Doxy po q12 Pul consultatin and recs' reviewed # afib stable Eliquis,cardizem and Betablocker regimen tele monitoring # anemia stable monitor h/h # demantia aricept regimen P.T eval reviewed, recs for TCU, Eval pending. will follow Marcela Caldwell, DNP, [employer]
[2018-03-22 17:47] VITALS: BP 108/68; RESP 19; TEMP 98
--- NOTE | 2018-03-22 17:50 | PN ---
DATE: 03/22/2018 SUBJECTIVE: The patient's breathing is back to baseline. No shortness of breath. PHYSICAL EXAMINATION: VITAL SIGNS: Blood pressure 123/71, heart rates in the 80s. NECK: Negative JVD. LUNGS: Without rales. HEART: S1, S2. EXTREMITIES: Without edema. LABORATORY DATA: Hemoglobin is 9. Chemistries: BUN and creatinine is 23 and 1.6. IMPRESSION: 1. Acute systolic congestive heart failure, which is now improved. 2. Severe pulmonary hypertension. 3. Renal insufficiency. 4. Pedal edema, which is better. 5. Good left ventricular function. 6. Anemia. Given these findings, we will change the patient's Lasix to p.o. Lasix. We will DC telemetry today. Oswald Fonseca MD
[2018-03-22 20:06] VITALS: PULSE 60
--- NOTE | 2018-03-23 16:31 | PN ---
DATE: 03/23/2018 CARDIOLOGY FOLLOWUP SUBJECTIVE: The patient was transferred to the TCU yesterday. The patient is without shortness of breath. PHYSICAL EXAMINATION: VITAL SIGNS: Blood pressure is stable, heart rate is in the 70s. NECK: Negative JVD. LUNGS: Without rales. HEART: Reveals a 2/6 systolic ejection murmur. EXTREMITIES: Without edema. LABORATORY DATA: Hemoglobin is 8.9. Chemistries, BUN and creatinine is 28 and 1.8. IMPRESSION: 1. Resolution of acute diastolic congestive heart failure. 2. Severe pulmonary hypertension. 3. Renal insufficiency. 4. Anemia. 5. Resolution of dyspnea. Given these findings, we will continue her p.o. Lasix daily. Oswald Fonseca MD
== END 2018-03-22 19:46 | DRG 291 ==
LOC: ED 01:48 → ERH 04:00 → 2RNO 15:16
PROVIDERS: ADMIT Family Medicine; ATTEND Family Medicine
DX: I13.0 Hypertensive heart and chronic kidney disease with heart failure and stage 1 through stage 4 chronic kidney disease, or unspecified chronic kidney disease (principal); J18.9 Pneumonia, unspecified organism; I50.41 Acute combined systolic (congestive) and diastolic (congestive) heart failure; J44.0 Chronic obstructive pulmonary disease with (acute) lower respiratory infection; N39.0 Urinary tract infection, site not specified; I48.2 Chronic atrial fibrillation; I27.20 Pulmonary hypertension, unspecified; I25.10 Atherosclerotic heart disease of native coronary artery without angina pectoris; F41.9 Anxiety disorder, unspecified; F03.90 Unspecified dementia, unspecified severity, without behavioral disturbance, psychotic disturbance, mood disturbance, and anxiety; E11.22 Type 2 diabetes mellitus with diabetic chronic kidney disease; N18.9 Chronic kidney disease, unspecified; Y95 Nosocomial condition; E78.00 Pure hypercholesterolemia, unspecified; D64.9 Anemia, unspecified; K21.9 Gastro-esophageal reflux disease without esophagitis; Z16.12 Extended spectrum beta lactamase (ESBL) resistance; M19.90 Unspecified osteoarthritis, unspecified site; Z85.528 Personal history of other malignant neoplasm of kidney; Z85.118 Personal history of other malignant neoplasm of bronchus and lung; Z90.5 Acquired absence of kidney; Z90.2 Acquired absence of lung [part of]; Z87.891 Personal history of nicotine dependence; Z95.0 Presence of cardiac pacemaker; Z79.01 Long term (current) use of anticoagulants

== ENCOUNTER 2018-03-22 19:47 | Inpatient (IN) | payer OTHER, MEDICARE ==
[2018-03-22] MEDS ORDERED: Albuterol-Ipratrop 3 mg / 0.5 (3 ml) UD IH PRN (20:23)
[2018-03-22 20:43] VITALS: BMI 22.0
[2018-03-22] MEDS ORDERED: Meropenem IV 1 gm in NS 1 GM/50 ML BAG IVPB SCH (22:00)
[2018-03-22] MEDS ORDERED: MEROPENEM 500 MG in NS 500 MG/50 ML BAG IVPB SCH (22:00)
[2018-03-22] MEDS ORDERED: Pneumococcal 23-Valent Vaccine IM ONE (22:40)
[2018-03-22] MEDS ORDERED: Influenza Vaccine 60 mcg/0.5 mL SYR (4YR UP) IM ONE (22:40)
[2018-03-23 08:13] LABS: BASO # 0.03 K/mm3 (0.0-2.0); BASO % 0.5 % (0.0-3.0); EOS # 0.2 (0.0-0.7); EOS % 3.6 % (1.5-5.0); GRAN # 5.1 (1.4-6.5); HEMOGLOBIN 8.9 g/dL (12.0-16.0); LYMPH % 14.8 % (22.0-35.0); MEAN CELL VOLUME 81.9 fl (80.0-105.0); MEAN CORPUSCULAR HEMOGLOBIN 24.5 pg (25.0-35.0); MEAN CORPUSCULAR HGB CONC 29.9 g/dl (31.0-37.0); MEAN PLATELET VOLUME 9.3 fl (7.0-11.0); MONO # 0.3 (0.1-0.6); MONO % 4.1 % (1.0-6.0); RBC 3.64 10^6/uL (3.5-6.1); WHITE BLOOD COUNT 6.6 10^3/uL (4.5-11.0)
--- NOTE | 2018-03-23 08:14 | PN ---
DATE: 03/23/2018 PULMONARY NOTE SUBJECTIVE: The patient appears comfortable this morning. She is not short of breath at rest. PHYSICAL EXAMINATION: VITALS: Temperature is 98.1, pulse 73, respirations 18, blood pressure 106/64. Oxygen saturation on nasal cannula is 95%. HEENT: Normocephalic, atraumatic. No JVD. CARDIOVASCULAR: Systolic ejection murmur at the lower left sternal border. Positive S3 gallop. LUNGS: Minimal crackles at the bases. Otherwise clear. EXTREMITIES: Less edema. No cyanosis, no clubbing. Calves are nontender to palpation. GASTROINTESTINAL: Abdomen is soft, nontender, nondistended. Bowel sounds are positive. SKIN: No acute rash. NEUROLOGIC: Exam limited at the present time. IMPRESSION: 1. Acute congestive heart failure. 2. Rule out pneumonia - left lower lobe. 3. Mild anemia. 4. Coronary artery disease. 5. Chronic atrial fibrillation. PLAN: The patient appears very comfortable this morning. She is not short of breath at rest. She does state to feeling much better overall. On physical exam, there is no significant bronchospasm noted. In addition, there is no significant alveolar-arterial gradient. I will continue the current nebulizer treatments for now. The patient remains on antibiotic therapy - as per Infectious Disease. There are no temperatures noted. There is no leukocytosis-resolved. I would continue with the treatment for congestive heart failure as per Cardiology. Input by Dr. Fonseca is noted. Clinical status of the patient is significantly improved - compared to initial presentation. The patient is now on the transitional unit where she will participate with physical therapy. I will discuss the above with Dr. Farris. Jake Smith MD [facility]
[2018-03-23 08:45] LABS: ALB/GLOB RATIO 0.9 (1.1-1.8); ALBUMIN 3.2 g/dL (3.0-4.8); CALCIUM 8.9 mg/dL (8.4-10.5)
[2018-03-23] MEDS ORDERED: MEROPENEM 500 MG in NS 500 MG/50 ML BAG IVPB SCH (10:00)
[2018-03-23] MEDS: diltiaZEM 180 mg/24 Hours CD Cap PO SCH (10:20)
[2018-03-23] MEDS: Pantoprazole 40 mg EC Tab PO SCH ×2 (10:28→17:17)
[2018-03-23] MEDS: Tetrahydrozoline Opht 0.05% Sol (15 ml) OU PRN (10:29)
--- NOTE | 2018-03-23 11:56 | HP ---
DATE OF EXAM: 03/23/2018 HISTORY OF PRESENT ILLNESS: I saw Ms. Baker in the Transitional Care Unit. I have known her for a long time. She came over from the hospital side. She is an 82-year-old female who presented with shortness of breath. She was in acute CHF, left pneumonia with edema. She has history of CAD, AFib and she is improved enough that she could be moved over to the transitional care for physical therapy and further diuresing and medications. She had bilateral lower leg swelling, was not taken any medications. She is very stubborn. PAST MEDICAL HISTORY: Atrial fibrillation, hypertension, diabetes, CAD, CHF, COPD, renal cancer status post nephrectomy, lung cancer status post lobectomy and anxiety, chronic lower extremity pain, and anemia. She has edema which is improved with the Lasix, shortness of breath is improved. She has some dementia. She has been syncope in the past. She wears glasses, right nephrectomy. She had blood transfusions, arthritis. She has rectal bleeding at time. She had reflux, pancreatitis, anxiety. FAMILY HISTORY: Unknown. SOCIAL HISTORY: Former smoker. No alcohol. No drugs. ALLERGIES: NO KNOWN DRUG ALLERGIES. MEDICATIONS: She is currently on Aricept, aspirin, Cardizem, Colace, DuoNebs, Eliquis, Lasix, Lipitor, Lopressor, Merrem, Protonix, Ultram, Visine, and Xanax. REVIEW OF SYSTEMS: No acute vision or hearing changes. No sore throat. No chest pain. The shortness of breath is much improved. The leg edema is much improved. No abdominal pain. No nausea, vomiting, constipation, diarrhea. No skin issues. Occasionally there is leg pain. She gets medicated. OBJECTIVE: VITAL SIGNS: She has a 98.3 temperature, 73 pulse, 106/64 blood pressure, 18 respiratory rate. GENERAL: Good spirits. Alert and oriented x3 right now. HEENT: Head is atraumatic, normocephalic. Extraocular muscles are intact. Pupils are equal and reactive to light and accommodation. HEART: Regular rate. LUNGS: Decreased breath sounds, but clear. ABDOMEN: Soft, nontender. Positive bowel sounds. EXTREMITIES: Trace edema if any. Cranial nerves II through XII grossly intact. Speech is normal. Nonpalpable thyroid or nonpalpable lymphadenopathy. SKIN: Warm and dry. LABORATORY DATA: She had tests done. She has a 142 sodium, potassium 4.3, BUN 20, creatinine 1.8, GFR is 27, sugar is 102, calcium 8.9, total bili is 0.4, AST is 20, ALT is 32, alk phos 105, total protein 6.8. White count 6.6, hemoglobin 8.9, hematocrit 29.8, platelets of 246. IMPRESSION AND PLAN: She has been seen by Pulmonary. She will be seen by Cardiology, Infectious Disease, Physical Therapy, IV antibiotics. Continue aggressive treatment and care. Marco Farris DO [facility]
[2018-03-23] MEDS: MEROPENEM 500 MG in NS 500 MG/50 ML BAG IVPB SCH (17:15)
--- NOTE | 2018-03-23 18:54 | CP.PCM.CON ---
History of Present Illness - History of Present Illness History of Present Illness: 82 year old female with PMH of atrial fibrillation, COPD, CAD, chronic CHF, renal cell cancer S/P nephrectomy, lung cancer S/P lobectomy, anxiety, dementia came in to [facility] because of fever and cough and the patient was found to have prob able left sided HCAP. She has been on antibiotics and has been doing well and has defervesced. She is now transferred to [facility] for continued medical therapy and physical rehab. Infectious Diseases consult is requested to continue her antibiotic therapy. She is currently comfortable in bed, no fever or chills, no headache or dizziness, no chest pain, no nausea or vomiting, no diarrhea. Review of Systems - Review of Systems All systems: reviewed and no additional remarkable complaints except (as per HPI) Past Patient History - Infectious Disease Hx of Infectious Diseases: None - Tetanus Immunizations Tetanus Immunization: >10 years Ago - Past Medical History & Family History Past Medical History?: Yes - Past Social History Smoking Status: Never Smoked - CARDIAC Hx Cardiac Disorders: Yes Hx Cardia Arrhythmia: Yes Hx Congestive Heart Failure: Yes Hx Hypercholesterolemia: Yes Hx Hypertension: Yes Hx Peripheral Edema: Yes - PULMONARY Hx Respiratory Disorders: Yes Hx Chronic Obstructive Pulmonary Disease (COPD): Yes Hx Pneumonia: Yes - NEUROLOGICAL Hx Dementia: Yes - HEENT Hx HEENT Problems: Yes - RENAL Hx Renal (Kidney) Cancer: Yes - ENDOCRINE/METABOLIC Hx Diabetes Mellitus Type 2: Yes - HEMATOLOGICAL/ONCOLOGICAL Hx Anemia: Yes Hx Cancer: Yes - INTEGUMENTARY Hx Dermatological Problems: Yes - MUSCULOSKELETAL/RHEUMATOLOGICAL Hx Arthritis: Yes Hx Unsteady Gait: Yes - GASTROINTESTINAL Hx Gastroesophageal Reflux: Yes - GENITOURINARY/GYNECOLOGICAL Hx Genitourinary Disorders: Yes (ESBL IN THE URINE H/O) Hx Reproductive Disorders: No - PSYCHIATRIC Hx Anxiety: Yes - SURGICAL HISTORY Hx Surgeries: Yes Other/Comment: lobectomy/nephrectomy - ANESTHESIA Hx Anesthesia: Yes Hx Anesthesia Reactions: No Hx Malignant Hyperthermia: No Meds Allergies/Adverse Reactions: Allergies Allergy/AdvReac Type Severity Reaction Status Date / Time No Known Allergies Allergy Verified 03/22/18 21:14 - Medications Medications: Current Medications Albuterol/Ipratropium (Duoneb 3 Mg/0.5 Mg (3 Ml) Ud) 3 ml IH [id number] PRN; Protocol PRN Reason: sob Alprazolam (Xanax) 0.25 mg PO TID PRN; Protocol PRN Reason: Anxiety Stop: 03/29/18 20:09 Last Admin: 03/23/18 01:45 Dose: 0.25 mg Apixaban (Eliquis) 2.5 mg PO DAILY [facility]; Protocol Aspirin (Aspirin Chewable) 81 mg PO 0800 [facility]; Protocol Atorvastatin Calcium (Lipitor) 20 mg PO DAILY [facility]; Protocol Diltiazem HCl (Cardizem Cd) 180 mg PO DAILY [facility] Docusate Sodium (Colace) 100 mg PO DAILY [facility]; Protocol Donepezil HCl (Aricept) 10 mg PO HS [facility]; Protocol Last Admin: 03/22/18 22:02 Dose: 10 mg Doxycycline Hyclate (Doryx) 100 mg PO Q12 [facility]; Protocol Last Admin: 03/22/18 22:02 Dose: 100 mg Furosemide (Lasix) 40 mg PO DAILY [facility]; Protocol Meropenem/Sodium Chloride (Merrem Iv 500 Mg/Ns 50 Ml) 500 mg in 50 mls @ 100 mls/hr IVPB Q12 [facility]; Protocol Stop: 03/28/18 10:01 Metoprolol Tartrate (Lopressor) 25 mg PO 0800,1700 [facility]; Protocol Pantoprazole Sodium (Protonix Ec Tab) 40 mg PO BID [facility]; Protocol Tetrahydrozoline HCl/Zinc Sulfate (Visine 0.05% Opht Soln) 1 ml OU Q2H PRN; Protocol PRN Reason: Dry eyes Tramadol HCl (Ultram) 50 mg PO TID PRN; Protocol PRN Reason: Pain, moderate (4-7) Last Admin: 03/23/18 05:46 Dose: 50 mg Physical Exam - Constitutional Appears: Non-toxic, No Acute Distress - Head Exam Head Exam: NORMAL INSPECTION - Neck Exam Neck exam: Negative for: Lymphadenopathy, Meningismus - Respiratory Exam Respiratory Exam: Decreased Breath Sounds. absent: Rales - Cardiovascular Exam Cardiovascular Exam: +S1, +S2 - GI/Abdominal Exam GI & Abdominal Exam: Soft. absent: Tenderness Results - Vital Signs Recent Vital Signs: Last Vital Signs Temp 98.1 F 03/22/18 22:30 Pulse 73 03/22/18 22:30 Resp 18 03/22/18 22:30 BP 106/64 03/22/18 22:30 Pulse Ox - Labs Result Diagrams: 03/23/18 07:45 03/23/18 07:45 Assessment & Plan - Assessment and Plan (Free Text) Plan: Assessment SIRS, with fever, source to be determined, consider HCAP history of UTI with ESBL E. coli S/P treatment with antibiotics S/P Severe sepsis R/O intra-abdominal infection atrial fibrillation COPD CAD chronic CHF renal cell cancer S/P nephrectomy lung cancer S/P lobectomy anxiety dementia Plan cultures have been negative; continue Merrem and Doxycycline day 4 for 4-7 days - discussed with dr. Smith previously and discussed with Dr. Farris
[2018-03-24] MEDS: MEROPENEM 500 MG in NS 500 MG/50 ML BAG IVPB SCH ×2 (05:11→17:27)
--- NOTE | 2018-03-24 09:41 | PN ---
DATE: 03/24/2018 SUBJECTIVE: The patient appears comfortable this morning. She is not short of breath at rest. PHYSICAL EXAMINATION: VITAL SIGNS: (Last noted in the computer): Temperature is 97.8, pulse 68, respirations 18, blood pressure 100/64. Oxygen saturation on nasal cannula is 99%. HEENT: Normocephalic, atraumatic. No JVD. CARDIOVASCULAR: Systolic ejection murmur at the lower left sternal border. Questionable S3 gallop. LUNGS: Minimal crackles at the bases. Otherwise clear. EXTREMITIES: Less edema. No cyanosis, no clubbing. Calves are nontender to palpation. GASTROINTESTINAL: Abdomen is soft, nontender, nondistended. Bowel sounds are positive. SKIN: No acute rash. NEUROLOGIC: Exam limited at the present time. IMPRESSION: 1. Acute congestive heart failure. 2. Rule out pneumonia - left lower lobe. 3. Mild anemia. 4. Coronary artery disease. 5. Chronic atrial fibrillation. PLAN: The patient appears comfortable this morning. She is not short of breath at rest. She does state to feeling better overall. On physical exam, there is no significant bronchospasm noted. In addition, there is no significant alveolar-arterial gradient. I will continue with the nebulizer treatments on a p.r.n. basis. Inputs by Cardiology and Infectious Disease are also noted. Clinical status of the patient appears significantly improved - compared to the initial presentation. I will discuss the above with Dr. Farris. Jake Smith MD [facility]
[2018-03-24] MEDS: diltiaZEM 180 mg/24 Hours CD Cap PO SCH (10:05)
[2018-03-24] MEDS: Pantoprazole 40 mg EC Tab PO SCH ×2 (10:08→17:28)
[2018-03-24] MEDS: Tetrahydrozoline Opht 0.05% Sol (15 ml) OU PRN (10:32)
--- NOTE | 2018-03-24 13:46 | PN ---
DATE: 03/24/2018 SUBJECTIVE: I saw her in the transitional care unit. She is resting comfortably in bed. She is feeling a bit better. She is on Aricept, aspirin, Cardizem, Colace, Doryx, DuoNeb, Eliquis, Lasix, Lipitor, Lopressor, Merrem IV, Protonix, Ultram, Visine, and Xanax. She is eating okay. She is walking with the therapist fairly well, improving. PHYSICAL EXAMINATION: VITAL SIGNS: She has a 97.8 temperature, 68 pulse, 130/65 blood pressure, 18 respiratory rate, 99% O2 sat. HEAD: Atraumatic, normocephalic. HEART: Regular rate. LUNGS: Decreased breath sounds, but clear. ABDOMEN: Soft. No edema. EXTREMITIES: Better. LABORATORY DATA: She had 6.6 white count, 8.9 hemoglobin, 246 platelets. Sodium 142, potassium 4.3, BUN 28, creatinine 1.8. Sugar is 102, calcium is 8.9. AST is 20, ALT is 32, alk phos 105. ASSESSMENT AND PLAN: She is being seen by Infectious Disease and Pulmonary. She had fever and cough, left-sided pneumonia, on antibiotics, physical therapy and IV antibiotics before she goes home. She had systemic inflammatory response syndrome and urinary tract infection history. Merrem and doxycycline. Continue aggressive treatment and care. Get her out of bed to chair, physical therapy. We will check her labs tomorrow. Marco Farris DO [facility]
--- NOTE | 2018-03-24 13:56 | PN ---
DATE: 03/24/2018 SUBJECTIVE: The patient is without shortness of breath. PHYSICAL EXAMINATION: VITAL SIGNS: Blood pressure is 116/67, heart rates in the 60s. NECK: Negative JVD. LUNGS: Without rales. HEART: S1, S2. EXTREMITIES: Without change. LABORATORY DATA: Reviewed. IMPRESSION: 1. Congestive heart failure, resolved. 2. Severe pulmonary retention. 3. Anemia. 4. Dyspnea is resolved. 5. Renal insufficiency. PLAN: Given these findings, the patient is doing well with physical therapy. We will continue TCU care. Oswald Fonseca MD
--- NOTE | 2018-03-24 15:40 | CP.PCM.PN ---
Subjective - Date & Time of Evaluation Date of Evaluation: 03/24/18 Time of Evaluation: 10:00 - Subjective Subjective: Comfortable, not short of breath at rest, no diarrhea, no fevers. Objective - Vital Signs/Intake and Output Vital Signs (last 24 hours): Temp Pulse Resp BP Pulse Ox 97.8 F 68 18 100/64 99 03/23/18 16:00 03/23/18 17:59 03/23/18 16:00 03/23/18 17:59 03/23/18 16:00 - Medications Medications: Current Medications Albuterol/Ipratropium (Duoneb 3 Mg/0.5 Mg (3 Ml) Ud) 3 ml IH [id number] PRN; Protocol PRN Reason: sob Alprazolam (Xanax) 0.25 mg PO TID PRN; Protocol PRN Reason: Anxiety Stop: 03/29/18 20:09 Last Admin: 03/23/18 01:45 Dose: 0.25 mg Apixaban (Eliquis) 2.5 mg PO DAILY ISAI; Protocol Last Admin: 03/23/18 10:27 Dose: 2.5 mg Aspirin (Aspirin Chewable) 81 mg PO 0800 [facility]; Protocol Last Admin: 03/23/18 08:28 Dose: 81 mg Atorvastatin Calcium (Lipitor) 20 mg PO DAILY [facility]AI; Protocol Last Admin: 03/23/18 10:28 Dose: 20 mg Diltiazem HCl (Cardizem Cd) 180 mg PO DAILY [facility]AI Last Admin: 03/23/18 10:20 Dose: 180 mg Docusate Sodium (Colace) 100 mg PO DAILY [facility]; Protocol Last Admin: 03/23/18 10:24 Dose: 100 mg Donepezil HCl (Aricept) 10 mg PO HS ISAI; Protocol Last Admin: 03/22/18 22:02 Dose: 10 mg Doxycycline Hyclate (Doryx) 100 mg PO Q12 [facility]; Protocol Last Admin: 03/23/18 10:27 Dose: 100 mg Furosemide (Lasix) 40 mg PO DAILY [facility]; Protocol Last Admin: 03/23/18 10:27 Dose: 40 mg Meropenem/Sodium Chloride (Merrem Iv 500 Mg/Ns 50 Ml) 500 mg in 50 mls @ 100 mls/hr IVPB 0600,1800 [facility]; Protocol Stop: 01/21/19 18:01 Last Admin: 03/23/18 17:15 Dose: 100 mls/hr Metoprolol Tartrate (Lopressor) 25 mg PO 0800,1700 IS[facility]; Protocol Last Admin: 03/23/18 17:59 Dose: Not Given Pantoprazole Sodium (Protonix Ec Tab) 40 mg PO BID ISAI; Protocol Last Admin: 03/23/18 17:17 Dose: 40 mg Tetrahydrozoline HCl/Zinc Sulfate (Visine 0.05% Opht Soln) 1 ml OU Q2H PRN; Protocol PRN Reason: Dry eyes Last Admin: 03/23/18 10:29 Dose: 1 u Tramadol HCl (Ultram) 50 mg PO TID PRN; Protocol PRN Reason: Pain, moderate (4-7) Last Admin: 03/23/18 18:02 Dose: 50 mg - Labs Labs: 03/23/18 07:45 03/23/18 07:45 - Constitutional Appears: No Acute Distress, Chronically Ill - Head Exam Head Exam: NORMAL INSPECTION - Respiratory Exam Respiratory Exam: Decreased Breath Sounds - Cardiovascular Exam Cardiovascular Exam: +S1, +S2 - GI/Abdominal Exam GI & Abdominal Exam: Soft. absent: Tenderness Assessment and Plan - Assessment and Plan (Free Text) Plan: Assessment SIRS, with fever, consider HCAP history of UTI with ESBL E. coli S/P treatment with antibiotics S/P Severe sepsis R/O intra-abdominal infection atrial fibrillation COPD CAD chronic CHF renal cell cancer S/P nephrectomy lung cancer S/P lobectomy anxiety dementia Plan cultures have been negative; continue Merrem and Doxycycline day 5 for up to 7 days - discussed with dr. Smith previously and discussed with Dr. Farris
[2018-03-25] MEDS: MEROPENEM 500 MG in NS 500 MG/50 ML BAG IVPB SCH ×2 (05:38→17:04)
[2018-03-25 06:59] LABS: HEMOGLOBIN 8.9 g/dL (12.0-16.0); MEAN CELL VOLUME 80.3 fl (80.0-105.0); MEAN CORPUSCULAR HEMOGLOBIN 24.1 pg (25.0-35.0); MEAN PLATELET VOLUME 8.8 fl (7.0-11.0); RBC 3.7 10^6/uL (3.5-6.1); RED CELL DISTRIBUTION WIDTH 22.7 % (11.5-14.5); WHITE BLOOD COUNT 6.7 10^3/uL (4.5-11.0)
[2018-03-25 07:46] LABS: ALB/GLOB RATIO 0.9 (1.1-1.8); ALBUMIN 3.3 g/dL (3.0-4.8); CALCIUM 9.2 mg/dL (8.4-10.5)
--- NOTE | 2018-03-25 08:56 | PN ---
DATE: 03/25/2018 PULMONARY NOTE SUBJECTIVE: The patient appears comfortable this morning. She is not short of breath at rest. PHYSICAL EXAMINATION: VITAL SIGNS: Temperature is 97.7, pulse 73, respirations 16, blood pressure 129/73 and oxygen saturation on room air - 92%. Oxygen saturation on nasal cannula - 100%. HEENT: Normocephalic and atraumatic. No JVD. CARDIOVASCULAR: Systolic ejection murmur at the lower left sternal border. Questionable S3 gallop. LUNGS: Minimal crackles at the bases. Otherwise clear. EXTREMITIES: Less edema. No cyanosis. No clubbing. Calves are nontender to palpation. GI: Abdomen is soft, nontender and nondistended. Bowel sounds are positive. SKIN: No acute rash. NEUROLOGIC: Limited at the present time. IMPRESSION: 1. Acute congestive heart failure. 2. Rule out pneumonia - left lower lobe. 3. Mild anemia. 4. Coronary artery disease. 5. Chronic atrial fibrillation. PLAN: The patient appears comfortable this morning. She is not short of breath at rest. She does state to feeling better overall. On physical exam, there is no significant bronchospasm noted. In addition, there is no significant alveolar-arterial gradient. I will continue with the current nebulizer treatments on a p.r.n. basis. The patient remains on antibiotic therapy - as per Infectious Disease. There are no temperatures noted. The leukocytosis has fully resolved. Input by Cardiology (Dr. Fonseca) is also noted. Clinical status of the patient is certainly improved - compared to his initial presentation. I will discuss the above with Dr. Farris. Jake Smith MD MTDD
[2018-03-25] MEDS: diltiaZEM 180 mg/24 Hours CD Cap PO SCH (09:37)
[2018-03-25] MEDS: Pantoprazole 40 mg EC Tab PO SCH ×2 (09:39→17:05)
--- NOTE | 2018-03-25 10:50 | PN ---
DATE: 03/25/2018 SUBJECTIVE: I saw in the Transitional Care Unit. She is having a good morning this morning. She is ready for breakfast. She is ready for physical therapy. She is in good spirits. MEDICATIONS: She is on Aricept, chewable aspirin, Cardizem, Colace, Doryx, DuoNebs, Eliquis, Lasix, Lipitor, Lopressor, Merrem IV, Protonix, Ultram, Visine, and Xanax. PHYSICAL EXAMINATION: VITAL SIGNS: She has a 97.7 temperature, 63 pulse, 108/59 blood pressure, 16 respiratory rate, 90% O2 sat on room air at 3 liters. HEENT: Head: Atraumatic, normocephalic. HEART: Regular rate. LUNGS: Decreased breath sounds but clear. ABDOMEN: Soft. EXTREMITIES: No edema. LABORATORY DATA: She has a 6.7 white count, 8.9 hemoglobin, 29.7 hematocrit with 215 platelets. 141 sodium, potassium 4.4, BUN 35, creatinine 1.7, GFR is 35. Sugar 97, calcium is 9.2, total bili is 0.4, AST is 27, ALT is 24, alkaline phosphatase 108, total protein 6.8. Overall, she has better day than the other day. She is doing better. She is being seen by Infectious Disease and by Pulmonary. She is doing well with physical therapy. She is eating well. She is in good spirits. I do see that she is improving which is great. Not short of breath. She is here for SIRS, pneumonia, history of UTI. We will continue with aggressive treatment and care in the Transitional Care Unit. IV antibiotics and diet and physical therapy. Marco Farris DO
--- NOTE | 2018-03-25 14:24 | PN ---
DATE: 03/25/2018 CARDIOLOGY FOLLOWUP SUBJECTIVE: The patient is comfortable. No shortness of breath. No chest pain. PHYSICAL EXAMINATION: VITAL SIGNS: Blood pressure is 129/73, heart rates in the 70s. NECK: Negative JVD. LUNGS: Without rales. HEART: S1, S2. EXTREMITIES: Without edema. LABORATORY DATA: Hemoglobin is 8.9. Chemistries, BUN and creatinine are 35 and 1.7. IMPRESSION: 1. Renal insufficiency. 2. Severe pulmonary hypertension. 3. Resolution of congestive heart failure. 4. Anemia. 5. Dyspnea is resolved. ASSESSMENT AND PLAN: Given these findings, the patient's cardiovascular status is stable. She is currently tolerating physical therapy well. Oswald Fonseca MD
--- NOTE | 2018-03-25 16:13 | CP.PCM.PN ---
Subjective - Date & Time of Evaluation Date of Evaluation: 03/25/18 Time of Evaluation: 15:55 - Subjective Subjective: Comfortable in bed, no cough currently, no nausea, no diarrhea, no SOB at rest, feeling well. Objective - Vital Signs/Intake and Output Vital Signs (last 24 hours): Temp Pulse Resp BP Pulse Ox 97 F L 61 16 116/67 100 03/24/18 10:00 03/24/18 10:05 03/24/18 10:00 03/24/18 10:07 03/24/18 10:00 - Medications Medications: Current Medications Albuterol/Ipratropium (Duoneb 3 Mg/0.5 Mg (3 Ml) Ud) 3 ml IH [id number] PRN; Protocol PRN Reason: sob Alprazolam (Xanax) 0.25 mg PO TID PRN; Protocol PRN Reason: Anxiety Stop: 03/29/18 20:09 Last Admin: 03/24/18 04:03 Dose: 0.25 mg Apixaban (Eliquis) 2.5 mg PO DAILY ISAI; Protocol Last Admin: 03/24/18 10:06 Dose: 2.5 mg Aspirin (Aspirin Chewable) 81 mg PO 0800 [facility]; Protocol Last Admin: 03/24/18 07:59 Dose: 81 mg Atorvastatin Calcium (Lipitor) 20 mg PO DAILY [facility]; Protocol Last Admin: 03/24/18 10:07 Dose: 20 mg Diltiazem HCl (Cardizem Cd) 180 mg PO DAILY [facility] Last Admin: 03/24/18 10:05 Dose: 180 mg Docusate Sodium (Colace) 100 mg PO DAILY [facility]; Protocol Last Admin: 03/24/18 10:06 Dose: 100 mg Donepezil HCl (Aricept) 10 mg PO HS ISAI; Protocol Last Admin: 03/23/18 21:30 Dose: 10 mg Doxycycline Hyclate (Doryx) 100 mg PO Q12 [facility]; Protocol Last Admin: 03/24/18 10:06 Dose: 100 mg Furosemide (Lasix) 40 mg PO DAILY [facility]; Protocol Last Admin: 03/24/18 10:07 Dose: 40 mg Meropenem/Sodium Chloride (Merrem Iv 500 Mg/Ns 50 Ml) 500 mg in 50 mls @ 100 mls/hr IVPB 0600,1800 [facility]; Protocol Stop: 03/28/18 18:01 Last Admin: 03/24/18 05:11 Dose: 100 mls/hr Metoprolol Tartrate (Lopressor) 25 mg PO 0800,1700 [facility]; Protocol Last Admin: 03/24/18 07:59 Dose: 25 mg Pantoprazole Sodium (Protonix Ec Tab) 40 mg PO BID [facility]; Protocol Last Admin: 03/24/18 10:08 Dose: 40 mg Tetrahydrozoline HCl/Zinc Sulfate (Visine 0.05% Opht Soln) 1 ml OU Q2H PRN; Protocol PRN Reason: Dry eyes Last Admin: 03/24/18 10:32 Dose: 1 u Tramadol HCl (Ultram) 50 mg PO TID PRN; Protocol PRN Reason: Pain, moderate (4-7) Last Admin: 03/24/18 08:00 Dose: 50 mg - Labs Labs: 03/23/18 07:45 03/23/18 07:45 - Constitutional Appears: Non-toxic, No Acute Distress, Chronically Ill - Head Exam Head Exam: NORMAL INSPECTION - ENT Exam ENT Exam: Mucous Membranes Moist - Neck Exam Neck Exam: absent: Meningismus - Respiratory Exam Respiratory Exam: Decreased Breath Sounds - Cardiovascular Exam Cardiovascular Exam: +S1, +S2 - GI/Abdominal Exam GI & Abdominal Exam: Soft. absent: Tenderness Assessment and Plan - Assessment and Plan (Free Text) Plan: Assessment SIRS, with fever, consider HCAP history of UTI with ESBL E. coli S/P treatment with antibiotics S/P Severe sepsis R/O intra-abdominal infection atrial fibrillation COPD CAD chronic CHF renal cell cancer S/P nephrectomy lung cancer S/P lobectomy anxiety dementia Plan cultures have been negative; continue Merrem and Doxycycline day 6 for up to 7 days - discussed with dr. Smith previously and discussed with Dr. Farris
[2018-03-26] MEDS: MEROPENEM 500 MG in NS 500 MG/50 ML BAG IVPB SCH ×2 (06:41→17:11)
--- NOTE | 2018-03-26 07:30 | PN ---
DATE: 03/26/2018 PULMONARY NOTE SUBJECTIVE: The patient appears comfortable this morning. She is not short of breath at rest. PHYSICAL EXAMINATION: VITALS: (Last noted in the computer): Temperature is 97.6, pulse 75, respirations 18, blood pressure 91/58. Oxygen saturation on nasal cannula is 98-100%. HEENT: Normocephalic, atraumatic. No JVD. CARDIOVASCULAR: Systolic ejection murmur at the lower left sternal border. Questionable S3 gallop. LUNGS: Minimal crackles at the bases. Otherwise clear. EXTREMITIES: Less edema. No cyanosis, no clubbing. Calves are nontender to palpation. GASTROINTESTINAL: Abdomen is soft, nontender, and nondistended. Bowel sounds are positive. SKIN: No acute rash. NEUROLOGIC: Exam limited at the present time. IMPRESSION: 1. Acute congestive heart failure. 2. Rule out pneumonia - left lower lobe. 3. Mild anemia. 4. Coronary artery disease. 5. Chronic atrial fibrillation. PLAN: The patient appears comfortable this morning. She is not short of breath at rest. She does state to feeling better overall. On physical exam, there is no significant bronchospasm noted. In addition, there is no significant alveolar-arterial gradient. I will continue the current nebulizer treatments on a p.r.n. basis. The patient remains on antibiotic therapy - as per Infectious Disease. There are no temperatures noted. The leukocytosis has fully resolved. Input by Cardiology (Dr. Fonseca) is also noted. The patient remains on Lasix. Clinical status of the patient is significantly improved - compared to the initial presentation. I will discuss the above with Dr. Farris later this morning. Jake Smith MD [facility]
[2018-03-26 08:36] LABS: HEMOGLOBIN 8.8 g/dL (12.0-16.0); MEAN CELL VOLUME 80.2 fl (80.0-105.0); MEAN CORPUSCULAR HEMOGLOBIN 24.2 pg (25.0-35.0); MEAN CORPUSCULAR HGB CONC 30.2 g/dl (31.0-37.0); MEAN PLATELET VOLUME 9.2 fl (7.0-11.0); RBC 3.63 10^6/uL (3.5-6.1); RED CELL DISTRIBUTION WIDTH 22.6 % (11.5-14.5); WHITE BLOOD COUNT 6.7 10^3/uL (4.5-11.0)
[2018-03-26 09:18] LABS: ALB/GLOB RATIO 0.9 (1.1-1.8); ALBUMIN 3.1 g/dL (3.0-4.8); CALCIUM 9.3 mg/dL (8.4-10.5)
[2018-03-26] MEDS: diltiaZEM 180 mg/24 Hours CD Cap PO SCH (09:19)
[2018-03-26] MEDS: Pantoprazole 40 mg EC Tab PO SCH ×2 (09:26→17:11)
--- NOTE | 2018-03-26 12:32 | PN ---
DATE: 03/26/2018 SUBJECTIVE: She is resting in bed. She tells me her morning's are worse than the afternoon. She which she wakes up. MEDICATIONS: She is on Aricept, aspirin, Cardizem, Colace, Doryx, DuoNebs, Eliquis, Lasix, Lipitor, Lopressor, Merrem IV, Protonix, Ultram, Visine, and Xanax. OBJECTIVE: VITAL SIGNS: She has a 97.4 temperature, 59 pulse, 127/62 blood pressure, 20 respiratory rate, 92% O2 sat. HEENT: Head is atraumatic, normocephalic. HEART: Regular rate. LUNGS: Clear to auscultation. ABDOMEN: Soft. EXTREMITIES: No edema. LABORATORY DATA: Last labs; she has 6.7 white count, 8.8 hemoglobin, 29.1 hematocrit with a 206 platelets. She has 141 sodium, potassium 4, BUN is 40, creatinine 1.5, GFR is 33, sugar is 97, calcium is 9.3, total bili is 0.4, AST is 31, ALT 37, alk phos 105, total protein 6.5. IMPRESSION AND PLAN: Overall she is doing well. We will continue with aggressive treatment and care, physical therapy and . Marco Farris DO MTDD
--- NOTE | 2018-03-26 14:29 | CP.PCM.PN ---
Subjective - Date & Time of Evaluation Date of Evaluation: 03/26/18 Time of Evaluation: 10:55 - Subjective Subjective: Comfortable in bed, no fevers, not in distress, no cough at rest. Objective - Vital Signs/Intake and Output Vital Signs (last 24 hours): Temp Pulse Resp BP Pulse Ox 97.7 F 73 16 129/73 92 L 03/24/18 16:00 03/25/18 09:37 03/24/18 16:00 03/25/18 09:39 03/24/18 16:54 - Medications Medications: Current Medications Albuterol/Ipratropium (Duoneb 3 Mg/0.5 Mg (3 Ml) Ud) 3 ml IH [id number] PRN; Protocol PRN Reason: sob Alprazolam (Xanax) 0.25 mg PO TID PRN; Protocol PRN Reason: Anxiety Stop: 03/29/18 20:09 Last Admin: 03/24/18 20:36 Dose: 0.25 mg Apixaban (Eliquis) 2.5 mg PO DAILY ISAI; Protocol Last Admin: 03/25/18 09:38 Dose: 2.5 mg Aspirin (Aspirin Chewable) 81 mg PO 0800 ISAI; Protocol Last Admin: 03/25/18 08:04 Dose: 81 mg Atorvastatin Calcium (Lipitor) 20 mg PO DAILY ISAI; Protocol Last Admin: 03/25/18 09:39 Dose: 20 mg Diltiazem HCl (Cardizem Cd) 180 mg PO DAILY [facility]AI Last Admin: 03/25/18 09:37 Dose: 180 mg Docusate Sodium (Colace) 100 mg PO DAILY [facility]AI; Protocol Last Admin: 03/25/18 09:38 Dose: 100 mg Donepezil HCl (Aricept) 10 mg PO HS ISAI; Protocol Last Admin: 03/24/18 21:03 Dose: 10 mg Doxycycline Hyclate (Doryx) 100 mg PO Q12 ISAI; Protocol Last Admin: 03/25/18 09:38 Dose: 100 mg Furosemide (Lasix) 40 mg PO DAILY [facility]AI; Protocol Last Admin: 03/25/18 09:39 Dose: 40 mg Meropenem/Sodium Chloride (Merrem Iv 500 Mg/Ns 50 Ml) 500 mg in 50 mls @ 100 mls/hr IVPB 0600,1800 [facility]; Protocol Stop: 03/28/18 18:01 Last Admin: 03/25/18 05:38 Dose: 100 mls/hr Metoprolol Tartrate (Lopressor) 25 mg PO 0800,1700 ISAI; Protocol Last Admin: 03/25/18 08:05 Dose: 25 mg Pantoprazole Sodium (Protonix Ec Tab) 40 mg PO BID ISAI; Protocol Last Admin: 03/25/18 09:39 Dose: 40 mg Tetrahydrozoline HCl/Zinc Sulfate (Visine 0.05% Opht Soln) 1 ml OU Q2H PRN; Protocol PRN Reason: Dry eyes Last Admin: 03/24/18 10:32 Dose: 1 u Tramadol HCl (Ultram) 50 mg PO TID PRN; Protocol PRN Reason: Pain, moderate (4-7) Last Admin: 03/25/18 06:35 Dose: 50 mg - Labs Labs: 03/25/18 06:47 03/25/18 06:47 - Constitutional Appears: Chronically Ill - Head Exam Head Exam: NORMAL INSPECTION - Neck Exam Neck Exam: absent: Meningismus - Respiratory Exam Respiratory Exam: Decreased Breath Sounds - Cardiovascular Exam Cardiovascular Exam: +S1, +S2 - GI/Abdominal Exam GI & Abdominal Exam: Soft. absent: Tenderness Assessment and Plan - Assessment and Plan (Free Text) Plan: Assessment SIRS, with fever, consider HCAP history of UTI with ESBL E. coli S/P treatment with antibiotics S/P Severe sepsis R/O intra-abdominal infection atrial fibrillation COPD CAD chronic CHF renal cell cancer S/P nephrectomy lung cancer S/P lobectomy anxiety dementia Plan cultures have been negative; continue Merrem and Doxycycline day 7 for up to 7 days - discussed with dr. Smith previously and discussed with Dr. Farris
[2018-03-27] MEDS: MEROPENEM 500 MG in NS 500 MG/50 ML BAG IVPB SCH ×2 (05:18→17:26)
[2018-03-27] MEDS: diltiaZEM 180 mg/24 Hours CD Cap PO SCH (09:34)
[2018-03-27] MEDS: Pantoprazole 40 mg EC Tab PO SCH ×2 (09:39→17:27)
--- NOTE | 2018-03-27 13:15 | PN ---
DATE: 03/27/2018 SUBJECTIVE: I saw Sarah resting comfortably in the TCU. She slept well. She is eating well. She actually feels good this morning. MEDICATIONS: She is on Aricept, aspirin, Cardizem, Colace, Doryx, DuoNebs, Eliquis, Lasix, Lipitor, Lopressor, Merrem, Protonix, Ultram, Visine, and Xanax. OBJECTIVE: VITAL SIGNS: She has a 97.5 temperature, 62 pulse, 115/59 blood pressure, 18 respiratory rate, 98% O2 sat. HEENT: Head is atraumatic, normocephalic. HEART: Regular rate. LUNGS: Decreased breath sounds, but clear. ABDOMEN: Soft. EXTREMITIES: No edema. LABORATORY DATA: Last labs on the 03/26/2018; she has 8.8 hemoglobin, 40 BUN, creatinine 1.5, I am going to repeat labs for tomorrow. IMPRESSION AND PLAN: I encouraged her to get out of bed to chair every day for the physical therapy, eat the food. We will continuing to treat her infection. She has congestive heart failure, left pneumonia, coronary artery disease, atrial fibrillation, systemic inflammatory response syndrome and hopefully she will continue to improve. Marco Farris DO
--- NOTE | 2018-03-27 13:17 | CP.PCM.PN ---
Subjective - Date & Time of Evaluation Date of Evaluation: 03/27/18 Time of Evaluation: 10:00 - Subjective Subjective: Afebrile, comfortable in bed, no shortness of breath at rest, no chest pain, no diarrhea. Objective - Vital Signs/Intake and Output Vital Signs (last 24 hours): Temp Pulse Resp BP Pulse Ox 97.4 F L 59 L 20 127/62 93 L 03/26/18 10:00 03/26/18 10:00 03/26/18 10:00 03/26/18 10:00 03/26/18 10:00 - Medications Medications: Current Medications Albuterol/Ipratropium (Duoneb 3 Mg/0.5 Mg (3 Ml) Ud) 3 ml IH [id number] PRN; Protocol PRN Reason: sob Alprazolam (Xanax) 0.25 mg PO TID PRN; Protocol PRN Reason: Anxiety Stop: 03/29/18 20:09 Last Admin: 03/26/18 10:59 Dose: 0.25 mg Apixaban (Eliquis) 2.5 mg PO DAILY ISAI; Protocol Last Admin: 03/26/18 09:20 Dose: 2.5 mg Aspirin (Aspirin Chewable) 81 mg PO 0800 ISAI; Protocol Last Admin: 03/26/18 08:06 Dose: 81 mg Atorvastatin Calcium (Lipitor) 20 mg PO DAILY ISAI; Protocol Last Admin: 03/26/18 09:20 Dose: 20 mg Diltiazem HCl (Cardizem Cd) 180 mg PO DAILY ISAI Last Admin: 03/26/18 09:19 Dose: 180 mg Docusate Sodium (Colace) 100 mg PO DAILY ISAI; Protocol Last Admin: 03/26/18 09:19 Dose: 100 mg Donepezil HCl (Aricept) 10 mg PO HS ISAI; Protocol Last Admin: 03/25/18 21:24 Dose: 10 mg Doxycycline Hyclate (Doryx) 100 mg PO Q12 [facility]; Protocol Last Admin: 03/26/18 09:20 Dose: 100 mg Furosemide (Lasix) 40 mg PO DAILY [facility]AI; Protocol Last Admin: 03/26/18 09:23 Dose: 40 mg Meropenem/Sodium Chloride (Merrem Iv 500 Mg/Ns 50 Ml) 500 mg in 50 mls @ 100 mls/hr IVPB 0600,1800 IS[facility]; Protocol Stop: 03/28/18 18:01 Last Admin: 03/26/18 06:41 Dose: 100 mls/hr Metoprolol Tartrate (Lopressor) 25 mg PO 0800,1700 ISAI; Protocol Last Admin: 03/26/18 08:06 Dose: 25 mg Pantoprazole Sodium (Protonix Ec Tab) 40 mg PO BID ISAI; Protocol Last Admin: 03/26/18 09:26 Dose: 40 mg Tetrahydrozoline HCl/Zinc Sulfate (Visine 0.05% Opht Soln) 1 ml OU Q2H PRN; Protocol PRN Reason: Dry eyes Last Admin: 03/24/18 10:32 Dose: 1 u Tramadol HCl (Ultram) 50 mg PO TID PRN; Protocol PRN Reason: Pain, moderate (4-7) Last Admin: 03/26/18 09:22 Dose: 50 mg - Labs Labs: 03/26/18 08:20 03/26/18 08:20 - Constitutional Appears: Chronically Ill - Head Exam Head Exam: NORMAL INSPECTION - Respiratory Exam Respiratory Exam: Decreased Breath Sounds - Cardiovascular Exam Cardiovascular Exam: +S1, +S2 - GI/Abdominal Exam GI & Abdominal Exam: Soft. absent: Tenderness Assessment and Plan - Assessment and Plan (Free Text) Plan: Assessment SIRS, with fever, consider HCAP, S/P treatment with antibiotics history of UTI with ESBL E. coli S/P treatment with antibiotics S/P Severe sepsis R/O intra-abdominal infection atrial fibrillation COPD CAD chronic CHF renal cell cancer S/P nephrectomy lung cancer S/P lobectomy anxiety dementia Plan cultures have been negative; completed 7 days of Merrem and Doxycycline - discussed with dr. Smith previously and discussed with Dr. Farris previously will continue to monitor clinically off antibiotics since she is at risk for nosocomial infections
[2018-03-28] MEDS: MEROPENEM 500 MG in NS 500 MG/50 ML BAG IVPB SCH (05:08)
[2018-03-28 07:08] LABS: HEMOGLOBIN 8.9 g/dL (12.0-16.0); MEAN CELL VOLUME 80.9 fl (80.0-105.0); MEAN CORPUSCULAR HEMOGLOBIN 24.3 pg (25.0-35.0); MEAN PLATELET VOLUME 9.7 fl (7.0-11.0); RBC 3.67 10^6/uL (3.5-6.1); RED CELL DISTRIBUTION WIDTH 22.3 % (11.5-14.5); WHITE BLOOD COUNT 6.1 10^3/uL (4.5-11.0)
[2018-03-28 07:26] LABS: ALBUMIN 3.4 g/dL (3.0-4.8); CALCIUM 9.6 mg/dL (8.4-10.5)
--- NOTE | 2018-03-28 09:00 | PN ---
DATE: 03/28/2018 SUBJECTIVE: The patient appears comfortable this morning. She is not short of breath at rest. PHYSICAL EXAMINATION: VITAL SIGNS: Temperature is 97.5, pulse 74, respirations 18, blood pressure 106/61. Oxygen saturation on nasal cannula is 98% to 100%. HEENT: Normocephalic, atraumatic. No JVD. CARDIOVASCULAR: Systolic ejection murmur at the lower left sternal border. Questionable S3 gallop. LUNGS: Minimal/less crackles at the bases. Otherwise clear. EXTREMITIES: Less edema. No cyanosis, no clubbing. Calves are nontender to palpation. GASTROINTESTINAL: Abdomen is soft, nontender and nondistended. Bowel sounds are positive. SKIN: No acute rash. NEUROLOGIC: Exam limited at the present time. IMPRESSION: 1. Acute congestive heart failure. 2. Rule out pneumonia - left lower lobe. 3. Mild anemia. 4. Coronary artery disease. 5. Chronic atrial fibrillation. PLAN: The patient appears quite comfortable this morning. She is not short of breath at rest. She does state to feeling much better overall. On physical exam, there is no significant bronchospasm. In addition, the oxygen saturation on nasal cannula is now 98% to 100%. I will continue the current nebulizer treatments on a p.r.n. basis. The patient remains on antibiotic therapy - as per Infectious Disease. Input by Dr. Mercado is noted. There are no temperatures noted. The leukocytosis has fully resolved. Clinical status of the patient is significantly improved - compared to last week. I would continue with the treatment for congestive heart failure as per Cardiology. The patient remains on Lasix. I will discuss the above with the attending physician. Jake Smith MD MTDEugene
[2018-03-28] MEDS: diltiaZEM 180 mg/24 Hours CD Cap PO SCH (09:57)
[2018-03-28] MEDS: Pantoprazole 40 mg EC Tab PO SCH ×2 (10:01→16:30)
--- NOTE | 2018-03-28 11:26 | CP.PCM.PN ---
Subjective - Date & Time of Evaluation Date of Evaluation: 03/28/18 Time of Evaluation: 09:40 - Subjective Subjective: Comfortable in bed, no fevers, no SOB at rest, no cough currently. Objective - Vital Signs/Intake and Output Vital Signs (last 24 hours): Temp Pulse Resp BP Pulse Ox 97.5 F L 62 18 105/60 98 03/27/18 10:00 03/28/18 09:57 03/27/18 10:00 03/28/18 10:00 03/27/18 10:00 - Medications Medications: Current Medications Albuterol/Ipratropium (Duoneb 3 Mg/0.5 Mg (3 Ml) Ud) 3 ml IH [id number] PRN; Protocol PRN Reason: sob Alprazolam (Xanax) 0.25 mg PO TID PRN; Protocol PRN Reason: Anxiety Stop: 03/29/18 20:09 Last Admin: 03/28/18 05:07 Dose: 0.25 mg Apixaban (Eliquis) 2.5 mg PO DAILY [facility]; Protocol Last Admin: 03/28/18 09:59 Dose: 2.5 mg Aspirin (Aspirin Chewable) 81 mg PO 0800 [facility]; Protocol Last Admin: 03/28/18 07:57 Dose: 81 mg Atorvastatin Calcium (Lipitor) 20 mg PO DAILY [facility]; Protocol Last Admin: 03/28/18 10:01 Dose: 20 mg Diltiazem HCl (Cardizem Cd) 180 mg PO DAILY [facility] Last Admin: 03/28/18 09:57 Dose: Not Given Docusate Sodium (Colace) 100 mg PO DAILY [facility]; Protocol Last Admin: 03/28/18 09:48 Dose: Not Given Donepezil HCl (Aricept) 10 mg PO HS [facility]; Protocol Last Admin: 03/27/18 21:19 Dose: 10 mg Furosemide (Lasix) 40 mg PO DAILY [facility]; Protocol Last Admin: 03/28/18 10:00 Dose: 40 mg Metoprolol Tartrate (Lopressor) 25 mg PO 0800,1700 [facility]; Protocol Last Admin: 03/28/18 07:57 Dose: 25 mg Pantoprazole Sodium (Protonix Ec Tab) 40 mg PO 0600,1630 [facility]; Protocol Tetrahydrozoline HCl/Zinc Sulfate (Visine 0.05% Opht Soln) 1 ml OU Q2H PRN; Protocol PRN Reason: Dry eyes Last Admin: 03/24/18 10:32 Dose: 1 u Tramadol HCl (Ultram) 50 mg PO TID PRN; Protocol PRN Reason: Pain, moderate (4-7) Last Admin: 03/27/18 20:24 Dose: 50 mg - Labs Labs: 03/28/18 06:30 03/28/18 06:30 - Constitutional Appears: Chronically Ill - Head Exam Head Exam: NORMAL INSPECTION - Neck Exam Neck Exam: absent: Meningismus - Respiratory Exam Respiratory Exam: Decreased Breath Sounds. absent: Rales - Cardiovascular Exam Cardiovascular Exam: +S1, +S2 - GI/Abdominal Exam GI & Abdominal Exam: Soft. absent: Tenderness Assessment and Plan - Assessment and Plan (Free Text) Plan: Assessment S/P SIRS, with fever, consider HCAP, S/P treatment with antibiotics history of UTI with ESBL E. coli S/P treatment with antibiotics S/P Severe sepsis R/O intra-abdominal infection atrial fibrillation COPD CAD chronic CHF renal cell cancer S/P nephrectomy lung cancer S/P lobectomy anxiety dementia Plan cultures have been negative; completed 7 days of Merrem and Doxycycline - discussed with dr. Smith previously and discussed with Dr. Farris previously will continue to monitor clinically off antibiotics since she is at risk for hospital-acquired infections
--- NOTE | 2018-03-28 12:35 | PN ---
DATE: 03/28/2018 SUBJECTIVE: I saw Sarah resting comfortably in bed. She slept well. She is feeling well. She is doing well on physical therapy. MEDICATIONS: She is on Aricept, aspirin, Cardizem, Colace, Doryx, DuoNeb, Eliquis, Lasix, Lipitor, Lopressor, Merrem IV, Protonix, Ultram, Visine, and Xanax. PHYSICAL EXAMINATION VITAL SIGNS: She has 97.5 temperature, 85 pulse, 113/71 blood pressure, 18 respiratory rate, 98% O2 sat on room air. HEAD: Atraumatic, normocephalic. HEART: Regular rate. LUNGS: Clear to auscultation. ABDOMEN: Soft. EXTREMITIES: No edema. She feels very well. LABORATORY DATA: She has 6.1 white count, 8.9 hemoglobin, 29.7 hematocrit with 208 platelets. Sodium 145, potassium 4.3, BUN 48, creatinine 1.7 holding. GFR is 29. Sugar is 105, calcium 9.6. Total bili is 0.3. AST is 52, ALT is 41, alkaline phosphatase 91, and total protein is 6.9. ASSESSMENT AND PLAN: She is being seen by Pulmonary and Infectious Disease. She has two more days in the transitional care unit, then she goes home. She had systemic inflammatory response syndrome, on intravenous antibiotics and hopefully in the next two days should do well. We will continue with aggressive treatment and care and physical therapy. Marco Farris DO
--- NOTE | 2018-03-28 15:13 | PN ---
DATE: 03/28/2018 CARDIOLOGY FOLLOWUP SUBJECTIVE: The patient is ambulating with physical therapy, went up the stairs with help, without issues. PHYSICAL EXAMINATION: VITAL SIGNS: Blood pressure is 105/60, heart rate is in the 60s. NECK: Negative JVD. LUNGS: Without rales. HEART: S1, S2. EXTREMITIES: Without edema. LABORATORY DATA: Hemoglobin is 8.9. Chemistries, BUN and creatinine is 48 and 1.7. IMPRESSION: 1. Resolution of congestive heart failure. 2. Severe pulmonary hypertension. 3. Chronic obstructive pulmonary disease. 4. Prerenal azotemia. 5. Weakness which is better. Given these findings, we will decrease her Lasix to 20 mg daily. Oswald Fonseca MD
[2018-03-29] MEDS: Pantoprazole 40 mg EC Tab PO SCH ×2 (05:06→17:21)
[2018-03-29 06:48] LABS: HEMOGLOBIN 9.5 g/dL (12.0-16.0); MEAN CELL VOLUME 80.9 fl (80.0-105.0); MEAN CORPUSCULAR HEMOGLOBIN 24.2 pg (25.0-35.0); MEAN PLATELET VOLUME 10.4 fl (7.0-11.0); RBC 3.92 10^6/uL (3.5-6.1); WHITE BLOOD COUNT 5.8 10^3/uL (4.5-11.0)
[2018-03-29 07:20] LABS: ALBUMIN 3.3 g/dL (3.0-4.8); CALCIUM 9.7 mg/dL (8.4-10.5)
[2018-03-29] MEDS: diltiaZEM 180 mg/24 Hours CD Cap PO SCH (10:07)
--- NOTE | 2018-03-29 11:26 | PN ---
DATE: 03/29/2018 SUBJECTIVE: I saw her resting comfortably in the transitional care unit. She is feeling well. She had breakfast well. She is on Aricept, aspirin, Cardizem, Colace, DuoNeb, Eliquis, Lasix, Lipitor, Lopressor, Protonix, Ultram, Visine, and Xanax. PHYSICAL EXAMINATION: She is off the IV antibiotics at this time. She has a 97.5 temperature, 62 pulse, 113/71 blood pressure, 18 respiratory rate, 90% O2 sat on nasal cannula. HEAD: Atraumatic, normocephalic. HEART: Regular rate. LUNGS: Decreased breath sounds but clear. ABDOMEN: Soft. EXTREMITIES: No edema. LABORATORY: She has a 5.8 white count, 9.5 hemoglobin, 31.7 hematocrit with 243 platelets. Sodium 143, potassium is 4.5, BUN is 53, creatinine 1.5, GFR is 33, sugar is 106, calcium is 9.7, total bili is 0.3, AST is 85, ALT is 61, alk phos is 101, total protein 6.7. PLAN: She has to take little more fluid. I am going to add some IV fluids and check her labs tomorrow. The liver enzymes. She has resolution of CHF, severe pulmonary hypertension, COPD, prerenal azotemia, weakness. She is off the IV antibiotics, status post SIRS with fever. I will watch her closely, hopefully discharge her tomorrow. Marco Farris DO
--- NOTE | 2018-03-29 13:25 | CP.PCM.PN ---
Subjective - Date & Time of Evaluation Date of Evaluation: 03/29/18 Time of Evaluation: 11:00 - Subjective Subjective: Afebrile, comfortable, no SOB at rest. Objective - Vital Signs/Intake and Output Vital Signs (last 24 hours): Temp Pulse Resp BP Pulse Ox 97.5 F L 62 18 105/60 98 03/27/18 10:00 03/28/18 09:57 03/27/18 10:00 03/28/18 10:00 03/27/18 10:00 - Medications Medications: Current Medications Albuterol/Ipratropium (Duoneb 3 Mg/0.5 Mg (3 Ml) Ud) 3 ml IH [id number] PRN; Protocol PRN Reason: sob Alprazolam (Xanax) 0.25 mg PO TID PRN; Protocol PRN Reason: Anxiety Stop: 03/29/18 20:09 Last Admin: 03/28/18 05:07 Dose: 0.25 mg Apixaban (Eliquis) 2.5 mg PO DAILY [facility]; Protocol Last Admin: 03/28/18 09:59 Dose: 2.5 mg Aspirin (Aspirin Chewable) 81 mg PO 0800 [facility]; Protocol Last Admin: 03/28/18 07:57 Dose: 81 mg Atorvastatin Calcium (Lipitor) 20 mg PO DAILY [facility]; Protocol Last Admin: 03/28/18 10:01 Dose: 20 mg Diltiazem HCl (Cardizem Cd) 180 mg PO DAILY [facility] Last Admin: 03/28/18 09:57 Dose: Not Given Docusate Sodium (Colace) 100 mg PO DAILY [facility]; Protocol Last Admin: 03/28/18 09:48 Dose: Not Given Donepezil HCl (Aricept) 10 mg PO HS [facility]; Protocol Last Admin: 03/27/18 21:19 Dose: 10 mg Furosemide (Lasix) 40 mg PO DAILY [facility]; Protocol Last Admin: 03/28/18 10:00 Dose: 40 mg Metoprolol Tartrate (Lopressor) 25 mg PO 0800,1700 [facility]; Protocol Last Admin: 03/28/18 07:57 Dose: 25 mg Pantoprazole Sodium (Protonix Ec Tab) 40 mg PO 0600,1630 [facility]; Protocol Tetrahydrozoline HCl/Zinc Sulfate (Visine 0.05% Opht Soln) 1 ml OU Q2H PRN; Protocol PRN Reason: Dry eyes Last Admin: 03/24/18 10:32 Dose: 1 u Tramadol HCl (Ultram) 50 mg PO TID PRN; Protocol PRN Reason: Pain, moderate (4-7) Last Admin: 03/27/18 20:24 Dose: 50 mg - Labs Labs: 03/28/18 06:30 03/28/18 06:30 - Constitutional Appears: No Acute Distress, Chronically Ill - Head Exam Head Exam: NORMAL INSPECTION - Respiratory Exam Respiratory Exam: Decreased Breath Sounds - Cardiovascular Exam Cardiovascular Exam: +S1, +S2 - GI/Abdominal Exam GI & Abdominal Exam: Soft. absent: Tenderness Assessment and Plan - Assessment and Plan (Free Text) Plan: Assessment S/P SIRS, with fever, consider HCAP, S/P treatment with antibiotics history of UTI with ESBL E. coli S/P treatment with antibiotics S/P Severe sepsis R/O intra-abdominal infection atrial fibrillation COPD CAD chronic CHF renal cell cancer S/P nephrectomy lung cancer S/P lobectomy anxiety dementia Plan cultures have been negative; completed 7 days of Merrem and Doxycycline - discussed with dr. Smith previously and discussed with Dr. Farris previously will continue to monitor clinically off antibiotics since she is at risk for healthcare-associated infections
[2018-03-29 16:22] VITALS: RESP 14; TEMP 97.8
[2018-03-30 07:29] LABS: ALBUMIN 3.5 g/dL (3.0-4.8); CALCIUM 9.5 mg/dL (8.4-10.5)
--- NOTE | 2018-03-30 09:31 | PN ---
DATE: 03/30/2018 SUBJECTIVE: The patient appears very comfortable this morning. She is not short of breath at rest. PHYSICAL EXAMINATION: VITAL SIGNS: (Last noted in the computer): Temperature is 97.8, pulse 59, respirations 14, blood pressure 93/58. Oxygen saturation on room air is 94%-100%. HEENT: Normocephalic, atraumatic. No JVD. CARDIOVASCULAR: Systolic ejection murmur at the lower left sternal border. Questionable S3 gallop. LUNGS: Minimal/less crackles at the bases. Otherwise clear. EXTREMITIES: Less edema. No cyanosis, no clubbing. Calves are nontender to palpation. GASTROINTESTINAL: Abdomen is soft, nontender, nondistended. Bowel sounds are positive. SKIN: No acute rash. NEUROLOGIC: Exam limited at the present time. IMPRESSION: 1. Acute congestive heart failure. 2. Rule out pneumonia - left lower lobe. 3. Mild anemia. 4. Coronary artery disease. 5. Chronic atrial fibrillation. PLAN: The patient appears very comfortable this morning. She is not short of breath at rest. She does state to feeling much better overall. On physical exam, there is no bronchospasm noted. In addition, there is no significant alveolar-arterial gradient. I will continue the current nebulizer treatments - on a p.r.n. basis. The patient is now off antibiotic therapy - as per Infectious Disease. There are no temperatures noted. There is no leukocytosis. Input by Cardiology is also noted. Clinical status of the patient is significantly improved - compared to her initial presentation. However, given the above, the future status/prognosis for this patient does remain guarded. The patient is for discharge in the very near future. I will discuss the above with Dr. Farris. Jake Smith MD MTDEugene
[2018-03-30] MEDS: diltiaZEM 180 mg/24 Hours CD Cap PO SCH (10:03)
[2018-03-30 10:07] VITALS: BP 120/60
--- NOTE | 2018-03-30 16:00 | CP.PCM.PN ---
Subjective - Date & Time of Evaluation Date of Evaluation: 03/30/18 Time of Evaluation: 09:40 - Subjective Subjective: Comfortable, no fevers, no cough, no SOB at rest, feels better and stronger. Objective - Vital Signs/Intake and Output Vital Signs (last 24 hours): Temp Pulse Resp BP Pulse Ox 97.5 F L 93 H 18 107/62 98 03/27/18 10:00 03/29/18 10:07 03/27/18 10:00 03/29/18 12:21 03/27/18 10:00 - Medications Medications: Current Medications Albuterol/Ipratropium (Duoneb 3 Mg/0.5 Mg (3 Ml) Ud) 3 ml IH [id number] PRN; Pro tocol PRN Reason: sob Alprazolam (Xanax) 0.25 mg PO TID PRN; Protocol PRN Reason: Anxiety Stop: 03/29/18 20:09 Last Admin: 03/28/18 23:04 Dose: 0.25 mg Apixaban (Eliquis) 2.5 mg PO DAILY [facility]; Protocol Last Admin: 03/29/18 10:08 Dose: 2.5 mg Aspirin (Aspirin Chewable) 81 mg PO 0800 [facility]; Protocol Last Admin: 03/29/18 08:06 Dose: 81 mg Atorvastatin Calcium (Lipitor) 20 mg PO DAILY [facility]; Protocol Last Admin: 03/28/18 10:01 Dose: 20 mg Diltiazem HCl (Cardizem Cd) 180 mg PO DAILY [facility] Last Admin: 03/29/18 10:07 Dose: 180 mg Docusate Sodium (Colace) 100 mg PO DAILY [facility]; Protocol Last Admin: 03/29/18 10:08 Dose: 100 mg Donepezil HCl (Aricept) 10 mg PO HS [facility]; Protocol Last Admin: 03/28/18 21:10 Dose: 10 mg Furosemide (Lasix) 30 mg PO DAILY [facility] Last Admin: 03/29/18 12:21 Dose: 30 mg Metoprolol Tartrate (Lopressor) 25 mg PO 0800,1700 [facility]; Protocol Last Admin: 03/29/18 08:07 Dose: 25 mg Pantoprazole Sodium (Protonix Ec Tab) 40 mg PO 0600,1630 [facility]; Protocol Last Admin: 03/29/18 05:06 Dose: 40 mg Tetrahydrozoline HCl/Zinc Sulfate (Visine 0.05% Opht Soln) 1 ml OU Q2H PRN; Protocol PRN Reason: Dry eyes Last Admin: 03/24/18 10:32 Dose: 1 u Tramadol HCl (Ultram) 50 mg PO TID PRN; Protocol PRN Reason: Pain, moderate (4-7) Last Admin: 03/29/18 06:00 Dose: 50 mg - Labs Labs: 03/29/18 06:15 03/29/18 06:15 - Constitutional Appears: Chronically Ill - Head Exam Head Exam: NORMAL INSPECTION - ENT Exam ENT Exam: Mucous Membranes Moist - Neck Exam Neck Exam: absent: Lymphadenopathy, Meningismus - Respiratory Exam Respiratory Exam: Decreased Breath Sounds - Cardiovascular Exam Cardiovascular Exam: +S1, +S2 - GI/Abdominal Exam GI & Abdominal Exam: Soft. absent: Tenderness Assessment and Plan - Assessment and Plan (Free Text) Plan: Assessment S/P SIRS, with fever, consider HCAP, S/P treatment with antibiotics history of UTI with ESBL E. coli S/P treatment with antibiotics S/P Severe sepsis R/O intra-abdominal infection atrial fibrillation COPD CAD chronic CHF renal cell cancer S/P nephrectomy lung cancer S/P lobectomy anxiety dementia Plan cultures have been negative; completed 7 days of Merrem and Doxycycline - discussed with dr. Smith previously and discussed with Dr. Farris previously will continue to monitor clinically off antibiotics while the patient is in the hospital
[2018-03-30 16:58] VITALS: PULSE 77; O2SAT 97
--- NOTE | 2018-03-30 21:34 | DS ---
HISTORY OF PRESENT ILLNESS: She finished her 8 days at the Transitional Care Unit. She did very well. She is on Aricept, total aspirin, Cardizem, Colace, albuterol, Eliquis, Lasix, Lipitor, Lopressor, Protonix, Ultram, Visine, and Xanax. She was here for acute CHF, left pneumonia, SIRS, CAD, elevated LFTs. She will be discharged to have a house call on her next week. PHYSICAL EXAMINATION: GENERAL: She is happy, comfortable. No complaint. She is ready to home. No chest pain or shortness of breath. No abdominal pain. VITAL SIGNS: She has a temperature of 98.8, pulse 61, blood pressure 97/57, respiratory rate 14, sat 94%. HEENT: Head is atraumatic, normocephalic. HEART: Regular rate. LUNGS: Clear to auscultation. ABDOMEN: Soft. EXTREMITIES: No edema. LABORATORY DATA: Last labs on 03/29/2018, she has white count 5.8, hemoglobin 9.5, platelets 243. Sodium 142, potassium 4.3, BUN is 54, creatinine 1.7. GFR is 29. Sugar was 128, calcium 9.5. Total bili is 0.3, AST is 119, ALT is 64, alk phos 99. ASSESSMENT AND PLAN: Overall, she is doing very well. She was seen by Infectious Disease, Cardiology, Pulmonology, and I will see her now on a house call. resolution of congestive heart failure, severe pulmonary retention, chronic obstructive pulmonary disease, prerenal azotemia. Marco Farris DO MTDD
== END 2018-03-30 16:40 | disposition home or self-care (01) | DRG 291 ==
LOC: TRCU 19:47
PROVIDERS: ADMIT Family Medicine; ATTEND Family Medicine
PROC: F07Z9FZ Gait Training/Functional Ambulation Treatment using Assistive, Adaptive, Supportive or Protective Equipment (ICD-10-PCS; principal; 2018-03-23)
PROC: F08Z4FZ Home Management Treatment using Assistive, Adaptive, Supportive or Protective Equipment (ICD-10-PCS; 2018-03-23)
DX: I11.0 Hypertensive heart disease with heart failure (principal); J18.1 Lobar pneumonia, unspecified organism; J44.0 Chronic obstructive pulmonary disease with (acute) lower respiratory infection; I50.9 Heart failure, unspecified; R53.1 Weakness; I48.2 Chronic atrial fibrillation; E11.9 Type 2 diabetes mellitus without complications; F03.90 Unspecified dementia, unspecified severity, without behavioral disturbance, psychotic disturbance, mood disturbance, and anxiety; I25.10 Atherosclerotic heart disease of native coronary artery without angina pectoris; I27.20 Pulmonary hypertension, unspecified; D64.9 Anemia, unspecified; E78.00 Pure hypercholesterolemia, unspecified; N28.9 Disorder of kidney and ureter, unspecified; F41.9 Anxiety disorder, unspecified; Z85.528 Personal history of other malignant neoplasm of kidney; Z85.118 Personal history of other malignant neoplasm of bronchus and lung; Z79.2 Long term (current) use of antibiotics; Z90.5 Acquired absence of kidney; Z90.2 Acquired absence of lung [part of]; Z87.891 Personal history of nicotine dependence

== ENCOUNTER 2018-03-31 02:48 | Inpatient (IN) | payer MEDICARE ==
[2018-03-31 02:49] VITALS: PULSE 45
--- NOTE | 2018-03-31 03:41 | ED PDOC ---
Arrival/HPI - General Chief Complaint: Lower Extremity Problem/Injury Time Seen by Provider: 03/31/18 03:03 Historian: Patient - History of Present Illness Narrative History of Present Illness (Text): 03/31/18 03:37 82 year old female, whose past medical history includes atrial fibrillation, hypertension, diabetes, CAD, CHF, COPD renal cell cancer s/p nephrectomy, lung cancer s/p lobectomy, anxiety, chronic right lower extremity pain, and anemia, who presents to the Emergency department brought in by EMS, for possible fall. Patient states she woke up and found herself on the floor, but does not know how she got there. Patient is unsure if it was syncope. Patient was discharged from the hospital 1 day prior after being admitted for pneumonia. Patient states she feels fine, but has some bilateral leg pain, though she denies any injury to legs. Patient denies any dizziness, fevers, chills, headache, chest pain, shortness of breath, cough, abdominal pain, nausea, vomiting, diarrhea, back pain, neck pain, or any other complaint. Time/Duration: Prior to Arrival Symptom Onset: Sudden Symptom Course: Unchanged Severity Level: Mild Activities at Onset: Light Context: Home Past Medical History - Provider Review Nursing Documentation Reviewed: Yes - Infectious Disease Hx of Infectious Diseases: None - Tetanus Immunization Tetanus Immunization: >10 years Ago - Cardiac Hx Cardiac Disorders: Yes Hx Cardiac Arrhythmia: Yes Hx Congestive Heart Failure: Yes Hx Hypertension: Yes Hx Peripheral Edema: Yes - Pulmonary Hx Respiratory Disorders: Yes Hx Chronic Obstructive Pulmonary Disease (COPD): Yes Hx Pneumonia: Yes - Neurological Hx Dementia: Yes - HEENT Hx HEENT Disorder: Yes - Renal Hx Renal Cancer: Yes - Endocrine/Metabolic Hx Diabetes Mellitus Type 2: Yes - Hematological/Oncological Hx Anemia: Yes Hx Cancer: Yes - Integumentary Hx Dermatological Disorder: Yes - Musculoskeletal/Rheumatological Hx Arthritis: Yes Hx Unsteady Gait: Yes - Gastrointestinal Hx Gastroesophageal Reflux: Yes - Genitourinary/Gynecological Hx Genitourinary Disorders: Yes (ESBL IN THE URINE H/O) Hx Reproductive Disorders: No - Psychiatric Hx Anxiety: Yes Hx Substance Use: No - Surgical History Other/Comment: lobectomy/nephrectomy - Anesthesia Hx Anesthesia: Yes Hx Anesthesia Reactions: No Hx Malignant Hyperthermia: No Family/Social History - Physician Review Nursing Documentation Reviewed: Yes Family/Social History: No Known Family HX Smoking Status: Never Smoked Hx Alcohol Use: No Hx Substance Use: No Allergies/Home Meds Allergies/Adverse Reactions: Allergies No Known Allergies Allergy (Verified 03/22/18 21:14) Home Medications: Home Meds Medication Instructions Recorded Confirmed Apixaban [Eliquis] 2.5 mg PO DAILY 03/20/18 03/31/18 Review of Systems - Physician Review All systems were reviewed & negative as marked: Yes - Review of Systems Constitutional: absent: Fevers, Night Sweats Respiratory: absent: SOB, Cough Cardiovascular: absent: Chest Pain Gastrointestinal: absent: Abdominal Pain, Diarrhea, Nausea, Vomiting, Appetite Changes Musculoskeletal: Myalgias (Bilateral legs). absent: Back Pain, Neck Pain Neurological: absent: Headache, Dizziness Physical Exam Vital Signs Reviewed: Yes Vital Signs Temp Pulse Resp BP Pulse Ox 03/31/18 02:58 97.7 F 70 16 116/57 L 97 Temperature: Afebrile Blood Pressure: Hypotensive Pulse: Regular Respiratory Rate: Normal Appearance: Positive for: Well-Appearing, Non-Toxic, Comfortable Pain Distress: None Mental Status: Positive for: Alert and Oriented X 3 - Systems Exam Head: Present: Atraumatic, Normocephalic Pupils: Present: PERRL Extroacular Muscles: Present: EOMI Conjunctiva: Present: Normal Mouth: Present: Moist Mucous Membranes Neck: Present: Normal Range of Motion Respiratory/Chest: Present: Clear to Auscultation, Good Air Exchange. No: Respiratory Distress, Accessory Muscle Use Cardiovascular: Present: Regular Rate and Rhythm, Normal S1, S2. No: Murmurs Abdomen: No: Tenderness, Distention, Peritoneal Signs Back: Present: Normal Inspection Upper Extremity: Present: Normal Inspection. No: Cyanosis, Edema Lower Extremity: Present: Normal Inspection, Other (4/5 bilateral leg strength ). No: Edema Neurological: Present: GCS=15, CN II-XII Intact, Speech Normal, Motor Func Grossly Intact, Normal Sensory Function Skin: Present: Warm, Dry, Normal Color. No: Rashes Psychiatric: Present: Oriented x 3, Normal Insight, Normal Concentration. No: Alert (Drowsy) Medical Decision Making ED Course and Treatment: 03/31/18 03:43 Impression: 82 year old female presents for evaluation status post possible fall Plan: -- CT Head -- CMP -- CBC -- Urinalysis -- Reassess and disposition Prior Visits: Notes and results from previous visits were reviewed. Progress Notes: 03/31/18 05:05 CT scan of the head CLINICAL HISTORY: Possible syncope. TECHNIQUE: Multiple axial CT images were obtained through the brain without IV contrast material. COMMENTS: Multifocal chronic encephalomalacia more prominent in the right frontal and left parietal lobes. There is normal configuration of sella turcica. There are no intra or extra- axial collections. There is no mass effect or midline shift. There is no evidence of hematoma formation. No hydrocephalus is present. The ventricles are symmetrical. No abnormal calcifications are present. There is diffuse age-appropriate cerebellar and cerebral atrophy with proportionally dilated ventricles and cortical sulci. There are bilateral periventricular and subcortical white matter hypolucencies compatible with mild chronic microvascular disease. Otherwise, no significant focal abnormalities are seen either in the posterior fossa or supratentorial compartment. Mild chronic mucosal inflammatory changes of the mesentery sinuses and ethmoid air cells. IMPRESSION: 1. Age-appropriate cerebellar and cerebral atrophy. 2. Mild chronic microvascular disease. 3. No evidence of acute intracranial pathology. Decision made to admit for questionable syncope. Case discussed with Dr. Farris who accepts patient to his service for admission. - RAD Interpretation Radiology Orders: 03/31/18 03:14 HEAD W/O CONTRAST [CT] Stat - Scribe Statement The provider has reviewed the documentation as recorded by the Luliibnoemi Lyn Provider Scribe Attestation: All medical record entries made by the Scribe were at my direction and personally dictated by me. I have reviewed the chart and agree that the record accurately reflects my personal performance of the history, physical exam, medical decision making, and the department course for this patient. I have also personally directed, reviewed, and agree with the discharge instructions and disposition. Disposition/Present on Arrival - Present on Arrival Any Indicators Present on Arrival: No History of DVT/PE: No History of Uncontrolled Diabetes: No Urinary Catheter: No History of Decub. Ulcer: No History Surgical Site Infection Following: None - Disposition Have Diagnosis and Disposition been Completed?: Yes Diagnosis: Syncope Disposition: HOSPITALIZED Disposition Time: 05:00 Patient Problems: Current Active Problems Problem Status Onset Syncope Acute Condition: STABLE
[2018-03-31 04:13] LABS: PH,URINE 6.5 (4.7-8.0); URINE BILIRUBIN MODERATE (NEGATIVE); URINE BLOOD LARGE (NEGATIVE); URINE GLUCOSE (UA) NEGATIVE (NEGATIVE); URINE LEUKOCYTE ESTERASE MODERATE Leu/uL (NEGATIVE); URINE PROTEIN 30 mg/dL (<30 mg/dL); URINE UROBILINOGEN 0.2 E.U./dL (<1 E.U./dL)
[2018-03-31 04:25] LABS: URINE APPEARANCE CLOUDY (CLEAR); URINE COLOR BROWN (YELLOW)
[2018-03-31 04:27] LABS: PHENCYCLIDINE, UR NEGATIVE (NEGATIVE)
[2018-03-31 04:35] LABS: BARBITURATES, UR NEGATIVE (NEGATIVE); BENZODIAZEPINES, UR POSITIVE (NEGATIVE); OPIATES, UR NEGATIVE (NEGATIVE)
[2018-03-31 04:41] LABS: URINE AMORPHOUS SEDIMENT MODERATE /hpf; URINE BACTERIA MOD /hpf
[2018-03-31 04:55] LABS: CALCIUM 9.8 mg/dL (8.4-10.5)
[2018-03-31 05:01] LABS: BASO # 0.01 K/mm3 (0.0-2.0); BASO % 0.2 % (0.0-3.0); EOS % 0.5 % (1.5-5.0); GRAN # 4.92 (1.4-6.5); GRAN % 75.2 % (50.0-68.0); HEMOGLOBIN 9.2 g/dL (12.0-16.0); LYMPH # 0.8 (1.2-3.4); LYMPH % 11.6 % (22.0-35.0); MEAN CELL VOLUME 80.2 fl (80.0-105.0); MEAN CORPUSCULAR HEMOGLOBIN 24.3 pg (25.0-35.0); MEAN CORPUSCULAR HGB CONC 30.3 g/dl (31.0-37.0); MEAN PLATELET VOLUME 9.9 fl (7.0-11.0); MONO # 0.8 (0.1-0.6); MONO % 12.5 % (1.0-6.0); RBC 3.79 10^6/uL (3.5-6.1); WHITE BLOOD COUNT 6.5 10^3/uL (4.5-11.0)
--- NOTE | 2018-03-31 08:04 | CT ---
Date of service: 03/31/2018 PROCEDURE: CT HEAD WITHOUT CONTRAST. HISTORY: possible syncope COMPARISON: 05/14/2017 TECHNIQUE: Axial computed tomography images were obtained through the head/brain without intravenous contrast. Radiation dose: Total exam DLP = 828.11 mGy-cm. This CT exam was performed using one or more of the following dose reduction techniques: Automated exposure control, adjustment of the mA and/or kV according to patient size, and/or use of iterative reconstruction technique. FINDINGS: HEMORRHAGE: No intracranial hemorrhage. BRAIN: No mass effect or edema. Areas of chronic encephalomalacia are seen in the right frontal lobe and left medial parietal lobe VENTRICLES: Unremarkable. No hydrocephalus. CALVARIUM: Unremarkable. PARANASAL SINUSES: Unremarkable as visualized. No significant inflammatory changes. MASTOID AIR CELLS: Unremarkable as visualized. No inflammatory changes. OTHER FINDINGS: The report concurs with the preliminary [facility] report IMPRESSION: No acute intracranial findings
[2018-03-31] MEDS ORDERED: Albuterol-Ipratrop 3 mg / 0.5 (3 ml) UD IH PRN (08:47)
[2018-03-31] MEDS ORDERED: Tetrahydrozoline Opht 0.05% Sol (15 ml) OU PRN (08:47)
[2018-03-31] MEDS: diltiaZEM 180 mg/24 Hours CD Cap PO SCH (09:32)
[2018-03-31] MEDS: Pantoprazole 40 mg EC Tab PO SCH ×2 (09:34→18:59)
[2018-03-31] MEDS: cefTRIAXone 1 gm 1 GM/100 ML BAG IVPB SCH (09:34)
[2018-03-31] MEDS: POLYETHYLENE GLYCOL 3350 17 GM/Dose PACKET PO SCH (09:34)
[2018-03-31] MEDS: Sodium Chloride 0.45% 1,000 ML IV SCH (09:38)
--- NOTE | 2018-03-31 09:47 | HP ---
DATE OF EXAM: 03/31/2018 HISTORY OF PRESENT ILLNESS: She was just discharged from the Transitional Care Unit yesterday and now she is back in the hospital because she was found on the floor. She does not remember what happens, very possible she rolls out of bed. She has some lower extremity pain. She is an 82-year-old female who just left the hospital with a past medical history of atrial fib, hypertension, diabetes, CAD, CHF, COPD, renal cancer status post nephrectomy, lung cancer status post lobectomy, anxiety, chronic right lower extremity pain, anemia who presents to ER. She woke up, found herself on the floor,do not know how she got there. She was unsure if there was syncope or she just rolled off the bed. She was just here for pneumonia. She feels fine. She is back to old self now. We are going to keep her in the hospital for overnight for observation. She has atrial fibrillation, hypertension, peripheral edema, CHF, COPD, recent pneumonia, dementia, diabetes, history of renal cancer, anemia, arthritis, unsteady gait, gastroesophageal reflux, ESBL in the urine history. She had lobectomy, nephrectomy. FAMILY HISTORY: No known family history. Nonsmoker. No drinking. No drugs. ALLERGIES: NO KNOWN DRUG ALLERGIES. MEDICATIONS: I will put medications that she takes which are Aricept, aspirin, Colace, Cardizem, DuoNebs, Eliquis, Lasix, Lipitor, Lopressor, MiraLax, Protonix, Ultram, tramadol and Xanax. REVIEW OF SYSTEMS: She has no vision changes or hearing changes. No sore throat. No head pain. No chest pain or palpitations, shortness of breath or cough. No abdominal pain, nausea, vomiting, constipation, diarrhea. She can move all 4 extremities. She could move her neck, not dizzy. I think she feels back to normal right now, just found herself on the floor. PHYSICAL EXAMINATION: VITAL SIGNS: She has 97.7 temperature, 70 pulse, 16 respiratory rate, 116/57 blood pressure, 97% O2 sat on room air. HEAD: Well appearing, nontoxic, comfortable, alert and oriented x3. Head is atraumatic, normocephalic. Extraocular muscles are intact. Pupils react to light and accommodation. Throat is moist. NECK: Supple. HEART: Regular rate. Normal S1, S2. LUNGS: Decreased breath sounds but clear to auscultation, much better than last week. ABDOMEN: Soft, nontender, positive bowel sounds. EXTREMITIES: Have no edema. She had GCS is 50. NEUROLOGIC: Cranial nerves II-XII grossly intact. Normal speech. She is smiling at me, comfortable, alert and oriented x3. No palpable lymphadenopathy. Thyroid midline. She had multiple tests done. She has a urine which was positive for benzodiazepines. Urine was otherwise moderate bili, moderate leukocytes, moderate bacteria. I put her on little antibiotic. Sodium is 144, potassium 4.2, BUN 57, creatinine 1.7, sugar is 111, little renal insufficient, 6.5 white count, 9.2 hemoglobin, 30.4 hematocrit with 271 platelets. She had a CT scan of the head which was okay. She is going to have consults with Neuro and Cardio and hopefully she will be okay for fall, syncope type of picture, little renal insufficiency. Marco Farris DO MTDD
[2018-03-31] MEDS ORDERED: DILTIAZEM 180 MG PO SCH (10:00)
--- NOTE | 2018-03-31 10:06 | CP.PCM.CON ---
<Ad Landry - Last Filed: 03/31/18 12:33> History of Present Illness - History of Present Illness History of Present Illness: Consult Note for Neurology Service, Dr. Rodriguez (Requested as per Dr. Farris) Ad Landry DO PGY-1 This is an 82 y o female with PMhx A-fib, HTN, DM, CAD, CHF, COPD, renal cancer s/p nephrectomy, lung cancer s/p lobectomy, anxiety, chronic R lower extremity pain, and anemia who presented to the ED s/p fall. Reason for Neurology consult was for syncope. Pt states that she found herself on the floor at home and did not know how she got there. Admits to not hitting her head, but states that she may or may not have blacked out. Pt reports that she was on the floor for about 15 minutes at home, was able to crawl on the floor to get to the kitchen and grab the phone to call 911. Pt states that she usually ambulates with a walker at home, states she was in the bedroom when the episode occurred and that all she remembers before was that she was trying from stand up after being in bed. Pt states that the only thing that was bothering her after the episode was b/l LE pain. Pt reports similar episode occurring several years ago while inpatient at [facility], stating that all she remembered at the time was that she ended up on the floor and "all these doctors were staring at me". Pt was recently discharged from TCU 1 day prior after being admitted for treatment of PNA. Admits to a little dizziness currently. Denies SEGUNDO, vision changes, vertigo-like symptoms, chest pain, sob, n/v/d/c, abd pain, urinary complaints, focal/generalized weakness, tremors, or other symptoms. PMhx: A-fib, HTN, DM, CAD, CHF, COPD, renal cancer s/p nephrectomy, lung cancer s/p lobectomy, anxiety, chronic R lower extremity pain, and anemia PSurgHx: Nephrectomy, lobectomy Allergies: NKDA Current meds: reviewed in [facility] Fam hx: denies Soc hx: former smoker quit 25 y ago; denies EtOH or illicit drug use; lives at home alone, ambulates with walker PMD: Dr. Farris Review of Systems - Constitutional Constitutional: absent: Anorexia, Chills, Fatigue, Fever, Frequent Falls, Headache, Weakness - EENT Eyes: absent: Blurred Vision, Change in Vision - Cardiovascular Cardiovascular: absent: Chest Pain, Dyspnea on Exertion, Edema, Palpitations - Gastrointestinal Gastrointestinal: absent: Abdominal Pain, Constipation, Diarrhea, Nausea, Vomiting - Neurological Neurological: Dizziness. absent: Abnormal Gait, Abnormal Hearing, Abnormal Movements, Abnormal Speech, Behavioral Changes, Confusion, Numbness, Frequent Falls, Headaches, Loss of Vision, Memory Loss, Tingling, Tremor Past Patient History - Infectious Disease Hx of Infectious Diseases: None - Tetanus Immunizations Tetanus Immunization: >10 years Ago - Past Medical History & Family History Past Medical History?: Yes - Past Social History Smoking Status: Never Smoked - CARDIAC Hx Cardiac Disorders: Yes Hx Cardia Arrhythmia: Yes Hx Congestive Heart Failure: Yes Hx Hypertension: Yes Hx Peripheral Edema: Yes - PULMONARY Hx Respiratory Disorders: Yes Hx Chronic Obstructive Pulmonary Disease (COPD): Yes Hx Pneumonia: Yes - NEUROLOGICAL Hx Dementia: Yes - HEENT Hx HEENT Problems: Yes - RENAL Hx Renal (Kidney) Cancer: Yes - ENDOCRINE/METABOLIC Hx Diabetes Mellitus Type 2: Yes - HEMATOLOGICAL/ONCOLOGICAL Hx Anemia: Yes Hx Cancer: Yes - INTEGUMENTARY Hx Dermatological Problems: Yes - MUSCULOSKELETAL/RHEUMATOLOGICAL Hx Arthritis: Yes Hx Unsteady Gait: Yes - GASTROINTESTINAL Hx Gastroesophageal Reflux: Yes - GENITOURINARY/GYNECOLOGICAL Hx Genitourinary Disorders: Yes (ESBL IN THE URINE H/O) Hx Reproductive Disorders: No - PSYCHIATRIC Hx Anxiety: Yes Hx Substance Use: No - SURGICAL HISTORY Other/Comment: lobectomy/nephrectomy - ANESTHESIA Hx Anesthesia: Yes Hx Anesthesia Reactions: No Hx Malignant Hyperthermia: No Meds Allergies/Adverse Reactions: Allergies Allergy/AdvReac Type Severity Reaction Status Date / Time No Known Allergies Allergy Verified 03/22/18 21:14 - Medications Medications: Current Medications Albuterol/Ipratropium (Duoneb 3 Mg/0.5 Mg (3 Ml) Ud) 3 ml IH Q2H PRN PRN Reason: Shortness of Breath Alprazolam (Xanax) 0.25 mg PO TID PRN; Protocol PRN Reason: Anxiety Stop: 04/07/18 08:48 Apixaban (Eliquis) 2.5 mg PO DAILY [facility]; Protocol Last Admin: 03/31/18 09:31 Dose: 2.5 mg Aspirin (Aspirin Chewable) 81 mg PO DAILY [facility] Last Admin: 03/31/18 09:33 Dose: 81 mg Atorvastatin Calcium (Lipitor) 20 mg PO DAILY [facility] Last Admin: 03/31/18 09:33 Dose: 20 mg Diltiazem HCl (Cardizem Cd) 180 mg PO DAILY [facility] Last Admin: 03/31/18 09:32 Dose: 180 mg Docusate Sodium (Colace) 100 mg PO DAILY [facility] Last Admin: 03/31/18 09:33 Dose: 100 mg Donepezil HCl (Aricept) 10 mg PO [facility] Furosemide (Lasix) 30 mg PO DAILY [facility] Last Admin: 03/31/18 09:31 Dose: 30 mg Ceftriaxone Sodium (Rocephin 1 Gram Ivpb) 1 gm in 100 mls @ 100 mls/hr IVPB DAILY [facility]; Protocol Last Admin: 03/31/18 09:34 Dose: 100 mls/hr Sodium Chloride (Sodium Chloride 0.45%) 1,000 mls @ 30 mls/hr IV .Q24H [facility] Last Admin: 03/31/18 09:38 Dose: 30 mls/hr Metoprolol Tartrate (Lopressor) 25 mg PO BID [facility] Last Admin: 03/31/18 09:35 Dose: Not Given Pantoprazole Sodium (Protonix Ec Tab) 40 mg PO BID [facility] Last Admin: 03/31/18 09:34 Dose: 40 mg Polyethylene Glycol (Miralax) 17 gm PO DAILY [facility] Last Admin: 03/31/18 09:34 Dose: 17 gm Tetrahydrozoline HCl/Zinc Sulfate (Visine 0.05% Opht Soln) 0 ml OU Q2H PRN PRN Reason: Dry eyes Tramadol HCl (Ultram) 50 mg PO TID PRN PRN Reason: Pain, moderate (4-7) Last Admin: 03/31/18 09:41 Dose: 50 mg Physical Exam - Constitutional Appears: Non-toxic, No Acute Distress - Head Exam Head Exam: ATRAUMATIC, NORMOCEPHALIC - Eye Exam Eye Exam: EOMI, Normal appearance, PERRL - ENT Exam ENT Exam: Mucous Membranes Moist - Neck Exam Neck exam: Positive for: Full Rom, Normal Inspection. Negative for: Tenderness - Respiratory Exam Respiratory Exam: Clear to Auscultation Bilateral, NORMAL BREATHING PATTERN. absent: Rales, Rhonchi, Wheezes - Cardiovascular Exam Cardiovascular Exam: REGULAR RHYTHM, +S1, +S2. absent: Gallop, Rubs, Systolic Murmur - GI/Abdominal Exam GI & Abdominal Exam: Normal Bowel Sounds, Soft. absent: Distended, Guarding, Organomegaly, Tenderness - Extremities Exam Extremities exam: Positive for: full ROM, normal capillary refill, normal inspection, pedal pulses present. Negative for: pedal edema - Neurological Exam Neurological exam: Alert, CN II-XII Intact, Oriented x3, Reflexes Normal Additional comments: Pos pronator drift on L side; no dysarthria or dysmetria noted on exam, muscle strength 5/5 in all extremities, sensation intact throughout - Skin Skin Exam: Dry, Intact, Normal Color, Warm Results - Vital Signs Recent Vital Signs: Last Vital Signs Temp 98.1 F 03/31/18 09:08 Pulse 61 03/31/18 09:35 Resp 16 03/31/18 09:08 BP 120/55 L 03/31/18 09:35 Pulse Ox 98 03/31/18 09:08 - Labs Result Diagrams: 03/31/18 04:25 03/31/18 04:25 Labs: Laboratory Results - last 24 hr 03/31/18 03/31/18 03/31/18 03:36 03:36 04:25 WBC 6.5 RBC 3.79 Hgb 9.2 L Hct 30.4 L MCV 80.2 MCH 24.3 L MCHC 30.3 L RDW 22.0 H Plt Count 271 MPV 9.9 Gran % 75.2 H Lymph % (Auto) 11.6 L [place] % (Auto) 12.5 H Eos % (Auto) 0.5 L Baso % (Auto) 0.2 Gran # 4.92 Lymph # (Auto) 0.8 L [place] # (Auto) 0.8 H Eos # (Auto) 0.0 Baso # (Auto) 0.01 Sodium Potassium Chloride Carbon Dioxide Anion Gap BUN Creatinine Est GFR ( Amer) Est GFR (Non-Af Amer) Random Glucose Calcium Urine Color Brown Urine Appearance Cloudy Urine pH 6.5 Ur Specific [place] 1.020 Urine Protein 30 H Urine Glucose (UA) Negative Urine Ketones Negative Urine Blood Large H Urine Nitrate Negative Urine Bilirubin Moderate H Urine Urobilinogen 0.2 Ur Leukocyte Esterase Moderate H Urine RBC 1 - 3 H Urine WBC 1 - 3 Ur Epithelial Cells 3 - 4 Amorphous Sediment Moderate Urine Bacteria Mod Urine Opiates Screen Negative Urine Methadone Screen Negative Ur Barbiturates Screen Negative Ur Phencyclidine Scrn Negative Ur Amphetamines Screen Negative U Benzodiazepines Scrn Positive H U Oth Cocaine Metabols Negative U Cannabinoids Screen Negative 03/31/18 04:25 WBC RBC Hgb Hct MCV MCH MCHC RDW Plt Count MPV Gran % Lymph % (Auto) [place] % (Auto) Eos % (Auto) Baso % (Auto) Gran # Lymph # (Auto) [place] # (Auto) Eos # (Auto) Baso # (Auto) Sodium 144 Potassium 4.2 Chloride 101 Carbon Dioxide 34 H Anion Gap 12 BUN 57 H Creatinine 1.7 H Est GFR ( Amer) 35 Est GFR (Non-Af Amer) 29 Random Glucose 111 H Calcium 9.8 Urine Color Urine Appearance Urine pH Ur Specific [place] Urine Protein Urine Glucose (UA) Urine Ketones Urine Blood Urine Nitrate Urine Bilirubin Urine Urobilinogen Ur Leukocyte Esterase Urine RBC Urine WBC Ur Epithelial Cells Amorphous Sediment Urine Bacteria Urine Opiates Screen Urine Methadone Screen Ur Barbiturates Screen Ur Phencyclidine Scrn Ur Amphetamines Screen U Benzodiazepines Scrn U Oth Cocaine Metabols U Cannabinoids Screen Assessment & Plan - Assessment and Plan (Free Text) Assessment: This is an 82 y o female with PMhx A-fib, HTN, DM, CAD, CHF, COPD, renal cancer s/p nephrectomy, lung cancer s/p lobectomy, anxiety, chronic R lower extremity pain, and anemia who presented to the ED s/p fall. Reason for Neurology consult was for syncope. Plan: Syncope -Possible causes 2/2 vasovagal, cardiogenic, neurogenic -Orthostatic vital signs wnl -CT head: areas of chronic encephalomalacia seen in R frontal lobe and L medial parietal lobe. No acute intracranial findings. -Pending echo, EEG -MRI deferred 2/2 pt having pacemaker -Start Neurontin 300 mg PO tid for chronic b/l LE pain -On Eliquis for hx A-fib -F/u PT recs Will continue to follow. Thank you for allowing us to participate in the care of your patient. Pt seen, examined with, and plan discussed with Dr. Rodriguez, attending physician. Ad Landry DO PGY-1, [employer] Associate Pager #[phone] <Anjum Rodriguez - Last Filed: 03/31/18 16:45> Meds - Medications Medications: Current Medications Albuterol/Ipratropium (Duoneb 3 Mg/0.5 Mg (3 Ml) Ud) 3 ml IH Q2H PRN PRN Reason: Shortness of Breath Alprazolam (Xanax) 0.25 mg PO TID PRN; Protocol PRN Reason: Anxiety Stop: 04/07/18 08:48 Apixaban (Eliquis) 2.5 mg PO DAILY [facility]; Protocol Last Admin: 03/31/18 09:31 Dose: 2.5 mg Aspirin (Aspirin Chewable) 81 mg PO DAILY [facility] Last Admin: 03/31/18 09:33 Dose: 81 mg Atorvastatin Calcium (Lipitor) 20 mg PO DAILY [facility] Last Admin: 03/31/18 09:33 Dose: 20 mg Diltiazem HCl (Cardizem Cd) 180 mg PO DAILY [facility] Last Admin: 03/31/18 09:32 Dose: 180 mg Docusate Sodium (Colace) 100 mg PO DAILY [facility] Last Admin: 03/31/18 09:33 Dose: 100 mg Donepezil HCl (Aricept) 10 mg PO HS [facility] Furosemide (Lasix) 30 mg PO DAILY [facility] Last Admin: 03/31/18 09:31 Dose: 30 mg Gabapentin (Neurontin) 300 mg PO TID [facility]; Protocol Last Admin: 03/31/18 16:35 Dose: 300 mg Ceftriaxone Sodium (Rocephin 1 Gram Ivpb) 1 gm in 100 mls @ 100 mls/hr IVPB D AILY [facility]; Protocol Last Admin: 03/31/18 09:34 Dose: 100 mls/hr Sodium Chloride (Sodium Chloride 0.45%) 1,000 mls @ 30 mls/hr IV .Q24H [facility] Last Admin: 03/31/18 09:38 Dose: 30 mls/hr Metoprolol Tartrate (Lopressor) 25 mg PO BID [facility] Last Admin: 03/31/18 09:35 Dose: Not Given Pantoprazole Sodium (Protonix Ec Tab) 40 mg PO BID [facility] Last Admin: 03/31/18 09:34 Dose: 40 mg Polyethylene Glycol (Miralax) 17 gm PO DAILY [facility] Last Admin: 03/31/18 09:34 Dose: 17 gm Tetrahydrozoline HCl/Zinc Sulfate (Visine 0.05% Opht Soln) 0 ml OU Q2H PRN PRN Reason: Dry eyes Tramadol HCl (Ultram) 50 mg PO TID PRN PRN Reason: Pain, moderate (4-7) Last Admin: 03/31/18 16:34 Dose: 50 mg Results - Vital Signs Recent Vital Signs: Last Vital Signs Temp 98.1 F 03/31/18 12:40 Pulse 67 03/31/18 12:40 Resp 16 03/31/18 14:59 BP 121/65 03/31/18 12:40 Pulse Ox 98 03/31/18 09:08 - Labs Result Diagrams: 03/31/18 04:25 03/31/18 04:25 Labs: Laboratory Results - last 24 hr 03/31/18 03/31/18 03/31/18 03:36 03:36 04:25 WBC 6.5 RBC 3.79 Hgb 9.2 L Hct 30.4 L MCV 80.2 MCH 24.3 L MCHC 30.3 L RDW 22.0 H Plt Count 271 MPV 9.9 Gran % 75.2 H Lymph % (Auto) 11.6 L [place] % (Auto) 12.5 H Eos % (Auto) 0.5 L Baso % (Auto) 0.2 Gran # 4.92 Lymph # (Auto) 0.8 L [place] # (Auto) 0.8 H Eos # (Auto) 0.0 Baso # (Auto) 0.01 Sodium Potassium Chloride Carbon Dioxide Anion Gap BUN Creatinine Est GFR ( Amer) Est GFR (Non-Af Amer) Random Glucose Calcium Urine Color Brown Urine Appearance Cloudy Urine pH 6.5 Ur Specific [place] 1.020 Urine Protein 30 H Urine Glucose (UA) Negative Urine Ketones Negative Urine Blood Large H Urine Nitrate Negative Urine Bilirubin Moderate H Urine Urobilinogen 0.2 Ur Leukocyte Esterase Moderate H Urine RBC 1 - 3 H Urine WBC 1 - 3 Ur Epithelial Cells 3 - 4 Amorphous Sediment Moderate Urine Bacteria Mod Urine Opiates Screen Negative Urine Methadone Screen Negative Ur Barbiturates Screen Negative Ur Phencyclidine Scrn Negative Ur Amphetamines Screen Negative U Benzodiazepines Scrn Positive H U Oth Cocaine Metabols Negative U Cannabinoids Screen Negative 03/31/18 04:25 WBC RBC Hgb Hct MCV MCH MCHC RDW Plt Count MPV Gran % Lymph % (Auto) [place] % (Auto) Eos % (Auto) Baso % (Auto) Gran # Lymph # (Auto) [place] # (Auto) Eos # (Auto) Baso # (Auto) Sodium 144 Potassium 4.2 Chloride 101 Carbon Dioxide 34 H Anion Gap 12 BUN 57 H Creatinine 1.7 H Est GFR ( Amer) 35 Est GFR (Non-Af Amer) 29 Random Glucose 111 H Calcium 9.8 Urine Color Urine Appearance Urine pH Ur Specific [place] Urine Protein Urine Glucose (UA) Urine Ketones Urine Blood Urine Nitrate Urine Bilirubin Urine Urobilinogen Ur Leukocyte Esterase Urine RBC Urine WBC Ur Epithelial Cells Amorphous Sediment Urine Bacteria Urine Opiates Screen Urine Methadone Screen Ur Barbiturates Screen Ur Phencyclidine Scrn Ur Amphetamines Screen U Benzodiazepines Scrn U Oth Cocaine Metabols U Cannabinoids Screen Attending/Attestation - Attestation I have personally seen and examined this patient.: Yes I have fully participated in the care of the patient.: Yes I have reviewed all pertinent clinical information: Yes Notes (Text): 03/31/18 16:44 I agree with the assessment and plan: Syncope -Most likely vasovagal, cardiogenic, neurogenic -Orthostatics were done and normal -Pending echo, EEG -Start Neurontin 300 mg PO tid
--- NOTE | 2018-03-31 13:38 | CARD ---
APPROVED REPORT Date of service: 03/31/2018 EKG Measurement Heart [id number] <Conclusion> Electronic ventricular pacemaker
[2018-03-31 15:25] VITALS: BMI 20.7
[2018-03-31] MEDS ORDERED: Influenza Vaccine 60 mcg/0.5 mL SYR (4YR UP) IM ONE (15:25)
[2018-03-31] MEDS ORDERED: Pneumococcal 23-Valent Vaccine IM ONE (15:25)
[2018-03-31] MEDS ORDERED: Pantoprazole 40 mg EC Tab PO SCH (22:07)
[2018-04-01 07:15] LABS: HEMOGLOBIN 8.6 g/dL (12.0-16.0); MEAN CELL VOLUME 79.4 fl (80.0-105.0); MEAN CORPUSCULAR HEMOGLOBIN 23.9 pg (25.0-35.0); MEAN CORPUSCULAR HGB CONC 30.1 g/dl (31.0-37.0); RBC 3.6 10^6/uL (3.5-6.1); WHITE BLOOD COUNT 4.7 10^3/uL (4.5-11.0)
[2018-04-01 07:42] LABS: ALB/GLOB RATIO 0.9 (1.1-1.8); ALBUMIN 3.3 g/dL (3.0-4.8); CALCIUM 9.4 mg/dL (8.4-10.5)
[2018-04-01] MEDS: Sodium Chloride 0.45% 1,000 ML IV SCH (09:00)
--- NOTE | 2018-04-01 09:34 | CP.PCM.PN ---
Subjective - Date & Time of Evaluation Date of Evaluation: 04/01/18 Time of Evaluation: 09:30 - Subjective Subjective: Progress Note for Neurology Service, Dr. Gamaliel Landry, DO PGY-1 Pt seen and examined at bedside this am. Denies any acute complaints, observed eating breakfast without concerns. No acute events overnight reported by staff. Per staff, pt was found to have black-colored stools on admission, GI consulted. Denies headache, dizziness, chest pain, sob, n/v/d/c, abd pain, urinary complaints, or other symptoms. Objective - Vital Signs/Intake and Output Vital Signs (last 24 hours): Temp Pulse Resp BP Pulse Ox 98.6 F 74 18 115/60 99 04/01/18 06:00 04/01/18 06:00 04/01/18 06:00 04/01/18 06:00 04/01/18 06:00 Intake and Output: 04/01/18 04/01/18 06:59 18:59 Intake Total 720 Output Total 200 Balance 520 - Medications Medications: Current Medications Albuterol/Ipratropium (Duoneb 3 Mg/0.5 Mg (3 Ml) Ud) 3 ml IH Q2H PRN PRN Reason: Shortness of Breath Alprazolam (Xanax) 0.25 mg PO TID PRN; Protocol PRN Reason: Anxiety Stop: 04/07/18 08:48 Last Admin: 03/31/18 16:38 Dose: 0.25 mg Apixaban (Eliquis) 2.5 mg PO DAILY [facility]; Protocol Last Admin: 03/31/18 09:31 Dose: 2.5 mg Aspirin (Aspirin Chewable) 81 mg PO DAILY [facility] Last Admin: 03/31/18 09:33 Dose: 81 mg Atorvastatin Calcium (Lipitor) 20 mg PO DAILY [facility] Last Admin: 03/31/18 09:33 Dose: 20 mg Diltiazem HCl (Cardizem Cd) 180 mg PO DAILY [facility] Last Admin: 03/31/18 09:32 Dose: 180 mg Docusate Sodium (Colace) 100 mg PO DAILY [facility] Last Admin: 03/31/18 09:33 Dose: 100 mg Donepezil HCl (Aricept) 10 mg PO HS [facility] Last Admin: 03/31/18 22:31 Dose: 10 mg Furosemide (Lasix) 30 mg PO DAILY [facility] Last Admin: 03/31/18 09:31 Dose: 30 mg Gabapentin (Neurontin) 300 mg PO TID [facility]; Protocol Last Admin: 03/31/18 18:58 Dose: 300 mg Ceftriaxone Sodium (Rocephin 1 Gram Ivpb) 1 gm in 100 mls @ 100 mls/hr IVPB DAILY [facility]; Protocol Last Admin: 03/31/18 09:34 Dose: 100 mls/hr Sodium Chloride (Sodium Chloride 0.45%) 1,000 mls @ 30 mls/hr IV .Q24H [facility] Last Admin: 03/31/18 09:38 Dose: 30 mls/hr Metoprolol Tartrate (Lopressor) 25 mg PO BID [facility] Last Admin: 03/31/18 18:58 Dose: Not Given Pantoprazole Sodium (Protonix Ec Tab) 40 mg PO ACBD [facility] Polyethylene Glycol (Miralax) 17 gm PO DAILY [facility] Last Admin: 03/31/18 09:34 Dose: 17 gm Tetrahydrozoline HCl/Zinc Sulfate (Visine 0.05% Opht Soln) 0 ml OU Q2H PRN PRN Reason: Dry eyes - Labs Labs: 04/01/18 07:00 04/01/18 07:00 - Constitutional Appears: Non-toxic, No Acute Distress - Head Exam Head Exam: ATRAUMATIC, NORMOCEPHALIC - Eye Exam Eye Exam: EOMI, Normal appearance, PERRL - ENT Exam ENT Exam: Mucous Membranes Moist - Respiratory Exam Respiratory Exam: Clear to Ausculation Bilateral, NORMAL BREATHING PATTERN. absent: Rales, Rhonchi, Wheezes - Cardiovascular Exam Cardiovascular Exam: REGULAR RHYTHM, +S1, +S2. absent: Gallop, Rubs, Murmur - GI/Abdominal Exam GI & Abdominal Exam: Soft, Normal Bowel Sounds. absent: Distended, Guarding, Tenderness, Organomegaly - Extremities Exam Extremities Exam: Full ROM, Normal Capillary Refill, Normal Inspection. absent: Calf Tenderness, Pedal Edema - Neurological Exam Neurological Exam: Alert, Awake, CN II-XII Intact, Oriented x3 Additional comments: Neg pronator drift, dysmetria noted on upper extremity exam b/l, muscle strength 5/5 throughout - Skin Skin Exam: Dry, Intact, Pallor, Warm Assessment and Plan - Assessment and Plan (Free Text) Assessment: 82 y o female with PMhx A-fib, HTN, DM, CAD, CHF, COPD, renal cancer s/p nephrectomy, lung cancer s/p lobectomy, anxiety, chronic R lower extremity pain, and anemia who presented to the ED s/p fall. Reason for Neurology consult was for syncope. Plan: Syncope -Possible causes 2/2 vasovagal, cardiogenic, neurogenic; in light of melena noted by staff during admission, r/o GI source as etiology as well, GI currently consulted, recs appreciated -Pt demonstrating anemia on w/u -Orthostatic vital signs wnl -CT head: areas of chronic encephalomalacia seen in R frontal lobe and L medial parietal lobe. No acute intracranial findings. -Pending echo, EEG results -MRI deferred 2/2 pt having pacemaker -C/w Neurontin 300 mg PO tid for chronic b/l LE pain -Eliquis for hx A-fib, ASA held 2/2 melena -F/u PT recs Pt seen, examined with, and plan discussed with Dr. Alston, attending physician. Ad Landry DO PGY-1, Senior Licensing Manager Pager #[phone]
[2018-04-01] MEDS: POLYETHYLENE GLYCOL 3350 17 GM/Dose PACKET PO SCH (09:58)
[2018-04-01] MEDS: cefTRIAXone 1 gm 1 GM/100 ML BAG IVPB SCH (09:59)
[2018-04-01] MEDS: diltiaZEM 180 mg/24 Hours CD Cap PO SCH (10:00)
[2018-04-01 10:10] LABS: IRON 49 ug/dL (45-180)
[2018-04-01 10:19] LABS: TOTAL IRON BINDING CAPACITY 283 ug/dL (265-497)
--- NOTE | 2018-04-01 10:34 | PN ---
DATE: 04/01/2018 SUBJECTIVE: The patient is without complaints. No dizziness. No shortness of breath. PHYSICAL EXAMINATION: VITAL SIGNS: Blood pressure 115/60, heart rate in the 70s. NECK: Negative JVD. LUNGS: Without rales. HEART: S1, S2. EXTREMITIES: Without edema. The air conditioning unit tester reveals a paced rhythm. Hemoglobin is 8.6. Chemistries, BUN and creatinine unremarkable. IMPRESSION: 1. Questionable syncope. 2. History of pacemaker placement. 3. Renal insufficiency. 4. Severe chronic obstructive pulmonary disease. 5. Anemia. 6. The patient complains of dark stools. PLAN: Given these findings, I doubt whether the patient had a real syncope. There is no cardiac cause of her possible syncopal episode. We will discontinue telemetry today. Oswald Fonseca MD
--- NOTE | 2018-04-01 11:02 | CP.PCM.CON ---
<Rush Ford - Last Filed: 04/01/18 11:13> History of Present Illness - History of Present Illness History of Present Illness: PGY-4 GI Fellow Consult Note Pt is an 82 yo BF with A-fib (on apixaban), HTN, DM, CAD, CHF, COPD, renal cancer s/p nephrectomy, lung cancer s/p lobectomy, anxiety presenting after syncopal event. She states that she was at home when she awoke on the floor. S he thinks that she had recently sat up and tried to ambulate to the restroom or kitchen before awaking on the floor. She reports some generalized weakness but denied any light headedness, dizziness, CP nor SOB. Shortly after admission, she was found to have black stools for which GI was called. During my encounter, she states she feels well other than some mild fatigue/weakness. She denied any abd pain, N/V, weight loss, dysphagia nor hematochezia. She was actually using the bedpan when I entered the room and black stool was visualized. Of note, she states that she recently at a full catrina akfast about an hour prior. Last EGD/CSPY August 2016 with gastric ulcer (Bx negative), Colonic AVMs (s/p APC), Diverticulosis and Int Hemorrhoids. 12 point ROS negative other than stated above MHx: A-fib, HTN, DM, CAD, CHF, COPD, renal cancer s/p nephrectomy, lung cancer s/p lobectomy, anxiety, chronic R lower extremity pain, and anemia SurgHx: Nephrectomy, lobectomy Meds: reviewed in MAR FamHx: Denies GI problems SocHx: former smoker quit 25 y ago; denies EtOH or illicit drug use; lives at [facility] alone, ambulates with walker Allergies: NKDA Past Patient History - Infectious Disease Hx of Infectious Diseases: None - Tetanus Immunizations Tetanus Immunization: >10 years Ago - Past Medical History & Family History Past Medical History?: Yes - Past Social History Smoking Status: Never Smoked - CARDIAC Hx Cardiac Disorders: Yes Hx Cardia Arrhythmia: Yes Hx Congestive Heart Failure: Yes Hx Hypertension: Yes Hx Peripheral Edema: Yes - PULMONARY Hx Respiratory Disorders: Yes Hx Chronic Obstructive Pulmonary Disease (COPD): Yes Hx Pneumonia: Yes - NEUROLOGICAL Hx Dementia: Yes - HEENT Hx HEENT Problems: Yes - RENAL Hx Renal (Kidney) Cancer: Yes - ENDOCRINE/METABOLIC Hx Diabetes Mellitus Type 2: Yes - HEMATOLOGICAL/ONCOLOGICAL Hx Anemia: Yes Hx Cancer: Yes - INTEGUMENTARY Hx Dermatological Problems: Yes - MUSCULOSKELETAL/RHEUMATOLOGICAL Hx Arthritis: Yes Hx Unsteady Gait: Yes - GASTROINTESTINAL Hx Gastroesophageal Reflux: Yes - GENITOURINARY/GYNECOLOGICAL Hx Genitourinary Disorders: Yes (ESBL IN THE URINE H/O) Hx Reproductive Disorders: No - PSYCHIATRIC Hx Anxiety: Yes Hx Substance Use: No - SURGICAL HISTORY Other/Comment: lobectomy/nephrectomy - ANESTHESIA Hx Anesthesia: Yes Hx Anesthesia Reactions: No Hx Malignant Hyperthermia: No Meds Allergies/Adverse Reactions: Allergies Allergy/AdvReac Type Severity Reaction Status Date / Time No Known Allergies Allergy Verified 03/22/18 21:14 - Medications Medications: Current Medications Albuterol/Ipratropium (Duoneb 3 Mg/0.5 Mg (3 Ml) Ud) 3 ml IH Q2H PRN PRN Reason: Shortness of Breath Alprazolam (Xanax) 0.25 mg PO TID PRN; Protocol PRN Reason: Anxiety Stop: 04/07/18 08:48 Last Admin: 04/01/18 10:06 Dose: 0.25 mg Atorvastatin Calcium (Lipitor) 20 mg PO DAILY [facility] Last Admin: 04/01/18 09:58 Dose: 20 mg Diltiazem HCl (Cardizem Cd) 180 mg PO DAILY [facility] Last Admin: 04/01/18 10:00 Dose: 180 mg Docusate Sodium (Colace) 100 mg PO DAILY [facility] Last Admin: 04/01/18 10:00 Dose: 100 mg Donepezil HCl (Aricept) 10 mg PO HS [facility] Last Admin: 03/31/18 22:31 Dose: 10 mg Furosemide (Lasix) 30 mg PO DAILY [facility] Last Admin: 04/01/18 09:58 Dose: 30 mg Gabapentin (Neurontin) 300 mg PO TID [facility]; Protocol Last Admin: 04/01/18 09:58 Dose: 300 mg Ceftriaxone Sodium (Rocephin 1 Gram Ivpb) 1 gm in 100 mls @ 100 mls/hr IVPB DAILY [facility]; Protocol Last Admin: 04/01/18 09:59 Dose: 100 mls/hr Sodium Chloride (Sodium Chloride 0.45%) 1,000 mls @ 30 mls/hr IV .Q24H [facility] Last Admin: 03/31/18 09:38 Dose: 30 mls/hr Metoprolol Tartrate (Lopressor) 25 mg PO BID [facility] Last Admin: 04/01/18 09:57 Dose: 25 mg Pantoprazole Sodium (Protonix Inj) 40 mg IVP Q12 [facility] Last Admin: 04/01/18 09:57 Dose: 40 mg Polyethylene Glycol (Miralax) 17 gm PO DAILY [facility] Last Admin: 04/01/18 09:58 Dose: 17 gm Tetrahydrozoline HCl/Zinc Sulfate (Visine 0.05% Opht Soln) 0 ml OU Q2H PRN PRN Reason: Dry eyes Physical Exam - Constitutional Appears: Well, No Acute Distress - Head Exam Head Exam: ATRAUMATIC, NORMAL INSPECTION - Eye Exam Eye Exam: EOMI. absent: Scleral icterus - ENT Exam ENT Exam: Mucous Membranes Moist. absent: Mucous Membranes Dry - Respiratory Exam Respiratory Exam: NORMAL BREATHING PATTERN. absent: Accessory Muscle Use, Respiratory Distress - Cardiovascular Exam Cardiovascular Exam: REGULAR RHYTHM, RRR, Systolic Murmur - GI/Abdominal Exam GI & Abdominal Exam: Normal Bowel Sounds, Soft. absent: Bruit, Diminished Bowel Sounds, Distended, Firm, Guarding, Hernia, Organomegaly, Pulsatile Mass, Rebo und, Rigid, Tenderness - Rectal Exam Rectal Exam: Black Stool, NORMAL INSPECTION - Extremities Exam Extremities exam: Positive for: normal inspection. Negative for: pedal edema - Neurological Exam Neurological exam: Alert, CN II-XII Intact - Psychiatric Exam Psychiatric exam: Normal Affect, Normal Mood - Skin Skin Exam: Normal Color, Warm Results - Vital Signs Recent Vital Signs: Last Vital Signs Temp 98.6 F 04/01/18 06:00 Pulse 65 04/01/18 10:00 Resp 18 04/01/18 06:00 BP 110/88 04/01/18 10:00 Pulse Ox 99 04/01/18 06:00 - Labs Result Diagrams: 04/01/18 07:00 04/01/18 07:00 Labs: Laboratory Results - last 24 hr 04/01/18 04/01/18 04/01/18 07:00 07:00 07:00 WBC 4.7 D RBC 3.60 Hgb 8.6 L Hct 28.6 L MCV 79.4 L MCH 23.9 L MCHC 30.1 L RDW 22.0 H Plt Count 280 MPV 10.0 Sodium 141 Potassium 4.3 Chloride 99 Carbon Dioxide 36 H Anion Gap 10 BUN 49 H Creatinine 1.8 H Est GFR ( Amer) 33 Est GFR (Non-Af Amer) 27 Random Glucose 113 H Calcium 9.4 Iron 49 TIBC 283 Total Bilirubin 0.3 AST 49 H D ALT 56 Alkaline Phosphatase 104 Total Protein 6.9 Albumin 3.3 Globulin 3.6 Albumin/Globulin Ratio 0.9 L Assessment & Plan - Assessment and Plan (Free Text) Assessment: 82 yo BF with Afib (on apixaban), HTN, DM, CAD, CHF, COPD, renal cancer s/p nephrectomy, lung cancer s/p lobectomy presenting with Syncope found to have melena. # Melena: Likely due to Upper GI Bleed source. Pt on Apixaban (last dose PM 03/31/18) and ASA with h/o gastric ulcer on last Enteroscopy. Last CSPY with AVMs throughout; therefore, could be slow R sided as well. BUN elevated but has fluctuating baseline. Hgb down to 8s from 11 earlier this month. Vitals stable. # AFib: On apixaban # CAD # DM # COPD Plan: - Clear Liq Diet - Hold Apixaban, ASA - Monitor Hgb - Type and Screen - PPI IV q 12 hrs - Further recs pending clinical course Pt seen and examined with Dr. Quintana; please see attestation for further recs/changes. <Jt Quintana - Last Filed: 04/01/18 11:48> Meds - Medications Medications: Current Medications Albuterol/Ipratropium (Duoneb 3 Mg/0.5 Mg (3 Ml) Ud) 3 ml IH Q2H PRN PRN Reason: Shortness of Breath Alprazolam (Xanax) 0.25 mg PO TID PRN; Protocol PRN Reason: Anxiety Stop: 04/07/18 08:48 Last Admin: 04/01/18 10:06 Dose: 0.25 mg Atorvastatin Calcium (Lipitor) 20 mg PO DAILY [facility] Last Admin: 04/01/18 09:58 Dose: 20 mg Diltiazem HCl (Cardizem Cd) 180 mg PO DAILY [facility] Last Admin: 04/01/18 10:00 Dose: 180 mg Docusate Sodium (Colace) 100 mg PO DAILY [facility] Last Admin: 04/01/18 10:00 Dose: 100 mg Donepezil HCl (Aricept) 10 mg PO HS [facility] Last Admin: 03/31/18 22:31 Dose: 10 mg Furosemide (Lasix) 30 mg PO DAILY [facility] Last Admin: 04/01/18 09:58 Dose: 30 mg Gabapentin (Neurontin) 300 mg PO TID [facility]; Protocol Last Admin: 04/01/18 09:58 Dose: 300 mg Ceftriaxone Sodium (Rocephin 1 Gram Ivpb) 1 gm in 100 mls @ 100 mls/hr IVPB DAILY [facility]; Protocol Last Admin: 04/01/18 09:59 Dose: 100 mls/hr Sodium Chloride (Sodium Chloride 0.45%) 1,000 mls @ 30 mls/hr IV .Q24H [facility] Last Admin: 03/31/18 09:38 Dose: 30 mls/hr Metoprolol Tartrate (Lopressor) 25 mg PO BID [facility] Last Admin: 04/01/18 09:57 Dose: 25 mg Pantoprazole Sodium (Protonix Inj) 40 mg IVP Q12 [facility] Last Admin: 04/01/18 09:57 Dose: 40 mg Polyethylene Glycol (Miralax) 17 gm PO DAILY [facility] Last Admin: 04/01/18 09:58 Dose: 17 gm Tetrahydrozoline HCl/Zinc Sulfate (Visine 0.05% Opht Soln) 0 ml OU Q2H PRN PRN Reason: Dry eyes Results - Vital Signs Recent Vital Signs: Last Vital Signs Temp 98.6 F 04/01/18 06:00 Pulse 65 04/01/18 10:00 Resp 18 04/01/18 06:00 BP 110/88 04/01/18 10:00 Pulse Ox 99 04/01/18 06:00 - Labs Result Diagrams: 04/01/18 07:00 04/01/18 07:00 Labs: Laboratory Results - last 24 hr 04/01/18 04/01/18 04/01/18 07:00 07:00 07:00 WBC 4.7 D RBC 3.60 Hgb 8.6 L Hct 28.6 L MCV 79.4 L MCH 23.9 L MCHC 30.1 L RDW 22.0 H Plt Count 280 MPV 10.0 Sodium 141 Potassium 4.3 Chloride 99 Carbon Dioxide 36 H Anion Gap 10 BUN 49 H Creatinine 1.8 H Est GFR ( Amer) 33 Est GFR (Non-Af Amer) 27 Random Glucose 113 H Calcium 9.4 Iron 49 TIBC 283 Total Bilirubin 0.3 AST 49 H D ALT 56 Alkaline Phosphatase 104 Total Protein 6.9 Albumin 3.3 Globulin 3.6 Albumin/Globulin Ratio 0.9 L Stool Occult Blood 04/01/18 09:40 WBC RBC Hgb Hct MCV MCH MCHC RDW Plt Count MPV Sodium Potassium Chloride Carbon Dioxide Anion Gap BUN Creatinine Est GFR ( Amer) Est GFR (Non-Af Amer) Random Glucose Calcium Iron TIBC Total Bilirubin AST ALT Alkaline Phosphatase Total Protein Albumin Globulin Albumin/Globulin Ratio Stool Occult Blood Positive H Attending/Attestation - Attestation I have personally seen and examined this patient.: Yes I have fully participated in the care of the patient.: Yes I have reviewed all pertinent clinical information: Yes Notes (Text): 04/01/18 11:43 I have seen and examined patient with GI fellow. Agree with above documentation with the following additions. In brief, this is an 82 year old female with history of atrial fibrillation on eliquis, HTN, DM, COPD, renal cell cancer s/p nephrectomy, lung cancer s/p lobectomy who presents to hospital following syncopal event. She reports getting up from seated position rapidly and then subsequently waking up on the floor, therefore loss of consciousness. She denies abdominal pain, nausea, vomiting, fever/chills, weight loss, rectal bleeding, or change in bowel habits. Today she began to develop dark colored stool. She had an EGD/enteroscopy/colonoscopy in August 2016 which showed gastric ulcer, colonic AVMs, diverticulosis, and hemorrhoids. Atrial Fibrillation on Eliquis HTN/DM COPD History of renal cell and lung cancer Syncope Anemia, melena - Clear liquid diet as tolerated - Continue to monitor H/H - Conintue with PPI therapy - Would suggest holding eliquis for time being given suspicion of GI bleed - Patient would benefit from endoscopic evaluation, timing to be determined pending patient clinical course, will continue to monitor
--- NOTE | 2018-04-01 11:14 | PN ---
DATE: 04/01/2018 PROGRESS NOTE AND POSSIBLE DISCHARGE SUMMARY SUBJECTIVE: I saw her resting comfortably in bed. She slept fairly well. She was here because she was found herself on the floor, did not know how she got there. She was seen by the neurologist Arnel. She had a CAT scan of the head which showed pretty good, nothing acute. PHYSICAL EXAMINATION: VITAL SIGNS: She has a 98.6 temperature, 74 pulse, 115/60 blood pressure, 18 respiratory rate, 99% O2 sat on room air. GENERAL: She is alert, comfortable, eating in bed. No chest pain or shortness breath. No abdominal pain. HEENT: Head is atraumatic, normocephalic. Throat is moist. NECK: Supple. HEART: Regular rate. LUNGS: Decreased breath sounds, but clear. ABDOMEN: Soft. EXTREMITIES: No edema. MEDICATIONS: She is currently on Aricept, aspirin, Cardizem, Colace, DuoNebs, Eliquis, Lasix, Lipitor, Lopressor, MiraLax, Neurontin, Protonix, Rocephin, IV fluids, Ultram which I am going to stop, Visine, and Xanax. She is now on Neurontin. I am going to stop the tramadol, which can be part of the reason maybe she is here also. LABORATORY DATA: She is having very dark black stools, today I was told by the nurse; so going to check it for occult blood, they did not do that. So, I will order occult blood on her. I also called in GI, Dr. Quintana to take a look at her. If I get the okay from GI and if the stool is negative, I will discharge her home. Otherwise, she might need a transfusion. Her blood count: She has 4.7 white count, hemoglobin is 8.6 9.2, hematocrit is 28.6, platelets are 280. She has sodium 141, potassium 4.3, BUN 49, creatinine 1.8, GFR is 27, sugar is 113, calcium is 9.4, total bili is 0.3. AST is 49, ALT is 56, alk phos 104, total protein 6.9. Urine was moderate bacteria. She is on antibiotics. ASSESSMENT AND PLAN: If I can discharge her later today, I will try, I will talk to GI about this. Wait for Cardiology to see her too, questionable syncopal and possible cardiac involvement. Marco Farris DO [facility]
--- NOTE | 2018-04-01 14:38 | PCM.EEG ---
Electroencephalogram Report - Electroencephalogram Report Procedure Date: 03/31/18 Medication: Albuterol, Donepezil, lasix. Interpretation: Technical Information: This was a 16-channel EEG, 1-channel EKG , performed using an [employer] machine., electrodes were applied according to the 10/20 international placement system, impedances were less than 5 K Ohm. Start 19;06 End; 51 Total; 46 min Clinical Information: syncope EEG Detail: During resting wakefulness there was a symmetric posterior dominant rhythm at 7 Hz, 30-50 uV, which was reactive to eye opening and closing. Drowsiness (;19) was associated with fragmentation of the posterior dominant rhythm and with slow roving eye movements. Sleep was not seen. There were runs of bi temporal left more than right intermittent slowing. Hyperventilation was not performed. Photic stimulation was performed and there were no changes in the record. 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 These findings do not support a specific etiology. No seizures, not in status epilepticus.
--- NOTE | 2018-04-01 17:46 | CARD ---
APPROVED REPORT Date of service: 04/01/2018 EXAM: Two-dimensional and M-mode echocardiogram with Doppler and color Doppler. INDICATION Syncope 2D DIMENSIONS Left Atrium (2D)3.9 (1.6-4.0cm)IVSd1.7 (0.7-1.1cm) LVDd3.3 (3.9-5.9cm)PWd1.4 (0.7-1.1cm) LVDs2.1 (2.5-4.0cm)FS (%) 37.0 % LVEF (%)68.0 (>50%) M-Mode DIMENSIONS Aortic Root2.70 (2.2-3.7cm)Aortic Cusp Exc.1.40 (1.5-2.0cm) Aortic Valve AoV Peak Gclulxvn093.0cm/Devendra Peak GR.9mmHg Mitral Valve E/A ratio0.0 TDI E/Lateral E'0.0E/Medial E'0.0 Tricuspid Valve TR Peak [id number] [id number] Peak Gr.56mmHg [id number] LEFT VENTRICLE The left ventricle is normal size. There is moderate concentric left ventricular hypertrophy. The left ventricular function is normal. The left ventricular ejection fraction is within the normal range. There is normal LV segmental wall motion. No left ventricle thrombus noted on this study. RIGHT VENTRICLE The right ventricle is normal size. There is normal right ventricular wall thickness. The right ventricular systolic function is normal. There is a pacemaker lead in the right ventricle. ATRIA The left atrium is borderline dilated. The right atrium is mildly dilated. AORTIC VALVE The aortic valve is severely thickened. There is trace to mild aortic regurgitation. There is no aortic valvular stenosis. MITRAL VALVE The mitral valve is thickened and displays decreased opening. Mitral regurgitation is mild. TRICUSPID VALVE There is moderate to severe tricuspid regurgitation. There is moderate to severe pulmonary hypertension. <Conclusion> There is moderate concentric left ventricular hypertrophy. The left ventricular function is normal. The left ventricular ejection fraction is within the normal range. There is normal LV segmental wall motion. There is trace to mild aortic regurgitation. The mitral valve is thickened and displays decreased opening.Mitral regurgitation is mild. There is moderate to severe tricuspid regurgitation. There is moderate to severe pulmonary hypertension.
[2018-04-02 08:05] LABS: HEMOGLOBIN 7.8 g/dL (12.0-16.0); MEAN CELL VOLUME 79.9 fl (80.0-105.0); MEAN CORPUSCULAR HEMOGLOBIN 24.1 pg (25.0-35.0); MEAN CORPUSCULAR HGB CONC 30.2 g/dl (31.0-37.0); MEAN PLATELET VOLUME 10.5 fl (7.0-11.0); RBC 3.23 10^6/uL (3.5-6.1); RED CELL DISTRIBUTION WIDTH 22.3 % (11.5-14.5); WHITE BLOOD COUNT 5.9 10^3/uL (4.5-11.0)
[2018-04-02 08:32] LABS: ALB/GLOB RATIO 0.9 (1.1-1.8); ALBUMIN 2.9 g/dL (3.0-4.8); CALCIUM 9.1 mg/dL (8.4-10.5)
--- NOTE | 2018-04-02 09:44 | CP.PCM.PN ---
<Carlos Gray - Last Filed: 04/02/18 09:40> Subjective - Date & Time of Evaluation Date of Evaluation: 04/02/18 Time of Evaluation: 09:40 - Subjective Subjective: Patient is complaining of leg pain. She states she had small bowel movement lastnight but cannot remember the color. Nursing could not tell me the color as well. Denies abdominal pain. She states she is hungry. 5pt ROS completed and negative except for above. Objective - Vital Signs/Intake and Output Vital Signs (last 24 hours): Temp Pulse Resp BP Pulse Ox 98.5 F 61 20 125/63 97 04/02/18 06:00 04/02/18 06:00 04/02/18 06:00 04/02/18 06:00 04/02/18 06:00 Intake and Output: 04/02/18 04/02/18 06:59 18:59 Intake Total 360 Balance 360 - Medications Medications: Current Medications Albuterol/Ipratropium (Duoneb 3 Mg/0.5 Mg (3 Ml) Ud) 3 ml IH Q2H PRN PRN Reason: Shortness of Breath Alprazolam (Xanax) 0.25 mg PO TID PRN; Protocol PRN Reason: Anxiety Stop: 04/07/18 08:48 Last Admin: 04/01/18 22:50 Dose: 0.25 mg Atorvastatin Calcium (Lipitor) 20 mg PO DAILY [facility] Last Admin: 04/01/18 09:58 Dose: 20 mg Diltiazem HCl (Cardizem Cd) 180 mg PO DAILY [facility] Last Admin: 04/01/18 10:00 Dose: 180 mg Docusate Sodium (Colace) 100 mg PO DAILY [facility] Last Admin: 04/01/18 10:00 Dose: 100 mg Donepezil HCl (Aricept) 10 mg PO [facility] Last Admin: 04/01/18 22:52 Dose: 10 mg Furosemide (Lasix) 30 mg PO DAILY [facility] Last Admin: 04/01/18 09:58 Dose: 30 mg Gabapentin (Neurontin) 300 mg PO TID [facility]; Protocol Last Admin: 04/01/18 20:13 Dose: Not Given Ceftriaxone Sodium (Rocephin 1 Gram Ivpb) 1 gm in 100 mls @ 100 mls/hr IVPB DAILY [facility]; Protocol Last Admin: 04/01/18 09:59 Dose: 100 mls/hr Sodium Chloride (Sodium Chloride 0.45%) 1,000 mls @ 30 mls/hr IV .Q24H [facility] Last Admin: 04/01/18 09:00 Dose: Not Given Metoprolol Tartrate (Lopressor) 25 mg PO BID [facility] Last Admin: 04/01/18 20:12 Dose: Not Given Pantoprazole Sodium (Protonix Inj) 40 mg IVP Q12 [facility] Last Admin: 04/02/18 00:00 Dose: 40 mg Polyethylene Glycol (Miralax) 17 gm PO DAILY [facility] Last Admin: 04/01/18 09:58 Dose: 17 gm Tetrahydrozoline HCl/Zinc Sulfate (Visine 0.05% Opht Soln) 0 ml OU Q2H PRN PRN Reason: Dry eyes - Labs Labs: 04/02/18 07:30 04/02/18 07:30 - Constitutional Appears: Non-toxic, No Acute Distress - Head Exam Head Exam: ATRAUMATIC, NORMAL INSPECTION - Respiratory Exam Respiratory Exam: Clear to Ausculation Bilateral, NORMAL BREATHING PATTERN - Cardiovascular Exam Cardiovascular Exam: REGULAR RHYTHM, +S1, +S2 - GI/Abdominal Exam GI & Abdominal Exam: Soft, Normal Bowel Sounds. absent: Tenderness - Neurological Exam Neurological Exam: Alert, Awake, Oriented x3 - Psychiatric Exam Psychiatric exam: Normal Affect, Normal Mood - Skin Skin Exam: Dry, Normal Color Assessment and Plan - Assessment and Plan (Free Text) Assessment: 82 yo BF with Afib (on apixaban), HTN, DM, CAD, CHF, COPD, renal cancer s/p nephrectomy, lung cancer s/p lobectomy presenting with Syncope found to have melena. # Melena: Likely due to Upper GI Bleed source. Pt on Apixaban (last dose PM 03/31/18) and ASA with h/o gastric ulcer on last Enteroscopy. Last CSPY with AVMs throughout; therefore, could be slow R sided as well. BUN elevated but has fluctuating baseline. Hgb down to 8s from 11 earlier this month. Vitals stable. # AFib: On apixaban # CAD # DM # COPD Plan: - Clear Liq Diet - Hold Apixaban, ASA - Monitor Hgb - Type and Screen - PPI IV q 12 hrs - Further recs pending clinical course - Consider Blood transfusion, defer to primary. - Plan for EGD Wednesday. Pt seen and examined with Dr. Quintana; please see attestation for further recs/changes. <Jt Quintana Y - Last Filed: 04/02/18 09:52> Objective - Vital Signs/Intake and Output Vital Signs (last 24 hours): Temp Pulse Resp BP Pulse Ox 98.5 F 61 20 125/63 97 04/02/18 06:00 04/02/18 06:00 04/02/18 06:00 04/02/18 06:00 04/02/18 06:00 Intake and Output: 04/02/18 04/02/18 06:59 18:59 Intake Total 360 Balance 360 - Medications Medications: Current Medications Albuterol/Ipratropium (Duoneb 3 Mg/0.5 Mg (3 Ml) Ud) 3 ml IH Q2H PRN PRN Reason: Shortness of Breath Alprazolam (Xanax) 0.25 mg PO TID PRN; Protocol PRN Reason: Anxiety Stop: 04/07/18 08:48 Last Admin: 04/01/18 22:50 Dose: 0.25 mg Atorvastatin Calcium (Lipitor) 20 mg PO DAILY [facility] Last Admin: 04/01/18 09:58 Dose: 20 mg Diltiazem HCl (Cardizem Cd) 180 mg PO DAILY [facility] Last Admin: 04/01/18 10:00 Dose: 180 mg Docusate Sodium (Colace) 100 mg PO DAILY [facility] Last Admin: 04/01/18 10:00 Dose: 100 mg Donepezil HCl (Aricept) 10 mg PO HS [facility] Last Admin: 04/01/18 22:52 Dose: 10 mg Furosemide (Lasix) 30 mg PO DAILY [facility] Last Admin: 04/01/18 09:58 Dose: 30 mg Gabapentin (Neurontin) 300 mg PO TID [facility]; Protocol Last Admin: 04/01/18 20:13 Dose: Not Given Ceftriaxone Sodium (Rocephin 1 Gram Ivpb) 1 gm in 100 mls @ 100 mls/hr IVPB DAILY [facility]; Protocol Last Admin: 04/01/18 09:59 Dose: 100 mls/hr Sodium Chloride (Sodium Chloride 0.45%) 1,000 mls @ 30 mls/hr IV .Q24H [facility] Last Admin: 04/01/18 09:00 Dose: Not Given Metoprolol Tartrate (Lopressor) 25 mg PO BID [facility] Last Admin: 04/01/18 20:12 Dose: Not Given Pantoprazole Sodium (Protonix Inj) 40 mg IVP Q12 [facility] Last Admin: 04/02/18 00:00 Dose: 40 mg Polyethylene Glycol (Miralax) 17 gm PO DAILY [facility] Last Admin: 04/01/18 09:58 Dose: 17 gm Tetrahydrozoline HCl/Zinc Sulfate (Visine 0.05% Opht Soln) 0 ml OU Q2H PRN PRN Reason: Dry eyes - Labs Labs: 04/02/18 07:30 04/02/18 07:30 Attending/Attestation - Attestation I have personally seen and examined this patient.: Yes I have fully participated in the care of the patient.: Yes I have reviewed all pertinent clinical information, including history, physical exam and plan: Yes Notes (Text): 04/02/18 09:49 I have seen and examined patient with GI fellow. No acute events overnight, she is seen resting in bed comfortably. She denies abdominal pain, nausea, vomiting, fever/chills, or melena. She claims to have had a normal bowel movement yesterday. Review of vitals from today are normal. She is tolerating PO liquids without difficulty. Atrial fibrillation on eliquis (held) DM/HTN COPD History of renal cell and lung cancer Anemia, melena - Clear liquid diet as tolerated - H/H trending down, suggest transfusion and continued observation - Continue with PPI therapy - Patient will require EGD/colonoscopy given presence of melena with progressive anemia, tentatively planned for wednesday. Will continue to monitor patient clinical course.
[2018-04-02] MEDS: cefTRIAXone 1 gm 1 GM/100 ML BAG IVPB SCH (10:21)
[2018-04-02] MEDS: POLYETHYLENE GLYCOL 3350 17 GM/Dose PACKET PO SCH (10:21)
[2018-04-02] MEDS: diltiaZEM 180 mg/24 Hours CD Cap PO SCH (10:24)
--- NOTE | 2018-04-02 15:21 | PN ---
DATE: 04/02/2018 SUBJECTIVE: She was not feeling well this morning. She feels out of sorts. She is trying to eat, but not much of an appetite. PHYSICAL EXAMINATION: VITAL SIGNS: She has a 98.5 temperature, 61 pulse, 120/62 blood pressure, 20 respiratory rate, 97% O2 sat on room air. GENERAL: She looks lethargic. She is weak. HEENT: Head is atraumatic and normocephalic. HEART: Regular rate. LUNGS: Decreased breath sounds. ABDOMEN: Soft. EXTREMITIES: No edema. MEDICATIONS: She is currently on Aricept, Cardizem, Colace, DuoNebs, Lasix, Lipitor, Lopressor, MiraLax, gabapentin, Protonix, Rocephin, IV fluids, Visine, and Xanax. LABORATORY DATA: She has 5.9 white count, hemoglobin dropped to 7.8, had been given 2 units of packed red blood cells, hematocrit is 25.8, and platelets are 298. She has 140 sodium, potassium 3.6, BUN 39, creatinine 1.7, getting better. GFR is 29, sugar is 95, calcium is 9.1, iron is 49, total bili is 0.3. AST is 56, ALT is 50, alk phos 97, total protein 6.2. Urine was moderate bacteria, that is why she is on Rocephin. She has positive stool occult blood. She has gram-positive cocci in the urine. ASSESSMENT AND PLAN: She is being seen by GI, Cardiology, and Neurology. We will continue with aggressive treatment and care as we transfused two units of packed red blood cells today. Continue with intravenous fluids and aggressive GI care. Hopefully, she will improve. Marco Farris DO
[2018-04-03 07:54] LABS: MEAN CELL VOLUME 80.1 fl (80.0-105.0); MEAN CORPUSCULAR HEMOGLOBIN 25.3 pg (25.0-35.0); MEAN CORPUSCULAR HGB CONC 31.6 g/dl (31.0-37.0); MEAN PLATELET VOLUME 10.2 fl (7.0-11.0); RBC 4.38 10^6/uL (3.5-6.1); RED CELL DISTRIBUTION WIDTH 19.6 % (11.5-14.5); WHITE BLOOD COUNT 6.6 10^3/uL (4.5-11.0)
[2018-04-03 07:59] LABS: HEMOGLOBIN 11.1 g/dL (12.0-16.0)
[2018-04-03 08:05] LABS: ALB/GLOB RATIO 0.9 (1.1-1.8); ALBUMIN 3.1 g/dL (3.0-4.8)
--- NOTE | 2018-04-03 09:17 | CP.PCM.PN ---
<Carlos Gray - Last Filed: 04/03/18 09:14> Subjective - Date & Time of Evaluation Date of Evaluation: 04/03/18 Time of Evaluation: 09:14 - Subjective Subjective: Patient had some black stool lastnight. 2u PRBCs given with appropriate response in Hb. No vomiting. Tolerating CLD. Family at bedside, discussed need for EGD, colonoscopy. 5pt ROS completed and negative except for above. Objective - Vital Signs/Intake and Output Vital Signs (last 24 hours): Temp Pulse Resp BP Pulse Ox 98.2 F 78 18 136/77 98 04/03/18 07:00 04/03/18 07:00 04/03/18 07:00 04/03/18 07:00 04/03/18 07:00 Intake and Output: 04/03/18 04/03/18 06:59 18:59 Intake Total 685 Balance 685 - Medications Medications: Current Medications Albuterol/Ipratropium (Duoneb 3 Mg/0.5 Mg (3 Ml) Ud) 3 ml IH Q2H PRN PRN Reason: Shortness of Breath Alprazolam (Xanax) 0.25 mg PO TID PRN; Protocol PRN Reason: Anxiety Stop: 04/07/18 08:48 Last Admin: 04/02/18 13:47 Dose: 0.25 mg Atorvastatin Calcium (Lipitor) 20 mg PO DAILY [facility] Last Admin: 04/02/18 10:24 Dose: 20 mg Diltiazem HCl (Cardizem Cd) 180 mg PO DAILY [facility] Last Admin: 04/02/18 10:24 Dose: 180 mg Docusate Sodium (Colace) 100 mg PO DAILY [facility] Last Admin: 04/02/18 10:24 Dose: 100 mg Donepezil HCl (Aricept) 10 mg PO HS [facility] Last Admin: 04/02/18 21:23 Dose: 10 mg Furosemide (Lasix) 30 mg PO DAILY [facility] Last Admin: 04/02/18 10:22 Dose: 30 mg Gabapentin (Neurontin) 300 mg PO TID [facility]; Protocol Last Admin: 04/02/18 17:53 Dose: Not Given Ceftriaxone Sodium (Rocephin 1 Gram Ivpb) 1 gm in 100 mls @ 100 mls/hr IVPB DAILY [facility]; Protocol Last Admin: 01/26/19 10:21 Dose: 100 mls/hr Sodium Chloride (Sodium Chloride 0.45%) 1,000 mls @ 30 mls/hr IV .Q24H [facility] Last Admin: 04/01/18 09:00 Dose: Not Given Metoprolol Tartrate (Lopressor) 25 mg PO BID [facility] Last Admin: 04/02/18 17:53 Dose: Not Given Pantoprazole Sodium (Protonix Inj) 40 mg IVP Q12 [facility] Last Admin: 04/02/18 21:23 Dose: 40 mg Polyethylene Glycol (Miralax) 17 gm PO DAILY [facility] Last Admin: 04/02/18 10:21 Dose: 17 gm Tetrahydrozoline HCl/Zinc Sulfate (Visine 0.05% Opht Soln) 0 ml OU Q2H PRN PRN Reason: Dry eyes - Labs Labs: 04/03/18 07:30 04/03/18 07:30 - Constitutional Appears: Non-toxic, No Acute Distress - Head Exam Head Exam: NORMAL INSPECTION, NORMOCEPHALIC - ENT Exam ENT Exam: Mucous Membranes Moist, Normal Exam - Respiratory Exam Respiratory Exam: Clear to Ausculation Bilateral, NORMAL BREATHING PATTERN - Cardiovascular Exam Cardiovascular Exam: +S1, +S2. absent: Tachycardia - GI/Abdominal Exam GI & Abdominal Exam: Soft, Normal Bowel Sounds. absent: Tenderness - Neurological Exam Neurological Exam: Alert, Awake, Oriented x3 - Psychiatric Exam Psychiatric exam: Normal Affect, Normal Mood - Skin Skin Exam: Normal Color, Warm Assessment and Plan - Assessment and Plan (Free Text) Assessment: 82 yo BF with Afib (on apixaban), HTN, DM, CAD, CHF, COPD, renal cancer s/p nephrectomy, lung cancer s/p lobectomy presenting with Syncope found to have melena. # Melena: Likely due to Upper GI Bleed source. Pt on Apixaban (last dose PM 03/31/18) and ASA with h/o gastric ulcer on last Enteroscopy. Last CSPY with AVMs throughout; therefore, could be slow R sided as well. BUN elevated but has fluctuating baseline. Hgb down to 8s from 11 earlier this month. Vitals stable. # AFib: On apixaban # CAD # DM # COPD Plan: - Clear Liq Diet. Start bowel prep. - Hold Apixaban, ASA - Monitor Hgb. s/p 2u pRBCs with appropriate response. - Type and Screen - PPI IV q 12 hrs - Further recs pending clinical course - Plan for EGD/colonoscopy Wednesday. -NPO PM Pt seen and examined with Dr. Quintana; please see attestation for further recs/changes. <Jt Quintana - Last Filed: 04/03/18 09:32> Objective - Vital Signs/Intake and Output Vital Signs (last 24 hours): Temp Pulse Resp BP Pulse Ox 98.2 F 78 18 136/77 98 04/03/18 07:00 04/03/18 07:00 04/03/18 07:00 04/03/18 07:00 04/03/18 07:00 Intake and Output: 04/03/18 04/03/18 06:59 18:59 Intake Total 685 Balance 685 - Medications Medications: Current Medications Albuterol/Ipratropium (Duoneb 3 Mg/0.5 Mg (3 Ml) Ud) 3 ml IH Q2H PRN PRN Reason: Shortness of Breath Alprazolam (Xanax) 0.25 mg PO TID PRN; Protocol PRN Reason: Anxiety Stop: 04/07/18 08:48 Last Admin: 04/02/18 13:47 Dose: 0.25 mg Atorvastatin Calcium (Lipitor) 20 mg PO DAILY [facility] Last Admin: 04/02/18 10:24 Dose: 20 mg Diltiazem HCl (Cardizem Cd) 180 mg PO DAILY [facility] Last Admin: 04/02/18 10:24 Dose: 180 mg Docusate Sodium (Colace) 100 mg PO DAILY [facility] Last Admin: 04/02/18 10:24 Dose: 100 mg Donepezil HCl (Aricept) 10 mg PO HS [facility] Last Admin: 04/02/18 21:23 Dose: 10 mg Furosemide (Lasix) 30 mg PO DAILY [facility] Last Admin: 04/02/18 10:22 Dose: 30 mg Gabapentin (Neurontin) 300 mg PO TID [facility]; Protocol Last Admin: 04/02/18 17:53 Dose: Not Given Ceftriaxone Sodium (Rocephin 1 Gram Ivpb) 1 gm in 100 mls @ 100 mls/hr IVPB DAILY [facility]; Protocol Last Admin: 04/02/18 10:21 Dose: 100 mls/hr Sodium Chloride (Sodium Chloride 0.45%) 1,000 mls @ 30 mls/hr IV .Q24H [facility] Last Admin: 04/01/18 09:00 Dose: Not Given Metoprolol Tartrate (Lopressor) 25 mg PO BID [facility] Last Admin: 04/02/18 17:53 Dose: Not Given Pantoprazole Sodium (Protonix Inj) 40 mg IVP Q12 [facility] Last Admin: 04/02/18 21:23 Dose: 40 mg Polyethylene Glycol (Miralax) 17 gm PO DAILY [facility] Last Admin: 04/02/18 10:21 Dose: 17 gm Tetrahydrozoline HCl/Zinc Sulfate (Visine 0.05% Opht Soln) 0 ml OU Q2H PRN PRN Reason: Dry eyes - Labs Labs: 04/03/18 07:30 04/03/18 07:30 Attending/Attestation - Attestation I have personally seen and examined this patient.: Yes I have fully participated in the care of the patient.: Yes I have reviewed all pertinent clinical information, including history, physical exam and plan: Yes Notes (Text): 04/03/18 09:30 I have seen and examined patient with GI fellow. No acute events overnight, she is seen sitting in chair next to bed, appears comfortable, family present. She denies abdominal pain, nausea, vomiting, fever/chills. Tolerating PO liquids without difficulty, does endorse one episode of dark colored stool yesterday. Review of vitals from today are normal. Atrial fibrillation on eliquis (held) DM/HTN COPD History of renal cell and lung cancer Anemia, melena - Liquid diet as tolerated - H/H stable, s/p PRBC transfusion, continue to monitor - Continue with PPI therapy - Given requirement to be on eliquis along with prior history of colonic AVMs and gastric ulcer, plan for EGD/colonoscopy evaluation tomorrow. Golytely bowel preparation today, NPO after midnight.
[2018-04-03] MEDS: diltiaZEM 180 mg/24 Hours CD Cap PO SCH (09:56)
[2018-04-03] MEDS: POLYETHYLENE GLYCOL 3350 17 GM/Dose PACKET PO SCH (09:58)
[2018-04-03] MEDS: cefTRIAXone 1 gm 1 GM/100 ML BAG IVPB SCH (09:59)
[2018-04-03] MEDS: Peg-Electrolyte Oral Soln 4L (Golytely) PO ONE ×2 (12:40→14:21)
--- NOTE | 2018-04-03 15:37 | PN ---
DATE: 04/03/2018 SUBJECTIVE: She is resting comfortably in bed. Family is present, daughter and her son. Daughter is a nurse, questions to me this morning. She has had a GI bleed, VRE in the urine, which could be a colonizer. She is alert and pleasantly confused. She is also in pain. I think, the tramadol, we have to stop it that could be part of the reason why she had the GI bleed. She is going for upper and lower endoscopy tomorrow. MEDICATIONS: She is on IV fluids, Aricept, Cardizem, Colace, DuoNebs, Lasix, Lipitor, Lopressor, MiraLax, Neurontin, IV Protonix 40 every 12 hours, Rocephin, Visine, and Xanax. OBJECTIVE: VITAL SIGNS: She has 98.2 temperature, 78 pulse, 135/74 blood pressure, 18 respiratory rate, 98% O2 sat on room air. HEENT: Head is atraumatic, normocephalic. HEART: Regular rate. LUNGS: Decreased breath sounds, but clear. ABDOMEN: Soft, nontender. Positive bowel sounds. EXTREMITIES: No edema. LABORATORY DATA: She has a 6.6 white count, 11.1 hemoglobin after 2 units of packed red blood cells, 35.1 hematocrit with a 280 platelets, hemoglobin was low 7.8. Sodium 139, potassium 3.8, BUN is 26, creatinine 1.4 improving. GFR is 36, sugar is 94, calcium is 9, total bili is 0.5, AST is 83, ALT is 70 and phos 114. IMPRESSION AND PLAN: She is being seen by Gastroenterology, Infectious Disease. We will continue with aggressive treatment and care. She is in for endoscopy, upper and lower tomorrow. Checking her labs. Hopefully she will not bleed anymore. Marco Farris DO MTDD
[2018-04-03] MEDS ORDERED: Bisacodyl 5mg EC Tab PO ONE (17:00)
--- NOTE | 2018-04-03 17:13 | CON ---
DATE: 04/03/2018 LOCATION: The patient is seen in Room 572, Bed 1. CHIEF COMPLAINT: Positive urine culture for VRE x1-day duration. HISTORY OF PRESENT ILLNESS: This is an 82-year-old female known to me from previous admissions with atrial fibrillation, hypertension, coronary artery disease, diabetes mellitus, congestive heart failure and chronic obstructive lung disease, renal cell cancer, lung cancer, anemia, anxiety, who is admitted now because of syncope and urine culture was done. Urine culture grew VRE. Infectious disease consultation requested. The patient had no urinary symptoms. No frequency. No dysuria. No urinary incontinence and other urinary symptoms. No fevers, no chills. REVIEW OF SYSTEMS: A 12-point review systems is performed. PAST MEDICAL HISTORY: Significant for atrial fibrillation, hypertension, coronary artery disease, congestive heart failure, diabetes mellitus, chronic obstructive lung disease, renal cell cancer, lung cancer, anemia, and anxiety. PAST SURGICAL HISTORY: Significant for nephrectomy and lobectomy. ALLERGIES: THE PATIENT HAS NO KNOWN ALLERGIES. MEDICATIONS AT HOME: Reveals the patient to be on tramadol, Lasix and Eliquis. PHYSICAL EXAMINATION: GENERAL: On exam, the patient is in bed, in no acute distress, and her mental status is baseline. VITAL SIGNS: Temperature of 98, blood pressure is 130/60, respiratory rate of 18, heart rate is 78. HEENT: Examination of HEENT is unremarkable. NECK: Supple. LUNGS: Decreased breath sounds. HEART: Normal S1, S2. ABDOMEN: Soft, nontender. LABORATORY DATA: Laboratory examination reveals the patient's white count is 6.6, hemoglobin is noted. Chemistries are reviewed. Urinalysis is noted; 1 to 3 wbc's. Stool occult blood is positive. Microbiology reveals VRE in the urine. ASSESSMENT AND PLAN: This is an 82-year-old female who is admitted with syncope, found to have a vancomycin-resistant Enterococci in the urine, asymptomatic. We will discontinue Rocephin. No antibiotics needed at this time. We will follow with you. The patient is at risk for developing nosocomial infections. Jenaro Farias MD
[2018-04-04 07:36] LABS: HEMOGLOBIN 12.2 g/dL (12.0-16.0); MEAN CELL VOLUME 81.1 fl (80.0-105.0); MEAN CORPUSCULAR HEMOGLOBIN 25.3 pg (25.0-35.0); MEAN CORPUSCULAR HGB CONC 31.2 g/dl (31.0-37.0); MEAN PLATELET VOLUME 10.2 fl (7.0-11.0); RBC 4.82 10^6/uL (3.5-6.1); RED CELL DISTRIBUTION WIDTH 19.9 % (11.5-14.5); WHITE BLOOD COUNT 7.1 10^3/uL (4.5-11.0)
[2018-04-04] MEDS ORDERED: Midazolam 2 MG/2 ML VIAL ONE ×3 (08:03→08:13)
[2018-04-04 08:28] LABS: ALB/GLOB RATIO 0.9 (1.1-1.8); ALBUMIN 3.3 g/dL (3.0-4.8); CALCIUM 9.2 mg/dL (8.4-10.5)
[2018-04-04] MEDS: diltiaZEM 180 mg/24 Hours CD Cap PO SCH (09:19)
[2018-04-04 09:20] VITALS: O2SAT 97
[2018-04-04] MEDS: POLYETHYLENE GLYCOL 3350 17 GM/Dose PACKET PO SCH (09:20)
--- NOTE | 2018-04-04 10:15 | CP.PCM.PN ---
Subjective - Date & Time of Evaluation Date of Evaluation: 04/04/18 Time of Evaluation: 10:12 - Subjective Subjective: Patient seen and examined, resting comfortably in bed. No acute events overnight, she denies abdominal pain, nausea, vomiting. s/p EGD and colonoscopy today showing duodenal AVM s/p APC, diverticulosis, sigmoid polyp, internal hemorrhoids. Objective - Vital Signs/Intake and Output Vital Signs (last 24 hours): Temp Pulse Resp BP Pulse Ox 97.9 F 60 16 112/64 97 04/04/18 09:32 04/04/18 09:32 04/04/18 09:32 04/04/18 09:32 04/04/18 09:32 - Medications Medications: Current Medications Albuterol/Ipratropium (Duoneb 3 Mg/0.5 Mg (3 Ml) Ud) 3 ml IH Q2H PRN PRN Reason: Shortness of Breath Alprazolam (Xanax) 0.25 mg PO TID PRN; Protocol PRN Reason: Anxiety Stop: 04/07/18 08:48 Last Admin: 04/02/18 13:47 Dose: 0.25 mg Atorvastatin Calcium (Lipitor) 20 mg PO DAILY [facility] Last Admin: 04/04/18 09:19 Dose: Not Given Diltiazem HCl (Cardizem Cd) 180 mg PO DAILY [facility] Last Admin: 04/04/18 09:19 Dose: Not Given Docusate Sodium (Colace) 100 mg PO DAILY [facility] Last Admin: 04/04/18 09:19 Dose: Not Given Donepezil HCl (Aricept) 10 mg PO HS [facility] Last Admin: 04/03/18 22:52 Dose: 10 mg Furosemide (Lasix) 30 mg PO DAILY [facility] Last Admin: 04/04/18 09:19 Dose: Not Given Gabapentin (Neurontin) 300 mg PO TID [facility]; Protocol Last Admin: 04/04/18 09:20 Dose: Not Given Sodium Chloride (Sodium Chloride 0.45%) 1,000 mls @ 30 mls/hr IV .Q24H [facility] Last Admin: 04/01/18 09:00 Dose: Not Given Metoprolol Tartrate (Lopressor) 25 mg PO BID [facility] Last Admin: 04/04/18 09:19 Dose: Not Given Pantoprazole Sodium (Protonix Inj) 40 mg IVP Q12 [facility] Last Admin: 04/04/18 09:20 Dose: Not Given Polyethylene Glycol (Miralax) 17 gm PO DAILY [facility] Last Admin: 04/04/18 09:20 Dose: Not Given Tetrahydrozoline HCl/Zinc Sulfate (Visine 0.05% Opht Soln) 0 ml OU Q2H PRN PRN Reason: Dry eyes - Labs Labs: 04/04/18 07:20 04/04/18 07:20 Assessment and Plan - Assessment and Plan (Free Text) Assessment: Atrial fibrillation on eliquis COPD Anemia History of renal cell and lung cancer Melena - s/p EGD/colonoscopy today showing duodenal AVM, diverticulosis, sigmoid polyp, internal hemorrhoids. No presence of active bleeding noted. Plan: - Advance diet as tolerated - H/H stable, continue to monitor - Continue with PPI therapy - Await colonoscopy biopsy results - From GI standpoint ok to resume eliquis if clinically indicated - If progressive anemia noted, would recommend outpatient capsule endoscopy. No further planned GI intervention, will sign off case. Please reconsult as necessary, thank you.
--- NOTE | 2018-04-04 11:54 | CP.PCM.PCO ---
Physician Communication Note - Physician Communication Note Physician Communication Note: Per GI & PMD, pt medically cleared for dc today
--- NOTE | 2018-04-04 12:19 | CP.PCM.PN ---
Subjective - Date & Time of Evaluation Date of Evaluation: 04/04/18 Time of Evaluation: 09:45 - Subjective Subjective: Comfortable in bed, no fevers, not in distress. Objective - Vital Signs/Intake and Output Vital Signs (last 24 hours): Temp Pulse Resp BP Pulse Ox 97.9 F 60 16 112/64 97 04/04/18 09:32 04/04/18 09:32 04/04/18 09:32 04/04/18 09:32 04/04/18 09:32 - Medications Medications: Current Medications Albuterol/Ipratropium (Duoneb 3 Mg/0.5 Mg (3 Ml) Ud) 3 ml IH Q2H PRN PRN Reason: Shortness of Breath Alprazolam (Xanax) 0.25 mg PO TID PRN; Protocol PRN Reason: Anxiety Stop: 04/07/18 08:48 Last Admin: 04/02/18 13:47 Dose: 0.25 mg Atorvastatin Calcium (Lipitor) 20 mg PO DAILY [facility] Last Admin: 04/04/18 09:19 Dose: Not Given Diltiazem HCl (Cardizem Cd) 180 mg PO DAILY [facility] Last Admin: 04/04/18 09:19 Dose: Not Given Docusate Sodium (Colace) 100 mg PO DAILY [facility] Last Admin: 04/04/18 09:19 Dose: Not Given Donepezil HCl (Aricept) 10 mg PO HS [facility] Last Admin: 04/03/18 22:52 Dose: 10 mg Furosemide (Lasix) 30 mg PO DAILY [facility] Last Admin: 04/04/18 09:19 Dose: Not Given Gabapentin (Neurontin) 300 mg PO TID [facility]; Protocol Last Admin: 04/04/18 09:20 Dose: Not Given Sodium Chloride (Sodium Chloride 0.45%) 1,000 mls @ 30 mls/hr IV .Q24H [facility] Last Admin: 04/01/18 09:00 Dose: Not Given Metoprolol Tartrate (Lopressor) 25 mg PO BID [facility] Last Admin: 04/04/18 09:19 Dose: Not Given Pantoprazole Sodium (Protonix Inj) 40 mg IVP Q12 [facility] Last Admin: 04/04/18 09:20 Dose: Not Given Polyethylene Glycol (Miralax) 17 gm PO DAILY [facility] Last Admin: 04/04/18 09:20 Dose: Not Given Tetrahydrozoline HCl/Zinc Sulfate (Visine 0.05% Opht Soln) 0 ml OU Q2H PRN PRN Reason: Dry eyes - Labs Labs: 04/04/18 07:20 04/04/18 07:20 - Constitutional Appears: Chronically Ill - Head Exam Head Exam: NORMAL INSPECTION - Respiratory Exam Respiratory Exam: Decreased Breath Sounds - Cardiovascular Exam Cardiovascular Exam: +S1, +S2 - GI/Abdominal Exam GI & Abdominal Exam: Soft. absent: Tenderness Assessment and Plan - Assessment and Plan (Free Text) Plan: Assessment asymptomatic bacteriuria with VRE history of left sided HCAP, S/P treatment with antibiotics history of UTI with ESBL E. coli S/P treatment with antibiotics S/P Severe sepsis R/O intra-abdominal infection atrial fibrillation COPD CAD chronic CHF renal cell cancer S/P nephrectomy lung cancer S/P lobectomy anxiety dementia Plan will continue to monitor clinically off antibiotics while the patient is in the hospital since she is at risk for nosocomial infections
--- NOTE | 2018-04-04 14:03 | PN ---
DATE: 04/04/2018 SUBJECTIVE: The patient is without shortness of breath. PHYSICAL EXAMINATION: VITAL SIGNS: Blood pressure 112/64, heart rates in the 60s. NECK: Negative JVD. LUNGS: Without rales. HEART: S1, S2. EXTREMITIES: Without edema. LABORATORY DATA: Hemoglobin is 12.2. Chemistries, BUN and creatinine are unremarkable. The endoscopic findings are noted. IMPRESSION: 1. Marked anemia. 2. History of pacemaker. 3. Renal insufficiency. 4. Chronic obstructive pulmonary disease. 5. Good left ventricular function. 6. Anemia. PLAN: Given these findings, the patient is hemodynamically stable. Oswald Fonseca MD
[2018-04-04 15:08] VITALS: BP 129/72; PULSE 67; RESP 20; TEMP 98.5
--- NOTE | 2018-04-04 15:26 | PN ---
DATE: 04/04/2018 Possible discharge summary, if they get an arrangement, to send her to [facility]. SUBJECTIVE: She is on IV fluids, Aricept, Cardizem, Colace, Dulcolax, DuoNebs, GoLYTELY, Lasix, Lipitor, Lopressor, MiraLax, Protonix, Visine, Xanax. She will still be started on Eliquis tomorrow. She is hungry. PHYSICAL EXAMINATION: VITAL SIGNS: She has a 97.9 temperature, 60 pulse, 112/64 blood pressure, 16 respiratory rate, 97% O2 saturation on nasal cannula. HEENT: Head is atraumatic and normocephalic. HEART: Regular rate. LUNGS: Clear to auscultation. ABDOMEN: Soft. On endoscopy, she did have an AVM, which they cauterized, so she should not bleed anymore. EXTREMITIES: No edema. LABORATORY DATA: She has a 140 sodium, potassium 4.3, BUN 20, creatinine 1.3 which is better. GFR is 39. Sugar is 110, calcium 9.2. Total bili is 0.5. AST is 56, ALT is 61, alk phos is 115, and total protein is 7.1, white count is 7.1, hemoglobin is better at 12.2, hematocrit is 39.1, and platelets of 306. ASSESSMENT AND PLAN: If they can get it arranged, she should be able to be discharge today to a subacute rehab, otherwise tomorrow. She will be started on Eliquis tomorrow. Marco Farris DO
[2018-04-04] MEDS ORDERED: Pantoprazole 40 mg EC Tab PO SCH (22:00)
--- NOTE | 2018-04-05 07:05 | PQF ---
PROVIDER RESPONSE TEXT: Chronic blood loss REVIEWER QUERY TEXT: Anemia Type Anemia is documented in the Medical Record. Please specify the cause (includes suspected or probable cause) Such as: -- Due to acute blood loss -- Due to chronic blood loss -- Due to iron deficiency -- Due to postoperative blood loss -- Due to chronic disease -- Other, please specify The patient's Clinical Indicators include: Please specify type and acuity of anemia treated with blood transfusions. Query created by: Madalyn Hassan on 04/04/2018 9:45 AM Electronically signed by: Marco Farris DO 04/05/2018 7:02 AM
== END 2018-04-04 21:39 | DRG 379 ==
LOC: ED 02:48 → ERH 05:21 → 2RSO 08:17 → 5RSO 04-01 13:39 → OBSVTOIN 04-01 15:25
PROVIDERS: ADMIT Family Medicine; ATTEND Family Medicine
PROC: 30233N1 Transfusion of Nonautologous Red Blood Cells into Peripheral Vein, Percutaneous Approach (ICD-10-PCS; 2018-04-02)
PROC: 0DBK8ZX Excision of Ascending Colon, Via Natural or Artificial Opening Endoscopic, Diagnostic (ICD-10-PCS; 2018-04-04)
PROC: 0W3P8ZZ Control Bleeding in Gastrointestinal Tract, Via Natural or Artificial Opening Endoscopic (ICD-10-PCS; principal; 2018-04-04 08:00)
PROC: 0DBN8ZZ Excision of Sigmoid Colon, Via Natural or Artificial Opening Endoscopic (ICD-10-PCS; 2018-04-04 08:00)
DX: K92.2 Gastrointestinal hemorrhage, unspecified (principal); D50.0 Iron deficiency anemia secondary to blood loss (chronic); I11.0 Hypertensive heart disease with heart failure; I48.91 Unspecified atrial fibrillation; K31.819 Angiodysplasia of stomach and duodenum without bleeding; K29.70 Gastritis, unspecified, without bleeding; K57.30 Diverticulosis of large intestine without perforation or abscess without bleeding; K63.5 Polyp of colon; I25.10 Atherosclerotic heart disease of native coronary artery without angina pectoris; E11.9 Type 2 diabetes mellitus without complications; F03.90 Unspecified dementia, unspecified severity, without behavioral disturbance, psychotic disturbance, mood disturbance, and anxiety; J44.9 Chronic obstructive pulmonary disease, unspecified; I50.9 Heart failure, unspecified; R82.71 Bacteriuria; B95.2 Enterococcus as the cause of diseases classified elsewhere; Z16.21 Resistance to vancomycin; K64.1 Second degree hemorrhoids; K21.9 Gastro-esophageal reflux disease without esophagitis; R26.81 Unsteadiness on feet; N28.9 Disorder of kidney and ureter, unspecified; F41.9 Anxiety disorder, unspecified; Z79.01 Long term (current) use of anticoagulants; Z91.81 History of falling; Z85.528 Personal history of other malignant neoplasm of kidney; Z85.118 Personal history of other malignant neoplasm of bronchus and lung; Z87.01 Personal history of pneumonia (recurrent); Z87.440 Personal history of urinary (tract) infections; Z90.5 Acquired absence of kidney; Z90.2 Acquired absence of lung [part of]; Z95.0 Presence of cardiac pacemaker; Z87.11 Personal history of peptic ulcer disease; Z87.891 Personal history of nicotine dependence

== ENCOUNTER 2018-04-09 17:14 | Inpatient (IN) | payer MEDICARE ==
[2018-04-09 17:14] VITALS: PULSE 45
[2018-04-09 18:02] VITALS: BMI 21.2
[2018-04-09 18:55] LABS: BASO # 0.04 K/mm3 (0.0-2.0); BASO % 0.4 % (0.0-3.0); EOS # 0.2 (0.0-0.7); EOS % 2.2 % (1.5-5.0); HEMOGLOBIN 11.3 g/dL (12.0-16.0); LYMPH # 1.5 (1.2-3.4); LYMPH % 17.2 % (22.0-35.0); MEAN CELL VOLUME 83.8 fl (80.0-105.0); MEAN CORPUSCULAR HEMOGLOBIN 25.5 pg (25.0-35.0); MEAN CORPUSCULAR HGB CONC 30.4 g/dl (31.0-37.0); MEAN PLATELET VOLUME 9.9 fl (7.0-11.0); MONO # 1.1 (0.1-0.6); MONO % 12.6 % (1.0-6.0); RBC 4.44 10^6/uL (3.5-6.1); RED CELL DISTRIBUTION WIDTH 20.1 % (11.5-14.5); WHITE BLOOD COUNT 8.9 10^3/uL (4.5-11.0)
[2018-04-09 19:08] LABS: ALBUMIN 3.6 g/dL (3.0-4.8); CALCIUM 8.9 mg/dL (8.4-10.5)
[2018-04-09 19:32] LABS: VENOUS BLOOD GAS BASE EXCESS -1.4 mmol/L (0.0-2.0); VENOUS BLOOD GAS PO2 36 mm/Hg (30-55); VENOUS BLOOD PH 7.32 (7.32-7.43)
[2018-04-09] MEDS ORDERED: Vancomycin 1gm in NS 250ml 1 GM/250 ML BAG IVPB STA (19:42)
[2018-04-09] MEDS ORDERED: Piperacillin/Tazobact 3.375 gm 100 ML IVPB STA (19:43)
[2018-04-09 20:03] LABS: TROPONIN I 0.08 ng/mL
--- NOTE | 2018-04-09 20:26 | ED PDOC ---
Arrival/HPI - General Chief Complaint: Altered Mental Status Time Seen by Provider: 04/09/18 17:25 Historian: Patient - History of Present Illness Narrative History of Present Illness (Text): 04/09/18 20:22 82yo female with pmhx of hypertension, CHF, renal insufficiency referred to ED from [place] for change in mentation. Patient was however AAO x3 in ED. She report productive cough for few days. Denies chest pain, SIB, night sweat, abdominal pain, nausea, vomiting, headache, dizziness, focal weakness, urinary symptoms, fever (but she was febrile in triage), any other complaint. Past Medical History - Provider Review Nursing Documentation Reviewed: Yes - Infectious Disease Hx of Infectious Diseases: None - Tetanus Immunization Tetanus Immunization: >10 years Ago - Cardiac Hx Cardiac Disorders: Yes Hx Cardiac Arrhythmia: Yes Hx Congestive Heart Failure: Yes Hx Hypertension: Yes Hx Peripheral Edema: Yes - Pulmonary Hx Respiratory Disorders: Yes Hx Chronic Obstructive Pulmonary Disease (COPD): Yes Hx Pneumonia: Yes - Neurological Hx Neurological Disorder: Yes Hx Dementia: Yes - HEENT Hx HEENT Disorder: Yes - Renal Hx Renal Disorder: Yes Hx Renal Cancer: Yes - Endocrine/Metabolic Hx Endocrine Disorders: Yes Hx Diabetes Mellitus Type 2: Yes - Hematological/Oncological Hx Blood Disorders: Yes Hx Anemia: Yes Hx Cancer: Yes - Integumentary Hx Dermatological Disorder: Yes - Musculoskeletal/Rheumatological Hx Musculoskeletal Disorders: Yes Hx Arthritis: Yes Hx Unsteady Gait: Yes - Gastrointestinal Hx Gastrointestinal Disorders: Yes Hx Gastroesophageal Reflux: Yes - Genitourinary/Gynecological Hx Genitourinary Disorders: Yes (ESBL IN THE URINE H/O) Hx Reproductive Disorders: No - Psychiatric Hx Psychophysiologic Disorder: Yes Hx Anxiety: Yes Hx Substance Use: No - Surgical History Other/Comment: lobectomy/nephrectomy - Anesthesia Hx Anesthesia: Yes Hx Anesthesia Reactions: No Hx Malignant Hyperthermia: No Family/Social History - Physician Review Nursing Documentation Reviewed: Yes Family/Social History: Unknown Family HX Smoking Status: Never Smoked Hx Alcohol Use: No Hx Substance Use: No Allergies/Home Meds Allergies/Adverse Reactions: Allergies No Known Allergies Allergy (Verified 04/09/18 17:48) Home Medications: Home Meds Medication Instructions Recorded Confirmed RX: Albuterol/Ipratropium [Duoneb 3 ml IH Q4 04/09/18 04/09/18 3 mg/0.5 mg (3 ml) UD] RX: Furosemide [Lasix] 20 mg PO DAILY 04/09/18 04/09/18 RX: Gabapentin [Neurontin] 100 mg PO Q8 PRN 04/09/18 04/09/18 RX: Gabapentin [Neurontin] 300 mg PO TID 04/09/18 04/09/18 Review of Systems - Physician Review All systems were reviewed & negative as marked: Yes - Review of Systems Constitutional: Normal Eyes: Normal ENT: Normal Respiratory: Cough, Sputum Cardiovascular: Normal Gastrointestinal: Normal Genitourinary Female: Normal Musculoskeletal: Normal Skin: Normal Neurological: Normal Endocrine: Normal Hemo/Lymphatic: Normal Psychiatric: Normal Physical Exam Vital Signs Reviewed: Yes Vital Signs Temp Pulse Resp BP Pulse Ox 04/09/18 20:15 101 F H 04/09/18 20:07 145/86 04/09/18 20:00 75 18 145/86 94 L 04/09/18 17:48 101 F H 81 20 106/59 L 94 L Temperature: Febrile Blood Pressure: Normal Pulse: Regular Respiratory Rate: Normal Appearance: Positive for: Well-Appearing, Non-Toxic, Comfortable Pain Distress: None Mental Status: Positive for: Alert and Oriented X 3 - Systems Exam Head: Present: Atraumatic, Normocephalic Pupils: Present: PERRL Extroacular Muscles: Present: EOMI Conjunctiva: Present: Normal Mouth: Present: Moist Mucous Membranes Neck: Present: Normal Range of Motion Respiratory/Chest: Present: Good Air Exchange, Rales. No: Respiratory Distress, Accessory Muscle Use, Wheezes, Decreased Breath Sounds, Retracting, Rhonchi Cardiovascular: Present: Regular Rate and Rhythm, Normal S1, S2. No: Murmurs Abdomen: No: Tenderness, Distention, Peritoneal Signs Back: Present: Normal Inspection Upper Extremity: Present: Normal Inspection. No: Cyanosis, Edema Lower Extremity: Present: Normal Inspection. No: Edema Neurological: Present: GCS=15, CN II-XII Intact, Speech Normal Skin: Present: Warm, Dry, Normal Color. No: Rashes Psychiatric: Present: Alert, Oriented x 3, Normal Insight, Normal Concentration Medical Decision Making ED Course and Treatment: 04/09/18 23:12 82yo female referred to ED for Lethargy. she was AAO x3 04/10/18 01:23 Labs EKG Chest xray Blood culture EKG Chest xray - RLL consolidation Lab was reviewed no leukocytosis. Pt was febrile in ED with elevated Lactate and PNE. Code sepsis was started Vanco and Zosyn ordered Elevated BNP was noted and Lasix was ordered. Fluid was not ordered at this time Case was DW Dr. Farris while he was in ED. He saw pt by the bedside and pt was admitted to his service. He requested Dr. Smith and Jarrett consult and it was placed. - Lab Interpretations Lab Results: pO2 36 mm/Hg (30-55) 04/09/18 19:24 VBG pH 7.32 (7.32-7.43) 04/09/18 19:24 VBG pCO2 49.0 (40-60) 04/09/18 19:24 VBG HCO3 25.2 mmol/l (21-28) 04/09/18 19:24 VBG Total CO2 26.7 mmol.L (22-28) 04/09/18 19:24 VBG O2 Sat (Calc) 75.9 % (40-65) H 04/09/18 19:24 VBG Base Excess -1.4 mmol/L (0.0-2.0) L 04/09/18 19:24 VBG Potassium 4.7 mmol/L (3.6-5.2) 04/09/18 19:24 Sodium 143.0 mmol/L (132-148) 04/09/18 19:24 Chloride 107.0 mmol/L (98-107) 04/09/18 19:24 Glucose 99 mg/dl (65-105) 04/09/18 19:24 Lactate 2.9 mmol/L (0.7-2.1) H 04/09/18 19:24 FiO2 21.0 % 04/09/18 19:24 Crit Value Called To Vannessa guajardo 04/09/18 19:24 Crit Value Called By Atc 04/09/18 19:24 Blood Gas Notified Time 19304/09/18 19:24 Troponin I 0.08 ng/mL 04/09/18 18:34 NT-Pro-B Natriuret Pep 73787 pg/mL (0-450) H 04/09/18 18:34 Total Bilirubin 0.3 mg/dL (0.2-1.3) 04/09/18 18:34 AST 35 U/L (14-36) 04/09/18 18:34 ALT 35 U/L (7-56) 04/09/18 18:34 Alkaline Phosphatase 93 U/L (38-126) 04/09/18 18:34 Total Protein 7.3 g/dL (5.8-8.3) 04/09/18 18:34 Albumin 3.6 g/dL (3.0-4.8) 04/09/18 18:34 Globulin 3.7 gm/dL 04/09/18 18:34 Albumin/Globulin Ratio 1.0 (1.1-1.8) L 04/09/18 18:34 - RAD Interpretation Radiology Orders: 04/09/18 17:50 CHEST PORTABLE [RAD] Stat - Medication Orders Current Medication Orders: Vancomycin HCl (Vancomycin 1gm) 1 gm in 250 mls @ 167 mls/hr IVPB STAT STA; Protocol Stop: 04/09/18 21:11 Discontinued Medications Acetaminophen (Tylenol 325mg Tab) 650 mg PO STAT STA Stop: 04/09/18 20:03 Last Admin: 04/09/18 20:15 Dose: 650 mg [facility] Pain/Vitals Document 04/09/18 20:15 KV (Rec: 04/09/18 20:16 KV [id number]) Vitals Temperature (97.6 F-99.6 F) 101 F Temperature Source Oral Furosemide (Lasix) 40 mg IVP STAT STA Stop: 04/09/18 19:45 Last Admin: 04/09/18 20:07 Dose: 40 mg MAR Blood Pressure Document 04/09/18 20:07 KV (Rec: 04/09/18 20:09 KV [id number]) Blood Pressure Blood Pressure (100/60-150/90 mm Hg) 145/86 IVP Administration Document 04/09/18 20:07 KV (Rec: 04/09/18 20:09 KV [id number]) Charges for Administration # of IVP Administrations 1 Piperacillin Sod/Tazobactam Sod (Zosyn 3.375 In Ns 100ml) 100 mls @ 200 mls/hr IVPB STAT STA; Protocol Stop: 04/09/18 20:12 Last Admin: 04/09/18 20:10 Dose: 200 mls/hr eMAR Start Stop Document 04/09/18 20:10 KV (Rec: 04/09/18 20:10 KV [id number]) Intravenous Solution Start Date 04/09/18 Start Time 20:10 Disposition/Present on Arrival - Present on Arrival Any Indicators Present on Arrival: No History of DVT/PE: No History of Uncontrolled Diabetes: No Urinary Catheter: No History of Decub. Ulcer: No History Surgical Site Infection Following: None - Disposition Have Diagnosis and Disposition been Completed?: Yes Diagnosis: Pneumonia, CKD (chronic kidney disease), CHF (congestive heart failure), Sepsis Disposition: HOSPITALIZED Disposition Time: 20:05 Patient Plan: Admission Patient Problems: Current Active Problems Problem Status Onset CHF (congestive heart failure) Acute Pneumonia Acute CKD (chronic kidney disease) Chronic Condition: GUARDED
[2018-04-09] MEDS ORDERED: Piperacillin/Tazobact 2.25gm 2.25 GM/100 ML BAG IVPB STA (20:46)
[2018-04-09 20:54] LABS: URINE BILIRUBIN NEGATIVE (NEGATIVE); URINE BLOOD NEGATIVE (NEGATIVE); URINE GLUCOSE (UA) NEGATIVE (NEGATIVE); URINE LEUKOCYTE ESTERASE NEGATIVE Leu/uL (NEGATIVE); URINE PROTEIN TRACE mg/dL (<30 mg/dL); URINE UROBILINOGEN 0.2 E.U./dL (<1 E.U./dL)
[2018-04-09 20:55] LABS: URINE APPEARANCE CLEAR (CLEAR); URINE COLOR YELLOW (YELLOW)
[2018-04-09 21:09] LABS: URINE BACTERIA FEW /hpf
[2018-04-09 23:09] LABS: VENOUS BLOOD GAS BASE EXCESS 0.8 mmol/L (0.0-2.0); VENOUS BLOOD GAS PO2 80 mm/Hg (30-55); VENOUS BLOOD PH 7.37 (7.32-7.43)
--- NOTE | 2018-04-09 23:53 | HP ---
DATE OF EXAM: 04/09/2018 HISTORY OF PRESENT ILLNESS: She was just discharged from [facility] the other day. She is now on the emergency room, very lethargic, short of breath, possible she is having a pneumonia. She did not have this when she left the hospital the other day. An 82-year-old female with change in mentation, productive cough, brought in by ambulance, night sweats, abdominal pain, not having that, she was febrile on triage. PAST MEDICAL HISTORY: Hypertension, CHF, renal insufficiency. She has cardiac arrhythmia, congestive heart failure, hypertension, peripheral edema, shortness of breath, COPD history, dementia, renal cancer history, diabetes history, anemia, unsteady gait and arthritis. She was just transferred from the hospital to the subacute rehab for physical therapy. She has GERD. She had ESBL in the urine history. She has anxiety. PAST SURGICAL HISTORY: Lobectomy and nephrectomy. FAMILY HISTORY: Unknown family history. SOCIAL HISTORY: Nonsmoker. No drinking. No drugs. ALLERGIES: NO KNOWN DRUG ALLERGIES. MEDICATIONS: DuoNebs, Lasix, and Neurontin. REVIEW OF SYSTEMS: Little lethargic, tired. No changes with the eyes or hearing, just old. She has a cough now with sputum. No chest pain. No nausea, vomiting, constipation, or diarrhea. No problems with the skin. PHYSICAL EXAMINATION: VITAL SIGNS: She had 101 temperature, 75 pulse, 18 respiratory rate, 145/86 blood pressure, 94% O2 sat. HEENT: Head is atraumatic AND normocephalic. Well appearing, little uncomfortable. Alert and oriented x3. Extraocular muscles are intact. Pupils equal and reactive to light. Throat is dry. NECK: Supple. HEART: Regular rate. Normal S1, S2. LUNGS: Decreased breath sounds with little bit of congestion, changes with cough. ABDOMEN: Soft, nontender. Positive bowel sounds. EXTREMITIES: No edema. NEUROLOGIC: GCS is 15. Cranial nerves II-XII grossly intact. LABORATORY DATA: She had multiple tests done. She has an 8.9 white count, 11.3 hemoglobin, 37.2 hematocrit with 240 platelets. She has a 2.9 lactate which is high. 141 sodium, potassium 4.5, BUN 35, creatinine 1.9, little up, GFR is 25, sugar is 109, calcium is 8.9, magnesium 2.1, total bili is 0.3, AST is 35, ALT 35, alk phos 93. Lactate dehydrogenase is 789. Troponin I is indeterminate 0.08. BNP is very high at 12,900. She had a chest x-ray which looked like there could be a right pneumonia. ASSESSMENT: She will have consults with Infectious Disease, pulmonary and cardiology. She will be on Zosyn IV her regular medication. She got a dose of vancomycin in the emergency room. She is on Lasix IV, oxygen, physical therapy and hopefully she will improve. Marco Farris DO
[2018-04-10] MEDS: MEROPENEM 500 MG in NS 500 MG/50 ML BAG IVPB SCH ×3 (00:36→21:55)
[2018-04-10 05:41] LABS: ALBUMIN 3.4 g/dL (3.0-4.8); CALCIUM 8.8 mg/dL (8.4-10.5)
[2018-04-10 05:43] LABS: HEMOGLOBIN 10.7 g/dL (12.0-16.0); MEAN CELL VOLUME 83.9 fl (80.0-105.0); MEAN CORPUSCULAR HEMOGLOBIN 24.9 pg (25.0-35.0); MEAN CORPUSCULAR HGB CONC 29.7 g/dl (31.0-37.0); MEAN PLATELET VOLUME 10.1 fl (7.0-11.0); RBC 4.29 10^6/uL (3.5-6.1); RED CELL DISTRIBUTION WIDTH 20.1 % (11.5-14.5); WHITE BLOOD COUNT 9.2 10^3/uL (4.5-11.0)
[2018-04-10] MEDS: Morphine 2 mg/ml ISec IVP PRN (06:29)
[2018-04-10] MEDS: Pantoprazole 40 mg EC Tab PO SCH ×2 (09:10→17:32)
[2018-04-10] MEDS: diltiaZEM 180 mg/24 Hours CD Cap PO SCH (09:12)
--- NOTE | 2018-04-10 10:18 | CT ---
Date of service: 04/10/2018 PROCEDURE: CT Lumbar Spine without contrast HISTORY: Pain COMPARISON: None available. TECHNIQUE: Axial computed tomography images were obtained of the lumbar spine without the use of intravenous contrast. Coronal and sagittal reformatted images were created and reviewed. Radiation dose: Total exam DLP = 609.91 mGy-cm. This CT exam was performed using one or more of the following dose reduction techniques: Automated exposure control, adjustment of the mA and/or kV according to patient size, and/or use of iterative reconstruction technique. FINDINGS: VERTEBRAE: No acute compression fractures no retropulsed fragments. Vertebral bodies exhibit relatively normal stature. There is mild levoscoliosis vertebral bodies and facets otherwise exhibit normal alignment. DISCS/SPINAL CANAL/NEURAL FORAMINA: Mild multilevel degenerative spondylosis. The L5-S1 level, there is mild disc space narrowing more so along the posterior disc margin. Small central and bilateral disc bulge ridge complex does not cause any significant canal stenosis nor compressive effects on the thecal sac or descending S1 nerve roots. Facet joints are hypertrophic right greater than left. Right exit foramen adequate. Left exit foramen is slightly narrowed. At the L4-L5 level, there is minor posterior disc space narrowing and intradiscal calcification. Small broad-based disc bulge extends slightly into the proximal inferior margins of both exit foramina. The disc results in minor flattening of the ventral surface of the thecal sac however overall central canal appears adequate. Facets are hypertrophic. Exit foramina appear adequate. At the L3-L4 level, there is mild posterior disc space narrowing. Small broad-based disc ridge complex extends slightly into the proximal inferior margins of both exit foramina. Appears to be some peripheral calcification of the annulus. Facets are mildly hypertrophic. Central canal appears adequate. The proximal exit foramina are slightly narrowed more so on the right. At the L2-L3 level, the there is disc desiccation with chronic appearing Schmorl's node. No disc herniation or significant disc bulge. Facets are slightly hypertrophic right greater than left. Proximal right exit foramen is slightly narrowed. A left exit foramen is adequate. PARASPINAL SOFT TISSUES: Unremarkable. OTHER FINDINGS: There are sclerotic changes both SI joints right greater than left.. Apparent right nephrectomy. Clinical correlation with surgical history recommended. There are are minor atelectatic changes both posterior sulci. IMPRESSION: No acute fractures. Mild multilevel degenerative spondylosis Apparent right nephrectomy. Clinical correlation with surgical history.
--- NOTE | 2018-04-10 11:15 | CARD ---
APPROVED REPORT Date of service: 04/09/2018 EKG Measurement Heart [id number] <Conclusion> Electronic ventricular pacemaker
--- NOTE | 2018-04-10 13:34 | RAD ---
Date of service: 04/09/2018 HISTORY: Admission COMPARISON: Comparison chest 03/20/2018 FINDINGS: LUNGS: Lung chow appear hyperinflated. Rule out underlying chronic manifestations of COPD. There may be some mild chronic compensated pulmonary venous congestion. Note is made of a vague opacity seen in the right mid to lower lung field; findings could represent atelectasis and/or infiltrate. Tiny right-sided effusion not excluded PLEURA: . as above. No pneumothorax apparent. CARDIOVASCULAR: Heart remains enlarged mild aortic atherosclerotic calcification present. Normal cardiac size. No pulmonary vascular congestion. OSSEOUS STRUCTURES: No significant abnormalities. VISUALIZED UPPER ABDOMEN: Normal. OTHER FINDINGS: None. IMPRESSION: Lung chow appear hyperinflated. Rule out underlying chronic manifestations of COPD. There may be some mild chronic compensated pulmonary venous congestion. Note is made of a vague opacity seen in the right mid to lower lung field; findings could represent atelectasis and/or infiltrate. Tiny right-sided effusion not excluded
--- NOTE | 2018-04-10 17:59 | CON ---
DATE OF CONSULTATION: 04/10/2018 LOCATION: The patient is seen earlier today in the emergency room. CHIEF COMPLAINT: Weakness for several days. HISTORY OF PRESENT ILLNESS: The patient is an 82-year-old female with past medical history significant for atrial fibrillation, hypertension, coronary artery disease, diabetes mellitus, congestive heart failure, chronic obstructive lung disease, renal cell cancer, lung cancer, anemia, anxiety, with a history of nephrectomy and lobectomy, who was admitted through the emergency room with the chief complaint of weakness. In the emergency room, the patient was seen by . The patient had a questionable change in mental status and low-grade fever as well as cough. No abdominal pain, diarrhea or constipation. No bright red blood per rectum. PAST MEDICAL HISTORY: Significant for atrial fibrillation, hypertension, coronary artery disease, diabetes mellitus, congestive heart failure, chronic obstructive lung disease, renal cell cancer, lung cancer, anemia, anxiety. PAST SURGICAL HISTORY: Significant for nephrectomy and lobectomy. MEDICATIONS AT HOME: Neurontin, Lasix, inhaler. ALLERGIES: THE PATIENT HAS NO KNOWN ALLERGIES. PHYSICAL EXAMINATION: VITAL SIGNS: The patient has a temperature of 101 in the emergency room, heart rate of 81, respiratory rate of 27 and it is down to 18 with a blood pressure of 120/80. HEENT: Unremarkable. NECK: Supple. LUNGS: Decreased breath sounds. HEART: Normal S1, S2. ABDOMEN: Soft, nontender. LABORATORY EXAMINATION: White count of 8.9, hemoglobin of 11, platelets of 240,00. Chemistries reveal a BUN of 35 and creatinine is 1.9. The patient has had elevated creatinine in the past, renal disease and procalcitonin 0.1 yesterday with a BNP of over 12,000. Urinalysis is noted. Serology, influenza is negative and urine Legionella is negative. Microbiology is pending. In the past, the patient has had VRE in the urine and ESBL E. coli in the urine. The patient's chest x-ray is reported to be read by Dr. Sandoval. Pulmonary venous congestion crowding is again seen. Atelectasis, maybe infiltrate or maybe an effusion not excluded, read by Dr. Jesus Sandoval. The patient also had a lumbar spine CT, which was also read by Dr. Jesus Sandoval. No fracture was seen. History and physical examination written by Dr. Marco Farris. ASSESSMENT/PLAN: This is an 82-year-old female with a history of chronic obstructive lung disease, diastolic congestive heart failure, diabetes mellitus, atrial fibrillation, renal cell cancer, lung cancer, hypertension and coronary artery disease, admitted with fever of 101 and a respiratory rate of 27. #1 is systemic inflammatory response syndrome, must rule out sepsis, but healthcare-associated pneumonia in a patient with acute diastolic congestive heart failure on top of chronic congestive heart failure with ejection fraction of 68% on the last echo. We will treat the patient with doxy and meropenem pending pancultures and workup results and we will make further recommendations upon the availability of initial results and we will follow closely with you. Jenaro Farias MD
--- NOTE | 2018-04-10 22:33 | CON ---
DATE: 04/10/2018 PULMONARY CONSULTATION We were asked by Dr. Farris, biomaterials engineer to evaluate and treat this 82-year-old female who [facility] with chief complaints of shortness of breath. In emergency room, she was started on supplemental oxygen, nebulizer treatments as well as broad-spectrum antibiotics, meropenem and doxycycline. I evaluated her chest x-ray, which shows good expansion of both lungs, cardiomegaly, and opacity in right mid lung, not looks to me like accumulation of fluid rather than pneumonia. There is no air bronchograms. The patient is complaining of inability to raise thick secretions. HISTORY OF PRESENT ILLNESS: An 82-year-old female with renal insufficiency, congestive heart failure. In addition to shortness of breath, she had altered mental status and productive cough. Denies chest pain, denies hemoptysis. PAST MEDICAL HISTORY: Obtained from review of records from jail. She has a history of chronic obstructive pulmonary disease, history of congestive heart failure, history of dementia, history of renal cancer, and history of type 2 diabetes mellitus. FAMILY HISTORY: Negative for inherited diseases. SOCIAL HISTORY: She never smoked. She does not use illicit drugs. She does not use alcohol. ALLERGIES: NO KNOWN ALLERGIES. HOME MEDICATIONS: Include DuoNeb, furosemide, and gabapentin. REVIEW OF SYSTEMS: Conducted by reviewing all sources. PULMONARY: See history of present illness. CARDIOVASCULAR: History of congestive heart failure, but no current chest pain. GASTROINTESTINAL: No nausea, vomiting, or diarrhea. All other systems negative. PHYSICAL EXAMINATION VITAL SIGNS: Her temperature maximum 101, pulse 81, respirations 18, blood pressure is 140/80, pulse oximetry is 94% on nasal cannula. HEENT: Head is normocephalic, atraumatic. NECK: Supple with no jugular vein distentions. RESPIRATORY: Diminished breath sounds with coarse rhonchi especially on upper airway. GASTROINTESTINAL: Soft, nontender. No organomegaly. : Within normal limits EXTREMITIES: No pedal edema. No cyanosis. SKIN: No acute skin rash. NEUROLOGIC: No focal deficits. LABORATORY DATA: Additional laboratory data reviewed. Her venous blood gas revealed pH of 7.32, PCO2 of 49, and PO2 of 36, which is okay. ASSESSMENT: 1. Acute bronchitis. 2. Rule out right lower lobe pneumonia. 3. Respiratory insufficiency. 4. Renal insufficiency. 5. Congestive heart failure. PLAN: Her BNP was 12,900. Cardiac troponins were negative. She is being started on adequate antibiotics. Her influenza testing is negative so far. We will reevaluate in a.m. Driss Alas MD [facility]
[2018-04-11 06:40] LABS: HEMOGLOBIN 9.8 g/dL (12.0-16.0); MEAN CELL VOLUME 83.3 fl (80.0-105.0); MEAN CORPUSCULAR HEMOGLOBIN 24.8 pg (25.0-35.0); MEAN CORPUSCULAR HGB CONC 29.8 g/dl (31.0-37.0); MEAN PLATELET VOLUME 9.8 fl (7.0-11.0); RBC 3.95 10^6/uL (3.5-6.1); RED CELL DISTRIBUTION WIDTH 19.9 % (11.5-14.5); WHITE BLOOD COUNT 7.1 10^3/uL (4.5-11.0)
[2018-04-11 07:18] LABS: ALB/GLOB RATIO 0.9 (1.1-1.8); ALBUMIN 3.1 g/dL (3.0-4.8); CALCIUM 8.6 mg/dL (8.4-10.5)
--- NOTE | 2018-04-11 08:59 | PN ---
DATE: 04/10/2018 SUBJECTIVE: I saw Sarah this morning. She is resting in bed. She is actually feeling a little bit better than yesterday, which is great. She was very short of breath yesterday. MEDICATIONS: She is on Aricept, Cardizem, Colace, Vibramycin IV, Lasix IV, Lipitor, Lopressor, Merrem IV, morphine for pain, Protonix, Tylenol, vancomycin IV, Xanax, Zosyn IV. They have been adjusted by Infectious Disease. PHYSICAL EXAMINATION: VITAL SIGNS: She has 98.8 temperature, 62 pulse, 122/58 blood pressure, 27 respiratory rate, and 96% O2 sat on oxygen. HEAD: Atraumatic, normocephalic. GENERAL: She is pleasant, comfortable, less distress this morning. HEART: Regular rate. LUNGS: Decreased breath sounds, but clear. She does have pneumonia. ABDOMEN: Soft. EXTREMITIES: No edema and she tells me she is feeling better than yesterday when she came to the emergency room when she was very distressed. LABORATORY DATA: Sodium 143, potassium 4.7, BUN 34, creatinine 2.1, little high. GFR is 23, sugar is 100, calcium is 8.8, total bili is 0.4. AST is 27, ALT is 42, alk phos 85. The BNP dropped from 12,900 to 9000, giving her Lasix IV which I think is helping. White count 9.2, 10.7 hemoglobin, 36 hematocrit with 254 platelets. Urine was clear. Negative for the flu. Chest x-ray report is pending. When I look right-sided pneumonia. Lumbar spine CAT scan showed some arthritis. ASSESSMENT AND PLAN: I ordered some physical therapy for her. I am hoping to get her back to the [facility] once I get her medically stable. I am glad she is starting to feel better and breathing better. As per Pulmonary, Infectious Disease, and Cardiology continue aggressive treatment and care. Marco Farris DO [facility]ITALEugene
[2018-04-11] MEDS: Morphine 2 mg/ml ISec IVP PRN ×3 (09:32→21:35)
[2018-04-11] MEDS: diltiaZEM 180 mg/24 Hours CD Cap PO SCH (09:32)
[2018-04-11] MEDS: Pantoprazole 40 mg EC Tab PO SCH ×2 (09:32→17:16)
[2018-04-11] MEDS: MEROPENEM 500 MG in NS 500 MG/50 ML BAG IVPB SCH ×2 (09:42→21:35)
--- NOTE | 2018-04-11 11:10 | PN ---
DATE: 04/11/2018 SUBJECTIVE: The patient appears very comfortable this morning. She is not short of breath at rest. PHYSICAL EXAMINATION: VITAL SIGNS: Temperature is 97.8, pulse 60, respirations 18/20, blood pressure 126/70. Oxygen saturation on room air - 95%. Oxygen saturation on nasal cannula - 100%. HEENT: Normocephalic, atraumatic. No JVD. CARDIOVASCULAR: Systolic ejection murmur at the lower left sternal border. Positive S3 gallop. LUNGS: Minimal crackles at the bases. Otherwise clear. EXTREMITIES: Minimal edema. No cyanosis, no clubbing. Calves are nontender to palpation. GASTROINTESTINAL: Abdomen is soft, nontender and nondistended. Bowel sounds are positive. SKIN: No acute rash. NEUROLOGIC: Exam limited at the present time. IMPRESSION: 1. Recurrent congestive heart failure. 2. Coronary artery disease. 3. Cardiac arrhythmias. 4. Mild anemia. 5. Renal insufficiency. PLAN: The patient appears very comfortable this morning. She is not short of breath at rest. She does not complain of cough. She does state to feeling much better overall. On physical exam, there is no significant bronchospasm noted. In addition, there is no significant alveolar-arterial gradient. I did review the laboratory data. There is no leukocytosis noted. In addition, the procalcitonin is negative. I also reviewed the chest x-ray. The chest x-ray is most consistent with congestive heart failure, and not pneumonia. I would continue with the antibiotic coverage as per Infectious Disease. Input by Dr. Farias is noted. Temperatures have now resolved. Cardiology evaluation has been ordered. The patient remains on intravenous Lasix. Clinical status of the patient appears significantly improved - compared to the initial presentation. Again, there is no bronchospasm on physical exam, and her temperatures have now fully resolved. Again, I would continue with the treatment for congestive heart failure as per Cardiology. At this point in time, there does not appear to be a new significant pulmonary problem. I will thus follow up on this patient again as requested. I will discuss the above with Dr. Farris. Jake Smith MD [facility] # [id number] MTDD
--- NOTE | 2018-04-11 12:26 | CP.PCM.PCO ---
Physician Communication Note - Physician Communication Note Physician Communication Note: IV antibiotics as per ID, PT eval pending
--- NOTE | 2018-04-11 13:12 | PN ---
DATE: 04/11/2018 SUBJECTIVE: She is resting in bed, a little short of breath, ate her breakfast okay. Maybe a little bit better than when she came in. MEDICATIONS: She is on Aricept, Cardizem, Colace, Vibramycin IV, Lasix 40 IV, Lipitor, Lopressor, Merrem IV, morphine as needed, Protonix, Reglan IV and Xanax. PHYSICAL EXAMINATION: VITAL SIGNS: She has a 97.8 temperature, 60 pulse, 126/70 blood pressure, 20 respiratory rate, 95% O2 sat on room air. HEAD: Atraumatic, normocephalic. HEART: Regular rate. LUNGS: Decreased breath sounds, but clear today than when she came in. ABDOMEN: Soft. EXTREMITIES: No edema. LABORATORY DATA: She has a 142 sodium, potassium 4.7, BUN is better at 38, creatinine is better at 1.9, GFR is 25. Sugar is 98, calcium is 8.6, total bili is 0.4, AST is 47, ALT is 31, alk phos 76, total protein 6.5. White count 7.1, hemoglobin 9.8, hematocrit 32.9, platelets of 228. I guess the for influenza micro was clean right now. ASSESSMENT AND PLAN: Infectious Disease has her on antibiotics for systemic inflammatory response syndrome. She is being seen by Pulmonology and has pulmonary toilet on. I am waiting for Dr. Fonseca, the pediatric cns, to see her diuresing with 40 IV Lasix when I get the okay. I will discharge her back to [facility] from Cardiology and Pulmonary and Infectious Disease. Continue aggressive treatment and care and get physical therapy involved. Marco Farris DO MTDD
--- NOTE | 2018-04-11 13:34 | CP.PCM.PN ---
Subjective - Date & Time of Evaluation Date of Evaluation: 04/11/18 Time of Evaluation: 10:40 - Subjective Subjective: Patient is comfortable in bed, no fevers, no SOB at rest. Objective - Vital Signs/Intake and Output Vital Signs (last 24 hours): Temp Pulse Resp BP Pulse Ox 97.8 F 65 20 126/70 95 04/11/18 05:56 04/11/18 09:32 04/11/18 05:56 04/11/18 09:32 04/11/18 05:56 Intake and Output: 04/11/18 04/11/18 06:59 18:59 Intake Total 270 Balance 270 - Medications Medications: Current Medications Alprazolam (Xanax) 0.25 mg PO TID PRN; Protocol PRN Reason: Anxiety Stop: 04/16/18 20:51 Last Admin: 04/11/18 09:41 Dose: 0.25 mg Atorvastatin Calcium (Lipitor) 20 mg PO DAILY [facility] Last Admin: 04/11/18 09:32 Dose: 20 mg Diltiazem HCl (Cardizem Cd) 180 mg PO DAILY [facility] Last Admin: 04/11/18 09:32 Dose: 180 mg Docusate Sodium (Colace) 100 mg PO DAILY [facility] Last Admin: 04/11/18 09:39 Dose: Not Given Donepezil HCl (Aricept) 10 mg PO HS [facility] Last Admin: 04/10/18 21:55 Dose: 10 mg Furosemide (Lasix) 40 mg IVP DAILY [facility] Last Admin: 04/11/18 09:31 Dose: 40 mg Meropenem/Sodium Chloride (Merrem Iv 500 Mg/Ns 50 Ml) 500 mg in 50 mls @ 100 mls/hr IVPB Q12 [facility]; Protocol Stop: 04/16/18 22:01 Last Admin: 04/11/18 09:42 Dose: 100 mls/hr Doxycycline Hyclate 100 mg/ (Sodium Chloride) 100 mls @ 100 mls/hr IVPB Q12 [facility]; Protocol Last Admin: 04/10/18 21:56 Dose: 100 mls/hr Metoprolol Tartrate (Lopressor) 25 mg PO BID [facility] Last Admin: 04/11/18 09:32 Dose: 25 mg Morphine Sulfate (Morphine) 1 mg IVP Q3H PRN PRN Reason: Pain, moderate (4-7) Last Admin: 04/11/18 09:32 Dose: 1 mg Pantoprazole Sodium (Protonix Ec Tab) 40 mg PO BID [facility] Last Admin: 04/11/18 09:32 Dose: 40 mg - Labs Labs: 04/11/18 06:20 04/11/18 06:20 - Constitutional Appears: Chronically Ill - Head Exam Head Exam: NORMAL INSPECTION - ENT Exam ENT Exam: Mucous Membranes Moist - Neck Exam Neck Exam: absent: Lymphadenopathy, Meningismus - Respiratory Exam Respiratory Exam: Decreased Breath Sounds - Cardiovascular Exam Cardiovascular Exam: +S1, +S2 - GI/Abdominal Exam GI & Abdominal Exam: Soft. absent: Tenderness Assessment and Plan - Assessment and Plan (Free Text) Plan: Assessment systemic inflammatory response syndrome, consider sepsis due to acute bronchitis, R/O right lower lobe HCAP history of asymptomatic bacteriuria with VRE history of left sided HCAP, S/P treatment with antibiotics history of UTI with ESBL E. coli S/P treatment with antibiotics S/P Severe sepsis R/O intra-abdominal infection atrial fibrillation COPD CAD chronic CHF renal cell cancer S/P nephrectomy lung cancer S/P lobectomy anxiety dementia Plan will continue Doxycycline and Merrem day 2 and will follow up final cx results will continue to monitor clinically
--- NOTE | 2018-04-11 21:20 | CON ---
DATE OF CONSULTATION: 04/11/2018 HISTORY: The patient is an elderly woman who was just discharged from the hospital. She comes back complaining of shortness of breath and lethargy. The patient's past medical history is notable for severe COPD with pulmonary hypertension with good LV function. She denies chest pain. Her cardiac evaluation, which was done within the past year, shows no changes. Currently, she is in chronic atrial fibrillation and with a history of a pacemaker, is on anticoagulation. REVIEW OF SYSTEMS: Reviewed in detail. The patient is feeling well. No shortness of breath. No chest pain. No fatigue, dizziness. Lungs without issues. PHYSICAL EXAMINATION: VITAL SIGNS: Blood pressure 126/70. Heart rate is paced in the 70s. NECK: Negative JVD. LUNGS: Without rales. HEART: S1, S2. EXTREMITIES: Without edema. DIAGNOSTIC DATA: EKG shows paced rhythm. LABORATORY DATA: Hemoglobin is 9.8. Chemistries: BUN and creatinine are 38 and 1.9, potassium is 4.7, glucose 127. IMPRESSION: 1. Dyspnea. 2. Chronic obstructive pulmonary disease. 3. No evidence for congestive heart failure. 4. Renal insufficiency. 5. Good LV function. 6. Lethargy. 7. Chronic atrial fibrillation. 8. History of pacemaker placement. PLAN: Given these findings, we will continue the patient on current medications. We will begin physical therapy. Oswald Fonseca MD
[2018-04-12 06:47] VITALS: O2SAT 94
[2018-04-12 07:33] LABS: BASO # 0.04 K/mm3 (0.0-2.0); BASO % 0.4 % (0.0-3.0); EOS # 0.3 (0.0-0.7); EOS % 2.9 % (1.5-5.0); HEMOGLOBIN 10.3 g/dL (12.0-16.0); LYMPH # 1.7 (1.2-3.4); LYMPH % 18.4 % (22.0-35.0); MEAN CELL VOLUME 83.1 fl (80.0-105.0); MEAN CORPUSCULAR HEMOGLOBIN 24.8 pg (25.0-35.0); MEAN CORPUSCULAR HGB CONC 29.9 g/dl (31.0-37.0); MEAN PLATELET VOLUME 10.3 fl (7.0-11.0); MONO # 0.5 (0.1-0.6); MONO % 5.8 % (1.0-6.0); RBC 4.15 10^6/uL (3.5-6.1); RED CELL DISTRIBUTION WIDTH 19.6 % (11.5-14.5); WHITE BLOOD COUNT 9.2 10^3/uL (4.5-11.0)
[2018-04-12 08:15] LABS: ALBUMIN 3.5 g/dL (3.0-4.8); CALCIUM 9.2 mg/dL (8.4-10.5)
[2018-04-12] MEDS: Morphine 2 mg/ml ISec IVP PRN (09:55)
[2018-04-12] MEDS: Pantoprazole 40 mg EC Tab PO SCH ×2 (09:56→17:17)
[2018-04-12] MEDS: diltiaZEM 180 mg/24 Hours CD Cap PO SCH (09:57)
[2018-04-12] MEDS: MEROPENEM 500 MG in NS 500 MG/50 ML BAG IVPB SCH (09:57)
[2018-04-12 13:13] VITALS: RESP 20; TEMP 98.6
--- NOTE | 2018-04-12 13:26 | CP.PCM.PN ---
Subjective - Date & Time of Evaluation Date of Evaluation: 04/12/18 Time of Evaluation: 11:10 - Subjective Subjective: No shortness of breath at rest, no fevers, not in distress, comfortable. Objective - Vital Signs/Intake and Output Vital Signs (last 24 hours): Temp Pulse Resp BP Pulse Ox 98.5 F 76 19 123/63 95 04/11/18 12:00 04/11/18 12:00 04/11/18 12:00 04/11/18 12:00 04/11/18 05:56 Intake and Output: 04/11/18 04/11/18 06:59 18:59 Intake Total 270 Balance 270 - Medications Medications: Current Medications Alprazolam (Xanax) 0.25 mg PO TID PRN; Protocol PRN Reason: Anxiety Stop: 04/16/18 20:51 Last Admin: 04/11/18 09:41 Dose: 0.25 mg Atorvastatin Calcium (Lipitor) 20 mg PO DAILY [facility] Last Admin: 04/11/18 09:32 Dose: 20 mg Diltiazem HCl (Cardizem Cd) 180 mg PO DAILY [facility] Last Admin: 04/11/18 09:32 Dose: 180 mg Docusate Sodium (Colace) 100 mg PO DAILY [facility] Last Admin: 04/11/18 09:39 Dose: Not Given Donepezil HCl (Aricept) 10 mg PO HS [facility] Last Admin: 04/10/18 21:55 Dose: 10 mg Furosemide (Lasix) 40 mg IVP DAILY [facility] Last Admin: 04/11/18 09:31 Dose: 40 mg Meropenem/Sodium Chloride (Merrem Iv 500 Mg/Ns 50 Ml) 500 mg in 50 mls @ 100 mls/hr IVPB Q12 [facility]; Protocol Stop: 04/16/18 22:01 Last Admin: 04/11/18 09:42 Dose: 100 mls/hr Doxycycline Hyclate 100 mg/ (Sodium Chloride) 100 mls @ 100 mls/hr IVPB Q12 [facility]; Protocol Last Admin: 04/11/18 10:20 Dose: 100 mls/hr Metoprolol Tartrate (Lopressor) 25 mg PO BID [facility] Last Admin: 04/11/18 09:32 Dose: 25 mg Morphine Sulfate (Morphine) 1 mg IVP Q3H PRN PRN Reason: Pain, moderate (4-7) Last Admin: 04/11/18 09:32 Dose: 1 mg Pantoprazole Sodium (Protonix Ec Tab) 40 mg PO BID [facility] Last Admin: 04/11/18 09:32 Dose: 40 mg - Labs Labs: 04/11/18 06:20 04/11/18 06:20 - Constitutional Appears: Non-toxic, No Acute Distress, Chronically Ill - Head Exam Head Exam: NORMAL INSPECTION - Respiratory Exam Respiratory Exam: Decreased Breath Sounds - Cardiovascular Exam Cardiovascular Exam: +S1, +S2 - GI/Abdominal Exam GI & Abdominal Exam: Soft. absent: Tenderness Assessment and Plan - Assessment and Plan (Free Text) Plan: Assessment systemic inflammatory response syndrome, consider sepsis due to acute bronchitis, R/O right lower lobe HCAP history of asymptomatic bacteriuria with VRE history of left sided HCAP, S/P treatment with antibiotics history of UTI with ESBL E. coli S/P treatment with antibiotics S/P Severe sepsis R/O intra-abdominal infection atrial fibrillation COPD CAD chronic CHF renal cell cancer S/P nephrectomy lung cancer S/P lobectomy anxiety dementia Plan will continue Doxycycline and Merrem day 3 for 4-7 days; cultures have been negative (urine cx showing <10k gram positive organisms is probably contamination) will continue to monitor clinically while the patient is in the hospital
--- NOTE | 2018-04-12 14:37 | PN ---
DATE: 04/12/2018 SUBJECTIVE: She was nauseous most of the night, I started her on some Zofran 4 mg. She is currently on Aricept, Cardizem, Colace, Vibramycin IV, Lasix IV, Lipitor, Lopressor, Merrem IV, morphine as needed, Protonix, Reglan IV, Xanax and Zofran. PHYSICAL EXAMINATION VITAL SIGNS: She has 98.1 temperature, 79 pulse, 138/65 blood pressure, 18 respiratory rate, 94% O2 sat on 2 liters. GENERAL: She is not hungry this morning. She did not sleep well last night. She is this morning. HEENT: Head atraumatic and normocephalic. HEART: Regular rate. LUNGS: Decreased breath sounds. ABDOMEN: Soft, little queasy. Positive bowel sounds, but distant. EXTREMITIES: No edema. LABORATORY DATA: She has a 9.2 white count, 10.3 hemoglobin, 34.5 hematocrit with 262 platelets. Lactate down from 2.9 to 0.9, which is better. Sodium 142, potassium 4.3, BUN is 38, creatinine 1.9. GFR is 25, sugar is 106. Calcium is 9.2, magnesium 1.8, total bilirubin is 0.5. AST is 41, ALT is 30, alkaline phosphatase 94, and total protein 7.2. ASSESSMENT AND PLAN: She had multiple issues while she was here in the hospital; right pneumonia, congestive heart failure, systemic inflammatory response syndrome. We will continue aggressive treatment and care as per Infectious Disease. Get physical therapy, out of bed to chair, Zofran. Marco Farris DO MTDD
[2018-04-12 17:25] VITALS: BP 129/74
[2018-04-12 19:25] VITALS: PULSE 63
== END 2018-04-12 18:44 | DRG 291 ==
LOC: ED 17:14 → ERH 20:03 → 2RSO 04-10 17:42
PROVIDERS: ADMIT Family Medicine; ATTEND Family Medicine
DX: I13.0 Hypertensive heart and chronic kidney disease with heart failure and stage 1 through stage 4 chronic kidney disease, or unspecified chronic kidney disease (principal); I50.33 Acute on chronic diastolic (congestive) heart failure; J44.0 Chronic obstructive pulmonary disease with (acute) lower respiratory infection; R65.10 Systemic inflammatory response syndrome (SIRS) of non-infectious origin without acute organ dysfunction; N18.9 Chronic kidney disease, unspecified; E11.22 Type 2 diabetes mellitus with diabetic chronic kidney disease; Z90.5 Acquired absence of kidney; Z85.528 Personal history of other malignant neoplasm of kidney; Z85.118 Personal history of other malignant neoplasm of bronchus and lung; I48.91 Unspecified atrial fibrillation; I25.10 Atherosclerotic heart disease of native coronary artery without angina pectoris; D64.9 Anemia, unspecified; F41.9 Anxiety disorder, unspecified; J20.9 Acute bronchitis, unspecified; F03.90 Unspecified dementia, unspecified severity, without behavioral disturbance, psychotic disturbance, mood disturbance, and anxiety; K21.9 Gastro-esophageal reflux disease without esophagitis; Z87.01 Personal history of pneumonia (recurrent); I27.20 Pulmonary hypertension, unspecified; I48.2 Chronic atrial fibrillation; Z79.01 Long term (current) use of anticoagulants; Z87.440 Personal history of urinary (tract) infections; Z90.2 Acquired absence of lung [part of]; Z95.0 Presence of cardiac pacemaker

== ENCOUNTER 2018-07-04 10:53 | Inpatient (IN) | payer MEDICARE ==
[2018-07-04 10:54] VITALS: PULSE 45; BMI 20.7
--- NOTE | 2018-07-04 11:26 | ED PDOC ---
Arrival/HPI - General Chief Complaint: Lower Extremity Problem/Injury Time Seen by Provider: 07/04/18 11:01 Historian: Patient - History of Present Illness Narrative History of Present Illness (Text): 07/04/18 11:17 82 year old F with pmh of hypertension, CHF, anxiety, and anemia presents complaining of shortness of breath with b/l leg pain. Patient reports being seen for similar symptoms. She denies any trauma or fever. Patient denies any headache, dizziness, chest pain, cough, abdominal pain, nausea, vomiting, diarrhea, back pain, neck pain, or any other complaint. PMD: Dr. Farris Time/Duration: Prior to Arrival Symptom Onset: Sudden Symptom Course: Unchanged Activities at Onset: Light Context: Home Past Medical History - Provider Review Nursing Documentation Reviewed: Yes - Infectious Disease Hx of Infectious Diseases: None - Tetanus Immunization Tetanus Immunization: >10 years Ago - Cardiac Hx Cardiac Disorders: Yes (pacemaker) Hx Congestive Heart Failure: Yes Hx Hypertension: Yes - Pulmonary Hx Chronic Obstructive Pulmonary Disease (COPD): Yes - Neurological Hx Neurological Disorder: Yes Hx Dementia: Yes - HEENT Hx HEENT Disorder: Yes - Renal Hx Renal Disorder: Yes Hx Renal Cancer: Yes - Endocrine/Metabolic Hx Endocrine Disorders: No - Hematological/Oncological Hx Blood Disorders: Yes Hx Anemia: Yes Hx Cancer: Yes - Integumentary Hx Dermatological Disorder: Yes - Musculoskeletal/Rheumatological Hx Arthritis: Yes - Gastrointestinal Hx Gastrointestinal Disorders: Yes Hx Gastroesophageal Reflux: Yes - Genitourinary/Gynecological Hx Genitourinary Disorders: Yes (ESBL IN THE URINE H/O) - Psychiatric Hx Psychophysiologic Disorder: Yes Hx Anxiety: Yes Hx Substance Use: No - Surgical History Other/Comment: lobectomy/nephrectomy - Anesthesia Hx Anesthesia: Yes Hx Anesthesia Reactions: No Hx Malignant Hyperthermia: No Family/Social History - Physician Review Nursing Documentation Reviewed: Yes Family/Social History: Unknown Family HX Smoking Status: Former Smoker Hx Alcohol Use: No Hx Substance Use: No Allergies/Home Meds Allergies/Adverse Reactions: Allergies No Known Allergies Allergy (Verified 07/04/18 15:34) Home Medications: Home Meds Medication Instructions Recorded Confirmed Albuterol/Ipratropium [Duoneb 3 3 ml IH Q4 04/09/18 07/04/18 mg/0.5 mg (3 ml) UD] Review of Systems - Physician Review All systems were reviewed & negative as marked: Yes - Review of Systems Constitutional: absent: Fatigue, Fevers ENT: absent: Sore Throat, Rhinorrhea Respiratory: SOB. absent: Cough, Wheezing Cardiovascular: absent: Chest Pain, Syncope Gastrointestinal: absent: Abdominal Pain, Diarrhea, Nausea, Vomiting Genitourinary Female: absent: Dysuria Musculoskeletal: absent: Arthralgias Skin: absent: Rash, Cellulitis Neurological: absent: Headache, Dizziness Physical Exam Vital Signs Reviewed: Yes Vital Signs Temp Pulse Resp BP Pulse Ox 07/04/18 11:01 98.6 F 75 18 115/55 L 97 Temperature: Afebrile Blood Pressure: Hypotensive Pulse: Regular Respiratory Rate: Normal Appearance: Positive for: Well-Appearing, Non-Toxic, Comfortable Pain Distress: Mild Mental Status: Positive for: Alert and Oriented X 3 - Systems Exam Head: Present: Atraumatic, Normocephalic Pupils: Present: PERRL Extroacular Muscles: Present: EOMI Conjunctiva: Present: Normal Mouth: Present: Moist Mucous Membranes Neck: Present: Normal Range of Motion Respiratory/Chest: Present: Rales (mild at bases). No: Respiratory Distress, Accessory Muscle Use Cardiovascular: Present: Regular Rate and Rhythm, Normal S1, S2. No: Murmurs Abdomen: No: Tenderness, Distention, Peritoneal Signs Rectal: Present: Other (Brown stool, guaiac negative) Back: Present: Normal Inspection Upper Extremity: Present: Normal Inspection. No: Cyanosis, Edema Lower Extremity: Present: Other (feet are warm). No: Edema, NORMAL PULSES (decreased pulses b/l) Neurological: Present: GCS=15, CN II-XII Intact, Speech Normal Skin: Present: Warm, Dry, Normal Color. No: Rashes Psychiatric: Present: Alert, Oriented x 3, Normal Insight, Normal Concentration Medical Decision Making ED Course and Treatment: 07/04/18 11:28 Impression: 82 year old F presents complaining of shortness of breath with b/l leg pain. Patient reports being seen for similar symptoms. She denies any trauma or fever Plan: -- Labs -- EKG -- Chest X-ray -- Urinalysis -- Duplex US Lower Extremity -- Reassess and disposition Prior Visits: Notes and results from previous visits were reviewed. Patient was last seen in the emergency department on Progress Notes: EKG: Pace rhythm at 75 BPM 07/04/18 13:19 Chest X-ray -- No active disease 07/04/18 14:10 Extremity Ultrasound -- No sonographic evidence for deep venous thrombosis in the visualized segments of both lower extremities 07/04/18 17:04 chroinc leg pain feet warm mildly diminished pulse palpable ? claudiaction no e/o of acute occulsion based upon exam. dvt study neg. labs noted anemia guiac neg brown stool. accepted hubert nicole ordered for transfuion. - RAD Interpretation Radiology Orders: 07/04/18 11:11 CHEST PORTABLE [RAD] Stat DUPLEX LOWER EXTRM VEIN BILAT [US] Stat - Scribe Statement The provider has reviewed the documentation as recorded by the Main Guy All medical record entries made by the Luliibnoemi were at my direction and personally dictated by me. I have reviewed the chart and agree that the record accurately reflects my personal performance of the history, physical exam, medical decision making, and the department course for this patient. I have also personally directed, reviewed, and agree with the discharge instructions and disposition. Disposition/Present on Arrival - Present on Arrival Any Indicators Present on Arrival: No History of DVT/PE: No History of Uncontrolled Diabetes: No Urinary Catheter: No History of Decub. Ulcer: No History Surgical Site Infection Following: None - Disposition Have Diagnosis and Disposition been Completed?: Yes Diagnosis: CHF (congestive heart failure), Anemia Disposition: HOSPITALIZED Disposition Time: 15:00 Condition: STABLE
[2018-07-04 11:41] LABS: BASO # 0.02 K/mm3 (0.0-2.0); BASO % 0.3 % (0.0-3.0); EOS # 0.1 (0.0-0.7); EOS % 1.6 % (1.5-5.0); LYMPH # 1.1 (1.2-3.4); LYMPH % 16.8 % (22.0-35.0); MEAN CELL VOLUME 71.5 fl (80.0-105.0); MEAN CORPUSCULAR HEMOGLOBIN 20.4 pg (25.0-35.0); MEAN CORPUSCULAR HGB CONC 28.5 g/dl (31.0-37.0); MEAN PLATELET VOLUME 9.7 fl (7.0-11.0); MONO # 0.5 (0.1-0.6); MONO % 7.1 % (1.0-6.0); RBC 2.7 10^6/uL (3.5-6.1); RED CELL DISTRIBUTION WIDTH 20.8 % (11.5-14.5); WHITE BLOOD COUNT 6.8 10^3/uL (4.5-11.0)
[2018-07-04 11:51] LABS: INR 1.45; PARTIAL THROMBOPLASTIN TIME 26.5 Seconds (26.9-38.3); PROTHROMBIN TIME 16.4 SECONDS (9.4-12.5)
[2018-07-04 11:52] LABS: HEMOGLOBIN 5.5 g/dL (12.0-16.0)
[2018-07-04 11:53] LABS: ALBUMIN 3.7 g/dL (3.0-4.8); CALCIUM 9.1 mg/dL (8.4-10.5)
[2018-07-04 12:07] LABS: TROPONIN I 0.04 ng/mL
[2018-07-04 12:40] LABS: URINE BILIRUBIN NEGATIVE (NEGATIVE); URINE BLOOD NEGATIVE (NEGATIVE); URINE GLUCOSE (UA) NEGATIVE (NEGATIVE); URINE LEUKOCYTE ESTERASE SMALL Leu/uL (NEGATIVE); URINE PROTEIN 30 mg/dL (<30 mg/dL)
[2018-07-04 12:42] LABS: URINE APPEARANCE CLEAR (CLEAR); URINE COLOR YELLOW (YELLOW)
[2018-07-04 12:47] LABS: URINE BACTERIA MANY /hpf; URINE RBC 0 - 2 /hpf (0-2)
[2018-07-04 12:48] LABS: URINE AMORPHOUS SEDIMENT FEW /hpf
--- NOTE | 2018-07-04 12:53 | RAD ---
Date of service: 07/04/2018 HISTORY: sob COMPARISON: 04/09/2018 TECHNIQUE: 1 view obtained. FINDINGS: LUNGS: No active pulmonary disease. PLEURA: No significant pleural effusion identified, no pneumothorax apparent. CARDIOVASCULAR: No aortic atherosclerotic calcification present. Moderate cardiomegaly. No pulmonary vascular congestion. OSSEOUS STRUCTURES: No significant abnormalities. VISUALIZED UPPER ABDOMEN: Normal. OTHER FINDINGS: Single lead pacemaker IMPRESSION: No active disease.
--- NOTE | 2018-07-04 16:44 | CP.PCM.CON ---
<Roger Corbin - Last Filed: 07/04/18 16:40> History of Present Illness - History of Present Illness History of Present Illness: PGY6 GI Fellow Consult Note Patient is an 82yo female with PMHx significant for Atrial fibrillation (on apixaban), CAD, CHF, HTN, DM, COPD,renal malignancy s/p right nephrectomy, lung cancer, PUD, duodenal and colonicAVMsandanxiety who presented to the ED with leg pain. For the last four days, patient has noted gradually worsening upper thigh discomfort. Symptoms worsened with ambulation. She also notes significant fatigue and shortness of breath, worsening over the same time frame. On arrival to the ED, routine blood work revealed profound anemia with HGB 5.5. Patient denies any overt bleeding prior to arrival, including hematochezia, melena, hematemesis, hematuria, epistaxis. Denies any recent NSAID use. Patient has had multiple admissions with similar findings previously and most recent endoscopic evaluation was performed in March. 12 point ROS negative other than stated above PMHx: See HPI PSHx: Right nephrectomy, ? lung lobectomy though not noted on prior imaging FHx: Discussed with patient and she denies significant family history Social: Former smoker quit 25 years ago; denies EtOH or illicit drug use Endo: See above Past Patient History - Infectious Disease Hx of Infectious Diseases: None - Tetanus Immunizations Tetanus Immunization: >10 years Ago - Past Medical History & Family History Past Medical History?: Yes - Past Social History Smoking Status: Former Smoker - CARDIAC Hx Cardiac Disorders: Yes (pacemaker) Hx Congestive Heart Failure: Yes Hx Hypertension: Yes - PULMONARY Hx Chronic Obstructive Pulmonary Disease (COPD): Yes - NEUROLOGICAL Hx Neurological Disorder: Yes Hx Dementia: Yes - HEENT Hx HEENT Problems: Yes - RENAL Hx Chronic Kidney Disease: Yes Hx Renal (Kidney) Cancer: Yes - ENDOCRINE/METABOLIC Hx Endocrine Disorders: No - HEMATOLOGICAL/ONCOLOGICAL Hx Blood Disorders: Yes Hx Anemia: Yes Hx Cancer: Yes - INTEGUMENTARY Hx Dermatological Problems: Yes - MUSCULOSKELETAL/RHEUMATOLOGICAL Hx Arthritis: Yes - GASTROINTESTINAL Hx Gastrointestinal Disorders: Yes Hx Gastroesophageal Reflux: Yes - GENITOURINARY/GYNECOLOGICAL Hx Genitourinary Disorders: Yes (ESBL IN THE URINE H/O) - PSYCHIATRIC Hx Psychophysiologic Disorder: Yes Hx Anxiety: Yes Hx Substance Use: No - SURGICAL HISTORY Other/Comment: lobectomy/nephrectomy - ANESTHESIA Hx Anesthesia: Yes Hx Anesthesia Reactions: No Hx Malignant Hyperthermia: No Meds Allergies/Adverse Reactions: Allergies Allergy/AdvReac Type Severity Reaction Status Date / Time No Known Allergies Allergy Verified 07/04/18 15:34 Physical Exam - Constitutional Appears: Non-toxic, No Acute Distress - Eye Exam Eye Exam: EOMI, PERRL - ENT Exam ENT Exam: Mucous Membranes Moist - Respiratory Exam Respiratory Exam: Clear to Auscultation Bilateral. absent: Rales, Rhonchi, Wheezes - Cardiovascular Exam Cardiovascular Exam: RRR, +S1, +S2 - GI/Abdominal Exam GI & Abdominal Exam: Normal Bowel Sounds, Soft. absent: Distended, Firm, Guarding, Mass, Organomegaly, Rebound, Tenderness - Rectal Exam Rectal Exam: absent: Black Stool, Bloody Stool, Hemorrhoids Additional comments: formed light brown stool - Extremities Exam Extremities exam: Positive for: normal inspection. Negative for: calf tenderness, joint swelling, pedal edema, tenderness - Neurological Exam Neurological exam: Alert, Oriented x3 - Psychiatric Exam Psychiatric exam: Normal Affect, Normal Mood - Skin Skin Exam: Dry, Warm Results - Vital Signs Recent Vital Signs: Last Vital Signs Temp 98.1 F 07/04/18 15:24 Pulse 66 07/04/18 15:24 Resp 18 07/04/18 15:24 BP 124/52 L 07/04/18 15:24 Pulse Ox 99 07/04/18 15:06 - Labs Result Diagrams: 07/04/18 11:30 07/04/18 11:30 Labs: Laboratory Results - last 24 hr 07/04/18 07/04/18 07/04/18 11:30 11:30 11:30 WBC 6.8 D RBC 2.70 L Hgb 5.5 L* D Hct 19.3 L* MCV 71.5 L D MCH 20.4 L MCHC 28.5 L RDW 20.8 H Plt Count 312 MPV 9.7 Neut % (Auto) 74.2 H Lymph % (Auto) 16.8 L Glades % (Auto) 7.1 H Eos % (Auto) 1.6 Baso % (Auto) 0.3 Lymph # (Auto) 1.1 L Glades # (Auto) 0.5 Eos # (Auto) 0.1 Baso # (Auto) 0.02 Absolute Neuts (auto) 5.02 PT 16.4 H INR 1.45 APTT 26.5 L Sodium 144 Potassium 4.6 Chloride 114 H Carbon Dioxide 22 Anion Gap 13 BUN 44 H Creatinine 1.8 H Est GFR ( Amer) 33 Est GFR (Non-Af Amer) 27 Random Glucose 100 Calcium 9.1 Magnesium 2.6 H Total Bilirubin 0.6 AST 24 ALT 15 Alkaline Phosphatase 82 Lactate Dehydrogenase 573 Total Creatine Kinase 44 Troponin I 0.04 D NT-Pro-B Natriuret Pep 4190 H Total Protein 7.5 Albumin 3.7 Globulin 3.8 Albumin/Globulin Ratio 1.0 L Urine Color Urine Appearance Urine pH Ur Specific Mesa Urine Protein Urine Glucose (UA) Urine Ketones Urine Blood Urine Nitrate Urine Bilirubin Urine Urobilinogen Ur Leukocyte Esterase Urine RBC Urine WBC Ur Epithelial Cells Amorphous Sediment Urine Bacteria Urine Other Blood Type Antibody Screen Crossmatch BBK History Checked 07/04/18 07/04/18 12:20 13:28 WBC RBC Hgb Hct MCV MCH MCHC RDW Plt Count MPV Neut % (Auto) Lymph % (Auto) Glades % (Auto) Eos % (Auto) Baso % (Auto) Lymph # (Auto) Glades # (Auto) Eos # (Auto) Baso # (Auto) Absolute Neuts (auto) PT INR APTT Sodium Potassium Chloride Carbon Dioxide Anion Gap BUN Creatinine Est GFR ( Amer) Est GFR (Non-Af Amer) Random Glucose Calcium Magnesium Total Bilirubin AST ALT Alkaline Phosphatase Lactate Dehydrogenase Total Creatine Kinase Troponin I NT-Pro-B Natriuret Pep Total Protein Albumin Globulin Albumin/Globulin Ratio Urine Color Yellow Urine Appearance Clear Urine pH 6.0 Ur Specific Mesa 1.010 Urine Protein 30 H Urine Glucose (UA) Negative Urine Ketones Negative Urine Blood Negative Urine Nitrate Negative Urine Bilirubin Negative Urine Urobilinogen 1.0 H Ur Leukocyte Esterase Small H Urine RBC 0 - 2 Urine WBC 10 - 15 H Ur Epithelial Cells 6 - 8 H Amorphous Sediment Few Urine Bacteria Many Urine Other Fiber Blood Type AB POSITIVE Antibody Screen Negative Crossmatch See Detail BBK History Checked Patient has bt Assessment & Plan - Assessment and Plan (Free Text) Assessment: Patient is an 82yo female with PMHx significant for Atrial fibrillation (on apixaban), CAD, CHF, HTN, DM, COPD,renal malignancy s/p right nephrectomy, lung cancer, PUD, duodenal and colonicAVMsandanxiety who presented to the ED with leg pain -B/L LE pain -Chronic microcytic anemia Plan: -LE U/S reviewed -No overt blood loss noted prior to arrival or during admission thus far; rectal exam unremarkable -Chronic anemia noted - encourage supportive care with transfusion support as needed -Liquid diet tonight, reevaluate in AM -No plan for endoscopic intervention at this time - prior EGD/Colon from March reviewed -Consider hematology evaluation - Date & Time Date: 07/04/18 Time: 13:30 <Jt Quintana - Last Filed: 07/04/18 16:50> Results - Vital Signs Recent Vital Signs: Last Vital Signs Temp 98.1 F 07/04/18 15:24 Pulse 66 07/04/18 15:24 Resp 18 07/04/18 15:24 BP 124/52 L 07/04/18 15:24 Pulse Ox 99 07/04/18 15:06 - Labs Result Diagrams: 07/04/18 11:30 07/04/18 11:30 Labs: Laboratory Results - last 24 hr 07/04/18 07/04/18 07/04/18 11:30 11:30 11:30 WBC 6.8 D RBC 2.70 L Hgb 5.5 L* D Hct 19.3 L* MCV 71.5 L D MCH 20.4 L MCHC 28.5 L RDW 20.8 H Plt Count 312 MPV 9.7 Neut % (Auto) 74.2 H Lymph % (Auto) 16.8 L Glades % (Auto) 7.1 H Eos % (Auto) 1.6 Baso % (Auto) 0.3 Lymph # (Auto) 1.1 L Glades # (Auto) 0.5 Eos # (Auto) 0.1 Baso # (Auto) 0.02 Absolute Neuts (auto) 5.02 PT 16.4 H INR 1.45 APTT 26.5 L Sodium 144 Potassium 4.6 Chloride 114 H Carbon Dioxide 22 Anion Gap 13 BUN 44 H Creatinine 1.8 H Est GFR ( Amer) 33 Est GFR (Non-Af Amer) 27 Random Glucose 100 Calcium 9.1 Magnesium 2.6 H Total Bilirubin 0.6 AST 24 ALT 15 Alkaline Phosphatase 82 Lactate Dehydrogenase 573 Total Creatine Kinase 44 Troponin I 0.04 D NT-Pro-B Natriuret Pep 4190 H Total Protein 7.5 Albumin 3.7 Globulin 3.8 Albumin/Globulin Ratio 1.0 L Urine Color Urine Appearance Urine pH Ur Specific Mesa Urine Protein Urine Glucose (UA) Urine Ketones Urine Blood Urine Nitrate Urine Bilirubin Urine Urobilinogen Ur Leukocyte Esterase Urine RBC Urine WBC Ur Epithelial Cells Amorphous Sediment Urine Bacteria Urine Other Blood Type Antibody Screen Crossmatch BBK History Checked 07/04/18 07/04/18 12:20 13:28 WBC RBC Hgb Hct MCV MCH MCHC RDW Plt Count MPV Neut % (Auto) Lymph % (Auto) Glades % (Auto) Eos % (Auto) Baso % (Auto) Lymph # (Auto) Glades # (Auto) Eos # (Auto) Baso # (Auto) Absolute Neuts (auto) PT INR APTT Sodium Potassium Chloride Carbon Dioxide Anion Gap BUN Creatinine Est GFR ( Amer) Est GFR (Non-Af Amer) Random Glucose Calcium Magnesium Total Bilirubin AST ALT Alkaline Phosphatase Lactate Dehydrogenase Total Creatine Kinase Troponin I NT-Pro-B Natriuret Pep Total Protein Albumin Globulin Albumin/Globulin Ratio Urine Color Yellow Urine Appearance Clear Urine pH 6.0 Ur Specific [place] 1.010 Urine Protein 30 H Urine Glucose (UA) Negative Urine Ketones Negative Urine Blood Negative Urine Nitrate Negative Urine Bilirubin Negative Urine Urobilinogen 1.0 H Ur Leukocyte Esterase Small H Urine RBC 0 - 2 Urine WBC 10 - 15 H Ur Epithelial Cells 6 - 8 H Amorphous Sediment Few Urine Bacteria Many Urine Other Fiber Blood Type AB POSITIVE Antibody Screen Negative Crossmatch See Detail BBK History Checked Patient has bt Attending/Attestation - Attestation I have fully participated in the care of the patient.: Yes I have reviewed all pertinent clinical information: Yes Notes (Text): 07/04/18 16:47 Atrial fibrillation on eliquis CAD CHF DM/HTN COPD History of renal and lung cancer Lower extremity pain Anemia - Liquid diet as tolerated - Etiology for anemia likely multifactorial, no clinical evidence of overt bleeding noted - rectal exam performed today shows soft brown stool without presence of blood in rectal vault - Patient to receive 2 units PRBC, continue to monitor H/H - Consider hematology evaluation - Will continue to monitor patient clinical course
[2018-07-04] MEDS ORDERED: Albuterol-Ipratrop 3 mg / 0.5 (3 ml) UD IH PRN (17:45)
[2018-07-04] MEDS ORDERED: Pneumococcal 23-Valent Vaccine IM ONE (20:19)
--- NOTE | 2018-07-05 01:10 | HP ---
DATE OF EXAM: 07/04/2018 HISTORY OF PRESENT ILLNESS: I have been doing house calls on Sarah for a while now, a couple of years. She is an 82-year-old female who comes to emergency room with shortness of breath, leg pain as before possible GI bleed. She has been told on numerous occasions that she is going to take Tylenol, but somehow she hides her medicines, gets in touch with Naprosyn, Advil, tramadol which I have been trying for a while every time I do a house call and I believe this time it was tramadol that she had stashed somewhere from last year. She has a pacemaker, CHF history, hypertension, COPD, dementia, kidney cancer history, anemia, cancer, arthritis, gastroesophageal reflux, history of ESBL in the urine, anxiety, lobectomy, nephrectomy history. FAMILY HISTORY: Unknown. SOCIAL HISTORY: Former smoker, no alcohol, no drugs. ALLERGIES: SHE HAS NO KNOWN DRUG ALLERGIES. MEDICATIONS: She is currently taking Aricept, Colace, Lasix, Lipitor, Protonix, Cardizem, DuoNeb, Lopressor, Xanax, and Zofran. REVIEW OF SYSTEMS: She is resting in bed with IV transfusions being done. She is a little bit fatigued, little bit tired. No sore throat. Little bit short of breath. No cough. No wheezing. No chest pain. No syncope. No palpitations. No abdominal pain. No nausea, vomiting, constipation, or diarrhea. No problems urinating. No arthralgias. No cellulitis or rashes that she knows of. No headache or dizziness. She is quite pleasant despite being quite anemic. PHYSICAL EXAMINATION: GENERAL: She is well appearing, nontoxic, comfortable, smiling, alert and oriented x1 to herself, but she is pleasant. If we reorient her, she gets back. VITAL SIGNS: She has 98.6 temperature, 75 pulse, 18 respiratory rate, 150/55 blood pressure, 97% O2 sat on room air. HEENT: Atraumatic and normocephalic. Extraocular muscles are intact. Pupils equal and reactive to light. Throat is dry. NECK: Supple. Thyroid midline. No palpable appreciable lymphadenopathy. Good range of motion. LUNGS: She had some rales at the base in the emergency room. I did not hear any now on the bedside. There is clear auscultation, poor inspiration. HEART: Regular rate. Normal S1, S2. ABDOMEN: Soft, nontender. Positive bowel sounds. No guarding. No rebound. No CVA tenderness. Guaiac stool in ER was negative. EXTREMITIES: No edema. NEUROLOGIC: GCS is 15. Cranial nerves II-XII grossly intact. Speech is normal. She is pleasant. She is funny. She is alert and oriented x3. SKIN: Warm and dry. No apparent ashes or ulcers. I am seeing her with two family members. They showed me a bottle of tramadol which is dated back on 18 which was not supposed to be taking anymore from the last time she came in with GI bleed but somehow, she stashes them and hided them. EKG showed paced rhythm at 75. Chest x-ray, no active disease. Extremity ultrasound, no evidence of DVT. On the blood test; she has 144 sodium, potassium 4.6, BUN 44, creatinine 1.8. She is getting her blood transfused. Sugar is 100. Calcium 9.1. Magnesium 2.6. Total bili is 0.6. AST 24, ALT 15, alk phosphatase 82. Lactate dehydrogenase is 573. Troponin I is 0.04. BNP was a little high at 4190. I will put her on some Lasix IV. Total protein 7.5. Urine with actually with many bacteria, small leukocytes, 1.49 INR. White count 6.8, hemoglobin is 5.5, hematocrit 19.3, and platelets of 312. GI bleed, tried her on tramadol. The stool guaiac was negative so far. PLAN: GI will see here. Cardiology will see her, put her back on diltiazem, DuoNeb, Lasix IV, Lopressor, Protonix IV, Xanax, and Zofran. We will check her labs tomorrow. Hopefully, she will maintain her hemoglobin level. I have ordered physical therapy for her, she gets weak when this happens, she might need TCU or will see what they recommend. She is being admitted for acute GI bleed. Marco Farris DO [facility] # [id number] [place]
[2018-07-05 07:21] LABS: MEAN CELL VOLUME 75.6 fl (80.0-105.0); MEAN CORPUSCULAR HEMOGLOBIN 22.9 pg (25.0-35.0); MEAN CORPUSCULAR HGB CONC 30.3 g/dl (31.0-37.0); RBC 4.1 10^6/uL (3.5-6.1); RED CELL DISTRIBUTION WIDTH 20.1 % (11.5-14.5); WHITE BLOOD COUNT 7.3 10^3/uL (4.5-11.0)
[2018-07-05 07:23] LABS: HEMOGLOBIN 9.4 g/dL (12.0-16.0)
[2018-07-05 07:42] LABS: ALBUMIN 3.7 g/dL (3.0-4.8)
[2018-07-05] MEDS: diltiaZEM 180 mg/24 Hours CD Cap PO SCH (09:06)
--- NOTE | 2018-07-05 09:31 | CARD ---
APPROVED REPORT Date of service: 07/04/2018 EKG Measurement Heart [id number] <Conclusion> Electronic ventricular pacemaker
--- NOTE | 2018-07-05 11:04 | CP.PCM.PN ---
<Roger Corbin - Last Filed: 07/05/18 11:00> Subjective - Date & Time of Evaluation Date of Evaluation: 07/05/18 Time of Evaluation: 08:15 - Subjective Subjective: PGY6 GI Fellow Progress Note Patient seen and examined bedside this morning. The patient states she is feeling better overall but does note ongoing dyspnea. Less fatigued today. Ambulating to bathroom with assistance. Passed stool this AM. No evidence of hematochezia, melena. 12 system ROS performed and negative except where stated Objective - Vital Signs/Intake and Output Vital Signs (last 24 hours): Temp Pulse Resp BP Pulse Ox 98.1 F 71 20 116/63 100 07/05/18 06:00 07/05/18 10:30 07/05/18 09:13 07/05/18 09:13 07/05/18 09:13 Intake and Output: 07/05/18 07/05/18 06:59 18:59 Intake Total 660 Output Total 800 Balance -140 - Medications Medications: Current Medications Acetaminophen (Tylenol 325mg Tab) 650 mg PO Q4H PRN PRN Reason: Pain, moderate (4-7) Last Admin: 07/05/18 09:08 Dose: 650 mg Albuterol/Ipratropium (Duoneb 3 Mg/0.5 Mg (3 Ml) Ud) 3 ml IH Q6 PRN PRN Reason: Shortness of Breath Last Admin: 07/05/18 10:32 Dose: 3 ml Alprazolam (Xanax) 0.25 mg PO TID PRN; Protocol PRN Reason: Anxiety Stop: 07/12/18 09:54 Last Admin: 07/05/18 10:15 Dose: 0.25 mg Diltiazem HCl (Cardizem Cd) 180 mg PO DAILY [facility] Last Admin: 07/05/18 09:06 Dose: 180 mg Furosemide (Lasix) 20 mg IVP DAILY [facility] Last Admin: 07/05/18 09:07 Dose: 20 mg Metoprolol Tartrate (Lopressor) 25 mg PO BID [facility] Last Admin: 07/05/18 09:07 Dose: 25 mg Ondansetron HCl (Zofran Inj) 4 mg IVP Q6H PRN PRN Reason: Nausea/Vomiting Pantoprazole Sodium (Protonix Inj) 40 mg IVP DAILY [facility] Last Admin: 07/05/18 09:08 Dose: 40 mg - Labs Labs: 07/05/18 07:00 07/05/18 07:00 PT 16.4 SECONDS (9.4-12.5) H 07/04/18 11:30 INR 1.45 07/04/18 11:30 APTT 26.5 Seconds (26.9-38.3) L 07/04/18 11:30 - Constitutional Appears: Non-toxic, No Acute Distress - Eye Exam Eye Exam: EOMI, PERRL - ENT Exam ENT Exam: Mucous Membranes Moist - Respiratory Exam Respiratory Exam: Rales. absent: Clear to Ausculation Bilateral, Rhonchi, Wheezes - Cardiovascular Exam Cardiovascular Exam: RRR, +S1, +S2 - GI/Abdominal Exam GI & Abdominal Exam: Soft, Normal Bowel Sounds. absent: Distended, Firm, Guarding, Rigid, Tenderness, Organomegaly - Extremities Exam Extremities Exam: Normal Inspection. absent: Pedal Edema - Neurological Exam Neurological Exam: Alert, Awake, Oriented x3 - Psychiatric Exam Psychiatric exam: Normal Affect, Normal Mood - Skin Skin Exam: Dry, Warm Assessment and Plan - Assessment and Plan (Free Text) Assessment: Patient is an 82yo female with PMHx significant for Atrial fibrillation (on apix aban), CAD, CHF, HTN, DM, COPD,renal malignancy s/p right nephrectomy, lung cancer, PUD, duodenal and colonicAVMsandanxiety who presented to the ED with leg pain -B/L LE pain -Chronic microcytic anemia -Hyperbilirubinemia Plan: -S/P 2 units PRBCs with more than adequate response in HGB (5.5 --> 9.4) -No evidence for overt acute gastrointestinal hemorrhage -No plan for endoscopic intervention at this juncture -Advance diet as tolerated -Possible mild volume overload s/p 2 units PRBCs -Would avoid further transfusion at this time and monitor CBC -Hyperbilirubinemia noted s/p transfusion - check direct bilirubin - if indirect, consider hemolysis (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) -Supportive care -Consider hematology evaluation <Jt Quintana - Last Filed: 07/05/18 12:11> Objective - Vital Signs/Intake and Output Vital Signs (last 24 hours): Temp Pulse Resp BP Pulse Ox 98.1 F 71 20 116/63 100 07/05/18 06:00 07/05/18 10:30 07/05/18 09:13 07/05/18 09:13 07/05/18 09:13 Intake and Output: 07/05/18 07/05/18 06:59 18:59 Intake Total 660 Output Total 800 Balance -140 - Medications Medications: Current Medications Acetaminophen (Tylenol 325mg Tab) 650 mg PO Q4H PRN PRN Reason: Pain, moderate (4-7) Last Admin: 07/05/18 09:08 Dose: 650 mg Albuterol/Ipratropium (Duoneb 3 Mg/0.5 Mg (3 Ml) Ud) 3 ml IH Q6 PRN PRN Reason: Shortness of Breath Last Admin: 07/05/18 10:32 Dose: 3 ml Alprazolam (Xanax) 0.25 mg PO TID PRN; Protocol PRN Reason: Anxiety Stop: 07/12/18 09:54 Last Admin: 07/05/18 10:15 Dose: 0.25 mg Diltiazem HCl (Cardizem Cd) 180 mg PO DAILY [facility] Last Admin: 07/05/18 09:06 Dose: 180 mg Furosemide (Lasix) 20 mg IVP DAILY [facility] Last Admin: 07/05/18 09:07 Dose: 20 mg Metoprolol Tartrate (Lopressor) 25 mg PO BID [facility] Last Admin: 07/05/18 09:07 Dose: 25 mg Ondansetron HCl (Zofran Inj) 4 mg IVP Q6H PRN PRN Reason: Nausea/Vomiting Pantoprazole Sodium (Protonix Inj) 40 mg IVP DAILY [facility] Last Admin: 07/05/18 09:08 Dose: 40 mg - Labs Labs: 07/05/18 07:00 07/05/18 07:00 PT 16.4 SECONDS (9.4-12.5) H 07/04/18 11:30 INR 1.45 07/04/18 11:30 APTT 26.5 Seconds (26.9-38.3) L 07/04/18 11:30 Attending/Attestation - Attestation I have fully participated in the care of the patient.: Yes I have reviewed all pertinent clinical information, including history, physical exam and plan: Yes Notes (Text): 07/05/18 12:07 Atrial fibrillation on eliquis CHF DM/HTN COPD Anemia History of renal and lung malignancy - Advance diet as tolerated - H/H stable, s/p PRBC transfusion continue to monitor - Indirect hyperbilirubinemia, can be seen following blood product transfusion in setting of valvular heart disease - Continue with supportive care, observation - No planned GI intervention, patient will benefit from additional outpatient follow up. Will continue to monitor patient clinical course.
--- NOTE | 2018-07-05 11:41 | PN ---
DATE: 07/05/2018 SUBJECTIVE: She is resting comfortably in bed. She slept fairly well. She is in fairly good spirits this morning. She had a few transfusions yesterday for hemoglobin in 5. She is feeling a bit stronger,planning for physical therapy to see her, Cardiology to see her, Hematology to see her. GI already saw her. She is on diltiazem, DuoNebs, Lasix IV, metoprolol, Protonix IV, Tylenol, Xanax, and Zofran. PHYSICAL EXAMINATION: VITAL SIGNS: She has a 98.1 temperature, 63 pulse, 135/75 blood pressure, 21 respiratory rate, 100% O2 sat on nasal cannula. HEENT: Head is atraumatic, normocephalic. HEART: Regular rate. LUNGS: Clear to auscultation. ABDOMEN: Soft. EXTREMITIES: No edema. LABORATORY DATA: She has a white count of 7.3, hemoglobin 9.4, hematocrit 31, platelets of 247. She has a 146 sodium, potassium 4, BUN 37, creatinine 1.8, GFR is 27, sugars 91, calcium 9, total bili is 1.4, AST is 23, ALT is 12, alk phos Troponin I is 0.04. BNP is 4190. ASSESSMENT AND PLAN: She is getting Lasix IV. We will see what Cardiology and Hematology says. We are going to check her stools for blood again. She is on liquid diet as per Gastroenterology, physical therapy, and we will continue aggressive treatment and care. Hopefully, the hemoglobin, we will hold and we held the tramadol. Marco Farris DO [facility]
--- NOTE | 2018-07-05 12:45 | CP.PCM.PCO ---
Additional Comments - Additional Comments Additional Comments: symptomatic anemia s/p 2UPRBC's, continue lasix 20mg IVP daily, cardiology consult pending, hematology/oncology consult pending, PT eval pending.
[2018-07-06 07:24] LABS: HEMOGLOBIN 9.3 g/dL (12.0-16.0); MEAN CELL VOLUME 75.7 fl (80.0-105.0); MEAN CORPUSCULAR HEMOGLOBIN 22.9 pg (25.0-35.0); MEAN CORPUSCULAR HGB CONC 30.2 g/dl (31.0-37.0); MEAN PLATELET VOLUME 9.7 fl (7.0-11.0); RBC 4.07 10^6/uL (3.5-6.1); RED CELL DISTRIBUTION WIDTH 20.8 % (11.5-14.5); WHITE BLOOD COUNT 7.7 10^3/uL (4.5-11.0)
[2018-07-06 07:56] LABS: ALB/GLOB RATIO 0.9 (1.1-1.8); ALBUMIN 3.7 g/dL (3.0-4.8); CALCIUM 9.1 mg/dL (8.4-10.5)
[2018-07-06 08:31] LABS: IRON 21 ug/dL (45-180)
[2018-07-06 08:41] LABS: % IRON SATURATION 5 % (20-55); TOTAL IRON BINDING CAPACITY 389 ug/dL (265-497)
[2018-07-06] MEDS: diltiaZEM 180 mg/24 Hours CD Cap PO SCH (09:58)
--- NOTE | 2018-07-06 11:38 | CP.PCM.PN ---
<Roger Corbin - Last Filed: 07/06/18 13:20> Subjective - Date & Time of Evaluation Date of Evaluation: 07/06/18 Time of Evaluation: 10:00 - Subjective Subjective: PGY6 GI Fellow Progress Note Patient seen and examined bedside this morning. The patient states she is feeling well and has no complaints today. No episodes of overt bleeding. No events overnight. 12 system ROS performed and negative except where stated Objective - Vital Signs/Intake and Output Vital Signs (last 24 hours): Temp Pulse Resp BP Pulse Ox 98.1 F 79 19 142/69 100 07/06/18 06:00 07/06/18 09:58 07/06/18 06:00 07/06/18 09:58 07/06/18 06:00 Intake and Output: 07/06/18 07/06/18 06:59 18:59 Intake Total 360 Output Total 2 Balance 358 - Medications Medications: Current Medications Acetaminophen (Tylenol 325mg Tab) 650 mg PO Q4H PRN PRN Reason: Pain, moderate (4-7) Last Admin: 07/06/18 00:54 Dose: 650 mg Albuterol/Ipratropium (Duoneb 3 Mg/0.5 Mg (3 Ml) Ud) 3 ml IH Q6 PRN PRN Reason: Shortness of Breath Last Admin: 07/05/18 10:32 Dose: 3 ml Alprazolam (Xanax) 0.25 mg PO TID PRN; Protocol PRN Reason: Anxiety Stop: 07/12/18 09:54 Last Admin: 07/05/18 10:15 Dose: 0.25 mg Diltiazem HCl (Cardizem Cd) 180 mg PO DAILY [facility] Last Admin: 07/06/18 09:58 Dose: 180 mg Metoprolol Tartrate (Lopressor) 25 mg PO BID [facility] Last Admin: 07/06/18 09:58 Dose: 25 mg Ondansetron HCl (Zofran Inj) 4 mg IVP Q6H PRN PRN Reason: Nausea/Vomiting Pantoprazole Sodium (Protonix Ec Tab) 40 mg PO ACB [facility] - Labs Labs: 07/06/18 07:00 07/06/18 07:00 PT 16.4 SECONDS (9.4-12.5) H 07/04/18 11:30 INR 1.45 07/04/18 11:30 APTT 26.5 Seconds (26.9-38.3) L 07/04/18 11:30 - Constitutional Appears: Non-toxic, No Acute Distress - Eye Exam Eye Exam: EOMI, PERRL - ENT Exam ENT Exam: Mucous Membranes Moist - Respiratory Exam Respiratory Exam: Clear to Ausculation Bilateral. absent: Rales, Rhonchi, Wheezes - Cardiovascular Exam Cardiovascular Exam: RRR, +S1, +S2 - GI/Abdominal Exam GI & Abdominal Exam: Soft, Normal Bowel Sounds. absent: Distended, Firm, Guarding, Rigid, Tenderness, Organomegaly - Extremities Exam Extremities Exam: Normal Inspection. absent: Pedal Edema - Neurological Exam Neurological Exam: Alert, Awake, Oriented x3 - Psychiatric Exam Psychiatric exam: Normal Affect, Normal Mood - Skin Skin Exam: Dry, Warm Assessment and Plan - Assessment and Plan (Free Text) Assessment: Patient is an 82yo female with PMHx significant for Atrial fibrillation (on apixaban), CAD, CHF, HTN, DM, COPD,renal malignancy s/p right nephrectomy, lung cancer, PUD, duodenal and colonicAVMsandanxiety who presented to the ED with leg pain -B/L LE pain -Chronic microcytic anemia -Hyperbilirubinemia Plan: -HGB stable with no evidence for acute GI bleeding since admission -No plan for endoscopic intervention at this juncture -Diet as tolerated -Monitor CBC -Indirect hyperbilirubinemia noted in the setting of known valuvular disease s/p transfusion -Supportive care -Hematology consultation was placed -No further recommendations at this juncture <Jt Quintana - Last Filed: 07/06/18 16:27> Objective - Vital Signs/Intake and Output Vital Signs (last 24 hours): Temp Pulse Resp BP Pulse Ox 98 F 86 20 152/90 H 100 07/06/18 12:00 07/06/18 12:00 07/06/18 12:00 07/06/18 12:00 07/06/18 06:00 Intake and Output: 07/06/18 07/06/18 06:59 18:59 Intake Total 360 Output Total 2 Balance 358 - Medications Medications: Current Medications Acetaminophen (Tylenol 325mg Tab) 650 mg PO Q4H PRN PRN Reason: Pain, moderate (4-7) Last Admin: 07/06/18 00:54 Dose: 650 mg Albuterol/Ipratropium (Duoneb 3 Mg/0.5 Mg (3 Ml) Ud) 3 ml IH Q6 PRN PRN Reason: Shortness of Breath Last Admin: 07/05/18 10:32 Dose: 3 ml Alprazolam (Xanax) 0.25 mg PO TID PRN; Protocol PRN Reason: Anxiety Stop: 07/12/18 09:54 Last Admin: 07/06/18 14:02 Dose: 0.25 mg Diltiazem HCl (Cardizem Cd) 180 mg PO DAILY [facility] Last Admin: 07/06/18 09:58 Dose: 180 mg Lorazepam (Ativan) 0.5 mg IVP Q6H PRN; Protocol PRN Reason: Anxiety Metoprolol Tartrate (Lopressor) 25 mg PO BID [facility] Last Admin: 07/06/18 09:58 Dose: 25 mg Ondansetron HCl (Zofran Inj) 4 mg IVP Q6H PRN PRN Reason: Nausea/Vomiting Pantoprazole Sodium (Protonix Ec Tab) 40 mg PO ACB [facility] - Labs Labs: 07/06/18 07:00 07/06/18 07:00 PT 16.4 SECONDS (9.4-12.5) H 07/04/18 11:30 INR 1.45 07/04/18 11:30 APTT 26.5 Seconds (26.9-38.3) L 07/04/18 11:30 Attending/Attestation - Attestation I have personally seen and examined this patient.: Yes I have fully participated in the care of the patient.: Yes I have reviewed all pertinent clinical information, including history, physical exam and plan: Yes Notes (Text): 07/06/18 16:23 I have seen and examined patient with GI fellow. No acute events overnight, she is seen sitting at bedside, appears comfortable. She denies abdominal pain, nausea, vomiting, fever/chills. Tolerating PO diet without difficulty. She had a bowel movement this morning which was light brown in color as per patient. Review of vitals from today are normal. Atrial fibrillation on eliquis CAD CHF HTN History of renal and lung cancer Lower extremity pain Anemia - Diet as tolerated - H/H stable, s/p PRBC transfusion, continue to monitor - Continue with PPI therapy - Follow up hematology recommendations - No evidence of overt GI bleeding noted, no planned intervention at this time. Suggest additional outpatient follow up. Will sign off case, please reconsult as necessary, thank you.
[2018-07-06 12:40] LABS: FERRITIN 24.8 ng/mL
--- NOTE | 2018-07-06 13:00 | PN ---
DATE: 07/06/2018 HEMATOLOGY EVALUATION SUBJECTIVE: An 82-year-old woman with severe anemia. She presents with hemoglobin of 5.5, hematocrit 19, and an MCV of 71. After transfusion, went up to hemoglobin 9.4, MCV 75. At this point, we will await further evaluation, avoid the iron studies, B12, and has started intravenous Venofer. The issue here is an iron deficiency anemia and GI bleed. We will await the GI evaluation. Jesse Barahona MD
--- NOTE | 2018-07-06 14:02 | PN ---
DATE: 07/06/2018 SUBJECTIVE: The physical therapy recommended TCU which is little bit unsteady before she goes home, not a bad idea. She is on Cardizem, DuoNebs. I am going to hold the Lasix, Lopressor, Protonix, Xanax and Zofran. She was transfused 2 units of packed red blood cells. She is eating okay, not great. PHYSICAL EXAMINATION VITAL SIGNS: She has 98.1 temp, 64 pulse, 129/68 blood pressure, 19 respiratory rate, and 100% O2 sat on nasal cannula. HEENT: Head is atraumatic and normocephalic. HEART: Regular rate. LUNGS: Decreased breath sounds. ABDOMEN: Soft. EXTREMITIES: No edema. LABORATORY DATA: SNEHAL says no acute bleed, although she dropped to 5.5 hemoglobin. After 2 transfusions, she is now 9.3 on hemoglobin, 7.7 white count, 30.8 hematocrit and 270 platelets. She goes to TCU tomorrow, we have a chance to find out if she is weak anymore. Sodium is 143, potassium is 4, BUN 37, creatinine 2, I will stop the Lasix. Sugar is 81, calcium is 9.1, total bili is 0.7. AST is 27, ALT is 8, alk phos 93, total protein is 7.6. She came in with 4190 BNP. SNEHAL saw her, awaiting for Cardiology to see her, and Dr. Barahona, skein spooler for anemia. We will see if he get her to TCU tomorrow. Marco Farris DO MTDD
--- NOTE | 2018-07-06 19:41 | CON ---
DATE: 07/06/2018 CARDIOLOGY CONSULTATION HISTORY: The patient is an 82-year-old woman, who presents with diffuse leg pain as well as shortness of breath. Currently, all these symptoms have resolved. PAST MEDICAL HISTORY: The patient's past medical history includes a history of normal LV function with an ejection fraction of 68%, documented by echocardiogram in 03/2018. She does have severe pulmonary hypertension. In addition, the patient suffers from severe COPD, treated with bronchodilators at home. In addition, the patient has chronic atrial fibrillation, in which she has been treated with diltiazem as well as a pacemaker for her rhythm. SOCIAL HISTORY: The patient lives at home. REVIEW OF SYSTEMS: A 14-point review of systems reviewed in detail. No cardiac symptomatology is noted. PHYSICAL EXAMINATION: VITAL SIGNS: Stable. Blood pressure 128/60, heart rate is in the 60s, which is paced. NECK: Negative JVD. LUNGS: Without rales. HEART: Reveals S1, S2. EXTREMITIES: Without edema. LABORATORY DATA: EKG reveals a paced rhythm. BUN and creatinine is 37 and 2. Hemoglobin is 9.3. IMPRESSION: 1. Dyspnea secondary to predominately right-sided congestive heart failure. 2. Severe pulmonary hypertension. 3. Chronic obstructive pulmonary disease. 4. Chronic atrial fibrillation with tachy-herminia syndrome, treated with Cardizem as well as a pacemaker. 5. Anemia. 6. Inability of anticoagulation given the history of bleeding. 7. Diffuse body aches, which is now resolved. PLAN: Given these findings, we will discontinue telemetry today. The patient is doing well. TCU evaluation has been ordered. Oswald Fonseca MD
[2018-07-06 21:48] VITALS: O2SAT 96
[2018-07-07 07:20] LABS: HEMOGLOBIN 8.8 g/dL (12.0-16.0); MEAN CELL VOLUME 75.2 fl (80.0-105.0); MEAN CORPUSCULAR HEMOGLOBIN 22.7 pg (25.0-35.0); MEAN CORPUSCULAR HGB CONC 30.2 g/dl (31.0-37.0); MEAN PLATELET VOLUME 9.3 fl (7.0-11.0); RBC 3.87 10^6/uL (3.5-6.1); RED CELL DISTRIBUTION WIDTH 21.6 % (11.5-14.5); WHITE BLOOD COUNT 10.6 10^3/uL (4.5-11.0)
[2018-07-07] MEDS ORDERED: Pantoprazole 40 mg EC Tab PO SCH (07:30)
[2018-07-07 07:39] VITALS: PULSE 80; RESP 19; TEMP 98.6
[2018-07-07 07:44] LABS: ALB/GLOB RATIO 0.9 (1.1-1.8); ALBUMIN 3.4 g/dL (3.0-4.8)
[2018-07-07 07:46] VITALS: BP 161/88
--- NOTE | 2018-07-07 09:13 | PQF ---
PROVIDER RESPONSE TEXT: As per gi iron def anemia REVIEWER QUERY TEXT: Documentation Clarification Physician?s Documentation Request This Form is Not a Permanent Document in the Medical Record Pt Name: YENIFER URBINA MR #: [id number] Payor: MEDICARE PART A Unit/Bed: [id number] Adm Date: 07/04/2018 12:57:00 PM Reviewer: Madalyn Hassan Ext. Query Date: 07/07/2018 9:07:22 AM Documentation Clarification [id number] By submitting this query, we are merely seeking further clarification of documentation to accurately reflect all conditions that you are monitoring, evaluating, treating or that extend the hospitalizati on or utilize additional resources of care. Please utilize your independent clinical judgment when ad dressing the question(s) below. Dear Doctor Marco Farris, The patient?s Clinical Indicators include: Patient admitted with severe anemia treated with blood transfusion. All consultants agree with iron deficiency anemia. Patient with hx PUD. GI notes no evidence of acute GI bleeding and will not proceed with any GI interventions. Hematology notes anemia likely 2/2 GI bleeding. Please clarify if the anemia is due to acute or chronic GI source, other. Your help is requested in clarifying the following clinical documentation, if you can please further specify in the medical record and discharge summary. PLEASE DOCUMENT ANY ADDITIONAL DIAGNOSES AND/OR SPECIFICITY IN THE PROGRESS NOTES AND/OR DISCHARGE EMANUEL MMARY. Clinically unable to determine/unknown Disagree with the above request Need to discuss Query created by: Madalyn Hassan on 07/07/2018 9:07 AM Electronically signed by: Marco Farris DO 07/07/2018 9:09 AM
[2018-07-07] MEDS: diltiaZEM 180 mg/24 Hours CD Cap PO SCH (10:14)
--- NOTE | 2018-07-07 12:37 | CON ---
DATE: 07/07/2018 HEMATOLOGY CONSULTATION HISTORY OF PRESENT ILLNESS: The patient is an 82-year-old woman with severe anemia. The patient has many medical problems and complicated medical past including nephrectomy due to lung disease, GI bleeding in the past secondary to AVMs. The patient came in with anemia. PHYSICAL EXAMINATION: SKIN: No petechiae. No bruises. No telangiectasia. HEENT: Anicteric. NODES: None palpable in the axillary, cervical, supraclavicular or inguinal regions. BREASTS: Shows no mass. LUNGS: Clear. The patient is able to lie flat on bed. HEART: S1 and S2. ABDOMEN: Shows no liver, no spleen, no tenderness, no ascites. EXTREMITIES: No edema. CENTRAL NERVOUS SYSTEM: No focal findings. ASSESSMENT AND PLAN: The ferritin was mildly elevated at 24, the iron saturation was low at and this would go along with symptoms of bleed causing the anemia. The patient was given an IV iron as well as 2 units of packed cells. Consider adding p.o. at first Fumarate which is a milder iron pill one tablet a day as an outpatient and be followed by her primary in terms of further bleeding. Evidently, GI is not going to be doing any procedures at this time on her and so at this point, she will need to be followed and I will add the p.o. iron upon discharge. Jesse Barahona MD
--- NOTE | 2018-07-08 00:48 | CON ---
DATE OF CONSULTATION: 07/07/2018 HISTORY OF PRESENT ILLNESS: In short, the patient is an 82-year-old female with history of hypertension, CHF, anxiety. The patient was admitted on the medical side for evaluation of shortness of breath and bilateral leg pain. Psych consult was called for evaluation of anxiety and possible hallucinations. The patient was seen and examined today. The patient presented to be alert. The patient knows that she is in the hospital. The patient is aware of what is the date today. At the same time, the patient appears to be distracted, difficult to stay focused and concentrate. The patient was looking for her cell phone. Whenever cell phone was found, the patient seemed to be disinterested. The patient after that was looking for her glasses. When this customs entry writer found her glasses, the patient seemed to be disinterested in classes as well. The patient denied hearing voices, denied seeing things, but obviously the patient had difficult to stay focused and concentrate. Based on RN report, the patient was agitated and restless yesterday. The patient got Haldol at 04:05 p.m. VITAL SIGNS: Reviewed. Temperature 98.6, pulse is 80, blood pressure 161/88, respirations 19, oxygen saturation is 96. MEDICATIONS: Reviewed. The patient is on Tylenol, Xanax three times a day as needed, Cardizem, Feosol, Ativan as needed, Lopressor 25 mg twice a day, Zofran and Protonix. LABS: Reviewed. Hemoglobin and hematocrit 8.8 and 29.1. Coagulation reviewed. Chemistry reviewed. Urinalysis reviewed. Microbiology reviewed. MENTAL STATUS EXAM: The patient presented to be alert. Mood described as okay. Affect was flat. Thought process seems to be circumstantial. The patient had difficulty to stay focused and concentrate. Thought content, the patient denied any hallucinations, but thought process was mildly disorganized. Insight and judgment seems to be limited. Impulses are well controlled. IMPRESSION: Most likely the patient is in delirium stage, which seems to be due to general medical condition. PLAN: Seroquel 12.5 mg at the nighttime as needed for psychosis. As per social work documentation, the patient is scheduled for subacute rehab. The patient needs to be seen by psychiatrist in subacute rehab within 48 hours. Family should be involved. Discussion about power of commonwealth attorney in the future needs to be in place. The patient posed no imminent danger to self or others. If the patient would be discharged, this customs entry writer will not follow up on her. If the patient would stay in the hospital, we will follow up on the patient. Should you have any questions, give me a call back. Clarita Rabago MD
--- NOTE | 2018-07-08 04:43 | DS ---
HISTORY OF PRESENT ILLNESS: I am not sure [facility] or home, waiting for acceptance. PHYSICAL EXAMINATION: GENERAL: She is very comfortable this morning, smiling, good appetite. VITAL SIGNS: She has 98.6 temperature, 80 pulse, 139/61 blood pressure, 19 respiratory rate, 96% O2 sat. HEENT: Head is atraumatic, normocephalic. HEART: Regular rate. LUNGS: Decreased breath sounds, but clear. ABDOMEN: Soft. EXTREMITIES: No edema. MEDICATIONS: She is on Ativan as needed, Cardizem, DuoNebs, Lopressor, Protonix, Tylenol, Xanax and Zofran. LABORATORY DATA: She has 10.6 white count, 8.8 hemoglobin, 29.1 hematocrit with a 257 platelets. Sodium 143, potassium 4.4, BUN 36, creatinine is 1.8, better. GFR is 27, sugar 72, calcium 9, total bili is 0.8. AST is 20, ALT is 10, alk phos 81. Urine has many bacteria. ASSESSMENT AND PLAN: She was seen by GI, Oncology,Hematology. Atrial fibrillation, on Eliquis, coronary artery disease, congestive heart failure, hypertension. Continue PPI therapy. No evidence of overt gastrointestinal bleeding was iron deficiency anemia. She has right-sided congestive heart failure, severe pulmonary hypertension. The catalogue maker will make sure it is iron deficiency anemia and I agree and hoping to discharge her to [facility] or to home. We will follow on house calls as needed. Marco Farris DO MTDD
--- NOTE | 2018-07-08 09:35 | CP.PCM.PCO ---
Physician Communication Note - Physician Communication Note Physician Communication Note: pt was d/c
== END 2018-07-07 18:36 | DRG 812 ==
LOC: ED 10:53 → ERH 12:57 → 2RSO 16:05 → 5RNO 07-06 12:41
PROVIDERS: ADMIT Family Medicine; ATTEND Family Medicine
PROC: 30233N1 Transfusion of Nonautologous Red Blood Cells into Peripheral Vein, Percutaneous Approach (ICD-10-PCS; principal; 2018-07-04)
DX: D50.9 Iron deficiency anemia, unspecified (principal); I13.0 Hypertensive heart and chronic kidney disease with heart failure and stage 1 through stage 4 chronic kidney disease, or unspecified chronic kidney disease; J44.9 Chronic obstructive pulmonary disease, unspecified; F03.90 Unspecified dementia, unspecified severity, without behavioral disturbance, psychotic disturbance, mood disturbance, and anxiety; F41.9 Anxiety disorder, unspecified; M79.604 Pain in right leg; M79.605 Pain in left leg; I27.29 Other secondary pulmonary hypertension; I48.2 Chronic atrial fibrillation; I25.10 Atherosclerotic heart disease of native coronary artery without angina pectoris; N18.9 Chronic kidney disease, unspecified; E11.22 Type 2 diabetes mellitus with diabetic chronic kidney disease; K21.9 Gastro-esophageal reflux disease without esophagitis; K55.20 Angiodysplasia of colon without hemorrhage; I50.810 Right heart failure, unspecified; Z85.528 Personal history of other malignant neoplasm of kidney; Z85.118 Personal history of other malignant neoplasm of bronchus and lung; Z79.01 Long term (current) use of anticoagulants; Z90.5 Acquired absence of kidney; Z95.0 Presence of cardiac pacemaker; Z87.891 Personal history of nicotine dependence